=== PATIENT | male | born 1950 | race Caucasian/White ===

== ENCOUNTER → 2017-07-07 11:23 | Outpatient (CLI) | payer MEDICARE, SELFPAY ==
[2017-07-07 11:42] LABS: Add Manual Diff / Slide Review NO; Basophils Percent Auto 0.2 % (0-2); Hematocrit 35.6 % (41-53); Hemoglobin 11.8 g/dL (13.5-17.5); Lymphocytes Percent Auto 7.7 % (25-40); Mean Corpuscular Hemoglobin 31.3 PG (26-34); Mean Corpuscular Volume 94.8 fL (80-100); Monocytes Percent Auto 4.4 % (3-14); Neutrophils Absolute Auto 8400 /uL (3000-5900); Neutrophils Percent Auto 87.7 % (50-75); Platelet Count 168 X10^3/uL (150-400); Red Blood Cell Count 3.76 X10^6/uL (4.5-5.9); Red Cell Distribution Width 15.6 % (11.6-14.8); White Blood Cell Count 9.6 X10^3/uL (4.5-11.0)
[2017-07-07 12:41] VITALS: BP 138/64; PULSE 99; RESP 18; TEMP 36.7; O2SAT 96
[2017-07-07] MEDS: DARBEPOETIN 60 MCG/0.3 ML SYRINGE SUBCUT (12:43)
== END ==
PROVIDERS: Family Provider Family Medicine; PCP Family Medicine; Visit Provider Internal Medicine Hematology & Oncology
DX: N18.4 Chronic kidney disease, stage 4 (severe) (principal); D63.1 Anemia in chronic kidney disease
CPT/HCPCS: 36415; 85025; 96372; J0881

== ENCOUNTER → 2017-07-14 11:22 | Outpatient (CLI) | payer MEDICARE, SELFPAY ==
[2017-07-14 11:43] LABS: Add Manual Diff / Slide Review NO; Basophils Percent Auto 0.2 % (0-2); Hematocrit 35.8 % (41-53); Hemoglobin 11.7 g/dL (13.5-17.5); Lymphocytes Percent Auto 5.2 % (25-40); Mean Corpuscular HGB Conc 32.8 % (30-36); Mean Corpuscular Hemoglobin 31.1 PG (26-34); Mean Corpuscular Volume 94.8 fL (80-100); Monocytes Percent Auto 4.7 % (3-14); Neutrophils Absolute Auto 11000 /uL (3000-5900); Neutrophils Percent Auto 89.9 % (50-75); Platelet Count 213 X10^3/uL (150-400); Red Blood Cell Count 3.78 X10^6/uL (4.5-5.9); Red Cell Distribution Width 15.7 % (11.6-14.8); White Blood Cell Count 12.3 X10^3/uL (4.5-11.0)
[2017-07-14 12:07] VITALS: BP 148/58; PULSE 95; RESP 18; TEMP 36.7; O2SAT 97
[2017-07-14] MEDS: DARBEPOETIN 60 MCG/0.3 ML SYRINGE SUBCUT (12:09)
== END ==
PROVIDERS: Family Provider Family Medicine; PCP Family Medicine; Visit Provider Internal Medicine Hematology & Oncology
DX: N18.4 Chronic kidney disease, stage 4 (severe) (principal); D63.1 Anemia in chronic kidney disease
CPT/HCPCS: 85025; 96372; J0881

== ENCOUNTER → 2017-07-21 11:17 | Outpatient (CLI) | payer MEDICARE, MEDICAID, SELFPAY ==
[2017-07-21 11:40] LABS: Add Manual Diff / Slide Review NO; Basophils Percent Auto 0.6 % (0-2); Hematocrit 36.9 % (41-53); Hemoglobin 12.2 g/dL (13.5-17.5); Lymphocytes Percent Auto 14.1 % (25-40); Mean Corpuscular Hemoglobin 31.8 PG (26-34); Mean Corpuscular Volume 96.3 fL (80-100); Monocytes Percent Auto 10.1 % (3-14); Neutrophils Absolute Auto 5100 /uL (3000-5900); Neutrophils Percent Auto 75.2 % (50-75); Platelet Count 165 X10^3/uL (150-400); Red Blood Cell Count 3.83 X10^6/uL (4.5-5.9); White Blood Cell Count 6.8 X10^3/uL (4.5-11.0)
--- NOTE | 2017-07-21 14:51 | PC.NURSE ---
No Aranesp today, Hgb 12.2. Patient will return to clinic in one week for lab/possible Aranesp injection.
== END ==
PROVIDERS: Family Provider Family Medicine; PCP Family Medicine; Visit Provider Internal Medicine Hematology & Oncology
DX: N28.9 Disorder of kidney and ureter, unspecified (principal); D63.1 Anemia in chronic kidney disease
CPT/HCPCS: 85025

== ENCOUNTER → 2017-07-28 11:21 | Outpatient (CLI) | payer MEDICARE, MEDICAID, SELFPAY ==
[2017-07-28 11:43] LABS: Add Manual Diff / Slide Review NO; Basophils Percent Auto 0.4 % (0-2); Hematocrit 36.2 % (41-53); Lymphocytes Percent Auto 6.7 % (25-40); Mean Corpuscular HGB Conc 33.1 % (30-36); Mean Corpuscular Hemoglobin 31.5 PG (26-34); Mean Corpuscular Volume 95.2 fL (80-100); Monocytes Percent Auto 4.2 % (3-14); Neutrophils Absolute Auto 4700 /uL (3000-5900); Neutrophils Percent Auto 88.7 % (50-75); Platelet Count 181 X10^3/uL (150-400); Red Blood Cell Count 3.81 X10^6/uL (4.5-5.9); Red Cell Distribution Width 16.3 % (11.6-14.8); White Blood Cell Count 5.3 X10^3/uL (4.5-11.0)
== END ==
PROVIDERS: Family Provider Family Medicine; PCP Family Medicine; Visit Provider Internal Medicine Hematology & Oncology
DX: D63.1 Anemia in chronic kidney disease (principal); N18.4 Chronic kidney disease, stage 4 (severe)
CPT/HCPCS: 85025

== ENCOUNTER → 2017-08-04 11:22 | Outpatient (CLI) | payer MEDICARE, SELFPAY ==
[2017-08-04 11:36] LABS: Add Manual Diff / Slide Review NO; Basophils Percent Auto 0.6 % (0-2); Eosinophils Percent Auto 0.2 % (2-4); Hematocrit 35.6 % (41-53); Hemoglobin 11.9 g/dL (13.5-17.5); Lymphocytes Percent Auto 10.8 % (25-40); Mean Corpuscular HGB Conc 33.5 % (30-36); Mean Corpuscular Hemoglobin 32.1 PG (26-34); Mean Corpuscular Volume 95.8 fL (80-100); Monocytes Percent Auto 4.9 % (3-14); Neutrophils Absolute Auto 7200 /uL (3000-5900); Neutrophils Percent Auto 83.5 % (50-75); Platelet Count 237 X10^3/uL (150-400); Red Blood Cell Count 3.72 X10^6/uL (4.5-5.9); Red Cell Distribution Width 16.1 % (11.6-14.8); White Blood Cell Count 8.6 X10^3/uL (4.5-11.0)
[2017-08-04] MEDS: DARBEPOETIN 60 MCG/0.3 ML SYRINGE SUBCUT (12:02)
[2017-08-04 12:11] VITALS: BP 148/57; PULSE 101; RESP 16; TEMP 37.2; O2SAT 96
== END ==
PROVIDERS: Family Provider Family Medicine; PCP Family Medicine; Visit Provider Internal Medicine Hematology & Oncology
DX: N18.4 Chronic kidney disease, stage 4 (severe) (principal); D63.1 Anemia in chronic kidney disease
CPT/HCPCS: 36415; 85025; 96372; J0881

== ENCOUNTER → 2017-08-11 11:20 | Outpatient (CLI) | payer MEDICARE, SELFPAY ==
[2017-08-11 11:52] LABS: Add Manual Diff / Slide Review YES; Hematocrit 35.1 % (41-53); Hemoglobin 11.5 g/dL (13.5-17.5); Mean Corpuscular HGB Conc 32.9 % (30-36); Mean Corpuscular Volume 97.3 fL (80-100); Platelet Count 233 X10^3/uL (150-400); Red Blood Cell Count 3.61 X10^6/uL (4.5-5.9); Red Cell Distribution Width 16.5 % (11.6-14.8); White Blood Cell Count 9.7 X10^3/uL (4.5-11.0)
[2017-08-11 12:04] LABS: Neutrophils Absolute Manual 8439 /uL (3000-5900); RBC Morphology Normal Morphology; Total Cells Counted 100
[2017-08-11] MEDS: DARBEPOETIN 60 MCG/0.3 ML SYRINGE SUBCUT (12:32)
[2017-08-11 12:39] VITALS: BP 127/75; PULSE 90; RESP 16; TEMP 37.7; O2SAT 94
== END ==
PROVIDERS: Family Provider Family Medicine; PCP Family Medicine; Visit Provider Internal Medicine Hematology & Oncology
DX: N18.4 Chronic kidney disease, stage 4 (severe) (principal); D63.1 Anemia in chronic kidney disease; F32.9 Major depressive disorder, single episode, unspecified
CPT/HCPCS: 85025; 96372; J0881

== ENCOUNTER → 2017-08-18 11:19 | Outpatient (CLI) | payer MEDICARE, MEDICAID, SELFPAY ==
[2017-08-18 11:39] LABS: Add Manual Diff / Slide Review NO; Basophils Percent Auto 0.3 % (0-2); Eosinophils Percent Auto 0.1 % (2-4); Hematocrit 38.7 % (41-53); Hemoglobin 12.8 g/dL (13.5-17.5); Lymphocytes Percent Auto 4.9 % (25-40); Mean Corpuscular HGB Conc 33.1 % (30-36); Mean Corpuscular Hemoglobin 32.4 PG (26-34); Mean Corpuscular Volume 97.9 fL (80-100); Monocytes Percent Auto 4.2 % (3-14); Neutrophils Absolute Auto 8900 /uL (3000-5900); Neutrophils Percent Auto 90.5 % (50-75); Platelet Count 180 X10^3/uL (150-400); Red Blood Cell Count 3.95 X10^6/uL (4.5-5.9); White Blood Cell Count 9.8 X10^3/uL (4.5-11.0)
== END ==
PROVIDERS: Family Provider Family Medicine; PCP Family Medicine; Visit Provider Internal Medicine Hematology & Oncology
DX: N18.4 Chronic kidney disease, stage 4 (severe) (principal)
CPT/HCPCS: 85025

== ENCOUNTER → 2017-08-25 11:19 | Outpatient (CLI) | payer MEDICARE, MEDICAID, SELFPAY ==
[2017-08-25 11:35] LABS: Add Manual Diff / Slide Review NO; Basophils Percent Auto 0.4 % (0-2); Eosinophils Percent Auto 0.1 % (2-4); Hematocrit 38.1 % (41-53); Hemoglobin 12.4 g/dL (13.5-17.5); Lymphocytes Percent Auto 5.2 % (25-40); Mean Corpuscular HGB Conc 32.7 % (30-36); Mean Corpuscular Hemoglobin 32.6 PG (26-34); Mean Corpuscular Volume 99.8 fL (80-100); Monocytes Percent Auto 3.3 % (3-14); Neutrophils Absolute Auto 7800 /uL (3000-5900); Platelet Count 165 X10^3/uL (150-400); Red Blood Cell Count 3.82 X10^6/uL (4.5-5.9); Red Cell Distribution Width 16.3 % (11.6-14.8); White Blood Cell Count 8.6 X10^3/uL (4.5-11.0)
== END ==
PROVIDERS: Family Provider Family Medicine; PCP Family Medicine; Visit Provider Internal Medicine Hematology & Oncology
DX: N18.4 Chronic kidney disease, stage 4 (severe) (principal)
CPT/HCPCS: 85025

== ENCOUNTER → 2017-09-01 11:21 | Outpatient (CLI) | payer MEDICARE, MEDICAID, SELFPAY ==
[2017-09-01 11:33] LABS: Add Manual Diff / Slide Review NO; Basophils Percent Auto 0.6 % (0-2); Eosinophils Percent Auto 0.4 % (2-4); Hematocrit 38.4 % (41-53); Hemoglobin 12.6 g/dL (13.5-17.5); Lymphocytes Percent Auto 6.6 % (25-40); Mean Corpuscular HGB Conc 32.9 % (30-36); Mean Corpuscular Hemoglobin 32.6 PG (26-34); Monocytes Percent Auto 4.5 % (3-14); Neutrophils Absolute Auto 8800 /uL (3000-5900); Neutrophils Percent Auto 87.9 % (50-75); Platelet Count 214 X10^3/uL (150-400); Red Blood Cell Count 3.88 X10^6/uL (4.5-5.9)
== END ==
PROVIDERS: Family Provider Family Medicine; PCP Family Medicine; Visit Provider Internal Medicine Hematology & Oncology
DX: N18.4 Chronic kidney disease, stage 4 (severe) (principal)
CPT/HCPCS: 85025

== ENCOUNTER → 2017-09-08 11:23 | Outpatient (CLI) | payer MEDICARE, MEDICAID, SELFPAY ==
[2017-09-08 11:35] LABS: Add Manual Diff / Slide Review NO; Basophils Percent Auto 0.5 % (0-2); Eosinophils Percent Auto 0.2 % (2-4); Hematocrit 38.6 % (41-53); Hemoglobin 12.6 g/dL (13.5-17.5); Lymphocytes Percent Auto 6.2 % (25-40); Mean Corpuscular HGB Conc 32.7 % (30-36); Mean Corpuscular Hemoglobin 32.5 PG (26-34); Mean Corpuscular Volume 99.4 fL (80-100); Monocytes Percent Auto 3.5 % (3-14); Neutrophils Absolute Auto 10000 /uL (3000-5900); Neutrophils Percent Auto 89.6 % (50-75); Platelet Count 210 X10^3/uL (150-400); Red Blood Cell Count 3.89 X10^6/uL (4.5-5.9); Red Cell Distribution Width 16.2 % (11.6-14.8); White Blood Cell Count 11.2 X10^3/uL (4.5-11.0)
--- NOTE | 2017-09-08 11:41 | PC.NURSE ---
Noted hgb 12.6. Does not need Aranesp shot today. Parameter is to give injection if hgb > 12.
== END ==
PROVIDERS: Family Provider Family Medicine; PCP Family Medicine; Visit Provider Internal Medicine Hematology & Oncology
DX: N18.4 Chronic kidney disease, stage 4 (severe) (principal); D63.1 Anemia in chronic kidney disease
CPT/HCPCS: 36415; 85025

== ENCOUNTER → 2017-09-15 12:51 | Outpatient (CLI) | payer MEDICARE, SELFPAY ==
[2017-09-15 13:05] LABS: Add Manual Diff / Slide Review NO; Basophils Percent Auto 0.3 % (0-2); Eosinophils Percent Auto 0.6 % (2-4); Hematocrit 36.5 % (41-53); Hemoglobin 12.2 g/dL (13.5-17.5); Lymphocytes Percent Auto 8.7 % (25-40); Mean Corpuscular HGB Conc 33.5 % (30-36); Mean Corpuscular Hemoglobin 32.7 PG (26-34); Mean Corpuscular Volume 97.9 fL (80-100); Monocytes Percent Auto 8.4 % (3-14); Neutrophils Absolute Auto 7900 /uL (3000-5900); Platelet Count 187 X10^3/uL (150-400); Red Blood Cell Count 3.73 X10^6/uL (4.5-5.9); Red Cell Distribution Width 15.7 % (11.6-14.8); White Blood Cell Count 9.6 X10^3/uL (4.5-11.0)
[2017-09-15 13:23] VITALS: BP 144/81; PULSE 100; RESP 18; TEMP 36.1; O2SAT 94
--- NOTE | 2017-09-15 13:55 | ONC.APRN.PN ---
Assessment and Plan (1) Anemia associated with chronic renal failure Current visit: No Status: Acute 09/15/17 14:03 Cristóbal is a 66-year-old male who we follow in this clinic for anemia due to chronic kidney disease, stage IV. CBC today demonstrates a Hemoglobin 12.2 today, no indication for darbepoetin. Iron profile February of 2017 did not identify any iron deficiency. Advised the patient to call primary care provider Dr. Quintana to clarify prednisone order. He is reporting facial edema and new skin rash likely associated with prednisone. RTC in 3 weeks for cbc nurse visit , darbopoetin for hemoglobin less than 12.0. - Time Spent with Patient 35 mins PN -Subjective Interval history: DENTIFICATION: Mr. Tubbs is a 66-year-old gentleman with anemia secondary to chronic renal insufficiency. Currently on treatment with darbepoetin. INTERVAL HISTORY: He returns to clinic alone today. Was last seen here by Dr. Barber on 06/23/2017. He started on treatment with darbepoetin 04/20/2017 and so far has tolerated treatment well, he says. He denies any new chest pain, chest tightness, dyspnea, or headaches. He has been receiving treatment weekly and notes improvement in his overall energy and sense of well-being since starting the medication. He has some other chronic issues including DM II, neck pain, mild, secondary to an old traumatic injury; also peripheral edema and is followed closely for his other health issues by his primary physician, Dr. Quintana.Recently prescribed intermediate card tender prednisone for leg twitching Cristóbal reports some face swelling recently. Also reports increased energy level since starting prednisone. He seems to be fairly certain Dr Quintana prescribed prednisone 20mg daily for leg twitching. Cristóbal reports this has been effective for leg twitching. He also reports a new rash on his arms, not painful not itching. Closed. First noticed a week or so ago. Currently in PT for chronic pain and mobility issues. Denies chest pain, shortness of breath. No headaches. No new pain. Past Medical History The patient's past medical history is significant for: Stage IV chronic kidney disease Diabetes II using well controlled Chronic pain on narcotic dependence Hypertension Status post neck fracture with repair hardware still in place Status post perforation of bowel repaired with excision of a portion of colon Status post thoracic spine repair BPH with obstruction Obesity Results - Labs 09/15/17 13:01 Laboratory Last Values WBC 9.6 X10^3/uL (4.5-11.0) 09/15/17 13:01 RBC 3.73 X10^6/uL (4.5-5.9) L 09/15/17 13:01 Hgb 12.2 g/dL (13.5-17.5) L 09/15/17 13:01 Hct 36.5 % (41-53) L 09/15/17 13:01 MCV 97.9 fL (80-100) 09/15/17 13:01 MCH 32.7 PG (26-34) 09/15/17 13:01 MCHC 33.5 % (30-36) 09/15/17 13:01 RDW 15.7 % (11.6-14.8) H 09/15/17 13:01 Plt Count 187 X10^3/uL (150-400) 09/15/17 13:01 Neut % (Auto) 82.0 % (50-75) H 09/15/17 13:01 Lymph % (Auto) 8.7 % (25-40) L 09/15/17 13:01 [place] % (Auto) 8.4 % (3-14) 09/15/17 13:01 Eos % (Auto) 0.6 % (2-4) L 09/15/17 13:01 Baso % (Auto) 0.3 % (0-2) 09/15/17 13:01 Neut # (Auto) 7900 /uL ([id number]) H 09/15/17 13:01 - Imaging Additional studies: Procedures Closure of skin and subcutaneous tissue of other sites (08/29/13) Colonoscopy (06/05/13) Control Bleeding in Gastrointestinal Tract, Via Natural or Artificial Opening Endoscopic (08/26/16) Injection or infusion of other therapeutic or prophylactic substance (03/23/13) Other endoscopy of small intestine (06/05/13) Other nonoperative respiratory measurements (06/09/11) Total knee replacement (04/09/14) Transfusion of Nonautologous Red Blood Cells into Peripheral Vein, Percutaneous Approach (08/26/16) Transfusion of packed cells (07/09/13) Home Medications and Allergies Home Medications Medication Instructions Recorded Confirmed Type citalopram 20 mg PO QDAY #60 tab 08/31/16 Rx losartan 25 mg PO QDAY #60 08/31/16 Rx doxazosin 4 mg PO QDAY #0 01/18/17 History furosemide SEE INSTRUCTIONS #0 01/18/17 History glipizide 5 mg PO BIDAC #0 01/18/17 History hydrocodone-acetaminophen 1 - 2 tab PO PRN PRN #0 01/18/17 History prednisone 20 mg PO Q DAY #5 tab 05/01/17 Rx Allergies Allergy/AdvReac Type Severity Reaction Status Date / Time latex Allergy Mild IRRITATION Unverified 06/14/17 13:06 Sulfa (Sulfonamide AdvReac Mild N&V 1HOUR Unverified 06/14/17 13:06 Antibiotics) AFTER RX, THINKS IT IS RELATED Exam Vital signs: Last Vital Signs Temp 97 F L 09/15/17 13:23 Pulse 100 H 09/15/17 13:23 Resp 18 09/15/17 13:23 BP 144/81 H 09/15/17 13:23 Pulse Ox 94 09/15/17 13:23 Narrative: non toxic appearing, chronically ill appearing - Constitutional positive no acute distress, positive morbidly obese - Routine HEENT Exam Head: Present: cushingoid faces Eye: Present: conjunctivae pink. Absent: conjunctival icterus, scleral injection ENT: Present: mucous membranes moist, oropharynx clear - Routine Neck Exam Present: supple. Absent: lymphadenopathy - Routine Respiratory Exam Present: decreased breath sounds. Absent: rales, rhonchi, wheezes - Routine Cardiovascular Exam Present: RRR, S1, S2. Absent: tachycardia - Routine Abdominal Exam Present: soft, normoactive bowel sounds. Absent: tenderness, distended, organomegaly Comments: obese abdomen - Routine Extremities Exam Present: edema. Absent: calf tenderness Comments: symmetric bilateral lower ext edema. Per pt chronic - Routine Skin Exam Present: intact, normal turgor, rash. Absent: petechiae - Routine Neurological Exam Present: alert, oriented X3 - Routine Psychiatric Exam Present: normal affect
== END ==
PROVIDERS: Internal Medicine Hematology & Oncology; Family Provider Family Medicine; PCP Family Medicine; Visit Provider Internal Medicine Hematology & Oncology
DX: N18.4 Chronic kidney disease, stage 4 (severe) (principal); D63.1 Anemia in chronic kidney disease
CPT/HCPCS: 85025; 99214

== ENCOUNTER → 2017-10-26 14:35 | Outpatient (CLI) | payer MEDICARE, SELFPAY ==
[2017-10-26 14:58] LABS: Add Manual Diff / Slide Review NO; Basophils Percent Auto 0.4 % (0-2); Eosinophils Percent Auto 1.1 % (2-4); Hematocrit 29.5 % (41-53); Hemoglobin 10.1 g/dL (13.5-17.5); Lymphocytes Percent Auto 11.6 % (25-40); Mean Corpuscular HGB Conc 34.2 % (30-36); Mean Corpuscular Hemoglobin 34.7 PG (26-34); Mean Corpuscular Volume 101.6 fL (80-100); Monocytes Percent Auto 7.9 % (3-14); Neutrophils Absolute Auto 5600 /uL (3000-5900); Platelet Count 249 X10^3/uL (150-400); Red Cell Distribution Width 15.4 % (11.6-14.8); White Blood Cell Count 7.1 X10^3/uL (4.5-11.0)
[2017-10-26 15:11] LABS: Alanine Aminotransferase 22 IU/L (21-72); Albumin 4.1 g/dL (3.5-5.0); Albumin Globulin Ratio 1.7 (1.0-2.8); Alkaline Phosphatase 66 U/L (38-126); Aspartate Aminotransferase 44 IU/L (17-59); BUN Creatinine Ratio 20.4 (6-22); Bilirubin Total 0.7 mg/dL (0.2-1.3); Blood Urea Nitrogen 49 mg/dL (9-20); Calcium 9.1 mg/dL (8.4-10.2); Carbon Dioxide 29 mmol/L (22-32); Chloride 92 mmol/L (98-107); Estimated Glomerular Filt Rate 27.3 mL/min (>60); Globulin 2.4 g/dL (1.7-4.1); Glucose 130 mg/dL (80-110); HEMOLYSIS < 15 (0-50); Potassium 4.2 mmol/L (3.4-5.1); Sodium 134 mmol/L (137-145); Total Protein 6.5 g/dL (6.3-8.2)
--- NOTE | 2017-10-26 15:15 | P.PNONC_ITS ---
Assessment and Plan (1) Anemia associated with chronic renal failure Current visit: No Status: Acute 10/26/17 15:15 Cristóbal is a very pleasant chronically disabled 66-year-old male with progressive normochromic normocytic anemia due to chronic renal insufficiency. He has been receiving Aranesp injections in this clinic since April of 2017. Since receiving the injections the pt reports he is definitely feeling better and I have more energy. Thus far he has received 60 mg July 07, July 14, July 21, August 04, August 11, October 05, 2017. Hemoglobin was greater than 12 until visit October 05, 2017 where it dropped to 10.5. Today CBC demonstrates hemoglobin of 10.1 hematocrit of 29.5. Creatinine 2.4 which is the patient's baseline. The patient will received carboplatin 60 mg subcutaneous today. We will continue with weekly darbopoeitin injections SQ 60mg for HGB <12.0 CBC every other week per pt request. RTC in 4 weeks for provider visit cbc cmp. Patient verbalizes understanding and agrees with the above plan of care. 10/26/17 15:40 PN -Subjective Interval history: The patient is a 66 year old Male who is being seen in the clinic 10/26/2017 for evaluation of progressive normochromic normocytic anemia due to chronic renal insufficiency. He has been receiving Aranesp injections in this clinic since April of 2017. Since receiving the injections the pt reports he is definitely feeling better and I have more energy. Thus far he has received 60 mg July 07, July 14, July 21, August 04, August 11, October 05, 2017. Hemoglobin was greater than 12 until visit October 05, 2017 where it dropped to 10.5. Otherwise no complaints. No chest pain, shortness of breath. No dizziness or lightheadedness. No unexplained bleeding or bruising. No blood noted in stool , no black or tarry stools. Patient does have comorbidities including type 2 diabetes, chronic neck pain secondary to old traumatic injury, history of chronic alcohol use, hypertension , obesity, peripheral neuropathy. Dr willard is PCP. Results - Labs Laboratory Last Values WBC 7.1 X10^3/uL (4.5-11.0) 10/26/17 14:46 RBC 2.90 X10^6/uL (4.5-5.9) L 10/26/17 14:46 Hgb 10.1 g/dL (13.5-17.5) L 10/26/17 14:46 Hct 29.5 % (41-53) L 10/26/17 14:46 MCV 101.6 fL (80-100) H 10/26/17 14:46 MCH 34.7 PG (26-34) H 10/26/17 14:46 MCHC 34.2 % (30-36) 10/26/17 14:46 RDW 15.4 % (11.6-14.8) H 10/26/17 14:46 Plt Count 249 X10^3/uL (150-400) 10/26/17 14:46 Neut % (Auto) 79.0 % (50-75) H 10/26/17 14:46 Lymph % (Auto) 11.6 % (25-40) L 10/26/17 14:46 [place] % (Auto) 7.9 % (3-14) 10/26/17 14:46 Eos % (Auto) 1.1 % (2-4) L 10/26/17 14:46 Baso % (Auto) 0.4 % (0-2) 10/26/17 14:46 Neut # (Auto) 5600 /uL ([id number]) 10/26/17 14:46 - Imaging Additional studies: Procedures Closure of skin and subcutaneous tissue of other sites (08/29/13) Colonoscopy (06/05/13) Control Bleeding in Gastrointestinal Tract, Via Natural or Artificial Opening Endoscopic (08/26/16) Injection or infusion of other therapeutic or prophylactic substance (03/23/13) Other endoscopy of small intestine (06/05/13) Other nonoperative respiratory measurements (06/09/11) Total knee replacement (04/09/14) Transfusion of Nonautologous Red Blood Cells into Peripheral Vein, Percutaneous Approach (08/26/16) Transfusion of packed cells (07/09/13) Home Medications and Allergies Home Medications Medication Instructions Recorded Confirmed Type citalopram 20 mg PO QDAY #60 tab 08/31/16 Rx losartan 25 mg PO QDAY #60 08/31/16 Rx doxazosin 4 mg PO QDAY #0 01/18/17 History furosemide SEE INSTRUCTIONS #0 01/18/17 History glipizide 5 mg PO BIDAC #0 01/18/17 History hydrocodone-acetaminophen 1 - 2 tab PO PRN PRN #0 01/18/17 History Allergies Allergy/AdvReac Type Severity Reaction Status Date / Time latex Allergy Mild IRRITATION Unverified 06/14/17 13:06 Sulfa (Sulfonamide AdvReac Mild N&V 1HOUR Unverified 06/14/17 13:06 Antibiotics) AFTER RX, THINKS IT IS RELATED Exam - Constitutional positive no acute distress, positive obese, positive chronically ill appearing - Routine HEENT Exam Head: Present: normocephalic, atraumatic Eye: Present: conjunctivae pink. Absent: conjunctival icterus, scleral injection - Routine Respiratory Exam Present: Clear to auscultation bilaterally, decreased breath sounds. Absent: rales, rhonchi, wheezes - Routine Cardiovascular Exam Present: RRR, S1, S2. Absent: murmur, gallop, rubs, JVD - Routine Abdominal Exam Present: soft, normoactive bowel sounds. Absent: tenderness, distended, organomegaly - Routine Extremities Exam Present: edema. Absent: calf tenderness - Routine Neurological Exam Present: alert, oriented X3 - Routine Psychiatric Exam Present: normal affect
[2017-10-26 15:27] VITALS: BP 119/59; PULSE 88; RESP 18; TEMP 36.6; O2SAT 95
[2017-10-26] MEDS: DARBEPOETIN 60 MCG/0.3 ML SYRINGE SUBCUT (16:22)
== END ==
PROVIDERS: Family Provider Family Medicine; PCP Family Medicine; Visit Provider Nurse Practitioner Gerontology
DX: E11.22 Type 2 diabetes mellitus with diabetic chronic kidney disease (principal); N18.4 Chronic kidney disease, stage 4 (severe); D63.1 Anemia in chronic kidney disease
CPT/HCPCS: 36415; 80053; 85025; 96372; 99214; J0881

== ENCOUNTER → 2017-11-02 11:51 | Outpatient (CLI) | payer MEDICARE, SELFPAY ==
[2017-11-02 12:23] VITALS: BP 114/53; PULSE 99; RESP 18; TEMP 36.9; O2SAT 95
[2017-11-02] MEDS: DARBEPOETIN 60 MCG/0.3 ML SYRINGE SUBCUT (12:23)
== END ==
PROVIDERS: Family Provider Family Medicine; PCP Family Medicine; Visit Provider Nurse Practitioner Gerontology
DX: E11.22 Type 2 diabetes mellitus with diabetic chronic kidney disease (principal); N18.4 Chronic kidney disease, stage 4 (severe); I12.9 Hypertensive chronic kidney disease with stage 1 through stage 4 chronic kidney disease, or unspecified chronic kidney disease; D63.1 Anemia in chronic kidney disease
CPT/HCPCS: 96372; J0881

== ENCOUNTER → 2017-11-09 12:51 | Outpatient (CLI) | payer MEDICARE, SELFPAY ==
[2017-11-09 13:20] LABS: Add Manual Diff / Slide Review NO; Basophils Percent Auto 0.5 % (0-2); Eosinophils Percent Auto 0.4 % (2-4); Hemoglobin 11.3 g/dL (13.5-17.5); Lymphocytes Percent Auto 8.1 % (25-40); Mean Corpuscular HGB Conc 33.3 % (30-36); Mean Corpuscular Hemoglobin 35.1 PG (26-34); Mean Corpuscular Volume 105.5 fL (80-100); Monocytes Percent Auto 8.9 % (3-14); Neutrophils Absolute Auto 4900 /uL (3000-5900); Neutrophils Percent Auto 82.1 % (50-75); Platelet Count 207 X10^3/uL (150-400); Red Blood Cell Count 3.22 X10^6/uL (4.5-5.9)
[2017-11-09 14:00] VITALS: BP 127/68; PULSE 95; RESP 18; TEMP 36.6; O2SAT 96
[2017-11-09] MEDS: DARBEPOETIN 60 MCG/0.3 ML SYRINGE SUBCUT (14:02)
== END ==
PROVIDERS: Family Provider Family Medicine; PCP Family Medicine; Visit Provider Nurse Practitioner Gerontology
DX: E11.22 Type 2 diabetes mellitus with diabetic chronic kidney disease (principal); I12.9 Hypertensive chronic kidney disease with stage 1 through stage 4 chronic kidney disease, or unspecified chronic kidney disease; N18.4 Chronic kidney disease, stage 4 (severe); D63.1 Anemia in chronic kidney disease
CPT/HCPCS: 36415; 85025; 96372; J0881

== ENCOUNTER → 2017-11-16 12:50 | Outpatient (CLI) | payer MEDICARE, SELFPAY ==
[2017-11-16] MEDS: DARBEPOETIN 60 MCG/0.3 ML SYRINGE SUBCUT (13:12)
[2017-11-16 13:13] VITALS: BP 123/67; PULSE 78; RESP 20; TEMP 36.9; O2SAT 95
== END ==
PROVIDERS: Family Provider Family Medicine; PCP Family Medicine; Visit Provider Nurse Practitioner Gerontology
DX: E11.22 Type 2 diabetes mellitus with diabetic chronic kidney disease (principal); I12.9 Hypertensive chronic kidney disease with stage 1 through stage 4 chronic kidney disease, or unspecified chronic kidney disease; N18.4 Chronic kidney disease, stage 4 (severe); D63.1 Anemia in chronic kidney disease
CPT/HCPCS: 96372; J0881

== ENCOUNTER → 2017-11-23 12:45 | Outpatient (CLI) | payer MEDICARE, SELFPAY ==
[2017-11-23 13:14] VITALS: BP 137/71; PULSE 86; RESP 18; TEMP 36.7; O2SAT 98
[2017-11-23 13:24] LABS: Add Manual Diff / Slide Review NO; Basophils Percent Auto 0.6 % (0-2); Hematocrit 37.6 % (41-53); Hemoglobin 12.4 g/dL (13.5-17.5); Mean Corpuscular Hemoglobin 35.5 PG (26-34); Mean Corpuscular Volume 107.3 fL (80-100); Monocytes Percent Auto 9.7 % (3-14); Neutrophils Absolute Auto 3900 /uL (3000-5900); Neutrophils Percent Auto 75.7 % (50-75); Platelet Count 201 X10^3/uL (150-400); Red Cell Distribution Width 14.9 % (11.6-14.8); White Blood Cell Count 5.2 X10^3/uL (4.5-11.0)
--- NOTE | 2017-11-23 13:29 | ONC.PN ---
PN -Subjective Interval history: CHIEF COMPLAINT Anemia of chronic kidney disease on Aranesp INTERIM EVENTS Patient overall has been doing very well. Patient denies any bleeding events, and denies any new onset problem. He denies any new pain. He has been checking CBC regularly with injection of Aranesp. Patient has had a Aranesp injection about a week ago. HISTORY OF PRESENT ILLNESS Cristóbal Grover is a 67-year-old gentleman. He has extensive medical problems including chronic kidney disease, type 2 diabetes, chronic pain on narcotic dependence, hypertension, neck fracture with repair hardware, laparotomy for perforation of bowel and status post thoracic spine repair. Patient was followed at our clinic because of anemia chronic kidney disease requiring an Aranesp injection. - Patient Self-Reported Symptoms SR Constitution: Fatigue/Malaise SR Neuro issues: Difficulty balancing - Additional ROS All systems PM: reviewed and no additional remarkable complaints except as stated Home Medications and Allergies Home Medications Medication Instructions Recorded Confirmed Type citalopram 20 mg PO QDAY #60 tab 08/31/16 Rx losartan 25 mg PO QDAY #60 08/31/16 Rx doxazosin 4 mg PO QDAY #0 01/18/17 History furosemide SEE INSTRUCTIONS #0 01/18/17 History glipizide 5 mg PO BIDAC #0 01/18/17 History hydrocodone-acetaminophen 1 - 2 tab PO PRN PRN #0 01/18/17 History Allergies Allergy/AdvReac Type Severity Reaction Status Date / Time latex Allergy Mild IRRITATION Unverified 06/14/17 13:06 Sulfa (Sulfonamide AdvReac Mild N&V 1HOUR Unverified 06/14/17 13:06 Antibiotics) AFTER RX, THINKS IT IS RELATED Exam Vital signs: Last Vital Signs Temp 98.0 F 11/23/17 13:14 Pulse 86 11/23/17 13:14 Resp 18 11/23/17 13:14 BP 137/71 11/23/17 13:14 Pulse Ox 98 11/23/17 13:14 - Constitutional positive no acute distress, positive morbidly obese, positive cooperative - Routine HEENT Exam Head: Present: normocephalic, atraumatic Eye: Present: EOMI, PERRL, normal accommodation. Absent: conjunctival icterus ENT: Present: mucous membranes moist - Routine Neck Exam Present: supple. Absent: lymphadenopathy - Routine Respiratory Exam Present: Clear to auscultation bilaterally - Routine Cardiovascular Exam Present: RRR, S1, S2. Absent: murmur, gallop, rubs - Routine Abdominal Exam Present: soft, normoactive bowel sounds. Absent: tenderness, distended Palpation/Percussion: Absent: hepatomegaly, splenomegaly - Routine Extremities Exam Absent: edema - Routine Neurological Exam Present: alert, oriented X3, CN II-XII intact, normal speech. Absent: sensory deficit, motor deficit - Routine Psychiatric Exam Present: normal affect, normal thought process, cooperative, good judgment Results - Labs Laboratory Last Values WBC 5.2 X10^3/uL (4.5-11.0) 11/23/17 12:52 RBC 3.50 X10^6/uL (4.5-5.9) L 11/23/17 12:52 Hgb 12.4 g/dL (13.5-17.5) L 11/23/17 12:52 Hct 37.6 % (41-53) L 11/23/17 12:52 MCV 107.3 fL (80-100) H 11/23/17 12:52 MCH 35.5 PG (26-34) H 11/23/17 12:52 MCHC 33.0 % (30-36) 11/23/17 12:52 RDW 14.9 % (11.6-14.8) H 11/23/17 12:52 Plt Count 201 X10^3/uL (150-400) 11/23/17 12:52 Neut % (Auto) 75.7 % (50-75) H 11/23/17 12:52 Lymph % (Auto) 13.0 % (25-40) L 11/23/17 12:52 [place] % (Auto) 9.7 % (3-14) 11/23/17 12:52 Eos % (Auto) 1.0 % (2-4) L 11/23/17 12:52 Baso % (Auto) 0.6 % (0-2) 11/23/17 12:52 Neut # (Auto) 3900 /uL ([id number]) 11/23/17 12:52 - Imaging Additional studies: Procedures Closure of skin and subcutaneous tissue of other sites (08/29/13) Colonoscopy (06/05/13) Control Bleeding in Gastrointestinal Tract, Via Natural or Artificial Opening Endoscopic (08/26/16) Injection or infusion of other therapeutic or prophylactic substance (03/23/13) Other endoscopy of small intestine (06/05/13) Other nonoperative respiratory measurements (06/09/11) Total knee replacement (04/09/14) Transfusion of Nonautologous Red Blood Cells into Peripheral Vein, Percutaneous Approach (08/26/16) Transfusion of packed cells (07/09/13) Assessment and Plan (1) Anemia associated with chronic renal failure Current visit: Yes Status: Chronic I reviewed the laboratory results with the patient. Patient's hemoglobin level is more than 12 today. I do not think he is going to need any injection soon. I explained to the patient that our goal is trying to keep the hemoglobin level between 10 and 11. I usually start giving Aranesp when hemoglobin level drops below 11 and close to 10. Patient voiced understanding. And I will see the patient in about 1 month and repeat CBC.
[2017-11-23 13:35] LABS: Alanine Aminotransferase 20 IU/L (21-72); Albumin 4.1 g/dL (3.5-5.0); Albumin Globulin Ratio 1.6 (1.0-2.8); Alkaline Phosphatase 60 U/L (38-126); Aspartate Aminotransferase 25 IU/L (17-59); BUN Creatinine Ratio 21.5 (6-22); Bilirubin Total 0.9 mg/dL (0.2-1.3); Blood Urea Nitrogen 43 mg/dL (9-20); Calcium 9.2 mg/dL (8.4-10.2); Carbon Dioxide 31 mmol/L (22-32); Chloride 94 mmol/L (98-107); Estimated Glomerular Filt Rate 33.6 mL/min (>60); Globulin 2.6 g/dL (1.7-4.1); Glucose 140 mg/dL (80-110); HEMOLYSIS < 15 (0-50); Potassium 4.1 mmol/L (3.4-5.1); Sodium 139 mmol/L (137-145); Total Protein 6.7 g/dL (6.3-8.2)
== END ==
PROVIDERS: Nurse Practitioner Gerontology; Family Provider Family Medicine; PCP Family Medicine; Visit Provider Internal Medicine Hematology & Oncology
DX: D63.1 Anemia in chronic kidney disease (principal)
CPT/HCPCS: 36415; 80053; 85025; 99214

== ENCOUNTER 2017-12-25 11:17 | Emergency (ER) | payer MEDICARE, SELFPAY ==
--- NOTE | 2017-12-25 11:18 | ED.FALL ---
HPI - Fall General Stated Complaint: GLF Time Seen by Provider: 12/25/17 11:18
[2017-12-25 11:25] VITALS: BP 191/104; PULSE 111; RESP 20; TEMP 36.7; O2SAT 96; BMI 38.0
--- NOTE | 2017-12-25 11:41 | DI.CT.S_ITS ---
PROCEDURE: CT HEAD/BRAIN WO CON INDICATIONS: Fall with neck pain TECHNIQUE: Noncontrast 4.5 mm thick angled axial sections acquired from the foramen magnum to the vertex, with coronal and sagittal reformats. For radiation dose reduction, the following was used: automated exposure control, adjustment of mA and/or kV according to patient size. COMPARISON: [facility], CT, HEAD WITHOUT CONTRAST, 03/22/2013, 23:49. FINDINGS: Image quality: Mild motion. CSF spaces: Basal cisterns are patent. No extra-axial fluid collections. The ventricles demonstrate mild prominence in relation to gyral and sulcal atrophy, unchanged. As previously noted, recommend correlation to potential normal pressure hydrocephalus. Brain: No intracranial bleeds or masses. There is cerebral volume loss for age, with resultant ventricular and sulcal prominence. There are periventricular and deep white matter chronic small vessel ischemic changes. There is intracranial internal carotid artery atherosclerosis. Skull and face: Calvarium and visualized facial bones appear intact, without suspicious lesions. Sinuses: Visualized sinuses are clear. 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 IMPRESSION: 1. No acute intracranial process. 2. Mild to moderate atrophy and chronic microvascular ischemic changes. Dictated by: Ayanna Lux M.D. on 12/25/2017 at 11:48 Approved by: Ayanna Lux M.D. on 12/25/2017 at 11:52
--- NOTE | 2017-12-25 11:41 | DI.CT.S_ITS ---
PROCEDURE: CT CERVICAL SPINE WO CON INDICATIONS: Fall with neck pain TECHNIQUE: Noncontrast 3 mm thick sections acquired from the skull base to the T4 level. Sagittal and coronal reformats were then constructed. For radiation dose reduction, the following was used: automated exposure control, adjustment of mA and/or kV according to patient size. COMPARISON: [facility], CT, C-SPINE WITHOUT CONTRAST, 01/24/2017, 11:09. FINDINGS: Image quality: Multilevel susceptibility artifact is present from metallic surgical hardware, limiting areas of fine detail evaluation. Bones: No fractures or dislocations. Visualized superior ribs are intact. C2-T2 posterior fusion is present. Hardware appears intact and unchanged compared to prior exam. Multilevel degenerative changes are also present. Soft tissues: Prevertebral soft tissues are normal in thickness. No paravertebral hematomas. No apical pneumothoraces. IMPRESSION: 1. Postsurgical and degenerative changes without visualized fracture. Dictated by: Ayanna Lux M.D. on 12/25/2017 at 11:52 Approved by: Ayanna Lux M.D. on 12/25/2017 at 11:54
[2017-12-25 12:07] VITALS: BP 159/72; PULSE 99; RESP 17; O2SAT 95
--- NOTE | 2017-12-25 12:08 | ED.FALL ---
HPI - Fall <Serina Mott PA-C - Last Filed: 12/25/17 21:38> General Chief Complaint: Fall Stated Complaint: GLF Time Seen by Provider: 12/25/17 11:18 Source: patient Mode of arrival: EMS Limitations: no limitations History of Present Illness HPI Narrative: This 67-year-old gentleman was brought in by EMS after a ground level fall. He states that he was actually coming to the hospital for an appointment, was walking from his car with his walker, remembers getting his front walker wheels over the curb, and thinks his back wheels got hung up because he remembers tripping and falling backwards. He states that he does not think that he passed out. He states that he remembers somebody coming over to help him sit up. He states that he vomited once when EMS was bringing him here, none otherwise. He states that currently, he does not have any nausea. He has not had any vision change. He does not have a headache, but states that the left side of his neck and shoulder are sore. He denies any new pain,weakness or paresthesia in his extremities since he fell aside from sore L. shoulder area. He states that he is having difficulty remembering what he was coming to the hospital for this morning. Related Data Home Medications Medication Instructions Recorded Confirmed doxazosin 4 mg PO BEDTIME #0 01/18/17 12/25/17 glipizide 5 mg PO BIDAC #0 01/18/17 12/25/17 hydrocodone-acetaminophen 1 - 2 tab PO PRN PRN #0 01/18/17 12/25/17 allopurinol 100 mg PO BID 12/25/17 12/25/17 citalopram 40 mg PO QDAY 12/25/17 12/25/17 furosemide 2 tab PO BID 12/25/17 12/25/17 pantoprazole 1 tab PO DAILY 12/25/17 12/25/17 polyethylene glycol 3350 17 g PO DAILY PRN 12/25/17 12/25/17 Previous Rx's Medication Instructions Recorded losartan 25 mg PO QDAY #60 08/31/16 Allergies Allergy/AdvReac Type Severity Reaction Status Date / Time latex Allergy Mild IRRITATION Unverified 06/14/17 13:06 Sulfa (Sulfonamide AdvReac Mild N&V 1HOUR Unverified 06/14/17 13:06 Antibiotics) AFTER RX, THINKS IT IS RELATED Review of Systems <Serina Mott PA-C - Last Filed: 12/25/17 21:38> Review of Systems All systems reviewed & are unremarkable except as noted in HPI and below Exam <Serina Mott PA-C - Last Filed: 12/25/17 21:38> Narrative Exam Narrative: GENERAL APPEARANCE: Patient sitting comfortably, in no distress. HEENT: PERRL, EOMI, normal ear canals, nasal mucosa, and oropharynx NECK: Supple LUNGS: Clear to auscultation bilaterally. HEART: Rate and rhythm regular without murmur, normal S1 and S2, no S3 or S4. ABDOMEN: Soft, NT, ND, + BS x 4 quadrants NEUROLOGIC: Alert, patient able to recall fall just prior to arriving here, but initially difficulty recalling some medications and events from earlier in the day MUSCULOSKELETAL: No point tenderness over the cervical, thoracic, or lumbar spine. Mildly reduced C-spine ROM in [place]. Tender over the left mid to distal cervical musculature as well as throughout the mid to upper left trapezius musculature. Full range of motion of the left shoulder. DERMATOLOGIC: Superficial abrasions and small hematoma on the occiput, and also on the left shoulder and upper extremity with patchy ecchymoses. None actively bleeding. Initial Vital Signs Initial Vital Signs: Vital Signs Temperature 98.1 F 12/25/17 11:25 Pulse Rate 111 H 12/25/17 11:25 Respiratory Rate 20 12/25/17 11:25 Blood Pressure 191/104 H 12/25/17 11:25 Pulse Oximetry 96 12/25/17 11:25 <Jim Bal DO - Last Filed: 12/28/17 07:26> Initial Vital Signs Initial Vital Signs: Vital Signs Temperature 98.1 F 12/25/17 11:25 Pulse Rate 111 H 12/25/17 11:25 Respiratory Rate 20 12/25/17 11:25 Blood Pressure 191/104 H 12/25/17 11:25 Pulse Oximetry 96 12/25/17 11:25 Course <ANATOLY Perea Last Filed: 12/25/17 21:38> Additional Information: Patient continued to improve in terms of his memory during his stay here, and was feeling significantly improved. Advised that there are no acute findings on imaging studies. He did not feel any x-ray or imaging of his shoulder was needed. He did not have any headache, vomiting, or vision change. He felt comfortable returning home, continuing his usual medications, and agreed to return here if any acutely worsening symptoms. Otherwise he will follow up with his PCP for recheck this week. Orders Ordered: Discontinued Medications Hydrocodone Bitart/Acetaminophen ([place] 5/325) 2 tab PO NOW ONE Stop: 12/25/17 12:24 Last Admin: 12/25/17 12:38 Dose: 2 tab Sodium Chloride (Normal Saline 0.9%) 1,000 mls @ 1,000 mls/hr IV BOLUS ONE Stop: 12/25/17 13: Last Infusion: 12/25/17 15:03 Dose: 0 mls/hr Admin: 12/25/17 12:39 Dose: 1,000 mls/hr Vital Signs - 8 hr 12/25/17 11:25 12/25/17 12:07 Temperature 98.1 F Pulse Rate 111 H 99 H Respiratory Rate 20 17 Blood Pressure 191/104 H Blood Pressure [Left Arm] 159/72 H Pulse Oximetry 96 95 <Jim Bal DO - Last Filed: 12/28/17 07:26> Orders Ordered: Discontinued Medications Hydrocodone Bitart/Acetaminophen ([place] 5/325) 2 tab PO NOW ONE Stop: 12/25/17 12:24 Last Admin: 12/25/17 12:38 Dose: 2 tab Sodium Chloride (Normal Saline 0.9%) 1,000 mls @ 1,000 mls/hr IV BOLUS ONE Stop: 12/25/17 13:22 Last Infusion: 12/25/17 15:03 Dose: 0 mls/hr Admin: 12/25/17 12:39 Dose: 1,000 mls/hr Vital Signs - 8 hr 12/25/17 11:25 12/25/17 12:07 Temperature 98.1 F Pulse Rate 111 H 99 H Respiratory Rate 20 17 Blood Pressure 191/104 H Blood Pressure [Left Arm] 159/72 H Pulse Oximetry 96 95 MDM - Fall <Serina Mott PA-C - Last Filed: 12/25/17 21:38> Lab Data Attestation: I reviewed the patient's lab results. Result diagrams: 12/25/17 12:27 12/25/17 12:27 Lab Results 12/25/17 12/25/17 Range/Units 12:27 12:27 WBC 8.0 (4.5-11.0) X10^3/uL RBC 3.74 L (4.5-5.9) X10^6/uL Hgb 13.0 L (13.5-17.5) g/dL Hct 38.5 L (41-53) % MCV 102.9 H (80-100) fL MCH 34.7 H (26-34) PG MCHC 33.8 (30-36) % RDW 13.0 (11.6-14.8) % Plt Count 194 (150-400) X10^3/uL Neut % (Auto) 82.9 H (50-75) % Lymph % (Auto) 8.7 L (25-40) % [place] % (Auto) 7.2 (3-14) % Eos % (Auto) 0.6 L (2-4) % Baso % (Auto) 0.6 (0-2) % Neut # (Auto) 6600 H (4476-8754) /uL Sodium 136 L (137-145) mmol/L Potassium 4.4 (3.4-5.1) mmol/L Chloride 92 L (98-107) mmol/L Carbon Dioxide 34 H (22-32) mmol/L BUN 54 H (9-20) mg/dL Creatinine 2.20 H (0.66-1.25) mg/dL Estimated GFR 30.1 L (>60) mL/min BUN/Creatinine Ratio 24.5 H (6-22) Glucose 184 H (80-110) mg/dL Calcium 9.0 (8.4-10.2) mg/dL Imaging Data CT scan - head: Radiologist's impression: [address] [address] [address] Scan Report Signed Patient: Cristóbal Tubbs WMR#: [id number] : 2Acct:[id number] Age/Sex: 67 / MDate of Service: 12/25/17 Loc: ED Accession Number: [id number] Procedure: CT head/brain wo con Ordering Provider: Jim Bal D.O. PROCEDURE: CT HEAD/BRAIN WO CON INDICATIONS: Fall with neck pain TECHNIQUE: Noncontrast 4.5 mm thick angled axial sections acquired from the foramen magnum to the vertex, with coronal and sagittal reformats. For radiation dose reduction, the following was used: automated exposure control, adjustment of mA and/or kV according to patient size. COMPARISON: [facility], CT, HEAD WITHOUT CONTRAST, 03/22/2013, 23:49. FINDINGS: Image quality: Mild motion. CSF spaces: Basal cisterns are patent. No extra-axial fluid collections. The ventricles demonstrate mild prominence in relation to gyral and sulcal atrophy, unchanged. As previously noted, recommend correlation to potential normal pressure hydrocephalus. Brain: No intracranial bleeds or masses. There is cerebral volume loss for age, with resultant ventricular and sulcal prominence. There are periventricular and deep white matter chronic small vessel ischemic changes. There is intracranial internal carotid artery atherosclerosis. Skull and face: Calvarium and visualized facial bones appear intact, without suspicious lesions. Sinuses: Visualized sinuses are clear. 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 IMPRESSION: 1. No acute intracranial process. 2. Mild to moderate atrophy and chronic microvascular ischemic changes. Dictated by: Ayanna Lux M.D. on 12/25/2017 at 11:48 Approved by: Ayanna Lux M.D. on 12/25/2017 at 11:52 neck: Radiologist's impression: [place] [address] CT Scan Report Signed Patient: Cristóbal Tubbs WMR#: [id number] : 2Acct:[id number] Age/Sex: 67 / MDate of Service: 12/25/17 Loc: ED Accession Number: [id number] Procedure: CT cervical spine wo con Ordering Provider: Jim Bal D.O. PROCEDURE: CT CERVICAL SPINE WO CON INDICATIONS: Fall with neck pain TECHNIQUE: Noncontrast 3 mm thick sections acquired from the skull base to the T4 level. Sagittal and coronal reformats were then constructed. For radiation dose reduction, the following was used: automated exposure control, adjustment of mA and/or kV according to patient size. COMPARISON: [facility], CT, C-SPINE WITHOUT CONTRAST, 01/24/2017, 11:09. FINDINGS: Image quality: Multilevel susceptibility artifact is present from metallic surgical hardware, limiting areas of fine detail evaluation. Bones: No fractures or dislocations. Visualized superior ribs are intact. C2-T2 posterior fusion is present. Hardware appears intact and unchanged compared to prior exam. Multilevel degenerative changes are also present. Soft tissues: Prevertebral soft tissues are normal in thickness. No paravertebral hematomas. No apical pneumothoraces. IMPRESSION: 1. Postsurgical and degenerative changes without visualized fracture. Dictated by: Ayanna Lux M.D. on 12/25/2017 at 11:52 Approved by: Ayanna Lux M.D. on 12/25/2017 at 11:54 ECG Data Attestation: I personally reviewed and interpreted this ECG as follows: (sinus tach, rate 108, nl axis) <Jim Bal DO - Last Filed: 12/28/17 07:26> Lab Data Lab Results 12/25/17 12/25/17 Range/Units 12:27 12:27 WBC 8.0 (4.5-11.0) X10^3/uL RBC 3.74 L (4.5-5.9) X10^6/uL Hgb 13.0 L (13.5-17.5) g/dL Hct 38.5 L (41-53) % MCV 102.9 H (80-100) fL MCH 34.7 H (26-34) PG MCHC 33.8 (30-36) % RDW 13.0 (11.6-14.8) % Plt Count 194 (150-400) X10^3/uL Neut % (Auto) 82.9 H (50-75) % Lymph % (Auto) 8.7 L (25-40) % [place] % (Auto) 7.2 (3-14) % Eos % (Auto) 0.6 L (2-4) % Baso % (Auto) 0.6 (0-2) % Neut # (Auto) 6600 H (5441-0485) /uL Sodium 136 L (137-145) mmol/L Potassium 4.4 (3.4-5.1) mmol/L Chloride 92 L (98-107) mmol/L Carbon Dioxide 34 H (22-32) mmol/L BUN 54 H (9-20) mg/dL Creatinine 2.20 H (0.66-1.25) mg/dL Estimated GFR 30.1 L (>60) mL/min BUN/Creatinine Ratio 24.5 H (6-22) Glucose 184 H (80-110) mg/dL Calcium 9.0 (8.4-10.2) mg/dL Discharge Plan Departure Patient Disposition: Home Clinical Impression: Concussion, Strain of left shoulder Discharge Date/Time: 12/25/17 15:03 Interventions: ED Discharge Assessment Last Done: 12/25/17 15:03 Instructions: DI for Concussion, DI for Shoulder Sprain Activity Restrictions/Additional Instructions: Please return as we talked about if you have new symptoms such as severe headache, vision change, new weakness or numbness in your arms or legs or recurrent vomiting. You do have a concussion, and it is likely to take some time for you to get back to normal in terms of your concentration and being able to tolerate daily activities, so please rest and also avoid heavy ?mental? exertion such as screen time and studying. Please follow-up with your PCP for recheck in a few days. I think you hit and strained your shoulder and neck area as well. Gentle range of motion is fine for your shoulder and you can take your usual pain medicines. We did let the cancer center know that you were here today regarding or missed appointment. Your labs had actually improved today, so please call them tomorrow regarding when to reschedule. Prescriptions: No Action losartan 25 MG tablet 25 mg PO QDAY Qty: 60 RF: 0 doxazosin 4 MG tablet 4 mg PO BEDTIME Qty: 0 RF: 0 hydrocodone-acetaminophen 10 MG/325 MG tablet 1 - 2 tab PO PRN PRN (Reason: Pain (Scale Score 4-6)) Qty: 0 RF: 0 glipizide 5 MG tablet 5 mg PO BIDAC Qty: 0 RF: 0 allopurinol 100 mg tablet 100 mg PO BID RF: 0 furosemide 80 mg tablet 2 tab PO BID RF: 0 pantoprazole 40 mg tablet,delayed release (DR/EC) 1 tab PO DAILY RF: 0 polyethylene glycol 3350 17 gram/dose powder 17 g PO DAILY PRN (Reason: Constipation) RF: 0 citalopram 20 MG tablet 40 mg PO QDAY RF: 0 Referrals: Mary Kate Valera ARNP [[employer]] - Jim Quintana MD [Primary Care Provider] - <Jim Bal DO - Last Filed: 12/28/17 07:26> Cosign ED Attending Santana Attestation: I was available for consultation during this patient's emergency department encounter
--- NOTE | 2017-12-25 12:11 | ED_ITS ---
HPI - Fall <Serina Mott PA-C - Last Filed: 12/25/17 21:38> General Chief Complaint: Fall Stated Complaint: GLF Time Seen by Provider: 12/25/17 11:18 Source: patient Mode of arrival: EMS Limitations: no limitations History of Present Illness HPI Narrative: This 67-year-old gentleman was brought in by EMS after a ground level fall. He states that he was actually coming to the hospital for an appointment, was walking from his car with his walker, remembers getting his front walker wheels over the curb, and thinks his back wheels got hung up because he remembers tripping and falling backwards. He states that he does not think that he passed out. He states that he remembers somebody coming over to help him sit up. He states that he vomited once when EMS was bringing him here, none otherwise. He states that currently, he does not have any nausea. He has not had any vision change. He does not have a headache, but states that the left side of his neck and shoulder are sore. He denies any new pain, weakness or paresthesia in his extremities since he fell aside from sore L. shoulder area. He states that he is having difficulty remembering what he was coming to the hospital for this morning. Related Data Home Medications Medication Instructions Recorded Confirmed doxazosin 4 mg PO BEDTIME #0 01/18/17 12/25/17 glipizide 5 mg PO BIDAC #0 01/18/17 12/25/17 hydrocodone-acetaminophen 1 - 2 tab PO PRN PRN #0 01/18/17 12/25/17 allopurinol 100 mg PO BID 12/25/17 12/25/17 citalopram 40 mg PO QDAY 12/25/17 12/25/17 furosemide 2 tab PO BID 12/25/17 12/25/17 pantoprazole 1 tab PO DAILY 12/25/17 12/25/17 polyethylene glycol 3350 17 g PO DAILY PRN 12/25/17 12/25/17 Previous Rx's Medication Instructions Recorded losartan 25 mg PO QDAY #60 08/31/16 Allergies Allergy/AdvReac Type Severity Reaction Status Date / Time latex Allergy Mild IRRITATION Unverified 06/14/17 13:06 Sulfa (Sulfonamide AdvReac Mild N&V 1HOUR Unverified 06/14/17 13:06 Antibiotics) AFTER RX, THINKS IT IS RELATED Review of Systems <Serina Mott PA-C - Last Filed: 12/25/17 21:38> Review of Systems All systems reviewed & are unremarkable except as noted in HPI and below Exam <Serina Mott PA-C - Last Filed: 12/25/17 21:38> Narrative Exam Narrative: GENERAL APPEARANCE: Patient sitting comfortably, in no distress. HEENT: PERRL, EOMI, normal ear canals, nasal mucosa, and oropharynx NECK: Supple LUNGS: Clear to auscultation bilaterally. HEART: Rate and rhythm regular without murmur, normal S1 and S2, no S3 or S4. ABDOMEN: Soft, NT, ND, + BS x 4 quadrants NEUROLOGIC: Alert, patient able to recall fall just prior to arriving here, but initially difficulty recalling some medications and events from earlier in the day MUSCULOSKELETAL: No point tenderness over the cervical, thoracic, or lumbar spine. Mildly reduced C-spine ROM in [place]. Tender over the left mid to distal cervical musculature as well as throughout the mid to upper left trapezius musculature. Full range of motion of the left shoulder. DERMATOLOGIC: Superficial abrasions and small hematoma on the occiput, and also on the left shoulder and upper extremity with patchy ecchymoses. None actively bleeding. Initial Vital Signs Initial Vital Signs: Vital Signs Temperature 98.1 F 12/25/17 11:25 Pulse Rate 111 H 12/25/17 11:25 Respiratory Rate 20 12/25/17 11:25 Blood Pressure 191/104 H 12/25/17 11:25 Pulse Oximetry 96 12/25/17 11:25 <Jim Bal DO - Last Filed: 12/28/17 07:26> Initial Vital Signs Initial Vital Signs: Vital Signs Temperature 98.1 F 12/25/17 11:25 Pulse Rate 111 H 12/25/17 11:25 Respiratory Rate 20 12/25/17 11:25 Blood Pressure 191/104 H 12/25/17 11:25 Pulse Oximetry 96 12/25/17 11:25 Course <ANATOLY Perea Last Filed: 12/25/17 21:38> Additional Information: Patient continued to improve in terms of his memory during his stay here, and was feeling significantly improved. Advised that there are no acute findings on imaging studies. He did not feel any x-ray or imaging of his shoulder was needed. He did not have any headache, vomiting, or vision change. He felt comfortable returning home, continuing his usual medications, and agreed to return here if any acutely worsening symptoms. Otherwise he will follow up with his PCP for recheck this week. Orders Ordered: Discontinued Medications Hydrocodone Bitart/Acetaminophen (Benson 5/325) 2 tab PO NOW ONE Stop: 12/25/17 12:24 Last Admin: 12/25/17 12:38 Dose: 2 tab Sodium Chloride (Normal Saline 0.9%) 1,000 mls @ 1,000 mls/hr IV BOLUS ONE Stop: 12/25/17 13: Last Infusion: 12/25/17 15:03 Dose: 0 mls/hr Admin: 12/25/17 12:39 Dose: 1,000 mls/hr Vital Signs - 8 hr 12/25/17 11:25 12/25/17 12:07 Temperature 98.1 F Pulse Rate 111 H 99 H Respiratory Rate 20 17 Blood Pressure 191/104 H Blood Pressure [Left Arm] 159/72 H Pulse Oximetry 96 95 <Jim Bal DO - Last Filed: 12/28/17 07:26> Orders Ordered: Discontinued Medications Hydrocodone Bitart/Acetaminophen (Benson 5/325) 2 tab PO NOW ONE Stop: 12/25/17 12:24 Last Admin: 12/25/17 12:38 Dose: 2 tab Sodium Chloride (Normal Saline 0.9%) 1,000 mls @ 1,000 mls/hr IV BOLUS ONE Stop: 12/25/17 13:22 Last Infusion: 12/25/17 15:03 Dose: 0 mls/hr Admin: 12/25/17 12:39 Dose: 1,000 mls/hr Vital Signs - 8 hr 12/25/17 11:25 12/25/17 12:07 Temperature 98.1 F Pulse Rate 111 H 99 H Respiratory Rate 20 17 Blood Pressure 191/104 H Blood Pressure [Left Arm] 159/72 H Pulse Oximetry 96 95 MDM - Fall <Serina Mott PA-C - Last Filed: 12/25/17 21:38> Lab Data Attestation: I reviewed the patient's lab results. Result diagrams: 12/25/17 12:27 12/25/17 12:27 Lab Results 12/25/17 12/25/17 Range/Units 12:27 12:27 WBC 8.0 (4.5-11.0) X10^3/uL RBC 3.74 L (4.5-5.9) X10^6/uL Hgb 13.0 L (13.5-17.5) g/dL Hct 38.5 L (41-53) % MCV 102.9 H (80-100) fL MCH 34.7 H (26-34) PG MCHC 33.8 (30-36) % RDW 13.0 (11.6-14.8) % Plt Count 194 (150-400) X10^3/uL Neut % (Auto) 82.9 H (50-75) % Lymph % (Auto) 8.7 L (25-40) % Mcminn % (Auto) 7.2 (3-14) % Eos % (Auto) 0.6 L (2-4) % Baso % (Auto) 0.6 (0-2) % Neut # (Auto) 6600 H (6215-2092) /uL Sodium 136 L (137-145) mmol/L Potassium 4.4 (3.4-5.1) mmol/L Chloride 92 L (98-107) mmol/L Carbon Dioxide 34 H (22-32) mmol/L BUN 54 H (9-20) mg/dL Creatinine 2.20 H (0.66-1.25) mg/dL Estimated GFR 30.1 L (>60) mL/min BUN/Creatinine Ratio 24.5 H (6-22) Glucose 184 H (80-110) mg/dL Calcium 9.0 (8.4-10.2) mg/dL Imaging Data CT scan - head: Radiologist's impression: [address] [address] [address] Scan Report Signed Patient: Cristóbal Tubbs WMR#: [id number] : 2Acct:[id number] Age/Sex: 67 / MDate of Service: 12/25/17 Loc: ED Accession Number: [id number] Procedure: CT head/brain wo con Ordering Provider: Jim Bal D.O. PROCEDURE: CT HEAD/BRAIN WO CON INDICATIONS: Fall with neck pain TECHNIQUE: Noncontrast 4.5 mm thick angled axial sections acquired from the foramen magnum to the vertex, with coronal and sagittal reformats. For radiation dose reduction, the following was used: automated exposure control, adjustment of mA and/or kV according to patient size. COMPARISON: [facility], CT, HEAD WITHOUT CONTRAST, 03/22/2013, 23:49. FINDINGS: Image quality: Mild motion. CSF spaces: Basal cisterns are patent. No extra-axial fluid collections. The ventricles demonstrate mild prominence in relation to gyral and sulcal atrophy, unchanged. As previously noted, recommend correlation to potential normal pressure hydrocephalus. Brain: No intracranial bleeds or masses. There is cerebral volume loss for age , with resultant ventricular and sulcal prominence. There are periventricular and deep white matter chronic small vessel ischemic changes. There is intracranial internal carotid artery atherosclerosis. Skull and face: Calvarium and visualized facial bones appear intact, without suspicious lesions. Sinuses: Visualized sinuses are clear. 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 IMPRESSION: 1. No acute intracranial process. 2. Mild to moderate atrophy and chronic microvascular ischemic changes. Dictated by: Ayanna Lux M.D. on 12/25/2017 at 11:48 Approved by: Ayanna Lux M.D. on 12/25/2017 at 11:52 neck: Radiologist's impression: [place] [address] CT Scan Report Signed Patient: Cristóbal Tubbs WMR#: [id number] : 2Acct:[id number] Age/Sex: 67 / MDate of Service: 12/25/17 Loc: ED Accession Number: [id number] Procedure: CT cervical spine wo con Ordering Provider: Jim Bal D.O. PROCEDURE: CT CERVICAL SPINE WO CON INDICATIONS: Fall with neck pain TECHNIQUE: Noncontrast 3 mm thick sections acquired from the skull base to the T4 level. Sagittal and coronal reformats were then constructed. For radiation dose reduction, the following was used: automated exposure control, adjustment of mA and/or kV according to patient size. COMPARISON: [facility], CT, C-SPINE WITHOUT CONTRAST, 01/24/2017, 11:09. FINDINGS: Image quality: Multilevel susceptibility artifact is present from metallic surgical hardware, limiting areas of fine detail evaluation. Bones: No fractures or dislocations. Visualized superior ribs are intact. C2- T2 posterior fusion is present. Hardware appears intact and unchanged compared to prior exam. Multilevel degenerative changes are also present. Soft tissues: Prevertebral soft tissues are normal in thickness. No paravertebral hematomas. No apical pneumothoraces. IMPRESSION: 1. Postsurgical and degenerative changes without visualized fracture. Dictated by: Ayanna Lux M.D. on 12/25/2017 at 11:52 Approved by: Ayanna Lux M.D. on 12/25/2017 at 11:54 ECG Data Attestation: I personally reviewed and interpreted this ECG as follows: (sinus tach, rate 108, nl axis) <Jim Bal DO - Last Filed: 12/28/17 07:26> Lab Data Lab Results 12/25/17 12/25/17 Range/Units 12:27 12:27 WBC 8.0 (4.5-11.0) X10^3/uL RBC 3.74 L (4.5-5.9) X10^6/uL Hgb 13.0 L (13.5-17.5) g/dL Hct 38.5 L (41-53) % MCV 102.9 H (80-100) fL MCH 34.7 H (26-34) PG MCHC 33.8 (30-36) % RDW 13.0 (11.6-14.8) % Plt Count 194 (150-400) X10^3/uL Neut % (Auto) 82.9 H (50-75) % Lymph % (Auto) 8.7 L (25-40) % Mcminn % (Auto) 7.2 (3-14) % Eos % (Auto) 0.6 L (2-4) % Baso % (Auto) 0.6 (0-2) % Neut # (Auto) 6600 H (4199-8628) /uL Sodium 136 L (137-145) mmol/L Potassium 4.4 (3.4-5.1) mmol/L Chloride 92 L (98-107) mmol/L Carbon Dioxide 34 H (22-32) mmol/L BUN 54 H (9-20) mg/dL Creatinine 2.20 H (0.66-1.25) mg/dL Estimated GFR 30.1 L (>60) mL/min BUN/Creatinine Ratio 24.5 H (6-22) Glucose 184 H (80-110) mg/dL Calcium 9.0 (8.4-10.2) mg/dL Discharge Plan Departure Patient Disposition: Home Clinical Impression: Concussion, Strain of left shoulder Discharge Date/Time: 12/25/17 15:03 Interventions: ED Discharge Assessment Last Done: 12/25/17 15:03 Instructions: DI for Concussion, DI for Shoulder Sprain Activity Restrictions/Additional Instructions: Please return as we talked about if you have new symptoms such as severe headache, vision change, new weakness or numbness in your arms or legs or recurrent vomiting. You do have a concussion, and it is likely to take some time for you to get back to normal in terms of your concentration and being able to tolerate daily activities, so please rest and also avoid heavy ?mental? exertion such as screen time and studying. Please follow-up with your PCP for recheck in a few days. I think you hit and strained your shoulder and neck area as well. Gentle range of motion is fine for your shoulder and you can take your usual pain medicines. We did let the cancer center know that you were here today regarding or missed appointment. Your labs had actually improved today, so please call them tomorrow regarding when to reschedule. Prescriptions: No Action losartan 25 MG tablet 25 mg PO QDAY Qty: 60 RF: 0 doxazosin 4 MG tablet 4 mg PO BEDTIME Qty: 0 RF: 0 hydrocodone-acetaminophen 10 MG/325 MG tablet 1 - 2 tab PO PRN PRN (Reason: Pain (Scale Score 4-6)) Qty: 0 RF: 0 glipizide 5 MG tablet 5 mg PO BIDAC Qty: 0 RF: 0 allopurinol 100 mg tablet 100 mg PO BID RF: 0 furosemide 80 mg tablet 2 tab PO BID RF: 0 pantoprazole 40 mg tablet,delayed release (DR/EC) 1 tab PO DAILY RF: 0 polyethylene glycol 3350 17 gram/dose powder 17 g PO DAILY PRN (Reason: Constipation) RF: 0 citalopram 20 MG tablet 40 mg PO QDAY RF: 0 Referrals: Mary Kate Valera ARNP [[facility]] - Jim Quintana MD [Primary Care Provider] - <Jim Bal DO - Last Filed: 12/28/17 07:26> Cosign ED Attending Santana Attestation: I was available for consultation during this patient's emergency department encounter
[2017-12-25 12:35] LABS: Add Manual Diff / Slide Review NO; Basophils Percent Auto 0.6 % (0-2); Eosinophils Percent Auto 0.6 % (2-4); Hematocrit 38.5 % (41-53); Lymphocytes Percent Auto 8.7 % (25-40); Mean Corpuscular HGB Conc 33.8 % (30-36); Mean Corpuscular Hemoglobin 34.7 PG (26-34); Mean Corpuscular Volume 102.9 fL (80-100); Monocytes Percent Auto 7.2 % (3-14); Neutrophils Absolute Auto 6600 /uL (3000-5900); Neutrophils Percent Auto 82.9 % (50-75); Platelet Count 194 X10^3/uL (150-400); Red Blood Cell Count 3.74 X10^6/uL (4.5-5.9)
[2017-12-25] MEDS: HYDROCODONE/ACET 5/325 TABLET 2 TAB PO (12:38)
[2017-12-25] MEDS: SODIUM CHLORIDE 0.9% 1,000 ML 1000 ML IV (12:39)
[2017-12-25 12:55] LABS: BUN Creatinine Ratio 24.5 (6-22); Blood Urea Nitrogen 54 mg/dL (9-20); Carbon Dioxide 34 mmol/L (22-32); Chloride 92 mmol/L (98-107); Estimated Glomerular Filt Rate 30.1 mL/min (>60); Glucose 184 mg/dL (80-110); HEMOLYSIS 37 (0-50); Potassium 4.4 mmol/L (3.4-5.1); Sodium 136 mmol/L (137-145)
== END 2017-12-25 15:03 | disposition home or self-care (01) ==
PROVIDERS: Emergency Medicine; Emergency Provider Internal Medicine; PCP Family Medicine
DX: S06.0X9A Concussion with loss of consciousness of unspecified duration, initial encounter (principal); S46.912A Strain of unspecified muscle, fascia and tendon at shoulder and upper arm level, left arm, initial encounter; W01.0XXA Fall on same level from slipping, tripping and stumbling without subsequent striking against object, initial encounter
CPT/HCPCS: 36415; 70450; 72125; 80048; 85025; 93005; 93010; 96360; 96361; 99283; 99285

== ENCOUNTER → 2018-01-08 13:00 | Oncology outpatient (ONC) | payer MEDICARE, SELFPAY ==
[2017-10-05 13:23] LABS: Add Manual Diff / Slide Review NO; Basophils Percent Auto 0.4 % (0-2); Eosinophils Percent Auto 0.2 % (2-4); Hemoglobin 10.5 g/dL (13.5-17.5); Lymphocytes Percent Auto 4.9 % (25-40); Mean Corpuscular HGB Conc 32.7 % (30-36); Monocytes Percent Auto 4.2 % (3-14); Neutrophils Absolute Auto 11500 /uL (3000-5900); Neutrophils Percent Auto 90.3 % (50-75); Platelet Count 230 X10^3/uL (150-400); Red Blood Cell Count 3.17 X10^6/uL (4.5-5.9); Red Cell Distribution Width 15.8 % (11.6-14.8); White Blood Cell Count 12.7 X10^3/uL (4.5-11.0)
[2017-10-05 13:38] VITALS: BP 163/66; PULSE 101; RESP 20; TEMP 36.8; O2SAT 97
[2018-01-08 13:02] LABS: Add Manual Diff / Slide Review NO; Basophils Percent Auto 0.3 % (0-2); Eosinophils Percent Auto 0.4 % (2-4); Hematocrit 36.4 % (41-53); Hemoglobin 12.3 g/dL (13.5-17.5); Lymphocytes Percent Auto 8.9 % (25-40); Mean Corpuscular HGB Conc 33.8 % (30-36); Mean Corpuscular Hemoglobin 34.9 PG (26-34); Mean Corpuscular Volume 103.1 fL (80-100); Monocytes Percent Auto 7.6 % (3-14); Neutrophils Absolute Auto 5200 /uL (3000-5900); Neutrophils Percent Auto 82.8 % (50-75); Platelet Count 172 X10^3/uL (150-400); Red Blood Cell Count 3.54 X10^6/uL (4.5-5.9); Red Cell Distribution Width 13.2 % (11.6-14.8); White Blood Cell Count 6.3 X10^3/uL (4.5-11.0)
[2018-01-08 13:13] VITALS: BP 111/55; PULSE 97; RESP 18; TEMP 37.1; O2SAT 93
--- NOTE | 2018-01-08 13:29 | P.PNONC_ITS ---
PN -Subjective Interval history: Interim events Patient overall has been doing well except that he had 2 incidents of falls. The 1st incident happened on December 25 and was evaluated at the emergency room. Head CT showed no acute intracranial process. Last night patient fell again. Patient explained that it was due to the movement difficulties with his lower extremities since after the cervical fracture. No dizziness. No blackout. History of present illness 67-year-old gentleman with extensive medical problems including chronic kidney disease, type 2 diabetes, chronic pain on narcotic dependence, hypertension, neck fracture with repair hardware, laparotomy for perforation of bowel and status post thoracic spine repair. Patient has been followed at our clinic because of anemia of chronic kidney disease requiring Aranesp injection on an as -needed basis. - Patient Self-Reported Symptoms SR respiratory issues: Cough SR Gastrointestinal issues: Constipation SR Genitourinary issues: Sexual difficulties SR Musculoskeletal issues: Back or neck pain SR Neuro issues: Head injury, Difficulty balancing - Additional ROS All systems PM: reviewed and no additional remarkable complaints except as stated Home Medications and Allergies Home Medications Medication Instructions Recorded Confirmed Type losartan 25 mg PO QDAY #60 08/31/16 12/25/17 Rx doxazosin 4 mg PO BEDTIME #0 01/18/17 12/25/17 History glipizide 5 mg PO DAILY #0 01/18/17 12/25/17 History hydrocodone-acetaminophen 1 - 2 tab PO PRN PRN #0 01/18/17 12/25/17 History allopurinol 100 mg PO BID 12/25/17 12/25/17 History citalopram 40 mg PO QDAY 12/25/17 12/25/17 History furosemide 1 tab PO BID 12/25/17 12/25/17 History pantoprazole 1 tab PO DAILY 12/25/17 12/25/17 History polyethylene glycol 3350 17 g PO DAILY PRN 12/25/17 12/25/17 History Allergies Allergy/AdvReac Type Severity Reaction Status Date / Time latex Allergy Mild IRRITATION Unverified 06/14/17 13:06 Sulfa (Sulfonamide AdvReac Mild N&V 1HOUR Unverified 06/14/17 13:06 Antibiotics) AFTER RX, THINKS IT IS RELATED Exam Vital signs: 3 Temp 98.8 F 01/08/18 13:13 Pulse 97 H 01/08/18 13:13 Resp 18 01/08/18 13:13 BP 111/55 L 01/08/18 13:13 Pulse Ox 93 01/08/18 13:13 ECOG 1 Narrative: Constitutional: Well developed, obese, NAD, pleasant and cooperative. HEENT: Normocephalic atraumatic. Extraocular muscle movement intact. Pupils are round, equal and reactive to light and accommodations. Anicteric sclera. No hearing difficulty; Oral mucus membrane moist and without ulcers. Neck: Supple, symmetrical, and tracheal midline; No palpable thyromegaly and no palpable lymph nodes. Respiratory: No use of accessory muscles. coarse breath sound, no wheezes or rales or rubs. Cardiovascular: Regular rate and rhythm, S1 and S2 normal, no murmurs gallops or rubs. No JVD. No pitting edema of lower extremities. Abdomen: Soft, nontender, non-distended, bowel sounds normal, no palpable organomegaly, no hernia, no palpable masses. Lower extremities: No palpable pedal edema. Lymphatic: no palpable lymph nodes in the neck, axillae, or groins. Musculoskeletal: slow and with walker. Skin: no rashes, no ulcers, no petechiae Neurological: Awake and alert and oriented x3. CN II-XII grossly intact. No focal motor or sensory deficit. Psychiatric: Good judgment, good insight, normal affect, normal thought process , cooperative, no depression, no anxiety. The Results - Labs 3 WBC 6.3 X10^3/uL (4.5-11.0) 01/08/18 12:49 RBC 3.54 X10^6/uL (4.5-5.9) L 01/08/18 12:49 Hgb 12.3 g/dL (13.5-17.5) L 01/08/18 12:49 Hct 36.4 % (41-53) L 01/08/18 12:49 MCV 103.1 fL (80-100) H 01/08/18 12:49 MCH 34.9 PG (26-34) H 01/08/18 12:49 MCHC 33.8 % (30-36) 01/08/18 12:49 RDW 13.2 % (11.6-14.8) 01/08/18 12:49 Plt Count 172 X10^3/uL (150-400) 01/08/18 12:49 Neut % (Auto) 82.8 % (50-75) H 01/08/18 12:49 Lymph % (Auto) 8.9 % (25-40) L 01/08/18 12:49 [place] % (Auto) 7.6 % (3-14) 01/08/18 12:49 Eos % (Auto) 0.4 % (2-4) L 01/08/18 12:49 Baso % (Auto) 0.3 % (0-2) 01/08/18 12:49 Neut # (Auto) 5200 /uL (8406-5354) 01/08/18 12:49 - Imaging Additional studies: Procedures Closure of skin and subcutaneous tissue of other sites (08/29/13) Colonoscopy (06/05/13) Control Bleeding in Gastrointestinal Tract, Via Natural or Artificial Opening Endoscopic (08/26/16) Injection or infusion of other therapeutic or prophylactic substance (03/23/13) Other endoscopy of small intestine (06/05/13) Other nonoperative respiratory measurements (06/09/11) Total knee replacement (04/09/14) Transfusion of Nonautologous Red Blood Cells into Peripheral Vein, Percutaneous Approach (08/26/16) Transfusion of packed cells (07/09/13) Assessment and Plan (1) Anemia in CKD (chronic kidney disease) I explained to the patient about the laboratory tests from today. His hemoglobin level was 12.3 hematocrit 36.4. I talked with him that Aranesp injection is not indicated. Plan 1. No Aranesp today 2. RTC in one month, repeat CBC, 3. Aranesp 60 mcg subq if HGB < 10.
== END ==
PROVIDERS: Internal Medicine Hematology & Oncology; Family Provider Family Medicine; PCP Family Medicine; Visit Provider Nurse Practitioner Gerontology
DX: N18.9 Chronic kidney disease, unspecified (principal); E11.22 Type 2 diabetes mellitus with diabetic chronic kidney disease; I12.9 Hypertensive chronic kidney disease with stage 1 through stage 4 chronic kidney disease, or unspecified chronic kidney disease; D63.1 Anemia in chronic kidney disease; Z79.84 Long term (current) use of oral hypoglycemic drugs
CPT/HCPCS: 36415; 85025; 96372; 99214; J0881

== ENCOUNTER 2018-02-15 23:24 | Observation (INO) | payer MEDICARE, SELFPAY ==
--- NOTE | 2018-02-15 23:32 | ED_ITS ---
HPI - General Adult General Chief complaint: Diabetic Problem Stated complaint: Low Blood Sugar Time Seen by Provider: 02/15/18 23:31 Source: EMS Mode of arrival: EMS Limitations: altered mental status History of Present Illness HPI narrative: Patient is a 67-year-old male with a history of diabetes. He is on glipizide. He states that he take this medication in the morning. EMS report that earlier today they were called out to the patient's house because he was acting inappropriate. They were called by a neighbor of the individual. When they arrived they found the patient with a blood glucose level in the 40s. They gave him dextrose which improved his blood sugar. They also report that they bought him a pizza which it appears that he ate. They were called back out this evening for similar episode that happened this morning. They stated that there was no food in the house. They brought him into the emergency department because again his blood sugar was low. He did receive glucose prior to arrival. Patient did state that he was drinking today. He states that he did not have anything to eat or drink other than alcohol today. Patient denies any other toxic ingestions. Related Data Home Medications Medication Instructions Recorded Confirmed doxazosin 4 mg PO BEDTIME #0 01/18/17 12/25/17 glipizide 5 mg PO DAILY #0 01/18/17 12/25/17 hydrocodone-acetaminophen 1 - 2 tab PO PRN PRN #0 01/18/17 12/25/17 allopurinol 100 mg PO BID 12/25/17 12/25/17 citalopram 40 mg PO QDAY 12/25/17 12/25/17 furosemide 1 tab PO DAILY 12/25/17 12/25/17 pantoprazole 1 tab PO DAILY 12/25/17 12/25/17 lorazepam 0.5 mg PO PRN PRN 02/05/18 02/05/18 Allergies Allergy/AdvReac Type Severity Reaction Status Date / Time latex Allergy Mild IRRITATION Verified 02/15/18 23:36 Sulfa (Sulfonamide AdvReac Mild N&V 1HOUR Verified 02/15/18 23:36 Antibiotics) AFTER RX, THINKS IT IS RELATED Review of Systems Constitutional Denies fever(s) ENT Ears, Nose, Mouth, and Throat: Denies vertigo and Denies dizziness Cardiovascular Denies chest pain and Denies dyspnea Respiratory Denies dyspnea Gastrointestinal Gastrointestinal: Denies abdominal pain Genitourinary Denies dysuria Musculoskeletal Denies myalgias and Denies arthralgias Integumentary/Breasts Denies rash Neurologic Denies vertigo and Denies dizziness Psychiatric Denies irritability Hematologic/Lymphatic Comments: Not on anticoagulation Allergic/Immunologic Denies urticaria PFSH Medical History Anemia associated with chronic renal failure (Chronic) Symptomatic anemia (Chronic) GI bleed (Resolved) Diabetes type 2, controlled (Chronic) Alcoholism (Acute) Obesity (Chronic) Chronic kidney disease, stage 4 (severe) (Chronic) Depression (Chronic) Hypertension (Chronic) Hyperparathyroidism (Chronic) Chronic pain (Chronic) Duodenal ulcer (Acute) Left leg pain (Chronic) 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, arthropathy (Chronic) History of cervical fracture (Resolved) Surgical History History of colectomy (Resolved) Social History Smoking Status: Former smoker Exam Initial Vital Signs Initial Vital Signs: Vital Signs Temperature 97.2 F L 02/15/18 23:33 Pulse Rate 92 H 02/15/18 23:33 Respiratory Rate 27 H 02/15/18 23:33 Blood Pressure 140/65 02/15/18 23:33 Pulse Oximetry 92 02/15/18 23:33 Const General: cooperative, healthy appearing, comfortable, well developed, well groomed and No acute distress Orientation: alert, awake and oriented x3 HENMT Head: normal to inspection and normocephalic Resp Effort & Inspection: normal respiratory effort Cardio Rate: regular rate Rhythm: regular rhythm GI Inspection: non-distended Palpation: soft and No firm Skin Lesions: no lesions Rashes: no rashes Neuro General: alert, awake, oriented (Person and place but not situation) and moves all extremities Extrem General: normal to inspection and capillary refill normal Psych Appearance: grossly normal and well kempt Course Orders Ordered: ED Orders 02/15/18 23:39 Complete Blood Count AUTO DIFF Stat Comprehensive Metabolic Panel Stat Lipase Stat 02/15/18 23:52 EKG-12 Lead Stat 02/16/18 01:29 Urine Drug Screen, Rapid Stat 02/16/18 01:35 Consult to Physician Routine 02/16/18 01:50 Ammonia (NH3) Stat Ethanol (ETOH) Stat Dextrose/Sodium Chloride (Dextrose 5%-0.45% Ns) 1,000 mls @ 125 mls/hr IV CONT DAVID Last Admin: 02/16/18 00:38 Dose: 125 mls/hr Discontinued Medications Al Hydrox/Mg Hydrox/Simethicone 20 ml/ Lidocaine HCl 15 ml 0 ml PO NOW ONE Stop: 02/16/18 00:07 Last Admin: 02/16/18 00:14 Dose: Sodium Chloride (Normal Saline 0.9%) 1,000 mls @ 1,000 mls/hr IV BOLUS ONE Stop: 02/16/18 00:37 Last Infusion: 02/16/18 00:38 Dose: 1,000 mls/hr Admin: 02/16/18 00:13 Dose: 1,000 mls/hr Vital Signs - 8 hr 02/15/18 23:33 02/16/18 00:00 02/16/18 00:41 Temperature 97.2 F L Pulse Rate 92 H 90 84 Respiratory Rate 27 H 19 21 Blood Pressure 140/65 Blood Pressure [Left Arm] 141/64 H 137/79 Pulse Oximetry 92 92 94 02/16/18 01:30 Temperature Pulse Rate 83 Respiratory Rate 20 Blood Pressure Blood Pressure [Left Arm] 142/89 H Pulse Oximetry 93 Medical Decision Making Lab Data Lab results reviewed: Yes I reviewed the patient's lab results. Result diagrams: 02/15/18 23:39 02/15/18 23:39 Lab Results 02/15/18 02/15/18 Range/Units 23:39 23:39 WBC 6.9 (4.5-11.0) X10^3/uL RBC 3.10 L (4.5-5.9) X10^6/uL Hgb 10.7 L (13.5-17.5) g/dL Hct 31.5 L (41-53) % MCV 101.8 H (80-100) fL MCH 34.7 H (26-34) PG MCHC 34.1 (30-36) % RDW 13.7 (11.6-14.8) % Plt Count 200 (150-400) X10^3/uL Neut % (Auto) 84.5 H (50-75) % Lymph % (Auto) 7.8 L (25-40) % [place] % (Auto) 6.4 (3-14) % Eos % (Auto) 0.9 L (2-4) % Baso % (Auto) 0.4 (0-2) % Neut # (Auto) 5800 (8279-3011) /uL Sodium 138 (137-145) mmol/L Potassium 3.9 (3.4-5.1) mmol/L Chloride 97 L (98-107) mmol/L Carbon Dioxide 30 (22-32) mmol/L BUN 54 H (9-20) mg/dL Creatinine 2.00 H (0.66-1.25) mg/dL Estimated GFR 33.6 L (>60) mL/min BUN/Creatinine Ratio 27.0 H (6-22) Glucose 87 (80-110) mg/dL Calcium 9.4 (8.4-10.2) mg/dL Total Bilirubin 0.6 (0.2-1.3) mg/dL AST 26 (17-59) IU/L ALT 20 L (21-72) IU/L Alkaline Phosphatase 67 (38-126) U/L Total Protein 7.0 (6.3-8.2) g/dL Albumin 4.1 (3.5-5.0) g/dL Globulin 2.9 (1.7-4.1) g/dL Albumin/Globulin Ratio 1.4 (1.0-2.8) Lipase 116 (23-300) U/L Point of Care Testing Glucose POC 134 Point of care testing: Point of Care Testing Glucose POC 134 MDM Narrative Medical decision making narrative: We were able to feed the patient here and have him drink several boxes of juice. He was given crackers with peanut butter and also cheese. With a recheck of his blood sugar it was back down to 80. This was after his food. He was started on D5 half-normal to maintain his blood sugar level. There is no signs of trauma. Electrolytes unremarkable. Ammonia, alcohol, and UDS ordered per the request of admitting provider. I feel that given the decrease in his blood sugar even after the food here in the emergency department that he needs admission for continued IV glucose replacement. I suspect that he took his diabetes medicine this morning and then did not eat or drink anything all day except for alcohol. I discussed the case with Dr Santoyo will admit the patient. Informed patient that he be admitted to the hospital. He expressed understanding. Discharge Plan Departure Patient Disposition: Admitted As Inpatient Clinical Impression: Hypoglycemia, Anemia
[2018-02-15 23:33] VITALS: BP 140/65; PULSE 92; RESP 27; TEMP 36.2; O2SAT 92; BMI 24.4
[2018-02-15 23:53] LABS: Add Manual Diff / Slide Review NO; Basophils Percent Auto 0.4 % (0-2); Eosinophils Percent Auto 0.9 % (2-4); Hematocrit 31.5 % (41-53); Hemoglobin 10.7 g/dL (13.5-17.5); Lymphocytes Percent Auto 7.8 % (25-40); Mean Corpuscular HGB Conc 34.1 % (30-36); Mean Corpuscular Hemoglobin 34.7 PG (26-34); Mean Corpuscular Volume 101.8 fL (80-100); Monocytes Percent Auto 6.4 % (3-14); Neutrophils Absolute Auto 5800 /uL (1500-7000); Neutrophils Percent Auto 84.5 % (50-75); Platelet Count 200 X10^3/uL (150-400); Red Cell Distribution Width 13.7 % (11.6-14.8); White Blood Cell Count 6.9 X10^3/uL (4.5-11.0)
--- NOTE | 2018-02-15 23:55 | PC.NURSE ---
He drank #4 glssses of OJ,ate peanut butter and crackers and one serving of fruit cocktail.
[2018-02-15 23:57] LABS: Alanine Aminotransferase 20 IU/L (21-72); Albumin 4.1 g/dL (3.5-5.0); Albumin Globulin Ratio 1.4 (1.0-2.8); Alkaline Phosphatase 67 U/L (38-126); Aspartate Aminotransferase 26 IU/L (17-59); Bilirubin Total 0.6 mg/dL (0.2-1.3); Blood Urea Nitrogen 54 mg/dL (9-20); Calcium 9.4 mg/dL (8.4-10.2); Carbon Dioxide 30 mmol/L (22-32); Chloride 97 mmol/L (98-107); Estimated Glomerular Filt Rate 33.6 mL/min (>60); Globulin 2.9 g/dL (1.7-4.1); Glucose 87 mg/dL (80-110); HEMOLYSIS < 15 (0-50); Lipase 116 U/L (23-300); Potassium 3.9 mmol/L (3.4-5.1); Sodium 138 mmol/L (137-145)
[2018-02-16] VITALS (8 sets, daily range): BP systolic 137–166; BP diastolic 64–89; PULSE 83–90; RESP 16–22; TEMP 36.9–37.3; O2SAT 92–97; BMI 38.2
[2018-02-16] MEDS: SODIUM CHLORIDE 0.9% 1,000 ML 1000 ML IV (00:13)
[2018-02-16] MEDS: DEXTROSE 5%-0.45% NS 1,000 ML 125 ML IV (00:38)
--- NOTE | 2018-02-16 00:42 | PC.NURSE ---
His cbg was 84 and he was given snack and changed iv fluids to D5 1/2 ns at 125 ml per hr.
[2018-02-16 02:04] LABS: Ethanol (ETOH) < 10 mg/dL
--- NOTE | 2018-02-16 02:51 | PC.NURSE ---
he also has a cell phone with him.
--- NOTE | 2018-02-16 02:56 | PC.NURSE ---
when he was transferred to icu he was alert and oriented to place,person and situation.he is smuch more alert now than on arrival.
--- NOTE | 2018-02-16 03:24 | PC.NURSE ---
Tried to go over summary with alleryoni and he denies any, tried to go over meds and I can't get him to stay awake and answer.
[2018-02-16 06:27] LABS: Urine Amphetamines Negative (Negative); Urine Barbiturates Negative (Negative); Urine Benzodiazepines Negative (Negative); Urine Cocaine Negative (Negative); Urine MDMA Negative (Negative); Urine Methadone Negative (Negative); Urine Methamphetamines Negative (Negative); Urine Morphine/Opi cutoff 2000 Positive (Negative); Urine Oxycodone Negative (Negative); Urine Phencyclidine Negative (Negative); Urine Tetrahydrocannabinol Negative (Negative); Urine Tricyclic Antidepressant Negative (Negative)
[2018-02-16] MEDS: HYDROCODONE/ACET 5/325 TABLET 2 TAB PO ×2 (08:47→13:04)
[2018-02-16] MEDS: ENOXAPARIN 40 MG/0.4 ML SYRINGE SUBCUT (08:48)
[2018-02-16] MEDS: FUROSEMIDE 40 MG TABLET 80 MG PO (08:48)
--- NOTE | 2018-02-16 11:44 | PT.IIE ---
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 Pt also uses W/C at if needed. Pt reports he needs to rest for every 30 feet and he c/o he cannot walk as far as before for the past couple months. Activities of Daily Living and IADL's Pt is independent for ADLs and IADLs. He also states he does need help from his roommate to cook for him sometimes since pt reports he cannot stand for a long more than 5 minutes. Social History Household Members friend(s) caregiver Living Arrangements House Number of Floors (Floors) One Floor Number of Stairs To Enter/Railing? 1 RAMP for w/c access Home Environment Standard Height Toilet Walk in Shower Home Equipment Four Wheel Walker Straight Cane Manual Wheelchair Shower Seat with Backrest Employment Status Retired Additional Social History Comment Pt lives with his roommate who is able to assist him to make meals for him occasionally due to pt's poor activity tolerance. Pt reports he uses w/c to get into the house through the ramp. He also has a shower chair at home. M2 PT-IP Current Condition Start: 02/16/18 11:19 Freq: NEEDED Status: Active Protocol: Document 02/16/18 10:30 HH (Rec: 02/16/18 11:40 [email or web address]) Physical Therapy Current Condition Current Condition Evaluation Date 02/16/18 Treatment Diagnosis hypoglycemia, difficulty in walking, generalized muscle weakness Onset Date 02/15/18 Weight Bearing Status Weight Bearing Status Full Weight Bearing M3 PT-IP Subjective Start: 02/16/18 11:19 Freq: NEEDED Status: Active Protocol: Document 02/16/18 10:30 HH (Rec: 02/16/18 11:40 [email or web address]) Subjective Physical Therapy Visit Type Type Initial Evaluation Visit Start Time 10:30 Visit Stop Time 10:50 Total Visit Minutes 20 Notes Pt agreeable to mobilize with PT. RN reports pt will most likely be d/c to home this afternoon due to his vital signs and blood glucose reached baseline. RN also states pt did OOB activity with nursing staff SBA with FWW since yesterday. Number of GEAR CHANGER Visits 0 Physical Therapy Visit Comments Patient Comments Pt states I feel pretty good and normal today. I did get around of the room and i think i am ready to go home. Patient Goals To be able to go home Therapy Pain Assessment Pain Present Pain Present Denied Pain M4 PT-IP Mobility and Gait Start: 02/16/18 11:19 Freq: NEEDED Status: Active Protocol: Document 02/16/18 10:30 HH (Rec: 02/16/18 11:40 [email or web address]) PT-Bed Mobility Assessment Scooting Scooting to Edge of Bed Independent PT-Transfer Assessment Sit to and From Stand Sit to and from Stand Independent Standby Assistance Use of Upper Extremities Equipment Transfer Assistive Device Front Wheeled Walker Transfers Transfer Destination Chair Transfer Technique Stand Step Pivot Transfer Ability Level of Assist Independent Standby Assistance Comments Mobility Comments sitting BP 150/75 HR 102 standing BP 160/72 HR 104 post transfer and amb BP = 170 /69 HR 110 Pt was in his bedside chair this morning. Pt performs sit to stand x 3 with SBA/mod I from lowered reclining chair with FWW. Pt requires v.c. to facilitate hip hinge during STS. Pt amb 20 feet and able to use stand step pivot for turning and back to chair in a safe manner without sign of acute distress and LOB. Gait Assessment Gait Gait Assistance Required: Independent Standby Assistance Distance (Feet) 20 Assistive Devices Assistive Device Gait Belt Front Wheeled Walker Gait Deviations General Gait Pattern Within Normal Limits Factors Limiting Gait Function Factors Limiting Gait Function Decreased Activity Tolerance Comments Gait Comments Pt amb 20 feet with FWW with SBA/I. He is able to perform stand pivot for turns and approach his chair in a safe manner without signs of fatigue and LOB. Pt presents normal gait pattern and he reports I pretty much walk like the same before i got into hospital. PT-Balance Assessment Sitting Balance and Reactions Static Sitting Balance Ability Normal Dynamic Sitting Balance Ability Normal Standing Balance and Reactions Static Standing Balance Ability Normal Dynamic Standing Balance Ability Normal M5 PT-IP Objective Assessments Start: 02/16/18 11:19 Freq: NEEDED Status: Active Protocol: Document 02/16/18 10:30 HH (Rec: 02/16/18 11:40 [email or web address]) Orientation Orientation/Cognition Level of Alertness Alert Orientation Name Age Birthday Month Date Year Day of Week Place Situation Language Function Ability No Deficits Noted Safety Awareness Understands Safety Issues Memory Description No Deficits Noted Gross Range of Motion Upper Extremity ROM Assessment Within Functional Limits Lower Extremity ROM Assessment Within Functional Limits Strength Upper Extremity Strength Assessment Within Functional Limits Lower Extremity Strength Assessment Within Functional Limits Coordination Assessment Gross Coordination Gross Coordination WNL Sensation Assessment Sensation Gross Sensation WNL M6 PT-IP Treatment Start: 02/16/18 11:19 Freq: NEEDED Status: Active Protocol: Document 02/16/18 10:30 HH (Rec: 02/16/18 11:40 [email or web address]) Physical Therapy Treatment Other Treatments Other Treatment Performed sit to stand with hip hinge pattern to facilitate momentum M7 PT-IP Assessment and Plan Start: 02/16/18 11:19 Freq: NEEDED Status: Active Protocol: Document 02/16/18 10:30 HH (Rec: 02/16/18 11:40 [email or web address] [id number]) PT Summary Assessment and Plan Potential Rehabilitation Potential Excellent Status of Condition at Evaluation Stable Summary Impairments Activity Tolerance Progress Towards Goals Safe For Discharge Assessment Summary Pt demonstrates AxO x 4 this morning who also states I feel good and normal instead of confused yesterday. I've been moving around in the room with my FWW and nursing staff . Pt does not present any acute distress and LOB during transfer and amb activity with supervision/ mod I. Pt reached his PLOF and baseline vital signs. Pt is safe to be d/c today and recommend to d/c home with assistance due to his activity tolerance in standing position. Pt reports he does need help to make meals. Frequency of Treatment Frequency Of Treatment Discharge Recommendations To Nursing Amount of Assist Needed Independent Standby Assistance 1 Person Assist Discharge Recommendations PT Discharge Recommendations Home Home with Assistance
--- NOTE | 2018-02-16 11:49 | CM.DANOTE ---
Discharge Planning/Care Management DCP/ Patient is a 67-year-old male with a history of unmanaged diabetes. Patient resides with two male roommates. Patient's medical needs can be complicated due to patients alcohol intake which he reports as 2/drinks daily. Patient denied any CD resources and declined any discharge assistance at this time. Plan: Likely discharge home when stable. CM team available as needed. CM Discharge Assessment Start: 02/16/18 11:46 Freq: Status: Active Protocol: Document 02/16/18 11:47 (Rec: 02/16/18 11:49 [id number]) Discharge Planning Assessment Assigned Poly Area Supervisor NOELLE Barrientos Advance Directives? No Advance Directives on File No History Provided By Patient Medical Record Has Patient been admitted in last 30 No days? Prior Living Arrangements House Household Members friend(s) other Comment Lives with two male roommates. Type of transporation used prior to Drives own vehicle admit Independent with ADL's Yes: With cane/4WW Is patient alert and oriented? Yes Needs Assistance With Home Chores / Shopping Caregiver for Another No Community Services used prior to Social Work admission: Comment followed by oncology DME Already Rented / Owned FWW / Walker Cane Comment Home Discharge Plan Home Transportation Arrangement Friend to provide. Referrals Initiated None needed Whiteboard Updated in Patient Room with Yes name and ext. # of Poly Area Supervisor Review Status In Process Please Provide Date Initial DC 02/16/18 Assessment Was Performed Next Review Type Continued Stay Review
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
--- NOTE | 2018-02-16 13:28 | P.DS_ITS ---
History of Present Illness Chief complaint: Low Blood Sugar Narrative: The patient seen in follow-up of being admitted for low blood sugar. Patient is well-known diabetic who was been on glyburide for approximately a year. Apparently could not tolerate metformin secondary to his renal disease. Apparently has had history of previous low blood sugars but nothing quite this intense. Apparently patient was found early in the morning screaming in his backyard. At that time he had blood sugar of 30. Paramedics were called he was given a pizza which he did knee. Really only drank alcohol during the day. Did need anything. Continued to have low blood sugars was ended up being evaluated by neighbors for screaming in the yd again. Sugar was low and he was brought to the emergency room. After usual methods of trying to get his sugar up he was unable to be consistently maintained and it was unclear whether he took extra glyburide or just was not eating enough but was unable to be adequately guarantee that he would continue to keep his sugars up despite holding his medicine. Was admitted. Patient otherwise has been feeling fine. He has had no chest pain shortness of breath orthopnea or other change. No fevers or chills. No cough. No urinary symptoms. No other changes. Not had any change in his bowel movements or blood in his stool. Past Medical history is is significant for: Diabetes mellitus type 2 Hypertension Renal failure chronic Edema Anemia Gout History of duodenal ulcer with hemorrhage History of chronic pain Past surgical history C2-T2 posterior spinal fusion, C3-C7 laminectomy, posterior spinal instrumentation T10-T12 Family history father 85 and healthy. Mother of type 1 diabetes at 34 years of age. Only child. 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 Good social support. History of alcoholism. Now drinking ?a? controlled drinking. Has never been to treatment. Discharge Providers Date of admission: 02/16/18 02:06 Primary care physician: Jim Quintana MD Consults: 02/16/18 01:35 Consult to Physician Routine Comment: Consulting Provider: Shawna Santoyo Reason for consultation: admission Has provider been notified: Yes 02/16/18 02:59 Consult to Dietitian, Adult Routine Comment: Reason For Exam: New admit hypoglycemia 02/16/18 08:26 Consult to Physical Therapy Evaluate & Treat Comment: adl eval for discharge Physician Instructions: Evaluate and Treat Discharge provider: Luke Schaefer MD Discharge Date: 02/16/18 Summary Discharge Diagnosis: Hypoglycemia Anemia Type 2 diabetes Chronic renal failure Weakness generalized Alcohol abuse Chronic pain Hospital Course: Hypoglycemia. Patient was treated overnight with IV fluids in his glyburide was held. Sugars remained stable throughout the night and in the morning his IV sugar was discontinued 4 hr later he was continued to be stable. Whether this was from overdose or not he needs to come off of his glyburide. Will allow this to happen with Dr. Quintana into 4 days Anemia. Patient has a history of multiple issues iron studies were ordered not back will follow up with Dr. Quintana but has been at issue intermittently with no definitive diagnosis. Will allow primary care to follow up. Type 2 diabetes. Will need alternative therapy. Patient will check his sugars 4 times a day and follow up with Dr. Quintana on Monday for redirection. Generalized weakness. Etiology is unclear as been long-standing combination of chronic pain but appears to be back to baseline as per physical therapy. Chronic renal failure. No change. Alcohol abuse. Patient has a history of very serious alcoholism. Now drinking occasionally we discussed his best option would be not to drink at all but at this time he would like to continue to drink will follow with Dr. Quintana. Chronic pain. Continue his usual medicines. Status at Discharge Cognitive/behavioral status at discharge: Stable Functional status at discharge: uses cane/walker Overall status at discharge: patient is back to baseline Time Spent with Patient Less than 30 minutes Exam Vital Signs (past 8 hours): - 02/16/18 07:23 02/16/18 08:22 02/16/18 11:46 Temperature 98.4 F 99.1 F Pulse Rate 85 Respiratory Rate 16 Blood Pressure 166/66 H Pulse Oximetry 94 93 Oxygen Delivery Method Room Air Objective Labs Result Diagrams: 02/15/18 23:39 02/15/18 23:39 Labs: Laboratory Results - last 24 hr 02/15/18 02/15/18 02/16/18 23:39 23:39 01:50 WBC 6.9 RBC 3.10 L Hgb 10.7 L Hct 31.5 L MCV 101.8 H MCH 34.7 H MCHC 34.1 RDW 13.7 Plt Count 200 Neut % (Auto) 84.5 H Lymph % (Auto) 7.8 L [place] % (Auto) 6.4 Eos % (Auto) 0.9 L Baso % (Auto) 0.4 Neut # (Auto) 5800 Sodium 138 Potassium 3.9 Chloride 97 L Carbon Dioxide 30 BUN 54 H Creatinine 2.00 H Estimated GFR 33.6 L BUN/Creatinine Ratio 27.0 H Glucose 87 Calcium 9.4 Total Bilirubin 0.6 AST 26 ALT 20 L Alkaline Phosphatase 67 Ammonia 22.0 Total Protein 7.0 Albumin 4.1 Globulin 2.9 Albumin/Globulin Ratio 1.4 Lipase 116 Nasal Screen MRSA (PCR) Urine Opiates Screen Ur Oxycodone Screen Urine Methadone Screen Ur Barbiturates Screen U Tricyclic Antidepress Ur Phencyclidine Scrn Ur Amphetamines Screen U Methamphetamines Scrn Ur MDMA Scrn (Ecstasy) U Benzodiazepines Scrn Urine Cocaine Screen U Marijuana (THC) Screen Ethyl Alcohol 02/16/18 02/16/18 02/16/18 01:50 03:00 06:05 WBC RBC Hgb Hct MCV MCH MCHC RDW Plt Count Neut % (Auto) Lymph % (Auto) [place] % (Auto) Eos % (Auto) Baso % (Auto) Neut # (Auto) Sodium Potassium Chloride Carbon Dioxide BUN Creatinine Estimated GFR BUN/Creatinine Ratio Glucose Calcium Total Bilirubin AST ALT Alkaline Phosphatase Ammonia Total Protein Albumin Globulin Albumin/Globulin Ratio Lipase Nasal Screen MRSA (PCR) Negative for mrsa Urine Opiates Screen Positive H Ur Oxycodone Screen Negative Urine Methadone Screen Negative Ur Barbiturates Screen Negative U Tricyclic Antidepress Negative Ur Phencyclidine Scrn Negative Ur Amphetamines Screen Negative U Methamphetamines Scrn Negative Ur MDMA Scrn (Ecstasy) Negative U Benzodiazepines Scrn Negative Urine Cocaine Screen Negative U Marijuana (THC) Screen Negative Ethyl Alcohol < 10 Discharge Plan Discharge Plan Patient Disposition: Home Discharge comment: check sugars am and dinner one day and lunch and dinner the next and alternate until seen on monday Discharge Med Rec/Prescriptions Prescriptions: Continue doxazosin 4 MG tablet 4 mg PO BEDTIME Qty: 0 RF: 0 allopurinol 100 mg tablet 100 mg PO BID RF: 0 furosemide 80 mg tablet 1 tab PO DAILY RF: 0 pantoprazole 40 mg tablet,delayed release (DR/EC) 1 tab PO DAILY RF: 0 citalopram 20 MG tablet 40 mg PO QDAY RF: 0 hydrocodone-acetaminophen 10-325 mg tablet 1 - 2 tab PO Q4-6H MDD 8 PRN (Reason: neck and chronic pain) RF: 0 lorazepam 0.5 mg tablet 0.5 mg PO TID PRN (Reason: Anxiety) RF: 0 Discontinued glipizide 5 MG tablet 5 mg PO DAILY Qty: 0 RF: 0 Follow up/Referrals: Jim Quintana MD [Primary Care Provider] - 02/20/18 12:00 am (Please call for appointment) Provider Discharge Instructions Diet: Carb-consistent/Diabetic Discharge Data Primary Care Provider: Jim Quintana Attending Provider: Shawna Santoyo Admit Date/Time: 02/16/18 02:06 Quality VTE Deep Vein Thrombosis/Pulmonary Embolism Present on Admission: No
--- NOTE | 2018-02-16 13:53 | PC.NURSE ---
BLOOD SUGARS COLLECTED Q HOUR AND ALL OVER 100 PLANNING FOR DISCHARGE TO HOME SOON- REMOVAL OF IV ACCESS WELL ASSISTED GETTING DRESSED REVIEWED D/C PLAN WITH PT TO HIS SATISFACTION AND ALL QUESTIONS ANSWERED
== END 2018-02-16 15:15 | disposition home or self-care (01) ==
LOC: ED 02-16 02:04 → ICU 02-16 02:13
PROVIDERS: Admitting Provider Family Medicine; Emergency Provider Emergency Medicine; Family Provider Family Medicine; PCP Family Medicine; Visit Provider Family Medicine
DX: E11.649 Type 2 diabetes mellitus with hypoglycemia without coma (principal); I10 Essential (primary) hypertension; N18.4 Chronic kidney disease, stage 4 (severe); D63.1 Anemia in chronic kidney disease; Z87.891 Personal history of nicotine dependence; E21.3 Hyperparathyroidism, unspecified; E66.9 Obesity, unspecified; M1A.30X0 Chronic gout due to renal impairment, unspecified site, without tophus (tophi); F10.20 Alcohol dependence, uncomplicated; R53.1 Weakness; G89.29 Other chronic pain
CPT/HCPCS: 36415; 80053; 80305; 80320; 82140; 82962; 83690; 85025; 87797; 93005; 93010; 96360; 96361; 97161; 99285; G0378; J1650

== ENCOUNTER → 2018-03-08 13:04 | Outpatient (CLI) | payer MEDICARE, SELFPAY ==
[2018-02-16 02:48] VITALS: BMI 38.2
[2018-03-08 13:22] LABS: Add Manual Diff / Slide Review NO; Basophils Percent Auto 0.6 % (0-2); Eosinophils Percent Auto 1.9 % (2-4); Hemoglobin 10.5 g/dL (13.5-17.5); Lymphocytes Percent Auto 16.7 % (25-40); Mean Corpuscular HGB Conc 33.8 % (30-36); Mean Corpuscular Hemoglobin 35.4 PG (26-34); Mean Corpuscular Volume 104.7 fL (80-100); Monocytes Percent Auto 9.2 % (3-14); Neutrophils Absolute Auto 4700 /uL (1500-7000); Neutrophils Percent Auto 71.6 % (50-75); Platelet Count 203 X10^3/uL (150-400); Red Blood Cell Count 2.96 X10^6/uL (4.5-5.9); Red Cell Distribution Width 14.4 % (11.6-14.8); White Blood Cell Count 6.5 X10^3/uL (4.5-11.0)
[2018-03-08 13:49] LABS: Alanine Aminotransferase 18 IU/L (21-72); Albumin 4.2 g/dL (3.5-5.0); Albumin Globulin Ratio 1.4 (1.0-2.8); Alkaline Phosphatase 68 U/L (38-126); Aspartate Aminotransferase 26 IU/L (17-59); Bilirubin Total 0.9 mg/dL (0.2-1.3); Blood Urea Nitrogen 36 mg/dL (9-20); Carbon Dioxide 29 mmol/L (22-32); Chloride 99 mmol/L (98-107); Estimated Glomerular Filt Rate 37.9 mL/min (>60); Globulin 2.9 g/dL (1.7-4.1); Glucose 195 mg/dL (80-110); HEMOLYSIS < 15 (0-50); Potassium 4.1 mmol/L (3.4-5.1); Sodium 139 mmol/L (137-145); Total Protein 7.1 g/dL (6.3-8.2)
[2018-03-08 14:13] VITALS: BP 164/91; PULSE 103; RESP 18; TEMP 36.8; O2SAT 94
--- NOTE | 2018-03-08 14:35 | ONC.APRN.PN ---
PN -Subjective Interval history: The patient is a 67-year-old male who is being seen in the clinic March 08, 2018. He carries a diagnosis of chronic anemia due to chronic kidney disease requiring Aranesp injections on an as needed basis. Previous visit was February 05, 2018 at which time hemoglobin was 11.3 hematocrit 33.3 no Aranesp injection was indicated. He presents today for routine triage. During the interval he was admitted to [facility] with a diagnosis of hypoglycemia. Glyburide was discontinued. He has a follow up with his PCP Dr Quintana 02/06/2019 (tomorrow). States sugars have been 200-300 Patient states overall he has been feeling ?the same?. He complains of chronic fatigue. Also chronic pain. No worsening shortness of breath. No chest pain. No issues with bladder or bowel. PMH: Obesity Stage 4 kidney disease Type 2 diabetes Chronic pain with narcotic dependence Hypertension Neck fracture status post surgical repair Bowel perforation with laparotomy ETOH abuse Home Medications and Allergies Home Medications Medication Instructions Recorded Confirmed Type doxazosin 4 mg PO BEDTIME #0 01/18/17 02/16/18 History allopurinol 100 mg PO BID 12/25/17 02/16/18 History citalopram 40 mg PO QDAY 12/25/17 02/16/18 History furosemide 1 tab PO DAILY 12/25/17 02/16/18 History pantoprazole 1 tab PO DAILY 12/25/17 02/16/18 History hydrocodone-acetaminophen 1 - 2 tab PO Q4-6H PRN MDD 8 02/16/18 02/16/18 History lorazepam 0.5 mg PO TID PRN 02/16/18 02/16/18 History Allergies Allergy/AdvReac Type Severity Reaction Status Date / Time latex Allergy Mild IRRITATION Verified 02/15/18 23:36 Sulfa (Sulfonamide AdvReac Mild N&V 1HOUR Verified 02/15/18 23:36 Antibiotics) AFTER RX, THINKS IT IS RELATED Exam - Constitutional positive no acute distress, positive obese - Routine HEENT Exam ENT: Present: mucous membranes moist, oropharynx clear - Routine Neck Exam Present: supple. Absent: lymphadenopathy - Routine Respiratory Exam Present: Clear to auscultation bilaterally. Absent: rales, rhonchi, wheezes - Routine Cardiovascular Exam Present: RRR, S1, S2. Absent: murmur, gallop, rubs, JVD - Routine Abdominal Exam Present: soft, normoactive bowel sounds. Absent: tenderness, distended, organomegaly Comments: obese abd no palpable adenopathy or organomegaly. - Routine Extremities Exam Absent: edema, calf tenderness - Routine Skin Exam Present: intact, normal turgor. Absent: petechiae, rash - Routine Neurological Exam Present: alert, oriented X3 - Routine Psychiatric Exam Present: normal affect Results - Labs Laboratory Last Values WBC 6.5 X10^3/uL (4.5-11.0) 03/08/18 13:11 RBC 2.96 X10^6/uL (4.5-5.9) L 03/08/18 13:11 Hgb 10.5 g/dL (13.5-17.5) L 03/08/18 13:11 Hct 31.0 % (41-53) L 03/08/18 13:11 MCV 104.7 fL (80-100) H 03/08/18 13:11 MCH 35.4 PG (26-34) H 03/08/18 13:11 MCHC 33.8 % (30-36) 03/08/18 13:11 RDW 14.4 % (11.6-14.8) 03/08/18 13:11 Plt Count 203 X10^3/uL (150-400) 03/08/18 13:11 Neut % (Auto) 71.6 % (50-75) 03/08/18 13:11 Lymph % (Auto) 16.7 % (25-40) L 03/08/18 13:11 [place] % (Auto) 9.2 % (3-14) 03/08/18 13:11 Eos % (Auto) 1.9 % (2-4) L 03/08/18 13:11 Baso % (Auto) 0.6 % (0-2) 03/08/18 13:11 Neut # (Auto) 4700 /uL (6808-3393) 03/08/18 13:11 Sodium 139 mmol/L (137-145) 03/08/18 13:11 Potassium 4.1 mmol/L (3.4-5.1) 03/08/18 13:11 Chloride 99 mmol/L (98-107) 03/08/18 13:11 Carbon Dioxide 29 mmol/L (22-32) 03/08/18 13:11 BUN 36 mg/dL (9-20) H 03/08/18 13:11 Creatinine 1.80 mg/dL (0.66-1.25) H 03/08/18 13:11 Estimated GFR 37.9 mL/min (>60) L 03/08/18 13:11 BUN/Creatinine Ratio 20.0 (6-22) 03/08/18 13:11 Glucose 195 mg/dL (80-110) H 03/08/18 13:11 Calcium 9.0 mg/dL (8.4-10.2) 03/08/18 13:11 Total Bilirubin 0.9 mg/dL (0.2-1.3) 03/08/18 13:11 AST 26 IU/L (17-59) 03/08/18 13:11 ALT 18 IU/L (21-72) L 03/08/18 13:11 Alkaline Phosphatase 68 U/L (38-126) 03/08/18 13:11 Total Protein 7.1 g/dL (6.3-8.2) 03/08/18 13:11 Albumin 4.2 g/dL (3.5-5.0) 03/08/18 13:11 Globulin 2.9 g/dL (1.7-4.1) 03/08/18 13:11 Albumin/Globulin Ratio 1.4 (1.0-2.8) 03/08/18 13:11 - Imaging Additional studies: Procedures Closure of skin and subcutaneous tissue of other sites (08/29/13) Colonoscopy (06/05/13) Control Bleeding in Gastrointestinal Tract, Via Natural or Artificial Opening Endoscopic (08/26/16) Injection or infusion of other therapeutic or prophylactic substance (03/23/13) Other endoscopy of small intestine (06/05/13) Other nonoperative respiratory measurements (06/09/11) Total knee replacement (04/09/14) Transfusion of Nonautologous Red Blood Cells into Peripheral Vein, Percutaneous Approach (08/26/16) Transfusion of packed cells (07/09/13) Assessment and Plan (1) Anemia in CKD (chronic kidney disease) Current visit: No Status: Acute 67-year-old male who carries a diagnosis of chronic anemia due to stage 4 chronic kidney disease. We provided the patient with Aranesp injections when indicated. No indication today for Aranesp noting hemoglobin 10.5 hematocrit 31.0. Guideline remains to provide the patient with Aranesp for hemoglobin less than 10. Patient has no acute complaints on exam today. He has appointment with his primary care provider tomorrow March 09, 2018. Return to clinic in 3 weeks time for visit with Dr. Tejada cbc cmp possible aranesp if indicated. Pt verbalizes understanding. - Time Spent with Patient 20 mins
== END ==
PROVIDERS: Family Provider Family Medicine; PCP Family Medicine; Visit Provider Nurse Practitioner Gerontology
DX: E11.22 Type 2 diabetes mellitus with diabetic chronic kidney disease (principal); I12.9 Hypertensive chronic kidney disease with stage 1 through stage 4 chronic kidney disease, or unspecified chronic kidney disease; N18.4 Chronic kidney disease, stage 4 (severe); D63.1 Anemia in chronic kidney disease
CPT/HCPCS: 36415; 80053; 85025; 99214

== ENCOUNTER 2018-03-22 14:40 | Inpatient (IN) | payer MEDICARE, SELFPAY ==
[2018-02-16 02:48] VITALS: BMI 38.2
[2018-03-22 14:53] VITALS: BP 149/68; PULSE 91; RESP 14; TEMP 36.3; O2SAT 97
[2018-03-22 15:58] LABS: Add Manual Diff / Slide Review NO; Basophils Absolute Auto 0 /uL (0-100); Basophils Percent Auto 0.2 % (0-2); Eosinophils Absolute Auto 100 /uL (0-450); Eosinophils Percent Auto 0.6 % (2-4); Hematocrit 29.2 % (41-53); Hemoglobin 9.7 g/dL (13.5-17.5); Lymphocytes Absolute Auto 900 /uL (1100-4500); Lymphocytes Percent Auto 8.6 % (25-40); Mean Corpuscular HGB Conc 33.2 % (30-36); Mean Corpuscular Hemoglobin 35.3 PG (26-34); Mean Corpuscular Volume 106.2 fL (80-100); Monocytes Absolute Auto 1000 /uL (0-900); Neutrophils Absolute Auto 8200 /uL (1500-7000); Neutrophils Percent Auto 80.6 % (50-75); Platelet Count 197 X10^3/uL (150-400); Red Blood Cell Count 2.75 X10^6/uL (4.5-5.9); Red Cell Distribution Width 13.6 % (11.6-14.8); White Blood Cell Count 10.1 X10^3/uL (4.5-11.0)
[2018-03-22 16:07] LABS: INR 0.9 (0.9-1.3); Prothrombin Time 10.5 SECONDS (10.1-12.7)
[2018-03-22 16:09] LABS: PTT Partial Thromboplastin Tim 33 SECONDS (26.4-36.2)
[2018-03-22] MEDS: SODIUM CHLORIDE 0.9% 1,000 ML 150 ML IV (16:09)
[2018-03-22 16:11] LABS: Acetaminophen < 10 ug/mL (10-30); Alanine Aminotransferase 44 IU/L (21-72); Albumin 3.6 g/dL (3.5-5.0); Albumin Globulin Ratio 1.3 (1.0-2.8); Alkaline Phosphatase 59 U/L (38-126); Aspartate Aminotransferase 63 IU/L (17-59); BUN Creatinine Ratio 17.5 (6-22); Bilirubin Total 0.8 mg/dL (0.2-1.3); Blood Urea Nitrogen 28 mg/dL (9-20); Calcium 8.8 mg/dL (8.4-10.2); Carbon Dioxide 29 mmol/L (22-32); Chloride 106 mmol/L (98-107); Estimated Glomerular Filt Rate 43.5 mL/min (>60); Ethanol (ETOH) < 10 mg/dL; Globulin 2.7 g/dL (1.7-4.1); Glucose 191 mg/dL (80-110); HEMOLYSIS < 15 (0-50); Potassium 3.2 mmol/L (3.4-5.1); Sodium 142 mmol/L (137-145); Total Protein 6.3 g/dL (6.3-8.2)
[2018-03-22 16:12] LABS: Lactate (Lactic Acid) 0.8 mmol/L (0.7-2.1); Salicylate < 1.0 mg/dL (<20)
[2018-03-22 16:13] VITALS: BP 190/82; PULSE 82; RESP 19; O2SAT 98
[2018-03-22 16:28] LABS: Prolactin 12.5 ng/mL (3.7-17.9)
[2018-03-22 16:35] LABS: Troponin I 0.052 ng/mL (0.01-0.034)
[2018-03-22 16:42] LABS: Thyroid Stimulating Hormone 1.22 uIU/mL (0.47-4.68)
[2018-03-22 17:17] VITALS: BP 178/82; PULSE 99; RESP 30; O2SAT 95
[2018-03-22] MEDS: SODIUM CHLORIDE 0.9% 1,000 ML 1000 ML IV (17:37)
[2018-03-22] MEDS: POTASSIUM CHLORIDE 20 MEQ/15 ML UDC 40 MEQ PO (17:56)
[2018-03-22 18:40] VITALS: BP 158/102; PULSE 67; RESP 20; TEMP 36.8; O2SAT 98
[2018-03-22 19:00] VITALS: BMI 39.4
--- NOTE | 2018-03-22 19:19 | ED.AMS ---
HPI - Altered Mental Status General Chief Complaint: Altered Mental Status Stated Complaint: Confusion Time Seen by Provider: 03/22/18 15:00 Source: patient and family Mode of arrival: ambulatory Limitations: no limitations History of Present Illness HPI narrative: CC 7-year-old male, former smoker, daily drinker presents with multiple family members for evaluation of gradually worsening confusion and generalized weakness over the past few days. Seems to have started with multiple episodes of diarrhea about 5 days ago. He denies recent antibiotics, travel, bad food or exposure to ill persons. He may have run out of his chronic pain medications just before the diarrhea started raising the suspicion of opioid withdrawal contributing to his diarrhea. Since then he has become increasingly weak, no longer possess in the strength to get out of bed and prepare meals, drink water or even take his meds. Furthermore the patient is a daily drinker and has not had any alcohol in the past few days but denies any shaking or agitation. The patient has had a slow decline over the past few months but a rather precipitous car changer the past 5 days. He lives at home with a roommate MD complaint: altered mental status and confusion Onset (ago): minute(s) Consistency of symptoms: getting worse Context: alcohol abuse and change in medication Related Data Home Medications Medication Instructions Recorded Confirmed allopurinol 200 mg PO QAM 12/25/17 03/22/18 citalopram 40 mg PO DAILY 12/25/17 03/22/18 furosemide 160 mg PO DAILY 12/25/17 03/22/18 pantoprazole 1 tab PO DAILY 12/25/17 03/22/18 hydrocodone-acetaminophen 1 - 2 tab PO Q4-6H PRN MDD 8 02/16/18 03/22/18 glimepiride 1 mg PO DAILY 03/22/18 03/22/18 Allergies Allergy/AdvReac Type Severity Reaction Status Date / Time latex Allergy Mild IRRITATION Verified 03/22/18 14:53 Sulfa (Sulfonamide AdvReac Mild N&V 1HOUR Verified 03/22/18 14:53 Antibiotics) AFTER RX, THINKS IT IS RELATED Review of Systems Constitutional Denies chills, Denies fever(s), Denies lethargy and Denies weakness Eyes Denies change in vision, Denies eye discharge, Denies irritation and Denies loss of vision ENT Ears, Nose, Mouth, and Throat: Denies change in voice, Denies neck pain and Denies sore throat Cardiovascular Denies chest pain, Denies irregular heart rhythm, Denies lightheadedness, Denies palpitations, Denies dyspnea, Denies dyspnea on exertion and Denies orthopnea Respiratory Denies cough, Denies dyspnea, Denies dyspnea on exertion and Denies wheezing Gastrointestinal Gastrointestinal: Denies abdominal pain, Denies change in bowel habits, Denies diarrhea, Denies nausea and Denies vomiting Genitourinary Denies hematuria, Denies flank pain, Denies urinary incontinence and Denies urinary urgency Musculoskeletal Denies neck pain Integumentary/Breasts Denies pruritus, Denies erythema, Denies rash and Denies wounds Neurologic Denies confusion, Denies loss of vision and Denies weakness Psychiatric Denies anxiety, Denies confusion, Denies depression, Denies homicidal ideation and Denies suicidal ideation Endocrine Denies palpitations Hematologic/Lymphatic Denies easy bruising Allergic/Immunologic Denies wheezing Exam Narrative Exam Narrative: GENERAL: 67-year-old male, morbidly obese is a bit disheveled and unkempt. He eventually answers accurately but is a bit confused HEAD: Atraumatic. Normocephalic. No temporal or scalp tenderness. EYES: Pupils equal round and reactive. Extraocular motions intact. No scleral icterus. No injection or drainage. ENT: Nose without bleeding, purulent drainage or septal hematoma. Throat without erythema, tonsillar hypertrophy or exudate. Uvula midline. Airway patent. NECK: Trachea midline. No JVD or lymphadenopathy. Supple, nontender, no meningeal signs. CARDIOVASCULAR: Regular rate and rhythm without murmurs, gallops, or rubs. RESPIRATORY: Clear to auscultation. Breath sounds equal bilaterally. No wheezes, rales, or rhonchi. GASTROINTESTINAL: Abdomen soft, non-tender, nondistended. No hepato-splenomegaly, or palpable masses. No guarding. EXTREMITIES: No clubbing, cyanosis, or edema. No joint tenderness, effusion, or edema noted. BACK: Nontender without deformity or crepitance. No flank tenderness. NEURO: AOx3. SKIN: No rash or erythema. Initial Vital Signs Initial Vital Signs: Vital Signs Temperature 97.4 F L 03/22/18 14:53 Pulse Rate 91 H 03/22/18 14:53 Respiratory Rate 14 03/22/18 14:53 Blood Pressure 149/68 H 03/22/18 14:53 Pulse Oximetry 97 03/22/18 14:53 Course Orders Ordered: ED Orders 03/22/18 15:27 Urine Culture Stat Urine Drug Screen, Rapid Stat EKG-12 Lead Stat 03/22/18 15:45 Blood Culture Stat 03/22/18 15:47 Acetaminophen Stat Complete Blood Count AUTO DIFF Stat Comprehensive Metabolic Panel Stat Ethanol (ETOH) Stat Lactate (Lactic Acid) Stat Partial Thromboplastin Time Stat Prolactin Stat Prothrombin Time INR Stat Salicylate Stat Thyroid Stimulating Hormone Stat Troponin I Stat 03/22/18 19:01 Education, smoking cessation ONGOING 03/23/18 05:00 Complete Blood Count AUTO DIFF Routine Comprehensive Metabolic Panel Routine Hydrocodone Bitart/Acetaminophen ([place] 10/325) 1 tab PO Q4-6H PRN PRN Reason: neck and chronic pain Allopurinol (Zyloprim) 200 mg PO QAM DAVID Citalopram Hydrobromide (Celexa) 40 mg PO DAILY DAVID Enoxaparin Sodium (Lovenox) 30 mg SUBCUT DAILY [facility] Furosemide (Lasix) 160 mg PO DAILY DAVID Glimepiride (Amaryl) 1 mg PO DAILY [facility] Sodium Chloride (Normal Saline 0.9%) 1,000 mls @ 125 mls/hr IV CONT DAVID Last Admin: 03/22/18 16:09 Dose: 150 mls/hr Naloxone HCl (Narcan) 0.2 mg IV Q2MIN PRN PRN Reason: Opiate Reversal Pantoprazole Sodium (Protonix) 40 mg PO DAILY DAVID Discontinued Medications Hydrocodone Bitart/Acetaminophen ([place] 5/325) 2 tab PO Q4HR PRN PRN Reason: Pain, Severe (7-10) Sodium Chloride (Normal Saline 0.9%) 1,000 mls @ 1,000 mls/hr IV BOLUS ONE Stop: 03/22/18 18:31 Last Infusion: 03/22/18 18:25 Dose: 0 mls/hr Admin: 03/22/18 17:37 Dose: 1,000 mls/hr Pantoprazole Sodium (Protonix) 20 mg PO 0600 [facility] Potassium Chloride (Potassium Chloride) 40 meq PO NOW ONE Stop: 03/22/18 17:37 Last Admin: 03/22/18 17:56 Dose: 40 meq Vital Signs - 8 hr 03/22/18 14:53 03/22/18 16:13 03/22/18 17:17 Temperature 97.4 F L Pulse Rate 91 H 82 99 H Respiratory Rate 14 19 30 H Blood Pressure 149/68 H Blood Pressure [Left Arm] 190/82 H 178/82 H Pulse Oximetry 97 98 95 MDM - Altered Mental Status Lab Data Result diagrams: 03/22/18 15:47 03/22/18 15:47 Lab Results 03/22/18 03/22/18 03/22/18 Range/Units 15:47 15:47 15:47 WBC 10.1 (4.5-11.0) X10^3/uL RBC 2.75 L (4.5-5.9) X10^6/uL Hgb 9.7 L (13.5-17.5) g/dL Hct 29.2 L (41-53) % MCV 106.2 H (80-100) fL MCH 35.3 H (26-34) PG MCHC 33.2 (30-36) % RDW 13.6 (11.6-14.8) % Plt Count 197 (150-400) X10^3/uL Neut % (Auto) 80.6 H (50-75) % Lymph % (Auto) 8.6 L (25-40) % [place] % (Auto) 10.0 (3-14) % Eos % (Auto) 0.6 L (2-4) % Baso % (Auto) 0.2 (0-2) % Neut # (Auto) 8200 H (2205-7115) /uL Lymph # (Auto) 900 L (6277-4975) /uL [place] # (Auto) 1000 H (0-900) /uL Eos # (Auto) 100 (0-450) /uL Baso # (Auto) 0 (0-100) /uL PT 10.5 (10.1-12.7) SECONDS INR 0.9 (0.9-1.3) APTT 33 (26.4-36.2) SECONDS Sodium 142 (137-145) mmol/L Potassium 3.2 L (3.4-5.1) mmol/L Chloride 106 (98-107) mmol/L Carbon Dioxide 29 (22-32) mmol/L BUN 28 H (9-20) mg/dL Creatinine 1.60 H (0.66-1.25) mg/dL Estimated GFR 43.5 L (>60) mL/min BUN/Creatinine Ratio 17.5 (6-22) Glucose 191 H (80-110) mg/dL Lactate (0.7-2.1) mmol/L Calcium 8.8 (8.4-10.2) mg/dL Total Bilirubin 0.8 (0.2-1.3) mg/dL AST 63 H (17-59) IU/L ALT 44 (21-72) IU/L Alkaline Phosphatase 59 (38-126) U/L Troponin I 0.052 H (0.01-0.034) ng/mL Total Protein 6.3 (6.3-8.2) g/dL Albumin 3.6 (3.5-5.0) g/dL Globulin 2.7 (1.7-4.1) g/dL Albumin/Globulin Ratio 1.3 (1.0-2.8) TSH (0.47-4.68) uIU/mL Prolactin 12.5 (3.7-17.9) ng/mL Salicylates < 1.0 (<20) mg/dL Acetaminophen < 10 L (10-30) ug/mL Ethyl Alcohol < 10 mg/dL 03/22/18 03/22/18 Range/Units 15:47 15:47 WBC (4.5-11.0) X10^3/uL RBC (4.5-5.9) X10^6/uL Hgb (13.5-17.5) g/dL Hct (41-53) % MCV (80-100) fL MCH (26-34) PG MCHC (30-36) % RDW (11.6-14.8) % Plt Count (150-400) X10^3/uL Neut % (Auto) (50-75) % Lymph % (Auto) (25-40) % [place] % (Auto) (3-14) % Eos % (Auto) (2-4) % Baso % (Auto) (0-2) % Neut # (Auto) (6100-6836) /uL Lymph # (Auto) (1186-4504) /uL [place] # (Auto) (0-900) /uL Eos # (Auto) (0-450) /uL Baso # (Auto) (0-100) /uL PT (10.1-12.7) SECONDS INR (0.9-1.3) APTT (26.4-36.2) SECONDS Sodium (137-145) mmol/L Potassium (3.4-5.1) mmol/L Chloride (98-107) mmol/L Carbon Dioxide (22-32) mmol/L BUN (9-20) mg/dL Creatinine (0.66-1.25) mg/dL Estimated GFR (>60) mL/min BUN/Creatinine Ratio (6-22) Glucose (80-110) mg/dL Lactate 0.8 (0.7-2.1) mmol/L Calcium (8.4-10.2) mg/dL Total Bilirubin (0.2-1.3) mg/dL AST (17-59) IU/L ALT (21-72) IU/L Alkaline Phosphatase (38-126) U/L Troponin I (0.01-0.034) ng/mL Total Protein (6.3-8.2) g/dL Albumin (3.5-5.0) g/dL Globulin (1.7-4.1) g/dL Albumin/Globulin Ratio (1.0-2.8) TSH 1.22 (0.47-4.68) uIU/mL Prolactin (3.7-17.9) ng/mL Salicylates (<20) mg/dL Acetaminophen (10-30) ug/mL Ethyl Alcohol mg/dL Point of Care Testing Glucose POC 189 MDM Narrative Medical decision making narrative: Patient is dehydrated and weak and can no longer care for himself at home. He requires hospitalization for stabilization of his condition as well as further evaluation moving forward which may include evaluation for the possibility of early onset dementia, physical therapy evaluation for ability to safely ambulate among others Discharge Plan Departure Patient Disposition: Admitted As Inpatient Clinical Impression: Acute dehydration, Weakness Discharge Date/Time: 03/22/18 18:53 Interventions: ED Discharge Assessment Last Done: 03/22/18 18:20 Admit Date/Time: 03/22/18 17:15 Admit Provider: Tyree Mcgregor
--- NOTE | 2018-03-22 19:20 | P.HP_ITS ---
History of Present Illness Date Patient Seen: 03/22/18 Time Patient Seen: 19:18 Chief complaint: Confusion Narrative: Patient with multiple medical problems including significant impact on mobility notes onset fiber 6 days ago diarrhea. Continued seemed to make him weaker over time to the point where he was unable to really get out of bed. He stopped summer most of his medications. He had run out of his hydrocodone and something else so that had an impact on him as well as he uses those medications routinely. The diarrhea continued with him weaker over time. He notes that last night he had a hard time getting to sleep his arms were twitchy so 1st he took a dose of melatonin that did seem to really help so a few hours later took another in when he was visited by his sister the would not respond to attempts to wake him up. So medics were called. In the emergency room he was evaluated suspected to be quite volume depleted, rather sedated, and somewhat confused, but no other clear issues were identified. When I met with him later in the evening he was more awake and alert He was admitted last month for I believe hypoglycemia, has history of diabetes and says that usually pretty well controlled. Family history includes no issues relevant to this admission. 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, arthropathy (Chronic) History of cervical fracture (Resolved) Surgical History History of colectomy (Resolved) Family & Social History Social History: household members friend(s),other Safety & Behavioral: Feels Safe in Current Yes Environment Tobacco & Substance use: Smoking Status Former smoker alcohol intake frequency 3 or more drinks per day Substance Use Type does not use Meds Home Medications Medication Instructions Recorded Confirmed Type allopurinol 200 mg PO QAM 12/25/17 03/22/18 History citalopram 40 mg PO DAILY 12/25/17 03/22/18 History furosemide 160 mg PO DAILY 12/25/17 03/22/18 History pantoprazole 1 tab PO DAILY 12/25/17 03/22/18 History hydrocodone-acetaminophen 1 - 2 tab PO Q4-6H PRN MDD 8 02/16/18 03/22/18 History glimepiride 1 mg PO DAILY 03/22/18 03/22/18 History Allergies Allergy/AdvReac Type Severity Reaction Status Date / Time latex Allergy Mild IRRITATION Verified 03/22/18 14:53 Sulfa (Sulfonamide AdvReac Mild N&V 1HOUR Verified 03/22/18 14:53 Antibiotics) AFTER RX, THINKS IT IS RELATED Review of Systems Review of Systems Generalized weakness, diarrhea, chronic neck and other joint pain Exam Vital Signs (past 8 hours): - 03/22/18 14:53 03/22/18 16:13 03/22/18 17:17 Temperature 97.4 F L Pulse Rate 91 H 82 99 H Respiratory Rate 14 19 30 H Blood Pressure 149/68 H Blood Pressure [Left Arm] 190/82 H 178/82 H Pulse Oximetry 97 98 95 Oxygen Delivery Method Room Air Narrative Exam Narrative: Morbidly obese man in no apparent distress. HEENT normocephalic atraumatic pupils are equal round and reactive to light extraocular movements are intact oropharynx appears somewhat dry but otherwise unremarkable with some dentures neck benign without jugular venous distention noted bruit the chest is clear heart has a regular rate and rhythm without murmur abdomen is soft nontender nondistended normoactive bowel tones no organomegaly or mass there is a midline surgical scar well healed. Extremities without edema pulses intact neurologically nonfocal. Objective Labs Result Diagrams: 03/22/18 15:47 03/22/18 15:47 Labs: Laboratory Results - last 24 hr 03/22/18 03/22/18 03/22/18 15:47 15:47 15:47 WBC 10.1 RBC 2.75 L Hgb 9.7 L Hct 29.2 L MCV 106.2 H MCH 35.3 H MCHC 33.2 RDW 13.6 Plt Count 197 Neut % (Auto) 80.6 H Lymph % (Auto) 8.6 L [place] % (Auto) 10.0 Eos % (Auto) 0.6 L Baso % (Auto) 0.2 Neut # (Auto) 8200 H Lymph # (Auto) 900 L [place] # (Auto) 1000 H Eos # (Auto) 100 Baso # (Auto) 0 PT 10.5 INR 0.9 APTT 33 Sodium 142 Potassium 3.2 L Chloride 106 Carbon Dioxide 29 BUN 28 H Creatinine 1.60 H Estimated GFR 43.5 L BUN/Creatinine Ratio 17.5 Glucose 191 H Lactate Calcium 8.8 Total Bilirubin 0.8 AST 63 H ALT 44 Alkaline Phosphatase 59 Troponin I 0.052 H Total Protein 6.3 Albumin 3.6 Globulin 2.7 Albumin/Globulin Ratio 1.3 TSH Prolactin 12.5 Salicylates < 1.0 Acetaminophen < 10 L Ethyl Alcohol < 10 03/22/18 03/22/18 15:47 15:47 WBC RBC Hgb Hct MCV MCH MCHC RDW Plt Count Neut % (Auto) Lymph % (Auto) [place] % (Auto) Eos % (Auto) Baso % (Auto) Neut # (Auto) Lymph # (Auto) [place] # (Auto) Eos # (Auto) Baso # (Auto) PT INR APTT Sodium Potassium Chloride Carbon Dioxide BUN Creatinine Estimated GFR BUN/Creatinine Ratio Glucose Lactate 0.8 Calcium Total Bilirubin AST ALT Alkaline Phosphatase Troponin I Total Protein Albumin Globulin Albumin/Globulin Ratio TSH 1.22 Prolactin Salicylates Acetaminophen Ethyl Alcohol Assessment & Plan (1) Diarrhea: Problem details: Ongoing times several days no clear exposures identified possibly medication related. Current visit: Yes Status: Acute (2) Volume depletion, gastrointestinal loss: Problem details: The result of the above item and with the patient so disabled seems had a difficult time replenishing fluids. Current visit: Yes Status: Acute (3) Diabetes type 2, controlled: Problem details: Long history of this but recent admission for hypoglycemia, And on a fairly small dose of medications so a little uncertain as to the status. Current visit: No Status: Chronic (4) Hypertension: Current visit: No Status: Chronic (5) Chronic pain: Problem details: On chronic narcotics for Current visit: No Status: Chronic (6) Morbid obesity due to excess calories: Problem details: Impacted overall health. Current visit: Yes Status: Acute (7) Alcoholism: Problem details: By history has been now several days off, will suspect withdrawal also start CIWA. Current visit: No Status: Acute (8) Hypokalemia: Problem details: Likely due to GI loss placement has been started will follow labs. Current visit: No Status: Acute Plan: Assessment/Plan Narrative: Will continue IV hydration close monitoring following labs, CIWA protocol as above, other issues as they arise.
--- NOTE | 2018-03-22 19:24 | ED_ITS ---
HPI - Altered Mental Status General Chief Complaint: Altered Mental Status Stated Complaint: Confusion Time Seen by Provider: 03/22/18 15:00 Source: patient and family Mode of arrival: ambulatory Limitations: no limitations History of Present Illness HPI narrative: CC 7-year-old male, former smoker, daily drinker presents with multiple family members for evaluation of gradually worsening confusion and generalized weakness over the past few days. Seems to have started with multiple episodes of diarrhea about 5 days ago. He denies recent antibiotics, travel, bad food or exposure to ill persons. He may have run out of his chronic pain medications just before the diarrhea started raising the suspicion of opioid withdrawal contributing to his diarrhea. Since then he has become increasingly weak, no longer possess in the strength to get out of bed and prepare meals, drink water or even take his meds. Furthermore the patient is a daily drinker and has not had any alcohol in the past few days but denies any shaking or agitation. The patient has had a slow decline over the past few months but a rather precipitous casino change attendant the past 5 days. He lives at home with a roommate MD complaint: altered mental status and confusion Onset (ago): minute(s) Consistency of symptoms: getting worse Context: alcohol abuse and change in medication Related Data Home Medications Medication Instructions Recorded Confirmed allopurinol 200 mg PO QAM 12/25/17 03/22/18 citalopram 40 mg PO DAILY 12/25/17 03/22/18 furosemide 160 mg PO DAILY 12/25/17 03/22/18 pantoprazole 1 tab PO DAILY 12/25/17 03/22/18 hydrocodone-acetaminophen 1 - 2 tab PO Q4-6H PRN MDD 8 02/16/18 03/22/18 glimepiride 1 mg PO DAILY 03/22/18 03/22/18 Allergies Allergy/AdvReac Type Severity Reaction Status Date / Time latex Allergy Mild IRRITATION Verified 03/22/18 14:53 Sulfa (Sulfonamide AdvReac Mild N&V 1HOUR Verified 03/22/18 14:53 Antibiotics) AFTER RX, THINKS IT IS RELATED Review of Systems Constitutional Denies chills, Denies fever(s), Denies lethargy and Denies weakness Eyes Denies change in vision, Denies eye discharge, Denies irritation and Denies loss of vision ENT Ears, Nose, Mouth, and Throat: Denies change in voice, Denies neck pain and Denies sore throat Cardiovascular Denies chest pain, Denies irregular heart rhythm, Denies lightheadedness, Denies palpitations, Denies dyspnea, Denies dyspnea on exertion and Denies orthopnea Respiratory Denies cough, Denies dyspnea, Denies dyspnea on exertion and Denies wheezing Gastrointestinal Gastrointestinal: Denies abdominal pain, Denies change in bowel habits, Denies diarrhea, Denies nausea and Denies vomiting Genitourinary Denies hematuria, Denies flank pain, Denies urinary incontinence and Denies urinary urgency Musculoskeletal Denies neck pain Integumentary/Breasts Denies pruritus, Denies erythema, Denies rash and Denies wounds Neurologic Denies confusion, Denies loss of vision and Denies weakness Psychiatric Denies anxiety, Denies confusion, Denies depression, Denies homicidal ideation and Denies suicidal ideation Endocrine Denies palpitations Hematologic/Lymphatic Denies easy bruising Allergic/Immunologic Denies wheezing Exam Narrative Exam Narrative: GENERAL: 67-year-old male, morbidly obese is a bit disheveled and unkempt. He eventually answers accurately but is a bit confused HEAD: Atraumatic. Normocephalic. No temporal or scalp tenderness. EYES: Pupils equal round and reactive. Extraocular motions intact. No scleral icterus. No injection or drainage. ENT: Nose without bleeding, purulent drainage or septal hematoma. Throat without erythema, tonsillar hypertrophy or exudate. Uvula midline. Airway patent. NECK: Trachea midline. No JVD or lymphadenopathy. Supple, nontender, no meningeal signs. CARDIOVASCULAR: Regular rate and rhythm without murmurs, gallops, or rubs. RESPIRATORY: Clear to auscultation. Breath sounds equal bilaterally. No wheezes , rales, or rhonchi. GASTROINTESTINAL: Abdomen soft, non-tender, nondistended. No hepato-splenomegaly , or palpable masses. No guarding. EXTREMITIES: No clubbing, cyanosis, or edema. No joint tenderness, effusion, or edema noted. BACK: Nontender without deformity or crepitance. No flank tenderness. NEURO: AOx3. SKIN: No rash or erythema. Initial Vital Signs Initial Vital Signs: Vital Signs Temperature 97.4 F L 03/22/18 14:53 Pulse Rate 91 H 03/22/18 14:53 Respiratory Rate 14 03/22/18 14:53 Blood Pressure 149/68 H 03/22/18 14:53 Pulse Oximetry 97 03/22/18 14:53 Course Orders Ordered: ED Orders 03/22/18 15:27 Urine Culture Stat Urine Drug Screen, Rapid Stat EKG-12 Lead Stat 03/22/18 15:45 Blood Culture Stat 03/22/18 15:47 Acetaminophen Stat Complete Blood Count AUTO DIFF Stat Comprehensive Metabolic Panel Stat Ethanol (ETOH) Stat Lactate (Lactic Acid) Stat Partial Thromboplastin Time Stat Prolactin Stat Prothrombin Time INR Stat Salicylate Stat Thyroid Stimulating Hormone Stat Troponin I Stat 03/22/18 19:01 Education, smoking cessation ONGOING 03/23/18 05:00 Complete Blood Count AUTO DIFF Routine Comprehensive Metabolic Panel Routine Hydrocodone Bitart/Acetaminophen ([place] 10/325) 1 tab PO Q4-6H PRN PRN Reason: neck and chronic pain Allopurinol (Zyloprim) 200 mg PO QAM DAVID Citalopram Hydrobromide (Celexa) 40 mg PO DAILY DAVID Enoxaparin Sodium (Lovenox) 30 mg SUBCUT DAILY [facility] Furosemide (Lasix) 160 mg PO DAILY DAVID Glimepiride (Amaryl) 1 mg PO DAILY [facility] Sodium Chloride (Normal Saline 0.9%) 1,000 mls @ 125 mls/hr IV CONT DAVID Last Admin: 03/22/18 16:09 Dose: 150 mls/hr Naloxone HCl (Narcan) 0.2 mg IV Q2MIN PRN PRN Reason: Opiate Reversal Pantoprazole Sodium (Protonix) 40 mg PO DAILY DAVID Discontinued Medications Hydrocodone Bitart/Acetaminophen ([place] 5/325) 2 tab PO Q4HR PRN PRN Reason: Pain, Severe (7-10) Sodium Chloride (Normal Saline 0.9%) 1,000 mls @ 1,000 mls/hr IV BOLUS ONE Stop: 03/22/18 18:31 Last Infusion: 03/22/18 18:25 Dose: 0 mls/hr Admin: 03/22/18 17:37 Dose: 1,000 mls/hr Pantoprazole Sodium (Protonix) 20 mg PO 0600 [facility] Potassium Chloride (Potassium Chloride) 40 meq PO NOW ONE Stop: 03/22/18 17:37 Last Admin: 03/22/18 17:56 Dose: 40 meq Vital Signs - 8 hr 03/22/18 14:53 03/22/18 16:13 03/22/18 17:17 Temperature 97.4 F L Pulse Rate 91 H 82 99 H Respiratory Rate 14 19 30 H Blood Pressure 149/68 H Blood Pressure [Left Arm] 190/82 H 178/82 H Pulse Oximetry 97 98 95 MDM - Altered Mental Status Lab Data Result diagrams: 03/22/18 15:47 03/22/18 15:47 Lab Results 03/22/18 03/22/18 03/22/18 Range/Units 15:47 15:47 15:47 WBC 10.1 (4.5-11.0) X10^3/uL RBC 2.75 L (4.5-5.9) X10^6/uL Hgb 9.7 L (13.5-17.5) g/dL Hct 29.2 L (41-53) % MCV 106.2 H (80-100) fL MCH 35.3 H (26-34) PG MCHC 33.2 (30-36) % RDW 13.6 (11.6-14.8) % Plt Count 197 (150-400) X10^3/uL Neut % (Auto) 80.6 H (50-75) % Lymph % (Auto) 8.6 L (25-40) % [place] % (Auto) 10.0 (3-14) % Eos % (Auto) 0.6 L (2-4) % Baso % (Auto) 0.2 (0-2) % Neut # (Auto) 8200 H (0251-1956) /uL Lymph # (Auto) 900 L (5509-4532) /uL [place] # (Auto) 1000 H (0-900) /uL Eos # (Auto) 100 (0-450) /uL Baso # (Auto) 0 (0-100) /uL PT 10.5 (10.1-12.7) SECONDS INR 0.9 (0.9-1.3) APTT 33 (26.4-36.2) SECONDS Sodium 142 (137-145) mmol/L Potassium 3.2 L (3.4-5.1) mmol/L Chloride 106 (98-107) mmol/L Carbon Dioxide 29 (22-32) mmol/L BUN 28 H (9-20) mg/dL Creatinine 1.60 H (0.66-1.25) mg/dL Estimated GFR 43.5 L (>60) mL/min BUN/Creatinine Ratio 17.5 (6-22) Glucose 191 H (80-110) mg/dL Lactate (0.7-2.1) mmol/L Calcium 8.8 (8.4-10.2) mg/dL Total Bilirubin 0.8 (0.2-1.3) mg/dL AST 63 H (17-59) IU/L ALT 44 (21-72) IU/L Alkaline Phosphatase 59 (38-126) U/L Troponin I 0.052 H (0.01-0.034) ng/mL Total Protein 6.3 (6.3-8.2) g/dL Albumin 3.6 (3.5-5.0) g/dL Globulin 2.7 (1.7-4.1) g/dL Albumin/Globulin Ratio 1.3 (1.0-2.8) TSH (0.47-4.68) uIU/mL Prolactin 12.5 (3.7-17.9) ng/mL Salicylates < 1.0 (<20) mg/dL Acetaminophen < 10 L (10-30) ug/mL Ethyl Alcohol < 10 mg/dL 03/22/18 03/22/18 Range/Units 15:47 15:47 WBC (4.5-11.0) X10^3/uL RBC (4.5-5.9) X10^6/uL Hgb (13.5-17.5) g/dL Hct (41-53) % MCV (80-100) fL MCH (26-34) PG MCHC (30-36) % RDW (11.6-14.8) % Plt Count (150-400) X10^3/uL Neut % (Auto) (50-75) % Lymph % (Auto) (25-40) % [place] % (Auto) (3-14) % Eos % (Auto) (2-4) % Baso % (Auto) (0-2) % Neut # (Auto) (8193-7855) /uL Lymph # (Auto) (4255-1483) /uL [place] # (Auto) (0-900) /uL Eos # (Auto) (0-450) /uL Baso # (Auto) (0-100) /uL PT (10.1-12.7) SECONDS INR (0.9-1.3) APTT (26.4-36.2) SECONDS Sodium (137-145) mmol/L Potassium (3.4-5.1) mmol/L Chloride (98-107) mmol/L Carbon Dioxide (22-32) mmol/L BUN (9-20) mg/dL Creatinine (0.66-1.25) mg/dL Estimated GFR (>60) mL/min BUN/Creatinine Ratio (6-22) Glucose (80-110) mg/dL Lactate 0.8 (0.7-2.1) mmol/L Calcium (8.4-10.2) mg/dL Total Bilirubin (0.2-1.3) mg/dL AST (17-59) IU/L ALT (21-72) IU/L Alkaline Phosphatase (38-126) U/L Troponin I (0.01-0.034) ng/mL Total Protein (6.3-8.2) g/dL Albumin (3.5-5.0) g/dL Globulin (1.7-4.1) g/dL Albumin/Globulin Ratio (1.0-2.8) TSH 1.22 (0.47-4.68) uIU/mL Prolactin (3.7-17.9) ng/mL Salicylates (<20) mg/dL Acetaminophen (10-30) ug/mL Ethyl Alcohol mg/dL Point of Care Testing Glucose POC 189 MDM Narrative Medical decision making narrative: Patient is dehydrated and weak and can no longer care for himself at home. He requires hospitalization for stabilization of his condition as well as further evaluation moving forward which may include evaluation for the possibility of early onset dementia, physical therapy evaluation for ability to safely ambulate among others Discharge Plan Departure Patient Disposition: Admitted As Inpatient Clinical Impression: Acute dehydration, Weakness Discharge Date/Time: 03/22/18 18:53 Interventions: ED Discharge Assessment Last Done: 03/22/18 18:20 Admit Date/Time: 03/22/18 17:15 Admit Provider: Tyree Mcgregor
[2018-03-22] MEDS: HYDROCODONE/ACET 10/325 TABLET 1 TAB PO (19:48)
[2018-03-22 20:35] LABS: Urine Amphetamines Negative (Negative); Urine Barbiturates Negative (Negative); Urine Cocaine Negative (Negative); Urine MDMA Negative (Negative); Urine Methamphetamines Negative (Negative); Urine Morphine/Opi cutoff 2000 Positive (Negative); Urine Phencyclidine Negative (Negative); Urine Tetrahydrocannabinol Negative (Negative)
[2018-03-22 20:36] LABS: Urine Benzodiazepines Positive (Negative); Urine Methadone Negative (Negative); Urine Oxycodone Negative (Negative); Urine Tricyclic Antidepressant Negative (Negative)
[2018-03-22] MEDS: ONDANSETRON 4 MG/2 ML INJ IV (22:25)
--- NOTE | 2018-03-22 22:31 | PC.NURSE ---
admission note- Patient arrived to room via stretcher at 1820. slider board used to transfer patient to bed. patient alert and oriented and forgetfull. patient able to make needs known to staff. admission questions completed. medications reviewed. Wells cath placed as ordered. patient has allergy to lasix, silicone cath used. 16Fr silcone cath with 10cc balloon place. patient tolerated well. cloudy heidy used noted. patient oriented to bed and bed control, room, lights, phone, and call rowe/tv remote. Safety measures in place. patient high fall risk. bed alarm activated. call rowe and phone [id number] reach. will continue to monitor.
[2018-03-23] VITALS (10 sets, daily range): BP systolic 126–155; BP diastolic 72–85; PULSE 63–92; RESP 19–27; TEMP 36.4–37.5; O2SAT 92–100
[2018-03-23] MEDS: LORazepam 2 MG/ML SYRINGE IV ×4 (00:48→22:57)
[2018-03-23] MEDS: SODIUM CHLORIDE 0.9% 1,000 ML 150 ML IV (00:51)
[2018-03-23] MEDS: LORazepam 1 MG TABLET 2 MG PO (04:27)
[2018-03-23] MEDS: HYDROCODONE/ACET 10/325 TABLET 1 TAB PO ×3 (04:27→22:15)
--- NOTE | 2018-03-23 05:18 | PC.NURSE ---
Pt is A and O to self, very delusional believes he is in a bar with friends in [place]. He asked if staff would pick him up a 1/2 gallon of Vodka. He is trying to get out of bed, has pulled out his IV, is trying to pull out his Wells, has had a BM in bed, small, and after four attempts, new IV could not be started, pt tried to strike staff, too jumpy. He has taken off his gown and bedding several times. He might be a candidate for a net bed. CIWA > 20. Trying to get IM access.
[2018-03-23] MEDS: LORazepam 2 MG/ML SYRINGE 4 MG IM (05:45)
--- NOTE | 2018-03-23 05:46 | PC.NURSE ---
Pt is desatting to 77% on RA, 3L NC stay at >93%.
--- NOTE | 2018-03-23 07:00 | PC.NURSE ---
0700- Pt drowsy, having 45 seconds of apnea. Responding minimally. When he does wake up pt is all over the bed and pulling at his higgins, taking blankets off. Around 0800 pts ativan started to work and he was hard to arouse. Coloring pale and respirations shallow. Pt would not keep his 02 nc on and sats dropped down to 79% as he is a mouth breathing. Called RT and pt put on a venti mask at 13L. Called and he phoned back, pt to ICU and report given to TAMARA Gant.
[2018-03-23 07:51] LABS: Add Manual Diff / Slide Review NO; Basophils Absolute Auto 0 /uL (0-100); Basophils Percent Auto 0.1 % (0-2); Eosinophils Absolute Auto 0 /uL (0-450); Eosinophils Percent Auto 0.2 % (2-4); Hematocrit 27.2 % (41-53); Lymphocytes Absolute Auto 1000 /uL (1100-4500); Lymphocytes Percent Auto 6.8 % (25-40); Mean Corpuscular Hemoglobin 35.6 PG (26-34); Mean Corpuscular Volume 107.9 fL (80-100); Monocytes Absolute Auto 1400 /uL (0-900); Monocytes Percent Auto 9.4 % (3-14); Neutrophils Absolute Auto 12400 /uL (1500-7000); Neutrophils Percent Auto 83.5 % (50-75); Platelet Count 200 X10^3/uL (150-400); Red Blood Cell Count 2.52 X10^6/uL (4.5-5.9); Red Cell Distribution Width 13.7 % (11.6-14.8); White Blood Cell Count 14.8 X10^3/uL (4.5-11.0)
[2018-03-23 08:18] LABS: Alanine Aminotransferase 39 IU/L (21-72); Albumin 3.2 g/dL (3.5-5.0); Albumin Globulin Ratio 1.3 (1.0-2.8); Alkaline Phosphatase 51 U/L (38-126); Aspartate Aminotransferase 49 IU/L (17-59); BUN Creatinine Ratio 18.6 (6-22); Bilirubin Total 0.9 mg/dL (0.2-1.3); Blood Urea Nitrogen 26 mg/dL (9-20); Calcium 8.1 mg/dL (8.4-10.2); Carbon Dioxide 25 mmol/L (22-32); Chloride 107 mmol/L (98-107); Estimated Glomerular Filt Rate 50.7 mL/min (>60); Globulin 2.5 g/dL (1.7-4.1); Glucose 201 mg/dL (80-110); Sodium 139 mmol/L (137-145); Total Protein 5.7 g/dL (6.3-8.2)
[2018-03-23 08:26] LABS: HEMOLYSIS 51 (0-50)
--- NOTE | 2018-03-23 08:47 | PC.NURSE ---
Addendum entered by Stalin Link R.N. 03/23/18 14:54: Spoke with Dr. Quintana. Reported ABG results. Reported awaiting DI RN to initiate IV access. No new orders received. Original Note: Addendum entered by Stalin Link R.N. 03/23/18 14:28: 1345- Spoke with Dr. Quintana via telephone. Reported assessment findings, O2 needs, pt without IV access and unable to obtain IV, reported CXR results. TORB for rocephin q24h, abg, and consult DI RN for midline access. Original Note: Addendum entered by Stalin Link R.N. 03/23/18 13:06: 1230- Pt becoming moderately fidgety and pulling at tele wires and IV site. Provided reorientation and educated to purpose of monitoring. Pt reports discomfort to back. Provided repositioning. Pt unable to state date/time. States name and that he is in [place]. Speech is mumbled/slurred with occasional clarity. Assessed CIWA at 9. Pt accidentally dislodged IV and removed O2. Was able to calm with decreased stimuli and drifts back to sleep. Reapplied O2 at 3L NC by mouth d/t pt mouth breathes. Noted pt to be apneic with SPO2 68%. Increased O2 to 10L for approximately 2 minutes to bring O2 back up to 93%. Tactile stimuli applied and pt slowly responds and RR stabilizes at 19 breaths/min. ETCO2 47. Pt's sister and daughter are at the bedside right now. They report that pt has never been diagnosed with sleep apnea but they suspect he has it as they have observed loud snoring and pt gasps for breath during sleep, especially if laying on back. Maintaining HOB greater than 50 degrees. Seizure precautions. Call light in reach. Curtains opened for direct visualization. Original Note: Rec'd pt from acute care to rm 103 via bed for reports of apnea after 8 mg total dosing of ativan. Pt on 40% venti mask with SPO2 94-99% and RR of 22. Pt does not rouse to loud verbal stimuli so sternal rub performed and pt opened eyes and moaned with some inaudible speech. With assessment, turning, and tactile stimuli pt is progressively more responsive and interactive. Even follows commands to move extremities and answering a few simple questions with mumbled speech. He is restless and attempting to get OOB. Dr. Quintana in to assess pt. Reported assessment findings and acute care RN reports. Attempted reorientation with pt. Unable to assess effectiveness. Placed seizure pads. Instructed on use of call light. Educated to fall risk. Close observation and bed alarm in use.
--- NOTE | 2018-03-23 09:05 | DI.RAD.S_ITS ---
PROCEDURE: XR CHEST 1V INDICATIONS: elevated wbc, decreased LOC, apnea TECHNIQUE: One view of the chest was acquired. COMPARISON: [facility], , CHEST 1 VIEW, 08/26/2016, 16:46. FINDINGS: Surgical changes and devices: Surgical spinal fixation hardware as before. Lungs and pleura: No pleural effusions or pneumothorax. Medial right lower lobe consolidative opacity. Scattered bilateral atelectasis Mediastinum: Mediastinal contours appear normal. Heart size is normal. Bones and chest wall: No suspicious bony lesions. Overlying soft tissues appear unremarkable. IMPRESSION: Medial right lower lobe consolidation, which appears increased and worrisome for pneumonia. Recommend followup with PA and lateral chest radiographs to document resolution after treatment, and exclude abnormal soft tissue/neoplasm. Scattered bilateral atelectasis and/or scarring. Dictated by: Stalin Champion M.D. on 03/23/2018 at 11:00 Approved by: Stalin Champion M.D. on 03/23/2018 at 11:02
[2018-03-23] MEDS: PANTOPRAZOLE 40 MG VIAL IV (10:31)
[2018-03-23] MEDS: FUROSEMIDE 100 MG/10 ML VIAL 60 MG IV ×2 (10:31→21:30)
[2018-03-23] MEDS: ENOXAPARIN 30 MG/0.3 ML SYRINGE SUBCUT (10:32)
[2018-03-23] MEDS: INSULIN ASPART 100 UNIT/ML INSULN PEN SUBCUT (12:20)
--- NOTE | 2018-03-23 14:36 | CM.DPNOTE ---
Addendum entered by Heide Cadet, THEATRICAL DRESSER 03/24/18 15:09: Discussed pt w/Dr Schaefer, pt remains confused and still not able to engage in conversation today. TAMARA Wan states maybe tomorrow bedside assessment can be attempted. Original Note: Reviewed chart and discussed pt's POC w/multiple nurses today. Pt's agitation escalated last night, delusional and aggressive; he received multiple doses of ativan, CIWA > 20. Today he was sent down to ICU after several periods of apnea, pale, requiring 13L O2. Pt is not able to engage in conversation today; Dr Quintana and TAMARA Aguilar following today. Family at bedside. This THEATRICAL DRESSER waiting on bedside assessment. Following closely. JW
[2018-03-23 14:38] LABS: HCO3 ABG 27 mmol/L (22-26); PCO2 ABG 48.7 mmHg (35-45); PO2 ABG 141 mmHg (80-100); TCO2 ABG 29 mmol/L (21-31); pH ABG 7.35 (7.35-7.45)
[2018-03-23 14:39] LABS: Oxygen Saturation ABG 99 % (95-100)
[2018-03-23 14:41] LABS: Fractionated Inspired Oxygen 3
[2018-03-23] MEDS: CEFTRIAXONE 1 GM/50 ML FROZ.PIGGY IV (18:48)
[2018-03-23] MEDS: SODIUM CHLORIDE 0.9% 1,000 ML 125 ML IV (18:49)
--- NOTE | 2018-03-23 21:34 | PC.NURSE ---
Addendum entered by Corina Augustine R.N. 03/23/18 23:05: 2300 - Pt unable to tolerate side lying position. Calling out for help. I got to get up. Repositioned, sitting up, reoriented. Pull me up. Reaching hands out, but keeping eyes closed. Snack provided. Restless with increasing agitation, CIWA 12, ativan given. Original Note: Addendum entered by Corina Augustine R.N. 03/23/18 22:34: 2200 -Pt awake, asking to get out of bed. Again keeping eyes mostly closed, but state the month is March. Still thinks that he is in his own home, asking to go to the livingroom or downstairs. Pt asking for a drink. Frequent attempts at reorientation, c/o back pain 10/10. 5 mg of hydrocodone given, (ordered as 10mg) r/t LOC. Pt able to sit up and take po med in applesauce, although he did chew the pill. Able to take sips of water without difficulty. Again asking to get out of bed, redirecting. +flatus, denies need to have BM. Pt agreeable to try left side lying position. Repositioned. Bed alarm on. Original Note: 1530 - DI Nurses, Greer and Kamille attempt to place midline, pt restless and agitated, disoriented. Unable to hold still, resistive to following direction. Unable to place line. 1730 - DI RN's return to for 2nd attempt at midline. Pt agitated, restless, pulling at linen, wires and gown. 3rd staff member present to assist with calming and redirecting pt. Able to take a few ice chips. Pt making multiple attempts to get out of bed. help me stand up. Pt keeping eyes closed, will open briefly with request. Asking pt to look around room and identify location. Unable to respond to place or situation. Asked for month and pt states Monday. Pt c/o of back and neck discomfort. States that he needs to sit up. Bed adjusted to sit up pt states that he need to lay down, then swinging feet over side stating that he needs to stand up. 1830 - Pt continues to be restless. 22g IV placed in right shoulder, Ativan given. CIWA 12. 0 - Pt resting. Respirations even, 24, sats 99% on 2L, however pt does use abd muscles for breathing. HOB elevated 30 degrees. Intermittent spasmic-like motion to LE. Seizure pads in place. Bed alarm on. Monitor.
[2018-03-24] VITALS (13 sets, daily range): BP systolic 122–172; BP diastolic 58–116; PULSE 63–92; RESP 15–30; TEMP 35.6–36.9; O2SAT 96–100
[2018-03-24] MEDS: MELATONIN 3 MG TABLET 6 MG PO (00:10)
[2018-03-24] MEDS: LORazepam 2 MG/ML SYRINGE IV ×10 (00:11→23:37)
[2018-03-24] MEDS: SODIUM CHLORIDE 0.9% 1,000 ML 125 ML IV (03:31)
[2018-03-24 05:26] LABS: Add Manual Diff / Slide Review NO; Basophils Absolute Auto 0 /uL (0-100); Basophils Percent Auto 0.3 % (0-2); Eosinophils Absolute Auto 300 /uL (0-450); Eosinophils Percent Auto 3.1 % (2-4); Hematocrit 25.2 % (41-53); Hemoglobin 8.6 g/dL (13.5-17.5); Lymphocytes Absolute Auto 1000 /uL (1100-4500); Lymphocytes Percent Auto 9.5 % (25-40); Mean Corpuscular Hemoglobin 36.3 PG (26-34); Mean Corpuscular Volume 106.7 fL (80-100); Monocytes Absolute Auto 1100 /uL (0-900); Monocytes Percent Auto 10.3 % (3-14); Neutrophils Absolute Auto 8100 /uL (1500-7000); Neutrophils Percent Auto 76.8 % (50-75); Platelet Count 177 X10^3/uL (150-400); Red Blood Cell Count 2.36 X10^6/uL (4.5-5.9); Red Cell Distribution Width 13.4 % (11.6-14.8); White Blood Cell Count 10.5 X10^3/uL (4.5-11.0)
[2018-03-24 05:32] LABS: Alanine Aminotransferase 33 IU/L (21-72); Albumin 3.1 g/dL (3.5-5.0); Albumin Globulin Ratio 1.2 (1.0-2.8); Alkaline Phosphatase 49 U/L (38-126); Aspartate Aminotransferase 29 IU/L (17-59); BUN Creatinine Ratio 13.8 (6-22); Bilirubin Total 0.4 mg/dL (0.2-1.3); Blood Urea Nitrogen 22 mg/dL (9-20); Calcium 7.9 mg/dL (8.4-10.2); Carbon Dioxide 29 mmol/L (22-32); Chloride 106 mmol/L (98-107); Estimated Glomerular Filt Rate 43.5 mL/min (>60); Globulin 2.5 g/dL (1.7-4.1); Glucose 172 mg/dL (80-110); HEMOLYSIS < 15 (0-50); Potassium 3.2 mmol/L (3.4-5.1); Sodium 141 mmol/L (137-145); Total Protein 5.6 g/dL (6.3-8.2)
[2018-03-24 05:36] LABS: B Type Natriuretic Peptide < 100 (<100)
[2018-03-24] MEDS: INSULIN ASPART 100 UNIT/ML INSULN PEN SUBCUT ×2 (06:06→12:33)
--- NOTE | 2018-03-24 06:37 | PC.NURSE ---
Patient very agitated and restless at midnight with CIWA 18, rambling speech, asking to go to bed attempting to get out of bed, unable to redirect or reorient, 2mg IV Ativan given per CIWA protocol. Over next 2 hrs, CIWA is 20-24, IV Ativan given per protocol. Patient did go to sleep after receiving a total of 6mg Ativan, apnea noted, 2-3L NC placed in mouth d/t mouth breathing, RR 20s, SR 80s-90s, BP 160s/80s, afebrile. Patient woke agitated at 0500 after lab draws, another 2mg Ativan given, effective. See assessment notes.
[2018-03-24] MEDS: PANTOPRAZOLE 40 MG VIAL IV (09:01)
[2018-03-24] MEDS: FUROSEMIDE 100 MG/10 ML VIAL 60 MG IV ×2 (09:01→20:00)
[2018-03-24] MEDS: ENOXAPARIN 30 MG/0.3 ML SYRINGE SUBCUT ×2 (09:01→20:00)
[2018-03-24] MEDS: KCL 20 MEQ IN NS 1,000 ML 125 MEQ IV ×2 (10:05→17:31)
--- NOTE | 2018-03-24 13:22 | P.PN_ITS ---
Subjective Date Patient Seen: 03/24/18 Time Patient Seen: 09:19 Interval history: Patient seen in cross coverage for Dr. Quintana. Seen in follow- up of dehydration and alcohol withdrawal. Has been mostly having issues with alcohol withdrawal. Has not been awake or alert much. When he is not agitated. Last 24 hr has been difficult. No other changes. Nurses feel as if his apneas been better although with his weight sometimes when he gets his neck in a certain position it becomes difficult no other changes. Patient is not waking up and being too interactive but has not been complaining of any pain. Exam Vital Signs (past 8 hours): - 03/24/18 05:20 03/24/18 08:00 03/24/18 09:44 Temperature 97.2 F L Pulse Rate 90 79 Respiratory Rate 26 H 22 Blood Pressure 172/84 H 122/61 Pulse Oximetry 96 100 99 03/24/18 10:00 03/24/18 12:00 Temperature 98.4 F Pulse Rate 88 72 Respiratory Rate 24 25 H Blood Pressure 155/79 H 127/58 L Pulse Oximetry 99 99 Oxygen Delivery Method Nasal Cannula Oxygen Flow Rate 3 Narrative Exam Narrative: Sleeping male no acute distress seems to be resting comfortably. Pupils appear normal. Mucous membranes moist. Neck is supple without adenopathy. Lungs are clear. Heart regular rate and rhythm. Abdomen is soft obese nontender no masses extremities without cyanosis clubbing edema. Neurologic exam he is minimally arousable. Moving all extremities appropriately. Mostly withdrawal to pain. Skin shows no rash. Objective Labs Result Diagrams: 03/24/18 04:54 03/24/18 04:54 Labs: Laboratory Results - last 24 hr 03/23/18 03/24/18 03/24/18 14:20 04:54 04:54 WBC 10.5 RBC 2.36 L Hgb 8.6 L Hct 25.2 L MCV 106.7 H MCH 36.3 H MCHC 34.0 RDW 13.4 Plt Count 177 Neut % (Auto) 76.8 H Lymph % (Auto) 9.5 L [place] % (Auto) 10.3 Eos % (Auto) 3.1 Baso % (Auto) 0.3 Neut # (Auto) 8100 H Lymph # (Auto) 1000 L [place] # (Auto) 1100 H Eos # (Auto) 300 Baso # (Auto) 0 ABG pH 7.35 ABG pCO2 48.7 H ABG pO2 141 H ABG HCO3 27 H ABG Total CO2 29 ABG O2 Saturation 99 ABG Base Excess 2.0 FiO2 3 Sodium 141 Potassium 3.2 L Chloride 106 Carbon Dioxide 29 BUN 22 H Creatinine 1.60 H Estimated GFR 43.5 L BUN/Creatinine Ratio 13.8 Glucose 172 H Calcium 7.9 L Total Bilirubin 0.4 AST 29 ALT 33 Alkaline Phosphatase 49 B-Natriuretic Peptide < 100 Total Protein 5.6 L Albumin 3.1 L Globulin 2.5 Albumin/Globulin Ratio 1.2 Assessment & Plan Plan: Assessment/Plan Narrative: Alcohol withdrawal. Probable main issue at this time. Patient is pretty sedated secondary to benzodiazepines that are needed to be used. Is otherwise vital signs stable. Does not appear to be having any focal issues. Will need to support over the next 48 hr hopefully start to wake up over that time. No other changes. Apneic episodes. Probably combination of obesity and alcohol withdrawal. Seems to be stable at this time will follow. Dehydration. Overall seems to be better hydrated. Will continue his IV hydration and re-evaluate in the a.m.. Hopefully will start taking p.o. soon. Hypokalemia. Mild. Not taking p.o. will add to IV fluids recheck a.m.. Type 2 diabetes. Currently on sliding scale. Will follow. Recently admitted for hypoglycemia. Hypertension. We will assess persistently. No issue at this time. Restart medicines when awake. Diarrhea. Seems to be resolving. Wonder how much of this was related to his withdrawal syndrome but will see how things go. Maybe will not need any more narcotics when he wakes up we will see how things go. Morbid obesity. This point would be nice to be lose some weight but certainly affecting him long-term will discuss. Alcoholism. Will have to see whether he will consider treatment. Will need to wake up for that. Infectious Disease. So far seems to be stable. GI prophylaxis I do not think we need treatment at this time but will follow closely. DVT prophylaxis pharmacy recommends increasing Lovenox will do today. Disposition. Clearly will be going anywhere for any time soon. Will have to reassess I am not sure where long-term placement will need to be. Quality VTE Deep Vein Thrombosis/Pulmonary Embolism Present on Admission: No
--- NOTE | 2018-03-24 13:37 | PC.NURSE ---
Day Shift Note Patient sleeping upon AM assessment with stable VS, oxygen sats 97% on 2L NC. Pt started becoming agitated and restless at about 0830 with CIWA of 13. Unable to accurately state where he is and calling out for Rosa. Able to follow commands on occasion such as squeezing fingers and opening eyes. Speech is mumbled/slurred and difficult to understand. Moves all extremities in unsuccessful attempts to get out of bed. RR in the 20-30s with abdominal muscle use noted. Crackles to bilateral lobes heard. Medicated with 2 mg IV Ativan per CIWA protocol; improved to 7 CIWA on reassessment. Pt did have 2 periods of apnea with oxygen sats to the 60s - rapidly recovered with tactile and verbal stimuli. Has been resting and sleeping throughout afternoon, awakens briefly to tactile stimuli before going back to sleep. CIWA 7. Wells catheter in place and draining clear yellow urine. Bed alarm is on.
[2018-03-24] MEDS: HYDROCODONE/ACET 10/325 TABLET 1 TAB PO ×2 (16:45→20:20)
[2018-03-24] MEDS: CEFTRIAXONE 1 GM/50 ML FROZ.PIGGY IV (18:41)
--- NOTE | 2018-03-24 19:00 | PC.NURSE ---
Addendum entered by Corina Augustine R.N. 03/24/18 21:45: 2130 - Continues to be restless and agitated. Occasionally mildly aggressive, talking to the children. Pulling and grabbing. Ativan given. 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 Original Note: Addendum entered by Corina Augustine R.N. 03/24/18 20:38: 1950 - Pt agitated and restless. Pulling at gown, tubes and wires. Calling out. God damn it, get me out of here. I am hurting. I can't stand it. Attempt to redirect, pt holding eyes shut, help me, help me. Attempt to reposition, PO intake provided. Pt continues to increase in agitation. Ativan given. 2019 - pt continues to call out, and c/o pain, My feet hurt I need to stand up. Unable to redirect. Vicodin given crushed in applesauce. Pt sitting in high fowlers position, restless. Bed alarm on. Original Note: 1629 - Pt awake and restless. Repeatedly asking to get out of bed. Generalized weakness. Calling out and talking with eyes closed. Will open them with request. Disoriented to place and situation. Frequently reoriented, however pt immediately calls out again. C/O back pain. Its killing me. Vicodin given crushed in applesauce, pt swallows without difficulty. Able to drink water. 1714 - Pt continues to be restless and anxious, increasing to agitation. Pt father at bedside. Pt briefly opened eyes, but unable to engage in conversation. Pulling at tubes and wires, pulling off gown. CIWA 12. Ativan given. 1829 - After a brief nap pt awake. Restless, less agitated. Again pulling at tubes and wires. Repeatedly asking to get out of bed. I got to stand up. Please, help me. I am starving. Pt set up. Full assist with po intake, glucerna and apple sauce. Pt continues to be restless and c/o pain and discomfort. Mildly diaphoretic. Full bed bath given. ROM with extremities. Back rub, linen changed. Refuse side lying position. Warm blankets. Pt resting briefly. sats decrease to the 70's on RA while asleep. Attempt replace O2, Pt initially shaking head side to side, and the pulling off tubing, but eventually left in place. Bed alarm on. Seizure pads in place.
[2018-03-25] VITALS (15 sets, daily range): BP systolic 113–180; BP diastolic 46–102; PULSE 63–87; RESP 14–23; TEMP 36.3–36.8; O2SAT 93–100
[2018-03-25] MEDS: HYDROCODONE/ACET 10/325 TABLET 1 TAB PO (00:01)
[2018-03-25] MEDS: LORazepam 2 MG/ML SYRINGE IV ×10 (00:38→21:57)
[2018-03-25] MEDS: KCL 20 MEQ IN NS 1,000 ML 125 MEQ IV (03:22)
[2018-03-25] MEDS: HYDROMORPHONE 2 MG INJ 1 MG IV (04:00)
[2018-03-25 05:33] LABS: Add Manual Diff / Slide Review NO; Basophils Absolute Auto 0 /uL (0-100); Basophils Percent Auto 0.4 % (0-2); Eosinophils Absolute Auto 300 /uL (0-450); Eosinophils Percent Auto 3.5 % (2-4); Hematocrit 24.7 % (41-53); Hemoglobin 8.3 g/dL (13.5-17.5); Lymphocytes Absolute Auto 1000 /uL (1100-4500); Lymphocytes Percent Auto 11.5 % (25-40); Mean Corpuscular HGB Conc 33.5 % (30-36); Mean Corpuscular Hemoglobin 35.7 PG (26-34); Mean Corpuscular Volume 106.5 fL (80-100); Monocytes Absolute Auto 1000 /uL (0-900); Monocytes Percent Auto 11.8 % (3-14); Neutrophils Absolute Auto 6400 /uL (1500-7000); Neutrophils Percent Auto 72.8 % (50-75); Platelet Count 187 X10^3/uL (150-400); Red Blood Cell Count 2.32 X10^6/uL (4.5-5.9); Red Cell Distribution Width 13.3 % (11.6-14.8); White Blood Cell Count 8.7 X10^3/uL (4.5-11.0)
[2018-03-25 05:39] LABS: Alanine Aminotransferase 29 IU/L (21-72); Albumin Globulin Ratio 1.3 (1.0-2.8); Alkaline Phosphatase 47 U/L (38-126); Aspartate Aminotransferase 23 IU/L (17-59); BUN Creatinine Ratio 13.6 (6-22); Bilirubin Total 0.4 mg/dL (0.2-1.3); Blood Urea Nitrogen 19 mg/dL (9-20); Calcium 7.9 mg/dL (8.4-10.2); Carbon Dioxide 29 mmol/L (22-32); Chloride 107 mmol/L (98-107); Estimated Glomerular Filt Rate 50.7 mL/min (>60); Globulin 2.4 g/dL (1.7-4.1); Glucose 134 mg/dL (80-110); HEMOLYSIS < 15 (0-50); Potassium 3.2 mmol/L (3.4-5.1); Sodium 141 mmol/L (137-145); Total Protein 5.4 g/dL (6.3-8.2)
--- NOTE | 2018-03-25 06:43 | PC.NURSE ---
Patient very restless and agitated at midnight with CIWA 9 and quickly increasing to 18-20, patient occasionally able to state [place] when asked about place, said Trump when asked about current , President, but not able to answer any other questions or follow many directions, took PO Vicodin with pudding and water without difficulty. 2mg IV Ativan given per CIWA protocol, total of 14mg by 0330 with no effect, could not deescalate patient or keep him from pulling at lines and tubes, continuously attempting to get OOB, saying I gotta go get me up get them off of me I have to got to bed Patient c/o pain to back and feet, does display non-verbal pain. Soft wrist restraints placed to keep him from pulling out lines, Dr Schaefer notified of above information, order received to continue restraints and for 1mg IV Dilaudid prn. After 1mg Dilaudid given at 0340, patient relaxed and slept. 2-4L NC needed while asleep for brief apnea, resolved. See assessment notes.
[2018-03-25] MEDS: FUROSEMIDE 100 MG/10 ML VIAL 60 MG IV ×2 (08:46→20:55)
[2018-03-25] MEDS: PANTOPRAZOLE 40 MG VIAL IV (08:46)
[2018-03-25] MEDS: ENOXAPARIN 30 MG/0.3 ML SYRINGE SUBCUT ×2 (08:47→20:55)
[2018-03-25] MEDS: CITALOPRAM 20 MG TABLET 40 MG PO (08:47)
[2018-03-25] MEDS: HYDROMORPHONE 1 MG INJ IV ×5 (09:08→22:13)
[2018-03-25 10:00] LABS: Magnesium 1.2 mg/dL (1.6-2.3)
--- NOTE | 2018-03-25 10:14 | PM.PN.1 ---
Subjective Date Patient Seen: 03/25/18 Time Patient Seen: 10:15 Interval history: Patient seen in follow-up of change in mental status metabolic encephalopathy alcohol withdrawal. Patient has been increasingly agitated last night required restraints. The Ativan seems to be working. No other changes. Quiet this morning. Has been complaining of pain in his back and his left leg. No other changes. Intermittently awake did take an oral medicine this morning. Exam Vital Signs (past 8 hours): - 03/25/18 03:20 03/25/18 04:15 03/25/18 06:32 Temperature 98.0 F Pulse Rate 81 74 63 Respiratory Rate 23 18 14 Blood Pressure 180/95 H 138/77 142/59 H Pulse Oximetry 99 96 100 03/25/18 07:37 03/25/18 08:01 Temperature 98.1 F Pulse Rate 87 Respiratory Rate 18 Blood Pressure 142/59 H Pulse Oximetry 98 93 Oxygen Delivery Method Room Air Oxygen Flow Rate 0 Narrative Exam Narrative: Alert obese male lying in bed minimally responsive HEENT exam mucous membranes moist. Eyes are PERRLA. Neck supple without adenopathy JVD or bruits. Lungs are clear. Heart regular rate and rhythm. Abdomen is soft positive bowel sounds nontender. Did not roll limb. Left leg shows good pulses no capillary refill no other changes. Neurologic is withdrawing to pain Objective Labs Result Diagrams: 03/25/18 04:50 03/25/18 04:50 Labs: Laboratory Results - last 24 hr 03/25/18 03/25/18 03/25/18 04:50 04:50 04:50 WBC 8.7 RBC 2.32 L Hgb 8.3 L Hct 24.7 L MCV 106.5 H MCH 35.7 H MCHC 33.5 RDW 13.3 Plt Count 187 Neut % (Auto) 72.8 Lymph % (Auto) 11.5 L [place] % (Auto) 11.8 Eos % (Auto) 3.5 Baso % (Auto) 0.4 Neut # (Auto) 6400 Lymph # (Auto) 1000 L [place] # (Auto) 1000 H Eos # (Auto) 300 Baso # (Auto) 0 Sodium 141 Potassium 3.2 L Chloride 107 Carbon Dioxide 29 BUN 19 Creatinine 1.40 H Estimated GFR 50.7 L BUN/Creatinine Ratio 13.6 Glucose 134 H Calcium 7.9 L Magnesium 1.2 L Total Bilirubin 0.4 AST 23 ALT 29 Alkaline Phosphatase 47 Total Protein 5.4 L Albumin 3.0 L Globulin 2.4 Albumin/Globulin Ratio 1.3 Assessment & Plan Plan: Assessment/Plan Narrative: Alcohol withdrawal. Still a major issue and the primary problem that were having. Ativan has been aggressively used which is still not adequately controlling. Will try oral gabapentin 100 t.i.d. see if that helps. Hopefully will be improving over the next 24 hr. If not will have to re-evaluate his mental status certainly does not appear to be focal in any way. Apneic episodes. Probably combination of sleep apnea and medication. Certainly Dilaudid does not help this but has helped him calmed down some. Dehydration. Overall seems to be better hydrated. Will continue his IV hydration and re-evaluate in the a.m.. Hopefully will start taking in next 24 hr Hypokalemia. Still present we will increase IV medication and follow from there. Magnesium is low so will replace that should help recheck a.m. Decreased magnesium. Will replace recheck and follow. Type 2 diabetes. Currently on sliding scale. Will follow. Recently admitted for hypoglycemia. Hypertension. We will assess persistently. No issue at this time. Restart medicines when awake. Diarrhea. Seems to be resolving. Wonder how much of this was related to his withdrawal syndrome but will see how things go. Maybe will not need any more narcotics when he wakes up we will see how things go. Morbid obesity. This point would be nice to be lose some weight but certainly affecting him long-term will discuss. Alcoholism. Hope will be able to get him can considered in treatment. Will readdress once he is awake suspect that will be a few days Infectious Disease. Pneumonia on x-ray on the . Certainly no evidence of fever will check procalcitonin and see where we are at. Consider discontinuing medicines tomorrow GI prophylaxis I do not think we need treatment at this time but will follow closely. DVT prophylaxis pharmacy recommends increasing Lovenox will do today. Disposition. Clearly will be going anywhere for any time soon. Will have to reassess I am not sure where long-term placement will need to be. Time Spent With Patient Time with patient: Greater than 35 minutes Quality VTE Deep Vein Thrombosis/Pulmonary Embolism Present on Admission: No
[2018-03-25] MEDS: KCL 40 MEQ IN NS 1,000 ML 125 MEQ IV ×2 (10:21→20:26)
[2018-03-25] MEDS: MAGNESIUM SULFATE 2 GM/50 ML PIGGYBACK IV (10:21)
[2018-03-25 10:28] LABS: Procalcitonin 0.07 ng/mL (<0.5)
[2018-03-25] MEDS: INSULIN ASPART 100 UNIT/ML INSULN PEN SUBCUT (13:04)
[2018-03-25] MEDS: GABAPENTIN 100 MG CAPSULE PO (13:04)
--- NOTE | 2018-03-25 13:13 | CM.DPC ---
DCP Cont: Per MD, pt still not medically stable for d/c yet and requiring sedation due to aggitation and CIWA. Per RT, pt requiring 2L oxygen mask at this time. Per RN this morning, pt was not appropriate for bedside assessment as he was not alert and oriented and CIWA scores ranging from 9-20. SW checked in with [employer] after lunch around 1300 and pt still in soft wrist restraints and was given Ativan as he was still occasionally pulling on lines and unable to follow directives. Pt still not appropriate for bedside assessment and SW will try again later today if possible or tomorrow. Plan: SW to follow closely for bedside assessment when pt more medically appropriate and able to participate in goal directed discussion. NOELLE Vinson
--- NOTE | 2018-03-25 14:33 | PC.NURSE ---
Pt restless and agitated when awake, stating Hurry up, I need to get up or words similar. Moments of clarity when he can say he is from [place]. Reports pain in back and legs - given dilaudid 1mg x2 this shift - afterwhich pt slept comfortably. Noted periods of apnea and de-sat of O2 at this time. RT placed mask which kept O2 sats in the high 90s while sleeping. Given total of 3mg of ativan this shift. CIWA 9 and 13. Pt always cooperative and noncombative even in moments of restlessness and agitation. Skin remains intact except for abrasions of bilat LEs and forehead and bruising on right hip area. Wells remains in place, draining clear yellow urine, pt attempting to pull at it if hands are not restrained. Restraints remain in place due to pt's attempts to pull at tubing and get oob. Pt given 2QH turns and close observation maintained. Restraints released during turns and when hygiene cares given.
[2018-03-25] MEDS: CEFTRIAXONE 2 GM/50 ML FROZ.PIGGY IV (18:10)
[2018-03-26] VITALS (13 sets, daily range): BP systolic 122–184; BP diastolic 67–95; PULSE 72–110; RESP 17–28; TEMP 35.8–37.1; O2SAT 94–100
[2018-03-26] MEDS: LORazepam 2 MG/ML SYRINGE IV ×11 (00:30→21:20)
--- NOTE | 2018-03-26 00:45 | PC.NURSE ---
Completely disoriented to time, place, person, continually calling out Help me help me ect or mommie mommie, ect unable to reorient. Ativan 1mg IV given per protocol for CIWA of 10, unable to get pt to answer if having any visual or auditory hallucinations or pain, Just help me and mommie. Even after Ativan very restless and pulling at catheter and O2 off and trying to get out of bed and continually calling out.
[2018-03-26] MEDS: HYDROMORPHONE 1 MG INJ IV ×9 (01:30→22:23)
--- NOTE | 2018-03-26 04:35 | PC.NURSE ---
Unable to follow simple commands i.e. put your hand down. Then raises the other arm. CIWA and pain needs not met.
[2018-03-26] MEDS: KCL 40 MEQ IN NS 1,000 ML 125 MEQ IV ×3 (05:00→22:09)
[2018-03-26 05:30] LABS: Alanine Aminotransferase 31 IU/L (21-72); Albumin 3.5 g/dL (3.5-5.0); Albumin Globulin Ratio 1.3 (1.0-2.8); Alkaline Phosphatase 60 U/L (38-126); Aspartate Aminotransferase 30 IU/L (17-59); BUN Creatinine Ratio 13.6 (6-22); Bilirubin Total 0.6 mg/dL (0.2-1.3); Blood Urea Nitrogen 19 mg/dL (9-20); Calcium 8.8 mg/dL (8.4-10.2); Carbon Dioxide 28 mmol/L (22-32); Chloride 107 mmol/L (98-107); Estimated Glomerular Filt Rate 50.7 mL/min (>60); Globulin 2.8 g/dL (1.7-4.1); Glucose 147 mg/dL (80-110); HEMOLYSIS < 15 (0-50); Magnesium 1.4 mg/dL (1.6-2.3); Potassium 4.2 mmol/L (3.4-5.1); Sodium 143 mmol/L (137-145); Total Protein 6.3 g/dL (6.3-8.2)
[2018-03-26] MEDS: INSULIN ASPART 100 UNIT/ML INSULN PEN SUBCUT ×2 (06:09→12:16)
--- NOTE | 2018-03-26 06:39 | PC.NURSE ---
At 0600ish when trying to reposition pt explained to him what we were going to do as his feet were out of the bed and he was at least 18inches down in the bed, he said no and grabbed the side rails, when we removed his hands from the side rails again explaining we were going to move him up in bed, he derek back his fist as if to use it to hit, we moved him and then left him alone.
--- NOTE | 2018-03-26 08:10 | PM.PN.1 ---
Subjective Date Patient Seen: 03/26/18 Time Patient Seen: 08:10 Interval history: Patient seen in follow-up of alcohol withdrawal. Overall less combative. Still not quite waking up completely. No focal defect. Is talking but not making sense. No other changes. Exam Vital Signs (past 8 hours): - 03/26/18 02:00 03/26/18 04:00 03/26/18 06:00 Temperature 96.5 F L Pulse Rate 90 94 H 72 Respiratory Rate 22 26 H 24 Blood Pressure 122/80 182/70 H 171/67 H Pulse Oximetry 100 03/26/18 07:20 Temperature Pulse Rate Respiratory Rate Blood Pressure Pulse Oximetry 97 Oxygen Delivery Method Room Air Oxygen Flow Rate 0 Narrative Exam Narrative: Alert obese male in no acute distress. Lungs are clear. Heart regular rate and rhythm. Neurologic exam patient does rouse but does not talk no other significant changes. Nonfocal. Moving all extremities. Objective Labs Result Diagrams: 03/25/18 04:50 03/26/18 05:00 Labs: Laboratory Results - last 24 hr 03/25/18 03/25/18 03/26/18 04:50 04:50 05:00 Sodium Potassium Chloride Carbon Dioxide BUN Creatinine Estimated GFR BUN/Creatinine Ratio Glucose Calcium Magnesium 1.2 L 1.4 L Total Bilirubin AST ALT Alkaline Phosphatase Total Protein Albumin Globulin Albumin/Globulin Ratio Procalcitonin 0.07 03/26/18 05:00 Sodium 143 Potassium 4.2 Chloride 107 Carbon Dioxide 28 BUN 19 Creatinine 1.40 H Estimated GFR 50.7 L BUN/Creatinine Ratio 13.6 Glucose 147 H Calcium 8.8 Magnesium Total Bilirubin 0.6 AST 30 ALT 31 Alkaline Phosphatase 60 Total Protein 6.3 Albumin 3.5 Globulin 2.8 Albumin/Globulin Ratio 1.3 Procalcitonin Assessment & Plan Plan: Assessment/Plan Narrative: Alcohol withdrawal. Still primary issue. He not resolving but will see how things go. Hoping this next 24 hr he wakes up and we can begin physical therapy and looking at treatment. Apneic episodes. Improved. Will be better once we do not have to give him so much medication. Dehydration. Stable. Will continue IV hydration but is at a good place right now. Hypokalemia. Appears to be resolved. Decreased magnesium. Still needs to be replaced 2 g will be given today Type 2 diabetes. Currently on sliding scale. Will follow. Recently admitted for hypoglycemia. Hypertension. We will assess persistently. No issue at this time. Restart medicines when awake. Diarrhea. Resolved. Morbid obesity. This point would be nice to be lose some weight but certainly affecting him long-term will discuss. Alcoholism. Hope will be able to get him can considered in treatment. Will readdress once he is awake suspect that will be a few days Infectious Disease. Mild elevation of procalcitonin. Will continue antibiotics and recheck in a few days. GI prophylaxis I do not think we need treatment at this time but will follow closely. DVT prophylaxis pharmacy recommends increasing Lovenox will do today. Disposition. Continue care. Will be discharged earliest later this week Quality VTE Deep Vein Thrombosis/Pulmonary Embolism Present on Admission: No
--- NOTE | 2018-03-26 08:54 | PC.NURSE ---
Addendum entered by Stalin Link R.N. 03/26/18 14:10: 1200- Pt continuing to cry out and growing progressively more agitated. Help me! Hurry up! Hurry up! Ow! Attempted to redirect/reorient unsuccessfully. Administered IV ativan and IV dilaudid for CIWA and pain per order at 1215. Pt was able to calm and drift off to sleep post-administration but was noted to be intermittently sating 79% on RA. Applied 2L NC to mouth as pt is mouth breathing at this time and SPO2 increases to 100%. Having some mild apnea that was alleviated with positioning. RR 20-23, even/unlabored. Original Note: Addendum entered by Stalin Link R.N. 03/26/18 10:42: I need to go! Help me! Mommy! Pt is noted to be restless, picking at cords/lines/wires, moving legs OOB. Attempted redirection and reorientation without success. Pt opens eyes and tracks the ceiling and [place] and calls out for his mother. Difficult to assess BP as pt is thrashing arms around. BP noted at 182/70 and HR 110s with activity. SPO2 98% on RA. RR 28. Medicated with PRN ativan per CIWA protocol and IV dilaudid for FLACC 9/10. Attempted repositioning, but pt is restless and thrashing around bed. Provided hygiene care and oral care. Continuing seizure pads, bed alarm, direct visualization. Placed yellow socks. Original Note: Rec'd pt in bed with eyes open calling out Help me! Hurry up! I need help! Pt unable to state specific need. Answering simple questions intermittently with yes/no responses. Unable to state date/time, situation. Rambling non-sensically and appears to be tracking something on the ceiling. He does relate that he is having pain in his back but is unable to rate it on 0-10 pain scale. He is restless, attempting to sit up, drawing legs up and then attempting to get OOB. HR 110s-120s, ST. Reoriented pt to environment, situation, date/time. 3PA to reposition in bed. Attempted oral care unsuccessfully as mouth is dry, flaky. Medicated with 2mg Ativan for CIWA 15 and dilaudid for FLACC score 8/10. Pt able to rest comfortably post-administrations with even, unlabored RR 19 and HR 82 NSR. Seizure pads, bed alarm, direct visualization.
[2018-03-26] MEDS: MAGNESIUM SULFATE 2 GM/50 ML PIGGYBACK IV (09:04)
[2018-03-26] MEDS: PANTOPRAZOLE 40 MG VIAL IV (09:05)
[2018-03-26] MEDS: ENOXAPARIN 30 MG/0.3 ML SYRINGE SUBCUT ×2 (09:05→20:31)
[2018-03-26] MEDS: FUROSEMIDE 100 MG/10 ML VIAL 60 MG IV ×2 (09:05→20:31)
--- NOTE | 2018-03-26 17:45 | PC.NURSE ---
Addendum entered by Corina Augustine R.N. 03/26/18 21:21: 2125 - Pt with increasing restlessness. Pulling at tubes and wires, clothing off. help me, help me. Moaning. Ciwa 12. Ativan given. 2019 - Pt awake, repositioned, skin assessment. Set up, oral care. sips of water. Pt c/o pain, everywhere. Only able to open eyes for a brief minute. Seizure pads in place. Bed alarm on. Original Note: 1630 - Pt awake, briefly opens eyes upon request. Repeating, get me up, come on hurry up. Set up in semi-high fowlers. Face wash. [place] teeth. Able to take sips of water. Able to responded to question of name and birthday. States that the year is 1980. Restlessness and agitation began increasing. Denies pain. Pulling at clothing, tubes and wires. Unsuccessful attempts to redirect and reorient. Tucking tubes out of reach. Removing excessive linen. 1700 - CIWA 11, Ativan given. 1714 - Pt calling out. it hurts it hurts Unable to localize or quantify pain. Dilaudid given. FLACC 6.
[2018-03-26] MEDS: CEFTRIAXONE 2 GM/50 ML FROZ.PIGGY IV (19:08)
[2018-03-27] VITALS (19 sets, daily range): BP systolic 157–199; BP diastolic 75–109; PULSE 75–108; RESP 12–34; TEMP 36.6–37.8; O2SAT 96–100
[2018-03-27] MEDS: HYDROMORPHONE 1 MG INJ IV ×6 (02:52→14:49)
[2018-03-27] MEDS: LORazepam 2 MG/ML SYRINGE IV ×9 (03:04→13:42)
[2018-03-27 05:39] LABS: BUN Creatinine Ratio 13.3 (6-22); Blood Urea Nitrogen 20 mg/dL (9-20); Calcium 8.9 mg/dL (8.4-10.2); Carbon Dioxide 29 mmol/L (22-32); Chloride 106 mmol/L (98-107); Estimated Glomerular Filt Rate 46.8 mL/min (>60); Glucose 137 mg/dL (80-110); HEMOLYSIS < 15 (0-50); Magnesium 1.7 mg/dL (1.6-2.3); Potassium 4.6 mmol/L (3.4-5.1); Sodium 144 mmol/L (137-145)
[2018-03-27] MEDS: KCL 40 MEQ IN NS 1,000 ML 125 MEQ IV ×2 (05:45→17:29)
--- NOTE | 2018-03-27 06:39 | PC.NURSE ---
Patient sleeping upon beginning of admissions assistant, allowed to sleep with minimal stimulation, SR, RR 14, BP 161/81, SpO2 100% on 2L. Patient woke at 0230, disoriented, briefly opened eyes, not tracking or following directions, sucked on swab but not able to suck water through a straw. Continuously yelling out Help me, help me or Mama, mama Does say yes when asked about pain and is displaying non-verbal pain. 1mg IV Dilaudid given per prn orders. CIWA scores 11-20, see Emar and ground intelligence officer and interventions. Total 8mg IV Ativan given with minimal effect.
--- NOTE | 2018-03-27 08:25 | PM.PN.1 ---
Subjective Date Patient Seen: 03/27/18 Time Patient Seen: 08:26 Interval history: Patient still CIWA over 20 times. Has been less restless not requiring restraints. Moving all extremities. Intermittently complaining of pain. Primarily his back and his leg. Otherwise has been very somnolent. Having no more apneic episodes. Rash is developing in his groin. Apparently he is drinking half a gal every 2 days. Vodka. No other changes. Exam Vital Signs (past 8 hours): - 03/27/18 00:30 03/27/18 00:35 03/27/18 02:11 Temperature 98.6 F Pulse Rate 77 75 Respiratory Rate 12 18 Blood Pressure 161/81 H Pulse Oximetry 100 100 100 03/27/18 03:45 03/27/18 03:54 03/27/18 06:16 Temperature Pulse Rate 79 93 H Respiratory Rate 31 H 34 H Blood Pressure 165/82 H Pulse Oximetry 100 100 98 03/27/18 07:21 Temperature 97.9 F Pulse Rate 79 Respiratory Rate 20 Blood Pressure 157/75 H Pulse Oximetry 99 Oxygen Delivery Method Nasal Cannula Oxygen Flow Rate 2 Narrative Exam Narrative: Sleeping male moving all extremities to pain but otherwise a not waking. Lungs are clear. Heart regular rate and rhythm. Abdomen is obese soft positive bowel sounds nontender extremities without cyanosis clubbing edema. He has erythematous rash in groin. Objective Labs Result Diagrams: 03/25/18 04:50 03/27/18 05:01 Labs: Laboratory Results - last 24 hr 03/27/18 05:01 Sodium 144 Potassium 4.6 Chloride 106 Carbon Dioxide 29 BUN 20 Creatinine 1.50 H Estimated GFR 46.8 L BUN/Creatinine Ratio 13.3 Glucose 137 H Calcium 8.9 Magnesium 1.7 Assessment & Plan Plan: Assessment/Plan Narrative: Alcohol withdrawal. A continue to believe that this is alcohol withdrawal that were dealing with. Clearly should be waking up either today or tomorrow. When long discussion about with nurses. He seems to be nonfocal exam I do not see any other abnormality but if he does not wake up clearly by tomorrow will need CT scan possibly further workup. His other vital signs are stable and I really think this is probably the cause. Will start B12 folate and thigh min. Mild renal failure probably acute on chronic. Slightly worsened will decrease his Lasix continue fluids re-evaluate in a.m. probably pre renal Groin rash. Suspect yeast will begin nystatin Constipation. Clearly diarrhea is resolved. Glycerin suppository Apneic episodes. Improved. Will be better once we do not have to give him so much medication. Dehydration. Stable. Will continue IV hydration but is at a good place right now. Hypokalemia. Appears to be resolved. Decreased magnesium. Improved. Will recheck tomorrow hold treatment for today Type 2 diabetes. Currently on sliding scale. Will follow. Recently admitted for hypoglycemia. Hypertension. We will assess persistently. No issue at this time. Restart medicines when awake. Diarrhea. Resolved. Morbid obesity. This point would be nice to be lose some weight but certainly affecting him long-term will discuss. Alcoholism. Hope will be able to get him can considered in treatment. Will readdress once he is awake suspect that will be a few days Infectious Disease. Mild elevation of procalcitonin. Will continue antibiotics and recheck in a few days. GI prophylaxis I do not think we need treatment at this time but will follow closely. DVT prophylaxis pharmacy recommends increasing Lovenox will do today. Disposition. Slow resolution. No other change. Will consider internal medicine consult tomorrow if not waking up. Quality VTE Deep Vein Thrombosis/Pulmonary Embolism Present on Admission: No
--- NOTE | 2018-03-27 08:55 | PC.NURSE ---
Addendum entered by Stalin Link R.N. 03/27/18 15:03: 1450- Pt continues to moan and frequently move self around in bed with facial grimacing. Rating 8/10 on FLACC score. Administered PRN dilaudid. Will monitor effect. Original Note: Addendum entered by Stalin Link R.N. 03/27/18 14:01: Pt began waking up approx 0915. Mostly moaning but able to answer simple questions with yes/no responses. Tells me that he lives in [place] and identifies his father as Piotr. Family in to visit approx 1030. Pt is somewhat conversive but frequently stating Help me! and becoming progressively more agitated despite family presence, reorientation, redirection, and distraction. PRN ativan and dilaudid given for FLACC scores ranging 8-10 and CIWA scores low 20s. Despite non-pharm interventions and medication, pt continues to rate high on CIWA scale evidenced by disorientation, moaning, frequent calling out for mommy, pt stating help me, help me, thrashing in bed and picking at lines/tubes/linens/gown. Not cooperative with care and moving arm around during BP assessment. Unable to obtain manual BP d/t pt disorientation, movement, and moaning. At best, BP 199/98. Called to Dr. Schaefer and reported difficulty with BP assessment, current BP readings, total ativan and dilaudid given and pt response to medication. Orders received for PRN IV hydralazine 20 mg Q6H for SBP greater than 160 and a one time dose of zyprexa. Positioned pt bolt upright and administered zyprexa in applesauce. Pt tolerated without s/s of aspiration. Hydralazine also given at this time. Will monitor effect. Seizure pads, bed alarm, and direct visualization. Original Note: 0730- Rec'd pt in bed resting comfortably with eyes closed. Even/unlabored RR 17. O2 NC by mouth at 2L for SPO2 100%. Per report, CIWA up to 20 overnight. Allowing rest. Seizure pads, bed alarm, direct visualization.
[2018-03-27] MEDS: MULTIVITAMIN IV (09:18)
[2018-03-27] MEDS: THIAMINE IV (09:18)
[2018-03-27] MEDS: MAGNESIUM SULFATE IV (09:18)
[2018-03-27] MEDS: [UNRECOGNIZED DRUG - OTHER] IV (09:18)
[2018-03-27] MEDS: FOLIC ACID IV (09:18)
[2018-03-27] MEDS: ENOXAPARIN 30 MG/0.3 ML SYRINGE SUBCUT ×2 (09:21→20:45)
[2018-03-27] MEDS: PANTOPRAZOLE 40 MG VIAL IV (09:21)
[2018-03-27] MEDS: FUROSEMIDE 20 MG/2 ML VIAL IV ×2 (09:22→20:46)
[2018-03-27] MEDS: NYSTATIN POWDER 30 GM 1 APPLIC TOP (09:55)
[2018-03-27] MEDS: GLYCERIN SUPP ADULT 1 SUPP 1 EACH PR (09:55)
[2018-03-27] MEDS: INSULIN ASPART 100 UNIT/ML INSULN PEN SUBCUT (12:00)
[2018-03-27] MEDS: HYDRALAZINE 20 MG/ML VIAL IV ×2 (14:11→20:54)
[2018-03-27] MEDS: OLANZapine 2.5 MG TABLET 5 MG PO (14:11)
--- NOTE | 2018-03-27 14:31 | CM.DPC ---
DCP/continued: Reviewed chart. INVESTIGATOR VICE attempted to meet with patient and family today. Unfortunately, patient remains too sleepy/confused to assess. RN/Stalin reports that patient's daughter/Kamille ph# [phone] and sister/Alejandra ph# [phone] were both at [facility] today. Per RN, family reports that patient resides in [place] with friend's. Patient primarily w/c bound and drinks alcohol heavily on daily basis. RN continues to report that family indicate that daughter/Halleyee is DPOA ph# [phone]. She is supposed to be at [facility] today and bring DPOA paperwork. P: Pending. Patient continues to be unable to assess due to high CIWA scores and drowsiness. CM team to continue to follow closely. Anticipate that family will need to be included in d/c planning. DPOA has not yet been confirmed but there are several family members listed and actively visiting. NOELLE Funes Discharge Planning/Care Management Advanced directive, confirm from FAMILY Start: 03/22/18 19:21 Freq: Q24H Status: Active Protocol: Document 03/22/18 20:05 AKP (Rec: 03/22/18 20:05 AKP [id number]) Advance Directive, confirm on record Time 20:05 Person contacted sister: Rosa Copy received No Document 03/25/18 08:00 AMM (Rec: 03/25/18 08:00 AMM [id number]) Advance Directive, confirm on record Time 20:05 Person contacted sister: Rosa Copy received No Copy received No Advanced directive available on record No Document 03/27/18 03:45 SMS (Rec: 03/27/18 04:12 SMS [id number]) Advance Directive, confirm on record Time 20:05 Person contacted sister: Rosa Copy received No Copy received No Advanced directive available on record No CM Discharge Assessment Start: 03/26/18 15:51 Freq: Status: Active Protocol: Document 03/26/18 15:51 KJS (Rec: 03/26/18 16:08 KJS [id number]) Discharge Planning Assessment Assigned Assembly And Packing Supervisor NOELLE Funes Contact Information Rodney Martinezensen (Father listed) ph# [phone] Advance Directives? No Advance Directives on File No History Provided By Patient Medical Record Prior Living Arrangements Apartment/Condo Household Members family friend(s) other Independent with ADL's Not currently 03-26-18 unsure at baseline. Is patient alert and oriented? No: Not currently unsure at baseline. Caregiver for Another No Comment Unclear at thist time. Discharge Plan Home Transportation Arrangement Friend to provide. Referrals Initiated None needed Whiteboard Updated in Patient Room with Yes name and ext. # of Assembly And Packing Supervisor Comment Reviwed chart. [facility] with chief complaint of confusion. Patient arrived via paramedics. PCP listed is Dr. Quintana. Primary payor is 1) Medicare 2)Medicaid. INVESTIGATOR VICE attempted to meet with patient today. CIWA score between 18-20. Patient currently requiring ativan for withdrawals. Previously patient in soft restraints. Spoke with RN whom reports that patient has been sleeping most of the day. Patient has sister that has been by. Asked RN to call INVESTIGATOR VICE desk if sister returns and obtain phone number. At this time it is unclear to determine what patient will need at discharge. Unclear of patient's mobility at baseline. CM/INVESTIGATOR VICE to follow closley and access when patient is medically appropriate. Review Status In Process Please Provide Date Initial DC 03/26/18 Assessment Was Performed Next Review Type Continued Stay Review Document 03/27/18 14:31 KJS (Rec: 03/27/18 14:31 KJS [id number]) Discharge Planning Assessment Assigned Assembly And Packing Supervisor NOELLE Funes Contact Information Rodney Tubbs (Father listed) # [phone] Advance Directives? No Advance Directives on File No History Provided By Patient Medical Record Prior Living Arrangements Apartment/Condo Household Members family friend(s) other Independent with ADL's Not currently 03-26-18 unsure at baseline. Is patient alert and oriented? No: Not currently unsure at baseline. Caregiver for Another No Comment Unclear at thist time. Discharge Plan Home Transportation Arrangement Friend to provide. Referrals Initiated None needed Whiteboard Updated in Patient Room with Yes name and ext. # of Assembly And Packing Supervisor Comment Reviwed chart. Patient admitted [facility] with chief complaint of confusion. Patient arrived via paramedics. PCP listed is Dr. Quintana. Primary payor is 1) Medicare 2)Medicaid. INVESTIGATOR VICE attempted to meet with patient today. CIWA score between 18-20. Patient currently requiring ativan for withdrawals. Previously patient in soft restraints. Spoke with RN whom reports that patient has been sleeping most of the day. Patient has sister that has been by. Asked RN to call INVESTIGATOR VICE desk if sister returns and obtain phone number. At this time it is unclear to determine what patient will need at discharge. Unclear of patient's mobility at baseline. CM/INVESTIGATOR VICE to follow closley and access when patient is medically appropriate. Review Status In Process Please Provide Date Initial DC 03/26/18 Assessment Was Performed Next Review Type Continued Stay Review
[2018-03-27] MEDS: CEFTRIAXONE 2 GM/50 ML FROZ.PIGGY IV (17:28)
--- NOTE | 2018-03-27 19:58 | PC.NURSE ---
Addendum entered by Corina Augustine R.N. 03/27/18 22:04: 2200 - Pt intermittently restless. Continues to deny pain. Does not answer other orientation question or open eyes. 2100, hydralizine given for elevated BP, Recheck 176/78, manual cuff, however pt is resistive, Pulling and flexing against cuff. HR elevated in the low 100's, and low grade temp 99.4. Original Note: Addendum entered by Corina Augustine R.N. 03/27/18 20:58: 2100 - Pt restless and mumbling. Occasional clear speech. Asked about pain, Pt state, No, I am all right. Attempt to ask about moaning, and reorient. Pt returns to mumbling and fidgeting. BP via manual cuff 170/80 HR 99, PRN med given. Monitor. Original Note: 1929 - Pt continues to be restless in bed, mumbles and moans, but only increased agitation during care. Occasionally pulling at clothing, tubes and wires. Keeps eyes closed. Unable to answer any orientation questions today. States no to questin of pain. Request a drink of water, however unable to follow simple cues making him unsafe for po intake at this time, oral care provided. Smear of stool, brief changed. Seizure pads in place. Bed alarm on.
[2018-03-28] VITALS (13 sets, daily range): BP systolic 122–170; BP diastolic 62–87; PULSE 72–106; RESP 17–28; TEMP 36.9–38.2; O2SAT 94–99
[2018-03-28] MEDS: LORazepam 2 MG/ML SYRINGE IV (00:55)
[2018-03-28] MEDS: HYDROMORPHONE 1 MG INJ IV ×3 (00:55→19:08)
[2018-03-28] MEDS: KCL 40 MEQ IN NS 1,000 ML 125 MEQ IV ×3 (01:49→18:28)
[2018-03-28] MEDS: HYDRALAZINE 20 MG/ML VIAL IV (03:45)
[2018-03-28 05:55] LABS: BUN Creatinine Ratio 13.3 (6-22); Blood Urea Nitrogen 20 mg/dL (9-20); Calcium 9.3 mg/dL (8.4-10.2); Carbon Dioxide 27 mmol/L (22-32); Chloride 106 mmol/L (98-107); Estimated Glomerular Filt Rate 46.8 mL/min (>60); Glucose 153 mg/dL (80-110); HEMOLYSIS < 15 (0-50); Magnesium 1.7 mg/dL (1.6-2.3); Potassium 4.3 mmol/L (3.4-5.1); Sodium 146 mmol/L (137-145)
[2018-03-28] MEDS: INSULIN ASPART 100 UNIT/ML INSULN PEN SUBCUT ×2 (06:40→11:53)
--- NOTE | 2018-03-28 06:43 | PC.NURSE ---
Patient was awake, restless, and fidgeting most of the night, not attempting to get out of bed or pulling at lines and tubes as often, CIWA = 13 & 12, remains disoriented and mumbles, 2mg IV Ativan given only once. Medicated with 1mg IV Dilaudid x2 for FLACC 6-8, says his shoulder hurts SR/ST, Tmax 100.8, fan used, fever reduced to 99.4, 20mg IV Hydralazine given for HTN, see Emar, no supplemental O2 needed, SpO2 remains >94% on RA. Smear light brown stool, 1200ml UOP in [place].
[2018-03-28] MEDS: ENOXAPARIN 30 MG/0.3 ML SYRINGE SUBCUT ×2 (08:10→19:03)
[2018-03-28] MEDS: GLIMEPIRIDE 2 MG TABLET 1 MG PO (08:10)
[2018-03-28] MEDS: GABAPENTIN 100 MG CAPSULE PO ×3 (08:10→19:04)
[2018-03-28] MEDS: CITALOPRAM 20 MG TABLET 40 MG PO (08:10)
[2018-03-28] MEDS: PANTOPRAZOLE 40 MG VIAL IV (08:11)
[2018-03-28] MEDS: FUROSEMIDE 20 MG/2 ML VIAL IV (08:11)
[2018-03-28] MEDS: ALLOPURINOL 100 MG TABLET 200 MG PO (08:11)
[2018-03-28] MEDS: HYDROCODONE/ACET 10/325 TABLET 1 TAB PO (08:13)
--- NOTE | 2018-03-28 08:54 | PM.PN.1 ---
Subjective Date Patient Seen: 03/28/18 Time Patient Seen: 08:55 Interval history: Patient actually more alert today. Did not get Ativan since 2 in the morning. Still sleepy. Not oriented. Complaining of pain but not really specific and where that is. Otherwise much less active. No other changes. Took p.o.. Exam Vital Signs (past 8 hours): - 03/28/18 02:34 03/28/18 03:45 03/28/18 04:00 Temperature 99.4 F Pulse Rate 100 H 103 H 95 H Respiratory Rate 22 20 Blood Pressure 168/80 H 168/80 H Pulse Oximetry 97 97 03/28/18 06:19 03/28/18 07:00 03/28/18 07:44 Temperature 99.3 F 98.6 F Pulse Rate 93 H 91 H 106 H Respiratory Rate 23 17 23 Blood Pressure 170/72 H 170/72 H Pulse Oximetry 96 97 94 Oxygen Delivery Method Room Air Oxygen Flow Rate 0 Narrative Exam Narrative: Fatigue male able to open his eyes but not for very long responding to questions but not always appropriate. Mucous membranes moist. Neck supple without adenopathy. Lungs clear. Heart regular rate and rhythm. Abdomen is obese soft positive bowel sounds nontender ext extremities with edema and does has some tenderness on the right leg mild tenderness in the calf no swelling no erythema. Really very difficult to tell which leg was specifically painful there is no abnormality of either legs neurologic exam is nonfocal. Objective Labs Result Diagrams: 03/25/18 04:50 03/28/18 04:46 Labs: Laboratory Results - last 24 hr 03/28/18 04:46 Sodium 146 H Potassium 4.3 Chloride 106 Carbon Dioxide 27 BUN 20 Creatinine 1.50 H Estimated GFR 46.8 L BUN/Creatinine Ratio 13.3 Glucose 153 H Calcium 9.3 Magnesium 1.7 Assessment & Plan Plan: Assessment/Plan Narrative: Alcohol withdrawal. Beginning to turn the corner. Still not that I would consider alert but not requiring as much medication. At this point will continue slow evaluation and hope tomorrow we can begin discussion on treatment options and placement Fluid and electrolytes. Overall seems to be stable. Will check magnesium. Replacement started yesterday. Hypertension. Still elevated. Will discontinue hydralazine start metoprolol b.i.d. see how he does. Re-evaluate in a.m.. Pneumonia. Community-acquired possibility versus aspiration very difficult to tell but has been stable on Rocephin will discontinue treatment and re-evaluate a.m. Mild renal failure probably acute on chronic. Essentially stable. Probably near baseline but will see how things go. Recheck a.m.. Groin rash. Suspect yeast will begin nystatin Constipation. Clearly diarrhea is resolved. Glycerin suppository Apneic episodes. Improved. Will be better once we do not have to give him so much medication. Dehydration. Stable. Will continue IV hydration but is at a good place right now. Hypokalemia. Appears to be resolved. Decreased magnesium. Improved. Will recheck tomorrow hold treatment for today Type 2 diabetes. Currently on sliding scale. Will follow. Recently admitted for hypoglycemia. Diarrhea. Resolved. Morbid obesity. This point would be nice to be lose some weight but certainly affecting him long-term will discuss. Alcoholism. Was hoping today would begin discussion of options. Probably not clear enough to have those discussions will have social service contact family. GI prophylaxis I do not think we need treatment at this time but will follow closely. DVT prophylaxis pharmacy recommends increasing Lovenox will do today. Disposition. Decision on where he is going to go from here is next. Will have to see how that goes. No other changes. Do not anticipate discharge for 2 or 3 more days. Quality VTE Deep Vein Thrombosis/Pulmonary Embolism Present on Admission: No
[2018-03-28] MEDS: METOPROLOL IR 25 MG TABLET PO ×2 (09:25→19:06)
[2018-03-28] MEDS: FUROSEMIDE 40 MG TABLET PO ×2 (09:25→19:03)
[2018-03-28] MEDS: GLYCERIN SUPP ADULT 1 SUPP 1 EACH PR (10:39)
[2018-03-28] MEDS: NYSTATIN POWDER 30 GM 1 APPLIC TOP (10:41)
--- NOTE | 2018-03-28 10:54 | PC.NURSE ---
Rec'd pt in bed awake, restless, without eye opening. Answering simple questions and somewhat participative in assessment. Requesting water, food, and reporting pain. Purposeful movement of upper extremities. CIWA 5. Sat pt upright and washed face, provided oral care. Pt was able to drink some thin water by cup without s/s of aspiration. PO meds given as ordered. Pt tolerated meds whole with water and 1 cup of applesauce. Opened blinds in room to let natural daylight in and provided reorientation. Continues with HTN. Reported to MD on rounds and orders received for PO metoprolol. Prior to administration, manual cuff pressure assessed at 158/62. Provided hygiene care and linen change. Dangled pt at bedside. Required 3 person assist as he was resistive and pushing against staff stating I'm falling! I'm falling! Help me! I can't! Instructed pt to open eyes and attempting reorientation and redirection unsuccessfully. At this time, linen change is performed and pt was able to dangle for approx 15 seconds without resisting but required 2 person assist to maintain upright position. Assisted back to a comfortable position but pt is moderately fidgety and restless at this time. Attempted reorientation and redirection but pt continues to moan. Offered emotional support. Placed call light in reach, instructed on use, and increased music volume in attempt to distract. Bed alarm, seizure pads, direct visualization. Will monitor.
--- NOTE | 2018-03-28 13:44 | CM.DPC ---
DCP/continued: Reviewed chart. No family at bedside at time of CUSTOMER DATA TECHNICIAN visit today. Spoke with RN she reports family has brought in Living Will/Health Care Directive (copy scanned in EMR). Official DPOA is [place] phone# [phone]. Patient currently Full Code status. Requested RN direct MD to Health Care Directive if questions arise. Per RN, patient last given Ativan last evening. Patient remains confused and cognitively impaired. At this time unclear of prognosis both short and long-term? CM team unable to coordinate safe d/c plan until patient medically more stable. Due to coverage today this CUSTOMER DATA TECHNICIAN unable to call DPOA. Will request that CUSTOMER DATA TECHNICIAN follow up and discuss with MD and consider care conference for d/c planning and or goals of care. P: Pending. NOELLE Funes
[2018-03-28] MEDS: MELATONIN 3 MG TABLET 6 MG PO (19:06)
[2018-03-29] VITALS (9 sets, daily range): BP systolic 137–192; BP diastolic 67–98; PULSE 72–102; RESP 13–25; TEMP 36.1–37.1; O2SAT 92–100
[2018-03-29] MEDS: HYDROMORPHONE 1 MG INJ IV ×3 (00:08→04:08)
[2018-03-29] MEDS: LORazepam 2 MG/ML SYRINGE IV ×2 (01:13→01:42)
--- NOTE | 2018-03-29 01:52 | PC.NURSE ---
Addendum entered by Nereida Almanza R.N. 03/29/18 06:29: Patient continued to be restless and agitated until 0530, moaning and thrashing, IV Ativan not effective, gave IV Dilaudid for FLACC 8, patient says back when asked where his pain is. Does better with HOB elevated. Original Note: 0150-Patient has been in constant motion, throwing leg over side of bed, moaning and grunting, saying hurry, hurry, get me up Requesting a drink of water but unable to follow directions with or without straw, sucks on a swab. Briefly opens eyes and will look at staff. CIWA 13, 2mg Ativan given, then 30 min later, CIWA 17, asking to take my shoes off he feet are bare. IV fluid infusion moved to Rt shoulder site r/t patient's constant activity and unable to follow directions. IV Dilaudid also given for FLACC 7-8. Brief is dry, [place] cath patent, SR 70s-90s, BP 157/75, T 98.0, Sp02 >92% RA.
[2018-03-29] MEDS: KCL 40 MEQ IN NS 1,000 ML 125 MEQ IV (02:30)
[2018-03-29 05:18] LABS: Add Manual Diff / Slide Review NO; Basophils Absolute Auto 100 /uL (0-100); Basophils Percent Auto 0.7 % (0-2); Eosinophils Absolute Auto 300 /uL (0-450); Eosinophils Percent Auto 3.2 % (2-4); Hematocrit 29.4 % (41-53); Hemoglobin 9.9 g/dL (13.5-17.5); Lymphocytes Absolute Auto 1300 /uL (1100-4500); Lymphocytes Percent Auto 14.3 % (25-40); Mean Corpuscular HGB Conc 33.5 % (30-36); Mean Corpuscular Hemoglobin 35.5 PG (26-34); Mean Corpuscular Volume 105.9 fL (80-100); Monocytes Absolute Auto 1300 /uL (0-900); Monocytes Percent Auto 14.1 % (3-14); Neutrophils Absolute Auto 6400 /uL (1500-7000); Neutrophils Percent Auto 67.7 % (50-75); Platelet Count 316 X10^3/uL (150-400); Red Blood Cell Count 2.78 X10^6/uL (4.5-5.9); Red Cell Distribution Width 13.4 % (11.6-14.8); White Blood Cell Count 9.4 X10^3/uL (4.5-11.0)
[2018-03-29 05:23] LABS: BUN Creatinine Ratio 14.1 (6-22); Blood Urea Nitrogen 24 mg/dL (9-20); Calcium 9.3 mg/dL (8.4-10.2); Carbon Dioxide 31 mmol/L (22-32); Chloride 110 mmol/L (98-107); Estimated Glomerular Filt Rate 40.5 mL/min (>60); Glucose 135 mg/dL (80-110); HEMOLYSIS < 15 (0-50); Potassium 4.7 mmol/L (3.4-5.1); Sodium 147 mmol/L (137-145)
[2018-03-29 05:45] LABS: Magnesium 1.7 mg/dL (1.6-2.3)
[2018-03-29] MEDS: SODIUM CHLORIDE 0.45% 1,000 ML 75 ML IV ×2 (08:47→21:51)
[2018-03-29] MEDS: ENOXAPARIN 30 MG/0.3 ML SYRINGE SUBCUT ×2 (09:00→19:01)
[2018-03-29] MEDS: PANTOPRAZOLE 40 MG VIAL IV (10:00)
[2018-03-29] MEDS: CITALOPRAM 20 MG TABLET 40 MG PO (10:00)
[2018-03-29] MEDS: GLIMEPIRIDE 2 MG TABLET 1 MG PO (10:00)
[2018-03-29] MEDS: METOPROLOL IR 25 MG TABLET PO ×2 (10:00→19:01)
[2018-03-29] MEDS: ALLOPURINOL 100 MG TABLET 200 MG PO (10:00)
[2018-03-29] MEDS: GABAPENTIN 100 MG CAPSULE PO ×3 (10:00→19:00)
[2018-03-29] MEDS: FUROSEMIDE 40 MG TABLET PO ×2 (10:00→19:00)
[2018-03-29] MEDS: HYDROCODONE/ACET 10/325 TABLET 1 TAB PO ×2 (10:30→17:07)
[2018-03-29] MEDS: INSULIN ASPART 100 UNIT/ML INSULN PEN SUBCUT ×2 (13:45→17:10)
--- NOTE | 2018-03-29 14:13 | PM.PN.1 ---
Subjective Date Patient Seen: 03/29/18 Time Patient Seen: 13:13 Interval history: Met with patient and reviewed the chart. Met with his sister in law, Ayanna Tubbs as well as his sister. Sister was concerned about other potential etiologies for his decreased cognition and mental status changes. [id number] gave history that he has had 4 years of sobriety and then began drinking has very heavily for the last 2 years. His sister notes a decline in his function over the last year where he is not want to go places and over this period of time has essentially become wheelchair bound. The patient is able to open his eyes for me he asked to stand up. He does not recognize his sister for his [id number]. He becomes agitated when I attempt to examine him He has received 2 hydrocodone in the last 24 hr. He has received 3 mg of IV lorazepam in the last 24 hr. This is markedly decreased from his previous requirements. Antibiotics were stopped yesterday for presumed pneumonia with no clear worsening Twelve point review of systems is negative other than above The patient is having normal urination. Patient is having frequent normal stooling Intermittently patient complains of back pain Exam Vital Signs (past 8 hours): - 03/29/18 07:00 03/29/18 07:30 03/29/18 10:53 Temperature 97.2 F L Pulse Rate 72 102 H Respiratory Rate 21 17 Blood Pressure 148/67 H 177/84 H Pulse Oximetry 98 100 96 03/29/18 14:00 Temperature 98.6 F Pulse Rate 82 Respiratory Rate Blood Pressure Pulse Oximetry Oxygen Delivery Method Room Air Oxygen Flow Rate 0 Narrative Exam Narrative: Able to open his eyes and look at me, able to respond to commands minimally. Not alert to person place or time In no apparent distress HEENT is remarkable for Juliane on the tongue Neck: Obese without clear masses or tracheal shift Chest: Decreased breath sounds bilateral bases but no wheezes, rhonchi or crackles Cor: Regular rate and rhythm without murmur Abdomen: Positive bowel sounds, soft, nontender, nondistended, morbidly obese Extremities: No edema, pulses intact, withdrawals from touch. No evidence of erythema or pain over the gastroc Mitchell sign is negative Neurologic exam is nonfocal Objective Labs Result Diagrams: 03/29/18 05:02 03/29/18 05:02 Labs: Laboratory Results - last 24 hr 0103/29/18 03/29/18 05:02 05:02 05:02 WBC 9.4 RBC 2.78 L Hgb 9.9 L Hct 29.4 L MCV 105.9 H MCH 35.5 H MCHC 33.5 RDW 13.4 Plt Count 316 Neut % (Auto) 67.7 Lymph % (Auto) 14.3 L [place] % (Auto) 14.1 H Eos % (Auto) 3.2 Baso % (Auto) 0.7 Neut # (Auto) 6400 Lymph # (Auto) 1300 [place] # (Auto) 1300 H Eos # (Auto) 300 Baso # (Auto) 100 Sodium 147 H Potassium 4.7 Chloride 110 H Carbon Dioxide 31 BUN 24 H Creatinine 1.70 H Estimated GFR 40.5 L BUN/Creatinine Ratio 14.1 Glucose 135 H Calcium 9.3 Magnesium 1.7 Assessment & Plan Plan: Assessment/Plan Narrative: A 67-year-old male admitted for decreased mental status Assessment 1. Encephalopathy thought to be secondary to acute alcohol withdrawal and acute narcotic withdrawal requiring high doses of lorazepam to treat. Appears to be improving and is requiring last lorazepam and patient is slowly becoming more alert Plan: He will need inpatient treatment. It is unclear if he will agree to this but will at least age skilled care facility. We will have social media sr strategy manager get involved again to start working on this although I anticipate he will need several days more to a week of inpatient treatment in hospital Consult PT and OT to begin working with him. Assessment 2. Type 2 diabetes overall stable he is not eating much Plan: Continue with current sliding scale insulin and blood sugar monitoring. Assessment 3. Thrush Plan: Will start nystatin Assessment 4. Pneumonia possibly community-acquired versus aspiration pneumonia antibiotic stopped on 03/28/2018. No evidence of infection at this time. Plan: Will continue to monitor. Assessment 5. Intertrigo Plan: Continue with nystatin cream to the groin. Assessment 6. Hypertension. It is hard to tell if this is related to acute and trough. Hydralazine was discontinued 03/28/2018 and metoprolol was started. Still with elevated blood pressures during the night Plan: Continue the same metoprolol continue to monitor as still with elevated blood pressures will increase dose tomorrow Assessment 7. Hypernatremia suspect related to IV fluids. We will change from saline to half normal saline at 125 cc an hour to 75 cc an hour. We will reassess in a.m. Assessment 8. Hypokalemia Plan: Continue with potassium supplementation. He has been stable. Assessment 9. Hypomagnesemia he has been replaced. Will continue to follow periodically Assessment 10. Anemia of chronic disease secondary to chronic kidney disease overall stable. He receives Aranesp from Hematology. Last received in early March. No evidence of acute GI blood loss. Will continue to follow Assessment 11. Stage 4 kidney disease overall stable and actually improved during his hospitalization Plan: Continue to follow as we decrease his IV fluids. Assessment number 12 DVT prophylaxis Plan: Continue Lovenox Assessment 13. Morbid obesity Assessment 14. Chronic narcotic use for chronic pain Plan: Continue to wean Time Spent With Patient Time with patient: Greater than 35 minutes Quality VTE Deep Vein Thrombosis/Pulmonary Embolism Present on Admission: No
--- NOTE | 2018-03-29 14:30 | PT.IIE ---
Current Diagnoses Type 2 diabetes mellitus without complications (03/22/18) Morbid (severe) obesity due to excess calories (03/22/18) Volume depletion, unspecified (03/22/18) Hypokalemia (03/22/18) Alcohol dependence, uncomplicated (03/22/18) Other chronic pain (03/22/18) Essential (primary) hypertension (03/22/18) Diarrhea, unspecified (03/22/18) Surgical History (Last Reviewed 03/28/18 @ 10:02 by Negrita Cooper) History of colectomy (Resolved) Medical History (Last Reviewed 03/22/18 @ 19:23 by Yonny Reynoso DO) Anemia associated with chronic renal failure (Chronic) Symptomatic anemia (Chronic) GI bleed (Resolved) Diabetes type 2, controlled (Chronic) Alcoholism (Acute) Obesity (Chronic) Chronic kidney disease, stage 4 (severe) (Chronic) Depression (Chronic) Hypertension (Chronic) Hyperparathyroidism (Chronic) Chronic pain (Chronic) Duodenal ulcer (Acute) Left leg pain (Chronic) 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 from previous PT visits: pt uses a 4WW for mobility Social History Household Members other Living Arrangements Apartment/Condo Number of Floors (Floors) Two Floors Number of Stairs To Enter/Railing? info regarding home set up obtained from previous PT visits: pt lives in a 2 level house but stays mainly on 1st level. the other level is the basement where laundry area is and his roommate helps him with that. pt has a ramp to enter the house Home Equipment Four Wheel Walker Additional Social History Comment pt lives with a roommate but can only assist him with his laundry. M2 PT-IP Current Condition Start: 03/29/18 16:26 Freq: NEEDED Status: Active Protocol: Document 03/29/18 14:30 AB (Rec: 03/29/18 16:46 AB [id number]) Physical Therapy Current Condition Current Condition Evaluation Date 03/29/18 Treatment Diagnosis dehydration; alcohol withdrawal; PNA; weakness Onset Date 03/22/18 Precautions Other Precautions falls M3 PT-IP Subjective Start: 03/29/18 16:26 Freq: NEEDED Status: Active Protocol: Document 03/29/18 14:30 AB (Rec: 03/29/18 16:46 AB [id number]) Subjective Physical Therapy Visit Type Type Initial Evaluation Visit Start Time 14:30 Visit Stop Time 14:56 Total Visit Minutes 26 Number of RECORD LABEL INTERNSHIP Visits 0 M4 PT-IP Mobility and Gait Start: 03/29/18 16:26 Freq: NEEDED Status: Active Protocol: Document 03/29/18 14:30 AB (Rec: 03/29/18 16:46 AB [id number]) PT-Bed Mobility Assessment Supine to Sit Supine to Sit Total Assistance 2 Person Assistance Head of Bed Elevated Sit to Supine Sit to Supine Total Assistance 2 Person Assistance Scooting Scooting to Edge of Bed Dependent Scooting Up and Down in Bed Dependent PT-Transfer Assessment Comments Mobility Comments pt is lethargic and has difficulty opening his eye but able to respond to questions despite this although answers may not be appropriate to the questions asked. pt able to follow one step commands inconsistently. pt required total A x 2 for supine to sit with HOB elevated. pt required total A x 2 to scoot to EOB and for positioning. pt required max A x 2 to maintain sitting balance on EOB. pt tends to posterior lean and requires max cues to lean forward. needs assist to block BLE to prevent from sliding forward. Pt tolerated ~ 8 min sitting on EOB but becomes agitated towards the end requiring pt to be assisted to lie back down. pt required total Ax 3 for sit to supine and for positioning. PT-Balance Assessment Sitting Balance and Reactions Static Sitting Balance Ability Poor Dynamic Sitting Balance Ability Poor Standing Balance and Reactions Device Used unable to stand at this time M5 PT-IP Objective Assessments Start: 03/29/18 16:26 Freq: NEEDED Status: Active Protocol: Document 03/29/18 14:30 AB (Rec: 03/29/18 16:46 AB [id number]) Orientation Orientation/Cognition Level of Alertness Lethargic Orientation Name Safety Awareness Decreased Safety Awareness Memory Description Short Term Impaired Retirement Impaired Comments pt is lethargic and confuse Gross Range of Motion Lower Extremity ROM Assessment Within Functional Limits Strength Lower Extremity Strength Assessment Bilaterally Impaired Hip 3+/5 Knee 3+/5 M7 PT-IP Assessment and Plan Start: 03/29/18 16:26 Freq: NEEDED Status: Active Protocol: Document 03/29/18 14:30 AB (Rec: 03/29/18 16:46 AB [id number]) PT Summary Assessment and Plan Potential Rehabilitation Potential Fair Status of Condition at Evaluation Evolving Summary Impairments Pain Strength Balance Coordination Cognition Bed Mobility Transfers Gait Activity Tolerance Assessment Summary pt requiring total A with mobility at this time and is not consistent with following directions. pt unable to tolerate much activity today with agitation noted and unable to do further activities. Requires further assessment to determine if pt 's appropriateness for PT intervention at this time. nurse stated that pt is doing better than before behaviourally. Will see pt again for PT tomorrow to determine consistency with participation and if pt can benefit from PT intervention at this time or needs to be more medically stable and follow directions to benefit from PT. Will follow up tomorrow. Goals Bed Mobility Goal Moderate Assistance Transfer Goal Moderate Assistance Front Wheeled Walker Gait Goal Moderate Assistance Front Wheel Walker Gait Distance 50 Days to Meet Goals 10 Frequency of Treatment Frequency Of Treatment Once a Day Treatment Plan Physical Therapy Treatment Plan Bed Mobility Training Transfer Training Gait Training Therapeutic Exercise Balance Retraining Discharge Planning Hot or Cold Pack Neuromuscular Re-ed Coordination Retraining Manual Therapy Other Recommendations and Next Treatment Assess consistency with Focus participation: bed mobility, transfers if appropriate Recommendations To Nursing Amount of Assist Needed PT/OT Assist Only Discharge Recommendations PT Discharge Recommendations SNF Rehab
[2018-03-29] MEDS: NYSTATIN SUSP 500,000 UNIT/5 ML UDC 500000 UNIT PO ×3 (15:28→20:36)
--- NOTE | 2018-03-29 15:31 | OT.IP.TRT ---
Current Diagnoses Type 2 diabetes mellitus without complications (03/22/18) Morbid (severe) obesity due to excess calories (03/22/18) Volume depletion, unspecified (03/22/18) Hypokalemia (03/22/18) Alcohol dependence, uncomplicated (03/22/18) Other chronic pain (03/22/18) Essential (primary) hypertension (03/22/18) Diarrhea, unspecified (03/22/18) Occupational Therapy Treatment Note M3 OT- IP Subjective and Pain Start: 03/29/18 15:31 Freq: Status: Active Protocol: Document 03/29/18 15:31 POLLY (Rec: 03/29/18 15:31 POLLY [id number]) OT- Subjective Occupational Therapy Visit Type Type Administrative Note Visit Start Time 15:30 Notes OT referral received. Will initiate evaluation in AM.
[2018-03-29] MEDS: MELATONIN 3 MG TABLET 6 MG PO (19:00)
[2018-03-30] VITALS (14 sets, daily range): BP systolic 96–196; BP diastolic 42–107; PULSE 70–93; RESP 17–20; TEMP 36.4–37.7; O2SAT 93–98
[2018-03-30] MEDS: HYDROCODONE/ACET 10/325 TABLET 1 TAB PO (04:25)
[2018-03-30] MEDS: HYDRALAZINE 20 MG/ML VIAL IV (04:29)
[2018-03-30 05:59] LABS: Hematocrit 32.1 % (41-53); Hemoglobin 10.6 g/dL (13.5-17.5); Mean Corpuscular HGB Conc 33.1 % (30-36); Mean Corpuscular Hemoglobin 34.8 PG (26-34); Mean Corpuscular Volume 105.2 fL (80-100); Platelet Count 352 X10^3/uL (150-400); Red Blood Cell Count 3.05 X10^6/uL (4.5-5.9); Red Cell Distribution Width 13.1 % (11.6-14.8); White Blood Cell Count 11.7 X10^3/uL (4.5-11.0)
[2018-03-30 06:02] LABS: Add Manual Diff / Slide Review YES
[2018-03-30 06:05] LABS: Alanine Aminotransferase 31 IU/L (21-72); Albumin 3.7 g/dL (3.5-5.0); Albumin Globulin Ratio 1.2 (1.0-2.8); Alkaline Phosphatase 71 U/L (38-126); Aspartate Aminotransferase 40 IU/L (17-59); Bilirubin Total 0.5 mg/dL (0.2-1.3); Blood Urea Nitrogen 24 mg/dL (9-20); Calcium 9.3 mg/dL (8.4-10.2); Carbon Dioxide 28 mmol/L (22-32); Chloride 105 mmol/L (98-107); Estimated Glomerular Filt Rate 46.8 mL/min (>60); Glucose 137 mg/dL (80-110); HEMOLYSIS < 15 (0-50); Potassium 3.8 mmol/L (3.4-5.1); Sodium 143 mmol/L (137-145); Total Protein 6.7 g/dL (6.3-8.2)
[2018-03-30 06:52] LABS: Neutrophils Absolute Manual 7605 /uL (3000-5900); RBC Morphology Normal Morphology; Total Cells Counted 100
[2018-03-30] MEDS: INSULIN ASPART 100 UNIT/ML INSULN PEN SUBCUT ×3 (08:37→17:14)
[2018-03-30] MEDS: ENOXAPARIN 30 MG/0.3 ML SYRINGE SUBCUT ×2 (08:38→21:47)
[2018-03-30] MEDS: NYSTATIN SUSP 500,000 UNIT/5 ML UDC 500000 UNIT PO ×4 (08:38→21:46)
[2018-03-30] MEDS: GABAPENTIN 100 MG CAPSULE PO ×3 (08:38→21:46)
[2018-03-30] MEDS: METOPROLOL IR 25 MG TABLET PO ×2 (08:38→21:46)
[2018-03-30] MEDS: FUROSEMIDE 40 MG TABLET PO ×2 (08:39→21:46)
[2018-03-30] MEDS: ALLOPURINOL 100 MG TABLET 200 MG PO (08:39)
[2018-03-30] MEDS: GLIMEPIRIDE 2 MG TABLET 1 MG PO (08:39)
[2018-03-30] MEDS: CITALOPRAM 20 MG TABLET 40 MG PO (08:40)
[2018-03-30] MEDS: PANTOPRAZOLE 40 MG VIAL IV (08:40)
--- NOTE | 2018-03-30 11:04 | PT.IPTN ---
Current Diagnoses Type 2 diabetes mellitus without complications (03/22/18) Morbid (severe) obesity due to excess calories (03/22/18) Volume depletion, unspecified (03/22/18) Hypokalemia (03/22/18) Alcohol dependence, uncomplicated (03/22/18) Other chronic pain (03/22/18) Essential (primary) hypertension (03/22/18) Diarrhea, unspecified (03/22/18) Physical Therapy Treatment Note M2 PT-IP Current Condition Start: 03/29/18 16:26 Freq: NEEDED Status: Active Protocol: Document 03/29/18 14:30 AB (Rec: 03/29/18 16:46 AB [id number]) Physical Therapy Current Condition Current Condition Evaluation Date 03/29/18 Treatment Diagnosis dehydration; alcohol withdrawal; PNA; weakness Onset Date 03/22/18 Precautions Other Precautions falls M3 PT-IP Subjective Start: 03/29/18 16:26 Freq: NEEDED Status: Active Protocol: Document 03/30/18 11:04 AB (Rec: 03/30/18 12:24 AB [id number]) Subjective Physical Therapy Visit Type Type Treatment Note Visit Start Time 11:04 Visit Stop Time 11:31 Total Visit Minutes 27 Number of DIVER TENDER Visits 0 Physical Therapy Visit Comments Patient Comments pt agreeable to do PT M4 PT-IP Mobility and Gait Start: 03/29/18 16:26 Freq: NEEDED Status: Active Protocol: Document 03/30/18 11:04 AB (Rec: 03/30/18 12:24 AB [id number]) PT-Bed Mobility Assessment Supine to Sit Supine to Sit Maximum Assistance 2 Person Assistance Scooting Scooting to Edge of Bed Dependent PT-Transfer Assessment Sit to and From Stand Sit to and from Stand Maximum Assistance 2 Person Assistance Use of Upper Extremities Equipment Transfer Assistive Device Mechanical Lift Orthotic/Prosthetic Devices or Brace: No Transfers Transfer Destination Chair Transfer Technique Mechanical Lift Transfer Ability Level of Assist 2 Person Assistance Use of Upper Extremities Comments Mobility Comments Pt completed supine to sit max A x 2 and max cues. pt with increase posterior leaning sitting on EOB requiring max A x 1-2 for maintaining sitting balance. pt requires max cues with all tasks but has better participation and following directions compared to yesterday's. pt completed sit <>stand x 2 reps requiring max A x 2 and max cues. pt with resistance and tends to push backwards requiring max A x 2 to reposition and to maintain position. Gait Assessment Comments Gait Comments unable at this time PT-Balance Assessment Sitting Balance and Reactions Static Sitting Balance Ability Poor Dynamic Sitting Balance Ability Poor Standing Balance and Reactions Static Standing Balance Ability Poor Dynamic Standing Balance Ability Poor Device Used FWW M5 PT-IP Objective Assessments Start: 03/29/18 16:26 Freq: NEEDED Status: Active Protocol: Document 03/29/18 14:30 AB (Rec: 03/29/18 16:46 AB [id number]) Orientation Orientation/Cognition Level of Alertness Lethargic Orientation Name Safety Awareness Decreased Safety Awareness Memory Description Short Term Impaired Longterm Impaired Comments pt is lethargic and confuse Gross Range of Motion Lower Extremity ROM Assessment Within Functional Limits Strength Lower Extremity Strength Assessment Bilaterally Impaired Hip 3+/5 Knee 3+/5 M6 PT-IP Treatment Start: 03/29/18 16:26 Freq: NEEDED Status: Active Protocol: Document 03/30/18 11:04 AB (Rec: 03/30/18 12:24 AB [id number]) Physical Therapy Treatment Education Education Provided Safety M7 PT-IP Assessment and Plan Start: 03/29/18 16:26 Freq: NEEDED Status: Active Protocol: Document 03/30/18 11:04 AB (Rec: 03/30/18 12:24 AB [id number]) PT Summary Assessment and Plan Potential Rehabilitation Potential Fair Summary Impairments Pain ROM Strength Balance Coordination Sensation Tone Cognition Bed Mobility Transfers Gait Activity Tolerance Progress Towards Goals Slow Progress due to Medical Issues Slow Progress due to Activity Tolerance Assessment Summary pt requiring max A x 2 to total A x 2 for mobility and will require SNF rehab to improve strength and mobility. Pt more alert today and able to follow commands better compared to yesterday. Goals Bed Mobility Goal Moderate Assistance Transfer Goal Moderate Assistance Front Wheeled Walker Gait Goal Moderate Assistance Front Wheel Walker Gait Distance 50 Days to Meet Goals 10 Frequency of Treatment Frequency Of Treatment Once a Day Treatment Plan Physical Therapy Treatment Plan Bed Mobility Training Transfer Training Gait Training Therapeutic Exercise Balance Retraining Discharge Planning Hot or Cold Pack Neuromuscular Re-ed Coordination Retraining Manual Therapy Other Recommendations and Next Treatment Assess consistency with Focus participation: bed mobility, transfers if appropriate Recommendations To Nursing Amount of Assist Needed Mechanical Lift Discharge Recommendations PT Discharge Recommendations SNF Rehab
[2018-03-30] MEDS: SODIUM CHLORIDE 0.45% 1,000 ML 75 ML IV (11:10)
--- NOTE | 2018-03-30 12:46 | PM.PN.1 ---
Subjective Date Patient Seen: 03/30/18 Time Patient Seen: 12:46 Interval history: More awake today it seems, having seen him for several days. Reportedly been largely unconscious. Is awake now and somewhat interactive. I asked him about need for inpatient alcohol rehab, he insists that he does not need that and also that he does not plan on drinking when he gets home again. Says pain is okay some appetite eating some no other concerns today. Two daughters are present today. Exam Vital Signs (past 8 hours): - 03/30/18 04:49 03/30/18 04:57 03/30/18 07:00 Temperature Pulse Rate 88 Respiratory Rate Blood Pressure 142/74 H 142/74 H Pulse Oximetry 95 03/30/18 08:00 03/30/18 11:45 Temperature 99.8 F H 98.0 F Pulse Rate 93 H 70 Respiratory Rate 17 18 Blood Pressure 154/83 H 96/42 L Pulse Oximetry 95 96 Oxygen Delivery Method Room Air Oxygen Flow Rate 0 Narrative Exam Narrative: Sitting up in a chair no evident distress somewhat somnolent. HEENT unremarkable neck is benign chest clear heart regular without murmur abdomen soft nontender nondistended normoactive bowel tones extremities with fair edema neurologically seems nonfocal. Objective Labs Result Diagrams: 03/30/18 04:45 03/30/18 04:45 Labs: Laboratory Results - last 24 hr 03/30/18 03/30/18 04:45 04:45 WBC 11.7 H RBC 3.05 L Hgb 10.6 L Hct 32.1 L MCV 105.2 H MCH 34.8 H MCHC 33.1 RDW 13.1 Plt Count 352 Neut % (Auto) Not Reportable Lymph % (Auto) Not Reportable [place] % (Auto) Not Reportable Eos % (Auto) Not Reportable Baso % (Auto) Not Reportable Lymph # (Auto) Not Reportable [place] # (Auto) Not Reportable Baso # (Auto) Not Reportable Total Counted 100 Seg Neutrophils % 65.0 Lymphocytes % (Manual) 17.0 L Monocytes % (Manual) 14.0 H Eosinophils % (Manual) 4.0 Neutrophils # (Manual) 7605 H RBC Morphology Normal morphology Sodium 143 Potassium 3.8 Chloride 105 Carbon Dioxide 28 BUN 24 H Creatinine 1.50 H Estimated GFR 46.8 L BUN/Creatinine Ratio 16.0 Glucose 137 H Calcium 9.3 Total Bilirubin 0.5 AST 40 ALT 31 Alkaline Phosphatase 71 Total Protein 6.7 Albumin 3.7 Globulin 3.0 Albumin/Globulin Ratio 1.2 Assessment & Plan (1) Alcoholism: Problem details: A slowly resolving by CIWA protocol now off most related medications and seemingly frightening up and time. Intake was rather substantial prior to admission. Will certainly benefit from inpatient rehab but shows little desire for that at this time. Will likely need some time in SNF perhaps that will be an opportunity. Current visit: No Status: Acute (2) Chronic pain: Problem details: Off most pain meds at this time and seemingly pretty free of pain. Current visit: No Status: Chronic (3) Hypertension: Problem details: Pressures have been low recently Current visit: No Status: Chronic (4) Chronic kidney disease, stage 4 (severe): Problem details: More stage III at this time perhaps better hydrated. Current visit: No Status: Chronic (5) Anemia: Problem details: Numbers got quite low during this admission though without transfusion has come up quite a bit. Continue to monitor Qualifiers: Anemia type: unspecified type Bone marrow failure anemia type: Chronic kidney disease stage: Folate deficiency anemia type: Hemolytic anemia type: Iron deficiency anemia type: Other causes of anemia: Vitamin B12 deficiency anemia type: Qualified Code(s): D64.9 - Anemia, unspecified Current visit: No Status: Deleted (6) Acute dehydration: Current visit: Yes Status: Acute (7) Volume depletion, gastrointestinal loss: Problem details: Should be replenished at this time. Current visit: Yes Status: Acute (8) Hypokalemia: Problem details: Resolved Current visit: No Status: Acute Plan: Assessment/Plan Narrative: Continue to ease off on medications hopefully in to see him wake up more thoroughly. 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 He has been quite inactive for sometime largely wheelchair-bound not entirely clear why. Has been working some with PT here I think he would benefit from ongoing PT at SNF. Will ask care management to consider options for SNF, and continue to follow labs and treatment course. Quality VTE Deep Vein Thrombosis/Pulmonary Embolism Present on Admission: No
--- NOTE | 2018-03-30 12:51 | CM.DPC ---
Addendum entered by NOELLE Vinson 03/30/18 14:27: ADD: Per [facility], they are doubtful they can accept the pt at d/c due to being bariatric and not having the right bed for the pt. SW updated them that pt is only 100.8 kg (around 220 lbs) and they stated that if pt is not requiring a evens bed then they would be willing to keep his referral and review closer to d/c. They also had concerns that pt would turn into LTC and SW discussed that family is very involved and had possibly already been working on getting the pt [facility] and [facility] states she was appreciative of this info as they currently do not have any [facility] LTC beds incase the pt needed longer support. SW confirmed with RN that pt is NOT in a evens bed or requiring bariatric equipment. Plan: SW to follow closely for further [facility] review and [facility] review. BF Original Note: DCP SNF Planning: Per MD and RN, with reduction in pt's meds pt seems to be more alert today and somewhat oriented at times and slowly improving but likely at least a couple to a few days out from being ready for discharge and recommending SNF. Per PT/OT, pt requiring lift for transfers and quite weak and quite below baseline with still some confusion and recommending SNF. SW spoke to pt's sister Alejandra ([phone]) via phone who confirmed that the pt resides in a home where he rents a room and has at least two roommates who are in their 30s and not really available to provide assist. Pt has not been established with [facility] but sister thought that pt may have an assessment scheduled to determine if he qualifies. SW called [facility] to confirm if he has been assigned to a CM and they did not currently have him in their system. Sister Alejandra also stated that pt was sober for 4 years but then relapsed 2 years ago and has been drinking heavily since and they have noted that he has declined over the past year to where he is mostly in a w/c and tends to stay at home and not go out into the community. Pt was at SNF about 5 years ago after breaking his neck and went to [facility] before he transferred to [facility]. Sister states that family is in agreement that pt needs SNF at d/c. SW met bedside with pt's 2 Dtrs (Kamille [phone], and MANDY/ [phone]) and explained role and they confirmed that they feel SNF is needed at d/c. SW discussed MCR coverage for SNF and possible barriers to placement likely being pt's ETOH hx and family acknowledged understanding but that family involvement and pt's baseline of calm and cooperative is a benefit. SW provided the SNF Choice List to review and their preference is 1) [facility] 2) [facility] since they are both closer to [facility] and then 3)[facility]. Family would be agreeable with other [facility] SNF's if needed. SW called [facility] and [facility] admissions with new referral and requested review. [facility] faxed clinicals to both facilities. PASRR completed. Plan: SW to follow closely for [facility] and [facility] review for possible placement. If both decline then referral to be sent to [facility] and other [facility] SNF's. Pt's ETOH could be a barrier to placement. SW to keep 2 Dtrs and sister updated. NOELLE Vinson
--- NOTE | 2018-03-30 14:46 | OT.IP.EVAL ---
Current Diagnoses Anemia, unspecified (03/22/18) Type 2 diabetes mellitus without complications (03/22/18) Morbid (severe) obesity due to excess calories (03/22/18) Dehydration (03/22/18) Volume depletion, unspecified (03/22/18) Hypokalemia (03/22/18) Alcohol dependence, uncomplicated (03/22/18) Other chronic pain (03/22/18) Essential (primary) hypertension (03/22/18) Chronic kidney disease, stage 4 (severe) (03/22/18) Diarrhea, unspecified (03/22/18) Past Medical History (Last Updated 03/30/18 @ 12:53 by Tyree Mcgregor MD) Anemia associated with chronic renal failure (Chronic) Symptomatic anemia (Chronic) GI bleed (Resolved) Diabetes type 2, controlled (Chronic) Alcoholism (Acute) Chronic kidney disease, stage 4 (severe) (Chronic) Depression (Chronic) Hypertension (Chronic) Hyperparathyroidism (Chronic) Chronic pain (Chronic) Duodenal ulcer (Acute) Left leg pain (Chronic) Gout, arthropathy (Chronic) History of cervical fracture (Resolved) Surgical History (Last Reviewed 03/28/18 @ 10:02 by Negrita Cooper) History of colectomy (Resolved) Occupational Therapy Inpatient Evaluation/Re-Eval M1 PT/OT-IP Prior Functional Status Start: 03/29/18 16:26 Freq: NEEDED Status: Active Protocol: Document 03/30/18 14:30 [facility] (Rec: 03/30/18 14:46 [facility] [id number]) Medical Review Prior Functional Status Medical History Reviewed Yes Communication pt inconsistent with responding to questions; has eyes mostly closed and needs to be prompted to stay awake; pt with confusion and needs reorientation cues Mobility and Gait unable to obtain PLOF from pt. from previous PT visits: pt uses a 4WW for mobility Per case management note, pt lives in a rented room and have two roommates in their 30 's but not available to assist . Social History Household Members other Living Arrangements Apartment/Condo Number of Floors (Floors) Two Floors Number of Stairs To Enter/Railing? info regarding home set up obtained from previous PT visits: pt lives in a 2 level house but stays mainly on 1st level. the other level is the basement where laundry area is and his roommate helps him with that. pt has a ramp to enter the house Home Equipment Four Wheel Walker Additional Social History Comment pt lives with a roommate but can only assist him with his laundry. M2 OT-IP Current Condition Start: 03/29/18 15:31 Freq: Status: Active Protocol: Document 03/30/18 14:30 [facility] (Rec: 03/30/18 14:46 [facility] [id number]) Occupational Therapy Current Condition Current Condition Evaluation Date 03/30/18 Treatment Diagnosis ETOH withdrawl, PNA ,weakness M3 OT- IP Subjective and Pain Start: 03/29/18 15:31 Freq: Status: Active Protocol: Document 03/30/18 14:30 [facility] (Rec: 03/30/18 14:46 [facility] [id number]) OT- Subjective Occupational Therapy Visit Type Type Initial Evaluation Visit Start Time 11:10 Visit Stop Time 11:30 Total Visit Minutes 20 Occupational Therapy Visit Comments Patient Comments Pt seen with PT for OT eval and PT treatment. M4 OT- IP ADL's Start: 03/29/18 15:31 Freq: Status: Active Protocol: Document 03/30/18 14:30 [facility] (Rec: 03/30/18 14:46 [facility] [id number]) OT EUB-Geyj-Dhnlmab Comments OT Self-Feeding Comments Pt needing [employer] assist to help lift water bottle to his mouth to drink. Pt would benefit from 1:1 feeding at this time. OT ADL-Dressing General Eval Lower Body Dressing Ability Total Assistance Comments OT Dressing Comments Pt very sleepy and total assist for all LB dressing at this time. OT ADL-Toileting Comments OT Toileting Comments Pt has catheter in. OT ADL-Bathing Comments OT Bathing Comments Dependent at this time. M6 OT- IP Functional Cognition Start: 03/29/18 15:31 Freq: Status: Active Protocol: Document 03/30/18 14:30 [facility] (Rec: 03/30/18 14:46 [facility] [id number]) Cognitive Factors Limiting Selfcare Function Cognitive Ability Level of Alertness Drowsy Patient Orientation Name Attention Span Ability Unable to Focus Unable to Sustain Attention Ability to Follow Commands Able to Follow One Step Commands with Increased Time Able to Follow One Step Commands with Repetition Memory Description Immediate Impaired Short Term Impaired Construction Checker Impaired Working Impaired Cognitive Comments Cognitive Assessment Comments Pt just mainly responding to his name at this time. Pt having difficulty to follow commands as very groogy. OT- Vision and Hearing OT- Vision Assessment Vision Assessment Comments Unable to clearly assess due to pt's decreased ability to follow commands. M7 OT- IP Mobility and Balance Start: 03/29/18 15:31 Freq: Status: Active Protocol: Document 03/30/18 14:30 [facility] (Rec: 03/30/18 14:46 [facility] [id number]) OT- Bed Mobility Assessment Rolling Level of Assistance Maximum Assistance 2 Person Assistance Supine to Sit Supine to Sit Assist Maximum Assistance 2 Person Assistance OT-Transfer Assessment Sit to and From Stand Sit to and from Stand Maximum Assistance 2 Person Assistance Technique Transfer Technique Mechanical Lift Comments Mobility Comments Pt needing from MAX Ax 1to MAXA x 2 fro sitting balance, pt tends to lean into posterior tilt and does not realize that he is falling backwards or know how to initiate use of trunk muscles to assist for sitting balance. Sit to stand MAX AX 2 with FWW, pt unable to stand upright and poor balance. It was determined at this time due to poor safety awareness, balance, weakness, that it would be best to use mechanical lift for pt for transfers. OT- Balance Assessment Sitting Balance and Reactions Static Sitting Balance Ability Poor Dynamic Sitting Balance Ability Poor Standing Balance and Reactions Static Standing Balance Ability Poor Dynamic Standing Balance Ability Poor M8 OT- IP Objective Assessments Start: 03/29/18 15:31 Freq: Status: Active Protocol: Document 03/30/18 14:30 [facility] (Rec: 03/30/18 14:46 [facility] [id number]) OT Gross Range of Motion Upper Extremity Range of Motion Assessment Bilaterally Impaired OT Strength Upper Extremity Strength Assessment Bilaterally Impaired M9 OT- IP Assessment and Plan Start: 03/29/18 15:31 Freq: Status: Active Protocol: Document 03/30/18 14:30 [facility] (Rec: 03/30/18 14:46 [facility] [id number]) OT Summary Assessment and Plan Potential Rehabilitation Potential Fair Analytic Complexity at Evaluation Low Summary OT Impairments Strength Balance Coordination Functional Cognition Functional Mobility Self-Feeding Grooming Dressing Toileting Bathing Toilet Transfers Shower Transfers Progress Towards Goals Slow Progress due to Medical Issues Slow Progress due to Activity Tolerance Slow Progress due to Cognition Assessment Summary Pt Low complexity and main barrier is not able to follow commands due to grooginess and not fully alert, poor balance ,endurance, and needing use of mechanical lift for transfers at this time. Pt is dependent for all ADL's at this time. Pt would benefit form skilled rehab prior to going home. Goals Self-Feeding Goal Standby Assistance Grooming Goal Standby Assistance Dressing Goal Moderate Assistance Toileting Goal Moderate Assistance Bathing Goal Moderate Assistance Toilet Transfer Goal Moderate Assistance Shower Transfer Goal Moderate Assistance Days to Meet Goals 10 Frequency of Treatment Frequency Of Treatment Once a Day Treatment Plan OT Treatment Plan ADL Training Functional Cognition Training Functional Mobility Patient/Family Education Discharge Planning Other Treatment Recommendations and Next Pt to be able to self feed Treatment Focus himself for 50% of the time. Discharge Recommendations OT Discharge Recommendations SNF Rehab Home Equipment Needs Defer to SNF
--- NOTE | 2018-03-30 15:04 | PC.NURSE ---
pt more alert this date- able to talk in mostly sensical sentences-, able to sit at edge of bed with much help as strength and balance are issues- does not yet feeding self - higgins d/c'd no void as of yet - plan for dc to snf at time of discharge ( in 2-3 days) ivf continues
[2018-03-30] MEDS: MELATONIN 3 MG TABLET 6 MG PO (21:46)
--- NOTE | 2018-03-30 22:35 | PC.NURSE ---
edel note pt initially sleeping. Woke up for dinner, did well being fed. Has been incontinent of urine. Still confused, but has some coherent appropriate statements.
[2018-03-31] VITALS (7 sets, daily range): BP systolic 100–141; BP diastolic 60–88; PULSE 64–78; RESP 16–78; TEMP 36.3–37.6; O2SAT 95–99
--- NOTE | 2018-03-31 | DI.CT.S_ITS ---
PROCEDURE: CT HEAD/BRAIN WO CON INDICATIONS: ongoing mental status changes TECHNIQUE: Noncontrast 4.5 mm thick angled axial sections acquired from the foramen magnum to the vertex, with coronal and sagittal reformats. For radiation dose reduction, the following was used: automated exposure control, adjustment of mA and/or kV according to patient size. COMPARISON: None. FINDINGS: Image quality: Excellent. CSF spaces: Basal cisterns are patent. No extra-axial fluid collections. The ventricles are stable in size and configuration with mild ex vacuo dilatation secondary to diffuse cortical volume loss. Brain: No intracranial bleeds or masses. There is cerebral volume loss for age, with resultant ventricular and sulcal prominence. There are periventricular and deep white matter chronic small vessel ischemic changes. There is intracranial internal carotid artery atherosclerosis. Skull and face: Calvarium and visualized facial bones appear intact, without suspicious lesions. Sinuses: Mild bilateral maxillary sinus mucosal thickening. Stable under pneumatization of the left mastoid air cells. IMPRESSION: CT head without acute intracranial abnormalities. Stable age-related senescent changes and the sequela of chronic small vessel ischemic disease. Mild bilateral maxillary sinus disease Dictated by: Peter Ramirez M.D. on 03/31/2018 at 23:02 Approved by: Peter Ramirez M.D. on 03/31/2018 at 23:06
[2018-03-31] MEDS: HYDROCODONE/ACET 10/325 TABLET 1 TAB PO (00:24)
[2018-03-31] MEDS: SODIUM CHLORIDE 0.45% 1,000 ML 75 ML IV (00:28)
--- NOTE | 2018-03-31 00:31 | PC.NURSE ---
Pt yells out frequently. Calls out for his mom and grandma. A/O to self only. Started to yell out ouch. When asked if in pain he has difficulty comprehending questions and formulating coherent answers. Medicated per orders for chronic pain. Bed alarm verified active.
[2018-03-31 05:41] LABS: Hematocrit 28.4 % (41-53); Hemoglobin 9.7 g/dL (13.5-17.5); Mean Corpuscular HGB Conc 34.3 % (30-36); Mean Corpuscular Hemoglobin 36.1 PG (26-34); Mean Corpuscular Volume 105.3 fL (80-100); Platelet Count 294 X10^3/uL (150-400); Red Cell Distribution Width 13.1 % (11.6-14.8); White Blood Cell Count 10.5 X10^3/uL (4.5-11.0)
[2018-03-31 05:44] LABS: Add Manual Diff / Slide Review YES
[2018-03-31 05:52] LABS: BUN Creatinine Ratio 17.5 (6-22); Blood Urea Nitrogen 28 mg/dL (9-20); Calcium 8.8 mg/dL (8.4-10.2); Carbon Dioxide 27 mmol/L (22-32); Chloride 104 mmol/L (98-107); Estimated Glomerular Filt Rate 43.5 mL/min (>60); Glucose 135 mg/dL (80-110); HEMOLYSIS 31 (0-50); Sodium 138 mmol/L (137-145)
[2018-03-31 06:02] LABS: Neutrophils Absolute Manual 7665 /uL (3000-5900); Total Cells Counted 100
[2018-03-31 06:03] LABS: RBC Morphology Normal Morphology
[2018-03-31] MEDS: FUROSEMIDE 40 MG TABLET PO ×2 (08:53→19:32)
[2018-03-31] MEDS: GABAPENTIN 100 MG CAPSULE PO ×3 (08:53→19:32)
[2018-03-31] MEDS: METOPROLOL IR 25 MG TABLET PO ×2 (08:53→19:31)
[2018-03-31] MEDS: GLIMEPIRIDE 2 MG TABLET 1 MG PO (08:53)
[2018-03-31] MEDS: ENOXAPARIN 30 MG/0.3 ML SYRINGE SUBCUT ×2 (08:53→19:32)
[2018-03-31] MEDS: INSULIN ASPART 100 UNIT/ML INSULN PEN SUBCUT ×4 (08:54→20:28)
[2018-03-31] MEDS: NYSTATIN SUSP 500,000 UNIT/5 ML UDC 500000 UNIT PO ×4 (08:54→19:31)
[2018-03-31] MEDS: PANTOPRAZOLE 40 MG VIAL IV (08:54)
[2018-03-31] MEDS: CITALOPRAM 20 MG TABLET 40 MG PO (08:54)
[2018-03-31] MEDS: ALLOPURINOL 100 MG TABLET 200 MG PO (08:54)
--- NOTE | 2018-03-31 10:32 | PC.NURSE ---
Addendum entered by Stalin Link R.N. 03/31/18 14:53: Intermittently sleeping or watching TV this shift. No behaviors noted. Remains confused but pleasant and cooperative. Incontinent of urine with 1 continent episode. Pt is asking some appropriate questions regarding hospitalization and plan of care. Speech is less delayed over the course of this shift. Pt was able to sit up to the chair for about an hour and was transferred back to bed via carl before transferring to radiology for head CT. Currently sitting up in bed watching TV. Original Note: Pt is awake, alert and cooperative. Oriented to self and somewhat oriented to year (states 19) and place (states medical). He is answering simple questions with yes/no responses. Initially, speech is delayed but improves as morning has progressed. He acknowledges that he has some confusion but is not resistive or uncooperative with care. He is not calling out or demonstrating signs of agitation or anxiety. Rated CIWA 3 r/t pt does not know specific date/time. Pt is able to participate in some ADLs washing his face and assisting with placement of urinal to void. Able to hold own cup and drink water. Swallowed pills whole. Currently in bed with HOB 60 degrees and watching TV. Bed alarm in use. Oriented to use of call light and instructed on use. Educated to fall risk and measures to prevent falls. Pt will likely need reinforcement of teaching. Will monitor.
--- NOTE | 2018-03-31 11:25 | PT.IPTN ---
Current Diagnoses Anemia, unspecified (03/22/18) Type 2 diabetes mellitus without complications (03/22/18) Morbid (severe) obesity due to excess calories (03/22/18) Dehydration (03/22/18) Volume depletion, unspecified (03/22/18) Hypokalemia (03/22/18) Alcohol dependence, uncomplicated (03/22/18) Other chronic pain (03/22/18) Essential (primary) hypertension (03/22/18) Chronic kidney disease, stage 4 (severe) (03/22/18) Diarrhea, unspecified (03/22/18) Physical Therapy Treatment Note M2 PT-IP Current Condition Start: 03/29/18 16:26 Freq: NEEDED Status: Active Protocol: Document 03/29/18 14:30 [facility] (Rec: 03/29/18 16:46 [facility] [id number]) Physical Therapy Current Condition Current Condition Evaluation Date 03/29/18 Treatment Diagnosis dehydration; alcohol withdrawal; PNA; weakness Onset Date 03/22/18 Precautions Other Precautions falls M3 PT-IP Subjective Start: 03/29/18 16:26 Freq: NEEDED Status: Active Protocol: Document 03/31/18 11:25 [facility] (Rec: 03/31/18 12:23 [facility] [id number]) Subjective Physical Therapy Visit Type Type Treatment Note Visit Start Time 11:05 Visit Stop Time 11:25 Total Visit Minutes 20 Notes co-treatment with OT Number of DEGREE CLERK Visits 0 Physical Therapy Visit Comments Patient Comments Pt admits to feeling a little better today. M4 PT-IP Mobility and Gait Start: 03/29/18 16:26 Freq: NEEDED Status: Active Protocol: Document 03/31/18 11:25 [facility] (Rec: 03/31/18 12:23 [facility] [id number]) PT-Bed Mobility Assessment Rolling Level of Assist Maximal Assistance 2 Person Assistance Supine to Sit Supine to Sit Maximum Assistance 2 Person Assistance Scooting Scooting to Edge of Bed Maximum Assistance PT-Transfer Assessment Sit to and From Stand Sit to and from Stand Moderate Assistance Maximum Assistance 2 Person Assistance Use of Upper Extremities Equipment Transfer Assistive Device Gait Belt Transfers Transfer Destination Chair Transfer Technique Stand Pivot Transfer Ability Level of Assist Maximum Assistance 2 Person Assistance Comments Mobility Comments Sit to stand Mod/max A x2- posterior lean, forward flexed trunk but improved with verbal and tactile cuing. Transfer performed with PT and OT assist on either side of pt, no FWW, standing pivot transfer to the R. Gait Assessment Comments Gait Comments unable M5 PT-IP Objective Assessments Start: 03/29/18 16:26 Freq: NEEDED Status: Active Protocol: Document 03/31/18 11:25 [facility] (Rec: 03/31/18 12:23 [facility] [id number]) Orientation Orientation/Cognition Level of Alertness Confusional State M6 PT-IP Treatment Start: 03/29/18 16:26 Freq: NEEDED Status: Active Protocol: Document 03/30/18 11:04 [facility] (Rec: 03/30/18 12:24 [facility] [id number]) Physical Therapy Treatment Education Education Provided Safety M7 PT-IP Assessment and Plan Start: 03/29/18 16:26 Freq: NEEDED Status: Active Protocol: Document 03/31/18 11:25 [facility] (Rec: 03/31/18 12:23 [facility] [id number]) PT Summary Assessment and Plan Summary Progress Towards Goals Slow Progress due to Medical Issues Slow Progress due to Activity Tolerance Slow Progress - Other Assessment Summary Pt able to stand x1 manually with 2 assist, but unable to take function transfer steps. Pt was transferred to chair with 2 assist and stand-pivot transfer, but recommend carl lift chair and BSC to bed. Pt is well below his prior level of function at this time, not safe to return home. Goals Bed Mobility Goal Moderate Assistance Transfer Goal Moderate Assistance Front Wheeled Walker Gait Goal Moderate Assistance Front Wheel Walker Gait Distance 50 Days to Meet Goals 10 Frequency of Treatment Frequency Of Treatment Once a Day Treatment Plan Other Recommendations and Next Treatment cont to advance sit<->stand, Focus manual transfers Recommendations To Nursing Amount of Assist Needed Mechanical Lift Discharge Recommendations PT Discharge Recommendations SNF Rehab
--- NOTE | 2018-03-31 12:50 | P.PN_ITS ---
Subjective Date Patient Seen: 03/31/18 Time Patient Seen: 12:45 Interval history: Has been a little more alert but seems to have his days and nights confused so he was up all night and now sleeping most of today. I am able to awaken him a bit and denies any pain or other issues, apparently has been eating okay. Taking enough fluids. Has not had any lorazepam and only a small amount of hydrocodone, so seems to be clear of the alcohol withdrawal at this point. Reviewed cm note about SNF placement, suspect that will be needed on Monday. Exam Vital Signs (past 8 hours): - 03/31/18 07:52 03/31/18 08:30 03/31/18 11:40 Temperature 98.0 F 97.3 F L Pulse Rate 71 64 Respiratory Rate 16 16 Blood Pressure 141/66 H 100/65 Pulse Oximetry 99 96 96 Oxygen Delivery Method Room Air Oxygen Flow Rate 0 Narrative Exam Narrative: Healthy appearing no acute distress mostly asleep. HEENT unremarkable neck is benign chest is clear heart regular without murmur abdomen extremities seem benign. Neurologically nonfocal Objective Labs Result Diagrams: 03/31/18 05:10 03/31/18 05:10 Labs: Laboratory Results - last 24 hr 03/31/18 03/31/18 05:10 05:10 WBC 10.5 RBC 2.70 L Hgb 9.7 L Hct 28.4 L MCV 105.3 H MCH 36.1 H MCHC 34.3 RDW 13.1 Plt Count 294 Neut % (Auto) Not Reportable Lymph % (Auto) Not Reportable [place] % (Auto) Not Reportable Eos % (Auto) Not Reportable Baso % (Auto) Not Reportable Lymph # (Auto) Not Reportable [place] # (Auto) Not Reportable Baso # (Auto) Not Reportable Total Counted 100 Seg Neutrophils % 68.0 Band Neutrophils % 5.0 Lymphocytes % (Manual) 14.0 L Monocytes % (Manual) 10.0 Eosinophils % (Manual) 3.0 Neutrophils # (Manual) 7665 H RBC Morphology Normal morphology Sodium 138 Potassium 4.0 Chloride 104 Carbon Dioxide 27 BUN 28 H Creatinine 1.60 H Estimated GFR 43.5 L BUN/Creatinine Ratio 17.5 Glucose 135 H Calcium 8.8 Assessment & Plan (1) Alcoholism: Problem details: With acute and severe withdrawal symptoms now off all relevant medications and seemingly doing quite well. He still seems to be quite sedated but that seems to be more of a scheduling issue he has been on no sedatives now for a couple of days. Does indicate a preference for sobriety, has refused option of inpatient treatment. Current visit: No Status: Acute (2) Weakness: Problem details: This is a chronic long-term problem that has custom fair impact in activity and life, apparently due somewhat to pain not entirely clear. Seems largely wheelchair bound though. Not sure how much improvement there might be made Current visit: Yes Status: Acute (3) Volume depletion, gastrointestinal loss: Problem details: Largely replenished at this time will stop IV fluids rely on oral only. Current visit: Yes Status: Acute (4) Diarrhea: Problem details: Not clear largely since admission possible viral process. Current visit: Yes Status: Acute (5) Anemia in CKD (chronic kidney disease): Problem details: Remains stable. Qualifiers: Chronic kidney disease stage: Current visit: No Status: Acute (6) Chronic kidney disease, stage 4 (severe): Problem details: More stage III at this time perhaps better hydrated. Current visit: No Status: Chronic (7) Diabetes type 2, controlled: Problem details: Long history of this but recent admission for hypoglycemia, And on a fairly small dose of medications so a little uncertain as to the status. Current visit: No Status: Chronic (8) Morbid obesity due to excess calories: Problem details: Impacted overall health. Current visit: Yes Status: Acute (9) Pneumonia: Problem details: This was identified at time of admission presumed community-acquired has been treated with success. Current visit: Yes Status: Acute (10) Chronic pain: Problem details: Off most pain meds at this time and seemingly pretty free of pain. Current visit: No Status: Chronic (11) Hypertension: Problem details: Pressures have been low recently Current visit: No Status: Chronic (12) Metabolic encephalopathy: Current visit: Yes Status: Acute Plan: Assessment/Plan Narrative: Hope is mental status clears a bit more, will stop the withdrawal medications, convert the 1 IV medication to oral, stop IV fluids, encourage oral fluids. Continue to work with physical and occupational therapy. Suspect should be ready for transfer to SNF on Monday, in 2 days. Quality VTE Deep Vein Thrombosis/Pulmonary Embolism Present on Admission: No
--- NOTE | 2018-03-31 13:32 | OT.IP.TRT ---
Current Diagnoses Anemia in chronic kidney disease (03/22/18) Anemia, unspecified (03/22/18) Type 2 diabetes mellitus without complications (03/22/18) Morbid (severe) obesity due to excess calories (03/22/18) Dehydration (03/22/18) Volume depletion, unspecified (03/22/18) Hypokalemia (03/22/18) Alcohol dependence, uncomplicated (03/22/18) Other chronic pain (03/22/18) Metabolic encephalopathy (03/22/18) Essential (primary) hypertension (03/22/18) Pneumonia, unspecified organism (03/22/18) Chronic kidney disease, stage 4 (severe) (03/22/18) Chronic kidney disease, unspecified (03/22/18) Diarrhea, unspecified (03/22/18) Weakness (03/22/18) Occupational Therapy Treatment Note M2 OT-IP Current Condition Start: 03/29/18 15:31 Freq: Status: Active Protocol: Document 03/30/18 14:30 [facility] (Rec: 03/30/18 14:46 [facility] [id number]) Occupational Therapy Current Condition Current Condition Evaluation Date 03/30/18 Treatment Diagnosis ETOH withdrawl, PNA ,weakness M3 OT- IP Subjective and Pain Start: 03/29/18 15:31 Freq: Status: Active Protocol: Document 03/31/18 13:24 [facility] (Rec: 03/31/18 13:32 [facility] [id number]) OT- Subjective Occupational Therapy Visit Type Type Treatment Note Visit Start Time 11:05 Visit Stop Time 11:25 Total Visit Minutes 20 Occupational Therapy Visit Comments Patient Comments Pt willing to get up. Pt cooperative and more alert and able to engage in conversation with PT/OT OT Pain Assessment Pain When Pain Assessed At Rest Pain Present Pain Present Denied Pain M4 OT- IP ADL's Start: 03/29/18 15:31 Freq: Status: Active Protocol: Document 03/31/18 OT [id number] Comments OT Self-Feeding Comments Pt able to use right hand to cook pickled meat water bottle to bring to mouth today, not able to use left arm to assist. OT ADL-Dressing General Eval Lower Body Dressing Ability Total Assistance Comments OT Dressing Comments Pt very sleepy and total assist for all LB dressing at this time. OT ADL-Toileting Comments OT Toileting Comments Pt has catheter in. OT ADL-Bathing Comments OT Bathing Comments Dependent at this time. M6 OT- IP Functional Cognition Start: 03/29/18 15:31 Freq: Status: Active Protocol: Document 03/31/18 13:24 [facility] (Rec: 03/31/18 13:32 [facility] [id number]) Cognitive Factors Limiting Selfcare Function Cognitive Ability Level of Alertness Alert Patient Orientation Name Attention Span Ability Capable of Focused Attention Capable of Sustained Attention Ability to Follow Commands Able to Follow One Step Commands Cognitive Comments Cognitive Assessment Comments Pt more consistent to follow one step commands today. M7 OT- IP Mobility and Balance Start: 03/29/18 15:31 Freq: Status: Active Protocol: Document 03/31/18 13:24 [facility] (Rec: 03/31/18 13:32 [facility] [id number]) OT- Bed Mobility Assessment Rolling Type of Rolling Roll to Right Level of Assistance Maximum Assistance 2 Person Assistance Supine to Sit Supine to Sit Assist Maximum Assistance 2 Person Assistance OT-Transfer Assessment Sit to and From Stand Sit to and from Stand Moderate Assistance Maximum Assistance 2 Person Assistance Transfers Transfer Ability Maximum Assistance 2 Person Assistance Technique Transfer Destination Chair Transfer Technique Stand Step Pivot Devices Transfer Assistive Devices None Gait Belt Comments Mobility Comments Pt still needing extensive assist x 2o for bed mobility needs. Pt able to improve with sitting balance from yesterday and at times able to sit with DONNA, otherwise MODA x1. Pt MOD/MAX a x 2 to stand to FWW, having difficulty to straighten his ges and stay standing. Transfer to recliner with MAX A X2 stand pivot with therapist on each side. Recommend still meachinal lift for nursing staff at this time. OT- Balance Assessment Sitting Balance and Reactions Static Sitting Balance Ability Poor Dynamic Sitting Balance Ability Poor Standing Balance and Reactions Static Standing Balance Ability Poor Dynamic Standing Balance Ability Poor M8 OT- IP Objective Assessments Start: 03/29/18 15:31 Freq: Status: Active Protocol: Document 03/30/18 14:30 [facility] (Rec: 03/30/18 14:46 [facility] [id number]) OT Gross Range of Motion Upper Extremity Range of Motion Assessment Bilaterally Impaired OT Strength Upper Extremity Strength Assessment Bilaterally Impaired M9 OT- IP Assessment and Plan Start: 03/29/18 15:31 Freq: Status: Active Protocol: Document 03/31/18 13:24 [facility] (Rec: 03/31/18 13:32 [facility] [id number]) OT Summary Assessment and Plan Potential Rehabilitation Potential Good Analytic Complexity at Evaluation Low Summary OT Impairments Strength Balance Coordination Functional Cognition Functional Mobility Self-Feeding Grooming Dressing Toileting Bathing Toilet Transfers Shower Transfers Progress Towards Goals Slow Progress due to Medical Issues Slow Progress due to Activity Tolerance Slow Progress due to Cognition Assessment Summary Pt able to tolerate and assist more for bed mobility and functional mobility but still needing extensive assist x2. Pt would benefit form skilled rehab as far from baseline of BRAD with all ADl and functional mobility needs. Pt continues to need 1:1 assist for feeding and assist for all ADL's at this time. Goals Self-Feeding Goal Standby Assistance Grooming Goal Standby Assistance Dressing Goal Moderate Assistance Toileting Goal Moderate Assistance Bathing Goal Moderate Assistance Toilet Transfer Goal Moderate Assistance Shower Transfer Goal Moderate Assistance Days to Meet Goals 10 Frequency of Treatment Frequency Of Treatment Once a Day Treatment Plan OT Treatment Plan ADL Training Functional Cognition Training Functional Mobility Patient/Family Education Discharge Planning Other Treatment Recommendations and Next Pt to be able to self feed Treatment Focus himself for 50% of the time. Discharge Recommendations OT Discharge Recommendations SNF Rehab Home Equipment Needs Defer to SNF
--- NOTE | 2018-03-31 13:51 | CM.DPC ---
DCP Cont: Per RN, pt now off CIWA protocol and Ativan has been discontinued and pt on P.O. now. Pt more alert and somewhat oriented, slightly better than yesterday. Pt to have CT scan today. No family bedside yet but sister and sister inlaw to be bedside later this afternoon/evening. SW received a call from [facility] admissions requesting pt's weight and height and SW provided and they will continue to review and call back with determination if they can accept or not. Plan: SW to continue to follow for 1) [facility] 2) [facility] 3) [facility] review of pt clinicals to determine if they can accept for SNF rehab at d/c. SW to fax referral to other [facility] SNF's if these decline. NOELLE Vinson
[2018-03-31] MEDS: QUETIAPINE 25 MG TABLET PO (19:31)
[2018-03-31] MEDS: MELATONIN 3 MG TABLET 6 MG PO (20:26)
[2018-04-01] VITALS (8 sets, daily range): BP systolic 126–159; BP diastolic 64–88; PULSE 57–89; RESP 16–20; TEMP 36.6–37.2; O2SAT 95–98
--- NOTE | 2018-04-01 03:10 | PC.NURSE ---
Wide awake and has not slept, confused to place and time and situation. Convinced he went for a walk outside and that he is now in the basement and wants to go to his room. Refuses to believe where he is or what time it is.
[2018-04-01 05:07] LABS: Add Manual Diff / Slide Review NO; Basophils Absolute Auto 100 /uL (0-100); Basophils Percent Auto 0.3 % (0-2); Eosinophils Absolute Auto 300 /uL (0-450); Eosinophils Percent Auto 1.7 % (2-4); Hematocrit 28.2 % (41-53); Hemoglobin 9.6 g/dL (13.5-17.5); Lymphocytes Absolute Auto 1800 /uL (1100-4500); Lymphocytes Percent Auto 10.8 % (25-40); Mean Corpuscular Hemoglobin 35.1 PG (26-34); Mean Corpuscular Volume 103.1 fL (80-100); Monocytes Absolute Auto 1300 /uL (0-900); Monocytes Percent Auto 7.7 % (3-14); Neutrophils Absolute Auto 13100 /uL (1500-7000); Neutrophils Percent Auto 79.5 % (50-75); Platelet Count 327 X10^3/uL (150-400); Red Blood Cell Count 2.73 X10^6/uL (4.5-5.9); White Blood Cell Count 16.5 X10^3/uL (4.5-11.0)
[2018-04-01 05:14] LABS: BUN Creatinine Ratio 15.3 (6-22); Blood Urea Nitrogen 29 mg/dL (9-20); Calcium 8.5 mg/dL (8.4-10.2); Carbon Dioxide 29 mmol/L (22-32); Chloride 101 mmol/L (98-107); Estimated Glomerular Filt Rate 35.6 mL/min (>60); Glucose 127 mg/dL (80-110); HEMOLYSIS < 15 (0-50); Potassium 3.8 mmol/L (3.4-5.1); Sodium 138 mmol/L (137-145)
--- NOTE | 2018-04-01 06:59 | PC.NURSE ---
Has not slept all night.
[2018-04-01] MEDS: INSULIN ASPART 100 UNIT/ML INSULN PEN SUBCUT ×3 (08:18→17:10)
[2018-04-01] MEDS: GLIMEPIRIDE 2 MG TABLET 1 MG PO (08:19)
[2018-04-01] MEDS: ENOXAPARIN 30 MG/0.3 ML SYRINGE SUBCUT ×2 (08:19→21:10)
[2018-04-01] MEDS: GABAPENTIN 100 MG CAPSULE PO ×3 (08:19→21:10)
[2018-04-01] MEDS: ALLOPURINOL 100 MG TABLET 200 MG PO (08:19)
[2018-04-01] MEDS: FUROSEMIDE 40 MG TABLET PO ×2 (08:19→21:10)
[2018-04-01] MEDS: CITALOPRAM 20 MG TABLET 40 MG PO (08:19)
[2018-04-01] MEDS: METOPROLOL IR 25 MG TABLET PO ×2 (08:20→21:11)
[2018-04-01] MEDS: NYSTATIN SUSP 500,000 UNIT/5 ML UDC 500000 UNIT PO ×4 (08:20→21:11)
[2018-04-01] MEDS: PANTOPRAZOLE 40 MG TABLET PO (08:52)
[2018-04-01] MEDS: GLYCERIN SUPP ADULT 1 SUPP 1 EACH PR (10:06)
--- NOTE | 2018-04-01 10:30 | PC.NURSE ---
Rec'd pt in bed resting comfortably. Opens eyes to verbal stimuli and answers questions with clear speech. He is oriented to self. States he's in [place]. Unsure of year. He is calm and cooperative with care and accepts reorientation but is forgetful. Able to sit up to chair for breakfast and feed self with min assist and frequent cues. Performs own oral care with cues. States he is really tired today because he wasn't able to sleep last night. Lungs remain clear but diminished. Instructed pt on use of incentive spirometer. I know how this works. I've used it before. Was able to get to 1000 with 5 repititions. Mostly incontinent of urine but was able to use the urinal to void 100 ML of clear yellow urine. Pt requested to use the bathroom. Remigio lift used to place pt on BSC. Pt was unable to void or have BM. Supp given. Currently resting in bed with eyes closed and even/unlabored RR. Bed alarm in use, call light in reach.
--- NOTE | 2018-04-01 11:29 | CM.DPC ---
DCP/continued: Received phone call from [facility]. They report that they are unable to accept this patient when medically stable. [facility] reports that they currently cannot meet patient's needs? [employer] G[employer] TECHNICIAN will call [facility] to check on possibility and will fax to Michelle Diop for review. P: Pending. Patient requiring SNF when stable. Most likely will need long-term planning after rehab. Patient already with Medicaid. NOELLE Funes
--- NOTE | 2018-04-01 12:02 | PM.PN.1 ---
Subjective Date Patient Seen: 04/01/18 Time Patient Seen: 12:02 Interval history: Awake and alert, able to respond but tends to slur speech a bit. Denies any pain breathing is comfortable, appetite is okay. Discussed need for SNF likely transfer tomorrow, he is agreeable. Exam Vital Signs (past 8 hours): - 04/01/18 07:45 04/01/18 11:00 Temperature 97.8 F 98.2 F Pulse Rate 88 57 L Respiratory Rate 17 16 Blood Pressure 159/88 H 157/76 H Pulse Oximetry 98 95 Oxygen Delivery Method Room Air Oxygen Flow Rate 0 Narrative Exam Narrative: Eyes closed but readily open to voice HEENT unremarkable chest is clear heart regular without murmur abdomen soft nontender nondistended normoactive bowel tones extremities without edema intact pulses neurologically nonfocal. Objective Labs Result Diagrams: 04/01/18 04:43 04/01/18 04:43 Labs: Laboratory Results - last 24 hr 04/01/18 04/01/18 04:43 04:43 WBC 16.5 H D RBC 2.73 L Hgb 9.6 L Hct 28.2 L MCV 103.1 H MCH 35.1 H MCHC 34.0 RDW 13.0 Plt Count 327 Neut % (Auto) 79.5 H Lymph % (Auto) 10.8 L [place] % (Auto) 7.7 Eos % (Auto) 1.7 L Baso % (Auto) 0.3 Neut # (Auto) 26552 H Lymph # (Auto) 1800 [place] # (Auto) 1300 H Eos # (Auto) 300 Baso # (Auto) 100 Sodium 138 Potassium 3.8 Chloride 101 Carbon Dioxide 29 BUN 29 H Creatinine 1.90 H Estimated GFR 35.6 L BUN/Creatinine Ratio 15.3 Glucose 127 H Calcium 8.5 Assessment & Plan (1) Metabolic encephalopathy: Current visit: Yes Status: Acute (2) Volume depletion, gastrointestinal loss: Problem details: Largely replenished at this time will stop IV fluids rely on oral only. Current visit: Yes Status: Acute (3) Constipation: Problem details: Initially some diarrhea now more the opposite have been working on that. Current visit: No Status: Acute (4) Alcoholism: Problem details: Remains free of any withdrawal symptoms, states still committed to sobriety. Current visit: No Status: Acute (5) Diabetes type 2, controlled: Problem details: Long history of this but recent admission for hypoglycemia, And on a fairly small dose of medications so a little uncertain as to the status. Current visit: No Status: Chronic (6) Chronic kidney disease, stage 4 (severe): Problem details: More stage III at this time perhaps better hydrated. Current visit: No Status: Chronic (7) Chronic pain: Problem details: Off most pain meds at this time and seemingly pretty free of pain. Current visit: No Status: Chronic (8) Hypertension: Problem details: Beginning to climb over the last day or 2. Current visit: No Status: Chronic (9) Weakness: Problem details: Has been largely immobile for several months it seems. Does seem to be responding some to PT here though hope that ongoing therapy can help him regain some mobility. Current visit: Yes Status: Acute (10) Leukocytosis: Problem details: Up fairly strikingly today no clear cause. Will check UA. Current visit: Yes Status: Acute (11) Morbid obesity due to excess calories: Problem details: Impacted overall health. Current visit: Yes Status: Acute Plan: Assessment/Plan Narrative: Still require a SNF after discharge anticipating that could occur tomorrow. Looks as though there is some issues with placement per CM, hope that can be sorted out. Will DC his IV is were not using that access, continue to follow labs. Quality VTE Deep Vein Thrombosis/Pulmonary Embolism Present on Admission: No
--- NOTE | 2018-04-01 14:30 | PT.IPTN ---
Current Diagnoses Anemia in chronic kidney disease (03/22/18) Anemia, unspecified (03/22/18) Elevated white blood cell count, unspecified (03/22/18) Type 2 diabetes mellitus without complications (03/22/18) Morbid (severe) obesity due to excess calories (03/22/18) Dehydration (03/22/18) Volume depletion, unspecified (03/22/18) Hypokalemia (03/22/18) Alcohol dependence, uncomplicated (03/22/18) Other chronic pain (03/22/18) Metabolic encephalopathy (03/22/18) Essential (primary) hypertension (03/22/18) Pneumonia, unspecified organism (03/22/18) Constipation, unspecified (03/22/18) Chronic kidney disease, stage 4 (severe) (03/22/18) Chronic kidney disease, unspecified (03/22/18) Diarrhea, unspecified (03/22/18) Weakness (03/22/18) Physical Therapy Treatment Note M2 PT-IP Current Condition Start: 03/29/18 16:26 Freq: NEEDED Status: Active Protocol: Document 03/29/18 14:30 [facility] (Rec: 03/29/18 16:46 [facility] [id number]) Physical Therapy Current Condition Current Condition Evaluation Date 03/29/18 Treatment Diagnosis dehydration; alcohol withdrawal; PNA; weakness Onset Date 03/22/18 Precautions Other Precautions falls M3 PT-IP Subjective Start: 03/29/18 16:26 Freq: NEEDED Status: Active Protocol: Document 04/01/18 14:30 [facility] (Rec: 04/01/18 15:15 [facility] [id number]) Subjective Physical Therapy Visit Type Type Treatment Note Visit Start Time 14:30 Visit Stop Time 15:00 Total Visit Minutes 30 Number of COMPUTER DRAFTER Visits 0 Physical Therapy Visit Comments Patient Comments pt willing to participate in therapy. M4 PT-IP Mobility and Gait Start: 03/29/18 16:26 Freq: NEEDED Status: Active Protocol: Document 04/01/18 14:30 [facility] (Rec: 04/01/18 15:15 [facility] [id number]) PT-Bed Mobility Assessment Supine to Sit Supine to Sit Maximum Assistance 1 Person Assistance Scooting Scooting to Edge of Bed Maximum Assistance PT-Transfer Assessment Sit to and From Stand Sit to and from Stand Maximum Assistance 2 Person Assistance Use of Upper Extremities Equipment Transfer Assistive Device Gait Belt Front Wheeled Walker Transfers Transfer Destination Chair Bedside Commode Transfer Technique Stand Step Pivot Transfer Ability Level of Assist Maximum Assistance 2 Person Assistance Use of Upper Extremities Comments Mobility Comments manual transfer to BS with FWW and 2 assist. Power Stander utilized for sit to stand from BS after BM, AIR TOOL OPERATOR assisted with cleaning. and pt placed in chair, reclined, chair alarm on. PT-Balance Assessment Standing Balance and Reactions Static Standing Balance Ability Poor Dynamic Standing Balance Ability Poor Comments Other Balance Tests/Deviations/Treatment Min/mod A sitting on EOB, : leaning to the L M5 PT-IP Objective Assessments Start: 03/29/18 16:26 Freq: NEEDED Status: Active Protocol: Document 03/31/18 11:25 [facility] (Rec: 03/31/18 12:23 [facility] [id number]) Orientation Orientation/Cognition Level of Alertness Confusional State M6 PT-IP Treatment Start: 03/29/18 16:26 Freq: NEEDED Status: Active Protocol: Document 03/30/18 11:04 [facility] (Rec: 03/30/18 12:24 [facility] [id number]) Physical Therapy Treatment Education Education Provided Safety M7 PT-IP Assessment and Plan Start: 03/29/18 16:26 Freq: NEEDED Status: Active Protocol: Document 04/01/18 14:30 [facility] (Rec: 04/01/18 15:15 [facility] [id number]) PT Summary Assessment and Plan Summary Assessment Summary Pt able to manually transfer using FWW, stepping with very short steps to thge R, Max A x2. Pt required the use of a Power Stander to get upright from [facility]. Pt was more clear today, able to follow commands and less assistance required with sitting on EOB, although unable to sit unsupported. Goals Bed Mobility Goal Moderate Assistance Transfer Goal Moderate Assistance Front Wheeled Walker Gait Goal Moderate Assistance Front Wheel Walker Gait Distance 50 Days to Meet Goals 10 Frequency of Treatment Frequency Of Treatment Once a Day Treatment Plan Other Recommendations and Next Treatment cont to advance sit<->stand, Focus manual transfers Recommendations To Nursing Amount of Assist Needed Power Sit-Stand Discharge Recommendations PT Discharge Recommendations SNF Rehab
--- NOTE | 2018-04-01 19:31 | PC.NURSE ---
1930- Patient unable to void and has not been incontinent. Bladder scan shows 650ml in bladder. Order to straight cath prn per Dr. Mcgregor.
--- NOTE | 2018-04-01 21:00 | PC.NURSE ---
2030- Patient straight cathed with non latex catheter for 550ml. Urine sent for UA per order.
[2018-04-01] MEDS: MELATONIN 3 MG TABLET 6 MG PO (21:10)
[2018-04-01] MEDS: QUETIAPINE 25 MG TABLET PO (21:12)
[2018-04-01 21:13] LABS: Bacteria Urine None Seen; RBC Urine None Seen (0-5/HPF); WBC Urine None Seen (0-5/HPF)
[2018-04-01 21:16] LABS: Appearance Urine UA CLEAR; Bilirubin Urine UA NEGATIVE (NEGATIVE); Color Urine UA YELLOW; Glucose Urine UA NEGATIVE (Negative); Ketones Urine UA NEGATIVE (NEGATIVE); Leukocyte Esterase Urine UA NEGATIVE (NEGATIVE); Nitrite Urine UA NEGATIVE (Negative); Occult Blood Urine UA NEGATIVE (Negative); Protein Urine UA NEGATIVE (Negative); Specific Gravity Urine UA <=1.005 (1.000-1.035); Urobilinogen Urine UA 0.2 E.U./dL (0.2)
[2018-04-01 21:27] LABS: Culture Indicated Urine Cult Not Indicated; Urine Comments Microscopic Normal
[2018-04-02] VITALS (9 sets, daily range): BP systolic 118–176; BP diastolic 63–80; PULSE 63–78; RESP 16–18; TEMP 36.5–37.4; O2SAT 95–98
[2018-04-02 05:08] LABS: Add Manual Diff / Slide Review NO; Basophils Absolute Auto 100 /uL (0-100); Basophils Percent Auto 0.4 % (0-2); Eosinophils Absolute Auto 300 /uL (0-450); Eosinophils Percent Auto 2.4 % (2-4); Hematocrit 27.5 % (41-53); Hemoglobin 9.4 g/dL (13.5-17.5); Lymphocytes Absolute Auto 1900 /uL (1100-4500); Lymphocytes Percent Auto 15.1 % (25-40); Mean Corpuscular HGB Conc 34.1 % (30-36); Mean Corpuscular Hemoglobin 35.4 PG (26-34); Mean Corpuscular Volume 103.6 fL (80-100); Monocytes Absolute Auto 1100 /uL (0-900); Neutrophils Absolute Auto 9200 /uL (1500-7000); Neutrophils Percent Auto 73.1 % (50-75); Platelet Count 330 X10^3/uL (150-400); Red Blood Cell Count 2.65 X10^6/uL (4.5-5.9); Red Cell Distribution Width 13.1 % (11.6-14.8); White Blood Cell Count 12.6 X10^3/uL (4.5-11.0)
[2018-04-02 05:11] LABS: Blood Urea Nitrogen 36 mg/dL (9-20); Carbon Dioxide 28 mmol/L (22-32); Chloride 102 mmol/L (98-107); Potassium 3.8 mmol/L (3.4-5.1); Sodium 139 mmol/L (137-145)
[2018-04-02 05:12] LABS: BUN Creatinine Ratio 18.9 (6-22); Calcium 8.6 mg/dL (8.4-10.2); Estimated Glomerular Filt Rate 35.6 mL/min (>60); Glucose 147 mg/dL (80-110); HEMOLYSIS < 15 (0-50)
[2018-04-02] MEDS: HYDROCODONE/ACET 10/325 TABLET 1 TAB PO ×3 (05:29→17:22)
--- NOTE | 2018-04-02 09:01 | P.PN_ITS ---
Subjective Date Patient Seen: 04/02/18 Time Patient Seen: 08:55 Interval history: Says better. No complaints particularly, of breathing pain or other. Willing to do it over at this point. Exam Vital Signs (past 8 hours): - 04/02/18 04:08 Temperature 98.2 F Pulse Rate 78 Respiratory Rate 18 Blood Pressure 176/80 H Pulse Oximetry 96 Oxygen Delivery Method Room Air Oxygen Flow Rate 0 Narrative Exam Narrative: Lying quietly in bed, eyes closed but easily aroused minimal but appropriate responses. HEENT unremarkable neck is benign chest quite clear heart regular without murmur abdomen soft nontender nondistended normoactive bowel tones extremities benign neurologically benign Objective Labs Result Diagrams: 04/02/18 04:50 04/02/18 04:50 Labs: Laboratory Results - last 24 hr 04/01/18 04/02/18 04/02/18 21:00 04:50 04:50 WBC 12.6 H RBC 2.65 L Hgb 9.4 L Hct 27.5 L MCV 103.6 H MCH 35.4 H MCHC 34.1 RDW 13.1 Plt Count 330 Neut % (Auto) 73.1 Lymph % (Auto) 15.1 L [place] % (Auto) 9.0 Eos % (Auto) 2.4 Baso % (Auto) 0.4 Neut # (Auto) 9200 H Lymph # (Auto) 1900 [place] # (Auto) 1100 H Eos # (Auto) 300 Baso # (Auto) 100 Sodium 139 Potassium 3.8 Chloride 102 Carbon Dioxide 28 BUN 36 H Creatinine 1.90 H Estimated GFR 35.6 L BUN/Creatinine Ratio 18.9 Glucose 147 H Calcium 8.6 Urine Color Yellow Urine Appearance Clear Urine pH 6.0 Ur Specific [place] <=1.005 Urine Protein Negative Urine Glucose (UA) Negative Urine Ketones Negative Urine Occult Blood Negative Urine Nitrate Negative Urine Bilirubin Negative Urine Urobilinogen 0.2 Ur Leukocyte Esterase Negative Urine RBC None seen Urine WBC None seen Urine Bacteria None seen Ur Culture Indicated? Cult not indicated Micro UA Comment Microscopic normal Assessment & Plan (1) Metabolic encephalopathy: Problem details: Perhaps some residual residual impact of his alcohol withdrawal. Pretty clear but speech is a bit garbled, at least stable at this point. Current visit: Yes Status: Acute (2) Alcoholism: Problem details: Remains free of any withdrawal symptoms, states still committed to sobriety. Off all related medications. Current visit: No Status: Acute (3) Diabetes type 2, controlled: Problem details: Long history of this but recent admission for hypoglycemia, And on a fairly small dose of medications so a little uncertain as to the status. Current visit: No Status: Chronic (4) Chronic kidney disease, stage 4 (severe): Problem details: More stage III at this time perhaps better hydrated. Creatinine fluctuates but relatively stable. Current visit: No Status: Chronic (5) Hypertension: Problem details: Beginning to climb over the last day or 2. Current visit: No Status: Chronic (6) Chronic pain: Problem details: Off most pain meds at this time and seemingly pretty free of pain. Current visit: No Status: Chronic (7) Weakness: Problem details: Has been largely immobile for several months it seems. Does seem to be responding some to PT here though hope that ongoing therapy can help him regain some mobility. Current visit: Yes Status: Acute (8) Anemia in CKD (chronic kidney disease): Problem details: Remains stable. Qualifiers: Chronic kidney disease stage: Current visit: No Status: Acute Plan: Assessment/Plan Narrative: Besides adding blood pressure medicine will keep everything else the same. It does seem medically stable at this point and ready for transfer. Just spoke with care management to is having hard time finding placement options. So far the 2 top of the list have refused for uncertain reasons, other options are being pursued. Anticipating transfer tomorrow. Quality VTE Deep Vein Thrombosis/Pulmonary Embolism Present on Admission: No
[2018-04-02] MEDS: INSULIN ASPART 100 UNIT/ML INSULN PEN SUBCUT ×3 (09:21→16:33)
[2018-04-02] MEDS: ALLOPURINOL 100 MG TABLET 200 MG PO (09:21)
[2018-04-02] MEDS: ENOXAPARIN 30 MG/0.3 ML SYRINGE SUBCUT ×2 (09:21→20:19)
[2018-04-02] MEDS: CITALOPRAM 20 MG TABLET 40 MG PO (09:21)
[2018-04-02] MEDS: GABAPENTIN 100 MG CAPSULE PO ×3 (09:22→20:19)
[2018-04-02] MEDS: FUROSEMIDE 40 MG TABLET PO ×2 (09:22→20:19)
[2018-04-02] MEDS: METOPROLOL IR 25 MG TABLET PO ×2 (09:22→20:20)
[2018-04-02] MEDS: GLIMEPIRIDE 2 MG TABLET 1 MG PO (09:22)
[2018-04-02] MEDS: LISINOPRIL 10 MG TABLET PO (09:22)
[2018-04-02] MEDS: PANTOPRAZOLE 40 MG TABLET PO (09:23)
[2018-04-02] MEDS: NYSTATIN SUSP 500,000 UNIT/5 ML UDC 500000 UNIT PO ×4 (09:23→20:19)
--- NOTE | 2018-04-02 09:57 | PC.NURSE ---
Pt able to state name, birthday, date/time, and location this AM. He is confused regarding details of hospitalization and some events leading up to. He states he was drinking heavily prior to coming to the hospital. He states he will not resume drinking alcohol after this. His speech is clear and he is making his needs known for the most part, although still having urinary incontinence. He is not attempting to get OOB without assistance. He is able to feed himself breakfast with better dexterity and set up assistance. He also assisted with performing hygiene care. Swallows pills whole with water. Currently denies pain. Educated to risk for falls and instructed on use of call light which is in easy reach. Maintaining bed alarm r/t high fall risk and frequently rounding to assess needs.
--- NOTE | 2018-04-02 12:55 | OT.IP.TRT ---
Current Diagnoses Anemia in chronic kidney disease (03/22/18) Anemia, unspecified (03/22/18) Elevated white blood cell count, unspecified (03/22/18) Type 2 diabetes mellitus without complications (03/22/18) Morbid (severe) obesity due to excess calories (03/22/18) Dehydration (03/22/18) Volume depletion, unspecified (03/22/18) Hypokalemia (03/22/18) Alcohol dependence, uncomplicated (03/22/18) Other chronic pain (03/22/18) Metabolic encephalopathy (03/22/18) Essential (primary) hypertension (03/22/18) Pneumonia, unspecified organism (03/22/18) Constipation, unspecified (03/22/18) Chronic kidney disease, stage 4 (severe) (03/22/18) Chronic kidney disease, unspecified (03/22/18) Diarrhea, unspecified (03/22/18) Weakness (03/22/18) Occupational Therapy Treatment Note M2 OT-IP Current Condition Start: 03/29/18 15:31 Freq: Status: Active Protocol: Document 03/30/18 14:30 [facility] (Rec: 03/30/18 14:46 [facility] [id number]) Occupational Therapy Current Condition Current Condition Evaluation Date 03/30/18 Treatment Diagnosis ETOH withdrawl, PNA ,weakness M3 OT- IP Subjective and Pain Start: 03/29/18 15:31 Freq: Status: Active Protocol: Document 04/02/18 12:39 [facility] (Rec: 04/02/18 12:55 [facility] [id number]) OT- Subjective Occupational Therapy Visit Type Type Treatment Note Visit Start Time 11:35 Visit Stop Time 12:05 Total Visit Minutes 30 Occupational Therapy Visit Comments Patient Comments Pt agreeable to get up and able to joke around today during conversation. M4 OT- IP ADL's Start: 03/29/18 15:31 Freq: Status: Active Protocol: Document 04/02/18 12:39 [facility] (Rec: 04/02/18 12:55 [facility] [id number]) OT [id number] Comments OT Self-Feeding Comments Nursing states today, pt able to self feed himself after initial set-up. Pt return of AROM for BUE in all movements. OT ADL-Grooming General Evaluation Grooming Ability Standby Assistance Areas Needing Assistance Retrieving/Set-up of Grooming Items Comments OT Grooming Comments Set-up needed otherwise pt able to do all grooming needs while sitting in the recliner. OT ADL-Dressing General Eval Lower Body Dressing Ability Maximum Assistance Areas Needing Assistance Underpants/Brief Socks Comments OT Dressing Comments Pt needing 2 person assist to stand with FWW and another to help pull up brief over his hips. Dependent for socks at this time. M6 OT- IP Functional Cognition Start: 03/29/18 15:31 Freq: Status: Active Protocol: Document 04/02/18 12:39 [facility] (Rec: 04/02/18 12:55 [facility] [id number]) Cognitive Factors Limiting Selfcare Function Cognitive Ability Level of Alertness Alert Patient Orientation Name Attention Span Ability Capable of Focused Attention Capable of Sustained Attention Ability to Follow Commands Able to Follow One Step Commands with Increased Time Able to Follow One Step Commands with Repetition Memory Description Short Term Impaired Safety Awareness Underestimates Need for Assistance Cognitive Comments Cognitive Assessment Comments Pt needing increased time to follow commands, however consistent. Pt able to follow multiple commands for ADl needs. M7 OT- IP Mobility and Balance Start: 03/29/18 15:31 Freq: Status: Active Protocol: Document 04/02/18 12:39 [facility] (Rec: 04/02/18 12:55 [facility] [id number]) OT- Bed Mobility Assessment Supine to Sit Supine to Sit Assist Moderate Assistance 2 Person Assistance OT-Transfer Assessment Sit to and From Stand Sit to and from Stand Maximum Assistance 2 Person Assistance Transfers Transfer Ability Maximum Assistance 2 Person Assistance Technique Transfer Destination Chair Transfer Technique Stand Pivot Devices Transfer Assistive Devices Gait Belt Front Wheeled Walker Comments Mobility Comments Pt able needing MAX A X 2 to stand with FWW and not able to take side steps and therefore took steps forwards with MAX A x2 to assist with balance and weight shifting. nursing aid able to bring recliner in back of him to sit . Pt heavily relying on his arms on FWW however , at times would let go of FWW. Poor safety awareness, in addition decreased awareness of midline for sitting and standing. Pt feels that he in leaning to the left when he is actually leaning backwards and to the right. OT- Balance Assessment Sitting Balance and Reactions Static Sitting Balance Ability Poor Dynamic Sitting Balance Ability Poor Standing Balance and Reactions Static Standing Balance Ability Poor Dynamic Standing Balance Ability Poor Comments Other Balance Tests/Deviations/Treatment Today increased sitting : balance at time DONNA, otherwise MODA. Pt has trouble motor planning his movements and needing lots of vc and physical cues for overall safety. M8 OT- IP Objective Assessments Start: 03/29/18 15:31 Freq: Status: Active Protocol: Document 03/30/18 14:30 [facility] (Rec: 03/30/18 14:46 [facility] [id number]) OT Gross Range of Motion Upper Extremity Range of Motion Assessment Bilaterally Impaired OT Strength Upper Extremity Strength Assessment Bilaterally Impaired M9 OT- IP Assessment and Plan Start: 03/29/18 15:31 Freq: Status: Active Protocol: Document 04/02/18 12:39 [facility] (Rec: 04/02/18 12:55 [facility] [id number]) OT Summary Assessment and Plan Potential Rehabilitation Potential Fair Analytic Complexity at Evaluation Low Summary OT Impairments Strength Balance Coordination Functional Cognition Functional Mobility Self-Feeding Grooming Dressing Toileting Bathing Toilet Transfers Shower Transfers Progress Towards Goals Slow Progress due to Medical Issues Slow Progress due to Activity Tolerance Slow Progress due to Cognition Assessment Summary Pt doing better with BUE mobility and ability to assist for ADl needs, however still needing extensive assist for bed mobility and functional mobility and therefore will benefit from skilled rehab. Pt looking to go to [facility] tomorrow. Goals Self-Feeding Goal Independent Grooming Goal Independent Dressing Goal Moderate Assistance Toileting Goal Moderate Assistance Bathing Goal Moderate Assistance Toilet Transfer Goal Moderate Assistance Shower Transfer Goal Moderate Assistance Days to Meet Goals 10 Frequency of Treatment Frequency Of Treatment Once a Day Treatment Plan OT Treatment Plan ADL Training Functional Cognition Training Functional Mobility Patient/Family Education Discharge Planning Other Treatment Recommendations and Next Pt able do all self-feeding Treatment Focus and set-up 100%. Discharge Recommendations OT Discharge Recommendations SNF Rehab Home Equipment Needs Defer to SNF
--- NOTE | 2018-04-02 12:55 | PT.IPTN ---
Current Diagnoses Anemia in chronic kidney disease (03/22/18) Anemia, unspecified (03/22/18) Elevated white blood cell count, unspecified (03/22/18) Type 2 diabetes mellitus without complications (03/22/18) Morbid (severe) obesity due to excess calories (03/22/18) Dehydration (03/22/18) Volume depletion, unspecified (03/22/18) Hypokalemia (03/22/18) Alcohol dependence, uncomplicated (03/22/18) Other chronic pain (03/22/18) Metabolic encephalopathy (03/22/18) Essential (primary) hypertension (03/22/18) Pneumonia, unspecified organism (03/22/18) Constipation, unspecified (03/22/18) Chronic kidney disease, stage 4 (severe) (03/22/18) Chronic kidney disease, unspecified (03/22/18) Diarrhea, unspecified (03/22/18) Weakness (03/22/18) Physical Therapy Treatment Note M2 PT-IP Current Condition Start: 03/29/18 16:26 Freq: NEEDED Status: Active Protocol: Document 03/29/18 14:30 [facility] (Rec: 03/29/18 16:46 [facility] [id number]) Physical Therapy Current Condition Current Condition Evaluation Date 03/29/18 Treatment Diagnosis dehydration; alcohol withdrawal; PNA; weakness Onset Date 03/22/18 Precautions Other Precautions falls M3 PT-IP Subjective Start: 03/29/18 16:26 Freq: NEEDED Status: Active Protocol: Document 04/02/18 11:30 [facility] (Rec: 04/02/18 12:55 [facility] [id number]) Subjective Physical Therapy Visit Type Type Treatment Note Visit Start Time 11:30 Visit Stop Time 12:00 Total Visit Minutes 30 Notes Co-treatment with OT Number of FOREIGN COLLECTION CLERK Visits 0 Physical Therapy Visit Comments Patient Comments Pt reports he is feeling better today. M4 PT-IP Mobility and Gait Start: 03/29/18 16:26 Freq: NEEDED Status: Active Protocol: Document 04/02/18 11:30 [facility] (Rec: 04/02/18 12:55 [facility] [id number]) PT-Bed Mobility Assessment Supine to Sit Supine to Sit Moderate Assistance 2 Person Assistance Bedrails Scooting Scooting to Edge of Bed Moderate Assistance PT-Transfer Assessment Sit to and From Stand Sit to and from Stand Maximum Assistance 2 Person Assistance Use of Upper Extremities Equipment Transfer Assistive Device Gait Belt Front Wheeled Walker Transfers Transfer Destination Chair Transfer Technique Stand Step Pivot Transfer Ability Level of Assist Maximum Assistance 2 Person Assistance Use of Upper Extremities Comments Mobility Comments Pt was able to perform long sit from supine independently today. He then requires UE assistance to pull him self from longsit to EOB. Pt cont demonstrates significant retropulsion occasionally. He was somewhat impulsive as well that he tried to sit without support which creates fall risks. Pt stood up from EOB with max A x 2 with FWW. Pt requires max cues to facilitate upright position but pt states he has fear of falling and L knee weakness which causes him to lean forward. Pt was then transferred back to bedside chair with JOINER HELPER help. Gait Assessment Gait Gait Assistance Required: Maximum Assistance 2 Person Assist Distance (Feet) 3 Assistive Devices Assistive Device Gait Belt Front Wheeled Walker Gait Deviations General Gait Pattern Antalgic Decreased Stride Length Decreased Feet Clearance Flexed Trunk Step-to Gait Comments Gait Comments Pt amb from EOB towards the room door with max A x 2. Pt presents significant retropulsion with trunk forward lean and hyperextened B knees possbily due to fear of falling and B LE weakness. pt requires max cues to facilitate hip hinge. PT-Balance Assessment Sitting Balance and Reactions Static Sitting Balance Ability Poor Dynamic Sitting Balance Ability Poor Standing Balance and Reactions Static Standing Balance Ability Poor Dynamic Standing Balance Ability Poor M5 PT-IP Objective Assessments Start: 03/29/18 16:26 Freq: NEEDED Status: Active Protocol: Document 03/31/18 11:25 [facility] (Rec: 03/31/18 12:23 [facility] [id number]) Orientation Orientation/Cognition Level of Alertness Confusional State M6 PT-IP Treatment Start: 03/29/18 16:26 Freq: NEEDED Status: Active Protocol: Document 03/30/18 11:04 [facility] (Rec: 03/30/18 12:24 AB [id number]) Physical Therapy Treatment Education Education Provided Safety M7 PT-IP Assessment and Plan Start: 03/29/18 16:26 Freq: NEEDED Status: Active Protocol: Document 04/02/18 11:30 [facility] (Rec: 04/02/18 12:55 [facility] [id number]) PT Summary Assessment and Plan Summary Assessment Summary Pt presents improvements in overall mobility but cont demonstrates poor overall balance with significant retropulsion. Pt is not safe to d/c home at this point due to immobility and high fall risks. Recommend to d/c SNF for cont rehab. Goals Bed Mobility Goal Contact Guard Assistance Transfer Goal Moderate Assistance Front Wheeled Walker Gait Goal Moderate Assistance Front Wheel Walker Gait Distance 50 Days to Meet Goals 10 Frequency of Treatment Frequency Of Treatment Once a Day Treatment Plan Other Recommendations and Next Treatment cont to advance sit<->stand, Focus gait training as filemon, manual transfers Recommendations To Nursing Amount of Assist Needed 3 or More Person Assist Power Sit-Stand Discharge Recommendations PT Discharge Recommendations SNF Rehab
--- NOTE | 2018-04-02 15:52 | CM.DANOTE ---
DCP/continued: Received notification from this AM that patient will be medically stable for discharge today/tomorrow. Notified Dr. Mcgregor that [facility] and [facility] have both turned patient down. [facility] reviewing. Spoke with Chip at [facility] and he reports that they can accept tomorrow 04-03-18. Placed call to patient's DPOA with update. She is aware and agreeable. Daughter unclear or unsure where family is with [facility] process therefore, FURNACE REPAIRER put in expedited referral indicating that patient would be at [facility] after 04-03-18. Dr. Quintana rounding tomorrow. P: [facility] when medically stable. Anticipate discharge for tomorrow. NOELLE Funes
[2018-04-02] MEDS: MELATONIN 3 MG TABLET 6 MG PO (20:19)
[2018-04-02] MEDS: QUETIAPINE 25 MG TABLET PO (20:20)
[2018-04-03 04:55] LABS: Add Manual Diff / Slide Review YES; Hematocrit 25.5 % (41-53); Hemoglobin 8.3 g/dL (13.5-17.5); Mean Corpuscular HGB Conc 32.7 % (30-36); Mean Corpuscular Hemoglobin 34.6 PG (26-34); Mean Corpuscular Volume 105.8 fL (80-100); Platelet Count 312 X10^3/uL (150-400); Red Blood Cell Count 2.41 X10^6/uL (4.5-5.9); Red Cell Distribution Width 13.1 % (11.6-14.8); White Blood Cell Count 13.5 X10^3/uL (4.5-11.0)
[2018-04-03 05:05] LABS: Alanine Aminotransferase 37 IU/L (21-72); Albumin 3.1 g/dL (3.5-5.0); Albumin Globulin Ratio 1.1 (1.0-2.8); Alkaline Phosphatase 58 U/L (38-126); Aspartate Aminotransferase 24 IU/L (17-59); BUN Creatinine Ratio 18.4 (6-22); Bilirubin Total 0.3 mg/dL (0.2-1.3); Blood Urea Nitrogen 46 mg/dL (9-20); Calcium 8.1 mg/dL (8.4-10.2); Carbon Dioxide 26 mmol/L (22-32); Chloride 99 mmol/L (98-107); Globulin 2.8 g/dL (1.7-4.1); Glucose 178 mg/dL (80-110); HEMOLYSIS < 15 (0-50); Sodium 135 mmol/L (137-145); Total Protein 5.9 g/dL (6.3-8.2)
[2018-04-03 05:07] VITALS: BP 153/83; PULSE 65; RESP 16; TEMP 36.6; O2SAT 97
[2018-04-03 05:48] LABS: Neutrophils Absolute Manual 10530 /uL (3000-5900); RBC Morphology Normal Morphology; Total Cells Counted 100
--- NOTE | 2018-04-03 06:14 | PC.NURSE ---
Patient has been intermittently confused, wakes disoriented, thought he was in [place] needing to get up to got to breakfast with a friend Reorients to place. Denies pain. VSS. Incontinent x2, bladder scanned in am to monitor for retention, showed 15ml, he denies discomfort or urge to void.
[2018-04-03 08:15] VITALS: BP 166/60; PULSE 57; RESP 14; TEMP 36.7; O2SAT 98
[2018-04-03 08:25] VITALS: O2SAT 98
--- NOTE | 2018-04-03 09:18 | OT.IP.TRT ---
Current Diagnoses Anemia in chronic kidney disease (03/22/18) Anemia, unspecified (03/22/18) Elevated white blood cell count, unspecified (03/22/18) Type 2 diabetes mellitus without complications (03/22/18) Morbid (severe) obesity due to excess calories (03/22/18) Dehydration (03/22/18) Volume depletion, unspecified (03/22/18) Hypokalemia (03/22/18) Alcohol dependence, uncomplicated (03/22/18) Other chronic pain (03/22/18) Metabolic encephalopathy (03/22/18) Essential (primary) hypertension (03/22/18) Pneumonia, unspecified organism (03/22/18) Constipation, unspecified (03/22/18) Chronic kidney disease, stage 4 (severe) (03/22/18) Chronic kidney disease, unspecified (03/22/18) Diarrhea, unspecified (03/22/18) Weakness (03/22/18) Occupational Therapy Treatment Note M2 OT-IP Current Condition Start: 03/29/18 15:31 Freq: Status: Active Protocol: Document 03/30/18 14:30 [facility] (Rec: 03/30/18 14:46 [facility] [id number]) Occupational Therapy Current Condition Current Condition Evaluation Date 03/30/18 Treatment Diagnosis ETOH withdrawl, PNA ,weakness M3 OT- IP Subjective and Pain Start: 03/29/18 15:31 Freq: Status: Active Protocol: Document 04/03/18 09:09 [facility] (Rec: 04/03/18 09:18 [facility] [id number]) OT- Subjective Occupational Therapy Visit Type Type Treatment Note Visit Start Time 08:17 Visit Stop Time 08:42 Total Visit Minutes 25 Occupational Therapy Visit Comments Patient Comments Pt sitting at edge of bed with nursing staff. Pt agreeable to try to stand with OT/PT. OT Pain Assessment Pain When Pain Assessed At Rest Pain Present Pain Present Denied Pain M4 OT- IP ADL's Start: 03/29/18 15:31 Freq: Status: Active Protocol: Document 04/02/18 12:39 [facility] (Rec: 04/02/18 12:55 [facility] [id number]) OT [id number] Comments OT Self-Feeding Comments Nursing states today, pt able to self feed himself after initial set-up. Pt return of AROM for BUE in all movements. OT ADL-Grooming General Evaluation Grooming Ability Standby Assistance Areas Needing Assistance Retrieving/Set-up of Grooming Items Comments OT Grooming Comments Set-up needed otherwise pt able to do all grooming needs while sitting in the recliner. OT ADL-Dressing General Eval Lower Body Dressing Ability Maximum Assistance Areas Needing Assistance Underpants/Brief Socks Comments OT Dressing Comments Pt needing 2 person assist to stand with FWW and another to help pull up brief over his hips. Dependent for socks at this time. M6 OT- IP Functional Cognition Start: 03/29/18 15:31 Freq: Status: Active Protocol: Document 04/03/18 09:09 [facility] (Rec: 04/03/18 09:18 [facility] [id number]) Cognitive Factors Limiting Selfcare Function Cognitive Ability Level of Alertness Alert Patient Orientation Name Attention Span Ability Capable of Focused Attention Ability to Follow Commands Able to Follow One Step Commands with Increased Time Able to Follow One Step Commands with Repetition Memory Description Short Term Impaired Safety Awareness Underestimates Need for Assistance Cognitive Comments Cognitive Assessment Comments Pt needing repetitive commands . Pt also needing step by step instructions. M7 OT- IP Mobility and Balance Start: 03/29/18 15:31 Freq: Status: Active Protocol: Document 04/03/18 09:09 [facility] (Rec: 04/03/18 09:18 [facility] [id number]) OT-Transfer Assessment Sit to and From Stand Sit to and from Stand Maximum Assistance 2 Person Assistance Technique Transfer Destination Chair Transfer Technique Mechanical Lift Comments Mobility Comments Pt attempting to stand with FWW MAX A X 2 and not able to tolerate to be able to transfer at this time. Therefore mechanical lift used . OT- Balance Assessment Sitting Balance and Reactions Static Sitting Balance Ability Poor Dynamic Sitting Balance Ability Poor Standing Balance and Reactions Static Standing Balance Ability Poor Dynamic Standing Balance Ability Poor Comments Other Balance Tests/Deviations/Treatment Pt has poor sitting balance : and today tends to lean backwards and to the right. Pt at this time would not be able to tolerate to be able to sit in a wc for transport, there recommend non urgent BLS at this time due to poor sitting balance. M8 OT- IP Objective Assessments Start: 03/29/18 15:31 Freq: Status: Active Protocol: Document 03/30/18 14:30 [facility] (Rec: 03/30/18 14:46 [facility] [id number]) OT Gross Range of Motion Upper Extremity Range of Motion Assessment Bilaterally Impaired OT Strength Upper Extremity Strength Assessment Bilaterally Impaired M9 OT- IP Assessment and Plan Start: 03/29/18 15:31 Freq: Status: Active Protocol: Document 04/03/18 09:09 [facility] (Rec: 04/03/18 09:18 [facility] [id number]) OT Summary Assessment and Plan Potential Rehabilitation Potential Fair Analytic Complexity at Evaluation Low Summary OT Impairments Strength Balance Coordination Functional Cognition Functional Mobility Self-Feeding Grooming Dressing Toileting Bathing Toilet Transfers Shower Transfers Progress Towards Goals Slow Progress due to Medical Issues Slow Progress due to Activity Tolerance Slow Progress due to Cognition Assessment Summary Pt going to skilled rehab today. Discharge Recommendations OT Discharge Recommendations SNF Rehab Home Equipment Needs Defer to SNF
[2018-04-03] MEDS: PANTOPRAZOLE 40 MG TABLET PO (09:25)
[2018-04-03] MEDS: CITALOPRAM 20 MG TABLET 40 MG PO (09:25)
[2018-04-03] MEDS: GABAPENTIN 100 MG CAPSULE PO (09:25)
[2018-04-03] MEDS: ALLOPURINOL 100 MG TABLET 200 MG PO (09:26)
[2018-04-03] MEDS: ENOXAPARIN 30 MG/0.3 ML SYRINGE SUBCUT (09:26)
[2018-04-03] MEDS: LISINOPRIL 10 MG TABLET PO (09:26)
[2018-04-03] MEDS: FUROSEMIDE 40 MG TABLET PO (09:26)
[2018-04-03] MEDS: METOPROLOL IR 25 MG TABLET PO (09:27)
[2018-04-03] MEDS: NYSTATIN SUSP 500,000 UNIT/5 ML UDC 500000 UNIT PO ×2 (09:27→13:45)
[2018-04-03] MEDS: GLIMEPIRIDE 2 MG TABLET 1 MG PO (09:27)
[2018-04-03] MEDS: INSULIN ASPART 100 UNIT/ML INSULN PEN SUBCUT ×2 (09:28→11:57)
[2018-04-03] MEDS: HYDROCODONE/ACET 10/325 TABLET 1 TAB PO ×2 (09:29→13:47)
--- NOTE | 2018-04-03 11:29 | PT.IPTN ---
Current Diagnoses Anemia in chronic kidney disease (03/22/18) Anemia, unspecified (03/22/18) Elevated white blood cell count, unspecified (03/22/18) Type 2 diabetes mellitus without complications (03/22/18) Morbid (severe) obesity due to excess calories (03/22/18) Dehydration (03/22/18) Volume depletion, unspecified (03/22/18) Hypokalemia (03/22/18) Alcohol dependence, uncomplicated (03/22/18) Other chronic pain (03/22/18) Metabolic encephalopathy (03/22/18) Essential (primary) hypertension (03/22/18) Pneumonia, unspecified organism (03/22/18) Constipation, unspecified (03/22/18) Chronic kidney disease, stage 4 (severe) (03/22/18) Chronic kidney disease, unspecified (03/22/18) Diarrhea, unspecified (03/22/18) Weakness (03/22/18) Physical Therapy Treatment Note M2 PT-IP Current Condition Start: 03/29/18 16:26 Freq: NEEDED Status: Active Protocol: Document 03/29/18 14:30 [facility] (Rec: 03/29/18 16:46 AB [id number]) Physical Therapy Current Condition Current Condition Evaluation Date 03/29/18 Treatment Diagnosis dehydration; alcohol withdrawal; PNA; weakness Onset Date 03/22/18 Precautions Other Precautions falls M3 PT-IP Subjective Start: 03/29/18 16:26 Freq: NEEDED Status: Active Protocol: Document 04/03/18 08:20 [facility] (Rec: 04/03/18 11:29 [facility] [id number]) Subjective Physical Therapy Visit Type Type Treatment Note Visit Start Time 08:20 Visit Stop Time 08:45 Total Visit Minutes 25 Notes Co-treatment with OT Number of CLINICAL ACCOUNT MANAGER Visits 1 Physical Therapy Visit Comments Patient Comments Pt willing to transfer to chair. M4 PT-IP Mobility and Gait Start: 03/29/18 16:26 Freq: NEEDED Status: Active Protocol: Document 04/03/18 08:20 [facility] (Rec: 04/03/18 11:29 [facility] [id number]) PT-Bed Mobility Assessment Scooting Scooting to Edge of Bed Moderate Assistance PT-Transfer Assessment Sit to and From Stand Sit to and from Stand Maximum Assistance 2 Person Assistance Use of Upper Extremities Equipment Transfer Assistive Device Gait Belt Front Wheeled Walker Transfers Transfer Destination Chair Transfer Technique sit to stand machine Transfer Ability Level of Assist Maximum Assistance 2 Person Assistance Use of Upper Extremities Comments Mobility Comments Pt able to stand once for brief assist. Pt unable to remain standing on second attempt and power sit-stand used for transfer. Gait Assessment Comments Gait Comments unable PT-Balance Assessment Comments Other Balance Tests/Deviations/Treatment Min/mod A sitting on EOB, : leaning to the L and posteriorly. M5 PT-IP Objective Assessments Start: 03/29/18 16:26 Freq: NEEDED Status: Active Protocol: Document 03/31/18 11:25 [facility] (Rec: 03/31/18 12:23 [facility] [id number]) Orientation Orientation/Cognition Level of Alertness Confusional State M6 PT-IP Treatment Start: 03/29/18 16:26 Freq: NEEDED Status: Active Protocol: Document 03/30/18 11:04 [facility] (Rec: 03/30/18 12:24 AB [id number]) Physical Therapy Treatment Education Education Provided Safety M7 PT-IP Assessment and Plan Start: 03/29/18 16:26 Freq: NEEDED Status: Active Protocol: Document 04/03/18 08:20 [facility] (Rec: 04/03/18 11:29 [facility] [id number]) PT Summary Assessment and Plan Summary Assessment Summary Pt at EOB with nursing upon arrival. Pt unable to stand longer than 30 seconds today and unable to ambulate. Pt required Max A x2 to stand for brief assist. Pt was transferred to chair with power sit-stand. Goals Bed Mobility Goal Contact Guard Assistance Transfer Goal Moderate Assistance Front Wheeled Walker Gait Goal Moderate Assistance Front Wheel Walker Gait Distance 50 Days to Meet Goals 10 Frequency of Treatment Frequency Of Treatment Once a Day Treatment Plan Other Recommendations and Next Treatment cont to advance sit<->stand, Focus gait training as filemon, manual transfers Recommendations To Nursing Amount of Assist Needed 3 or More Person Assist Power Sit-Stand Discharge Recommendations PT Discharge Recommendations SNF Rehab
[2018-04-03 12:00] VITALS: BP 108/48; PULSE 56; RESP 16; TEMP 36.9; O2SAT 94
--- NOTE | 2018-04-03 13:21 | PM.DS.1 ---
History of Present Illness Chief complaint: Confusion Discharge Providers Date of admission: 03/22/18 17:15 Primary care physician: Jim Quintana MD Consults: 03/29/18 13:04 Consult to Occupational Therapy Evaluate & Treat Comment: Physician Instructions: Evaluate and treat Consult to Physical Therapy Evaluate & Treat Comment: Physician Instructions: Evaluate and Treat 03/30/18 12:41 Consult to Program Writer Routine Comment: Likely SNF Discharge provider: Jim Quintana MD Discharge Date: 04/03/18 Summary Discharge Diagnosis: Resolved confusion secondary to alcohol and pain medication use and subsequent withdrawal Hospital Course: Patient presented with confusion and disorientation agitation B evaluation over the 1st day or 2 but did not look like primary neurologic event or cardiac event seems most consistent with alcohol overuse and opiate overuse with subsequent withdrawal from both. Was treated with a very high dose withdrawal protocol and gradually over the last few days has become less and less confused is back to his normal baseline is well aware of the process is going on and is set up to go to nursing rehabilitation try to get strength back. Will have subsequent alcohol treatment program. Cognitive function at Status at Discharge Cognitive/behavioral status at discharge: Cognitive function at baseline Functional status at discharge: uses cane/walker Time Spent with Patient Greater than 30 minutes Exam Vital Signs (past 8 hours): - 04/03/18 08:15 04/03/18 08:25 04/03/18 12:00 Temperature 98.0 F 98.4 F Pulse Rate 57 L 56 L Respiratory Rate 14 16 Blood Pressure 166/60 H 108/48 L Pulse Oximetry 98 98 94 Oxygen Delivery Method Room Air Oxygen Flow Rate 0 Narrative Exam Narrative: Patient is alert oriented speaking clearly having a normal conversation with other providers. PERRLA EOMs intact speech clear Lungs clear to auscultation and percussion. CV is shows regular rate and rhythm without murmur S3 does have will be 1 to 2+ edema. Abdomen obese nontender no hepatosplenomegaly. Neuro shows deficit in lower extremities in terms of sensation and strength and motor control secondary to neck fracture in past. That combined with his recent hospitalization leads him to need probably at least several weeks of longterm care with the rehabilitation. Psych patient admits to some depression issues will continue with his antidepressant he will and has been okayed to get a psych consult while at longterm and will have that as a follow-up after he leaves longterm care and also have a drug and alcohol treatment after he leaves longterm care Objective Labs Result Diagrams: 04/03/18 04:39 04/03/18 04:39 Labs: Laboratory Results - last 24 hr 04/03/18 04/03/18 04:39 04:39 WBC 13.5 H RBC 2.41 L Hgb 8.3 L Hct 25.5 L MCV 105.8 H MCH 34.6 H MCHC 32.7 RDW 13.1 Plt Count 312 Neut % (Auto) Not Reportable Lymph % (Auto) Not Reportable [place] % (Auto) Not Reportable Eos % (Auto) Not Reportable Baso % (Auto) Not Reportable Lymph # (Auto) Not Reportable [place] # (Auto) Not Reportable Baso # (Auto) Not Reportable Total Counted 100 Seg Neutrophils % 74.0 H Band Neutrophils % 4.0 Lymphocytes % (Manual) 11.0 L Monocytes % (Manual) 7.0 Eosinophils % (Manual) 4.0 Neutrophils # (Manual) 52947 H RBC Morphology Normal morphology Sodium 135 L Potassium 4.0 Chloride 99 Carbon Dioxide 26 BUN 46 H Creatinine 2.50 H Estimated GFR 26.0 L BUN/Creatinine Ratio 18.4 Glucose 178 H Calcium 8.1 L Total Bilirubin 0.3 AST 24 ALT 37 Alkaline Phosphatase 58 Total Protein 5.9 L Albumin 3.1 L Globulin 2.8 Albumin/Globulin Ratio 1.1 Discharge Plan Discharge Plan Patient Disposition: SNF Transfer to: [facility] Transportation: Ambulance Labs: CMP in 1 week and with a CBC and repeat both 1 week following that Consult as needed: Mental health and Podiatry I certify the postop hospital longterm care is medically necessary on a continuing basis for any conditions for which he/ she received care during this hospitalization.: Yes The receiving facility has agreed to accept transfer and provide medical treatment.: Yes Discharge Med Rec/Prescriptions Prescriptions: Continue allopurinol 100 mg tablet 200 mg PO QAM RF: 0 furosemide 80 mg tablet 160 mg PO DAILY RF: 0 pantoprazole 40 mg tablet,delayed release (DR/EC) 1 tab PO DAILY RF: 0 citalopram 20 MG tablet 40 mg PO DAILY RF: 0 glimepiride 1 mg tablet 1 mg PO DAILY RF: 0 Discontinued hydrocodone-acetaminophen 10-325 mg tablet 1 - 2 tab PO Q4-6H MDD 8 PRN (Reason: neck and chronic pain) RF: 0 Follow up/Referrals: Jim Quintana MD [Primary Care Provider] - Discharge Health Status Brief summary of current health status: Patient weak and persistent 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 Also significant alcohol and pain med abuse with dependency issues and withdrawal triggering a metabolic encephalopathy. Multidrug resistant organism: No MDRO MDRO Verified by culture: Yes Provider Discharge Instructions Diet: Diet as Tolerated Liquid consistency: Normal/Thin Food texture: Regular Discharge Data Primary Care Provider: Jim Quintana Attending Provider: Tyree Mcgregor Admit Date/Time: 03/22/18 17:15 Quality VTE Deep Vein Thrombosis/Pulmonary Embolism Present on Admission: No
--- NOTE | 2018-04-03 13:27 | P.DS_ITS ---
History of Present Illness Chief complaint: Confusion Discharge Providers Date of admission: 03/22/18 17:15 Primary care physician: Jim Quintana MD Consults: 03/29/18 13:04 Consult to Occupational Therapy Evaluate & Treat Comment: Physician Instructions: Evaluate and treat Consult to Physical Therapy Evaluate & Treat Comment: Physician Instructions: Evaluate and Treat 03/30/18 12:41 Consult to Night Shift Supervisor Routine Comment: Likely SNF Discharge provider: Jim Quintana MD Discharge Date: 04/03/18 Summary Discharge Diagnosis: Resolved confusion secondary to alcohol and pain medication use and subsequent withdrawal Hospital Course: Patient presented with confusion and disorientation agitation B evaluation over the 1st day or 2 but did not look like primary neurologic event or cardiac event seems most consistent with alcohol overuse and opiate overuse with subsequent withdrawal from both. Was treated with a very high dose withdrawal protocol and gradually over the last few days has become less and less confused is back to his normal baseline is well aware of the process is going on and is set up to go to nursing rehabilitation try to get strength back. Will have subsequent alcohol treatment program. Cognitive function at Status at Discharge Cognitive/behavioral status at discharge: Cognitive function at baseline Functional status at discharge: uses cane/walker Time Spent with Patient Greater than 30 minutes Exam Vital Signs (past 8 hours): - 04/03/18 08:15 04/03/18 08:25 04/03/18 12:00 Temperature 98.0 F 98.4 F Pulse Rate 57 L 56 L Respiratory Rate 14 16 Blood Pressure 166/60 H 108/48 L Pulse Oximetry 98 98 94 Oxygen Delivery Method Room Air Oxygen Flow Rate 0 Narrative Exam Narrative: Patient is alert oriented speaking clearly having a normal conversation with other providers. PERRLA EOMs intact speech clear Lungs clear to auscultation and percussion. CV is shows regular rate and rhythm without murmur S3 does have will be 1 to 2+ edema. Abdomen obese nontender no hepatosplenomegaly. Neuro shows deficit in lower extremities in terms of sensation and strength and motor control secondary to neck fracture in past. That combined with his recent hospitalization leads him to need probably at least several weeks of residential care with the rehabilitation. Psych patient admits to some depression issues will continue with his antidepressant he will and has been okayed to get a psych consult while at residential and will have that as a follow-up after he leaves residential care and also have a drug and alcohol treatment after he leaves residential care Objective Labs Result Diagrams: 04/03/18 04:39 04/03/18 04:39 Labs: Laboratory Results - last 24 hr 04/03/18 04/03/18 04:39 04:39 WBC 13.5 H RBC 2.41 L Hgb 8.3 L Hct 25.5 L MCV 105.8 H MCH 34.6 H MCHC 32.7 RDW 13.1 Plt Count 312 Neut % (Auto) Not Reportable Lymph % (Auto) Not Reportable [place] % (Auto) Not Reportable Eos % (Auto) Not Reportable Baso % (Auto) Not Reportable Lymph # (Auto) Not Reportable [place] # (Auto) Not Reportable Baso # (Auto) Not Reportable Total Counted 100 Seg Neutrophils % 74.0 H Band Neutrophils % 4.0 Lymphocytes % (Manual) 11.0 L Monocytes % (Manual) 7.0 Eosinophils % (Manual) 4.0 Neutrophils # (Manual) 25776 H RBC Morphology Normal morphology Sodium 135 L Potassium 4.0 Chloride 99 Carbon Dioxide 26 BUN 46 H Creatinine 2.50 H Estimated GFR 26.0 L BUN/Creatinine Ratio 18.4 Glucose 178 H Calcium 8.1 L Total Bilirubin 0.3 AST 24 ALT 37 Alkaline Phosphatase 58 Total Protein 5.9 L Albumin 3.1 L Globulin 2.8 Albumin/Globulin Ratio 1.1 Discharge Plan Discharge Plan Patient Disposition: SNF [facility] Transportation: Ambulance Labs: CMP in 1 week and with a CBC and repeat both 1 week following that Consult as needed: Mental health and Podiatry I certify the postop hospital residential care is medically necessary on a continuing basis for any conditions for which he/ she received care during this hospitalization.: Yes The receiving facility has agreed to accept transfer and provide medical treatment.: Yes Discharge Med Rec/Prescriptions Prescriptions: Continue allopurinol 100 mg tablet 200 mg PO QAM RF: 0 furosemide 80 mg tablet 160 mg PO DAILY RF: 0 pantoprazole 40 mg tablet,delayed release (DR/EC) 1 tab PO DAILY RF: 0 citalopram 20 MG tablet 40 mg PO DAILY RF: 0 glimepiride 1 mg tablet 1 mg PO DAILY RF: 0 Discontinued hydrocodone-acetaminophen 10-325 mg tablet 1 - 2 tab PO Q4-6H MDD 8 PRN (Reason: neck and chronic pain) RF: 0 Follow up/Referrals: Jim Quintana MD [Primary Care Provider] - Discharge Health Status Brief summary of current health status: Patient weak and persistent 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 Also significant alcohol and pain med abuse with dependency issues and withdrawal triggering a metabolic encephalopathy. Multidrug resistant organism: No MDRO MDRO Verified by culture: Yes Provider Discharge Instructions Diet: Diet as Tolerated Liquid consistency: Normal/Thin Food texture: Regular Discharge Data Primary Care Provider: Jim Quintana Attending Provider: Tyree Mcgregor Admit Date/Time: 03/22/18 17:15 Quality VTE Deep Vein Thrombosis/Pulmonary Embolism Present on Admission: No
--- NOTE | 2018-04-03 14:25 | PC.NURSE ---
Discharge Note Discharged to [facility] via ambulance at 1400. Information packet with patient. All belongings with patient including upper and lower partials, cell phone, facility supervisor, necklace, and clothing. Report given to Chip MCDONALD and all questions answered.
--- NOTE | 2018-04-03 15:22 | CM.DPC ---
DCP/continued: Reviewed chart. Orders obtained for patient to discharge to SNF today. Spoke with Chip at [facility] and they have accepted. Spoke with therapy and non-urgent BLS recommended. Asked ALIVIA/Brittny to finalize discharge and set up transport via BLS to [facility] at 2:00pm today. Placed call to patient's daughter/ and she is aware and agreeable to plan. RN updated with above plan. P: [facility] today. NOELLE Funes
== END 2018-04-03 14:00 | DRG 896 ==
LOC: ED 17:15 → AC 17:16 → ICU 03-23 11:15
PROVIDERS: Family Medicine; Admitting Provider Family Medicine; Emergency Provider Emergency Medicine; Family Provider Family Medicine; PCP Family Medicine; Visit Provider Family Medicine
DX: F10.231 Alcohol dependence with withdrawal delirium (principal); J15.9 Unspecified bacterial pneumonia; G92 Toxic encephalopathy; E87.0 Hyperosmolality and hypernatremia; Y90.0 Blood alcohol level of less than 20 mg/100 ml; R19.7 Diarrhea, unspecified; E86.9 Volume depletion, unspecified; E66.01 Morbid (severe) obesity due to excess calories; Z68.37 Body mass index [BMI] 37.0-37.9, adult; E87.6 Hypokalemia; R06.81 Apnea, not elsewhere classified; E83.42 Hypomagnesemia; B37.9 Candidiasis, unspecified; D63.1 Anemia in chronic kidney disease; I12.9 Hypertensive chronic kidney disease with stage 1 through stage 4 chronic kidney disease, or unspecified chronic kidney disease; N18.3 Chronic kidney disease, stage 3 (moderate); T40.605A Adverse effect of unspecified narcotics, initial encounter; E11.9 Type 2 diabetes mellitus without complications; G89.29 Other chronic pain; F11.23 Opioid dependence with withdrawal
CPT/HCPCS: 36415; 36600; 70450; 71045; 80048; 80053; 80305; 80320; 80329; 81001; 82805; 82962; 83605; 83735; 83880; 84145; 84146; 84443; 84484; 85025; 85610; 85730; 87040; 87086; 87797; 93005; 93010; 94762; 96360; 96361; 97163; 97165; 97530; 97535; 99283; 99284; C9113; G0480; J0360; J0696; J1170; J1650; J1940; J2060; J2405; J3475; J3480; J7050

== ENCOUNTER → 2018-05-16 13:20 | Outpatient (CLI) | payer MEDICARE, SELFPAY | PROVIDERS: Family Provider Family Medicine; PCP Family Medicine; Visit Provider Family Medicine | DX: E11.621 Type 2 diabetes mellitus with foot ulcer (principal); L97.511 Non-pressure chronic ulcer of other part of right foot limited to breakdown of skin; I87.313 Chronic venous hypertension (idiopathic) with ulcer of bilateral lower extremity; L97.812 Non-pressure chronic ulcer of other part of right lower leg with fat layer exposed; L97.822 Non-pressure chronic ulcer of other part of left lower leg with fat layer exposed; I73.9 Peripheral vascular disease, unspecified; F10.10 Alcohol abuse, uncomplicated; G90.09 Other idiopathic peripheral autonomic neuropathy | CPT/HCPCS: 11042; 11045; 87070; 87077; 87147; 87186; 87205; 99214 ==

== ENCOUNTER 2018-05-19 20:20 | Emergency (ER) | payer MEDICARE, SELFPAY ==
[2018-05-19 20:25] VITALS: BP 132/62; PULSE 87; RESP 18; TEMP 36.9; O2SAT 96; BMI 38.0
--- NOTE | 2018-05-19 20:33 | ED.FALL ---
HPI - Fall General Chief Complaint: Extremity Problem,Nontraumatic Stated Complaint: glf, ETOH Time Seen by Provider: 05/19/18 20:21 Source: patient, EMS, RN notes reviewed and old records reviewed Mode of arrival: EMS Limitations: no limitations History of Present Illness HPI Narrative: Patient is a 67-year-old male who presents with 2 falls today. As he does walk but primarily gets around by wheelchair. He says he slipped out of his wheelchair today. He feels like it may be his new cushion causing him to fall. He has no pain. EMS is an out to his house twice today. He admits to drinking a quarter of a gal of alcohol today. He has chronic ongoing wounds in his lower legs. He is followed by wound care. He says that there have been weeping more over the last week and or erythematous. He denies any fever or chills. Related Data Home Medications Medication Instructions Recorded Confirmed allopurinol 200 mg PO QAM 12/25/17 03/22/18 citalopram 40 mg PO DAILY 12/25/17 03/22/18 furosemide 160 mg PO DAILY 12/25/17 03/22/18 pantoprazole 1 tab PO DAILY 12/25/17 03/22/18 glimepiride 1 mg PO DAILY 03/22/18 03/22/18 Previous Rx's Medication Instructions Recorded doxycycline hyclate 100 mg PO BID #20 cap 05/19/18 Allergies Allergy/AdvReac Type Severity Reaction Status Date / Time latex Allergy Mild IRRITATION Verified 03/22/18 14:53 Sulfa (Sulfonamide AdvReac Mild N&V 1HOUR Verified 03/22/18 14:53 Antibiotics) AFTER RX, THINKS IT IS RELATED Review of Systems Review of Systems ROS Unobtainable: All systems reviewed & are unremarkable except as noted in HPI and below Constitutional Denies chills, Denies fever(s), Reports frequent falls (x2 today out of wheelchair), Denies lethargy and Denies weakness Eyes Denies change in vision, Denies eye discharge, Denies irritation and Denies loss of vision Cardiovascular Denies chest pain, Denies irregular heart rhythm, Denies lightheadedness, Denies palpitations, Denies dyspnea, Denies dyspnea on exertion and Denies orthopnea Respiratory Denies cough, Denies dyspnea, Denies dyspnea on exertion and Denies wheezing Gastrointestinal Gastrointestinal: Denies abdominal pain, Denies change in bowel habits, Denies diarrhea, Denies nausea and Denies vomiting Musculoskeletal Denies back pain, Denies muscle weakness, Denies numbness and Denies tingling Integumentary/Breasts Reports as per HPI Comments: Chronic lower extremity wounds Neurologic Reports frequent falls (x2 today out of wheelchair), Denies loss of vision, Denies numbness, Denies tingling and Denies weakness Endocrine Denies palpitations Allergic/Immunologic Denies wheezing Exam Initial Vital Signs Initial Vital Signs: Vital Signs Temperature 98.4 F 05/19/18 20:25 Pulse Rate 87 05/19/18 20:25 Respiratory Rate 18 05/19/18 20:25 Blood Pressure 132/62 05/19/18 20:25 Pulse Oximetry 96 05/19/18 20:25 GENERAL: Overweight well-appearing male no acute distress HEENT: Head atraumatic,EOMI, pupils reactive CARDIOVASCULAR: Regular rate and rhythm without murmurs, rubs or gallops. RESPIRATORY: Breath sounds equal bilaterally, no wheezes rales or rhonchi. ABDOMEN: Soft, nontender. Normoactive bowel sounds all 4 quadrants. No guarding or rebound. EXTREMITIES: Normal range of motion, no clubbing or edema. Neurovascularly intact NEUROLOGICAL: Alert and oriented x4.Normal gait and speech. Cranial nerves II through XII grossly intact. SKIN: Lower extremities are erythematous scabbed over lesions warm to touch no gross drainage [facility] Medical History Anemia associated with chronic renal failure (Chronic) Symptomatic anemia (Chronic) GI bleed (Resolved) Diabetes type 2, controlled (Chronic) Alcoholism (Acute) Chronic kidney disease, stage 4 (severe) (Chronic) Depression (Chronic) Hypertension (Chronic) Hyperparathyroidism (Chronic) Chronic pain (Chronic) Duodenal ulcer (Acute) Left leg pain (Chronic) Gout, arthropathy (Chronic) History of cervical fracture (Resolved) Surgical History History of colectomy (Resolved) Social History household members: family, friend(s) and other Smoking Status: Former smoker Social History household members: family, friend(s) and other Smoking Status: Former smoker Course Orders Ordered: ED Orders 05/19/18 21:05 Blood Culture Stat Complete Blood Count AUTO DIFF Stat Comprehensive Metabolic Panel Stat Ethanol (ETOH) Stat Lactate (Lactic Acid) Stat Procalcitonin Stat 05/20/18 01:25 Lactate 4HR (Lactic Acid Rflx) Stat Sodium Chloride (Normal Saline 0.9%) 1,000 mls @ 200 mls/hr IV CONT DAVID Last Infusion: 05/20/18 01:30 Dose: 0 mls/hr Admin: 05/19/18 21:10 Dose: 200 mls/hr Discontinued Medications Doxycycline Hyclate (Vibramycin) 100 mg PO NOW ONE Stop: 05/19/18 23:32 Last Admin: 05/20/18 00:13 Dose: 100 mg Vital Signs - 8 hr 05/19/18 21:32 05/19/18 22:32 05/19/18 23:36 Pulse Rate 90 88 95 H Respiratory Rate 18 23 23 Blood Pressure [Right Arm] 138/64 155/119 H 164/83 H Pulse Oximetry 96 100 97 MDM - Fall Medical Records Attestation: I reviewed the patient's medical records. Lab Data Attestation: I reviewed the patient's lab results. Result diagrams: 05/19/18 21:05 05/19/18 21:05 Lab Results 05/19/18 05/19/18 05/19/18 Range/Units 21:05 21:05 21:05 WBC 10.6 (4.5-11.0) X10^3/uL RBC 3.47 L (4.5-5.9) X10^6/uL Hgb 11.7 L (13.5-17.5) g/dL Hct 35.6 L (41-53) % MCV 102.8 H (80-100) fL MCH 33.7 (26-34) PG MCHC 32.8 (30-36) % RDW 14.7 (11.6-14.8) % Plt Count 360 (150-400) X10^3/uL Neut % (Auto) 75.5 H (50-75) % Lymph % (Auto) 13.5 L (25-40) % [place] % (Auto) 8.3 (3-14) % Eos % (Auto) 1.6 L (2-4) % Baso % (Auto) 1.1 (0-2) % Neut # (Auto) 8000 H (3867-4382) /uL Lymph # (Auto) 1400 (8352-6755) /uL [place] # (Auto) 900 (0-900) /uL Eos # (Auto) 200 (0-450) /uL Baso # (Auto) 100 (0-100) /uL Sodium (137-145) mmol/L Potassium (3.4-5.1) mmol/L Chloride (98-107) mmol/L Carbon Dioxide (22-32) mmol/L BUN (9-20) mg/dL Creatinine (0.66-1.25) mg/dL Estimated GFR (>60) mL/min BUN/Creatinine Ratio (6-22) Glucose (80-110) mg/dL Lactate (0.7-2.1) mmol/L Calcium (8.4-10.2) mg/dL Total Bilirubin (0.2-1.3) mg/dL AST (17-59) IU/L ALT (21-72) IU/L Alkaline Phosphatase (38-126) U/L Total Protein (6.3-8.2) g/dL Albumin (3.5-5.0) g/dL Globulin (1.7-4.1) g/dL Albumin/Globulin Ratio (1.0-2.8) Procalcitonin 0.15 (<0.5) ng/mL Ethyl Alcohol 157 mg/dL 05/19/18 05/19/18 05/20/18 Range/Units 21:05 21:05 01:25 WBC (4.5-11.0) X10^3/uL RBC (4.5-5.9) X10^6/uL Hgb (13.5-17.5) g/dL Hct (41-53) % MCV (80-100) fL MCH (26-34) PG MCHC (30-36) % RDW (11.6-14.8) % Plt Count (150-400) X10^3/uL Neut % (Auto) (50-75) % Lymph % (Auto) (25-40) % [place] % (Auto) (3-14) % Eos % (Auto) (2-4) % Baso % (Auto) (0-2) % Neut # (Auto) (7760-8367) /uL Lymph # (Auto) (1819-7952) /uL [place] # (Auto) (0-900) /uL Eos # (Auto) (0-450) /uL Baso # (Auto) (0-100) /uL Sodium 139 (137-145) mmol/L Potassium 4.0 (3.4-5.1) mmol/L Chloride 98 (98-107) mmol/L Carbon Dioxide 28 (22-32) mmol/L BUN 31 H (9-20) mg/dL Creatinine 1.80 H (0.66-1.25) mg/dL Estimated GFR 37.9 L (>60) mL/min BUN/Creatinine Ratio 17.2 (6-22) Glucose 177 H (80-110) mg/dL Lactate 2.4 H 2.0 (0.7-2.1) mmol/L Calcium 8.4 (8.4-10.2) mg/dL Total Bilirubin 0.5 (0.2-1.3) mg/dL AST 17 (17-59) IU/L ALT 17 L (21-72) IU/L Alkaline Phosphatase 155 H (38-126) U/L Total Protein 7.2 (6.3-8.2) g/dL Albumin 3.9 (3.5-5.0) g/dL Globulin 3.3 (1.7-4.1) g/dL Albumin/Globulin Ratio 1.2 (1.0-2.8) Procalcitonin (<0.5) ng/mL Ethyl Alcohol mg/dL [facility] Narrative Medical decision making narrative: The patient has mildly elevated procalcitonin. I do feel like his legs are chronic he says they have been weeping over last 1 week. I do not appreciate significant weeping he does have some mild drainage. Area of the left leg has a pen chalino erythema does not extend beyond that it really does appear chronic. He does not appear septic repeat lactic acid has decreased. Will discharge patient home on oral antibiotics. Difficulty finding patient ride. Discharge Plan Departure Patient Disposition: Home Clinical Impression: Cellulitis Qualifiers: Site of cellulitis: extremity Site of cellulitis of extremity: lower extremity Laterality: unspecified laterality Qualified Code(s): L03.119 - Cellulitis of unspecified part of limb Instructions: DI for Cellulitis -- Adult Activity Restrictions/Additional Instructions: *You have been diagnosed with cellulitis bilateral lower extremities *What to do: Follow-up with wound care, think about changing the question of year wheelchair so you do not fall out. Decrease your alcohol intake *Continue to take medications as directed Doxycycline 100 mg twice a day for 10 days -> SENT TO [facility] IN [place] *Follow up with your primary care provider in 2-3 days *Return to ER if you should have increasing falls weakness increasing drainage or redness fever body or any new, worsening or concerning symptoms Prescriptions: New doxycycline hyclate 100 mg capsule 100 mg PO BID Qty: 20 RF: 0 No Action allopurinol 100 mg tablet 200 mg PO QAM RF: 0 furosemide 80 mg tablet 160 mg PO DAILY RF: 0 pantoprazole 40 mg tablet,delayed release (DR/EC) 1 tab PO DAILY RF: 0 citalopram 20 MG tablet 40 mg PO DAILY RF: 0 glimepiride 1 mg tablet 1 mg PO DAILY RF: 0 Referrals: Jim Quintana MD [Primary Care Provider] -
--- NOTE | 2018-05-19 20:36 | ED_ITS ---
HPI - Fall General Chief Complaint: Extremity Problem,Nontraumatic Stated Complaint: glf, ETOH Time Seen by Provider: 05/19/18 20:21 Source: patient, EMS, RN notes reviewed and old records reviewed Mode of arrival: EMS Limitations: no limitations History of Present Illness HPI Narrative: Patient is a 67-year-old male who presents with 2 falls today. As he does walk but primarily gets around by wheelchair. He says he slipped out of his wheelchair today. He feels like it may be his new cushion causing him to fall. He has no pain. EMS is an out to his house twice today. He admits to drinking a quarter of a gal of alcohol today. He has chronic ongoing wounds in his lower legs. He is followed by wound care. He says that there have been weeping more over the last week and or erythematous. He denies any fever or chills. Related Data Home Medications Medication Instructions Recorded Confirmed allopurinol 200 mg PO QAM 12/25/17 03/22/18 citalopram 40 mg PO DAILY 12/25/17 03/22/18 furosemide 160 mg PO DAILY 12/25/17 03/22/18 pantoprazole 1 tab PO DAILY 12/25/17 03/22/18 glimepiride 1 mg PO DAILY 03/22/18 03/22/18 Previous Rx's Medication Instructions Recorded doxycycline hyclate 100 mg PO BID #20 cap 05/19/18 Allergies Allergy/AdvReac Type Severity Reaction Status Date / Time latex Allergy Mild IRRITATION Verified 03/22/18 14:53 Sulfa (Sulfonamide AdvReac Mild N&V 1HOUR Verified 03/22/18 14:53 Antibiotics) AFTER RX, THINKS IT IS RELATED Review of Systems Review of Systems ROS Unobtainable: All systems reviewed & are unremarkable except as noted in HPI and below Constitutional Denies chills, Denies fever(s), Reports frequent falls (x2 today out of wheelchair), Denies lethargy and Denies weakness Eyes Denies change in vision, Denies eye discharge, Denies irritation and Denies loss of vision Cardiovascular Denies chest pain, Denies irregular heart rhythm, Denies lightheadedness, Denies palpitations, Denies dyspnea, Denies dyspnea on exertion and Denies orthopnea Respiratory Denies cough, Denies dyspnea, Denies dyspnea on exertion and Denies wheezing Gastrointestinal Gastrointestinal: Denies abdominal pain, Denies change in bowel habits, Denies diarrhea, Denies nausea and Denies vomiting Musculoskeletal Denies back pain, Denies muscle weakness, Denies numbness and Denies tingling Integumentary/Breasts Reports as per HPI Comments: Chronic lower extremity wounds Neurologic Reports frequent falls (x2 today out of wheelchair), Denies loss of vision, Denies numbness, Denies tingling and Denies weakness Endocrine Denies palpitations Allergic/Immunologic Denies wheezing Exam Initial Vital Signs Initial Vital Signs: Vital Signs Temperature 98.4 F 05/19/18 20:25 Pulse Rate 87 05/19/18 20:25 Respiratory Rate 18 05/19/18 20:25 Blood Pressure 132/62 05/19/18 20:25 Pulse Oximetry 96 05/19/18 20:25 GENERAL: Overweight well-appearing male no acute distress HEENT: Head atraumatic,EOMI, pupils reactive CARDIOVASCULAR: Regular rate and rhythm without murmurs, rubs or gallops. RESPIRATORY: Breath sounds equal bilaterally, no wheezes rales or rhonchi. ABDOMEN: Soft, nontender. Normoactive bowel sounds all 4 quadrants. No guarding or rebound. EXTREMITIES: Normal range of motion, no clubbing or edema. Neurovascularly intact NEUROLOGICAL: Alert and oriented x4.Normal gait and speech. Cranial nerves II through XII grossly intact. SKIN: Lower extremities are erythematous scabbed over lesions warm to touch no gross drainage [facility] Medical History Anemia associated with chronic renal failure (Chronic) Symptomatic anemia (Chronic) GI bleed (Resolved) Diabetes type 2, controlled (Chronic) Alcoholism (Acute) Chronic kidney disease, stage 4 (severe) (Chronic) Depression (Chronic) Hypertension (Chronic) Hyperparathyroidism (Chronic) Chronic pain (Chronic) Duodenal ulcer (Acute) Left leg pain (Chronic) Gout, arthropathy (Chronic) History of cervical fracture (Resolved) Surgical History History of colectomy (Resolved) Social History household members: family, friend(s) and other Smoking Status: Former smoker Social History household members: family, friend(s) and other Smoking Status: Former smoker Course Orders Ordered: ED Orders 05/19/18 21:05 Blood Culture Stat Complete Blood Count AUTO DIFF Stat Comprehensive Metabolic Panel Stat Ethanol (ETOH) Stat Lactate (Lactic Acid) Stat Procalcitonin Stat 05/20/18 01:25 Lactate 4HR (Lactic Acid Rflx) Stat Sodium Chloride (Normal Saline 0.9%) 1,000 mls @ 200 mls/hr IV CONT DAVID Last Infusion: 05/20/18 01:30 Dose: 0 mls/hr Admin: 05/19/18 21:10 Dose: 200 mls/hr Discontinued Medications Doxycycline Hyclate (Vibramycin) 100 mg PO NOW ONE Stop: 05/19/18 23:32 Last Admin: 05/20/18 00:13 Dose: 100 mg Vital Signs - 8 hr 05/19/18 21:32 05/19/18 22:32 05/19/18 23:36 Pulse Rate 90 88 95 H Respiratory Rate 18 23 23 Blood Pressure [Right Arm] 138/64 155/119 H 164/83 H Pulse Oximetry 96 100 97 MDM - Fall Medical Records Attestation: I reviewed the patient's medical records. Lab Data Attestation: I reviewed the patient's lab results. Result diagrams: 05/19/18 21:05 05/19/18 21:05 Lab Results 05/19/18 05/19/18 05/19/18 Range/Units 21:05 21:05 21:05 WBC 10.6 (4.5-11.0) X10^3/uL RBC 3.47 L (4.5-5.9) X10^6/uL Hgb 11.7 L (13.5-17.5) g/dL Hct 35.6 L (41-53) % MCV 102.8 H (80-100) fL MCH 33.7 (26-34) PG MCHC 32.8 (30-36) % RDW 14.7 (11.6-14.8) % Plt Count 360 (150-400) X10^3/uL Neut % (Auto) 75.5 H (50-75) % Lymph % (Auto) 13.5 L (25-40) % Shelby % (Auto) 8.3 (3-14) % Eos % (Auto) 1.6 L (2-4) % Baso % (Auto) 1.1 (0-2) % Neut # (Auto) 8000 H (5188-0275) /uL Lymph # (Auto) 1400 (7784-2854) /uL Shelby # (Auto) 900 (0-900) /uL Eos # (Auto) 200 (0-450) /uL Baso # (Auto) 100 (0-100) /uL Sodium (137-145) mmol/L Potassium (3.4-5.1) mmol/L Chloride (98-107) mmol/L Carbon Dioxide (22-32) mmol/L BUN (9-20) mg/dL Creatinine (0.66-1.25) mg/dL Estimated GFR (>60) mL/min BUN/Creatinine Ratio (6-22) Glucose (80-110) mg/dL Lactate (0.7-2.1) mmol/L Calcium (8.4-10.2) mg/dL Total Bilirubin (0.2-1.3) mg/dL AST (17-59) IU/L ALT (21-72) IU/L Alkaline Phosphatase (38-126) U/L Total Protein (6.3-8.2) g/dL Albumin (3.5-5.0) g/dL Globulin (1.7-4.1) g/dL Albumin/Globulin Ratio (1.0-2.8) Procalcitonin 0.15 (<0.5) ng/mL Ethyl Alcohol 157 mg/dL 05/19/18 05/19/18 05/20/18 Range/Units 21:05 21:05 01:25 WBC (4.5-11.0) X10^3/uL RBC (4.5-5.9) X10^6/uL Hgb (13.5-17.5) g/dL Hct (41-53) % MCV (80-100) fL MCH (26-34) PG MCHC (30-36) % RDW (11.6-14.8) % Plt Count (150-400) X10^3/uL Neut % (Auto) (50-75) % Lymph % (Auto) (25-40) % Shelby % (Auto) (3-14) % Eos % (Auto) (2-4) % Baso % (Auto) (0-2) % Neut # (Auto) (8293-6132) /uL Lymph # (Auto) (0986-7615) /uL Shelby # (Auto) (0-900) /uL Eos # (Auto) (0-450) /uL Baso # (Auto) (0-100) /uL Sodium 139 (137-145) mmol/L Potassium 4.0 (3.4-5.1) mmol/L Chloride 98 (98-107) mmol/L Carbon Dioxide 28 (22-32) mmol/L BUN 31 H (9-20) mg/dL Creatinine 1.80 H (0.66-1.25) mg/dL Estimated GFR 37.9 L (>60) mL/min BUN/Creatinine Ratio 17.2 (6-22) Glucose 177 H (80-110) mg/dL Lactate 2.4 H 2.0 (0.7-2.1) mmol/L Calcium 8.4 (8.4-10.2) mg/dL Total Bilirubin 0.5 (0.2-1.3) mg/dL AST 17 (17-59) IU/L ALT 17 L (21-72) IU/L Alkaline Phosphatase 155 H (38-126) U/L Total Protein 7.2 (6.3-8.2) g/dL Albumin 3.9 (3.5-5.0) g/dL Globulin 3.3 (1.7-4.1) g/dL Albumin/Globulin Ratio 1.2 (1.0-2.8) Procalcitonin (<0.5) ng/mL Ethyl Alcohol mg/dL [facility] Narrative Medical decision making narrative: The patient has mildly elevated procalcitonin. I do feel like his legs are chronic he says they have been weeping over last 1 week. I do not appreciate significant weeping he does have some mild drainage. Area of the left leg has a pen chalino erythema does not extend beyond that it really does appear chronic. He does not appear septic repeat lactic acid has decreased. Will discharge patient home on oral antibiotics. Difficulty finding patient ride. Discharge Plan Departure Patient Disposition: Home Clinical Impression: Cellulitis Qualifiers: Site of cellulitis: extremity Site of cellulitis of extremity: lower extremity Laterality: unspecified laterality Qualified Code(s): L03.119 - Cellulitis of unspecified part of limb Instructions: DI for Cellulitis -- Adult Activity Restrictions/Additional Instructions: *You have been diagnosed with cellulitis bilateral lower extremities *What to do: Follow-up with wound care, think about changing the question of year wheelchair so you do not fall out. Decrease your alcohol intake *Continue to take medications as directed Doxycycline 100 mg twice a day for 10 days -> SENT TO [facility] IN [place] *Follow up with your primary care provider in 2-3 days *Return to ER if you should have increasing falls weakness increasing drainage or redness fever body or any new, worsening or concerning symptoms Prescriptions: New doxycycline hyclate 100 mg capsule 100 mg PO BID Qty: 20 RF: 0 No Action allopurinol 100 mg tablet 200 mg PO QAM RF: 0 furosemide 80 mg tablet 160 mg PO DAILY RF: 0 pantoprazole 40 mg tablet,delayed release (DR/EC) 1 tab PO DAILY RF: 0 citalopram 20 MG tablet 40 mg PO DAILY RF: 0 glimepiride 1 mg tablet 1 mg PO DAILY RF: 0 Referrals: Jim Quintana MD [Primary Care Provider] -
[2018-05-19] MEDS: SODIUM CHLORIDE 0.9% 1,000 ML 200 ML IV (21:10)
[2018-05-19 21:18] LABS: Add Manual Diff / Slide Review NO; Basophils Absolute Auto 100 /uL (0-100); Basophils Percent Auto 1.1 % (0-2); Eosinophils Absolute Auto 200 /uL (0-450); Eosinophils Percent Auto 1.6 % (2-4); Hematocrit 35.6 % (41-53); Hemoglobin 11.7 g/dL (13.5-17.5); Lymphocytes Absolute Auto 1400 /uL (1100-4500); Lymphocytes Percent Auto 13.5 % (25-40); Mean Corpuscular HGB Conc 32.8 % (30-36); Mean Corpuscular Hemoglobin 33.7 PG (26-34); Mean Corpuscular Volume 102.8 fL (80-100); Monocytes Absolute Auto 900 /uL (0-900); Monocytes Percent Auto 8.3 % (3-14); Neutrophils Absolute Auto 8000 /uL (1500-7000); Neutrophils Percent Auto 75.5 % (50-75); Platelet Count 360 X10^3/uL (150-400); Red Blood Cell Count 3.47 X10^6/uL (4.5-5.9); Red Cell Distribution Width 14.7 % (11.6-14.8); White Blood Cell Count 10.6 X10^3/uL (4.5-11.0)
[2018-05-19 21:25] LABS: Lactate (Lactic Acid) 2.4 mmol/L (0.7-2.1)
[2018-05-19 21:29] LABS: Alanine Aminotransferase 17 IU/L (21-72); Albumin 3.9 g/dL (3.5-5.0); Albumin Globulin Ratio 1.2 (1.0-2.8); Alkaline Phosphatase 155 U/L (38-126); Aspartate Aminotransferase 17 IU/L (17-59); BUN Creatinine Ratio 17.2 (6-22); Bilirubin Total 0.5 mg/dL (0.2-1.3); Blood Urea Nitrogen 31 mg/dL (9-20); Calcium 8.4 mg/dL (8.4-10.2); Carbon Dioxide 28 mmol/L (22-32); Chloride 98 mmol/L (98-107); Estimated Glomerular Filt Rate 37.9 mL/min (>60); Globulin 3.3 g/dL (1.7-4.1); Glucose 177 mg/dL (80-110); HEMOLYSIS < 15 (0-50); Sodium 139 mmol/L (137-145); Total Protein 7.2 g/dL (6.3-8.2)
[2018-05-19 21:32] VITALS: BP 138/64; PULSE 90; RESP 18; O2SAT 96
[2018-05-19 21:36] LABS: Ethanol (ETOH) 157 mg/dL
[2018-05-19 21:44] LABS: Procalcitonin 0.15 ng/mL (<0.5)
[2018-05-19 22:32] VITALS: BP 155/119; PULSE 88; RESP 23; O2SAT 100
--- NOTE | 2018-05-19 23:24 | PC.NURSE ---
patients daughter called and given update per patient. patients daughter to call back to let us know if she can come get patient.
[2018-05-19 23:36] VITALS: BP 164/83; PULSE 95; RESP 23; O2SAT 97
[2018-05-20] VITALS: BP 168/63; PULSE 95; RESP 21; O2SAT 98
[2018-05-20] MEDS: DOXYCYCLINE HYCLATE 100 MG TABLET PO (00:13)
--- NOTE | 2018-05-20 00:30 | PC.NURSE ---
patient could no ambulate. provider aware and no new orders at this time.
--- NOTE | 2018-05-20 01:11 | PC.NURSE ---
patients daughter has been called and she does no feel like she is able to help patient inside house. patient states that he uses a walker and can get from the car to the house if he has his walker. patient attempted to call roommate but no answer. patient states that he cannot walk without his walker. provider aware and no new orders at this time.
[2018-05-20 01:12] LABS: Reflexed Lactate in 2 Hours Y
[2018-05-20 05:06] VITALS: BP 175/78; PULSE 108; RESP 20; TEMP 36.8; O2SAT 98
== END 2018-05-20 05:08 | disposition home or self-care (01) ==
PROVIDERS: Emergency Provider Emergency Medicine; Family Provider Family Medicine; PCP Family Medicine
DX: L03.119 Cellulitis of unspecified part of limb (principal); W05.0XXA Fall from non-moving wheelchair, initial encounter
CPT/HCPCS: 36415; 36591; 80053; 80320; 83605; 84145; 85025; 87040; 96360; 96361; 99283; 99284

== ENCOUNTER → 2018-05-22 12:03 | Outpatient (CLI) | payer MEDICARE, SELFPAY | PROVIDERS: Family Provider Family Medicine; PCP Family Medicine; Visit Provider Family Medicine | DX: E11.621 Type 2 diabetes mellitus with foot ulcer (principal); L97.512 Non-pressure chronic ulcer of other part of right foot with fat layer exposed; I87.313 Chronic venous hypertension (idiopathic) with ulcer of bilateral lower extremity; L97.812 Non-pressure chronic ulcer of other part of right lower leg with fat layer exposed; L97.822 Non-pressure chronic ulcer of other part of left lower leg with fat layer exposed; I73.9 Peripheral vascular disease, unspecified; G90.09 Other idiopathic peripheral autonomic neuropathy; B95.7 Other staphylococcus as the cause of diseases classified elsewhere; Z91.19 Patient's noncompliance with other medical treatment and regimen | CPT/HCPCS: 87070; 87075; 87205; 97597; 99214 ==

== ENCOUNTER → 2018-05-30 11:10 | Outpatient (CLI) | payer MEDICARE, MEDICAID, SELFPAY | PROVIDERS: Family Provider Family Medicine; PCP Family Medicine; Visit Provider Family Medicine | DX: E11.621 Type 2 diabetes mellitus with foot ulcer (principal); L97.512 Non-pressure chronic ulcer of other part of right foot with fat layer exposed; I87.313 Chronic venous hypertension (idiopathic) with ulcer of bilateral lower extremity; L97.812 Non-pressure chronic ulcer of other part of right lower leg with fat layer exposed; L97.822 Non-pressure chronic ulcer of other part of left lower leg with fat layer exposed; I73.9 Peripheral vascular disease, unspecified; F10.10 Alcohol abuse, uncomplicated; G90.09 Other idiopathic peripheral autonomic neuropathy; B95.7 Other staphylococcus as the cause of diseases classified elsewhere; L08.9 Local infection of the skin and subcutaneous tissue, unspecified; Z91.19 Patient's noncompliance with other medical treatment and regimen | CPT/HCPCS: 11042; 11045; 73620; 87070; 87075; 87077; 87186; 87205; 99214 ==

== ENCOUNTER → 2018-05-30 12:22 | Outpatient (CLI) | payer MEDICARE, MEDICAID, SELFPAY ==
--- NOTE | 2018-05-30 | DI.RAD.S_ITS ---
PROCEDURE: XR FOOT RT 2V INDICATIONS: ROGHT FOOT ULCER TECHNIQUE: 3 views of the foot were acquired. COMPARISON: None. FINDINGS: There is a moderately severe degree of metatarsus primus varus and hallux valgus morphology of the first ray, with medial bunion formation at the medial first metatarsal head. Bones: No fractures or dislocations. No suspicious bony lesions. Soft tissues: No tibiotalar joint effusion. Achilles tendon appears normal. IMPRESSION: Podiatry related findings, a definite area of trauma or osteomyelitis is not seen. Small vessel calcifications indicate likely a long-standing diabetes. Dictated by: Tony Carrillo M.D. on 05/30/2018 at 13:52 Approved by: Tony Carrillo M.D. on 05/30/2018 at 13:53
== END ==
PROVIDERS: Family Provider Family Medicine; PCP Family Medicine; Visit Provider Family Medicine
DX: E11.621 Type 2 diabetes mellitus with foot ulcer (principal); L97.512 Non-pressure chronic ulcer of other part of right foot with fat layer exposed
CPT/HCPCS: 73620

== ENCOUNTER → 2018-06-01 13:22 | Outpatient (CLI) | payer MEDICARE, SELFPAY ==
--- NOTE | 2018-06-01 | DI.US.S_ITS ---
PROCEDURE: US ARTERIAL DUPLEX LE INDICATIONS: PERIPHERAL VASCULAR DISEASE TECHNIQUE: Color and pulse Doppler interrogation was performed of both lower extremity arterial systems, with image documentation. COMPARISON: [facility], , ARTERIAL LOW.EXTREM.BILATERAL, 09/19/2014, 10:58. FINDINGS: Right lower extremity: Common femoral artery: 143 cm/sec, with biphasic flow. Deep femoral artery: 126 cm/sec, with monophasic flow. Proximal superficial femoral artery: 137 cm/sec, with biphasic flow. Mid superficial femoral artery: 100 cm/sec, with biphasic flow. Distal superficial femoral artery: 114 cm/sec, with biphasic flow. Popliteal artery: 115 cm/sec, with biphasic flow. Posterior tibial artery: 105 cm/sec, with monophasic flow. Anterior tibial artery/dorsalis pedis: 22 cm/sec, with monophasic flow, with a significantly dampened waveform. Carbajal-scale imaging description: Atherosclerotic changes are seen. Left lower extremity: Common femoral artery: 139 cm/sec, with biphasic flow. Deep femoral artery: 174 cm/sec, with biphasic flow. Proximal superficial femoral artery: 116 cm/sec, with biphasic flow. Mid superficial femoral artery: 112 cm/sec, with monophasic flow. Distal superficial femoral artery: 102 cm/sec, with monophasic flow. Popliteal artery: 95 cm/sec, with monophasic flow. Posterior tibial artery: 65 cm/sec, with monophasic flow. Anterior tibial artery/dorsalis pedis: 46 cm/sec, with monophasic flow. Carbajal-scale imaging description: Atherosclerotic changes are seen. IMPRESSION: No hemodynamically significant stenosis is detected. Dictated by: Matthew Ware M.D. on 06/01/2018 at 15:35 Approved by: Matthew Ware M.D. on 06/01/2018 at 15:37
== END ==
PROVIDERS: Family Provider Family Medicine; PCP Family Medicine; Visit Provider Family Medicine
DX: I73.9 Peripheral vascular disease, unspecified (principal)
CPT/HCPCS: 93925

== ENCOUNTER → 2018-06-06 13:06 | Outpatient (CLI) | payer MEDICARE, SELFPAY | PROVIDERS: Family Provider Family Medicine; PCP Family Medicine; Visit Provider Family Medicine | DX: E11.621 Type 2 diabetes mellitus with foot ulcer (principal); L97.512 Non-pressure chronic ulcer of other part of right foot with fat layer exposed; I87.313 Chronic venous hypertension (idiopathic) with ulcer of bilateral lower extremity; L97.812 Non-pressure chronic ulcer of other part of right lower leg with fat layer exposed; L97.822 Non-pressure chronic ulcer of other part of left lower leg with fat layer exposed; B95.7 Other staphylococcus as the cause of diseases classified elsewhere | CPT/HCPCS: 99213; 99214 ==

== ENCOUNTER 2018-06-07 18:47 | Inpatient (IN) | payer MEDICARE, SELFPAY ==
[2018-06-07] VITALS (8 sets, daily range): BP systolic 116–157; BP diastolic 56–72; PULSE 86–96; RESP 18–35; TEMP 37.3–38.4; O2SAT 94–99; BMI 38.2
--- NOTE | 2018-06-07 18:54 | ED.FALL ---
HPI - Fall <Serina Mott PA-C - Last Filed: 06/07/18 22:29> General Chief Complaint: Weakness Stated Complaint: GLF Time Seen by Provider: 06/07/18 18:53 Source: patient Mode of arrival: EMS Limitations: physical limitation History of Present Illness HPI Narrative: This 67-year-old male is brought to ED due to increased weakness and fever (100.5 per EMS). He states that he was trying to get up when he slid out of his overstuffed chair today, which is not infrequent for him. Paramedics were called to help him up and they noted that he had fever at home and was complaining of increased weakness. He states that he has felt gradually more weak over the last several days in general, no focal weakness. He states he has also felt somewhat warm and has had cold symptoms for the last few days with some cough and congestion. He states his breathing really is not different than normal but maybe a little bit of wheeze. He does not have headache, sore throat or earache. He denies any new urinary symptoms and in fact states he has been urinating less as his new medicine has been helping. He has not had diarrhea or abdominal pain. He care for his legs and states that was just seen yesterday and these are doing better. He has not had increased pain or swelling. he is supposed to be on antibiotics for them and states he is waiting for this to come in at the pharmacy (he states he had been on antibiotics recently and wound care changed it yesterday). Wound nurse did come today and Re wrap his legs. He denies any other new symptoms or complaints on systems review. He states that he has not been drinking today and typically has been having not more than 2 drinks per day Related Data Home Medications Medication Instructions Recorded Confirmed citalopram 40 mg PO DAILY 12/25/17 06/07/18 furosemide 160 mg PO DAILY 12/25/17 06/07/18 glimepiride 1 mg PO DAILY 03/22/18 06/07/18 doxazosin 4 mg PO BEDTIME 06/07/18 06/07/18 doxycycline monohydrate 100 mg PO BID 06/07/18 06/07/18 duloxetine 30 mg PO DAILY 06/07/18 06/07/18 etodolac 400 mg PO BID 06/07/18 06/07/18 glipizide 5 mg PO DAILY 06/07/18 06/07/18 lorazepam 0.5 mg PO BID-TID PRN 06/07/18 06/07/18 Previous Rx's Medication Instructions Recorded doxycycline hyclate 100 mg PO BID #20 cap 05/19/18 Allergies Allergy/AdvReac Type Severity Reaction Status Date / Time latex Allergy Mild IRRITATION Verified 03/22/18 14:53 Sulfa (Sulfonamide AdvReac Mild N&V 1HOUR Verified 03/22/18 14:53 Antibiotics) AFTER RX, THINKS IT IS RELATED Review of Systems <Serina Mott PA-C - Last Filed: 06/07/18 22:29> Review of Systems ROS Unobtainable: All systems reviewed & are unremarkable except as noted in HPI and below Exam <Serina Mott PA-C - Last Filed: 06/07/18 22:29> Narrative Exam Narrative: GENERAL APPEARANCE: Patient sitting comfortably, in no distress. HEAD: No sinus TTP. EYES: PERRL, EOMI. ORAL CAVITY: Normal oropharynx. THROAT: Clear. PND noted NECK/THYROID: Neck supple, full range of motion, no cervical lymphadenopathy. LUNGS: Breath sounds are slightly coarse faint left-sided expiratory wheeze, no crackles, rare cough on exam. HEART: RRR with II/ systolic ejection murmur, nl S1, S2, no S3 or S4. ABDOMEN: Soft, nontender, nondistended EXTREMITIES: Moderate symmetric pitting edema, no cyanosis, no calf tenderness DERMATOLOGIC: Moderate warm erythema bilateral ankles to shins. There is an irregular open wound on the right ken with some pink granulation tissue present, skin is cracked Initial Vital Signs Initial Vital Signs: Vital Signs Temperature 99.1 F 06/07/18 18:55 Pulse Rate 96 H 06/07/18 18:55 Respiratory Rate 35 H 06/07/18 18:55 Blood Pressure 134/56 L 06/07/18 18:55 Pulse Oximetry 97 06/07/18 18:55 <Miroslava Rodriguez DO - Last Filed: 06/08/18 02:27> Initial Vital Signs Initial Vital Signs: Vital Signs Temperature 99.1 F 06/07/18 18:55 Pulse Rate 96 H 06/07/18 18:55 Respiratory Rate 35 H 06/07/18 18:55 Blood Pressure 134/56 L 06/07/18 18:55 Pulse Oximetry 97 06/07/18 18:55 PFSH <Serina Mott PA-C - Last Filed: 06/07/18 22:29> Medical History Anemia associated with chronic renal failure (Chronic) Symptomatic anemia (Chronic) GI bleed (Resolved) Diabetes type 2, controlled (Chronic) Alcoholism (Acute) Chronic kidney disease, stage 4 (severe) (Chronic) Depression (Chronic) Hypertension (Chronic) Hyperparathyroidism (Chronic) Chronic pain (Chronic) Duodenal ulcer (Acute) Left leg pain (Chronic) Gout, arthropathy (Chronic) History of cervical fracture (Resolved) Social History household members: family, friend(s) and other Smoking Status: Former smoker alcohol intake: current Course <Serina Mott PA-C - Last Filed: 06/07/18 22:29> Additional Information: On review it does appear that patient got doxycycline last month, prescribed for a week as well as cephalexin close to the same time. There was no new prescription noted yesterday on his pharmacy records, not clear whether those prescriptions were extended or whether he has failed outpatient antibiotic. Attending physician Dr. Rodriguez knows patient well and is concerned about noncompliance as well as his newly elevated white count since last visit, agrees admission is warranted. I spoke with Dr. Mcgregor manager transmission for Dr. Quintana who agrees to admit for obs, IV antibiotics. Patient is incontinent so in in out catheterization was done and urine will be sent for culture. Initial dose of Rocephin given. He is eating and drinking normally so IV fluids were not started at this time. Also reviewed anemia worse since last visit here with Dr. Mcgregor though it appears that these numbers are not unusual for patient with anemia related to CKD. Orders Ordered: ED Orders 06/07/18 19:05 Complete Blood Count AUTO DIFF Stat Comprehensive Metabolic Panel Stat Ethanol (ETOH) Stat Influenza A and B by PCR Rapid Stat Lactate (Lactic Acid) Stat Partial Thromboplastin Time Stat Procalcitonin Stat Prothrombin Time INR Stat 06/07/18 19:11 XR chest 1V Stat 06/07/18 19:31 Blood Culture Stat 06/07/18 21:05 Urinalysis and Microscopic Stat Urine Culture Stat Acetaminophen (Tylenol) 650 mg PO Q4HR PRN PRN Reason: As Needed for Fever/Mild Pain Last Admin: 06/08/18 01:21 Dose: 650 mg Sodium Chloride (Normal Saline 0.9%) 1,000 mls @ 100 mls/hr IV CONT DAVID Last Admin: 06/08/18 01:14 Dose: 100 mls/hr Lorazepam (Ativan) 0 mg IV CIWAPRN PRN; Protocol PRN Reason: Alcohol Withdrawal Last Admin: 06/08/18 01:22 Dose: 1 mg Lorazepam (Ativan) 0 mg PO CIWAPRN PRN; Protocol PRN Reason: Alcohol Withdrawal Sodium Chloride (Normal Saline 0.9% Flush) 10 ml IV PRN PRN PRN Reason: Flush Last Admin: 06/08/18 01:14 Dose: 10 ml Discontinued Medications Ceftriaxone Sodium 1,000 mg/ (Dextrose) 50 mls @ 100 mls/hr IV NOW ONE Stop: 06/07/18 21:05 Last Admin: 06/07/18 21:16 Dose: 100 mls/hr Vital Signs - 8 hr 06/07/18 18:55 06/07/18 19:00 06/07/18 20:00 Temperature 99.1 F Pulse Rate 96 H 93 H 93 H Respiratory Rate 35 H 31 H 21 Blood Pressure 134/56 L Blood Pressure [Right Arm] 128/56 L 124/63 Pulse Oximetry 97 06/07/18 20:51 06/07/18 21:00 06/07/18 21:36 Temperature Pulse Rate 86 94 H 96 H Respiratory Rate 30 H 22 26 H Blood Pressure 128/59 L Blood Pressure [Right Arm] 124/60 116/56 L Pulse Oximetry 99 97 94 06/07/18 21:50 06/07/18 23:20 06/08/18 01:21 Temperature 99.8 F H 101.1 F H 101.1 F H Pulse Rate 95 H 94 H Respiratory Rate 20 18 Blood Pressure 141/72 H 157/72 H Blood Pressure [Right Arm] Pulse Oximetry 96 95 06/08/18 01:58 06/08/18 01:59 Temperature 98.4 F 98.4 F Pulse Rate Respiratory Rate Blood Pressure Blood Pressure [Right Arm] Pulse Oximetry <Miroslava Rodriguez DO - Last Filed: 06/08/18 02:27> Orders Ordered: ED Orders 06/07/18 19:05 Complete Blood Count AUTO DIFF Stat Comprehensive Metabolic Panel Stat Ethanol (ETOH) Stat Influenza A and B by PCR Rapid Stat Lactate (Lactic Acid) Stat Partial Thromboplastin Time Stat Procalcitonin Stat Prothrombin Time INR Stat 06/07/18 19:11 XR chest 1V Stat 06/07/18 19:31 Blood Culture Stat 06/07/18 21:05 Urinalysis and Microscopic Stat Urine Culture Stat Acetaminophen (Tylenol) 650 mg PO Q4HR PRN PRN Reason: As Needed for Fever/Mild Pain Last Admin: 06/08/18 01:21 Dose: 650 mg Sodium Chloride (Normal Saline 0.9%) 1,000 mls @ 100 mls/hr IV CONT DAVID Last Admin: 06/08/18 01:14 Dose: 100 mls/hr Lorazepam (Ativan) 0 mg IV CIWAPRN PRN; Protocol PRN Reason: Alcohol Withdrawal Last Admin: 06/08/18 01:22 Dose: 1 mg Lorazepam (Ativan) 0 mg PO CIWAPRN PRN; Protocol PRN Reason: Alcohol Withdrawal Sodium Chloride (Normal Saline 0.9% Flush) 10 ml IV PRN PRN PRN Reason: Flush Last Admin: 06/08/18 01:14 Dose: 10 ml Discontinued Medications Ceftriaxone Sodium 1,000 mg/ (Dextrose) 50 mls @ 100 mls/hr IV NOW ONE Stop: 06/07/18 21:05 Last Admin: 06/07/18 21:16 Dose: 100 mls/hr Vital Signs - 8 hr 06/07/18 18:55 06/07/18 19:00 06/07/18 20:00 Temperature 99.1 F Pulse Rate 96 H 93 H 93 H Respiratory Rate 35 H 31 H 21 Blood Pressure 134/56 L Blood Pressure [Right Arm] 128/56 L 124/63 Pulse Oximetry 97 06/07/18 20:51 06/07/18 21:00 06/07/18 21:36 Temperature Pulse Rate 86 94 H 96 H Respiratory Rate 30 H 22 26 H Blood Pressure 128/59 L Blood Pressure [Right Arm] 124/60 116/56 L Pulse Oximetry 99 97 94 06/07/18 21:50 06/07/18 23:20 06/08/18 01:21 Temperature 99.8 F H 101.1 F H 101.1 F H Pulse Rate 95 H 94 H Respiratory Rate 20 18 Blood Pressure 141/72 H 157/72 H Blood Pressure [Right Arm] Pulse Oximetry 96 95 06/08/18 01:58 06/08/18 01:59 Temperature 98.4 F 98.4 F Pulse Rate Respiratory Rate Blood Pressure Blood Pressure [Right Arm] Pulse Oximetry MDM - Fall <Serina Mott PA-C - Last Filed: 06/07/18 22:29> Lab Data Attestation: I reviewed the patient's lab results. Result diagrams: 06/07/18 19:05 06/07/18 19:05 Lab Results 06/07/18 06/07/18 06/07/18 Range/Units 19:05 19:05 19:05 WBC 17.4 H (4.5-11.0) X10^3/uL RBC 2.36 L (4.5-5.9) X10^6/uL Hgb 7.6 L (13.5-17.5) g/dL Hct 23.9 L (41-53) % MCV 101.0 H (80-100) fL MCH 32.3 (26-34) PG MCHC 32.0 (30-36) % RDW 14.3 (11.6-14.8) % Plt Count 292 (150-400) X10^3/uL Neut % (Auto) 87.3 H (50-75) % Lymph % (Auto) 4.0 L (25-40) % [place] % (Auto) 7.7 (3-14) % Eos % (Auto) 0.6 L (2-4) % Baso % (Auto) 0.4 (0-2) % Neut # (Auto) 74764 H (4380-5110) /uL Lymph # (Auto) 700 L (3364-6755) /uL [place] # (Auto) 1300 H (0-900) /uL Eos # (Auto) 100 (0-450) /uL Baso # (Auto) 100 (0-100) /uL PT 12.2 (10.1-12.7) SECONDS INR 1.1 (0.9-1.3) APTT 32 (26.4-36.2) SECONDS Sodium (137-145) mmol/L Potassium (3.4-5.1) mmol/L Chloride (98-107) mmol/L Carbon Dioxide (22-32) mmol/L BUN (9-20) mg/dL Creatinine (0.66-1.25) mg/dL Estimated GFR (>60) mL/min BUN/Creatinine Ratio (6-22) Glucose (80-110) mg/dL Lactate (0.7-2.1) mmol/L Calcium (8.4-10.2) mg/dL Total Bilirubin (0.2-1.3) mg/dL AST (17-59) IU/L ALT (21-72) IU/L Alkaline Phosphatase (38-126) U/L Total Protein (6.3-8.2) g/dL Albumin (3.5-5.0) g/dL Globulin (1.7-4.1) g/dL Albumin/Globulin Ratio (1.0-2.8) Procalcitonin 0.10 (<0.5) ng/mL Urine Color Urine Appearance Urine pH (4.5-8.0) Ur Specific [place] (1.000-1.035) Urine Protein (Negative) Urine Glucose (UA) (Negative) g/dL Urine Ketones (NEGATIVE) Urine Occult Blood (Negative) Urine Nitrate (Negative) Urine Bilirubin (NEGATIVE) Urine Urobilinogen (0.2) E.U./dL Ur Leukocyte Esterase (NEGATIVE) Urine RBC (0-5/HPF) Urine WBC (0-5/HPF) Urine Bacteria (None) Ur Culture Indicated? Ethyl Alcohol mg/dL Influenza A & B (PCR) (Negative) 06/07/18 06/07/18 06/07/18 Range/Units 19:05 19:05 19:05 WBC (4.5-11.0) X10^3/uL RBC (4.5-5.9) X10^6/uL Hgb (13.5-17.5) g/dL Hct (41-53) % MCV (80-100) fL MCH (26-34) PG MCHC (30-36) % RDW (11.6-14.8) % Plt Count (150-400) X10^3/uL Neut % (Auto) (50-75) % Lymph % (Auto) (25-40) % [place] % (Auto) (3-14) % Eos % (Auto) (2-4) % Baso % (Auto) (0-2) % Neut # (Auto) (8837-5987) /uL Lymph # (Auto) (3048-4426) /uL [place] # (Auto) (0-900) /uL Eos # (Auto) (0-450) /uL Baso # (Auto) (0-100) /uL PT (10.1-12.7) SECONDS INR (0.9-1.3) APTT (26.4-36.2) SECONDS Sodium 134 L (137-145) mmol/L Potassium 4.3 (3.4-5.1) mmol/L Chloride 99 (98-107) mmol/L Carbon Dioxide 25 (22-32) mmol/L BUN 30 H (9-20) mg/dL Creatinine 1.60 H (0.66-1.25) mg/dL Estimated GFR 43.5 L (>60) mL/min BUN/Creatinine Ratio 18.8 (6-22) Glucose 174 H (80-110) mg/dL Lactate 2.0 (0.7-2.1) mmol/L Calcium 7.9 L (8.4-10.2) mg/dL Total Bilirubin 0.4 (0.2-1.3) mg/dL AST 13 L (17-59) IU/L ALT 22 (21-72) IU/L Alkaline Phosphatase 85 (38-126) U/L Total Protein 6.0 L (6.3-8.2) g/dL Albumin 3.3 L (3.5-5.0) g/dL Globulin 2.7 (1.7-4.1) g/dL Albumin/Globulin Ratio 1.2 (1.0-2.8) Procalcitonin (<0.5) ng/mL Urine Color Urine Appearance Urine pH (4.5-8.0) Ur Specific [place] (1.000-1.035) Urine Protein (Negative) Urine Glucose (UA) (Negative) g/dL Urine Ketones (NEGATIVE) Urine Occult Blood (Negative) Urine Nitrate (Negative) Urine Bilirubin (NEGATIVE) Urine Urobilinogen (0.2) E.U./dL Ur Leukocyte Esterase (NEGATIVE) Urine RBC (0-5/HPF) Urine WBC (0-5/HPF) Urine Bacteria (None) Ur Culture Indicated? Ethyl Alcohol < 10 mg/dL Influenza A & B (PCR) Negative (Negative) 06/07/18 Range/Units 21:05 WBC (4.5-11.0) X10^3/uL RBC (4.5-5.9) X10^6/uL Hgb (13.5-17.5) g/dL Hct (41-53) % MCV (80-100) fL MCH (26-34) PG MCHC (30-36) % RDW (11.6-14.8) % Plt Count (150-400) X10^3/uL Neut % (Auto) (50-75) % Lymph % (Auto) (25-40) % [place] % (Auto) (3-14) % Eos % (Auto) (2-4) % Baso % (Auto) (0-2) % Neut # (Auto) (5012-6498) /uL Lymph # (Auto) (3869-5055) /uL [place] # (Auto) (0-900) /uL Eos # (Auto) (0-450) /uL Baso # (Auto) (0-100) /uL PT (10.1-12.7) SECONDS INR (0.9-1.3) APTT (26.4-36.2) SECONDS Sodium (137-145) mmol/L Potassium (3.4-5.1) mmol/L Chloride (98-107) mmol/L Carbon Dioxide (22-32) mmol/L BUN (9-20) mg/dL Creatinine (0.66-1.25) mg/dL Estimated GFR (>60) mL/min BUN/Creatinine Ratio (6-22) Glucose (80-110) mg/dL Lactate (0.7-2.1) mmol/L Calcium (8.4-10.2) mg/dL Total Bilirubin (0.2-1.3) mg/dL AST (17-59) IU/L ALT (21-72) IU/L Alkaline Phosphatase (38-126) U/L Total Protein (6.3-8.2) g/dL Albumin (3.5-5.0) g/dL Globulin (1.7-4.1) g/dL Albumin/Globulin Ratio (1.0-2.8) Procalcitonin (<0.5) ng/mL Urine Color Yellow Urine Appearance Clear Urine pH 5.0 (4.5-8.0) Ur Specific [place] 1.015 (1.000-1.035) Urine Protein 1+ H (Negative) Urine Glucose (UA) Negative (Negative) g/dL Urine Ketones Negative (NEGATIVE) Urine Occult Blood Negative (Negative) Urine Nitrate Negative (Negative) Urine Bilirubin Negative (NEGATIVE) Urine Urobilinogen 0.2 (0.2) E.U./dL Ur Leukocyte Esterase 2+ H (NEGATIVE) Urine RBC None seen (0-5/HPF) Urine WBC 30-100/hpf H (0-5/HPF) Urine Bacteria Few (2-10) H (None) Ur Culture Indicated? Specimen cultured Ethyl Alcohol mg/dL Influenza A & B (PCR) (Negative) Imaging Data Chest x-ray: Radiologist's impression: [address] [address] XRay Report Signed Patient: Cristóbal Tubbs WMR#: [id number] : 2Acct:[id number] Age/Sex: 67 / MDate of Service: 06/07/18 Loc: ED Accession Number: [id number] Procedure: XR chest 1V Ordering Provider: Serina Mott P.A-C PROCEDURE: XR CHEST 1V INDICATIONS: cough, fever, weakness TECHNIQUE: One view of the chest was acquired. COMPARISON: [facility], , XR CHEST 1V, 03/23/2018, 9:18. FINDINGS: Surgical changes and devices: Post-fusion changes in cervical spine and visualized lower thoracic/upper lumbar spine are seen with surgical hardware in place. Suggestion of a broken right lower cervical spine fixation screws are seen, unchanged from previous study. Lungs and pleura: Lungs are clear. No pleural effusions or pneumothorax. Mediastinum: Mediastinal contours appear normal. Heart size is enlarged. Bones and chest wall: No suspicious bony lesions. Overlying soft tissues appear unremarkable. IMPRESSION: No acute pulmonary pathology. Cardiomegaly. 2 fractured fixation screws in right lower cervical spine, unchanged from prior study. Dictated by: Ervin Love M.D. on 06/07/2018 at 19:53 Approved by: Ervin Love M.D. on 06/07/2018 at 19:55 <Miroslava Rodriguez DO - Last Filed: 06/08/18 02:27> Lab Data Lab Results 06/07/18 06/07/18 06/07/18 Range/Units 19:05 19:05 19:05 WBC 17.4 H (4.5-11.0) X10^3/uL RBC 2.36 L (4.5-5.9) X10^6/uL Hgb 7.6 L (13.5-17.5) g/dL Hct 23.9 L (41-53) % MCV 101.0 H (80-100) fL MCH 32.3 (26-34) PG MCHC 32.0 (30-36) % RDW 14.3 (11.6-14.8) % Plt Count 292 (150-400) X10^3/uL Neut % (Auto) 87.3 H (50-75) % Lymph % (Auto) 4.0 L (25-40) % [place] % (Auto) 7.7 (3-14) % Eos % (Auto) 0.6 L (2-4) % Baso % (Auto) 0.4 (0-2) % Neut # (Auto) 43117 H (7522-7155) /uL Lymph # (Auto) 700 L (3781-3268) /uL [place] # (Auto) 1300 H (0-900) /uL Eos # (Auto) 100 (0-450) /uL Baso # (Auto) 100 (0-100) /uL PT 12.2 (10.1-12.7) SECONDS INR 1.1 (0.9-1.3) APTT 32 (26.4-36.2) SECONDS Sodium (137-145) mmol/L Potassium (3.4-5.1) mmol/L Chloride (98-107) mmol/L Carbon Dioxide (22-32) mmol/L BUN (9-20) mg/dL Creatinine (0.66-1.25) mg/dL Estimated GFR (>60) mL/min BUN/Creatinine Ratio (6-22) Glucose (80-110) mg/dL Lactate (0.7-2.1) mmol/L Calcium (8.4-10.2) mg/dL Total Bilirubin (0.2-1.3) mg/dL AST (17-59) IU/L ALT (21-72) IU/L Alkaline Phosphatase (38-126) U/L Total Protein (6.3-8.2) g/dL Albumin (3.5-5.0) g/dL Globulin (1.7-4.1) g/dL Albumin/Globulin Ratio (1.0-2.8) Procalcitonin 0.10 (<0.5) ng/mL Urine Color Urine Appearance Urine pH (4.5-8.0) Ur Specific [place] (1.000-1.035) Urine Protein (Negative) Urine Glucose (UA) (Negative) g/dL Urine Ketones (NEGATIVE) Urine Occult Blood (Negative) Urine Nitrate (Negative) Urine Bilirubin (NEGATIVE) Urine Urobilinogen (0.2) E.U./dL Ur Leukocyte Esterase (NEGATIVE) Urine RBC (0-5/HPF) Urine WBC (0-5/HPF) Urine Bacteria (None) Ur Culture Indicated? Ethyl Alcohol mg/dL Influenza A & B (PCR) (Negative) 06/07/18 06/07/18 06/07/18 Range/Units 19:05 19:05 19:05 WBC (4.5-11.0) X10^3/uL RBC (4.5-5.9) X10^6/uL Hgb (13.5-17.5) g/dL Hct (41-53) % MCV (80-100) fL MCH (26-34) PG MCHC (30-36) % RDW (11.6-14.8) % Plt Count (150-400) X10^3/uL Neut % (Auto) (50-75) % Lymph % (Auto) (25-40) % [place] % (Auto) (3-14) % Eos % (Auto) (2-4) % Baso % (Auto) (0-2) % Neut # (Auto) (7477-8006) /uL Lymph # (Auto) (2096-3555) /uL [place] # (Auto) (0-900) /uL Eos # (Auto) (0-450) /uL Baso # (Auto) (0-100) /uL PT (10.1-12.7) SECONDS INR (0.9-1.3) APTT (26.4-36.2) SECONDS Sodium 134 L (137-145) mmol/L Potassium 4.3 (3.4-5.1) mmol/L Chloride 99 (98-107) mmol/L Carbon Dioxide 25 (22-32) mmol/L BUN 30 H (9-20) mg/dL Creatinine 1.60 H (0.66-1.25) mg/dL Estimated GFR 43.5 L (>60) mL/min BUN/Creatinine Ratio 18.8 (6-22) Glucose 174 H (80-110) mg/dL Lactate 2.0 (0.7-2.1) mmol/L Calcium 7.9 L (8.4-10.2) mg/dL Total Bilirubin 0.4 (0.2-1.3) mg/dL AST 13 L (17-59) IU/L ALT 22 (21-72) IU/L Alkaline Phosphatase 85 (38-126) U/L Total Protein 6.0 L (6.3-8.2) g/dL Albumin 3.3 L (3.5-5.0) g/dL Globulin 2.7 (1.7-4.1) g/dL Albumin/Globulin Ratio 1.2 (1.0-2.8) Procalcitonin (<0.5) ng/mL Urine Color Urine Appearance Urine pH (4.5-8.0) Ur Specific [place] (1.000-1.035) Urine Protein (Negative) Urine Glucose (UA) (Negative) g/dL Urine Ketones (NEGATIVE) Urine Occult Blood (Negative) Urine Nitrate (Negative) Urine Bilirubin (NEGATIVE) Urine Urobilinogen (0.2) E.U./dL Ur Leukocyte Esterase (NEGATIVE) Urine RBC (0-5/HPF) Urine WBC (0-5/HPF) Urine Bacteria (None) Ur Culture Indicated? Ethyl Alcohol < 10 mg/dL Influenza A & B (PCR) Negative (Negative) 06/07/18 Range/Units 21:05 WBC (4.5-11.0) X10^3/uL RBC (4.5-5.9) X10^6/uL Hgb (13.5-17.5) g/dL Hct (41-53) % MCV (80-100) fL MCH (26-34) PG MCHC (30-36) % RDW (11.6-14.8) % Plt Count (150-400) X10^3/uL Neut % (Auto) (50-75) % Lymph % (Auto) (25-40) % [place] % (Auto) (3-14) % Eos % (Auto) (2-4) % Baso % (Auto) (0-2) % Neut # (Auto) (3665-3674) /uL Lymph # (Auto) (1664-7579) /uL [place] # (Auto) (0-900) /uL Eos # (Auto) (0-450) /uL Baso # (Auto) (0-100) /uL PT (10.1-12.7) SECONDS INR (0.9-1.3) APTT (26.4-36.2) SECONDS Sodium (137-145) mmol/L Potassium (3.4-5.1) mmol/L Chloride (98-107) mmol/L Carbon Dioxide (22-32) mmol/L BUN (9-20) mg/dL Creatinine (0.66-1.25) mg/dL Estimated GFR (>60) mL/min BUN/Creatinine Ratio (6-22) Glucose (80-110) mg/dL Lactate (0.7-2.1) mmol/L Calcium (8.4-10.2) mg/dL Total Bilirubin (0.2-1.3) mg/dL AST (17-59) IU/L ALT (21-72) IU/L Alkaline Phosphatase (38-126) U/L Total Protein (6.3-8.2) g/dL Albumin (3.5-5.0) g/dL Globulin (1.7-4.1) g/dL Albumin/Globulin Ratio (1.0-2.8) Procalcitonin (<0.5) ng/mL Urine Color Yellow Urine Appearance Clear Urine pH 5.0 (4.5-8.0) Ur Specific [place] 1.015 (1.000-1.035) Urine Protein 1+ H (Negative) Urine Glucose (UA) Negative (Negative) g/dL Urine Ketones Negative (NEGATIVE) Urine Occult Blood Negative (Negative) Urine Nitrate Negative (Negative) Urine Bilirubin Negative (NEGATIVE) Urine Urobilinogen 0.2 (0.2) E.U./dL Ur Leukocyte Esterase 2+ H (NEGATIVE) Urine RBC None seen (0-5/HPF) Urine WBC 30-100/hpf H (0-5/HPF) Urine Bacteria Few (2-10) H (None) Ur Culture Indicated? Specimen cultured Ethyl Alcohol mg/dL Influenza A & B (PCR) (Negative) Discharge Plan Departure Patient Disposition: Admitted as Observation Clinical Impression: Cellulitis of lower leg, Weakness Anemia Qualifiers: Anemia type: due to chronic kidney disease Chronic kidney disease stage: stage 4 (severe) Qualified Code(s): N18.4 - Chronic kidney disease, stage 4 (severe) Discharge Date/Time: 06/07/18 21:37 Interventions: ED Discharge Assessment Last Done: 06/07/18 21:36 Admit Date/Time: 06/07/18 21:10 Admit Provider: Tyree Mcgregor <Miroslava Rodriguez DO - Last Filed: 06/08/18 02:27> Cosign ED Attending Cosfadyature Attestation: I was immediately available in the department for consultation. Documentation has been reviewed. I agree with assessment and plan. The patient has failed outpatient treatment. He has had multiple falls low-grade fever with increasing leukocytosis. He is diabetic possibly noncompliant as well. This time recommend inpatient stay.
--- NOTE | 2018-06-07 19:11 | DI.RAD.S_ITS ---
PROCEDURE: XR CHEST 1V INDICATIONS: cough, fever, weakness TECHNIQUE: One view of the chest was acquired. COMPARISON: [facility], CR, XR CHEST 1V, 03/23/2018, 9:18. FINDINGS: Surgical changes and devices: Post-fusion changes in cervical spine and visualized lower thoracic/upper lumbar spine are seen with surgical hardware in place. Suggestion of a broken right lower cervical spine fixation screws are seen, unchanged from previous study. Lungs and pleura: Lungs are clear. No pleural effusions or pneumothorax. Mediastinum: Mediastinal contours appear normal. Heart size is enlarged. Bones and chest wall: No suspicious bony lesions. Overlying soft tissues appear unremarkable. IMPRESSION: No acute pulmonary pathology. Cardiomegaly. 2 fractured fixation screws in right lower cervical spine, unchanged from prior study. Dictated by: Ervin Love M.D. on 06/07/2018 at 19:53 Approved by: Ervin Love M.D. on 06/07/2018 at 19:55
--- NOTE | 2018-06-07 19:20 | ED_ITS ---
HPI - Fall <Serina Mott PA-C - Last Filed: 06/07/18 22:29> General Chief Complaint: Weakness Stated Complaint: GLF Time Seen by Provider: 06/07/18 18:53 Source: patient Mode of arrival: EMS Limitations: physical limitation History of Present Illness HPI Narrative: This 67-year-old male is brought to ED due to increased weakness and fever (100.5 per EMS). He states that he was trying to get up when he slid out of his overstuffed chair today, which is not infrequent for him. Paramedics were called to help him up and they noted that he had fever at home and was complaining of increased weakness. He states that he has felt gradually more weak over the last several days in general, no focal weakness. He states he has also felt somewhat warm and has had cold symptoms for the last few days with some cough and congestion. He states his breathing really is not different than normal but maybe a little bit of wheeze. He does not have headache, sore throat or earache. He denies any new urinary symptoms and in fact states he has been urinating less as his new medicine has been helping. He has not had diarrhea or abdominal pain. He care for his legs and states that was just seen yesterday and these are doing better. He has not had increased pain or swelling. he is supposed to be on antibiotics for them and states he is waiting for this to come in at the pharmacy (he states he had been on antibiotics recently and wound care changed it yesterday). Wound nurse did come today and Re wrap his legs. He denies any other new symptoms or complaints on systems review. He states that he has not been drinking today and typically has been having not more than 2 drinks per day Related Data Home Medications Medication Instructions Recorded Confirmed citalopram 40 mg PO DAILY 12/25/17 06/07/18 furosemide 160 mg PO DAILY 12/25/17 06/07/18 glimepiride 1 mg PO DAILY 03/22/18 06/07/18 doxazosin 4 mg PO BEDTIME 06/07/18 06/07/18 doxycycline monohydrate 100 mg PO BID 06/07/18 06/07/18 duloxetine 30 mg PO DAILY 06/07/18 06/07/18 etodolac 400 mg PO BID 06/07/18 06/07/18 glipizide 5 mg PO DAILY 06/07/18 06/07/18 lorazepam 0.5 mg PO BID-TID PRN 06/07/18 06/07/18 Previous Rx's Medication Instructions Recorded doxycycline hyclate 100 mg PO BID #20 cap 05/19/18 Allergies Allergy/AdvReac Type Severity Reaction Status Date / Time latex Allergy Mild IRRITATION Verified 03/22/18 14:53 Sulfa (Sulfonamide AdvReac Mild N&V 1HOUR Verified 03/22/18 14:53 Antibiotics) AFTER RX, THINKS IT IS RELATED Review of Systems <Serina Mott PA-C - Last Filed: 06/07/18 22:29> Review of Systems ROS Unobtainable: All systems reviewed & are unremarkable except as noted in HPI and below Exam <Serina Mott PA-C - Last Filed: 06/07/18 22:29> Narrative Exam Narrative: GENERAL APPEARANCE: Patient sitting comfortably, in no distress. HEAD: No sinus TTP. EYES: PERRL, EOMI. ORAL CAVITY: Normal oropharynx. THROAT: Clear. PND noted NECK/THYROID: Neck supple, full range of motion, no cervical lymphadenopathy. LUNGS: Breath sounds are slightly coarse faint left-sided expiratory wheeze, no crackles, rare cough on exam. HEART: RRR with II/ systolic ejection murmur, nl S1, S2, no S3 or S4. ABDOMEN: Soft, nontender, nondistended EXTREMITIES: Moderate symmetric pitting edema, no cyanosis, no calf tenderness DERMATOLOGIC: Moderate warm erythema bilateral ankles to shins. There is an irregular open wound on the right ken with some pink granulation tissue present, skin is cracked Initial Vital Signs Initial Vital Signs: Vital Signs Temperature 99.1 F 06/07/18 18:55 Pulse Rate 96 H 06/07/18 18:55 Respiratory Rate 35 H 06/07/18 18:55 Blood Pressure 134/56 L 06/07/18 18:55 Pulse Oximetry 97 06/07/18 18:55 <Miroslava Rodriguez DO - Last Filed: 06/08/18 02:27> Initial Vital Signs Initial Vital Signs: Vital Signs Temperature 99.1 F 06/07/18 18:55 Pulse Rate 96 H 06/07/18 18:55 Respiratory Rate 35 H 06/07/18 18:55 Blood Pressure 134/56 L 06/07/18 18:55 Pulse Oximetry 97 06/07/18 18:55 PFSH <Serina Mott PA-C - Last Filed: 06/07/18 22:29> Medical History Anemia associated with chronic renal failure (Chronic) Symptomatic anemia (Chronic) GI bleed (Resolved) Diabetes type 2, controlled (Chronic) Alcoholism (Acute) Chronic kidney disease, stage 4 (severe) (Chronic) Depression (Chronic) Hypertension (Chronic) Hyperparathyroidism (Chronic) Chronic pain (Chronic) Duodenal ulcer (Acute) Left leg pain (Chronic) Gout, arthropathy (Chronic) History of cervical fracture (Resolved) Social History household members: family, friend(s) and other Smoking Status: Former smoker alcohol intake: current Course <Serina Mott PA-C - Last Filed: 06/07/18 22:29> Additional Information: On review it does appear that patient got doxycycline last month, prescribed for a week as well as cephalexin close to the same time. There was no new prescription noted yesterday on his pharmacy records, not clear whether those prescriptions were extended or whether he has failed outpatient antibiotic. Attending physician Dr. Rodriguez knows patient well and is concerned about noncompliance as well as his newly elevated white count since last visit, agrees admission is warranted. I spoke with Dr. Mcgregor bench precision assembler for Dr. Quintana who agrees to admit for obs, IV antibiotics. Patient is incontinent so in in out catheterization was done and urine will be sent for culture. Initial dose of Rocephin given. He is eating and drinking normally so IV fluids were not started at this time. Also reviewed anemia worse since last visit here with Dr. Mcgregor though it appears that these numbers are not unusual for patient with anemia related to CKD. Orders Ordered: ED Orders 06/07/18 19:05 Complete Blood Count AUTO DIFF Stat Comprehensive Metabolic Panel Stat Ethanol (ETOH) Stat Influenza A and B by PCR Rapid Stat Lactate (Lactic Acid) Stat Partial Thromboplastin Time Stat Procalcitonin Stat Prothrombin Time INR Stat 06/07/18 19:11 XR chest 1V Stat 06/07/18 19:31 Blood Culture Stat 06/07/18 21:05 Urinalysis and Microscopic Stat Urine Culture Stat Acetaminophen (Tylenol) 650 mg PO Q4HR PRN PRN Reason: As Needed for Fever/Mild Pain Last Admin: 06/08/18 01:21 Dose: 650 mg Sodium Chloride (Normal Saline 0.9%) 1,000 mls @ 100 mls/hr IV CONT DAVID Last Admin: 06/08/18 01:14 Dose: 100 mls/hr Lorazepam (Ativan) 0 mg IV CIWAPRN PRN; Protocol PRN Reason: Alcohol Withdrawal Last Admin: 06/08/18 01:22 Dose: 1 mg Lorazepam (Ativan) 0 mg PO CIWAPRN PRN; Protocol PRN Reason: Alcohol Withdrawal Sodium Chloride (Normal Saline 0.9% Flush) 10 ml IV PRN PRN PRN Reason: Flush Last Admin: 06/08/18 01:14 Dose: 10 ml Discontinued Medications Ceftriaxone Sodium 1,000 mg/ (Dextrose) 50 mls @ 100 mls/hr IV NOW ONE Stop: 06/07/18 21:05 Last Admin: 06/07/18 21:16 Dose: 100 mls/hr Vital Signs - 8 hr 06/07/18 18:55 06/07/18 19:00 06/07/18 20:00 Temperature 99.1 F Pulse Rate 96 H 93 H 93 H Respiratory Rate 35 H 31 H 21 Blood Pressure 134/56 L Blood Pressure [Right Arm] 128/56 L 124/63 Pulse Oximetry 97 06/07/18 20:51 06/07/18 21:00 06/07/18 21:36 Temperature Pulse Rate 86 94 H 96 H Respiratory Rate 30 H 22 26 H Blood Pressure 128/59 L Blood Pressure [Right Arm] 124/60 116/56 L Pulse Oximetry 99 97 94 06/07/18 21:50 06/07/18 23:20 06/08/18 01:21 Temperature 99.8 F H 101.1 F H 101.1 F H Pulse Rate 95 H 94 H Respiratory Rate 20 18 Blood Pressure 141/72 H 157/72 H Blood Pressure [Right Arm] Pulse Oximetry 96 95 06/08/18 01:58 06/08/18 01:59 Temperature 98.4 F 98.4 F Pulse Rate Respiratory Rate Blood Pressure Blood Pressure [Right Arm] Pulse Oximetry <Miroslava Rodriguez DO - Last Filed: 06/08/18 02:27> Orders Ordered: ED Orders 06/07/18 19:05 Complete Blood Count AUTO DIFF Stat Comprehensive Metabolic Panel Stat Ethanol (ETOH) Stat Influenza A and B by PCR Rapid Stat Lactate (Lactic Acid) Stat Partial Thromboplastin Time Stat Procalcitonin Stat Prothrombin Time INR Stat 06/07/18 19:11 XR chest 1V Stat 06/07/18 19:31 Blood Culture Stat 06/07/18 21:05 Urinalysis and Microscopic Stat Urine Culture Stat Acetaminophen (Tylenol) 650 mg PO Q4HR PRN PRN Reason: As Needed for Fever/Mild Pain Last Admin: 06/08/18 01:21 Dose: 650 mg Sodium Chloride (Normal Saline 0.9%) 1,000 mls @ 100 mls/hr IV CONT DAVID Last Admin: 06/08/18 01:14 Dose: 100 mls/hr Lorazepam (Ativan) 0 mg IV CIWAPRN PRN; Protocol PRN Reason: Alcohol Withdrawal Last Admin: 06/08/18 01:22 Dose: 1 mg Lorazepam (Ativan) 0 mg PO CIWAPRN PRN; Protocol PRN Reason: Alcohol Withdrawal Sodium Chloride (Normal Saline 0.9% Flush) 10 ml IV PRN PRN PRN Reason: Flush Last Admin: 06/08/18 01:14 Dose: 10 ml Discontinued Medications Ceftriaxone Sodium 1,000 mg/ (Dextrose) 50 mls @ 100 mls/hr IV NOW ONE Stop: 06/07/18 21:05 Last Admin: 06/07/18 21:16 Dose: 100 mls/hr Vital Signs - 8 hr 06/07/18 18:55 06/07/18 19:00 06/07/18 20:00 Temperature 99.1 F Pulse Rate 96 H 93 H 93 H Respiratory Rate 35 H 31 H 21 Blood Pressure 134/56 L Blood Pressure [Right Arm] 128/56 L 124/63 Pulse Oximetry 97 06/07/18 20:51 06/07/18 21:00 06/07/18 21:36 Temperature Pulse Rate 86 94 H 96 H Respiratory Rate 30 H 22 26 H Blood Pressure 128/59 L Blood Pressure [Right Arm] 124/60 116/56 L Pulse Oximetry 99 97 94 06/07/18 21:50 06/07/18 23:20 06/08/18 01:21 Temperature 99.8 F H 101.1 F H 101.1 F H Pulse Rate 95 H 94 H Respiratory Rate 20 18 Blood Pressure 141/72 H 157/72 H Blood Pressure [Right Arm] Pulse Oximetry 96 95 06/08/18 01:58 06/08/18 01:59 Temperature 98.4 F 98.4 F Pulse Rate Respiratory Rate Blood Pressure Blood Pressure [Right Arm] Pulse Oximetry MDM - Fall <Serina Mott PA-C - Last Filed: 06/07/18 22:29> Lab Data Attestation: I reviewed the patient's lab results. Result diagrams: 06/07/18 19:05 06/07/18 19:05 Lab Results 06/07/18 06/07/18 06/07/18 Range/Units 19:05 19:05 19:05 WBC 17.4 H (4.5-11.0) X10^3/uL RBC 2.36 L (4.5-5.9) X10^6/uL Hgb 7.6 L (13.5-17.5) g/dL Hct 23.9 L (41-53) % MCV 101.0 H (80-100) fL MCH 32.3 (26-34) PG MCHC 32.0 (30-36) % RDW 14.3 (11.6-14.8) % Plt Count 292 (150-400) X10^3/uL Neut % (Auto) 87.3 H (50-75) % Lymph % (Auto) 4.0 L (25-40) % Rains % (Auto) 7.7 (3-14) % Eos % (Auto) 0.6 L (2-4) % Baso % (Auto) 0.4 (0-2) % Neut # (Auto) 72468 H (5650-5130) /uL Lymph # (Auto) 700 L (4659-3565) /uL Rains # (Auto) 1300 H (0-900) /uL Eos # (Auto) 100 (0-450) /uL Baso # (Auto) 100 (0-100) /uL PT 12.2 (10.1-12.7) SECONDS INR 1.1 (0.9-1.3) APTT 32 (26.4-36.2) SECONDS Sodium (137-145) mmol/L Potassium (3.4-5.1) mmol/L Chloride (98-107) mmol/L Carbon Dioxide (22-32) mmol/L BUN (9-20) mg/dL Creatinine (0.66-1.25) mg/dL Estimated GFR (>60) mL/min BUN/Creatinine Ratio (6-22) Glucose (80-110) mg/dL Lactate (0.7-2.1) mmol/L Calcium (8.4-10.2) mg/dL Total Bilirubin (0.2-1.3) mg/dL AST (17-59) IU/L ALT (21-72) IU/L Alkaline Phosphatase (38-126) U/L Total Protein (6.3-8.2) g/dL Albumin (3.5-5.0) g/dL Globulin (1.7-4.1) g/dL Albumin/Globulin Ratio (1.0-2.8) Procalcitonin 0.10 (<0.5) ng/mL Urine Color Urine Appearance Urine pH (4.5-8.0) Ur Specific [place] (1.000-1.035) Urine Protein (Negative) Urine Glucose (UA) (Negative) g/dL Urine Ketones (NEGATIVE) Urine Occult Blood (Negative) Urine Nitrate (Negative) Urine Bilirubin (NEGATIVE) Urine Urobilinogen (0.2) E.U./dL Ur Leukocyte Esterase (NEGATIVE) Urine RBC (0-5/HPF) Urine WBC (0-5/HPF) Urine Bacteria (None) Ur Culture Indicated? Ethyl Alcohol mg/dL Influenza A & B (PCR) (Negative) 06/07/18 06/07/18 06/07/18 Range/Units 19:05 19:05 19:05 WBC (4.5-11.0) X10^3/uL RBC (4.5-5.9) X10^6/uL Hgb (13.5-17.5) g/dL Hct (41-53) % MCV (80-100) fL MCH (26-34) PG MCHC (30-36) % RDW (11.6-14.8) % Plt Count (150-400) X10^3/uL Neut % (Auto) (50-75) % Lymph % (Auto) (25-40) % Rains % (Auto) (3-14) % Eos % (Auto) (2-4) % Baso % (Auto) (0-2) % Neut # (Auto) (3115-9685) /uL Lymph # (Auto) (2139-9791) /uL Rains # (Auto) (0-900) /uL Eos # (Auto) (0-450) /uL Baso # (Auto) (0-100) /uL PT (10.1-12.7) SECONDS INR (0.9-1.3) APTT (26.4-36.2) SECONDS Sodium 134 L (137-145) mmol/L Potassium 4.3 (3.4-5.1) mmol/L Chloride 99 (98-107) mmol/L Carbon Dioxide 25 (22-32) mmol/L BUN 30 H (9-20) mg/dL Creatinine 1.60 H (0.66-1.25) mg/dL Estimated GFR 43.5 L (>60) mL/min BUN/Creatinine Ratio 18.8 (6-22) Glucose 174 H (80-110) mg/dL Lactate 2.0 (0.7-2.1) mmol/L Calcium 7.9 L (8.4-10.2) mg/dL Total Bilirubin 0.4 (0.2-1.3) mg/dL AST 13 L (17-59) IU/L ALT 22 (21-72) IU/L Alkaline Phosphatase 85 (38-126) U/L Total Protein 6.0 L (6.3-8.2) g/dL Albumin 3.3 L (3.5-5.0) g/dL Globulin 2.7 (1.7-4.1) g/dL Albumin/Globulin Ratio 1.2 (1.0-2.8) Procalcitonin (<0.5) ng/mL Urine Color Urine Appearance Urine pH (4.5-8.0) Ur Specific [place] (1.000-1.035) Urine Protein (Negative) Urine Glucose (UA) (Negative) g/dL Urine Ketones (NEGATIVE) Urine Occult Blood (Negative) Urine Nitrate (Negative) Urine Bilirubin (NEGATIVE) Urine Urobilinogen (0.2) E.U./dL Ur Leukocyte Esterase (NEGATIVE) Urine RBC (0-5/HPF) Urine WBC (0-5/HPF) Urine Bacteria (None) Ur Culture Indicated? Ethyl Alcohol < 10 mg/dL Influenza A & B (PCR) Negative (Negative) 06/07/18 Range/Units 21:05 WBC (4.5-11.0) X10^3/uL RBC (4.5-5.9) X10^6/uL Hgb (13.5-17.5) g/dL Hct (41-53) % MCV (80-100) fL MCH (26-34) PG MCHC (30-36) % RDW (11.6-14.8) % Plt Count (150-400) X10^3/uL Neut % (Auto) (50-75) % Lymph % (Auto) (25-40) % Rains % (Auto) (3-14) % Eos % (Auto) (2-4) % Baso % (Auto) (0-2) % Neut # (Auto) (0088-9365) /uL Lymph # (Auto) (2441-3720) /uL Rains # (Auto) (0-900) /uL Eos # (Auto) (0-450) /uL Baso # (Auto) (0-100) /uL PT (10.1-12.7) SECONDS INR (0.9-1.3) APTT (26.4-36.2) SECONDS Sodium (137-145) mmol/L Potassium (3.4-5.1) mmol/L Chloride (98-107) mmol/L Carbon Dioxide (22-32) mmol/L BUN (9-20) mg/dL Creatinine (0.66-1.25) mg/dL Estimated GFR (>60) mL/min BUN/Creatinine Ratio (6-22) Glucose (80-110) mg/dL Lactate (0.7-2.1) mmol/L Calcium (8.4-10.2) mg/dL Total Bilirubin (0.2-1.3) mg/dL AST (17-59) IU/L ALT (21-72) IU/L Alkaline Phosphatase (38-126) U/L Total Protein (6.3-8.2) g/dL Albumin (3.5-5.0) g/dL Globulin (1.7-4.1) g/dL Albumin/Globulin Ratio (1.0-2.8) Procalcitonin (<0.5) ng/mL Urine Color Yellow Urine Appearance Clear Urine pH 5.0 (4.5-8.0) Ur Specific [place] 1.015 (1.000-1.035) Urine Protein 1+ H (Negative) Urine Glucose (UA) Negative (Negative) g/dL Urine Ketones Negative (NEGATIVE) Urine Occult Blood Negative (Negative) Urine Nitrate Negative (Negative) Urine Bilirubin Negative (NEGATIVE) Urine Urobilinogen 0.2 (0.2) E.U./dL Ur Leukocyte Esterase 2+ H (NEGATIVE) Urine RBC None seen (0-5/HPF) Urine WBC 30-100/hpf H (0-5/HPF) Urine Bacteria Few (2-10) H (None) Ur Culture Indicated? Specimen cultured Ethyl Alcohol mg/dL Influenza A & B (PCR) (Negative) Imaging Data Chest x-ray: Radiologist's impression: [address] [address] XRay Report Signed Patient: Cristóbal Tubbs WMR#: [id number] : 2Acct:[id number] Age/Sex: 67 / MDate of Service: 06/07/18 Loc: ED Accession Number: [id number] Procedure: XR chest 1V Ordering Provider: Serina Mott P.A-C PROCEDURE: XR CHEST 1V INDICATIONS: cough, fever, weakness TECHNIQUE: One view of the chest was acquired. COMPARISON: [facility], , XR CHEST 1V, 03/23/2018, 9:18. FINDINGS: Surgical changes and devices: Post-fusion changes in cervical spine and visualized lower thoracic/upper lumbar spine are seen with surgical hardware in place. Suggestion of a broken right lower cervical spine fixation screws are seen, unchanged from previous study. Lungs and pleura: Lungs are clear. No pleural effusions or pneumothorax. Mediastinum: Mediastinal contours appear normal. Heart size is enlarged. Bones and chest wall: No suspicious bony lesions. Overlying soft tissues appear unremarkable. IMPRESSION: No acute pulmonary pathology. Cardiomegaly. 2 fractured fixation screws in right lower cervical spine, unchanged from prior study. Dictated by: Ervin Love M.D. on 06/07/2018 at 19:53 Approved by: Ervin Love M.D. on 06/07/2018 at 19:55 <Miroslava Rodriguez DO - Last Filed: 06/08/18 02:27> Lab Data Lab Results 06/07/18 06/07/18 06/07/18 Range/Units 19:05 19:05 19:05 WBC 17.4 H (4.5-11.0) X10^3/uL RBC 2.36 L (4.5-5.9) X10^6/uL Hgb 7.6 L (13.5-17.5) g/dL Hct 23.9 L (41-53) % MCV 101.0 H (80-100) fL MCH 32.3 (26-34) PG MCHC 32.0 (30-36) % RDW 14.3 (11.6-14.8) % Plt Count 292 (150-400) X10^3/uL Neut % (Auto) 87.3 H (50-75) % Lymph % (Auto) 4.0 L (25-40) % Rains % (Auto) 7.7 (3-14) % Eos % (Auto) 0.6 L (2-4) % Baso % (Auto) 0.4 (0-2) % Neut # (Auto) 04567 H (6287-6306) /uL Lymph # (Auto) 700 L (5949-2146) /uL Rains # (Auto) 1300 H (0-900) /uL Eos # (Auto) 100 (0-450) /uL Baso # (Auto) 100 (0-100) /uL PT 12.2 (10.1-12.7) SECONDS INR 1.1 (0.9-1.3) APTT 32 (26.4-36.2) SECONDS Sodium (137-145) mmol/L Potassium (3.4-5.1) mmol/L Chloride (98-107) mmol/L Carbon Dioxide (22-32) mmol/L BUN (9-20) mg/dL Creatinine (0.66-1.25) mg/dL Estimated GFR (>60) mL/min BUN/Creatinine Ratio (6-22) Glucose (80-110) mg/dL Lactate (0.7-2.1) mmol/L Calcium (8.4-10.2) mg/dL Total Bilirubin (0.2-1.3) mg/dL AST (17-59) IU/L ALT (21-72) IU/L Alkaline Phosphatase (38-126) U/L Total Protein (6.3-8.2) g/dL Albumin (3.5-5.0) g/dL Globulin (1.7-4.1) g/dL Albumin/Globulin Ratio (1.0-2.8) Procalcitonin 0.10 (<0.5) ng/mL Urine Color Urine Appearance Urine pH (4.5-8.0) Ur Specific [place] (1.000-1.035) Urine Protein (Negative) Urine Glucose (UA) (Negative) g/dL Urine Ketones (NEGATIVE) Urine Occult Blood (Negative) Urine Nitrate (Negative) Urine Bilirubin (NEGATIVE) Urine Urobilinogen (0.2) E.U./dL Ur Leukocyte Esterase (NEGATIVE) Urine RBC (0-5/HPF) Urine WBC (0-5/HPF) Urine Bacteria (None) Ur Culture Indicated? Ethyl Alcohol mg/dL Influenza A & B (PCR) (Negative) 06/07/18 06/07/18 06/07/18 Range/Units 19:05 19:05 19:05 WBC (4.5-11.0) X10^3/uL RBC (4.5-5.9) X10^6/uL Hgb (13.5-17.5) g/dL Hct (41-53) % MCV (80-100) fL MCH (26-34) PG MCHC (30-36) % RDW (11.6-14.8) % Plt Count (150-400) X10^3/uL Neut % (Auto) (50-75) % Lymph % (Auto) (25-40) % Rains % (Auto) (3-14) % Eos % (Auto) (2-4) % Baso % (Auto) (0-2) % Neut # (Auto) (1704-5506) /uL Lymph # (Auto) (1282-6503) /uL Rains # (Auto) (0-900) /uL Eos # (Auto) (0-450) /uL Baso # (Auto) (0-100) /uL PT (10.1-12.7) SECONDS INR (0.9-1.3) APTT (26.4-36.2) SECONDS Sodium 134 L (137-145) mmol/L Potassium 4.3 (3.4-5.1) mmol/L Chloride 99 (98-107) mmol/L Carbon Dioxide 25 (22-32) mmol/L BUN 30 H (9-20) mg/dL Creatinine 1.60 H (0.66-1.25) mg/dL Estimated GFR 43.5 L (>60) mL/min BUN/Creatinine Ratio 18.8 (6-22) Glucose 174 H (80-110) mg/dL Lactate 2.0 (0.7-2.1) mmol/L Calcium 7.9 L (8.4-10.2) mg/dL Total Bilirubin 0.4 (0.2-1.3) mg/dL AST 13 L (17-59) IU/L ALT 22 (21-72) IU/L Alkaline Phosphatase 85 (38-126) U/L Total Protein 6.0 L (6.3-8.2) g/dL Albumin 3.3 L (3.5-5.0) g/dL Globulin 2.7 (1.7-4.1) g/dL Albumin/Globulin Ratio 1.2 (1.0-2.8) Procalcitonin (<0.5) ng/mL Urine Color Urine Appearance Urine pH (4.5-8.0) Ur Specific [place] (1.000-1.035) Urine Protein (Negative) Urine Glucose (UA) (Negative) g/dL Urine Ketones (NEGATIVE) Urine Occult Blood (Negative) Urine Nitrate (Negative) Urine Bilirubin (NEGATIVE) Urine Urobilinogen (0.2) E.U./dL Ur Leukocyte Esterase (NEGATIVE) Urine RBC (0-5/HPF) Urine WBC (0-5/HPF) Urine Bacteria (None) Ur Culture Indicated? Ethyl Alcohol < 10 mg/dL Influenza A & B (PCR) Negative (Negative) 06/07/18 Range/Units 21:05 WBC (4.5-11.0) X10^3/uL RBC (4.5-5.9) X10^6/uL Hgb (13.5-17.5) g/dL Hct (41-53) % MCV (80-100) fL MCH (26-34) PG MCHC (30-36) % RDW (11.6-14.8) % Plt Count (150-400) X10^3/uL Neut % (Auto) (50-75) % Lymph % (Auto) (25-40) % Rains % (Auto) (3-14) % Eos % (Auto) (2-4) % Baso % (Auto) (0-2) % Neut # (Auto) (1047-6558) /uL Lymph # (Auto) (1167-6412) /uL Rains # (Auto) (0-900) /uL Eos # (Auto) (0-450) /uL Baso # (Auto) (0-100) /uL PT (10.1-12.7) SECONDS INR (0.9-1.3) APTT (26.4-36.2) SECONDS Sodium (137-145) mmol/L Potassium (3.4-5.1) mmol/L Chloride (98-107) mmol/L Carbon Dioxide (22-32) mmol/L BUN (9-20) mg/dL Creatinine (0.66-1.25) mg/dL Estimated GFR (>60) mL/min BUN/Creatinine Ratio (6-22) Glucose (80-110) mg/dL Lactate (0.7-2.1) mmol/L Calcium (8.4-10.2) mg/dL Total Bilirubin (0.2-1.3) mg/dL AST (17-59) IU/L ALT (21-72) IU/L Alkaline Phosphatase (38-126) U/L Total Protein (6.3-8.2) g/dL Albumin (3.5-5.0) g/dL Globulin (1.7-4.1) g/dL Albumin/Globulin Ratio (1.0-2.8) Procalcitonin (<0.5) ng/mL Urine Color Yellow Urine Appearance Clear Urine pH 5.0 (4.5-8.0) Ur Specific [place] 1.015 (1.000-1.035) Urine Protein 1+ H (Negative) Urine Glucose (UA) Negative (Negative) g/dL Urine Ketones Negative (NEGATIVE) Urine Occult Blood Negative (Negative) Urine Nitrate Negative (Negative) Urine Bilirubin Negative (NEGATIVE) Urine Urobilinogen 0.2 (0.2) E.U./dL Ur Leukocyte Esterase 2+ H (NEGATIVE) Urine RBC None seen (0-5/HPF) Urine WBC 30-100/hpf H (0-5/HPF) Urine Bacteria Few (2-10) H (None) Ur Culture Indicated? Specimen cultured Ethyl Alcohol mg/dL Influenza A & B (PCR) (Negative) Discharge Plan Departure Patient Disposition: Admitted as Observation Clinical Impression: Cellulitis of lower leg, Weakness Anemia Qualifiers: Anemia type: due to chronic kidney disease Chronic kidney disease stage: stage 4 (severe) Qualified Code(s): N18.4 - Chronic kidney disease, stage 4 (severe) Discharge Date/Time: 06/07/18 21:37 Interventions: ED Discharge Assessment Last Done: 06/07/18 21:36 Admit Date/Time: 06/07/18 21:10 Admit Provider: Tyree Mcgregor <Miroslava Rodriguez DO - Last Filed: 06/08/18 02:27> Cosign ED Attending Cosfadyature Attestation: I was immediately available in the department for consultation. Documentation has been reviewed. I agree with assessment and plan. The patient has failed outpatient treatment. He has had multiple falls low- grade fever with increasing leukocytosis. He is diabetic possibly noncompliant as well. This time recommend inpatient stay.
[2018-06-07 19:28] LABS: Add Manual Diff / Slide Review NO; Basophils Absolute Auto 100 /uL (0-100); Basophils Percent Auto 0.4 % (0-2); Eosinophils Absolute Auto 100 /uL (0-450); Eosinophils Percent Auto 0.6 % (2-4); Hematocrit 23.9 % (41-53); Hemoglobin 7.6 g/dL (13.5-17.5); Lymphocytes Absolute Auto 700 /uL (1100-4500); Mean Corpuscular Hemoglobin 32.3 PG (26-34); Monocytes Absolute Auto 1300 /uL (0-900); Monocytes Percent Auto 7.7 % (3-14); Neutrophils Absolute Auto 15200 /uL (1500-7000); Neutrophils Percent Auto 87.3 % (50-75); Platelet Count 292 X10^3/uL (150-400); Red Blood Cell Count 2.36 X10^6/uL (4.5-5.9); Red Cell Distribution Width 14.3 % (11.6-14.8); White Blood Cell Count 17.4 X10^3/uL (4.5-11.0)
[2018-06-07 19:31] LABS: INR 1.1 (0.9-1.3); Prothrombin Time 12.2 SECONDS (10.1-12.7)
[2018-06-07 19:34] LABS: PTT Partial Thromboplastin Tim 32 SECONDS (26.4-36.2)
[2018-06-07 19:36] LABS: Alanine Aminotransferase 22 IU/L (21-72); Albumin 3.3 g/dL (3.5-5.0); Albumin Globulin Ratio 1.2 (1.0-2.8); Alkaline Phosphatase 85 U/L (38-126); Aspartate Aminotransferase 13 IU/L (17-59); BUN Creatinine Ratio 18.8 (6-22); Bilirubin Total 0.4 mg/dL (0.2-1.3); Blood Urea Nitrogen 30 mg/dL (9-20); Calcium 7.9 mg/dL (8.4-10.2); Carbon Dioxide 25 mmol/L (22-32); Chloride 99 mmol/L (98-107); Estimated Glomerular Filt Rate 43.5 mL/min (>60); Ethanol (ETOH) < 10 mg/dL; Globulin 2.7 g/dL (1.7-4.1); Glucose 174 mg/dL (80-110); HEMOLYSIS < 15 (0-50); Potassium 4.3 mmol/L (3.4-5.1); Sodium 134 mmol/L (137-145)
[2018-06-07 19:48] LABS: Influenza A and B by PCR Rapid Negative (Negative)
[2018-06-07 21:14] LABS: RBC Urine None Seen (0-5/HPF)
[2018-06-07] MEDS: cefTRIAXone 1,000 MG in DEXTROSE 5 % IN WATER 50 ML 100 ML IV (21:16)
[2018-06-07 21:22] LABS: Appearance Urine UA CLEAR; Bilirubin Urine UA NEGATIVE (NEGATIVE); Color Urine UA YELLOW; Glucose Urine UA NEGATIVE (Negative); Ketones Urine UA NEGATIVE (NEGATIVE); Leukocyte Esterase Urine UA 2+ (NEGATIVE); Nitrite Urine UA NEGATIVE (Negative); Occult Blood Urine UA NEGATIVE (Negative); Protein Urine UA 1+ (Negative); Specific Gravity Urine UA 1.015 (1.000-1.035); Urobilinogen Urine UA 0.2 E.U./dL (0.2)
[2018-06-07 21:30] LABS: Bacteria Urine Few (2-10); Culture Indicated Urine Specimen Cultured; WBC Urine 30-100/HPF (0-5/HPF)
[2018-06-08] VITALS (10 sets, daily range): BP systolic 133–152; BP diastolic 62–74; PULSE 70–85; RESP 18–22; TEMP 36.4–38.4; O2SAT 93–96
--- NOTE | 2018-06-08 00:58 | PC.NURSE ---
Spoke with Dr. Mcgregor and informed him that pt came to floor and had no orders placed, pt had a fever of 101.1 F, and pt is on CIWA protocol and has no orders for Ativan. Dr Mcgregor ordered this nurse to place order for NS at 100/hr, Tylenol, and Ativan per protocol.
[2018-06-08] MEDS: SODIUM CHLORIDE 0.9% FLUSH 10 ML IV (01:14)
[2018-06-08] MEDS: SODIUM CHLORIDE 0.9% 1,000 ML 100 ML IV ×3 (01:14→20:35)
[2018-06-08] MEDS: ACETAMINOPHEN 325 MG TABLET 650 MG PO (01:21)
[2018-06-08] MEDS: LORazepam 2 MG/ML SYRINGE IV (01:22)
--- NOTE | 2018-06-08 01:59 | PC.NURSE ---
EXERCISE PHYSIOLOGIST note: patient was calling out. Wanted to put his legs on the floor, reminded him he was in the hospital, and in a hospital bed. I am? How did I get here? When did I get here? I'm bored. He said this while his eyes were closed. He continues to call out for staff, reminded him to use the call light that is in his hand.
--- NOTE | 2018-06-08 08:53 | PM.HP.1 ---
History of Present Illness Date Patient Seen: 06/08/18 Time Patient Seen: 08:07 Chief complaint: GLF Narrative: Patient 67-year-old male with long complicated medical history who had a fall with after several days of increasing weakness at home. No injury just kind of slid out of his chair but was unable to get up her medics came found him to be weak slightly confused and off febrile with. Patient has been battling cellulitis of his lower extremities as well as chronic spinal cord injury and diabetes renal failure anemia. Patient brought to the emergency room and found to have a hematocrit of 23 for renal function did possible urinary tract infection and overall severely weak. This morning he is still quite groggy and weak. Patient has long history of alcoholism as well the Lane denies drinking he is definitely somewhat sedated this morning. Alcohol level was less than 10 last night. Patient has a very poor so show economic situation where he lives alone in a trailer and has definite troubles with alcohol very little opportunity because of his many medical problems for him to engage in much by way of activity. Nonhealing leg ulcers under the care of hospice on hospital wound care showing some improvement will have them consult while the patient is here patient denies chest pain or significant shortness of breath abdominal pain headache acute increase in neurologic change. Patient also has chronic urinary retention and UA seems consistent with an UTI at this point which could because of his fever. His chest x-ray in ER showed no acute pulmonary disease Patient History Medical History Anemia associated with chronic renal failure (Chronic) Symptomatic anemia (Chronic) GI bleed (Resolved) Diabetes type 2, controlled (Chronic) Alcoholism (Acute) Chronic kidney disease, stage 4 (severe) (Chronic) Depression (Chronic) Hypertension (Chronic) Hyperparathyroidism (Chronic) Chronic pain (Chronic) Duodenal ulcer (Acute) Left leg pain (Chronic) Gout, arthropathy (Chronic) History of cervical fracture (Resolved) Family & Social History Social History: household members family,friend(s),other Prior Living Arrangements House Safety & Behavioral: Feels Safe in Current Yes Environment Been Physically Hurt or No Threatened By a Person Suicidal Ideation Description None Suicide Plan Description No Plan Tobacco & Substance use: Smoking Status Former smoker alcohol intake current alcohol intake frequency 3 or more drinks per day Substance Use Type does not use Meds Home Medications Medication Instructions Recorded Confirmed Type citalopram 40 mg PO DAILY 12/25/17 06/07/18 History furosemide 160 mg PO DAILY 12/25/17 06/07/18 History glimepiride 1 mg PO DAILY 03/22/18 06/07/18 History doxycycline hyclate 100 mg PO BID #20 cap 05/19/18 06/07/18 Rx doxazosin 4 mg PO BEDTIME 06/07/18 06/07/18 History doxycycline monohydrate 100 mg PO BID 06/07/18 06/07/18 History duloxetine 30 mg PO DAILY 06/07/18 06/07/18 History etodolac 400 mg PO BID 06/07/18 06/07/18 History glipizide 5 mg PO DAILY 06/07/18 06/07/18 History lorazepam 0.5 mg PO BID-TID PRN 06/07/18 06/07/18 History Allergies Allergy/AdvReac Type Severity Reaction Status Date / Time latex Allergy Mild IRRITATION Verified 03/22/18 14:53 Sulfa (Sulfonamide AdvReac Mild N&V 1HOUR Verified 03/22/18 14:53 Antibiotics) AFTER RX, THINKS IT IS RELATED Review of Systems Review of Systems Patient groggy confused and weak. Able to spontaneously move extremities with instruction. Lying in bed sleeping is no tremor is. Denies headache denies nausea does complain of diffuse weakness No sinus pain or sore throat Denies chest pain or heart rate increase significant shortness of breath Denies cough or wheezing or shortness of breath Denies abdominal pain nausea or vomiting or CVA area pain Diffuse musculoskeletal weakness secondary to his spinal injury distant Psychiatric is status consists of depression alcohol abuse and chronic pain Exam Vital Signs (past 8 hours): - 06/08/18 01:21 06/08/18 01:58 06/08/18 01:59 Temperature 101.1 F H 98.4 F 98.4 F Pulse Rate Respiratory Rate 06/08/18 06:00 Temperature Pulse Rate 85 Respiratory Rate 18 Oxygen Delivery Method Room Air Oxygen Flow Rate 0 Narrative Exam Narrative: Groggy and sleepy this morning but arousable with the appropriate and clear answers PERRLA EOMs intact Neck without mass Lungs with some slight mucousy some sounds but overall clear mode yeah A cardiac shows right exam shows regular rate and rhythm 1+ dependent edema Abdomen nontender no hepatosplenomegaly or mass abdomen is obese Back shows no CVA area pain he has decreased range of motion and back in the neck and back pain in the neck area and low back area with palpation evidence of old surgeries Decreased sensation and motor strength in lower extremities to greater than upper extremities Flat affect Objective Labs Result Diagrams: 06/07/18 19:05 06/07/18 19:05 Labs: Laboratory Results - last 24 hr 06/07/18 06/07/18 06/07/18 19:05 19:05 19:05 WBC 17.4 H RBC 2.36 L Hgb 7.6 L Hct 23.9 L MCV 101.0 H MCH 32.3 MCHC 32.0 RDW 14.3 Plt Count 292 Neut % (Auto) 87.3 H Lymph % (Auto) 4.0 L [place] % (Auto) 7.7 Eos % (Auto) 0.6 L Baso % (Auto) 0.4 Neut # (Auto) 14517 H Lymph # (Auto) 700 L [place] # (Auto) 1300 H Eos # (Auto) 100 Baso # (Auto) 100 PT 12.2 INR 1.1 APTT 32 Sodium Potassium Chloride Carbon Dioxide BUN Creatinine Estimated GFR BUN/Creatinine Ratio Glucose Lactate Calcium Total Bilirubin AST ALT Alkaline Phosphatase Total Protein Albumin Globulin Albumin/Globulin Ratio Procalcitonin 0.10 Urine Color Urine Appearance Urine pH Ur Specific [place] Urine Protein Urine Glucose (UA) Urine Ketones Urine Occult Blood Urine Nitrate Urine Bilirubin Urine Urobilinogen Ur Leukocyte Esterase Urine RBC Urine WBC Urine Bacteria Ur Culture Indicated? Ethyl Alcohol Influenza A & B (PCR) 06/07/18 06/07/18 06/07/18 19:05 19:05 19:05 WBC RBC Hgb Hct MCV MCH MCHC RDW Plt Count Neut % (Auto) Lymph % (Auto) [place] % (Auto) Eos % (Auto) Baso % (Auto) Neut # (Auto) Lymph # (Auto) [place] # (Auto) Eos # (Auto) Baso # (Auto) PT INR APTT Sodium 134 L Potassium 4.3 Chloride 99 Carbon Dioxide 25 BUN 30 H Creatinine 1.60 H Estimated GFR 43.5 L BUN/Creatinine Ratio 18.8 Glucose 174 H Lactate 2.0 Calcium 7.9 L Total Bilirubin 0.4 AST 13 L ALT 22 Alkaline Phosphatase 85 Total Protein 6.0 L Albumin 3.3 L Globulin 2.7 Albumin/Globulin Ratio 1.2 Procalcitonin Urine Color Urine Appearance Urine pH Ur Specific [place] Urine Protein Urine Glucose (UA) Urine Ketones Urine Occult Blood Urine Nitrate Urine Bilirubin Urine Urobilinogen Ur Leukocyte Esterase Urine RBC Urine WBC Urine Bacteria Ur Culture Indicated? Ethyl Alcohol < 10 Influenza A & B (PCR) Negative 06/07/18 21:05 WBC RBC Hgb Hct MCV MCH MCHC RDW Plt Count Neut % (Auto) Lymph % (Auto) [place] % (Auto) Eos % (Auto) Baso % (Auto) Neut # (Auto) Lymph # (Auto) [place] # (Auto) Eos # (Auto) Baso # (Auto) PT INR APTT Sodium Potassium Chloride Carbon Dioxide BUN Creatinine Estimated GFR BUN/Creatinine Ratio Glucose Lactate Calcium Total Bilirubin AST ALT Alkaline Phosphatase Total Protein Albumin Globulin Albumin/Globulin Ratio Procalcitonin Urine Color Yellow Urine Appearance Clear Urine pH 5.0 Ur Specific [place] 1.015 Urine Protein 1+ H Urine Glucose (UA) Negative Urine Ketones Negative Urine Occult Blood Negative Urine Nitrate Negative Urine Bilirubin Negative Urine Urobilinogen 0.2 Ur Leukocyte Esterase 2+ H Urine RBC None seen Urine WBC 30-100/hpf H Urine Bacteria Few (2-10) H Ur Culture Indicated? Specimen cultured Ethyl Alcohol Influenza A & B (PCR) Assessment & Plan Assessment & Plan narrative: Assessment 1. A ground level fall with weakness and is fever suggestive of infection possible sepsis. Will admit patient to get further cultures and initiate broad-spectrum antibiotic coverage urine was suggestive of UTI Assessment 2. Chronic renal failure as Santana stable at this point will continue with appropriate hydration and monitoring Assessment 3. Anemia patient's hematocrit down to 23 with hemoglobin of 7.4. Does not appear to be bleeding will monitor serial counts and will have close eye on his renal function since I think that is the primary cause of his anemia Assessment 4. Neurologic compromise from spinal C-spine spinal cord injury in a fall while intoxicated this many years ago. I do not think that I see evolution of that neurologic deficit at this point will continue to monitor and scans if we have more focal findings as he awakens Assessment 5. Depression patient is chronically depressed on 2 medications for this at this point. Has very limited outpatient resources to try to get ongoing care with Psychiatry. Will continue with antidepressants at this point Assessment 6 hypertension blood pressure stable at this point will continue to watch with his current medications on board Assessment 7 chronic leg ulcers the patient has been seeing outpatient wound care will have them follow up with him while he is here. Assessment 8 patient has chronic pain and will try to get physical therapy occupational therapy use nonsteroidal anti-inflammatories and duloxetine for his pain management patient is not a candidate and for opiates could due to dependency issues Assessment 9. Alcohol dependency. Patient has had trouble with alcohol for a long time switch swears that he is only drinking 2 drinks a day and his alcohol level was not elevated significantly when he presented to the emergency room. Will watch this closely and initiate withdrawal protocol if he begins to look agitated or tremulous. Quality VTE Deep Vein Thrombosis/Pulmonary Embolism Present on Admission: No
[2018-06-08 09:14] LABS: Add Manual Diff / Slide Review NO; Basophils Absolute Auto 0 /uL (0-100); Basophils Percent Auto 0.2 % (0-2); Eosinophils Absolute Auto 100 /uL (0-450); Eosinophils Percent Auto 0.5 % (2-4); Hematocrit 23.1 % (41-53); Hemoglobin 7.5 g/dL (13.5-17.5); Lymphocytes Absolute Auto 900 /uL (1100-4500); Lymphocytes Percent Auto 4.3 % (25-40); Mean Corpuscular HGB Conc 32.4 % (30-36); Mean Corpuscular Volume 101.7 fL (80-100); Monocytes Absolute Auto 2000 /uL (0-900); Monocytes Percent Auto 9.8 % (3-14); Neutrophils Absolute Auto 17400 /uL (1500-7000); Neutrophils Percent Auto 85.2 % (50-75); Platelet Count 257 X10^3/uL (150-400); Red Blood Cell Count 2.27 X10^6/uL (4.5-5.9); Red Cell Distribution Width 14.1 % (11.6-14.8); White Blood Cell Count 20.4 X10^3/uL (4.5-11.0)
[2018-06-08] MEDS: CITALOPRAM 20 MG TABLET 40 MG PO (09:48)
[2018-06-08] MEDS: DULOXETINE 30 MG CAPSULE PO (09:48)
[2018-06-08] MEDS: ENOXAPARIN 30 MG/0.3 ML SYRINGE SUBCUT (09:49)
[2018-06-08] MEDS: FUROSEMIDE 40 MG TABLET 160 MG PO (09:50)
[2018-06-08] MEDS: NAPROXEN 250 MG TABLET 500 MG PO ×2 (09:50→20:32)
[2018-06-08] MEDS: glipiZIDE 5 MG TABLET PO (09:50)
--- NOTE | 2018-06-08 11:45 | PC.NURSE ---
Addendum entered by Mariluz Gurrola R.N. 06/08/18 14:42: MS - pt req back bed, slowly stood w/fww, pt has difficulty is lifting his r foot from floor, general weakness, x2 person tsf back to bed w/alarm set. Original Note: Addendum entered by Mariluz Gurrola R.N. 06/08/18 13:35: PSYCH/SS - pt sister in and met with Melba SANCHES, pt states he was beginning to feel anxious, does continue to doze at times, states I need some of that ativan, given snack and 0.5mg po ativan. Original Note: AM NOTE - pt lightly snoring, awakens easily, incont urine and had removed his tele, oriented to self, June, knew his age and birthdate but could not remember where he was or what happened, reoriented to hospital, yudy care performed, repositioned, did not eat breakfast but later am sat up and filemon po juice, dsg r foot 2nd toe cdi, allevyn dsg applied yesterday by wound clinic cdi.
--- NOTE | 2018-06-08 12:50 | PT.IIE ---
Surgical History (Last Reviewed 05/19/18 @ 20:45 by Miroslava Rodriguez DO) History of colectomy (Resolved) Medical History (Last Reviewed 06/07/18 @ 19:17 by Serina Mott PA-C) Anemia associated with chronic renal failure (Chronic) Symptomatic anemia (Chronic) GI bleed (Resolved) Diabetes type 2, controlled (Chronic) Alcoholism (Acute) Chronic kidney disease, stage 4 (severe) (Chronic) Depression (Chronic) Hypertension (Chronic) Hyperparathyroidism (Chronic) Chronic pain (Chronic) Duodenal ulcer (Acute) Left leg pain (Chronic) Gout, arthropathy (Chronic) History of cervical fracture (Resolved) Physical Therapy Inpatient Evaluation/Re-Eval M1 PT/OT-IP Prior Functional Status Start: 06/08/18 12:29 Freq: NEEDED Status: Active Protocol: Document 06/08/18 12:00 (Rec: 06/08/18 12:49 [email or web address]) Medical Review Prior Functional Status Medical History Reviewed Yes Diet/Fluid Consistency Regular Communication no deficits noted. Able to make needs known Mobility and Gait Pt inconsistent with responding to questions: eyes mostly closed while answering questions. Pt used a 4WW for mobility at all times and basically home bound. Activities of Daily Living and IADL's Pt has difficulty doing ADLs. He stated I've been voiding in bed and have not had a shower for days. His roommates had to help him as needed. Social History Household Members family friend(s) other Living Arrangements House Number of Floors (Floors) Two Floors Number of Stairs To Enter/Railing? RAMP Home Environment Ramp Home Equipment Four Wheel Walker Additional Social History Comment Per previous admisstion note, Pt lives in a 2 level house but primarily stay on main floor. The other level is the basement for laundry. His roommate is only able to assist him for laundry. Pt has been going to outpatient wound care clinic at with his sister from [place] to help. Pt reports he has not been recovering well since d/c from and getting weaker. Pt fell onto the floor twice and stted I dont know why i fell. M2 PT-IP Current Condition Start: 06/08/18 12:29 Freq: NEEDED Status: Active Protocol: Document 06/08/18 12:00 HH (Rec: 06/08/18 12:49 [email or web address]) Physical Therapy Current Condition Current Condition Evaluation Date 06/08/18 Treatment Diagnosis GLF, increased weakness, fever , impaired gait and activity tolerance. Onset Date 06/07/18 Weight Bearing Status Weight Bearing Status Weight Bear as Tolerated M3 PT-IP Subjective Start: 06/08/18 12:29 Freq: NEEDED Status: Active Protocol: Document 06/08/18 12:00 (Rec: 06/08/18 12:49 [email or web address]) Subjective Physical Therapy Visit Type Type Initial Evaluation Visit Start Time 12:00 Visit Stop Time 12:30 Total Visit Minutes 30 Notes Per nursing staff, pt has been very drowsy and has not been getting OOB since admission. Number of WOOL AND PELT GRADER Visits 0 Physical Therapy Visit Comments Patient Comments I still feel weak but im willing to sit on chair. Patient Goals To return home To be able to amb long distance again. Therapy Pain Assessment Pain Present Pain Present Denied Pain M4 PT-IP Mobility and Gait Start: 06/08/18 12:29 Freq: NEEDED Status: Active Protocol: Document 06/08/18 12:00 (Rec: 06/08/18 12:49 [email or web address]) PT-Bed Mobility Assessment Rolling Type of Rolling Roll to Left Level of Assist Moderate Assistance 1 Person Assistance Supine to Sit Supine to Sit Moderate Assistance 2 Person Assistance Head of Bed Elevated Bedrails Sit to Supine Sit to Supine Moderate Assistance 2 Person Assistance Head of Bed Elevated Bedrails Scooting Scooting to Edge of Bed Moderate Assistance PT-Transfer Assessment Sit to and From Stand Sit to and from Stand Minimal Assistance 1 Person Assistance Equipment Transfer Assistive Device Gait Belt Front Wheeled Walker Orthotic/Prosthetic Devices or Brace: No Transfers Transfer Destination Bed Chair Transfer Technique Stand Pivot Transfer Ability Level of Assist Minimal Assistance Comments Mobility Comments Pt's BP in supine 144/71 HR 99 Pt's BP post transfer to chair 127/66 HR 85 Pt was in bed upon assessment, very drowsy and answered questions with eyes half way closed. But he agreeable to mobilize with PT. Pt sat at EOB on L side from elevated HOB 40 degrees and required mod A for supine to sit and scooting forward. Pt tends to hold his breath during exertion. He then stood up and stand pivot transfer to bedside chair on his left side . He showed poor eccentric control and he stated my balance is going off and i couldnt feel my feet too much with the ground. Pt appeared fatigue afterwards. Gait Assessment Comments Gait Comments did not attempt due to fatigue Stair Climbing Assessment Comments Stair Climbing Comments did not attempt due to fatigue PT-Balance Assessment Sitting Balance and Reactions Static Sitting Balance Ability Normal Dynamic Sitting Balance Ability Normal Standing Balance and Reactions Static Standing Balance Ability Good Dynamic Standing Balance Ability Fair Device Used FWW M5 PT-IP Objective Assessments Start: 06/08/18 12:29 Freq: NEEDED Status: Active Protocol: Document 06/08/18 12:00 (Rec: 06/08/18 12:49 [email or web address]) Orientation Orientation/Cognition Level of Alertness Alert Orientation Name Age Birthday Month Date Year Day of Week Place Situation Language Function Ability No Deficits Noted Safety Awareness Decreased Safety Awareness Memory Description No Deficits Noted Gross Range of Motion Upper Extremity ROM Assessment Within Functional Limits Lower Extremity ROM Assessment Within Functional Limits Strength Upper Extremity Strength Assessment Within Functional Limits Lower Extremity Strength Assessment Bilaterally Impaired Comments Strength Comments 3+/5 bilaterally LEs strength grossly Coordination Assessment Gross Coordination Gross Coordination WNL Sensation Assessment Sensation Gross Sensation Right LE Impaired Left LE Impaired Light Touch Impaired Proprioception (Position) Impaired Muscle Tone Muscle Tone WNL Yes M6 PT-IP Treatment Start: 06/08/18 12:29 Freq: NEEDED Status: Active Protocol: Document 06/08/18 12:00 (Rec: 06/08/18 12:49 [email or web address]) Physical Therapy Treatment Education Education Provided Safety M7 PT-IP Assessment and Plan Start: 06/08/18 12:29 Freq: NEEDED Status: Active Protocol: Document 06/08/18 12:00 (Rec: 06/08/18 12:49 [email or web address]) PT Summary Assessment and Plan Potential Rehabilitation Potential Good Status of Condition at Evaluation Evolving Summary Impairments ROM Strength Balance Sensation Tone Cognition Bed Mobility Transfers Gait Activity Tolerance Assessment Summary Pt is a 67yo male admitted to s/p GLF x 2 yesterday with increased weakness noted. Upon assessment, pt was very drowsy to questions but he was more alert and awake once he started doing functional activties. Pt required mod A for bed mob and min A for trasnfers. There's noticeable BP drop between supine and post chair transfer. Pt also c /o fatigue after who cannot filemon BID at this point. Pt is far from baseline at this point and not safe to d/c home . Pt will benefit from d/c to SNF to improve his overall mobility to address his current medical needs and assistance needed for basic self care. Goals Bed Mobility Goal Standby Assistance Transfer Goal Standby Assistance Front Wheeled Walker Gait Goal Standby Assistance Front Wheel Walker Gait Distance 100 Days to Meet Goals 10 Frequency of Treatment Frequency Of Treatment Once a Day Treatment Plan Physical Therapy Treatment Plan Bed Mobility Training Transfer Training Gait Training Therapeutic Exercise Balance Retraining Discharge Planning Other Recommendations and Next Treatment check VSS for OHTN Focus bed mob, transfer and gait as filemon Recommendations To Nursing Amount of Assist Needed 1 Person Assist Discharge Recommendations PT Discharge Recommendations SNF Rehab Other Discharge Recommendations Pt will benefit from d/c to SNF to improve his overall mobility to address his current medical needs and assistance needed for basic self care.
[2018-06-08] MEDS: LORazepam 0.5 MG TABLET PO (13:32)
--- NOTE | 2018-06-08 15:55 | OT.IP.TRT ---
Occupational Therapy Treatment Note M3 OT- IP Subjective and Pain Start: 06/08/18 15:54 Freq: Status: Active Protocol: Document 06/08/18 15:54 [facility] (Rec: 06/08/18 15:55 [facility] [id number]) OT- Subjective Occupational Therapy Visit Type Type Patient Unavailable Notes Pt asleep and to check on pt tomorrow for OT eval . In addition to double check blood level hct and hgb as running low prior to doing OT eval.
--- NOTE | 2018-06-08 16:22 | CM.IDA ---
Initial DCP Assessment Note: Pt is a 67 yo resident of [place], admitted now after a GLF, found to have UTI, anemia, w/ chronic leg ulcers, chronic pain, chronic renal failure and h/o ETOH dependance. Pt w/multiple visits to the ER in the last 6 mo for falls. Payer: Medicare/Medicaid. Reviewed chart. Met w/pt briefly this morning, explained role. Pt pleasant, a little sleepy. Pt on CIWA protocal. Pt explains he lives in a duplex and has two roommates that pay rent. Pt says I've cut way back (in drinking) and drinks approx 3 drinks daily of vodka (one shot per drink). Reviewed SNF as a DCP option and pt agreeable. Then discussed DCP w/ pt's sister Roro Carlos# [phone], w/pt's permission. Roro lives in [facility] she and dtr are trying to determine the safest terminal press operator care plan for pt. Roro has coordinated w/ [facility] and pt qualifies for either the TSOA program, w/ no out of pocket expense (20 hrs monthly caregiving), or the SONIA program w/$300 monthly participation fee; It's likely pt could qualify for up to 100+, hours, per [facility]. TSOA cgs were scheduled to start x2 weekly next week . This TODDLER NANNY strongly encouraged Roro to consider SONIA program on pt's behalf. Roro has been managing pt's bills more often and she might be able to discuss this cost/benefit w/pt soon. Explained that SONIA can be transitioned into funding for terminal press operator care. Reviewed DCP options w/ Roro, PT recommending SNF (see initial PT assess note, very thorough) pt is far from functional baseline. Reviewed SNF choice list. Roro requests [facility] and encourages this TODDLER NANNY to review options w/dtr , the DPOA at this time. Placed call to dtr , she appreciated this TODDLER NANNY's connection w/her Aunt Roro and explained they are working together on all coordination on pt's behalf. ruddy would like referral to [facility], b/u choice unknown at this time. Dtr remains primary contact in coordinating DCP. Discussed referral w/ Tammi Reese at [facility]. She was unable to do bedside assessment w/pt today, she will be following over the next 24-48hrs and will track notes. F/u needed between Tammi and NOELLE team this w/e. Tammi cell P#[phone]. PASRR completed to include home meds: Celexa and Cymbalta. NOELLE Stone Discharge Planning/Care Management Advanced directive, confirm from FAMILY Start: 06/07/18 22:41 Freq: Q24H Status: Active Protocol: Document 06/08/18 09:00 NEE (Rec: 06/08/18 12:00 NEE [id number]) Advance Directive, confirm on record Time 11:30 Person contacted wild Copy received No CM Discharge Assessment Start: 06/08/18 16:20 Freq: Status: Active Protocol: Document 06/08/18 16:20 CARMITA (Rec: 06/08/18 16:22 JW [id number]) Discharge Planning Assessment Assigned Implementation Engineer NOELLE Caro DPOA/Assigned Designee Name Adrien Wood dtr Contact Information [phone] Advance Directives? Yes: Health care directive/ DPOA for health care Advance Directives on File No History Provided By Patient Family Member Medical Record Prior Living Arrangements House Household Members friend(s) other Type of transporation used prior to Relies on Others admit Independent with ADL's Yes Is patient alert and oriented? Yes Discharge Plan Long Term Facility Referrals Initiated Long Term Additional Comment Referral to [facility] made today. PASRR completed. Medicare Choice List Provided Yes Whiteboard Updated in Patient Room with Yes name and ext. # of Implementation Engineer Review Status In Process
[2018-06-08] MEDS: DOXAZOSIN 4 MG TABLET PO (20:33)
[2018-06-08] MEDS: CEFTRIAXONE 1 GM/50 ML FROZ.PIGGY IV (20:35)
--- NOTE | 2018-06-08 20:51 | PC.NURSE ---
edel shift- assumed care of pt from outgoing shift. Pt asleep at this time arouses to voice. pt ate dinner. cooperative with nursing assessments and staff. PT oriented. Pt denied pain. Pt able to feed self. Pt bed alarm on. incontinent and changed. pt states he knows when he needs to pee but doesn't call for assistance. encouraged to call. seizure pads on side rails. suction at bedside. bed alarm on. will continue to monitor.
[2018-06-09] VITALS (13 sets, daily range): BP systolic 119–136; BP diastolic 55–69; PULSE 77–84; RESP 16–22; TEMP 36.3–37.2; O2SAT 91–98
[2018-06-09] MEDS: SODIUM CHLORIDE 0.9% 1,000 ML 100 ML IV ×2 (07:04→17:32)
[2018-06-09] MEDS: CITALOPRAM 20 MG TABLET 40 MG PO (09:45)
[2018-06-09] MEDS: DULOXETINE 30 MG CAPSULE PO (09:45)
[2018-06-09] MEDS: glipiZIDE 5 MG TABLET PO (09:45)
[2018-06-09] MEDS: ENOXAPARIN 30 MG/0.3 ML SYRINGE SUBCUT (09:45)
[2018-06-09] MEDS: NAPROXEN 250 MG TABLET 500 MG PO ×2 (09:46→21:36)
[2018-06-09] MEDS: FUROSEMIDE 40 MG TABLET 160 MG PO (09:54)
--- NOTE | 2018-06-09 10:58 | CM.DPC ---
Addendum entered by NOELLE Vinson 06/09/18 11:14: ADD: Clarification by UR RN stating that pt has been Inpt Status since time of admit on 06/07/18 and would therefore have his Medicare 3 night qualifying stay after tonight. BF Original Note: DCP Cont: Per animal hospital clerk, pt still anemic and white count has increased and likely not medically stable for d/c today. Referral had been made to [facility] and they are reviewing to confirm if they can accept pt at d/c. SW called Tammi, [facility] admissions, and confirmed that she attempted bedside assessment with pt yesterday (Mon) but pt was too drowsy and so she will continue to follow and will attempt another bedside assessment. Pt recently was at [facility] for rehab and she anticipates they can likely accept but she will need to confirm this. Pt was changed from OBS Status to Inpt Status on 06/08/18 and therefore the earliest he would qualify for Medicare SNF coverage would be Monday06/11/18. Pt's current CIWA scores have been mild between 3-6 range. Pt has been pleasant and cooperative with care. Pt was also discharged to [facility] in Mar 2018 after a stay in ICU here at [facility]. Plan: SW to follow closely for further [facility] review to determine if they can accept pt at d/c prior to likely return home to his duplex with roommates and family helping to coordinate new [facility] which pt has been assessed and qualifies for and likely need of LTC in the near future. NOELLE Vinson
--- NOTE | 2018-06-09 12:18 | PC.NURSE ---
Addendum entered by Radha Baca R.N. 06/09/18 15:34: Labs drawn, and orders for follow up labs 06/10. Pt CIWA 2, 3. Polite and cooperative with care. NS infusing to PIV, UOP borderline low, Dr Quintana aware and IVF continued. CKD3. Original Note: AM shift Pt has been anemic, without labs this AM, call into Dr Quintana for update and to see if new orders. Await call back.
[2018-06-09 13:21] LABS: Add Manual Diff / Slide Review NO; Basophils Absolute Auto 0 /uL (0-100); Basophils Percent Auto 0.3 % (0-2); Eosinophils Absolute Auto 200 /uL (0-450); Eosinophils Percent Auto 1.7 % (2-4); Hematocrit 23.2 % (41-53); Hemoglobin 7.4 g/dL (13.5-17.5); Lymphocytes Absolute Auto 600 /uL (1100-4500); Mean Corpuscular HGB Conc 31.6 % (30-36); Mean Corpuscular Hemoglobin 32.4 PG (26-34); Mean Corpuscular Volume 102.2 fL (80-100); Monocytes Absolute Auto 800 /uL (0-900); Monocytes Percent Auto 5.7 % (3-14); Neutrophils Absolute Auto 12100 /uL (1500-7000); Neutrophils Percent Auto 88.3 % (50-75); Platelet Count 256 X10^3/uL (150-400); Red Blood Cell Count 2.27 X10^6/uL (4.5-5.9); Red Cell Distribution Width 14.3 % (11.6-14.8); White Blood Cell Count 13.8 X10^3/uL (4.5-11.0)
[2018-06-09 13:29] LABS: Alanine Aminotransferase 17 IU/L (21-72); Albumin Globulin Ratio 1.1 (1.0-2.8); Alkaline Phosphatase 83 U/L (38-126); Aspartate Aminotransferase 13 IU/L (17-59); Bilirubin Total 0.3 mg/dL (0.2-1.3); Blood Urea Nitrogen 36 mg/dL (9-20); Calcium 7.7 mg/dL (8.4-10.2); Carbon Dioxide 25 mmol/L (22-32); Chloride 103 mmol/L (98-107); Estimated Glomerular Filt Rate 37.9 mL/min (>60); Globulin 2.7 g/dL (1.7-4.1); Glucose 138 mg/dL (80-110); HEMOLYSIS < 15 (0-50); Potassium 4.2 mmol/L (3.4-5.1); Sodium 136 mmol/L (137-145); Total Protein 5.7 g/dL (6.3-8.2)
--- NOTE | 2018-06-09 14:10 | PM.PN.1 ---
Subjective Date Patient Seen: 06/09/18 Time Patient Seen: 13:28 Interval history: Patient seems less weak and more alert this morning. Had a CIWA score of 9 yesterday and received benzodiazepine pains I think at least a couple of times through the day much less so today no tremor. Alcohol level was less than 10 when he came in. Still getting IV antibiotics that we do not have final culture results [place] on his urine. White count is still at 13,000 hematocrit still at 23 no evidence of bleeding that we can see abdomen nontender heart rate is normal sinus rhythm Social and family history patient's family history is positive for substance abuse. Also positive for coronary artery disease. Social history patient lives in a trailer have by himself with significant limitations in terms of his mobility from prior injuries and has had roommates who have not been good support systems or helpful for [place]. Exam Vital Signs (past 8 hours): - 06/09/18 07:30 06/09/18 07:59 06/09/18 09:50 Temperature 97.4 F L Pulse Rate 82 80 Respiratory Rate 18 Blood Pressure 119/61 122/55 L Pulse Oximetry 91 98 06/09/18 11:50 Temperature 97.4 F L Pulse Rate 84 Respiratory Rate 18 Blood Pressure 121/62 Pulse Oximetry 97 Oxygen Delivery Method Room Air Oxygen Flow Rate 0 Narrative Exam Narrative: Patient more alert today speaking clearly spontaneous movement seems symmetrical abdomen nontender PE are RLA EOMs intact Neck without mass Lungs clear to auscultation Cardiac exam shows regular rate rhythm without murmur S3 there is dependent edema Abdomen obese soft no hepatosplenomegaly or mass noted Back no overt skin breakdowns neuro patient has decreased strength and decreased sensation lower extremities and upper extremities to a lesser extent following 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 Psych patient is stable affect but also continues to go on up to drinking on a daily basis Objective Labs Result Diagrams: 06/09/18 13:09 06/09/18 13:09 Labs: Laboratory Results - last 24 hr 06/09/18 06/09/18 13:09 13:09 WBC 13.8 H RBC 2.27 L Hgb 7.4 L Hct 23.2 L MCV 102.2 H MCH 32.4 MCHC 31.6 RDW 14.3 Plt Count 256 Neut % (Auto) 88.3 H Lymph % (Auto) 4.0 L [place] % (Auto) 5.7 Eos % (Auto) 1.7 L Baso % (Auto) 0.3 Neut # (Auto) 49114 H Lymph # (Auto) 600 L [place] # (Auto) 800 Eos # (Auto) 200 Baso # (Auto) 0 Sodium 136 L Potassium 4.2 Chloride 103 Carbon Dioxide 25 BUN 36 H Creatinine 1.80 H Estimated GFR 37.9 L BUN/Creatinine Ratio 20.0 Glucose 138 H Calcium 7.7 L Total Bilirubin 0.3 AST 13 L ALT 17 L Alkaline Phosphatase 83 Total Protein 5.7 L Albumin 3.0 L Globulin 2.7 Albumin/Globulin Ratio 1.1 Assessment & Plan Assessment & Plan narrative: Assessment 1. Weakness and fever with a low impact fall to the floor in his apartment the day prior to admission. [place] might have a urinary tract infection negative workup for acute coronary event or arrhythmia will continue with IV antibiotics given his high white count and do not have it this sensitivities back yet on his urine culture. Blood culture still being processed Assessment to chronic renal failure. BUN had been down to 1.6 but 1.8 today will continue IV fluids currently Assessment 3. Anemia patient's crit is stable at 23 no evidence of bleeding has been found but certainly the underlying assumption has been that his anemia was probably secondary to his chronic renal failure and low in throat erythropoietin with function. Assessment 4. Neurologic compromise no evolution of that her increased to suggest central brain damage of any sort with fall or from his diseases. I think this is mostly from his C-spine injury with spinal cord component of that with the limits of his ability to use arms and too much greater extent legs. Assessment 5 alcohol use patient has no required less lorazepam today and has CIWA scores only been 2-3 as opposed to over 9 yesterday 5th. Will continue watch and evaluate that. Assessment 6. Hypertension patient's blood pressure is good today will continue with current meds as they are Assessment 7. Patient has chronic leg ulcers and has been seen by wound care and will continue with their wound dressing. Quality VTE Deep Vein Thrombosis/Pulmonary Embolism Present on Admission: No
--- NOTE | 2018-06-09 14:31 | PT.IPTN ---
Physical Therapy Treatment Note M2 PT-IP Current Condition Start: 06/08/18 12:29 Freq: NEEDED Status: Active Protocol: Document 06/08/18 12:00 HH (Rec: 06/08/18 12:49 HH [email or web address]) Physical Therapy Current Condition Current Condition Evaluation Date 06/08/18 Treatment Diagnosis GLF, increased weakness, fever , impaired gait and activity tolerance. Onset Date 06/07/18 Weight Bearing Status Weight Bearing Status Weight Bear as Tolerated M3 PT-IP Subjective Start: 06/08/18 12:29 Freq: NEEDED Status: Active Protocol: Document 06/09/18 14:28 RCC (Rec: 06/09/18 14:31 RCC [id number]) Subjective Physical Therapy Visit Type Type Patient Refusal Notes Pt did not feel comfortable attempting mobility OOB this date. His Hgb is 7.4 and Hct 23.2 on this date, although MD report believes likely chronic renal failure vs active bleed. Pt did not want to mobilize today, stating that he was too weak to do much the day before. Will attempt PT tomorrow to mobilize pt if stable. Discharge Recommendations PT Discharge Recommendations SNF Rehab Other Discharge Recommendations Pt will benefit from d/c to SNF to improve his overall mobility to address his current medical needs and assistance needed for basic self care.
--- NOTE | 2018-06-09 14:53 | OT.IP.TRT ---
Occupational Therapy Treatment Note M3 OT- IP Subjective and Pain Start: 06/08/18 15:54 Freq: Status: Active Protocol: Document 06/09/18 14:52 CGR (Rec: 06/09/18 14:53 CGR [id number]) OT- Subjective Occupational Therapy Visit Type Type Administrative Note Notes Chart reviewed, pt with H&H of 7.5 & 23.5. Will defer on this date.
[2018-06-09] MEDS: PIPERACILLIN-TAZO 3.375 GM/50 ML FROZ.PIGGY IV ×2 (17:28→23:27)
--- NOTE | 2018-06-09 17:54 | PC.NURSE ---
Addendum entered by Violeta Wong R.N. 06/09/18 22:01: Pt resting at interval throughout evening. Denies discomfort. IVF continue as per orders. Condition remains essentially unchanged. Call light w/in reach/ bed alarm on for pt safety. Continue w/plan of care. Original Note: Pt watching TV. Denies discomfort, Lungs clear/diminished at bases SpO2 95% RA IV NS @ 100cc/hr via pump infusing into left hand w/o incidence. Denies any requests Call light w/in reach.
[2018-06-09] MEDS: DOXAZOSIN 4 MG TABLET PO (20:41)
[2018-06-09] MEDS: LORazepam 0.5 MG TABLET PO (20:47)
[2018-06-09] MEDS: ACETAMINOPHEN 325 MG TABLET 650 MG PO (23:27)
--- NOTE | 2018-06-09 23:43 | PC.NURSE ---
Addendum entered by Sommer Lundberg R.N. 06/10/18 06:04: Does complain of right shoulder, neck and leg pain; medicated with Tylenol. Original Note: Addendum entered by Sommer Lundberg R.N. 06/10/18 06:00: Patient slept most of shift. CIWA score remains 0. Used urinal during the night. Original Note: Patient is alert and oriented. Breath sounds with expiratory wheezing throughout. Has non productive, dry, intermittent cough. RA sat is 95%. HRR; on telemetry. Denies nausea. BT present and passing flatus but has not had BM since 06/06 and does not have any bowel meds ordered at this time. Has chronic urinary urgency and does use urinal but incontinent at times. Able to assist with moving in bed but states he has not been up due to overall weakness. Complains of neck, right shoulder and bilateral leg pain; medicated with Tylenol. Has chronic neuropathy from knee down. Has Allevyn dressings to bilateral LE which are intact with small amount luna drainage on each. Skin is pink/brown and flaky with several scabbed abrasions note on right LE. 2-3+ bilateral LE edema. CIWA is 0. Seizure pads on bed. Fall risk score is high and bed alarm is activated.
[2018-06-10] VITALS (14 sets, daily range): BP systolic 112–158; BP diastolic 52–82; PULSE 20–76; RESP 16–22; TEMP 36.3–36.9; O2SAT 96–100
[2018-06-10] MEDS: SODIUM CHLORIDE 0.9% 1,000 ML 100 ML IV (04:20)
[2018-06-10] MEDS: ACETAMINOPHEN 325 MG TABLET 650 MG PO ×2 (06:02→13:06)
[2018-06-10 06:26] LABS: Alanine Aminotransferase 16 IU/L (21-72); Albumin 2.8 g/dL (3.5-5.0); Alkaline Phosphatase 76 U/L (38-126); Aspartate Aminotransferase 16 IU/L (17-59); Bilirubin Total 0.4 mg/dL (0.2-1.3); Blood Urea Nitrogen 36 mg/dL (9-20); Calcium 7.6 mg/dL (8.4-10.2); Carbon Dioxide 23 mmol/L (22-32); Chloride 104 mmol/L (98-107); Estimated Glomerular Filt Rate 37.9 mL/min (>60); Globulin 2.8 g/dL (1.7-4.1); Glucose 90 mg/dL (80-110); HEMOLYSIS < 15 (0-50); Sodium 135 mmol/L (137-145); Total Protein 5.6 g/dL (6.3-8.2)
[2018-06-10 06:34] LABS: B Type Natriuretic Peptide < 100 (<100)
[2018-06-10 06:36] LABS: Add Manual Diff / Slide Review NO; Basophils Absolute Auto 0 /uL (0-100); Basophils Percent Auto 0.3 % (0-2); Eosinophils Absolute Auto 200 /uL (0-450); Eosinophils Percent Auto 2.7 % (2-4); Lymphocytes Absolute Auto 600 /uL (1100-4500); Lymphocytes Percent Auto 6.6 % (25-40); Mean Corpuscular HGB Conc 32.5 % (30-36); Mean Corpuscular Hemoglobin 32.7 PG (26-34); Mean Corpuscular Volume 100.9 fL (80-100); Monocytes Absolute Auto 800 /uL (0-900); Monocytes Percent Auto 9.3 % (3-14); Neutrophils Absolute Auto 6900 /uL (1500-7000); Neutrophils Percent Auto 81.1 % (50-75); Platelet Count 263 X10^3/uL (150-400); Red Blood Cell Count 2.15 X10^6/uL (4.5-5.9); Red Cell Distribution Width 14.3 % (11.6-14.8); White Blood Cell Count 8.5 X10^3/uL (4.5-11.0)
[2018-06-10 06:47] LABS: Hematocrit 21.7 % (41-53)
[2018-06-10] MEDS: glipiZIDE 5 MG TABLET PO (08:19)
[2018-06-10] MEDS: ENOXAPARIN 30 MG/0.3 ML SYRINGE SUBCUT (08:19)
[2018-06-10] MEDS: PIPERACILLIN-TAZO 3.375 GM/50 ML FROZ.PIGGY IV ×3 (08:19→23:40)
[2018-06-10] MEDS: NAPROXEN 250 MG TABLET 500 MG PO ×2 (08:19→22:14)
[2018-06-10] MEDS: FUROSEMIDE 40 MG TABLET 160 MG PO (08:20)
[2018-06-10] MEDS: CITALOPRAM 20 MG TABLET 40 MG PO (08:20)
[2018-06-10] MEDS: DULOXETINE 30 MG CAPSULE PO (08:20)
--- NOTE | 2018-06-10 10:12 | PM.PN.1 ---
Subjective Date Patient Seen: 06/10/18 Time Patient Seen: 09:41 Interval history: Patient feeling a little bit better this morning still weak and has his fixed neurologic lower extremity weakness secondary to spinal cord injury. Was found have a urinary tract infection that was Serratia species and resistant to most antibiotics. Switched to Zosyn which she is supposedly sensitive to and I think he looks a little bit better today white count is down from 13 down to 8. However he also had a drop in his hematocrit is with crit now down to 20. Not think he is acutely bleeding I think this has to do with his chronic renal failure no sign of bleeding bruising Lalita place no abdominal pain abdomen is nontender. because of that drop in hemoglobin and hematocrit to such low levels will transfuse 2 units think that may help patient get better quicker. As outpatient he is going to need Nephrology and evaluation as well as Hematology in all probability. We have recommended this before patient has not been compliant. Patient also having some issues with constipation and is taking oral fluids well at this point Patient family history with diabetes. Patient lives alone in a trailer some family and daughters who look in on him but is alone most of the time and has significant problem with alcohol is how he fell and damage to his C-spine with the spinal cord damage that that point leading to his extra extremity weakness and numbness. Exam Vital Signs (past 8 hours): - 06/10/18 06:00 06/10/18 08:09 06/10/18 08:15 Temperature 98.1 F 97.3 F L Pulse Rate 75 75 Respiratory Rate 22 20 Blood Pressure 121/52 L 112/62 Pulse Oximetry 96 96 96 Oxygen Delivery Method Room Air Oxygen Flow Rate 0 Narrative Exam Narrative: Sitting in bed speaking more clearly this morning less sedated PERRLA EOMs intact speech clear Neck without mass Lungs were clear with better inspiratory effort CV is shows regular rate and rhythm good pulses no murmur Abdomen obese but not nontender no rebound guarding bowel sounds are present there is no hepatosplenomegaly or masses Skin shows no breakdowns Extremities showed 1 to 2+ edema symmetrically with chronic skin breakdown which wound care is following Neuro shows decreased sensation strength in lower extremities worse so than upper extremities. Speech is clear Objective Labs Result Diagrams: 06/10/18 05:52 06/10/18 05:52 Labs: Laboratory Results - last 24 hr 06/09/18 06/09/1806/10/19 13:09 13:09 05:52 WBC 13.8 H 8.5 RBC 2.27 L 2.15 L Hgb 7.4 L 7.0 L Hct 23.2 L 21.7 L MCV 102.2 H 100.9 H MCH 32.4 32.7 MCHC 31.6 32.5 RDW 14.3 14.3 Plt Count 256 263 Neut % (Auto) 88.3 H 81.1 H Lymph % (Auto) 4.0 L 6.6 L [place] % (Auto) 5.7 9.3 Eos % (Auto) 1.7 L 2.7 Baso % (Auto) 0.3 0.3 Neut # (Auto) 50168 H 6900 Lymph # (Auto) 600 L 600 L [place] # (Auto) 800 800 Eos # (Auto) 200 200 Baso # (Auto) 0 0 Sodium 136 L Potassium 4.2 Chloride 103 Carbon Dioxide 25 BUN 36 H Creatinine 1.80 H Estimated GFR 37.9 L BUN/Creatinine Ratio 20.0 Glucose 138 H Calcium 7.7 L Total Bilirubin 0.3 AST 13 L ALT 17 L Alkaline Phosphatase 83 B-Natriuretic Peptide < 100 Total Protein 5.7 L Albumin 3.0 L Globulin 2.7 Albumin/Globulin Ratio 1.1 06/10/18 05:52 WBC RBC Hgb Hct MCV MCH MCHC RDW Plt Count Neut % (Auto) Lymph % (Auto) [place] % (Auto) Eos % (Auto) Baso % (Auto) Neut # (Auto) Lymph # (Auto) [place] # (Auto) Eos # (Auto) Baso # (Auto) Sodium 135 L Potassium 4.0 Chloride 104 Carbon Dioxide 23 BUN 36 H Creatinine 1.80 H Estimated GFR 37.9 L BUN/Creatinine Ratio 20.0 Glucose 90 Calcium 7.6 L Total Bilirubin 0.4 AST 16 L ALT 16 L Alkaline Phosphatase 76 B-Natriuretic Peptide Total Protein 5.6 L Albumin 2.8 L Globulin 2.8 Albumin/Globulin Ratio 1.0 Assessment & Plan Assessment & Plan narrative: Assessment 1. Weakness fever and fall leading to admission seems most consistent with urinary tract infection alcohol as a component of that as well urine cultures showing Serratia will adjust treatment Assessment 2. Chronic renal failure decreased creatinine clearance and creatinine at 1.8 Assessment 3. Anemia patient's hematocrit has dropped down close to 20 and hemoglobin is 7. Will transfuse 2 units packed red blood cells now and recheck labs in morning. I do not think patient is bleeding I think this is a consequence of poor renal function and be probably a component of poor nutrition think it be okay for outpatient evaluation of this to look at it again we have looked at it in the past. Assessment 4. Urinary tract infection with resistant Serratia species. Was not sensitive to the initial broad-spectrum antibiotic he was on and so we switched to Zosyn which it should be sensitive to by culture. Monitor appropriate dose for that in the setting of his renal function Assessment 5. Alcohol dependency hope to get patient to alcohol treatment following this admission. Has not had to use CIWA related sedation in the last day Assessment 6. Hypertension blood pressure today all the way down at 1:10 a.m.. I think that probably component of his low blood count. Will transfuse as noted Assessment 7. Constipation will use oral and rectal modalities to try to improve that. Assessment 8. Chronic leg ulcers and cellulitis. Anticipate dose will help with that will getting back into wound care post discharge which I do think could be with in a couple of days. Quality VTE Deep Vein Thrombosis/Pulmonary Embolism Present on Admission: No
[2018-06-10] MEDS: DOCUSATE 100 MG CAPSULE PO (11:39)
[2018-06-10] MEDS: BISACODYL 10 MG SUPP PR (11:39)
[2018-06-10] MEDS: MAGNESIUM HYDROXIDE 30 ML UDC PO (11:39)
--- NOTE | 2018-06-10 12:20 | PT.IPTN ---
Current Diagnoses Urinary tract infection, site not specified (06/07/18) Physical Therapy Treatment Note M2 PT-IP Current Condition Start: 06/08/18 12:29 Freq: NEEDED Status: Active Protocol: Document 06/08/18 12:00 HH (Rec: 06/08/18 12:49 [id number]) Physical Therapy Current Condition Current Condition Evaluation Date 06/08/18 Treatment Diagnosis GLF, increased weakness, fever , impaired gait and activity tolerance. Onset Date 06/07/18 Weight Bearing Status Weight Bearing Status Weight Bear as Tolerated M3 PT-IP Subjective Start: 06/08/18 12:29 Freq: NEEDED Status: Active Protocol: Document 06/10/18 12:20 RCC (Rec: 06/10/18 13:28 RCC [id number]) Subjective Physical Therapy Visit Type Type Treatment Note Visit Start Time 12:20 Visit Stop Time 12:45 Total Visit Minutes 25 Notes pt given suppository, Hgb 7.0, Hct 21.7 but cleared to participate in therapy. 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 M4 PT-IP Mobility and Gait Start: 06/08/18 12:29 Freq: NEEDED Status: Active Protocol: Document 06/10/18 12:20 RCC (Rec: 06/10/18 13:28 RCC [id number]) PT-Bed Mobility Assessment Supine to Sit Supine to Sit Moderate Assistance 1 Person Assistance Head of Bed Elevated Bedrails Scooting Scooting to Edge of Bed Moderate Assistance PT-Transfer Assessment Sit to and From Stand Sit to and from Stand Moderate Assistance 2 Person Assistance Use of Upper Extremities Equipment Transfer Assistive Device Gait Belt Front Wheeled Walker Transfers Transfer Destination Chair Bedside Commode Transfer Technique Stand Step Pivot Transfer Ability Level of Assist Moderate Assistance 2 Person Assistance Use of Upper Extremities Gait Assessment Comments Gait Comments unable M5 PT-IP Objective Assessments Start: 06/08/18 12:29 Freq: NEEDED Status: Active Protocol: Document 06/08/18 12:00 (Rec: 06/08/18 12:49 [email or web address]) Orientation Orientation/Cognition Level of Alertness Alert Orientation Name Age Birthday Month Date Year Day of Week Place Situation Language Function Ability No Deficits Noted Safety Awareness Decreased Safety Awareness Memory Description No Deficits Noted Gross Range of Motion Upper Extremity ROM Assessment Within Functional Limits Lower Extremity ROM Assessment Within Functional Limits Strength Upper Extremity Strength Assessment Within Functional Limits Lower Extremity Strength Assessment Bilaterally Impaired Comments Strength Comments 3+/5 bilaterally LEs strength grossly Coordination Assessment Gross Coordination Gross Coordination WNL Sensation Assessment Sensation Gross Sensation Right LE Impaired Left LE Impaired Light Touch Impaired Proprioception (Position) Impaired Muscle Tone Muscle Tone WNL Yes M6 PT-IP Treatment Start: 06/08/18 12:29 Freq: NEEDED Status: Active Protocol: Document 06/08/18 12:00 HH (Rec: 06/08/18 12:49 HH [email or web address]) Physical Therapy Treatment Education Education Provided Safety M7 PT-IP Assessment and Plan Start: 06/08/18 12:29 Freq: NEEDED Status: Active Protocol: Document 06/10/18 12:20 RCC (Rec: 06/10/18 13:28 RCC [id number]) PT Summary Assessment and Plan Summary Assessment Summary Pt able to manually transfer with 2 assist and a FWW. He was fatigued at the end of his transfer and did require physically moving the chair as the pt was unable to take further functional transfer steps beyond 3 steps with each LE. Pt is well below his functional baseline and is not safe to return to prior home environment. Goals Bed Mobility Goal Standby Assistance Transfer Goal Standby Assistance Front Wheeled Walker Gait Goal Standby Assistance Front Wheel Walker Gait Distance 100 Days to Meet Goals 10 Frequency of Treatment Frequency Of Treatment Once a Day Treatment Plan Other Recommendations and Next Treatment cont. to advance transfers- Focus check H&H and discuss with MD and RN Recommendations To Nursing Amount of Assist Needed 2 Person Assist Mechanical Lift Discharge Recommendations PT Discharge Recommendations SNF Rehab
--- NOTE | 2018-06-10 15:41 | CM.DPC ---
Tammi Lam coming to assess the patient tomorrow 06/11 mid morning
[2018-06-10] MEDS: DOXAZOSIN 4 MG TABLET PO (22:13)
[2018-06-10] MEDS: SODIUM CHLORIDE 0.9% FLUSH 10 ML IV (23:40)
[2018-06-11] VITALS (11 sets, daily range): BP systolic 143–189; BP diastolic 64–91; PULSE 67–77; RESP 16–24; TEMP 36.4–36.6; O2SAT 94–97
[2018-06-11 05:50] LABS: Add Manual Diff / Slide Review NO; Basophils Absolute Auto 0 /uL (0-100); Basophils Percent Auto 0.6 % (0-2); Eosinophils Absolute Auto 300 /uL (0-450); Eosinophils Percent Auto 4.6 % (2-4); Hematocrit 26.5 % (41-53); Hemoglobin 8.6 g/dL (13.5-17.5); Lymphocytes Absolute Auto 600 /uL (1100-4500); Lymphocytes Percent Auto 9.1 % (25-40); Mean Corpuscular HGB Conc 32.6 % (30-36); Mean Corpuscular Hemoglobin 31.7 PG (26-34); Mean Corpuscular Volume 97.1 fL (80-100); Monocytes Absolute Auto 800 /uL (0-900); Neutrophils Absolute Auto 4500 /uL (1500-7000); Neutrophils Percent Auto 72.7 % (50-75); Platelet Count 275 X10^3/uL (150-400); Red Blood Cell Count 2.72 X10^6/uL (4.5-5.9); Red Cell Distribution Width 17.4 % (11.6-14.8); White Blood Cell Count 6.2 X10^3/uL (4.5-11.0)
[2018-06-11 05:55] LABS: Alanine Aminotransferase 21 IU/L (21-72); Albumin Globulin Ratio 1.1 (1.0-2.8); Alkaline Phosphatase 75 U/L (38-126); Aspartate Aminotransferase 19 IU/L (17-59); BUN Creatinine Ratio 21.1 (6-22); Bilirubin Total 0.5 mg/dL (0.2-1.3); Blood Urea Nitrogen 40 mg/dL (9-20); Carbon Dioxide 24 mmol/L (22-32); Chloride 103 mmol/L (98-107); Estimated Glomerular Filt Rate 35.6 mL/min (>60); Globulin 2.7 g/dL (1.7-4.1); Glucose 104 mg/dL (80-110); HEMOLYSIS < 15 (0-50); Potassium 4.3 mmol/L (3.4-5.1); Sodium 136 mmol/L (137-145); Total Protein 5.7 g/dL (6.3-8.2)
[2018-06-11 06:32] LABS: B Type Natriuretic Peptide < 100 (<100)
--- NOTE | 2018-06-11 08:47 | P.PN_ITS ---
Subjective Date Patient Seen: 06/11/18 Time Patient Seen: 08:11 Interval history: Patient admitted to hospital for weakness falls fever was a suggestion of continued urinary tract infection. Did indeed grow positive E urine culture with Serratia species. Very resistant and initially broad- spectrum antibiotics had not covered that for the 1st day or 2. Currently on Zosyn which he is definitely improving. Patient also has chronic renal failure chronic spinal cord injury secondary to fall. Physical therapy is working with him and he feels a little stronger today. Patient also has with his chronic renal failure chronic anemia hematocrit and gotten down to 20. No sign of bleeding transfuse 2 units packed red blood cells yesterday and hematocrit is up to 26 patient feels better with better strength. Will continue because of the resistance pattern of his UTI IV antibiotics do not have a good very good oral alternative today. Will also try to get physical therapy to be more active get patient up and try to get improved stability now that we have got is UTI and weakness and hematocrit under better control. Exam Vital Signs (past 8 hours): - 06/11/18 04:00 06/11/18 07:45 Temperature 97.6 F 97.6 F Pulse Rate 77 67 Respiratory Rate 24 20 Blood Pressure 162/76 H 143/64 H Pulse Oximetry 94 96 Oxygen Delivery Method Room Air Oxygen Flow Rate 0 Narrative Exam Narrative: Patient with better color sitting comfortably in bed talking more clearly. Initially on admission had been groggy and slurry I think that is of probably a factor of infection and chronic alcohol use PERRLA EOMs intact Neck without mass Lungs clear to auscultation and percussion Cardiovascular exam shows regular rate and rhythm without murmur does have dependent edema Abdomen is obese but bowel sounds are present no palpable mass. No discernible hepatosplenomegaly. No CVA area discomfort Skin without overt rashes or breakdowns. Neuro shows patient to be alert and oriented speech clear has sensory and milder motor deficits and in legs greater than arms following his C-spine injury secondary to fall. No real change in that neurologic presentation at this point Objective Labs Result Diagrams: 06/11/18 05:25 06/11/18 05:25 Labs: Laboratory Results - last 24 hr 06/10/18 06/11/18 06/11/18 10:50 05:25 05:25 WBC 6.2 RBC 2.72 L Hgb 8.6 L Hct 26.5 L MCV 97.1 D MCH 31.7 MCHC 32.6 RDW 17.4 H Plt Count 275 Neut % (Auto) 72.7 Lymph % (Auto) 9.1 L [place] % (Auto) 13.0 Eos % (Auto) 4.6 H Baso % (Auto) 0.6 Neut # (Auto) 4500 Lymph # (Auto) 600 L [place] # (Auto) 800 Eos # (Auto) 300 Baso # (Auto) 0 Sodium 136 L Potassium 4.3 Chloride 103 Carbon Dioxide 24 BUN 40 H Creatinine 1.90 H Estimated GFR 35.6 L BUN/Creatinine Ratio 21.1 Glucose 104 Calcium 8.0 L Total Bilirubin 0.5 AST 19 ALT 21 Alkaline Phosphatase 75 B-Natriuretic Peptide < 100 Total Protein 5.7 L Albumin 3.0 L Globulin 2.7 Albumin/Globulin Ratio 1.1 Blood Type O Positive Antibody Screen Negative Crossmatch See Detail Assessment & Plan Assessment & Plan narrative: Assessment 1. Urinary infection with weakening and fever consistent with a SIRS like presentation with a very resistant bacteria and Serratia species. Will continue IV antibiotics for today just because of his resistance Assessment 2. Chronic anemia primarily I think secondary to his chronic renal fa ilure no overt bleeding is noted 2 units packed red cells yesterday improved hematocrit from 20-26 Assessment 3. Chronic renal failure and creatinine 1.8 stage III or 4 chronic kidney disease Assessment 4. Spinal cord injury with chronic weakness and poor coordination and sensory deficit. This seems stable at this point but I think that is a contributing factor to his repeated falls. Stable and will watch at this point. I have tried to get physical therapy occupational therapy and mental health social worker involved to try to improve his home situation decrease likelihood of tripping Assessment 5 chronic alcohol abuse. Patient continues to drink at least 2 a day by his acknowledgement could be more and well he is probably not drinking to intoxication with his deficits as they are he probably drinking enough to increase his risk for falling. I talked with him again this admission about the possibility of alcohol treatment. Quality VTE Deep Vein Thrombosis/Pulmonary Embolism Present on Admission: No
[2018-06-11] MEDS: glipiZIDE 5 MG TABLET PO (09:15)
[2018-06-11] MEDS: ENOXAPARIN 30 MG/0.3 ML SYRINGE SUBCUT (09:15)
[2018-06-11] MEDS: CITALOPRAM 20 MG TABLET 40 MG PO (09:15)
[2018-06-11] MEDS: NAPROXEN 250 MG TABLET 500 MG PO ×2 (09:15→22:01)
[2018-06-11] MEDS: PIPERACILLIN-TAZO 3.375 GM/50 ML FROZ.PIGGY IV ×3 (09:15→23:35)
[2018-06-11] MEDS: SODIUM CHLORIDE 0.9% FLUSH 10 ML IV ×3 (09:15→23:35)
[2018-06-11] MEDS: DULOXETINE 30 MG CAPSULE PO (09:15)
[2018-06-11] MEDS: FUROSEMIDE 40 MG TABLET 160 MG PO (09:15)
--- NOTE | 2018-06-11 10:23 | OT.IP.EVAL ---
Current Diagnoses Urinary tract infection, site not specified (06/07/18) Past Medical History (Last Reviewed 06/07/18 @ 19:17 by Serina Mott PA-C) Anemia associated with chronic renal failure (Chronic) Symptomatic anemia (Chronic) GI bleed (Resolved) Diabetes type 2, controlled (Chronic) Alcoholism (Acute) Chronic kidney disease, stage 4 (severe) (Chronic) Depression (Chronic) Hypertension (Chronic) Hyperparathyroidism (Chronic) Chronic pain (Chronic) Duodenal ulcer (Acute) Left leg pain (Chronic) Gout, arthropathy (Chronic) History of cervical fracture (Resolved) Surgical History (Last Reviewed 05/19/18 @ 20:45 by Miroslava Rodriguez DO) History of colectomy (Resolved) Occupational Therapy Inpatient Evaluation/Re-Eval M1 PT/OT-IP Prior Functional Status Start: 06/08/18 15:54 Freq: NEEDED Status: Active Protocol: Document 06/11/18 09:57 [facility] (Rec: 06/11/18 10:22 [facility] [id number]) Medical Review Prior Functional Status Medical History Reviewed Yes Diet/Fluid Consistency Regular Communication no deficits noted. Able to make needs known Mobility and Gait Pt inconsistent with responding to questions: eyes mostly closed while answering questions. Pt used a 4WW for mobility at all times and basically home bound. Activities of Daily Living and IADL's Pt has difficulty doing ADLs. He stated I've been voiding in bed and have not had a shower for days. His roommates had to help him as needed. Prior Functional Level (Other details) Pt states mainly has been able to dress and toilet himself while roommates assist to cook , help with laundry, and has a display artist that comes 2x/ week. Pt states still drives. Social History Household Members friend(s) other Living Arrangements House Number of Floors (Floors) Two Floors Number of Stairs To Enter/Railing? RAMP Home Environment Ramp Home Equipment Four Wheel Walker Additional Social History Comment Per previous admisstion note, Pt lives in a 2 level house but primarily stay on main floor. The other level is the basement for laundry. His roommate is only able to assist him for laundry. Pt has been going to outpatient wound care clinic at with his sister from [place] to help. Pt reports he has not been recovering well since d/c from [facility] and getting weaker. Pt fell onto the floor twice and stted I dont know why i fell. M2 OT-IP Current Condition Start: 06/08/18 15:54 Freq: Status: Active Protocol: Document 06/11/18 09:57 [facility] (Rec: 06/11/18 10:22 [facility] [id number]) Occupational Therapy Current Condition Current Condition Evaluation Date 06/11/18 Treatment Diagnosis Weakness, UTI Diagnosis Onset Date 06/07/18 M3 OT- IP Subjective and Pain Start: 06/08/18 15:54 Freq: Status: Active Protocol: Document 06/11/18 09:57 [facility] (Rec: 06/11/18 10:22 [facility] [id number]) OT- Subjective Occupational Therapy Visit Type Type Initial Evaluation Visit Start Time 08:40 Visit Stop Time 09:25 Total Visit Minutes 45 Occupational Therapy Visit Comments Patient Comments Pt agreeable to get up. THERAPY AIDE also present durigh Ot eval session. OT Pain Assessment Pain When Pain Assessed At Rest Pain Present Pain Present Pain Reported Location Neck and legs Intensity 6 M4 OT- IP ADL's Start: 06/08/18 15:54 Freq: Status: Active Protocol: Document 06/11/18 09:57 [facility] (Rec: 06/11/18 10:22 [facility] [id number]) OT ADL-Grooming General Evaluation Grooming Ability Moderate Assistance Comments OT Grooming Comments Pt able to wash his face and hand however wanting assist to brush his hair due to decreased AROM and pain when raising arms up. OT ADL-Dressing General Eval Lower Body Dressing Ability Maximum Assistance Areas Needing Assistance Socks Comments OT Dressing Comments Pt states usually wears shoes at home. OT ADL-Toileting Comments OT Toileting Comments Pt not needing to go. OT ADL-Bathing Comments OT Bathing Comments Pt states has shower chair with back for tub shower. M5 OT- IP IADL's Start: 06/08/18 15:54 Freq: Status: Active Protocol: Document 06/11/18 09:57 [facility] (Rec: 06/11/18 10:22 [facility] [id number]) OT-Instrumental Activities of Daily Living Home Safety Awareness Awareness of Need for Assistance at Home Good Awareness Ability to Problem Solve Emergency Able to Problem Solve Situations Medication Management Medication Management Caregiver Administers Medication Management Comments Pt's sister assists with medications. Money Management Money Management Caregiver Provides Assistance Money Management Comments Pt's sister assists. Meal Preparation Meal Preparation Caregiver Provides Assist Meal Preparation Comments Roommates assist with meals. Eyeglass Lens Cutter Eyeglass Lens Cutter Caregiver Provides Assist Eyeglass Lens Cutter Comments [facility]. Driving Driving Comments Pt states still drives. M6 OT- IP Functional Cognition Start: 06/08/18 15:54 Freq: Status: Active Protocol: Document 06/11/18 09:57 [facility] (Rec: 06/11/18 10:22 [facility] [id number]) Cognitive Factors Limiting Selfcare Function Cognitive Ability Level of Alertness Alert Patient Orientation Name Age Birthday Month Date Year Day of Week Place Situation Attention Span Ability Capable of Focused Attention Capable of Sustained Attention Ability to Follow Commands Able to Follow One Step Commands Memory Description Short Term Impaired Safety Awareness Underestimates Need for Assistance Problem Solving Ability Needs Assist to Identify Solutions Cognitive Tests SLUMS Pt scored 19/30 hormal is 25/ 30 for pt's education level.pt having difficulty with math calculations,how to draw clock hands, and mainly with short term memory items. Cognitive Comments Cognitive Assessment Comments Pt at times perseverates on telling story of how he fall 5 years ago on the curb outside or ER and hurt his shoulders and neck. Pt intact for all home safety situations. OT- Vision and Hearing OT- Hearing Assessment OT- Hearing Assessment WFL OT- Vision Assessment Visual Acuity WFL Glasses For Reading M7 OT- IP Mobility and Balance Start: 06/08/18 15:54 Freq: Status: Active Protocol: Document 06/11/18 09:57 [facility] (Rec: 06/11/18 10:22 [facility] [id number]) OT- Bed Mobility Assessment Rolling Type of Rolling Roll to Left Level of Assistance Standby Assistance Supine to Sit Supine to Sit Assist Standby Assistance Head of Bed Elevated Bedrails Sit to Supine Sit to Supine Assist Standby Assistance Scooting Scooting to Edge of Bed Standby Assistance OT-Transfer Assessment Sit to and From Stand Sit to and from Stand Minimal Assistance 1 Person Assistance Transfers Transfer Ability Moderate Assistance 1 Person Assistance Technique Transfer Destination Bed Chair Transfer Technique Stand Step Pivot Devices Transfer Assistive Devices Gait Belt Front Wheeled Walker Comments Mobility Comments Pt has adjustable bed at home but only head element works. Pt DONNA to stand from bed , MODA from lower surfaces and tends to lean backwards on his heels. When up assist for steadying and balance. OT- Gait Assessment Gait Gait Assistance Required: Moderate Assistance 1 Person Assist Distance (Feet) 10 Assistive Devices Assistive Device Gait Belt Front Wheeled Walker Comments Gait Ability Comments Pt tends to hyperextend right knee when walking and has heavy use of BUE for FWW handles. OT- Balance Assessment Sitting Balance and Reactions Static Sitting Balance Ability Normal Standing Balance and Reactions Static Standing Balance Ability Fair Dynamic Standing Balance Ability Poor M8 OT- IP Objective Assessments Start: 06/08/18 15:54 Freq: Status: Active Protocol: Document 06/11/18 09:57 [facility] (Rec: 06/11/18 10:22 [facility] [id number]) OT Gross Range of Motion Upper Extremity Range of Motion Assessment Bilaterally Impaired ROM Impairments RUE 0-90, LUE 0-70 shoulder flexion. OT Strength Hand Nozzle Tender Strength Hand Dominance Left Comments Strength Comments RUE 4/5, LUE 4+/5 elbow to distal. M9 OT- IP Assessment and Plan Start: 06/08/18 15:54 Freq: Status: Active Protocol: Document 06/11/18 09:57 [facility] (Rec: 06/11/18 10:22 [facility] [id number]) OT Summary Assessment and Plan Potential Rehabilitation Potential Good Analytic Complexity at Evaluation Low Summary OT Impairments Pain Range of Motion Strength Balance Functional Cognition Functional Mobility Grooming Dressing Toileting Bathing Toilet Transfers Shower Transfers Progress Towards Goals Progressing Toward Goals Slow Progress due to Pain Slow Progress due to Activity Tolerance Assessment Summary Pt low complexity and main barriers are decreased activity tolerance, strength, and endurance. Pt now needing one person assist for Adl and functional mobility needs and far from baseline of BRAD with all needs. Pt will benefit from skilled rehab prior to going home. Goals Grooming Goal Standby Assistance Dressing Goal Standby Assistance Toileting Goal Standby Assistance Bathing Goal Minimal Assistance Toilet Transfer Goal Standby Assistance Shower Transfer Goal Standby Assistance Days to Meet Goals 5 Frequency of Treatment Frequency Of Treatment Once a Day Treatment Plan OT Treatment Plan ADL Training Functional Cognition Training Functional Mobility Patient/Family Education Discharge Planning Other Treatment Recommendations and Next Stand at sink for grooming Treatment Focus needs, LB dressing. Discharge Recommendations OT Discharge Recommendations SNF Rehab
--- NOTE | 2018-06-11 10:38 | PT.IPTN ---
Current Diagnoses Urinary tract infection, site not specified (06/07/18) Physical Therapy Treatment Note M2 PT-IP Current Condition Start: 06/08/18 12:29 Freq: NEEDED Status: Active Protocol: Document 06/08/18 12:00 HH (Rec: 06/08/18 12:49 HH [id number]) Physical Therapy Current Condition Current Condition Evaluation Date 06/08/18 Treatment Diagnosis GLF, increased weakness, fever , impaired gait and activity tolerance. Onset Date 06/07/18 Weight Bearing Status Weight Bearing Status Weight Bear as Tolerated M3 PT-IP Subjective Start: 06/08/18 12:29 Freq: NEEDED Status: Active Protocol: Document 06/11/18 08:38 [facility] (Rec: 06/11/18 10:37 [facility] [id number]) Subjective Physical Therapy Visit Type Type Treatment Note Visit Start Time 08:38 Visit Stop Time 09:05 Total Visit Minutes 27 Notes Co-treated with OT Shira. Number of RESERVATION SALES AGENT Visits 1 Physical Therapy Visit Comments Patient Comments Pt willing to get up to ambulate and sit in chair. Therapy Pain Assessment Pain When Pain Assessed At Rest Pain Present Pain Present Pain Reported Location Neck and legs Intensity 6 Scale Used Numeric (1 - 10) Pain Behaviors Guarding M4 PT-IP Mobility and Gait Start: 06/08/18 12:29 Freq: NEEDED Status: Active Protocol: Document 06/11/18 08:38 [facility] (Rec: 06/11/18 10:37 [facility] [id number]) PT-Bed Mobility Assessment Supine to Sit Supine to Sit Contact Guard Assistance Head of Bed Elevated Bedrails Scooting Scooting to Edge of Bed Standby Assistance PT-Transfer Assessment Sit to and From Stand Sit to and from Stand Minimal Assistance 1 Person Assistance Use of Upper Extremities Equipment Transfer Assistive Device Gait Belt Front Wheeled Walker Transfers Transfer Destination Bed Chair Transfer Technique Stand Step Pivot Transfer Ability Level of Assist Moderate Assistance 1 Person Assistance Use of Upper Extremities Comments Mobility Comments Pt improved bed mobility. Gait Assessment Gait Gait Assistance Required: Moderate Assistance 1 Person Assist Distance (Feet) 10 Able to Maintain Weight Bearing Status Yes During Gait Assistive Devices Assistive Device Gait Belt Front Wheeled Walker Gait Deviations General Gait Pattern Antalgic Decreased Stride Length Decreased Feet Clearance Flexed Trunk Factors Limiting Gait Function Factors Limiting Gait Function Decreased Activity Tolerance Decreased Strength Poor Balance Comments Gait Comments Pt able to ambulate ~10ft Mod A with FWW. Pt with decreased foot clearance and stride length. Stair Climbing Assessment Comments Stair Climbing Comments Unable at this time. M5 PT-IP Objective Assessments Start: 06/08/18 12:29 Freq: NEEDED Status: Active Protocol: Document 06/08/18 12:00 HH (Rec: 06/08/18 12:49 HH [id number]) Orientation Orientation/Cognition Level of Alertness Alert Orientation Name Age Birthday Month Date Year Day of Week Place Situation Language Function Ability No Deficits Noted Safety Awareness Decreased Safety Awareness Memory Description No Deficits Noted Gross Range of Motion Upper Extremity ROM Assessment Within Functional Limits Lower Extremity ROM Assessment Within Functional Limits Strength Upper Extremity Strength Assessment Within Functional Limits Lower Extremity Strength Assessment Bilaterally Impaired Comments Strength Comments 3+/5 bilaterally LEs strength grossly Coordination Assessment Gross Coordination Gross Coordination WNL Sensation Assessment Sensation Gross Sensation Right LE Impaired Left LE Impaired Light Touch Impaired Proprioception (Position) Impaired Muscle Tone Muscle Tone WNL Yes M6 PT-IP Treatment Start: 06/08/18 12:29 Freq: NEEDED Status: Active Protocol: Document 06/11/18 08:38 [facility] (Rec: 06/11/18 10:37 [facility] [id number]) Physical Therapy Treatment Exercises Exercises Ankle Pumps Gluteal Sets Quad Sets M7 PT-IP Assessment and Plan Start: 06/08/18 12:29 Freq: NEEDED Status: Active Protocol: Document 06/11/18 08:38 [facility] (Rec: 06/11/18 10:37 [facility] [id number]) PT Summary Assessment and Plan Summary Impairments ROM Strength Balance Sensation Tone Cognition Bed Mobility Transfers Gait Activity Tolerance Assessment Summary Pt improved bed mobility requiring CGA. Pt required CGA sit-stand from bed but Min A from chair. Pt ambulated ~10ft w/FWW/SB/Mod A x1 with chair follow. Pt c/o neck and shoulder pain during tx. Pt required assist with brushing hair as pt cannot reach due to shoulder pain. Goals Bed Mobility Goal Standby Assistance Transfer Goal Standby Assistance Front Wheeled Walker Gait Goal Standby Assistance Front Wheel Walker Gait Distance 100 Days to Meet Goals 10 Frequency of Treatment Frequency Of Treatment Once a Day Treatment Plan Physical Therapy Treatment Plan Bed Mobility Training Transfer Training Gait Training Therapeutic Exercise Balance Retraining Discharge Planning Other Recommendations and Next Treatment bed mobs, transfers and gait Focus as able. Recommendations To Nursing Amount of Assist Needed 1 Person Assist Discharge Recommendations PT Discharge Recommendations SNF Rehab
[2018-06-11] MEDS: ACETAMINOPHEN 325 MG TABLET 650 MG PO ×2 (14:22→22:03)
--- NOTE | 2018-06-11 14:44 | CM.DPC ---
DCP Cont: Per MD, pt still not medically stable for d/c yet today as pt's UTI resistant and pt needing at least one more day of Zosyn and pt's CIWA scores have been 0. Per RN, pt very pleasant and cooperative with care and doing better with therapy team. LARS updated Tammi with [facility] who met bedside with pt and his Dtr Kamille and also spoke to pt's DPOA/Dtr via phone and Tammi confirms that they can accept the pt at d/c. PASRR complete. Plan: LARS to follow for possible pt d/c to [facility] tomorrow 06/12/18 if medically stable. NOELLE Vinson
[2018-06-11] MEDS: DOXAZOSIN 4 MG TABLET PO (22:01)
[2018-06-12] VITALS: O2SAT 98
[2018-06-12 04:08] VITALS: BP 145/72; PULSE 69; RESP 18; TEMP 36.3; O2SAT 97
[2018-06-12 05:33] LABS: Alanine Aminotransferase 16 IU/L (21-72); Albumin 3.2 g/dL (3.5-5.0); Albumin Globulin Ratio 1.1 (1.0-2.8); Alkaline Phosphatase 78 U/L (38-126); Aspartate Aminotransferase 21 IU/L (17-59); Bilirubin Total 0.5 mg/dL (0.2-1.3); Blood Urea Nitrogen 42 mg/dL (9-20); Calcium 8.5 mg/dL (8.4-10.2); Carbon Dioxide 26 mmol/L (22-32); Chloride 102 mmol/L (98-107); Estimated Glomerular Filt Rate 33.6 mL/min (>60); Glucose 116 mg/dL (80-110); HEMOLYSIS < 15 (0-50); Potassium 4.2 mmol/L (3.4-5.1); Sodium 138 mmol/L (137-145); Total Protein 6.2 g/dL (6.3-8.2)
[2018-06-12 05:36] LABS: Add Manual Diff / Slide Review NO; Basophils Absolute Auto 0 /uL (0-100); Basophils Percent Auto 0.5 % (0-2); Eosinophils Absolute Auto 300 /uL (0-450); Eosinophils Percent Auto 5.1 % (2-4); Hematocrit 26.5 % (41-53); Hemoglobin 9.1 g/dL (13.5-17.5); Lymphocytes Absolute Auto 900 /uL (1100-4500); Lymphocytes Percent Auto 13.7 % (25-40); Mean Corpuscular HGB Conc 34.3 % (30-36); Mean Corpuscular Hemoglobin 32.9 PG (26-34); Mean Corpuscular Volume 95.8 fL (80-100); Monocytes Absolute Auto 1000 /uL (0-900); Monocytes Percent Auto 15.5 % (3-14); Neutrophils Absolute Auto 4400 /uL (1500-7000); Neutrophils Percent Auto 65.2 % (50-75); Platelet Count 286 X10^3/uL (150-400); Red Blood Cell Count 2.76 X10^6/uL (4.5-5.9); Red Cell Distribution Width 16.6 % (11.6-14.8); White Blood Cell Count 6.7 X10^3/uL (4.5-11.0)
[2018-06-12 07:25] VITALS: BP 160/77; PULSE 67; RESP 24; TEMP 36.4; O2SAT 95
[2018-06-12 08:15] VITALS: O2SAT 95
--- NOTE | 2018-06-12 08:27 | PM.DS.1 ---
History of Present Illness Date Patient Seen: 06/12/18 Time Patient Seen: 08:27 Chief complaint: GLF Narrative: See history and physical Discharge Providers Date of admission: 06/07/18 21:10 Discharge Date: 06/12/18 Primary care physician: Jim Quintana MD Consults: 06/08/18 08:49 Consult to Occupational Therapy Evaluate & Treat Comment: Physician Instructions: Evaluate and treat Consult to Physical Therapy Evaluate & Treat Comment: Physician Instructions: Evaluate and Treat Consult to Tongue Stitcher Routine Comment: Discharge provider: Luke Schaefer MD Summary Discharge Diagnosis: Urinary infection SIRS presentation Chronic anemia Chronic renal failure Chronic alcohol abuse Type 2 diabetes Hospital Course: Problem 1. Patient was admitted and felt to have urinary tract infection and early sepsis procalcitonin was mildly elevated which peaked on day 2 at 20. Slow improvement since that time. Patient grew Serratia which was not responsive to very much and was switched to Zosyn. Basically from that day on slowly started to improve. Yesterday was almost back to normal and was not requiring as much help. Had been set up to go to the nursing gary. Will be discharged to senior living for 5 days more of IV antibiotics and recheck in 1 week. Patient feels great looks good will follow. Problem 2. Weakness. Patient was basically a 2 person assist when he came in. [place] to be secondary to the combination of his infection and weakness. Probably secondary to his generalized weakness secondary to spinal cord injury. Physical therapy was began he was more than a 2 person assist when he had was admitted and now is a one-person standby. Will be discharged to senior living for continued rehab and strengthening. Goal will be to get him home. Problem 3. Sugars were pretty easily controlled with usual management will go home on usual treatment Problem 4. Chronic renal failure. Still significantly abnormal but close to baseline. Patient feels well and will be followed with labs in 1 week period to make sure stable. No other changes. Problem 5. Chronic alcohol abuse. Patient was not drinking 2 weeks prior to coming in. A discussion about issues around this and ways to treat. Patient is going to think about it. Will follow as outpatient. Problem 6. Spinal cord injury. Overall weakness has been worsening but felt to be secondary to his chronic not doing anything and infection. Will hope physical therapy at rehab will get him back to his baseline syncope more functional. Will follow up with Dr. Quintana in 2 weeks Status at Discharge Cognitive/behavioral status at discharge: oriented Functional status at discharge: uses cane/walker Overall status at discharge: patient is progressing back to baseline Time Spent with Patient Greater than 30 minutes Exam Vital Signs (past 8 hours): - 06/12/18 04:08 06/12/18 07:25 Temperature 97.3 F L 97.6 F Pulse Rate 69 67 Respiratory Rate 18 24 Blood Pressure 145/72 H 160/77 H Pulse Oximetry 97 95 Oxygen Delivery Method Room Air Oxygen Flow Rate 0 Narrative Exam Narrative: Alert bright elderly male in no acute distress Mucous membranes moist neck is supple without adenopathy JVD or bruits. Lungs are clear. Heart regular rate and rhythm. Abdomen is obese soft positive bowel sounds completely nontender. Extremities without cyanosis clubbing edema. neurologic exam is nonfocal moving all extremities did not ambulate. Psychologically actually best I have ever seen him is interactive appropriate smiling. Objective Labs Result Diagrams: 06/12/18 05:04 06/12/18 05:04 Labs: Laboratory Results - last 24 hr 06/12/18 06/12/18 05:04 05:04 WBC 6.7 RBC 2.76 L Hgb 9.1 L Hct 26.5 L MCV 95.8 MCH 32.9 MCHC 34.3 RDW 16.6 H Plt Count 286 Neut % (Auto) 65.2 Lymph % (Auto) 13.7 L Glenn % (Auto) 15.5 H Eos % (Auto) 5.1 H Baso % (Auto) 0.5 Neut # (Auto) 4400 Lymph # (Auto) 900 L Glenn # (Auto) 1000 H Eos # (Auto) 300 Baso # (Auto) 0 Sodium 138 Potassium 4.2 Chloride 102 Carbon Dioxide 26 BUN 42 H Creatinine 2.00 H Estimated GFR 33.6 L BUN/Creatinine Ratio 21.0 Glucose 116 H Calcium 8.5 Total Bilirubin 0.5 AST 21 ALT 16 L Alkaline Phosphatase 78 Total Protein 6.2 L Albumin 3.2 L Globulin 3.0 Albumin/Globulin Ratio 1.1 Discharge Plan Discharge Plan Patient Disposition: SNF Transfer to: [facility] Under care of provider: Mariano Transportation: Wheelchair Labs: urine culture if indicated one week. cbc bmp one week I certify the postop hospital group home care is medically necessary on a continuing basis for any conditions for which he/ she received care during this hospitalization.: Yes The receiving facility has agreed to accept transfer and provide medical treatment.: Yes Discharge Med Rec/Prescriptions Prescriptions: New acetaminophen 325 mg Tablet 650 mg PO Q4HR PRN (Reason: As Needed For Fever/Mild Pain) Qty: 100 RF: 0 docusate sodium 100 mg Capsule 100 mg PO BID PRN (Reason: Constipation) Qty: 60 RF: 0 piperacillin-tazobactam [Zosyn] 3.375 gram recon soln 3.375 gram IV Q8H Qty: 15 RF: 0 Continued doxazosin 4 mg Tablet 4 mg PO BEDTIME RF: 0 etodolac 400 mg Tablet 400 mg PO BID RF: 0 glipizide 5 mg Tablet 5 mg PO DAILY RF: 0 duloxetine 30 mg Capsule,Delayed Release(Dr/Ec) 30 mg PO DAILY RF: 0 lorazepam 0.5 mg Tablet 0.5 mg PO BID-TID PRN (Reason: Anxiety) Qty: 30 RF: 1 furosemide 80 mg tablet 160 mg PO DAILY RF: 0 citalopram 20 MG tablet 40 mg PO DAILY RF: 0 glimepiride 1 mg tablet 1 mg PO DAILY RF: 0 Discontinued doxycycline monohydrate 100 mg Capsule 100 mg PO BID RF: 0 doxycycline hyclate 100 mg capsule 100 mg PO BID Qty: 20 RF: 0 Follow up/Referrals: Jim Quintana MD [Primary Care Provider] - 2 Weeks Discharge Health Status Brief summary of current health status: see discharge summary Multidrug resistant organism: No MDRO MDRO Verified by culture: Yes Precautions: [place] Provider Discharge Instructions Diet: Diet as Tolerated Liquid consistency: Normal/Thin Food texture: Regular Activity: as tolerated Skin/Wound/Dressing Care Report to your healthcare provider any signs of infection, such as:: chills, fever, night sweats, increased pain, unusual drainage and unusual redness Special Rehabilitation Services Rehab type: Physical therapy and Occupational therapy Restrictions to mobility: as per PT Discharge Data Primary Care Provider: Jim Quintana Attending Provider: Tyree Mcgregor Admit Date/Time: 06/07/18 21:10 Quality VTE Deep Vein Thrombosis/Pulmonary Embolism Present on Admission: No
[2018-06-12] MEDS: FUROSEMIDE 40 MG TABLET 160 MG PO (08:48)
[2018-06-12] MEDS: DULOXETINE 30 MG CAPSULE PO (08:48)
[2018-06-12] MEDS: NAPROXEN 250 MG TABLET 500 MG PO (08:48)
[2018-06-12] MEDS: PIPERACILLIN-TAZO 3.375 GM/50 ML FROZ.PIGGY IV (08:48)
[2018-06-12] MEDS: ENOXAPARIN 30 MG/0.3 ML SYRINGE SUBCUT (08:49)
[2018-06-12] MEDS: SODIUM CHLORIDE 0.9% FLUSH 10 ML IV (08:49)
[2018-06-12] MEDS: glipiZIDE 5 MG TABLET PO (08:49)
[2018-06-12] MEDS: CITALOPRAM 20 MG TABLET 40 MG PO (08:49)
--- NOTE | 2018-06-12 09:17 | CM.DPC ---
DCP/continued: Reviewed chart. Spoke with Dr. Schaefer this AM. He reports that patient is medically stable to d/c to SNF. Reviewed previous CM team notes. Patient has been accepted at [facility]. Met with patient to confirm plan. Patient aware and agreeable to d/c to [facility] today. Asked NETWORK SYSTEMS INTEGRATOR/Rebeca to coordinate arrangements. She is agreeable. P: FCC today. supervisor coating scheduled for 11:00am. NOELLE Funes
--- NOTE | 2018-06-12 10:33 | OT.IP.TRT ---
Current Diagnoses Urinary tract infection, site not specified (06/07/18) Occupational Therapy Treatment Note M2 OT-IP Current Condition Start: 06/08/18 15:54 Freq: Status: Active Protocol: Document 06/11/18 09:57 [facility] (Rec: 06/11/18 10:22 [facility] [id number]) Occupational Therapy Current Condition Current Condition Evaluation Date 06/11/18 Treatment Diagnosis Weakness, UTI Diagnosis Onset Date 06/07/18 M3 OT- IP Subjective and Pain Start: 06/08/18 15:54 Freq: Status: Active Protocol: Document 06/12/18 10:33 [facility] (Rec: 06/12/18 12:54 [facility] [id number]) OT- Subjective Occupational Therapy Visit Type Type Treatment Note Visit Start Time 10:02 Visit Stop Time 10:33 Total Visit Minutes 31 Notes Partial co tx with P.T. for ambulation to sink. 2 person assist for safety due to pt's hx of legs buckling unexpectedly. Occupational Therapy Visit Comments Patient Comments I feel a little stronger today. Patient/Caregiver Goals to get strong enough to function independently at home , decrease falls OT Pain Assessment Pain When Pain Assessed After Treatment Pain Present Pain Present Denied Pain M4 OT- IP ADL's Start: 06/08/18 15:54 Freq: Status: Active Protocol: Document 06/12/18 10:33 [facility] (Rec: 06/12/18 12:54 PJM [id number]) OT ADL-Grooming General Evaluation Grooming Ability Moderate Assistance Areas Needing Assistance Retrieving/Set-up of Grooming Items Combing/Brushing Hair Comments OT Grooming Comments Pt reports B shoulder pain since fall about a month ago and unable to reach head with brush. provided education re: long handle brush option. OT ADL-Oral Care General Eval Oral Care Ability Minimal Assistance Areas of Assistance Brushing Teeth Retrieving/Set-Up of Items Devices Oral Care Devices Toothbrush Comments Oral Care Comments Pt sat to brush teeth at sink due to decreased standing tolerance and needed SBA to min assist with oral care due to inability to reach sink easily. OT ADL-Dressing General Eval Upper Body Dressing Ability Standby Assistance Lower Body Dressing Ability Maximum Assistance Total Assistance Comments OT Dressing Comments Pt needed max assist to get brief over feet and pull up over hips today. Pt needs both hands for balance on FWW and unable to manage clothing up or down over hips. Total assist for socks due to high bed. Pt usually dons socks in lower chair. Began education re: lower body dressing equipment with senior logistics manager and sock aid. Pt states he has both of these, but has not been using them at home. OT ADL-Bathing Bathing Type Bathing Type Sponge Bath General Evaluation Bathing Ability Minimal Assistance Areas Needing Assistance Retrieving/Setting Up Items Wash/Dry Back Comments OT Bathing Comments Pt completed upper body and groin sponge bath seated EOB after set up. M7 OT- IP Mobility and Balance Start: 06/08/18 15:54 Freq: Status: Active Protocol: Document 06/12/18 10:33 [facility] (Rec: 06/12/18 12:54 PJ [id number]) OT- Bed Mobility Assessment Supine to Sit Supine to Sit Assist Standby Assistance 1 Person Assistance Head of Bed Elevated Bedrails Sit to Supine Sit to Supine Assist Standby Assistance 1 Person Assistance Head of Bed Elevated Bedrails Scooting Scooting to Edge of Bed Standby Assistance OT-Transfer Assessment Sit to and From Stand Sit to and from Stand Minimal Assistance Transfers Transfer Ability Moderate Assistance 1 Person Assistance Technique Transfer Destination Bed Chair Transfer Technique Stand Step Pivot Devices Transfer Assistive Devices Gait Belt Front Wheeled Walker Comments Mobility Comments 2 person assist for safety but no buckling of LE's this session. OT- Gait Assessment Gait Gait Assistance Required: Moderate Assistance 1 Person Assist Distance (Feet) 10 Comments Gait Ability Comments 5+5 feet to sink and back, pt unable to stand at sink for grooming due to decreased endurance and BLE weakness OT- Balance Assessment Sitting Balance and Reactions Static Sitting Balance Ability Good Dynamic Sitting Balance Ability Fair Standing Balance and Reactions Static Standing Balance Ability Fair Dynamic Standing Balance Ability Poor M9 OT- IP Assessment and Plan Start: 06/08/18 15:54 Freq: Status: Active Protocol: Document 06/12/18 10:33 [facility] (Rec: 06/12/18 12:54 PJ [id number]) OT Summary Assessment and Plan Potential Rehabilitation Potential Good Summary OT Impairments Strength Balance Functional Mobility Grooming Dressing Toileting Bathing Toilet Transfers Shower Transfers Progress Towards Goals Slow Progress due to Activity Tolerance Assessment Summary Pt participating in self care tasks with good effort, but has significantly decreased activity tolerance especially for prolonged standing. He is anxious about legs buckling and tends to self limit standing for this reason. Pt would benefit from use of lower body dressing equipment to decrease energy expenditure and increase independence. B shoulder pain from recent fall limits ability to complete hair care tasks. Pt not safe to return home with roommates who work during day, so pt is home alone. Roommates do not provide personal care assist to pt. Recommend SNF at d/c for further rehab services. Goals Grooming Goal Standby Assistance Dressing Goal Standby Assistance Toileting Goal Standby Assistance Bathing Goal Minimal Assistance Toilet Transfer Goal Standby Assistance Shower Transfer Goal Standby Assistance Days to Meet Goals 5 Frequency of Treatment Frequency Of Treatment Once a Day Treatment Plan OT Treatment Plan ADL Training Functional Cognition Training Functional Mobility Patient/Family Education Discharge Planning Discharge Recommendations OT Discharge Recommendations SNF Rehab
--- NOTE | 2018-06-12 11:03 | PT.IPTN ---
Current Diagnoses Urinary tract infection, site not specified (06/07/18) Physical Therapy Treatment Note M2 PT-IP Current Condition Start: 06/08/18 12:29 Freq: NEEDED Status: Active Protocol: Document 06/08/18 12:00 [facility] (Rec: 06/08/18 12:49 [facility] [id number]) Physical Therapy Current Condition Current Condition Evaluation Date 06/08/18 Treatment Diagnosis GLF, increased weakness, fever , impaired gait and activity tolerance. Onset Date 06/07/18 Weight Bearing Status Weight Bearing Status Weight Bear as Tolerated M3 PT-IP Subjective Start: 06/08/18 12:29 Freq: NEEDED Status: Active Protocol: Document 06/12/18 10:20 [facility] (Rec: 06/12/18 11:02 [facility] [id number]) Subjective Physical Therapy Visit Type Type Treatment Note Visit Start Time 10:20 Visit Stop Time 10:38 Total Visit Minutes 18 Notes Co-treated with OT Lisette. Number of TRUCKING CONTRACTOR Visits 2 Physical Therapy Visit Comments Patient Comments Pt up with OT at EOB upon arrival.Pt willing to ambulate . M4 PT-IP Mobility and Gait Start: 06/08/18 12:29 Freq: NEEDED Status: Active Protocol: Document 06/12/18 10:20 [facility] (Rec: 06/12/18 11:02 [facility] [id number]) PT-Bed Mobility Assessment Supine to Sit Supine to Sit Contact Guard Assistance Head of Bed Elevated Bedrails Sit to Supine Sit to Supine Contact Guard Assistance Head of Bed Elevated Bedrails Scooting Scooting to Edge of Bed Standby Assistance Scooting Up and Down in Bed Standby Assistance PT-Transfer Assessment Sit to and From Stand Sit to and from Stand Minimal Assistance 1 Person Assistance Use of Upper Extremities Equipment Transfer Assistive Device Gait Belt Front Wheeled Walker Transfers Transfer Destination Bed Bedside Commode Transfer Technique Stand Step Pivot Transfer Ability Level of Assist Moderate Assistance 1 Person Assistance Use of Upper Extremities Gait Assessment Gait Gait Assistance Required: Moderate Assistance 1 Person Assist Distance (Feet) 10 Able to Maintain Weight Bearing Status Yes During Gait Assistive Devices Assistive Device Gait Belt Front Wheeled Walker Gait Deviations General Gait Pattern Antalgic Decreased Stride Length Decreased Feet Clearance Flexed Trunk Factors Limiting Gait Function Factors Limiting Gait Function Decreased Activity Tolerance Decreased Strength Poor Balance Comments Gait Comments Pt required Mod A x1 and cues for mm activation. Stair Climbing Assessment Comments Stair Climbing Comments Unable at this time. M5 PT-IP Objective Assessments Start: 06/08/18 12:29 Freq: NEEDED Status: Active Protocol: Document 06/08/18 12:00 [facility] (Rec: 06/08/18 12:49 [id number]) Orientation Orientation/Cognition Level of Alertness Alert Orientation Name Age Birthday Month Date Year Day of Week Place Situation Language Function Ability No Deficits Noted Safety Awareness Decreased Safety Awareness Memory Description No Deficits Noted Gross Range of Motion Upper Extremity ROM Assessment Within Functional Limits Lower Extremity ROM Assessment Within Functional Limits Strength Upper Extremity Strength Assessment Within Functional Limits Lower Extremity Strength Assessment Bilaterally Impaired Comments Strength Comments 3+/5 bilaterally LEs strength grossly Coordination Assessment Gross Coordination Gross Coordination WNL Sensation Assessment Sensation Gross Sensation Right LE Impaired Left LE Impaired Light Touch Impaired Proprioception (Position) Impaired Muscle Tone Muscle Tone WNL Yes M6 PT-IP Treatment Start: 06/08/18 12:29 Freq: NEEDED Status: Active Protocol: Document 06/12/18 10:20 [facility] (Rec: 06/12/18 11:02 CLB [id number]) Physical Therapy Treatment Exercises Exercises Ankle Pumps Gluteal Sets Quad Sets M7 PT-IP Assessment and Plan Start: 06/08/18 12:29 Freq: NEEDED Status: Active Protocol: Document 06/12/18 10:20 [facility] (Rec: 06/12/18 11:02 [facility] [id number]) PT Summary Assessment and Plan Summary Assessment Summary Pt is SBA/CGA for bed mobility and Mod A during gait. Pt requires Min A for sit-stand with cues for hand placement for safety. Pt ambulated ~5ft then sat on BSC to wash up then ambulated back to bed ~ 5ft. Pt able to sit on BSC at sink to clean up, pt required assist with brushing hair due to limited ROM of bilateral shoulders but was able to brush his teeth. Goals Bed Mobility Goal Standby Assistance Transfer Goal Standby Assistance Front Wheeled Walker Gait Goal Standby Assistance Front Wheel Walker Gait Distance 100 Days to Meet Goals 10 Frequency of Treatment Frequency Of Treatment Once a Day Treatment Plan Physical Therapy Treatment Plan Bed Mobility Training Transfer Training Gait Training Therapeutic Exercise Balance Retraining Discharge Planning Other Recommendations and Next Treatment bed mobs, transfers and gait Focus as able. Recommendations To Nursing Amount of Assist Needed 1 Person Assist Discharge Recommendations PT Discharge Recommendations SNF Rehab
--- NOTE | 2018-06-12 13:08 | PC.NURSE ---
Discharge PIV was removed however midline was placed for IV zosyn at [facility] for 5 additional days. report called to Arcelia at [facility]. Pt took all belongings with him. left around 1300.
--- NOTE | 2018-06-12 17:40 | PC.NURSE ---
pre discharge, pt had a midline iv placed 8cm upper rt arm for group home abx.
== END 2018-06-12 13:00 | DRG 690 ==
LOC: ED 21:08 → AC 21:12
PROVIDERS: Emergency Medicine; Admitting Provider Family Medicine; Emergency Provider Internal Medicine; Family Provider Family Medicine; PCP Family Medicine; Visit Provider Family Medicine
DX: N39.0 Urinary tract infection, site not specified (principal); L97.929 Non-pressure chronic ulcer of unspecified part of left lower leg with unspecified severity; L97.919 Non-pressure chronic ulcer of unspecified part of right lower leg with unspecified severity; E11.22 Type 2 diabetes mellitus with diabetic chronic kidney disease; D63.1 Anemia in chronic kidney disease; Y90.0 Blood alcohol level of less than 20 mg/100 ml; S14.109S Unspecified injury at unspecified level of cervical spinal cord, sequela; B96.89 Other specified bacterial agents as the cause of diseases classified elsewhere; N18.3 Chronic kidney disease, stage 3 (moderate); I12.9 Hypertensive chronic kidney disease with stage 1 through stage 4 chronic kidney disease, or unspecified chronic kidney disease; R53.1 Weakness; F10.10 Alcohol abuse, uncomplicated; W19.XXXA Unspecified fall, initial encounter; Z87.891 Personal history of nicotine dependence; Z79.84 Long term (current) use of oral hypoglycemic drugs; F32.9 Major depressive disorder, single episode, unspecified; G89.29 Other chronic pain
CPT/HCPCS: 36415; 36430; 36591; 71045; 80053; 80320; 81001; 82962; 83605; 83880; 84145; 85025; 85610; 85730; 86850; 86900; 86901; 87040; 87077; 87086; 87186; 87400; 94762; 96374; 97116; 97162; 97165; 97530; 97535; 99214; 99284; 99285; P9016; J0696; J1650; J2060; J2543

== ENCOUNTER → 2018-06-13 06:45 | Outpatient (CLI) | payer MEDICARE, SELFPAY ==
[2018-06-07 21:43] VITALS: BMI 38.2
--- NOTE | 2018-06-13 | DI.CT.S_ITS ---
PROCEDURE: CT ANGIO ABD AORTA RUNOFF INDICATIONS: Type 2 diabetes mellitus with foot ulcer TECHNIQUE: After the administration of intravenous contrast, 2.5 mm sections acquired from T12 to the feet, with optional delayed image acquisition from the knees to the feet. 3-dimensional maximum intensity projection (MIP) coronal and sagittal reformats, and/or 3-dimensional volume rendering reformatting was then performed. For radiation dose reduction, the following was used: automated exposure control. COMPARISON: [facility], CR, XR FOOT RT 2V, 05/30/2018, 12:51. FINDINGS: Image quality: Excellent. Extravascular tissues: Lung bases are clear. Heart size is normal. Liver is normal in size and enhancement. Gallbladder appears normal. Biliary system is non dilated. Pancreas enhances normally. Spleen is normal in size and enhancement. No adrenal nodules. Kidneys are normal in size and enhancement, without hydronephrosis. Non opacified bowel loops demonstrate normal wall thickness and enhancement. No free fluid or air. No retroperitoneal or mesenteric adenopathy. No ventral hernias. Bladder wall thickness is normal. No inguinal hernias or adenopathy. No suspicious bony lesions. No vertebral body compression fractures. Abdominal aorta: There is mild calcific and soft plaque involving the aorta and its main tributaries. No significant stenosis, or aneurysm is found Right lower extremity: Mild atherosclerotic ossific and soft plaque through the lower extremity arterial vasculature with 3 vessel runoff crossing into the calf and two-vessel runoff crossing into the right foot. Metal artifact from right total knee arthroplasty obscures visualization for short segment of the popliteal artery. Left lower extremity: As was seen on the right the lower extremity arterial vasculature shows no significant stenosis with 3 vessel runoff into the left calf and two-vessel runoff crossing into the left foot. IMPRESSION: No aneurysm or high-grade stenosis identified. Small vessel atherosclerotic change below the threshold of detection by CT scanning is the presumed cause for right lower extremity arterial insufficiency. Reportedly there is a right foot nonhealing ulcer. Popliteal artery region metal artifact on the right from right total knee arthroplasty obscured visualization across a short segment of this vessel. Dictated by: Tony Carrillo M.D. on 06/13/2018 at 13:47 Approved by: Tony Carrillo M.D. on 06/13/2018 at 13:52
[2018-06-13 10:33] LABS: Add Manual Diff / Slide Review NO; Basophils Absolute Auto 0 /uL (0-100); Basophils Percent Auto 0.5 % (0-2); Eosinophils Absolute Auto 300 /uL (0-450); Eosinophils Percent Auto 3.9 % (2-4); Hematocrit 27.9 % (41-53); Hemoglobin 9.5 g/dL (13.5-17.5); Lymphocytes Absolute Auto 1100 /uL (1100-4500); Lymphocytes Percent Auto 14.7 % (25-40); Mean Corpuscular HGB Conc 34.1 % (30-36); Mean Corpuscular Hemoglobin 32.6 PG (26-34); Mean Corpuscular Volume 95.7 fL (80-100); Monocytes Absolute Auto 900 /uL (0-900); Monocytes Percent Auto 11.3 % (3-14); Neutrophils Absolute Auto 5400 /uL (1500-7000); Neutrophils Percent Auto 69.6 % (50-75); Platelet Count 339 X10^3/uL (150-400); Red Blood Cell Count 2.92 X10^6/uL (4.5-5.9); Red Cell Distribution Width 16.7 % (11.6-14.8); White Blood Cell Count 7.7 X10^3/uL (4.5-11.0)
[2018-06-13 10:41] LABS: BUN Creatinine Ratio 22.1 (6-22); Blood Urea Nitrogen 42 mg/dL (9-20); Calcium 8.9 mg/dL (8.4-10.2); Carbon Dioxide 31 mmol/L (22-32); Chloride 98 mmol/L (98-107); Estimated Glomerular Filt Rate 35.6 mL/min (>60); Glucose 115 mg/dL (80-110); HEMOLYSIS < 15 (0-50); Sodium 139 mmol/L (137-145)
== END ==
PROVIDERS: Nurse Practitioner Family; Family Provider Family Medicine; PCP Family Medicine; Visit Provider Family Medicine
DX: E11.621 Type 2 diabetes mellitus with foot ulcer (principal); I73.9 Peripheral vascular disease, unspecified; D64.9 Anemia, unspecified; N39.0 Urinary tract infection, site not specified; L97.512 Non-pressure chronic ulcer of other part of right foot with fat layer exposed; I87.313 Chronic venous hypertension (idiopathic) with ulcer of bilateral lower extremity; L97.812 Non-pressure chronic ulcer of other part of right lower leg with fat layer exposed; L97.822 Non-pressure chronic ulcer of other part of left lower leg with fat layer exposed; F10.10 Alcohol abuse, uncomplicated; G90.09 Other idiopathic peripheral autonomic neuropathy; B95.7 Other staphylococcus as the cause of diseases classified elsewhere; Z91.19 Patient's noncompliance with other medical treatment and regimen; L08.9 Local infection of the skin and subcutaneous tissue, unspecified
CPT/HCPCS: 36415; 75635; 80048; 85025; 97597; 99213; Q9967

== ENCOUNTER → 2018-06-13 13:47 | Outpatient (CLI) | payer MEDICARE, SELFPAY ==
[2018-06-07 21:43] VITALS: BMI 38.2
== END ==
PROVIDERS: Family Provider Family Medicine; PCP Family Medicine; Visit Provider Family Medicine
DX: E11.621 Type 2 diabetes mellitus with foot ulcer (principal); L97.512 Non-pressure chronic ulcer of other part of right foot with fat layer exposed; I87.313 Chronic venous hypertension (idiopathic) with ulcer of bilateral lower extremity; L97.812 Non-pressure chronic ulcer of other part of right lower leg with fat layer exposed; L97.822 Non-pressure chronic ulcer of other part of left lower leg with fat layer exposed; I73.9 Peripheral vascular disease, unspecified; F10.10 Alcohol abuse, uncomplicated; G90.09 Other idiopathic peripheral autonomic neuropathy; B95.7 Other staphylococcus as the cause of diseases classified elsewhere; Z91.19 Patient's noncompliance with other medical treatment and regimen; L08.9 Local infection of the skin and subcutaneous tissue, unspecified
CPT/HCPCS: 97597; 99213

== ENCOUNTER → 2018-06-20 09:17 | Outpatient (CLI) | payer MEDICARE, SELFPAY ==
[2018-06-07 21:43] VITALS: BMI 38.2
== END ==
PROVIDERS: Family Provider Family Medicine; PCP Family Medicine; Visit Provider Family Medicine
DX: E11.621 Type 2 diabetes mellitus with foot ulcer (principal); L97.512 Non-pressure chronic ulcer of other part of right foot with fat layer exposed; I87.313 Chronic venous hypertension (idiopathic) with ulcer of bilateral lower extremity; L97.812 Non-pressure chronic ulcer of other part of right lower leg with fat layer exposed; L97.822 Non-pressure chronic ulcer of other part of left lower leg with fat layer exposed; L08.9 Local infection of the skin and subcutaneous tissue, unspecified; F10.10 Alcohol abuse, uncomplicated
CPT/HCPCS: 99213; 99214

== ENCOUNTER → 2018-06-27 09:12 | Outpatient (CLI) | payer SELFPAY ==
[2018-06-07 21:43] VITALS: BMI 38.2
== END ==
PROVIDERS: Family Provider Family Medicine; PCP Family Medicine; Visit Provider Family Medicine
DX: I87.313 Chronic venous hypertension (idiopathic) with ulcer of bilateral lower extremity (principal); L97.812 Non-pressure chronic ulcer of other part of right lower leg with fat layer exposed; L97.822 Non-pressure chronic ulcer of other part of left lower leg with fat layer exposed; F10.10 Alcohol abuse, uncomplicated; G90.09 Other idiopathic peripheral autonomic neuropathy
CPT/HCPCS: 17250; 93922

== ENCOUNTER → 2018-07-04 08:43 | Outpatient (CLI) | payer MEDICARE, SELFPAY ==
[2018-06-07 21:43] VITALS: BMI 38.2
== END ==
PROVIDERS: Family Provider Family Medicine; PCP Family Medicine; Visit Provider Family Medicine
DX: I87.313 Chronic venous hypertension (idiopathic) with ulcer of bilateral lower extremity (principal); L97.812 Non-pressure chronic ulcer of other part of right lower leg with fat layer exposed; L97.822 Non-pressure chronic ulcer of other part of left lower leg with fat layer exposed
CPT/HCPCS: 99213; 99215

== ENCOUNTER → 2018-07-11 09:48 | Outpatient (CLI) | payer MEDICARE, SELFPAY ==
[2018-06-07 21:43] VITALS: BMI 38.2
== END ==
PROVIDERS: Family Provider Family Medicine; PCP Family Medicine; Visit Provider Family Medicine
DX: I87.312 Chronic venous hypertension (idiopathic) with ulcer of left lower extremity (principal); L97.821 Non-pressure chronic ulcer of other part of left lower leg limited to breakdown of skin; I73.9 Peripheral vascular disease, unspecified
CPT/HCPCS: 99213

== ENCOUNTER → 2018-07-27 09:02 | Outpatient (CLI) | payer MEDICARE, SELFPAY ==
[2018-06-07 21:43] VITALS: BMI 38.2
== END ==
PROVIDERS: Family Provider Family Medicine; PCP Family Medicine; Visit Provider Family Medicine
DX: I87.2 Venous insufficiency (chronic) (peripheral) (principal); L97.822 Non-pressure chronic ulcer of other part of left lower leg with fat layer exposed; E11.622 Type 2 diabetes mellitus with other skin ulcer
CPT/HCPCS: 11042

== ENCOUNTER → 2018-08-02 15:06 | Outpatient (CLI) | payer MEDICARE, SELFPAY ==
[2018-06-07 21:43] VITALS: BMI 38.2
== END ==
PROVIDERS: Family Provider Family Medicine; PCP Family Medicine; Visit Provider Family Medicine
DX: I87.312 Chronic venous hypertension (idiopathic) with ulcer of left lower extremity (principal); L97.822 Non-pressure chronic ulcer of other part of left lower leg with fat layer exposed; S80.811A Abrasion, right lower leg, initial encounter
CPT/HCPCS: 97597; 99213

== ENCOUNTER → 2018-08-07 14:49 | Outpatient (CLI) | payer MEDICARE, SELFPAY ==
[2018-06-07 21:43] VITALS: BMI 38.2
== END ==
PROVIDERS: Family Provider Family Medicine; PCP Family Medicine; Visit Provider Family Medicine
DX: I87.313 Chronic venous hypertension (idiopathic) with ulcer of bilateral lower extremity (principal); L97.822 Non-pressure chronic ulcer of other part of left lower leg with fat layer exposed; S80.811A Abrasion, right lower leg, initial encounter; R60.0 Localized edema
CPT/HCPCS: 11042; 87070; 87075; 87077; 87147; 87186; 87205; 99213

== ENCOUNTER → 2018-08-09 12:59 | Outpatient (CLI) | payer MEDICARE, SELFPAY ==
[2018-06-07 21:43] VITALS: BMI 38.2
== END ==
PROVIDERS: Family Provider Family Medicine; PCP Family Medicine; Visit Provider Family Medicine
DX: I87.2 Venous insufficiency (chronic) (peripheral) (principal); L97.822 Non-pressure chronic ulcer of other part of left lower leg with fat layer exposed; S80.811A Abrasion, right lower leg, initial encounter
CPT/HCPCS: 29581

== ENCOUNTER → 2018-08-16 13:02 | Outpatient (CLI) | payer MEDICARE, SELFPAY ==
[2018-06-07 21:43] VITALS: BMI 38.2
== END ==
PROVIDERS: Family Provider Family Medicine; PCP Family Medicine; Visit Provider Family Medicine
DX: I87.313 Chronic venous hypertension (idiopathic) with ulcer of bilateral lower extremity (principal); L97.822 Non-pressure chronic ulcer of other part of left lower leg with fat layer exposed; L97.811 Non-pressure chronic ulcer of other part of right lower leg limited to breakdown of skin; I73.9 Peripheral vascular disease, unspecified; L08.9 Local infection of the skin and subcutaneous tissue, unspecified; B95.61 Methicillin susceptible Staphylococcus aureus infection as the cause of diseases classified elsewhere
CPT/HCPCS: 87070; 87075; 87077; 87186; 87205; 97597; 99214

== ENCOUNTER → 2018-08-24 14:35 | Outpatient (CLI) | payer MEDICARE, SELFPAY ==
[2018-06-07 21:43] VITALS: BMI 38.2
== END ==
PROVIDERS: Family Provider Family Medicine; PCP Family Medicine; Visit Provider Family Medicine
DX: I87.313 Chronic venous hypertension (idiopathic) with ulcer of bilateral lower extremity (principal); L97.822 Non-pressure chronic ulcer of other part of left lower leg with fat layer exposed; L97.812 Non-pressure chronic ulcer of other part of right lower leg with fat layer exposed; I73.9 Peripheral vascular disease, unspecified; L08.9 Local infection of the skin and subcutaneous tissue, unspecified; B95.61 Methicillin susceptible Staphylococcus aureus infection as the cause of diseases classified elsewhere; B96.4 Proteus (mirabilis) (morganii) as the cause of diseases classified elsewhere
CPT/HCPCS: 11042; 11045; 97597; 99214

== ENCOUNTER → 2018-08-31 12:23 | Outpatient (CLI) | payer MEDICARE, SELFPAY ==
[2018-06-07 21:43] VITALS: BMI 38.2
== END ==
PROVIDERS: Family Provider Family Medicine; PCP Family Medicine; Visit Provider Family Medicine
DX: I87.2 Venous insufficiency (chronic) (peripheral) (principal); L97.821 Non-pressure chronic ulcer of other part of left lower leg limited to breakdown of skin; S80.811A Abrasion, right lower leg, initial encounter
CPT/HCPCS: 29581

== ENCOUNTER → 2018-09-14 11:10 | Outpatient (CLI) | payer MEDICARE, SELFPAY ==
[2018-06-07 21:43] VITALS: BMI 38.2
== END ==
PROVIDERS: Family Provider Family Medicine; PCP Family Medicine; Visit Provider Family Medicine
DX: I87.2 Venous insufficiency (chronic) (peripheral) (principal); L97.821 Non-pressure chronic ulcer of other part of left lower leg limited to breakdown of skin; S80.811A Abrasion, right lower leg, initial encounter; R60.0 Localized edema
CPT/HCPCS: 87070; 87075; 87077; 87147; 87205

== ENCOUNTER → 2018-09-19 17:16 | Outpatient (CLI) | payer MEDICARE, MEDICAID, SELFPAY ==
[2018-06-07 21:43] VITALS: BMI 38.2
[2018-09-19 17:50] LABS: Add Manual Diff / Slide Review NO; Basophils Absolute Auto 0 /uL (0-100); Basophils Percent Auto 0.4 % (0-2); Eosinophils Absolute Auto 300 /uL (0-450); Eosinophils Percent Auto 3.6 % (2-4); Hematocrit 31.3 % (41-53); Hemoglobin 10.1 g/dL (13.5-17.5); Lymphocytes Absolute Auto 1000 /uL (1100-4500); Mean Corpuscular HGB Conc 32.4 % (30-36); Mean Corpuscular Hemoglobin 32.4 PG (26-34); Mean Corpuscular Volume 99.9 fL (80-100); Monocytes Absolute Auto 700 /uL (0-900); Monocytes Percent Auto 8.4 % (3-14); Neutrophils Absolute Auto 6800 /uL (1500-7000); Neutrophils Percent Auto 76.6 % (50-75); Platelet Count 306 X10^3/uL (150-400); Red Blood Cell Count 3.13 X10^6/uL (4.5-5.9); Red Cell Distribution Width 15.3 % (11.6-14.8); White Blood Cell Count 8.9 X10^3/uL (4.5-11.0)
[2018-09-19 18:18] LABS: Alanine Aminotransferase 9 IU/L (21-72); Albumin 3.6 g/dL (3.5-5.0); Albumin Globulin Ratio 1.2 (1.0-2.8); Alkaline Phosphatase 108 U/L (38-126); Aspartate Aminotransferase 15 IU/L (17-59); BUN Creatinine Ratio 19.4 (6-22); Bilirubin Total 0.5 mg/dL (0.2-1.3); Blood Urea Nitrogen 35 mg/dL (9-20); Calcium 8.7 mg/dL (8.4-10.2); Carbon Dioxide 26 mmol/L (22-32); Chloride 105 mmol/L (98-107); Estimated Glomerular Filt Rate 37.9 mL/min (>60); Glucose 126 mg/dL (80-110); HEMOLYSIS < 15 (0-50); Potassium 4.4 mmol/L (3.4-5.1); Sodium 141 mmol/L (137-145); Total Protein 6.6 g/dL (6.3-8.2)
== END ==
PROVIDERS: Family Provider Family Medicine; PCP Family Medicine; Visit Provider Family Medicine
DX: R60.0 Localized edema (principal); D64.9 Anemia, unspecified; N19 Unspecified kidney failure
CPT/HCPCS: 36415; 80053; 85025

== ENCOUNTER → 2018-09-24 14:19 | Outpatient (CLI) | payer MEDICARE, SELFPAY ==
[2018-06-07 21:43] VITALS: BMI 38.2
--- NOTE | 2018-09-24 14:26 | DI.RAD.S_ITS ---
PROCEDURE: XR SHOULDER RT MIN 2V INDICATIONS: axial neck pain TECHNIQUE: 3 views of the shoulder were acquired. COMPARISON: [facility], CR, XR CERVICAL SPINE 2V OR 3V, 09/24/2018, 14:45. [facility], CR, XR SHOULDER LT MIN 2V, 09/24/2018, 14:45. [facility], CT, CT CERVICAL SPINE WO CON, 12/25/2017, 11:26. [facility], CT, C-SPINE WITHOUT CONTRAST, 01/24/2017, 11:09. FINDINGS: Bones: No fractures or dislocations there is distortion of the acromioclavicular joint that appears likely degenerative in origin. Glenohumeral joint osteoarthritis is moderate in severity versus severe at 3, are seen overlying the area beneath the coracoid process and also near the glenohumeral articulation. No suspicious bony lesions. Visualized ribs appear intact. Soft tissues: No suspicious soft tissue calcifications. Note is made of prior extensive cervical fusion procedure posteriorly, discussed durin cervical spine plain film imaging from today. Fixation screws involving this fusion are fractured at the T1 and T2 levels, unilaterally on the right at T2 and bilaterally at T1. IMPRESSION: Moderately severe to severe right shoulder osteoarthritis, most pronounced at the acromioclavicular joint, with at least 3 small presumed intra-articular loose bodies. As discussed above entering report from cervical spine plain film imaging today and extensive posterior fusion procedure has been performed predominantly involving the cervical spine but extending into the upper thoracic spine, where T1 and T2 fixation screw fractures are present. Dictated by: Tony Carrillo M.D. on 09/24/2018 at 16:15 Approved by: Tony Carrillo M.D. on 09/24/2018 at 16:18
--- NOTE | 2018-09-24 14:26 | DI.RAD.S_ITS ---
PROCEDURE: XR CERVICAL SPINE 2V OR 3V INDICATIONS: axial neck pain TECHNIQUE: 3 view(s) of the cervical spine were acquired. COMPARISON: [facility], CR, XR CHEST 1V, 06/07/2018, 19:45. [facility], CT, CT CERVICAL SPINE WO CON, 12/25/2017, 11:26. [facility], CT, C-SPINE WITHOUT CONTRAST, 01/24/2017, 11:09. [facility], CT, C-SPINE WITHOUT CONTRAST, 04/09/2015, 17:06. FINDINGS: Bones: No fractures or dislocations to the T1 level. The lateral masses of C1 appear intact on the odontoid view. No suspicious bony lesions. Prior extensive spine fusion surgery posteriorly. Fractures of the lower to long transverse screws involving the upper thoracic spine are noted, unilateral at the lowest screw, bilateral at the next more superior segmental screw. These appear to represent screws involving the posterior elements and extending into the vertebral bodies of T1 and T2. The C7 vertebral segment does not appear to have fixation transversely. C2-C6 fixation screws appear intact. Soft tissues: No prevertebral soft tissue swelling. IMPRESSION: Extensive posterior spine fusion as discussed with the 2 lowest sets of bilateral screws involving T1 and T2, chronic in appearance. At T2, only one of the 2 screws appears fractured. Dictated by: Tony Carrillo M.D. on 09/24/2018 at 16:10 Approved by: Tony Carrillo M.D. on 09/24/2018 at 16:15
--- NOTE | 2018-09-24 14:26 | DI.RAD.S_ITS ---
PROCEDURE: XR SHOULDER LT MIN 2V INDICATIONS: axial neck pain TECHNIQUE: 3 views of the shoulder were acquired. COMPARISON: None. FINDINGS: Bones: No fractures or dislocations, but there is superior subluxation of the humeral head against the undersurface of the acromium indicating full-thickness supraspinatus rotator cuff tear with retraction. There also is moderately severe to severe degenerative osteoarthritic change at the acromioclavicular joint and to a lesser degree the glenohumeral articulation. Extensive cervical spine fusion procedure extends into the upper thoracic spine involving T1 and T2. This has been discussed in detail including fractures of several of the before total fixation screws involving T1 and T2, unilateral on the right at T2 and bilateral at T1. No suspicious bony lesions. Visualized ribs appear intact. Soft tissues: No suspicious soft tissue calcifications. IMPRESSION: Full thickness supraspinatus rotator cuff tear on the left, moderately severe to severe left shoulder osteoarthritis. Extensive prior spine fusion procedure with fractured screws as noted. Please also refer to the cervical spine plain film imaging report from today. Dictated by: Tony Carrillo M.D. on 09/24/2018 at 16:18 Approved by: Tony Carrillo M.D. on 09/24/2018 at 16:20
--- NOTE | 2018-10-01 17:16 | PC.NURSE ---
Wound Nurse Consult Note Cristóbal is not new to me as he is a current wound care patient, although he has missed his appointments the last two weeks. He was also being followed by [facility]. I spoke with his nurse this morning as she called wanting to know when I was coming up for the consult. I asked if patient still had his wraps on and he did, I asked her to cut them off. When I arrived Mr. Tubbs was in bed. He has four wounds on his left leg. I measured the biggest wound which measured 3.3x3.2x .3cm. All the wounds had 100% slough and are draining clear serous fluid. I cleaned his leg and wounds and applied alginate, foam, roll gauze and secured with tape. We will follow up with Mr. Tubbs in the wound care center if not this week than next week.
== END ==
PROVIDERS: Family Provider Family Medicine; PCP Family Medicine; Visit Provider Registered Nurse
DX: M54.2 Cervicalgia (principal); M25.511 Pain in right shoulder; M25.519 Pain in unspecified shoulder; M25.512 Pain in left shoulder; M19.011 Primary osteoarthritis, right shoulder; M19.012 Primary osteoarthritis, left shoulder; L03.119 Cellulitis of unspecified part of limb; R53.1 Weakness; N18.4 Chronic kidney disease, stage 4 (severe); E11.22 Type 2 diabetes mellitus with diabetic chronic kidney disease; I12.9 Hypertensive chronic kidney disease with stage 1 through stage 4 chronic kidney disease, or unspecified chronic kidney disease; D63.1 Anemia in chronic kidney disease; D72.829 Elevated white blood cell count, unspecified; E66.01 Morbid (severe) obesity due to excess calories; K59.00 Constipation, unspecified; R35.0 Frequency of micturition; F10.20 Alcohol dependence, uncomplicated; Z90.49 Acquired absence of other specified parts of digestive tract; F32.9 Major depressive disorder, single episode, unspecified; G89.29 Other chronic pain; M10.9 Gout, unspecified; M19.112 Post-traumatic osteoarthritis, left shoulder; K26.9 Duodenal ulcer, unspecified as acute or chronic, without hemorrhage or perforation; S46.002S Unspecified injury of muscle(s) and tendon(s) of the rotator cuff of left shoulder, sequela; Z98.1 Arthrodesis status
CPT/HCPCS: 72040; 73030; 99215

== ENCOUNTER 2018-09-27 21:57 | Inpatient (IN) | payer MEDICARE, MEDICAID, SELFPAY ==
[2018-06-07 21:43] VITALS: BMI 38.2
[2018-09-27 22:00] VITALS: BP 177/71; PULSE 88; RESP 20; TEMP 36.9; O2SAT 97; BMI 37.3
--- NOTE | 2018-09-27 22:08 | DI.RAD.S_ITS ---
PROCEDURE: XR CHEST 1V INDICATIONS: fall, weakness TECHNIQUE: One view of the chest was acquired. COMPARISON: [facility], CR, XR CHEST 1V, 03/23/2018, 9:18. [facility], CR, XR CERVICAL SPINE 2V OR 3V, 09/24/2018, 14:45. [facility], CR, XR CHEST 1V, 06/07/2018, 19:45. FINDINGS: Surgical changes and devices: Postsurgical changes in the cervical spine and thoracolumbar spine. Lungs and pleura: Lungs are clear. No pleural effusions or pneumothorax. Mediastinum: Mediastinal contours appear normal. Heart size is normal. Bones and chest wall: No suspicious bony lesions. Overlying soft tissues appear unremarkable. IMPRESSION: No acute cardiopulmonary disease. No significant discrepancy with the ER preliminary interpretation. Dictated by: Carol Chun M.D. on 09/28/2018 at 8:05 Approved by: Carol Chun M.D. on 09/28/2018 at 8:06
--- NOTE | 2018-09-27 22:08 | DI.CT.S_ITS ---
PROCEDURE: CT HEAD/BRAIN WO CON INDICATIONS: weakness, falls, head injury TECHNIQUE: Noncontrast 4.5 mm thick angled axial sections acquired from the foramen magnum to the vertex, with coronal and sagittal reformats. For radiation dose reduction, the following was used: automated exposure control, adjustment of mA and/or kV according to patient size. COMPARISON: [facility], CT, CT HEAD/BRAIN WO CON, 12/25/2017, 11:26. [facility], CT, CT HEAD/BRAIN WO CON, 03/31/2018, 13:29. FINDINGS: Image quality: Excellent. CSF spaces: Basal cisterns are patent. No extra-axial fluid collections. The ventricles are dilated but symmetric in size and shape. Brain: No intracranial bleeds or masses. There is cerebral volume loss for age, with resultant ventricular and sulcal prominence. There are periventricular and deep white matter chronic small vessel ischemic changes. There is intracranial internal carotid artery atherosclerosis. Skull and face: Calvarium and visualized facial bones appear intact, without suspicious lesions. Sinuses: Visualized sinuses and mastoids are clear. IMPRESSION: 1. No acute intracranial abnormalities. 2. Cerebral volume loss and chronic microvascular ischemic changes. 3. Ventricular dilation may be secondary to central atrophy or normal hydrocephalus. No significant discrepancy with the warehouse worker 2nd shift radiology preliminary report. Dictated by: Carol Chun M.D. on 09/28/2018 at 7:12 Transcribed by: DWAYNE on 09/28/2018 at 7:13 Approved by: Carol Chun M.D. on 09/28/2018 at 7:24
[2018-09-27 22:25] LABS: Add Manual Diff / Slide Review NO; Basophils Absolute Auto 100 /uL (0-100); Basophils Percent Auto 0.6 % (0-2); Eosinophils Absolute Auto 500 /uL (0-450); Eosinophils Percent Auto 5.1 % (2-4); Hematocrit 29.4 % (41-53); Hemoglobin 9.8 g/dL (13.5-17.5); Lymphocytes Absolute Auto 2000 /uL (1100-4500); Lymphocytes Percent Auto 18.8 % (25-40); Mean Corpuscular HGB Conc 33.2 % (30-36); Mean Corpuscular Volume 99.3 fL (80-100); Monocytes Absolute Auto 900 /uL (0-900); Monocytes Percent Auto 8.5 % (3-14); Neutrophils Absolute Auto 7000 /uL (1500-7000); Platelet Count 277 X10^3/uL (150-400); Red Blood Cell Count 2.96 X10^6/uL (4.5-5.9); White Blood Cell Count 10.5 X10^3/uL (4.5-11.0)
--- NOTE | 2018-09-27 22:27 | ED_ITS ---
HPI - Fall General Chief Complaint: Fall Stated Complaint: Multiple GLF today Time Seen by Provider: 09/27/18 22:00 Source: patient and EMS Mode of arrival: EMS Limitations: no limitations History of Present Illness HPI Narrative: 67-year-old male smoker and heavy drinker presents by EMS for evaluation of 2 falls today. The patient states that he is always a bit unsteady and has balance trouble and has for quite some time. He denies any head neck or back pain as a consequence and states he did not get up because he was weak, not due to an injury. He drinks a pt of vodka daily and this is not abnormal for him. He denies any recent illness. He has had no nausea, vomiting or diarrhea. He denies chest pain or shortness of breath. He denies any fever or chills. He has had the occasion of loss of bladder control over some time and has been mentioned that it is likely his prostate. Related Data Home Medications Medication Instructions Recorded Confirmed citalopram 40 mg PO DAILY 12/25/17 06/07/18 glimepiride 1 mg PO DAILY 03/22/18 09/27/18 doxazosin 4 mg PO BEDTIME 06/07/18 09/27/18 duloxetine 60 mg PO DAILY 06/07/18 09/27/18 etodolac 400 mg PO BID 06/07/18 06/07/18 glipizide 5 mg PO DAILY 06/07/18 06/07/18 furosemide 40 mg PO DAILY 09/27/18 09/27/18 Previous Rx's Medication Instructions Recorded acetaminophen 650 mg PO Q4HR PRN #100 tab 06/12/18 docusate sodium 100 mg PO BID PRN #60 cap 06/12/18 lorazepam 0.5 mg PO BID-TID PRN #30 tab 06/12/18 Allergies Allergy/AdvReac Type Severity Reaction Status Date / Time latex Allergy Mild IRRITATION Verified 09/27/18 22:11 Sulfa (Sulfonamide AdvReac Mild N&V 1HOUR Verified 09/27/18 22:11 Antibiotics) AFTER RX, THINKS IT IS RELATED Review of Systems Constitutional Denies chills, Denies fever(s), Reports frequent falls, Denies lethargy and Reports weakness Eyes Denies change in vision, Denies eye discharge, Denies irritation and Denies loss of vision ENT Ears, Nose, Mouth, and Throat: Denies change in voice, Denies neck pain and Denies sore throat Cardiovascular Denies chest pain, Denies irregular heart rhythm, Denies lightheadedness, Denies palpitations, Denies dyspnea, Denies dyspnea on exertion and Denies orthopnea Respiratory Denies cough, Denies dyspnea, Denies dyspnea on exertion and Denies wheezing Gastrointestinal Gastrointestinal: Denies abdominal pain, Denies change in bowel habits, Denies diarrhea, Denies nausea and Denies vomiting Genitourinary Denies hematuria, Denies flank pain, Denies urinary incontinence and Denies urin hansa urgency Musculoskeletal Denies neck pain Integumentary/Breasts Denies pruritus, Denies erythema, Denies rash and Denies wounds Neurologic Denies confusion, Reports frequent falls, Denies loss of vision and Reports weakness Psychiatric Denies anxiety, Denies confusion, Denies depression, Denies homicidal ideation and Denies suicidal ideation Endocrine Denies palpitations Hematologic/Lymphatic Denies easy bruising Allergic/Immunologic Denies wheezing Exam Narrative Exam Narrative: GENERAL: 67-year-old male appears older than stated age, slightly disheveled, alert and oriented x3 with GCS of 15. No slurring of words HEAD: Atraumatic. Normocephalic. No temporal or scalp tenderness. EYES: Pupils equal round and reactive. Extraocular motions intact. No scleral icterus. No injection or drainage. ENT: Nose without bleeding, purulent drainage or septal hematoma. Throat without erythema, tonsillar hypertrophy or exudate. Uvula midline. Airway patent. NECK: Trachea midline. No JVD or lymphadenopathy. Supple, nontender, no meningeal signs. CARDIOVASCULAR: Regular rate and rhythm without murmurs, gallops, or rubs. RESPIRATORY: Clear to auscultation. Breath sounds equal bilaterally. No wheezes, rales, or rhonchi. GASTROINTESTINAL: Abdomen soft, non-tender, nondistended. No hepato- splenomegaly, or palpable masses. No guarding. EXTREMITIES: No clubbing, cyanosis, or edema. No joint tenderness, effusion, or edema noted. BACK: Nontender without deformity or crepitance. No flank tenderness. NEURO: AOx3. SKIN: No rash or erythema. Initial Vital Signs Initial Vital Signs: Vital Signs Temperature 98.4 F 09/27/18 22:00 Pulse Rate 88 09/27/18 22:00 Respiratory Rate 20 09/27/18 22:00 Blood Pressure 177/71 H 09/27/18 22:00 Pulse Oximetry 97 09/27/18 22:00 [facility] Medical History Anemia associated with chronic renal failure (Chronic) Symptomatic anemia (Chronic) GI bleed (Resolved) Diabetes type 2, controlled (Chronic) Alcoholism (Chronic) Chronic kidney disease, stage 4 (severe) (Chronic) Depression (Chronic) Hypertension (Chronic) Hyperparathyroidism (Chronic) Chronic pain (Chronic) Duodenal ulcer (Acute) Left leg pain (Chronic) Gout, arthropathy (Chronic) History of cervical fracture (Resolved) Surgical History History of colectomy (Resolved) Social History household members: friend(s) and other Smoking Status: Former smoker alcohol intake: current Social History household members: friend(s) and other Smoking Status: Former smoker alcohol intake: current Procedures Laceration Repair Laceration 1: Site: scalp Size (cm): 3 Description: linear Depth: simple, single layer Local Anesthetic: lidocaine 1% and with epi Amount of anesthesia used (mL): 3 Pre-repair: wound explored and irrigated extensively Skin layer closed with: keven Course Course Narrative: 67-year-old male chronically ill patient is much more weak than normal. He typically gets around with the use of a walker and can get himself to the bathroom and perform his ADLs. Today EMS was dispatched twice to pick him up and on the 2nd occurrence he was brought to . He had some expiratory wheeze and hypoxia which was improved with bronchodilators and oxygen by nasal cannula. Attempts were made to road test and he requires significant assistance even standing at the side of the bed. He has no focal neurologic findings. Head CT shows dilated ventricles demonstrating chronic change versus normal pressure hydrocephalus. Lab work is essentially at his baseline. Chest x-ray shows no suggestion acute process. Patient is clearly not fit to go home and poses significant risk if his discharge. He will require hospitalization for oxygen, desaturations and further evaluation of his ability to take care of himself at home, likely including a PT evaluation Orders Ordered: ED Orders 09/27/18 22:08 CT head/brain wo con Stat XR chest 1V Stat EKG-12 Lead Stat 09/27/18 22:10 Basic Metabolic Panel Stat Complete Blood Count AUTO DIFF Stat Troponin I Stat 09/28/18 01:45 Urinalysis and Microscopic Stat Urine Culture Stat 09/28/18 02:42 Consult to Discharge Planning Routine Consult to Physical Therapy Evaluate & Treat 09/28/18 03:52 Consult to Dietitian, Adult Routine 09/28/18 05:00 Basic Metabolic Panel Stat Complete Blood Count AUTO DIFF Stat Dextrose (D50w) 25 gm IV PRN PRN PRN Reason: Hypoglycemia Sodium Chloride (Normal Saline 0.9%) 1,000 mls @ 80 mls/hr IV CONT DAVID Last Admin: 09/28/18 03:15 Dose: 80 mls/hr Insulin Aspart (Novolog Flexpen) 0 unit SUBCUT ACHS DAVID; Protocol Discontinued Medications Albuterol/Ipratropium (Duoneb) 3 ml INH NOW ONE Stop: 09/27/18 22:21 Last Admin: 09/27/18 22:31 Dose: 3 ml Sodium Chloride (Normal Saline 0.9%) 1,000 mls @ 1,000 mls/hr IV BOLUS ONE Stop: 09/27/18 23:05 Last Infusion: 09/28/18 02:08 Dose: 0 mls/hr Infusion: 09/27/18 23:27 Dose: 800 mls/hr Admin: 09/27/18 22:57 Dose: 200 mls/hr Thiamine HCl 100 mg/ Dextrose 51 mls @ 204 mls/hr IV NOW ONE Stop: 09/27/18 22:27 Last Infusion: 09/27/18 23:12 Dose: 0 mls/hr Admin: 09/27/18 22:57 Dose: 204 mls/hr Ceftriaxone Sodium/Dextrose (Rocephin) 1 gm in 50 mls @ 100 mls/hr IV NOW ONE Stop: 09/28/18 02:19 Last Infusion: 09/28/18 02:17 Dose: 0 mls/hr Admin: 09/28/18 02:03 Dose: 100 mls/hr Vital Signs - 8 hr 09/27/18 22:00 09/27/18 22:30 09/27/18 22:31 Temperature 98.4 F Pulse Rate 88 71 Respiratory Rate 20 25 H Blood Pressure 177/71 H Blood Pressure [Right Arm] 138/58 L Pulse Oximetry 97 94 09/27/18 23:00 09/28/18 00:06 09/28/18 01:33 Temperature Pulse Rate 98 H 109 H 104 H Respiratory Rate 22 24 26 H Blood Pressure Blood Pressure [Right Arm] 155/65 H 174/74 H 139/73 Pulse Oximetry 97 95 98 09/28/18 02:17 09/28/18 02:44 Temperature 98.2 F Pulse Rate 105 H 101 H Respiratory Rate 26 H 18 Blood Pressure 176/90 H 148/79 H Blood Pressure [Right Arm] Pulse Oximetry 94 99 - Fall Lab Data Result diagrams: 09/27/18 22:10 09/27/18 22:10 Lab Results 09/27/18 09/27/18 09/27/18 Range/Units 22:10 22:10 22:10 WBC 10.5 (4.5-11.0) X10^3/uL RBC 2.96 L (4.5-5.9) X10^6/uL Hgb 9.8 L (13.5-17.5) g/dL Hct 29.4 L (41-53) % MCV 99.3 (80-100) fL MCH 33.0 (26-34) PG MCHC 33.2 (30-36) % RDW 15.0 H (11.6-14.8) % Plt Count 277 (150-400) X10^3/uL Neut % (Auto) 67.0 (50-75) % Lymph % (Auto) 18.8 L (25-40) % Wilkes % (Auto) 8.5 (3-14) % Eos % (Auto) 5.1 H (2-4) % Baso % (Auto) 0.6 (0-2) % Neut # (Auto) 7000 (1795-2726) /uL Lymph # (Auto) 2000 (1826-2724) /uL Wilkes # (Auto) 900 (0-900) /uL Eos # (Auto) 500 H (0-450) /uL Baso # (Auto) 100 (0-100) /uL Sodium 138 (137-145) mmol/L Potassium 4.1 (3.4-5.1) mmol/L Chloride 104 (98-107) mmol/L Carbon Dioxide 26 (22-32) mmol/L BUN 29 H (9-20) mg/dL Creatinine 1.90 H (0.66-1.25) mg/dL Estimated GFR 35.6 L (>60) mL/min BUN/Creatinine Ratio 15.3 (6-22) Glucose 135 H (80-110) mg/dL Calcium 8.1 L (8.4-10.2) mg/dL Troponin I < 0.012 (0.01-0.034) ng/mL Urine Color Urine Appearance Urine pH (4.5-8.0) Ur Specific [place] (1.000-1.035) Urine Protein (Negative) Urine Glucose (UA) (Negative) g/dL Urine Ketones (NEGATIVE) Urine Occult Blood (Negative) Urine Nitrate (Negative) Urine Bilirubin (NEGATIVE) Urine Urobilinogen (0.2) E.U./dL Ur Leukocyte Esterase (NEGATIVE) Urine RBC (0-5/HPF) Urine WBC (0-5/HPF) Ur Squamous Epith Cells (0-5/HPF) Urine Bacteria (None) Ur Culture Indicated? 09/28/18 Range/Units 01:45 WBC (4.5-11.0) X10^3/uL RBC (4.5-5.9) X10^6/uL Hgb (13.5-17.5) g/dL Hct (41-53) % MCV (80-100) fL MCH (26-34) PG MCHC (30-36) % RDW (11.6-14.8) % Plt Count (150-400) X10^3/uL Neut % (Auto) (50-75) % Lymph % (Auto) (25-40) % Wilkes % (Auto) (3-14) % Eos % (Auto) (2-4) % Baso % (Auto) (0-2) % Neut # (Auto) (5734-4443) /uL Lymph # (Auto) (2869-3514) /uL Wilkes # (Auto) (0-900) /uL Eos # (Auto) (0-450) /uL Baso # (Auto) (0-100) /uL Sodium (137-145) mmol/L Potassium (3.4-5.1) mmol/L Chloride (98-107) mmol/L Carbon Dioxide (22-32) mmol/L BUN (9-20) mg/dL Creatinine (0.66-1.25) mg/dL Estimated GFR (>60) mL/min BUN/Creatinine Ratio (6-22) Glucose (80-110) mg/dL Calcium (8.4-10.2) mg/dL Troponin I (0.01-0.034) ng/mL Urine Color Yellow Urine Appearance Slightly cloudy Urine pH 7.0 (4.5-8.0) Ur Specific [place] 1.010 (1.000-1.035) Urine Protein 1+ H (Negative) Urine Glucose (UA) Negative (Negative) g/dL Urine Ketones Negative (NEGATIVE) Urine Occult Blood 3+ H (Negative) Urine Nitrate Negative (Negative) Urine Bilirubin Negative (NEGATIVE) Urine Urobilinogen 0.2 (0.2) E.U./dL Ur Leukocyte Esterase 3+ H (NEGATIVE) Urine RBC 1-5/hpf D (0-5/HPF) Urine WBC 30-100/hpf H (0-5/HPF) Ur Squamous Epith Cells 0-1 /hpf (0-5/HPF) Urine Bacteria Moderate (10-30) H (None) Ur Culture Indicated? Specimen cultured Point of Care Testing Glucose POC 145 Discharge Plan Departure Patient Disposition: Admitted As Inpatient Clinical Impression: Acute UTI, Chronic kidney disease, stage 4 (severe), Generalized weakness, Hypoxia Discharge Date/Time: 09/28/18 02:21 Interventions: ED Discharge Assessment Last Done: 09/28/18 02:17 Referrals: Jim Quintana MD [Primary Care Provider] - Admit Date/Time: 09/28/18 01:41 Admit Provider: Jim Quintana
[2018-09-27 22:30] VITALS: BP 138/58
[2018-09-27 22:31] VITALS: PULSE 71; RESP 25; O2SAT 94
[2018-09-27] MEDS: ALBUTEROL/IPRATROPIUM 3 ML AMPUL INH (22:31)
[2018-09-27 22:32] LABS: BUN Creatinine Ratio 15.3 (6-22); Blood Urea Nitrogen 29 mg/dL (9-20); Calcium 8.1 mg/dL (8.4-10.2); Carbon Dioxide 26 mmol/L (22-32); Chloride 104 mmol/L (98-107); Estimated Glomerular Filt Rate 35.6 mL/min (>60); Glucose 135 mg/dL (80-110); HEMOLYSIS < 15 (0-50); Potassium 4.1 mmol/L (3.4-5.1); Sodium 138 mmol/L (137-145)
[2018-09-27 22:44] LABS: Troponin I < 0.012 ng/mL (0.01-0.034)
[2018-09-27] MEDS: SODIUM CHLORIDE 0.9% 1,000 ML 200 ML IV (22:57)
[2018-09-27] MEDS: THIAMINE 100 MG in DEXTROSE 5 % IN WATER 50 ML 204 ML IV (22:57)
[2018-09-27 23:00] VITALS: BP 155/65; PULSE 98; RESP 22; O2SAT 97
--- NOTE | 2018-09-27 23:01 | PC.NURSE ---
Completed med rec to best ability with medications EMS brought with pt. Pt unable to recall rest of home meds. Med rec incomplete at this time.
[2018-09-28] VITALS (16 sets, daily range): BP systolic 139–176; BP diastolic 63–90; PULSE 72–109; RESP 16–26; TEMP 36.3–36.9; O2SAT 93–100; BMI 37.3
--- NOTE | 2018-09-28 01:30 | PC.NURSE ---
Called and updated daughter at 0130
--- NOTE | 2018-09-28 01:39 | PC.NURSE ---
I inserted a latex free 16 gauge higgins catheter with sterile technique.it drained approx 800 ml urine.He was unable to urinate before,I tried standing him to urinate but he was too unsteady to.He was also unable to urinate lying on his side in [facility].
[2018-09-28 01:54] LABS: Bilirubin Urine UA NEGATIVE (NEGATIVE); Color Urine UA YELLOW; Glucose Urine UA NEGATIVE (Negative); Ketones Urine UA NEGATIVE (NEGATIVE); Leukocyte Esterase Urine UA 3+ (NEGATIVE); Nitrite Urine UA NEGATIVE (Negative); Occult Blood Urine UA 3+ (Negative); Protein Urine UA 1+ (Negative); Urobilinogen Urine UA 0.2 E.U./dL (0.2)
[2018-09-28 01:58] LABS: Appearance Urine UA Slightly Cloudy
[2018-09-28 01:59] LABS: RBC Urine 1-5/HPF (0-5/HPF); Squamous Epithelial Cell Urine 0-1 /HPF (0-5/HPF)
[2018-09-28 02:00] LABS: Bacteria Urine Moderate (10-30); Culture Indicated Urine Specimen Cultured
[2018-09-28 02:01] LABS: WBC Urine 30-100/HPF (0-5/HPF)
[2018-09-28] MEDS: CEFTRIAXONE 1 GM/50 ML FROZ.PIGGY IV ×2 (02:03→21:13)
[2018-09-28] MEDS: SODIUM CHLORIDE 0.9% 1,000 ML 80 ML IV ×2 (03:15→16:12)
--- NOTE | 2018-09-28 03:58 | PC.NURSE ---
Pt admitted from ED with SOB. Pt fell at home twice yesterday. Hx metabolic encephalopathy, sleep apnea, obesity, IDDM, and stage 4 chronic kidney disease per ED report. Pt on glipizide at home. Pt reports he drinks 1 pint of vodka at home everyday. CIWA protocol initiated, no current orders to treat withdrawal. LP attempted in ED, unsuccessful. CT and CXR done. Pt with significant sleep apnea. RT at bedside, pt on Venti mask, now at 50%. Pt needs reminders to breath deeply on Venti mask to maintain sats >90%. On NC pt desats to 75% and lips turn dusky. Pt states he knows he has sleep apnea and doesn't want CPAP. On con't o2 sat monitor. Pt unable to stand to void or manipulate urinal, folely patent. UOP is dark and cloudy, urine culture pending results. Received one dose Rocephin in ED. Wells is latex free. Bilat lower extremity wounds with cellulitis and ulcers, now wrapped in debbie bandages with telfa pads. Plan for PT, monitor CIWA scores, confer with provider regarding CPAP/effective o2 support. Consult with wound care for bilat lower extremity wounds. Pt needs code status order, pt has living will in red chart. Complete med recon.
[2018-09-28 05:53] LABS: BUN Creatinine Ratio 15.3 (6-22); Blood Urea Nitrogen 26 mg/dL (9-20); Calcium 7.9 mg/dL (8.4-10.2); Carbon Dioxide 27 mmol/L (22-32); Chloride 104 mmol/L (98-107); Estimated Glomerular Filt Rate 40.5 mL/min (>60); Glucose 151 mg/dL (80-110); HEMOLYSIS < 15 (0-50); Potassium 4.2 mmol/L (3.4-5.1); Sodium 140 mmol/L (137-145)
[2018-09-28 05:55] LABS: Hematocrit 29.2 % (41-53); Hemoglobin 9.8 g/dL (13.5-17.5); Mean Corpuscular HGB Conc 33.4 % (30-36); Mean Corpuscular Hemoglobin 33.2 PG (26-34); Mean Corpuscular Volume 99.2 fL (80-100); Platelet Count 256 X10^3/uL (150-400); Red Blood Cell Count 2.94 X10^6/uL (4.5-5.9); Red Cell Distribution Width 15.1 % (11.6-14.8); White Blood Cell Count 9.6 X10^3/uL (4.5-11.0)
[2018-09-28 05:57] LABS: Add Manual Diff / Slide Review YES
[2018-09-28 06:17] LABS: Neutrophils Absolute Manual 6432 /uL (3000-5900); Total Cells Counted 100
[2018-09-28 06:18] LABS: RBC Morphology Normal Morphology
[2018-09-28] MEDS: INSULIN ASPART 100 UNIT/ML INSULN PEN SUBCUT ×3 (07:59→16:54)
--- NOTE | 2018-09-28 09:29 | PT.IIE ---
Surgical History (Last Reviewed 09/27/18 @ 23:58 by Yonny Reynoso DO) History of colectomy (Resolved) Medical History (Last Reviewed 09/27/18 @ 23:58 by Yonny Reynoso DO) Anemia associated with chronic renal failure (Chronic) Symptomatic anemia (Chronic) GI bleed (Resolved) Diabetes type 2, controlled (Chronic) Alcoholism (Chronic) Chronic kidney disease, stage 4 (severe) (Chronic) Depression (Chronic) Hypertension (Chronic) Hyperparathyroidism (Chronic) Chronic pain (Chronic) Duodenal ulcer (Acute) Left leg pain (Chronic) Gout, arthropathy (Chronic) History of cervical fracture (Resolved) Physical Therapy Inpatient Evaluation/Re-Eval M1 PT/OT-IP Prior Functional Status Start: 09/28/18 10:33 Freq: NEEDED Status: Active Protocol: Document 09/28/18 09:29 AB (Rec: 09/28/18 10:48 AB [id number]) Medical Review Prior Functional Status Medical History Reviewed Yes Communication able to make needs known Mobility and Gait pt stated that he is modified independent with mobilities but has h/o falls; uses a manual w/c indoors but uses a 4WW for outdoor mobility Activities of Daily Living and IADL's has a bath aide that comes in to assist him with showers once per week has caregivers that comes in 2x/week for ~ 2hours also has homehealth PT and OT Social History Household Members other Living Arrangements House Number of Floors (Floors) One Floor Number of Stairs To Enter/Railing? ramp to enter Home Environment Standard Height Toilet Tub/Shower Home Equipment Tub Transfer Ladle Operator Held Shower Grab Bars Near Toilet Grab Bars In Shower Additional Social History Comment stated that his sister drives him to his medical appointment M2 PT-IP Current Condition Start: 09/28/18 10:33 Freq: NEEDED Status: Active Protocol: Document 09/28/18 09:29 AB (Rec: 09/28/18 10:48 AB [id number]) Physical Therapy Current Condition Current Condition Evaluation Date 09/28/18 Treatment Diagnosis UTI; chronic kidney dse; generalized weakness Onset Date 09/28/18 Precautions Other Precautions falls M3 PT-IP Subjective Start: 09/28/18 10:33 Freq: NEEDED Status: Active Protocol: Document 09/28/18 09:29 AB (Rec: 09/28/18 10:48 AB [id number]) Subjective Physical Therapy Visit Type Type Initial Evaluation Visit Start Time 09:29 Visit Stop Time 10:11 Total Visit Minutes 42 Number of BIOLOGY FACULTY MEMBER Visits 0 Physical Therapy Visit Comments Patient Comments pt agreeable to do PT Therapy Pain Assessment Pain Present Pain Present Pain Reported Location Neck Intensity 6 Scale Used Numeric (1 - 10) M4 PT-IP Mobility and Gait Start: 09/28/18 10:33 Freq: NEEDED Status: Active Protocol: Document 09/28/18 09:29 AB (Rec: 09/28/18 10:48 AB [id number]) PT-Bed Mobility Assessment Supine to Sit Supine to Sit Maximum Assistance Bedrails PT-Transfer Assessment Sit to and From Stand Sit to and from Stand Minimal Assistance 1 Person Assistance Equipment Transfer Assistive Device Gait Belt Front Wheeled Walker Orthotic/Prosthetic Devices or Brace: No Transfers Transfer Destination Toilet Transfer Technique Stand Step Pivot Transfer Ability Level of Assist Minimal Assistance 1 Person Assistance Use of Upper Extremities Comments Mobility Comments pt completed sit to stand min A. assisted to the bedside commode min A and cues. pt with unsteady standing balance . pt requires cues for safety . pt completed sit to stand from the bedside commode min A and cues. NAC assist pt with hygiene care and brief management. Gait Assessment Gait Gait Assistance Required: Minimum Assistance Distance (Feet) 20 Able to Maintain Weight Bearing Status Yes During Gait Assistive Devices Assistive Device Gait Belt Front Wheeled Walker Orthotic/Prosthetic Devices or Brace: No Gait Deviations General Gait Pattern Ataxic Decreased Stride Length Decreased Feet Clearance Wide Based Gait Factors Limiting Gait Function Factors Limiting Gait Function Decreased Activity Tolerance Decreased Sensation Decreased Strength Limited Range of Motion Pain Poor Balance Poor Safety Awareness PT-Balance Assessment Sitting Balance and Reactions Static Sitting Balance Ability Good Dynamic Sitting Balance Ability Good Standing Balance and Reactions Static Standing Balance Ability Fair Dynamic Standing Balance Ability Poor Device Used FWW M5 PT-IP Objective Assessments Start: 09/28/18 10:33 Freq: NEEDED Status: Active Protocol: Document 09/28/18 09:29 AB (Rec: 09/28/18 10:48 AB [id number]) Orientation Orientation/Cognition Level of Alertness Alert Orientation Name Place Situation Language Function Ability No Deficits Noted Safety Awareness Decreased Safety Awareness Memory Description Short Term Impaired Gross Range of Motion Lower Extremity ROM Assessment Within Functional Limits Strength Lower Extremity Strength Assessment Bilaterally Impaired Comments Strength Comments RLE 4-/5 LLE 3+/5 Sensation Assessment Sensation Gross Sensation Right LE Impaired Left LE Impaired Light Touch Impaired Proprioception (Position) Impaired Sensation Description Numbness Comments Sensation Comments per pt: LLE below knee 50% sensation L foot: 10% R foot: 20% RLE 40% Fingers 100% Muscle Tone Muscle Tone WNL Yes M6 PT-IP Treatment Start: 09/28/18 10:33 Freq: NEEDED Status: Active Protocol: Document 09/28/18 09:29 AB (Rec: 09/28/18 10:48 AB [id number]) Physical Therapy Treatment Education Education Provided Safety M7 PT-IP Assessment and Plan Start: 09/28/18 10:33 Freq: NEEDED Status: Active Protocol: Document 09/28/18 09:29 AB (Rec: 09/28/18 10:48 AB [id number]) PT Summary Assessment and Plan Potential Rehabilitation Potential Fair Status of Condition at Evaluation Stable Summary Impairments Pain ROM Strength Balance Coordination Sensation Tone Cognition Bed Mobility Transfers Gait Activity Tolerance Assessment Summary pt requiring min A with mobility and has decrease safety awareness affecting function. d/c plan depending on progress. will have to assess further. pt stated that last 2 falls he had was when he was getting up from his recliner and slipped down. PT to do transfer training with pt, balance and ambulation training. Goals Bed Mobility Goal Independent Transfer Goal Independent Gait Goal Standby Assistance Front Wheel Walker Four Wheel Walker Gait Distance 200 Days to Meet Goals 5 Frequency of Treatment Frequency Of Treatment Once a Day Treatment Plan Physical Therapy Treatment Plan Bed Mobility Training Transfer Training Gait Training Therapeutic Exercise Balance Retraining Discharge Planning Neuromuscular Re-ed Coordination Retraining Manual Therapy Other Recommendations and Next Treatment ambulation using 4WW if Focus appropriate; Transfer training on different surfaces without AD Recommendations To Nursing Amount of Assist Needed 1 Person Assist Discharge Recommendations PT Discharge Recommendations Home with Assistance Home Health SNF Rehab Other Discharge Recommendations pt may need more caregiver hours to assist him at home for safety
--- NOTE | 2018-09-28 11:03 | DIET.PN ---
Dietary Progress Note Assessment: Dietary consult request for 67 yom related to low yahir score. Pt admitted for multiple GLF. PMHX includes metabolic encephalopathy, IDDM, stage 4 CKD. He is a smoker and heavy drinker (1 pint vodka/day). He has bilateral lower wounds w/ cellulitis and ulcers. HT: 177.8cm WT: 117.9kg BMI: 37.3 (obese) Labs: Gluc POC: 199, 135, 151 BUN: 26 Cr: 1.7 eGFR: 40.5 MNA: 13 Yahir: 16 (CR reports <15) Current Diet: Carb Consistent Nutrition Diagnosis: Altered nutrition related laboratory values r/t impared glucose metabolism aeb pt report, DX diabetes, previous diet high in refined carbohydrate. Interventions: 1. Discuss pathophysiology of diabetes. 2. Discuss importance of consistent carb intake and amounts needed per meal. Provide handouts. 3. Provide ONS Luis Enrique morning/evening to support wound healing. Monitoring/Evaluations: PO intake, BG, ONS acceptance, need for additional education.
[2018-09-28] MEDS: DULOXETINE 30 MG CAPSULE 60 MG PO (12:21)
[2018-09-28] MEDS: GLIMEPIRIDE 2 MG TABLET 1 MG PO (12:21)
[2018-09-28] MEDS: ACETAMINOPHEN 325 MG TABLET 650 MG PO ×2 (12:27→17:57)
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
--- NOTE | 2018-09-28 15:05 | CM.IDA ---
Addendum entered by NOELLE Stone 09/28/18 15:28: In addition: Pt follows up regularly at the wound care clinic for LE wounds. Original Note: Initial DCP Assessment Note: Pt is a 67 yo male, resident of [place]. Pt now inpt. as of admission for multiple falls before presentation to the ED. PCP: Dr Quintana Payer: Medicare/Medicaid Reviewed chart to include prior SW notes from pt's admission in June 2018. At that time, pt had DC to [facility]. Met w/pt this morning, explained SW role. Pt explains he lives in a Condo w/roommates. Pt admits to drinking approx. 3-4 vodka drinks, one shot each, daily. He drinks approx. a fifth of vodka once weekly which makes him drunk. Pt was sober for 5 years, that was 5 years ago, he explains I can stop drinking whenever I want to and I didn't feel much better sober than I do now. Pt denies going through w/d. Pt further explains to this SENIOR ASIC ENGINEER he often drinks when lonely and bored. He doesn't find enjoyment in anything in life at this time; pt denies suicidal ideation. Pt is not interested in treatment or addiction counseling resources at this time. Pt says he has [facility] for PT and cgs through [facility], pt says Astrid at [facility] set up his cgs (?) and they stop by to clean and do chores. Pt agreeable to this SENIOR ASIC ENGINEER or other team members calling his sister Rosa for more information as needed. Pt states his DPOA is his sister, not his dtr (?) Discussed Dr Quintana's recommendation for SNF, pt agreeable and knows that he would do well w/additional structure, nursing care and physical therapy. Pt requests [facility], reviewed Medicare Choice List for b/u choices and pt refused stating he would go home upon DC if [facility] unable to accommodate. Later received msg from Stalin at [facility] P# [phone] requesting DC date so that cgs could be schedule for pt. Placed call to August at [facility], gave referral. Dr Quintana said pt would remain here over the weekend. pt will be able to use his Medicare SNF benefit 7.29.19 Following closely for coordination of the safest DCP available to pt. PASRR still needs to be completed. NOELLE Stone Discharge Planning/Care Management CM Discharge Assessment Start: 09/28/18 14:35 Freq: Status: Active Protocol: Document 09/28/18 14:50 JW (Rec: 09/28/18 15:05 CARMITA [id number]) Discharge Planning Assessment Assigned Comparison Shopper NOELLE Caro DPOA/Assigned Designee Name Rosa Tubbs, pt states sister is his DPOA Contact Information [phone] Advance Directives? Yes: Health care directive/ DPOA for health care Advance Directives on File No History Provided By Patient Medical Record Prior Living Arrangements Apartment/Condo Household Members friend(s) other Independent with ADL's No Is patient alert and oriented? Yes: With some cognitive changes sec to h/o UTI and ETOH Discharge Plan Fdc Facility Referrals Initiated Fdc Referral to [facility] made today. Awaiting CB Medicare Choice List Provided Yes SNF/HH Preference [facility], pt says he will go home if [facility] is not an option Whiteboard Updated in Patient Room with Yes name and ext. # of Comparison Shopper Review Status In Process
[2018-09-28] MEDS: LIDOCAINE PATCH 1 EACH ADH..PATCH TOP (17:58)
[2018-09-28] MEDS: DOXAZOSIN 4 MG TABLET PO (20:04)
[2018-09-28] MEDS: MELATONIN 3 MG TABLET 6 MG PO (20:46)
[2018-09-29] VITALS (15 sets, daily range): BP systolic 124–158; BP diastolic 64–78; PULSE 61–77; RESP 11–20; TEMP 36.4–36.8; O2SAT 81–100
[2018-09-29] MEDS: ACETAMINOPHEN 325 MG TABLET 650 MG PO ×4 (00:10→17:54)
--- NOTE | 2018-09-29 00:36 | PC.NURSE ---
Addendum entered by Sommer Ludnberg R.N. 09/29/18 00:42: Fall risk score is high and bed alarm is activated. Original Note: Patient is oriented except to day of month. Breath sounds CTA but refusing to leave CPAP on as feels he is suffocating and sat dropped down to 81% when asleep so placed on oxygen at 1L/min per HFNC with sat now at 97%. HRR. BP trends higher at 148/80. Denies nausea. BT present. Denies dysuria, frequency, urgency or incontinence; reportedly uses urinal. Is able to turn self in bed but prefers to lie on back. Has chronic neck/shoulder pain from previous fall and states he is able to tolerate 6/10; pain currently 6/10 and medicated with scheduled Tylenol and has Lidocaine patch on. Bilateral LE dressings placed 2d ago by wound care are CDI. Has 1+ bilateral LE edema. Has chronic neuropathy in bilateral LE toes to below knee; unchanged. CIWA score is 1 for being incorrect on date and numbness from neuropathy.
--- NOTE | 2018-09-29 02:32 | PC.ADMIT ---
[email or web address] Admission Note: The patient,Cristóbal Tubbs,67 y/o, was given written information regarding hospital policies, unit procedures and contact persons. Patient's smoking status: Former smoker. Vital Signs - 8 hr 09/28/18 20:00 09/28/18 20:04 09/28/18 21:48 Temperature 97.6 F Pulse Rate 76 72 73 Respiratory Rate 18 16 Blood Pressure 156/63 H 151/80 H Pulse Oximetry 98 96 09/28/18 23:05 09/28/18 23:52 09/29/18 00:00 Temperature 97.6 F Pulse Rate 78 Respiratory Rate 18 Blood Pressure 148/80 H Pulse Oximetry 95 96 81 L 09/29/18 00:26 Temperature Pulse Rate Respiratory Rate Blood Pressure Pulse Oximetry 97
[2018-09-29] MEDS: SODIUM CHLORIDE 0.9% 1,000 ML 80 ML IV (04:32)
[2018-09-29] MEDS: PANTOPRAZOLE 20 MG TABLET PO (06:10)
[2018-09-29 06:24] LABS: Add Manual Diff / Slide Review NO; Basophils Absolute Auto 0 /uL (0-100); Basophils Percent Auto 0.3 % (0-2); Eosinophils Absolute Auto 400 /uL (0-450); Eosinophils Percent Auto 3.9 % (2-4); Hematocrit 26.6 % (41-53); Lymphocytes Absolute Auto 1200 /uL (1100-4500); Lymphocytes Percent Auto 12.7 % (25-40); Mean Corpuscular HGB Conc 33.6 % (30-36); Mean Corpuscular Hemoglobin 33.5 PG (26-34); Mean Corpuscular Volume 99.6 fL (80-100); Monocytes Absolute Auto 800 /uL (0-900); Monocytes Percent Auto 8.9 % (3-14); Neutrophils Absolute Auto 6800 /uL (1500-7000); Neutrophils Percent Auto 74.2 % (50-75); Platelet Count 208 X10^3/uL (150-400); Red Blood Cell Count 2.67 X10^6/uL (4.5-5.9); Red Cell Distribution Width 14.8 % (11.6-14.8); White Blood Cell Count 9.1 X10^3/uL (4.5-11.0)
[2018-09-29 06:42] LABS: Alanine Aminotransferase 12 IU/L (21-72); Albumin 3.2 g/dL (3.5-5.0); Albumin Globulin Ratio 1.1 (1.0-2.8); Alkaline Phosphatase 89 U/L (38-126); Aspartate Aminotransferase 14 IU/L (17-59); BUN Creatinine Ratio 17.3 (6-22); Bilirubin Total 0.3 mg/dL (0.2-1.3); Blood Urea Nitrogen 26 mg/dL (9-20); Calcium 7.8 mg/dL (8.4-10.2); Carbon Dioxide 26 mmol/L (22-32); Chloride 105 mmol/L (98-107); Estimated Glomerular Filt Rate 46.8 mL/min (>60); Globulin 2.9 g/dL (1.7-4.1); Glucose 157 mg/dL (80-110); HEMOLYSIS < 15 (0-50); Potassium 3.9 mmol/L (3.4-5.1); Sodium 140 mmol/L (137-145); Total Protein 6.1 g/dL (6.3-8.2)
[2018-09-29 06:44] LABS: B Type Natriuretic Peptide < 100 (<100)
--- NOTE | 2018-09-29 08:52 | PM.PN.1 ---
Subjective Date Patient Seen: 09/29/18 Time Patient Seen: 08:52 Interval history: Patient lying in hospital bed in no apparent distress. Feeling better than on admit. States in general he has been feeling more run down. He has previously had anemia requiring transfusions and feels similar to this feels just run down. He denies any headache. He denies any chest pain or shortness of breath. He has had some intermittent constipation and blood associated with straining but no black tarry blood or hematemesis. Will order melanotic stools. He has had no abdominal pain. He has had no fevers chills or rashes. Reviewed chart met with patient Reviewed past medical history Twelve point review of systems is negative other than above Exam Vital Signs (past 8 hours): - 09/29/18 03:17 09/29/18 05:24 09/29/18 07:40 Temperature 97.5 F L Pulse Rate 77 Respiratory Rate 11 L Blood Pressure 149/74 H Pulse Oximetry 97 95 97 Oxygen Delivery Method High Flow Nasal Cannula Oxygen Flow Rate 1 Narrative Exam Narrative: Alert and oriented x3 in no apparent distress HEENT: Unremarkable Neck: Supple without adenopathy thyromegaly or jugular venous distention Chest: Clear to auscultation without wheezes rhonchi or crackles Cor: Regular rate and rhythm without murmur, distant S1 and S2 Abdomen: Positive bowel sounds, soft, nontender, nondistended, obese Extremities: Trace edema with wrap in place due to chronic venous stasis ulcers Neurologic exam nonfocal decreased sensation in the feet and digits. Objective Labs Result Diagrams: 09/29/18 05:59 09/29/18 05:59 Labs: Laboratory Results - last 24 hr 09/29/18 09/29/18 05:59 05:59 WBC 9.1 RBC 2.67 L Hgb 9.0 L Hct 26.6 L MCV 99.6 MCH 33.5 MCHC 33.6 RDW 14.8 Plt Count 208 Neut % (Auto) 74.2 Lymph % (Auto) 12.7 L [place] % (Auto) 8.9 Eos % (Auto) 3.9 Baso % (Auto) 0.3 Neut # (Auto) 6800 Lymph # (Auto) 1200 [place] # (Auto) 800 Eos # (Auto) 400 Baso # (Auto) 0 Sodium 140 Potassium 3.9 Chloride 105 Carbon Dioxide 26 BUN 26 H Creatinine 1.50 H Estimated GFR 46.8 L BUN/Creatinine Ratio 17.3 Glucose 157 H Calcium 7.8 L Total Bilirubin 0.3 AST 14 L ALT 12 L Alkaline Phosphatase 89 B-Natriuretic Peptide < 100 Total Protein 6.1 L Albumin 3.2 L Globulin 2.9 Albumin/Globulin Ratio 1.1 Assessment & Plan Assessment & Plan narrative: 67-year-old male admitted for fall, UTI and overall dehydration and deconditioning Assessment 1. UTI, afebrile and normal white blood cell count with urine culture pending Plan: Continue on same ceftriaxone Assessment 2. Alcohol abuse currently not interested in treatment and on CIWA protocol without problems Plan: Continue the same Assessment 3. Normocytic anemia suspect multifactorial. Plan: Continue to monitor. Continue PPI. Guaiac stools. Assessment 4. Type 2 diabetes well controlled on low-dose glimepiride Plan: Continue the same. Continue to monitor blood sugars. Assessment 5. Chronic venous stasis ulcers with chronic wounds followed by wound care Plan: Wound care consult has been made. He is due to have the bandages changed tomorrow and anticipate this will be done on Monday by wound care here in the hospital. Assessment 6. GI prophylaxis Plan: Continue on proton pump inhibitor orally Assessment 7. Previous history of GI bleed with anemia but no evidence of acute GI bleed Plan: Continue on proton pump inhibitor. Guaiac stools. Continue to monitor. Assessment 8. peripheral neuropathy with frequent falls and overall deconditioning Plan: PT eval and treat. Will need skilled care facility to for rehab. Will continue duloxetine Assessment 9. Depression no acute issues Plan: Continue on duloxetine and citalopram Assessment 10. Status post fall with head laceration stable Plan: Continue to monitor. No evidence of concussion. PT Quality VTE Deep Vein Thrombosis/Pulmonary Embolism Present on Admission: No
[2018-09-29] MEDS: ENOXAPARIN 40 MG/0.4 ML SYRINGE SUBCUT (09:27)
[2018-09-29] MEDS: FUROSEMIDE 40 MG TABLET PO (09:27)
[2018-09-29] MEDS: DULOXETINE 30 MG CAPSULE 60 MG PO (09:28)
[2018-09-29] MEDS: GLIMEPIRIDE 2 MG TABLET 1 MG PO (09:28)
[2018-09-29] MEDS: INSULIN ASPART 100 UNIT/ML INSULN PEN SUBCUT ×2 (09:29→12:17)
[2018-09-29] MEDS: SODIUM CHLORIDE 0.9% FLUSH 10 ML IV ×2 (10:27→20:31)
--- NOTE | 2018-09-29 11:00 | PT.IPTN ---
Current Diagnoses Urinary tract infection, site not specified (09/28/18) Physical Therapy Treatment Note M2 PT-IP Current Condition Start: 09/28/18 10:33 Freq: NEEDED Status: Active Protocol: Document 09/28/18 09:29 AB (Rec: 09/28/18 10:48 AB [id number]) Physical Therapy Current Condition Current Condition Evaluation Date 09/28/18 Treatment Diagnosis UTI; chronic kidney dse; generalized weakness Onset Date 09/28/18 Precautions Other Precautions falls M3 PT-IP Subjective Start: 09/28/18 10:33 Freq: NEEDED Status: Active Protocol: Document 09/29/18 11:00 GGD (Rec: 09/29/18 12:32 GGD [id number]) Subjective Physical Therapy Visit Type Type Treatment Note Visit Start Time 10:30 Visit Stop Time 11:00 Total Visit Minutes 30 Number of ESTATE PLANNING PARALEGAL Visits 1 Physical Therapy Visit Comments Patient Comments Pt willing to work with therapy. M4 PT-IP Mobility and Gait Start: 09/28/18 10:33 Freq: NEEDED Status: Active Protocol: Document 09/29/18 11:00 GGD (Rec: 09/29/18 12:32 GGD [id number]) PT-Bed Mobility Assessment Supine to Sit Supine to Sit Standby Assistance Head of Bed Elevated Bedrails PT-Transfer Assessment Sit to and From Stand Sit to and from Stand Contact Guard Assistance Use of Upper Extremities Equipment Transfer Assistive Device Gait Belt Front Wheeled Walker Orthotic/Prosthetic Devices or Brace: No Transfers Transfer Destination Bed Chair Transfer Ability Level of Assist Contact Guard Assistance Use of Upper Extremities Gait Assessment Gait Gait Assistance Required: Contact Guard Assist Distance (Feet) 60 Able to Maintain Weight Bearing Status Yes During Gait Assistive Devices Assistive Device Gait Belt Front Wheeled Walker Orthotic/Prosthetic Devices or Brace: No Gait Deviations General Gait Pattern Ataxic Decreased Stride Length Decreased Feet Clearance Wide Based Gait Factors Limiting Gait Function Factors Limiting Gait Function Decreased Activity Tolerance Decreased Sensation Decreased Strength Limited Range of Motion Pain Poor Balance Poor Safety Awareness Comments Gait Comments ambulated 15 feet x 4 with seat rest breaks. M5 PT-IP Objective Assessments Start: 09/28/18 10:33 Freq: NEEDED Status: Active Protocol: Document 09/28/18 09:29 AB (Rec: 09/28/18 10:48 AB [id number]) Orientation Orientation/Cognition Level of Alertness Alert Orientation Name Place Situation Language Function Ability No Deficits Noted Safety Awareness Decreased Safety Awareness Memory Description Short Term Impaired Gross Range of Motion Lower Extremity ROM Assessment Within Functional Limits Strength Lower Extremity Strength Assessment Bilaterally Impaired Comments Strength Comments RLE 4-/5 LLE 3+/5 Sensation Assessment Sensation Gross Sensation Right LE Impaired Left LE Impaired Light Touch Impaired Proprioception (Position) Impaired Sensation Description Numbness Comments Sensation Comments per pt: LLE below knee 50% sensation L foot: 10% R foot: 20% RLE 40% Fingers 100% Muscle Tone Muscle Tone WNL Yes M6 PT-IP Treatment Start: 09/28/18 10:33 Freq: NEEDED Status: Active Protocol: Document 09/28/18 09:29 AB (Rec: 09/28/18 10:48 AB [id number]) Physical Therapy Treatment Education Education Provided Safety M7 PT-IP Assessment and Plan Start: 09/28/18 10:33 Freq: NEEDED Status: Active Protocol: Document 09/29/18 11:00 GGD (Rec: 09/29/18 12:32 GGD [id number]) PT Summary Assessment and Plan Summary Assessment Summary Pt improving with bed mobility . He unsteady with standing balance and gait. He has decrease activity tolerance. He would benefit from SNF to improve functional mobility. Frequency of Treatment Frequency Of Treatment Once a Day Treatment Plan Physical Therapy Treatment Plan Bed Mobility Training Transfer Training Gait Training Therapeutic Exercise Balance Retraining Discharge Planning Neuromuscular Re-ed Coordination Retraining Manual Therapy Recommendations To Nursing Amount of Assist Needed 1 Person Assist Discharge Recommendations PT Discharge Recommendations SNF Rehab
--- NOTE | 2018-09-29 13:52 | PC.NURSE ---
Shift summary: Awake and alert, oriented X3. CIWA score 1. No active s/sx alcohol withdrawal. Lungs CTA. HRR. Dressings to BLE's C/D/I. Circulation to BLE's WNL, reports chronic neuropathy. Reports chronic 6/10 pain in his neck and shoulders and is on scheduled Tylenol & Lidocaine patch for the same. SpO2 on room air awake mid-upper 90's. Does de-sat when asleep, so continue to monitor. Uses urinal independently. 1-person assist with transfers. Able to make needs known and calls appropriately. Up in chair at this time. Light in reach, chair alarm on.
--- NOTE | 2018-09-29 16:35 | PC.NURSE ---
Addendum entered by John Weiss R.N. 09/29/18 19:01: Patient has dressings to bilat. SEVILLA. Patient is being seen as a out-pt at the wound care center in [facility]. Patient reports he gets his dressings changed every 4 days and last change was on Monday the 26 of September. A consult is ordered for would care to come see and assess dressings. Patient is aware of this consult and states he may or may not want dressings changed on Monday (when they are due), that he may just wait until Monday when wound care possibly may come to consult. Drg. are CDI. Original Note: Patient reports pain 08/13 to nurse. States this is chronic pain and that he lives at this pain level daily. Discussed pain med options and other therapeutic treatments we can implement for comfort. Patient per orders is suppose to have Lidocaine patch on, however per documentation in [place], the Lidocaine patch was placed on earlier then sched. time and removed 3 minutes after placement. Patient and this nursed discussed that per his orders he is suppose to have a Lidocaine patch on now and removed at 2100 this evening. However, given that it is unclear when patch was removed (patient states it was sometime this morning) that we must wait until 0900 on 09/30 to administer another patch. Patient is agreeable to plan and states understanding. Discussed when next dose of Tylenol is due. Patient agreeable to try warm blanket for shoulder discomfort.
[2018-09-29] MEDS: DOXAZOSIN 4 MG TABLET PO (20:31)
[2018-09-29] MEDS: CEFTRIAXONE 1 GM/50 ML FROZ.PIGGY IV (21:28)
[2018-09-29] MEDS: HYDROCODONE/ACET 5/325 TABLET 2 TAB PO (21:42)
[2018-09-30] VITALS (12 sets, daily range): BP systolic 115–166; BP diastolic 77–98; PULSE 65–72; RESP 16–20; TEMP 36.4–36.8; O2SAT 96–100
[2018-09-30] MEDS: ACETAMINOPHEN 325 MG TABLET 650 MG PO ×3 (00:08→17:31)
--- NOTE | 2018-09-30 04:01 | PC.NURSE ---
Pt is on 1 liter humidified air NC tonight. Pt has bilateral leg ulcers with covering and goes to wound clinic for dressing changes. Dressings are clean/dry/intact and Pt's CMS is intact distally. Pt's stated chronic pain is 6/10. Pt has CIWA score of 0 on this shift.
[2018-09-30 05:43] LABS: Add Manual Diff / Slide Review NO; Basophils Absolute Auto 0 /uL (0-100); Basophils Percent Auto 0.3 % (0-2); Eosinophils Absolute Auto 500 /uL (0-450); Eosinophils Percent Auto 5.6 % (2-4); Hematocrit 26.7 % (41-53); Hemoglobin 8.8 g/dL (13.5-17.5); Lymphocytes Absolute Auto 1100 /uL (1100-4500); Mean Corpuscular HGB Conc 33.1 % (30-36); Mean Corpuscular Volume 99.8 fL (80-100); Monocytes Absolute Auto 600 /uL (0-900); Monocytes Percent Auto 7.3 % (3-14); Neutrophils Absolute Auto 6000 /uL (1500-7000); Neutrophils Percent Auto 73.8 % (50-75); Platelet Count 208 X10^3/uL (150-400); Red Blood Cell Count 2.68 X10^6/uL (4.5-5.9); Red Cell Distribution Width 14.9 % (11.6-14.8); White Blood Cell Count 8.1 X10^3/uL (4.5-11.0)
[2018-09-30 05:50] LABS: Alanine Aminotransferase 13 IU/L (21-72); Albumin 3.3 g/dL (3.5-5.0); Albumin Globulin Ratio 1.2 (1.0-2.8); Alkaline Phosphatase 77 U/L (38-126); Aspartate Aminotransferase 12 IU/L (17-59); BUN Creatinine Ratio 16.9 (6-22); Bilirubin Total 0.3 mg/dL (0.2-1.3); Blood Urea Nitrogen 27 mg/dL (9-20); Calcium 8.2 mg/dL (8.4-10.2); Carbon Dioxide 27 mmol/L (22-32); Chloride 103 mmol/L (98-107); Estimated Glomerular Filt Rate 43.5 mL/min (>60); Globulin 2.8 g/dL (1.7-4.1); Glucose 163 mg/dL (80-110); HEMOLYSIS < 15 (0-50); Potassium 4.1 mmol/L (3.4-5.1); Sodium 137 mmol/L (137-145); Total Protein 6.1 g/dL (6.3-8.2)
[2018-09-30] MEDS: LIDOCAINE PATCH 1 EACH ADH..PATCH TOP (08:32)
[2018-09-30] MEDS: ENOXAPARIN 40 MG/0.4 ML SYRINGE SUBCUT (08:32)
[2018-09-30] MEDS: SODIUM CHLORIDE 0.9% FLUSH 10 ML IV ×3 (08:33→21:57)
[2018-09-30] MEDS: DULOXETINE 30 MG CAPSULE 60 MG PO (08:33)
[2018-09-30] MEDS: PANTOPRAZOLE 20 MG TABLET PO (08:33)
[2018-09-30] MEDS: FUROSEMIDE 40 MG TABLET PO (08:33)
[2018-09-30] MEDS: GLIMEPIRIDE 2 MG TABLET 1 MG PO (08:33)
[2018-09-30] MEDS: INSULIN ASPART 100 UNIT/ML INSULN PEN SUBCUT ×2 (08:34→17:32)
[2018-09-30] MEDS: HYDROCODONE/ACET 5/325 TABLET 1 TAB PO ×2 (08:42→14:56)
--- NOTE | 2018-09-30 10:32 | PC.NURSE ---
Pt states he is feeling well today. Has chronic neck and shoulder pain and was given 1 Vicodin and lido patches were placed. Pt stated that helped his pain. Spoke with Pt about CPAP use at night and he stated he will not use a CPAP . Pt wore O2 overnight and O2 was removed and Pt remains at 98-100% O2 sat on RA.
--- NOTE | 2018-09-30 12:58 | PT.IPTN ---
Current Diagnoses Urinary tract infection, site not specified (09/28/18) Physical Therapy Treatment Note M2 PT-IP Current Condition Start: 09/28/18 10:33 Freq: NEEDED Status: Active Protocol: Document 09/28/18 09:29 AB (Rec: 09/28/18 10:48 AB [id number]) Physical Therapy Current Condition Current Condition Evaluation Date 09/28/18 Treatment Diagnosis UTI; chronic kidney dse; generalized weakness Onset Date 09/28/18 Precautions Other Precautions falls M3 PT-IP Subjective Start: 09/28/18 10:33 Freq: NEEDED Status: Active Protocol: Document 09/30/18 11:05 AR (Rec: 09/30/18 11:37 AR [email or web address]) Subjective Physical Therapy Visit Type Type Treatment Note Visit Start Time 10:20 Visit Stop Time 11:00 Total Visit Minutes 40 Number of TOWN CLERK Visits 0 Physical Therapy Visit Comments Patient Comments Pt willing to work with PT and willing to amb. Pt reported feeling fatigued after short amb and some pain in shoulders when performing sit<>stand. M4 PT-IP Mobility and Gait Start: 09/28/18 10:33 Freq: NEEDED Status: Active Protocol: Document 09/30/18 11:05 AR (Rec: 09/30/18 11:37 AR [email or web address]) PT-Bed Mobility Assessment Supine to Sit Supine to Sit Standby Assistance PT-Transfer Assessment Sit to and From Stand Sit to and from Stand Contact Guard Assistance Use of Upper Extremities Equipment Transfer Assistive Device Gait Belt Front Wheeled Walker Orthotic/Prosthetic Devices or Brace: No Transfers Transfer Destination Bed Chair Wheelchair Transfer Technique Independent, uncontrolled decent to sitting Transfer Ability Level of Assist Contact Guard Assistance Use of Upper Extremities Comments Mobility Comments Pt able to stand from bed x2 and WC with CGA although he reported difficulty when standing from WC because it was lower than he was used to. Pt able to stand unassisted and pull of briefs. Uncontrolled decent to sitting , even with cueing. Gait Assessment Gait Gait Assistance Required: Contact Guard Assist Distance (Feet) 20 Able to Maintain Weight Bearing Status Yes During Gait Assistive Devices Assistive Device Gait Belt Front Wheeled Walker Orthotic/Prosthetic Devices or Brace: No Gait Deviations General Gait Pattern Decreased Stride Length Decreased Feet Clearance Flexed Trunk Wide Based Gait Factors Limiting Gait Function Factors Limiting Gait Function Decreased Activity Tolerance Decreased Sensation Decreased Strength Limited Range of Motion Pain Poor Balance Poor Safety Awareness Comments Gait Comments amb 10 feet x2 with seated rest breaks. pt reported feeling fatigued PT-Balance Assessment Sitting Balance and Reactions Static Sitting Balance Ability Good Dynamic Sitting Balance Ability Good Standing Balance and Reactions Static Standing Balance Ability Fair Dynamic Standing Balance Ability Poor Device Used FWW M5 PT-IP Objective Assessments Start: 09/28/18 10:33 Freq: NEEDED Status: Active Protocol: Document 09/28/18 09:29 AB (Rec: 09/28/18 10:48 AB [id number]) Orientation Orientation/Cognition Level of Alertness Alert Orientation Name Place Situation Language Function Ability No Deficits Noted Safety Awareness Decreased Safety Awareness Memory Description Short Term Impaired Gross Range of Motion Lower Extremity ROM Assessment Within Functional Limits Strength Lower Extremity Strength Assessment Bilaterally Impaired Comments Strength Comments RLE 4-/5 LLE 3+/5 Sensation Assessment Sensation Gross Sensation Right LE Impaired Left LE Impaired Light Touch Impaired Proprioception (Position) Impaired Sensation Description Numbness Comments Sensation Comments per pt: LLE below knee 50% sensation L foot: 10% R foot: 20% RLE 40% Fingers 100% Muscle Tone Muscle Tone WNL Yes M6 PT-IP Treatment Start: 09/28/18 10:33 Freq: NEEDED Status: Active Protocol: Document 09/30/18 11:05 AR (Rec: 09/30/18 11:37 AR [email or web address]) Physical Therapy Treatment Exercises Exercises Ankle Pumps Seated Knee Flexion/Extension Education Education Provided Safety Other Treatments Other Treatment Performed seated hip abd&add (w manual resistance), seated marches ( hip flex). 10 reps each exercise. Pt reported pain in R knee and L ankle during exercise. M7 PT-IP Assessment and Plan Start: 09/28/18 10:33 Freq: NEEDED Status: Active Protocol: Document 09/30/18 11:05 AR (Rec: 09/30/18 11:37 AR [email or web address]) PT Summary Assessment and Plan Potential Rehabilitation Potential Fair Status of Condition at Evaluation Stable Summary Impairments Pain ROM Strength Balance Coordination Sensation Tone Cognition Bed Mobility Transfers Gait Activity Tolerance Assessment Summary Pt was able to perform supine< >sit w/o head of bed elevated. Pt is CGA for gait and standing d/t poor safety awareness, weakness and loss of sensation in LE. Pt has dec activity tolerance with amb, but was able to perfrom seated exercises w minimal inc in fatigue. Pt O2 sat remained above 94% for entire session and only quickly dropped after supine<>sit. O2 sat returned to 98% after short period of sitting. Pt would benefit from SNF to inc activity tolerance and improve functional mobility. Goals Bed Mobility Goal Independent Transfer Goal Independent Gait Goal Standby Assistance Front Wheel Walker Four Wheel Walker Gait Distance 200 Days to Meet Goals 5 Frequency of Treatment Frequency Of Treatment Once a Day Treatment Plan Physical Therapy Treatment Plan Bed Mobility Training Transfer Training Gait Training Therapeutic Exercise Balance Retraining Discharge Planning Neuromuscular Re-ed Coordination Retraining Manual Therapy Other Recommendations and Next Treatment amb w 4WW. Educate on safety Focus during transfers. Transfer training without AD Recommendations To Nursing Amount of Assist Needed 1 Person Assist Discharge Recommendations PT Discharge Recommendations SNF Rehab
--- NOTE | 2018-09-30 14:07 | CM.DPC ---
DCP Cont: Per MD, pt likely medically stable for d/c to SNF tomorrow and SW updated her that [facility] can accept and need for hard script copies for class 3 and signed med rec for SNF. SW met bedside with pt and explained role and updated white board and confirmed with pt that he is still agreeable with SNF at d/c. SW updated him that [facility] can accept under just his MCR benefits for max of 20 days if needed and pt agreeable. SW confirmed that pt thinks both his Dtr and his sister Rosa are his DPOAs but his sister has more availability than his Dtr. SW completed PASRR for SNF. Plan: SW to follow for likely pt d/c to [facility] tomorrow if remains medically stable. Gemma Choi MSW
--- NOTE | 2018-09-30 14:32 | P.PN_ITS ---
Subjective Date Patient Seen: 09/30/18 Time Patient Seen: 14:24 Interval history: Patient doing well other than having neck and shoulder pain. He requested hydrocodone to treat this. His previously has been on high-dose narcotics. He has not been on these recently. He states he has cut down on alcohol and is not drinking regularly and has not had any alcohol for over week. His CIWA protocol continues to be low scores. He denies any other complaints. Melatonin was not effective for sleep. He has not had a bowel movement today but he says this is normal for him. He feels that he is getting stronger with physical therapy. The plan is for him to go to skilled care facility tomorrow. He denies any headaches or chest pain or shortness of breath or confusion. Twelve point review of systems is negative for any black tarry stools, hematochezia, abdominal pain, reflux, hematemesis, urine symptoms, abdominal pain His appetite has been normal. Exam Vital Signs (past 8 hours): - 09/30/18 08:00 09/30/18 08:30 09/30/18 08:45 Temperature 97.7 F Pulse Rate 68 Respiratory Rate 18 Blood Pressure 142/80 H Pulse Oximetry 98 98 98 09/30/18 12:00 Temperature 97.8 F Pulse Rate 65 Respiratory Rate 18 Blood Pressure 147/82 H Pulse Oximetry 100 Fraction of Inspired Oxygen 21 Oxygen Delivery Method Room Air Oxygen Flow Rate 0 Narrative Exam Narrative: Alert and oriented x3. Sitting upright in a chair in no apparent distress. He does not have his legs elevated. HEENT unremarkable Neck: Supple without adenopathy or thyromegaly or jugular venous distention or carotid bruit Chest: Clear to auscultation without wheezes rhonchi or crackles Cor: Regular rate and rhythm with distant S1 and S2, obese Extremities: bandages some bilateral lower extremities with slight swelling Skin: No rash Objective Labs Result Diagrams: 09/30/18 05:24 09/30/18 05:24 Labs: Laboratory Results - last 24 hr 09/30/18 09/30/18 05:24 05:24 WBC 8.1 RBC 2.68 L Hgb 8.8 L Hct 26.7 L MCV 99.8 MCH 33.0 MCHC 33.1 RDW 14.9 H Plt Count 208 Neut % (Auto) 73.8 Lymph % (Auto) 13.0 L [place] % (Auto) 7.3 Eos % (Auto) 5.6 H Baso % (Auto) 0.3 Neut # (Auto) 6000 Lymph # (Auto) 1100 [place] # (Auto) 600 Eos # (Auto) 500 H Baso # (Auto) 0 Sodium 137 Potassium 4.1 Chloride 103 Carbon Dioxide 27 BUN 27 H Creatinine 1.60 H Estimated GFR 43.5 L BUN/Creatinine Ratio 16.9 Glucose 163 H Calcium 8.2 L Total Bilirubin 0.3 AST 12 L ALT 13 L Alkaline Phosphatase 77 Total Protein 6.1 L Albumin 3.3 L Globulin 2.8 Albumin/Globulin Ratio 1.2 Assessment & Plan Assessment & Plan narrative: 67-year-old male admitted for UTI by and decreased conditioning Assessment 1. UTI. Urine culture grew out Proteus mirabilis sensitive to cephalosporins. Plan: Continue on ceftriaxone. Plan is for transfer to skilled care facility tomorrow and will transfer out on cephalexin for 6 more days. Assessment 2. Normocytic anemia slightly worsen. No evidence of acute blood loss but history of GI bleed Plan: Continue with guaiac stools. Recheck CBC tomorrow. Continue to monitor. Hold NSAIDs. Assessment 3. Stage 3 chronic kidney disease with acute injury improving Plan: Continue to monitor. Treat UTI. Recheck in a.m.. Avoid NSAIDs. Assessment 4. History of alcohol abuse states he has cut down on alcohol. Is on CIWA protocol and doing well. Plan: Continue the same Assessment 5. Degenerative joint disease with chronic pain. Plan will provide oxycodone without Tylenol. Will stop the hydrocodone. He wi ll use it sparingly. We discussed the addictive properties and that this is not a long-term prescription. He voices understanding. Assessment 6. GI prophylaxis Plan: Continue on proton pump inhibitor Assessment 7. Type 2 diabetes on glimepiride stable Plan continue same monitoring in same medications and same diabetic diet Assessment 8. Venous stasis changes with lower extremity edema and chronic ulcers under wound care Plan: Wound care eval tomorrow Assessment 9. Depression appears stable Plan: Continue outpatient treatment. Assessment 10. DVT prophylaxis Plan: Continue Lovenox Quality VTE Deep Vein Thrombosis/Pulmonary Embolism Present on Admission: No
--- NOTE | 2018-09-30 20:13 | PC.NURSE ---
Responded to pt chair alarm. pt was up on BSC and stated that he needed to go, but it was just gas. Re-enforced pt using call light, he agreed and asked for mick oleksandr. I replied with no because the doctor ordered ADA diet, he stated that they were sugar free to which I asked him to read the nutrition facts, but he was unable to read the can's label (there are 17g of sugar). I asked if he wanted water, but the pt refused. I gave him the call light and a warm blanket. pt them asked if he could me. I declined the offer.
[2018-09-30] MEDS: DOXAZOSIN 4 MG TABLET PO (20:50)
[2018-09-30] MEDS: CEFTRIAXONE 1 GM/50 ML FROZ.PIGGY IV (21:58)
[2018-09-30] MEDS: SODIUM CHLORIDE 0.9% 250 ML 21 ML IV (21:58)
[2018-10-01] MEDS: ACETAMINOPHEN 325 MG TABLET 650 MG PO ×3 (00:04→12:19)
[2018-10-01 00:21] VITALS: O2SAT 98
[2018-10-01] MEDS: OXYCODONE IR 5 MG TABLET PO ×3 (01:28→12:22)
[2018-10-01] MEDS: PANTOPRAZOLE 20 MG TABLET PO (05:50)
[2018-10-01 06:00] VITALS: BP 151/72; PULSE 73; RESP 18; TEMP 36.4; O2SAT 96
[2018-10-01 08:00] VITALS: BP 148/76; PULSE 66; RESP 19; TEMP 36.5; O2SAT 96
--- NOTE | 2018-10-01 08:58 | PM.DS.1 ---
History of Present Illness Chief complaint: Multiple GLF today Discharge Providers Date of admission: 09/28/18 01:41 Discharge Date: 10/01/18 Primary care physician: Jim Quintana MD Consults: 09/28/18 02:42 Consult to Discharge Planning Routine Comment: Consult to Physical Therapy Evaluate & Treat Comment: Physician Instructions: Evaluate and Treat 09/28/18 03:52 Consult to Dietitian, Adult Routine Comment: Reason For Exam: love scale <15 09/28/18 21:16 Consult to Wound Care Routine Comment: Consulting Provider: [facility] 09/29/18 08:50 Consult to Inspection Clerk Routine Comment: 09/29/18 10:05 Consult to Occupational Therapy Evaluate & Treat Comment: Physician Instructions: Evaluate and treat Discharge provider: Shawna Santoyo MD Summary Discharge Diagnosis: UTI improved on ceftriaxone Deconditioning Acute on chronic kidney failure, improved Peripheral neuropathy unchanged Depression stable Diabetes stable Chronic venous stasis changes with nonhealing wounds stable Hospital Course: Patient was hospitalized for UTI, dehydration and deconditioning with multiple chronic underlying medical problems. He was treated with IV ceftriaxone, physical therapy and was placed on his outpatient medications. His blood sugars remained stable. He continue on same diuretic and was in improved condition but in need of continued physical therapy and [facility] He will need wound care to follow and will need changing his dressing today which will be arranged as an outpatient. He will follow up with his primary care provider Dr. Quintana next week. He will continue his outpatient medications. He is given a short prescription for oxycodone for his neck and back pain. he is given Keflex 500 mg p.o. t.i.d. for 5 days to treat the remainder of his urinary tract infection. He received 3 days of IV ceftriaxone. Status at Discharge Functional status at discharge: uses cane/walker Overall status at discharge: patient is progressing back to baseline Time Spent with Patient Greater than 30 minutes Exam Vital Signs (past 8 hours): - 10/01/18 06:00 Temperature 97.5 F L Pulse Rate 73 Respiratory Rate 18 Blood Pressure 151/72 H Pulse Oximetry 96 Fraction of Inspired Oxygen 21 Oxygen Delivery Method Room Air Oxygen Flow Rate 0 Narrative Exam Narrative: Patient alert and oriented in no apparent distress Neck is supple without adenopathy tenderness paravertebral muscles Chest: Clear to auscultation without wheezes rhonchi or crackles Cor: Regular rate and rhythm without murmur Abdomen: Positive bowel sounds, soft, nontender, nondistended, obese Extremities: Bandages bilateral lower extremities. Moves all extremities well. No significant swelling. Good capillary refill time. Objective Labs Result Diagrams: 09/30/18 05:24 09/30/18 05:24 Discharge Plan Discharge Plan Patient Disposition: SNF Transfer to: [facility] certify the [facility] care is medically necessary on a continuing basis for any conditions for which he/ she received care during this hospitalization.: Yes The receiving facility has agreed to accept transfer and provide medical treatment.: Yes Discharge Med Rec/Prescriptions Prescriptions: New oxycodone 5 mg Tablet 5 mg PO Q4HR PRN (Reason: Pain, Moderate (4-6)) Qty: 20 RF: 0 Continued doxazosin 4 mg Tablet 4 mg PO BEDTIME RF: 0 acetaminophen 325 mg Tablet 650 mg PO Q4HR PRN (Reason: As Needed For Fever/Mild Pain) Qty: 100 RF: 0 lorazepam 0.5 mg Tablet 0.5 mg PO BID-TID PRN (Reason: Anxiety) Qty: 30 RF: 1 furosemide 40 mg Tablet 40 mg PO DAILY RF: 0 duloxetine 60 mg capsule,delayed release(DR/EC) 60 mg PO DAILY RF: 0 lidocaine [Lidoderm] 5 % Adhesive Patch,Medicated 1 patch TOPICAL DAILY RF: 0 polyethylene glycol 3350 17 gram/dose Powder 17 g PO DAILY PRN (Reason: Constipation) RF: 0 citalopram 20 MG tablet 20 mg PO DAILY RF: 0 glimepiride 1 mg tablet 1 mg PO DAILY RF: 0 Follow up/Referrals: Jim Quintana MD [Primary Care Provider] - Discharge Health Status Brief summary of current health status: admitted for weakness and uti, improved Discharge Data Primary Care Provider: Jim Quintana Attending Provider: Jim Quintana Admit Date/Time: 09/28/18 01:41 Quality VTE Deep Vein Thrombosis/Pulmonary Embolism Present on Admission: No
--- NOTE | 2018-10-01 09:00 | PT.IPTN ---
Current Diagnoses Urinary tract infection, site not specified (09/28/18) Physical Therapy Treatment Note M2 PT-IP Current Condition Start: 09/28/18 10:33 Freq: NEEDED Status: Discharge Protocol: Document 09/28/18 09:29 AB (Rec: 09/28/18 10:48 AB [id number]) Physical Therapy Current Condition Current Condition Evaluation Date 09/28/18 Treatment Diagnosis UTI; chronic kidney dse; generalized weakness Onset Date 09/28/18 Precautions Other Precautions falls M3 PT-IP Subjective Start: 09/28/18 10:33 Freq: NEEDED Status: Discharge Protocol: Document 10/01/18 09:00 RS (Rec: 10/01/18 15:06 RS [id number]) Subjective Physical Therapy Visit Type Type Treatment Note Physical Therapy Visit Comments Patient Comments Pt willing to work with PT. M4 PT-IP Mobility and Gait Start: 09/28/18 10:33 Freq: NEEDED Status: Discharge Protocol: Document 10/01/18 09:00 RS (Rec: 10/01/18 15:06 RS [id number]) PT-Bed Mobility Assessment Supine to Sit Supine to Sit Standby Assistance PT-Transfer Assessment Sit to and From Stand Sit to and from Stand Contact Guard Assistance Use of Upper Extremities Equipment Transfer Assistive Device Gait Belt Front Wheeled Walker Transfers Transfer Destination Bed Chair Wheelchair Transfer Ability Level of Assist Contact Guard Assistance Use of Upper Extremities Comments Mobility Comments Pt still requiring CGA, quite tired after moving around the room. Gait Assessment Gait Gait Assistance Required: Contact Guard Assist Distance (Feet) 38 Able to Maintain Weight Bearing Status Yes During Gait Assistive Devices Assistive Device Gait Belt Front Wheeled Walker Comments Gait Comments 15+15+8ft M5 PT-IP Objective Assessments Start: 09/28/18 10:33 Freq: NEEDED Status: Discharge Protocol: Document 09/28/18 09:29 AB (Rec: 09/28/18 10:48 AB [id number]) Orientation Orientation/Cognition Level of Alertness Alert Orientation Name Place Situation Language Function Ability No Deficits Noted Safety Awareness Decreased Safety Awareness Memory Description Short Term Impaired Gross Range of Motion Lower Extremity ROM Assessment Within Functional Limits Strength Lower Extremity Strength Assessment Bilaterally Impaired Comments Strength Comments RLE 4-/5 LLE 3+/5 Sensation Assessment Sensation Gross Sensation Right LE Impaired Left LE Impaired Light Touch Impaired Proprioception (Position) Impaired Sensation Description Numbness Comments Sensation Comments per pt: LLE below knee 50% sensation L foot: 10% R foot: 20% RLE 40% Fingers 100% Muscle Tone Muscle Tone WNL Yes M6 PT-IP Treatment Start: 09/28/18 10:33 Freq: NEEDED Status: Discharge Protocol: Document 09/30/18 11:05 AR (Rec: 09/30/18 11:37 AR [email or web address]) Physical Therapy Treatment Exercises Exercises Ankle Pumps Seated Knee Flexion/Extension Education Education Provided Safety Other Treatments Other Treatment Performed seated hip abd&add (w manual resistance), seated marches ( hip flex). 10 reps each exercise. Pt reported pain in R knee and L ankle during exercise. M7 PT-IP Assessment and Plan Start: 09/28/18 10:33 Freq: NEEDED Status: Discharge Protocol: Document 10/01/18 09:00 RS (Rec: 10/01/18 15:06 RS [id number]) PT Summary Assessment and Plan Summary Assessment Summary Pt still quite fatigued after only short distances, not yet able to walk household distances. Pt still far below reported functional baseline and does still have potential for further functional improvement. Continue to recommend pt transition to SNF rehab once medically ready. Frequency of Treatment Frequency Of Treatment Discharge Recommendations To Nursing Amount of Assist Needed 1 Person Assist Discharge Recommendations PT Discharge Recommendations SNF Rehab
--- NOTE | 2018-10-01 09:01 | P.DS_ITS ---
History of Present Illness Chief complaint: Multiple GLF today Discharge Providers Date of admission: 09/28/18 01:41 Discharge Date: 10/01/18 Primary care physician: Jim Quintana MD Consults: 09/28/18 02:42 Consult to Discharge Planning Routine Comment: Consult to Physical Therapy Evaluate & Treat Comment: Physician Instructions: Evaluate and Treat 09/28/18 03:52 Consult to Dietitian, Adult Routine Comment: Reason For Exam: love scale <15 09/28/18 21:16 Consult to Wound Care Routine Comment: Consulting Provider: [facility] 09/29/18 08:50 Consult to Sales Representative [employer] Routine Comment: 09/29/18 10:05 Consult to Occupational Therapy Evaluate & Treat Comment: Physician Instructions: Evaluate and treat Discharge provider: Shawna Santoyo MD Summary Discharge Diagnosis: UTI improved on ceftriaxone Deconditioning Acute on chronic kidney failure, improved Peripheral neuropathy unchanged Depression stable Diabetes stable Chronic venous stasis changes with nonhealing wounds stable Hospital Course: Patient was hospitalized for UTI, dehydration and decondi tioning with multiple chronic underlying medical problems. He was treated with IV ceftriaxone, physical therapy and was placed on his outpatient medications. His blood sugars remained stable. He continue on same diuretic and was in improved condition but in need of continued physical therapy and was discharged to a jail facility. He will need wound care to follow and will need changing his dressing today which will be arranged as an outpatient. He will follow up with his primary care provider Dr. Quintana next week. He will continue his outpatient medications. He is given a short prescription for oxycodone for his neck and back pain. he is given Keflex 500 mg p.o. t.i.d. for 5 days to treat the remainder of his urinary tract infection. He received 3 days of IV ceftriaxone. Status at Discharge Functional status at discharge: uses cane/walker Overall status at discharge: patient is progressing back to baseline Time Spent with Patient Greater than 30 minutes Exam Vital Signs (past 8 hours): - 10/01/18 06:00 Temperature 97.5 F L Pulse Rate 73 Respiratory Rate 18 Blood Pressure 151/72 H Pulse Oximetry 96 Fraction of Inspired Oxygen 21 Oxygen Delivery Method Room Air Oxygen Flow Rate 0 Narrative Exam Narrative: Patient alert and oriented in no apparent distress Neck is supple without adenopathy tenderness paravertebral muscles Chest: Clear to auscultation without wheezes rhonchi or crackles Cor: Regular rate and rhythm without murmur Abdomen: Positive bowel sounds, soft, nontender, nondistended, obese Extremities: Bandages bilateral lower extremities. Moves all extremities well. No significant swelling. Good capillary refill time. Objective Labs Result Diagrams: 09/30/18 05:24 09/30/18 05:24 Discharge Plan Discharge Plan Patient Disposition: SNF Transfer to: [facility] I certify the postop hospital jail care is medically necessary on a continuing basis for any conditions for which he/ she received care during this hospitalization.: Yes The receiving facility has agreed to accept transfer and provide medical treatment.: Yes Discharge Med Rec/Prescriptions Prescriptions: New oxycodone 5 mg Tablet 5 mg PO Q4HR PRN (Reason: Pain, Moderate (4-6)) Qty: 20 RF: 0 Continued doxazosin 4 mg Tablet 4 mg PO BEDTIME RF: 0 acetaminophen 325 mg Tablet 650 mg PO Q4HR PRN (Reason: As Needed For Fever/Mild Pain) Qty: 100 RF: 0 lorazepam 0.5 mg Tablet 0.5 mg PO BID-TID PRN (Reason: Anxiety) Qty: 30 RF: 1 furosemide 40 mg Tablet 40 mg PO DAILY RF: 0 duloxetine 60 mg capsule,delayed release(DR/EC) 60 mg PO DAILY RF: 0 lidocaine [Lidoderm] 5 % Adhesive Patch,Medicated 1 patch TOPICAL DAILY RF: 0 polyethylene glycol 3350 17 gram/dose Powder 17 g PO DAILY PRN (Reason: Constipation) RF: 0 citalopram 20 MG tablet 20 mg PO DAILY RF: 0 glimepiride 1 mg tablet 1 mg PO DAILY RF: 0 Follow up/Referrals: Jim Quintana MD [Primary Care Provider] - Discharge Health Status Brief summary of current health status: admitted for weakness and uti, improved Discharge Data Primary Care Provider: Jim Quintana Attending Provider: Jim Quintana Admit Date/Time: 09/28/18 01:41 Quality VTE Deep Vein Thrombosis/Pulmonary Embolism Present on Admission: No
[2018-10-01] MEDS: LIDOCAINE PATCH 1 EACH ADH..PATCH TOP (09:34)
[2018-10-01] MEDS: DULOXETINE 30 MG CAPSULE 60 MG PO (09:34)
[2018-10-01] MEDS: ENOXAPARIN 40 MG/0.4 ML SYRINGE SUBCUT (09:34)
[2018-10-01] MEDS: GLIMEPIRIDE 2 MG TABLET 1 MG PO (09:34)
[2018-10-01] MEDS: FUROSEMIDE 40 MG TABLET PO (09:34)
[2018-10-01] MEDS: INSULIN ASPART 100 UNIT/ML INSULN PEN SUBCUT ×2 (09:35→12:20)
[2018-10-01 09:45] VITALS: O2SAT 95
--- NOTE | 2018-10-01 10:45 | CM.DPC ---
DCP/continued: Reviewed chart. Received notification that patient okay to discharge to SNF today. Current d/c plan is for patient to go to [facility]. Placed call to [facility], spoke with Alda. She confirms admit to [facility] today. Orders, and [facility] faxed. August reports that patient scheduled to be picked up at approximately 1:15pm today. RN updated. Met with patient to confirm plan and he is aware and agreeable. No additional needs identified. P: FCC today. NOELLE Funes
--- NOTE | 2018-10-01 13:32 | PC.NURSE ---
Transfer: IV dc'd intact. All personal belongings sent at discharge including cellphone, chargers, tablet, clothing, etc. Taken out via wheelchair by transport staff. Transfer packet, including script for Oxycodone, sent at discharge. Report called to Arcelia at [facility].
== END 2018-10-01 13:35 | DRG 690 ==
LOC: ED 09-28 01:14 → AC 09-28 06:41
PROVIDERS: Family Medicine; Admitting Provider Family Medicine; Emergency Provider Emergency Medicine; Family Provider Family Medicine; PCP Family Medicine; Visit Provider Family Medicine
DX: N39.0 Urinary tract infection, site not specified (principal); L97.921 Non-pressure chronic ulcer of unspecified part of left lower leg limited to breakdown of skin; L97.911 Non-pressure chronic ulcer of unspecified part of right lower leg limited to breakdown of skin; N17.9 Acute kidney failure, unspecified; B96.4 Proteus (mirabilis) (morganii) as the cause of diseases classified elsewhere; E11.22 Type 2 diabetes mellitus with diabetic chronic kidney disease; E11.622 Type 2 diabetes mellitus with other skin ulcer; E11.42 Type 2 diabetes mellitus with diabetic polyneuropathy; E86.0 Dehydration; G62.89 Other specified polyneuropathies; R09.02 Hypoxemia; N18.3 Chronic kidney disease, stage 3 (moderate); I12.9 Hypertensive chronic kidney disease with stage 1 through stage 4 chronic kidney disease, or unspecified chronic kidney disease; F32.9 Major depressive disorder, single episode, unspecified; G89.29 Other chronic pain; D63.1 Anemia in chronic kidney disease; W18.30XA Fall on same level, unspecified, initial encounter; G47.30 Sleep apnea, unspecified; Z98.1 Arthrodesis status; M19.012 Primary osteoarthritis, left shoulder; M19.011 Primary osteoarthritis, right shoulder; M19.019 Primary osteoarthritis, unspecified shoulder; M19.112 Post-traumatic osteoarthritis, left shoulder; S46.002S Unspecified injury of muscle(s) and tendon(s) of the rotator cuff of left shoulder, sequela; E66.01 Morbid (severe) obesity due to excess calories; S13.9XXA Sprain of joints and ligaments of unspecified parts of neck, initial encounter; R35.0 Frequency of micturition; F10.20 Alcohol dependence, uncomplicated; Z90.49 Acquired absence of other specified parts of digestive tract; E21.3 Hyperparathyroidism, unspecified; M79.605 Pain in left leg; M71.20 Synovial cyst of popliteal space [Baker], unspecified knee; M10.9 Gout, unspecified; Z68.39 Body mass index [BMI] 39.0-39.9, adult
CPT/HCPCS: 12002; 36415; 36591; 51701; 70450; 71045; 80048; 80053; 81001; 82962; 83880; 84484; 85025; 87086; 87186; 93005; 94640; 94660; 94760; 94762; 96361; 96374; 96375; 97110; 97116; 97161; 97530; 99214; 99284; 99285; J1650

== ENCOUNTER → 2018-10-12 08:42 | Outpatient (CLI) | payer MEDICARE, SELFPAY ==
[2018-09-28 01:44] VITALS: BMI 37.3
== END ==
PROVIDERS: Family Provider Family Medicine; PCP Family Medicine; Visit Provider Family Medicine
DX: I87.2 Venous insufficiency (chronic) (peripheral) (principal); L97.821 Non-pressure chronic ulcer of other part of left lower leg limited to breakdown of skin; R60.0 Localized edema
CPT/HCPCS: 11042; 11045; 29581

== ENCOUNTER → 2018-10-18 15:21 | Outpatient (CLI) | payer MEDICARE, SELFPAY ==
[2018-09-28 01:44] VITALS: BMI 37.3
== END ==
PROVIDERS: Family Provider Family Medicine; PCP Family Medicine; Visit Provider Family Medicine
DX: I87.2 Venous insufficiency (chronic) (peripheral) (principal); L97.821 Non-pressure chronic ulcer of other part of left lower leg limited to breakdown of skin; L08.9 Local infection of the skin and subcutaneous tissue, unspecified; M79.662 Pain in left lower leg; R60.0 Localized edema; E11.9 Type 2 diabetes mellitus without complications
CPT/HCPCS: 11042; 11045; 99214

== ENCOUNTER → 2018-10-30 15:08 | Outpatient (CLI) | payer MEDICARE, SELFPAY ==
[2018-09-28 01:44] VITALS: BMI 37.3
== END ==
PROVIDERS: Family Provider Family Medicine; PCP Family Medicine; Visit Provider Family Medicine
DX: I87.313 Chronic venous hypertension (idiopathic) with ulcer of bilateral lower extremity (principal); L97.822 Non-pressure chronic ulcer of other part of left lower leg with fat layer exposed; L97.812 Non-pressure chronic ulcer of other part of right lower leg with fat layer exposed; I73.9 Peripheral vascular disease, unspecified; L08.9 Local infection of the skin and subcutaneous tissue, unspecified
CPT/HCPCS: 11042; 11045; 99214

== ENCOUNTER → 2018-11-06 09:41 | Outpatient (CLI) | payer MEDICARE, SELFPAY ==
[2018-09-28 01:44] VITALS: BMI 37.3
--- NOTE | 2018-11-13 14:27 | PC.NURSE ---
Wound Consult Note Cristóbal is not new to me, as I see him at the wound care center. He is sitting up in bed eating. His nurse, Mariluz cut off his wraps before my arrival. I removed the alginate from his three wounds on his left leg and cleaned them with Normal Saline. The wounds measure: Proximal 3.0x2.5x 0.3 Medial 2.0x 1.8x 0.3 and distal 1.5x1.2x0.3. The wound all have slough and some red granulation tissue. I placed alginate into the wound beds and then a border foam. I placed lotion on both legs and I did not apply any compression. Edema Measurements: Left foot=27 Left ankle=27.5 Left calf=37.5 Right foot=26.5 Right ankle= 24.4 Right calf=35 Mr. Tubbs will be discharged to Rehab and will return to the [facility] for wound care.
== END ==
PROVIDERS: Family Provider Family Medicine; PCP Family Medicine; Visit Provider Family Medicine
DX: I87.2 Venous insufficiency (chronic) (peripheral) (principal); L97.822 Non-pressure chronic ulcer of other part of left lower leg with fat layer exposed; L97.812 Non-pressure chronic ulcer of other part of right lower leg with fat layer exposed; I73.9 Peripheral vascular disease, unspecified; L08.9 Local infection of the skin and subcutaneous tissue, unspecified; E11.622 Type 2 diabetes mellitus with other skin ulcer; E11.40 Type 2 diabetes mellitus with diabetic neuropathy, unspecified; R60.0 Localized edema
CPT/HCPCS: 11042; 11045; 29581; 87070; 87075; 87077; 87186; 87205

== ENCOUNTER 2018-11-10 15:56 | Inpatient (IN) | payer MEDICARE, SELFPAY ==
[2018-09-28 01:44] VITALS: BMI 37.3
[2018-11-10 15:59] VITALS: BP 154/75; PULSE 88; RESP 19; TEMP 36.8; O2SAT 98
--- NOTE | 2018-11-10 15:59 | ED_ITS ---
HPI - Extremity Problem <Miroslava Rodriguez DO - Last Filed: 11/11/18 07:06> General Chief complaint: Extremity Problem,Nontraumatic Stated complaint: Left leg pain, knee to foot Time Seen by Provider: 11/10/18 15:58 Source: patient and EMS Mode of arrival: EMS Limitations: no limitations History of Present Illness HPI Narrative: * Patient is a 68-year-old male with history of diabetes and chr onic left leg pain presenting with left leg spasms. Says it started around midnight last night. It has not stopped. The pain is getting quite severe. He denies any falls. No numbness or tingling. He has a history of cellulitis of his legs. Both legs are wrapped. He is afebrile. You can obviously see left leg spasm. He did take a shot of vodka for his pain MD Complaint: extremity pain Related Data Home Medications Medication Instructions Recorded Confirmed citalopram 20 mg PO DAILY 12/25/17 09/28/18 glimepiride 1 mg PO DAILY 03/22/18 09/27/18 doxazosin 4 mg PO BEDTIME 06/07/18 09/27/18 furosemide 40 mg PO DAILY 09/27/18 09/27/18 duloxetine 60 mg PO DAILY 09/28/18 09/28/18 lidocaine [Lidoderm] 1 patch TOPICAL DAILY 09/28/18 09/28/18 polyethylene glycol 3350 17 g PO DAILY PRN 09/28/18 09/28/18 Previous Rx's Medication Instructions Recorded acetaminophen 650 mg PO Q4HR PRN #100 tab 06/12/18 lorazepam 0.5 mg PO BID-TID PRN #30 tab 06/12/18 oxycodone 5 mg PO Q4HR PRN #20 tab 10/01/18 cyclobenzaprine 5 mg PO TID PRN #10 tab 11/10/18 Allergies Allergy/AdvReac Type Severity Reaction Status Date / Time latex Allergy Mild IRRITATION Verified 11/10/18 15:59 Sulfa (Sulfonamide AdvReac Mild N&V 1HOUR Verified 11/10/18 15:59 Antibiotics) AFTER RX, THINKS IT IS RELATED Review of Systems <DO Cira Harris Last Filed: 11/11/18 07:06> Review of Systems Narrative: GENERAL: Denies chills,fever HEENT: Denies throat pain RESPIRATORY: Denies dyspnea, cough, wheezing CARDIOVASCULAR: Denies chest pain, palpitations GASTROINTESTINAL: Denies nausea, vomiting MUSCULOSKELETAL: See HPI SKIN: No rash, no laceration, no pruritus NEUROLOGIC: Denies weakness, dizziness, headache, numbness 8 point review of systems is negative except for those stated above and HPI PFSH <Miroslava Rodriguez DO - Last Filed: 11/11/18 07:06> Medical History (Updated 11/11/18 @ 06:38 by Yonny Reynoso DO) Alcoholism (Chronic) Anemia associated with chronic renal failure (Chronic) Chronic kidney disease, stage 4 (severe) (Chronic) Chronic pain (Chronic) Depression (Chronic) Diabetes type 2, controlled (Chronic) Duodenal ulcer (Acute) GI bleed (Resolved) Gout, arthropathy (Chronic) History of cervical fracture (Resolved) Hyperparathyroidism (Chronic) Hypertension (Chronic) Left leg pain (Chronic) Symptomatic anemia (Chronic) Surgical History (Updated 11/11/18 @ 01:09 by LUZ Alba) H/O cervical spine surgery (Acute) History of colectomy (Resolved) Social History household members: friend(s) and other Smoking Status: Former smoker alcohol intake: current Social History household members: friend(s) and other Smoking Status: Former smoker alcohol intake: current Exam <Miroslava Rodriguez DO - Last Filed: 11/11/18 07:06> Initial Vital Signs Initial Vital Signs: Vital Signs Temperature 98.3 F 11/10/18 15:59 Pulse Rate 88 11/10/18 15:59 Respiratory Rate 19 11/10/18 15:59 Blood Pressure 154/75 H 11/10/18 15:59 Pulse Oximetry 98 11/10/18 15:59 GENERAL: Alert chronically ill obese male in no acute distress no slurring of speech HEENT: Head atraumatic,EOMI, pupils reactive, face symmetric, moist mucous membranes CARDIOVASCULAR: Regular rate and rhythm without murmurs, rubs or gallops. RESPIRATORY: Breath sounds equal bilaterally, no wheezes rales or rhonchi. ABDOMEN: Soft, nontender. Normoactive bowel sounds all 4 quadrants. No guarding or rebound. EXTREMITIES: Normal range of motion, no clubbing or edema. Neurovascularly intact NEUROLOGICAL: Alert and oriented x4.Normal gait and speech. Cranial nerves II through XII grossly intact. SKIN: Significant erythema drainage some of it looks chronic that there is a significant amount of drainage <Yonny Reynoso DO - Last Filed: 11/11/18 06:39> Initial Vital Signs Initial Vital Signs: Vital Signs Temperature 98.3 F 11/10/18 15:59 Pulse Rate 88 11/10/18 15:59 Respiratory Rate 19 11/10/18 15:59 Blood Pressure 154/75 H 11/10/18 15:59 Pulse Oximetry 98 11/10/18 15:59 Course <Miroslava Rodriguez, DO - Last Filed: 11/11/18 07:06> Orders Ordered: Al Hydrox/Mg Hydrox/Simethicone (Maalox Plus) 30 ml PO Q6HR PRN PRN Reason: Dyspepsia Bisacodyl (Dulcolax) 10 mg [place] DAILY PRN PRN Reason: Constipation Calcium Carbonate (Tums) 1,000 mg PO Q4HR PRN PRN Reason: Dyspepsia Cyclobenzaprine HCl (Flexeril) 10 mg PO TID PRN PRN Reason: Spasms Last Admin: 11/11/18 04:43 Dose: 10 mg Documented by: GEORGETTE Docusate Sodium (Colace) 100 mg PO BID DAVID Duloxetine HCl (Cymbalta) 60 mg PO DAILY DAVID Furosemide (Lasix) 40 mg PO DAILY DAVID Heparin Sodium (Porcine) (Heparin) 5,000 unit SUBCUT BID DAVID Vancomycin HCl (Vancomycin) 2,000 mg in 400 mls @ 200 mls/hr IV BEDTIME DAVID Oxycodone/Acetaminophen (Percocet 5/325) 1 tab PO Q4HR DAVID Last Admin: 11/11/18 04:42 Dose: 1 tab Documented by: Admin: 11/11/18 01:03 Dose: 1 tab Documented by: PAUL Polyethylene Glycol (Miralax) 17 gm PO DAILY PRN PRN Reason: Constipation Sennosides (Senna) 17.2 mg PO BEDTIME PRN PRN Reason: Constipation Vancomycin HCl (Vancomycin Per Pharmacy) 1 request MISC NOW ONE Stop: 11/10/18 22:12 Discontinued Medications Diazepam (Valium) 5 mg PO NOW ONE Stop: 11/10/18 16:18 Last Admin: 11/10/18 16:27 Dose: 5 mg Documented by: HENRIQUE Vancomycin HCl/Dextrose (Vancomycin) 1,500 mg in 300 mls @ 200 mls/hr IV NOW ONE Stop: 11/10/18 21:57 Last Infusion: 11/10/18 22:30 Dose: 0 mls/hr Documented by: Infusion: 11/10/18 21:34 Dose: 200 mls/hr Documented by: Admin: 11/10/18 20:50 Dose: 200 mls/hr Documented by: BUSTER Vancomycin HCl 500 mg/ Sodium (Chloride) 250 mls @ 250 mls/hr IV NOW ONE Stop: 11/10/18 23:29 Last Infusion: 11/11/18 06:14 Dose: 0 mls/hr Documented by: Admin: 11/11/18 04:41 Dose: 250 mls/hr Documented by: GEORGETTE Magnesium Sulfate (Magnesium Sulfate) 2 gm in 50 mls @ 25 mls/hr IV NOW ONE Stop: 11/11/18 02:42 Last Admin: 11/11/18 02:32 Dose: 25 mls/hr Documented by: GEORGETTE Cosigned by: PAUL Vital Signs Vital signs: Vital Signs - 8 hr 11/10/18 15:59 11/10/18 17:00 Temperature 98.3 F Pulse Rate 88 91 H Respiratory Rate 19 13 Blood Pressure 154/75 H Blood Pressure [Left Arm] 151/80 H Pulse Oximetry 98 98 <Yonny Reynoso DO - Last Filed: 11/11/18 06:39> Course Course Narrative: Patient received in sign-out from Dr. Rodriguez. Patient with pain, redness and drainage from his leg has a small elevation in his white blood cells. He is unable to ambulate and will require hospitalization for antibiotics, PT evaluation and possible social work Orders Ordered: Al Hydrox/Mg Hydrox/Simethicone (Maalox Plus) 30 ml PO Q6HR PRN PRN Reason: Dyspepsia Bisacodyl (Dulcolax) 10 mg [place] DAILY PRN PRN Reason: Constipation Calcium Carbonate (Tums) 1,000 mg PO Q4HR PRN PRN Reason: Dyspepsia Cyclobenzaprine HCl (Flexeril) 10 mg PO TID PRN PRN Reason: Spasms Last Admin: 11/11/18 04:43 Dose: 10 mg Documented by: GEORGETTE Docusate Sodium (Colace) 100 mg PO BID DAVID Duloxetine HCl (Cymbalta) 60 mg PO DAILY DAVID Furosemide (Lasix) 40 mg PO DAILY [facility] Heparin Sodium (Porcine) (Heparin) 5,000 unit SUBCUT BID DAVID Vancomycin HCl (Vancomycin) 2,000 mg in 400 mls @ 200 mls/hr IV BEDTIME DAVID Oxycodone/Acetaminophen (Percocet 5/325) 1 tab PO Q4HR DAVID Last Admin: 11/11/18 04:42 Dose: 1 tab Documented by: Admin: 11/11/18 01:03 Dose: 1 tab Documented by: PAUL Polyethylene Glycol (Miralax) 17 gm PO DAILY PRN PRN Reason: Constipation Sennosides (Senna) 17.2 mg PO BEDTIME PRN PRN Reason: Constipation Vancomycin HCl (Vancomycin Per Pharmacy) 1 request MISC NOW ONE Stop: 11/10/18 22:12 Discontinued Medications Diazepam (Valium) 5 mg PO NOW ONE Stop: 11/10/18 16:18 Last Admin: 11/10/18 16:27 Dose: 5 mg Documented by: HENRIQUE Vancomycin HCl/Dextrose (Vancomycin) 1,500 mg in 300 mls @ 200 mls/hr IV NOW ONE Stop: 11/10/18 21:57 Last Infusion: 11/10/18 22:30 Dose: 0 mls/hr Documented by: Infusion: 11/10/18 21:34 Dose: 200 mls/hr Documented by: Admin: 11/10/18 20:50 Dose: 200 mls/hr Documented by: BUSTER Vancomycin HCl 500 mg/ Sodium (Chloride) 250 mls @ 250 mls/hr IV NOW ONE Stop: 11/10/18 23:29 Last Infusion: 11/11/18 06:14 Dose: 0 mls/hr Documented by: Admin: 11/11/18 04:41 Dose: 250 mls/hr Documented by: GEORGETTE Magnesium Sulfate (Magnesium Sulfate) 2 gm in 50 mls @ 25 mls/hr IV NOW ONE Stop: 09/08/19 02:42 Last Admin: 11/11/18 02:32 Dose: 25 mls/hr Documented by: GEORGETTE Cosigned by: PAUL Vital Signs Vital signs: Vital Signs - 8 hr 11/10/18 15:59 11/10/18 17:00 Temperature 98.3 F Pulse Rate 88 91 H Respiratory Rate 19 13 Blood Pressure 154/75 H Blood Pressure [Left Arm] 151/80 H Pulse Oximetry 98 98 MDM - Extremity (Nontraumatic) <Miroslava Rodriguez DO - Last Filed: 11/11/18 07:06> Lab Data Result diagrams: 11/11/18 05:53 11/11/18 05:53 Labs: Lab Results 11/10/18 11/10/18 11/10/18 Range/Units 19:00 19:00 19:00 WBC 15.3 H (4.5-11.0) X10^3/uL RBC 3.24 L (4.5-5.9) X10^6/uL Hgb 10.1 L (13.5-17.5) g/dL Hct 30.6 L (41-53) % MCV 94.7 (80-100) fL MCH 31.4 (26-34) PG MCHC 33.1 (30-36) % RDW 15.0 H (11.6-14.8) % Plt Count 287 (150-400) X10^3/uL Neut % (Auto) 81.4 H (50-75) % Lymph % (Auto) 8.6 L (25-40) % Rusk % (Auto) 6.7 (3-14) % Eos % (Auto) 3.0 (2-4) % Baso % (Auto) 0.3 (0-2) % Neut # (Auto) 84883 H (7134-5776) /uL Lymph # (Auto) 1300 (9966-6241) /uL Rusk # (Auto) 1000 H (0-900) /uL Eos # (Auto) 500 H (0-450) /uL Baso # (Auto) 0 (0-100) /uL Sodium 138 (137-145) mmol/L Potassium 4.3 (3.4-5.1) mmol/L Chloride 100 (98-107) mmol/L Carbon Dioxide 28 (22-32) mmol/L BUN 45 H (9-20) mg/dL Creatinine 2.00 H (0.66-1.25) mg/dL Estimated GFR 33.5 L (>60) mL/min BUN/Creatinine Ratio 22.5 H (6-22) Glucose 122 H (80-110) mg/dL Lactate (0.7-2.1) mmol/L Calcium 8.9 (8.4-10.2) mg/dL Magnesium (1.6-2.3) mg/dL Procalcitonin 0.12 (<0.5) ng/mL 11/10/18 11/10/18 Range/Units 19:00 19:00 WBC (4.5-11.0) X10^3/uL RBC (4.5-5.9) X10^6/uL Hgb (13.5-17.5) g/dL Hct (41-53) % MCV (80-100) fL MCH (26-34) PG MCHC (30-36) % RDW (11.6-14.8) % Plt Count (150-400) X10^3/uL Neut % (Auto) (50-75) % Lymph % (Auto) (25-40) % Rusk % (Auto) (3-14) % Eos % (Auto) (2-4) % Baso % (Auto) (0-2) % Neut # (Auto) (4694-1547) /uL Lymph # (Auto) (3331-4227) /uL Rusk # (Auto) (0-900) /uL Eos # (Auto) (0-450) /uL Baso # (Auto) (0-100) /uL Sodium (137-145) mmol/L Potassium (3.4-5.1) mmol/L Chloride (98-107) mmol/L Carbon Dioxide (22-32) mmol/L BUN (9-20) mg/dL Creatinine (0.66-1.25) mg/dL Estimated GFR (>60) mL/min BUN/Creatinine Ratio (6-22) Glucose (80-110) mg/dL Lactate 0.9 (0.7-2.1) mmol/L Calcium (8.4-10.2) mg/dL Magnesium 1.7 (1.6-2.3) mg/dL Procalcitonin (<0.5) ng/mL [facility] Narrative Medical decision making narrative: Patient given Valium sleeping easily arousable states twitching has improved. Attempted to discharge patient. He is unable to bear weight on that left leg. He typically gets around by wheelchair and walker at home. However he cannot stand up with a walker in the emergency department. He has no one to take him home he cannot get into a cab. He feels like his legs just crumbled every time he tries to put weight on it. Denies any fall. Possible increased weakness 210 infection. He has home health and he does have wound care. At this time will check CBC lactate blood cultures and other tests. I spoken to the hospitalist Salazar ESCOBAR, recommends waiting for labs and he will assess the patient. Patient signed out to Dr. Reynoso <Yonny Reynoso, - Last Filed: 11/11/18 06:39> Lab Data Labs: Lab Results 11/10/18 11/10/18 11/10/18 Range/Units 19:00 19:00 19:00 WBC 15.3 H (4.5-11.0) X10^3/uL RBC 3.24 L (4.5-5.9) X10^6/uL Hgb 10.1 L (13.5-17.5) g/dL Hct 30.6 L (41-53) % MCV 94.7 (80-100) fL MCH 31.4 (26-34) PG MCHC 33.1 (30-36) % RDW 15.0 H (11.6-14.8) % Plt Count 287 (150-400) X10^3/uL Neut % (Auto) 81.4 H (50-75) % Lymph % (Auto) 8.6 L (25-40) % Rusk % (Auto) 6.7 (3-14) % Eos % (Auto) 3.0 (2-4) % Baso % (Auto) 0.3 (0-2) % Neut # (Auto) 11053 H (5573-8844) /uL Lymph # (Auto) 1300 (6048-2674) /uL Rusk # (Auto) 1000 H (0-900) /uL Eos # (Auto) 500 H (0-450) /uL Baso # (Auto) 0 (0-100) /uL Sodium 138 (137-145) mmol/L Potassium 4.3 (3.4-5.1) mmol/L Chloride 100 (98-107) mmol/L Carbon Dioxide 28 (22-32) mmol/L BUN 45 H (9-20) mg/dL Creatinine 2.00 H (0.66-1.25) mg/dL Estimated GFR 33.5 L (>60) mL/min BUN/Creatinine Ratio 22.5 H (6-22) Glucose 122 H (80-110) mg/dL Lactate (0.7-2.1) mmol/L Calcium 8.9 (8.4-10.2) mg/dL Magnesium (1.6-2.3) mg/dL Procalcitonin 0.12 (<0.5) ng/mL 11/10/18 11/10/18 Range/Units 19:00 19:00 WBC (4.5-11.0) X10^3/uL RBC (4.5-5.9) X10^6/uL Hgb (13.5-17.5) g/dL Hct (41-53) % MCV (80-100) fL MCH (26-34) PG MCHC (30-36) % RDW (11.6-14.8) % Plt Count (150-400) X10^3/uL Neut % (Auto) (50-75) % Lymph % (Auto) (25-40) % Rusk % (Auto) (3-14) % Eos % (Auto) (2-4) % Baso % (Auto) (0-2) % Neut # (Auto) (7581-1069) /uL Lymph # (Auto) (0947-1126) /uL Rusk # (Auto) (0-900) /uL Eos # (Auto) (0-450) /uL Baso # (Auto) (0-100) /uL Sodium (137-145) mmol/L Potassium (3.4-5.1) mmol/L Chloride (98-107) mmol/L Carbon Dioxide (22-32) mmol/L BUN (9-20) mg/dL Creatinine (0.66-1.25) mg/dL Estimated GFR (>60) mL/min BUN/Creatinine Ratio (6-22) Glucose (80-110) mg/dL Lactate 0.9 (0.7-2.1) mmol/L Calcium (8.4-10.2) mg/dL Magnesium 1.7 (1.6-2.3) mg/dL Procalcitonin (<0.5) ng/mL Discharge Plan Departure Patient Disposition: Admitted As Inpatient Clinical Impression: Cellulitis Leg muscle spasm Qualifiers: Laterality: left Qualified Code(s): M62.838 - Other muscle spasm Discharge Date/Time: 11/10/18 21:37 Admit Date/Time: 11/10/18 21:01 Admit Provider: Enrrique Jimenez
[2018-11-10] MEDS: diazePAM 5 MG TABLET PO (16:27)
[2018-11-10 17:00] VITALS: BP 151/80; PULSE 91; RESP 13; O2SAT 98
--- NOTE | 2018-11-10 18:02 | PC.NURSE ---
removed dressing from left lower extremity. Provider into see leg and wounds. Is being followed by wound care. Wounds are draining serous fluid. Replaced dressing with abd pad, wrapped with kerlix and coban.
[2018-11-10 19:13] LABS: Add Manual Diff / Slide Review NO; Basophils Absolute Auto 0 /uL (0-100); Basophils Percent Auto 0.3 % (0-2); Eosinophils Absolute Auto 500 /uL (0-450); Hematocrit 30.6 % (41-53); Hemoglobin 10.1 g/dL (13.5-17.5); Lymphocytes Absolute Auto 1300 /uL (1100-4500); Lymphocytes Percent Auto 8.6 % (25-40); Mean Corpuscular HGB Conc 33.1 % (30-36); Mean Corpuscular Hemoglobin 31.4 PG (26-34); Mean Corpuscular Volume 94.7 fL (80-100); Monocytes Absolute Auto 1000 /uL (0-900); Monocytes Percent Auto 6.7 % (3-14); Neutrophils Absolute Auto 12500 /uL (1500-7000); Neutrophils Percent Auto 81.4 % (50-75); Platelet Count 287 X10^3/uL (150-400); Red Blood Cell Count 3.24 X10^6/uL (4.5-5.9); White Blood Cell Count 15.3 X10^3/uL (4.5-11.0)
[2018-11-10 19:26] LABS: Lactate (Lactic Acid) 0.9 mmol/L (0.7-2.1)
[2018-11-10 19:28] LABS: BUN Creatinine Ratio 22.5 (6-22); Blood Urea Nitrogen 45 mg/dL (9-20); Calcium 8.9 mg/dL (8.4-10.2); Carbon Dioxide 28 mmol/L (22-32); Chloride 100 mmol/L (98-107); Estimated Glomerular Filt Rate 33.5 mL/min (>60); Glucose 122 mg/dL (80-110); HEMOLYSIS < 15 (0-50); Potassium 4.3 mmol/L (3.4-5.1); Sodium 138 mmol/L (137-145)
[2018-11-10 19:38] LABS: Magnesium 1.7 mg/dL (1.6-2.3)
[2018-11-10 19:45] LABS: Procalcitonin 0.12 ng/mL (<0.5)
[2018-11-10] MEDS: VANCOMYCIN 1,500 MG/300 ML FROZ.PIGGY 200 MG IV (20:50)
[2018-11-10 21:43] VITALS: BMI 40.1
[2018-11-10 22:30] VITALS: BP 158/85; PULSE 88; RESP 16; TEMP 37.3; O2SAT 96; O2SAT 98
[2018-11-10 23:05] LABS: Appearance Urine UA CLEAR; Bilirubin Urine UA NEGATIVE (NEGATIVE); Color Urine UA YELLOW; Glucose Urine UA NEGATIVE (Negative); Ketones Urine UA NEGATIVE (NEGATIVE); Leukocyte Esterase Urine UA 2+ (NEGATIVE); Nitrite Urine UA NEGATIVE (Negative); Occult Blood Urine UA TRACE-LYSED (Negative); Protein Urine UA 1+ (Negative); Urobilinogen Urine UA 0.2 E.U./dL (0.2)
[2018-11-10 23:16] LABS: RBC Urine 0-1/HPF (0-5/HPF); Squamous Epithelial Cell Urine 0-1 /HPF (0-5/HPF); WBC Urine 5-10/HPF (0-5/HPF)
[2018-11-10 23:17] LABS: Bacteria Urine Few (2-10); Culture Indicated Urine Specimen Cultured
[2018-11-10 23:40] VITALS: BP 105/45; PULSE 91; RESP 20; TEMP 37.6; O2SAT 93
[2018-11-11] VITALS (13 sets, daily range): BP systolic 109–150; BP diastolic 64–94; PULSE 77–82; RESP 16–20; TEMP 36.4–37.1; O2SAT 94–98
--- NOTE | 2018-11-11 00:47 | P.HP_ITS ---
History of Present Illness History of Present Illness Date Patient Seen: 11/10/18 Time Patient Seen: 21:00 Chief complaint: Left leg pain, knee to foot Narrative: Mr. Cristóbal Tubbs is a 68-year-old male patient with a history significant for hypertension, diabetes type 2 non-insulin dependent, chronic kidney disease stage 4, anemia of chronic disease and neuropathy who presents to the ER for complaints of left leg pain. Left leg pain has been chronic with h istory of cellulitis both legs. The patient is followed at the [facility]. He states about midnight last night he began having more pain with strong muscle spasms and states he is unable to bear weight on that leg due to the pain and spasms. At baseline he uses a walker or wheelchair. He states he has had no recent trauma and denies complaints of fevers or chills. Does report occasional headache but has no nasal congestion or sore throat. He denies shortness of breath cough or wheezing and has no chest pain or palpitations. Denies abdominal pain nausea vomiting though does report chronic constipation. The patient reports that he had previously been taking cyclobenzaprine but is out. Upon arrival in the ER the patient is afebrile with temperature of 98.3? with heart rate of 73, blood pressure 151/72, respirations 18 saturating 96% on room air. On laboratory analysis the patient is found have an elevated white count at 15.3 with hemoglobin of 10.1 and hematocrit 30.6 and platelets of 287. His echo electrolytes are within normal range however he does have an elevated BUN at 45 and creatinine of 2.0 with a baseline approximately 1.8-2.0 but recently down as low as 1.6. His EGFR is 33.5 and a creatinine clearance related at 64.38. He does have positive urinalysis with 2+ leukocyte esterase, WBCs and bacteria with reflex to culture. His lactic acid is 0.9 and is procalcitonin 0.12. He has a magnesium of 1.7. The patient is admitted to the hospital for cellulitis failing outpatient treatment. Patient History Medical History Alcoholism (Chronic) Anemia associated with chronic renal failure (Chronic) Chronic kidney disease, stage 4 (severe) (Chronic) Chronic pain (Chronic) Depression (Chronic) Diabetes type 2, controlled (Chronic) Duodenal ulcer (Acute) GI bleed (Resolved) Gout, arthropathy (Chronic) History of cervical fracture (Resolved) Hyperparathyroidism (Chronic) Hypertension (Chronic) Left leg pain (Chronic) Symptomatic anemia (Chronic) Surgical History (Updated 11/11/18 @ 01:09 by LUZ Alba) H/O cervical spine surgery (Acute) History of colectomy (Resolved) Social History household members: friend(s) and other Smoking Status: Former smoker alcohol intake: current Family & Social History Social History: household members friend(s),other Prior Living Arrangements House Safety & Behavioral: Feels Safe in Current Yes Environment Been Physically Hurt or No Threatened By a Person Suicidal Ideation Description None Suicide Plan Description No Plan Tobacco & Substance use: Smoking Status Former smoker alcohol intake current alcohol intake frequency 3 or more drinks per day Substance Use Type does not use Comment: Patient is single and lives alone in a ground level apartment. He states his father is alive and recovering from a brain tumor and his mother from complications of diabetes. He has 1 brother 1 sister who are both adopted. Smoking: The patient states he quit smoking 30 years ago before which she would smoke 1 pack per day Alcohol: Previously heavy drinker for 40 years now consumes 2 drinks per day. Substance use: Patient has tried CBD Advanced directives: In direct discussion with the patient he states his wish to be FULL CODE. He designates his sister Rosa Tubbs to be his surrogate decision maker. Meds Home Medications and Allergies Home Medications Medication Instructions Recorded Confirmed Type citalopram 20 mg PO DAILY 12/25/17 09/28/18 History glimepiride 1 mg PO DAILY 03/22/18 09/27/18 History doxazosin 4 mg PO BEDTIME 06/07/18 09/27/18 History acetaminophen 650 mg PO Q4HR PRN #100 tab 06/12/18 09/28/18 Rx lorazepam 0.5 mg PO BID-TID PRN #30 tab 06/12/18 09/28/18 Rx furosemide 40 mg PO DAILY 09/27/18 09/27/18 History duloxetine 60 mg PO DAILY 09/28/18 09/28/18 History lidocaine [Lidoderm] 1 patch TOPICAL DAILY 09/28/18 09/28/18 History polyethylene glycol 3350 17 g PO DAILY PRN 09/28/18 09/28/18 History oxycodone 5 mg PO Q4HR PRN #20 tab 10/01/18 Rx cyclobenzaprine 5 mg PO TID PRN #10 tab 11/10/18 Rx Allergies Allergy/AdvReac Type Severity Reaction Status Date / Time latex Allergy Mild IRRITATION Verified 11/10/18 15:59 Sulfa (Sulfonamide AdvReac Mild N&V 1HOUR Verified 11/10/18 15:59 Antibiotics) AFTER RX, THINKS IT IS RELATED Review of Systems Review of Systems ROS Unobtainable: All systems reviewed & are unremarkable except as noted in HPI and below Exam Vital Signs (past 8 hours): - 11/10/18 17:00 11/10/18 22:30 11/10/18 23:40 Temperature 99.1 F 99.7 F H Pulse Rate 91 H 88 91 H Respiratory Rate 13 16 20 Blood Pressure 158/85 H 105/45 L Blood Pressure [Left Arm] 151/80 H Pulse Oximetry 98 96 93 Oxygen Delivery Method Room Air Oxygen Flow Rate 0 Narrative Exam Narrative: GENERAL APPEARANCE: well developed, obese male with a BMI of 40.2 who is uncomfortable appearing HEENT: Normocephalic, PERRLA, conjunctiva clear, EOMs intact without nystagmus, no sinus tenderness to percussion, no rhinorrhea, mucous membranes are moist and pink without lesions or exudate. NECK/THYROID: Neck tender to palpation midline with accentuated cervical lordosis, no JVD, no carotid bruit, no thyromegaly, trachea midline. LYMPH NODES: no cervical or supraclavicular lymphadenopathy. SKIN: warm and dry, no suspicious lesions, no rashes, good turgor. HEART: regular rate and rhythm, S1-S2 without murmur, no rubs or gallops, brisk capillary refill, no edema LUNGS: clear to auscultation bilaterally, no coarseness crackles or wheezing, no cough present CHEST: Symmetrical movement, no accessory muscle use, no pain to AP and lateral compression. ABDOMEN: Abdomen is round, dull to percussion, well-healed midline abdominal scar,, no guarding or peritoneal signs, no organomegaly, no flank or suprapubic tenderness, active bowel tones. BACK: Nontender to palpation, no back pain with straight leg raise EXTREMITIES: moves all extremities, BUE strength is 5/5 and BLE strength is 4/5 with palpable muscle spasms the left calf, worsened with dorsiflexion of the foot, negative Hohmann sign NEUROLOGIC: AAO x4, cranial nerves II-XII grossly intact, neuropathy bilateral lower extremities. PSYCH: alert, cognitive function intact, good eye contact, appropriate with stable behavior Objective Labs Result Diagrams: 11/10/18 19:00 11/10/18 19:00 Labs: Laboratory Results - last 24 hr 11/10/18 11/10/18 11/10/18 19: 19:00 19:00 WBC 15.3 H RBC 3.24 L Hgb 10.1 L Hct 30.6 L MCV 94.7 MCH 31.4 MCHC 33.1 RDW 15.0 H Plt Count 287 Neut % (Auto) 81.4 H Lymph % (Auto) 8.6 L [place] % (Auto) 6.7 Eos % (Auto) 3.0 Baso % (Auto) 0.3 Neut # (Auto) 78395 H Lymph # (Auto) 1300 [place] # (Auto) 1000 H Eos # (Auto) 500 H Baso # (Auto) 0 Sodium 138 Potassium 4.3 Chloride 100 Carbon Dioxide 28 BUN 45 H Creatinine 2.00 H Estimated GFR 33.5 L BUN/Creatinine Ratio 22.5 H Glucose 122 H Lactate Calcium 8.9 Magnesium Procalcitonin 0.12 Urine Color Urine Appearance Urine pH Ur Specific [place] Urine Protein Urine Glucose (UA) Urine Ketones Urine Occult Blood Urine Nitrate Urine Bilirubin Urine Urobilinogen Ur Leukocyte Esterase Urine RBC Urine WBC Ur Squamous Epith Cells Urine Bacteria Ur Culture Indicated? 11/10/18 11/10/18 11/10/18 19:00 19:00 22:20 WBC RBC Hgb Hct MCV MCH MCHC RDW Plt Count Neut % (Auto) Lymph % (Auto) [place] % (Auto) Eos % (Auto) Baso % (Auto) Neut # (Auto) Lymph # (Auto) [place] # (Auto) Eos # (Auto) Baso # (Auto) Sodium Potassium Chloride Carbon Dioxide BUN Creatinine Estimated GFR BUN/Creatinine Ratio Glucose Lactate 0.9 Calcium Magnesium 1.7 Procalcitonin Urine Color Yellow Urine Appearance Clear Urine pH 7.0 Ur Specific [place] 1.010 Urine Protein 1+ H Urine Glucose (UA) Negative Urine Ketones Negative Urine Occult Blood Trace-lysed Urine Nitrate Negative Urine Bilirubin Negative Urine Urobilinogen 0.2 Ur Leukocyte Esterase 2+ H Urine RBC 0-1/hpf Urine WBC 5-10/hpf H Ur Squamous Epith Cells 0-1 /hpf Urine Bacteria Few (2-10) H Ur Culture Indicated? Specimen cultured Assessment & Plan Assessment & Plan narrative: The patient is a 68-year-old male with a history of chronic leg pain and cellulitis being treated in the outpatient setting. The patient presents for increasing pain and now has leukocytosis as well as muscle spasms. Patient is admitted for cellulitis failing outpatient treatment with long-term antibiotics. 1. Cellulitis bilateral lower extremities, chronic, present on admission, acute -patient with leukocytosis of 15.3 and procalcitonin of 0.12 and negative lactate of 0.9. -the patient is started on vancomycin 1.5 g IV in the ER, will initially continue 1.5 g IV daily based on renal function, pharmacy to dose. -patient bilateral lower extremity edema, for now will continue home regimen of Lasix 40 mg daily, elevate legs and apply compression hose. -patient also with chronic wounds being followed by wound clinic requesting wound consult. -will attempt to obtain wound culture. 2. Urinary tract infection, acute, present on admission, active -urinalysis: positive leukocyte esterase, WBCs and bacteria but denies urinary symptoms of burning urgency or frequency. -urine has been reflex to culture, patient is already on vancomycin will await sensitivities. 3. Acute kidney injury on on Chronic kidney disease, stage 4, present on admission, active -BUN is 45 with a creatinine of 2.0. Most recent creatinine was 1.6. -Patient has been on 40 mg of Lasix daily. -patient is on vancomycin which is renally dosed with the assistance of pharmacy. -will monitor renal function and may considered changed to daptomycin if renal toxicity of vancomycin is an issue. 4. Chronic anemia, present on admission, stable -patient with anemia related to chronic renal disease. -H&H is 10.1 in 36.6 which is approximate upper baseline. -monitor CBC. 5. Essential Hypertension, chronic, present on admission, active -Blood pressure on admission is 151/72 that is improved to 105/45. -continue doxazosin 4 mg daily at bedtime. 6. Diabetes type 2, [id number], stable -patient's hyperglycemia is managed with glipizide 1 mg daily. -blood sugars AC and HS -low range correctional insulin. The patient is admitted to the hospital related to the risk of adverse events and potential complications following failure of outpatient therapy of cellulitis. Patient will be admitted as an inpatient with expected length of stay to be greater than 2 midnights.
[2018-11-11] MEDS: OXYCODONE/ACETAMINOPHEN 5/325 TABLET 1 TAB PO ×3 (01:03→16:14)
[2018-11-11] MEDS: MAGNESIUM SULFATE 2 GM/50 ML PIGGYBACK IV (02:32)
--- NOTE | 2018-11-11 03:21 | PC.NURSE ---
Provider requested RN call [facility] to clarify Vanco dosing.
[2018-11-11] MEDS: VANCOMYCIN 500 MG in SODIUM CHLORIDE 0.9% 250 ML IV (04:41)
[2018-11-11] MEDS: CYCLOBENZAPRINE 10 MG TABLET PO (04:43)
[2018-11-11 06:20] LABS: Add Manual Diff / Slide Review NO; Basophils Absolute Auto 0 /uL (0-100); Basophils Percent Auto 0.3 % (0-2); Eosinophils Absolute Auto 400 /uL (0-450); Eosinophils Percent Auto 3.1 % (2-4); Hematocrit 25.5 % (41-53); Hemoglobin 8.7 g/dL (13.5-17.5); Lymphocytes Absolute Auto 1300 /uL (1100-4500); Lymphocytes Percent Auto 10.6 % (25-40); Mean Corpuscular HGB Conc 34.1 % (30-36); Mean Corpuscular Volume 93.7 fL (80-100); Monocytes Absolute Auto 1100 /uL (0-900); Neutrophils Absolute Auto 9100 /uL (1500-7000); Platelet Count 236 X10^3/uL (150-400); Red Blood Cell Count 2.72 X10^6/uL (4.5-5.9); White Blood Cell Count 11.9 X10^3/uL (4.5-11.0)
[2018-11-11 06:32] LABS: BUN Creatinine Ratio 22.8 (6-22); Blood Urea Nitrogen 41 mg/dL (9-20); Calcium 8.1 mg/dL (8.4-10.2); Carbon Dioxide 26 mmol/L (22-32); Chloride 101 mmol/L (98-107); Estimated Glomerular Filt Rate 37.8 mL/min (>60); Glucose 154 mg/dL (80-110); HEMOLYSIS < 15 (0-50); Sodium 137 mmol/L (137-145)
[2018-11-11 06:35] LABS: Hemoglobin A1C% w Est Avg Glu 6.4 % (4.0-6.0)
[2018-11-11 06:53] LABS: Procalcitonin 0.18 ng/mL (<0.5)
--- NOTE | 2018-11-11 08:06 | PM.PN.1 ---
Subjective Subjective Date Patient Seen: 11/11/18 Interval history: He is seen today to follow up the bilateral lower extremity cellulitis left more than right, diabetes type 2, anemia, chronic kidney disease type 3, possible urinary tract infection. His hemoglobin is 8.7 with a creatinine of 1.8 and a GFR 37.8. Exam Vital Signs (past 8 hours): - 11/11/18 01:08 11/11/18 02:00 11/11/18 05:00 Temperature 98.4 F 98.5 F Pulse Rate 80 Respiratory Rate 18 Blood Pressure 109/64 Pulse Oximetry 94 96 11/11/18 06:00 Temperature Pulse Rate Respiratory Rate Blood Pressure Pulse Oximetry 94 Oxygen Delivery Method Room Air Oxygen Flow Rate 0 Narrative Exam Narrative: He is alert and oriented x3, in no apparent distress. Heart is regular rate and rhythm without murmur. Lungs are clear to auscultation bilaterally. Extremities have bilateral pedal edema but no ankle edema. There are compression dressing wraps of 3 layers on both legs. The 1 on the left where the cellulitis is most prominent is removed and appears to confirm that there is posterior ankle redness/infection with lateral calf punctate ulcers that look like they have recently been debrided at the wound Care Center. These areas do not look infected. Objective Labs Result Diagrams: 11/11/18 05:53 11/11/18 05:53 Labs: Laboratory Results - last 24 hr 11/10/18 11/10/18 11/10/18 19:00 19:00 19:00 WBC 15.3 H RBC 3.24 L Hgb 10.1 L Hct 30.6 L MCV 94.7 MCH 31.4 MCHC 33.1 RDW 15.0 H Plt Count 287 Neut % (Auto) 81.4 H Lymph % (Auto) 8.6 L [place] % (Auto) 6.7 Eos % (Auto) 3.0 Baso % (Auto) 0.3 Neut # (Auto) 30643 H Lymph # (Auto) 1300 [place] # (Auto) 1000 H Eos # (Auto) 500 H Baso # (Auto) 0 Sodium 138 Potassium 4.3 Chloride 100 Carbon Dioxide 28 BUN 45 H Creatinine 2.00 H Estimated GFR 33.5 L BUN/Creatinine Ratio 22.5 H Glucose 122 H Hemoglobin A1c Lactate Calcium 8.9 Magnesium Procalcitonin 0.12 Urine Color Urine Appearance Urine pH Ur Specific [place] Urine Protein Urine Glucose (UA) Urine Ketones Urine Occult Blood Urine Nitrate Urine Bilirubin Urine Urobilinogen Ur Leukocyte Esterase Urine RBC Urine WBC Ur Squamous Epith Cells Urine Bacteria Ur Culture Indicated? 11/10/18 11/10/18 11/10/18 19:00 19:00 22:20 WBC RBC Hgb Hct MCV MCH MCHC RDW Plt Count Neut % (Auto) Lymph % (Auto) [place] % (Auto) Eos % (Auto) Baso % (Auto) Neut # (Auto) Lymph # (Auto) [place] # (Auto) Eos # (Auto) Baso # (Auto) Sodium Potassium Chloride Carbon Dioxide BUN Creatinine Estimated GFR BUN/Creatinine Ratio Glucose Hemoglobin A1c Lactate 0.9 Calcium Magnesium 1.7 Procalcitonin Urine Color Yellow Urine Appearance Clear Urine pH 7.0 Ur Specific [place] 1.010 Urine Protein 1+ H Urine Glucose (UA) Negative Urine Ketones Negative Urine Occult Blood Trace-lysed Urine Nitrate Negative Urine Bilirubin Negative Urine Urobilinogen 0.2 Ur Leukocyte Esterase 2+ H Urine RBC 0-1/hpf Urine WBC 5-10/hpf H Ur Squamous Epith Cells 0-1 /hpf Urine Bacteria Few (2-10) H Ur Culture Indicated? Specimen cultured 11/11/18 11/11/18 11/11/18 05:53 05:53 05:53 WBC 11.9 H RBC 2.72 L Hgb 8.7 L Hct 25.5 L MCV 93.7 MCH 32.0 MCHC 34.1 RDW 15.0 H Plt Count 236 Neut % (Auto) 77.0 H Lymph % (Auto) 10.6 L [place] % (Auto) 9.0 Eos % (Auto) 3.1 Baso % (Auto) 0.3 Neut # (Auto) 9100 H Lymph # (Auto) 1300 [place] # (Auto) 1100 H Eos # (Auto) 400 Baso # (Auto) 0 Sodium 137 Potassium 4.0 Chloride 101 Carbon Dioxide 26 BUN 41 H Creatinine 1.80 H Estimated GFR 37.8 L BUN/Creatinine Ratio 22.8 H Glucose 154 H Hemoglobin A1c Lactate Calcium 8.1 L Magnesium Procalcitonin 0.18 Urine Color Urine Appearance Urine pH Ur Specific [place] Urine Protein Urine Glucose (UA) Urine Ketones Urine Occult Blood Urine Nitrate Urine Bilirubin Urine Urobilinogen Ur Leukocyte Esterase Urine RBC Urine WBC Ur Squamous Epith Cells Urine Bacteria Ur Culture Indicated? 11/11/18 05:53 WBC RBC Hgb Hct MCV MCH MCHC RDW Plt Count Neut % (Auto) Lymph % (Auto) [place] % (Auto) Eos % (Auto) Baso % (Auto) Neut # (Auto) Lymph # (Auto) [place] # (Auto) Eos # (Auto) Baso # (Auto) Sodium Potassium Chloride Carbon Dioxide BUN Creatinine Estimated GFR BUN/Creatinine Ratio Glucose Hemoglobin A1c 6.4 H Lactate Calcium Magnesium Procalcitonin Urine Color Urine Appearance Urine pH Ur Specific [place] Urine Protein Urine Glucose (UA) Urine Ketones Urine Occult Blood Urine Nitrate Urine Bilirubin Urine Urobilinogen Ur Leukocyte Esterase Urine RBC Urine WBC Ur Squamous Epith Cells Urine Bacteria Ur Culture Indicated? Assessment & Plan Assessment & Plan narrative: The patient is a 68-year-old male with a history of chronic leg pain and cellulitis being treated in the outpatient setting. The patient presents for increasing pain and now has leukocytosis as well as muscle spasms. Patient was admitted for cellulitis failing outpatient treatment with long-term antibiotics. 1. Cellulitis bilateral lower extremities, chronic, present on admission, acute -patient with leukocytosis of 15.3 and procalcitonin of 0.12 and negative lactate of 0.9. -continue vancomycin, pharmacy to dose. -patient bilateral lower extremity edema, for now will continue home regimen of Lasix 40 mg daily, elevate legs and apply compression hose. -patient also with chronic wounds being followed by wound clinic requesting wound consult. -obtain wound culture. 2. Urinary tract infection, acute, present on admission, active -urinalysis: positive leukocyte esterase, WBCs and bacteria but denies urinary symptoms of burning urgency or frequency. -urine has been reflex to culture, patient is already on vancomycin will await sensitivities. 3. Acute kidney injury on on Chronic kidney disease, stage 3, present on admission, active -BUN is 45 with a creatinine of 2.0, now down to 1.8. Most recent creatinine was 1.6. With a current GFR of 37.8 -Patient has been on 40 mg of Lasix daily. -patient is on vancomycin which will be renally dosed with the assistance of pharmacy. -will monitor renal function and may consider changed to daptomycin if renal toxicity of vancomycin is an issue. 4. Chronic anemia, present on admission, stable -patient with anemia related to chronic renal disease. -H&H is 10.1 in 36.6 which is approximate upper baseline. -monitor CBC. 5. Essential Hypertension, chronic, present on admission, active -Blood pressure on admission is 151/72 that is improved to 105/45. -continue doxazosin 4 mg daily at bedtime. 6. Diabetes type 2, [id number], stable -patient's hyperglycemia is managed with glipizide 1 mg daily. -blood sugars AC and HS -low range correctional insulin.
[2018-11-11] MEDS: DULOXETINE 30 MG CAPSULE 60 MG PO (08:52)
[2018-11-11] MEDS: HEPARIN 5,000 UNIT/ML VIAL 5000 UNIT SUBCUT ×2 (08:52→22:04)
[2018-11-11] MEDS: FUROSEMIDE 40 MG TABLET PO (08:52)
[2018-11-11] MEDS: DOCUSATE 100 MG CAPSULE PO ×2 (08:53→22:04)
--- NOTE | 2018-11-11 12:24 | CM.DANOTE ---
Discharge Planning/Care Management DCP: assessment: Case received, EMR reviewed and met with pt. Introduced self and role. Pt was able to converse for a short time and then began to nod off between sentences. Pt is a 68 year male who admitted to care of hospitalist team. PCP: Dr. Quintana: is unclear why that clinic is not following...RN Coordinator Trixie is updated and will follow up on this. Payer: Medicare and Medicaid Pt is followed at the [facility]: a wound care consult is planned. Pt confirms that he lives in an apt on [address]. He has 2 roommates and describes them as a young couple, Darion and Kimber. Pt identifies his primary advocate as his sister Rosa Tubbs: [phone]. He says she is the one who usually drives him to his appointments. Asked about [facility] program as pt mentions that [facility] and [facility] come in to help him. He is unclear re who does what but says that a nurse and a therapist see him and he thinks [facility] does cleaning...he then nods off.. Pt was last here 09/28-10/01 2018 and did d/c to [facility]. He was also there in June of this year. Have a call into [facility] admissions to see if he has Medicare snf days left. Review of the CM/DCP notes of that stay indicate that pt is under the [facility] for the [facility] program and that Stalin is the pillowcase maker: [phone]. This office is closed today/Monday. It would seem probable that pt will again need a snf stay before he returns home. [facility] has called back. Reports that pt d/c'd from [facility] on 10/23 and that his 100 day SNF/Medicare benefit did reset with the September admission. She says he is appropriate for them to accept clinically. She will have to confer with the [facility] administrative team on Monday to get ok financially. She says he does have old history of owning the facility money when he was not yet on Medicaid and that she had to get approval during the September admission. She does not anticipate this will be a problem but must check. Meanwhile, full dx and tx plan is in process. CM DCP team will be following. CM Discharge Assessment Start: 09/08/19 12:10 Freq: Status: Active Protocol: Document 11/11/18 12:10 ITV (Rec: 11/11/18 12:15 ITV [id number]) Discharge Planning Assessment History Provided By Patient,Medical Record Prior Living Arrangements Apartment/Condo Independent with ADL's No Is patient alert and oriented? No: keeps nodding off during conversation Comment home health services: pt states [facility] fired me. Now [facility] comes in Whiteboard Updated in Patient Room with Yes name and ext. # of Skip Load Driver Review Status In Process
[2018-11-11] MEDS: INSULIN ASPART 100 UNIT/ML INSULN PEN SUBCUT (16:43)
[2018-11-11] MEDS: VANCOMYCIN 2,000 MG/400 ML PIGGYBACK 200 MG IV (21:59)
[2018-11-11] MEDS: SODIUM CHLORIDE 0.9% FLUSH 10 ML IV (22:00)
[2018-11-12] VITALS (11 sets, daily range): BP systolic 120–145; BP diastolic 53–73; PULSE 72–80; RESP 16–19; TEMP 36.4–37.2; O2SAT 95–98
[2018-11-12] MEDS: OXYCODONE/ACETAMINOPHEN 5/325 TABLET 1 TAB PO ×4 (00:03→18:23)
[2018-11-12] MEDS: SODIUM CHLORIDE 0.9% FLUSH 10 ML IV ×3 (01:35→21:45)
[2018-11-12] MEDS: CYCLOBENZAPRINE 10 MG TABLET PO (02:54)
[2018-11-12] MEDS: DULOXETINE 30 MG CAPSULE 60 MG PO (08:15)
[2018-11-12] MEDS: HEPARIN 5,000 UNIT/ML VIAL 5000 UNIT SUBCUT ×2 (08:15→21:46)
[2018-11-12] MEDS: FUROSEMIDE 40 MG TABLET PO (08:16)
[2018-11-12] MEDS: DOCUSATE 100 MG CAPSULE PO ×2 (08:16→21:45)
[2018-11-12] MEDS: INSULIN ASPART 100 UNIT/ML INSULN PEN SUBCUT ×3 (08:17→17:13)
[2018-11-12 08:30] LABS: Add Manual Diff / Slide Review NO; Basophils Absolute Auto 0 /uL (0-100); Basophils Percent Auto 0.4 % (0-2); Eosinophils Absolute Auto 500 /uL (0-450); Eosinophils Percent Auto 4.5 % (2-4); Hematocrit 27.7 % (41-53); Hemoglobin 9.2 g/dL (13.5-17.5); Lymphocytes Absolute Auto 900 /uL (1100-4500); Lymphocytes Percent Auto 8.5 % (25-40); Mean Corpuscular HGB Conc 33.1 % (30-36); Mean Corpuscular Hemoglobin 31.8 PG (26-34); Mean Corpuscular Volume 96.1 fL (80-100); Monocytes Absolute Auto 1000 /uL (0-900); Monocytes Percent Auto 8.8 % (3-14); Neutrophils Absolute Auto 8500 /uL (1500-7000); Neutrophils Percent Auto 77.8 % (50-75); Platelet Count 216 X10^3/uL (150-400); Red Blood Cell Count 2.89 X10^6/uL (4.5-5.9); Red Cell Distribution Width 15.2 % (11.6-14.8); White Blood Cell Count 10.9 X10^3/uL (4.5-11.0)
[2018-11-12 08:41] LABS: BUN Creatinine Ratio 20.5 (6-22); Blood Urea Nitrogen 39 mg/dL (9-20); Calcium 8.6 mg/dL (8.4-10.2); Carbon Dioxide 27 mmol/L (22-32); Chloride 101 mmol/L (98-107); Estimated Glomerular Filt Rate 35.5 mL/min (>60); Glucose 146 mg/dL (80-110); HEMOLYSIS < 15 (0-50); Potassium 4.6 mmol/L (3.4-5.1); Sodium 137 mmol/L (137-145)
--- NOTE | 2018-11-12 10:31 | PC.NURSE ---
Addendum entered by Mariluz Gurrola R.N. 11/12/18 14:25: MS - per Sarah in PT, pt was unable to stand and his lle was buckling, unsafe to tsf and requires carl lift. Addendum entered by Mariluz Gurrola R.N. 11/12/18 13:58: PAIN/MS - after lunch given perocet tab x1 for lle pain 6 on scale 0/10, phys therapy in for eval. Original Note: AM NOTE - pt is alert, states feels not bad after earlier muscle relaxant, discussed pain lle 6 on scale 0/10 and given 1 percocet tab this am with breakfast, sivakumar le w/kerlex wrap w/coban over, cdi, + pp, 2+ pedal edema, greater on l than r foot, discussed constipation and narcotics, states can't filemon miralax or mom, given stool softener.
--- NOTE | 2018-11-12 19:21 | P.PN_ITS ---
Subjective Subjective Date Patient Seen: 11/12/18 Time Patient Seen: 11:30 Interval history: Patient is seen for follow up of LLE cellulitis. He reports significant pain. Pending PT evaluation. Exam Vital Signs (past 8 hours): - 11/12/18 12:00 11/12/18 14:24 11/12/18 15:15 Temperature 98.3 F 98.6 F Pulse Rate 75 80 Respiratory Rate 17 18 Blood Pressure 140/71 136/73 Pulse Oximetry 96 95 98 Oxygen Delivery Method Room Air Oxygen Flow Rate 0 Narrative Exam Narrative: Exam Narrative: He is alert and oriented x3, in no apparent distress. Heart is regular rate and rhythm without murmur. Lungs are clear to auscultation bilaterally. Extremities have bilateral pedal edema but no ankle edema. There are compression dressing wraps of 3 layers on both legs. The 1 on the left where the cellulitis is most prominent is removed and appears to confirm that there is posterior ankle redness/infection with lateral calf punctate ulcers that look like they have recently been debrided at the wound Care Center. These areas do not look infected. Objective Labs Result Diagrams: 11/12/18 08:18 11/12/18 08:18 Labs: Laboratory Results - last 24 hr 11/12/18 11/12/18 08:18 08:18 WBC 10.9 RBC 2.89 L Hgb 9.2 L Hct 27.7 L MCV 96.1 MCH 31.8 MCHC 33.1 RDW 15.2 H Plt Count 216 Neut % (Auto) 77.8 H Lymph % (Auto) 8.5 L [place] % (Auto) 8.8 Eos % (Auto) 4.5 H Baso % (Auto) 0.4 Neut # (Auto) 8500 H Lymph # (Auto) 900 L [place] # (Auto) 1000 H Eos # (Auto) 500 H Baso # (Auto) 0 Sodium 137 Potassium 4.6 Chloride 101 Carbon Dioxide 27 BUN 39 H Creatinine 1.90 H Estimated GFR 35.5 L BUN/Creatinine Ratio 20.5 Glucose 146 H Calcium 8.6 Assessment & Plan Assessment & Plan narrative: The patient is a 68-year-old male with a history of chronic leg pain and cellulitis being treated in the outpatient setting. The patient presents for increasing pain and now has leukocytosis as well as muscle spasms. Patient was admitted for cellulitis failing outpatient treatment with long-term antibiotics. 1. Cellulitis bilateral lower extremities, chronic, present on admission, acute -patient with leukocytosis of 15.3 and procalcitonin of 0.12 and negative lactate of 0.9. -continue vancomycin, pharmacy to dose. -patient bilateral lower extremity edema, for now will continue home regimen of Lasix 40 mg daily, elevate legs and apply compression hose. -patient also with chronic wounds being followed by wound clinic. No need for inpatient evaluation given exam. 2. Urinary tract infection, acute, present on admission, active -urinalysis: positive leukocyte esterase, WBCs and bacteria but denies urinary symptoms of burning urgency or frequency. -urine has been reflex to culture, patient is already on vancomycin will await sensitivities. 3. Acute kidney injury on on Chronic kidney disease, stage 3, present on admission, active -BUN is 45 with a creatinine of 2.0, now down to 1.8. Most recent creatinine was 1.6. With a current GFR of 37.8 -Patient has been on 40 mg of Lasix daily. -patient is on vancomycin which will be renally dosed with the assistance of pharmacy. -will monitor renal function and may consider changed to daptomycin if renal toxicity of vancomycin is an issue. 4. Chronic anemia, present on admission, stable -patient with anemia related to chronic renal disease. -H&H is 10.1 in 36.6 which is approximate upper baseline. -monitor CBC. 5. Essential Hypertension, chronic, present on admission, active -Blood pressure on admission is 151/72 that is improved to 105/45. -continue doxazosin 4 mg daily at bedtime. 6. Diabetes type 2, [id number], stable -patient's hyperglycemia is managed with glipizide 1 mg daily. -blood sugars AC and HS -low range correctional insulin.
[2018-11-12] MEDS: SENNOSIDES 8.6 MG TABLET 17.2 MG PO (21:45)
[2018-11-12] MEDS: SODIUM CHLORIDE 0.9% 250 ML 21 ML IV (21:45)
[2018-11-12] MEDS: VANCOMYCIN 2,000 MG in SODIUM CHLORIDE 0.9% 500 ML 250 ML IV (21:45)
[2018-11-13] MEDS: OXYCODONE/ACETAMINOPHEN 5/325 TABLET 1 TAB PO ×4 (00:08→12:10)
[2018-11-13 03:00] VITALS: BP 117/87; PULSE 72; RESP 16; TEMP 36.4; O2SAT 92
[2018-11-13 04:17] VITALS: O2SAT 92
[2018-11-13 07:30] VITALS: BP 131/77; PULSE 75; RESP 18; TEMP 36.6; O2SAT 97
[2018-11-13 08:00] VITALS: O2SAT 95
[2018-11-13] MEDS: INSULIN ASPART 100 UNIT/ML INSULN PEN SUBCUT ×2 (08:30→12:07)
[2018-11-13] MEDS: DOCUSATE 100 MG CAPSULE PO (08:36)
[2018-11-13] MEDS: SODIUM CHLORIDE 0.9% FLUSH 10 ML IV (08:37)
[2018-11-13] MEDS: FUROSEMIDE 40 MG TABLET PO (08:37)
[2018-11-13] MEDS: HEPARIN 5,000 UNIT/ML VIAL 5000 UNIT SUBCUT (08:37)
[2018-11-13] MEDS: DULOXETINE 30 MG CAPSULE 60 MG PO (08:37)
[2018-11-13] MEDS: NYSTATIN POWDER 15GM 1 APPLIC TOP (09:47)
[2018-11-13] MEDS: BISACODYL 10 MG SUPP PR (09:47)
--- NOTE | 2018-11-13 10:13 | PC.NURSE ---
Addendum entered by Mariluz Gurrola R.N. 11/13/18 13:22: DC/TSF/ZECHARIAH Denis Marie [facility], sivakumar le were unrapped, venous ulcers w/slight serous drainage lat l calf area, redressed with Allevyn over Alginate, per Marie does not want wrapped at this time, prior to dc given percocet x 1 tab for pain, reviewed med list with and he stated tylenol and muscle relaxant should be sufficent for pain control at [facility], iv dc'd, report called to Osbaldo at [facility] [phone], belongings gathered, including cell phone, wallet, glasses, dentures, bag dirty clothes, shoes, carl lift to and packet info provided to [facility] staff. Original Note: AM NOTE - pt is alert, sivakumar leg wraps, 3+ pedal edema, states pain 6 on scale 0/10, given percocet po x 1 tab with breakfast, discussed constipation and narcotics, does feel like he needs bm, carl lift to [facility] w/o results, then ret bed and dulcolax suppos admin, wound clinic contacted re consult previously ordered, Kiara giving info to Dr. Flores.
--- NOTE | 2018-11-13 10:46 | P.DS_ITS ---
History of Present Illness History of Present Illness Date Patient Seen: 11/13/18 Time Patient Seen: 10:47 Chief complaint: Left leg pain, knee to foot Narrative: As per LUZ Alba Mr. Cristóbal Tubbs is a 68-year-old male patient with a history significant for hypertension, diabetes type 2 non-insulin dependent, chronic kidney disease stage 4, anemia of chronic disease and neuropathy who presents to the ER for complaints of left leg pain. Left leg pain has been chronic with history of cellulitis both legs. The patient is followed at the wound Care Clinic. He states about midnight last night he began having more pain with strong muscle spasms and states he is unable to bear weight on that leg due to the pain and spasms. At baseline he uses a walker or wheelchair. He states he has had no recent trauma and denies complaints of fevers or chills. Does report occasional headache but has no nasal congestion or sore throat. He denies shortness of breath cough or wheezing and has no chest pain or palpitations. Denies abdominal pain nausea vomiting though does report chronic constipation. The patient reports that he had previously been taking cyclobenzaprine but is out. Upon arrival in the ER the patient is afebrile with temperature of 98.3? with heart rate of 73, blood pressure 151/72, respirations 18 saturating 96% on room air. On laboratory analysis the patient is found have an elevated white count a t 15.3 with hemoglobin of 10.1 and hematocrit 30.6 and platelets of 287. His echo electrolytes are within normal range however he does have an elevated BUN at 45 and creatinine of 2.0 with a baseline approximately 1.8-2.0 but recently down as low as 1.6. His EGFR is 33.5 and a creatinine clearance related at 64.38. He does have positive urinalysis with 2+ leukocyte esterase, WBCs and bacteria with reflex to culture. His lactic acid is 0.9 and is procalcitonin 0.12. He has a magnesium of 1.7. The patient is admitted to the hospital for cellulitis failing outpatient treatment. Discharge Providers Provider Date of admission: 11/10/18 21:01 Discharge Date: 11/13/18 Primary care physician: Jim Quintana MD Consults: 11/10/18 22:13 Consult to Wound Care Routine Comment: Consulting Provider: [facility] 11/11/18 12:57 Consult to Wound Care Routine Comment: Consulting Provider: Kourtney [facility] 11/12/18 11:22 Consult to Physical Therapy Evaluate & Treat Comment: Physician Instructions: Evaluate and Treat Discharge provider: Enrrique Montoya DO Summary Hospital Course Discharge Diagnosis: 1. Cellulitis bilateral lower extremities, chronic, present on admission, acute 2. Asymyptomatic bacturia, present on admission. 3. Acute kidney injury on on Chronic kidney disease, stage 3, present on admission, active 4. Chronic anemia, present on admission, stable 5. Essential Hypertension, chronic, present on admission, active 6. Diabetes type 2, ugh-viwywfg-nnenorzig, stable Hospital Course: The patient is a 68-year-old male with a history of chronic leg pain and cellulitis being treated in the outpatient setting. The patient presents for increasing pain and now has leukocytosis as well as muscle spasms. Patient was admitted for cellulitis failing outpatient treatment with long-term antibiotics. 1. Cellulitis bilateral lower extremities, chronic, present on admission, acute- patient was treated with IV vanco as an inpatient. He had worsening pain due to cellulitis, he was seen by PT who recommended SNF rehab. -patient with leukocytosis of 15.3 and procalcitonin of 0.12 and negative lactate of 0.9. Leukocytosis improved during hospital stay. -patient bilateral lower extremity edema, for now will continue home regimen of Lasix 40 mg daily, elevate legs and apply compression hose. -patient also with chronic wounds being followed by wound clinic. No need for inpatient evaluation given exam. - continue outpatient treatment with doxycycline as noted below. 2. Asymptomatic bacturia, present on admission, active -urinalysis: positive leukocyte esterase, WBCs and bacteria but denies urinary symptoms of burning urgency or frequency. -urine has been reflex to culture, growing proteus mirablis but without symptoms no need for treatment. 3. Acute kidney injury on on Chronic kidney disease, stage 3, present on admission, resolved. 4. Chronic anemia, present on admission, stable -patient with anemia related to chronic renal disease. -H&H is 10.1 in 36.6 which is approximate upper baseline. 5. Essential Hypertension, chronic, present on admission, active -continue doxazosin 4 mg daily at bedtime. 6. Diabetes type 2, [id number]-senrvfpmp, stable -patient's hyperglycemia is managed with glipizide 1 mg daily. Dispo: To [facility] ([place]). Exam Vital Signs (past 8 hours): - 11/13/18 03:00 11/13/18 04:17 11/13/18 07:30 Temperature 97.6 F 97.8 F Pulse Rate 72 75 Respiratory Rate 16 18 Blood Pressure 117/87 131/77 Pulse Oximetry 92 92 97 11/13/18 08:00 Temperature Pulse Rate Respiratory Rate Blood Pressure Pulse Oximetry 95 Oxygen Delivery Method Room Air Oxygen Flow Rate 0 Narrative Exam Narrative: GENERAL APPEARANCE: Well developed, well nourished, in no acute distress. SKIN: Inspection of the skin mild erythema underlying bandages, improved from pr ior examinations. HEENT: The sclerae were anicteric and conjunctivae were pink and moist. Extraocular movements were intact and pupils were equal, round with normal accommodation. External inspection of the ears and nose showed no scars, lesions, or masses. Lips, teeth, and gums showed normal mucosa. The oral mucosa, hard and soft palate, tongue and posterior pharynx were unremarkable. NECK: Supple and symmetric. There was no thyroid enlargement, and no tenderness, or masses were felt. CHEST: Normal AP diameter and normal contour without any kyphoscoliosis. LUNGS: Auscultation of the lungs revealed no wheezes, rhonchi, or rales. CARDIOVASCULAR: There was a regular rate and rhythm without any murmurs, gallops, rubs. Peripheral pulses were 2+ and symmetric. ABDOMEN: Soft and nontender with normal bowel sounds. No ascites was noted. MUSCULOSKELETAL: There was no tenderness or effusions noted. Muscle strength and tone were normal. EXTREMITIES: No cyanosis, clubbing. Bilateral chronic LE edema, minimal NEUROLOGIC: Alert and oriented x 3. Normal affect. Strength is +5/5 in the Upper Extremities and Lower Extremities Bilaterally. Sensation to touch was normal. Objective Labs Result Diagrams: 11/12/18 08:18 11/12/18 08:18 Discharge Plan Discharge Plan Patient Disposition: SNF Transfer to: [facility] ([place]) Discharge Med Rec/Prescriptions Prescriptions: New cyclobenzaprine 5 mg tablet 5 mg PO TID PRN (Reason: muscle spasm) Qty: 10 RF: 0 doxycycline hyclate 100 mg tablet 100 mg PO BID 10 Days Qty: 20 RF: 0 Continued doxazosin 4 mg Tablet 4 mg PO BEDTIME RF: 0 acetaminophen 325 mg Tablet 650 mg PO Q4HR PRN (Reason: As Needed For Fever/Mild Pain) Qty: 100 RF: 0 furosemide 40 mg Tablet 60 mg PO DAILY RF: 0 duloxetine 60 mg capsule,delayed release(DR/EC) 60 mg PO BID RF: 0 lidocaine [Lidoderm] 5 % Adhesive Patch,Medicated 1 patch TOPICAL DAILY RF: 0 polyethylene glycol 3350 17 gram/dose Powder 17 g PO DAILY PRN (Reason: Constipation) RF: 0 silver sulfadiazine [SSD] 1 % cream 1 applic TOPICAL TID RF: 0 lorazepam 0.5 mg tablet 0.5 mg PO TID PRN (Reason: Anxiety) RF: 0 citalopram 20 MG tablet 20 mg PO DAILY RF: 0 glimepiride 1 mg tablet 1 mg PO DAILY RF: 0 Discontinued dicloxacillin 250 mg capsule 250 mg PO [id number] RF: 0 Follow up/Referrals: Jim Quintana MD [Primary Care Provider] - Osbaldo Flores MD [Physician] - Discharge Health Status Brief summary of current health status: 1. Cellulitis bilateral lower extremities, chronic, present on admission, acute- patient was treated with IV vanco as an inpatient. He had worsening pain due to cellulitis, he was seen by PT who recommended SNF rehab. -patient with leukocytosis of 15.3 and procalcitonin of 0.12 and negative lactate of 0.9. Leukocytosis improved during hospital stay. -patient bilateral lower extremity edema, for now will continue home regimen of Lasix 40 mg daily, elevate legs and apply compression hose. -patient also with chronic wounds being followed by wound clinic. No need for inpatient evaluation given exam. - continue outpatient treatment with doxycycline as noted below. 2. Asymptomatic bacturia, present on admission, active -urinalysis: positive leukocyte esterase, WBCs and bacteria but denies urinary symptoms of burning urgency or frequency. -urine has been reflex to culture, growing proteus mirablis but without symptoms no need for treatment. 3. Acute kidney injury on on Chronic kidney disease, stage 3, present on admission, resolved. 4. Chronic anemia, present on admission, stable -patient with anemia related to chronic renal disease. -H&H is 10.1 in 36.6 which is approximate upper baseline. 5. Essential Hypertension, chronic, present on admission, active -continue doxazosin 4 mg daily at bedtime. 6. Diabetes type 2, osr-yfccetn-nixpaoyzn, stable -patient's hyperglycemia is managed with glipizide 1 mg daily. Precautions: [place] Provider Discharge Instructions Diet: Diet as Tolerated Visit Report/Discharge Packet Instructions: DI for Muscle Spasm Discharge Data Primary Care Provider: Jim Quintana Discharges patient from system. Discharge Date/Time: 11/13/18 13:15
[2018-11-13 11:00] VITALS: BP 134/71; PULSE 68; RESP 18; TEMP 36.4; O2SAT 95
--- NOTE | 2018-11-13 11:56 | PT.IPTN ---
Current Diagnoses Cellulitis of left lower limb (11/10/18) Physical Therapy Treatment Note M2 PT-IP Current Condition Start: 11/12/18 11:40 Freq: NEEDED Status: Active Protocol: Document 11/12/18 14:23 RS (Rec: 11/12/18 14:38 RS [id number]) Physical Therapy Current Condition Current Condition Evaluation Date 11/12/18 Treatment Diagnosis debility, leg weakness, high fall risk Onset Date several days ago M3 PT-IP Subjective Start: 11/12/18 11:40 Freq: NEEDED Status: Active Protocol: Document 11/13/18 11:56 CLB (Rec: 11/13/18 12:16 CLB [id number]) Subjective Physical Therapy Visit Type Type Patient Unavailable Notes RN unwrapping pt bandages and pt is waiting for wound care. M4 PT-IP Mobility and Gait Start: 11/12/18 11:40 Freq: NEEDED Status: Active Protocol: Document 11/12/18 14:23 RS (Rec: 11/12/18 14:38 RS [id number]) PT-Bed Mobility Assessment Supine to Sit Supine to Sit Standby Assistance,Head of Bed Elevated,Bedrails Sit to Supine Sit to Supine Standby Assistance,Head of Bed Elevated,Bedrails Scooting Scooting to Edge of Bed Contact Guard Assistance PT-Transfer Assessment Sit to and From Stand Sit to and from Stand Moderate Assistance Equipment Transfer Assistive Device Gait Belt,Front Wheeled Walker Comments Mobility Comments Pt able to get up to EOB fairly easily when using bed features. However, pt needed up to mod A to stand up and then to maintain standing. Significant bilat knee instability observed. Pt had to rely on full/locked knee extension to feel steady but could never get the LLE to lock. When attempting to weight shift to the left the L knee gave out and pt needed max A to prevent fall. Attempted again with same result. Pt not currently safe to transfer standing, recommend staff use mechanical lift. Gait Assessment Comments Gait Comments not appropriate to assess PT-Balance Assessment Sitting Balance and Reactions Static Sitting Balance Ability Normal Dynamic Sitting Balance Ability Good Standing Balance and Reactions Static Standing Balance Ability Poor Dynamic Standing Balance Ability Poor Device Used FWW evens M5 PT-IP Objective Assessments Start: 11/12/18 11:40 Freq: NEEDED Status: Active Protocol: Document 11/12/18 14:23 RS (Rec: 11/12/18 14:38 [id number]) Orientation Orientation/Cognition Level of Alertness Alert Orientation Name,Age,Birthday,Month,Date, Year,Day of Week,Place, Situation Language Function Ability No Deficits Noted Safety Awareness Understands Safety Issues Memory Description No Deficits Noted Gross Range of Motion Lower Extremity ROM Impairments BLE grossly intact compared to baseline, bilat ankles are slightly limited into DF Strength Lower Extremity Strength Assessment Bilaterally Impaired Hip R 4-/5, L 3+/5 Knee R 3/5, 3-/5 Ankle not tested due to bandaging/ weeping Sensation Assessment Comments Sensation Comments Pt reports BLE neuropathy but sensation not formally tested M6 PT-IP Treatment Start: 11/12/18 11:40 Freq: NEEDED Status: Active Protocol: Document 11/12/18 14:23 RS (Rec: 11/12/18 14:38 [id number]) Physical Therapy Treatment Education Education Provided Safety M7 PT-IP Assessment and Plan Start: 11/12/18 11:40 Freq: NEEDED Status: Active Protocol: Document 11/12/18 14:23 RS (Rec: 11/12/18 14:38 [id number]) PT Summary Assessment and Plan Potential Rehabilitation Potential Fair Status of Condition at Evaluation Evolving Summary Impairments Pain,Strength,Balance, Transfers,Gait,Activity Tolerance Assessment Summary Pt presents with gross weakness on top of more localized weakness in BLE (L more weak than the R). Pt unable to support his body weight in standing for more than a few seconds even with assist. Pt's L knee completely gave out twice during mobility assessment such that it was deemed unsafe to attempt a standing transfer to the chair. Pt is not safe to discharge home as he is significantly below his reported functional baseline and is at a high fall risk. Pt does have potential for functional improvement and will benefit from ongoing acute PT with transition to subacute PT at SNF once medically ready. Goals Bed Mobility Goal Independent Transfer Goal Minimal Assistance,Front Wheeled Walker Gait Goal Minimal Assistance,Front Wheel Walker Gait Distance 10 Days to Meet Goals 5 Frequency of Treatment Frequency Of Treatment Twice a Day Treatment Plan Physical Therapy Treatment Plan Bed Mobility Training,Transfer Training,Gait Training, Therapeutic Exercise,Balance Retraining,Post Op Education, Discharge Planning,Hot or Cold Pack,Neuromuscular Re-ed, Coordination Retraining,Manual Therapy Other Recommendations and Next Treatment establish HEP for outside Focus therapy sessions, trial standing/transfers as able, consider a board transfer if no improvement in strength/ upright control Recommendations To Nursing Amount of Assist Needed Mechanical Lift Discharge Recommendations PT Discharge Recommendations SNF Rehab
--- NOTE | 2018-11-13 12:05 | CM.DPC ---
DCP Discharge SNF Per MD, pt is medically stable to d/c to SNF today. Per RN, pt still to be seen by composite laminator Maire for final recommendations on wound care. LRAS called [facility] and updated on pt d/c today around 1300 and confirmed that Marie graciously will come to meet bedside with pt before 1200 to complete his wound care recommendations prior to d/c to [facility]. LARS updated [facility] August on pt d/c and she confirms they can accept pt today and agreeable with printing off wound care note and instructions after d/c if not available before as they are really wanting to transport pt around 1300 today. DEMETRA Jose kindly faxing d/c packet to [facility] to review. LARS met bedside with pt and explained role again and pt still agreeable with d/c plan to [facility] today until he is safe for d/c back home with roommates. LARS updated FURNACE RELINER, N[place], RN regarding d/c plan and time. Plan: Patient to d/c to [facility] at 1300 for ongoing wound care and rehab prior to safe return home. Gemma Choi, NOELLE
== END 2018-11-13 13:15 | DRG 603 ==
LOC: ED 21:00 → AC 21:01
PROVIDERS: Emergency Medicine; Internal Medicine; Admitting Provider Nurse Practitioner Adult Health; Emergency Provider Emergency Medicine; Family Provider Family Medicine; PCP Family Medicine; Visit Provider Nurse Practitioner Adult Health
DX: L03.116 Cellulitis of left lower limb (principal); N17.9 Acute kidney failure, unspecified; Z68.41 Body mass index [BMI] 40.0-44.9, adult; L03.115 Cellulitis of right lower limb; N18.9 Chronic kidney disease, unspecified; D63.1 Anemia in chronic kidney disease; N18.3 Chronic kidney disease, stage 3 (moderate); E66.9 Obesity, unspecified; E11.9 Type 2 diabetes mellitus without complications; Z87.891 Personal history of nicotine dependence
CPT/HCPCS: 36415; 36591; 80048; 81001; 82962; 83036; 83605; 83735; 84145; 85025; 87040; 87077; 87086; 87186; 97162; 97530; 99283; J1644; J3370

== ENCOUNTER → 2018-11-16 11:12 | Outpatient (CLI) | payer MEDICARE, SELFPAY ==
[2018-11-10 21:43] VITALS: BMI 40.1
== END ==
PROVIDERS: Family Provider Family Medicine; PCP Family Medicine; Visit Provider Family Medicine
DX: I87.313 Chronic venous hypertension (idiopathic) with ulcer of bilateral lower extremity (principal); L97.822 Non-pressure chronic ulcer of other part of left lower leg with fat layer exposed; L97.812 Non-pressure chronic ulcer of other part of right lower leg with fat layer exposed; I73.9 Peripheral vascular disease, unspecified; L03.116 Cellulitis of left lower limb; L03.115 Cellulitis of right lower limb; B95.61 Methicillin susceptible Staphylococcus aureus infection as the cause of diseases classified elsewhere; B96.5 Pseudomonas (aeruginosa) (mallei) (pseudomallei) as the cause of diseases classified elsewhere
CPT/HCPCS: 11042; 11045; 99213; 99214

== ENCOUNTER → 2018-11-23 10:06 | Outpatient (CLI) | payer MEDICARE, SELFPAY ==
[2018-11-10 21:43] VITALS: BMI 40.1
== END ==
PROVIDERS: Family Provider Family Medicine; PCP Family Medicine; Visit Provider Family Medicine
DX: I87.313 Chronic venous hypertension (idiopathic) with ulcer of bilateral lower extremity (principal); L97.822 Non-pressure chronic ulcer of other part of left lower leg with fat layer exposed; I73.9 Peripheral vascular disease, unspecified; L03.116 Cellulitis of left lower limb; L03.115 Cellulitis of right lower limb; B95.61 Methicillin susceptible Staphylococcus aureus infection as the cause of diseases classified elsewhere; B96.5 Pseudomonas (aeruginosa) (mallei) (pseudomallei) as the cause of diseases classified elsewhere
CPT/HCPCS: 11042; 11045; 87070; 87075; 87205

== ENCOUNTER → 2018-11-30 10:44 | Outpatient (CLI) | payer SELFPAY ==
[2018-11-10 21:43] VITALS: BMI 40.1
== END ==
PROVIDERS: Family Provider Family Medicine; PCP Family Medicine; Visit Provider Family Medicine
DX: I87.2 Venous insufficiency (chronic) (peripheral) (principal); E11.622 Type 2 diabetes mellitus with other skin ulcer; L97.829 Non-pressure chronic ulcer of other part of left lower leg with unspecified severity; I73.9 Peripheral vascular disease, unspecified
CPT/HCPCS: 97597; 97598

== ENCOUNTER → 2018-12-07 10:18 | Outpatient (CLI) | payer MEDICARE, SELFPAY ==
[2018-11-10 21:43] VITALS: BMI 40.1
== END ==
PROVIDERS: Family Provider Family Medicine; PCP Family Medicine; Visit Provider Family Medicine
DX: I87.2 Venous insufficiency (chronic) (peripheral) (principal); E11.622 Type 2 diabetes mellitus with other skin ulcer; L97.829 Non-pressure chronic ulcer of other part of left lower leg with unspecified severity; I73.9 Peripheral vascular disease, unspecified; R60.0 Localized edema
CPT/HCPCS: 11042; 11045; 99214

== ENCOUNTER → 2018-12-14 10:09 | Outpatient (CLI) | payer MEDICARE, SELFPAY | PROVIDERS: Family Provider Family Medicine; PCP Family Medicine; Visit Provider Family Medicine | DX: I87.2 Venous insufficiency (chronic) (peripheral) (principal); L97.828 Non-pressure chronic ulcer of other part of left lower leg with other specified severity | CPT/HCPCS: 29581; 99214 ==

== ENCOUNTER 2018-12-19 15:15 | Emergency (ER) | payer MEDICARE, SELFPAY ==
[2018-12-19 15:22] VITALS: BP 148/71; PULSE 81; RESP 18
--- NOTE | 2018-12-19 15:35 | DI.RAD.S_ITS ---
PROCEDURE: XR CERVICAL SPINE 2V OR 3V INDICATIONS: frequent falls, neck/shoulder pain TECHNIQUE: 2 view(s) of the cervical spine were acquired. COMPARISON: [facility], , XR CERVICAL SPINE 2V OR 3V, 09/24/2018, 14:45. FINDINGS: Bones: Fixation hardware spanning C2-T2. The inferior aspect of the fixation hardware including pedicle screws is not well-seen due to overlying soft tissues. Fracture pedicle screws at right T1-T2 and left T1 are again seen. No new pedicle screw fractures identified. Osteopenia. No acute fractures identified. No dislocation. Extensive degenerative change in the cervical spine. No suspicious bony lesions. Soft tissues: No prevertebral soft tissue swelling. Prevertebral calcification is unchanged. Lung apices appear clear. IMPRESSION: No acute fracture or pedicle screw fractures identified. Recommend CT cervical spine if concern for occult fracture. Dictated by: Emmanuel Echavarria M.D. on 12/19/2018 at 16:46 Approved by: Emmanuel Echavarria M.D. on 12/19/2018 at 16:51
--- NOTE | 2018-12-19 15:35 | DI.RAD.S_ITS ---
PROCEDURE: XR SHOULDER LT MIN 2V INDICATIONS: frequent falls, neck/shoulder pain TECHNIQUE: 3 views of the shoulder were acquired. COMPARISON: [facility], CR, XR SHOULDER LT MIN 2V, 09/24/2018, 14:45. FINDINGS: Bones: No fractures or dislocations. Superior subluxation of the humerus in relation to the glenoid is suggestive of chronic rotator cuff tear and appears similar to radiograph 09/24/2018. No suspicious bony lesions. Visualized ribs appear intact. Cervical spine and lower thoracic spine fixation hardware partially visualized. Soft tissues: No suspicious soft tissue calcifications. IMPRESSION: 1. No fracture or dislocation. 2. Similar superior subluxation of the humeral head suggesting chronic left rotator cuff tear. Dictated by: Emmanuel Echavarria M.D. on 12/19/2018 at 16:51 Approved by: Emmanuel Echavarria M.D. on 12/19/2018 at 16:53
--- NOTE | 2018-12-19 15:35 | DI.RAD.S_ITS ---
PROCEDURE: XR SHOULDER RT MIN 2V INDICATIONS: frequent falls, neck/shoulder pain TECHNIQUE: 3 views of the shoulder were acquired. COMPARISON: CXR 09/27/2018. [facility], CR, XR SHOULDER LT MIN 2V, 09/24/2018, 14:45. FINDINGS: Bones: No acute fracture identified. No dislocation. Widening of the acromioclavicular joint with prominent osteophyte. Multiple loose bodies adjacent to the glenoid. Humeral head enthesophyte. Superior subluxation of the humeral head relation to the glenoid suggesting chronic rotator cuff tear. No suspicious bony lesions. Visualized ribs appear intact. Soft tissues: No suspicious soft tissue calcifications. IMPRESSION: No acute fracture or dislocation seen. Extensive degenerative change. Dictated by: Emmanuel Echavarria M.D. on 12/19/2018 at 16:53 Approved by: Emmanuel Echavarria M.D. on 12/19/2018 at 16:55
--- NOTE | 2018-12-19 17:31 | PC.NURSE ---
Patient has chronic neck and back pain secondary to neck surgery. patient fell approx one year ago got a concussion with bilateral shoulder pain. Has a known rotator cuff tear and possible humeral dislocation. patient expresses frustration with Dr Quintana as he is no longer addressing his pain. Patient requesting help with pain and help getting in with [facility] for [place].
[2018-12-19] MEDS: ACETAMINOPHEN 325 MG TABLET 975 MG PO (17:39)
[2018-12-19] MEDS: LIDOCAINE PATCH 1 EACH ADH..PATCH TOP ×2 (17:39→17:47)
[2018-12-19] MEDS: KETOROLAC 60 MG/2 ML VIAL 30 MG IM (17:39)
--- NOTE | 2018-12-19 17:41 | ED_ITS ---
HPI - Back Pain/Injury <LUZ Steward - Last Filed: 12/19/18 23:41> General Chief Complaint: Back Pain/Injury Stated Complaint: NECK AND SHOULDER PAIN Time Seen by Provider: 12/19/18 16:50 Source: patient and family Mode of arrival: Ambulatory Limitations: no limitations History of Present Illness HPI Narrative: This is a 68-year-old gentleman, former smoker, who presents to ED with daughter with chief complain of increasing chronic shoulder pain and neck pain. Patient had injured his neck 5 years ago and was transferred to [facility] and had surgical intervention done. He usually uses a walker for ambulation. Patient and daughter reports that his PCP, Dr. Quintana decided to stop prescribing narcotic medication which he used to receive 240 tabs/month for last 2 years. Patient is known history of alcoholism and reports that patient was unconscious for 9 days and was accused for opioid overdose at that time. However, patient states he has been abstinence from drinking alcohol recently. Dr. Quintana had tried nonnarcotic medications such as gabapentin, Tylenol, ibuprofen which have not been effective for pain management. According to daughter, patient had a recent fall and he has increasing pain in neck and shoulder. Patient is hoping to get surgical intervention for his shoulder pain due to rotator cuff injury and possible another surgical intervention for [place] at [place]. Today, patient was referred to ED by home healthcare nurse for pain management and evaluation. Related Data Home Medications Medication Instructions Recorded Confirmed citalopram 20 mg PO DAILY 12/25/17 11/12/18 glimepiride 1 mg PO DAILY 03/22/18 11/12/18 doxazosin 4 mg PO BEDTIME 06/07/18 11/12/18 furosemide 60 mg PO DAILY 09/27/18 11/12/18 duloxetine 60 mg PO BID 09/28/18 11/12/18 lidocaine [Lidoderm] 1 patch TOPICAL DAILY 09/28/18 11/12/18 polyethylene glycol 3350 17 g PO DAILY PRN 09/28/18 11/12/18 lorazepam 0.5 mg PO TID PRN 11/12/18 11/12/18 silver sulfadiazine [SSD] 1 applic TOPICAL TID 11/12/18 11/12/18 Previous Rx's Medication Instructions Recorded acetaminophen 650 mg PO Q4HR PRN #100 tab 06/12/18 cyclobenzaprine 5 mg PO TID PRN #10 tab 11/10/18 doxycycline hyclate 100 mg PO BID 10 Days #20 tab 11/13/18 lidocaine 1 patch TOP DAILY #30 each 12/19/18 Allergies Allergy/AdvReac Type Severity Reaction Status Date / Time latex Allergy Mild IRRITATION Verified 11/10/18 15:59 Sulfa (Sulfonamide AdvReac Mild N&V 1HOUR Verified 11/10/18 15:59 Antibiotics) AFTER RX, THINKS IT IS RELATED Review of Systems <LUZ Steward - Last Filed: 12/19/18 23:41> Review of Systems Narrative: General: Denies fever, chills, fatigue, malaise, sweats. HEENT: Denies sinus pain, ear pain, sore throat, difficulty swallowing, dizziness. Respiratory: Denies dyspnea, cough, wheezing, hemoptysis, sputum. Cardiovascular: Denies chest pain, palpitations, orthopnea, edema. Gastrointestinal: Denies nausea, vomiting, abdominal pain, diarrhea, constipation, melena. : Denies dysuria, frequency, incontinence, hematuria, urinary retention. Musculoskeletal: Reports increasing neck pain and bilateral shoulder pain without weakness. Skin: Denies rash, skin lesions, or other. Neurologic: Denies weakness, headache, numbness, change in speech, confusion, seizures, incoordination. Psychiatric: No concerning psychosocial issues. 12-point review of systems is negative except for those stated above. Patient History <ULZ Steward - Last Filed: 12/19/18 23:41> Medical History Alcoholism (Chronic) Anemia associated with chronic renal failure (Chronic) Chronic kidney disease, stage 4 (severe) (Chronic) Chronic pain (Chronic) Depression (Chronic) Diabetes type 2, controlled (Chronic) Duodenal ulcer (Acute) GI bleed (Resolved) Gout, arthropathy (Chronic) History of cervical fracture (Resolved) Hyperparathyroidism (Chronic) Hypertension (Chronic) Left leg pain (Chronic) Symptomatic anemia (Chronic) Surgical History H/O cervical spine surgery (Acute) History of colectomy (Resolved) Social History household members: friend(s) and other Smoking Status: Former smoker alcohol intake: current Social History household members: friend(s) and other Smoking Status: Former smoker alcohol intake: current alcohol intake frequency: 3 or more drinks per day Substance Use Type: does not use Exam <LUZ Steward - Last Filed: 12/19/18 23:41> Narrative Exam Narrative: General appearance: well developed, well nourished, in no acute distress. Head: normocephalic, atraumatic, no scalp lesions, non-tender. Eye: pupil equal, round. EOMI. Nose: nares patent. Oral: mucosa moist. Neck/Thyroid: neck supple, no visible masses. Skin: no suspicious rashes, lesions over visible areas. Warm and dry. Heart: no clubbing, no cyanosis, no edema. Lungs: Breathing even and unlabored. No stridor. No accessory muscles used. Chest: normal shape and expansion. Abdomen: non-obese, non-distended. Neurologic: alert and oriented. Cognitive exam, DECKHAND and PNS grossly intact on informal exam. Psych: good eye contact, normal affect. Initial Vital Signs Initial Vital Signs: Vital Signs Pulse Rate 81 12/19/18 15:22 Respiratory Rate 18 12/19/18 15:22 Blood Pressure 148/71 H 12/19/18 15:22 Extrem Right upper extremity: normal to inspection, shoulder/upper arm Details: normal to inspection and abnormal ROM Details: pain with active ROM and hand Details: normal to inspection, normal capillary refill and neurosensory exam normal Left upper extremity: normal to inspection, shoulder/upper arm Details: inspection abnormal and abnormal ROM Details: pain with active ROM and hand Details: normal to inspection, normal capillary refill and neurosensory exam normal <Belle Martinez MD - Last Filed: 12/20/18 07:52> Initial Vital Signs Initial Vital Signs: Vital Signs Pulse Rate 81 12/19/18 15:22 Respiratory Rate 18 12/19/18 15:22 Blood Pressure 148/71 H 12/19/18 15:22 Scores <LUZ Steward - Last Filed: 12/19/18 23:41> GCS [place] coma scale eye opening: Spontaneous Emi coma scale verbal response: Orientated [place] coma scale motor response: Obey commands Emi coma scale total score: 15 Course <LUZ Steward - Last Filed: 12/19/18 23:41> Orders Ordered: Discontinued Medications Acetaminophen (Tylenol) 975 mg PO NOW ONE Stop: 12/19/18 17:30 Last Admin: 12/19/18 17:39 Dose: 975 mg Documented by: ADDY Ketorolac Tromethamine (Toradol) 30 mg IM NOW ONE Stop: 12/19/18 17:30 Last Admin: 12/19/18 17:39 Dose: 30 mg Documented by: ADDY Lidocaine (Lidoderm) 1 each TOP NOW ONE Stop: 12/19/18 17:30 Last Admin: 12/19/18 17:39 Dose: 1 each Documented by: ADDY Lidocaine (Lidoderm) 1 each TOP NOW ONE Stop: 12/19/18 17:42 Last Admin: 12/19/18 17:47 Dose: 1 each Documented by: ADDY Vital Signs Vital signs: Vital Signs - 8 hr 12/19/18 15:22 Pulse Rate 81 Respiratory Rate 18 Blood Pressure 148/71 H <Belle Martinez MD - Last Filed: 12/20/18 07:52> Orders Ordered: Discontinued Medications Acetaminophen (Tylenol) 975 mg PO NOW ONE Stop: 12/19/18 17:30 Last Admin: 12/19/18 17:39 Dose: 975 mg Documented by: ADDY Ketorolac Tromethamine (Toradol) 30 mg IM NOW ONE Stop: 12/19/18 17:30 Last Admin: 12/19/18 17:39 Dose: 30 mg Documented by: ADDY Lidocaine (Lidoderm) 1 each TOP NOW ONE Stop: 12/19/18 17:30 Last Admin: 12/19/18 17:39 Dose: 1 each Documented by: ADDY Lidocaine (Lidoderm) 1 each TOP NOW ONE Stop: 12/19/18 17:42 Last Admin: 12/19/18 17:47 Dose: 1 each Documented by: ADDY Vital Signs Vital signs: Vital Signs - 8 hr 12/19/18 15:22 Pulse Rate 81 Respiratory Rate 18 Blood Pressure 148/71 H MDM - Back Pain/Injury <LUZ Steward - Last Filed: 12/19/18 23:41> Differential Diagnosis Differential diagnosis: Likely other (Chronic shoulder pain, rotator cuff injury, cervical strain) Medical Records Attestation: I reviewed the patient's medical records. Imaging Data XR-shoulder RT: Radiologist's impression: [address] [address] XRay Report Signed Patient: Cristóbal Tubbs WMR#: [id number] : [id number]:[id number] Age/Sex: 68 / MDate of Service: 12/19/18 Loc: ED Accession Number: [id number] Procedure: XR shoulder RT min 2V Ordering Provider: Belle Martinez MD PROCEDURE: XR SHOULDER RT MIN 2V INDICATIONS: frequent falls, neck/shoulder pain TECHNIQUE: 3 views of the shoulder were acquired. COMPARISON: CXR 09/27/2018. [facility], CR, XR SHOULDER LT MIN 2V, 09/24/2018, 14:45. FINDINGS: Bones: No acute fracture identified. No dislocation. Widening of the acromioclavicular joint with prominent osteophyte. Multiple loose bodies adjacent to the glenoid. Humeral head enthesophyte. Superior subluxation of the humeral head relation to the glenoid suggesting chronic rotator cuff tear. No suspicious bony lesions. Visualized ribs appear intact. Soft tissues: No suspicious soft tissue calcifications. IMPRESSION: No acute fracture or dislocation seen. Extensive degenerative change. Dictated by: Emmanuel Echavarria M.D. on 12/19/2018 at 16:53 Approved by: Emmanuel Echavarria M.D. on 12/19/2018 at 16:55 XR-Shoulder LT: Radiologist's impression: [address] [address] XRay Report Signed Patient: Cristóbal Tubbs WMR#: [id number] : [id number]:[id number] Age/Sex: 68 / MDate of Service: 12/19/18 Loc: ED Accession Number: [id number] Procedure: XR shoulder LT min 2V Ordering Provider: Belle Martinez MD PROCEDURE: XR SHOULDER LT MIN 2V INDICATIONS: frequent falls, neck/shoulder pain TECHNIQUE: 3 views of the shoulder were acquired. COMPARISON: [facility], CR, XR SHOULDER LT MIN 2V, 09/24/2018, 14:45. FINDINGS: Bones: No fractures or dislocations. Superior subluxation of the humerus in relation to the glenoid is suggestive of chronic rotator cuff tear and appears similar to radiograph 09/24/2018. No suspicious bony lesions. Visualized ribs appear intact. Cervical spine and lower thoracic spine fixation hardware partially visualized. Soft tissues: No suspicious soft tissue calcifications. IMPRESSION: 1. No fracture or dislocation. 2. Similar superior subluxation of the humeral head suggesting chronic left rotator cuff tear. Dictated by: Emmanuel Echavarria M.D. on 12/19/2018 at 16:51 Approved by: Emmanuel Echavarria M.D. on 12/19/2018 at 16:53 XR Cervical spine: Radiologist's impression: [address] [address] XRay Report Signed Patient: Cristóbal Tubbs WMR#: [id number] : 2Acct:[id number] Age/Sex: 68 / MDate of Service: 12/19/18 Loc: ED Accession Number: [id number] Procedure: XR cervical spine 2V or 3V Ordering Provider: Belle Martinez MD PROCEDURE: XR CERVICAL SPINE 2V OR 3V INDICATIONS: frequent falls, neck/shoulder pain TECHNIQUE: 2 view(s) of the cervical spine were acquired. COMPARISON: [facility], , XR CERVICAL SPINE 2V OR 3V, 09/24/2018, 14:45. FINDINGS: Bones: Fixation hardware spanning C2-T2. The inferior aspect of the fixation hardware including pedicle screws is not well-seen due to overlying soft tissues. Fracture pedicle screws at right T1-T2 and left T1 are again seen. No new pedicle screw fractures identified. Osteopenia. No acute fractures identified. No dislocation. Extensive degenerative change in the cervical spine. No suspicious bony lesions. Soft tissues: No prevertebral soft tissue swelling. Prevertebral calcification is unchanged. Lung apices appear clear. IMPRESSION: No acute fracture or pedicle screw fractures identified. Recommend CT cervical spine if concern for occult fracture. Dictated by: Emmanuel Echavarria M.D. on 12/19/2018 at 16:46 Approved by: Emmanuel Echavarria M.D. on 12/19/2018 at 16:51 MDM Narrative Medical decision making narrative: This is a 68-year-old gentleman who presents to ED with worsening chronic pain in his cervical spine and bilateral shoulders. According to patient and daughter patient's pain has not been well managed without narcotic pain medication which recently had stopped prescribed by his primary care physician. Patient reports tried other nonnarcotic medication regimen but this has not been effective. X-ray test was obtained on C-spine, bilateral shoulder. There was no acute findings such as new fractures, increasing dislocation, or new changes per today's x-ray tests. I discussed with patient and daughter in length about pain management without narcotic pain medications as Dr. Quintana' intent. Patient agrees with taking [id number] Tylenol and or Motrin along lidocaine patch. A copy of imaging tests were put into CD for patient to follow up with [facility]. Patient also has provided with [facility] for his chronic shoulder pain, chronic rotator cough and subluxation of the humeral head which patient is open to get surgical intervention. Patient was treated with lidocaine patch, Tylenol and Toradol injection in ED before discharged to home. Patient and daughter agrees with the treatment plan and verbalized understanding. Advised to follow up with Dr. Quintana for possible referrals as well. Discharge Plan Departure Patient Disposition: Home Clinical Impression: Neck pain Chronic shoulder pain Qualifiers: Laterality: bilateral Qualified Code(s): M25.511 - Pain in right shoulder Discharge Date/Time: 12/19/18 18:26 Instructions: DI for Shoulder Pain, DI for Chronic Neck Pain Activity Restrictions/Additional Instructions: You have been diagnosed with [chronic neck and shoulder pain]. What to do: *Take your medications as directed. I have transmitted lidocaine patches to [facility] in [place]. Please take [id number] Tylenol up to 4000 mg in 24. You can add ibuprofen 400-800 mg 3 to 4 times a day with meals as needed for pain. We have made x-ray images into a disc for you to follow up. *Follow up with your primary care provider in 2-3 days, call for an appointment. Let them know you were seen in the ED and that we asked you to be seen in follow up. I also added [facility] orthopedist information with this discharge instruction for you're shoulder pain follow-up. *Return to ED if you have any new, worsening, or concerning symptoms, such as [worsening pain, worsening weakness/tingling/numbness, chest pain, breathing difficulty, vision change, or any acute concerns]. Prescriptions: New lidocaine 5 % adhesive patch,medicated 1 patch TOP DAILY Qty: 30 RF: 0 No Action doxazosin 4 mg Tablet 4 mg PO BEDTIME RF: 0 acetaminophen 325 mg Tablet 650 mg PO Q4HR PRN (Reason: As Needed For Fever/Mild Pain) Qty: 100 RF: 0 furosemide 40 mg Tablet 60 mg PO DAILY RF: 0 duloxetine 60 mg capsule,delayed release(DR/EC) 60 mg PO BID RF: 0 lidocaine [Lidoderm] 5 % Adhesive Patch,Medicated 1 patch TOPICAL DAILY RF: 0 polyethylene glycol 3350 17 gram/dose Powder 17 g PO DAILY PRN (Reason: Constipation) RF: 0 cyclobenzaprine 5 mg tablet 5 mg PO TID PRN (Reason: muscle spasm) Qty: 10 RF: 0 silver sulfadiazine [SSD] 1 % cream 1 applic TOPICAL TID RF: 0 lorazepam 0.5 mg tablet 0.5 mg PO TID PRN (Reason: Anxiety) RF: 0 doxycycline hyclate 100 mg tablet 100 mg PO BID 10 Days Qty: 20 RF: 0 citalopram 20 MG tablet 20 mg PO DAILY RF: 0 glimepiride 1 mg tablet 1 mg PO DAILY RF: 0 Referrals: [facility] [Provider Group] Jim Quintana MD [Primary Care Provider] -
== END 2018-12-19 18:26 | disposition home or self-care (01) ==
PROVIDERS: Emergency Provider Nurse Practitioner Family; Family Provider Family Medicine; PCP Family Medicine
DX: M54.2 Cervicalgia (principal); M25.511 Pain in right shoulder; Z91.81 History of falling
CPT/HCPCS: 72040; 73030; 96372; 99282; 99283; J1885

== ENCOUNTER 2018-12-24 23:20 | Emergency (ER) | payer MEDICARE, SELFPAY ==
[2018-12-24 23:21] VITALS: BP 158/67; PULSE 86; RESP 16; TEMP 36.4; O2SAT 100; BMI 37.8
--- NOTE | 2018-12-24 23:34 | ED_ITS ---
HPI - Extremity Injury (Lower) General Chief Complaint: Extremity Injury, Lower Stated Complaint: Leg Pain Time Seen by Provider: 12/24/18 23:31 Source: patient Mode of arrival: EMS Limitations: no limitations History of Present Illness HPI Narrative: This is a 68-year-old male who comes to the emergency department with complaint of left lower extremity pain and swelling. Patient states that he has been wearing a Unna boot or antibiotic dressing that he had changed twice by home health in the last 24 hours because it felt increasingly tight. He states that continue to feel this way so he came in. He has noticed increased leakage from the lower extremity, he states clear. He has pain intermittently although he states this is chronic and he has not appreciated a rapid increase. He does not feel like the leg is decreasing we red or warm. He has these dressings on for several months intermittently both legs but currently the left is the 1 giving the most trouble. He states he is currently on oral antibiotic but does not know the name. He denies any fevers or chills, no chest pain or shortness of breath, no nausea, no vomiting no other new GI or urinary symptoms. He states he has had ultrasounds to evaluate for DVT in the last couple weeks. He states they are always negative. he is able to ambulate but he states usually for short distances and he spends majority of his type in a wheelchair but has a walker at home to get about occasionally. Has been on Lasix before but not regularly. He states he used to take narcotic pain medication but it was stopped about 3 months ago by his primary care because he hit his head and had been acting right since then. He states he had an MRI of his brain and was told that it was fine. Related Data Home Medications Medication Instructions Recorded Confirmed citalopram 20 mg PO DAILY 12/25/17 11/12/18 glimepiride 1 mg PO DAILY 03/22/18 11/12/18 doxazosin 4 mg PO BEDTIME 06/07/18 11/12/18 furosemide 60 mg PO DAILY 09/27/18 11/12/18 duloxetine 60 mg PO BID 09/28/18 11/12/18 lidocaine [Lidoderm] 1 patch TOPICAL DAILY 09/28/18 11/12/18 polyethylene glycol 3350 17 g PO DAILY PRN 09/28/18 11/12/18 lorazepam 0.5 mg PO TID PRN 11/12/18 11/12/18 silver sulfadiazine [SSD] 1 applic TOPICAL TID 11/12/18 11/12/18 Previous Rx's Medication Instructions Recorded acetaminophen 650 mg PO Q4HR PRN #100 tab 06/12/18 cyclobenzaprine 5 mg PO TID PRN #10 tab 11/10/18 lidocaine 1 patch TOP DAILY #30 each 12/19/18 Allergies Allergy/AdvReac Type Severity Reaction Status Date / Time latex Allergy Mild IRRITATION Verified 11/10/18 15:59 Sulfa (Sulfonamide AdvReac Mild N&V 1HOUR Verified 11/10/18 15:59 Antibiotics) AFTER RX, THINKS IT IS RELATED Review of Systems Review of Systems ROS Unobtainable: All systems reviewed & are unremarkable except as noted in HPI and below Patient History Medical History Alcoholism (Chronic) Anemia associated with chronic renal failure (Chronic) Chronic kidney disease, stage 4 (severe) (Chronic) Chronic pain (Chronic) Depression (Chronic) Diabetes type 2, controlled (Chronic) Duodenal ulcer (Acute) GI bleed (Resolved) Gout, arthropathy (Chronic) History of cervical fracture (Resolved) Hyperparathyroidism (Chronic) Hypertension (Chronic) Left leg pain (Chronic) Symptomatic anemia (Chronic) Surgical History H/O cervical spine surgery (Acute) History of colectomy (Resolved) Social History household members: friend(s) and other Smoking Status: Former smoker alcohol intake: current alcohol intake frequency: 3 or more drinks per day Alcohol type: beer Substance Use Type: does not use Exam Narrative Exam Narrative: GENERAL: Alert and oriented x three, obese male in mild distress. HEENT: Head normocephalic, atraumatic, EOMI, pupils reactive, face symmetric, moist mucous membranes NECK: Supple, full range of motion CARDIOVASCULAR: Regular rate and rhythm without murmurs, rubs or gallops. RESPIRATORY: Breath sounds equal bilaterally, no wheezes rales or rhonchi. ABDOMEN: Soft, nontender. Normoactive bowel sounds all 4 quadrants. No guarding or rebound, rigidity, no mass : No CVA tenderness EXTREMITIES: Normal range of motion, no clubbing. Patient has bilateral lower extremity edema. patient has some erythema with slight weepage. Neurovascularly intact. Cap refill less than 2 seconds all five toes, 2+ pulse. Normal sensation in foot. NEUROLOGICAL: Cranial nerves II through XII grossly intact. Moving all extremities SKIN: Warm, dry, no petechiae, left leg is mildly erythematous extending from ankle to knee. Skin is slightly weeping. Patient has several open wounds the largest of which is 2x3cm and approx 1/2 cm in depth, patient was two small wounds that are about 1.5cm in size. No purulent drainage, no increase in erythema in surrounding sites at the wounds. Patient states this is the typical state of his leg. Initial Vital Signs Initial Vital Signs: Vital Signs Temperature 97.6 F 12/24/18 23:21 Pulse Rate 86 12/24/18 23:21 Respiratory Rate 16 12/24/18 23:21 Blood Pressure 158/67 H 12/24/18 23:21 Pulse Oximetry 100 12/24/18 23:21 Course Orders Ordered: ED Orders 12/24/18 23:50 B Type Natriuretic Peptide Stat Basic Metabolic Panel Stat Complete Blood Count AUTO DIFF Stat Procalcitonin Stat 12/25/18 23:31 US periph venous low extrem lt Stat Discontinued Medications Morphine Sulfate (Morphine) 4 mg IV NOW ONE Stop: 12/24/18 23:34 Last Admin: 12/24/18 23:54 Dose: 4 mg Documented by: DARCIE Vital Signs Vital signs: Vital Signs - 8 hr 12/24/18 23:21 12/25/18 00:53 Temperature 97.6 F Pulse Rate 86 84 Respiratory Rate 16 22 Blood Pressure 158/67 H 158/96 H Pulse Oximetry 100 96 MDM - Extremity Injury (Lower) Lab Data Attestation: I reviewed the patient's lab results. Result diagrams: 12/24/18 23:50 12/24/18 23:50 Labs: Lab Results 12/24/18 12/24/18 12/24/18 Range/Units 23:50 23:50 23:50 WBC 12.2 H (4.5-11.0) X10^3/uL RBC 2.85 L (4.5-5.9) X10^6/uL Hgb 8.5 L (13.5-17.5) g/dL Hct 26.3 L (41-53) % MCV 92.2 (80-100) fL MCH 29.9 (26-34) PG MCHC 32.4 (30-36) % RDW 15.4 H (11.6-14.8) % Plt Count 287 (150-400) X10^3/uL Neut % (Auto) 75.9 H (50-75) % Lymph % (Auto) 12.1 L (25-40) % [place] % (Auto) 8.4 (3-14) % Eos % (Auto) 3.2 (2-4) % Baso % (Auto) 0.4 (0-2) % Neut # (Auto) 9300 H (8430-4950) /uL Lymph # (Auto) 1500 (2675-8355) /uL [place] # (Auto) 1000 H (0-900) /uL Eos # (Auto) 400 (0-450) /uL Baso # (Auto) 100 (0-100) /uL Sodium 138 (137-145) mmol/L Potassium 4.5 (3.4-5.1) mmol/L Chloride 107 (98-107) mmol/L Carbon Dioxide 25 (22-32) mmol/L BUN 44 H (9-20) mg/dL Creatinine 2.20 H (0.66-1.25) mg/dL Estimated GFR 30.0 L (>60) mL/min BUN/Creatinine Ratio 20.0 (6-22) Glucose 180 H (80-110) mg/dL Calcium 8.9 (8.4-10.2) mg/dL B-Natriuretic Peptide (<100) Procalcitonin 0.16 (<0.5) ng/mL 12/24/18 Range/Units 23:50 WBC (4.5-11.0) X10^3/uL RBC (4.5-5.9) X10^6/uL Hgb (13.5-17.5) g/dL Hct (41-53) % MCV (80-100) fL MCH (26-34) PG MCHC (30-36) % RDW (11.6-14.8) % Plt Count (150-400) X10^3/uL Neut % (Auto) (50-75) % Lymph % (Auto) (25-40) % [place] % (Auto) (3-14) % Eos % (Auto) (2-4) % Baso % (Auto) (0-2) % Neut # (Auto) (0734-4553) /uL Lymph # (Auto) (9013-2690) /uL [place] # (Auto) (0-900) /uL Eos # (Auto) (0-450) /uL Baso # (Auto) (0-100) /uL Sodium (137-145) mmol/L Potassium (3.4-5.1) mmol/L Chloride (98-107) mmol/L Carbon Dioxide (22-32) mmol/L BUN (9-20) mg/dL Creatinine (0.66-1.25) mg/dL Estimated GFR (>60) mL/min BUN/Creatinine Ratio (6-22) Glucose (80-110) mg/dL Calcium (8.4-10.2) mg/dL B-Natriuretic Peptide < 100 (<100) Procalcitonin (<0.5) ng/mL Imaging Data Venous US: Radiologist's impression: prelim is negative for dvt. Patient has an enlarged lymph node that is 5.2cm x 2.9cm left inguinal lymph node. [facility] Narrative Medical decision making narrative: Patient has some redness some sores on his lower extremity but he states this is not increased from his norm. There is serosanguineous drainage but does not appear to be purulent. Patient would like to return home at this time we discussed that his renal function is slightly elevated from his baseline and does need follow-up. Rest of his lab work does not show major abnormalities from a normal baseline. Patient's white count is 12.2. Procalcitonin is negative. Patient is feeling better. Patient lower extremity was rebandaged and he was asked to contact his home health care to have his leg rebandaged with unaboot. Patient states he is on antibiotics currently and will continue, also expressed understanding that he needs follow up for todays findings. Discharge Plan Departure Patient Disposition: Home Clinical Impression: Left leg pain, Enlarged lymph node, Chronic wound of extremity Discharge Date/Time: 12/25/18 00:52 Instructions: DI for Leg Pain Activity Restrictions/Additional Instructions: Follow up with your physician in the next 2-3 days. You have your renal func tion rechecked is slightly elevated today although close to your baseline. Continue home medications as prescribed. Return to the ER for fevers good 100.4 F, rapidly worsening swelling, rapidly changing pain, blue or pale leg, passing out, persistent vomiting, new chest pain or shortness of breath or other new or concerning symptoms. Prescriptions: No Action doxazosin 4 mg Tablet 4 mg PO BEDTIME RF: 0 acetaminophen 325 mg Tablet 650 mg PO Q4HR PRN (Reason: As Needed For Fever/Mild Pain) Qty: 100 RF: 0 furosemide 40 mg Tablet 60 mg PO DAILY RF: 0 duloxetine 60 mg capsule,delayed release(DR/EC) 60 mg PO BID RF: 0 lidocaine [Lidoderm] 5 % Adhesive Patch,Medicated 1 patch TOPICAL DAILY RF: 0 polyethylene glycol 3350 17 gram/dose Powder 17 g PO DAILY PRN (Reason: Constipation) RF: 0 cyclobenzaprine 5 mg tablet 5 mg PO TID PRN (Reason: muscle spasm) Qty: 10 RF: 0 silver sulfadiazine [SSD] 1 % cream 1 applic TOPICAL TID RF: 0 lorazepam 0.5 mg tablet 0.5 mg PO TID PRN (Reason: Anxiety) RF: 0 citalopram 20 MG tablet 20 mg PO DAILY RF: 0 glimepiride 1 mg tablet 1 mg PO DAILY RF: 0 lidocaine 5 % adhesive patch,medicated 1 patch TOP DAILY Qty: 30 RF: 0 Referrals: Jim Quintana MD [Primary Care Provider] -
[2018-12-24 23:54] LABS: Add Manual Diff / Slide Review NO; Basophils Absolute Auto 100 /uL (0-100); Basophils Percent Auto 0.4 % (0-2); Eosinophils Absolute Auto 400 /uL (0-450); Eosinophils Percent Auto 3.2 % (2-4); Hematocrit 26.3 % (41-53); Hemoglobin 8.5 g/dL (13.5-17.5); Lymphocytes Absolute Auto 1500 /uL (1100-4500); Lymphocytes Percent Auto 12.1 % (25-40); Mean Corpuscular HGB Conc 32.4 % (30-36); Mean Corpuscular Hemoglobin 29.9 PG (26-34); Mean Corpuscular Volume 92.2 fL (80-100); Monocytes Absolute Auto 1000 /uL (0-900); Monocytes Percent Auto 8.4 % (3-14); Neutrophils Absolute Auto 9300 /uL (1500-7000); Neutrophils Percent Auto 75.9 % (50-75); Platelet Count 287 X10^3/uL (150-400); Red Blood Cell Count 2.85 X10^6/uL (4.5-5.9); Red Cell Distribution Width 15.4 % (11.6-14.8); White Blood Cell Count 12.2 X10^3/uL (4.5-11.0)
[2018-12-24] MEDS: MORPHINE 4 MG/ML INJ IV (23:54)
[2018-12-25 00:04] LABS: Blood Urea Nitrogen 44 mg/dL (9-20); Calcium 8.9 mg/dL (8.4-10.2); Carbon Dioxide 25 mmol/L (22-32); Chloride 107 mmol/L (98-107); Glucose 180 mg/dL (80-110); HEMOLYSIS < 15 (0-50); Potassium 4.5 mmol/L (3.4-5.1); Sodium 138 mmol/L (137-145)
[2018-12-25 00:14] LABS: B Type Natriuretic Peptide < 100 (<100)
[2018-12-25 00:18] LABS: Procalcitonin 0.16 ng/mL (<0.5)
[2018-12-25 00:53] VITALS: BP 158/96; PULSE 84; RESP 22; O2SAT 96
--- NOTE | 2018-12-25 23:31 | DI.US.S_ITS ---
PROCEDURE: US PERIPH VENOUS LOW EXTREM LT INDICATIONS: LEFT LEG SWELLING, PAIN, HISTORY INFECTION, RULE OUT DVT TECHNIQUE: Real-time imaging, as well as color and pulse Doppler interrogation, were performed of the lower extremity deep veins from the inguinal ligament to the popliteal fossa. COMPARISON: None. FINDINGS: The common femoral, femoral and popliteal veins are normally compressible, and free of intraluminal thrombus. Color and pulse Doppler demonstrate normal phasic intraluminal flow. There is normal augmentation response to distal compression maneuver. Prominent lymph node is seen in left groin measures 5.2 x 1.3 x 2.9 cm in size. IMPRESSION: 1. No evidence of DVT in visualized left lower extremity veins. 2. Prominent 5.2 x 2.9 cm lymph node in left inguinal region. Dictated by: Ervin Love M.D. on 12/25/2018 at 8:13 Approved by: Ervin Love M.D. on 12/25/2018 at 8:14
== END 2018-12-25 00:52 | disposition home or self-care (01) ==
LOC: ED 12-25 00:47
PROVIDERS: Emergency Provider Emergency Medicine; Family Provider Family Medicine; PCP Family Medicine
DX: M79.605 Pain in left leg (principal); R59.9 Enlarged lymph nodes, unspecified
CPT/HCPCS: 36415; 80048; 83880; 84145; 85025; 93971; 96374; 99283; 99284; J2270

== ENCOUNTER → 2018-12-28 13:52 | Outpatient (CLI) | payer MEDICARE, MEDICAID, SELFPAY | PROVIDERS: Family Provider Family Medicine; PCP Family Medicine; Visit Provider Family Medicine | DX: I87.2 Venous insufficiency (chronic) (peripheral) (principal); E11.622 Type 2 diabetes mellitus with other skin ulcer; R60.0 Localized edema; I73.9 Peripheral vascular disease, unspecified; L97.821 Non-pressure chronic ulcer of other part of left lower leg limited to breakdown of skin | CPT/HCPCS: 11042; 29581; 87070; 87075; 87077; 87147; 87185; 87186; 87205 ==

== ENCOUNTER → 2019-01-04 13:28 | Outpatient (CLI) | payer MEDICARE, SELFPAY | PROVIDERS: Family Provider Family Medicine; PCP Family Medicine; Visit Provider Family Medicine | DX: I87.2 Venous insufficiency (chronic) (peripheral) (principal); E11.622 Type 2 diabetes mellitus with other skin ulcer; L97.828 Non-pressure chronic ulcer of other part of left lower leg with other specified severity; R60.0 Localized edema; I73.9 Peripheral vascular disease, unspecified; N18.3 Chronic kidney disease, stage 3 (moderate) | CPT/HCPCS: 11042 ==

== ENCOUNTER → 2019-01-11 09:01 | Outpatient (CLI) | payer MEDICARE, MEDICAID, SELFPAY | PROVIDERS: Family Provider Family Medicine; PCP Family Medicine; Visit Provider Family Medicine | DX: I87.2 Venous insufficiency (chronic) (peripheral) (principal); L97.821 Non-pressure chronic ulcer of other part of left lower leg limited to breakdown of skin; L97.811 Non-pressure chronic ulcer of other part of right lower leg limited to breakdown of skin; I73.9 Peripheral vascular disease, unspecified; N18.3 Chronic kidney disease, stage 3 (moderate); R60.0 Localized edema | CPT/HCPCS: 29581; 99214 ==

== ENCOUNTER → 2019-01-18 13:02 | Outpatient (CLI) | payer MEDICARE, MEDICAID, SELFPAY | PROVIDERS: Family Provider Family Medicine; PCP Family Medicine; Visit Provider Family Medicine | DX: I87.2 Venous insufficiency (chronic) (peripheral) (principal); I73.9 Peripheral vascular disease, unspecified; N18.3 Chronic kidney disease, stage 3 (moderate); L97.822 Non-pressure chronic ulcer of other part of left lower leg with fat layer exposed; L97.812 Non-pressure chronic ulcer of other part of right lower leg with fat layer exposed | CPT/HCPCS: 11042; 11045; 29581 ==

== ENCOUNTER → 2019-01-18 14:16 | Outpatient (CLI) | payer MEDICARE, SELFPAY ==
[2019-01-18 15:36] LABS: Blood Urea Nitrogen 38 mg/dL (9-20); Calcium 8.7 mg/dL (8.4-10.2); Carbon Dioxide 25 mmol/L (22-32); Chloride 106 mmol/L (98-107); Estimated Glomerular Filt Rate 33.5 mL/min (>60); Glucose 164 mg/dL (80-110); HEMOLYSIS < 15 (0-50); Potassium 4.7 mmol/L (3.4-5.1); Sodium 140 mmol/L (137-145)
== END ==
PROVIDERS: Family Provider Family Medicine; PCP Family Medicine; Visit Provider Family Medicine
DX: N18.3 Chronic kidney disease, stage 3 (moderate) (principal); Z79.899 Other long term (current) drug therapy
CPT/HCPCS: 36415; 80048

== ENCOUNTER 2019-01-22 21:03 | Inpatient (IN) | payer MEDICARE, MEDICAID, SELFPAY ==
[2019-01-22 21:19] VITALS: BP 159/52; PULSE 99; RESP 15; TEMP 37; O2SAT 98; BMI 38.4
--- NOTE | 2019-01-22 21:21 | ED_ITS ---
HPI - Male Genitourinary General Chief complaint: Urogenital-Male Stated complaint: SOB Time Seen by Provider: 01/22/19 21:04 Source: patient and EMS Mode of arrival: EMS Limitations: no limitations History of Present Illness HPI Narrative: 68-year-old male former smoker with extensive medical history including chronic kidney disease and significant alcohol history presents with a chief complaint of a sudden onset shortness of breath, fatigue and diaphoresis which seemed to be worse upon sitting up. He denies any pain or vomiting. He continues to be a bit dizzy and feeling unwell. He has had no fever or shaking chills. He does admit to some black stools over the past few days. He takes no anticoagulation. Though he has an extensive alcohol history he denies any diagnosis of cirrhosis, history of bright red blood per vomit, diagnosis of esophageal varices. Onset (ago): hour(s) Duration: constant Severity: moderate Associated symptoms: Reports nausea/vomiting Related Data Home Medications Medication Instructions Recorded Confirmed citalopram 20 mg PO DAILY 12/25/17 11/12/18 glimepiride 1 mg PO DAILY 03/22/18 11/12/18 doxazosin 4 mg PO BEDTIME 06/07/18 11/12/18 furosemide 60 mg PO DAILY 09/27/18 11/12/18 duloxetine 60 mg PO BID 09/28/18 11/12/18 lidocaine [Lidoderm] 1 patch TOPICAL DAILY 09/28/18 11/12/18 polyethylene glycol 3350 17 g PO DAILY PRN 09/28/18 11/12/18 lorazepam 0.5 mg PO TID PRN 11/12/18 11/12/18 silver sulfadiazine [SSD] 1 applic TOPICAL TID 11/12/18 11/12/18 Previous Rx's Medication Instructions Recorded acetaminophen 650 mg PO Q4HR PRN #100 tab 06/12/18 cyclobenzaprine 5 mg PO TID PRN #10 tab 11/10/18 lidocaine 1 patch TOP DAILY #30 each 12/19/18 Allergies Allergy/AdvReac Type Severity Reaction Status Date / Time latex Allergy Mild IRRITATION Verified 01/22/19 21:19 Sulfa (Sulfonamide AdvReac Mild N&V 1HOUR Verified 01/22/19 21:19 Antibiotics) AFTER RX, THINKS IT IS RELATED Review of Systems Constitutional Constitutional: Denies chills, Reports fatigue, Denies fever(s), Denies frequent falls, Denies lethargy and Reports weakness Eyes Eyes: Denies change in vision, Denies eye discharge, Denies irritation and Denies loss of vision ENT Ears, Nose, Mouth, and Throat: Denies change in voice, Denies dizziness, Denies neck pain, Denies sore throat and Denies throat swelling Cardiovascular Cardiovascular: Denies chest pain, Denies irregular heart rhythm, Denies lightheadedness, Denies palpitations, Reports dyspnea, Reports dyspnea on exertion and Denies orthopnea Respiratory Respiratory: Denies cough, Reports dyspnea, Reports dyspnea on exertion and Denies wheezing Gastrointestinal Gastrointestinal: Denies abdominal pain, Reports melena, Denies change in bowel habits, Denies diarrhea, Denies nausea and Denies vomiting Genitourinary Genitourinary: Denies hematuria, Denies flank pain, Denies urinary incontinence and Denies urinary urgency Musculoskeletal Musculoskeletal: Denies back pain, Denies muscle weakness, Denies neck pain, Denies numbness and Denies tingling Integumentary/Breasts Skin/Breast: Denies pruritus, Denies erythema, Denies rash and Denies wounds Comments: Pale and sweaty Neurologic Neurologic: Denies behavioral changes, Denies confusion, Denies dizziness, Denies frequent falls, Denies loss of vision, Denies numbness, Denies tingling and Reports weakness Psychiatric Psychiatric: Denies anxiety, Denies behavioral changes, Denies confusion, Denies depression, Denies homicidal ideation and Denies suicidal ideation Endocrine Endocrine: Reports fatigue, Denies flushing and Denies palpitations Hematologic/Lymphatic Hematologic/Lymphatic: Denies easy bruising Allergic/Immunologic Allergic/Immunologic: Denies urticaria, Denies throat swelling and Denies wheezing Patient History Medical History Alcoholism (Chronic) Anemia associated with chronic renal failure (Chronic) Chronic kidney disease, stage 4 (severe) (Chronic) Chronic pain (Chronic) Depression (Chronic) Diabetes type 2, controlled (Chronic) Duodenal ulcer (Acute) GI bleed (Resolved) Gout, arthropathy (Chronic) History of cervical fracture (Resolved) Hyperparathyroidism (Chronic) Hypertension (Chronic) Left leg pain (Chronic) Symptomatic anemia (Chronic) Surgical History H/O cervical spine surgery (Acute) History of colectomy (Resolved) Social History household members: friend(s) and other Smoking Status: Former smoker alcohol intake: current alcohol intake frequency: 3 or more drinks per day Alcohol type: beer Substance Use Type: does not use Exam Narrative Exam Narrative: GENERAL: [68] year old patient appears stated age. Obviously, chronically ill and quite pale, feeling unwell. HEAD: Atraumatic. Normocephalic. EYES: Pupils equal round and reactive. Extraocular motions intact. No scleral icterus. No injection or drainage. Pale conjunctiva ENT: Nose without bleeding, purulent drainage. Throat without erythema, tonsillar hypertrophy or exudate. Airway patent. NECK: Trachea midline. Non tender CARDIOVASCULAR: Regular rate and rhythm without murmurs, gallops, or rubs. RESPIRATORY: Clear to auscultation. Breath sounds equal bilaterally. No wheezes, rales, or rhonchi. GASTROINTESTINAL: Abdomen soft, non-tender, nondistended. Rectal exam shows heme-positive EXTREMITIES: No edema or joint tenderness. BACK: Nontender without deformity or crepitance. No flank tenderness. NEURO: AOx3. SKIN: No rash or erythema of visible areas Initial Vital Signs Initial Vital Signs: Vital Signs Temperature 98.6 F 01/22/19 21:19 Pulse Rate 99 H 01/22/19 21:19 Respiratory Rate 15 01/22/19 21:19 Blood Pressure 159/52 H 01/22/19 21:19 Pulse Oximetry 98 01/22/19 21:19 Course Orders Ordered: ED Orders 01/22/19 21:12 Complete Blood Count AUTO DIFF Stat Comprehensive Metabolic Panel Stat Lipase Stat Packed Cells Stat Prothrombin Time INR Stat Troponin & CK Cardiac Panel Stat Type and Screen Stat 01/22/19 21:47 XR acute abdomen series Stat 01/22/19 22:37 US abdomen limited Stat Sodium Chloride (Normal Saline 0.9%) 1,000 mls @ 150 mls/hr IV CONT DAVID Last Infusion: 01/23/19 00:30 Dose: 0 mls/hr Documented by: Admin: 01/22/19 22:47 Dose: 150 mls/hr Documented by: YELITZA Octreotide Acetate 500 mcg/ (Sodium Chloride) 101 mls @ 5.05 mls/hr IV CONT DAVID; Protocol Last Admin: 01/22/19 23:22 Dose: Not Given Documented by: YELITZA Pantoprazole Sodium 80 mg/ (Sodium Chloride) 100 mls @ 10 mls/hr IV CONT DAVID Last Admin: 01/22/19 23:22 Dose: 8 mg/hr, 10 mls/hr Documented by: YELITZA Discontinued Medications Hydromorphone HCl (Dilaudid) 0.5 mg IV NOW ONE Stop: 01/22/19 22:03 Last Admin: 01/22/19 22:47 Dose: 0.5 mg Documented by: YELITZA Octreotide Acetate (Sandostatin) 50 mcg IV NOW ONE Stop: 01/22/19 22:32 Last Admin: 01/22/19 23:33 Dose: 50 mcg Documented by: YELITZA Consultations Consultation #1: General surgery consulted and given lack of varices, cirrhosis this would seem to be a routine upper GI bleed and patient is appropriate for admission here, he is happy to be involved in consult will scope the patient but asks patient be admitted to medical team Consultation #2: Dr. Schaefer happy to accept this patient on his service. Vital Signs Vital signs: Vital Signs - 8 hr 01/22/19 21:19 01/22/19 22:52 01/22/19 23:09 Temperature 98.6 F 97.6 F 98.1 F Pulse Rate 99 H 94 H 89 Respiratory Rate 15 17 16 Blood Pressure 159/52 H 134/74 149/61 H Pulse Oximetry 98 MDM - Male Genitourinary Lab Data Result diagrams: 01/22/19 21:12 01/22/19 21:12 Labs: Lab Results 01/22/19 01/22/19 01/22/19 Range/Units 21:12 21:12 21:12 WBC 12.7 H (4.5-11.0) X10^3/uL RBC 1.59 L (4.5-5.9) X10^6/uL Hgb 4.8 L* (13.5-17.5) g/dL Hct 14.7 L* (41-53) % MCV 92.7 (80-100) fL MCH 30.2 (26-34) PG MCHC 32.5 (30-36) % RDW 16.2 H (11.6-14.8) % Plt Count 280 (150-400) X10^3/uL Neut % (Auto) 83.4 H (50-75) % Lymph % (Auto) 9.2 L (25-40) % [place] % (Auto) 5.7 (3-14) % Eos % (Auto) 1.3 L (2-4) % Baso % (Auto) 0.4 (0-2) % Neut # (Auto) 78736 H (7650-5040) /uL Lymph # (Auto) 1200 (3738-5370) /uL [place] # (Auto) 700 (0-900) /uL Eos # (Auto) 200 (0-450) /uL Baso # (Auto) 0 (0-100) /uL PT 11.7 (10.1-12.7) SECONDS INR 1.0 (0.9-1.3) Sodium 137 (137-145) mmol/L Potassium 4.7 (3.4-5.1) mmol/L Chloride 106 (98-107) mmol/L Carbon Dioxide 20 L (22-32) mmol/L BUN 82 H (9-20) mg/dL Creatinine 2.50 H (0.66-1.25) mg/dL Estimated GFR 25.9 L (>60) mL/min BUN/Creatinine Ratio 32.8 H (6-22) Glucose 270 H D (80-110) mg/dL Calcium 8.4 (8.4-10.2) mg/dL Total Bilirubin 0.1 L (0.2-1.3) mg/dL AST 13 L (17-59) IU/L ALT 8 (<50) IU/L Alkaline Phosphatase 69 (38-126) U/L Total Creatine Kinase 42 L (55-170) U/L CK-MB (CK-2) TNP CK-MB (CK-2) Rel Index TNP Troponin I < 0.012 (0.01-0.034) ng/mL Total Protein 6.0 L (6.3-8.2) g/dL Albumin 3.3 L (3.5-5.0) g/dL Globulin 2.7 (1.7-4.1) g/dL Albumin/Globulin Ratio 1.2 (1.0-2.8) Lipase 56 (23-300) U/L Blood Type Antibody Screen Crossmatch 01/22/19 Range/Units 21:12 WBC (4.5-11.0) X10^3/uL RBC (4.5-5.9) X10^6/uL Hgb (13.5-17.5) g/dL Hct (41-53) % MCV (80-100) fL MCH (26-34) PG MCHC (30-36) % RDW (11.6-14.8) % Plt Count (150-400) X10^3/uL Neut % (Auto) (50-75) % Lymph % (Auto) (25-40) % [place] % (Auto) (3-14) % Eos % (Auto) (2-4) % Baso % (Auto) (0-2) % Neut # (Auto) (9531-6344) /uL Lymph # (Auto) (9072-4653) /uL [place] # (Auto) (0-900) /uL Eos # (Auto) (0-450) /uL Baso # (Auto) (0-100) /uL PT (10.1-12.7) SECONDS INR (0.9-1.3) Sodium (137-145) mmol/L Potassium (3.4-5.1) mmol/L Chloride (98-107) mmol/L Carbon Dioxide (22-32) mmol/L BUN (9-20) mg/dL Creatinine (0.66-1.25) mg/dL Estimated GFR (>60) mL/min BUN/Creatinine Ratio (6-22) Glucose (80-110) mg/dL Calcium (8.4-10.2) mg/dL Total Bilirubin (0.2-1.3) mg/dL AST (17-59) IU/L ALT (<50) IU/L Alkaline Phosphatase (38-126) U/L Total Creatine Kinase (55-170) U/L CK-MB (CK-2) CK-MB (CK-2) Rel Index Troponin I (0.01-0.034) ng/mL Total Protein (6.3-8.2) g/dL Albumin (3.5-5.0) g/dL Globulin (1.7-4.1) g/dL Albumin/Globulin Ratio (1.0-2.8) Lipase (23-300) U/L Blood Type O Positive Antibody Screen Negative Crossmatch See Detail MDM Narrative Medical decision making narrative: Patient with extensive medical history presents with signs of anemia, confirmed on blood draw. Melena an elevated BUN would suggest an upper source. Ultrasound shows a non cirrhotic liver, INR and platelets are within normal level which was suggest varices are unlikely. Patient will be admitted for stabilization of his condition and further evalua tion. Patient understands the plan and is in full agreement. Critical Care Time Critical Care Time Critical Care Time: Yes Total Critical Care Time: 30 Attestation: The high probability of a clinically significant, sudden or life threatening deterioration of the [CV] system(s) required my full and direct attention, intervention and personal management. The aggregate critical care time was [30] minutes. This time is in addition to time spent performing reported procedures but includes the following: [x] Data Review and interpretation [x] Patient assessment and monitoring of vital signs [x] Documentation [x] Medication orders and management Discharge Plan Departure Patient Disposition: Admitted As Inpatient Clinical Impression: Acute upper gastrointestinal bleeding Discharge Date/Time: 01/23/19 00:56 Admit Date/Time: 01/22/19 23:29 Admit Provider: Luke Schaefer
--- NOTE | 2019-01-22 21:21 | PC.NURSE ---
Pt arrived via EMS c/o UTI sx. Denies urinary burning or frequency. Myra had one in the past and i feel the same. appears pale. denies nausea. vomited with EMS although states he ate coleslaw today with meals on wheels and he was not wearing his teeth and did not chew food appropriately and that is why he vomited. Legs appears swollen--reports baseline. Lungs clear, Abd SNT. incontinent of urine. reports unable to give RN sample of urine at this time. Denies CP/SOB. denies dizziness. labs drawn via IV placed by EMS. blood culture x 1 and lactate drawn. MD in to see and awaiting further orders.
--- NOTE | 2019-01-22 21:47 | DI.RAD.S_ITS ---
PROCEDURE: XR ACUTE ABDOMEN SERIES INDICATIONS: Abdominal pain, SOB TECHNIQUE: One view chest and two views of the abdomen were acquired. COMPARISON: None. FINDINGS: Surgical changes and devices: Cervicothoracic and thoracolumbar spine fixation hardware. Chest: Lungs are clear. Heart size is normal. No pleural effusions. No pneumoperitoneum. Abdomen: Bowel gas pattern is normal. No suspicious calcifications. Visualized solid organ contours appear normal. Bones: No suspicious bony lesions. IMPRESSION: No radiographic evidence of obstruction. If there is continued clinical concern for bowel obstruction, then CT scan of the abdomen/pelvis should be considered for further evaluation. Dictated by: Bibiana Jones MD, PhD on 01/23/2019 at 8:24 Approved by: Bibiana Jones MD, PhD on 01/23/2019 at 8:25
[2019-01-22 21:56] LABS: Prothrombin Time 11.7 SECONDS (10.1-12.7)
[2019-01-22 21:58] LABS: Mean Corpuscular HGB Conc 32.5 % (30-36); White Blood Cell Count 12.7 X10^3/uL (4.5-11.0)
[2019-01-22 22:01] LABS: Alanine Aminotransferase 8 IU/L (<50); Albumin 3.3 g/dL (3.5-5.0); Albumin Globulin Ratio 1.2 (1.0-2.8); Alkaline Phosphatase 69 U/L (38-126); Aspartate Aminotransferase 13 IU/L (17-59); BUN Creatinine Ratio 32.8 (6-22); Bilirubin Total 0.1 mg/dL (0.2-1.3); Blood Urea Nitrogen 82 mg/dL (9-20); Calcium 8.4 mg/dL (8.4-10.2); Carbon Dioxide 20 mmol/L (22-32); Chloride 106 mmol/L (98-107); Creatine Kinase 42 U/L (55-170); Estimated Glomerular Filt Rate 25.9 mL/min (>60); Globulin 2.7 g/dL (1.7-4.1); Glucose 270 mg/dL (80-110); HEMOLYSIS < 15 (0-50); Lipase 56 U/L (23-300); Mean Corpuscular Hemoglobin 30.2 PG (26-34); Mean Corpuscular Volume 92.7 fL (80-100); Platelet Count 280 X10^3/uL (150-400); Potassium 4.7 mmol/L (3.4-5.1); Red Blood Cell Count 1.59 X10^6/uL (4.5-5.9); Red Cell Distribution Width 16.2 % (11.6-14.8); Sodium 137 mmol/L (137-145)
[2019-01-22 22:02] LABS: Add Manual Diff / Slide Review NO; Basophils Absolute Auto 0 /uL (0-100); Basophils Percent Auto 0.4 % (0-2); Eosinophils Absolute Auto 200 /uL (0-450); Eosinophils Percent Auto 1.3 % (2-4); Lymphocytes Absolute Auto 1200 /uL (1100-4500); Lymphocytes Percent Auto 9.2 % (25-40); Monocytes Absolute Auto 700 /uL (0-900); Monocytes Percent Auto 5.7 % (3-14); Neutrophils Absolute Auto 10600 /uL (1500-7000); Neutrophils Percent Auto 83.4 % (50-75)
[2019-01-22 22:04] LABS: Hematocrit 14.7 % (41-53); Hemoglobin 4.8 g/dL (13.5-17.5)
[2019-01-22 22:12] LABS: Troponin I < 0.012 ng/mL (0.01-0.034)
--- NOTE | 2019-01-22 22:14 | PC.NURSE ---
Addendum entered by Shruti Shirley R.N. 01/22/19 22:19: Ammended for hemoglobin 4.8 Original Note: Dr Reynoso took call from lab for critical lab value of Hemoglobin of 4. Order placed for transfusion. awaiting blood from blood bank
--- NOTE | 2019-01-22 22:37 | DI.US.S_ITS ---
PROCEDURE: US ABDOMEN LIMITED INDICATIONS: ETOH ABUSE; POSSIBLE CIRRHOSIS TECHNIQUE: Real-time focused scanning was performed of the abdomen, with image documentation. COMPARISON: None. FINDINGS: Liver is normal in size measuring 18.7 cm in long axis. Liver is diffusely echogenic which is typically related to diffuse fatty infiltration, however finding is nonspecific and other etiologies including hepatic cirrhosis can produce a similar appearance. No hepatic margin nodularity. Main portal vein is patent with hepatopedal flow. IMPRESSION: Echogenic liver. Finding typically represents fatty infiltration; however, finding is nonspecific and correlation with clinical and laboratory findings is recommended to exclude other etiologies including hepatic cirrhosis. Dictated by: Bibiana Jones MD, PhD on 01/23/2019 at 7:52 Approved by: Bibiana Jones MD, PhD on 01/23/2019 at 7:54
[2019-01-22] MEDS: SODIUM CHLORIDE 0.9% 1,000 ML 150 ML IV (22:47)
[2019-01-22] MEDS: HYDROMORPHONE 0.5 MG INJ IV (22:47)
[2019-01-22 22:52] VITALS: BP 134/74; PULSE 94; RESP 17; TEMP 36.4
--- NOTE | 2019-01-22 23:00 | PC.NURSE ---
2255: vitals obtained, blood consent signed and placed in chart. Blood transfusing per order with double RN check.
[2019-01-22 23:09] VITALS: BP 149/61; PULSE 89; RESP 16; TEMP 36.7
[2019-01-22] MEDS: PANTOPRAZOLE 80 MG in SODIUM CHLORIDE 0.9% 100 ML 10 ML IV (23:22)
[2019-01-22] MEDS: OCTREOTIDE 100 MCG/ML VIAL 50 MCG IV (23:33)
--- NOTE | 2019-01-22 23:48 | PC.NURSE ---
Ocreotide gtt DC'd by Dr Reynoso. Protonix gtt infusing. Urine obtained and sent to lab. Blood continues to infuse. NAD. Will monitor.
[2019-01-23] VITALS (33 sets, daily range): BP systolic 120–180; BP diastolic 53–84; PULSE 80–108; RESP 13–25; TEMP 36.5–37.6; O2SAT 93–100; BMI 38.7
[2019-01-23] MEDS: PANTOPRAZOLE 80 MG in SODIUM CHLORIDE 0.9% 100 ML 10 ML IV (02:14)
[2019-01-23] MEDS: LORazepam 2 MG/ML INJ 0.5 MG IV (03:16)
[2019-01-23 03:29] LABS: Hematocrit 16.8 % (41-53); Hemoglobin 5.6 g/dL (13.5-17.5)
[2019-01-23] MEDS: ZOLPIDEM 5 MG TABLET PO (04:36)
[2019-01-23] MEDS: HYDROMORPHONE 2 MG INJ 1 MG IV (04:36)
--- NOTE | 2019-01-23 06:38 | PC.NURSE ---
Addendum entered by Soniya Carroll R.N. 01/23/19 06:49: 0530 Patient continues to be confused, agitated pulled out second PIV. Not able to restart at this time. Security called for safety pt. continues to pull off lines, clothing etc. Demands water. Dr. Reynoso came over to speak to patient in attempts to calm pt. with no affect. Pt intermittently falls asleep for 5 to 10 minute periods. Currently 1:1 sitter for safety. Will attempt to restart PIV when able. Addendum entered by Soniya Carroll R.N. 01/23/19 06:42: 0300 Pt beligerent, confused throwing items in room at staff. Complaining of not being able to have water. Dr. Schaefer notified of patient non compliance and behavior MD aware. Orders received. Pain meds given, ambien given per pt request for sleep. Pt given Ativan also for anxiety. Also discussed current H&H 07/19 post 2 units PRBC's now giving 2 more units. No active bleeding noted since admit. Surgical consult in AM. Original Note: NOC Shift: Pt admitted for acute GIB H&H 06/17 infusing PRBC's. VSS, SR on tele. Protonix gtt. NPO. Surgery consult in AM. Pt complaining of generalized pain, anxiety. Dr. Reynoso notified for admit orders. Orders given. ICU care.
--- NOTE | 2019-01-23 08:12 | P.CONS_ITS ---
History of Present Illness Consult details Date Patient Seen: 01/23/19 Time Patient Seen: 08:17 Chief complaint: SOB Narrative: This is a 68-year-old male with acute on chronic anemia admitted to the hospital with a GI bleed. He had significant shortness of breath and lightheadedness which is why he presented to the emergency department. He was found to have melanotic stool. No hemoptysis emesis bright red blood per rectum. Last colonoscopy 10 years ago and normal. Chronic anemia secondary to CKD 4, baseline hematocrit 30s was 17 on admission, no tachycardia or hypotension. He has a history of peptic ulcer disease although unable to provide much history, alcoholism, and recent heavy aspirin use since his narcotics have been significantly reduced. No history of variceal disease cirrhosis ascites, not on anticoagulants. FORMERLY [facility] Medical History Alcoholism (Chronic) Anemia associated with chronic renal failure (Chronic) Chronic kidney disease, stage 4 (severe) (Chronic) Chronic pain (Chronic) Depression (Chronic) Diabetes type 2, controlled (Chronic) Duodenal ulcer (Acute) GI bleed (Resolved) Gout, arthropathy (Chronic) History of cervical fracture (Resolved) Hyperparathyroidism (Chronic) Hypertension (Chronic) Left leg pain (Chronic) Symptomatic anemia (Chronic) Surgical History H/O cervical spine surgery (Acute) History of colectomy (Resolved) Social History household members: friend(s), caregiver and other Smoking Status: Former smoker alcohol intake: current Meds Home Medications and Allergies Home Medications Medication Instructions Recorded Confirmed Type citalopram 20 mg PO DAILY 12/25/17 11/12/18 History glimepiride 1 mg PO DAILY 03/22/18 11/12/18 History doxazosin 4 mg PO BEDTIME 06/07/18 11/12/18 History acetaminophen 650 mg PO Q4HR PRN #100 tab 06/12/18 11/12/18 Rx furosemide 60 mg PO DAILY 09/27/18 11/12/18 History duloxetine 60 mg PO BID 09/28/18 11/12/18 History lidocaine [Lidoderm] 1 patch TOPICAL DAILY 09/28/18 11/12/18 History polyethylene glycol 3350 17 g PO DAILY PRN 09/28/18 11/12/18 History cyclobenzaprine 5 mg PO TID PRN #10 tab 11/10/18 Rx lorazepam 0.5 mg PO TID PRN 11/12/18 11/12/18 History silver sulfadiazine [SSD] 1 applic TOPICAL TID 11/12/18 11/12/18 History lidocaine 1 patch TOP DAILY #30 each 12/19/18 Rx Allergies Allergy/AdvReac Type Severity Reaction Status Date / Time latex Allergy Mild IRRITATION Verified 01/22/19 21:19 Sulfa (Sulfonamide AdvReac Mild N&V 1HOUR Verified 01/22/19 21:19 Antibiotics) AFTER RX, THINKS IT IS RELATED Review of Systems Review of Systems ROS Unobtainable: unobtainable due to mental condition Exam Vital Signs (past 8 hours): - 01/23/19 00:18 01/23/19 00:28 01/23/19 00:43 Temperature 98.7 F 98.7 F 98.7 F Pulse Rate 86 84 88 Respiratory Rate 16 17 16 Blood Pressure 136/73 136/73 152/56 H Pulse Oximetry 01/23/19 00:49 01/23/19 01:00 01/23/19 03:04 Temperature 98.7 F 99.6 F 99.0 F Pulse Rate 80 84 90 Respiratory Rate 16 20 18 Blood Pressure 152/56 H 146/75 H 128/78 Pulse Oximetry 97 100 01/23/19 03:44 01/23/19 03:48 01/23/19 03:50 Temperature 98.8 F 98.8 F 98.4 F Pulse Rate 90 90 99 H Respiratory Rate 13 13 17 Blood Pressure 140/64 140/64 133/62 Pulse Oximetry 99 01/23/19 05:56 Temperature 98.5 F Pulse Rate 96 H Respiratory Rate 16 Blood Pressure 121/53 L Pulse Oximetry Oxygen Delivery Method Room Air Oxygen Flow Rate 0 Narrative Exam Narrative: General-no acute distress, obese male HEENT-moist mucous membranes, no scleral icterus Neck-supple, no lymphadenopathy Chest- non labored respirations, clear to auscultation bilaterally Cardiac-regular rate no peripheral edema Abdomen-soft, nontender, non distended Extremities-warm, well perfused Neurological-alert but confused, no focal deficits Objective Labs Result Diagrams: 01/23/19 03:05 01/22/19 21:12 Labs: Laboratory Results - last 24 hr 01/22/19 01/22/19 01/22/19 21:12 21:12 21:12 WBC 12.7 H RBC 1.59 L Hgb 4.8 L* Hct 14.7 L* MCV 92.7 MCH 30.2 MCHC 32.5 RDW 16.2 H Plt Count 280 Neut % (Auto) 83.4 H Lymph % (Auto) 9.2 L Williams % (Auto) 5.7 Eos % (Auto) 1.3 L Baso % (Auto) 0.4 Neut # (Auto) 00560 H Lymph # (Auto) 1200 Williams # (Auto) 700 Eos # (Auto) 200 Baso # (Auto) 0 PT 11.7 INR 1.0 Sodium 137 Potassium 4.7 Chloride 106 Carbon Dioxide 20 L BUN 82 H Creatinine 2.50 H Estimated GFR 25.9 L BUN/Creatinine Ratio 32.8 H Glucose 270 H D Calcium 8.4 Total Bilirubin 0.1 L AST 13 L ALT 8 Alkaline Phosphatase 69 Total Creatine Kinase 42 L CK-MB (CK-2) TNP CK-MB (CK-2) Rel Index TNP Troponin I < 0.012 Total Protein 6.0 L Albumin 3.3 L Globulin 2.7 Albumin/Globulin Ratio 1.2 Lipase 56 Nasal Screen MRSA (PCR) Blood Type Antibody Screen Crossmatch 01/22/19 01/23/19 01/23/19 21:12 01:30 03:05 WBC RBC Hgb 5.6 L* Hct 16.8 L* MCV MCH MCHC RDW Plt Count Neut % (Auto) Lymph % (Auto) Williams % (Auto) Eos % (Auto) Baso % (Auto) Neut # (Auto) Lymph # (Auto) Williams # (Auto) Eos # (Auto) Baso # (Auto) PT INR Sodium Potassium Chloride Carbon Dioxide BUN Creatinine Estimated GFR BUN/Creatinine Ratio Glucose Calcium Total Bilirubin AST ALT Alkaline Phosphatase Total Creatine Kinase CK-MB (CK-2) CK-MB (CK-2) Rel Index Troponin I Total Protein Albumin Globulin Albumin/Globulin Ratio Lipase Nasal Screen MRSA (PCR) Positive for mrsa H Blood Type O Positive Antibody Screen Negative Crossmatch See Detail Assessment & Plan Assessment and plan (1) Acute upper gastrointestinal bleeding: Current visit: Yes Status: Acute Assessment & Plan narrative: This is a 68-year-old male with acute on chronic anemia. He is admitted to the hospital for a gastrointestinal bleed presented with melena and symptomatic anemia. He is hemodynamically stable, initial hematocrit 17 currently receiving transfusion of 2 unit PRBC. Platelet and coag studies within normal limits however suspect dysfunctional platelets secondary to CKD. Liver ultrasound reviewed no evidence of cirrhosis doubt variceal source most likely peptic ulcer disease secondary to NSAIDs and alcohol. -NPO IV fluid -esophagoduodenoscopy today -continue Protonix
--- NOTE | 2019-01-23 08:29 | PM.HP.1 ---
History of Present Illness History of Present Illness Date Patient Seen: 01/23/19 Time Patient Seen: 08:00 Chief complaint: SOB Narrative: 68-year-old patient with long history of severe alcoholism diabetes a kidney failure liver failure nonhealing wounds has refused alcohol treatment and has been manageable with opiates for his chronic pain syndrome. Patient also has depression patient has refused alcohol treatment and was mixing his scheduled opiates with alcohol fat passing out falling in injured and so he is we have eliminated opiates and so patient has been taking aspirin and ibuprofen spite of our cautions about their GI toxicity and drinking and down without call. I do dark stool 1st several days although he is a very unreliable historian feeling worse weak and lightheaded which is a similar presentation to his previous intoxications generally leading to falls injuries and hospitalizations with follow-up penitentiary care. Patient History Medical History Alcoholism (Chronic) Anemia associated with chronic renal failure (Chronic) Chronic kidney disease, stage 4 (severe) (Chronic) Chronic pain (Chronic) Depression (Chronic) Diabetes type 2, controlled (Chronic) Duodenal ulcer (Acute) GI bleed (Resolved) Gout, arthropathy (Chronic) History of cervical fracture (Resolved) Hyperparathyroidism (Chronic) Hypertension (Chronic) Left leg pain (Chronic) Symptomatic anemia (Chronic) Surgical History H/O cervical spine surgery (Acute) History of colectomy (Resolved) Family & Social History Social History: household members friend(s),caregiver,other Prior Living Arrangements Apartment/Condo Safety & Behavioral: Feels Safe in Current Yes Environment Been Physically Hurt or No Threatened By a Person Suicidal Ideation Description None Tobacco & Substance use: Smoking Status Former smoker alcohol intake current alcohol intake frequency 0-2 drinks per day Substance Use Type does not use Meds Home Medications and Allergies Home Medications Medication Instructions Recorded Confirmed Type citalopram 20 mg PO DAILY 12/25/17 11/12/18 History glimepiride 1 mg PO DAILY 03/22/18 11/12/18 History doxazosin 4 mg PO BEDTIME 06/07/18 11/12/18 History acetaminophen 650 mg PO Q4HR PRN #100 tab 06/12/18 11/12/18 Rx furosemide 60 mg PO DAILY 09/27/18 11/12/18 History duloxetine 60 mg PO BID 09/28/18 11/12/18 History lidocaine [Lidoderm] 1 patch TOPICAL DAILY 09/28/18 11/12/18 History polyethylene glycol 3350 17 g PO DAILY PRN 09/28/18 11/12/18 History cyclobenzaprine 5 mg PO TID PRN #10 tab 11/10/18 Rx lorazepam 0.5 mg PO TID PRN 11/12/18 11/12/18 History silver sulfadiazine [SSD] 1 applic TOPICAL TID 11/12/18 11/12/18 History lidocaine 1 patch TOP DAILY #30 each 12/19/18 Rx Allergies Allergy/AdvReac Type Severity Reaction Status Date / Time latex Allergy Mild IRRITATION Verified 01/22/19 21:19 Sulfa (Sulfonamide AdvReac Mild N&V 1HOUR Verified 01/22/19 21:19 Antibiotics) AFTER RX, THINKS IT IS RELATED Review of Systems Review of Systems Narrative: Patient is disoriented and clear of thought not tracking well and unable to remember from minute to minute that he is NPO for surgical procedure this morning PERRLA (Ken is clear but content is disoriented Denies shortness of breath although complains of weakness Denies chest pain although he has poor peripheral vascular nonhealing leg wounds which combination of vascular disease and neurologic disease from his diabetes and his C-spine injuries I think some dementia secondary to all of the above Neuro with decreased sensation but pain and lower extremities Exam Vital Signs (past 8 hours): - 01/23/19 00:43 01/23/19 00:49 01/23/19 01:00 Temperature 98.7 F 98.7 F 99.6 F Pulse Rate 88 80 84 Respiratory Rate 16 16 20 Blood Pressure 152/56 H 152/56 H 146/75 H Pulse Oximetry 97 100 01/23/19 03:04 01/23/19 03:44 01/23/19 03:48 Temperature 99.0 F 98.8 F 98.8 F Pulse Rate 90 90 90 Respiratory Rate 18 13 13 Blood Pressure 128/78 140/64 140/64 Pulse Oximetry 99 01/23/19 03:50 01/23/19 05:56 Temperature 98.4 F 98.5 F Pulse Rate 99 H 96 H Respiratory Rate 17 16 Blood Pressure 133/62 121/53 L Pulse Oximetry Oxygen Delivery Method Room Air Oxygen Flow Rate 0 Narrative Exam Narrative: PE are are RLA EOMs intact patient Patient disoriented not thinking clearly not tracking well Neck without mass Lungs clear to auscultation and percussion Heart shows regular rate and rhythm without murmur Abdomen is tender mid epigastric soft Quite positive stools Neuro shows deficit sensation in lower extremities and Back Skin shows nonhealing lesions and left lower extremity in particular poor skin circulation Objective Labs Result Diagrams: 01/23/19 03:05 01/22/19 21:12 Labs: Laboratory Results - last 24 hr 01/22/19 01/22/19 01/22/19 21:12 21:12 21:12 WBC 12.7 H RBC 1.59 L Hgb 4.8 L* Hct 14.7 L* MCV 92.7 MCH 30.2 MCHC 32.5 RDW 16.2 H Plt Count 280 Neut % (Auto) 83.4 H Lymph % (Auto) 9.2 L Osborne % (Auto) 5.7 Eos % (Auto) 1.3 L Baso % (Auto) 0.4 Neut # (Auto) 86552 H Lymph # (Auto) 1200 Osborne # (Auto) 700 Eos # (Auto) 200 Baso # (Auto) 0 PT 11.7 INR 1.0 Sodium 137 Potassium 4.7 Chloride 106 Carbon Dioxide 20 L BUN 82 H Creatinine 2.50 H Estimated GFR 25.9 L BUN/Creatinine Ratio 32.8 H Glucose 270 H D Calcium 8.4 Total Bilirubin 0.1 L AST 13 L ALT 8 Alkaline Phosphatase 69 Total Creatine Kinase 42 L CK-MB (CK-2) TNP CK-MB (CK-2) Rel Index TNP Troponin I < 0.012 Total Protein 6.0 L Albumin 3.3 L Globulin 2.7 Albumin/Globulin Ratio 1.2 Lipase 56 Nasal Screen MRSA (PCR) Blood Type Antibody Screen Crossmatch 01/22/19 01/23/19 01/23/19 21:12 01:30 03:05 WBC RBC Hgb 5.6 L* Hct 16.8 L* MCV MCH MCHC RDW Plt Count Neut % (Auto) Lymph % (Auto) Osborne % (Auto) Eos % (Auto) Baso % (Auto) Neut # (Auto) Lymph # (Auto) Osborne # (Auto) Eos # (Auto) Baso # (Auto) PT INR Sodium Potassium Chloride Carbon Dioxide BUN Creatinine Estimated GFR BUN/Creatinine Ratio Glucose Calcium Total Bilirubin AST ALT Alkaline Phosphatase Total Creatine Kinase CK-MB (CK-2) CK-MB (CK-2) Rel Index Troponin I Total Protein Albumin Globulin Albumin/Globulin Ratio Lipase Nasal Screen MRSA (PCR) Positive for mrsa H Blood Type O Positive Antibody Screen Negative Crossmatch See Detail Assessment & Plan Assessment & Plan narrative: Assessment 1. GI bleed number bleed that this is secondary to aspirin and ibuprofen use mixed with alcohol use. Will check coags as well. Hematocrit dropped down to 14 has gotten 2 units 2 more units are pending will see how his count looks after that. Will check coagulation tests as well. Put him on pantoprazole and IV fluids. Assessment 2. Alcoholism think patient has got poor cognitive function based on that and secondary to chronic medical conditions. Will watch for withdrawal symptoms Assessment 3. Diabetes patient does not take good care dietary early or with exercise of his diabetes is on oral medication has had some lows as well as poor trouble improving because of compliance and care will when he is not NPO for his procedure restart his oral anti diabetic medication. Assessment 4. Depression patient is depressed setting does not really care be diet is not interested in alcohol rehabilitation but very focused on his pain and would like to switch doctors because I have been resistant to giving him been the pain medications with his abuse issues will restart his antidepressants as soon as he is not NPO for his procedure this morning Assessment 5. Chronic renal failure creatinine up to 2.5. This progresses because of his multiple conditions meds that he uses poor care of his diabetes diane I fritz ken. Assessment 6. Chronic pain patient has chronic pain in large part because of his previous falls from alcohol-related issues. He fell out of his trailer broke his neck has neurologic sequelae and to lower extremities upper extremities terms strength sensation. Will try to use lidocaine and not Tylenol issues and non opiate pain meds at up to this point. Assessment 7. Peripheral vascular disease and poor wound healing. Patient is on in regular wound care appointments for nonhealing leg wounds. Will try to get their input and treat consistent with out while he is inpatient here. Quality VTE Deep Vein Thrombosis/Pulmonary Embolism Present on Admission: No
[2019-01-23] MEDS: HYDROMORPHONE 1 MG INJ IV ×5 (09:49→21:50)
[2019-01-23] MEDS: SODIUM CHLORIDE 0.45% 1,000 ML 100 ML IV (09:50)
--- NOTE | 2019-01-23 10:14 | PC.NURSE ---
Addendum entered by Anabel Levy R.N. 01/23/19 15:35: received pt back from pacu at 1500- received bedside report and told few biopsies taken and duodenal ulcer found - very large burgundy stool incont in bed upon arrival with another large during cleaning pt- he is calling out demanding h20- not listening to staff- report given to oncoming rn SOPHIA - has total of 5u prbc transfused since admit Addendum entered by Anabel Levy R.N. 01/23/19 13:13: 1300- left to surgery suite for scheduled UGI Original Note: PT REQUESTING FREQ SIPS/DRINKS GIVE ME SOMETHING TO DRINK REPEATED X SEVERAL TIMES BY THIS RN, OTHER STAFF, AND MD X2 FOR THE NEED TO REMAIN NPO FOR POTENTIAL UGI LATER THIS DATE- UNSURE, RBC TRANSFUSED X 4 UNITS AND NOW NS @ 100C/H THRU PERIPHERAL LINE, DRESSING TO LEFT LOWER LEG CHANGED - WILL CALL WOUND CARE CLINIC TO DETERMINE THEIR PREFERENCE
[2019-01-23 10:20] LABS: Hematocrit 19.8 % (41-53); Hemoglobin 6.6 g/dL (13.5-17.5)
[2019-01-23 10:28] LABS: PTT Partial Thromboplastin Tim 32 SECONDS (26.4-36.2)
[2019-01-23 10:32] LABS: B Type Natriuretic Peptide < 100 (<100)
[2019-01-23] MEDS: FAMOTIDINE 20 MG/50 ML PIGGYBACK 200 MG IV (13:40)
[2019-01-23] MEDS: METOCLOPRAMIDE 10 MG/2 ML INJ IV (13:40)
[2019-01-23] MEDS: LACTATED RINGERS 1,000 ML 42 ML IV (13:41)
--- NOTE | 2019-01-23 14:25 | SUR.OPER ---
ATTEMPT TO CLIP OLD BLEEDING SITEDUODENUM
--- NOTE | 2019-01-23 14:34 | PM.OP.ENDO ---
Operative Date/Time/Diagnoses Date of procedure: 01/23/19 Time of procedure: 14:35 Pre-op diagnosis: Gastrointestinal bleed Post-op diagnosis: other (Duodenal ulcer) Procedure & Clinicians Study performed: Esophagoduodenoscopy Same procedure as scheduled: Yes Indications: 68-year-old male who presented to the hospital with melanotic stool hemodynamically stable and hematocrit of 19. History of recent NSAIDs alcohol abuse and improve prior peptic ulcer disease. Surgeon: Rosendo Curran Procedure Notes Procedure in detail: General anesthesia was induced and they were intubated with an endotracheal tube. A bite block was placed. the scope was inserted into the mouth and advanced through the esophagus and into the stomach. The pylorus was intubated. There was a small shallow ulcer in the second portion of the duodenum. I irrigated it coiously and there was no adherent clot, no vissible vessel no active bleeding. There were scatter clots within the stomach and duodenum. The scope was retroflexed within the stomach and there was a hiatal hernia. The scope was withdrawn into the esophagus the Z line was seen at 35 cm from the incisions. There was no bazzi's esophagitis or masses or strictures. Stomach was desufflated and scope removed. Patient tolerated procedure well. Findings: other findings (duodenal ulcer) Complications: none Impression: Duodenal ulcer Post-procedure Plan for aftercare: Empiric treatment for H pylori. Continue of PPI. Clears Repeat EGD in 6 weeks H pylori test ordered
--- NOTE | 2019-01-23 15:15 | CM.DANOTE ---
Patient is a 68 year old male who was admitted on 01/22/19 for SOB and possible G.I. Bleed. Pt has [facility] for insurance and his PCP is Dr. Quintana. EMR was reviewed. Per MD, pt to have Surg Consult due to bleeding and will have Endoscopy today. [facility]. Per RN, pt has been fairly confused and agitated today and possible need for CIWA protocol due to his hx of ETOH and has required 4 units of blood already without much stabilization to his H&H. Pt not currently on CIWA protocol but likely will receive orders to keep an eye on his CIWA scores. SW attempted to meet with pt but he was off the floor to have a scope. LARS called pt's sister Rosa who has been quite involved with his medical care and she confirms that she was aware that pt was admitted and plans to be bedside this evening and tomorrow. Rosa confirms that pt's Dtr has been DPOA for the pt but has realized that DPOA is too much responsibility at this time. Pt has previously discussed changing DPOA to his sister but has not formally completed pwk. LARS discussed that when pt is alert and oriented it can easily be done bedside with DPOA pwk and sister Rosa plans to discuss this with pt bedside when he is more alert and oriented. Rosa confirms that he lives in an apt on [address]. He has 2 roommates and describes them as a young couple, Darion and Kimber. Rosa is the one who usually drives pt to his appointments and states that she believes pt is currently open with a HH agency but does not believe that he still has Caregiver through [facility] but is unsure why caregiving has stopped. Pt continues to drink but Rosa thinks its only a couple beers a day. LARS called [facility] and confirmed that pt is open to service with them and if he is safe for return to home he will need Resume Orders. No clinicals faxed to [facility] yet today. LARS attempted to call Maribell and his previous assigned telehealth case manager Jeff at [phone] but was referred to the [place] office that covers [place] [phone] and left a msg to determine if pt is still receiving caregiving hours or not. Pt has a hx of SNF at d/c to [facility] and was last discharged from [facility] in Nov 2018 to [facility]. SW called [facility] admissions with new referral and discussed that unknown if pt will require SNF at d/c but they will review and follow in case SNF needed as pt's preference has historically been [facility]. Plan: SW to follow after scope and pt stabilizes for PT/OT eval and recommendations to determine if pt can safely return home with [facility] or if SNF needed. Sister Rosa plans to be bedside tomorrow and interested in DPOA brochure and pwk. SW to follow for return call from [facility] to determine if pt still on caregiving services. [facility] reviewing in case SNF needed. NOELLE Vinson Discharge Planning/Care Management CM Discharge Assessment Start: 01/23/19 15:10 Freq: Status: Active Protocol: Document 01/23/19 15:11 BF (Rec: 01/23/19 15:15 BF [id number]) Discharge Planning Assessment Assigned Cell Tuber Machine RADHA Menendez DPTIFFANY/Assigned Designee Name Sister Rosa working on pwk Advance Directives? No Advance Directives on File No History Provided By Patient,Family Member,Medical Record Has Patient been admitted in last 30 No days? Comment Last discharged 11/10/18 to [facility] from [facility] Prior Living Arrangements Apartment/Condo Household Members friend(s),other Comment lives with 2 younger roommates Type of transporation used prior to Relies on Others admit Comment Sister Rosa ususally transports to appointments Independent with ADL's Yes Is patient alert and oriented? Yes: currently confused Needs Assistance With Managing Medications,Home Chores / Shopping Caregiver for Another No Community Services used prior to Physical Therapy,Home Health admission: Nurse Comment Open with [facility] Name of Agency [facility] Comment Waiting for scope and PT/OT eval and recommendations Barriers to Discharge Yes Comment Unclear at this time pending progress and PT/OT Discharge Plan Home with Home Health Transportation Arrangement Family likely can provide transport if safe for home Additional Comment Waiting for pt to stabilize and then work with PT/OT Review Status In Process Please Provide Date Initial DC 01/23/19 Assessment Was Performed Next Review Type Continued Stay Review
--- NOTE | 2019-01-23 15:29 | SUR.PHASEI ---
Pt arrived, very fidgety not complying with care.Stable PACU stay tolerated ice chips.
[2019-01-23] MEDS: metroNIDAZOLE 500 MG TABLET PO (16:14)
[2019-01-23 16:17] LABS: Hematocrit 22.6 % (41-53)
[2019-01-23 16:20] LABS: Hemoglobin 7.6 g/dL (13.5-17.5)
--- NOTE | 2019-01-23 16:42 | PC.NURSE ---
Addendum entered by Nelly Palmer R.N. 01/23/19 22:07: 2200- Patient has required 10mg IV ativan, Haldol 2mg IV, Dilaudid 3mg IV this shift. Patient when awake is not directable and is combative. H/H was 6.9 and 19.8 at 2000 draw. Order to transfuse two units was obtained. First unit is infusing. Next H/H with am labs. O2 on at 2l cannula to keep saturations 92%. Family is aware of patient condition via phone update. Will monitor. Addendum entered by Nelly Palmer R.N. 01/23/19 22:03: 1830- Soft wrist restraints had to be placed to keep patient from pulling out higgins catheter and IV's. Patient is hitting and kicking at staff. Unable to redirect or console. Ciwaa at [address] Quintana called to update on condition and obtain restraint order. Addendum entered by Nelly Palmer R.N. 01/23/19 17:40: 1700- Orders recieved from Dr. Quintana. Patient placed on Ciwaa protocol. Ciwaa is 11. IV ativan given per protocol. Order recieved for higgins catheter placement due to increased agitation and inability to mobilize safely. Repeat labs ordered. Will monitor. Original Note: 1615- Patient is very restless, agitated and calling out. Patient states he is in pain. Patient attempting multiple times to get oob. Patient has pulled his left antecubital heplock. Patient has multiple new open skin tears to both shins due to agitation and attempting to get oob. Patient has been medicated for pain but remains agitated. Call out to MD for Ciwaa protocol and diet status. Patient is getting ice chips but currently is listed as NPO. Patient is incontinent of stool and urine. Lungs are clear to auscultation posteriorly. Abdomen is distended and there are hyperactive bowel tones. At 1500hr day nurse reported upon arrival from procedure patient had a very large melana stool, no further stools noted. Will monitor closely.
[2019-01-23] MEDS: LORazepam 2 MG/ML INJ IV ×5 (17:31→21:42)
[2019-01-23 17:34] LABS: BUN Creatinine Ratio 42.1 (6-22); Blood Urea Nitrogen 101 mg/dL (9-20); Calcium 7.9 mg/dL (8.4-10.2); Carbon Dioxide 21 mmol/L (22-32); Chloride 109 mmol/L (98-107); Estimated Glomerular Filt Rate 27.1 mL/min (>60); Glucose 274 mg/dL (80-110); HEMOLYSIS < 15 (0-50); Potassium 4.9 mmol/L (3.4-5.1); Sodium 140 mmol/L (137-145)
--- NOTE | 2019-01-23 19:00 | PC.NURSE ---
Addendum entered by Beba Harvey 01/23/19 22:09: 2.5mL removed from higgins bulb at 1815, afterwards patient seemed to be in less distress. Original Note: Patient was agitated and complaining of pain after higgins insertion. 2.5mL removed from higgins bulb .
--- NOTE | 2019-01-23 19:26 | PC.NURSE ---
Unable to obtain blood glucose at 1800 due to combative behavior
[2019-01-23] MEDS: HALOPERIDOL 5 MG/ML VIAL 2 MG IV (19:47)
[2019-01-23 20:16] LABS: Hematocrit 19.8 % (41-53); Hemoglobin 6.9 g/dL (13.5-17.5)
[2019-01-24] VITALS (34 sets, daily range): BP systolic 118–186; BP diastolic 49–94; PULSE 57–117; RESP 14–32; TEMP 36.9–38.8; O2SAT 90–100; BMI 38.7
[2019-01-24] MEDS: LORazepam 2 MG/ML INJ IV ×14 (00:30→09:20)
--- NOTE | 2019-01-24 00:49 | PC.NURSE ---
Addendum entered by Sánchez Renee R.N. 01/24/19 07:02: 0400: Pt continues to receive Ativan 2mg IV frequently due to CIWA score. Agtitated constantly and becomes more agitated with any cares. Pt in 4 point soft restraints due to kicking staff and attempting to throw legs over bedrail to exit bed. 0630: Linen changed, sponge bath given, dressings to lt leg replaced. Pt continues to have a CIWA score of 11-16. Addendum entered by Sánchez Renee R.N. 01/24/19 02:28: 0228: Pt continues to be extremely agitated, yelling, having auditory halucinations, and kicking at staff. Ativan 2mg given IV per protocol. Addendum entered by Sánchez Renee R.N. 01/24/19 01:50: 0030: CIWA score is >15. Ativan 2mg given IV per CIWA protocol.. Pt actively attempting to kick at staff. 0100: Pt reached higgins catheter and pulled it out. Higgins catheter replaced with silicone higgins 18fr. 0130: Pt continues to be agitated, yelling and kicking. Ativan 2mg given IV per CIWA protocol. Original Note: Custom Frame Assembler Note: 0000: Pt waking up, agitated and combative. Vital signs stable. IVs in rt hand and lt hand are in place and patent. NS infusing in lt hand due to transfusion of PRGBCs finished. Higgins catheter patent, urine is clear heidy. Seizure pads in place on bed rails. Pt attempting to kick staff, swings legs in the air and attempting to climb over the bed rail.
[2019-01-24 05:29] LABS: PTT Partial Thromboplastin Tim 32 SECONDS (26.4-36.2)
[2019-01-24 05:32] LABS: Hemoglobin 7.9 g/dL (13.5-17.5); Mean Corpuscular HGB Conc 34.6 % (30-36); Mean Corpuscular Hemoglobin 30.2 PG (26-34); Mean Corpuscular Volume 87.5 fL (80-100); Platelet Count 212 X10^3/uL (150-400); Red Cell Distribution Width 15.7 % (11.6-14.8); White Blood Cell Count 21.3 X10^3/uL (4.5-11.0)
[2019-01-24 05:34] LABS: BUN Creatinine Ratio 39.2 (6-22); Blood Urea Nitrogen 102 mg/dL (9-20); Calcium 7.6 mg/dL (8.4-10.2); Carbon Dioxide 21 mmol/L (22-32); Chloride 114 mmol/L (98-107); Estimated Glomerular Filt Rate 24.7 mL/min (>60); Glucose 252 mg/dL (80-110); HEMOLYSIS < 15 (0-50); Potassium 4.3 mmol/L (3.4-5.1); Sodium 144 mmol/L (137-145)
[2019-01-24 05:37] LABS: Add Manual Diff / Slide Review YES; Hematocrit 22.8 % (41-53)
[2019-01-24 05:43] LABS: Troponin I 0.038 ng/mL (0.01-0.034)
[2019-01-24 05:54] LABS: Neutrophils Absolute Manual 17892 /uL (3000-5900); Total Cells Counted 100
[2019-01-24 05:55] LABS: Anisocytosis 1+; Polychromasia 1+
[2019-01-24 05:56] LABS: Basophilic Stippling 1+
[2019-01-24] MEDS: HALOPERIDOL 5 MG/ML VIAL 2 MG IV (07:45)
--- NOTE | 2019-01-24 09:00 | PC.NURSE ---
Addendum entered by Radha Baca R.N. 01/24/19 15:22: Spo2 90-98 on 2L. Lungs have been a bit coarse this afternoon with weak, cough effort. 2L NC in place. NPO this shift, and oral care done. Update to sisterSUE paperwork addressed with Alina from D/c planning. 2nd unit of PRBC infusing. PIV x2. No stool this shift. Remains confused and deliium. Pt will respond to his name at times. troponin elevated, one further draw this evening. Addendum entered by Radha Baca R.N. 01/24/19 14:35: Addendum entered by Radha Baca R.N. 01/24/19 14:01: 1400 Pt has done substantially better since adding IV dilaudid. Will answer to his name now. But continues with confusion. Original Note: Am Shift Assumed care of Pt, thrashing and delerium noted, calling out. CIWA score of 16. Ativan given, Pt is in 4 pt restraints, and unable to have PO meds, restarting IV meds as ordered, Dr Curran into see Pt, will follow as needed. Dr Quintana into address elevated CIWA and continued need for ativan/haldol. IV Protonix restarted for GI bleed. Repositioning and personal care done. Pt continues to need restraint for safety. Oral care provided. IV 1/2 NS running. PIV x2. 2 units ordered for persistant low H/H. Recheck troponin, this afternoon. Pt continues to call out/delerious/hallucinations active.
[2019-01-24 11:00] LABS: Troponin I 0.085 ng/mL (0.01-0.034)
[2019-01-24] MEDS: HYDROMORPHONE 1 MG INJ IV ×2 (12:15→15:04)
--- NOTE | 2019-01-24 13:06 | CM.DPC ---
DCP: continued: case received, EMR reviewed and met with pt's sister Rosa Tubbs: [phone] outside of pt's ICU room. Pt was lying quietly in bed, [address] CIWA today at 16. Discussed POA process in followup to Rosa's discussion with Jaun Manuel Menendez yesterday. Gave copy of the [facility] brochure with documents and added the notary page as per the new regulations. Rosa agrees that her bother is not yet clear enough to give her the POA, transferring it from his [facility] but expects to be able to complete this once is is medically clearer. She is aware that this can also notarized at the snf level. Rosa does agree that pt will likely need [facility] again. He has been there a few times. Tammi was here to check in on pt said that if need arises they will accept him again (providing he is medically stable for same. Currently is on CIWA and was in 4 pt restraints). Pt does now have dx of upper GI bleed and per RN coordinator Trixie in Rounds: pt has had total of 7 PRBC. P: at this time looks like [facility] when stable for same....DCP team will follow closely. IF snf: will need [facility]. IF snf, will need to update [facility].
[2019-01-24] MEDS: PANTOPRAZOLE 80 MG in SODIUM CHLORIDE 0.9% 100 ML 10 ML IV ×2 (13:15→19:13)
--- NOTE | 2019-01-24 14:18 | PM.PN.1 ---
Subjective Subjective Date Patient Seen: 01/24/19 Time Patient Seen: 14:18 Interval history: EGD performed yesterday demonstrated and a ulcer non bleeding in 2nd portion of the duodenum. Overnight and he appears to have had some demand ischemia as well as actively withdrawing from alcohol. Exam Vital Signs (past 8 hours): - 01/24/19 07:00 01/24/19 10:11 01/24/19 11:48 Temperature 100.2 F H 100.7 F H 100.3 F H Pulse Rate 117 H 111 H 101 H Respiratory Rate 14 32 H 30 H Blood Pressure 140/74 118/49 L Pulse Oximetry 94 95 01/24/19 13:54 Temperature 99.6 F Pulse Rate 100 H Respiratory Rate 26 H Blood Pressure 119/49 L Pulse Oximetry Oxygen Delivery Method Nasal Cannula Oxygen Flow Rate 2 Narrative Exam Narrative: General adult male not alert responsive to pain Chest tachypnea and sinus tachycardia Abdomen soft nontender nondistended Objective Labs Result Diagrams: 01/24/19 04:50 01/24/19 04:50 Labs: Laboratory Results - last 24 hr 01/22/19 01/23/19 01/23/19 21:12 16:03 16:03 WBC RBC Hgb 7.6 L Hct 22.6 L MCV MCH MCHC RDW Plt Count Neut % (Auto) Lymph % (Auto) Sharkey % (Auto) Eos % (Auto) Baso % (Auto) Lymph # (Auto) Sharkey # (Auto) Baso # (Auto) Total Counted Seg Neutrophils % Band Neutrophils % Lymphocytes % (Manual) Monocytes % (Manual) Metamyelocytes % Neutrophils # (Manual) RBC Morphology Polychromasia Basophilic Stippling Anisocytosis PT INR APTT Sodium Potassium Chloride Carbon Dioxide BUN Creatinine Estimated GFR BUN/Creatinine Ratio Glucose Lactate Calcium Troponin I Blood Type O Positive Antibody Screen Negative Crossmatch See Detail 01/23/19 01/23/19 01/24/19 16:03 20:00 04:50 WBC 21.3 H D RBC 2.60 L Hgb 6.9 L* 7.9 L Hct 19.8 L* 22.8 L MCV 87.5 D MCH 30.2 MCHC 34.6 RDW 15.7 H Plt Count 212 Neut % (Auto) Not Reportable Lymph % (Auto) Not Reportable Sharkey % (Auto) Not Reportable Eos % (Auto) Not Reportable Baso % (Auto) Not Reportable Lymph # (Auto) Not Reportable Sharkey # (Auto) Not Reportable Baso # (Auto) Not Reportable Total Counted 100 Seg Neutrophils % 79.0 H Band Neutrophils % 5.0 Lymphocytes % (Manual) 7.0 L Monocytes % (Manual) 8.0 Metamyelocytes % 1.0 H Neutrophils # (Manual) 33865 H RBC Morphology See below Polychromasia 1+ H Basophilic Stippling 1+ H Anisocytosis 1+ H PT INR APTT Sodium 140 Potassium 4.9 Chloride 109 H Carbon Dioxide 21 L BUN 101 H Creatinine 2.40 H Estimated GFR 27.1 L BUN/Creatinine Ratio 42.1 H Glucose 274 H Lactate Calcium 7.9 L Troponin I Blood Type Antibody Screen Crossmatch 01/24/19 01/24/19 01/24/19 04:50 04:50 10:25 WBC RBC Hgb Hct MCV MCH MCHC RDW Plt Count Neut % (Auto) Lymph % (Auto) Sharkey % (Auto) Eos % (Auto) Baso % (Auto) Lymph # (Auto) Sharkey # (Auto) Baso # (Auto) Total Counted Seg Neutrophils % Band Neutrophils % Lymphocytes % (Manual) Monocytes % (Manual) Metamyelocytes % Neutrophils # (Manual) RBC Morphology Polychromasia Basophilic Stippling Anisocytosis PT 12.0 INR 1.0 APTT 32 Sodium 144 Potassium 4.3 Chloride 114 H Carbon Dioxide 21 L BUN 102 H Creatinine 2.60 H Estimated GFR 24.7 L BUN/Creatinine Ratio 39.2 H Glucose 252 H Lactate 1.0 Calcium 7.6 L Troponin I 0.038 H Blood Type Antibody Screen Crossmatch 01/24/19 10:25 WBC RBC Hgb Hct MCV MCH MCHC RDW Plt Count Neut % (Auto) Lymph % (Auto) Sharkey % (Auto) Eos % (Auto) Baso % (Auto) Lymph # (Auto) Sharkey # (Auto) Baso # (Auto) Total Counted Seg Neutrophils % Band Neutrophils % Lymphocytes % (Manual) Monocytes % (Manual) Metamyelocytes % Neutrophils # (Manual) RBC Morphology Polychromasia Basophilic Stippling Anisocytosis PT INR APTT Sodium Potassium Chloride Carbon Dioxide BUN Creatinine Estimated GFR BUN/Creatinine Ratio Glucose Lactate Calcium Troponin I 0.085 H Blood Type Antibody Screen Crossmatch Assessment & Plan Assessment & Plan narrative: 68-year-old male with a upper GI bleed, hemodynamically stable. EGD mm demonstrated nonbleeding ulcer in his proximal duodenum yesterday. Hematocrit 23 this a.m. responded appropriately to transfusion of 2 units yesterday. -continue empiric H pylori treatment as written -will need repeat EGD in 3 months as outpatient -follow-up H pylori test -please call with questions Quality VTE Deep Vein Thrombosis/Pulmonary Embolism Present on Admission: No
--- NOTE | 2019-01-24 15:37 | DI.RAD.S_ITS ---
PROCEDURE: XR CHEST 1V INDICATIONS: Respiratory failure TECHNIQUE: One view of the chest was acquired. COMPARISON: [facility], CR, XR CHEST 1V, 09/27/2018, 22:07. [facility], CR, XR CHEST 1V, 06/07/2018, 19:45. FINDINGS: Surgical changes and devices: Prior cervical thoracic junction and lumbosacral spine fusion procedures. Lungs and pleura: Lungs are edematous. No pleural effusions or pneumothorax. Mediastinum: Mediastinal contours appear normal. Heart size is globally enlarged. Bones and chest wall: No suspicious bony lesions. Overlying soft tissues appear unremarkable. IMPRESSION: Acute CHF pattern with cardiomegaly and moderate generalized pulmonary edema. Stable postsurgical changes involving the cervical and lumbosacral spine. Dictated by: Tony Carrillo M.D. on 01/24/2019 at 15:59 Approved by: Tony Carrillo M.D. on 01/24/2019 at 16:07
[2019-01-24] MEDS: ACETAMINOPHEN 650 MG SUPP PR (16:01)
--- NOTE | 2019-01-24 16:14 | PC.NURSE ---
Addendum entered by Nelly Palmer R.N. 01/24/19 22:56: 1730- Patient had a double lumen Picc placed by DI nurse. Patient blood gas poor, CXR is showing pulmonary edema, 40mg Lasix given. Dr. Quintana notified and call placed to ER to have them intubate. Patient now vented 7.5 ETT 23 at the lip. Patient started on Propofol for sedation, Fentanyl for pain. Antibiotics started per order. Temperature treated with rectal tylenol. Original Note: 1530- Patient found to be in respiratory distress. O2 on at 2L cannula saturation 89-90%. Patient is using accessory muscles to breath which is a change from yesterday. WBC is up to 21.3. Temperature is 101.8. Last unit of blood is infusing. Lungs have scattered Rhonchi extremely dim bilaterally. Bowel tones are hypoactive. Wells is draining clear yellow urine. Dr. Quintana called and orders obtained. Will monitor.
--- NOTE | 2019-01-24 16:39 | DI.RAD.S_ITS ---
PROCEDURE: XR CHEST FOR PICC 1V INDICATIONS: S/P Picc line placement TECHNIQUE: One view of the chest was acquired. COMPARISON: [facility], CR, XR CHEST 1V, 01/24/2019, 15:41. [facility], CR, XR CHEST 1V, 09/27/2018, 22:07. FINDINGS: Surgical changes and devices: Right-sided PICC with the tip at the lower third of the SVC, new. Cervical spine ACDF with fractured right pedicle screws is unchanged. Thoracolumbar spine fixation hardware appears stable. Lungs and pleura: Patchy airspace opacities bilaterally are not significant change. No pleural effusions or pneumothorax. Mediastinum: Mediastinal contours appear normal. Heart size is prominent. Bones and chest wall: No suspicious bony lesions. Overlying soft tissues appear unremarkable. IMPRESSION: 1. Right-sided PICC with the tip at the lower third of the SVC, new. 2. Similar bilateral patchy airspace opacities. Dictated by: Emmanuel Echavarria M.D. on 01/24/2019 at 17:10 Approved by: Emmanuel Echavarria M.D. on 01/24/2019 at 17:12
[2019-01-24] MEDS: FUROSEMIDE 40 MG/4 ML VIAL IV (16:49)
[2019-01-24 17:10] LABS: HCO3 ABG 21 mmol/L (22-26); PCO2 ABG 53.2 mmHg (35-45); PO2 ABG 96 mmHg (80-100); TCO2 ABG 22 mmol/L (21-31)
[2019-01-24 17:11] LABS: Fractionated Inspired Oxygen 0.21; Oxygen Saturation ABG 95 % (95-100)
--- NOTE | 2019-01-24 17:43 | DI.RAD.S_ITS ---
PROCEDURE: XR CHEST 1V INDICATIONS: intubation TECHNIQUE: One view of the chest was acquired. COMPARISON: [facility], CR, XR CHEST FOR PICC 1V, 01/24/2019, 16:44. [facility], CR, XR CHEST 1V, 01/24/2019, 15:41. FINDINGS: Surgical changes and devices: Endotracheal tube tip terminates in the lower trachea. Right PICC line terminates at the cavoatrial junction. Cervical spine ACDF and thoracolumbar spine fixation hardware. Lungs and pleura: Mild patchy or space opacities bilaterally. No pleural effusions or pneumothorax. Mediastinum: Mediastinal contours appear normal. Heart size is prominent. Bones and chest wall: No suspicious bony lesions. Overlying soft tissues appear unremarkable. IMPRESSION: Endotracheal tube tip terminates in the lower trachea. Dictated by: Emmanuel Echavarria M.D. on 01/24/2019 at 19:11 Approved by: Emmanuel Echavarria M.D. on 01/24/2019 at 19:13
[2019-01-24] MEDS: SODIUM CHLORIDE 0.45% 1,000 ML 50 ML IV (17:57)
[2019-01-24] MEDS: CEFTRIAXONE 2 GM/50 ML FROZ.PIGGY IV (18:04)
[2019-01-24 18:18] LABS: Troponin I 0.162 ng/mL (0.01-0.034)
--- NOTE | 2019-01-24 18:18 | PM.PN.1 ---
Subjective Subjective Date Patient Seen: 01/24/19 Time Patient Seen: 08:00 Interval history: Patient severely ill 68-year-old gentleman who presented with GI bleed with weakness and fatigue fatigue vomiting and some dark rectal bleeding. Over the course of the next hours through the night began to develop abuse alcohol withdrawal symptoms. Very agitated got 42 mg of Ativan through the night along with Haldol and Dilaudid. Begin progressively more short of breath and through the course of the day and get a blood gas which showed he is becoming acidotic and retain CO2. Patient had been scoped showing an ulcer on arrival with no varices seemed most likely source of bleeding at that point. We could watch him here. Became less responsive through the day gas showed again acidosis patient continued to have a hematocrit that was staying in the 22 range in so got several more units of blood. Eventually got so labored in breathing and unresponsive that after determination was made that he needed intubation and intubation was an active by a ER physician. And for consult with hospitalist and surgery. Their feeling is that patient should be transferred tonight Family is here and concur with patient's wishes to pursue resuscitation do things necessary for survival. Patient's social history is will that he lives in a small trailer I believe with roommates. Has long history of alcohol and substance issues but reported by the family he is only drinking couple of beers a night lately. Has significant history of chronic pain and multiple falls and with multiple injuries to neck and lower extremities Nonhealing leg wound on left side secondary to I think neuropathy from his 1 of his previous falls where he got a C-spine fracture. Exam Vital Signs (past 8 hours): - 01/24/19 11:48 01/24/19 13:00 01/24/19 13:54 Temperature 100.3 F H 99.7 F H 99.6 F Pulse Rate 101 H 114 H 100 H Respiratory Rate 30 H 28 H 26 H Blood Pressure 118/49 L 119/49 L 119/49 L Pulse Oximetry 95 01/24/19 15:21 01/24/19 16:01 Temperature 99.4 F 101.8 F H Pulse Rate 108 H Respiratory Rate 26 H Blood Pressure 141/61 H Pulse Oximetry Oxygen Delivery Method Nasal Cannula Oxygen Flow Rate 2 Narrative Exam Narrative: Patient this time is on ventilator and sedated. Early this morning was having a groggy thrash he all morning he can struggle more through the course of the day with increasing shortness of breath and eventually ended up getting intubated. Currently on ventilator maintaining good blood pressure and good oxygen saturation Abdomen is soft but quiet decreased bowel sounds Neuro showed patient to be disoriented seem to be in alcohol withdrawal or substance withdrawal of some sort agitated thrashing moving all extremities very actively in with a great deal of strength. Nonresponsive now with sedation with propafenone. Objective Labs Result Diagrams: 01/24/19 04:50 01/24/19 04:50 Labs: Laboratory Results - last 24 hr 01/22/19 01/23/19 01/24/19 21:12 20:00 04:50 WBC 21.3 H D RBC 2.60 L Hgb 6.9 L* 7.9 L Hct 19.8 L* 22.8 L MCV 87.5 D MCH 30.2 MCHC 34.6 RDW 15.7 H Plt Count 212 Neut % (Auto) Not Reportable Lymph % (Auto) Not Reportable Hodgeman % (Auto) Not Reportable Eos % (Auto) Not Reportable Baso % (Auto) Not Reportable Lymph # (Auto) Not Reportable Hodgeman # (Auto) Not Reportable Baso # (Auto) Not Reportable Total Counted 100 Seg Neutrophils % 79.0 H Band Neutrophils % 5.0 Lymphocytes % (Manual) 7.0 L Monocytes % (Manual) 8.0 Metamyelocytes % 1.0 H Neutrophils # (Manual) 92173 H RBC Morphology See below Polychromasia 1+ H Basophilic Stippling 1+ H Anisocytosis 1+ H PT INR APTT ABG pH ABG pCO2 ABG pO2 ABG HCO3 ABG Total CO2 ABG O2 Saturation ABG Base Excess FiO2 Sodium Potassium Chloride Carbon Dioxide BUN Creatinine Estimated GFR BUN/Creatinine Ratio Glucose Lactate Calcium Troponin I Blood Type O Positive Antibody Screen Negative Crossmatch See Detail 01/24/19 01/24/19 01/24/19 04:50 04:50 10:25 WBC RBC Hgb Hct MCV MCH MCHC RDW Plt Count Neut % (Auto) Lymph % (Auto) Hodgeman % (Auto) Eos % (Auto) Baso % (Auto) Lymph # (Auto) Hodgeman # (Auto) Baso # (Auto) Total Counted Seg Neutrophils % Band Neutrophils % Lymphocytes % (Manual) Monocytes % (Manual) Metamyelocytes % Neutrophils # (Manual) RBC Morphology Polychromasia Basophilic Stippling Anisocytosis PT 12.0 INR 1.0 APTT 32 ABG pH ABG pCO2 ABG pO2 ABG HCO3 ABG Total CO2 ABG O2 Saturation ABG Base Excess FiO2 Sodium 144 Potassium 4.3 Chloride 114 H Carbon Dioxide 21 L BUN 102 H Creatinine 2.60 H Estimated GFR 24.7 L BUN/Creatinine Ratio 39.2 H Glucose 252 H Lactate 1.0 Calcium 7.6 L Troponin I 0.038 H Blood Type Antibody Screen Crossmatch 01/24/19 01/24/19 01/24/19 10:25 15:52 16:00 WBC RBC Hgb Hct MCV MCH MCHC RDW Plt Count Neut % (Auto) Lymph % (Auto) Hodgeman % (Auto) Eos % (Auto) Baso % (Auto) Lymph # (Auto) Hodgeman # (Auto) Baso # (Auto) Total Counted Seg Neutrophils % Band Neutrophils % Lymphocytes % (Manual) Monocytes % (Manual) Metamyelocytes % Neutrophils # (Manual) RBC Morphology Polychromasia Basophilic Stippling Anisocytosis PT INR APTT ABG pH 7.20 L* ABG pCO2 53.2 H ABG pO2 96 ABG HCO3 21 L ABG Total CO2 22 ABG O2 Saturation 95 ABG Base Excess -7.0 L FiO2 0.21 Sodium Potassium Chloride Carbon Dioxide BUN Creatinine Estimated GFR BUN/Creatinine Ratio Glucose Lactate Calcium Troponin I 0.085 H 0.162 H* Blood Type Antibody Screen Crossmatch Assessment & Plan Assessment & Plan narrative: Assessment 1. GI bleed patient was go admit altered and not copious amount of blood seen patient has had a large melanotic stool subsequent to that and has had fairly significant amount blood administered through the course of the day his hemoglobin was down to 4 and he got 7 her units through the course of the next 24 hours secondary to crit hovering at about 22 6 was 7 on his a globin in fear that he might be continuing to bleed. Has not had more blood out no blood on Carol. Concerned that there might be no other bleed that has a sequestered somewhere else hospitalist and surgeon both agree that patient needs to scan with contrast which patient has very fragile kidneys if there and do that will need to be in a place where they have dialysis capability. Assessment 2. Respiratory failure patient became progressively more short of breath and laboring to breathe blood gas showed pH is 7.2 elevated CO2 and was felt that he was beginning to retain and nearing respiratory failure. Patient was intubated and ventilators settings instituted patient now oxygenating maintaining good blood pressure and heart rate but will need respiratory management. Assessment 3. Non ST T wave infarction patient had elevation of troponin not CPKs during the night with any extreme agitation and thrashing behavior. This seemed like alcohol withdrawal or substance withdrawal in is thrashing and agitation felt he might have had a demand or type 2 myocardial infarction. Wherever he is transferred will need cardiology consult as well. Assessment 4. Patient has chronic renal failure secondary to diabetes and in the greatest degree. Creatinine is at 2.6-0.7. Think secondary to that he has got chronic anemia as well. He is going to need Nephrology in all probability if they do scanning to person where the above-mentioned volume of blood might have gone. Assessment 5. Diabetes patient's fairly poor control though his A1c currently is 6.3 does have a component of neuropathy secondary to that. Will monitor and keep patient on a moderate algorithm for insulin administration and titrate that up as needed with things worsen with increasing stresses. Assessment 6. 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 Assessment 7. MRSA colonization. Current antibiotics activated with that in mind. Assessment number 8 recent urinary tract infection although urine looks clear here in did not suggest infection or complications earlier possibility that this could be uroseptic issue there is no obvious blood in his urine. Quality VTE Deep Vein Thrombosis/Pulmonary Embolism Present on Admission: No
[2019-01-24 18:23] LABS: Hemoglobin 9.1 g/dL (13.5-17.5); Mean Corpuscular HGB Conc 33.7 % (30-36); Mean Corpuscular Hemoglobin 30.4 PG (26-34); Mean Corpuscular Volume 90.3 fL (80-100); Platelet Count 207 X10^3/uL (150-400); Red Blood Cell Count 2.99 X10^6/uL (4.5-5.9); Red Cell Distribution Width 15.5 % (11.6-14.8); White Blood Cell Count 18.8 X10^3/uL (4.5-11.0)
[2019-01-24 18:41] LABS: Hematocrit 25.2 % (41-53); Hemoglobin 8.5 g/dL (13.5-17.5); Mean Corpuscular HGB Conc 33.8 % (30-36); Mean Corpuscular Hemoglobin 30.3 PG (26-34); Mean Corpuscular Volume 89.6 fL (80-100); Platelet Count 191 X10^3/uL (150-400); Red Blood Cell Count 2.81 X10^6/uL (4.5-5.9); Red Cell Distribution Width 15.2 % (11.6-14.8); White Blood Cell Count 14.7 X10^3/uL (4.5-11.0)
[2019-01-24 18:45] LABS: Add Manual Diff / Slide Review YES
[2019-01-24 18:49] LABS: Lactate (Lactic Acid) 0.8 mmol/L (0.7-2.1)
[2019-01-24 18:49] LABS: Bacteria Urine None Seen
[2019-01-24 18:50] LABS: Alanine Aminotransferase 9 IU/L (<50); Albumin 2.9 g/dL (3.5-5.0); Albumin Globulin Ratio 1.2 (1.0-2.8); Alkaline Phosphatase 62 U/L (38-126); Aspartate Aminotransferase 25 IU/L (17-59); BUN Creatinine Ratio 33.8 (6-22); Bilirubin Total 0.5 mg/dL (0.2-1.3); Blood Urea Nitrogen 88 mg/dL (9-20); Carbon Dioxide 20 mmol/L (22-32); Chloride 113 mmol/L (98-107); Creatine Kinase 556 U/L (55-170); Estimated Glomerular Filt Rate 24.7 mL/min (>60); Globulin 2.5 g/dL (1.7-4.1); Glucose 299 mg/dL (80-110); HEMOLYSIS < 15 (0-50); Magnesium 1.9 mg/dL (1.6-2.3); Potassium 4.4 mmol/L (3.4-5.1); Sodium 143 mmol/L (137-145); Total Protein 5.4 g/dL (6.3-8.2)
[2019-01-24 18:51] LABS: Appearance Urine UA CLEAR; Bilirubin Urine UA NEGATIVE (NEGATIVE); Color Urine UA YELLOW; Glucose Urine UA NEGATIVE (Negative); Ketones Urine UA NEGATIVE (NEGATIVE); Leukocyte Esterase Urine UA NEGATIVE (NEGATIVE); Nitrite Urine UA NEGATIVE (Negative); Occult Blood Urine UA 3+ (Negative); Protein Urine UA NEGATIVE (Negative); Specific Gravity Urine UA <=1.005 (1.000-1.035); Urobilinogen Urine UA 0.2 E.U./dL (0.2)
[2019-01-24 18:53] LABS: Calcium 7.1 mg/dL (8.4-10.2)
--- NOTE | 2019-01-24 18:57 | ED.CONSULT ---
ED Provider Consult/Code Note General Date Patient Seen: 01/24/19 Time Patient Seen: 17:15 Reason for Admission: SOB Events leading to Consult/Code: I was called to evaluate patient for decreasing mental status and inability to protect airway. Patient being seen for possible alcohol withdrawal and potential GI bleed with possible varices. He is not actively bleeding. But is unresponsive. ABG does show mild respiratory acidosis. He is unresponsive to pain. According to nursing he is full code. Family has been contacted and called. PCP called and notified waiting to hear response. Cardiac Rhythm: Sinus rhythm Respiratory Auscultation: clear to auscultation bilaterally ET Tube Size: 7.5 Tube Secured Depth (cm): 23 Tube Secured Location: lips Tube Placement Confirmation: Visualized tube passing through cords and Equal breath sounds bilaterally Care Provided Description of care provided: Intubation: Decision to intubate this patient was made secondary to respiratory compromise. Appropriate staffing including multiple nurses and respiratory therapy were at the bedside. Patient was preoxygenated and put on monitors. Rapid sequence intubation was performed using the following drugs: Etomidate 15 mg succinylcholine 180 mg. Intubation was successful based on visualization through the cords, condensation tube, confirmation with end tidal CO2 monitoring, equal breath sounds bilaterally, as well as radiographic confirmation of endotracheal tube just above the suzi. Ongoing sedation with propofol. Patient did have some mouth trauma during intubation no active is upper GI bleeding noted. Outcome Outcome: Chest x-ray confirmed by myself of the ET tube in place. Called and spoke with Dr. Schaefer and updated him on symptoms test results Personally.
[2019-01-24 18:58] LABS: Amorphous Sediment Urine 1+; Culture Indicated Urine Cult Not Indicated; RBC Urine 1-5/HPF (0-5/HPF); Squamous Epithelial Cell Urine 0-1 /HPF (0-5/HPF); WBC Urine 0-1/HPF (0-5/HPF)
[2019-01-24 19:01] LABS: Neutrophils Absolute Manual 13230 /uL (3000-5900); Total Cells Counted 100
[2019-01-24 19:03] LABS: Polychromasia 1+
[2019-01-24 19:06] LABS: CKMB % Relative Index 0.8 % (1.5-5.0); Creatine Kinase MB 4.27 ng/mL (<2.37)
[2019-01-24 19:16] LABS: Troponin I 0.158 ng/mL (0.01-0.034)
--- NOTE | 2019-01-24 19:24 | PM.EVENT ---
Event Note Date Patient Seen: 01/24/19 Event Note: I was called to bedside of Cristóbal Tubbs who is a 68-year-old male who presented for melena and was admitted for upper GI bleed secondary to duodenal ulcer thought to be NSAID and alcohol induced and overt alcohol withdrawal with DTs. The patient was obtunded and would not arouse to noxious stimuli. He was tachypneic in the 40s to 50s with an ABG that demonstrated respiratory acidosis without compensation. Call placed to ED physician, Dr. Rodriguez, who I requested that she evaluate patient for intubation. The patient was subsequently intubated and placed on propofol gtt for sedation. The patient has received over 9 units of PRBCs without significant melena, hematochezia, or hematemesis and without appropriate compensation of his hemoglobin and hematocrit. His initial hemoglobin was 4.8 and his highest hemoglobin has been 9.1. He had and endoscopy performed by Dr. Curran which demonstrated shallow duodenal ulcer without stigmata of bleeding. Discussed case with General surgery and overall we are not convinced that the GI tract is his clear source of his current blood loss. Concerned that patient may be having internal hemorrhage as he has not had significant melena, hematochezia, hematemesis. The patient has chronic kidney disease and his creatinine is elevated at 2.6. His baseline creatinine appears to be 1.6-2.2. Recommend CTA to assure that the patient does not have intra-abdominal bleed for which would undoubtedly propagate renal failure and possibility of temporary or permanent dialysis. Due to patient's longstanding alcohol dependence high probability of cirrhosis and risk of spontaneous bleed highly recommend higher level of care for multiple subspecialties including: Medical Technologist Microbiology/cardiothoracic icu rn, Gastroenterology, Nephrology, and General Medicine.
[2019-01-24] MEDS: INSULIN ASPART 100 UNIT/ML INSULN PEN SUBCUT (19:31)
[2019-01-24 19:34] LABS: HCO3 ABG 18 mmol/L (22-26); PCO2 ABG 27.5 mmHg (35-45); PO2 ABG 126 mmHg (80-100); TCO2 ABG 19 mmol/L (21-31); pH ABG 7.42 (7.35-7.45)
[2019-01-24 19:35] LABS: Fractionated Inspired Oxygen 0.35; Oxygen Saturation ABG 99 % (95-100)
[2019-01-24 19:39] LABS: Hematocrit 25.5 % (41-53)
[2019-01-24 19:41] LABS: Hemoglobin 8.6 g/dL (13.5-17.5)
[2019-01-24] MEDS: PIPERACILLIN-TAZO 2.25 GM/50 ML FROZ.PIGGY IV (19:58)
[2019-01-24] MEDS: fentaNYL 100 MCG/2 ML INJ 50 MCG IV ×2 (20:30→23:45)
[2019-01-24] MEDS: CALCIUM GLUCONATE 4.65 MEQ in SODIUM CHLORIDE 0.9% 50 ML 120 ML IV (20:32)
--- NOTE | 2019-01-24 21:14 | DI.CT.S_ITS ---
PROCEDURE: CT HEAD/BRAIN WO CON INDICATIONS: AMS, rule out ICH TECHNIQUE: Noncontrast 4.5 mm thick angled axial sections acquired from the foramen magnum to the vertex, with coronal and sagittal reformats. For radiation dose reduction, the following was used: automated exposure control, adjustment of mA and/or kV according to patient size. COMPARISON: [facility], CT, CT HEAD/BRAIN WO CON, 09/27/2018, 22:11. FINDINGS: Image quality: Excellent. CSF spaces: Basal cisterns are patent. No extra-axial fluid collections. The ventricles are enlarged, stable. Brain: No intracranial bleeds or masses. There is cerebral volume loss for age, with resultant ventricular and sulcal prominence. There are periventricular and deep white matter chronic small vessel ischemic changes. There is intracranial internal carotid artery atherosclerosis. Skull and face: Calvarium and visualized facial bones appear intact, without suspicious lesions. Status post left mastoidectomy. Opacification of the left middle ear. There is mild right maxillary sinus disease IMPRESSION: No acute intracranial process. Presumed ex vacuo dilatation of ventricles. Stable appearance since 09/27/18. Status post left mastoidectomy, with left middle ear opacification. Findings concordant with the preliminary study interpretation provided at the time of the exam. Dictated by: Stalin Champion M.D. on 01/25/2019 at 8:05 Approved by: Stalin Champion M.D. on 01/25/2019 at 8:21
--- NOTE | 2019-01-24 21:36 | DI.CT.S_ITS ---
PROCEDURE: CT ABDOMEN PELVIS WO CON INDICATIONS: GIB, Ileus, history diverticulosis, s/p colon resection TECHNIQUE: Noncontrast 5 mm thick sections acquired from the diaphragms to the symphysis. 5 mm coronal and sagittal reformats were then performed. For radiation dose reduction, the following was used: automated exposure control, adjustment of mA and/or kV according to patient size. COMPARISON: [facility], CT, CT ANGIO ABD AORTA RUNOFF, 06/13/2018, 12:59. FINDINGS: Image quality: There is metallic streak artifact from patient's surgical hardware in the lower thoracic spine. ABDOMEN: Lung bases: There is bibasilar atelectasis as well as peribronchial consolidation in the lower lobes. A small amount of dependent filling defect in the left mainstem bronchus likely represents mucous. The findings are suggestive of aspiration. Heart size is enlarged. Solid organs: Noncontrast evaluation of the liver demonstrates no focal hepatic lesions the gallbladder appears within normal limits without calcified gallstones. Pancreas is normal in contours. Spleen is normal in size. No adrenal nodules. The kidneys demonstrate no hydronephrosis. There is nonspecific perinephric stranding demonstrated bilaterally. There are 2 small foci of vascular calcifications in the right renal hilum. No definite renal stones. There is renal cortical thinning bilaterally. Peritoneum and bowel: There is an enteric tube extending into the region of the gastric antrum. Small and large bowel loops demonstrate normal wall thickness and caliber. As noted above, there is a mild caliber change associated with a herniated segment of small bowel in the left midabdomen. No definite abnormal bowel dilatation. No free fluid or air. Nodes and vessels: No retroperitoneal or mesenteric adenopathy by size criteria. Aorta and inferior vena cava are normal in caliber. Miscellaneous: There is a small left paracentral ventral abdominal hernia containing a short segment of small bowel. There is an associated mild caliber change with some distention of the small bowel distally. PELVIS: Genitourinary: There is a Wells catheter within a partially distended urinary bladder. There is gas in the bladder lumen likely from catheter placement. Concentric bladder wall thickening is demonstrated compatible with a nonspecific cystitis. Miscellaneous: No inguinal hernias or adenopathy. Bones: No suspicious bony lesions. There are postsurgical changes status post posterior fixation at T10-T12 with bilateral pedicle screws. No vertebral body compression fractures. IMPRESSION: 1. Small left paracentral ventral abdominal hernia containing a short segment of small bowel with mild associated caliber change. Although there is no abnormal distention of the small bowel proximal to the hernia, the findings are suggestive of a partial obstruction. 2. Concentric bladder wall thickening compatible with a nonspecific cystitis. Recommend correlation with urinalysis. Intraluminal gas in the bladder is likely related to Wells catheter placement. 3. Bibasilar peribronchial consolidation in the lower lobes with a small amount of dependent mucus in the left mainstem bronchus. The findings are suggestive of aspiration. Dictated by: Edgard Keller M.D. on 01/25/2019 at 9:40 Approved by: Edgard Keller M.D. on 01/25/2019 at 9:49
[2019-01-24] MEDS: INSULIN GLARGINE 100 UNIT/ML 3ML PEN 10 UNIT SUBCUT (22:23)
[2019-01-24] MEDS: PROPOFOL 1,000 MG/100 ML VIAL 3.57 MG IV (22:28)
[2019-01-24] MEDS: LINEZOLID 600 MG/300 ML IV.SOLN IV (22:29)
[2019-01-24 22:44] LABS: Hematocrit 24.8 % (41-53); Hemoglobin 8.5 g/dL (13.5-17.5); Mean Corpuscular HGB Conc 34.3 % (30-36); Mean Corpuscular Hemoglobin 30.4 PG (26-34); Mean Corpuscular Volume 88.7 fL (80-100); Platelet Count 192 X10^3/uL (150-400); Red Blood Cell Count 2.79 X10^6/uL (4.5-5.9); Red Cell Distribution Width 15.2 % (11.6-14.8); White Blood Cell Count 14.4 X10^3/uL (4.5-11.0)
[2019-01-24 23:07] LABS: Troponin I 0.195 ng/mL (0.01-0.034)
[2019-01-24 23:32] LABS: HCO3 ABG 18 mmol/L (22-26); Oxygen Saturation ABG 99 % (95-100); PCO2 ABG 26.6 mmHg (35-45); PO2 ABG 110 mmHg (80-100); TCO2 ABG 19 mmol/L (21-31); pH ABG 7.44 (7.35-7.45)
[2019-01-24 23:33] LABS: Fractionated Inspired Oxygen 30
--- NOTE | 2019-01-24 23:40 | PM.CN ---
History of Present Illness Consult details Date Patient Seen: 01/24/19 Time Patient Seen: 19:45 Chief complaint: SOB Reason for consult: Acute respiratory failure, status post intubation and ventilator management Requesting provider: Jim Quintana Narrative: Mr. Cristóbal Tubbs is a 68-year-old male who was admitted to the hospital on 01/22/2019 following presentation to the ER for sudden onset of shortness of breath, fatigue, diaphoresis and dizziness that is worse upon standing. The patient was reportedly a poor historian but did endorse worsening symptoms upon sitting and history of black stools. The patient was found to be guaiac positive. Patient has history of chronic pain and had been prescribed opiates which were abused in the setting of acute alcoholism. Patient was transition to aspirin and ibuprofen for chronic pain treatment. Per the medical record the patient has previously refused treatment for his alcohol dependence. The patient is found to be severely anemic with a hemoglobin of 4.8 and hematocrit of 14.7. The patient is admitted to Dr. Schaefer with an acute GI bleed believed to be related to peptic ulcer disease secondary to NSAID and aspirin use. Patient was admitted to the ICU and has had persistently low H&H and has been transfused a total of 9 units of packed RBCs. Chest x-rays taken for acute respiratory failure tachypnea in the 50s and hypoxemia revealing pulmonary edema. An ABG finds pH to be 7.20, pCO2 53, PO2 of 96, bicarb 21 on FiO2 0.21. The patient was given Lasix 40 mg IV x1. The hospitalist service was contacted for assistance that time and the patient was emergently intubated by Dr. Rodriguez emergency Department physician with a 7.5 ETT. A postprocedure chest x-ray was taken demonstrating the tip of the ET tube in the lower trachea at 23 cm at the lip. An ABG was drawn following intubation with ventilatory rate of 24 tidal volume 500, peep of 8 and FiO2 of 40%. At the settings he has a peak pressure of 25 with a mean airway pressure of 13. Patient is presently sedated and calm sedated on propofol.. Post intubation ABG reveals pH of 7.418, pCO2 27.5, PO2 of 126, bicarb of 17.8 and base excess of -7. Ventilator changes include decrease in the backup rate down to 22 and decrease in FiO2. We will continue to follow ABG and adjust ventilator parameters as needed. [facility] Medical History Alcoholism (Chronic) Anemia associated with chronic renal failure (Chronic) Chronic kidney disease, stage 4 (severe) (Chronic) Chronic pain (Chronic) Depression (Chronic) Diabetes type 2, controlled (Chronic) Duodenal ulcer (Acute) GI bleed (Resolved) Gout, arthropathy (Chronic) History of cervical fracture (Resolved) Hyperparathyroidism (Chronic) Hypertension (Chronic) Left leg pain (Chronic) Symptomatic anemia (Chronic) Surgical History H/O cervical spine surgery (Acute) History of colectomy (Resolved) Social History household members: friend(s) and other Smoking Status: Former smoker alcohol intake: current Comment: Advanced directive: The patient has an advanced directive on file dated 03/28/2018 which designates Adrien Wood to be the patient's surrogate decision maker. Meds Home Medications and Allergies Home Medications Medication Instructions Recorded Confirmed Type citalopram 20 mg PO DAILY 12/25/17 01/23/19 History glimepiride 1 mg PO DAILY 03/22/18 01/23/19 History doxazosin 4 mg PO BEDTIME 06/07/18 01/23/19 History acetaminophen 650 mg PO Q4HR PRN #100 tab 06/12/18 01/23/19 Rx furosemide 60 mg PO DAILY 09/27/18 01/23/19 History duloxetine 60 mg PO BID 09/28/18 01/23/19 History polyethylene glycol 3350 17 g PO DAILY PRN 09/28/18 01/23/19 History cyclobenzaprine 5 mg PO TID PRN #10 tab 11/10/18 01/23/19 Rx lorazepam 0.5 mg PO TID PRN 11/12/18 01/23/19 History silver sulfadiazine [SSD] 1 applic TOPICAL TID 11/12/18 01/23/19 History lidocaine 1 patch TOP DAILY #30 each 12/19/18 01/23/19 Rx Allergies Allergy/AdvReac Type Severity Reaction Status Date / Time latex Allergy Mild IRRITATION Verified 01/22/19 21:19 Sulfa (Sulfonamide AdvReac Mild N&V 1HOUR Verified 01/22/19 21:19 Antibiotics) AFTER RX, THINKS IT IS RELATED Review of Systems Review of Systems ROS Unobtainable: unobtainable due to mental condition (Discussed patient with Dr. Quintana, review medical record.) Exam Vital Signs (past 8 hours): - 01/24/19 17:15 01/24/19 17:26 01/24/19 17:30 Temperature 98.9 F Pulse Rate 96 H 96 H 95 H Respiratory Rate 24 Blood Pressure 160/73 H 157/71 H Pulse Oximetry 99 01/24/19 17:45 01/24/19 18:00 01/24/19 18:15 Temperature Pulse Rate 95 H 81 74 Respiratory Rate Blood Pressure Pulse Oximetry 100 100 99 01/24/19 18:21 01/24/19 18:30 01/24/19 18:45 Temperature Pulse Rate 70 70 67 Respiratory Rate Blood Pressure 133/67 136/59 L Pulse Oximetry 99 99 99 01/24/19 19:00 01/24/19 19:15 01/24/19 19:19 Temperature 98.8 F Pulse Rate 65 66 Respiratory Rate Blood Pressure 126/65 Pulse Oximetry 99 99 01/24/19 19:30 01/25/19 00:26 Temperature 98.2 F Pulse Rate 68 59 L Respiratory Rate 24 Blood Pressure 140/79 150/70 H Pulse Oximetry 99 99 Oxygen Delivery Method Mechanical Ventilation Oxygen Flow Rate 2 Narrative Exam Narrative: GENERAL APPEARANCE: well developed, obese male, sedated and mechanically ventilated. HEENT: Normocephalic, pupils 2.5 mm B/L and midline, conjunctiva clear, 7.5 oral ET tube, 23 cm at the lip, mucous membranes are moist and pink without lesions or exudate. NECK/THYROID: no visible JVD, no carotid bruit, no thyromegaly, trachea midline. SKIN: [place], warm and dry, open wounds left leg, 2x3cm, 2 smaller wounds 1.5 cm without drainage, swelling or redness. HEART: regular rate and rhythm, S1-S2, 1/6 systolic murmur, no rubs or gallops, brisk capillary refill, no edema LUNGS: BS clear but diminished bilaterally, no coarseness crackles or wheezing, no cough present. CHEST: Patient mechanically ventilated with symmetrical movement, breath sounds bilaterally chest x-ray with ET tube in lower trachea, patient not over breathing backup rate of ventilator. ABDOMEN: Soft, dull to percussion, ?fluid wave, no rigidity or guarding, no bowel tones present. EXTREMITIES: occasional spontaeous movements, no deformites, bilateral wrist restraints for safety NEUROLOGIC: Intubated and sedated. PSYCH: Patient sedated, calm. Objective Labs Result Diagrams: 01/24/19 22:13 01/24/19 18:30 Labs: Laboratory Results - last 24 hr 01/22/19 01/24/19 01/24/19 21:12 04:50 04:50 WBC 21.3 H D RBC 2.60 L Hgb 7.9 L Hct 22.8 L MCV 87.5 D MCH 30.2 MCHC 34.6 RDW 15.7 H Plt Count 212 Neut % (Auto) Not Reportable Lymph % (Auto) Not Reportable [place] % (Auto) Not Reportable Eos % (Auto) Not Reportable Baso % (Auto) Not Reportable Lymph # (Auto) Not Reportable [place] # (Auto) Not Reportable Baso # (Auto) Not Reportable Total Counted 100 Seg Neutrophils % 79.0 H Band Neutrophils % 5.0 Lymphocytes % (Manual) 7.0 L Monocytes % (Manual) 8.0 Metamyelocytes % 1.0 H Myelocytes % Neutrophils # (Manual) 37917 H RBC Morphology See below Polychromasia 1+ H Basophilic Stippling 1+ H Anisocytosis 1+ H PT 12.0 INR 1.0 APTT 32 ABG pH ABG pCO2 ABG pO2 ABG HCO3 ABG Total CO2 ABG O2 Saturation ABG Base Excess FiO2 Sodium Potassium Chloride Carbon Dioxide BUN Creatinine Estimated GFR BUN/Creatinine Ratio Glucose Lactate Calcium Magnesium Total Bilirubin AST ALT Alkaline Phosphatase Total Creatine Kinase CK-MB (CK-2) CK-MB (CK-2) Rel Index Troponin I Total Protein Albumin Globulin Albumin/Globulin Ratio Urine Color Urine Appearance Urine pH Ur Specific [place] Urine Protein Urine Glucose (UA) Urine Ketones Urine Occult Blood Urine Nitrate Urine Bilirubin Urine Urobilinogen Ur Leukocyte Esterase Urine RBC Urine WBC Ur Squamous Epith Cells Amorphous Sediment Urine Bacteria Ur Culture Indicated? Blood Type O Positive Antibody Screen Negative Crossmatch See Detail 01/24/19 01/24/19 01/24/19 04:50 10:25 10:25 WBC RBC Hgb Hct MCV MCH MCHC RDW Plt Count Neut % (Auto) Lymph % (Auto) [place] % (Auto) Eos % (Auto) Baso % (Auto) Lymph # (Auto) [place] # (Auto) Baso # (Auto) Total Counted Seg Neutrophils % Band Neutrophils % Lymphocytes % (Manual) Monocytes % (Manual) Metamyelocytes % Myelocytes % Neutrophils # (Manual) RBC Morphology Polychromasia Basophilic Stippling Anisocytosis PT INR APTT ABG pH ABG pCO2 ABG pO2 ABG HCO3 ABG Total CO2 ABG O2 Saturation ABG Base Excess FiO2 Sodium 144 Potassium 4.3 Chloride 114 H Carbon Dioxide 21 L BUN 102 H Creatinine 2.60 H Estimated GFR 24.7 L BUN/Creatinine Ratio 39.2 H Glucose 252 H Lactate 1.0 Calcium 7.6 L Magnesium Total Bilirubin AST ALT Alkaline Phosphatase Total Creatine Kinase CK-MB (CK-2) CK-MB (CK-2) Rel Index Troponin I 0.038 H 0.085 H Total Protein Albumin Globulin Albumin/Globulin Ratio Urine Color Urine Appearance Urine pH Ur Specific [place] Urine Protein Urine Glucose (UA) Urine Ketones Urine Occult Blood Urine Nitrate Urine Bilirubin Urine Urobilinogen Ur Leukocyte Esterase Urine RBC Urine WBC Ur Squamous Epith Cells Amorphous Sediment Urine Bacteria Ur Culture Indicated? Blood Type Antibody Screen Crossmatch 01/24/19 01/24/19 01/24/19 15:52 16:00 18:18 WBC 18.8 H RBC 2.99 L Hgb 9.1 L Hct 27.0 L MCV 90.3 MCH 30.4 MCHC 33.7 RDW 15.5 H Plt Count 207 Neut % (Auto) Lymph % (Auto) [place] % (Auto) Eos % (Auto) Baso % (Auto) Lymph # (Auto) [place] # (Auto) Baso # (Auto) Total Counted Seg Neutrophils % Band Neutrophils % Lymphocytes % (Manual) Monocytes % (Manual) Metamyelocytes % Myelocytes % Neutrophils # (Manual) RBC Morphology Polychromasia Basophilic Stippling Anisocytosis PT INR APTT ABG pH 7.20 L* ABG pCO2 53.2 H ABG pO2 96 ABG HCO3 21 L ABG Total CO2 22 ABG O2 Saturation 95 ABG Base Excess -7.0 L FiO2 0.21 Sodium Potassium Chloride Carbon Dioxide BUN Creatinine Estimated GFR BUN/Creatinine Ratio Glucose Lactate Calcium Magnesium Total Bilirubin AST ALT Alkaline Phosphatase Total Creatine Kinase CK-MB (CK-2) CK-MB (CK-2) Rel Index Troponin I 0.162 H* Total Protein Albumin Globulin Albumin/Globulin Ratio Urine Color Urine Appearance Urine pH Ur Specific [place] Urine Protein Urine Glucose (UA) Urine Ketones Urine Occult Blood Urine Nitrate Urine Bilirubin Urine Urobilinogen Ur Leukocyte Esterase Urine RBC Urine WBC Ur Squamous Epith Cells Amorphous Sediment Urine Bacteria Ur Culture Indicated? Blood Type Antibody Screen Crossmatch 01/24/19 01/24/19 01/24/19 18:30 18:30 18:30 WBC 14.7 H RBC 2.81 L Hgb 8.5 L Hct 25.2 L MCV 89.6 MCH 30.3 MCHC 33.8 RDW 15.2 H Plt Count 191 Neut % (Auto) Not Reportable Lymph % (Auto) Not Reportable [place] % (Auto) Not Reportable Eos % (Auto) Not Reportable Baso % (Auto) Not Reportable Lymph # (Auto) Not Reportable [place] # (Auto) Not Reportable Baso # (Auto) Not Reportable Total Counted 100 Seg Neutrophils % 85.0 H Band Neutrophils % 5.0 Lymphocytes % (Manual) 5.0 L Monocytes % (Manual) 3.0 Metamyelocytes % Myelocytes % 2.0 H Neutrophils # (Manual) 78775 H RBC Morphology See below Polychromasia 1+ H Basophilic Stippling Anisocytosis PT INR APTT ABG pH ABG pCO2 ABG pO2 ABG HCO3 ABG Total CO2 ABG O2 Saturation ABG Base Excess FiO2 Sodium 143 Potassium 4.4 Chloride 113 H Carbon Dioxide 20 L BUN 88 H Creatinine 2.60 H Estimated GFR 24.7 L BUN/Creatinine Ratio 33.8 H Glucose 299 H Lactate 0.8 Calcium 7.1 L Magnesium 1.9 Total Bilirubin 0.5 AST 25 ALT 9 Alkaline Phosphatase 62 Total Creatine Kinase 556 H D CK-MB (CK-2) 4.27 H CK-MB (CK-2) Rel Index 0.8 L Troponin I 0.158 H* Total Protein 5.4 L Albumin 2.9 L Globulin 2.5 Albumin/Globulin Ratio 1.2 Urine Color Urine Appearance Urine pH Ur Specific [place] Urine Protein Urine Glucose (UA) Urine Ketones Urine Occult Blood Urine Nitrate Urine Bilirubin Urine Urobilinogen Ur Leukocyte Esterase Urine RBC Urine WBC Ur Squamous Epith Cells Amorphous Sediment Urine Bacteria Ur Culture Indicated? Blood Type Antibody Screen Crossmatch 01/24/19 01/24/19 01/24/19 18:45 19:08 19:35 WBC RBC Hgb 8.6 L Hct 25.5 L MCV MCH MCHC RDW Plt Count Neut % (Auto) Lymph % (Auto) [place] % (Auto) Eos % (Auto) Baso % (Auto) Lymph # (Auto) [place] # (Auto) Baso # (Auto) Total Counted Seg Neutrophils % Band Neutrophils % Lymphocytes % (Manual) Monocytes % (Manual) Metamyelocytes % Myelocytes % Neutrophils # (Manual) RBC Morphology Polychromasia Basophilic Stippling Anisocytosis PT INR APTT ABG pH 7.42 ABG pCO2 27.5 L ABG pO2 126 H ABG HCO3 18 L ABG Total CO2 19 L ABG O2 Saturation 99 ABG Base Excess -7.0 L FiO2 0.35 Sodium Potassium Chloride Carbon Dioxide BUN Creatinine Estimated GFR BUN/Creatinine Ratio Glucose Lactate Calcium Magnesium Total Bilirubin AST ALT Alkaline Phosphatase Total Creatine Kinase CK-MB (CK-2) CK-MB (CK-2) Rel Index Troponin I Total Protein Albumin Globulin Albumin/Globulin Ratio Urine Color Yellow Urine Appearance Clear Urine pH 5.0 Ur Specific [place] <=1.005 Urine Protein Negative Urine Glucose (UA) Negative Urine Ketones Negative Urine Occult Blood 3+ H Urine Nitrate Negative Urine Bilirubin Negative Urine Urobilinogen 0.2 Ur Leukocyte Esterase Negative Urine RBC 1-5/hpf Urine WBC 0-1/hpf Ur Squamous Epith Cells 0-1 /hpf Amorphous Sediment 1+ Urine Bacteria None seen Ur Culture Indicated? Cult not indicated Blood Type Antibody Screen Crossmatch 01/24/19 01/24/19 01/24/19 22:13 22:13 22:45 WBC 14.4 H RBC 2.79 L Hgb 8.5 L Hct 24.8 L MCV 88.7 MCH 30.4 MCHC 34.3 RDW 15.2 H Plt Count 192 Neut % (Auto) Lymph % (Auto) [place] % (Auto) Eos % (Auto) Baso % (Auto) Lymph # (Auto) [place] # (Auto) Baso # (Auto) Total Counted Seg Neutrophils % Band Neutrophils % Lymphocytes % (Manual) Monocytes % (Manual) Metamyelocytes % Myelocytes % Neutrophils # (Manual) RBC Morphology Polychromasia Basophilic Stippling Anisocytosis PT INR APTT ABG pH 7.44 ABG pCO2 26.6 L ABG pO2 110 H ABG HCO3 18 L ABG Total CO2 19 L ABG O2 Saturation 99 ABG Base Excess -6.0 L FiO2 30 Sodium Potassium Chloride Carbon Dioxide BUN Creatinine Estimated GFR BUN/Creatinine Ratio Glucose Lactate Calcium Magnesium Total Bilirubin AST ALT Alkaline Phosphatase Total Creatine Kinase CK-MB (CK-2) CK-MB (CK-2) Rel Index Troponin I 0.195 H* Total Protein Albumin Globulin Albumin/Globulin Ratio Urine Color Urine Appearance Urine pH Ur Specific [place] Urine Protein Urine Glucose (UA) Urine Ketones Urine Occult Blood Urine Nitrate Urine Bilirubin Urine Urobilinogen Ur Leukocyte Esterase Urine RBC Urine WBC Ur Squamous Epith Cells Amorphous Sediment Urine Bacteria Ur Culture Indicated? Blood Type Antibody Screen Crossmatch Assessment & Plan Assessment & Plan narrative: 1. Acute hypercarbic respiratory failure, active -patient is status post transfusion 9 units PRBCs. Progressive respiratory difficulty becoming tachypneic hypoxemic. -chest x-ray finds pulmonary edema, ABG obtained finding pH 7.20, pCO2 53, PO2 96, bicarbonate 21 on room air, patient received Lasix 40 mg IV x1 -intubated with a 7.5 ET tube but 23 cm at the lip, breath sounds are equal bilateral on auscultation, chest x-ray finds tip of ET tube in the lower trachea. Follow-up ABG with pH 7.42, pCO2 27.5, PO2 126, bicarb of 18, base excess of -7, FiO2 0.35. -ventilator management: Will decrease ventilator rate and minute volume to maintain pCO2 30-35 to compensate for metabolic acidosis. Oxygen is titrated to 30% with SpO2 98-99%. Will obtain repeat ABG in the morning. -maintain sedation with propofol and titrate to a RASS score of 2, analgesia with fentanyl 50 mcg every hour as needed. -will limit total IV fluids to 100 cc/hour due to renal failure and prior pulmonary edema. 2. Acute blood loss anemia, currently bleeding of unknown source, active -believed to be related to peptic ulcer disease secondary to NSAID and ASA use. -patient has received 9 units total packed cells, most recent hemoglobin is 8.6. -EGD was performed by Dr. Curran with identification of superficial duodenal ulcer, patient is on pantoprazole infusion. -no rectal bleeding, now with ileus, most likely sequestered blood loss within the intestine. -unable to perform CT scan with contrast due to stage IV renal failure. -concern remains for intra-abdominal bleed, patient is febrile with elevated white count, antibiotic therapy with cefepime, linezolid and metronidazole. -the patient is currently being considered a candidate for transfer to [facility] to obtain the study with dialysis available. Currently pending call back. 3. Alcohol dependence, in acute withdrawal, active. -patient has been treated with lorazepam by [facility] protocol. -the patient has received high doses of lorazepam likely precipitating problem 1 with presentation with hypercarbia likely secondary to respiratory depression. -patient previously very agitated with altered mental status, will obtain a noncontrast head CT to rule out intracranial hemorrhage. -patient is presently intubated on propofol infusion, resting quietly. -re-evaluate care plan pending resolution of GI bleeding. 4. Acute on Chronic kidney disease stage IV, active. -patient with prior impaired renal function with creatinine levels ranging from 1.5 to 2.2. Creatinine on admission is 2.4 increased to 2.6. -chronic disease likely secondary to diabetes with acute renal injury related to acute anemia. -will minimize renal toxic agents and renally dose medications as needed. 5. Diabetes type 2, insulin dependent, controlled, active. -last hemoglobin A1c was 6.4 on 11/11/2018 -blood sugars are elevated last blood sugar today was 299 and patient is currently treated with correctional insulin medium scale. -order glargine 10 units at bedtime. -continue Accu-Cheks every 6 hours and treat with medium correctional scale. 6. Elevated troponin, type 2 SC, active -patient with demand ischemia secondary to anemia. -troponin at 10:25 a.m-0.085, 4:00 p.m.-0.162, 6:30 p.m.-0.158 and at 10:00 p.m. 0.195. -at this time hemoglobin appears stable will continue to monitor H&H to maximize cardiac perfusion. Sedation will reduce cardiac demand. -will continue to trend troponins. Thank you for allowing us to participate in the care of this gentleman. We will continue to follow and assist with care and ventilation management. Critical care time: 1 hours spent in direct evaluation of patient speaking with providers reviewing data and speaking with family and patient reassessment. Time Spent With Patient Time with patient: Greater than 35 minutes
[2019-01-25] VITALS (23 sets, daily range): BP systolic 127–167; BP diastolic 58–77; PULSE 50–61; RESP 15–20; TEMP 36.3–36.9; O2SAT 96–100
[2019-01-25] MEDS: INSULIN ASPART 100 UNIT/ML INSULN PEN SUBCUT ×3 (00:15→12:05)
[2019-01-25] MEDS: SODIUM CHLORIDE 0.45% 1,000 ML 44 ML IV ×2 (00:34→14:23)
[2019-01-25] MEDS: HYDROMORPHONE 2 MG INJ 1 MG IV ×3 (00:59→09:31)
--- NOTE | 2019-01-25 02:03 | PC.NURSE ---
Pt. was repositioned around 0100 am with max assist, abdominal girth measured with a result of 50 1/2 inches. Abdomen is large, distended but soft and no bowel tones heard. NGT to LIS with very mininal greenish liquid output. Pt. remains on vent support, will continue to monitor.
--- NOTE | 2019-01-25 03:43 | PC.NURSE ---
Profopol gtt has been at 20mcg/kg/min since assuming pt's. care.
[2019-01-25 04:25] LABS: Add Manual Diff / Slide Review NO; Basophils Absolute Auto 0 /uL (0-100); Basophils Percent Auto 0.2 % (0-2); Eosinophils Absolute Auto 0 /uL (0-450); Eosinophils Percent Auto 0.2 % (2-4); Hematocrit 23.7 % (41-53); Hemoglobin 8.1 g/dL (13.5-17.5); Lymphocytes Absolute Auto 800 /uL (1100-4500); Lymphocytes Percent Auto 5.9 % (25-40); Mean Corpuscular HGB Conc 34.1 % (30-36); Mean Corpuscular Volume 87.9 fL (80-100); Monocytes Absolute Auto 1000 /uL (0-900); Monocytes Percent Auto 7.8 % (3-14); Neutrophils Absolute Auto 11000 /uL (1500-7000); Neutrophils Percent Auto 85.9 % (50-75); Platelet Count 181 X10^3/uL (150-400); Red Blood Cell Count 2.69 X10^6/uL (4.5-5.9); Red Cell Distribution Width 15.6 % (11.6-14.8); White Blood Cell Count 12.8 X10^3/uL (4.5-11.0)
[2019-01-25 04:31] LABS: Alanine Aminotransferase 9 IU/L (<50); Albumin 2.8 g/dL (3.5-5.0); Albumin Globulin Ratio 1.2 (1.0-2.8); Alkaline Phosphatase 61 U/L (38-126); Aspartate Aminotransferase 21 IU/L (17-59); BUN Creatinine Ratio 31.9 (6-22); Bilirubin Total 0.4 mg/dL (0.2-1.3); Blood Urea Nitrogen 83 mg/dL (9-20); Calcium 7.6 mg/dL (8.4-10.2); Carbon Dioxide 21 mmol/L (22-32); Chloride 115 mmol/L (98-107); Estimated Glomerular Filt Rate 24.7 mL/min (>60); Globulin 2.4 g/dL (1.7-4.1); Glucose 267 mg/dL (80-110); HEMOLYSIS < 15 (0-50); Potassium 3.4 mmol/L (3.4-5.1); Sodium 143 mmol/L (137-145); Total Protein 5.2 g/dL (6.3-8.2)
[2019-01-25 04:45] LABS: Troponin I 0.184 ng/mL (0.01-0.034)
[2019-01-25 05:21] LABS: Fractionated Inspired Oxygen 25; Oxygen Saturation ABG 98 % (95-100); PO2 ABG 97 mmHg (80-100); TCO2 ABG 19 mmol/L (21-31); pH ABG 7.45 (7.35-7.45)
[2019-01-25] MEDS: PROPOFOL 1,000 MG/100 ML VIAL 14.28 MG IV ×2 (05:23→05:47)
[2019-01-25] MEDS: metroNIDAZOLE 500 MG/100 ML PIGGYBACK 100 MG IV ×2 (05:23→12:38)
[2019-01-25] MEDS: PANTOPRAZOLE 80 MG in SODIUM CHLORIDE 0.9% 100 ML 10 ML IV ×2 (05:25→14:22)
--- NOTE | 2019-01-25 05:55 | PC.NURSE ---
Weight this am includes 6 extra pillows.
[2019-01-25 07:10] LABS: Add Manual Diff / Slide Review NO; Basophils Absolute Auto 0 /uL (0-100); Basophils Percent Auto 0.2 % (0-2); Eosinophils Absolute Auto 100 /uL (0-450); Eosinophils Percent Auto 0.5 % (2-4); Hematocrit 23.9 % (41-53); Lymphocytes Absolute Auto 900 /uL (1100-4500); Lymphocytes Percent Auto 7.3 % (25-40); Mean Corpuscular HGB Conc 33.7 % (30-36); Mean Corpuscular Hemoglobin 29.9 PG (26-34); Mean Corpuscular Volume 88.8 fL (80-100); Monocytes Absolute Auto 1000 /uL (0-900); Monocytes Percent Auto 8.2 % (3-14); Neutrophils Absolute Auto 10000 /uL (1500-7000); Neutrophils Percent Auto 83.8 % (50-75); Platelet Count 174 X10^3/uL (150-400); Red Blood Cell Count 2.69 X10^6/uL (4.5-5.9); Red Cell Distribution Width 15.6 % (11.6-14.8); White Blood Cell Count 11.9 X10^3/uL (4.5-11.0)
[2019-01-25 07:20] LABS: Alanine Aminotransferase 9 IU/L (<50); Albumin 2.7 g/dL (3.5-5.0); Albumin Globulin Ratio 1.1 (1.0-2.8); Alkaline Phosphatase 61 U/L (38-126); Aspartate Aminotransferase 21 IU/L (17-59); BUN Creatinine Ratio 31.9 (6-22); Bilirubin Total 0.4 mg/dL (0.2-1.3); Blood Urea Nitrogen 83 mg/dL (9-20); Calcium 7.5 mg/dL (8.4-10.2); Carbon Dioxide 21 mmol/L (22-32); Chloride 117 mmol/L (98-107); Estimated Glomerular Filt Rate 24.7 mL/min (>60); Globulin 2.5 g/dL (1.7-4.1); Glucose 245 mg/dL (80-110); HEMOLYSIS < 15 (0-50); Potassium 3.4 mmol/L (3.4-5.1); Sodium 146 mmol/L (137-145); Total Protein 5.2 g/dL (6.3-8.2)
--- NOTE | 2019-01-25 08:33 | PM.PN.1 ---
Subjective Subjective Date Patient Seen: 01/25/19 Time Patient Seen: 08:02 Interval history: Patient with dear and many problems still here this morning because unable to find transfer location for advanced level of care. None of the local hospitals [facility] have a bed available and Sarah raymond felt that they did not have anything to offer above what we were doing here given his lab evolution through the night continues on ventilator with normal pH and slightly improved oxygenation but still has the underlying problems probable fluid overload possible infection cardiac injury probably demand with poor renal function chronically and significant anemia worsened by GI bleed. Crit has dropped this morning down to 23. [facility] research food technologist recommended keeping the crit at 26. Patient has not had any significant visible bloody out through NG tube or past below through:. As noncontrast CT scan to avoid insulting kidney function did not show clear mass or structural abnormality This morning hematocrit is a little bit lower glucose is high will increase his alk rhythm for his glucose management. Renal function has stayed stable potassium is borderline will watch that closely. IA a to my getting him him a little more Lasix given how his x-ray looked yesterday and I think improving his hematocrit a little bit would provide better oxygen delivery to kidney, cardiac perfusion Very much appreciate assistance managing this patient hospitalist and surgical evaluations through the evening and night last night Wonder about echocardiogram today will review with the hospitalist Exam Vital Signs (past 8 hours): - 01/25/19 01:10 01/25/19 02:00 01/25/19 03:00 Temperature Pulse Rate 61 57 L 54 L Respiratory Rate 20 20 20 Blood Pressure 152/66 H 144/65 H 148/63 H Pulse Oximetry 98 98 98 01/25/19 04:00 01/25/19 05:00 01/25/19 06:00 Temperature 98.5 F Pulse Rate 57 L 57 L 56 L Respiratory Rate 20 15 15 Blood Pressure 148/62 H 140/63 138/61 Pulse Oximetry 99 96 96 01/25/19 07:00 01/25/19 08:00 Temperature 97.8 F Pulse Rate 56 L 56 L Respiratory Rate 16 16 Blood Pressure 134/65 137/66 Pulse Oximetry 97 98 Oxygen Delivery Method Mechanical Ventilation Oxygen Flow Rate 0 Narrative Exam Narrative: Patient resting comfortably sedated vital signs seem to be stable with good oxygenation his blood gas. No appearance of blood Sedated and unresponsive per vent protocol Lungs with good air movement and patient with good oxygenation Heart rate in good control slight murmur heard patient is a long history of dependent edema which is present Abdomen is significantly obese but soft no focal rigidity noted or palpable mass Neuro patient unresponsive with sedation Left lower extremity with nonhealing wound no increase swelling there are significant changes from his chronic state for wound healing Objective Labs Result Diagrams: 01/25/19 06:58 01/25/19 06:58 Labs: Laboratory Results - last 24 hr 01/22/19 01/24/19 01/24/19 21:12 10:25 10:25 WBC RBC Hgb Hct MCV MCH MCHC RDW Plt Count Neut % (Auto) Lymph % (Auto) [place] % (Auto) Eos % (Auto) Baso % (Auto) Neut # (Auto) Lymph # (Auto) [place] # (Auto) Eos # (Auto) Baso # (Auto) Total Counted Seg Neutrophils % Band Neutrophils % Lymphocytes % (Manual) Monocytes % (Manual) Myelocytes % Neutrophils # (Manual) RBC Morphology Polychromasia ABG pH ABG pCO2 ABG pO2 ABG HCO3 ABG Total CO2 ABG O2 Saturation ABG Base Excess FiO2 Sodium Potassium Chloride Carbon Dioxide BUN Creatinine Estimated GFR BUN/Creatinine Ratio Glucose Lactate 1.0 Calcium Magnesium Total Bilirubin AST ALT Alkaline Phosphatase Total Creatine Kinase CK-MB (CK-2) CK-MB (CK-2) Rel Index Troponin I 0.085 H Total Protein Albumin Globulin Albumin/Globulin Ratio Urine Color Urine Appearance Urine pH Ur Specific [place] Urine Protein Urine Glucose (UA) Urine Ketones Urine Occult Blood Urine Nitrate Urine Bilirubin Urine Urobilinogen Ur Leukocyte Esterase Urine RBC Urine WBC Ur Squamous Epith Cells Amorphous Sediment Urine Bacteria Ur Culture Indicated? Blood Type O Positive Antibody Screen Negative Crossmatch See Detail 01/24/19 01/24/19 01/24/19 15:52 16:00 18:18 WBC 18.8 H RBC 2.99 L Hgb 9.1 L Hct 27.0 L MCV 90.3 MCH 30.4 MCHC 33.7 RDW 15.5 H Plt Count 207 Neut % (Auto) Lymph % (Auto) [place] % (Auto) Eos % (Auto) Baso % (Auto) Neut # (Auto) Lymph # (Auto) [place] # (Auto) Eos # (Auto) Baso # (Auto) Total Counted Seg Neutrophils % Band Neutrophils % Lymphocytes % (Manual) Monocytes % (Manual) Myelocytes % Neutrophils # (Manual) RBC Morphology Polychromasia ABG pH 7.20 L* ABG pCO2 53.2 H ABG pO2 96 ABG HCO3 21 L ABG Total CO2 22 ABG O2 Saturation 95 ABG Base Excess -7.0 L FiO2 0.21 Sodium Potassium Chloride Carbon Dioxide BUN Creatinine Estimated GFR BUN/Creatinine Ratio Glucose Lactate Calcium Magnesium Total Bilirubin AST ALT Alkaline Phosphatase Total Creatine Kinase CK-MB (CK-2) CK-MB (CK-2) Rel Index Troponin I 0.162 H* Total Protein Albumin Globulin Albumin/Globulin Ratio Urine Color Urine Appearance Urine pH Ur Specific [place] Urine Protein Urine Glucose (UA) Urine Ketones Urine Occult Blood Urine Nitrate Urine Bilirubin Urine Urobilinogen Ur Leukocyte Esterase Urine RBC Urine WBC Ur Squamous Epith Cells Amorphous Sediment Urine Bacteria Ur Culture Indicated? Blood Type Antibody Screen Crossmatch 01/24/19 01/24/19 01/24/19 18:30 18:30 18:30 WBC 14.7 H RBC 2.81 L Hgb 8.5 L Hct 25.2 L MCV 89.6 MCH 30.3 MCHC 33.8 RDW 15.2 H Plt Count 191 Neut % (Auto) Not Reportable Lymph % (Auto) Not Reportable [place] % (Auto) Not Reportable Eos % (Auto) Not Reportable Baso % (Auto) Not Reportable Neut # (Auto) Lymph # (Auto) Not Reportable [place] # (Auto) Not Reportable Eos # (Auto) Baso # (Auto) Not Reportable Total Counted 100 Seg Neutrophils % 85.0 H Band Neutrophils % 5.0 Lymphocytes % (Manual) 5.0 L Monocytes % (Manual) 3.0 Myelocytes % 2.0 H Neutrophils # (Manual) 66766 H RBC Morphology See below Polychromasia 1+ H ABG pH ABG pCO2 ABG pO2 ABG HCO3 ABG Total CO2 ABG O2 Saturation ABG Base Excess FiO2 Sodium 143 Potassium 4.4 Chloride 113 H Carbon Dioxide 20 L BUN 88 H Creatinine 2.60 H Estimated GFR 24.7 L BUN/Creatinine Ratio 33.8 H Glucose 299 H Lactate 0.8 Calcium 7.1 L Magnesium 1.9 Total Bilirubin 0.5 AST 25 ALT 9 Alkaline Phosphatase 62 Total Creatine Kinase 556 H D CK-MB (CK-2) 4.27 H CK-MB (CK-2) Rel Index 0.8 L Troponin I 0.158 H* Total Protein 5.4 L Albumin 2.9 L Globulin 2.5 Albumin/Globulin Ratio 1.2 Urine Color Urine Appearance Urine pH Ur Specific [place] Urine Protein Urine Glucose (UA) Urine Ketones Urine Occult Blood Urine Nitrate Urine Bilirubin Urine Urobilinogen Ur Leukocyte Esterase Urine RBC Urine WBC Ur Squamous Epith Cells Amorphous Sediment Urine Bacteria Ur Culture Indicated? Blood Type Antibody Screen Crossmatch 01/24/19 01/24/19 01/24/19 18:45 19:08 19:35 WBC RBC Hgb 8.6 L Hct 25.5 L MCV MCH MCHC RDW Plt Count Neut % (Auto) Lymph % (Auto) [place] % (Auto) Eos % (Auto) Baso % (Auto) Neut # (Auto) Lymph # (Auto) [place] # (Auto) Eos # (Auto) Baso # (Auto) Total Counted Seg Neutrophils % Band Neutrophils % Lymphocytes % (Manual) Monocytes % (Manual) Myelocytes % Neutrophils # (Manual) RBC Morphology Polychromasia ABG pH 7.42 ABG pCO2 27.5 L ABG pO2 126 H ABG HCO3 18 L ABG Total CO2 19 L ABG O2 Saturation 99 ABG Base Excess -7.0 L FiO2 0.35 Sodium Potassium Chloride Carbon Dioxide BUN Creatinine Estimated GFR BUN/Creatinine Ratio Glucose Lactate Calcium Magnesium Total Bilirubin AST ALT Alkaline Phosphatase Total Creatine Kinase CK-MB (CK-2) CK-MB (CK-2) Rel Index Troponin I Total Protein Albumin Globulin Albumin/Globulin Ratio Urine Color Yellow Urine Appearance Clear Urine pH 5.0 Ur Specific [place] <=1.005 Urine Protein Negative Urine Glucose (UA) Negative Urine Ketones Negative Urine Occult Blood 3+ H Urine Nitrate Negative Urine Bilirubin Negative Urine Urobilinogen 0.2 Ur Leukocyte Esterase Negative Urine RBC 1-5/hpf Urine WBC 0-1/hpf Ur Squamous Epith Cells 0-1 /hpf Amorphous Sediment 1+ Urine Bacteria None seen Ur Culture Indicated? Cult not indicated Blood Type Antibody Screen Crossmatch 01/24/19 01/24/19 01/24/19 22:13 22:13 22:45 WBC 14.4 H RBC 2.79 L Hgb 8.5 L Hct 24.8 L MCV 88.7 MCH 30.4 MCHC 34.3 RDW 15.2 H Plt Count 192 Neut % (Auto) Lymph % (Auto) [place] % (Auto) Eos % (Auto) Baso % (Auto) Neut # (Auto) Lymph # (Auto) [place] # (Auto) Eos # (Auto) Baso # (Auto) Total Counted Seg Neutrophils % Band Neutrophils % Lymphocytes % (Manual) Monocytes % (Manual) Myelocytes % Neutrophils # (Manual) RBC Morphology Polychromasia ABG pH 7.44 ABG pCO2 26.6 L ABG pO2 110 H ABG HCO3 18 L ABG Total CO2 19 L ABG O2 Saturation 99 ABG Base Excess -6.0 L FiO2 30 Sodium Potassium Chloride Carbon Dioxide BUN Creatinine Estimated GFR BUN/Creatinine Ratio Glucose Lactate Calcium Magnesium Total Bilirubin AST ALT Alkaline Phosphatase Total Creatine Kinase CK-MB (CK-2) CK-MB (CK-2) Rel Index Troponin I 0.195 H* Total Protein Albumin Globulin Albumin/Globulin Ratio Urine Color Urine Appearance Urine pH Ur Specific [place] Urine Protein Urine Glucose (UA) Urine Ketones Urine Occult Blood Urine Nitrate Urine Bilirubin Urine Urobilinogen Ur Leukocyte Esterase Urine RBC Urine WBC Ur Squamous Epith Cells Amorphous Sediment Urine Bacteria Ur Culture Indicated? Blood Type Antibody Screen Crossmatch 01/25/19 01/25/19 01/25/19 03:58 03:58 04:30 WBC 12.8 H RBC 2.69 L Hgb 8.1 L Hct 23.7 L MCV 87.9 MCH 30.0 MCHC 34.1 RDW 15.6 H Plt Count 181 Neut % (Auto) 85.9 H Lymph % (Auto) 5.9 L [place] % (Auto) 7.8 Eos % (Auto) 0.2 L Baso % (Auto) 0.2 Neut # (Auto) 14285 H Lymph # (Auto) 800 L [place] # (Auto) 1000 H Eos # (Auto) 0 Baso # (Auto) 0 Total Counted Seg Neutrophils % Band Neutrophils % Lymphocytes % (Manual) Monocytes % (Manual) Myelocytes % Neutrophils # (Manual) RBC Morphology Polychromasia ABG pH 7.45 ABG pCO2 26.0 L ABG pO2 97 ABG HCO3 20 L ABG Total CO2 19 L ABG O2 Saturation 98 ABG Base Excess -6.0 L FiO2 25 Sodium 143 Potassium 3.4 Chloride 115 H Carbon Dioxide 21 L BUN 83 H Creatinine 2.60 H Estimated GFR 24.7 L BUN/Creatinine Ratio 31.9 H Glucose 267 H Lactate Calcium 7.6 L Magnesium Total Bilirubin 0.4 AST 21 ALT 9 Alkaline Phosphatase 61 Total Creatine Kinase CK-MB (CK-2) CK-MB (CK-2) Rel Index Troponin I 0.184 H* Total Protein 5.2 L Albumin 2.8 L Globulin 2.4 Albumin/Globulin Ratio 1.2 Urine Color Urine Appearance Urine pH Ur Specific [place] Urine Protein Urine Glucose (UA) Urine Ketones Urine Occult Blood Urine Nitrate Urine Bilirubin Urine Urobilinogen Ur Leukocyte Esterase Urine RBC Urine WBC Ur Squamous Epith Cells Amorphous Sediment Urine Bacteria Ur Culture Indicated? Blood Type Antibody Screen Crossmatch 01/25/19 01/25/19 06:58 06:58 WBC 11.9 H RBC 2.69 L Hgb 8.0 L Hct 23.9 L MCV 88.8 MCH 29.9 MCHC 33.7 RDW 15.6 H Plt Count 174 Neut % (Auto) 83.8 H Lymph % (Auto) 7.3 L [place] % (Auto) 8.2 Eos % (Auto) 0.5 L Baso % (Auto) 0.2 Neut # (Auto) 31937 H Lymph # (Auto) 900 L [place] # (Auto) 1000 H Eos # (Auto) 100 Baso # (Auto) 0 Total Counted Seg Neutrophils % Band Neutrophils % Lymphocytes % (Manual) Monocytes % (Manual) Myelocytes % Neutrophils # (Manual) RBC Morphology Polychromasia ABG pH ABG pCO2 ABG pO2 ABG HCO3 ABG Total CO2 ABG O2 Saturation ABG Base Excess FiO2 Sodium 146 H Potassium 3.4 Chloride 117 H Carbon Dioxide 21 L BUN 83 H Creatinine 2.60 H Estimated GFR 24.7 L BUN/Creatinine Ratio 31.9 H Glucose 245 H Lactate Calcium 7.5 L Magnesium Total Bilirubin 0.4 AST 21 ALT 9 Alkaline Phosphatase 61 Total Creatine Kinase CK-MB (CK-2) CK-MB (CK-2) Rel Index Troponin I Total Protein 5.2 L Albumin 2.7 L Globulin 2.5 Albumin/Globulin Ratio 1.1 Urine Color Urine Appearance Urine pH Ur Specific [place] Urine Protein Urine Glucose (UA) Urine Ketones Urine Occult Blood Urine Nitrate Urine Bilirubin Urine Urobilinogen Ur Leukocyte Esterase Urine RBC Urine WBC Ur Squamous Epith Cells Amorphous Sediment Urine Bacteria Ur Culture Indicated? Blood Type Antibody Screen Crossmatch Assessment & Plan Assessment & Plan narrative: Assessment 1. Respiratory failure responded well to intubation and ablation pH normalizing and improving oxygenation and anticipate that he will continue with this through the day today. Factors acute affect his sees this seemed to have congestive heart failure with pulmonary edema on chest x-ray and seems to have had a non ST a 2 with elevation RI with a slight decrease in his troponin this morning. Poor renal function could also be a factor in improving his fluid and respiratory status Assessment 2. Non ST T wave RI with elevated troponin and CK. This did not show overtly on EKG last night and numbers seem to have peaked in dropped a little bit in terms his troponin this morning though stool positive. Will continue to monitor closely. Assessment 3. GI bleed. Concern about the amount of blood that he was requiring versus will we were finding either upper or lower GI tract raises the question about if he were bleeding retroperitoneally or elsewhere. No significant evidence of that found on noncontrast abdominal CT scan or head CT scan. Hematocrit this morning 23. recommended keeping that at 26. Patient is on IV Protonix. Assessment 4. Chronic renal insufficiency chronically runs with a creatinine of 2.6 with significantly lowered GFR. This been stable throughout this process so far at that value. Will continue to monitor electrolytes along with that and. That has affected her ability to do any imaging with contrast and was a significant part in are wanting to transfer him so that those tests could be done to define things in a setting where he would have good renal support. Unable to establish that referral at this point Assessment 5. Diabetes content continues to have some significant glucose elevations in the 250 range with may titrate his insulin up to next rhythm level. Assessment 6. Infectious concern with the elevated white count unclear focus and urine looks to not be involved. There is perinephric stranding around the kidneys raises possibility of of not being involved in some way certainly could have something going on in his lungs as well. Will continue with his antibiotic coverage with Zosyn. Assessment 7 chronic neurologic abnormality secondary to falls with C-spine fracture and superimposed diabetic neuropathy lower extremities. These are long-term chronic problems Assessment 8. 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 Under appropriate infectious precautions. Time Spent With Patient Time with patient: Greater than 35 minutes Quality VTE Deep Vein Thrombosis/Pulmonary Embolism Present on Admission: No
[2019-01-25] MEDS: CEFEPIME 2 GM in SODIUM CHLORIDE 0.9% 100 ML 200 ML IV (08:45)
--- NOTE | 2019-01-25 10:12 | DIET.PN ---
Dietary Progress Note Assessment: HT: WT: UBW: BMI: POs: BMs: Labs: MNA: Yahir: Nutrition Diagnosis: Interventions: Diet Order: EER: Monitoring/Evaluations:
[2019-01-25] MEDS: LINEZOLID 600 MG/300 ML IV.SOLN 300 MG IV (10:51)
[2019-01-25] MEDS: PROPOFOL 1,000 MG/100 ML VIAL 21.42 MG IV (10:56)
[2019-01-25 11:26] LABS: Fractionated Inspired Oxygen 21; HCO3 ABG 19 mmol/L (22-26); Oxygen Saturation ABG 93 % (95-100); PCO2 ABG 33.5 mmHg (35-45); PO2 ABG 67 mmHg (80-100); TCO2 ABG 20 mmol/L (21-31); pH ABG 7.37 (7.35-7.45)
[2019-01-25 12:34] LABS: Add Manual Diff / Slide Review NO; Basophils Absolute Auto 0 /uL (0-100); Basophils Percent Auto 0.3 % (0-2); Eosinophils Absolute Auto 100 /uL (0-450); Eosinophils Percent Auto 1.1 % (2-4); Hematocrit 24.2 % (41-53); Hemoglobin 8.1 g/dL (13.5-17.5); Lymphocytes Absolute Auto 900 /uL (1100-4500); Lymphocytes Percent Auto 7.6 % (25-40); Mean Corpuscular HGB Conc 33.4 % (30-36); Mean Corpuscular Hemoglobin 29.7 PG (26-34); Mean Corpuscular Volume 88.9 fL (80-100); Monocytes Absolute Auto 1000 /uL (0-900); Monocytes Percent Auto 8.4 % (3-14); Neutrophils Absolute Auto 10000 /uL (1500-7000); Neutrophils Percent Auto 82.6 % (50-75); Platelet Count 182 X10^3/uL (150-400); Red Blood Cell Count 2.73 X10^6/uL (4.5-5.9); Red Cell Distribution Width 15.8 % (11.6-14.8)
[2019-01-25 12:46] LABS: Blood Urea Nitrogen 80 mg/dL (9-20); Calcium 7.3 mg/dL (8.4-10.2); Carbon Dioxide 22 mmol/L (22-32); Chloride 117 mmol/L (98-107); Estimated Glomerular Filt Rate 25.9 mL/min (>60); Glucose 222 mg/dL (80-110); HEMOLYSIS < 15 (0-50); Potassium 3.4 mmol/L (3.4-5.1); Sodium 146 mmol/L (137-145)
[2019-01-25 12:58] LABS: Troponin I 0.119 ng/mL (0.01-0.034)
--- NOTE | 2019-01-25 13:39 | CM.DPC ---
Addendum entered by Alina Garcia LPN 01/25/19 14:49: Dr. Chapman has now facilitated a d/c to [facility] in [place]. He is leaving shortly. Family have been updated. Original Note: DCP: continued: case discussed in Team Rounds with Dr. Chapman/hospitalist noting that pt was now on ventilator support and her recommendation was a transfer to a higher level of specialty care. She stated this would be done by Dr. Quintana and rounding partner in collaboration with RN coordinator team. DCP team will continue to follow closely. If pt stays at for care and is able to transition to snf level care the plan thus far is for [facility] (prior dc planning notes for this stay).
[2019-01-25] MEDS: HYDROMORPHONE 1 MG INJ IV (13:41)
--- NOTE | 2019-01-25 13:46 | PM.DS.1 ---
History of Present Illness History of Present Illness Chief complaint: SOB Narrative: 68-year-old patient with long history of severe alcoholism diabetes a kidney failure liver failure nonhealing wounds has refused alcohol treatment and has been manageable with opiates for his chronic pain syndrome. Patient also has depression patient has refused alcohol treatment and was mixing his scheduled opiates with alcohol and passing out falling in injured and so he is we have eliminated opiates and so patient has been taking aspirin and ibuprofen spite of our cautions about their GI toxicity and drinking ETOH with. he had dark stool 1st several days although he is a very unreliable historian. feeling worse weak and lightheaded which is a similar presentation to his previous intoxications generally leading to falls injuries and hospitalizations with follow-up detention care. Is admission for his GI bleed and initiation of transfusions patient appeared to go into classic alcohol withdrawal. Required high amounts of Ativan and Haldol for releases relief of agitation and severe thrashing in bed. Finally calmed down and was felt to be having increasing difficulty with breathing may have had an aspiration event during the that transitional for stay. Was thrashing so hard and so agitated that they ended up requiring restraints and during that time frame he had initiation of elevating troponins. Over the next 24-36 hours troponin climb 2 I 0.18. CPK and cardiac CPK elevated as well. Apparently in non ST T wave MS with no acute ischemic EKG changes. Progressively short of breath chest x-ray showing what the pulmonary edema. Diurese and then progressed to intubation because of progressing respiratory failure. Initial pH was 7.2 this resolved quickly with establishment of relaxation and mechanical ventilation. Over the ensuing 24 hour. Continue to have a very low hematocrit and spite of having approximately 9 units of packed red blood cells transfused on very slow degrees to have wishes hematocrit. Initially was at 14 and May was 6 units before we got consistently over 20. Seems to be still be dropping his hemoglobin and hematocrit and more transfused red blood cells and then we are finding evidence of acute current bleeding. May need further imaging. This in the opinion of the our hospitalist and surgeon would require contrast to be most helpful. Concern here is that he has got very significant renal disease the very low GFR and would be at risk for very rapid renal failure if that were to be exposed to contrast media. If he is going to have to have that imaging felt he needed to be in a place where there was the availability of nephrology and dialysis support. Patient also well negative for markers for sepsis had progressive white count into the mid 20s. Initiation of broad-spectrum antibiotics including Zosyn and initiated and significant improvement with respect to that. White count down in the low teens now. Patient's diabetes has been a chronic issue a fairly will manage with A1c in the 6.3 range but with all the stress and acute issues going on his glucose has been in the mid 200s. Has Lantus and a medium algorithm sliding scale processed for management of that at this point. Discharge Providers Provider Date of admission: 01/22/19 23:29 Discharge Date: 01/25/19 Primary care physician: Jim Quintana MD Consults: 01/23/19 00:56 Consult to General Surgery Routine Comment: Consulting Provider: Rosendo Curran Reason for consultation: Upper GI Bleed Has provider been notified: Yes 01/25/19 01:55 Consult to Hospitalist Service Routine Comment: Consulting Provider: Sara Chapman Reason for consultation: acute respiratory failure, mechanical ventilation Has provider been notified: Yes Discharge provider: Jim Quintana MD Summary Hospital Course Discharge Diagnosis: Discharge diagnoses 1. Respiratory failure requiring intubation and ventilator management. I think this is multifactorial. May have had aspiration during withdrawal. Also I think had some congestive heart failure with pulmonary edema. Renal failure and significant anemia probably compounded this as well. Patient also during this time frame appeared to be having significant withdrawal events and were required significant sedation. The seems that have had a non ST T wave MS without EKG evidence but positive troponins and CPKs. Assessment 2. GI bleeding. Patient describes melanotic stool prior to discharge unclear on time frame. After presentation to the hospital did have melanotic stool at least once documented. NG tube did not see lots of acute blood in the stomach but EGD did see a ulcer present there and that was felt to be most likely the source of his blood loss. The patient I think because of his multifactorial diseases and renal failure has a chronic anemia but his baseline hematocrit have been running in the 30 range. This dropped all the way to 14 on his presentation to the emergency room. He received multiple transfusions with approximately 10 units of packed red blood cells and the highest we got his hematocrit was to 25. Concern was raised that he might be bleeding somewhere retroperitoneally or elsewhere but there we are hesitant to do imaging with contrast because of his very precarious renal function. Assessment 3. Probable rhabdomyolysis secondary to thrashing and extreme distress during the 1st night of probable withdrawal. Assessment 4. Non ST T wave cardiac injury. Negative EKG for changes. Suspect that this was demand based or type 2. Currently with stable blood pressure on ventilator and falling troponin Assessment 5. Chronic anemia. Patient does not usually bleeding but I think this is secondary to his chronic renal disease and chronic diffuse health issues. Assessment number 6 history of ETOH abuse with several episodes of withdrawal in the past. Currently adequately sedated for his ventilator. Assessment 7 peripheral vascular and neurologic disease with chronic poorly healing lower extremity lesions particularly on left leg has been seen wound care here and will need to continue that I am certain. Assessment 8 infection elevated white count as noted above possible aspiration pneumonia. Does not look like a urinary tract infection. Not clear signs of intra-abdominal abscess mass her fluid. Assessment 9 nasal swab positive for MRSA. I think that it is most likely colonization. Assessment 10 chronic renal disease. Very low GFR limits medications and studies able to be done here without dialysis support. His transfer to [facility] a. will be helpful in that he will have a higher level of support available for both Cardiology as well as Nephrology issues. Hospital Course: Planned as above Status at Discharge Cognitive/behavioral status at discharge: confused and agitated Functional status at discharge: bed bound Overall status at discharge: patient is not back to baseline Exam Vital Signs (past 8 hours): - 01/25/19 06:00 01/25/19 07:00 01/25/19 08:00 Temperature 97.8 F Pulse Rate 56 L 56 L 56 L Respiratory Rate 15 16 16 Blood Pressure 138/61 134/65 137/66 Pulse Oximetry 96 97 98 01/25/19 09:00 01/25/19 10:00 01/25/19 11:12 Temperature 97.4 F L Pulse Rate 57 L 57 L 56 L Respiratory Rate 16 16 16 Blood Pressure 151/69 H 127/61 128/58 L Pulse Oximetry 99 100 98 01/25/19 11:40 01/25/19 11:55 01/25/19 12:00 Temperature 97.4 F L 98.2 F 98.2 F Pulse Rate 52 L 50 L 53 L Respiratory Rate 16 16 17 Blood Pressure 128/58 L 135/60 138/63 Pulse Oximetry 99 01/25/19 13:00 Temperature Pulse Rate 51 L Respiratory Rate 16 Blood Pressure 150/70 H Pulse Oximetry 100 Oxygen Delivery Method Mechanical Ventilation Oxygen Flow Rate 0 Narrative Exam Narrative: Sedated home on ventilator good vital signs and good oxygenation. Pallid clammy. Lungs with rales and decreased breath sounds throughout Regular rate and rhythm 2/6 systolic murmur unchanged. Enlarged left ventricle. On x-ray. Abdomen is look a little bit doughy and was not severely tender except for his complaint of mid epigastric pain on his admission. Noncontrast CT scan does not show large fluid collection abscess although there is suggestion of partial small-bowel obstruction. On imaging Neuro not assessable at this point secondary to his ventilator sedation. Dermatology he has got nonhealing chronic wounds in his lower extremity secondary to combination of neuropathies. Objective Labs Result Diagrams: 01/25/19 12:25 01/25/19 12:25 Labs: Laboratory Results - last 24 hr 01/22/19 01/24/19 01/24/19 21:12 15:52 16:00 WBC RBC Hgb Hct MCV MCH MCHC RDW Plt Count Neut % (Auto) Lymph % (Auto) [place] % (Auto) Eos % (Auto) Baso % (Auto) Neut # (Auto) Lymph # (Auto) [place] # (Auto) Eos # (Auto) Baso # (Auto) Total Counted Seg Neutrophils % Band Neutrophils % Lymphocytes % (Manual) Monocytes % (Manual) Myelocytes % Neutrophils # (Manual) RBC Morphology Polychromasia ABG pH 7.20 L* ABG pCO2 53.2 H ABG pO2 96 ABG HCO3 21 L ABG Total CO2 22 ABG O2 Saturation 95 ABG Base Excess -7.0 L FiO2 0.21 Sodium Potassium Chloride Carbon Dioxide BUN Creatinine Estimated GFR BUN/Creatinine Ratio Glucose Lactate Calcium Magnesium Total Bilirubin AST ALT Alkaline Phosphatase Total Creatine Kinase CK-MB (CK-2) CK-MB (CK-2) Rel Index Troponin I 0.162 H* Total Protein Albumin Globulin Albumin/Globulin Ratio Urine Color Urine Appearance Urine pH Ur Specific [place] Urine Protein Urine Glucose (UA) Urine Ketones Urine Occult Blood Urine Nitrate Urine Bilirubin Urine Urobilinogen Ur Leukocyte Esterase Urine RBC Urine WBC Ur Squamous Epith Cells Amorphous Sediment Urine Bacteria Ur Culture Indicated? Blood Type O Positive Antibody Screen Negative Crossmatch See Detail 01/24/19 01/24/19 01/24/19 18:18 18:30 18:30 WBC 18.8 H 14.7 H RBC 2.99 L 2.81 L Hgb 9.1 L 8.5 L Hct 27.0 L 25.2 L MCV 90.3 89.6 MCH 30.4 30.3 MCHC 33.7 33.8 RDW 15.5 H 15.2 H Plt Count 207 191 Neut % (Auto) Not Reportable Lymph % (Auto) Not Reportable [place] % (Auto) Not Reportable Eos % (Auto) Not Reportable Baso % (Auto) Not Reportable Neut # (Auto) Lymph # (Auto) Not Reportable [place] # (Auto) Not Reportable Eos # (Auto) Baso # (Auto) Not Reportable Total Counted 100 Seg Neutrophils % 85.0 H Band Neutrophils % 5.0 Lymphocytes % (Manual) 5.0 L Monocytes % (Manual) 3.0 Myelocytes % 2.0 H Neutrophils # (Manual) 39371 H RBC Morphology See below Polychromasia 1+ H ABG pH ABG pCO2 ABG pO2 ABG HCO3 ABG Total CO2 ABG O2 Saturation ABG Base Excess FiO2 Sodium 143 Potassium 4.4 Chloride 113 H Carbon Dioxide 20 L BUN 88 H Creatinine 2.60 H Estimated GFR 24.7 L BUN/Creatinine Ratio 33.8 H Glucose 299 H Lactate Calcium 7.1 L Magnesium 1.9 Total Bilirubin 0.5 AST 25 ALT 9 Alkaline Phosphatase 62 Total Creatine Kinase 556 H D CK-MB (CK-2) 4.27 H CK-MB (CK-2) Rel Index 0.8 L Troponin I 0.158 H* Total Protein 5.4 L Albumin 2.9 L Globulin 2.5 Albumin/Globulin Ratio 1.2 Urine Color Urine Appearance Urine pH Ur Specific [place] Urine Protein Urine Glucose (UA) Urine Ketones Urine Occult Blood Urine Nitrate Urine Bilirubin Urine Urobilinogen Ur Leukocyte Esterase Urine RBC Urine WBC Ur Squamous Epith Cells Amorphous Sediment Urine Bacteria Ur Culture Indicated? Blood Type Antibody Screen Crossmatch 01/24/19 01/24/19 01/24/19 18:30 18:45 19:08 WBC RBC Hgb Hct MCV MCH MCHC RDW Plt Count Neut % (Auto) Lymph % (Auto) [place] % (Auto) Eos % (Auto) Baso % (Auto) Neut # (Auto) Lymph # (Auto) [place] # (Auto) Eos # (Auto) Baso # (Auto) Total Counted Seg Neutrophils % Band Neutrophils % Lymphocytes % (Manual) Monocytes % (Manual) Myelocytes % Neutrophils # (Manual) RBC Morphology Polychromasia ABG pH 7.42 ABG pCO2 27.5 L ABG pO2 126 H ABG HCO3 18 L ABG Total CO2 19 L ABG O2 Saturation 99 ABG Base Excess -7.0 L FiO2 0.35 Sodium Potassium Chloride Carbon Dioxide BUN Creatinine Estimated GFR BUN/Creatinine Ratio Glucose Lactate 0.8 Calcium Magnesium Total Bilirubin AST ALT Alkaline Phosphatase Total Creatine Kinase CK-MB (CK-2) CK-MB (CK-2) Rel Index Troponin I Total Protein Albumin Globulin Albumin/Globulin Ratio Urine Color Yellow Urine Appearance Clear Urine pH 5.0 Ur Specific [place] <=1.005 Urine Protein Negative Urine Glucose (UA) Negative Urine Ketones Negative Urine Occult Blood 3+ H Urine Nitrate Negative Urine Bilirubin Negative Urine Urobilinogen 0.2 Ur Leukocyte Esterase Negative Urine RBC 1-5/hpf Urine WBC 0-1/hpf Ur Squamous Epith Cells 0-1 /hpf Amorphous Sediment 1+ Urine Bacteria None seen Ur Culture Indicated? Cult not indicated Blood Type Antibody Screen Crossmatch 01/24/19 01/24/19 01/24/19 19:35 22:13 22:13 WBC 14.4 H RBC 2.79 L Hgb 8.6 L 8.5 L Hct 25.5 L 24.8 L MCV 88.7 MCH 30.4 MCHC 34.3 RDW 15.2 H Plt Count 192 Neut % (Auto) Lymph % (Auto) [place] % (Auto) Eos % (Auto) Baso % (Auto) Neut # (Auto) Lymph # (Auto) [place] # (Auto) Eos # (Auto) Baso # (Auto) Total Counted Seg Neutrophils % Band Neutrophils % Lymphocytes % (Manual) Monocytes % (Manual) Myelocytes % Neutrophils # (Manual) RBC Morphology Polychromasia ABG pH ABG pCO2 ABG pO2 ABG HCO3 ABG Total CO2 ABG O2 Saturation ABG Base Excess FiO2 Sodium Potassium Chloride Carbon Dioxide BUN Creatinine Estimated GFR BUN/Creatinine Ratio Glucose Lactate Calcium Magnesium Total Bilirubin AST ALT Alkaline Phosphatase Total Creatine Kinase CK-MB (CK-2) CK-MB (CK-2) Rel Index Troponin I 0.195 H* Total Protein Albumin Globulin Albumin/Globulin Ratio Urine Color Urine Appearance Urine pH Ur Specific [place] Urine Protein Urine Glucose (UA) Urine Ketones Urine Occult Blood Urine Nitrate Urine Bilirubin Urine Urobilinogen Ur Leukocyte Esterase Urine RBC Urine WBC Ur Squamous Epith Cells Amorphous Sediment Urine Bacteria Ur Culture Indicated? Blood Type Antibody Screen Crossmatch 01/24/19 01/25/19 01/25/19 22:45 03:58 03:58 WBC 12.8 H RBC 2.69 L Hgb 8.1 L Hct 23.7 L MCV 87.9 MCH 30.0 MCHC 34.1 RDW 15.6 H Plt Count 181 Neut % (Auto) 85.9 H Lymph % (Auto) 5.9 L [place] % (Auto) 7.8 Eos % (Auto) 0.2 L Baso % (Auto) 0.2 Neut # (Auto) 46965 H Lymph # (Auto) 800 L [place] # (Auto) 1000 H Eos # (Auto) 0 Baso # (Auto) 0 Total Counted Seg Neutrophils % Band Neutrophils % Lymphocytes % (Manual) Monocytes % (Manual) Myelocytes % Neutrophils # (Manual) RBC Morphology Polychromasia ABG pH 7.44 ABG pCO2 26.6 L ABG pO2 110 H ABG HCO3 18 L ABG Total CO2 19 L ABG O2 Saturation 99 ABG Base Excess -6.0 L FiO2 30 Sodium 143 Potassium 3.4 Chloride 115 H Carbon Dioxide 21 L BUN 83 H Creatinine 2.60 H Estimated GFR 24.7 L BUN/Creatinine Ratio 31.9 H Glucose 267 H Lactate Calcium 7.6 L Magnesium Total Bilirubin 0.4 AST 21 ALT 9 Alkaline Phosphatase 61 Total Creatine Kinase CK-MB (CK-2) CK-MB (CK-2) Rel Index Troponin I 0.184 H* Total Protein 5.2 L Albumin 2.8 L Globulin 2.4 Albumin/Globulin Ratio 1.2 Urine Color Urine Appearance Urine pH Ur Specific [place] Urine Protein Urine Glucose (UA) Urine Ketones Urine Occult Blood Urine Nitrate Urine Bilirubin Urine Urobilinogen Ur Leukocyte Esterase Urine RBC Urine WBC Ur Squamous Epith Cells Amorphous Sediment Urine Bacteria Ur Culture Indicated? Blood Type Antibody Screen Crossmatch 01/25/19 01/25/19 01/25/19 04:30 06:58 06:58 WBC 11.9 H RBC 2.69 L Hgb 8.0 L Hct 23.9 L MCV 88.8 MCH 29.9 MCHC 33.7 RDW 15.6 H Plt Count 174 Neut % (Auto) 83.8 H Lymph % (Auto) 7.3 L [place] % (Auto) 8.2 Eos % (Auto) 0.5 L Baso % (Auto) 0.2 Neut # (Auto) 45708 H Lymph # (Auto) 900 L [place] # (Auto) 1000 H Eos # (Auto) 100 Baso # (Auto) 0 Total Counted Seg Neutrophils % Band Neutrophils % Lymphocytes % (Manual) Monocytes % (Manual) Myelocytes % Neutrophils # (Manual) RBC Morphology Polychromasia ABG pH 7.45 ABG pCO2 26.0 L ABG pO2 97 ABG HCO3 20 L ABG Total CO2 19 L ABG O2 Saturation 98 ABG Base Excess -6.0 L FiO2 25 Sodium 146 H Potassium 3.4 Chloride 117 H Carbon Dioxide 21 L BUN 83 H Creatinine 2.60 H Estimated GFR 24.7 L BUN/Creatinine Ratio 31.9 H Glucose 245 H Lactate Calcium 7.5 L Magnesium Total Bilirubin 0.4 AST 21 ALT 9 Alkaline Phosphatase 61 Total Creatine Kinase CK-MB (CK-2) CK-MB (CK-2) Rel Index Troponin I Total Protein 5.2 L Albumin 2.7 L Globulin 2.5 Albumin/Globulin Ratio 1.1 Urine Color Urine Appearance Urine pH Ur Specific [place] Urine Protein Urine Glucose (UA) Urine Ketones Urine Occult Blood Urine Nitrate Urine Bilirubin Urine Urobilinogen Ur Leukocyte Esterase Urine RBC Urine WBC Ur Squamous Epith Cells Amorphous Sediment Urine Bacteria Ur Culture Indicated? Blood Type Antibody Screen Crossmatch 01/25/19 01/25/19 01/25/19 09:50 12:25 12:25 WBC 12.0 H RBC 2.73 L Hgb 8.1 L Hct 24.2 L MCV 88.9 MCH 29.7 MCHC 33.4 RDW 15.8 H Plt Count 182 Neut % (Auto) 82.6 H Lymph % (Auto) 7.6 L [place] % (Auto) 8.4 Eos % (Auto) 1.1 L Baso % (Auto) 0.3 Neut # (Auto) 59256 H Lymph # (Auto) 900 L [place] # (Auto) 1000 H Eos # (Auto) 100 Baso # (Auto) 0 Total Counted Seg Neutrophils % Band Neutrophils % Lymphocytes % (Manual) Monocytes % (Manual) Myelocytes % Neutrophils # (Manual) RBC Morphology Polychromasia ABG pH 7.37 ABG pCO2 33.5 L ABG pO2 67 L ABG HCO3 19 L ABG Total CO2 20 L ABG O2 Saturation 93 L ABG Base Excess -6.0 L FiO2 21 Sodium 146 H Potassium 3.4 Chloride 117 H Carbon Dioxide 22 BUN 80 H Creatinine 2.50 H Estimated GFR 25.9 L BUN/Creatinine Ratio 32.0 H Glucose 222 H Lactate Calcium 7.3 L Magnesium Total Bilirubin AST ALT Alkaline Phosphatase Total Creatine Kinase CK-MB (CK-2) CK-MB (CK-2) Rel Index Troponin I Total Protein Albumin Globulin Albumin/Globulin Ratio Urine Color Urine Appearance Urine pH Ur Specific [place] Urine Protein Urine Glucose (UA) Urine Ketones Urine Occult Blood Urine Nitrate Urine Bilirubin Urine Urobilinogen Ur Leukocyte Esterase Urine RBC Urine WBC Ur Squamous Epith Cells Amorphous Sediment Urine Bacteria Ur Culture Indicated? Blood Type Antibody Screen Crossmatch 01/25/19 12:25 WBC RBC Hgb Hct MCV MCH MCHC RDW Plt Count Neut % (Auto) Lymph % (Auto) [place] % (Auto) Eos % (Auto) Baso % (Auto) Neut # (Auto) Lymph # (Auto) [place] # (Auto) Eos # (Auto) Baso # (Auto) Total Counted Seg Neutrophils % Band Neutrophils % Lymphocytes % (Manual) Monocytes % (Manual) Myelocytes % Neutrophils # (Manual) RBC Morphology Polychromasia ABG pH ABG pCO2 ABG pO2 ABG HCO3 ABG Total CO2 ABG O2 Saturation ABG Base Excess FiO2 Sodium Potassium Chloride Carbon Dioxide BUN Creatinine Estimated GFR BUN/Creatinine Ratio Glucose Lactate Calcium Magnesium Total Bilirubin AST ALT Alkaline Phosphatase Total Creatine Kinase CK-MB (CK-2) CK-MB (CK-2) Rel Index Troponin I 0.119 H Total Protein Albumin Globulin Albumin/Globulin Ratio Urine Color Urine Appearance Urine pH Ur Specific [place] Urine Protein Urine Glucose (UA) Urine Ketones Urine Occult Blood Urine Nitrate Urine Bilirubin Urine Urobilinogen Ur Leukocyte Esterase Urine RBC Urine WBC Ur Squamous Epith Cells Amorphous Sediment Urine Bacteria Ur Culture Indicated? Blood Type Antibody Screen Crossmatch Discharge Plan Discharge Plan [facility] Discharge orders & Medications Prescriptions: No Action doxazosin 4 mg Tablet 4 mg PO BEDTIME RF: 0 acetaminophen 325 mg Tablet 650 mg PO Q4HR PRN (Reason: As Needed For Fever/Mild Pain) Qty: 100 RF: 0 furosemide 40 mg Tablet 60 mg PO DAILY RF: 0 duloxetine 60 mg capsule,delayed release(DR/EC) 60 mg PO BID RF: 0 polyethylene glycol 3350 17 gram/dose Powder 17 g PO DAILY PRN (Reason: Constipation) RF: 0 cyclobenzaprine 5 mg tablet 5 mg PO TID PRN (Reason: muscle spasm) Qty: 10 RF: 0 silver sulfadiazine [SSD] 1 % cream 1 applic TOPICAL TID RF: 0 lorazepam 0.5 mg tablet 0.5 mg PO TID PRN (Reason: Anxiety) RF: 0 citalopram 20 MG tablet 20 mg PO DAILY RF: 0 glimepiride 1 mg tablet 1 mg PO DAILY RF: 0 lidocaine 5 % adhesive patch,medicated 1 patch TOP DAILY Qty: 30 RF: 0 Follow up/Referrals: Jim Quintana MD [Primary Care Provider] - Discharge Health Status Multidrug resistant organism: MRSA Precautions: [place] Diet/Activity/Treatments Diet: Nothing by Mouth Discharge Data Primary Care Provider: Jim Quintana Quality VTE Deep Vein Thrombosis/Pulmonary Embolism Present on Admission: No
--- NOTE | 2019-01-25 13:50 | PC.NURSE ---
Addendum entered by Radha Baca R.N. 01/25/19 15:45: Report called to [facility], TAMARA Eubanks. Accepting Pt into room 343. ACLS taking Pt out of unit @ 1546. Addendum entered by Radha Baca R.N. 01/25/19 14:54: ACLS arrived for transport of Pt to [facility], 1430, Report for transport. Attempted to call report into [facility], will retry at accepting RN is on break. Original Note: Nursing Assumed care of Pt, calm RR maintained on vent. Spo2 98% on current settings. RT into obtained blod gas and adjust per Dr Chapman. Dr Quintana into see Pt, update to family. H/H small dip from overnight, and 1 unit of PRBC given per Dr Quintana Order. Propofol gtt @ 20mcg/kg/min, care or suction has required increased. IV Dilaudid x2 this shift. HR marian, down to 40's at times. Dr Chapman into round on Pt and update given to family about transfer to [facility] in [place]. D/t SBO and no BM since EGD. Bt remain hypoactive with NG in place, to LIS. Soft wrist restraint while on vent.
--- NOTE | 2019-01-25 14:19 | PM.DS.1 ---
History of Present Illness History of Present Illness Chief complaint: SOB Narrative: 68-year-old patient with long history of severe alcoholism diabetes a kidney failure liver failure nonhealing wounds has refused alcohol treatment and has been manageable with opiates for his chronic pain syndrome. Patient also has depression patient has refused alcohol treatment and was mixing his scheduled opiates with alcohol and passing out falling in injured and so he is we have eliminated opiates and so patient has been taking aspirin and ibuprofen spite of our cautions about their GI toxicity and drinking ETOH with. he had dark stool 1st several days although he is a very unreliable historian. feeling worse weak and lightheaded which is a similar presentation to his previous intoxications generally leading to falls injuries and hospitalizations with follow-up correction care. Is admission for his GI bleed and initiation of transfusions patient appeared to go into classic alcohol withdrawal. Required high amounts of Ativan and Haldol for releases relief of agitation and severe thrashing in bed. Finally calmed down and was felt to be having increasing difficulty with breathing may have had an aspiration event during the that transitional for stay. Was thrashing so hard and so agitated that they ended up requiring restraints and during that time frame he had initiation of elevating troponins. Over the next 24-36 hours troponin climb 2 I 0.18. CPK and cardiac CPK elevated as well. Apparently in non ST T wave PR with no acute ischemic EKG changes. Progressively short of breath chest x-ray showing what the pulmonary edema. Diurese and then progressed to intubation because of progressing respiratory failure. Initial pH was 7.2 this resolved quickly with establishment of relaxation and mechanical ventilation. Over the ensuing 24 hour. Continue to have a very low hematocrit and spite of having approximately 9 units of packed red blood cells transfused on very slow degrees to have wishes hematocrit. Initially was at 14 and May was 6 units before we got consistently over 20. Seems to be still be dropping his hemoglobin and hematocrit and more transfused red blood cells and then we are finding evidence of acute current bleeding. May need further imaging. This in the opinion of the our hospitalist and surgeon would require contrast to be most helpful. Concern here is that he has got very significant renal disease the very low GFR and would be at risk for very rapid renal failure if that were to be exposed to contrast media. If he is going to have to have that imaging felt he needed to be in a place where there was the availability of nephrology and dialysis support. Patient also well negative for markers for sepsis had progressive white count into the mid 20s. Initiation of broad-spectrum antibiotics including Zosyn and initiated and significant improvement with respect to that. White count down in the low teens now. Patient's diabetes has been a chronic issue a fairly will manage with A1c in the 6.3 range but with all the stress and acute issues going on his glucose has been in the mid 200s. Has Lantus and a medium algorithm sliding scale processed for management of that at this point. Discharge Providers Provider Date of admission: 01/22/19 23:29 Discharge Date: 01/25/19 Primary care physician: Jim Quintana MD Consults: 01/23/19 00:56 Consult to General Surgery Routine Comment: Consulting Provider: Rosendo Curran Reason for consultation: Upper GI Bleed Has provider been notified: Yes 01/25/19 01:55 Consult to Hospitalist Service Routine Comment: Consulting Provider: Sara Chapman Reason for consultation: acute respiratory failure, mechanical ventilation Has provider been notified: Yes Discharge provider: Jim Quintana MD Exam Vital Signs (past 8 hours): - 01/25/19 07:00 01/25/19 08:00 01/25/19 09:00 Temperature 97.8 F Pulse Rate 56 L 56 L 57 L Respiratory Rate 16 16 16 Blood Pressure 134/65 137/66 151/69 H Pulse Oximetry 97 98 99 01/25/19 10:00 01/25/19 11:12 01/25/19 11:40 Temperature 97.4 F L 97.4 F L Pulse Rate 57 L 56 L 52 L Respiratory Rate 16 16 16 Blood Pressure 127/61 128/58 L 128/58 L Pulse Oximetry 100 98 01/25/19 11:55 01/25/19 12:00 01/25/19 13:00 Temperature 98.2 F 98.2 F Pulse Rate 50 L 53 L 51 L Respiratory Rate 16 17 16 Blood Pressure 135/60 138/63 150/70 H Pulse Oximetry 99 100 01/25/19 14:00 Temperature Pulse Rate 57 L Respiratory Rate 16 Blood Pressure 167/77 H Pulse Oximetry 100 Oxygen Delivery Method Mechanical Ventilation Oxygen Flow Rate 0 Objective Labs Result Diagrams: 01/25/19 12:25 01/25/19 12:25 Labs: Laboratory Results - last 24 hr 01/22/19 01/24/19 01/24/19 21:12 15:52 16:00 WBC RBC Hgb Hct MCV MCH MCHC RDW Plt Count Neut % (Auto) Lymph % (Auto) [place] % (Auto) Eos % (Auto) Baso % (Auto) Neut # (Auto) Lymph # (Auto) [place] # (Auto) Eos # (Auto) Baso # (Auto) Total Counted Seg Neutrophils % Band Neutrophils % Lymphocytes % (Manual) Monocytes % (Manual) Myelocytes % Neutrophils # (Manual) RBC Morphology Polychromasia ABG pH 7.20 L* ABG pCO2 53.2 H ABG pO2 96 ABG HCO3 21 L ABG Total CO2 22 ABG O2 Saturation 95 ABG Base Excess -7.0 L FiO2 0.21 Sodium Potassium Chloride Carbon Dioxide BUN Creatinine Estimated GFR BUN/Creatinine Ratio Glucose Lactate Calcium Magnesium Total Bilirubin AST ALT Alkaline Phosphatase Total Creatine Kinase CK-MB (CK-2) CK-MB (CK-2) Rel Index Troponin I 0.162 H* Total Protein Albumin Globulin Albumin/Globulin Ratio Urine Color Urine Appearance Urine pH Ur Specific [place] Urine Protein Urine Glucose (UA) Urine Ketones Urine Occult Blood Urine Nitrate Urine Bilirubin Urine Urobilinogen Ur Leukocyte Esterase Urine RBC Urine WBC Ur Squamous Epith Cells Amorphous Sediment Urine Bacteria Ur Culture Indicated? Blood Type O Positive Antibody Screen Negative Crossmatch See Detail 01/24/19 01/24/19 01/24/19 18:18 18:30 18:30 WBC 18.8 H 14.7 H RBC 2.99 L 2.81 L Hgb 9.1 L 8.5 L Hct 27.0 L 25.2 L MCV 90.3 89.6 MCH 30.4 30.3 MCHC 33.7 33.8 RDW 15.5 H 15.2 H Plt Count 207 191 Neut % (Auto) Not Reportable Lymph % (Auto) Not Reportable [place] % (Auto) Not Reportable Eos % (Auto) Not Reportable Baso % (Auto) Not Reportable Neut # (Auto) Lymph # (Auto) Not Reportable [place] # (Auto) Not Reportable Eos # (Auto) Baso # (Auto) Not Reportable Total Counted 100 Seg Neutrophils % 85.0 H Band Neutrophils % 5.0 Lymphocytes % (Manual) 5.0 L Monocytes % (Manual) 3.0 Myelocytes % 2.0 H Neutrophils # (Manual) 33385 H RBC Morphology See below Polychromasia 1+ H ABG pH ABG pCO2 ABG pO2 ABG HCO3 ABG Total CO2 ABG O2 Saturation ABG Base Excess FiO2 Sodium 143 Potassium 4.4 Chloride 113 H Carbon Dioxide 20 L BUN 88 H Creatinine 2.60 H Estimated GFR 24.7 L BUN/Creatinine Ratio 33.8 H Glucose 299 H Lactate Calcium 7.1 L Magnesium 1.9 Total Bilirubin 0.5 AST 25 ALT 9 Alkaline Phosphatase 62 Total Creatine Kinase 556 H D CK-MB (CK-2) 4.27 H CK-MB (CK-2) Rel Index 0.8 L Troponin I 0.158 H* Total Protein 5.4 L Albumin 2.9 L Globulin 2.5 Albumin/Globulin Ratio 1.2 Urine Color Urine Appearance Urine pH Ur Specific [place] Urine Protein Urine Glucose (UA) Urine Ketones Urine Occult Blood Urine Nitrate Urine Bilirubin Urine Urobilinogen Ur Leukocyte Esterase Urine RBC Urine WBC Ur Squamous Epith Cells Amorphous Sediment Urine Bacteria Ur Culture Indicated? Blood Type Antibody Screen Crossmatch 01/24/19 01/24/19 01/24/19 18:30 18:45 19:08 WBC RBC Hgb Hct MCV MCH MCHC RDW Plt Count Neut % (Auto) Lymph % (Auto) [place] % (Auto) Eos % (Auto) Baso % (Auto) Neut # (Auto) Lymph # (Auto) [place] # (Auto) Eos # (Auto) Baso # (Auto) Total Counted Seg Neutrophils % Band Neutrophils % Lymphocytes % (Manual) Monocytes % (Manual) Myelocytes % Neutrophils # (Manual) RBC Morphology Polychromasia ABG pH 7.42 ABG pCO2 27.5 L ABG pO2 126 H ABG HCO3 18 L ABG Total CO2 19 L ABG O2 Saturation 99 ABG Base Excess -7.0 L FiO2 0.35 Sodium Potassium Chloride Carbon Dioxide BUN Creatinine Estimated GFR BUN/Creatinine Ratio Glucose Lactate 0.8 Calcium Magnesium Total Bilirubin AST ALT Alkaline Phosphatase Total Creatine Kinase CK-MB (CK-2) CK-MB (CK-2) Rel Index Troponin I Total Protein Albumin Globulin Albumin/Globulin Ratio Urine Color Yellow Urine Appearance Clear Urine pH 5.0 Ur Specific [place] <=1.005 Urine Protein Negative Urine Glucose (UA) Negative Urine Ketones Negative Urine Occult Blood 3+ H Urine Nitrate Negative Urine Bilirubin Negative Urine Urobilinogen 0.2 Ur Leukocyte Esterase Negative Urine RBC 1-5/hpf Urine WBC 0-1/hpf Ur Squamous Epith Cells 0-1 /hpf Amorphous Sediment 1+ Urine Bacteria None seen Ur Culture Indicated? Cult not indicated Blood Type Antibody Screen Crossmatch 01/24/19 01/24/19 01/24/19 19:35 22:13 22:13 WBC 14.4 H RBC 2.79 L Hgb 8.6 L 8.5 L Hct 25.5 L 24.8 L MCV 88.7 MCH 30.4 MCHC 34.3 RDW 15.2 H Plt Count 192 Neut % (Auto) Lymph % (Auto) [place] % (Auto) Eos % (Auto) Baso % (Auto) Neut # (Auto) Lymph # (Auto) [place] # (Auto) Eos # (Auto) Baso # (Auto) Total Counted Seg Neutrophils % Band Neutrophils % Lymphocytes % (Manual) Monocytes % (Manual) Myelocytes % Neutrophils # (Manual) RBC Morphology Polychromasia ABG pH ABG pCO2 ABG pO2 ABG HCO3 ABG Total CO2 ABG O2 Saturation ABG Base Excess FiO2 Sodium Potassium Chloride Carbon Dioxide BUN Creatinine Estimated GFR BUN/Creatinine Ratio Glucose Lactate Calcium Magnesium Total Bilirubin AST ALT Alkaline Phosphatase Total Creatine Kinase CK-MB (CK-2) CK-MB (CK-2) Rel Index Troponin I 0.195 H* Total Protein Albumin Globulin Albumin/Globulin Ratio Urine Color Urine Appearance Urine pH Ur Specific [place] Urine Protein Urine Glucose (UA) Urine Ketones Urine Occult Blood Urine Nitrate Urine Bilirubin Urine Urobilinogen Ur Leukocyte Esterase Urine RBC Urine WBC Ur Squamous Epith Cells Amorphous Sediment Urine Bacteria Ur Culture Indicated? Blood Type Antibody Screen Crossmatch 01/24/19 01/25/19 01/25/19 22:45 03:58 03:58 WBC 12.8 H RBC 2.69 L Hgb 8.1 L Hct 23.7 L MCV 87.9 MCH 30.0 MCHC 34.1 RDW 15.6 H Plt Count 181 Neut % (Auto) 85.9 H Lymph % (Auto) 5.9 L [place] % (Auto) 7.8 Eos % (Auto) 0.2 L Baso % (Auto) 0.2 Neut # (Auto) 35896 H Lymph # (Auto) 800 L [place] # (Auto) 1000 H Eos # (Auto) 0 Baso # (Auto) 0 Total Counted Seg Neutrophils % Band Neutrophils % Lymphocytes % (Manual) Monocytes % (Manual) Myelocytes % Neutrophils # (Manual) RBC Morphology Polychromasia ABG pH 7.44 ABG pCO2 26.6 L ABG pO2 110 H ABG HCO3 18 L ABG Total CO2 19 L ABG O2 Saturation 99 ABG Base Excess -6.0 L FiO2 30 Sodium 143 Potassium 3.4 Chloride 115 H Carbon Dioxide 21 L BUN 83 H Creatinine 2.60 H Estimated GFR 24.7 L BUN/Creatinine Ratio 31.9 H Glucose 267 H Lactate Calcium 7.6 L Magnesium Total Bilirubin 0.4 AST 21 ALT 9 Alkaline Phosphatase 61 Total Creatine Kinase CK-MB (CK-2) CK-MB (CK-2) Rel Index Troponin I 0.184 H* Total Protein 5.2 L Albumin 2.8 L Globulin 2.4 Albumin/Globulin Ratio 1.2 Urine Color Urine Appearance Urine pH Ur Specific [place] Urine Protein Urine Glucose (UA) Urine Ketones Urine Occult Blood Urine Nitrate Urine Bilirubin Urine Urobilinogen Ur Leukocyte Esterase Urine RBC Urine WBC Ur Squamous Epith Cells Amorphous Sediment Urine Bacteria Ur Culture Indicated? Blood Type Antibody Screen Crossmatch 01/25/19 01/25/19 01/25/19 04:30 06:58 06:58 WBC 11.9 H RBC 2.69 L Hgb 8.0 L Hct 23.9 L MCV 88.8 MCH 29.9 MCHC 33.7 RDW 15.6 H Plt Count 174 Neut % (Auto) 83.8 H Lymph % (Auto) 7.3 L [place] % (Auto) 8.2 Eos % (Auto) 0.5 L Baso % (Auto) 0.2 Neut # (Auto) 32384 H Lymph # (Auto) 900 L [place] # (Auto) 1000 H Eos # (Auto) 100 Baso # (Auto) 0 Total Counted Seg Neutrophils % Band Neutrophils % Lymphocytes % (Manual) Monocytes % (Manual) Myelocytes % Neutrophils # (Manual) RBC Morphology Polychromasia ABG pH 7.45 ABG pCO2 26.0 L ABG pO2 97 ABG HCO3 20 L ABG Total CO2 19 L ABG O2 Saturation 98 ABG Base Excess -6.0 L FiO2 25 Sodium 146 H Potassium 3.4 Chloride 117 H Carbon Dioxide 21 L BUN 83 H Creatinine 2.60 H Estimated GFR 24.7 L BUN/Creatinine Ratio 31.9 H Glucose 245 H Lactate Calcium 7.5 L Magnesium Total Bilirubin 0.4 AST 21 ALT 9 Alkaline Phosphatase 61 Total Creatine Kinase CK-MB (CK-2) CK-MB (CK-2) Rel Index Troponin I Total Protein 5.2 L Albumin 2.7 L Globulin 2.5 Albumin/Globulin Ratio 1.1 Urine Color Urine Appearance Urine pH Ur Specific [place] Urine Protein Urine Glucose (UA) Urine Ketones Urine Occult Blood Urine Nitrate Urine Bilirubin Urine Urobilinogen Ur Leukocyte Esterase Urine RBC Urine WBC Ur Squamous Epith Cells Amorphous Sediment Urine Bacteria Ur Culture Indicated? Blood Type Antibody Screen Crossmatch 01/25/19 01/25/19 01/25/19 09:50 12:25 12:25 WBC 12.0 H RBC 2.73 L Hgb 8.1 L Hct 24.2 L MCV 88.9 MCH 29.7 MCHC 33.4 RDW 15.8 H Plt Count 182 Neut % (Auto) 82.6 H Lymph % (Auto) 7.6 L [place] % (Auto) 8.4 Eos % (Auto) 1.1 L Baso % (Auto) 0.3 Neut # (Auto) 78252 H Lymph # (Auto) 900 L [place] # (Auto) 1000 H Eos # (Auto) 100 Baso # (Auto) 0 Total Counted Seg Neutrophils % Band Neutrophils % Lymphocytes % (Manual) Monocytes % (Manual) Myelocytes % Neutrophils # (Manual) RBC Morphology Polychromasia ABG pH 7.37 ABG pCO2 33.5 L ABG pO2 67 L ABG HCO3 19 L ABG Total CO2 20 L ABG O2 Saturation 93 L ABG Base Excess -6.0 L FiO2 21 Sodium 146 H Potassium 3.4 Chloride 117 H Carbon Dioxide 22 BUN 80 H Creatinine 2.50 H Estimated GFR 25.9 L BUN/Creatinine Ratio 32.0 H Glucose 222 H Lactate Calcium 7.3 L Magnesium Total Bilirubin AST ALT Alkaline Phosphatase Total Creatine Kinase CK-MB (CK-2) CK-MB (CK-2) Rel Index Troponin I Total Protein Albumin Globulin Albumin/Globulin Ratio Urine Color Urine Appearance Urine pH Ur Specific [place] Urine Protein Urine Glucose (UA) Urine Ketones Urine Occult Blood Urine Nitrate Urine Bilirubin Urine Urobilinogen Ur Leukocyte Esterase Urine RBC Urine WBC Ur Squamous Epith Cells Amorphous Sediment Urine Bacteria Ur Culture Indicated? Blood Type Antibody Screen Crossmatch 01/25/19 12:25 WBC RBC Hgb Hct MCV MCH MCHC RDW Plt Count Neut % (Auto) Lymph % (Auto) [place] % (Auto) Eos % (Auto) Baso % (Auto) Neut # (Auto) Lymph # (Auto) [place] # (Auto) Eos # (Auto) Baso # (Auto) Total Counted Seg Neutrophils % Band Neutrophils % Lymphocytes % (Manual) Monocytes % (Manual) Myelocytes % Neutrophils # (Manual) RBC Morphology Polychromasia ABG pH ABG pCO2 ABG pO2 ABG HCO3 ABG Total CO2 ABG O2 Saturation ABG Base Excess FiO2 Sodium Potassium Chloride Carbon Dioxide BUN Creatinine Estimated GFR BUN/Creatinine Ratio Glucose Lactate Calcium Magnesium Total Bilirubin AST ALT Alkaline Phosphatase Total Creatine Kinase CK-MB (CK-2) CK-MB (CK-2) Rel Index Troponin I 0.119 H Total Protein Albumin Globulin Albumin/Globulin Ratio Urine Color Urine Appearance Urine pH Ur Specific [place] Urine Protein Urine Glucose (UA) Urine Ketones Urine Occult Blood Urine Nitrate Urine Bilirubin Urine Urobilinogen Ur Leukocyte Esterase Urine RBC Urine WBC Ur Squamous Epith Cells Amorphous Sediment Urine Bacteria Ur Culture Indicated? Blood Type Antibody Screen Crossmatch Discharge Plan Discharge Plan Patient Disposition: [facility] Other facility: [facility] Discharge orders & Medications Follow up/Referrals: Jim Quintana MD [Primary Care Provider] - Discharge Health Status Multidrug resistant organism: MRSA Precautions: [place] Diet/Activity/Treatments Diet: Nothing by Mouth Discharge Data Primary Care Provider: Jim Quintana Quality VTE Deep Vein Thrombosis/Pulmonary Embolism Present on Admission: No
[2019-01-25] MEDS: fentaNYL 100 MCG/2 ML INJ 50 MCG IV (14:21)
[2019-01-25] MEDS: POTASSIUM CHLORIDE 60 MEQ in SODIUM CHLORIDE 0.9% 500 ML 88.333 ML IV (14:23)
[2019-03-13 18:06] LABS: HCO3 ABG 18 mmol/L (22-26)
== END 2019-01-25 15:46 | disposition short-term general hospital (02) | DRG 377 ==
LOC: ED 23:29 → AC 23:30 → ICU 01-23 00:37
PROVIDERS: Internal Medicine; Nurse Practitioner Adult Health; Surgery; Admitting Provider Family Medicine; Emergency Provider Emergency Medicine; Family Provider Family Medicine; PCP Family Medicine; Visit Provider Family Medicine
PROC: 0DJ08ZZ Inspection of Upper Intestinal Tract, Via Natural or Artificial Opening Endoscopic (ICD-10-PCS; CPT 43235; principal; 2019-01-23 16:00)
DX: K26.4 Chronic or unspecified duodenal ulcer with hemorrhage (principal); J96.02 Acute respiratory failure with hypercapnia; J69.0 Pneumonitis due to inhalation of food and vomit; I21.4 Non-ST elevation (NSTEMI) myocardial infarction; D62 Acute posthemorrhagic anemia; F10.231 Alcohol dependence with withdrawal delirium; N18.4 Chronic kidney disease, stage 4 (severe); E87.2 Acidosis; I12.9 Hypertensive chronic kidney disease with stage 1 through stage 4 chronic kidney disease, or unspecified chronic kidney disease; Z22.322 Carrier or suspected carrier of Methicillin resistant Staphylococcus aureus; E11.22 Type 2 diabetes mellitus with diabetic chronic kidney disease; T79.6XXA Traumatic ischemia of muscle, initial encounter; S80.922A Unspecified superficial injury of left lower leg, initial encounter; S80.921A Unspecified superficial injury of right lower leg, initial encounter; E66.9 Obesity, unspecified; Z68.39 Body mass index [BMI] 39.0-39.9, adult; Z87.891 Personal history of nicotine dependence; F32.9 Major depressive disorder, single episode, unspecified; G89.29 Other chronic pain; I73.9 Peripheral vascular disease, unspecified; Z79.4 Long term (current) use of insulin
CPT/HCPCS: 36415; 36430; 36569; 36600; 43235; 70450; 71045; 74022; 74176; 76705; 80048; 80053; 81001; 81003; 82550; 82553; 82805; 82962; 83605; 83690; 83735; 83880; 84484; 85014; 85018; 85025; 85027; 85610; 85730; 86850; 86900; 86901; 87797; 93005; 94002; 94003; 94770; 94799; 96365; 96375; 99231; 99232; 99283; 99291; P9016; C9113; J0330; J0610; J0692; J0696; J1170; J1630; J1940; J2020; J2060; J2354; J2405; J2543; J2704; J2765; J3010; J3480; J7050

== ENCOUNTER → 2019-02-23 13:40 | Outpatient (ROUT) | payer MEDICARE, MEDICAID, SELFPAY ==
[2019-01-24 12:24] VITALS: BMI 38.7
[2019-01-25 14:14] VITALS: PULSE 56; RESP 16; O2SAT 100
[2019-02-23 14:03] LABS: Add Manual Diff / Slide Review NO; Basophils Absolute Auto 0 /uL (0-100); Basophils Percent Auto 0.5 % (0-2); Eosinophils Absolute Auto 300 /uL (0-450); Eosinophils Percent Auto 3.6 % (2-4); Hematocrit 25.3 % (41-53); Hemoglobin 8.4 g/dL (13.5-17.5); Lymphocytes Absolute Auto 1100 /uL (1100-4500); Lymphocytes Percent Auto 14.3 % (25-40); Mean Corpuscular HGB Conc 33.1 % (30-36); Mean Corpuscular Hemoglobin 30.3 PG (26-34); Mean Corpuscular Volume 91.6 fL (80-100); Monocytes Absolute Auto 500 /uL (0-900); Monocytes Percent Auto 6.7 % (3-14); Neutrophils Absolute Auto 5900 /uL (1500-7000); Neutrophils Percent Auto 74.9 % (50-75); Platelet Count 188 X10^3/uL (150-400); Red Blood Cell Count 2.76 X10^6/uL (4.5-5.9); Red Cell Distribution Width 16.5 % (11.6-14.8); White Blood Cell Count 7.9 X10^3/uL (4.5-11.0)
[2019-02-23 14:09] LABS: Alanine Aminotransferase 9 IU/L (<50); Albumin 3.5 g/dL (3.5-5.0); Albumin Globulin Ratio 1.3 (1.0-2.8); Alkaline Phosphatase 77 U/L (38-126); Aspartate Aminotransferase 13 IU/L (17-59); BUN Creatinine Ratio 22.7 (6-22); Bilirubin Total 0.5 mg/dL (0.2-1.3); Blood Urea Nitrogen 50 mg/dL (9-20); Carbon Dioxide 27 mmol/L (22-32); Chloride 105 mmol/L (98-107); Globulin 2.7 g/dL (1.7-4.1); Glucose 132 mg/dL (80-110); HEMOLYSIS < 15 (0-50); Potassium 4.7 mmol/L (3.4-5.1); Sodium 139 mmol/L (137-145); Total Protein 6.2 g/dL (6.3-8.2)
== END ==
PROVIDERS: Family Provider Family Medicine; PCP Family Medicine; Visit Provider Internal Medicine
DX: R06.02 Shortness of breath (principal); R06.2 Wheezing; R53.83 Other fatigue; I24.1 Dressler's syndrome
CPT/HCPCS: 80053; 85025

== ENCOUNTER 2019-03-04 10:23 | Emergency (ER) | payer MEDICARE, MEDICAID, SELFPAY ==
[2019-01-24 12:24] VITALS: BMI 38.7
[2019-01-25 14:14] VITALS: PULSE 56; RESP 16; O2SAT 100
--- NOTE | 2019-03-04 10:41 | ED_ITS ---
HPI - Recheck/Abnormal Lab/Rx General Chief Complaint: Recheck/Abnormal Lab/Rx Stated Complaint: Hx upper GI bleed Time Seen by Provider: 03/04/19 10:30 Source: patient Mode of arrival: EMS Limitations: no limitations History of Present Illness HPI narrative: Patient is a 68-year-old male with history of upper GI bleed presenting from the care center is with concern for persistent bleeding based on blood work. Patient says he is not nauseous vomiting he has not had any black stools in fact he ate breakfast he denies dizziness lightheadedness chest pain or shortness of breath he is completely asymptomatic. Outpatient blood work reveals hemoglobin of 8.9 hematocrit 27.8 on 03/01/2019 previously on February 03 he's hemoglobin of 8.9 and hematocrit 25.7. Related Data Home Medications Medication Instructions Recorded Confirmed citalopram 20 mg PO DAILY 12/25/17 01/23/19 glimepiride 1 mg PO DAILY 03/22/18 01/23/19 doxazosin 4 mg PO BEDTIME 06/07/18 01/23/19 furosemide 60 mg PO DAILY 09/27/18 01/23/19 duloxetine 60 mg PO BID 09/28/18 01/23/19 polyethylene glycol 3350 17 g PO DAILY PRN 09/28/18 01/23/19 lorazepam 0.5 mg PO TID PRN 11/12/18 01/23/19 silver sulfadiazine [SSD] 1 applic TOPICAL TID 11/12/18 01/23/19 Previous Rx's Medication Instructions Recorded acetaminophen 650 mg PO Q4HR PRN #100 tab 06/12/18 cyclobenzaprine 5 mg PO TID PRN #10 tab 11/10/18 lidocaine 1 patch TOP DAILY #30 each 12/19/18 Allergies Allergy/AdvReac Type Severity Reaction Status Date / Time latex Allergy Mild IRRITATION Verified 01/22/19 21:19 carisoprodol [From Soma] Allergy Verified 03/04/19 10:42 hydromorphone Allergy Verified 03/04/19 10:42 Sulfa (Sulfonamide AdvReac Mild N&V 1HOUR Verified 01/22/19 21:19 Antibiotics) AFTER RX, THINKS IT IS RELATED Review of Systems Review of Systems Narrative: GENERAL: Denies chills, fatigue, malaise, fever, sweats, travel HEENT: Denies sinus pain, ear pain, sore throat, difficulty swallowing, neck pain RESPIRATORY: Denies dyspnea, cough, wheezing, hemoptysis, sputum. CARDIOVASCULAR: Denies chest pain, palpitations, orthopnea, edema GASTROINTESTINAL: Denies nausea, vomiting, abdominal pain, diarrhea, constipation, melena. : Denies dysuria, frequency, incontinence, hematuria, urinary retention, flank pain. MUSCULOSKELETAL: Denies weakness, joint pain, or bony pain SKIN: No rash, no erythema, no pruritus NEUROLOGIC: Denies weakness, dizziness, headache, numbness, change in speech, co nfusion PSYCHIATRIC: No concerning psychosocial issues. 12 point review of systems is negative except for those stated above and HPI Patient History Medical History Alcoholism (Chronic) Anemia associated with chronic renal failure (Chronic) Chronic kidney disease, stage 4 (severe) (Chronic) Chronic pain (Chronic) Depression (Chronic) Diabetes type 2, controlled (Chronic) Duodenal ulcer (Acute) GI bleed (Resolved) Gout, arthropathy (Chronic) History of cervical fracture (Resolved) Hyperparathyroidism (Chronic) Hypertension (Chronic) Left leg pain (Chronic) Symptomatic anemia (Chronic) Surgical History H/O cervical spine surgery (Acute) History of colectomy (Resolved) Social History household members: friend(s) and other Smoking Status: Former smoker alcohol intake: current Smoking Status: Former smoker alcohol intake frequency: 0-2 drinks per day Alcohol type: beer Substance Use Type: does not use Exam Initial Vital Signs Initial Vital Signs: Vital Signs Temperature 98.2 F 03/04/19 10:44 Pulse Rate 58 L 03/04/19 10:44 Respiratory Rate 18 03/04/19 10:44 Blood Pressure 174/66 H 03/04/19 10:44 Pulse Oximetry 96 03/04/19 10:44 GENERAL: Alert well-appearing HEENT: Head atraumatic,EOMI, pupils reactive, CARDIOVASCULAR: Regular rate and rhythm without murmurs, rubs or gallops. RESPIRATORY: Breath sounds equal bilaterally, no wheezes rales or rhonchi. ABDOMEN: Soft, nontender. Normoactive bowel sounds all 4 quadrants. No guardin g or rebound. : No CVA tenderness EXTREMITIES: Normal range of motion, no clubbing or edema. Neurovascularly intact NEUROLOGICAL: Alert and oriented x4.Normal gait and speech. Cranial nerves II through XII grossly intact. SKIN: Warm, dry, no laceration, no petechiae, no rashes or lesions. Course Orders Ordered: ED Orders 03/04/19 10:43 Complete Blood Count AUTO DIFF Stat Vital Signs Vital signs: Vital Signs - 8 hr 03/04/19 10:44 03/04/19 11:08 03/04/19 11:32 Temperature 98.2 F Pulse Rate 58 L 52 L 64 Respiratory Rate 18 18 22 Blood Pressure 174/66 H 168/70 H Blood Pressure [Right Arm] 127/89 Pulse Oximetry 96 98 100 MDM - Recheck/Abnormal Lab/Rx Lab Data Attestation: I reviewed the patient's lab results. Result diagrams: 03/04/19 10:43 Labs: Lab Results 03/04/19 Range/Units 10:43 WBC 8.4 (4.5-11.0) X10^3/uL RBC 2.79 L (4.5-5.9) X10^6/uL Hgb 8.5 L (13.5-17.5) g/dL Hct 25.5 L (41-53) % MCV 91.3 (80-100) fL MCH 30.3 (26-34) PG MCHC 33.2 (30-36) % RDW 16.0 H (11.6-14.8) % Plt Count 167 (150-400) X10^3/uL Neut % (Auto) 73.4 (50-75) % Lymph % (Auto) 12.9 L (25-40) % [place] % (Auto) 8.8 (3-14) % Eos % (Auto) 4.5 H (2-4) % Baso % (Auto) 0.4 (0-2) % Neut # (Auto) 6200 (3043-2278) /uL Lymph # (Auto) 1100 (1751-6902) /uL [place] # (Auto) 700 (0-900) /uL Eos # (Auto) 400 (0-450) /uL Baso # (Auto) 0 (0-100) /uL MDM Narrative Medical decision making narrative: Patient is completely asymptomatic hemoglobin hematocrit actually remained stable from 02/23/2019 and minimally decreased from the . He has no sign of active bleeding at this time no indication for any blood transfusion. Recommend outpatient follow-up and re-evaluation. Patient agrees with this plan. Discharge Plan Departure Patient Disposition: Home Clinical Impression: Anemia Qualifiers: Anemia type: unspecified type Qualified Code(s): D64.9 - Anemia, unspecified Discharge Date/Time: 03/04/19 11:33 Instructions: Anemia Activity Restrictions/Additional Instructions: *You have been diagnosed with anemia *What to do: At this time there is minimal change in your blood work no indication for blood transfusion you are not having symptoms of active bleeding. At this time recommend repeat blood work as an outpatient have your PCP do this *Continue to take medications as directed *Follow up with your primary care provider in 2-3 days *Return to ER if you should have vomiting, black stools dizziness lightheadedness heart palpitations or any new, worsening or concerning symptoms Prescriptions: No Action doxazosin 4 mg Tablet 4 mg PO BEDTIME RF: 0 acetaminophen 325 mg Tablet 650 mg PO Q4HR PRN (Reason: As Needed For Fever/Mild Pain) Qty: 100 RF: 0 furosemide 40 mg Tablet 60 mg PO DAILY RF: 0 duloxetine 60 mg capsule,delayed release(DR/EC) 60 mg PO BID RF: 0 polyethylene glycol 3350 17 gram/dose Powder 17 g PO DAILY PRN (Reason: Constipation) RF: 0 cyclobenzaprine 5 mg tablet 5 mg PO TID PRN (Reason: muscle spasm) Qty: 10 RF: 0 silver sulfadiazine [SSD] 1 % cream 1 applic TOPICAL TID RF: 0 lorazepam 0.5 mg tablet 0.5 mg PO TID PRN (Reason: Anxiety) RF: 0 citalopram 20 MG tablet 20 mg PO DAILY RF: 0 glimepiride 1 mg tablet 1 mg PO DAILY RF: 0 lidocaine 5 % adhesive patch,medicated 1 patch TOP DAILY Qty: 30 RF: 0 Referrals: Jim Quintana MD [Primary Care Provider] -
[2019-03-04 10:44] VITALS: BP 174/66; PULSE 58; RESP 18; TEMP 36.8; O2SAT 96; BMI 35.9
[2019-03-04 10:56] LABS: Add Manual Diff / Slide Review NO; Basophils Absolute Auto 0 /uL (0-100); Basophils Percent Auto 0.4 % (0-2); Eosinophils Absolute Auto 400 /uL (0-450); Eosinophils Percent Auto 4.5 % (2-4); Hematocrit 25.5 % (41-53); Hemoglobin 8.5 g/dL (13.5-17.5); Lymphocytes Absolute Auto 1100 /uL (1100-4500); Lymphocytes Percent Auto 12.9 % (25-40); Mean Corpuscular HGB Conc 33.2 % (30-36); Mean Corpuscular Hemoglobin 30.3 PG (26-34); Mean Corpuscular Volume 91.3 fL (80-100); Monocytes Absolute Auto 700 /uL (0-900); Monocytes Percent Auto 8.8 % (3-14); Neutrophils Absolute Auto 6200 /uL (1500-7000); Neutrophils Percent Auto 73.4 % (50-75); Platelet Count 167 X10^3/uL (150-400); Red Blood Cell Count 2.79 X10^6/uL (4.5-5.9); White Blood Cell Count 8.4 X10^3/uL (4.5-11.0)
[2019-03-04 11:08] VITALS: BP 127/89; PULSE 52; RESP 18; O2SAT 98
[2019-03-04 11:32] VITALS: BP 168/70; PULSE 64; RESP 22; O2SAT 100
== END 2019-03-04 11:33 | disposition home or self-care (01) ==
LOC: ED 11:31
PROVIDERS: Emergency Provider Emergency Medicine; PCP Family Medicine
DX: D64.9 Anemia, unspecified (principal)
CPT/HCPCS: 36415; 85025; 99282; 99283

== ENCOUNTER 2019-03-10 17:25 | Inpatient (IN) | payer MEDICARE, MEDICAID, SELFPAY ==
[2019-01-24 12:24] VITALS: BMI 38.7
[2019-01-25 14:14] VITALS: PULSE 56; RESP 16; O2SAT 100
[2019-03-10 17:25] VITALS: BP 174/71; PULSE 93; RESP 18; TEMP 38.8; O2SAT 96; BMI 38.0
--- NOTE | 2019-03-10 17:32 | DI.RAD.S_ITS ---
PROCEDURE: XR CHEST 2V INDICATIONS: fever, vomiting TECHNIQUE: 2 views of the chest were acquired. COMPARISON: [facility], CR, XR CHEST 1V, 01/24/2019, 17:45. FINDINGS: Surgical changes and devices: Unchanged appearance of cervical and lower thoracic spinal fixation hardware Lungs and pleura: Scattered subsegmental atelectasis and/or scarring. No focal consolidation. No pleural effusions or pneumothorax. Mediastinum: Mediastinal contours are normal. Heart size is normal. Bones and chest wall: No suspicious bony abnormalities. Soft tissues appear unremarkable. IMPRESSION: No acute disease Dictated by: Stalin Champion M.D. on 03/10/2019 at 18:12 Approved by: Stalin Champion M.D. on 03/10/2019 at 18:13
--- NOTE | 2019-03-10 17:47 | ED_ITS ---
HPI - Nausea/Vomiting/Diarrhea <Nhan LUZ Courtney - Last Filed: 03/10/19 21:21> General Chief complaint: Nausea/Vomiting/Diarrhea Stated complaint: Vomiting Time Seen by Provider: 03/10/19 17:30 Source: EMS Mode of arrival: EMS Limitations: no limitations History of Present Illness HPI Narrative: This is a 68-year-old male, prior smoker, who presents to ED with [facility] with nausea and vomiting which started today. Patient reports liquid emesis of 4 to 5 times a day today. Patient denies abdominal pain, chest pain, breathing difficulty, urinary symptoms. Patient reports he always has pain since he had an accident and broke cervical spine and has 2 lidocaine patches on upper shoulder when he arrived to ED. patient denies fever but noted afebrile during triage. Patient states he was discharged from [facility] half-way after staying 3 weeks about a week ago after he was transferred from [facility] with diagnosis of GI bleed. Patient has a history of GI bleed, hypertension, alcoholism, chronic renal failure stage 4, duodenal ulcer, cervical fracture, depression, diabetes type 2 and hyper parathyroidism. Related Data Home Medications Medication Instructions Recorded Confirmed citalopram 20 mg PO DAILY 12/25/17 03/10/19 glimepiride 1 mg PO DAILY 03/22/18 03/10/19 doxazosin 4 mg PO BEDTIME 06/07/18 03/10/19 furosemide 60 mg PO DAILY 09/27/18 03/10/19 duloxetine 60 mg PO BID 09/28/18 03/10/19 polyethylene glycol 3350 17 g PO DAILY PRN 09/28/18 03/10/19 lorazepam 0.5 mg PO TID PRN 11/12/18 03/10/19 silver sulfadiazine [SSD] 1 applic TOPICAL TID 11/12/18 03/10/19 melatonin 10 mg PO BEDTIME PRN 03/10/19 03/10/19 pantoprazole 20 mg PO DAILY 03/10/19 03/10/19 Previous Rx's Medication Instructions Recorded lidocaine 1 patch TOP DAILY #30 each 12/19/18 Allergies Allergy/AdvReac Type Severity Reaction Status Date / Time latex Allergy Mild IRRITATION Verified 03/10/19 17:25 carisoprodol [From Soma] Allergy Verified 03/10/19 17:25 hydromorphone Allergy Verified 03/10/19 17:25 Sulfa (Sulfonamide AdvReac Mild N&V 1HOUR Verified 03/10/19 17:25 Antibiotics) AFTER RX, THINKS IT IS RELATED Review of Systems <LUZ Steward - Last Filed: 03/10/19 21:21> Review of Systems Narrative: General: Denies fever, chills, fatigue, malaise, sweats. HEENT: Denies sinus pain, ear pain, sore throat, difficulty swallowing, dizziness. Respiratory: Denies dyspnea, cough, wheezing, hemoptysis, sputum. Cardiovascular: Denies chest pain, palpitations, orthopnea, edema. Gastrointestinal: See HPI : Denies dysuria, frequency, incontinence, hematuria, urinary retention. Musculoskeletal: Reports chronic upper back pain and musculoskeletal pain without new myalgia or arthralgia. Skin: Denies rash, skin lesions, or other. Neurologic: Denies weakness, headache, numbness, change in speech, confusion, seizures, incoordination. Psychiatric: No concerning psychosocial issues. 12-point review of systems is negative except for those stated above. Patient History <LUZ Steward - Last Filed: 03/10/19 21:21> Medical History Alcoholism (Chronic) Anemia associated with chronic renal failure (Chronic) Chronic kidney disease, stage 4 (severe) (Chronic) Chronic pain (Chronic) Depression (Chronic) Diabetes type 2, controlled (Chronic) Duodenal ulcer (Acute) GI bleed (Resolved) Gout, arthropathy (Chronic) History of cervical fracture (Resolved) Hyperparathyroidism (Chronic) Hypertension (Chronic) Left leg pain (Chronic) Symptomatic anemia (Chronic) Surgical History H/O cervical spine surgery (Acute) History of colectomy (Resolved) Social History household members: friend(s) and other Smoking Status: Former smoker alcohol intake: former Smoking Status: Former smoker alcohol intake frequency: 0-2 drinks per day Alcohol type: beer Substance Use Type: does not use Exam <Nhan DEMARIO CourtneyP - Last Filed: 03/10/19 21:21> Narrative Exam Narrative: GEN: Alert, oriented x 3, pale appearing and well nourished, and dry heaving. Head: Normal cephalic, atraumatic. No scalp or temporal tenderness, palpable mass or rash. EYES: Pupils are equal, round, and reactive to light and accommodation. Extraocular muscles are intact bilaterally. There is no subconjunctival hemorrhage, exudate and sclera non-icteric. ENT: Bilateral auditory canals and tympanic membranes clear. Hearing grossly intact. Nose without bleeding, purulent discharge or deviation. Facial sinuses nontender to palpate. Mucous membrane moist, no mucosal lesion. Throat without erythema, tonsillar hypertrophy or exudate. Uvula in midline, airway patent. Neck: Trachea in midline. No JVD, non-tender without lymphadenopathy. No masses or thyroid megaly. Supple, non-tender and no meningeal signs. CARDIAC: Normal regular rate and rhythm with murmurs, no gallops, or rubs. No chest wall tenderness. No peripheral edema, cyanosis or pallor. Capillary refill is less than 2 seconds. RESPIRATORY: Lungs are decreased to auscultate bilaterally. No cough, audible wheezing but no inspiratory or expiratory wheezes to auscultate. No rales, or rhonchi. No stridor, respiratory distress, increase work of breathing, or accessary muscle used. ABD: Abdomen soft, obese, nontender. No guarding or rebound tenderness to palpate. Bowel sounds are normal in all 4 quadrants. There is no palpable masses or organomegaly. Urinary incontinence. EXT: Full painless ROM of all extremities with no loss of sensation, strength, effusion or edema. SKIN: Hot, dry, pale color for patient. No erythema, lesions or rash over visible areas. BACK: Chronic back pain. Uses wheelchair for mobility. NEUROLOGICAL: Alert and oriented to place, time and person. Sensation and motor function intact bilaterally. No facial droops, dysphasia. PSYCHIATRIC: Good judgement and reason, without hallucinations, abnormal affect or abnormal behaviors during the examination. Patient is not suicidal. Initial Vital Signs Initial Vital Signs: Vital Signs Temperature 101.9 F H 03/10/19 17:25 Pulse Rate 93 H 03/10/19 17:25 Respiratory Rate 18 03/10/19 17:25 Blood Pressure 174/71 H 03/10/19 17:25 Pulse Oximetry 96 03/10/19 17:25 <Yonny Reynoso DO - Last Filed: 03/11/19 01:42> Initial Vital Signs Initial Vital Signs: Vital Signs Temperature 101.9 F H 03/10/19 17:25 Pulse Rate 93 H 03/10/19 17:25 Respiratory Rate 18 03/10/19 17:25 Blood Pressure 174/71 H 03/10/19 17:25 Pulse Oximetry 96 03/10/19 17:25 Scores <Nhan Courtney [facility] - Last Filed: 03/10/19 21:21> GCS Emi coma scale eye opening: Spontaneous Emi coma scale verbal response: Orientated Emi coma scale motor response: Obey commands [place] coma scale total score: 15 Course <Nhan CourtneyDEMARIOP - Last Filed: 03/10/19 21:21> Orders Ordered: ED Orders 03/10/19 17:32 XR chest 2V Stat EKG-12 Lead Stat 03/10/19 17:40 B Type Natriuretic Peptide Stat Complete Blood Count AUTO DIFF Stat Comprehensive Metabolic Panel Stat Influenza A & B (PCR) Stat Lipase Stat Procalcitonin Stat Troponin & CK Cardiac Panel Stat 03/10/19 17:52 Lactate (Lactic Acid) Stat 03/10/19 18:15 Blood Culture Stat 03/10/19 18:24 CT abdomen pelvis w con Stat 03/10/19 20:30 Urine Culture Stat Urine Microscopic Stat Acetaminophen (Tylenol) 650 mg PO Q4HR PRN PRN Reason: As Needed For Fever/Mild Pain Citalopram Hydrobromide (Celexa) 20 mg PO DAILY DAVID Cyclobenzaprine HCl (Flexeril) 5 mg PO TID PRN PRN Reason: muscle spasm Doxazosin Mesylate (Cardura) 4 mg PO BEDTIME DAVID Levofloxacin (Levaquin) 750 mg in 150 mls @ 100 mls/hr IV Q24H DAVID Last Infusion: 03/10/19 23:02 Dose: 100 mls/hr Documented by: Infusion: 03/10/19 21:44 Dose: 100 mls/hr Documented by: Admin: 03/10/19 21:27 Dose: 100 mls/hr Documented by: BSMEN Sodium Chloride (Normal Saline 0.9%) 1,000 mls @ 150 mls/hr IV CONT DAVID Last Admin: 03/10/19 22:55 Dose: 150 mls/hr Documented by: MAURY Lidocaine (Lidoderm) 1 each TOP DAILY DAVID Ondansetron HCl (Zofran) 4 mg IV Q4HR DAVID Discontinued Medications Acetaminophen (Tylenol) 650 mg PO NOW ONE Stop: 03/10/19 18:45 Last Admin: 03/10/19 19:13 Dose: 650 mg Documented by: RIMA Sodium Chloride (Normal Saline 0.9%) 1,000 mls @ 125 mls/hr IV CONT DAVID Last Infusion: 03/10/19 21:43 Dose: 125 mls/hr Documented by: Admin: 03/10/19 18:42 Dose: 125 mls/hr Documented by: RIMA Ondansetron HCl (Zofran) 4 mg IV NOW ONE Stop: 03/10/19 17:38 Last Admin: 03/10/19 17:49 Dose: 4 mg Documented by: RIMA Vital Signs Vital signs: Vital Signs - 8 hr 03/10/19 19:26 03/10/19 19:27 Pulse Oximetry 86 L 94 <Yonny Reynoso DO - Last Filed: 03/11/19 01:42> Orders Ordered: ED Orders 03/10/19 17:32 XR chest 2V Stat EKG-12 Lead Stat 03/10/19 17:40 B Type Natriuretic Peptide Stat Complete Blood Count AUTO DIFF Stat Comprehensive Metabolic Panel Stat Influenza A & B (PCR) Stat Lipase Stat Procalcitonin Stat Troponin & CK Cardiac Panel Stat 03/10/19 17:52 Lactate (Lactic Acid) Stat 03/10/19 18:15 Blood Culture Stat 03/10/19 18:24 CT abdomen pelvis w con Stat 03/10/19 20:30 Urine Culture Stat Urine Microscopic Stat Acetaminophen (Tylenol) 650 mg PO Q4HR PRN PRN Reason: As Needed For Fever/Mild Pain Citalopram Hydrobromide (Celexa) 20 mg PO DAILY DAVID Cyclobenzaprine HCl (Flexeril) 5 mg PO TID PRN PRN Reason: muscle spasm Doxazosin Mesylate (Cardura) 4 mg PO BEDTIME DAVID Levofloxacin (Levaquin) 750 mg in 150 mls @ 100 mls/hr IV Q24H DAVID Last Infusion: 03/10/19 23:02 Dose: 100 mls/hr Documented by: Infusion: 03/10/19 21:44 Dose: 100 mls/hr Documented by: Admin: 03/10/19 21:27 Dose: 100 mls/hr Documented by: JORGE Sodium Chloride (Normal Saline 0.9%) 1,000 mls @ 150 mls/hr IV CONT DAVID Last Admin: 03/10/19 22:55 Dose: 150 mls/hr Documented by: MAURY Lidocaine (Lidoderm) 1 each TOP DAILY DAVID Ondansetron HCl (Zofran) 4 mg IV Q4HR DAVID Discontinued Medications Acetaminophen (Tylenol) 650 mg PO NOW ONE Stop: 03/10/19 18:45 Last Admin: 03/10/19 19:13 Dose: 650 mg Documented by: RIMA Sodium Chloride (Normal Saline 0.9%) 1,000 mls @ 125 mls/hr IV CONT DAVID Last Infusion: 03/10/19 21:43 Dose: 125 mls/hr Documented by: Admin: 03/10/19 18:42 Dose: 125 mls/hr Documented by: RIMA Ondansetron HCl (Zofran) 4 mg IV NOW ONE Stop: 03/10/19 17:38 Last Admin: 03/10/19 17:49 Dose: 4 mg Documented by: RIMA Vital Signs Vital signs: Vital Signs - 8 hr 03/10/19 19:26 03/10/19 19:27 Pulse Oximetry 86 L 94 MDM - Nausea/Vomiting/Diarrhea <Nhan ChavesLUZ Pacheco - Last Filed: 03/10/19 21:21> Differential Diagnosis Differential diagnosis: Likely gastroenteritis and other (UTI, pneumonia, influenza) Medical Records Attestation: I reviewed the patient's medical records. Lab Data Attestation: I reviewed the patient's lab results. Result diagrams: 03/10/19 17:40 03/10/19 17:40 Labs: Lab Results 03/10/19 03/10/19 03/10/19 Range/Units 17:40 17:40 17:40 WBC 16.4 H (4.5-11.0) X10^3/uL RBC 3.00 L (4.5-5.9) X10^6/uL Hgb 8.8 L (13.5-17.5) g/dL Hct 26.8 L (41-53) % MCV 89.4 (80-100) fL MCH 29.5 (26-34) PG MCHC 32.9 (30-36) % RDW 16.5 H (11.6-14.8) % Plt Count 249 (150-400) X10^3/uL Neut % (Auto) Not Reportable Lymph % (Auto) Not Reportable Brooke % (Auto) Not Reportable Eos % (Auto) Not Reportable Baso % (Auto) Not Reportable Lymph # (Auto) Not Reportable Brooke # (Auto) Not Reportable Baso # (Auto) Not Reportable Total Counted 100 Seg Neutrophils % 84.0 H (38-70) % Band Neutrophils % 7.0 (3-7) % Lymphocytes % (Manual) 4.0 L (25-45) % Monocytes % (Manual) 3.0 (2-11) % Eosinophils % (Manual) 2.0 (2-4) % Neutrophils # (Manual) 89829 H (2683-7739) /uL RBC Morphology Normal morphology Sodium 140 (137-145) mmol/L Potassium 4.0 (3.4-5.1) mmol/L Chloride 102 (98-107) mmol/L Carbon Dioxide 28 (22-32) mmol/L BUN 34 H (9-20) mg/dL Creatinine 2.00 H (0.66-1.25) mg/dL Estimated GFR 33.5 L (>60) mL/min BUN/Creatinine Ratio 17.0 (6-22) Glucose 135 H (80-110) mg/dL Lactate (0.7-2.1) mmol/L Calcium 8.3 L (8.4-10.2) mg/dL Total Bilirubin 0.7 (0.2-1.3) mg/dL AST 15 L (17-59) IU/L ALT 9 (<50) IU/L Alkaline Phosphatase 103 (38-126) U/L Total Creatine Kinase (55-170) U/L CK-MB (CK-2) CK-MB (CK-2) Rel Index Troponin I (0.01-0.034) ng/mL B-Natriuretic Peptide (<100) Total Protein 7.2 (6.3-8.2) g/dL Albumin 4.1 (3.5-5.0) g/dL Globulin 3.1 (1.7-4.1) g/dL Albumin/Globulin Ratio 1.3 (1.0-2.8) Lipase 44 (23-300) U/L Procalcitonin 0.09 (<0.5) ng/mL Urine RBC (0-5/HPF) Urine WBC (0-5/HPF) Urine Bacteria (None) Ur Culture Indicated? Ethyl Alcohol ( - 10) mg/dL Influenza A (RT-PCR) (NEGATIVE) Influenza B (RT-PCR) (NEGATIVE) 03/10/19 03/10/19 03/10/19 Range/Units 17:40 17:40 17:40 WBC (4.5-11.0) X10^3/uL RBC (4.5-5.9) X10^6/uL Hgb (13.5-17.5) g/dL Hct (41-53) % MCV (80-100) fL MCH (26-34) PG MCHC (30-36) % RDW (11.6-14.8) % Plt Count (150-400) X10^3/uL Neut % (Auto) Lymph % (Auto) Brooke % (Auto) Eos % (Auto) Baso % (Auto) Lymph # (Auto) Brooke # (Auto) Baso # (Auto) Total Counted Seg Neutrophils % (38-70) % Band Neutrophils % (3-7) % Lymphocytes % (Manual) (25-45) % Monocytes % (Manual) (2-11) % Eosinophils % (Manual) (2-4) % Neutrophils # (Manual) (9656-5190) /uL RBC Morphology Sodium (137-145) mmol/L Potassium (3.4-5.1) mmol/L Chloride (98-107) mmol/L Carbon Dioxide (22-32) mmol/L BUN (9-20) mg/dL Creatinine (0.66-1.25) mg/dL Estimated GFR (>60) mL/min BUN/Creatinine Ratio (6-22) Glucose (80-110) mg/dL Lactate (0.7-2.1) mmol/L Calcium (8.4-10.2) mg/dL Total Bilirubin (0.2-1.3) mg/dL AST (17-59) IU/L ALT (<50) IU/L Alkaline Phosphatase (38-126) U/L Total Creatine Kinase 52 L (55-170) U/L CK-MB (CK-2) TNP CK-MB (CK-2) Rel Index TNP Troponin I < 0.012 (0.01-0.034) ng/mL B-Natriuretic Peptide < 100 (<100) Total Protein (6.3-8.2) g/dL Albumin (3.5-5.0) g/dL Globulin (1.7-4.1) g/dL Albumin/Globulin Ratio (1.0-2.8) Lipase (23-300) U/L Procalcitonin (<0.5) ng/mL Urine RBC (0-5/HPF) Urine WBC (0-5/HPF) Urine Bacteria (None) Ur Culture Indicated? Ethyl Alcohol ( - 10) mg/dL Influenza A (RT-PCR) Flu a negative (NEGATIVE) Influenza B (RT-PCR) Flu b negative (NEGATIVE) 03/10/19 03/10/19 03/10/19 Range/Units 17:40 17:52 20:30 WBC (4.5-11.0) X10^3/uL RBC (4.5-5.9) X10^6/uL Hgb (13.5-17.5) g/dL Hct (41-53) % MCV (80-100) fL MCH (26-34) PG MCHC (30-36) % RDW (11.6-14.8) % Plt Count (150-400) X10^3/uL Neut % (Auto) Lymph % (Auto) Brooke % (Auto) Eos % (Auto) Baso % (Auto) Lymph # (Auto) Brooke # (Auto) Baso # (Auto) Total Counted Seg Neutrophils % (38-70) % Band Neutrophils % (3-7) % Lymphocytes % (Manual) (25-45) % Monocytes % (Manual) (2-11) % Eosinophils % (Manual) (2-4) % Neutrophils # (Manual) (9008-3945) /uL RBC Morphology Sodium (137-145) mmol/L Potassium (3.4-5.1) mmol/L Chloride (98-107) mmol/L Carbon Dioxide (22-32) mmol/L BUN (9-20) mg/dL Creatinine (0.66-1.25) mg/dL Estimated GFR (>60) mL/min BUN/Creatinine Ratio (6-22) Glucose (80-110) mg/dL Lactate 0.8 (0.7-2.1) mmol/L Calcium (8.4-10.2) mg/dL Total Bilirubin (0.2-1.3) mg/dL AST (17-59) IU/L ALT (<50) IU/L Alkaline Phosphatase (38-126) U/L Total Creatine Kinase (55-170) U/L CK-MB (CK-2) CK-MB (CK-2) Rel Index Troponin I (0.01-0.034) ng/mL B-Natriuretic Peptide (<100) Total Protein (6.3-8.2) g/dL Albumin (3.5-5.0) g/dL Globulin (1.7-4.1) g/dL Albumin/Globulin Ratio (1.0-2.8) Lipase (23-300) U/L Procalcitonin (<0.5) ng/mL Urine RBC 1-5/hpf (0-5/HPF) Urine WBC 10-30/hpf H (0-5/HPF) Urine Bacteria Many (>30) H (None) Ur Culture Indicated? Specimen cultured Ethyl Alcohol < 10 ( - 10) mg/dL Influenza A (RT-PCR) (NEGATIVE) Influenza B (RT-PCR) (NEGATIVE) Urine Dip Bedside Urine Glucose Negative Bedside Urine Bilirubin - Negative Bedside Urine Ketone - Negative Urine Specific [place] 1.010 Bedside Urine Occult Blood +/- Bedside Urine pH 6.0 Bedside Urine Protein + 30 Bedside Urine Urobilinogen - Negative Bedside Urine Nitrite - Negative Bedside Urine Leukocytes + 70 Esterase Imaging Data Chest x-ray: Radiologist's Impression: [address] [address] XRay Report Signed Patient: Cristóbal Tubbs WMR#: [id number] : 2Acct:[id number] Age/Sex: 68 / MDate of Service: 03/10/19 Loc: ED Accession Number: [id number] Procedure: XR chest 2V Ordering Provider: Nhan Courtney PROCEDURE: XR CHEST 2V INDICATIONS: fever, vomiting TECHNIQUE: 2 views of the chest were acquired. COMPARISON: [facility], CR, XR CHEST 1V, 01/24/2019, 17:45. FINDINGS: Surgical changes and devices: Unchanged appearance of cervical and lower thoracic spinal fixation hardware Lungs and pleura: Scattered subsegmental atelectasis and/or scarring. No focal consolidation. No pleural effusions or pneumothorax. Mediastinum: Mediastinal contours are normal. Heart size is normal. Bones and chest wall: No suspicious bony abnormalities. Soft tissues appear unremarkable. IMPRESSION: No acute disease Dictated by: Stalin Champion M.D. on 03/10/2019 at 18:12 Approved by: Stalin Champion M.D. on 03/10/2019 at 18:13 CT scan - abdomen/pelvis: Radiologist's Impression: [place] [address] CT Scan Report Signed Patient: Cristóbal Tubbs WMR#: [id number] : 2Acct:[id number] Age/Sex: 68 / MDate of Service: 03/10/19 Loc: ED Accession Number: [id number] Procedure: CT abdomen pelvis w con Ordering Provider: Nhan Courtney PROCEDURE: CT ABDOMEN PELVIS W CON INDICATIONS: fever, n/v, recent GI bleed TECHNIQUE: After the administration of intravenous contrast, 5 mm thick sections acquired from the diaphragm to the symphysis. 5 mm coronal and sagittal reformats were acquired. For radiation dose reduction, the following was used: automated exposure control, adjustment of mA and/or kV according to patient size. COMPARISON: [facility], CT, CT ABDOMEN PELVIS WO CON, 01/24/2019, 21:46. FINDINGS: Image quality: Excellent. ABDOMEN: Lung bases: Lung bases are clear. Heart size is normal. Coronary artery calc ifications are present. Solid organs: Liver is normal in size and enhancement. Gallbladder unrema rkable. Biliary system is non dilated. Pancreas enhances normally. Spleen is normal in size and enhancement. No adrenal nodules. Kidneys demonstrate normal size and enhancement, without hydronephrosis. Punctate nonobstructing right renal calculus image 44/2. Peritoneum and bowel: Bowel loops demonstrate normal wall thickness and caliber. No free fluid or air. Appendix is not clearly identified however no suspicious pericecal inflammatory changes are seen. Nodes and vessels: No retroperitoneal or mesenteric adenopathy by size criteria. Aorta and inferior vena cava are normal in size. Status post ventral hernia repair. There is a small left paramedian ventral hernia containing a bowel loop, although decreased in size since the prior study. No evidence of bowel obstruction. PELVIS: Circumferentially thickened bladder wall however grossly unchanged appearance Bilateral fat containing inguinal hernias. Bones: No suspicious bony lesions. No vertebral body compression fractures. IMPRESSION: Overall, no acute process. Appendix is not clearly identified however no suspicious pericecal inflammatory changes are seen. Circumferential bladder wall thickening. Recommend clinical correlation. This finding grossly unchanged. Additional chronic and incidental findings as above. Dictated by: Stalin Champion M.D. on 03/10/2019 at 19:50 Approved by: Stalin Champion M.D. on 03/10/2019 at 19:58 ECG Data Attestation: I personally reviewed and interpreted this ECG as follows: Prior ECG tracings: available for review Interpretation: SR rate at 77. Moderate intraventricular conduction delay. Normal [place]. [place] int 164, normal QRS, QT/QTc 416/[address] elevation or depression noted MDM Narrative Medical decision making narrative: This is a 68-year-old male who is chronically fragile presents to ED with [facility] with c/o nausea and vomiting times 4-5 episodes which started today. Patient denies abdominal pain, breathing difficulty, short of breath, chest pain and was unaware of fever. Patient was recently released to home from [facility] last after he was released from [facility] after hospitalized for 3 weeks with cardiac issues and intubated for 5 days, confusion, and weakness according to patient's sister. Patient did relatively well for 1-2 days but has been having fatigued since then. Looking at the patient's old records, the patient was hospitalized for transfusion and had gone through possible ETOH withdrawl. He ended up having elevated troponins with CPK and cardiac CPK. He was transfer to [facility] with NSTEMI and pulmonary edema. Today WBC is 16.4 with H/H of 8.8/26.8 as the patient's baseline with chronic anemia. Band neutrophil was 7 and manual neutrophil is highly elevated as 14,924. BUN today was 34 with creatinine of 2.0 with EGFR 33.5. Patient has chronic stage 4 kidney disease and this is actually better than previous GFR and creatinine level of 2.2 with GFR of 30 in the past. Calcium was 8.3. Troponin was negative. EKG with sinus rhythm with moderate intraventricular conduction delay which is similar from previous EKG. Flu was negative. Patient has urinary incontinence. Cath UA was obtained with normal saline. UA shows positive leuks, protein, blood with negative nitrite. Microscopic UA shows WBC and many bacteria and pending for culture. CXR indicates no focal infiltration but showed scattered subsegmental atelectasis and for old scarring. CT of Abd/pelvis shows no obvious appendectomy but no suspicious pericecal inflammatory changes, circumferential bladder or thickening which is no change from previous CTs. O2 Sat at rest was 86-87% in RA and has ERIKA O2 sat improved with 2 L of nasal cannula O2 up to 96%. Patient lives at a house with 2 roommates. Sister thinks patient has not been taking alcohol at least last 2 months. Added ETOH level from initial blood draw. Dr. Jefferson was contacted and she kindly accepted for the patient's care. Added IV Levaquin 750 mg daily as requested. <Yonny Reynoso, DO - Last Filed: 03/11/19 01:42> Lab Data Labs: Lab Results 03/10/19 03/10/19 03/10/19 Range/Units 17:40 17:40 17:40 WBC 16.4 H (4.5-11.0) X10^3/uL RBC 3.00 L (4.5-5.9) X10^6/uL Hgb 8.8 L (13.5-17.5) g/dL Hct 26.8 L (41-53) % MCV 89.4 (80-100) fL MCH 29.5 (26-34) PG MCHC 32.9 (30-36) % RDW 16.5 H (11.6-14.8) % Plt Count 249 (150-400) X10^3/uL Neut % (Auto) Not Reportable Lymph % (Auto) Not Reportable Brooke % (Auto) Not Reportable Eos % (Auto) Not Reportable Baso % (Auto) Not Reportable Lymph # (Auto) Not Reportable Brooke # (Auto) Not Reportable Baso # (Auto) Not Reportable Total Counted 100 Seg Neutrophils % 84.0 H (38-70) % Band Neutrophils % 7.0 (3-7) % Lymphocytes % (Manual) 4.0 L (25-45) % Monocytes % (Manual) 3.0 (2-11) % Eosinophils % (Manual) 2.0 (2-4) % Neutrophils # (Manual) 36441 H (1316-0845) /uL RBC Morphology Normal morphology Sodium 140 (137-145) mmol/L Potassium 4.0 (3.4-5.1) mmol/L Chloride 102 (98-107) mmol/L Carbon Dioxide 28 (22-32) mmol/L BUN 34 H (9-20) mg/dL Creatinine 2.00 H (0.66-1.25) mg/dL Estimated GFR 33.5 L (>60) mL/min BUN/Creatinine Ratio 17.0 (6-22) Glucose 135 H (80-110) mg/dL Lactate (0.7-2.1) mmol/L Calcium 8.3 L (8.4-10.2) mg/dL Total Bilirubin 0.7 (0.2-1.3) mg/dL AST 15 L (17-59) IU/L ALT 9 (<50) IU/L Alkaline Phosphatase 103 (38-126) U/L Total Creatine Kinase (55-170) U/L CK-MB (CK-2) CK-MB (CK-2) Rel Index Troponin I (0.01-0.034) ng/mL B-Natriuretic Peptide (<100) Total Protein 7.2 (6.3-8.2) g/dL Albumin 4.1 (3.5-5.0) g/dL Globulin 3.1 (1.7-4.1) g/dL Albumin/Globulin Ratio 1.3 (1.0-2.8) Lipase 44 (23-300) U/L Procalcitonin 0.09 (<0.5) ng/mL Urine RBC (0-5/HPF) Urine WBC (0-5/HPF) Urine Bacteria (None) Ur Culture Indicated? Ethyl Alcohol ( - 10) mg/dL Influenza A (RT-PCR) (NEGATIVE) Influenza B (RT-PCR) (NEGATIVE) 03/10/19 03/10/19 03/10/19 Range/Units 17:40 17:40 17:40 WBC (4.5-11.0) X10^3/uL RBC (4.5-5.9) X10^6/uL Hgb (13.5-17.5) g/dL Hct (41-53) % MCV (80-100) fL MCH (26-34) PG MCHC (30-36) % RDW (11.6-14.8) % Plt Count (150-400) X10^3/uL Neut % (Auto) Lymph % (Auto) Brooke % (Auto) Eos % (Auto) Baso % (Auto) Lymph # (Auto) Brooke # (Auto) Baso # (Auto) Total Counted Seg Neutrophils % (38-70) % Band Neutrophils % (3-7) % Lymphocytes % (Manual) (25-45) % Monocytes % (Manual) (2-11) % Eosinophils % (Manual) (2-4) % Neutrophils # (Manual) (2510-1657) /uL RBC Morphology Sodium (137-145) mmol/L Potassium (3.4-5.1) mmol/L Chloride (98-107) mmol/L Carbon Dioxide (22-32) mmol/L BUN (9-20) mg/dL Creatinine (0.66-1.25) mg/dL Estimated GFR (>60) mL/min BUN/Creatinine Ratio (6-22) Glucose (80-110) mg/dL Lactate (0.7-2.1) mmol/L Calcium (8.4-10.2) mg/dL Total Bilirubin (0.2-1.3) mg/dL AST (17-59) IU/L ALT (<50) IU/L Alkaline Phosphatase (38-126) U/L Total Creatine Kinase 52 L (55-170) U/L CK-MB (CK-2) TNP CK-MB (CK-2) Rel Index TNP Troponin I < 0.012 (0.01-0.034) ng/mL B-Natriuretic Peptide < 100 (<100) Total Protein (6.3-8.2) g/dL Albumin (3.5-5.0) g/dL Globulin (1.7-4.1) g/dL Albumin/Globulin Ratio (1.0-2.8) Lipase (23-300) U/L Procalcitonin (<0.5) ng/mL Urine RBC (0-5/HPF) Urine WBC (0-5/HPF) Urine Bacteria (None) Ur Culture Indicated? Ethyl Alcohol ( - 10) mg/dL Influenza A (RT-PCR) Flu a negative (NEGATIVE) Influenza B (RT-PCR) Flu b negative (NEGATIVE) 03/10/19 03/10/19 03/10/19 Range/Units 17:40 17:52 20:30 WBC (4.5-11.0) X10^3/uL RBC (4.5-5.9) X10^6/uL Hgb (13.5-17.5) g/dL Hct (41-53) % MCV (80-100) fL MCH (26-34) PG MCHC (30-36) % RDW (11.6-14.8) % Plt Count (150-400) X10^3/uL Neut % (Auto) Lymph % (Auto) [place] % (Auto) Eos % (Auto) Baso % (Auto) Lymph # (Auto) [place] # (Auto) Baso # (Auto) Total Counted Seg Neutrophils % (38-70) % Band Neutrophils % (3-7) % Lymphocytes % (Manual) (25-45) % Monocytes % (Manual) (2-11) % Eosinophils % (Manual) (2-4) % Neutrophils # (Manual) (5433-1268) /uL RBC Morphology Sodium (137-145) mmol/L Potassium (3.4-5.1) mmol/L Chloride (98-107) mmol/L Carbon Dioxide (22-32) mmol/L BUN (9-20) mg/dL Creatinine (0.66-1.25) mg/dL Estimated GFR (>60) mL/min BUN/Creatinine Ratio (6-22) Glucose (80-110) mg/dL Lactate 0.8 (0.7-2.1) mmol/L Calcium (8.4-10.2) mg/dL Total Bilirubin (0.2-1.3) mg/dL AST (17-59) IU/L ALT (<50) IU/L Alkaline Phosphatase (38-126) U/L Total Creatine Kinase (55-170) U/L CK-MB (CK-2) CK-MB (CK-2) Rel Index Troponin I (0.01-0.034) ng/mL B-Natriuretic Peptide (<100) Total Protein (6.3-8.2) g/dL Albumin (3.5-5.0) g/dL Globulin (1.7-4.1) g/dL Albumin/Globulin Ratio (1.0-2.8) Lipase (23-300) U/L Procalcitonin (<0.5) ng/mL Urine RBC 1-5/hpf (0-5/HPF) Urine WBC 10-30/hpf H (0-5/HPF) Urine Bacteria Many (>30) H (None) Ur Culture Indicated? Specimen cultured Ethyl Alcohol < 10 ( - 10) mg/dL Influenza A (RT-PCR) (NEGATIVE) Influenza B (RT-PCR) (NEGATIVE) Urine Dip Bedside Urine Glucose Negative Bedside Urine Bilirubin - Negative Bedside Urine Ketone - Negative Urine Specific [place] 1.010 Bedside Urine Occult Blood +/- Bedside Urine pH 6.0 Bedside Urine Protein + 30 Bedside Urine Urobilinogen - Negative Bedside Urine Nitrite - Negative Bedside Urine Leukocytes + 70 Esterase Discharge Plan Departure Patient Disposition: Admitted As Inpatient Clinical Impression: Acute UTI Fever Qualifiers: Fever type: unspecified Qualified Code(s): R50.9 - Fever, unspecified Nausea & vomiting Qualifiers: Vomiting type: unspecified Vomiting Intractability: unspecified Qualified Code(s): R11.2 - Nausea with vomiting, unspecified Discharge Date/Time: 03/10/19 21:46 Admit Date/Time: 03/10/19 20:51 Admit Provider: Arcelia Jefferson
[2019-03-10] MEDS: ONDANSETRON 4 MG/2 ML INJ IV (17:49)
[2019-03-10 17:54] LABS: Hemoglobin 8.8 g/dL (13.5-17.5)
[2019-03-10 17:56] LABS: Hematocrit 26.8 % (41-53); Mean Corpuscular HGB Conc 32.9 % (30-36); Mean Corpuscular Hemoglobin 29.5 PG (26-34); Mean Corpuscular Volume 89.4 fL (80-100); Platelet Count 249 X10^3/uL (150-400); Red Cell Distribution Width 16.5 % (11.6-14.8); White Blood Cell Count 16.4 X10^3/uL (4.5-11.0)
[2019-03-10 17:59] LABS: Add Manual Diff / Slide Review YES
[2019-03-10 18:01] LABS: Alanine Aminotransferase 9 IU/L (<50); Albumin 4.1 g/dL (3.5-5.0); Albumin Globulin Ratio 1.3 (1.0-2.8); Alkaline Phosphatase 103 U/L (38-126); Aspartate Aminotransferase 15 IU/L (17-59); Bilirubin Total 0.7 mg/dL (0.2-1.3); Blood Urea Nitrogen 34 mg/dL (9-20); Calcium 8.3 mg/dL (8.4-10.2); Carbon Dioxide 28 mmol/L (22-32); Chloride 102 mmol/L (98-107); Estimated Glomerular Filt Rate 33.5 mL/min (>60); Globulin 3.1 g/dL (1.7-4.1); Glucose 135 mg/dL (80-110); HEMOLYSIS < 15 (0-50); Lipase 44 U/L (23-300); Sodium 140 mmol/L (137-145); Total Protein 7.2 g/dL (6.3-8.2)
[2019-03-10 18:08] LABS: B Type Natriuretic Peptide < 100 (<100)
[2019-03-10 18:13] LABS: Neutrophils Absolute Manual 14924 /uL (3000-5900); RBC Morphology Normal Morphology; Total Cells Counted 100
[2019-03-10 18:14] LABS: Lactate (Lactic Acid) 0.8 mmol/L (0.7-2.1)
[2019-03-10 18:19] LABS: Influenza A - CEPHEID Flu A NEGATIVE (NEGATIVE); Influenza B - CEPHEID Flu B NEGATIVE (NEGATIVE); Procalcitonin 0.09 ng/mL (<0.5)
--- NOTE | 2019-03-10 18:24 | DI.CT.S_ITS ---
PROCEDURE: CT ABDOMEN PELVIS W CON INDICATIONS: fever, n/v, recent GI bleed TECHNIQUE: After the administration of intravenous contrast, 5 mm thick sections acquired from the diaphragm to the symphysis. 5 mm coronal and sagittal reformats were acquired. For radiation dose reduction, the following was used: automated exposure control, adjustment of mA and/or kV according to patient size. COMPARISON: [facility], CT, CT ABDOMEN PELVIS WO [facility], 01/24/2019, 21:46. FINDINGS: Image quality: Excellent. ABDOMEN: Lung bases: Lung bases are clear. Heart size is normal. Coronary artery calcifications are present. Solid organs: Liver is normal in size and enhancement. Gallbladder unremarkable. Biliary system is non dilated. Pancreas enhances normally. Spleen is normal in size and enhancement. No adrenal nodules. Kidneys demonstrate normal size and enhancement, without hydronephrosis. Punctate nonobstructing right renal calculus image 44/2. Peritoneum and bowel: Bowel loops demonstrate normal wall thickness and caliber. No free fluid or air. Appendix is not clearly identified however no suspicious pericecal inflammatory changes are seen. Nodes and vessels: No retroperitoneal or mesenteric adenopathy by size criteria. Aorta and inferior vena cava are normal in size. Status post ventral hernia repair. There is a small left paramedian ventral hernia containing a bowel loop, although decreased in size since the prior study. No evidence of bowel obstruction. PELVIS: Circumferentially thickened bladder wall however grossly unchanged appearance Bilateral fat containing inguinal hernias. Bones: No suspicious bony lesions. No vertebral body compression fractures. IMPRESSION: Overall, no acute process. Appendix is not clearly identified however no suspicious pericecal inflammatory changes are seen. Circumferential bladder wall thickening. Recommend clinical correlation. This finding grossly unchanged. Additional chronic and incidental findings as above. Dictated by: Stalin Champion M.D. on 03/10/2019 at 19:50 Approved by: Stalin Champion M.D. on 03/10/2019 at 19:58
--- NOTE | 2019-03-10 18:39 | PC.NURSE ---
pt incontinent of urine. assisted to remove clothes, condom cath placed with drainage bag for urine collection. pt tolerated well.
[2019-03-10] MEDS: SODIUM CHLORIDE 0.9% 1,000 ML 125 ML IV (18:42)
[2019-03-10] MEDS: ACETAMINOPHEN 325 MG TABLET 650 MG PO (19:13)
--- NOTE | 2019-03-10 19:17 | PC.NURSE ---
Pt resting in bed, reports he feels better. No urine in condom cath bag yet, IVF infusing, pt tolerating sips of water by mouth. Pt and family updated to plan of care.
[2019-03-10 19:26] VITALS: O2SAT 86
[2019-03-10 19:27] VITALS: O2SAT 94
[2019-03-10 19:33] LABS: Creatine Kinase 52 U/L (55-170)
[2019-03-10 19:45] LABS: Troponin I < 0.012 ng/mL (0.01-0.034)
[2019-03-10 21:00] LABS: Bacteria Urine Many (>30); Culture Indicated Urine Specimen Cultured; RBC Urine 1-5/HPF (0-5/HPF); WBC Urine 10-30/HPF (0-5/HPF)
[2019-03-10] MEDS: levoFLOXacin 750 MG/150 ML PIGGYBACK 100 MG IV (21:27)
[2019-03-10 21:34] LABS: Ethanol (ETOH) < 10 mg/dL
[2019-03-10 22:02] VITALS: BP 126/55; PULSE 76; RESP 17; TEMP 37.5; O2SAT 92
[2019-03-10 22:12] VITALS: BMI 38.0
--- NOTE | 2019-03-10 22:32 | PC.NURSE ---
Pt floor care to ICU room 103 from E.R. Pt is awake, alert, conversant. Sister accompanies pt and assists with medication reconciliation. Pt denies pain, denies nausea. Lidocaine patch to back. Able to assist with turning in bed. Inc. smear brown stool. Pedal pulse right foot present with doppler. Erythema to RLE. Coban wrap intact to LLE and unable to palpate pulse d/t wrap. Pt admits to neuropathy to feet BL. Is able to move feet BL upon command and states minimal sensation. Reports is wheelchair bound s/p cervical fracture. Appropriate mentation and conversation. Oriented to bed, call light and plan of care. Reports is continent of urine and can use urinal when needed. Scattered bruises to abdomen.
[2019-03-10] MEDS: SODIUM CHLORIDE 0.9% 1,000 ML 150 ML IV (22:55)
[2019-03-10 23:45] VITALS: BP 132/53; PULSE 78; RESP 16; TEMP 37.1; O2SAT 99
[2019-03-11] VITALS (8 sets, daily range): BP systolic 122–165; BP diastolic 53–76; PULSE 77–87; RESP 16–26; TEMP 37–37.7; O2SAT 91–97
[2019-03-11] MEDS: DOXAZOSIN 4 MG TABLET PO ×2 (00:05→20:27)
[2019-03-11 05:00] LABS: Add Manual Diff / Slide Review NO; Basophils Absolute Auto 0 /uL (0-100); Basophils Percent Auto 0.2 % (0-2); Eosinophils Absolute Auto 100 /uL (0-450); Eosinophils Percent Auto 0.6 % (2-4); Hematocrit 22.9 % (41-53); Hemoglobin 7.7 g/dL (13.5-17.5); Lymphocytes Absolute Auto 800 /uL (1100-4500); Lymphocytes Percent Auto 5.3 % (25-40); Mean Corpuscular HGB Conc 33.7 % (30-36); Mean Corpuscular Hemoglobin 30.5 PG (26-34); Mean Corpuscular Volume 90.5 fL (80-100); Monocytes Absolute Auto 1600 /uL (0-900); Monocytes Percent Auto 10.1 % (3-14); Neutrophils Absolute Auto 13400 /uL (1500-7000); Neutrophils Percent Auto 83.8 % (50-75); Platelet Count 210 X10^3/uL (150-400); Red Blood Cell Count 2.53 X10^6/uL (4.5-5.9); Red Cell Distribution Width 16.1 % (11.6-14.8)
[2019-03-11 05:08] LABS: Alanine Aminotransferase 8 IU/L (<50); Albumin 3.3 g/dL (3.5-5.0); Albumin Globulin Ratio 1.1 (1.0-2.8); Alkaline Phosphatase 79 U/L (38-126); Aspartate Aminotransferase 12 IU/L (17-59); BUN Creatinine Ratio 15.2 (6-22); Bilirubin Total 0.6 mg/dL (0.2-1.3); Blood Urea Nitrogen 32 mg/dL (9-20); Calcium 7.3 mg/dL (8.4-10.2); Carbon Dioxide 26 mmol/L (22-32); Chloride 102 mmol/L (98-107); Estimated Glomerular Filt Rate 31.7 mL/min (>60); Globulin 2.9 g/dL (1.7-4.1); Glucose 113 mg/dL (80-110); HEMOLYSIS < 15 (0-50); Potassium 3.9 mmol/L (3.4-5.1); Sodium 137 mmol/L (137-145); Total Protein 6.2 g/dL (6.3-8.2)
--- NOTE | 2019-03-11 07:52 | P.HP_ITS ---
History of Present Illness History of Present Illness Date Patient Seen: 03/11/19 Time Patient Seen: 07:52 Chief complaint: Vomiting Narrative: This 68-year-old male, prior smoker, with history of GI bleed, hypertension, alcoholism, chronic renal failure stage 4, duodenal ulcer, cervical fracture, depression, diabetes mellitus type 2, spinal cord injury with central cord syndrome with fusion of the thoracic spine is admitted from the ED with fever of unknown source and weakness. Chief complaint included emesis x 4- 5 for 1 day associated weakness that is chronic and worsening. Recently discharged from [facility] in the last week after 3 weeks of recovery from a GI bleed due to shallow duodenal ulcerations. He was transferred there from [facility] where he had been intubated and undergone transfusion for the same in addition to NSTEMI, alcohol withdrawal syndrome with delirium, acute pulmonary edema and tracheobronchitis. Enlarged ventricles were also noted during admission, neurology consulted regarding possible NPH, possible but thought not to be likely. Vital signs upon presentation to the ED included a temperature 101.9?, blood pressure 134/71, pulse 93, respirations 18, O2 saturation 96% with desats to 86%. Lab workup significant for an elevated WBC at 16.4 with absolute neutrophils at 13,400. H&H (7.7/22.9) and creatinine (2.10) were at baseline or slightly improved. Cathed urine culture showed leukocytes, protein, and blood, culture pending. EKG similar to previous EKG which showed moderate intraventricular conduction delay. Chest x-ray showed no acute changes. CT abdomen/pelvis significant for circumferential bladder thickening Denies abdominal pain, chest pain, difficulty breathing, bowel or bladder c hanges. Past Medical history: Diabetes mellitus 2 with neuropathy Hypertension Chronic kidney disease stage 4 Anemia Alcohol abuse Spinal cord injury with central cord syndrome Balance problems with frequent falls Muscle weakness Chronic pain, neck, back GI bleed secondary to duodenal ulcer Venous stasis with ulceration Gout Syphilis Chronic urinary tract infections Past surgical history: C3-T2 posterior spinal instrumentation and fusion C3-C7 laminectomy, 2013 T10-T12 posterior spinal instrumentation and fusion, 2013 Family history: Noncontributory Social history: , formally worked at the [email or web address]. Alcoholic. Patient History Medical History Alcoholism (Chronic) Anemia associated with chronic renal failure (Chronic) Chronic kidney disease, stage 4 (severe) (Chronic) Chronic pain (Chronic) Depression (Chronic) Diabetes type 2, controlled (Chronic) Duodenal ulcer (Acute) GI bleed (Resolved) Gout, arthropathy (Chronic) History of cervical fracture (Resolved) Hyperparathyroidism (Chronic) Hypertension (Chronic) Left leg pain (Chronic) Symptomatic anemia (Chronic) Surgical History H/O cervical spine surgery (Acute) History of colectomy (Resolved) Family & Social History Social History: household members friend(s),other Prior Living Arrangements House Safety & Behavioral: Feels Safe in Current Yes Environment Been Physically Hurt or No Threatened By a Person Suicidal Ideation Description None Suicide Plan Description No Plan Tobacco & Substance use: Smoking Status Former smoker alcohol intake former alcohol intake frequency 0-2 drinks per day Substance Use Type does not use Meds Home Medications and Allergies Home Medications Medication Instructions Recorded Confirmed Type citalopram 20 mg PO DAILY 12/25/17 03/10/19 History glimepiride 1 mg PO DAILY 03/22/18 03/10/19 History doxazosin 4 mg PO BEDTIME 06/07/18 03/10/19 History furosemide 60 mg PO DAILY 09/27/18 03/10/19 History duloxetine 60 mg PO BID 09/28/18 03/10/19 History polyethylene glycol 3350 17 g PO DAILY PRN 09/28/18 03/10/19 History lorazepam 0.5 mg PO TID PRN 11/12/18 03/10/19 History silver sulfadiazine [SSD] 1 applic TOPICAL TID 11/12/18 03/10/19 History lidocaine 1 patch TOP DAILY #30 each 12/19/18 03/10/19 Rx melatonin 10 mg PO BEDTIME PRN 03/10/19 03/10/19 History pantoprazole 20 mg PO DAILY 03/10/19 03/10/19 History Allergies Allergy/AdvReac Type Severity Reaction Status Date / Time latex Allergy Mild IRRITATION Verified 03/10/19 17:25 carisoprodol [From Soma] Allergy Verified 03/10/19 17:25 hydromorphone Allergy Verified 03/10/19 17:25 Sulfa (Sulfonamide AdvReac Mild N&V 1HOUR Verified 03/10/19 17:25 Antibiotics) AFTER RX, THINKS IT IS RELATED Review of Systems Review of Systems ROS Unobtainable: All systems reviewed & are unremarkable except as noted in HPI and below Exam Vital Signs (past 8 hours): - 03/11/19 00:05 03/11/19 04:00 Temperature 99.3 F Pulse Rate 78 77 Respiratory Rate 26 H Blood Pressure 132/53 L 128/63 Pulse Oximetry 91 Oxygen Delivery Method Nasal Cannula Oxygen Flow Rate 2 Narrative Exam Narrative: GENERAL: Alert and oriented, appearing stated age and in no ac [place] distress. HEENT: Head normocephalic/atraumatic. LUNGS: Diminished inspiratory effort but otherwise, clear to ausculation bilaterally, no wheezes, rhonchi or rales. CV: Normal S1 and S2 with regular rate and rhythm, no audible murmurs, rubs or gallops. ABDOMEN: Obese, non-tender, non-distended, no organomegaly. Positive bowel sounds. EXTREMITIES: Bilateral venous stasis with ulceration of left lower extremity ken in dressing. NEURO: No facial droop, no tremor, moves limbs symmetrically. PSYCH: Alert and oriented x 3. Objective Labs Result Diagrams: 03/11/19 11:30 03/11/19 11:30 Labs: Laboratory Results - last 24 hr 03/10/19 03/10/19 03/10/19 17:40 17:40 17:40 WBC 16.4 H RBC 3.00 L Hgb 8.8 L Hct 26.8 L MCV 89.4 MCH 29.5 MCHC 32.9 RDW 16.5 H Plt Count 249 Neut % (Auto) Not Reportable Lymph % (Auto) Not Reportable [place] % (Auto) Not Reportable Eos % (Auto) Not Reportable Baso % (Auto) Not Reportable Neut # (Auto) Lymph # (Auto) Not Reportable [place] # (Auto) Not Reportable Eos # (Auto) Baso # (Auto) Not Reportable Total Counted 100 Seg Neutrophils % 84.0 H Band Neutrophils % 7.0 Lymphocytes % (Manual) 4.0 L Monocytes % (Manual) 3.0 Eosinophils % (Manual) 2.0 Neutrophils # (Manual) 04954 H RBC Morphology Normal morphology Sodium 140 Potassium 4.0 Chloride 102 Carbon Dioxide 28 BUN 34 H Creatinine 2.00 H Estimated GFR 33.5 L BUN/Creatinine Ratio 17.0 Glucose 135 H Lactate Calcium 8.3 L Total Bilirubin 0.7 AST 15 L ALT 9 Alkaline Phosphatase 103 Total Creatine Kinase CK-MB (CK-2) CK-MB (CK-2) Rel Index Troponin I B-Natriuretic Peptide Total Protein 7.2 Albumin 4.1 Globulin 3.1 Albumin/Globulin Ratio 1.3 Lipase 44 Procalcitonin 0.09 Urine RBC Urine WBC Urine Bacteria Ur Culture Indicated? Ethyl Alcohol Influenza A (RT-PCR) Influenza B (RT-PCR) 03/10/19 03/10/19 03/10/19 17:40 17:40 17:40 WBC RBC Hgb Hct MCV MCH MCHC RDW Plt Count Neut % (Auto) Lymph % (Auto) [place] % (Auto) Eos % (Auto) Baso % (Auto) Neut # (Auto) Lymph # (Auto) [place] # (Auto) Eos # (Auto) Baso # (Auto) Total Counted Seg Neutrophils % Band Neutrophils % Lymphocytes % (Manual) Monocytes % (Manual) Eosinophils % (Manual) Neutrophils # (Manual) RBC Morphology Sodium Potassium Chloride Carbon Dioxide BUN Creatinine Estimated GFR BUN/Creatinine Ratio Glucose Lactate Calcium Total Bilirubin AST ALT Alkaline Phosphatase Total Creatine Kinase 52 L CK-MB (CK-2) TNP CK-MB (CK-2) Rel Index TNP Troponin I < 0.012 B-Natriuretic Peptide < 100 Total Protein Albumin Globulin Albumin/Globulin Ratio Lipase Procalcitonin Urine RBC Urine WBC Urine Bacteria Ur Culture Indicated? Ethyl Alcohol Influenza A (RT-PCR) Flu a negative Influenza B (RT-PCR) Flu b negative 03/10/19 03/10/19 03/10/19 17:40 17:52 20:30 WBC RBC Hgb Hct MCV MCH MCHC RDW Plt Count Neut % (Auto) Lymph % (Auto) [place] % (Auto) Eos % (Auto) Baso % (Auto) Neut # (Auto) Lymph # (Auto) [place] # (Auto) Eos # (Auto) Baso # (Auto) Total Counted Seg Neutrophils % Band Neutrophils % Lymphocytes % (Manual) Monocytes % (Manual) Eosinophils % (Manual) Neutrophils # (Manual) RBC Morphology Sodium Potassium Chloride Carbon Dioxide BUN Creatinine Estimated GFR BUN/Creatinine Ratio Glucose Lactate 0.8 Calcium Total Bilirubin AST ALT Alkaline Phosphatase Total Creatine Kinase CK-MB (CK-2) CK-MB (CK-2) Rel Index Troponin I B-Natriuretic Peptide Total Protein Albumin Globulin Albumin/Globulin Ratio Lipase Procalcitonin Urine RBC 1-5/hpf Urine WBC 10-30/hpf H Urine Bacteria Many (>30) H Ur Culture Indicated? Specimen cultured Ethyl Alcohol < 10 Influenza A (RT-PCR) Influenza B (RT-PCR) 03/11/19 03/11/19 04:40 04:40 WBC 16.0 H RBC 2.53 L Hgb 7.7 L Hct 22.9 L MCV 90.5 MCH 30.5 MCHC 33.7 RDW 16.1 H Plt Count 210 Neut % (Auto) 83.8 H Lymph % (Auto) 5.3 L [place] % (Auto) 10.1 Eos % (Auto) 0.6 L Baso % (Auto) 0.2 Neut # (Auto) 47928 H Lymph # (Auto) 800 L [place] # (Auto) 1600 H Eos # (Auto) 100 Baso # (Auto) 0 Total Counted Seg Neutrophils % Band Neutrophils % Lymphocytes % (Manual) Monocytes % (Manual) Eosinophils % (Manual) Neutrophils # (Manual) RBC Morphology Sodium 137 Potassium 3.9 Chloride 102 Carbon Dioxide 26 BUN 32 H Creatinine 2.10 H Estimated GFR 31.7 L BUN/Creatinine Ratio 15.2 Glucose 113 H Lactate Calcium 7.3 L Total Bilirubin 0.6 AST 12 L ALT 8 Alkaline Phosphatase 79 Total Creatine Kinase CK-MB (CK-2) CK-MB (CK-2) Rel Index Troponin I B-Natriuretic Peptide Total Protein 6.2 L Albumin 3.3 L Globulin 2.9 Albumin/Globulin Ratio 1.1 Lipase Procalcitonin Urine RBC Urine WBC Urine Bacteria Ur Culture Indicated? Ethyl Alcohol Influenza A (RT-PCR) Influenza B (RT-PCR) Assessment & Plan Assessment & Plan narrative: Assessment 1. Fever of unknown source. Patient has history of chronic urinary tract infections with indwelling catheter, catheterized urine did show leukocytes, cultures pending. CXR negative. Blood cultures negative to date, pending. Plan: Will cover with levofloxacin 750 mg IV q.day while awaiting results. Reassuring that chest x-ray was negative. Will trend CBC. Risk of multidrug resistant pathogens secondary to recent inpatient stay, will watch white count and fever closely, and if not trending down, will broaden coverage. Assessment 2: Profound weakness, acute on chronic. Multifactorial etiology including sequela from alcoholism, recent GI bleed, recent prolonged hospital stay, etc. Plan: PT/OT for strengthening gait training. Assessment 3: Diabetes mellitus 2 with neuropathy Plan: Diabetic diet, continue home glimepiride 1 mg p.o. q.day. Assessment 4: Hypertension Plan: Historically labile during times of anxiety, controlled with salt restricted diet and diuretics. Will continue furosemide 60 mg p.o. q.day and dietary salt restriction. Assessment 5: Chronic kidney disease stage 4 Plan: At baseline, will trend labs. Assessment 6: Anemia with recent GI bleed secondary to duodenal ulcer. Plan: Hemoglobin/hematocrit at baseline. Will continue to trend CBC. Continue Protonix 20 mg p.o. q.day. Assessment 7: Alcohol abuse Plan: Patient has been through recent inpatient alcohol withdrawal, no alcohol in the blood during admission. Assessment 8: Spinal cord injury with central cord syndrome Plan: Chronic, supportive therapy with PT/OT. Assessment 9: Balance problems with frequent falls Plan: PT/OT Assessment 10: Muscle weakness Plan: PT/OT Assessment 11: Chronic pain, neck, back Plan: Continue home lidocaine patches, duloxetine, and gabapentin. Assessment 12: Recent GI bleed secondary to duodenal ulcer, resolved on admission. Plan: Continue Protonix 40 mg p.o. q.day Assessment 13: Venous stasis with ulceration, left leg. Plan: Wound care consult. Assessment 14: Gout, chronic, not in flare. Plan: Watching closely. Assessment 15: Depression/anxiety, chronic Plan: continue home medications including duloxetine, lorezapam, and citaloparam. GI prophylaxis: Oral Protonix. DVT prophylaxis: Secondary to recent GI bleed, holding off on Lovenox. Will us e SCDs cautiously secondary to venous stasis ulcers. Code: Full code for now, PCP will address more fully tomorrow. Quality VTE Deep Vein Thrombosis/Pulmonary Embolism Present on Admission: No
--- NOTE | 2019-03-11 09:00 | PT.IIE ---
Surgical History (Last Reviewed 03/10/19 @ 19:15 by LUZ Steward) H/O cervical spine surgery (Acute) History of colectomy (Resolved) Medical History (Last Reviewed 03/10/19 @ 19:15 by LUZ Steward) Alcoholism (Chronic) Anemia associated with chronic renal failure (Chronic) Chronic kidney disease, stage 4 (severe) (Chronic) Chronic pain (Chronic) Depression (Chronic) Diabetes type 2, controlled (Chronic) Duodenal ulcer (Acute) GI bleed (Resolved) Gout, arthropathy (Chronic) History of cervical fracture (Resolved) Hyperparathyroidism (Chronic) Hypertension (Chronic) Left leg pain (Chronic) Symptomatic anemia (Chronic) Physical Therapy Inpatient Evaluation/Re-Eval M1 PT/OT-IP Prior Functional Status Start: 03/11/19 08:57 Freq: NEEDED Status: Active Protocol: Document 03/11/19 08:57 [facility] (Rec: 03/11/19 12:17 [facility] [id number]) Medical Review Prior Functional Status Medical History Reviewed Yes Diet/Fluid Consistency Regular Communication WNL Mobility and Gait Pt reports after leaving rehab about 1 week ago, he has not been walking much with the walker, he has mostly been using a w/c to get around. Activities of Daily Living and IADL's Pt reports he has been getting a bath aide 2x/week to helpw ith bathing but indep with dressing. Roommates help with cooking and cleaning Social History Household Members friend(s),other Living Arrangements House Number of Floors (Floors) Two Floors Number of Stairs To Enter/Railing? ramp entry, does not have to use basement so stays on 1 level Home Environment Standard Height Toilet,Tub/ Shower Home Equipment Tub Transfer Bench,Grab Bars Near Toilet,Grab Bars In Shower Employment Status Retired Additional Social History Comment Pt reports bed that HOB elevates M2 PT-IP Current Condition Start: 03/11/19 08:57 Freq: NEEDED Status: Active Protocol: Document 03/11/19 08:57 [facility] (Rec: 03/11/19 12:17 [facility] [id number]) Physical Therapy Current Condition Current Condition Evaluation Date 03/11/19 Treatment Diagnosis vomitting, weakness M3 PT-IP Subjective Start: 03/11/19 08:57 Freq: NEEDED Status: Active Protocol: Document 03/11/19 08:57 [facility] (Rec: 03/11/19 12:17 [facility] [email or web address]) Subjective Physical Therapy Visit Type Type Initial Evaluation Visit Start Time 08:22 Visit Stop Time 08:50 Total Visit Minutes 28 Number of INTERNAL CONTROLS MANAGER Visits 0 Physical Therapy Visit Comments Patient Comments pt hoping to go home after dc from hospital M4 PT-IP Mobility and Gait Start: 03/11/19 08:57 Freq: NEEDED Status: Active Protocol: Document 03/11/19 08:57 [facility] (Rec: 03/11/19 12:17 [facility] [id number]) PT-Bed Mobility Assessment Supine to Sit Supine to Sit Moderate Assistance,Head of Bed Elevated,Bedrails Scooting Scooting to Edge of Bed Contact Guard Assistance PT-Transfer Assessment Sit to and From Stand Sit to and from Stand Moderate Assistance,Use of Upper Extremities Equipment Transfer Assistive Device Gait Belt,Front Wheeled Walker Orthotic/Prosthetic Devices or Brace: No Transfers Transfer Destination Chair Transfer Technique Stand Step Pivot Transfer Ability Level of Assist Minimal Assistance Comments Mobility Comments Pt stood 1x then sat to rest then stood again and required CGA while being wiped prior to transfering. Gait Assessment Comments Gait Comments n/a PT-Balance Assessment Sitting Balance and Reactions Static Sitting Balance Ability Good Dynamic Sitting Balance Ability Good Standing Balance and Reactions Static Standing Balance Ability Poor Dynamic Standing Balance Ability Poor Device Used FWW M5 PT-IP Objective Assessments Start: 03/11/19 08:57 Freq: NEEDED Status: Active Protocol: Document 03/11/19 08:57 [facility] (Rec: 03/11/19 12:17 [facility] [id number]) Orientation Orientation/Cognition Level of Alertness Alert Strength Lower Extremity Strength Assessment Bilaterally Impaired M6 PT-IP Treatment Start: 03/11/19 08:57 Freq: NEEDED Status: Active Protocol: Document 03/11/19 08:57 [facility] (Rec: 03/11/19 12:17 [facility] [email or web address]) Physical Therapy Treatment Education Education Provided Safety M7 PT-IP Assessment and Plan Start: 03/11/19 08:57 Freq: NEEDED Status: Active Protocol: Document 03/11/19 08:57 [facility] (Rec: 03/11/19 12:17 [facility] [email or web address]) PT Summary Assessment and Plan Potential Rehabilitation Potential Good Status of Condition at Evaluation Evolving Summary Impairments Pain,Strength,Bed Mobility, Transfers,Gait,Activity Tolerance Assessment Summary Pt presented to ER d/t vomitting with inc weakness. He is overall weak today with dec ability to transfer safely and do bed mobility. He reuqired definate assist with both transfer and bed mobility and did not feel ready to try amb. Pt would benefit from skilled PT in order to address these needs as pt hopes to return home after hospitalization. Goals Bed Mobility Goal Standby Assistance Transfer Goal Standby Assistance Gait Goal Standby Assistance Gait Distance 100ft Days to Meet Goals 4 Frequency of Treatment Frequency Of Treatment Twice a Day Treatment Plan Physical Therapy Treatment Plan Bed Mobility Training,Transfer Training,Gait Training, Therapeutic Exercise,Balance Retraining,Discharge Planning, Neuromuscular Re-ed Other Recommendations and Next Treatment Try amb if tolerated, work on Focus sit to stand and transfers Recommendations To Nursing Amount of Assist Needed 1 Person Assist Discharge Recommendations PT Discharge Recommendations Home with Assistance,Home Health,SNF Rehab Other Discharge Recommendations home vs SNF depending on pt progress
[2019-03-11] MEDS: GLIMEPIRIDE 2 MG TABLET 1 MG PO (11:18)
[2019-03-11] MEDS: CITALOPRAM 20 MG TABLET PO (11:20)
[2019-03-11] MEDS: LIDOCAINE PATCH 1 EACH ADH..PATCH TOP (11:21)
[2019-03-11] MEDS: SILVER SULFADIAZINE 1% CREAM 50 GM 1 APPLIC TOP ×2 (11:22→20:51)
[2019-03-11] MEDS: DULOXETINE 30 MG CAPSULE 60 MG PO ×2 (11:33→20:30)
[2019-03-11] MEDS: FUROSEMIDE 40 MG TABLET 60 MG PO (11:33)
[2019-03-11] MEDS: PANTOPRAZOLE 20 MG TABLET PO (11:34)
[2019-03-11 11:44] LABS: Add Manual Diff / Slide Review NO; Basophils Absolute Auto 0 /uL (0-100); Basophils Percent Auto 0.2 % (0-2); Eosinophils Absolute Auto 100 /uL (0-450); Eosinophils Percent Auto 0.9 % (2-4); Hematocrit 23.4 % (41-53); Hemoglobin 7.9 g/dL (13.5-17.5); Lymphocytes Absolute Auto 800 /uL (1100-4500); Lymphocytes Percent Auto 5.2 % (25-40); Mean Corpuscular HGB Conc 33.5 % (30-36); Mean Corpuscular Hemoglobin 30.1 PG (26-34); Mean Corpuscular Volume 89.7 fL (80-100); Monocytes Absolute Auto 1400 /uL (0-900); Monocytes Percent Auto 9.1 % (3-14); Neutrophils Absolute Auto 13200 /uL (1500-7000); Neutrophils Percent Auto 84.6 % (50-75); Platelet Count 215 X10^3/uL (150-400); Red Blood Cell Count 2.61 X10^6/uL (4.5-5.9); White Blood Cell Count 15.7 X10^3/uL (4.5-11.0)
[2019-03-11 11:53] LABS: Alanine Aminotransferase 8 IU/L (<50); Albumin 3.5 g/dL (3.5-5.0); Albumin Globulin Ratio 1.2 (1.0-2.8); Alkaline Phosphatase 79 U/L (38-126); Aspartate Aminotransferase 15 IU/L (17-59); BUN Creatinine Ratio 16.2 (6-22); Bilirubin Total 0.5 mg/dL (0.2-1.3); Blood Urea Nitrogen 34 mg/dL (9-20); Calcium 7.4 mg/dL (8.4-10.2); Carbon Dioxide 27 mmol/L (22-32); Chloride 102 mmol/L (98-107); Estimated Glomerular Filt Rate 31.7 mL/min (>60); Globulin 2.9 g/dL (1.7-4.1); Glucose 121 mg/dL (80-110); HEMOLYSIS < 15 (0-50); Potassium 4.1 mmol/L (3.4-5.1); Sodium 137 mmol/L (137-145); Total Protein 6.4 g/dL (6.3-8.2)
--- NOTE | 2019-03-11 13:08 | PC.NURSE ---
pt able to work with pt and transfer to chair - he reports being wheel chair bound at home, recently d/c'd to home from [facility] approx a week ago after lenghy stay at [facility] for gi-bleed, room air, using urinal to void and denies pain other than left shoulder in which we placed a lidocaine patch- transferred to floor care and report given to caty Silva
--- NOTE | 2019-03-11 13:46 | PT.IPTN ---
Physical Therapy Treatment Note M2 PT-IP Current Condition Start: 03/11/19 08:57 Freq: NEEDED Status: Active Protocol: Document 03/11/19 08:57 [facility] (Rec: 03/11/19 12:17 [facility] [id number]) Physical Therapy Current Condition Current Condition Evaluation Date 03/11/19 Treatment Diagnosis vomitting, weakness M3 PT-IP Subjective Start: 03/11/19 08:57 Freq: NEEDED Status: Active Protocol: Document 03/11/19 13:46 [facility] (Rec: 03/11/19 14:13 [facility] [id number]) Subjective Physical Therapy Visit Type Type Treatment Note Visit Start Time 13:46 Visit Stop Time 14:03 Total Visit Minutes 17 Notes family present during tx. Number of RESEARCH AND EVALUATION ANALYST Visits 1 Physical Therapy Visit Comments Patient Comments I don't want to get up because it's hard to breath. With encouragment pt was willing to participate in bed ther ex. M4 PT-IP Mobility and Gait Start: 03/11/19 08:57 Freq: NEEDED Status: Active Protocol: Document 03/11/19 13:46 [facility] (Rec: 03/11/19 14:13 [facility] [id number]) PT-Bed Mobility Assessment Scooting Scooting Up and Down in Bed Standby Assistance PT-Transfer Assessment Comments Mobility Comments HOB was lowered so that pt could move towards HOB as feet were touching foot board of bed. Had pt count out loud to prevent him from holding his breath during exercises. Left pt in bed with all needs within reach and bed alarm on. present. Gait Assessment Comments Gait Comments n/a M5 PT-IP Objective Assessments Start: 03/11/19 08:57 Freq: NEEDED Status: Active Protocol: Document 03/11/19 08:57 [facility] (Rec: 03/11/19 12:17 [facility] [id number]) Orientation Orientation/Cognition Level of Alertness Alert Strength Lower Extremity Strength Assessment Bilaterally Impaired M6 PT-IP Treatment Start: 03/11/19 08:57 Freq: NEEDED Status: Active Protocol: Document 03/11/19 13:46 [facility] (Rec: 03/11/19 14:13 [facility] [id number]) Physical Therapy Treatment Exercises Exercises Ankle Pumps,Gluteal Sets,Quad Sets,Heel Slides M7 PT-IP Assessment and Plan Start: 03/11/19 08:57 Freq: NEEDED Status: Active Protocol: Document 03/11/19 13:46 [facility] (Rec: 03/11/19 14:13 [facility] [id number]) PT Summary Assessment and Plan Summary Assessment Summary Pt refused getting OOB or performing sit<>stand. Pt performed theraputic exercises in bed. Pt O2 on RA ranged from 92-94 during activity with HR ranging from 84-91 bpm . Pt would like to d/c home but may need SNF rehab depending on pt's progress with bed mobility and transfers and gait. Goals Bed Mobility Goal Standby Assistance Transfer Goal Standby Assistance Gait Goal Standby Assistance Gait Distance 100ft Days to Meet Goals 4 Frequency of Treatment Frequency Of Treatment Twice a Day Treatment Plan Physical Therapy Treatment Plan Bed Mobility Training,Transfer Training,Gait Training, Therapeutic Exercise,Balance Retraining,Discharge Planning, Neuromuscular Re-ed Other Recommendations and Next Treatment Try amb if tolerated, work on Focus sit to stand and transfers Recommendations To Nursing Amount of Assist Needed 1 Person Assist Discharge Recommendations PT Discharge Recommendations Home with Assistance,Home Health,SNF Rehab Other Discharge Recommendations home vs SNF depending on pt progress
[2019-03-11] MEDS: SODIUM CHLORIDE 0.9% 1,000 ML 150 ML IV ×2 (14:17→22:27)
--- NOTE | 2019-03-11 15:04 | CM.DANOTE ---
Found patient sitting up in bed and talking animatedly to family. He is a patient of Dr. Jefferson with a diagnosis of fever and UTI. Pt. looked pale but very jovial. Alert and oriented. Patient's discharge plan is to return home because he cannot afford any out of pocked SNF fees although he'd love to return to [facility] for a couple more weeks. Family is concerned about home because he was home less than 3 days before having to return to the hospital (patient admitted he started feeling poorly at the SNF). Although pt. wants to go home and reports his home is modified to fit his needs all are worried about his level of independence. Sister wondered if he'd be appropriate for Homar. Patient shows interest in being in an adult family home - for social support as well as some physical assistance. Pt. volunteered that since he had stopped drinking (as of 2018) living independently is easier and more of a possibility, but he it is lonely.
--- NOTE | 2019-03-11 15:07 | OT.IP.EVAL ---
Past Medical History (Last Reviewed 03/10/19 @ 19:15 by ULZ Steward) Alcoholism (Chronic) Anemia associated with chronic renal failure (Chronic) Chronic kidney disease, stage 4 (severe) (Chronic) Chronic pain (Chronic) Depression (Chronic) Diabetes type 2, controlled (Chronic) Duodenal ulcer (Acute) GI bleed (Resolved) Gout, arthropathy (Chronic) History of cervical fracture (Resolved) Hyperparathyroidism (Chronic) Hypertension (Chronic) Left leg pain (Chronic) Symptomatic anemia (Chronic) Surgical History (Last Reviewed 03/10/19 @ 19:15 by LUZ Steward) H/O cervical spine surgery (Acute) History of colectomy (Resolved) Occupational Therapy Inpatient Evaluation/Re-Eval M1 PT/OT-IP Prior Functional Status Start: 03/11/19 08:57 Freq: NEEDED Status: Active Protocol: Document 03/11/19 15:07 [facility] (Rec: 03/11/19 15:35 [facility] [id number]) Medical Review Prior Functional Status Medical History Reviewed Yes Diet/Fluid Consistency Regular Communication WNL Mobility and Gait Pt reports after leaving rehab about 5 days ago, he has not been walking much with the walker, he has mostly been using his manual w/c to get around the house. Bathroom doorway is not w/c accessible so pt uses counter and grab bars to get to sink, toilet, tub. Activities of Daily Living and IADL's Pt reports he has a bath aide 2x/week to help with bathing ( primarily hair washing) but is indep with dressing. Roommates help with cooking, cleaning, shopping, laundry. Pt states he still drives. Prior Functional Level (Other details) Pt rents his house and shares it with a couple that has a 6 month old baby. works, stays home with baby. Social History Household Members friend(s),other Living Arrangements House Number of Floors (Floors) Two Floors Number of Stairs To Enter/Railing? none-ramp; pt does not access lower level of home Home Environment Standard Height Toilet,Tub/ Shower,Ramp Home Equipment Four Wheel Walker,Manual Wheelchair,Tub Transfer Bench, Grab Bars Near Toilet,Grab Bars In Shower Employment Status Retired Additional Social History Comment pt has power bed at home M2 OT-IP Current Condition Start: 03/11/19 12:58 Freq: Status: Active Protocol: Document 03/11/19 15:07 [facility] (Rec: 03/11/19 15:35 [facility] [id number]) Occupational Therapy Current Condition Current Condition Evaluation Date 03/11/19 Post Operative Precautions Other Precautions fall risk M3 OT- IP Subjective and Pain Start: 03/11/19 12:58 Freq: Status: Active Protocol: Document 03/11/19 15:07 [facility] (Rec: 03/11/19 15:35 [facility] [id number]) OT- Subjective Occupational Therapy Visit Type Type Initial Evaluation Visit Start Time 14:39 Visit Stop Time 15:07 Total Visit Minutes 28 Notes Pt's sister here for part of assessment Occupational Therapy Visit Comments Patient/Caregiver Goals to return home, be able to transfer to w/c independently, be indep with all self care except shower OT Pain Assessment Pain When Pain Assessed After Treatment Pain Present Pain Present Pain Reported Location Neck and legs Intensity 8 Scale Used Numeric (1 - 10) Description Chronic Management Techniques Distraction M4 OT- IP ADL's Start: 03/11/19 12:58 Freq: Status: Active Protocol: Document 03/11/19 15:07 [facility] (Rec: 03/11/19 15:35 [facility] [id number]) OT [id number] General Evaluation Self-Feeding Ability Independent OT ADL-Grooming General Evaluation Grooming Ability Standby Assistance Areas Needing Assistance Face Washing Comments OT Grooming Comments pt states he has difficulty combing hair due to shoulder issues OT ADL-Oral Care Comments Oral Care Comments to be assessed OT ADL-Dressing General Eval Lower Body Dressing Ability Maximum Assistance Areas Needing Assistance Socks Assistive Devices Dressing Assistive Devices Computer Aided Design Technician Comments OT Dressing Comments further assessment to follow OT ADL-Toileting General Evaluation Toileting Ability Total Assistance Areas Needing Assistance Empty Catheter or Colostomy Comments OT Toileting Comments condom catheter at present OT ADL-Bathing Comments OT Bathing Comments to be assessed as mobility improves M5 OT- IP IADL's Start: 03/11/19 12:58 Freq: Status: Active Protocol: Document 03/11/19 15:07 [facility] (Rec: 03/11/19 15:35 [facility] [id number]) OT-Instrumental Activities of Daily Living Deficits IADL Deficits Identified Deficits Home Safety Awareness Awareness of Need for Assistance at Home Good Awareness Ability to Problem Solve Emergency Able to Problem Solve Situations Medication Management Medication Management No Deficits Identified Money Management Money Management No Deficits Identified Meal Preparation Meal Preparation Caregiver Provides Assist Meal Preparation Comments roommates assist Manager Molecular Manager Molecular Caregiver Provides Assist Manager Molecular Comments roommates assist Driving Driving Comments pt states he still drives, his roommates do not own a car M6 OT- IP Functional Cognition Start: 03/11/19 12:58 Freq: Status: Active Protocol: Document 03/11/19 15:07 [facility] (Rec: 03/11/19 15:35 [facility] [id number]) Cognitive Factors Limiting Selfcare Function Cognitive Ability Level of Alertness Alert Patient Orientation Name,Age,Birthday,Month,Date, Year,Day of Week,Place, Situation Attention Span Ability Capable of Focused Attention, Capable of Sustained Attention Ability to Follow Commands Able to Follow One Step Commands Cognitive Comments Cognitive Assessment Comments Pt needs min cues for exact date. Good historian. OT- Vision and Hearing OT- Hearing Assessment OT- Hearing Assessment WFL OT- Vision Assessment Visual Acuity WFL,Glasses For Reading M7 OT- IP Mobility and Balance Start: 03/11/19 12:58 Freq: Status: Active Protocol: Document 03/11/19 15:07 [facility] (Rec: 03/11/19 15:35 [facility] [id number]) OT-Transfer Assessment Comments Mobility Comments see P.T. notes OT- Gait Assessment Comments Gait Ability Comments pt has not yet ambulated with P.T. OT- Balance Assessment Comments Other Balance Tests/Deviations/Treatment see P.T. 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 R shldr active scaption limited to about 70 degrees. L shoulder AAROM for scaption limited to about 45 degrees by pain. Distal AROM WFL in BUE' s OT Strength Upper Extremity Strength Assessment Bilaterally Impaired Shoulder R 3-/5, L 2+/5 Elbow B 5/5 flex/ext Wrist B 5/5 ext Hand B software development leader 5/5 Hand Fine Chemicals Operator Strength Hand Dominance Left OT- Coordination Assessment Comments Coordination Comments BUE WFL but gross coordination limited by proximal shoulder pain OT-Muscle Tone Assessment Muscle Tone WNL Yes OT Sensation Assessment Comments Summary Comments BUE WNL per pt Edema Edema Absent M9 OT- IP Assessment and Plan Start: 03/11/19 12:58 Freq: Status: Active Protocol: Document 03/11/19 15:07 [facility] (Rec: 03/11/19 15:35 [facility] [id number]) OT Summary Assessment and Plan Potential Rehabilitation Potential Good Analytic Complexity at Evaluation Low Summary OT Impairments Pain,Balance,Functional Mobility,Dressing,Toileting, Bathing,Toilet Transfers, Shower Transfers Assessment Summary Low complexity OT assessment completed on this 68 yr old male admitted with vomiting and weakness. Pt home only 5 days from [facility] where he spent the last 3 weeks in rehab after GI bleed, NSTEMI 02/[address] [facility] Dx is UTI. Pt lives with roommates in house with ramp to enter main level. Pt uses manual w/c for mobility except bathroom not w /c accessible so he uses counter and grab bars to access toilet, tub/shower, sink. Pt states he is indep with eating, grooming, dressing, toileting. He has bath aid 2x week to assist with shower, primarily hair washing due to chronic B shoulder pain, ROM limitations . Roommates assist with all IADLS. Pt currently has performance deficits in all functional mobility/transfers, dressing and toileting. Pt will benefit from OT services here to address the goals below. Pt would like home discharge with HH vs return to SNF pending progress here. Further recommendations to follow as therapists continue to work with pt here. Goals Grooming Goal Independent Dressing Goal Independent Toileting Goal Independent Bathing Goal Minimal Assistance Toilet Transfer Goal Independent,Standard Toilet, Grab Bars Shower Transfer Goal Contact Guard Assistance OT-Other Goals Grooming to be done seated. Days to Meet Goals 7 Frequency of Treatment Frequency Of Treatment Once a Day Treatment Plan OT Treatment Plan ADL Training,Functional Mobility,Patient/Family Education,Discharge Planning Discharge Recommendations OT Discharge Recommendations Home with Assistance Other Discharge Recommendations vs SNF pending progress here
--- NOTE | 2019-03-11 15:16 | PC.NURSE ---
Patient was brought up to room 203 from ICU in bed, oriented to room and call light. Denies pain, nausea or vomiting. Urinal within reach. Patient has left leg wrapped in an intact dressing. IV fluids as ordered. Patient states he has not had any diarrhea, just a large soft BM yesterday and he reports he did not see any blood. Call light within reach. Bed alarm active for safety.
[2019-03-11] MEDS: ACETAMINOPHEN 325 MG TABLET 650 MG PO (17:47)
[2019-03-11] MEDS: CYCLOBENZAPRINE 5 MG TABLET PO (17:47)
--- NOTE | 2019-03-11 18:04 | PC.NURSE ---
Pt c/o 10/13 pain in neck and shoulders and was upset that he had no opiates ordered for him. He used the f word to describe Dr. Quintana; he thinks I'm addicted! I am not addicted! I have constant pain! He did take his Tylenol and Flexeril.
[2019-03-11] MEDS: MELATONIN 3 MG TABLET 9 MG PO (20:30)
--- NOTE | 2019-03-11 21:03 | CM.DPNOTE ---
DCP continued:EMR Reviewed: CM/RN sent expedited [facility] application into [facility] 03/11/2019 for help with either calibration engineer or help patient in the future set up assisted living or adult family home. Patient is ok D/C home with family or HH if PT stated it is necessary but will need more assistance as he get older and is interested in going to either an assisted living or adult family home in the near future. Annelise Torres RN
--- NOTE | 2019-03-11 21:16 | PC.NURSE ---
Pt states that [facility] is scheduled to visit Monday03/12/19 to do dressing change.
[2019-03-12] VITALS (13 sets, daily range): BP systolic 131–149; BP diastolic 59–67; PULSE 69–86; RESP 16–26; TEMP 36.5–38.3; O2SAT 92–98
--- NOTE | 2019-03-12 02:09 | PC.NURSE ---
Addendum entered by Sommer Lundberg R.N. 03/12/19 06:47: Slept most of night. Upon waking him this morning patient states he is having chronic neck pain and requested/medicated with Flexeril; refused Tylenol. Original Note: Patient is alert and oriented. Breath sounds diminished but CTA with RA sat of 96%. HRR; telemetry reading was SR. Denies nausea. BT present and abdomen is soft. Voiding per urinal; denies dysuria, frequency or urgency. Able to turn self in bed. Current activity is bedrest until advanced by PT. Dressing to left LE is CDI; patient states is chronic leg ulcer related to neuropathy which he has present in bilateral LE to mid calf. Venous stasis discoloration in LE. Refusing to wear SCD's. Fall risk score is high and bed alarm is activated.
[2019-03-12] MEDS: SODIUM CHLORIDE 0.9% 1,000 ML 150 ML IV ×2 (05:16→16:48)
[2019-03-12] MEDS: CYCLOBENZAPRINE 5 MG TABLET PO ×2 (06:26→18:57)
[2019-03-12] MEDS: DULOXETINE 30 MG CAPSULE 60 MG PO ×2 (10:43→20:45)
[2019-03-12] MEDS: GLIMEPIRIDE 2 MG TABLET 1 MG PO (10:44)
[2019-03-12] MEDS: PANTOPRAZOLE 20 MG TABLET PO (10:44)
[2019-03-12] MEDS: CITALOPRAM 20 MG TABLET PO (10:44)
[2019-03-12] MEDS: FUROSEMIDE 40 MG TABLET 60 MG PO (10:44)
[2019-03-12] MEDS: LIDOCAINE PATCH 1 EACH ADH..PATCH TOP (10:45)
--- NOTE | 2019-03-12 11:18 | PT.IPTN ---
Physical Therapy Treatment Note M2 PT-IP Current Condition Start: 03/11/19 08:57 Freq: NEEDED Status: Active Protocol: Document 03/11/19 08:57 [facility] (Rec: 03/11/19 12:17 [facility] [id number]) Physical Therapy Current Condition Current Condition Evaluation Date 03/11/19 Treatment Diagnosis vomitting, weakness M3 PT-IP Subjective Start: 03/11/19 08:57 Freq: NEEDED Status: Active Protocol: Document 03/12/19 11:18 CLB (Rec: 03/12/19 14:31 CLB [id number]) Subjective Physical Therapy Visit Type Type Treatment Note Visit Start Time 11:18 Visit Stop Time 11:59 Total Visit Minutes 41 Notes Co-treat with OT Number of HAM STRIPPER Visits 2 Physical Therapy Visit Comments Patient Comments Pt agreeable to do therapy. M4 PT-IP Mobility and Gait Start: 03/11/19 08:57 Freq: NEEDED Status: Active Protocol: Document 03/12/19 11:18 CLB (Rec: 03/12/19 14:31 CLB [id number]) PT-Bed Mobility Assessment Supine to Sit Supine to Sit Standby Assistance,Head of Bed Elevated,Bedrails Scooting Scooting to Edge of Bed Standby Assistance PT-Transfer Assessment Sit to and From Stand Sit to and from Stand Contact Guard Assistance, Minimal Assistance,Use of Upper Extremities Equipment Transfer Assistive Device Gait Belt Orthotic/Prosthetic Devices or Brace: No Transfers Transfer Destination Chair Transfer Technique Stand Step Pivot Transfer Ability Level of Assist Contact Guard Assistance Comments Mobility Comments Pt has hospital bed at home with rails and typically gets up with bed rail and HOB elevated. Pt then transfers to from bed so bed chair was used in similar position to [facility] home setting. Pt required CGA for transfer to chair with cues for hand position to slow descent. Pt's O2 during activity was 93%. Pt performed sit<>stand several times during tx due to chair follow with ambulation and improved with slow descent but as pt fatigued required Min A x1 sit-stand from chair. Pt ambulated with shoes on. Left pt in chair with call light and all needs within reach. Gait Assessment Gait Gait Assistance Required: Contact Guard Assist,Minimum Assistance,1 Person Assist Distance (Feet) 120 Able to Maintain Weight Bearing Status No During Gait Assistive Devices Assistive Device Gait Belt,Front Wheeled Walker Orthotic/Prosthetic Devices or Brace: No Gait Deviations General Gait Pattern Antalgic,Decreased Stride Length,Decreased Feet Clearance,Flexed Trunk,Wide Based Gait Factors Limiting Gait Function Factors Limiting Gait Function Decreased Activity Tolerance, Decreased Sensation,Decreased Strength,Limited Range of Motion,Pain,Poor Balance,Poor Safety Awareness Comments Gait Comments Pt ambulated in room ~10ft with chair follow requiring Min A, pt's shoes were donned and pt was able to ambulate in moya with chair follow another 100+feet CGA with increased steadiness requiring CGA. Chair follow was provided through for entire gait distance. M5 PT-IP Objective Assessments Start: 03/11/19 08:57 Freq: NEEDED Status: Active Protocol: Document 03/11/19 08:57 [facility] (Rec: 03/11/19 12:17 [facility] [id number]) Orientation Orientation/Cognition Level of Alertness Alert Strength Lower Extremity Strength Assessment Bilaterally Impaired M6 PT-IP Treatment Start: 03/11/19 08:57 Freq: NEEDED Status: Active Protocol: Document 03/12/19 11:18 CLB (Rec: 03/12/19 14:31 CLB [id number]) Physical Therapy Treatment Exercises Exercises Ankle Pumps,Quad Sets M7 PT-IP Assessment and Plan Start: 03/11/19 08:57 Freq: NEEDED Status: Active Protocol: Document 03/12/19 11:18 CLB (Rec: 03/12/19 14:31 CLB [id number]) PT Summary Assessment and Plan Potential Rehabilitation Potential Good Status of Condition at Evaluation Evolving Summary Impairments Pain,Strength,Bed Mobility, Transfers,Gait,Activity Tolerance Assessment Summary Pt improved with overall mobility and was able to transfer from bed to chair CGA then ambulate ~120ft with chair follow with Min A but improved gait quality after donning shoes requiring CGA. Spoke to PT as pt lacks motivation and requests to be seen once a day, educated pt on change. Goals Bed Mobility Goal Standby Assistance Transfer Goal Standby Assistance Gait Goal Standby Assistance Gait Distance 100ft Days to Meet Goals 4 Frequency of Treatment Frequency Of Treatment Once a Day Treatment Plan Physical Therapy Treatment Plan Bed Mobility Training,Transfer Training,Gait Training, Therapeutic Exercise,Balance Retraining,Discharge Planning, Neuromuscular Re-ed Other Recommendations and Next Treatment ambulation, sit-stand and Focus transfers Recommendations To Nursing Amount of Assist Needed 1 Person Assist Discharge Recommendations PT Discharge Recommendations Home with Assistance,Home Health,SNF Rehab Other Discharge Recommendations home vs SNF depending on pt progress
--- NOTE | 2019-03-12 11:32 | OT.IP.TRT ---
Occupational Therapy Treatment Note M2 OT-IP Current Condition Start: 03/11/19 12:58 Freq: Status: Active Protocol: Document 03/11/19 15:07 PJM (Rec: 03/11/19 15:35 PJ [id number]) Occupational Therapy Current Condition Current Condition Evaluation Date 03/11/19 Post Operative Precautions Other Precautions fall risk M3 OT- IP Subjective and Pain Start: 03/11/19 12:58 Freq: Status: Active Protocol: Document 03/12/19 11:32 PJM (Rec: 03/12/19 15:02 PJM [id number]) OT- Subjective Occupational Therapy Visit Type Type Treatment Note Visit Start Time 11:07 Visit Stop Time 11:32 Total Visit Minutes 25 Notes Partial co tx with P.T. for mobility with chair follow and 2PA for safety for first time ambulating here. Occupational Therapy Visit Comments Patient Comments I would like to to have more help at home or get into an adult family home or assisted living. Patient/Caregiver Goals to find a different living situation with more help and socialization OT Pain Assessment Pain When Pain Assessed After Treatment Pain Present Pain Present Pain Reported Location generalized chronic pain Intensity 7 Description Aching,Chronic M4 OT- IP ADL's Start: 03/11/19 12:58 Freq: Status: Active Protocol: Document 03/12/19 11:32 PJM (Rec: 03/12/19 15:02 PJM [id number]) OT ADL-Dressing General Eval Lower Body Dressing Ability Minimal Assistance Areas Needing Assistance Underpants/Brief Comments OT Dressing Comments Pt needed min assist to pull brief up in back with close CGA for standing balance with FWW. Pt needed min assist to get shoes on seated in recliner. OT ADL-Toileting General Evaluation Toileting Ability Independent Devices Toileting Assistive Devices Urinal Comments OT Toileting Comments in bed M5 OT- IP IADL's Start: 03/11/19 12:58 Freq: Status: Active Protocol: Document 03/11/19 15:07 PJM (Rec: 03/11/19 15:35 PJ [id number]) OT-Instrumental Activities of Daily Living Deficits IADL Deficits Identified Deficits Home Safety Awareness Awareness of Need for Assistance at Home Good Awareness Ability to Problem Solve Emergency Able to Problem Solve Situations Medication Management Medication Management No Deficits Identified Money Management Money Management No Deficits Identified Meal Preparation Meal Preparation Caregiver Provides Assist Meal Preparation Comments roommates assist Auto Body Straightener Auto Body Straightener Caregiver Provides Assist Auto Body Straightener Comments roommates assist Driving Driving Comments pt states he still drives, his roommates do not own a car M6 OT- IP Functional Cognition Start: 03/11/19 12:58 Freq: Status: Active Protocol: Document 03/11/19 15:07 PJM (Rec: 03/11/19 15:35 PJ [id number]) Cognitive Factors Limiting Selfcare Function Cognitive Ability Level of Alertness Alert Patient Orientation Name,Age,Birthday,Month,Date, Year,Day of Week,Place, Situation Attention Span Ability Capable of Focused Attention, Capable of Sustained Attention Ability to Follow Commands Able to Follow One Step Commands Cognitive Comments Cognitive Assessment Comments Pt needs min cues for exact date. Good historian. OT- Vision and Hearing OT- Hearing Assessment OT- Hearing Assessment WFL OT- Vision Assessment Visual Acuity WFL,Glasses For Reading M7 OT- IP Mobility and Balance Start: 03/11/19 12:58 Freq: Status: Active Protocol: Document 03/12/19 11:32 PJM (Rec: 03/12/19 15:02 [facility] [id number]) OT- Bed Mobility Assessment Rolling Type of Rolling Roll to Left Level of Assistance Standby Assistance,Head of Bed Elevated,Bedrails Scooting Scooting to Edge of Bed Independent OT-Transfer Assessment Sit to and From Stand Sit to and from Stand Contact Guard Assistance,1 Person Assistance Transfers Transfer Ability Contact Guard Assistance,1 Person Assistance Technique Transfer Destination Chair Transfer Technique Squat Pivot Devices Transfer Assistive Devices Gait Belt Comments Mobility Comments Pt normally has w/c facing side of bed and does 180 degree turn to get from w/c to bed without using walker. Pt has hospital bed with rails at home. OT- Gait Assessment Gait Gait Assistance Required: Contact Guard Assist Distance (Feet) 120 Assistive Devices Assistive Device Gait Belt,Front Wheeled Walker Comments Gait Ability Comments chair follow for safety OT- Balance Assessment Sitting Balance and Reactions Static Sitting Balance Ability Good Dynamic Sitting Balance Ability Good Standing Balance and Reactions Static Standing Balance Ability Good Dynamic Standing Balance Ability Fair M9 OT- IP Assessment and Plan Start: 03/11/19 12:58 Freq: Status: Active Protocol: Document 03/12/19 11:32 PJM (Rec: 03/12/19 15:02 [facility] [id number]) OT Summary Assessment and Plan Summary OT Impairments Pain,Strength,Balance, Functional Mobility,Dressing, Toileting,Bathing,Toilet Transfers,Shower Transfers Progress Towards Goals Progressing Toward Goals Assessment Summary Pt progressing with improved functional mobility and participation in dressing tasks today as noted above. Pt needs to be independent with dressing and bed to w/c transfers to return home as his roommates do not assist with any ADLs, only IADLS. Discussed with bilingual patient support caseworker who is assisting pt with applying for [employer] caregivers with termite inspector goal of transition to [facility] or assisted living situation. Recommend HH OT/PT/bath aide and assist with wound care when pt discharges home. Goals Grooming Goal Independent Dressing Goal Independent Toileting Goal Independent Bathing Goal Minimal Assistance Toilet Transfer Goal Independent,Standard Toilet, Grab Bars Shower Transfer Goal Contact Guard Assistance OT-Other Goals Grooming to be done seated. Days to Meet Goals 5 Frequency of Treatment Frequency Of Treatment Once a Day Treatment Plan OT Treatment Plan ADL Training,Functional Mobility,Patient/Family Education,Discharge Planning Discharge Recommendations OT Discharge Recommendations Home with Assistance Other Discharge Recommendations Home Health OT, PT, bath aide, wound care
--- NOTE | 2019-03-12 13:01 | P.PN_ITS ---
Subjective Subjective Date Patient Seen: 03/12/19 Time Patient Seen: 12:29 Interval history: Patient is chronically ill recent PR GI bleed this is who just has been discharged from nursing care within the last few days. Again has drop in his hematocrit down to 23 signs of infection in his urine which has been a problem for him prior. I think with his. I think with his multiple neurologic damage to other metabolic and medical problems including potential for bleeding which just occurred this patient is not suitable for rapid discharge. I many keep him on IV antibiotics and continue to watch for evidence of GI bleeding serial hematocrits close observation for blood pressure because he has had a recent PR. He has just to complex with too many issues that could cause him to present atypically and look less severely ill that he is at this point. Will co ntinue with the pantoprazole also some protection against bleeding Wound care will continue have dressings changed here because he is certainly at significant risk for secondary infection of his nonhealing chronic leg wounds which again are aggravated by his spinal cord damage neuropathy. Patient's recent hospitalization was found have a positive test for treponemal infection. Will do subsequent labs after Ortiz phi that with TPPA and RPR Patient lives in a trailer sometimes with a roommate. These S situations have not been good for him and that that's an environment susceptibility to drinking. Until last few days has been it [place] [facility]. Long history of opiate dependency alcohol dependency and subsequent depression. Patient not suicidal at this point Has sisters who care about him and feel as though he is overlooked often because of his extensive drinking history. Exam Vital Signs (past 8 hours): - 03/12/19 06:26 03/12/19 08:02 Temperature 98.4 F 97.8 F Pulse Rate 69 69 Respiratory Rate 20 16 Blood Pressure 141/67 H 131/59 L Pulse Oximetry 94 96 Oxygen Delivery Method Room Air Oxygen Flow Rate 0 Narrative Exam Narrative: Patient moderately alert recognizes me diffusely weak. Palate consistent with his very low hematocrit. Nonhealing leg wounds with disordered dressings need to be replaced and wound care initiated PERRLA EOMs intact Poor dentition Lungs with decreased breath sounds throughout some rhonchi Cardiovascular exam shows faint heart exam with 1/6 systolic murmur recent PR hospitalization and I think patient at risk if he becomes more infectious for reactivating or extending his recent PR Abdomen obese no mass no rebound or guarding Dependent edema with redness nonhealing wound lesions decreased sensation Neuro shows patient with decreased strength symmetrically throughout and decreased sensation particularly worse in the legs secondary to spinal cord injury Psych patent patient is stable at this point but has long history of depression and substance abuse and opiate abuse. Objective Labs Result Diagrams: 03/11/19 11:30 03/11/19 11:30 Assessment & Plan Assessment & Plan narrative: Assessment 1. Urinary tract infection with culture and sensitivity pending. Patient has been in extensive inpatient settings along indwelling catheters. Patient also has multiple medical conditions including neurologic dysfunction which I think could make it very difficult for him to present with the typical symptoms of early sepsis or progressive medical problems. Recent PR recent GI bleed with low current low hematocrit of 23 neurologic issues with severe deficiency in his legs also potentially contributing to nonhealing leg wounds so very complex patient with very severe consequences including major GI bleed a recent PR within the last month. Assessment 2. Anemia patient's hematocrit down to 23. He has had bleeding without symptoms within the last month requiring extensive transfusions. Will monitor look labs for morning. Will also get stool guaiacs Assessment 3. Diabetes patient poorly compliant but blood sugars in good control at this point will continue current regiment Assessment 4. Mi patient had a stress mediated PR non ST T wave with his last admission secondary to significant alcohol withdrawal per. Shows no sign of withdrawal at this time has not had any alcohol since the initiation of that last admission. Assessment 5. Alcohol abuse chronically. It I think based on his history not likely to have withdrawal at this time Assessment 6. Opiate dependence. Chronic pain issues difficult to manage. Assessment 7. Chronic renal failure is definitely at risk with lowering hematocrit. Probably also a contributor to his low hematocrit with the chronic renal failure or lower throat blood in function. Will monitor closely. Time Spent With Patient Time with patient: Greater than 35 minutes Quality VTE Deep Vein Thrombosis/Pulmonary Embolism Present on Admission: No
[2019-03-12] MEDS: ACETAMINOPHEN 325 MG TABLET 650 MG PO ×2 (15:55→18:57)
[2019-03-12] MEDS: SILVER SULFADIAZINE 1% CREAM 50 GM 1 APPLIC TOP (16:03)
[2019-03-12] MEDS: levoFLOXacin 750 MG/150 ML PIGGYBACK 100 MG IV (20:46)
[2019-03-12] MEDS: DOXAZOSIN 4 MG TABLET PO (20:49)
--- NOTE | 2019-03-12 22:05 | PC.NURSE ---
Pt refused having lidocaine patches removed, wants to wait until morning. New IV started in R FA.
[2019-03-12] MEDS: CEFTRIAXONE 1 GM/50 ML FROZ.PIGGY IV (22:48)
[2019-03-12] MEDS: MELATONIN 3 MG TABLET 9 MG PO (22:50)
[2019-03-13] VITALS (7 sets, daily range): BP systolic 139–154; BP diastolic 70–97; PULSE 72–82; RESP 18–24; TEMP 36.7–38.1; O2SAT 94–96
[2019-03-13] MEDS: SODIUM CHLORIDE 0.9% 1,000 ML 150 ML IV (02:38)
[2019-03-13] MEDS: ACETAMINOPHEN 325 MG TABLET 650 MG PO ×2 (03:38→14:26)
[2019-03-13 06:19] LABS: Add Manual Diff / Slide Review NO; Basophils Absolute Auto 0 /uL (0-100); Basophils Percent Auto 0.3 % (0-2); Eosinophils Absolute Auto 200 /uL (0-450); Eosinophils Percent Auto 2.4 % (2-4); Hematocrit 22.3 % (41-53); Hemoglobin 7.4 g/dL (13.5-17.5); Lymphocytes Absolute Auto 500 /uL (1100-4500); Lymphocytes Percent Auto 7.7 % (25-40); Mean Corpuscular HGB Conc 33.2 % (30-36); Mean Corpuscular Hemoglobin 29.7 PG (26-34); Mean Corpuscular Volume 89.7 fL (80-100); Monocytes Absolute Auto 700 /uL (0-900); Monocytes Percent Auto 10.4 % (3-14); Neutrophils Absolute Auto 5600 /uL (1500-7000); Neutrophils Percent Auto 79.2 % (50-75); Platelet Count 204 X10^3/uL (150-400); Red Blood Cell Count 2.49 X10^6/uL (4.5-5.9); Red Cell Distribution Width 15.9 % (11.6-14.8); White Blood Cell Count 7.1 X10^3/uL (4.5-11.0)
[2019-03-13 06:23] LABS: Alanine Aminotransferase 7 IU/L (<50); Albumin 3.2 g/dL (3.5-5.0); Albumin Globulin Ratio 1.1 (1.0-2.8); Alkaline Phosphatase 73 U/L (38-126); Aspartate Aminotransferase 14 IU/L (17-59); Bilirubin Total 0.4 mg/dL (0.2-1.3); Blood Urea Nitrogen 32 mg/dL (9-20); Calcium 7.5 mg/dL (8.4-10.2); Carbon Dioxide 25 mmol/L (22-32); Chloride 101 mmol/L (98-107); Estimated Glomerular Filt Rate 33.5 mL/min (>60); Glucose 104 mg/dL (80-110); HEMOLYSIS < 15 (0-50); Potassium 3.9 mmol/L (3.4-5.1); Sodium 134 mmol/L (137-145); Total Protein 6.2 g/dL (6.3-8.2)
[2019-03-13 06:40] LABS: B Type Natriuretic Peptide 127 (<100)
--- NOTE | 2019-03-13 09:00 | P.PN_ITS ---
Subjective Subjective Date Patient Seen: 03/13/19 Time Patient Seen: 08:18 Interval history: 68-year-old gentleman with recent DE and major GI bleed of up to 9 units transfused current urinary tract infection with weakness started on antibiotics which urine culture shows he is resistant to. Multiple episodes of incontinence to the night. Denies chest pain. This morning hematocrit down to 22. Patient has been getting IV fluids still will discontinue that. Because of his neuropathy issues and presentation I think he has risk for atypical presentation from my he was not complaining of chest pain with his last MRI with his last DE. Just initiated effective she antibiotics last night with IV Rocephin. Continue drop in hematocrit. Confused and inappropriate during the course of the evening. I'm patient's hospitalization several weeks ago had a positive VDRL and is getting confirmatory lab test done here a TP P a and a RPR which could affect his cognitive function patient's home situation involves him living with a roommate in a trailer. There's been historically issues with roommates bring an alcohol and I think with his current difficulty with stairs overall weakness infected leg severe anemia recent DE recent GI bleed I'd like to stop his IV fluids and continue him on his IV antibiotics 1 more day anticipating discharge if he improves with the above-mentioned issues in a day or 2. Exam Vital Signs (past 8 hours): - 03/13/19 03:25 03/13/19 03:38 03/13/19 04:43 Temperature 100.5 F H 100.5 F H 99.5 F Pulse Rate 82 Respiratory Rate 24 Blood Pressure 152/72 H Pulse Oximetry 94 Oxygen Delivery Method Room Air Oxygen Flow Rate 0 Narrative Exam Narrative: Disheveled poor dentition alert this morning PERRLA EOMs intact Diffusely obese Lungs clear Heart with regular rate and rhythm 1/6 systolic murmur Urinary incontinence with them in bed today next neurologic weakness and secondary to his severe neck fracture injury and residual loss Extremities nonhealing leg wound seen by wound care today there can and implement some care. Psych shows patient to be a little bit disoriented and unclear Heme shows hematocrit down to 2 to Objective Labs Result Diagrams: 03/13/19 06:00 03/13/19 06:00 Labs: Laboratory Results - last 24 hr 03/13/19 03/13/19 06:00 06:00 WBC 7.1 D RBC 2.49 L Hgb 7.4 L Hct 22.3 L MCV 89.7 MCH 29.7 MCHC 33.2 RDW 15.9 H Plt Count 204 Neut % (Auto) 79.2 H Lymph % (Auto) 7.7 L [place] % (Auto) 10.4 Eos % (Auto) 2.4 Baso % (Auto) 0.3 Neut # (Auto) 5600 Lymph # (Auto) 500 L [place] # (Auto) 700 Eos # (Auto) 200 Baso # (Auto) 0 Sodium 134 L Potassium 3.9 Chloride 101 Carbon Dioxide 25 BUN 32 H Creatinine 2.00 H Estimated GFR 33.5 L BUN/Creatinine Ratio 16.0 Glucose 104 Calcium 7.5 L Total Bilirubin 0.4 AST 14 L ALT 7 Alkaline Phosphatase 73 B-Natriuretic Peptide 127 H Total Protein 6.2 L Albumin 3.2 L Globulin 3.0 Albumin/Globulin Ratio 1.1 Assessment & Plan Assessment & Plan narrative: Assessment 1. Weakness and disorientation probably secondary to urinary tract infection which was resistant to his initial medications and just started on something that is culture sensitive to last night by IV. Think this aggravates his underlying mental status and medical status which is quite complex with recent massive GI bleed as well as recent DE in the process of that id will continue patient on his IV antibiotic today for his UTI he had lots urinary incontinence during the night probably secondary to that. Assessment 2 recent DE about 3 he weeks ago during withdrawal here at [facility] and GI bleed developed non ST T wave DE not having chest pain at this point his BNP was in good control on arrival with appropriate chest x-ray will continue to monitor but will discontinue IV fluids today except those for meds. Assessment 3. Recent GI bleed 9 units no clear focus was found although there was a small ulcer. Concerned that his hematocrit is down from 26 on admission to 22 no guaiacs at this point but will watch 1 more day Assessment 4. Diabetes with neuropathy I think this go factors in with his neck injury for his peripheral neuropathy issues which affected his risk for falls and as well as healing his leg lesion Assessment 5. Nonhealing leg ulcer consult looked at by wound care this morning will continue with their directed wound care dressings. Assessment 6. Chronic renal failure creatinine currently at 2 following hydration. That also affects his blood count will monitor and relook that again in the morning. Assessment 7. Alcohol abuse and dependency chronic and due has not had any for med least prior to his last admission according to his history in the shows no signs of withdrawal at this point will continue to monitor. Assessment 8. Chronic pain this aggravated by neck back legs neuropathy problem is been that patient has used alcohol excessively in this setting and 1 tried with pain medications particularly opiates and unable to manage those and is using them in half there are anticipated timeframe. I've tried he orthopedic consult neurology consult gabapentin and as well as many other non opiate pain meds. Time Spent With Patient Time with patient: Greater than 35 minutes Quality VTE Deep Vein Thrombosis/Pulmonary Embolism Present on Admission: No
[2019-03-13] MEDS: PANTOPRAZOLE 20 MG TABLET PO (10:00)
[2019-03-13] MEDS: FUROSEMIDE 40 MG TABLET 60 MG PO (10:00)
[2019-03-13] MEDS: CITALOPRAM 20 MG TABLET PO (10:00)
[2019-03-13] MEDS: GLIMEPIRIDE 2 MG TABLET 1 MG PO (10:00)
[2019-03-13] MEDS: DULOXETINE 30 MG CAPSULE 60 MG PO ×2 (10:00→21:40)
[2019-03-13] MEDS: LIDOCAINE PATCH 1 EACH ADH..PATCH 2 EACH TOP (10:01)
--- NOTE | 2019-03-13 10:32 | PT-IP ANOTE ---
Pt refused am treatment, stated hasn't gotten any sleep and wants to just rest but could work together in the afternoon.
--- NOTE | 2019-03-13 10:44 | PC.NURSE ---
Assess- Patient incontinent of urine x3 last night and then again at 0730. Bed, gown, and linen soaked. Patient had a brief on and tries to use the urinal but misses. He was on NS at 150cc/hr and has a urinary tract infection. He is Alert but forgetful at times. Refused to get up at breakfast, stating that he feels to weak. We will try to get Cristóbal up for lunch. His blood sugar this morning was 92. Lidocaine patches applied to each shoulder, he states that he refuses to have them taken off at night and basically wears them for 24 hours. Staff has been asking patient to have them off but he consistently wants to keep the patches in place. He has some bruising and rashes to his body and l.lower dressing of tegaderm to his l.outer ken. Wound Doctor in and took off coban dressings. He is happy with tegaderm that is in place. States that he may have arterial/venous ulcer. Patient took his medications whole with water and is resting comfortably now.
--- NOTE | 2019-03-13 11:55 | OT.IP.TRT ---
Current Diagnoses Fever, unspecified (03/10/19) Occupational Therapy Treatment Note M2 OT-IP Current Condition Start: 03/11/19 12:58 Freq: Status: Active Protocol: Document 03/11/19 15:07 PJM (Rec: 03/11/19 15:35 PJM [id number]) Occupational Therapy Current Condition Current Condition Evaluation Date 03/11/19 Post Operative Precautions Other Precautions fall risk M3 OT- IP Subjective and Pain Start: 03/11/19 12:58 Freq: Status: Active Protocol: Document 03/13/19 11:55 PJM (Rec: 03/13/19 16:19 PJ [email or web address]) OT- Subjective Occupational Therapy Visit Type Type Treatment Note Visit Start Time 11:23 Visit Stop Time 11:55 Total Visit Minutes 32 Notes Pt has decreased H&H today to 7.4/22.3. aware. Okay to proceed with tx per RN. Occupational Therapy Visit Comments Patient Comments I didn't get any sleep last night and I feel so weak today. M4 OT- IP ADL's Start: 03/11/19 12:58 Freq: Status: Active Protocol: Document 03/13/19 11:55 PJM (Rec: 03/13/19 16:19 PJM [email or web address]) OT [id number] General Evaluation Self-Feeding Ability Independent OT ADL-Grooming General Evaluation Grooming Ability Independent Areas Needing Assistance Retrieving/Set-up of Grooming Items,Face Washing Comments OT Grooming Comments in bed OT ADL-Oral Care General Eval Oral Care Ability Independent Areas of Assistance Retrieving/Set-Up of Items Comments Oral Care Comments in chair, CONTROL SYSTEM COMPUTER SCIENTIST to set up for pt after lunch OT ADL-Dressing General Eval Upper Body Dressing Ability Minimal Assistance Lower Body Dressing Ability Maximum Assistance Areas Needing Assistance Shoes Comments OT Dressing Comments Min assist with gown change; pt unable to reach feet from high bed here; has much lower bed at home. OT ADL-Bathing Bathing Type Bathing Type Sponge Bath Comments OT Bathing Comments Poor thoroughness and effort with upper body sponge bath noted. M7 OT- IP Mobility and Balance Start: 03/11/19 12:58 Freq: Status: Active Protocol: Document 03/13/19 11:55 PJM (Rec: 03/13/19 16:19 PJM [email or web address]) OT- Bed Mobility Assessment Supine to Sit Supine to Sit Assist Standby Assistance,Head of Bed Elevated,Bedrails Scooting Scooting to Edge of Bed Standby Assistance OT-Transfer Assessment Sit to and From Stand Sit to and from Stand Contact Guard Assistance,1 Person Assistance Transfers Transfer Ability Contact Guard Assistance Technique Transfer Destination Chair Transfer Technique Stand Step Pivot Devices Transfer Assistive Devices Gait Belt,Front Wheeled Walker Comments Mobility Comments Pt moving very slowly today due to fatigue OT- Balance Assessment Sitting Balance and Reactions Static Sitting Balance Ability Good Dynamic Sitting Balance Ability Good Standing Balance and Reactions Static Standing Balance Ability Fair Comments Other Balance Tests/Deviations/Treatment static standing balance with : FWW M9 OT- IP Assessment and Plan Start: 03/11/19 12:58 Freq: Status: Active Protocol: Document 03/13/19 11:55 PJM (Rec: 03/13/19 16:19 PJM [email or web address]) OT Summary Assessment and Plan Summary OT Impairments Balance,Functional Mobility, Dressing,Toileting,Bathing, Toilet Transfers,Shower Transfers Progress Towards Goals Slow Progress due to Medical Issues,Slow Progress due to Activity Tolerance Assessment Summary Pt needing encouragement to participate in self care tasks and mobility out of bed today due to fatigue and weakness. No dizziness or orthostasis noted. Functional abilities for bed mobility and stand pivot transfer to chair about the same as yesterday, except pt moving more slowly. Suspect pt will perform better in familiar environment with lower bed and he may be close to his baseline level of function in self care. Recommend OT services at d/c to further evaluate pt's self care, IADL function in home setting; especially bathroom transfers and showering. Frequency of Treatment Frequency Of Treatment Once a Day Treatment Plan OT Treatment Plan ADL Training,Functional Mobility,Patient/Family Education,Discharge Planning Discharge Recommendations OT Discharge Recommendations Home with Assistance,Home Health
--- NOTE | 2019-03-13 13:50 | PT.IPTN ---
Current Diagnoses Fever, unspecified (03/10/19) Physical Therapy Treatment Note M2 PT-IP Current Condition Start: 03/11/19 08:57 Freq: NEEDED Status: Active Protocol: Document 03/11/19 08:57 [facility] (Rec: 03/11/19 12:17 [facility] [id number]) Physical Therapy Current Condition Current Condition Evaluation Date 03/11/19 Treatment Diagnosis vomitting, weakness M3 PT-IP Subjective Start: 03/11/19 08:57 Freq: NEEDED Status: Active Protocol: Document 03/13/19 13:22 SP (Rec: 03/13/19 16:20 SP [id number]) Subjective Physical Therapy Visit Type Type Treatment Note Visit Start Time 13:22 Visit Stop Time 13:50 Total Visit Minutes 32 Notes Aide assist follow with w/c. Number of MATERIAL EXPEDITER Visits 3 Physical Therapy Visit Comments Patient Comments Pt agreeable to PT treatment this afternoon. Patient Goals Go for a walk. M4 PT-IP Mobility and Gait Start: 03/11/19 08:57 Freq: NEEDED Status: Active Protocol: Document 03/13/19 13:22 SP (Rec: 03/13/19 16:20 SP [id number]) PT-Bed Mobility Assessment Sit to Supine Sit to Supine Standby Assistance,Bedrails PT-Transfer Assessment Sit to and From Stand Sit to and from Stand Contact Guard Assistance, Moderate Assistance,1 Person Assistance,Use of Upper Extremities Equipment Transfer Assistive Device Gait Belt,Front Wheeled Walker Orthotic/Prosthetic Devices or Brace: No Transfers Transfer Destination Bed,Wheelchair Transfer Technique Stand Step Pivot Transfer Ability Level of Assist Contact Guard Assistance,1 Person Assistance,Use of Upper Extremities Comments Mobility Comments Pt was up sitting in chair when arrived. MATERIAL EXPEDITER asked PT aide to assist follow w/c secondary to decreased activity tolerance. Pt was able to complete sit to stand from chair requiring Mod A on secondary attempt to complete to standing with cuing for hip hinge forward. Pt commented This chair is really low and my shoulders hurt and haven't done this in a while. Pt heavy WB UE at first through fWW was ableto walk toward hallway approx 10 ft before required need to sit . Pt completed 3 more sit to stands from w/c CGA. Pt was ableto complete sitting to supiine with use of bed rail and cuing for centering himself for safety away from EOB. Pt had all needs in reach and nurse assistant distribution manager in room when left. Gait Assessment Gait Gait Assistance Required: Contact Guard Assist Distance (Feet) 110 Able to Maintain Weight Bearing Status No During Gait Assistive Devices Assistive Device Gait Belt,Front Wheeled Walker Orthotic/Prosthetic Devices or Brace: No Gait Deviations General Gait Pattern Antalgic,Decreased Stride Length,Decreased Feet Clearance,Flexed Trunk,Wide Based Gait Factors Limiting Gait Function Factors Limiting Gait Function Decreased Activity Tolerance, Decreased Sensation,Decreased Strength,Limited Range of Motion,Poor Balance,Poor Safety Awareness Comments Gait Comments Pt ambulated chair from room into hallway 10 ft, 40 ft, 60 ft with required seated rests secondary to decreased strengthen and endurance. Pt stated has to be able to walk up ramp at home and is usually challenging and can't do it right now. CGA required secondary to demosntration of little unsteady durign WB through LE and Moderate BUE WB into FWW. PT-Balance Assessment Sitting Balance and Reactions Static Sitting Balance Ability Good Dynamic Sitting Balance Ability Good Standing Balance and Reactions Static Standing Balance Ability Good Dynamic Standing Balance Ability Fair Device Used FWW M5 PT-IP Objective Assessments Start: 03/11/19 08:57 Freq: NEEDED Status: Active Protocol: Document 03/11/19 08:57 [facility] (Rec: 03/11/19 12:17 [facility] [id number]) Orientation Orientation/Cognition Level of Alertness Alert Strength Lower Extremity Strength Assessment Bilaterally Impaired M6 PT-IP Treatment Start: 03/11/19 08:57 Freq: NEEDED Status: Active Protocol: Document 03/13/19 13:22 SP (Rec: 03/13/19 16:20 SP [id number]) Physical Therapy Treatment Exercises Exercises Ankle Pumps,Seated Knee Flexion/Extension Education Education Provided Safety M7 PT-IP Assessment and Plan Start: 03/11/19 08:57 Freq: NEEDED Status: Active Protocol: Document 03/13/19 13:22 SP (Rec: 03/13/19 16:20 SP [id number]) PT Summary Assessment and Plan Potential Rehabilitation Potential Good Status of Condition at Evaluation Evolving Summary Impairments Pain,Strength,Bed Mobility, Transfers,Gait,Activity Tolerance Assessment Summary Pt demonstrated decreased activity tolerance required increased rest breaks seated between distances during gait using FWW CGA and w/c follow of assist of 1. Sit to stand initially from low chair Mod A , sitting to supine SBA with cuing center in bed. Pt lacks motivation and encouraged to progress into endurance gait, repeated sit to stands for strengthening to be ableto walk up ramp at home usign FWW . Pt ususally uses 4WW at home but did not trial secondary to Mod /heavy WB BUe on FWW and FWW provided good slow pacing. At this time, recommend SNF for discharge for skilled further strengthening, balance toward indepenedence functional mobility and PLOF using 4WW and ramp mgt. Goals Bed Mobility Goal Standby Assistance Transfer Goal Standby Assistance Gait Goal Standby Assistance Gait Distance 100ft Days to Meet Goals 4 Frequency of Treatment Frequency Of Treatment Once a Day Treatment Plan Physical Therapy Treatment Plan Bed Mobility Training,Transfer Training,Gait Training, Therapeutic Exercise,Balance Retraining,Discharge Planning, Neuromuscular Re-ed Other Recommendations and Next Treatment ambulation, sit-stand and Focus transfers Recommendations To Nursing Amount of Assist Needed 1 Person Assist Discharge Recommendations PT Discharge Recommendations Home with Assistance,Home Health,SNF Rehab Other Discharge Recommendations home vs SNF depending on pt progress
--- NOTE | 2019-03-13 15:02 | CM.DPC ---
DCP Cont: Noticed that application was expedited for [facility] evaluation. Called [facility] to find out if application was received, and if a [facility] case maker was assigned. Did get in with [facility], and found out that application was processed, and [facility] case maker will be Nila Ellsworth. Her phone number is: [phone]. Left her a message on her voice mail to inquire when she can see patient for evaluation. Also indicated that patient should be discharged tomorrow, and am working on getting patient home health. Called Alda at [facility], for patient had been recently discharged from facility. Asked her if he had anymore benefits. She stated that she would review case to see if he has any benefits left, and will call back. Also, is not clear if patient will need residential antibiotics. Will fax over clinical information to [facility] to review, for they do take Medicaid. Called Nixon at [facility] and gave him update. P: DCP will follow closely, and attempt to speak to Dr. Quintana tomorrow to see if patient can be discharged tomorrow, and plan for antibiotics. Kinsey Dotson RN/Patient Accounts Manager
[2019-03-13] MEDS: HYDROCODONE/ACET 5/325 TABLET 1 TAB PO (21:21)
[2019-03-13] MEDS: MELATONIN 3 MG TABLET 9 MG PO (21:21)
[2019-03-13] MEDS: CYCLOBENZAPRINE 5 MG TABLET PO (21:22)
[2019-03-13] MEDS: CEFTRIAXONE 1 GM/50 ML FROZ.PIGGY IV (21:22)
[2019-03-13] MEDS: DOXAZOSIN 4 MG TABLET PO (21:23)
[2019-03-14 01:12] VITALS: BP 152/75; PULSE 81; RESP 20; TEMP 37.6; O2SAT 92
[2019-03-14 03:30] VITALS: BP 146/72; PULSE 76; RESP 20; TEMP 37.6; O2SAT 92
[2019-03-14] MEDS: ACETAMINOPHEN 325 MG TABLET 650 MG PO (05:58)
[2019-03-14] MEDS: CYCLOBENZAPRINE 5 MG TABLET PO ×2 (05:58→21:25)
[2019-03-14 06:45] LABS: Add Manual Diff / Slide Review NO; Basophils Absolute Auto 0 /uL (0-100); Basophils Percent Auto 0.5 % (0-2); Eosinophils Absolute Auto 200 /uL (0-450); Eosinophils Percent Auto 3.3 % (2-4); Hematocrit 24.1 % (41-53); Hemoglobin 8.1 g/dL (13.5-17.5); Lymphocytes Absolute Auto 700 /uL (1100-4500); Lymphocytes Percent Auto 10.1 % (25-40); Mean Corpuscular HGB Conc 33.4 % (30-36); Mean Corpuscular Hemoglobin 29.8 PG (26-34); Mean Corpuscular Volume 89.2 fL (80-100); Monocytes Absolute Auto 1000 /uL (0-900); Monocytes Percent Auto 15.7 % (3-14); Neutrophils Absolute Auto 4600 /uL (1500-7000); Neutrophils Percent Auto 70.4 % (50-75); Platelet Count 237 X10^3/uL (150-400); White Blood Cell Count 6.5 X10^3/uL (4.5-11.0)
[2019-03-14 06:50] LABS: B Type Natriuretic Peptide 137 (<100)
[2019-03-14 06:55] LABS: Alanine Aminotransferase 9 IU/L (<50); Albumin 3.5 g/dL (3.5-5.0); Albumin Globulin Ratio 1.1 (1.0-2.8); Alkaline Phosphatase 81 U/L (38-126); Aspartate Aminotransferase 16 IU/L (17-59); BUN Creatinine Ratio 16.3 (6-22); Bilirubin Total 0.4 mg/dL (0.2-1.3); Blood Urea Nitrogen 31 mg/dL (9-20); Calcium 8.2 mg/dL (8.4-10.2); Carbon Dioxide 25 mmol/L (22-32); Chloride 99 mmol/L (98-107); Estimated Glomerular Filt Rate 35.5 mL/min (>60); Globulin 3.1 g/dL (1.7-4.1); Glucose 109 mg/dL (80-110); HEMOLYSIS < 15 (0-50); Potassium 3.8 mmol/L (3.4-5.1); Sodium 134 mmol/L (137-145); Total Protein 6.6 g/dL (6.3-8.2)
[2019-03-14 07:50] VITALS: BP 154/73; PULSE 72; RESP 18; TEMP 36.9; O2SAT 92
[2019-03-14] MEDS: GLIMEPIRIDE 2 MG TABLET 1 MG PO (09:01)
[2019-03-14] MEDS: SILVER SULFADIAZINE 1% CREAM 50 GM 1 APPLIC TOP (09:01)
[2019-03-14] MEDS: FUROSEMIDE 40 MG TABLET 60 MG PO (09:04)
[2019-03-14] MEDS: PANTOPRAZOLE 20 MG TABLET PO (09:05)
[2019-03-14] MEDS: CITALOPRAM 20 MG TABLET PO (09:05)
[2019-03-14] MEDS: SODIUM CHLORIDE 0.9% FLUSH 10 ML IV ×2 (09:05→21:25)
[2019-03-14] MEDS: DULOXETINE 30 MG CAPSULE 60 MG PO ×2 (09:05→21:24)
[2019-03-14] MEDS: LIDOCAINE PATCH 1 EACH ADH..PATCH 2 EACH TOP (09:05)
[2019-03-14 11:32] VITALS: BP 144/67; PULSE 67; RESP 18; TEMP 36.9; O2SAT 95
--- NOTE | 2019-03-14 12:41 | PM.PN.1 ---
Subjective Subjective Date Patient Seen: 03/14/19 Time Patient Seen: 12:05 Interval history: She is 68-year-old male admitted with severe weakness secondary to urinary tract infection sepsis like syndrome. Initially treated with antibiotics which urine culture eventually grew out bacteria to be resistant. That was switched to Rocephin he is getting that 24 hours of give him 1 more dose tonight IV and switch to oral anti antibiotics tomorrow at. 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 Long history of alcohol abuse and opiate dependency with chronic pain syndrome. Patient also found to have a positive VDRL when he was an undergoing delirium with his last hospitalization and recent treponemal studies during this admission still pending. He is able to ambulate today still feels quite weak but is a little more clear again 1 more day of IV antibiotics I think because of the initial resistance and the complexity of his whole situation hopefully discharge within the next day or 2 on oral antibiotics with home health appropriate follow-up following results of his treponemal studies as outpatient perhaps with IV infusion over long period of time. Home situation is difficult lives in a trailer has a roommate at times. Frequent people there are with alcohol exposure we which is terrible for this patient. Does have sisters to support him but he does not live with any of them Very high dependent see on others for his day-to-day functions given his nerve damage and overall poor health 14 point review of systems performed and negative except as outlined above Exam Vital Signs (past 8 hours): - 03/14/19 07:50 Temperature 98.5 F Pulse Rate 72 Respiratory Rate 18 Blood Pressure 154/73 H Pulse Oximetry 92 Oxygen Delivery Method Room Air Oxygen Flow Rate 0 Narrative Exam Narrative: Patient is sitting up speaking more clearly and a little more alert early today. PERRLA EOMs intact Extremely poor dentition Speech clear Lungs clear to auscultation percussion Heart shows regular rate rhythm without murmur Abdomen obese but no palpable mass rebound guarding. Bowel sounds are present Extremities showed nonhealing leg wound left leg with appropriate dressing today will need to continue with wound ongoing wound care perhaps some that can be done with outpatient home health. Neuro shows fairly severe deficits symmetrically with weakness and sensory both. 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 Skin normal without abnormalities except for the nonhealing left leg ulcer Objective Labs Result Diagrams: 03/14/19 06:20 03/14/19 06:20 Labs: Laboratory Results - last 24 hr 03/14/19 03/14/19 06:20 06:20 WBC 6.5 RBC 2.70 L Hgb 8.1 L Hct 24.1 L MCV 89.2 MCH 29.8 MCHC 33.4 RDW 16.0 H Plt Count 237 Neut % (Auto) 70.4 Lymph % (Auto) 10.1 L Grand % (Auto) 15.7 H Eos % (Auto) 3.3 Baso % (Auto) 0.5 Neut # (Auto) 4600 Lymph # (Auto) 700 L Grand # (Auto) 1000 H Eos # (Auto) 200 Baso # (Auto) 0 Sodium 134 L Potassium 3.8 Chloride 99 Carbon Dioxide 25 BUN 31 H Creatinine 1.90 H Estimated GFR 35.5 L BUN/Creatinine Ratio 16.3 Glucose 109 Calcium 8.2 L Total Bilirubin 0.4 AST 16 L ALT 9 Alkaline Phosphatase 81 B-Natriuretic Peptide 137 H Total Protein 6.6 Albumin 3.5 Globulin 3.1 Albumin/Globulin Ratio 1.1 Assessment & Plan Assessment & Plan narrative: Assessment 1. Severe weakness mom probably multifactorial but triggered prior primarily for this admission will by a urinary tract infection. Patient was just out of care home several days before he began to feel bad and had this recur. Initial treatment with quinolone should which urine culture grew out as resistant to. Switch to Rocephin and patient definitely improved over the last 12:48 p.m.. Anticipate 1 more dose today the IV Rocephin and then switched to oral antibiotics tomorrow and hopefully be able to discharge if he continues to improve. Assessment 2. Sigmoid severe anemia patient's hematocrit has stabilized at 24. No evidence of bleeding at this point. Had dropped initially on admission from 20/6 to 22 some of that was probably delusional. Patient had within the last month had and 9 units GI bleed which was poorly localized at that time. The core stabilizing and probably okay to go home on proton pump inhibitors when the time comes. Assessment 3 recent DC within the last month during patient's last hospitalization had non ST T wave DC during withdrawal which certainly lead to congestive heart failure during his hospitalization. He had a several week hospitalization followed by several weeks and care home and prior to this admission only had been out of [facility] for a few days. At this point denies chest pain and BNP shows no evidence of congestive heart failure initial chest x-ray clear. Vital signs are stable. Assessment 4. Renal failure patient's creatinine is down to 1.9. This is about his baseline have encouraged him to continue with hydration. Will monitor blood pressure control and try to avoid nephrotoxic meds 1 possible. Assessment 5. Occult dependence. Patient has not per his history had any alcohol since prior to his last admission. Stressed importance of avoiding that with the complexity of his overall health status. Refuses call treatment. Assessment 6. Neurologic damage with a diffuse weakness. He has combination of polyneuropathy plus C-spine nerve damage leading to lower extremity weakness and difficulty with function. This happened as a fall from his trailer when he fractured his neck. That fracture and resultant surgery seems stable at this point. Assessment 7. Chronic pain issues. Have tried numbers of tree nuts for this as the patient developed a quick tolerance and dependency on opiates are voiding nose. Currently on duloxetine and tried previous gabapentin. Assessment 8. Diabetes patient on medication for that I think that's a contributing factor to his polyneuropathy as well. Sugars are doing adequate at this point. Will continue with current regiment of medications for diabetes. Assessment 9. Positive screening test for treponemal infection. This was triggered in his hospice last hospitalization because of persistence of delirium. Apparently had a positive VDRL and was recommended to get treponemal validation tests with treponemal bloody antibodies and RPR and those are pending. Quality VTE Deep Vein Thrombosis/Pulmonary Embolism Present on Admission: No
--- NOTE | 2019-03-14 13:01 | CM.DPC ---
Addendum entered by Kinsey Dotson R.N. 03/14/19 13:44: Met with patient and sister. Patient stated, he would rather have [facility], he did not have the best experience with [facility]. Went ahead and called [facility], spoke to Viktoriya and asked her to cancel referral. Faxed [facility] orders, face to face, face sheet, H&P. Spoke to Milton at [facility], who stated, they are familiar with patient, and he would be high priority on their list for him to be seen. Let Milton know that he will need all disciplines except speech. Sister was inquiring about him going back to [facility]. Let her and patient know that this rn case management has not yet heard back from August in admissions at [facility], for she was going to research his Medicare coverage. Did update patient that he has a new [facility] rn case management, as well. At this time, it is looking likepatient should be going home with home [facility], and will be Pam. Original Note: DCP Cont: Spoke to Dr. Quintana regarding discharge. Stated, he would like patient to have another night of IV antibiotics before discharge. He stated, patient is medically compromised, with other co-moribities. At this time, he stated that patient should be able to discharge tomorrow with oral antibiotics. Had him sign face to face for home health. Will ask for RN, NATURAL RESOURCES EXTENSION EDUCATOR, P.T, O.T, bath aide. Have not yet heard back from [facility] rn case management. Called [facility] and asked about turn around time, when they can see patient, with anticipated discharge tomorrow. Stated that they should be able to see him this week end. Faxed over orders for home health, face sheet, face to face, and H&P over to [facility]. When patient is discharged, will fax discharge summary. P: DCP to continue to follow. Already have message out to [facility] rn case management, as indicated in previous note. Will DC with [facility], should be tomorrow. Kinsey Dotson RN/Javascript Engineer
--- NOTE | 2019-03-14 14:00 | OT.IP.TRT ---
Current Diagnoses Fever, unspecified (03/10/19) Occupational Therapy Treatment Note M2 OT-IP Current Condition Start: 03/11/19 12:58 Freq: Status: Active Protocol: Document 03/11/19 15:07 PJM (Rec: 03/11/19 15:35 PJM [id number]) Occupational Therapy Current Condition Current Condition Evaluation Date 03/11/19 Post Operative Precautions Other Precautions fall risk M3 OT- IP Subjective and Pain Start: 03/11/19 12:58 Freq: Status: Active Protocol: Document 03/14/19 14:00 PJM (Rec: 03/14/19 16:03 PJM [id number]) OT- Subjective Occupational Therapy Visit Type Type Administrative Note Visit Start Time 14:00 Notes OT tx attempted, but pt just finished with P.T. and too fatigued. Per chart notes, pt will d/c home tomorrow with services.
--- NOTE | 2019-03-14 15:56 | CM.DPC ---
DCP Cont: Spoke to Delmis Solitario through [facility] Telegraph Equipment Maintainer. Just found out that she is patient's case management coordinator, not Susy any longer. Nicole's phone number is: [phone]. Updated her on patient being discharged tomorrow. She will contact patient for a home assessment. She can also attempt to get him back into rehab if that is needed. She will not be in the office tomorrow. P: DCP to continue to follow. Patient should discharge home with [facility], and Nicole, case management coordinator will follow up with patient. Kinsey Dotson RN/Bullet Slug Casting Machine Operator
[2019-03-14 16:00] VITALS: BP 171/82; PULSE 72; RESP 20; TEMP 36.7; O2SAT 96
--- NOTE | 2019-03-14 16:20 | PT.IPTN ---
Current Diagnoses Fever, unspecified (03/10/19) Physical Therapy Treatment Note M2 PT-IP Current Condition Start: 03/11/19 08:57 Freq: NEEDED Status: Active Protocol: Document 03/11/19 08:57 [facility] (Rec: 03/11/19 12:17 [facility] [email or web address]) Physical Therapy Current Condition Current Condition Evaluation Date 03/11/19 Treatment Diagnosis vomitting, weakness M3 PT-IP Subjective Start: 03/11/19 08:57 Freq: NEEDED Status: Active Protocol: Document 03/14/19 16:07 SP (Rec: 03/14/19 16:47 SP [email or web address]) Subjective Physical Therapy Visit Type Type Treatment Note Visit Start Time 16:07 Visit Stop Time 16:20 Total Visit Minutes 17 Number of HAMMERER HELPER Visits 4 Physical Therapy Visit Comments Patient Comments Pt agreeable to PT treatment in PT, 2nd attempt. M4 PT-IP Mobility and Gait Start: 03/11/19 08:57 Freq: NEEDED Status: Active Protocol: Document 03/14/19 16:07 SP (Rec: 03/14/19 16:47 SP [email or web address]) PT-Bed Mobility Assessment Supine to Sit Supine to Sit Standby Assistance,Head of Bed Elevated,Bedrails Scooting Scooting to Edge of Bed Standby Assistance PT-Transfer Assessment Sit to and From Stand Sit to and from Stand Standby Assistance,Use of Upper Extremities Equipment Transfer Assistive Device Gait Belt,Front Wheeled Walker Orthotic/Prosthetic Devices or Brace: No Transfers Transfer Destination Chair Transfer Ability Level of Assist Standby Assistance,Use of Upper Extremities Comments Mobility Comments Pt was laying in bed when arrived. Pt was ableto complete supine to sitting with HOB elevated 15deg and use of bed rails, unable to complete from flat bed and states his bed rails are further down bed than here therefore easier to sit up with. Pt was able to don shoes himself in sitting and complete sit <> stand from EOB and sit in chair when came back from a walk SBA usign FWW for support. Initially heavy WB BUE on FWW first few steps then decrease as distance walking progressed with improved more upright posture post cuing. Pt was up in chair when left with alarm on and call light and needs within reach when left. Gait Assessment Gait Gait Assistance Required: Contact Guard Assist Distance (Feet) 110 Able to Maintain Weight Bearing Status No During Gait Assistive Devices Assistive Device Gait Belt,Front Wheeled Walker Orthotic/Prosthetic Devices or Brace: No Gait Deviations General Gait Pattern Antalgic,Decreased Stride Length,Decreased Feet Clearance,Flexed Trunk,Wide Based Gait Factors Limiting Gait Function Factors Limiting Gait Function Decreased Activity Tolerance, Decreased Sensation,Decreased Strength,Limited Range of Motion,Poor Balance,Poor Safety Awareness Comments Gait Comments Pt ambulated from L side of bed R into hallway and end of moya then turned and walked back to chair in room same distance 110 ft using FWW with 2 stopped stand rest breaks, w/c followed by therapist provding CGA but not needed. PT-Balance Assessment Sitting Balance and Reactions Static Sitting Balance Ability Good Dynamic Sitting Balance Ability Good Standing Balance and Reactions Static Standing Balance Ability Good Dynamic Standing Balance Ability Fair Device Used FWW M5 PT-IP Objective Assessments Start: 03/11/19 08:57 Freq: NEEDED Status: Active Protocol: Document 03/11/19 08:57 LR (Rec: 03/11/19 12:17 LR [email or web address]) Orientation Orientation/Cognition Level of Alertness Alert Strength Lower Extremity Strength Assessment Bilaterally Impaired M6 PT-IP Treatment Start: 03/11/19 08:57 Freq: NEEDED Status: Active Protocol: Document 03/14/19 16:07 SP (Rec: 03/14/19 16:47 SP [email or web address]) Physical Therapy Treatment Education Education Provided Safety M7 PT-IP Assessment and Plan Start: 03/11/19 08:57 Freq: NEEDED Status: Active Protocol: Document 03/14/19 16:07 SP (Rec: 03/14/19 16:47 SP [email or web address]) PT Summary Assessment and Plan Potential Rehabilitation Potential Good Status of Condition at Evaluation Evolving Summary Impairments Strength,Balance,Bed Mobility, Transfers,Gait,Activity Tolerance Assessment Summary Pt improved overall mobility, required HOB elevated 15 deg and use of bed rails to complete supine to sitting, SBA from lowest level EOB, pivoting back to chair using FWW SBA and gait walked full 110 distance w/c follow but not needed today with no seated rest break CGA Mod BUE WB on FWW decreased from heavy intially once standing. Pt requiries CGA during gait for safety due to flexed trunk with Mod WB on FWW, decreased stride and foot clearance. Recommend home with / assist and home health. Goals Bed Mobility Goal Standby Assistance Transfer Goal Standby Assistance Gait Goal Standby Assistance Gait Distance 100ft Days to Meet Goals 4 Frequency of Treatment Frequency Of Treatment Once a Day Treatment Plan Physical Therapy Treatment Plan Bed Mobility Training,Transfer Training,Gait Training, Therapeutic Exercise,Balance Retraining,Discharge Planning, Neuromuscular Re-ed Other Recommendations and Next Treatment ambulation, sit-stand and Focus transfers Recommendations To Nursing Amount of Assist Needed 1 Person Assist Discharge Recommendations PT Discharge Recommendations Home with 26/09 Assist,Home Health
[2019-03-14 20:00] VITALS: BP 154/76; PULSE 81; RESP 20; TEMP 36.8; O2SAT 98
[2019-03-14] MEDS: CEFTRIAXONE 1 GM/50 ML FROZ.PIGGY IV (21:24)
[2019-03-14] MEDS: HYDROCODONE/ACET 5/325 TABLET 1 TAB PO (21:24)
[2019-03-14] MEDS: DOXAZOSIN 4 MG TABLET PO (21:28)
[2019-03-15 00:55] VITALS: BP 148/69; PULSE 79; RESP 20; TEMP 36.8; O2SAT 93
[2019-03-15 03:55] VITALS: BP 149/77; PULSE 81; RESP 24; TEMP 36.7; O2SAT 93
[2019-03-15 06:40] LABS: Add Manual Diff / Slide Review NO; Basophils Absolute Auto 0 /uL (0-100); Basophils Percent Auto 0.6 % (0-2); Eosinophils Absolute Auto 300 /uL (0-450); Eosinophils Percent Auto 3.6 % (2-4); Hematocrit 23.6 % (41-53); Hemoglobin 7.8 g/dL (13.5-17.5); Lymphocytes Absolute Auto 800 /uL (1100-4500); Lymphocytes Percent Auto 10.8 % (25-40); Mean Corpuscular HGB Conc 32.9 % (30-36); Mean Corpuscular Hemoglobin 29.3 PG (26-34); Monocytes Absolute Auto 1200 /uL (0-900); Monocytes Percent Auto 17.2 % (3-14); Neutrophils Absolute Auto 4900 /uL (1500-7000); Neutrophils Percent Auto 67.8 % (50-75); Platelet Count 248 X10^3/uL (150-400); Red Blood Cell Count 2.65 X10^6/uL (4.5-5.9); Red Cell Distribution Width 16.2 % (11.6-14.8); White Blood Cell Count 7.2 X10^3/uL (4.5-11.0)
[2019-03-15 07:39] VITALS: BP 151/69; PULSE 77; RESP 18; TEMP 36.6; O2SAT 94
--- NOTE | 2019-03-15 08:22 | PM.DS.1 ---
History of Present Illness History of Present Illness Date Patient Seen: 03/15/19 Time Patient Seen: 07:41 Chief complaint: Vomiting Narrative: UTI, weakness, DM. recent(in last month) [place], GI bleed in las t month svere, better this am post 3 days of effective ABX, H+H stable Discharge Providers Provider Date of admission: 03/10/19 20:51 Discharge Date: 03/15/19 Primary care physician: Jim Quintana MD Consults: 03/11/19 08:11 Consult to Occupational Therapy Evaluate & Treat Comment: Physician Instructions: Evaluate and treat Consult to Physical Therapy Evaluate & Treat Comment: Physician Instructions: Evaluate and Treat 03/11/19 08:12 Consult to Discharge Planning Routine Comment: 03/11/19 12:01 Consult to Wound Care Routine Comment: Consulting Provider: [facility] 03/14/19 12:51 Consult to Home Health Routine Comment: Reason For Exam: Home Health, RN, P.T, O.T, 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 septic 3 days after D/C from group home care, IV tx had to be adjusted due to resistancen Drop in H+H suggested recurance of massive, 9 unit GI bleed. MIduring that timebut no signs during this admit Hospital Course: stable now with renal, h+h, UTI, no ETOH withdrawal Status at Discharge Cognitive/behavioral status at discharge: oriented and at baseline, oriented Time Spent with Patient Time spent: Greater than 30 minutes Exam Vital Signs (past 8 hours): - 03/15/19 00:55 03/15/19 03:55 Temperature 98.2 F 98.1 F Pulse Rate 79 81 Respiratory Rate 20 24 Blood Pressure 148/69 H 149/77 H Pulse Oximetry 93 93 Oxygen Delivery Method Room Air Oxygen Flow Rate 0 Const General: cooperative HENMT Head: normal to inspection Face and sinus: normal facial exam Teeth and gingiva: abnormal tooth or associated gingiva and poor dentition Neck Neck: normal visual inspection Other: minimal ROM Chest Chest: normal inspection of the chest Resp Effort & Inspection: normal respiratory effort and able to speak in complete sentences Auscultation: clear to auscultation bilaterally Cardio Palpation: normal PMI Rate: regular rate Rhythm: regular rhythm GI Inspection: normal to inspection and obesity Palpation: no hepatosplenomegaly Percussion: normal to percussion Auscultation: normal bowel sounds Back/Spine/Pelvis Back: back tenderness Cervical Spine: loss of normal cervical lordosis, cervical muscular tenderness and scars present Thoracic/Lumbar Spine: thoracic and lumbar spine normal to inspection and thoraco-lumbar ROM limited Skin Wounds: wounds noted Neuro General: alert, awake and oriented x3 Speech: speech normal Gait: staggering Motor: strength abnormal Sensory Exam: lower extremity DTR's: Rt Triceps: 3+, Lt Triceps: 3+, Rt Biceps: 3+ and Lt Biceps: 3+ Objective Labs Result Diagrams: 03/15/19 06:30 03/14/19 06:20 Labs: Laboratory Results - last 24 hr 03/15/19 06:30 WBC 7.2 RBC 2.65 L Hgb 7.8 L Hct 23.6 L MCV 89.0 MCH 29.3 MCHC 32.9 RDW 16.2 H Plt Count 248 Neut % (Auto) 67.8 Lymph % (Auto) 10.8 L Blair % (Auto) 17.2 H Eos % (Auto) 3.6 Baso % (Auto) 0.6 Neut # (Auto) 4900 Lymph # (Auto) 800 L Blair # (Auto) 1200 H Eos # (Auto) 300 Baso # (Auto) 0 Discharge Plan Discharge Plan Patient Disposition: Home Discharge orders & Medications Prescriptions: Continued doxazosin 4 mg Tablet 4 mg PO BEDTIME RF: 0 furosemide 40 mg Tablet 60 mg PO DAILY RF: 0 duloxetine 60 mg capsule,delayed release(DR/EC) 60 mg PO BID RF: 0 polyethylene glycol 3350 17 gram/dose Powder 17 g PO DAILY PRN (Reason: Constipation) RF: 0 silver sulfadiazine [SSD] 1 % cream 1 applic TOPICAL TID RF: 0 lorazepam 0.5 mg tablet 0.5 mg PO TID PRN (Reason: Anxiety) RF: 0 citalopram 20 MG tablet 20 mg PO DAILY RF: 0 glimepiride 1 mg tablet 1 mg PO DAILY RF: 0 lidocaine 5 % adhesive patch,medicated 1 patch TOP DAILY Qty: 30 RF: 0 pantoprazole 20 mg Tablet,Delayed Release (Dr/Ec) 20 mg PO DAILY RF: 0 melatonin 10 mg Tablet 10 mg PO BEDTIME PRN (Reason: insomnia) RF: 0 Follow up/Referrals: Jim Quintana MD [Primary Care Provider] - Discharge Health Status Health Concerns: ETOH, anemia, chronic renal failure, nonhealing leg ulcer, DM, polyneuropathy Care Plan Goals: home with home health Multidrug resistant organism: No MDRO Diet/Activity/Treatments Diet comment: reg ADA Activity: PT in home Skin/Wound/Dressing Care Other wound treatment: wound care per wound care clinic Discharge Data Primary Care Provider: Jim Quintana Quality VTE Deep Vein Thrombosis/Pulmonary Embolism Present on Admission: No
[2019-03-15] MEDS: GLIMEPIRIDE 2 MG TABLET 1 MG PO (08:49)
[2019-03-15] MEDS: FUROSEMIDE 40 MG TABLET 60 MG PO (08:51)
[2019-03-15] MEDS: CITALOPRAM 20 MG TABLET PO (08:51)
[2019-03-15] MEDS: PANTOPRAZOLE 20 MG TABLET PO (08:52)
[2019-03-15] MEDS: LIDOCAINE PATCH 1 EACH ADH..PATCH 2 EACH TOP (08:52)
[2019-03-15] MEDS: SILVER SULFADIAZINE 1% CREAM 50 GM 1 APPLIC TOP (08:52)
[2019-03-15] MEDS: DULOXETINE 30 MG CAPSULE 60 MG PO (08:57)
--- NOTE | 2019-03-15 10:35 | PT.IPTN ---
Current Diagnoses Fever, unspecified (03/10/19) Physical Therapy Treatment Note M2 PT-IP Current Condition Start: 03/11/19 08:57 Freq: NEEDED Status: Active Protocol: Document 03/11/19 08:57 [facility] (Rec: 03/11/19 12:17 [facility] [email or web address]) Physical Therapy Current Condition Current Condition Evaluation Date 03/11/19 Treatment Diagnosis vomitting, weakness M3 PT-IP Subjective Start: 03/11/19 08:57 Freq: NEEDED Status: Active Protocol: Document 03/15/19 10:07 SP (Rec: 03/15/19 11:55 SP [id number]) Subjective Physical Therapy Visit Type Type Treatment Note Visit Start Time 10:07 Visit Stop Time 10:35 Total Visit Minutes 28 Number of STAGE TECHNICIAN Visits 5 Physical Therapy Visit Comments Patient Comments Pt agreeable to working with PT. M4 PT-IP Mobility and Gait Start: 03/11/19 08:57 Freq: NEEDED Status: Active Protocol: Document 03/15/19 10:07 SP (Rec: 03/15/19 11:55 SP [id number]) PT-Bed Mobility Assessment Supine to Sit Supine to Sit Independent,Head of Bed Elevated,Bedrails Scooting Scooting to Edge of Bed Independent PT-Transfer Assessment Sit to and From Stand Sit to and from Stand Independent,Use of Upper Extremities Equipment Transfer Assistive Device Bed Rail,Gait Belt Orthotic/Prosthetic Devices or Brace: No Transfers Transfer Destination Chair,Toilet,Wheelchair Transfer Ability Level of Assist Independent,Use of Upper Extremities Comments Mobility Comments Pt was laying in bed when arrived. Pt was able to complete supine to sitting and scoot to EOB mod I with HOB elevated 40 deg and use of bed rails as has at home for support. Pt was able to don shoeshimself while seated at EOB good sitting balance and complete sit to stand to using bed rail and transitioning BUE to w/c for support as does at home. Encouraged paitient to pivot turn to R but has always gone to L and works for him with stable BLE. Pt is I in self propelling himself around room and complete step pivot transfer to toilet then to room chair using grab bar and w/c arm rest set up facing toilet as does at home with mod I demonstrated and good LE stability. Good safety skills applying w/c breaks pre transfer. Pt was up in chair with call light and all needs in reach when left. Gait Assessment Comments Gait Comments Did not asses today see previous treatments, doesn't do alot of walking at home, focused tx on self transfers and bed mobilty for assess independence. Stair Climbing Assessment Comments Stair Climbing Comments Has ramp at home. PT-Balance Assessment Sitting Balance and Reactions Static Sitting Balance Ability Good Dynamic Sitting Balance Ability Good Standing Balance and Reactions Static Standing Balance Ability Good Dynamic Standing Balance Ability Fair Device Used step pivot bed> w/c, w/c <> toilet, w/c> chair M5 PT-IP Objective Assessments Start: 03/11/19 08:57 Freq: NEEDED Status: Active Protocol: Document 03/11/19 08:57 [facility] (Rec: 03/11/19 12:17 [facility] [email or web address]) Orientation Orientation/Cognition Level of Alertness Alert Strength Lower Extremity Strength Assessment Bilaterally Impaired M6 PT-IP Treatment Start: 03/11/19 08:57 Freq: NEEDED Status: Active Protocol: Document 03/15/19 10:07 SP (Rec: 03/15/19 11:55 SP [id number]) Physical Therapy Treatment Exercises Exercises Ankle Pumps,Seated Knee Flexion/Extension Other Treatments Other Treatment Performed Seated knee flexion/ankle p umps pre transfer/gait for mobility self. M7 PT-IP Assessment and Plan Start: 03/11/19 08:57 Freq: NEEDED Status: Active Protocol: Document 03/15/19 10:07 SP (Rec: 03/15/19 11:55 SP [id number]) PT Summary Assessment and Plan Potential Rehabilitation Potential Good Status of Condition at Evaluation Evolving Summary Impairments Strength,Balance,Bed Mobility, Transfers,Gait,Activity Tolerance Assessment Summary Tx focused on self transfers using w/c mod I bed> w/c, w/c< > toilet, w/c chair step pivot using BUE on rail/grab bar/ w /c arms to complete sit to stand with stable LE and balance, no LOB or deviations noted. PT recommending home with assistance of roomates and home health to progress strengthening and functional mobility at home. STAGE TECHNICIAN spoke with nursing and child caregiver private home for DC planning. Goals Bed Mobility Goal Standby Assistance Transfer Goal Standby Assistance Gait Goal Standby Assistance Gait Distance 100ft Days to Meet Goals 4 Frequency of Treatment Frequency Of Treatment Once a Day Treatment Plan Physical Therapy Treatment Plan Bed Mobility Training,Transfer Training,Gait Training, Therapeutic Exercise,Balance Retraining,Discharge Planning, Neuromuscular Re-ed Other Recommendations and Next Treatment ambulation, sit-stand and Focus transfers Recommendations To Nursing Amount of Assist Needed Standby Assistance Discharge Recommendations PT Discharge Recommendations Home with Assistance,Home Health
--- NOTE | 2019-03-15 12:23 | CM.DPC ---
DCP Cont: Faxed discharge summary to [facility] at fax # [phone]. Fax confirmation scanned in. Rebeca Blackburn, [employer]
--- NOTE | 2019-03-15 12:33 | CM.DPC ---
DCP: continued: Case received. Pt is d/c'd to home setting. [facility] Met with pt and his sister and provided an updated [facility] brochure. Pt is aware the the [facility] [employer] Manager will be calling him to set up an appt. (see JOAO Freitas's prior notes for specifics). Home today as soon as TAMARA Clemente completes final paperwork. Both pt and his sister Dene say they are eager to get going.
--- NOTE | 2019-03-15 12:46 | PC.NURSE ---
DISCHARGE: SPOKE WITH DR. BEAULIEU OVER THE PHONE. HE WILL CALL IN A SCRIPT FOR ABX TO COVER UTI TO [facility]. PATIENT AND SISTER NOTIFIED OF SAME. THEY BOTH VERBALIZE UNDERSTANDING OF CALLING TO MAKE APPT'S FOR F/U WITH DR. BEAULIEU AND F/U WITH WOUND CARE CLINIC. THEY CONFIRM UNDERSTANDING OF ALL DC HOME INSTRUCTIONS. [facility] TO FOLLOW. PATIENT LEFT BY WC WITH SISTER TO ESCORT HOME, WITH ALL BELONGINGS AND PAPERWORK.
[2019-03-15 20:58] LABS: RPR Screen Nonreactive (Nonreactive)
== END 2019-03-15 13:00 | disposition home health service (06) | DRG 690 ==
LOC: ED 17:36 → AC 21:05 → ICU 03-11 09:07 → AC 03-11 15:11 → ICU 03-12 14:19
PROVIDERS: Admitting Provider Student in an Organized Health Care Education/Training Program; Emergency Provider Nurse Practitioner Family; PCP Family Medicine; Visit Provider Student in an Organized Health Care Education/Training Program
DX: N39.0 Urinary tract infection, site not specified (principal); L97.929 Non-pressure chronic ulcer of unspecified part of left lower leg with unspecified severity; Z16.23 Resistance to quinolones and fluoroquinolones; F11.20 Opioid dependence, uncomplicated; I13.0 Hypertensive heart and chronic kidney disease with heart failure and stage 1 through stage 4 chronic kidney disease, or unspecified chronic kidney disease; I50.22 Chronic systolic (congestive) heart failure; B96.20 Unspecified Escherichia coli [E. coli] as the cause of diseases classified elsewhere; I87.8 Other specified disorders of veins; E11.40 Type 2 diabetes mellitus with diabetic neuropathy, unspecified; N18.3 Chronic kidney disease, stage 3 (moderate); D64.9 Anemia, unspecified; G89.29 Other chronic pain; R29.6 Repeated falls; R53.1 Weakness; M10.9 Gout, unspecified; F32.9 Major depressive disorder, single episode, unspecified; F41.9 Anxiety disorder, unspecified; Z87.891 Personal history of nicotine dependence
CPT/HCPCS: 36415; 51798; 71046; 74177; 80053; 80320; 81003; 81015; 82550; 82962; 83605; 83690; 83880; 84145; 84484; 85025; 86592; 86780; 87040; 87077; 87086; 87186; 87502; 93005; 96361; 96365; 96375; 97110; 97116; 97162; 97165; 97530; 97535; 99284; 99285; J1956; J2405; Q9967

== ENCOUNTER → 2019-03-28 13:11 | Outpatient (CLI) | payer MEDICARE, MEDICAID, SELFPAY ==
[2019-01-25 14:14] VITALS: PULSE 56; RESP 16; O2SAT 100
[2019-03-10 22:12] VITALS: BMI 38.0
== END ==
PROVIDERS: PCP Family Medicine; Visit Provider Family Medicine
DX: I87.2 Venous insufficiency (chronic) (peripheral) (principal); L97.821 Non-pressure chronic ulcer of other part of left lower leg limited to breakdown of skin; E11.622 Type 2 diabetes mellitus with other skin ulcer; E11.51 Type 2 diabetes mellitus with diabetic peripheral angiopathy without gangrene; E11.40 Type 2 diabetes mellitus with diabetic neuropathy, unspecified
CPT/HCPCS: 97597; 99214

== ENCOUNTER → 2019-04-04 12:59 | Outpatient (CLI) | payer MEDICARE, MEDICAID, SELFPAY ==
[2019-01-25 14:14] VITALS: PULSE 56; RESP 16; O2SAT 100
[2019-03-10 22:12] VITALS: BMI 38.0
== END ==
PROVIDERS: PCP Family Medicine; Visit Provider Family Medicine
DX: I87.2 Venous insufficiency (chronic) (peripheral) (principal); L97.821 Non-pressure chronic ulcer of other part of left lower leg limited to breakdown of skin; I73.9 Peripheral vascular disease, unspecified; N18.3 Chronic kidney disease, stage 3 (moderate); L03.116 Cellulitis of left lower limb; R60.0 Localized edema
CPT/HCPCS: 99213; 99214

== ENCOUNTER → 2019-04-11 13:01 | Outpatient (CLI) | payer MEDICARE, MEDICAID, SELFPAY ==
[2019-01-25 14:14] VITALS: PULSE 56; RESP 16; O2SAT 100
== END ==
PROVIDERS: PCP Family Medicine; Referring Provider Family Medicine; Visit Provider Family Medicine
DX: I87.2 Venous insufficiency (chronic) (peripheral) (principal); L03.116 Cellulitis of left lower limb; I73.9 Peripheral vascular disease, unspecified; R60.0 Localized edema
CPT/HCPCS: 29581; 99213

== ENCOUNTER → 2019-04-18 12:59 | Outpatient (CLI) | payer MEDICARE, MEDICAID, SELFPAY ==
[2019-01-25 14:14] VITALS: PULSE 56; RESP 16; O2SAT 100
== END ==
PROVIDERS: PCP Family Medicine; Referring Provider Family Medicine; Visit Provider Family Medicine
DX: I87.2 Venous insufficiency (chronic) (peripheral) (principal); E11.622 Type 2 diabetes mellitus with other skin ulcer; I73.9 Peripheral vascular disease, unspecified; N18.3 Chronic kidney disease, stage 3 (moderate)
CPT/HCPCS: 29581; 97597; 99212

== ENCOUNTER → 2019-04-26 12:44 | Outpatient (CLI) | payer MEDICARE, MEDICAID, SELFPAY ==
[2019-01-25 14:14] VITALS: PULSE 56; RESP 16; O2SAT 100
== END ==
PROVIDERS: PCP Family Medicine; Referring Provider Family Medicine; Visit Provider Family Medicine
DX: E11.621 Type 2 diabetes mellitus with foot ulcer (principal); I87.2 Venous insufficiency (chronic) (peripheral); I73.9 Peripheral vascular disease, unspecified; E11.40 Type 2 diabetes mellitus with diabetic neuropathy, unspecified; R60.0 Localized edema
CPT/HCPCS: 99212; 99214

== ENCOUNTER 2019-06-13 16:16 | Emergency (ER) | payer MEDICARE, MEDICAID, SELFPAY ==
[2019-01-25 14:14] VITALS: PULSE 56; RESP 16; O2SAT 100
[2019-06-13 16:30] VITALS: BP 191/81; PULSE 87; RESP 24; TEMP 36.6; O2SAT 98; BMI 37.3
[2019-06-13 17:15] LABS: Add Manual Diff / Slide Review NO; Basophils Absolute Auto 0 /uL (0-100); Basophils Percent Auto 0.3 % (0-2); Eosinophils Absolute Auto 300 /uL (0-450); Eosinophils Percent Auto 3.6 % (2-4); Hemoglobin 9.2 g/dL (13.5-17.5); Lymphocytes Absolute Auto 1300 /uL (1100-4500); Lymphocytes Percent Auto 14.7 % (25-40); Mean Corpuscular HGB Conc 32.8 % (30-36); Mean Corpuscular Hemoglobin 30.3 PG (26-34); Mean Corpuscular Volume 92.4 fL (80-100); Monocytes Absolute Auto 800 /uL (0-900); Monocytes Percent Auto 9.5 % (3-14); Neutrophils Absolute Auto 6400 /uL (1500-7000); Neutrophils Percent Auto 71.9 % (50-75); Platelet Count 243 X10^3/uL (150-400); Red Blood Cell Count 3.05 X10^6/uL (4.5-5.9); Red Cell Distribution Width 14.8 % (11.6-14.8); White Blood Cell Count 8.9 X10^3/uL (4.5-11.0)
[2019-06-13 17:17] LABS: Hematocrit 28.1 % (41-53)
[2019-06-13] MEDS: CEFTRIAXONE 2 GM/50 ML FROZ.PIGGY IV (17:26)
[2019-06-13 17:27] LABS: Lactate (Lactic Acid) 1.1 mmol/L (0.7-2.1)
[2019-06-13 17:28] LABS: Alanine Aminotransferase 10 IU/L (<50); Albumin Globulin Ratio 1.1 (1.0-2.8); Alkaline Phosphatase 94 U/L (38-126); Aspartate Aminotransferase 20 IU/L (17-59); BUN Creatinine Ratio 20.5 (6-22); Bilirubin Total 0.3 mg/dL (0.2-1.3); Blood Urea Nitrogen 45 mg/dL (9-20); Calcium 8.6 mg/dL (8.4-10.2); Carbon Dioxide 27 mmol/L (22-32); Chloride 104 mmol/L (98-107); Globulin 3.5 g/dL (1.7-4.1); Glucose 160 mg/dL (80-110); HEMOLYSIS < 15 (0-50); Potassium 4.6 mmol/L (3.4-5.1); Sodium 138 mmol/L (137-145); Total Protein 7.5 g/dL (6.3-8.2)
--- NOTE | 2019-06-13 17:29 | ED_ITS ---
HPI - Wound/Laceration General Chief Complaint: Wound/Laceration Stated Complaint: sore on left leg Time Seen by Provider: 06/13/19 16:43 Source: patient Mode of arrival: Wheelchair Limitations: no limitations History of Present Illness HPI narrative: 68-year-old gentleman with a chronic left lower extremity wound, peripheral neuropathy and chronic lower extremity edema presents with increasing redness for 48 hours on the left side. He had previously been seen in wound care for some small wound on the medial aspect of the left ankle. Home health worker came out 2 days ago and help to take a shower and apparently did re-dress the wound. Over the ensuing time frame there was increasing redness he does not report significant pain due to his fairly dense peripheral neuropathy. He denies fevers, chills, tachypnea, abdominal pain, chest pain, vomiting, diarrhea. Related Data Home Medications Medication Instructions Recorded Confirmed citalopram 20 mg PO DAILY 12/25/17 03/10/19 glimepiride 1 mg PO DAILY 03/22/18 03/10/19 doxazosin 4 mg PO BEDTIME 06/07/18 03/10/19 furosemide 60 mg PO DAILY 09/27/18 03/10/19 duloxetine 60 mg PO BID 09/28/18 03/10/19 polyethylene glycol 3350 17 g PO DAILY PRN 09/28/18 03/10/19 lorazepam 0.5 mg PO TID PRN 11/12/18 03/10/19 silver sulfadiazine [SSD] 1 applic TOPICAL TID 11/12/18 03/10/19 melatonin 10 mg PO BEDTIME PRN 03/10/19 03/10/19 pantoprazole 20 mg PO DAILY 03/10/19 03/10/19 Previous Rx's Medication Instructions Recorded lidocaine 1 patch TOP DAILY #30 each 12/19/18 Allergies Allergy/AdvReac Type Severity Reaction Status Date / Time latex Allergy Mild IRRITATION Verified 06/13/19 16:39 carisoprodol [From Soma] Allergy Verified 06/13/19 16:39 hydromorphone Allergy Verified 06/13/19 16:39 Sulfa (Sulfonamide AdvReac Mild N&V 1HOUR Verified 06/13/19 16:39 Antibiotics) AFTER RX, THINKS IT IS RELATED Review of Systems Review of Systems Narrative: All systems reviewed and are unremarkable except as noted in HPI and below Patient History Social History household members: friend(s) and other Smoking Status: Former smoker alcohol intake: former Smoking Status: Former smoker alcohol intake frequency: 0-2 drinks per day Alcohol type: beer Substance Use Type: does not use Exam Narrative Exam Narrative: With General: in no acute distress. Able to give a complete and coherent history. Well-nourished well-developed HEENT: Moist mucous membranes, normal sclera with reactive pupils, Neck: No JVD, supple Respiratory: Lungs are clear to auscultation, no wheezing no rales no rhonchi. Full and symmetrical air movement Cardiac: Regular rate and rhythm, 3/6 systolic ejection murmur, no bruits Abdomen: Soft nontender good bowel tones, no flank pain Skin: Warm and dry, no rashes Neurologic: Grossly neurologically intact with no obvious asymmetries or a bnormalities Extremities: No trauma, well perfused, 2+ bilateral edema with chronic venous stasis changes bilaterally. Left leg with erythema extending from mid foot to just under the knee with excoriation and some minor skin cracks/breakdown on the medial aspect of the left ankle. No obvious area of abscess or drainage. No associated inguinal adenopathy Psych: Cooperative, appropriate insight and affect Initial Vital Signs Initial Vital Signs: Vital Signs Temperature 97.9 F 06/13/19 16:30 Pulse Rate 87 06/13/19 16:30 Respiratory Rate 24 06/13/19 16:30 Blood Pressure 191/81 H 06/13/19 16:30 Pulse Oximetry 98 06/13/19 16:30 Course Orders Ordered: ED Orders 06/13/19 17:00 Complete Blood Count AUTO DIFF Stat Comprehensive Metabolic Panel Stat Lactate (Lactic Acid) Stat 06/13/19 17:23 Blood Culture Stat Discontinued Medications Ceftriaxone Sodium/Dextrose (Rocephin) 2 gm in 50 mls @ 100 mls/hr IV NOW ONE Stop: 06/13/19 17:21 Last Admin: 06/13/19 17:26 Dose: 100 mls/hr Documented by: CECILY Silver Sulfadiazine (Silvadene) 1 applic TOP NOW ONE Stop: 06/13/19 17:47 Vital Signs Vital signs: Vital Signs - 8 hr 06/13/19 16:30 Temperature 97.9 F Pulse Rate 87 Respiratory Rate 24 Blood Pressure 191/81 H Pulse Oximetry 98 MDM - Wound/Laceration Medical Records Attestation: I reviewed the patient's medical records. Lab Data Attestation: I reviewed the patient's lab results. Lab results narrative: Chronic anemia renal failure has improved somewhat No evidence of overwhelming infection Creatinine stable at 2.2 Lactic acid is 1.1, no evidence of sepsis Result diagrams: 06/13/19 17:00 06/13/19 17:00 Labs: Lab Results 06/13/19 06/13/19 06/13/19 Range/Units 17:00 17:00 17:00 WBC 8.9 (4.5-11.0) X10^3/uL RBC 3.05 L (4.5-5.9) X10^6/uL Hgb 9.2 L (13.5-17.5) g/dL Hct 28.1 L (41-53) % MCV 92.4 (80-100) fL MCH 30.3 (26-34) PG MCHC 32.8 (30-36) % RDW 14.8 (11.6-14.8) % Plt Count 243 (150-400) X10^3/uL Neut % (Auto) 71.9 (50-75) % Lymph % (Auto) 14.7 L (25-40) % [place] % (Auto) 9.5 (3-14) % Eos % (Auto) 3.6 (2-4) % Baso % (Auto) 0.3 (0-2) % Neut # (Auto) 6400 (4861-1824) /uL Lymph # (Auto) 1300 (2908-9702) /uL [place] # (Auto) 800 (0-900) /uL Eos # (Auto) 300 (0-450) /uL Baso # (Auto) 0 (0-100) /uL Sodium 138 (137-145) mmol/L Potassium 4.6 (3.4-5.1) mmol/L Chloride 104 (98-107) mmol/L Carbon Dioxide 27 (22-32) mmol/L BUN 45 H (9-20) mg/dL Creatinine 2.20 H (0.66-1.25) mg/dL Estimated GFR 30.0 L (>60) mL/min BUN/Creatinine Ratio 20.5 (6-22) Glucose 160 H (80-110) mg/dL Lactate 1.1 (0.7-2.1) mmol/L Calcium 8.6 (8.4-10.2) mg/dL Total Bilirubin 0.3 (0.2-1.3) mg/dL AST 20 (17-59) IU/L ALT 10 (<50) IU/L Alkaline Phosphatase 94 (38-126) U/L Total Protein 7.5 (6.3-8.2) g/dL Albumin 4.0 (3.5-5.0) g/dL Globulin 3.5 (1.7-4.1) g/dL Albumin/Globulin Ratio 1.1 (1.0-2.8) MDM Narrative Medical decision making narrative: 68-year-old gentleman with chronic renal failure, peripheral edema, peripheral neuropathy and developing cellulitis of the left lower extremity. He is given 2 g of IV ceftriaxone in the emergency department and will be continued on Keflex and discharged home. Will ask him to reestablish care with the wound clinic to make sure that he is improving and that the lower extremities are appropriately dressed to prevent continued or new infection. There is no evidence of sepsis or DVT. Patient is safe for home discharge Discharge Plan Departure Patient Disposition: Home Clinical Impression: Bilateral edema of lower extremity Cellulitis Qualifiers: Site of cellulitis: extremity Site of cellulitis of extremity: lower extremity Laterality: left Qualified Code(s): L03.116 - Cellulitis of left lower limb Chronic kidney failure Qualifiers: Chronic kidney disease stage: unspecified stage Qualified Code(s): N18.9 - Chronic kidney disease, unspecified Instructions: DI for Wound Infection Activity Restrictions/Additional Instructions: Thank you for paying close attention and coming in appropriately early with concerns of developing infection in your left leg. You do have a cellulitis however it has not spread throughout your body, you are not septic in you do not need to stay in the hospital for treatment. You did get your 1st dose of antibiotics through your IV in the emergency department. You do need to complete 10 days of Keflex, antibiotic. Please call tomorrow to set up an appointment with wound care and reestablish treatment for your left lower extremity If the your leg begins actually hurting, you are developing a fever, increasing weakness or new signs of infection or the redness is obviously extending up your leg, please return to the ER Prescriptions: No Action doxazosin 4 mg Tablet 4 mg PO BEDTIME RF: 0 furosemide 40 mg Tablet 60 mg PO DAILY RF: 0 duloxetine 60 mg capsule,delayed release(DR/EC) 60 mg PO BID RF: 0 polyethylene glycol 3350 17 gram/dose Powder 17 g PO DAILY PRN (Reason: Constipation) RF: 0 silver sulfadiazine [SSD] 1 % cream 1 applic TOPICAL TID RF: 0 lorazepam 0.5 mg tablet 0.5 mg PO TID PRN (Reason: Anxiety) RF: 0 citalopram 20 MG tablet 20 mg PO DAILY RF: 0 glimepiride 1 mg tablet 1 mg PO DAILY RF: 0 lidocaine 5 % adhesive patch,medicated 1 patch TOP DAILY Qty: 30 RF: 0 pantoprazole 20 mg Tablet,Delayed Release (Dr/Ec) 20 mg PO DAILY RF: 0 melatonin 10 mg Tablet 10 mg PO BEDTIME PRN (Reason: insomnia) RF: 0 Referrals: Jim Quintana MD [Primary Care Provider] -
[2019-06-13] MEDS: SILVER SULFADIAZINE 1% CREAM 25 GM 1 APPLIC TOP (18:01)
[2019-06-13 18:53] VITALS: BP 196/98; PULSE 88; RESP 20; O2SAT 97
--- NOTE | 2019-06-14 13:07 | PC.NURSE ---
Received phone call from wound care (on behalf of pt) stating that abx script had not been sent. Discussed w/ Dr. Garcia who sent script to [facility] on [address]. Pt called and updated. Encouraged to f/u as needed and indicated and return for any needs or concerns.
== END 2019-06-13 18:52 | disposition home or self-care (01) ==
PROVIDERS: Emergency Provider Emergency Medicine; PCP Family Medicine
DX: R60.0 Localized edema (principal); L03.116 Cellulitis of left lower limb; N18.9 Chronic kidney disease, unspecified
CPT/HCPCS: 36415; 80053; 83605; 85025; 87040; 96365; 99284; J0696

== ENCOUNTER → 2019-06-17 13:56 | Outpatient (CLI) | payer MEDICARE, MEDICAID, SELFPAY ==
[2019-01-25 14:14] VITALS: PULSE 56; RESP 16; O2SAT 100
== END ==
PROVIDERS: PCP Family Medicine; Referring Provider Family Medicine; Visit Provider Family Medicine
DX: I87.2 Venous insufficiency (chronic) (peripheral) (principal); L97.821 Non-pressure chronic ulcer of other part of left lower leg limited to breakdown of skin; L03.116 Cellulitis of left lower limb; F10.20 Alcohol dependence, uncomplicated; R60.0 Localized edema; Z91.14 Patient's other noncompliance with medication regimen; Z91.19 Patient's noncompliance with other medical treatment and regimen
CPT/HCPCS: 87070; 87075; 87077; 87186; 87205; 97597; 99214

== ENCOUNTER → 2019-07-01 13:25 | Outpatient (CLI) | payer MEDICARE, MEDICAID, SELFPAY ==
[2019-01-25 14:14] VITALS: PULSE 56; RESP 16; O2SAT 100
== END ==
PROVIDERS: PCP Family Medicine; Referring Provider Family Medicine; Visit Provider Family Medicine
DX: I87.2 Venous insufficiency (chronic) (peripheral) (principal); L97.821 Non-pressure chronic ulcer of other part of left lower leg limited to breakdown of skin; F10.20 Alcohol dependence, uncomplicated; R60.0 Localized edema; Z91.14 Patient's other noncompliance with medication regimen; Z91.19 Patient's noncompliance with other medical treatment and regimen
CPT/HCPCS: 29581; 99214

== ENCOUNTER → 2019-07-22 14:06 | Outpatient (CLI) | payer MEDICARE, MEDICAID, SELFPAY ==
[2019-01-25 14:14] VITALS: PULSE 56; RESP 16; O2SAT 100
== END ==
PROVIDERS: PCP Family Medicine; Referring Provider Family Medicine; Visit Provider Family Medicine
DX: I87.2 Venous insufficiency (chronic) (peripheral) (principal); L97.821 Non-pressure chronic ulcer of other part of left lower leg limited to breakdown of skin; F10.20 Alcohol dependence, uncomplicated; R60.0 Localized edema; Z91.14 Patient's other noncompliance with medication regimen; Z91.19 Patient's noncompliance with other medical treatment and regimen
CPT/HCPCS: 29581; 99213

== ENCOUNTER → 2019-07-24 11:46 | Outpatient (CLI) | payer MEDICARE, MEDICAID, SELFPAY ==
[2019-01-25 14:14] VITALS: PULSE 56; RESP 16; O2SAT 100
[2019-07-24 13:30] LABS: Add Manual Diff / Slide Review NO; Basophils Absolute Auto 0 /uL (0-100); Basophils Percent Auto 0.4 % (0-2); Eosinophils Absolute Auto 200 /uL (0-450); Eosinophils Percent Auto 3.4 % (2-4); Hematocrit 23.5 % (41-53); Hemoglobin 7.9 g/dL (13.5-17.5); Lymphocytes Absolute Auto 600 /uL (1100-4500); Lymphocytes Percent Auto 8.8 % (25-40); Mean Corpuscular HGB Conc 33.8 % (30-36); Mean Corpuscular Hemoglobin 31.5 PG (26-34); Mean Corpuscular Volume 93.3 fL (80-100); Monocytes Absolute Auto 500 /uL (0-900); Monocytes Percent Auto 7.5 % (3-14); Neutrophils Absolute Auto 5400 /uL (1500-7000); Neutrophils Percent Auto 79.9 % (50-75); Platelet Count 211 X10^3/uL (150-400); Red Blood Cell Count 2.52 X10^6/uL (4.5-5.9); Red Cell Distribution Width 14.1 % (11.6-14.8); White Blood Cell Count 6.7 X10^3/uL (4.5-11.0)
[2019-07-24 13:33] LABS: Hemoglobin A1C% w Est Avg Glu 5.7 % (4.0-6.0)
[2019-07-24 13:42] LABS: Alanine Aminotransferase 9 IU/L (<50); Albumin 3.5 g/dL (3.5-5.0); Albumin Globulin Ratio 1.1 (1.0-2.8); Alkaline Phosphatase 102 U/L (38-126); Aspartate Aminotransferase 19 IU/L (17-59); BUN Creatinine Ratio 22.4 (6-22); Bilirubin Total 0.5 mg/dL (0.2-1.3); Blood Urea Nitrogen 48 mg/dL (9-20); Calcium 7.9 mg/dL (8.4-10.2); Carbon Dioxide 25 mmol/L (22-32); Chloride 95 mmol/L (98-107); Cholesterol 137 mg/dL (140-199); Globulin 3.1 g/dL (1.7-4.1); Glucose 235 mg/dL (80-110); HDL Cholesterol 47 mg/dL (40-60); HEMOLYSIS < 15 (0-50); LDL Cholesterol Calculated 79 mg/dL (<100); Potassium 4.4 mmol/L (3.4-5.1); Sodium 131 mmol/L (137-145); Total Protein 6.6 g/dL (6.3-8.2); Triglycerides 57 mg/dL (35-150); Uric Acid 6.5 mg/dL (3.5-8.5)
== END ==
PROVIDERS: PCP Family Medicine; Referring Provider Family Medicine; Visit Provider Family Medicine
DX: Z12.5 Encounter for screening for malignant neoplasm of prostate (principal); E16.2 Hypoglycemia, unspecified; N19 Unspecified kidney failure; I10 Essential (primary) hypertension; M10.9 Gout, unspecified; R60.0 Localized edema; D64.9 Anemia, unspecified; E11.9 Type 2 diabetes mellitus without complications
CPT/HCPCS: 36415; 80053; 80061; 83036; 84550; 85025; G0103

== ENCOUNTER 2019-08-07 23:24 | Inpatient (IN) | payer MEDICARE, MEDICAID, SELFPAY ==
[2019-01-25 14:14] VITALS: PULSE 56; RESP 16; O2SAT 100
[2019-08-07 23:30] VITALS: BP 148/64; PULSE 88; RESP 32; TEMP 37.3; O2SAT 95
--- NOTE | 2019-08-07 23:39 | ED_ITS ---
HPI - General Adult General Chief complaint: Weakness Stated complaint: UTI Time Seen by Provider: 08/07/19 23:25 History of Present Illness HPI narrative: 68-year-old gentleman with a history of alcoholism, chronic renal failure, duodenal ulcer and GI bleed, depression, diabetes chronic back pain and spinal surgery, presents with weakness increasing for 2 weeks and his family concerned that he ?might be developing a UTI.He does not complain of fevers, cough or chest pain. He notes that he is a bit dizzy when he sits up. He states that he has had 2 beers over the course of the entire day today. He denies any diarrhea or black stools and also denies any nausea vomiting or signs of GI bleeding. He has no specific belly pain but is complaining of his chronic back pain. When he arrives his left lower extremity is wrapped in a medical dressing with so much serous drainage that the dressing and his pant leg all the way to the knee are completely soaked to the point of dripping with fluid. Related Data Home Medications Medication Instructions Recorded Confirmed citalopram 20 mg PO DAILY 12/25/17 03/10/19 glimepiride 1 mg PO DAILY 03/22/18 03/10/19 doxazosin 4 mg PO BEDTIME 06/07/18 03/10/19 furosemide 60 mg PO DAILY 09/27/18 03/10/19 duloxetine 60 mg PO BID 09/28/18 03/10/19 polyethylene glycol 3350 17 g PO DAILY PRN 09/28/18 03/10/19 lorazepam 0.5 mg PO TID PRN 11/12/18 03/10/19 silver sulfadiazine [SSD] 1 applic TOPICAL TID 11/12/18 03/10/19 melatonin 10 mg PO BEDTIME PRN 03/10/19 03/10/19 pantoprazole 20 mg PO DAILY 03/10/19 03/10/19 Previous Rx's Medication Instructions Recorded lidocaine 1 patch TOP DAILY #30 each 12/19/18 cephalexin 500 mg PO TID #30 cap 06/14/19 Allergies Allergy/AdvReac Type Severity Reaction Status Date / Time latex Allergy Mild IRRITATION Verified 06/13/19 16:39 carisoprodol [From Soma] Allergy Verified 06/13/19 16:39 hydromorphone Allergy Verified 04/09/20 16:39 Sulfa (Sulfonamide AdvReac Mild N&V 1HOUR Verified 06/13/19 16:39 Antibiotics) AFTER RX, THINKS IT IS RELATED Review of Systems Review of Systems Narrative: Pertinent positive and negative findings as per HPI Remainder of review of systems is otherwise unremarkable for ENT: No sore throat, neck pain, ear pain : Dysuria, hematuria, flank pain MS: Muscle weakness, numbness, joint swelling or warmth Patient History Medical History Alcoholism (Chronic) Anemia associated with chronic renal failure (Chronic) Cellulitis of lower leg (Chronic) Chronic kidney disease, stage 4 (severe) (Chronic) Chronic pain (Chronic) Depression (Chronic) Diabetes type 2, controlled (Chronic) Duodenal ulcer (Acute) GI bleed (Resolved) Gout, arthropathy (Chronic) History of cervical fracture (Resolved) Hyperparathyroidism (Chronic) Hypertension (Chronic) Left leg pain (Chronic) Symptomatic anemia (Chronic) Surgical History H/O cervical spine surgery (Acute) History of colectomy (Resolved) History of fusion of cervical spine (Chronic) Social History household members: friend(s) and other Smoking Status: Former smoker alcohol intake: current Smoking Status: Former smoker alcohol intake frequency: 0-2 drinks per day Alcohol type: beer Substance Use Type: does not use Exam Narrative Exam Narrative: General: Pale and fatigued speak in full sentences HEENT: Dry t mucous membranes, normal sclera with reactive pupils, Neck: No JVD, supple Respiratory: Lungs are clear to auscultation, no wheezing no rales no rhonchi. Full and symmetrical air movement Cardiac: Regular rate and rhythm no murmurs no bruits Abdomen: Soft nontender good bowel tones, no flank pain Skin: Significant lower extremity edema. Left lower extremity with erythema under the dressing up to the level of the knee with significant serous drainage but no obvious ulceration. This appears slightly worse the chronic erythema and drainage of the left lower extremity that is being followed by wound care Neurologic: Globally weak with no obvious asymmetries or abnormalities Extremities: No trauma, Psych: Cooperative, fluent speech pattern : he is guaiac negative Initial Vital Signs Initial Vital Signs: Vital Signs Temperature 99.1 F 08/07/19 23:30 Pulse Rate 88 08/07/19 23:30 Respiratory Rate 32 H 08/07/19 23:30 Blood Pressure 148/64 H 08/07/19 23:30 Pulse Oximetry 95 08/07/19 23:30 Course Orders Ordered: ED Orders 08/07/19 23:37 EKG-12 Lead Routine 08/07/19 23:40 XR chest 1V Stat Blood Culture Stat Complete Blood Count AUTO DIFF Stat Comprehensive Metabolic Panel Stat Lactate (Lactic Acid) Stat Magnesium Stat Procalcitonin Stat Troponin I Stat 08/08/19 00:00 Ethanol (ETOH) Stat Urinalysis and Microscopic Stat Urine Culture Stat 08/08/19 00:41 Packed Cells Stat Type and Screen Stat 08/08/19 06:00 Basic Metabolic Panel Stat Hemoglobin and Hematocrit Stat Folic Acid (Folic Acid) 1 mg PO DAILY [facility] Pantoprazole Sodium 80 mg/ (Sodium Chloride) 100 mls @ 10 mls/hr IV CONT DAVID Last Infusion: 08/08/19 01:54 Dose: 8 mg/hr, 10 mls/hr Documented by: Admin: 08/08/19 01:43 Dose: 8 mg/hr, 10 mls/hr Documented by: EMMETT Morphine Sulfate (Morphine) 2 mg IV Q4HR PRN PRN Reason: Pain, Moderate (4-6) Last Admin: 08/08/19 02:37 Dose: 2 mg Documented by: LISSETH Multivitamins (Tab-A-Isidro) 1 tab PO DAILY [facility] Sodium Chloride (Normal Saline 0.9% Flush) 10 ml IV PRN PRN PRN Reason: Flush Last Admin: 08/08/19 04:53 Dose: 10 ml Documented by: LISSETH Thiamine HCl (Vitamin B-1) 100 mg PO DAILY DAVID Stop: 08/11/19 09:01 Discontinued Medications Fentanyl (Sublimaze) 100 mcg IV NOW ONE Stop: 08/08/19 01:04 Last Admin: 08/08/19 01:16 Dose: 100 mcg Documented by: EMMETT Furosemide (Lasix) 60 mg IV NOW ONE Stop: 08/08/19 01:04 Last Admin: 08/08/19 04:41 Dose: Not Given Documented by: LISSETH Furosemide (Lasix) 60 mg IV NOW ONE Stop: 08/08/19 04:41 Last Admin: 08/08/19 04:52 Dose: 60 mg Documented by: LISSETH Levofloxacin (Levaquin) 750 mg in 150 mls @ 100 mls/hr IV NOW ONE Stop: 08/08/19 02:40 Last Infusion: 08/08/19 01:54 Dose: 100 mls/hr Documented by: Admin: 08/08/19 01:24 Dose: 100 mls/hr Documented by: EMMETT Pantoprazole Sodium (Protonix) 40 mg IV NOW ONE Stop: 08/08/19 01:06 Last Admin: 08/08/19 01:18 Dose: 40 mg Documented by: EMMETT Vital Signs Vital signs: Vital Signs - 8 hr 08/07/19 23:30 08/08/19 00:47 Temperature 99.1 F Pulse Rate 88 68 Respiratory Rate 32 H 18 Blood Pressure 148/64 H Blood Pressure [Left Arm] 123/59 L Pulse Oximetry 95 95 Medical Decision Making Medical Records Medical records reviewed: Yes I reviewed the patient's medical records. Lab Data Lab results reviewed: Yes I reviewed the patient's lab results. Lab results narrative: No significant leukocytosis but there is a slight left shift Significant anemia, hemoglobin is typically in the 8-9 range and today is at 6.2 Slight increase in creatinine Urine with 1+ leukocyte esterase, 0-1 white blood cells and occasional bacteria. Result diagrams: 08/08/19 00:00 08/08/19 00:00 Labs: Lab Results 08/08/19 08/08/19 08/08/19 Range/Units 00:00 00:00 00:00 WBC 9.4 (4.5-11.0) X10^3/uL RBC 1.96 L (4.5-5.9) X10^6/uL Hgb 6.2 L* (13.5-17.5) g/dL Hct 18.2 L* (41-53) % MCV 92.7 (80-100) fL MCH 31.6 (26-34) PG MCHC 34.1 (30-36) % RDW 14.4 (11.6-14.8) % Plt Count 221 (150-400) X10^3/uL Neut % (Auto) 80.8 H (50-75) % Lymph % (Auto) 7.8 L (25-40) % [place] % (Auto) 8.7 (3-14) % Eos % (Auto) 2.3 (2-4) % Baso % (Auto) 0.4 (0-2) % Neut # (Auto) 7600 H (0105-6686) /uL Lymph # (Auto) 700 L (3739-5126) /uL [place] # (Auto) 800 (0-900) /uL Eos # (Auto) 200 (0-450) /uL Baso # (Auto) 0 (0-100) /uL Sodium 132 L (137-145) mmol/L Potassium 4.4 (3.4-5.1) mmol/L Chloride 98 (98-107) mmol/L Carbon Dioxide 27 (22-32) mmol/L BUN 56 H (9-20) mg/dL Creatinine 2.28 H (0.66-1.25) mg/dL Estimated GFR 28.8 L (>60) mL/min BUN/Creatinine Ratio 24.6 H (6-22) Glucose 214 H (80-110) mg/dL Lactate (0.7-2.1) mmol/L Calcium 8.4 (8.4-10.2) mg/dL Magnesium 2.2 (1.6-2.3) mg/dL Total Bilirubin 0.3 (0.2-1.3) mg/dL AST 18 (17-59) IU/L ALT 9 (<50) IU/L Alkaline Phosphatase 88 (38-126) U/L Troponin I 0.014 (0.01-0.034) ng/mL Total Protein 6.6 (6.3-8.2) g/dL Albumin 3.5 (3.5-5.0) g/dL Globulin 3.1 (1.7-4.1) g/dL Albumin/Globulin Ratio 1.1 (1.0-2.8) Procalcitonin 0.12 (<0.5) ng/mL Urine Color Urine Appearance Urine pH (4.5-8.0) Ur Specific [place] (1.000-1.035) Urine Protein (Negative) Urine Glucose (UA) (Negative) g/dL Urine Ketones (NEGATIVE) Urine Occult Blood (Negative) Urine Nitrate (Negative) Urine Bilirubin (NEGATIVE) Urine Urobilinogen (0.2) E.U./dL Ur Leukocyte Esterase (NEGATIVE) Urine RBC (0-5/HPF) Urine WBC (0-5/HPF) Ur Squamous Epith Cells (0-5/HPF) Urine Bacteria (None) Ur Culture Indicated? Ethyl Alcohol ( - 10) mg/dL Blood Type Antibody Screen Crossmatch 08/08/19 08/08/19 08/08/19 Range/Units 00:00 00:00 00:00 WBC (4.5-11.0) X10^3/uL RBC (4.5-5.9) X10^6/uL Hgb (13.5-17.5) g/dL Hct (41-53) % MCV (80-100) fL MCH (26-34) PG MCHC (30-36) % RDW (11.6-14.8) % Plt Count (150-400) X10^3/uL Neut % (Auto) (50-75) % Lymph % (Auto) (25-40) % [place] % (Auto) (3-14) % Eos % (Auto) (2-4) % Baso % (Auto) (0-2) % Neut # (Auto) (6378-8056) /uL Lymph # (Auto) (7060-5294) /uL [place] # (Auto) (0-900) /uL Eos # (Auto) (0-450) /uL Baso # (Auto) (0-100) /uL Sodium (137-145) mmol/L Potassium (3.4-5.1) mmol/L Chloride (98-107) mmol/L Carbon Dioxide (22-32) mmol/L BUN (9-20) mg/dL Creatinine (0.66-1.25) mg/dL Estimated GFR (>60) mL/min BUN/Creatinine Ratio (6-22) Glucose (80-110) mg/dL Lactate 1.2 (0.7-2.1) mmol/L Calcium (8.4-10.2) mg/dL Magnesium (1.6-2.3) mg/dL Total Bilirubin (0.2-1.3) mg/dL AST (17-59) IU/L ALT (<50) IU/L Alkaline Phosphatase (38-126) U/L Troponin I (0.01-0.034) ng/mL Total Protein (6.3-8.2) g/dL Albumin (3.5-5.0) g/dL Globulin (1.7-4.1) g/dL Albumin/Globulin Ratio (1.0-2.8) Procalcitonin (<0.5) ng/mL Urine Color Yellow Urine Appearance Clear Urine pH 5.0 (4.5-8.0) Ur Specific [place] <=1.005 (1.000-1.035) Urine Protein Trace H (Negative) Urine Glucose (UA) Negative (Negative) g/dL Urine Ketones Negative (NEGATIVE) Urine Occult Blood Negative (Negative) Urine Nitrate Negative (Negative) Urine Bilirubin Negative (NEGATIVE) Urine Urobilinogen 0.2 (0.2) E.U./dL Ur Leukocyte Esterase 1+ H (NEGATIVE) Urine RBC None seen (0-5/HPF) Urine WBC 1-5/hpf (0-5/HPF) Ur Squamous Epith Cells 0-1 /hpf (0-5/HPF) Urine Bacteria Occasional (0-1) D (None) Ur Culture Indicated? Specimen cultured Ethyl Alcohol < 10 ( - 10) mg/dL Blood Type Antibody Screen Crossmatch 08/08/19 Range/Units 00:41 WBC (4.5-11.0) X10^3/uL RBC (4.5-5.9) X10^6/uL Hgb (13.5-17.5) g/dL Hct (41-53) % MCV (80-100) fL MCH (26-34) PG MCHC (30-36) % RDW (11.6-14.8) % Plt Count (150-400) X10^3/uL Neut % (Auto) (50-75) % Lymph % (Auto) (25-40) % [place] % (Auto) (3-14) % Eos % (Auto) (2-4) % Baso % (Auto) (0-2) % Neut # (Auto) (8066-4068) /uL Lymph # (Auto) (4627-8643) /uL [place] # (Auto) (0-900) /uL Eos # (Auto) (0-450) /uL Baso # (Auto) (0-100) /uL Sodium (137-145) mmol/L Potassium (3.4-5.1) mmol/L Chloride (98-107) mmol/L Carbon Dioxide (22-32) mmol/L BUN (9-20) mg/dL Creatinine (0.66-1.25) mg/dL Estimated GFR (>60) mL/min BUN/Creatinine Ratio (6-22) Glucose (80-110) mg/dL Lactate (0.7-2.1) mmol/L Calcium (8.4-10.2) mg/dL Magnesium (1.6-2.3) mg/dL Total Bilirubin (0.2-1.3) mg/dL AST (17-59) IU/L ALT (<50) IU/L Alkaline Phosphatase (38-126) U/L Troponin I (0.01-0.034) ng/mL Total Protein (6.3-8.2) g/dL Albumin (3.5-5.0) g/dL Globulin (1.7-4.1) g/dL Albumin/Globulin Ratio (1.0-2.8) Procalcitonin (<0.5) ng/mL Urine Color Urine Appearance Urine pH (4.5-8.0) Ur Specific [place] (1.000-1.035) Urine Protein (Negative) Urine Glucose (UA) (Negative) g/dL Urine Ketones (NEGATIVE) Urine Occult Blood (Negative) Urine Nitrate (Negative) Urine Bilirubin (NEGATIVE) Urine Urobilinogen (0.2) E.U./dL Ur Leukocyte Esterase (NEGATIVE) Urine RBC (0-5/HPF) Urine WBC (0-5/HPF) Ur Squamous Epith Cells (0-5/HPF) Urine Bacteria (None) Ur Culture Indicated? Ethyl Alcohol ( - 10) mg/dL Blood Type O Positive Antibody Screen Negative Crossmatch See Detail Point of care testing: Microbiology review: Prior wound cultures of the leg Gram Stain Final 06/17/19-1726 No cells/ Organisms seen No cells or organisms seen White blood cells No WBC seen Aerobic Culture for wounds Final 06/20/19- 0854 Organism 1 Corynebacterium striatum Growth LIGHT Organism 2 Pseudomonas aeruginosa Growth SCANT 2. Pseudomonas aeruginosa M.I.C. RX --------- --- * Amikacin S * Cefepime S * Ciprofloxacin S * Gentamicin S * Imipenem S * Levofloxacin S * Meropenem S * Tobramycin S * Piperacillin/Tazobactam S Urine culture from March with UTI at that time: Urine Culture Final 03/12/193821 Organism 1 Escherichia coli Crystal Count >100,000 CFU/ml 1. Escherichia coli M.I.C. RX --------- --- * Amoxicillin/Clavulanate S * Ampicillin I * Ampicillin/Sulbactam S * Cefazolin S * Cefepime S * Ceftriaxone S * Ciprofloxacin R * Ertapenem S * Gentamicin S * Imipenem S * Levofloxacin R * Nitrofurantoin S * Tobramycin S * Trimethoprim/Sulfamethoxazole S * Piperacillin/Tazobactam S ECG Data Attestation: I personally reviewed and interpreted this ECG as follows: Interpretation: Sinus rhythm at a rate of [address] Inter[address] conduction delay Mild ST depression fromV3-V6 without reciprocal ST elevation MDM Narrative Medical decision making narrative: 68-year-old gentleman with multiple chronic medical problems presents with increasing weakness for 2 weeks. Today is found to have acute anemia presumably GI loss unknown time frame but does not appear to be actively bleeding currently. With some minor ST depression showing on his EKG will transfuse him with 2 units of packed red blood cells. Will also begin proton pump inhibitor drip. Similar presentation in January of 2019. He had an EGD at that time that showed a small shallow ulcer in the 2nd portion of the duodenum. Patient was supposed to been treated for H pylori, continue proton pump inhibitor and it also appears that he has continued nonsteroidals as well as alcohol. Concern for left lower extremity cellulitis as well as possible UTI. Based on prior cultures will begin ceftriaxone which will also provide coverage regarding GI bleed as well as Levaquin for Pseudomonas coverage. He currently is not showing any signs of sepsis or hemodynamic instability. Will contact surgery regarding the presumed recent if not current upper GI bleed and Dr. Santoyo for hospital admission as this patient's primary care provider is Dr. Quintana. 100am Reviewied with Dr Rodgers. Surgery team will consult in the morning 110am spoke with Dr. Santoyo. Bridging orders are done including CIWA orders should that become an issue. No acute signs of withdrawal or evident this time Patient is safe for transfer to the floor Discharge Plan Departure Patient Disposition: Admitted As Inpatient Clinical Impression: Acute UTI, Acute anemia, Cellulitis of left leg GI bleed Qualifiers: GI bleed type/associated pathology: unspecified gastrointestinal hemorrhage type Qualified Code(s): K92.2 - Gastrointestinal hemorrhage, unspecified Discharge Date/Time: 08/08/19 01:59 Admit Date/Time: 08/08/19 01:12 Admit Provider: Shawna Santoyo
--- NOTE | 2019-08-07 23:40 | DI.RAD.S_ITS ---
PROCEDURE: XR CHEST 1V INDICATIONS: dyspnea TECHNIQUE: One view of the chest was acquired. COMPARISON: [facility], CR, XR CHEST 2V, 03/10/2019, 17:55. [facility], CR, XR CHEST 1V, 01/24/2019, 17:45. FINDINGS: Surgical changes and devices: Stable over time, cervical and thoracolumbar fusion procedures. At the cervical fusion the inferior right and adjacent one levels superior left fixation screws appear fractured, previously the case in January of 2019. Lungs and pleura: Lungs are abnormal with what appears to be a chronic CHF pattern accentuated by reduced inspiration.. No pleural effusions or pneumothorax. Mediastinum: Mediastinal contours appear normal. Heart size is moderately globally enlarged. Bones and chest wall: No suspicious bony lesions. Overlying soft tissues appear unremarkable. IMPRESSION: Prior fusion procedures involving the spine with previous present cervical transverse pedicle screw fractures as discussed. Chronic CHF pattern, no definite acute exacerbation when this is taken into account. Chronic cardiomegaly. Dictated by: Tony Carrillo M.D. on 08/08/2019 at 8:21 Approved by: Tony Carrillo M.D. on 08/08/2019 at 8:24
[2019-08-08] VITALS (15 sets, daily range): BP systolic 111–155; BP diastolic 50–83; PULSE 68–95; RESP 14–20; TEMP 36.6–37.3; O2SAT 93–98; BMI 39.8
[2019-08-08 00:22] LABS: Add Manual Diff / Slide Review NO; Basophils Absolute Auto 0 /uL (0-100); Basophils Percent Auto 0.4 % (0-2); Eosinophils Absolute Auto 200 /uL (0-450); Eosinophils Percent Auto 2.3 % (2-4); Lymphocytes Absolute Auto 700 /uL (1100-4500); Lymphocytes Percent Auto 7.8 % (25-40); Mean Corpuscular HGB Conc 34.1 % (30-36); Mean Corpuscular Hemoglobin 31.6 PG (26-34); Mean Corpuscular Volume 92.7 fL (80-100); Monocytes Absolute Auto 800 /uL (0-900); Monocytes Percent Auto 8.7 % (3-14); Neutrophils Absolute Auto 7600 /uL (1500-7000); Neutrophils Percent Auto 80.8 % (50-75); Platelet Count 221 X10^3/uL (150-400); Red Blood Cell Count 1.96 X10^6/uL (4.5-5.9); Red Cell Distribution Width 14.4 % (11.6-14.8); White Blood Cell Count 9.4 X10^3/uL (4.5-11.0)
[2019-08-08 00:26] LABS: Lactate (Lactic Acid) 1.2 mmol/L (0.7-2.1)
[2019-08-08 00:28] LABS: Alanine Aminotransferase 9 IU/L (<50); Albumin 3.5 g/dL (3.5-5.0); Albumin Globulin Ratio 1.1 (1.0-2.8); Alkaline Phosphatase 88 U/L (38-126); Aspartate Aminotransferase 18 IU/L (17-59); BUN Creatinine Ratio 24.6 (6-22); Bilirubin Total 0.3 mg/dL (0.2-1.3); Blood Urea Nitrogen 56 mg/dL (9-20); Calcium 8.4 mg/dL (8.4-10.2); Carbon Dioxide 27 mmol/L (22-32); Chloride 98 mmol/L (98-107); Estimated Glomerular Filt Rate 28.8 mL/min (>60); Globulin 3.1 g/dL (1.7-4.1); Glucose 214 mg/dL (80-110); HEMOLYSIS < 15 (0-50); Hematocrit 18.2 % (41-53); Hemoglobin 6.2 g/dL (13.5-17.5); Magnesium 2.2 mg/dL (1.6-2.3); Potassium 4.4 mmol/L (3.4-5.1); Sodium 132 mmol/L (137-145); Total Protein 6.6 g/dL (6.3-8.2)
[2019-08-08 00:37] LABS: RBC Urine None Seen (0-5/HPF)
[2019-08-08 00:38] LABS: Appearance Urine UA CLEAR; Bilirubin Urine UA NEGATIVE (NEGATIVE); Color Urine UA YELLOW; Glucose Urine UA NEGATIVE (Negative); Ketones Urine UA NEGATIVE (NEGATIVE); Leukocyte Esterase Urine UA 1+ (NEGATIVE); Nitrite Urine UA NEGATIVE (Negative); Occult Blood Urine UA NEGATIVE (Negative); Protein Urine UA TRACE (Negative); Specific Gravity Urine UA <=1.005 (1.000-1.035); Urobilinogen Urine UA 0.2 E.U./dL (0.2)
[2019-08-08 00:39] LABS: Troponin I 0.014 ng/mL (0.01-0.034)
[2019-08-08 00:46] LABS: Procalcitonin 0.12 ng/mL (<0.5)
[2019-08-08 00:49] LABS: Bacteria Urine Occasional (0-1); Culture Indicated Urine Specimen Cultured; Squamous Epithelial Cell Urine 0-1 /HPF (0-5/HPF); WBC Urine 1-5/HPF (0-5/HPF)
[2019-08-08] MEDS: fentaNYL 100 MCG/2 ML INJ IV (01:16)
[2019-08-08] MEDS: PANTOPRAZOLE 40 MG VIAL IV ×2 (01:18→21:05)
[2019-08-08] MEDS: levoFLOXacin 750 MG/150 ML PIGGYBACK 100 MG IV (01:24)
[2019-08-08 01:31] LABS: Ethanol (ETOH) < 10 mg/dL
[2019-08-08] MEDS: PANTOPRAZOLE 80 MG in SODIUM CHLORIDE 0.9% 100 ML 10 ML IV (01:43)
[2019-08-08] MEDS: MORPHINE 2 MG/ML INJ IV ×4 (02:37→22:29)
--- NOTE | 2019-08-08 03:23 | PC.ADMIT ---
Addendum entered by Sommer Lundberg R.N. 08/08/19 06:34: Medicated for 7/10 left LE pain/spasms with Morphine. Patient very needy; frequently honing machine set up operator tool light asking for HOB or foot of bed to be raised or lowered despite repeated instructions on use of bed controls. Swearing frequently; when confronted with behavior apologizes. Original Note: Patient admitted around 0210 from ED per stretcher and transferred into bed with slider board and 4 assists. Patient is oriented except to date (mo/day/year). 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 Breath sounds CTA but did have some audible expiratory wheezes and states he can't breathe when HOB is down; RA sat is 98%. HRR. Denies nausea. BT present and abdomen is soft. Voiding per urinal; denies dysuria but complains of frequency/urgency. Is able to assist in repositioning. States at home he walks minimally but when he does uses a walker or cane. Is weak in all extremities. Noted to be red/moist in bilateral groins although skin is intact. Left LE is erythemic with scaly skin and lower 1/2 of leg appears to have superficial skin off with areas of weeping. Right LE is less erythemic and dry, scaly. 2+ bilateral LE edema. Having intermittent muscles twitches in left LE. 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 Complains of 7/10 pain which is generalized and chronic; medicated with Morphine. Blood infusion started upon admission (blood brought up by [facility] and infusion initiated) and is infusing without problem. Has Protonix gtt infusing as well. States he generally drinks 2 drinks daily with last drink being yesterday morning; CIWA is 0. Fall risk score is high (reports falling in past 3 months) so bed alarm is activated. Oriented to call light and bed controls. Is NPO at present time; verbalizes understanding. [email or web address] Claire Avgarrick Admission Note: The patient,Cristóbal Tubbs,68 y/o, was given written information regarding hospital policies, unit procedures and contact persons. Patient's smoking status: Former smoker. Vital Signs - 8 hr 08/07/19 23:30 08/08/19 00:47 08/08/19 01:50 Temperature 99.1 F 99.1 F Pulse Rate 88 68 89 Respiratory Rate 32 H 18 18 Blood Pressure 148/64 H Blood Pressure [Left Arm] 123/59 L 147/64 H Pulse Oximetry 95 95 96 08/08/19 01:56 08/08/19 02:15 08/08/19 02:20 Temperature 98 F 98.0 F Pulse Rate 95 H 89 89 Respiratory Rate 16 18 18 Blood Pressure 147/64 H 137/69 137/69 Blood Pressure [Left Arm] Pulse Oximetry 98 98
[2019-08-08] MEDS: FUROSEMIDE 100 MG/10 ML VIAL 60 MG IV (04:52)
[2019-08-08] MEDS: SODIUM CHLORIDE 0.9% FLUSH 10 ML IV ×2 (04:53→06:29)
[2019-08-08] MEDS: LORazepam 2 MG/ML INJ IV (08:57)
[2019-08-08] MEDS: THIAMINE 100 MG TABLET PO (08:57)
[2019-08-08] MEDS: FOLIC ACID 1 MG TABLET PO (08:57)
[2019-08-08] MEDS: MULTIVITAMIN 1 TABLET 1 TAB PO (08:57)
[2019-08-08 09:28] LABS: Hematocrit 22.2 % (41-53); Hemoglobin 7.8 g/dL (13.5-17.5)
[2019-08-08 09:38] LABS: BUN Creatinine Ratio 25.2 (6-22); Blood Urea Nitrogen 56 mg/dL (9-20); Calcium 8.5 mg/dL (8.4-10.2); Carbon Dioxide 25 mmol/L (22-32); Chloride 101 mmol/L (98-107); Estimated Glomerular Filt Rate 29.7 mL/min (>60); Glucose 160 mg/dL (80-110); HEMOLYSIS < 15 (0-50); Potassium 4.3 mmol/L (3.4-5.1); Sodium 134 mmol/L (137-145)
--- NOTE | 2019-08-08 10:29 | PC.NURSE ---
Assess- Patient rude, agitated, and yelling at nurses. This RN stepped out of room when patient was escalating and went back to check on him 15 minutes later. His complaints were pain to his left lower shing. Patient was medicated with IV Morphine at 0630 and complaining of pain at 0800. He does have an open and wheeping wound to his l.lower ken. This is open to air now with a chux pad in place. He has good pedal pulses x2, and r.ken is just dry and discolored with brown spotting. Patient has frequently been on his light asking the same questions over and over. He is sometimes on his light 2 minutes from previously calling. Explained to him that he needs to let staff know what he needs before putting his light on again so frequent. Patient does drink alcohol he states to numb his leg pain, as he put it. He states that he drinks 2 drinks per day. The behavior that he is indicating, would seem that he may drink more but does not want to tell the truth. His first CIWA score was an 8 and 1mg of iv ativan administered, just did a second CIWA score and this was a 1. So the ativan has been effective. Patient is NPO for a surgical consult and he also has a wound consult scheduled. Unsure of those times at present. Patient is comfortable and denies pain.
[2019-08-08] MEDS: INSULIN ASPART 100 UNIT/ML INSULN PEN SUBCUT ×2 (12:21→16:35)
--- NOTE | 2019-08-08 13:05 | PM.CN ---
History of Present Illness Consult details Date Patient Seen: 08/08/19 Time Patient Seen: 11:15 Chief complaint: UTI Reason for consult: Wound dressings Requesting provider: Shawna Santoyo Narrative: 68-year-old alcoholic male with LLE venous insufficiency ulcerations and well-controlled type 2 diabetes. He is s/p EVLA of the L GSV on 05/08/19. After the procedure, he had been healing well, until his care became complicated by his resumption of alcohol intake, non-adherence with administration of furosemide due to avoidance of nocturia, and non-compliance with his Velcro compression garments. His weight has increased at least 30# since 04/26/19 and this has been accompanied by a progressive increase in active serous drainage from the leg. On 07/21, I asked him to contact his PCP to discuss furosemide dose adjustments and to keep a diary of his daily weights and furosemide dose. He completed neither recommendation. It appears he is currently taking furosemide 80 mg daily. He presented to the ED last night after his family became concerned that he was becoming increasingly weak over the past 2 weeks. ED physician found his LLE dressings to be completely soaked and dripping with fluid. When removed, he had findings consistent with cellulitis and antibiotics are on-board. Meds Home Medications and Allergies Home Medications Medication Instructions Recorded Confirmed Type citalopram 20 mg PO DAILY 12/25/17 03/10/19 History glimepiride 1 mg PO DAILY 03/22/18 03/10/19 History doxazosin 4 mg PO BEDTIME 06/07/18 03/10/19 History furosemide 60 mg PO DAILY 09/27/18 03/10/19 History duloxetine 60 mg PO BID 09/28/18 03/10/19 History polyethylene glycol 3350 17 g PO DAILY PRN 09/28/18 03/10/19 History lorazepam 0.5 mg PO TID PRN 11/12/18 03/10/19 History silver sulfadiazine [SSD] 1 applic TOPICAL TID 11/12/18 03/10/19 History lidocaine 1 patch TOP DAILY #30 each 12/19/18 03/10/19 Rx melatonin 10 mg PO BEDTIME PRN 03/10/19 03/10/19 History pantoprazole 20 mg PO DAILY 03/10/19 03/10/19 History cephalexin 500 mg PO TID #30 cap 06/14/19 Rx Allergies Allergy/AdvReac Type Severity Reaction Status Date / Time latex Allergy Mild IRRITATION Verified 06/13/19 16:39 carisoprodol [From Soma] Allergy Verified 06/13/19 16:39 hydromorphone Allergy Verified 06/13/19 16:39 Sulfa (Sulfonamide AdvReac Mild N&V 1HOUR Verified 06/13/19 16:39 Antibiotics) AFTER RX, THINKS IT IS RELATED Review of Systems Review of Systems ROS: Yes All systems reviewed with the patient and are negative except as otherwise documented Constitutional Constitutional: Reports frequent falls ENT Ears, Nose, Mouth, and Throat: Yes hearing loss Cardiovascular Cardiovascular: Reports orthopnea Genitourinary Genitourinary: Reports nocturia and Reports urinary frequency Musculoskeletal Musculoskeletal: Reports back pain Neurologic Neurologic: Reports frequent falls Exam Vital Signs (past 8 hours): - 08/08/19 05:15 08/08/19 05:30 08/08/19 08:00 Temperature 98.2 F 98.2 F 98.7 F Pulse Rate 87 86 82 Respiratory Rate 14 14 18 Blood Pressure 111/50 L 121/55 L 138/60 Pulse Oximetry 97 08/08/19 12:00 08/08/19 12:24 Temperature 98.1 F Pulse Rate 82 82 Respiratory Rate 18 18 Blood Pressure 137/58 L 138/60 Pulse Oximetry 97 Oxygen Delivery Method Room Air Oxygen Flow Rate 0 Const General: cooperative, well developed, well groomed and anxious Nutritional Appearance: obese HENMT Ears: hearing grossly impaired on the left Eyes Sclera: sclerae normal Resp Effort & Inspection: normal respiratory effort and able to speak in complete sentences Cardio Rate: regular rate Rhythm: regular rhythm Pulses: posterior tibial pulses present (Doppler) on the left and dorsalis pedis present (Doppler) on the left Other: + BLE edema Skin General: erythema (LLE below knee), No induration and hot (LLE below knee) Wounds: wounds noted (Scattered, small, superficial openings LLE distal to knee.) Other: Copious active serous drainage Neuro General: patient alert, patient awake, patient oriented x3, moves all extremities, no focal motor deficits and CN's II-XI intact bilaterally Other: + LOPS bilateral feet. Extrem Other: No cyanosis or clubbing. No prior amputations. Objective Labs Result Diagrams: 08/08/19 09:09 08/08/19 09:09 Labs: Laboratory Results - last 24 hr 08/08/19 08/08/19 08/08/19 00:00 00:00 00:00 WBC 9.4 RBC 1.96 L Hgb 6.2 L* Hct 18.2 L* MCV 92.7 MCH 31.6 MCHC 34.1 RDW 14.4 Plt Count 221 Neut % (Auto) 80.8 H Lymph % (Auto) 7.8 L [place] % (Auto) 8.7 Eos % (Auto) 2.3 Baso % (Auto) 0.4 Neut # (Auto) 7600 H Lymph # (Auto) 700 L [place] # (Auto) 800 Eos # (Auto) 200 Baso # (Auto) 0 Sodium 132 L Potassium 4.4 Chloride 98 Carbon Dioxide 27 BUN 56 H Creatinine 2.28 H Estimated GFR 28.8 L BUN/Creatinine Ratio 24.6 H Glucose 214 H Lactate Calcium 8.4 Magnesium 2.2 Total Bilirubin 0.3 AST 18 ALT 9 Alkaline Phosphatase 88 Troponin I 0.014 Total Protein 6.6 Albumin 3.5 Globulin 3.1 Albumin/Globulin Ratio 1.1 Procalcitonin 0.12 Urine Color Urine Appearance Urine pH Ur Specific [place] Urine Protein Urine Glucose (UA) Urine Ketones Urine Occult Blood Urine Nitrate Urine Bilirubin Urine Urobilinogen Ur Leukocyte Esterase Urine RBC Urine WBC Ur Squamous Epith Cells Urine Bacteria Ur Culture Indicated? Ethyl Alcohol Blood Type Antibody Screen Crossmatch 08/08/19 08/08/19 08/08/19 00:00 00:00 00:00 WBC RBC Hgb Hct MCV MCH MCHC RDW Plt Count Neut % (Auto) Lymph % (Auto) [place] % (Auto) Eos % (Auto) Baso % (Auto) Neut # (Auto) Lymph # (Auto) [place] # (Auto) Eos # (Auto) Baso # (Auto) Sodium Potassium Chloride Carbon Dioxide BUN Creatinine Estimated GFR BUN/Creatinine Ratio Glucose Lactate 1.2 Calcium Magnesium Total Bilirubin AST ALT Alkaline Phosphatase Troponin I Total Protein Albumin Globulin Albumin/Globulin Ratio Procalcitonin Urine Color Yellow Urine Appearance Clear Urine pH 5.0 Ur Specific [place] <=1.005 Urine Protein Trace H Urine Glucose (UA) Negative Urine Ketones Negative Urine Occult Blood Negative Urine Nitrate Negative Urine Bilirubin Negative Urine Urobilinogen 0.2 Ur Leukocyte Esterase 1+ H Urine RBC None seen Urine WBC 1-5/hpf Ur Squamous Epith Cells 0-1 /hpf Urine Bacteria Occasional (0-1) D Ur Culture Indicated? Specimen cultured Ethyl Alcohol < 10 Blood Type Antibody Screen Crossmatch 08/08/19 08/08/19 08/08/19 00:41 09:09 09:09 WBC RBC Hgb 7.8 L Hct 22.2 L MCV MCH MCHC RDW Plt Count Neut % (Auto) Lymph % (Auto) [place] % (Auto) Eos % (Auto) Baso % (Auto) Neut # (Auto) Lymph # (Auto) [place] # (Auto) Eos # (Auto) Baso # (Auto) Sodium 134 L Potassium 4.3 Chloride 101 Carbon Dioxide 25 BUN 56 H Creatinine 2.22 H Estimated GFR 29.7 L BUN/Creatinine Ratio 25.2 H Glucose 160 H Lactate Calcium 8.5 Magnesium Total Bilirubin AST ALT Alkaline Phosphatase Troponin I Total Protein Albumin Globulin Albumin/Globulin Ratio Procalcitonin Urine Color Urine Appearance Urine pH Ur Specific [place] Urine Protein Urine Glucose (UA) Urine Ketones Urine Occult Blood Urine Nitrate Urine Bilirubin Urine Urobilinogen Ur Leukocyte Esterase Urine RBC Urine WBC Ur Squamous Epith Cells Urine Bacteria Ur Culture Indicated? Ethyl Alcohol Blood Type O Positive Antibody Screen Negative Crossmatch See Detail Assessment & Plan Assessment & Plan narrative: Assessment: Left leg with non-healing venous leg ulcerations in the context of excessive drainage due to fluid overload. Fluid overload 2/2 underdiuresis due to patient non-adherence with furosemide dosing. Secondary cellulitis of the LLE. Plan: Appropriate absorptive dressings ordered. He would benefit from fluid balance management as an inpatient, since he has failed attempts at home. He is likely to need close PCP follow up after discharge for continued therapy adjustments to maintain proper fluid balance. Expect his wounds to heal in quick order once his fluid status comes under improved control. Antibiotics for cellulitis per hospital team. Anticipate restart LE compression in outpatient wound care clinic after discharge.
[2019-08-08] MEDS: CITALOPRAM 20 MG TABLET PO (13:34)
[2019-08-08] MEDS: DULOXETINE 30 MG CAPSULE 60 MG PO (13:34)
[2019-08-08] MEDS: HYDROCODONE/ACET 5/325 TABLET 2 TAB PO (17:54)
--- NOTE | 2019-08-08 17:55 | PM.HP.1 ---
History of Present Illness History of Present Illness Date Patient Seen: 08/08/19 Time Patient Seen: 08:00 Chief complaint: UTI Narrative: This 68-year-old chronically ill male who lives in in a [place] in independent care with family presents to the emergency room brought by family for concerns of possible recurrent urinary tract infection. Patient has a very complicated past medical history in usually cared for by Dr. Quintana. He has had a history of lower extremity edema with chronic wounds and is seen the wound care clinic. Workup in the emergency department was remarkable for urine suspicious of urinary tract infection with concerns for worsening lower extremity edema and cellulitis as well as probable GI bleed. However patient was guaiac negative in the ER and his hematocrit really had only dropped from 23 as an outpatient on 07/23 17 when he was in the emergency department. He was transfused 2 units of blood was given IV Levaquin and was admitted to the hospital. Due to history of alcohol abuse and previous severe withdrawal he was placed on the CIWA protocol. He has been continually complaining of pain in his left lower leg as well as his left shoulder and requesting pain medications. He was given IV morphine without improvement. Past medical history: 1. Degenerative joint disease with previous surgeries on his spinal cord with history of fractures with chronic pain issues 2. Alcohol abuse, current 3. Narcotic dependent 4. Duodenal ulcer 2017 5. Gout 6. Recurrent UTI 7. Hypertension 8. Type 2 diabetes with previous episodes of hypoglycemia 9. Renal failure 10. Chronic anemia thought to be secondary to chronic disease as well as previous GI bleed Current medications glimepiride 1 mg daily, doxazosin 4 mg at bedtime, Duoloxitane 60 mg daily, citalopram 20 mg daily, lorazepam as needed, pantoprazole 40 mg daily, furosemide 80 mg daily, hydrocodone 1 tablet daily Allergies sulfa Past surgical history C2-T2 posterior spinal instrumentation and fusion 03/23/2013 C3-C7 laminectomy For 18 14 T10-T12 posterior spinal instrumentation Family history: No family history of bladder problems. No family history of chronic wounds. Social history: Patient is he has 3 children. He is currently reliving with family. 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 [employer] Health-related behavior: He drinks alcohol but says he has it under control is not drinking excessively He does not smoke cigarettes She does not use illicit drugs Review of systems: Negative for any bright red blood per rectum or black tarry stools Negative for any change in his bowel movement Negative for any nausea or vomiting Negative for any headache Negative for any chest pain or shortness of breath Patient does have neck pain and left shoulder pain in his left leg has been weeping and is painful he is not sure how long it has been weeping Patient History Medical History Alcoholism (Chronic) Anemia associated with chronic renal failure (Chronic) Cellulitis of lower leg (Chronic) Chronic kidney disease, stage 4 (severe) (Chronic) Chronic pain (Chronic) Depression (Chronic) Diabetes type 2, controlled (Chronic) Duodenal ulcer (Acute) GI bleed (Resolved) Gout, arthropathy (Chronic) History of cervical fracture (Resolved) Hyperparathyroidism (Chronic) Hypertension (Chronic) Left leg pain (Chronic) Symptomatic anemia (Chronic) Surgical History H/O cervical spine surgery (Acute) History of colectomy (Resolved) History of fusion of cervical spine (Chronic) Family & Social History Social History: household members friend(s),other Prior Living Arrangements Apartment/Condo Safety & Behavioral: Feels Safe in Current Yes Environment Been Physically Hurt or No Threatened By a Person Suicidal Ideation Description None Tobacco & Substance use: Tobacco type cigarettes Smoking Status Former smoker alcohol intake current alcohol intake frequency 0-2 drinks per day Substance Use Type does not use Meds Home Medications and Allergies Home Medications Medication Instructions Recorded Confirmed Type citalopram 20 mg PO DAILY 12/25/17 08/08/19 History glimepiride 1 mg PO DAILY 03/22/18 08/08/19 History doxazosin 4 mg PO BEDTIME 06/07/18 08/08/19 History furosemide 80 mg PO DAILY 09/27/18 08/08/19 History duloxetine 60 mg PO BID 09/28/18 08/08/19 History polyethylene glycol 3350 17 g PO DAILY PRN 09/28/18 08/08/19 History lorazepam 0.5 mg PO TID PRN 11/12/18 08/08/19 History silver sulfadiazine [SSD] 1 applic TOPICAL TID 11/12/18 03/10/19 History lidocaine 1 patch TOP DAILY #30 each 12/19/18 08/08/19 Rx melatonin 10 mg PO BEDTIME PRN 03/10/19 03/10/19 History cephalexin 500 mg PO TID #30 cap 06/14/19 08/08/19 Rx hydrocodone-acetaminophen 1 tab PO DAILY 08/08/19 08/08/19 History pantoprazole 40 mg PO DAILY 08/08/19 08/08/19 History Allergies Allergy/AdvReac Type Severity Reaction Status Date / Time latex Allergy Mild IRRITATION Verified 06/13/19 16:39 carisoprodol [From Soma] Allergy Verified 06/13/19 16:39 hydromorphone Allergy Verified 06/13/19 16:39 Sulfa (Sulfonamide AdvReac Mild N&V 1HOUR Verified 06/13/19 16:39 Antibiotics) AFTER RX, THINKS IT IS RELATED Exam Vital Signs (past 8 hours): - 08/08/19 12:00 08/08/19 12:24 08/08/19 15:54 Temperature 98.1 F 99.1 F Pulse Rate 82 82 84 Respiratory Rate 18 18 20 Blood Pressure 137/58 L 138/60 155/80 H Pulse Oximetry 97 93 Oxygen Delivery Method Room Air Oxygen Flow Rate 0 Narrative Exam Narrative: Patient is alert and oriented x3 and continually asking for pain medications during my interview. Afebrile vital signs are stable HEENT: Shows mucous [place]olin membranes moist and pink no lesions Neck: Supple without adenopathy or thyromegaly, no bruit or jugular venous distension Chest: Clear to auscultation without wheezes rhonchi or crackles Cor: Regular rate and rhythm with distant S1-S2 Abdomen: Positive bowel sounds, soft, nontender, nondistended, morbidly obese Extremities: 2+ pitting edema with diffuse venous stasis changes with losing erythema exfoliating skin but no evidence of necrosis. Pulses are intact Neurologic exam is nonfocal Tenderness to palpation over the left lateral trapezius and neck as well as anterior deltoid Objective Labs Result Diagrams: 08/08/19 09:09 08/08/19 09:09 Labs: Laboratory Results - last 24 hr 08/08/19 08/08/19 08/08/19 00:00 00:00 00:00 WBC 9.4 RBC 1.96 L Hgb 6.2 L* Hct 18.2 L* MCV 92.7 MCH 31.6 MCHC 34.1 RDW 14.4 Plt Count 221 Neut % (Auto) 80.8 H Lymph % (Auto) 7.8 L [place]cd[place] % (Auto) 8.7 Eos % (Auto) 2.3 Baso % (Auto) 0.4 Neut # (Auto) 7600 H Lymph # (Auto) 700 L [place] # (Auto) 800 Eos # (Auto) 200 Baso # (Auto) 0 Sodium 132 L Potassium 4.4 Chloride 98 Carbon Dioxide 27 BUN 56 H Creatinine 2.28 H Estimated GFR 28.8 L BUN/Creatinine Ratio 24.6 H Glucose 214 H Lactate Calcium 8.4 Magnesium 2.2 Total Bilirubin 0.3 AST 18 ALT 9 Alkaline Phosphatase 88 Troponin I 0.014 Total Protein 6.6 Albumin 3.5 Globulin 3.1 Albumin/Globulin Ratio 1.1 Procalcitonin 0.12 Urine Color Urine Appearance Urine pH Ur Specific Crawford Urine Protein Urine Glucose (UA) Urine Ketones Urine Occult Blood Urine Nitrate Urine Bilirubin Urine Urobilinogen Ur Leukocyte Esterase Urine RBC Urine WBC Ur Squamous Epith Cells Urine Bacteria Ur Culture Indicated? Ethyl Alcohol Blood Type Antibody Screen Crossmatch 08/08/19 08/08/19 08/08/19 00:00 00:00 00:00 WBC RBC Hgb Hct MCV MCH MCHC RDW Plt Count Neut % (Auto) Lymph % (Auto) [place]cd[place] % (Auto) Eos % (Auto) Baso % (Auto) Neut # (Auto) Lymph # (Auto) Mcd[place]ough # (Auto) Eos # (Auto) Baso # (Auto) Sodium Potassium Chloride Carbon Dioxide BUN Creatinine Estimated GFR BUN/Creatinine Ratio Glucose Lactate 1.2 Calcium Magnesium Total Bilirubin AST ALT Alkaline Phosphatase Troponin I Total Protein Albumin Globulin Albumin/Globulin Ratio Procalcitonin Urine Color Yellow Urine Appearance Clear Urine pH 5.0 Ur Specific Crawford <=1.005 Urine Protein Trace H Urine Glucose (UA) Negative Urine Ketones Negative Urine Occult Blood Negative Urine Nitrate Negative Urine Bilirubin Negative Urine Urobilinogen 0.2 Ur Leukocyte Esterase 1+ H Urine RBC None seen Urine WBC 1-5/hpf Ur Squamous Epith Cells 0-1 /hpf Urine Bacteria Occasional (0-1) D Ur Culture Indicated? Specimen cultured Ethyl Alcohol < 10 Blood Type Antibody Screen Crossmatch 08/08/19 08/08/19 08/08/19 00:41 09:09 09:09 WBC RBC Hgb 7.8 L Hct 22.2 L MCV MCH MCHC RDW Plt Count Neut % (Auto) Lymph % (Auto) Mcd[place]ough % (Auto) Eos % (Auto) Baso % (Auto) Neut # (Auto) Lymph # (Auto) Mcdonough # (Auto) Eos # (Auto) Baso # (Auto) Sodium 134 L Potassium 4.3 Chloride 101 Carbon Dioxide 25 BUN 56 H Creatinine 2.22 H Estimated GFR 29.7 L BUN/Creatinine Ratio 25.2 H Glucose 160 H Lactate Calcium 8.5 Magnesium Total Bilirubin AST ALT Alkaline Phosphatase Troponin I Total Protein Albumin Globulin Albumin/Globulin Ratio Procalcitonin Urine Color Urine Appearance Urine pH Ur Specific Crawford Urine Protein Urine Glucose (UA) Urine Ketones Urine Occult Blood Urine Nitrate Urine Bilirubin Urine Urobilinogen Ur Leukocyte Esterase Urine RBC Urine WBC Ur Squamous Epith Cells Urine Bacteria Ur Culture Indicated? Ethyl Alcohol Blood Type O Positive Antibody Screen Negative Crossmatch See Detail Assessment & Plan Assessment & Plan narrative: 68-year-old male admitted for acute anemia thought to be secondary to GI bleed Assessment 1. Anemia status post 2 units packed red blood cells with improvement in his hemoglobin hematocrit. No evidence of acute blood loss and in fact his stool guaiac was negative. I suspect that this is just a worsening of his chronic anemia but he is at high risk for possible GI bleed. I discussed this briefly with Dr. Shaw and at this time I do not think she needs to see him but she is willing to should it become more obvious that this is acute blood loss from his intestines. We will guaiac stools. We will continue on the pantoprazole. We will stop the aspirin which he has been taking. We will provide hydrocodone for pain but this will be a brief limited amount. Assessment 2. Probable UTI Plan: Will treat with Levaquin and wait for cultures Assessment 3. Chronic venous stasis changes with chronic wound left lower extremity Plan: Appreciate wound care consultation. Very difficult case because of his obesity and renal failure and anemia and fluid overload. We will continue outpatient Lasix and monitor as we elevate his legs and he will then need compression once we cleaned this up at this point we will continue on the Levaquin IV. We did not do wound culture because there were not any available areas to culture. He did not have a leukocytosis and will be hard to monitor clinical response due to his fluid overload and the chronicity of this wound. Assessment 4. Acute on chronic renal failure really overall stable Plan at this point we will continue to monitor closely. We will diurese carefully. Will give Levaquin at pharmacy dosing from renal failure Assessment 5. Histor of duodenal ulcer with no evidence of acute exacerbation Plan: Continue on Protonix. Continue off NSAIDs. Will continue to monitor and will guaiac stools Assessment 6. Alcohol abuse with history of acute delirium tremens Plan: [facility] protocol. Serum alcohol level was negative on admit Assessment 7. Chronic pain issues Plan: At this time will provide hydrocodone as needed for pain Assessment 8. Type 2 diabetes Plan: Will hold glimepiride. Will monitor blood sugars. Will provide sliding scale insulin. Code status is full code
[2019-08-08] MEDS: CEFTRIAXONE 1 GM/50 ML FROZ.PIGGY IV (18:32)
[2019-08-08] MEDS: DOXAZOSIN 4 MG TABLET PO (21:05)
[2019-08-09] VITALS (13 sets, daily range): BP systolic 121–153; BP diastolic 59–83; PULSE 75–91; RESP 14–20; TEMP 36.4–37.1; O2SAT 94–97
--- NOTE | 2019-08-09 01:39 | PC.NURSE ---
Addendum entered by Sommer Lundberg R.N. 08/09/19 06:16: States back pain is getting worse and now severity is 5/10; medicated with Vicodin per patient request rather than IV Morphine. Addendum entered by Sommer Lundberg R.N. 08/09/19 05:47: Slept most of shift. Pleasant and cooperative this shift. CIWA is 0. Denies leg pain but states has chronic back pain and rates pain as 3/10 but is tolerable and declines pain medication. Original Note: Patient has been asleep since start of shift so not awakened earlier. Is oriented to person and place but not on date or why he is in the hospital. Is deaf in left ear. Breath sounds CTA with RA sat of 97% but has some audible expiratory wheezing and unable to lie flat as states then he can't breathe. HRR. Denies nausea. BT present and abdomen is soft. Voiding per urinal; denies dysuria but does have some frequency. Dressing to left LE is CDI; leg is elevated on pillows. Other skin unchanged from admission. States pain is better controlled tonight and rates severity as 5/10 but states it is tolerable and was actually falling asleep mid sentence. CIWA score is 0. Seizure pads in place. Assisted to reposition q2h when awake.
[2019-08-09] MEDS: HYDROCODONE/ACET 5/325 TABLET 2 TAB PO ×4 (06:15→23:42)
[2019-08-09 06:24] LABS: Add Manual Diff / Slide Review NO; Basophils Absolute Auto 0 /uL (0-100); Basophils Percent Auto 0.4 % (0-2); Eosinophils Absolute Auto 200 /uL (0-450); Eosinophils Percent Auto 1.9 % (2-4); Hematocrit 21.4 % (41-53); Hemoglobin 7.5 g/dL (13.5-17.5); Lymphocytes Absolute Auto 700 /uL (1100-4500); Lymphocytes Percent Auto 8.8 % (25-40); Mean Corpuscular HGB Conc 35.2 % (30-36); Mean Corpuscular Hemoglobin 33.1 PG (26-34); Mean Corpuscular Volume 93.9 fL (80-100); Monocytes Absolute Auto 800 /uL (0-900); Monocytes Percent Auto 10.1 % (3-14); Neutrophils Absolute Auto 6400 /uL (1500-7000); Neutrophils Percent Auto 78.8 % (50-75); Platelet Count 201 X10^3/uL (150-400); Red Blood Cell Count 2.28 X10^6/uL (4.5-5.9); Red Cell Distribution Width 14.5 % (11.6-14.8); White Blood Cell Count 8.1 X10^3/uL (4.5-11.0)
[2019-08-09 06:27] LABS: Alanine Aminotransferase 8 IU/L (<50); Albumin 3.4 g/dL (3.5-5.0); Alkaline Phosphatase 91 U/L (38-126); Aspartate Aminotransferase 21 IU/L (17-59); BUN Creatinine Ratio 21.6 (6-22); Bilirubin Total 0.5 mg/dL (0.2-1.3); Blood Urea Nitrogen 53 mg/dL (9-20); Calcium 8.2 mg/dL (8.4-10.2); Carbon Dioxide 27 mmol/L (22-32); Chloride 100 mmol/L (98-107); Estimated Glomerular Filt Rate 26.5 mL/min (>60); Globulin 3.3 g/dL (1.7-4.1); Glucose 165 mg/dL (80-110); HEMOLYSIS < 15 (0-50); Potassium 4.1 mmol/L (3.4-5.1); Sodium 133 mmol/L (137-145); Total Protein 6.7 g/dL (6.3-8.2)
[2019-08-09] MEDS: INSULIN ASPART 100 UNIT/ML INSULN PEN SUBCUT ×3 (08:37→17:02)
[2019-08-09] MEDS: MULTIVITAMIN 1 TABLET 1 TAB PO (08:51)
[2019-08-09] MEDS: FOLIC ACID 1 MG TABLET PO (08:51)
[2019-08-09] MEDS: CITALOPRAM 20 MG TABLET PO (08:52)
[2019-08-09] MEDS: THIAMINE 100 MG TABLET PO (08:52)
[2019-08-09] MEDS: DULOXETINE 30 MG CAPSULE 60 MG PO (08:52)
[2019-08-09] MEDS: FUROSEMIDE 40 MG TABLET 80 MG PO (08:52)
[2019-08-09] MEDS: SODIUM CHLORIDE 0.9% FLUSH 10 ML IV ×2 (08:53→20:41)
[2019-08-09 10:22] LABS: Add Manual Diff / Slide Review NO; Basophils Absolute Auto 0 /uL (0-100); Basophils Percent Auto 0.5 % (0-2); Eosinophils Absolute Auto 200 /uL (0-450); Eosinophils Percent Auto 2.4 % (2-4); Hematocrit 21.7 % (41-53); Hemoglobin 7.5 g/dL (13.5-17.5); Lymphocytes Absolute Auto 700 /uL (1100-4500); Lymphocytes Percent Auto 8.2 % (25-40); Mean Corpuscular HGB Conc 34.5 % (30-36); Mean Corpuscular Hemoglobin 32.4 PG (26-34); Mean Corpuscular Volume 93.8 fL (80-100); Monocytes Absolute Auto 800 /uL (0-900); Monocytes Percent Auto 9.7 % (3-14); Neutrophils Absolute Auto 6400 /uL (1500-7000); Neutrophils Percent Auto 79.2 % (50-75); Platelet Count 208 X10^3/uL (150-400); Red Blood Cell Count 2.31 X10^6/uL (4.5-5.9); Red Cell Distribution Width 14.3 % (11.6-14.8); White Blood Cell Count 8.1 X10^3/uL (4.5-11.0)
[2019-08-09 10:36] LABS: BUN Creatinine Ratio 22.6 (6-22); Blood Urea Nitrogen 55 mg/dL (9-20); Calcium 8.3 mg/dL (8.4-10.2); Carbon Dioxide 26 mmol/L (22-32); Chloride 99 mmol/L (98-107); Estimated Glomerular Filt Rate 26.8 mL/min (>60); Glucose 160 mg/dL (80-110); HEMOLYSIS < 15 (0-50); Potassium 4.4 mmol/L (3.4-5.1); Sodium 133 mmol/L (137-145)
--- NOTE | 2019-08-09 12:12 | PT-IP ANOTE ---
Pt is receiving transfusion for 2 units d/t earlier CBC (RBC: 2.31L, Hgb: 7.5, Hct :21.7). On hold for PT until tomorrow.
[2019-08-09] MEDS: PIPERACILLIN-TAZO 2.25 GM/50 ML FROZ.PIGGY IV ×3 (13:01→23:45)
--- NOTE | 2019-08-09 13:16 | OT.IPNOTE ---
Pt getting transfusion today, therefore to check on OT eval for tomorrow.
--- NOTE | 2019-08-09 13:20 | P.PN_ITS ---
Subjective Subjective Date Patient Seen: 08/09/19 Time Patient Seen: 13:21 Interval history: Patient feeling better today. Still tired. Has not been up moving around much. States that he is only drinking 2 beers a day. Apparently that is not what family would say. Otherwise no significant new changes or complaints. Exam Vital Signs (past 8 hours): - 08/09/19 05:35 08/09/19 08:50 08/09/19 11:29 Temperature 98.8 F 97.6 F 97.8 F Pulse Rate 82 77 75 Respiratory Rate 20 18 16 Blood Pressure 136/83 127/63 133/73 Pulse Oximetry 96 96 08/09/19 12:05 Temperature 97.9 F Pulse Rate 81 Respiratory Rate 14 Blood Pressure 134/64 Pulse Oximetry Oxygen Delivery Method Room Air Oxygen Flow Rate 0 Narrative Exam Narrative: Alert smiling obese male sitting in bed no acute distress Mucous membranes moist. Neck supple without adenopathy. Lungs clear. Heart regular rate and rhythm without murmurs clicks rubs or gallops. Abdomen soft positive bowel sounds nontender. Extremities. Left leg shows some erythema but mostly in bandage. No obvious wounds available for evaluation. Moderate edema. Objective Labs Result Diagrams: 08/09/19 10:10 08/09/19 10:10 Labs: Laboratory Results - last 24 hr 08/08/19 08/09/19 08/09/19 00:41 05:34 05:34 WBC 8.1 RBC 2.28 L Hgb 7.5 L Hct 21.4 L MCV 93.9 MCH 33.1 MCHC 35.2 RDW 14.5 Plt Count 201 Neut % (Auto) 78.8 H Lymph % (Auto) 8.8 L [place] % (Auto) 10.1 Eos % (Auto) 1.9 L Baso % (Auto) 0.4 Neut # (Auto) 6400 Lymph # (Auto) 700 L [place] # (Auto) 800 Eos # (Auto) 200 Baso # (Auto) 0 Sodium 133 L Potassium 4.1 Chloride 100 Carbon Dioxide 27 BUN 53 H Creatinine 2.45 H Estimated GFR 26.5 L BUN/Creatinine Ratio 21.6 Glucose 165 H Calcium 8.2 L Total Bilirubin 0.5 AST 21 ALT 8 Alkaline Phosphatase 91 Total Protein 6.7 Albumin 3.4 L Globulin 3.3 Albumin/Globulin Ratio 1.0 Blood Type O Positive Antibody Screen Negative Crossmatch See Detail 08/09/19 08/09/19 10:10 10:10 WBC 8.1 RBC 2.31 L Hgb 7.5 L Hct 21.7 L MCV 93.8 MCH 32.4 MCHC 34.5 RDW 14.3 Plt Count 208 Neut % (Auto) 79.2 H Lymph % (Auto) 8.2 L [place] % (Auto) 9.7 Eos % (Auto) 2.4 Baso % (Auto) 0.5 Neut # (Auto) 6400 Lymph # (Auto) 700 L [place] # (Auto) 800 Eos # (Auto) 200 Baso # (Auto) 0 Sodium 133 L Potassium 4.4 Chloride 99 Carbon Dioxide 26 BUN 55 H Creatinine 2.43 H Estimated GFR 26.8 L BUN/Creatinine Ratio 22.6 H Glucose 160 H Calcium 8.3 L Total Bilirubin AST ALT Alkaline Phosphatase Total Protein Albumin Globulin Albumin/Globulin Ratio Blood Type Antibody Screen Crossmatch Assessment & Plan Assessment & Plan narrative: Assessment 1 anemia does not appear to be a GI bleed but only got a stress small bump with 2 units. Will replace with 2 more units. Combination of risk because of his drinking and poor self care and for help with oxygenation to left leg wound. At this point will stay off aspirin. Hopefully home in the next day or 2. UTI. Culture negative. Discontinue antibiotics for that. Chronic venous stasis change with chronic wound left leg. Appreciate wound care consultation. Will continue antibiotics. Continue care. Would really like long term placement for help with healing due to patient's inability to self- care but patient is refusing that. Will do our best to get him as good as possible for he leaves and then hope we can get some time before each returns. Discussed with patient. Renal failure. Stable. Alcohol abuse. Prior biggest issue. Patient is not currently looking like he is going to withdraw. Has had significant withdrawal in the past. Not interested in quitting we had this discussion today. History of duodenal ulcer. Off aspirin on Protonix. Will follow. Pain issue. Continue hydrocodone will discontinue morphine today. Type 2 diabetes will cover with sliding scale. Code status full Disposition. Would hope that we can get him discharge in the next couple days. Really needs to be probably in long term care until leg is better healed but that probably isn't going to happen. And will have to do our best. Due to the fact he is not going to quit drinking it appears as if he would be a significant issue with recurrence which I expect [place]. No other change. 40 minutes spent coordination care and direct interaction with him.
--- NOTE | 2019-08-09 14:33 | CM.IDA ---
Initial DCP Assessment Note: Patient is a 68 yo male, resident of [place]. Patient has been admitted inpatient for UTI (resolved) and chronic left leg wound- requiring IV abx, anemia, h/o heavy ETOH use, chronic pain, Type II diabetes, and renal failure. PCP: Jim Quintana Payer: TAMIA/MARIS Reviewed chart, met w/patient and introduced role. Patient states he lives in an apt w/ a couple, they have a 6 month old. Patient calls roommate Kimber my caregiver P# [phone]. Patient explains he is mostly w/c bound but is able to take care of most ADLs independently. Patient has appreciated assist from [facility] RN/MARTIN and would like to resume this service. Patient receiving blood today so PT/OT on hold until tomorrow; SLUMS pending Questioned patient about management of his wound at home, pt presented to the ED w/wound dressing that was saturated to the point of dripping and patient states I haven't been feeling well and can't bend down. Patient denies having an alcohol problem and states he drinks 2 beers daily. Discussed SNF upon DC to assist in the management of current leg wound and other care needs and patient refused, stating he is going home w/HH upon DC. 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 Patient states his sister knows all about that and patient admits he missed a recent appt w/them because I was here (clinic?) Updated TAMARA Choi and Dr Schaefer, Olive expects patient will remain here for an additional 24-48 then DC home w/[facility] resumed. [place] from [place] at [facility]; pt is current on their service, they will need a resumption order and DC summary upon DC. Additional conversation w/patient's sister Rosa and/or dtr (DPOA?) might be helpful if patient is agreeable to this. NOELLE Stone Discharge Planning/Care Management CM Discharge Assessment Start: 08/09/19 14:29 Freq: Status: Active Protocol: Document 08/09/19 14:30 CARMITA (Rec: 08/09/19 14:33 CARMITA [id number]) Discharge Planning Assessment Assigned Oil Deliverer NOELLE Caro DPOA/Assigned Designee Name Rosa Tubbs, sister Adrien Wood, dtr Contact Information Rosa: [phone] ruddy: [phone] Advance Directives? Yes Advance Directives on File No History Provided By Patient Prior Living Arrangements Apartment/Condo Household Members friend(s),other Independent with ADL's No: mostly w/c bound Is patient alert and oriented? Yes Barriers to Discharge Yes Discharge Plan Home with Home Health Transportation Arrangement Family likely can provide transport
--- NOTE | 2019-08-09 15:11 | PT-IP ANOTE ---
checked on pt and pt still receiving blood transfusion. will f/u tomorrow
--- NOTE | 2019-08-09 15:37 | PC.NURSE ---
Patient has been appropriate this shift. BS 161 at lunch time and insulin given. First unit of blood done at 1512 and patient tolerated this well. VSS. Dressing to left leg is cdi, with some old ss drainage. He repositions himself in bed and is doing well. Appetite good. Given 2 vicodin for pain relief and helpful. Patients IVx3 wnl.
[2019-08-09] MEDS: LORazepam 2 MG/ML INJ 1 MG IV (20:36)
[2019-08-09] MEDS: DOXAZOSIN 4 MG TABLET PO (20:36)
[2019-08-09] MEDS: PANTOPRAZOLE 40 MG VIAL IV (20:37)
--- NOTE | 2019-08-09 20:51 | PC.NURSE ---
ELEVATED LEFT LEG UP ON PILLOWS. PRBCS COMPLETED.NORCO FOR LEG AND BACK PAIN,ATIVAN GIVEN FOR AGITATION.
[2019-08-10] MEDS: LORazepam 2 MG/ML INJ 1 MG IV (01:36)
[2019-08-10 05:02] VITALS: BP 147/81; PULSE 74; RESP 18; TEMP 36.2; O2SAT 93
[2019-08-10] MEDS: PIPERACILLIN/TAZO 2.25 GM in SODIUM CHLORIDE 0.9% 50 ML 100 ML IV (06:19)
[2019-08-10] MEDS: FOLIC ACID 1 MG TABLET PO (08:16)
[2019-08-10] MEDS: FUROSEMIDE 40 MG TABLET 80 MG PO (08:16)
[2019-08-10] MEDS: MULTIVITAMIN 1 TABLET 1 TAB PO (08:17)
[2019-08-10] MEDS: INSULIN ASPART 100 UNIT/ML INSULN PEN SUBCUT ×4 (08:17→20:53)
[2019-08-10] MEDS: CITALOPRAM 20 MG TABLET PO (08:17)
[2019-08-10] MEDS: THIAMINE 100 MG TABLET PO (08:18)
[2019-08-10] MEDS: DULOXETINE 30 MG CAPSULE 60 MG PO (08:18)
[2019-08-10] MEDS: SODIUM CHLORIDE 0.9% FLUSH 10 ML IV ×3 (08:18→20:53)
[2019-08-10 08:47] VITALS: BP 132/76; PULSE 72; RESP 18; TEMP 36.2; O2SAT 93
[2019-08-10 12:00] VITALS: BP 141/81; PULSE 74; RESP 18; TEMP 36.5; O2SAT 94
--- NOTE | 2019-08-10 12:12 | PT.IIE ---
Current Diagnoses Cellulitis of left lower limb (08/08/19) Surgical History (Last Reviewed 08/08/19 @ 00:48 by Sweta Garcia MD) H/O cervical spine surgery (Acute) History of colectomy (Resolved) History of fusion of cervical spine (Chronic) Medical History (Last Reviewed 08/08/19 @ 00:48 by Sweta Garcia MD) Alcoholism (Chronic) Anemia associated with chronic renal failure (Chronic) Cellulitis of lower leg (Chronic) Chronic kidney disease, stage 4 (severe) (Chronic) Chronic pain (Chronic) Depression (Chronic) Diabetes type 2, controlled (Chronic) Duodenal ulcer (Acute) GI bleed (Resolved) Gout, arthropathy (Chronic) History of cervical fracture (Resolved) Hyperparathyroidism (Chronic) Hypertension (Chronic) Left leg pain (Chronic) Symptomatic anemia (Chronic) Physical Therapy Inpatient Evaluation/Re-Eval M1 PT/OT-IP Prior Functional Status Start: 08/09/19 08:40 Freq: NEEDED Status: Active Protocol: Document 08/10/19 12:12 AB (Rec: 08/10/19 14:12 AB [id number]) Medical Review Prior Functional Status Medical History Reviewed Yes Communication able to make needs known Mobility and Gait pt stated that he is modified independent with bed mobility, transfers and has not been ambulating much; uses a manual w/c for mobility indoors and uses a 4WW for outdoor mobility if pt goes out Activities of Daily Living and IADL's has a bath aide that comes in once per week to assist him [facility] comes in to assist him 2x/week Social History Household Members friend(s),other Living Arrangements Apartment/Condo Number of Floors (Floors) One Floor Number of Stairs To Enter/Railing? ramp to enter Home Environment Standard Height Toilet,Tub/ Shower Home Equipment Four Wheel Walker,Manual Wheelchair,Tub Transfer Bench, Hand Held Shower,Grab Bars Near Toilet,Grab Bars In Shower Additional Social History Comment stated that he has renters that assists with house chores pt has an adjustable bed M2 PT-IP Current Condition Start: 08/09/19 08:40 Freq: NEEDED Status: Active Protocol: Document 08/10/19 12:12 AB (Rec: 08/10/19 14:12 AB [id number]) Physical Therapy Current Condition Current Condition Evaluation Date 08/10/19 Treatment Diagnosis UTI; GI bleed; ETOH; difficulty in walking Onset Date 08/08/19 Precautions Other Precautions falls M3 PT-IP Subjective Start: 08/09/19 08:40 Freq: NEEDED Status: Active Protocol: Document 08/10/19 12:12 AB (Rec: 08/10/19 14:12 AB [id number]) Subjective Physical Therapy Visit Type Type Initial Evaluation Visit Start Time 12:12 Visit Stop Time 12:37 Total Visit Minutes 25 Number of POLICY DIRECTOR Visits 0 Physical Therapy Visit Comments Patient Comments agreeable to do PT M4 PT-IP Mobility and Gait Start: 08/09/19 08:40 Freq: NEEDED Status: Active Protocol: Document 08/10/19 12:12 AB (Rec: 08/10/19 14:12 AB [id number]) PT-Bed Mobility Assessment Supine to Sit Supine to Sit Standby Assistance,Head of Bed Elevated PT-Transfer Assessment Sit to and From Stand Sit to and from Stand Maximum Assistance,1 Person Assistance,2 Person Assistance ,Use of Upper Extremities Equipment Transfer Assistive Device Gait Belt,Front Wheeled Walker Orthotic/Prosthetic Devices or Brace: No Transfers Transfer Destination Chair Transfer Technique Stand Step Pivot Transfer Ability Level of Assist Maximum Assistance,2 Person Assistance,Use of Upper Extremities Comments Mobility Comments completed supine to sit with HOB elevated SBA. informed nurse regarding LE wound and nurse wrapped LLE. pt completed sit to stand max A x 1-2 and max cues. pt c/o LLE spasm and LLE tends to go into flexion even during standing and requires max A x 2 for step transfer to the chair using FWW. positioned pt on chair. Left pt with nursing. Gait Assessment Comments Gait Comments unable at this time PT-Balance Assessment Sitting Balance and Reactions Static Sitting Balance Ability Good Dynamic Sitting Balance Ability Good Standing Balance and Reactions Static Standing Balance Ability Poor Dynamic Standing Balance Ability Poor Device Used FWW M5 PT-IP Objective Assessments Start: 08/09/19 08:40 Freq: NEEDED Status: Active Protocol: Document 08/10/19 12:12 AB (Rec: 08/10/19 14:12 AB [id number]) Orientation Orientation/Cognition Level of Alertness Alert Orientation Name,Age,Place Language Function Ability No Deficits Noted Safety Awareness Decreased Safety Awareness Gross Range of Motion Lower Extremity ROM Assessment Within Functional Limits Strength Lower Extremity Strength Assessment Left Impaired Hip 3+/5 Knee 3+/5 Sensation Assessment Sensation Gross Sensation Right LE Impaired,Left LE Impaired Light Touch Impaired Proprioception (Position) Impaired Sensation Description Numbness Muscle Tone Muscle Tone WNL No Muscle Tone Location Left Lower Extremity Type of Tone Flexor Severity of Tone Mild Manifistation of Tone Fluctuation M6 PT-IP Treatment Start: 08/09/19 08:40 Freq: NEEDED Status: Active Protocol: Document 08/10/19 12:12 AB (Rec: 08/10/19 14:12 AB [id number]) Physical Therapy Treatment Education Education Provided Safety M7 PT-IP Assessment and Plan Start: 08/09/19 08:40 Freq: NEEDED Status: Active Protocol: Document 08/10/19 12:12 AB (Rec: 08/10/19 14:12 AB [id number]) PT Summary Assessment and Plan Potential Rehabilitation Potential Fair Status of Condition at Evaluation Evolving Summary Impairments Pain,ROM,Strength,Balance, Coordination,Sensation,Tone, Cognition,Bed Mobility, Transfers,Gait,Activity Tolerance Assessment Summary Pt admitted for GI bleed, UTI and ETOH and requires 2 person max A with mobility and max cues and has decrease safety awareness. pt will need SNF rehab to improve strength and function. Goals Bed Mobility Goal Independent Transfer Goal Minimal Assistance,Front Wheeled Walker Gait Goal Minimal Assistance,Front Wheel Walker Gait Distance 25 Days to Meet Goals 10 Frequency of Treatment Frequency Of Treatment Once a Day Treatment Plan Physical Therapy Treatment Plan Bed Mobility Training,Transfer Training,Gait Training, Therapeutic Exercise,Balance Retraining,Discharge Planning, Neuromuscular Re-ed, Coordination Retraining Recommendations To Nursing Amount of Assist Needed 2 Person Assist Discharge Recommendations PT Discharge Recommendations SNF Rehab Transportation Needs at Discharge Wheelchair/Cabulance
[2019-08-10] MEDS: PIPERACILLIN-TAZO 2.25 GM/50 ML FROZ.PIGGY IV ×3 (12:34→23:26)
[2019-08-10] MEDS: HYDROCODONE/ACET 5/325 TABLET 2 TAB PO ×3 (12:35→22:19)
--- NOTE | 2019-08-10 12:37 | OT.IP.EVAL ---
Current Diagnoses Cellulitis of left lower limb (08/08/19) Past Medical History (Last Reviewed 08/08/19 @ 00:48 by Sweta Garcia MD) Alcoholism (Chronic) Anemia associated with chronic renal failure (Chronic) Cellulitis of lower leg (Chronic) Chronic kidney disease, stage 4 (severe) (Chronic) Chronic pain (Chronic) Depression (Chronic) Diabetes type 2, controlled (Chronic) Duodenal ulcer (Acute) GI bleed (Resolved) Gout, arthropathy (Chronic) History of cervical fracture (Resolved) Hyperparathyroidism (Chronic) Hypertension (Chronic) Left leg pain (Chronic) Symptomatic anemia (Chronic) Surgical History (Last Reviewed 08/08/19 @ 00:48 by Sweta Garcia MD) H/O cervical spine surgery (Acute) History of colectomy (Resolved) History of fusion of cervical spine (Chronic) Occupational Therapy Inpatient Evaluation/Re-Eval M1 PT/OT-IP Prior Functional Status Start: 08/10/19 14:45 Freq: NEEDED Status: Active Protocol: Document 08/10/19 12:13 [facility] (Rec: 08/10/19 15:06 [facility] [id number]) Medical Review Prior Functional Status Medical History Reviewed Yes Communication able to make needs known Mobility and Gait pt stated that he is modified independent with bed mobility, transfers and has not been ambulating much; uses a manual w/c for mobility indoors and uses a 4WW for outdoor mobility if pt goes out Activities of Daily Living and IADL's has a bath aide that comes in once per week to assist him [facility] comes in to assist him 2x/week Pt states that he us able to do his own dressing and toileting needs on his own , in addition to paying bills and for his medication needs. Social History Household Members friend(s),other Living Arrangements Apartment/Condo Number of Floors (Floors) One Floor Number of Stairs To Enter/Railing? ramp to enter Home Environment Standard Height Toilet,Tub/ Shower Home Equipment Four Wheel Walker,Manual Wheelchair,Tub Transfer Bench, Hand Held Shower,Grab Bars Near Toilet,Grab Bars In Shower Additional Social History Comment stated that he has renters that assists with house chores pt has an adjustable bed M2 OT-IP Current Condition Start: 08/10/19 14:45 Freq: Status: Active Protocol: Document 08/10/19 12:13 [facility] (Rec: 08/10/19 15:06 [facility] [id number]) Occupational Therapy Current Condition Current Condition Evaluation Date 08/10/19 Treatment Diagnosis Cellulitis, weakness Diagnosis Onset Date 08/09/19 Weight Bearing Status Weight Bearing Status Weight Bear as Tolerated M3 OT- IP Subjective and Pain Start: 08/10/19 14:45 Freq: Status: Active Protocol: Document 08/10/19 12:13 [facility] (Rec: 08/10/19 15:06 [facility] [id number]) OT- Subjective Occupational Therapy Visit Type Type Initial Evaluation Visit Start Time 12:13 Visit Stop Time 12:37 Total Visit Minutes 24 Occupational Therapy Visit Comments Patient Comments Pt very sleepy and but willing to do OT eval. Patient/Caregiver Goals To go home and do home health . OT Pain Assessment Pain When Pain Assessed At Rest Pain Present Pain Present Pain Reported Location Left Lower Leg Intensity 7 M4 OT- IP ADL's Start: 08/10/19 14:45 Freq: Status: Active Protocol: Document 08/10/19 12:13 [facility] (Rec: 08/10/19 15:06 [facility] [id number]) OT CDS-Wafm-Rjoiopt Comments OT Self-Feeding Comments Not at meal time, pt states did it on his own. OT ADL-Grooming Comments OT Grooming Comments Pt able to wash his face after set-up. OT ADL-Dressing General Eval Lower Body Dressing Ability Maximum Assistance Areas Needing Assistance Socks,Shoes Comments OT Dressing Comments Pt needing MAX A for socks and velcro shoes at this time. OT ADL-Toileting Comments OT Toileting Comments Pt not having to use the bathroom at this time. OT ADL-Bathing Comments OT Bathing Comments Not at this time. M5 OT- IP IADL's Start: 08/10/19 14:45 Freq: Status: Active Protocol: Document 08/10/19 12:13 [facility] (Rec: 08/10/19 15:06 [facility] [id number]) OT-Instrumental Activities of Daily Living Home Safety Awareness Home Safety Comments Pt very sleepy and confused at this time and will need to reassess when pt is more awake . At this time pt will amber assist for all needs. Medication Management Medication Management Comments Pt states did his own. Money Management Money Management Comments Pt states did his own. Meal Preparation Meal Preparation Comments Pt states renters assist at times for IADL needs. Funeral Director And Embalmer Funeral Director And Embalmer Caregiver Provides Assist M6 OT- IP Functional Cognition Start: 08/10/19 14:45 Freq: Status: Active Protocol: Document 08/10/19 12:13 [facility] (Rec: 08/10/19 15:06 [facility] [id number]) Cognitive Factors Limiting Selfcare Function Cognitive Ability Level of Alertness Drowsy Patient Orientation Name,Year,Place Attention Span Ability Capable of Focused Attention, Unable to Sustain Attention Ability to Follow Commands Able to Follow One Step Commands with Increased Time, Able to Follow One Step Commands with Repetition Memory Description Short Term Impaired Safety Awareness Underestimates Need for Assistance Problem Solving Ability Unable to Identify Errors, Needs Assist to Identify Solutions Cognitive Tests SLUMS Pt very drowsy and having a hard time to stay awake and therefore may have to re-test pt tomorrow to compare results . Pt scored 8/24 out of 30 total as had to stop the assessment as physician came to look at his leg wound. Pt having the most problem with short term memory tasks. Cognitive Comments Cognitive Assessment Comments Pt needing simple concrete commands. Pt very sleepy and drowsy and having a hard time staying awake during cognitive assessment. Pt tends to like to joke around and easily distracted. 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 OT- Vision and Hearing OT- Hearing Assessment OT- Hearing Assessment WFL M7 OT- IP Mobility and Balance Start: 08/10/19 14:45 Freq: Status: Active Protocol: Document 08/10/19 12:13 [facility] (Rec: 08/10/19 15:06 [facility] [id number]) OT- Bed Mobility Assessment Supine to Sit Supine to Sit Assist Standby Assistance OT-Transfer Assessment Sit to and From Stand Sit to and from Stand Maximum Assistance,1 Person Assistance,2 Person Assistance Transfers Transfer Ability Maximum Assistance,2 Person Assistance Technique Transfer Destination Bed,Chair Devices Transfer Assistive Devices Gait Belt,Front Wheeled Walker Comments Mobility Comments Pt able to get to the edge of the bed with HOB up with SBA. MAX A X 1-2 to stand and MAX AX 2 to transfer to the recliner as pt unsteady on his feet and needing assist to help turn the FWW. OT- Balance Assessment Sitting Balance and Reactions Static Sitting Balance Ability Good Dynamic Sitting Balance Ability Fair Standing Balance and Reactions Static Standing Balance Ability Poor Dynamic Standing Balance Ability Poor M8 OT- IP Objective Assessments Start: 08/10/19 14:45 Freq: Status: Active Protocol: Document 08/10/19 12:13 [facility] (Rec: 08/10/19 15:06 [facility] [id number]) OT Gross Range of Motion Upper Extremity Range of Motion Assessment Bilaterally Impaired OT Strength Upper Extremity Strength Assessment Bilaterally Impaired Comments Strength Comments BUE 3-/5 for shoulders and from elbow to distal 5/5. OT-Muscle Tone Assessment Muscle Tone WNL Yes M9 OT- IP Assessment and Plan Start: 08/10/19 14:45 Freq: Status: Active Protocol: Document 08/10/19 12:13 [facility] (Rec: 08/10/19 15:06 [facility] [id number]) OT Summary Assessment and Plan Potential Rehabilitation Potential Good Analytic Complexity at Evaluation Low Summary OT Impairments Range of Motion,Strength, Balance,Functional Cognition, Functional Mobility,Grooming, Dressing,Toileting,Bathing, Toilet Transfers,Shower Transfers,Activity Tolerance Progress Towards Goals Slow Progress due to Pain,Slow Progress due to Medical Issues,Slow Progress due to Activity Tolerance,Slow Progress due to Cognition Assessment Summary Pt low complexity and main barriers are pain, decreased balance, and now needing extensive assist x2 for mobility and now MAX A for LB dressing needs. Goals Self-Feeding Goal Independent Grooming Goal Independent Dressing Goal Independent Toileting Goal Independent Bathing Goal Moderate Assistance Toilet Transfer Goal Independent Shower Transfer Goal Minimal Assistance Days to Meet Goals 15 Frequency of Treatment Frequency Of Treatment Once a Day Treatment Plan OT Treatment Plan ADL Training,Functional Cognition Training,Functional Mobility,Patient/Family Education,Discharge Planning Other Treatment Recommendations and [place] [facility] [place] Treatment Focus and FWW. Discharge Recommendations OT Discharge Recommendations SNF Rehab Home Equipment Needs Defer to SNF Transportation Needs at Discharge Wheelchair/Cabulance
--- NOTE | 2019-08-10 13:13 | PM.PN.1 ---
Subjective Subjective Date Patient Seen: 08/10/19 Time Patient Seen: 13:13 Interval history: Patient has had an uneventful night. He does feel tired, too tired to participate in therapy this morning. Reports that he is tolerating his diet with no nausea or vomiting. Left lower leg dressing is seeping and needs to be changed. Reports that pain is controlled. Denies any withdrawal symptoms such as insomnia, tremens, GI upset, headache, sweating, or palpitations. His last drink was 5 days ago. He is on a CIWA protocol and has received 1 mg of ativan at 1:36 am this morning. Exam Vital Signs (past 8 hours): - 08/10/19 08:47 08/10/19 12:00 Temperature 97.1 F L 97.7 F Pulse Rate 72 74 Respiratory Rate 18 18 Blood Pressure 132/76 141/81 H Pulse Oximetry 93 94 Oxygen Delivery Method Room Air Oxygen Flow Rate 0 Narrative Exam Narrative: GENERAL: Alert and oriented, appearing stated age and in no acute distress. HEENT: Head normocephalic/atraumatic. LUNGS: Clear to ausculation bilaterally, no wheezes, rhonchi or rales. CV: Normal S1 and S2 with regular rate and rhythm, no audible murmurs, rubs or gallops. ABDOMEN: Soft, morbidly obese, non-tender, non-distended, organomegaly difficult to assess secondary to body habitus. Positive bowel sounds. EXTREMITIES: Left lower extremity with 5+ pitting edema to knees and dry, crusted skin that is weeping serosanguineous fluid from distal to the knee to just superior to the ankle. Skin on the back of the gastrocnemius is shiny red and weeping. Welll crusted ulcers on the tibial plateau x2. Right lower extremity has dry, flaking skin with 3+pitting edema to the level of the knee. NEURO: Cranial nerves II through XII grossly intact, no focal deficits. PSYCH: Alert and oriented x 3. SKIN: No concerning lesions. Objective Labs Result Diagrams: 08/09/19 10:10 08/09/19 10:10 Labs: Laboratory Results - last 24 hr 08/08/19 00:41 Blood Type O Positive Antibody Screen Negative Crossmatch See Detail Assessment & Plan Assessment & Plan narrative: 68-year-old male admitted for acute anemia, normocytic/normochromic, HD#2 Assessment 1. Acute anemia, normocytic/normochromic, suspect upper GI bleed in this alcoholic male with a severely low hemoglobin/hematocrit and elevated BUN and history of previous duodenal ulcer with hemorrhage. Patient does have other significant comorbidities and his anemia of chronic disease could be contributing to a mixed component as well. Guaiac was negative, but this may turn positive if retested. If not, may consider further work-up with vitamin and iron studies. Patient is status post 4 units of packed RBCs, and now has stable vital signs including a normal blood pressure and heart rate. He is tolerating a low-carb diet with no nausea or vomiting. CBC pending this am. He does not endorse hematemesis but is certainly at risk for variceal bleeding, may need octreotide if that is the case. Plan: If H/H continues to drop, will need to place patient NPO and proceed with an emergent EGD to rule out a bleeding lesion. Goal Hbg >8. In the meantime, will increase Protonix to 40 mg IV b.i.d. and follow labs closely, adding INR today. Will guaic next stool as well. Continuing to hold aspirin. Assessment 2. Chronic venous stasis, bilateral axilla extremities with left lower extremity cellulitis x 6 months Plan: Zosyn, gentle lasix, leg elevation. Wound care consulting, daily dressing changes. Assessment 3. Acute on chronic renal failure, stable Plan: Pharmacy assisting with renal dosing. Continuing with careful diuresis and trend of labs. Assessment 4. History of duodenal ulcer with hemorrhage, 2017, requiring 8 units of packed red blood cells Plan: Please see #1. Assessment 5. Alcohol abuse with history of acute delirium tremens Plan: [facility] protocol. Serum alcohol level was negative on admit. Assessment 6. Chronic pain syndrome secondary to closed cervical fracture Plan: Hydrocodone. Assessment 7. Diabetes mellitus type 2 Plan: Holding glimepiride. Will monitor blood sugars and provide sliding scale insulin. Assessment 8. Hypertension, chronic. Plan: Continue home medications. Assessment 9. Balance, chronic. Plan: PT/OT. GI prophylaxis: Protonix DVT prophylaxis: SCDs Code: Full
[2019-08-10 14:23] LABS: Add Manual Diff / Slide Review NO; Basophils Absolute Auto 0 /uL (0-100); Basophils Percent Auto 0.6 % (0-2); Eosinophils Absolute Auto 300 /uL (0-450); Eosinophils Percent Auto 4.2 % (2-4); Hematocrit 25.2 % (41-53); Hemoglobin 8.8 g/dL (13.5-17.5); Lymphocytes Absolute Auto 400 /uL (1100-4500); Lymphocytes Percent Auto 5.1 % (25-40); Mean Corpuscular HGB Conc 34.9 % (30-36); Mean Corpuscular Hemoglobin 32.4 PG (26-34); Mean Corpuscular Volume 92.9 fL (80-100); Monocytes Absolute Auto 700 /uL (0-900); Monocytes Percent Auto 8.8 % (3-14); Neutrophils Absolute Auto 6800 /uL (1500-7000); Neutrophils Percent Auto 81.3 % (50-75); Platelet Count 212 X10^3/uL (150-400); Red Blood Cell Count 2.71 X10^6/uL (4.5-5.9); Red Cell Distribution Width 14.4 % (11.6-14.8); White Blood Cell Count 8.4 X10^3/uL (4.5-11.0)
[2019-08-10 14:30] LABS: Prothrombin Time 11.3 SECONDS (10.1-12.7)
--- NOTE | 2019-08-10 14:33 | CM.DPC ---
DCP continued: EMR reviewed: CM/Rn met with patient at the bedside to discuss his D/c plan. Patient stated he still does not want SNF and will go home at D/C with [facility]. CM asked if it was okay to talk with his family Sister Rosa or Daughter about D/C plans. Patient stated he didn't want CM to bother his family right now. CM department will follow up with patient again tomorrow to see if he will be willing to discuss D/C planning or allow CM to follow up with his family for safe D/C plan. [facility] will resume at D/C but will need a D/C summary and a HH resumption order. Annelise Aguilar RN
[2019-08-10 14:38] LABS: Alanine Aminotransferase 9 IU/L (<50); Albumin 3.6 g/dL (3.5-5.0); Albumin Globulin Ratio 1.1 (1.0-2.8); Alkaline Phosphatase 83 U/L (38-126); Aspartate Aminotransferase 24 IU/L (17-59); BUN Creatinine Ratio 22.1 (6-22); Bilirubin Total 0.5 mg/dL (0.2-1.3); Blood Urea Nitrogen 59 mg/dL (9-20); Calcium 7.8 mg/dL (8.4-10.2); Carbon Dioxide 27 mmol/L (22-32); Chloride 98 mmol/L (98-107); Globulin 3.3 g/dL (1.7-4.1); Glucose 155 mg/dL (80-110); HEMOLYSIS < 15 (0-50); Potassium 4.4 mmol/L (3.4-5.1); Sodium 132 mmol/L (137-145); Total Protein 6.9 g/dL (6.3-8.2)
[2019-08-10 16:02] VITALS: BP 137/60; PULSE 66; RESP 18; TEMP 36; O2SAT 95
--- NOTE | 2019-08-10 16:02 | PC.NURSE ---
Dressing: Dressing to LLE was removed earlier this morning by . This marine underwriter covered part of the leg with temporary dressing after that but was unable to do full dressing change r/t time limitations. This marine underwriter let edel shift RN know that dressing change still needs to be done (supplies in room, given printed out sheet with dressing change orders). Patient asleep in chair at shift change. Call light and belongings within reach, chair alarm on.
[2019-08-10 20:00] VITALS: BP 144/67; PULSE 69; RESP 20; TEMP 36.1; O2SAT 96
[2019-08-10] MEDS: DOXAZOSIN 4 MG TABLET PO (20:52)
[2019-08-10] MEDS: PANTOPRAZOLE 40 MG VIAL IV (20:53)
[2019-08-10 23:25] VITALS: BP 146/71; PULSE 75; RESP 18; TEMP 36.6; O2SAT 96
[2019-08-11] MEDS: HYDROCODONE/ACET 5/325 TABLET 2 TAB PO ×5 (01:19→18:08)
[2019-08-11 05:21] VITALS: BP 159/94; PULSE 84; RESP 18; TEMP 36.4; O2SAT 94
[2019-08-11 05:32] LABS: Add Manual Diff / Slide Review NO; Basophils Absolute Auto 0 /uL (0-100); Basophils Percent Auto 0.5 % (0-2); Eosinophils Absolute Auto 300 /uL (0-450); Eosinophils Percent Auto 4.8 % (2-4); Hematocrit 25.3 % (41-53); Hemoglobin 8.7 g/dL (13.5-17.5); Lymphocytes Absolute Auto 600 /uL (1100-4500); Lymphocytes Percent Auto 8.4 % (25-40); Mean Corpuscular HGB Conc 34.2 % (30-36); Mean Corpuscular Hemoglobin 31.9 PG (26-34); Mean Corpuscular Volume 93.4 fL (80-100); Monocytes Absolute Auto 700 /uL (0-900); Monocytes Percent Auto 9.9 % (3-14); Neutrophils Absolute Auto 5200 /uL (1500-7000); Neutrophils Percent Auto 76.4 % (50-75); Platelet Count 225 X10^3/uL (150-400); Red Blood Cell Count 2.71 X10^6/uL (4.5-5.9); Red Cell Distribution Width 14.8 % (11.6-14.8); White Blood Cell Count 6.8 X10^3/uL (4.5-11.0)
[2019-08-11] MEDS: PIPERACILLIN-TAZO 2.25 GM/50 ML FROZ.PIGGY IV ×4 (05:35→23:51)
[2019-08-11 05:43] LABS: BUN Creatinine Ratio 22.7 (6-22); Blood Urea Nitrogen 63 mg/dL (9-20); Calcium 7.8 mg/dL (8.4-10.2); Carbon Dioxide 27 mmol/L (22-32); Chloride 98 mmol/L (98-107); Glucose 146 mg/dL (80-110); HEMOLYSIS < 15 (0-50); Potassium 4.2 mmol/L (3.4-5.1); Sodium 133 mmol/L (137-145)
[2019-08-11] MEDS: INSULIN ASPART 100 UNIT/ML INSULN PEN SUBCUT ×3 (08:06→17:13)
[2019-08-11] MEDS: SODIUM CHLORIDE 0.9% FLUSH 10 ML IV ×4 (08:07→21:05)
[2019-08-11] MEDS: FUROSEMIDE 40 MG TABLET 80 MG PO (08:12)
[2019-08-11] MEDS: DULOXETINE 30 MG CAPSULE 60 MG PO (08:12)
[2019-08-11] MEDS: CITALOPRAM 20 MG TABLET PO (08:12)
[2019-08-11] MEDS: FOLIC ACID 1 MG TABLET PO (08:12)
[2019-08-11] MEDS: MULTIVITAMIN 1 TABLET 1 TAB PO (08:13)
[2019-08-11] MEDS: PANTOPRAZOLE 40 MG VIAL IV ×2 (08:13→21:16)
[2019-08-11] MEDS: THIAMINE 100 MG TABLET PO (08:21)
[2019-08-11 09:00] VITALS: BP 142/78; PULSE 78; RESP 20; TEMP 36.7; O2SAT 95
[2019-08-11 12:01] VITALS: BP 146/74; PULSE 74; RESP 18; TEMP 36.5; O2SAT 96
--- NOTE | 2019-08-11 12:07 | P.PN_ITS ---
Subjective Subjective Date Patient Seen: 08/11/19 Time Patient Seen: 12:07 Interval history: Uneventful night. Has not required any additional Ativan per [facility] protocol. Reports that he has not been sleeping very well. Pain 8/10, This is baseline for me. Reports that wound care has not been by to see him yet. Denies any nausea or vomiting, tolerating a full diet. Has not had a bowel movement in 3 days, feels that he is ready to have one. Denies shortness of breath. Exam Vital Signs (past 8 hours): - 08/11/19 05:21 08/11/19 09:00 08/11/19 12:01 Temperature 97.6 F 98.0 F 97.7 F Pulse Rate 84 78 74 Respiratory Rate 18 20 18 Blood Pressure 159/94 H 142/78 H 146/74 H Pulse Oximetry 94 95 96 Oxygen Delivery Method Room Air Oxygen Flow Rate 0 Narrative Exam Narrative: GENERAL: Alert and oriented, appearing stated age and in no acute distress. HEENT: Head normocephalic/atraumatic. LUNGS: Clear to ausculation bilaterally, no wheezes, rhonchi or rales. CV: Normal S1 and S2 with regular rate and rhythm, 3/5 holosystolic murmur, no rubs or gallops. ABDOMEN: Soft, morbidly obese, non-tender, non-distended, organomegaly difficult to assess secondary to body habitus. Positive bowel sounds. EXTREMITIES: Left lower extremity with 5+ pitting edema to knees and dry, crusted skin that is weeping serosanguineous fluid from distal to the knee to just superior to the ankle. Skin on the back of the gastrocnemius is shiny red and weeping. Welll crusted ulcers on the tibial plateau x2. Right lower extremity has dry, flaking skin with 3+pitting edema to the level of the knee. NEURO: Cranial nerves II through XII grossly intact, no focal deficits. PSYCH: Alert and oriented x 3. SKIN: As above. Objective Labs Result Diagrams: 08/11/19 05:20 08/11/19 05:20 Labs: Laboratory Results - last 24 hr 08/10/19 08/10/19 08/10/19 14:05 14:05 14:05 WBC 8.4 RBC 2.71 L Hgb 8.8 L Hct 25.2 L MCV 92.9 MCH 32.4 MCHC 34.9 RDW 14.4 Plt Count 212 Neut % (Auto) 81.3 H Lymph % (Auto) 5.1 L [place] % (Auto) 8.8 Eos % (Auto) 4.2 H Baso % (Auto) 0.6 Neut # (Auto) 6800 Lymph # (Auto) 400 L [place] # (Auto) 700 Eos # (Auto) 300 Baso # (Auto) 0 PT 11.3 INR 1.0 Sodium 132 L Potassium 4.4 Chloride 98 Carbon Dioxide 27 BUN 59 H Creatinine 2.67 H Estimated GFR 24.0 L BUN/Creatinine Ratio 22.1 H Glucose 155 H Calcium 7.8 L Total Bilirubin 0.5 AST 24 ALT 9 Alkaline Phosphatase 83 Total Protein 6.9 Albumin 3.6 Globulin 3.3 Albumin/Globulin Ratio 1.1 08/11/19 08/11/19 05:20 05:20 WBC 6.8 RBC 2.71 L Hgb 8.7 L Hct 25.3 L MCV 93.4 MCH 31.9 MCHC 34.2 RDW 14.8 Plt Count 225 Neut % (Auto) 76.4 H Lymph % (Auto) 8.4 L [place] % (Auto) 9.9 Eos % (Auto) 4.8 H Baso % (Auto) 0.5 Neut # (Auto) 5200 Lymph # (Auto) 600 L [place] # (Auto) 700 Eos # (Auto) 300 Baso # (Auto) 0 PT INR Sodium 133 L Potassium 4.2 Chloride 98 Carbon Dioxide 27 BUN 63 H Creatinine 2.77 H Estimated GFR 23.0 L BUN/Creatinine Ratio 22.7 H Glucose 146 H Calcium 7.8 L Total Bilirubin AST ALT Alkaline Phosphatase Total Protein Albumin Globulin Albumin/Globulin Ratio Assessment & Plan Assessment & Plan narrative: 68-year-old male admitted for acute anemia, normocytic/normochromic, HD#3 Assessment 1. Acute anemia, normocytic/normochromic, suspect upper GI bleed in this alcoholic male versus mixed anemia of chronic disease/alcoholism. H/H and vital signs stable over the last 2 days. Plan: Goal Hbg >8. Continue Protonix 40 mg IV b.i.d. Will trend labs, repeat guaic pending. Continuing to hold aspirin. Will add iron and vitamin studies to look for underlying causes of patient's severe anemia (besides blood loss). Assessment 2. Systolic murmur, new, possibly due to anemia. Plan: Echo. Assessment 3. Chronic venous stasis, bilateral lower level extremities with left lower extremity cellulitis x 6 months Plan: Zosyn, gentle lasix, leg elevation. Wound care consulting, daily dressing changes. Will coordinate care to ensure that wound care is rounding on patient. Assessment 4. Acute on chronic renal failure, Cr trending up. Plan: Pharmacy assisting with renal dosing. Continuing with careful diuresis and trend of labs. Assessment 5. History of duodenal ulcer with hemorrhage, 2017, requiring 8 units of packed red blood cells Plan: Please see #1. Assessment 6. Alcohol abuse with history of acute delirium tremens Plan: [facility] protocol. Serum alcohol level negative on admit. Assessment 7. Chronic pain syndrome secondary to closed cervical fracture Plan: Hydrocodone. Assessment 8. Diabetes mellitus type 2 Plan: Holding glimepiride. Will monitor blood sugars and provide sliding scale insulin. Assessment 9. Hypertension, chronic. Plan: Continue home medications. Assessment 10. Balance, chronic. Plan: PT/OT. GI prophylaxis: Protonix DVT prophylaxis: SCDs Code: Full
--- NOTE | 2019-08-11 13:24 | OT.IP.TRT ---
Current Diagnoses Cellulitis of left lower limb (08/08/19) Occupational Therapy Treatment Note M2 OT-IP Current Condition Start: 08/10/19 14:45 Freq: Status: Active Protocol: Document 08/10/19 12:13 [facility] (Rec: 08/10/19 15:06 [facility] [id number]) Occupational Therapy Current Condition Current Condition Evaluation Date 08/10/19 Treatment Diagnosis Cellulitis, weakness Diagnosis Onset Date 08/09/19 Weight Bearing Status Weight Bearing Status Weight Bear as Tolerated M3 OT- IP Subjective and Pain Start: 08/10/19 14:45 Freq: Status: Active Protocol: Document 08/11/19 13:13 [facility] (Rec: 08/11/19 13:24 [facility]GR [email or web address]) OT- Subjective Occupational Therapy Visit Type Type Progress Note Visit Start Time 12:55 Visit Stop Time 13:08 Total Visit Minutes 13 OT Pain Assessment Pain When Pain Assessed At Rest Pain Present Pain Present Denied Pain M4 OT- IP ADL's Start: 08/10/19 14:45 Freq: Status: Active Protocol: Document 08/11/19 13:13 [facility] (Rec: 08/11/19 13:24 CGR [id number]) OT QBY-Cwly-Ltepbid Comments OT Self-Feeding Comments Not meal time OT ADL-Grooming General Evaluation Grooming Ability Standby Assistance Areas Needing Assistance Retrieving/Set-up of Grooming Items,Face Washing Comments OT Grooming Comments seated in chair OT ADL-Oral Care General Eval Oral Care Ability Standby Assistance Areas of Assistance Brushing Teeth,Retrieving/Set- Up of Items Comments Oral Care Comments seated in chair. OT ADL-Dressing Comments OT Dressing Comments not performed OT ADL-Toileting Comments OT Toileting Comments pt declined need OT ADL-Bathing Comments OT Bathing Comments pt declined M5 OT- IP IADL's Start: 08/10/19 14:45 Freq: Status: Active Protocol: Document 08/10/19 12:13 [facility] (Rec: 08/10/19 15:06 [facility] [id number]) OT-Instrumental Activities of Daily Living Home Safety Awareness Home Safety Comments Pt very sleepy and confused at this time and will need to reassess when pt is more awake . At this time pt will amber assist for all needs. Medication Management Medication Management Comments Pt states did his own. Money Management Money Management Comments Pt states did his own. Meal Preparation Meal Preparation Comments Pt states renters assist at times for IADL needs. Cash Application Clerk Cash Application Clerk Caregiver Provides Assist M6 OT- IP Functional Cognition Start: 08/10/19 14:45 Freq: Status: Active Protocol: Document 08/11/19 13:13 [facility] (Rec: 08/11/19 13:24 [facility]GR [id number]) Cognitive Factors Limiting Selfcare Function Cognitive Ability Level of Alertness Alert Cognitive Tests SLUMS Pt participated in SLUMS again today with poor memory recall and other minor errors but overall a significant improvement from the last assessment. Pt scored 24/30. Cognitive Comments Cognitive Assessment Comments Pt appears to have improved cognition on this date. OT- Vision and Hearing OT- Hearing Assessment OT- Hearing Assessment WFL M7 OT- IP Mobility and Balance Start: 08/10/19 14:45 Freq: Status: Active Protocol: Document 08/10/19 12:13 [facility] (Rec: 08/10/19 15:06 [facility] [id number]) OT- Bed Mobility Assessment Supine to Sit Supine to Sit Assist Standby Assistance OT-Transfer Assessment Sit to and From Stand Sit to and from Stand Maximum Assistance,1 Person Assistance,2 Person Assistance Transfers Transfer Ability Maximum Assistance,2 Person Assistance Technique Transfer Destination Bed,Chair Devices Transfer Assistive Devices Gait Belt,Front Wheeled Walker Comments Mobility Comments Pt able to get to the edge of the bed with HOB up with SBA. MAX A X 1-2 to stand and MAX AX 2 to transfer to the recliner as pt unstady on his feet and needing assist to help turn the FWW. OT- Balance Assessment Sitting Balance and Reactions Static Sitting Balance Ability Good Dynamic Sitting Balance Ability Fair Standing Balance and Reactions Static Standing Balance Ability Poor Dynamic Standing Balance Ability Poor M8 OT- IP Objective Assessments Start: 08/10/19 14:45 Freq: Status: Active Protocol: Document 08/10/19 12:13 [facility] (Rec: 08/10/19 15:06 [facility] [id number]) OT Gross Range of Motion Upper Extremity Range of Motion Assessment Bilaterally Impaired OT Strength Upper Extremity Strength Assessment Bilaterally Impaired Comments Strength Comments BUE 3-/5 for shoulders and from elbow to distal 5/5. OT-Muscle Tone Assessment Muscle Tone WNL Yes M9 OT- IP Assessment and Plan Start: 08/10/19 14:45 Freq: Status: Active Protocol: Document 08/11/19 13:13 [facility] (Rec: 08/11/19 13:24 [facility]GR [email or web address]) OT Summary Assessment and Plan Potential Rehabilitation Potential Good Analytic Complexity at Evaluation Low Summary OT Impairments Range of Motion,Strength, Balance,Functional Cognition, Functional Mobility,Grooming, Dressing,Toileting,Bathing, Toilet Transfers,Shower Transfers,Activity Tolerance Progress Towards Goals Slow Progress due to Pain,Slow Progress due to Medical Issues,Slow Progress due to Activity Tolerance,Slow Progress due to Cognition Assessment Summary Pt participated in updated SLUMS and seated ADLs. Pt with increased cognition from last testing. Pt will likely continue to benefit from OT services. Per chart, pt is refusing SNF. Goals Self-Feeding Goal Independent Grooming Goal Independent Dressing Goal Independent Toileting Goal Independent Bathing Goal Moderate Assistance Toilet Transfer Goal Independent Shower Transfer Goal Minimal Assistance Days to Meet Goals 14 Frequency of Treatment Frequency Of Treatment Once a Day Treatment Plan OT Treatment Plan ADL Training,Functional Cognition Training,Functional Mobility,Patient/Family Education,Discharge Planning Other Treatment Recommendations and Next Transfer to [facility] with MODA X 1 Treatment Focus and FWW. Discharge Recommendations OT Discharge Recommendations SNF Rehab Home Equipment Needs Defer to SNF Transportation Needs at Discharge Wheelchair/Cabulance
--- NOTE | 2019-08-11 14:35 | PT.IPTN ---
Current Diagnoses Cellulitis of left lower limb (08/08/19) Physical Therapy Treatment Note M2 PT-IP Current Condition Start: 08/09/19 08:40 Freq: NEEDED Status: Active Protocol: Document 08/10/19 12:12 AB (Rec: 08/10/19 14:12 AB [id number]) Physical Therapy Current Condition Current Condition Evaluation Date 08/10/19 Treatment Diagnosis UTI; GI bleed; ETOH; difficulty in walking Onset Date 08/08/19 Precautions Other Precautions falls M3 PT-IP Subjective Start: 08/09/19 08:40 Freq: NEEDED Status: Active Protocol: Document 08/11/19 14:35 LJ (Rec: 08/11/19 14:35 LJ [id number]) Subjective Physical Therapy Visit Type Type Patient Refusal Notes checked with pt x3 and he refused each time M4 PT-IP Mobility and Gait Start: 08/09/19 08:40 Freq: NEEDED Status: Active Protocol: Document 08/10/19 12:12 AB (Rec: 08/10/19 14:12 AB [id number]) PT-Bed Mobility Assessment Supine to Sit Supine to Sit Standby Assistance,Head of Bed Elevated PT-Transfer Assessment Sit to and From Stand Sit to and from Stand Maximum Assistance,1 Person Assistance,2 Person Assistance ,Use of Upper Extremities Equipment Transfer Assistive Device Gait Belt,Front Wheeled Walker Orthotic/Prosthetic Devices or Brace: No Transfers Transfer Destination Chair Transfer Technique Stand Step Pivot Transfer Ability Level of Assist Maximum Assistance,2 Person Assistance,Use of Upper Extremities Comments Mobility Comments completed supine to sit with HOB elevated SBA. informed nurse regarding LE wound and nurse wrapped LLE. pt completed sit to stand max A x 1-2 and max cues. pt c/o LLE spasm and LLE tends to go into flexion even during standing and requires max A x 2 for step transfer to the chair using FWW. positioned pt on chair. Left pt with nursing. Gait Assessment Comments Gait Comments unable at this time PT-Balance Assessment Sitting Balance and Reactions Static Sitting Balance Ability Good Dynamic Sitting Balance Ability Good Standing Balance and Reactions Static Standing Balance Ability Poor Dynamic Standing Balance Ability Poor Device Used FWW M5 PT-IP Objective Assessments Start: 08/09/19 08:40 Freq: NEEDED Status: Active Protocol: Document 08/10/19 12:12 AB (Rec: 08/10/19 14:12 AB [id number]) Orientation Orientation/Cognition Level of Alertness Alert Orientation Name,Age,Place Language Function Ability No Deficits Noted Safety Awareness Decreased Safety Awareness Gross Range of Motion Lower Extremity ROM Assessment Within Functional Limits Strength Lower Extremity Strength Assessment Left Impaired Hip 3+/5 Knee 3+/5 Sensation Assessment Sensation Gross Sensation Right LE Impaired,Left LE Impaired Light Touch Impaired Proprioception (Position) Impaired Sensation Description Numbness Muscle Tone Muscle Tone WNL No Muscle Tone Location Left Lower Extremity Type of Tone Flexor Severity of Tone Mild Manifistation of Tone Fluctuation M6 PT-IP Treatment Start: 08/09/19 08:40 Freq: NEEDED Status: Active Protocol: Document 08/10/19 12:12 AB (Rec: 08/10/19 14:12 AB [id number]) Physical Therapy Treatment Education Education Provided Safety M7 PT-IP Assessment and Plan Start: 08/09/19 08:40 Freq: NEEDED Status: Active Protocol: Document 08/10/19 12:12 AB (Rec: 08/10/19 14:12 AB [id number]) PT Summary Assessment and Plan Potential Rehabilitation Potential Fair Status of Condition at Evaluation Evolving Summary Impairments Pain,ROM,Strength,Balance, Coordination,Sensation,Tone, Cognition,Bed Mobility, Transfers,Gait,Activity Tolerance Assessment Summary Pt admitted for GI bleed, UTI and ETOH and requires 2 person max A with mobility and max cues and has decrease safety awareness. pt will need SNF rehab to improve strength and function. Goals Bed Mobility Goal Independent Transfer Goal Minimal Assistance,Front Wheeled Walker Gait Goal Minimal Assistance,Front Wheel Walker Gait Distance 25 Days to Meet Goals 10 Frequency of Treatment Frequency Of Treatment Once a Day Treatment Plan Physical Therapy Treatment Plan Bed Mobility Training,Transfer Training,Gait Training, Therapeutic Exercise,Balance Retraining,Discharge Planning, Neuromuscular Re-ed, Coordination Retraining Recommendations To Nursing Amount of Assist Needed 2 Person Assist Discharge Recommendations PT Discharge Recommendations SNF Rehab Transportation Needs at Discharge Wheelchair/Cabulance
--- NOTE | 2019-08-11 15:40 | PC.NURSE ---
Shift summary: Late entry A&O X3. Forgetful. Lungs CTA, dim posterior bases. HRR, distant and difficult to auscultate. 2+ pitting edema to BLE's. Dressing from LLE taken off approx. 1430. LLE cleansed with normal saline and patted dry. Left open to air and covered with clean towel while waiting for charge nurse to get Exudry from materials. Patito shift RN that dressing change needs to be finished. Has intermittent spasms in LLE, as well as chronic back/neck/shoulder pain- medicated twice with PRN Vicodin. BT+, flatus+. Abd soft, nontender. Voiding independently per urinal. Able to make needs known and calls appropriately. Up in chair at this hour. Call light and belongings within reach, chair alarm on.
[2019-08-11 16:05] VITALS: BP 142/75; PULSE 66; RESP 18; TEMP 36.6; O2SAT 99
[2019-08-11] MEDS: LORazepam 2 MG/ML INJ 1 MG IV (19:20)
[2019-08-11 20:00] VITALS: BP 167/73; PULSE 78; RESP 18; TEMP 36.4; O2SAT 99
[2019-08-11] MEDS: DOXAZOSIN 4 MG TABLET PO (21:17)
[2019-08-11 23:10] VITALS: BP 136/68; PULSE 73; RESP 18; TEMP 36.7; O2SAT 95
[2019-08-12 04:49] VITALS: BP 158/61; PULSE 76; RESP 18; TEMP 36.6; O2SAT 95
[2019-08-12] MEDS: PIPERACILLIN-TAZO 2.25 GM/50 ML FROZ.PIGGY IV (05:46)
[2019-08-12 06:37] LABS: Reticulocyte Count, Percent 2.7 % (0.87-2.60)
[2019-08-12] MEDS: HYDROCODONE/ACET 5/325 TABLET 2 TAB PO ×2 (06:38→11:18)
[2019-08-12 06:43] LABS: Add Manual Diff / Slide Review NO; Basophils Absolute Auto 0 /uL (0-100); Basophils Percent Auto 0.6 % (0-2); Eosinophils Absolute Auto 300 /uL (0-450); Hematocrit 25.4 % (41-53); Hemoglobin 8.8 g/dL (13.5-17.5); Lymphocytes Absolute Auto 700 /uL (1100-4500); Lymphocytes Percent Auto 10.1 % (25-40); Mean Corpuscular HGB Conc 34.8 % (30-36); Mean Corpuscular Hemoglobin 32.4 PG (26-34); Mean Corpuscular Volume 93.3 fL (80-100); Monocytes Absolute Auto 800 /uL (0-900); Monocytes Percent Auto 11.7 % (3-14); Neutrophils Absolute Auto 4800 /uL (1500-7000); Neutrophils Percent Auto 73.6 % (50-75); Platelet Count 230 X10^3/uL (150-400); Red Blood Cell Count 2.72 X10^6/uL (4.5-5.9); Red Cell Distribution Width 14.6 % (11.6-14.8); White Blood Cell Count 6.5 X10^3/uL (4.5-11.0)
[2019-08-12 06:59] LABS: Iron 30 ug/dL (49-181)
[2019-08-12 07:04] LABS: Lipase 36 U/L (23-300)
[2019-08-12 07:07] LABS: Bilirubin Direct 0.1 mg/dL (0.0-0.4); Bilirubin Total 0.4 mg/dL (0.2-1.3)
[2019-08-12 07:08] LABS: Albumin 3.6 g/dL (3.5-5.0); BUN Creatinine Ratio 25.8 (6-22); Blood Urea Nitrogen 69 mg/dL (9-20); Calcium 7.8 mg/dL (8.4-10.2); Carbon Dioxide 26 mmol/L (22-32); Chloride 97 mmol/L (98-107); Glucose 127 mg/dL (80-110); HEMOLYSIS < 15 (0-50); Phosphorous 5.3 mg/dL (2.3-3.7); Potassium 4.1 mmol/L (3.4-5.1); Sodium 132 mmol/L (137-145)
[2019-08-12 07:09] LABS: Total Iron Binding Capacity 244 ug/dL (261-462); Transferrin 177 mg/dL (206-381)
[2019-08-12 07:41] LABS: Ferritin 271 ng/mL (18-464)
[2019-08-12 07:50] VITALS: BP 140/69; PULSE 74; RESP 16; TEMP 36.3; O2SAT 95
[2019-08-12 09:03] LABS: Folate > 20.0 ng/mL (2.76-20.0); Vitamin B12 664 pg/mL (239-931)
--- NOTE | 2019-08-12 09:13 | PT.IPTN ---
Current Diagnoses Cellulitis of left lower limb (08/08/19) Physical Therapy Treatment Note M2 PT-IP Current Condition Start: 08/09/19 08:40 Freq: NEEDED Status: Active Protocol: Document 08/10/19 12:12 AB (Rec: 08/10/19 14:12 AB [id number]) Physical Therapy Current Condition Current Condition Evaluation Date 08/10/19 Treatment Diagnosis UTI; GI bleed; ETOH; difficulty in walking Onset Date 08/08/19 Precautions Other Precautions falls M3 PT-IP Subjective Start: 08/09/19 08:40 Freq: NEEDED Status: Active Protocol: Document 08/12/19 08:55 [facility] (Rec: 08/12/19 09:59 CLB [id number]) Subjective Physical Therapy Visit Type Type Treatment Note Visit Start Time 08:55 Visit Stop Time 09:13 Total Visit Minutes 18 Number of 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 M4 PT-IP Mobility and Gait Start: 08/09/19 08:40 Freq: NEEDED Status: Active Protocol: Document 08/12/19 08:55 [facility] (Rec: 08/12/19 09:59 CLB [id number]) PT-Bed Mobility Assessment Supine to Sit Supine to Sit Standby Assistance,Head of Bed Elevated Sit to Supine Sit to Supine Minimal Assistance,Head of Bed Elevated PT-Transfer Assessment Sit to and From Stand Sit to and from Stand Maximum Assistance,1 Person Assistance,Use of Upper Extremities Equipment Transfer Assistive Device Gait Belt,Front Wheeled Walker Transfers Transfer Destination Bedside Commode Transfer Technique Stand Step Pivot Transfer Ability Level of Assist Maximum Assistance,1 Person Assistance,Use of Upper Extremities Comments Mobility Comments Pt required SBA for supine to sit then Max A for sit-stand with bed raised. Pt transferred to BSC requiring Max A with posterior LOB that was corrected with GB. Pt required assist with pericare by SLOT HOST. Pt Stood requiring Max A and Max A for standing balance. Pt required a seated break after pericare before transferring back to bed. Pt transferred back to bed requiring Max A. Pt required Min A of LE's sit-supine. Pt was able to use bed rails from HOB to scoot himself up in bed. Pt left in bed with all needs within reach, bed alarm on and SLOT HOST present. Gait Assessment Comments Gait Comments unable at this time M5 PT-IP Objective Assessments Start: 08/09/19 08:40 Freq: NEEDED Status: Active Protocol: Document 08/10/19 12:12 AB (Rec: 08/10/19 14:12 AB [id number]) Orientation Orientation/Cognition Level of Alertness Alert Orientation Name,Age,Place Language Function Ability No Deficits Noted Safety Awareness Decreased Safety Awareness Gross Range of Motion Lower Extremity ROM Assessment Within Functional Limits Strength Lower Extremity Strength Assessment Left Impaired Hip 3+/5 Knee 3+/5 Sensation Assessment Sensation Gross Sensation Right LE Impaired,Left LE Impaired Light Touch Impaired Proprioception (Position) Impaired Sensation Description Numbness Muscle Tone Muscle Tone WNL No Muscle Tone Location Left Lower Extremity Type of Tone Flexor Severity of Tone Mild Manifistation of Tone Fluctuation M6 PT-IP Treatment Start: 08/09/19 08:40 Freq: NEEDED Status: Active Protocol: Document 08/10/19 12:12 AB (Rec: 08/10/19 14:12 AB [id number]) Physical Therapy Treatment Education Education Provided Safety M7 PT-IP Assessment and Plan Start: 08/09/19 08:40 Freq: NEEDED Status: Active Protocol: Document 08/12/19 08:55 [facility] (Rec: 08/12/19 09:59 [facility]B [id number]) PT Summary Assessment and Plan Potential Rehabilitation Potential Fair Status of Condition at Evaluation Evolving Summary Impairments Pain,ROM,Strength,Balance, Coordination,Sensation,Tone, Cognition,Bed Mobility, Transfers,Gait,Activity Tolerance Assessment Summary Pt requiring SBA-Min A of LE's in and out of bed. Pt requiring Max A x1 for sit- stand, transfer and staning balance. Pt would benefit from SNF rehab to improve strength and functional mobility. Goals Bed Mobility Goal Independent Transfer Goal Minimal Assistance,Front Wheeled Walker Gait Goal Minimal Assistance,Front Wheel Walker Gait Distance 25 Days to Meet Goals 10 Frequency of Treatment Frequency Of Treatment Once a Day Treatment Plan Physical Therapy Treatment Plan Bed Mobility Training,Transfer Training,Gait Training, Therapeutic Exercise,Balance Retraining,Discharge Planning, Neuromuscular Re-ed, Coordination Retraining Recommendations To Nursing Amount of Assist Needed 2 Person Assist Discharge Recommendations PT Discharge Recommendations SNF Rehab Transportation Needs at Discharge Wheelchair/Cabulance
--- NOTE | 2019-08-12 09:32 | CM.DPC ---
DCP/continued: Reviewed chart. Spoke with Dr. Schaefer this AM. He reports patient medically stable for discharge today. Patient refusing SNF. [facility] to [facility] those [facility]. Pl[facility] to [facility], he confirms patient on service. Order obtained to resume services and [employer] asked ALIVIA/Rebeca to fax to [place]. Met with patient he is aware and agreeable to plan. Pam brochure provided. RN updated. Patient reports that his sister will pick him up. P: Home today [facility]. NOELLE Funes
[2019-08-12] MEDS: FUROSEMIDE 40 MG TABLET 80 MG PO (09:33)
[2019-08-12] MEDS: FOLIC ACID 1 MG TABLET PO (09:33)
[2019-08-12] MEDS: DULOXETINE 30 MG CAPSULE 60 MG PO (09:33)
[2019-08-12] MEDS: CITALOPRAM 20 MG TABLET PO (09:33)
[2019-08-12] MEDS: MULTIVITAMIN 1 TABLET 1 TAB PO (09:34)
[2019-08-12] MEDS: SODIUM CHLORIDE 0.9% FLUSH 10 ML IV (09:34)
[2019-08-12] MEDS: INSULIN ASPART 100 UNIT/ML INSULN PEN SUBCUT (09:36)
--- NOTE | 2019-08-12 10:52 | PC.NURSE ---
Spoke with Helga and wound care center about Dr Schaefer wanting Dr Lei to see patient today before discharge. Per Helga patient is to continue to wear his juxtalite stockings as he currently does and to call their office and schedule a follow up appt in the next few days. Informed patients nurse Renetta to relay this information to the patient.
--- NOTE | 2019-08-12 12:22 | PC.NURSE ---
Day shift: Pt left unit via WC to car driven by his sister. Taken by this typewriter tester. Paperwork is signed and all questions answered. Pt has personal belonings as well as the meds he had down in pharmacy. scripts sent electronic.
--- NOTE | 2019-08-12 17:52 | PM.DS.1 ---
History of Present Illness History of Present Illness Chief complaint: UTI Discharge Providers Provider Date of admission: 08/08/19 01:12 Discharge Date: 08/12/19 Primary care physician: Jim Quintana MD Consults: 08/08/19 02:29 Consult to Pastoral Services Routine Comment: patient request 08/08/19 08:19 Consult to Dietitian, Adult Routine Comment: Reason For Exam: infection, ETOH Abuse 08/08/19 08:56 Consult to Wound Care Urgent Comment: Consulting Provider: [facility] 08/08/19 08:57 Consult to Wound Care Routine Comment: Consulting Provider: [facility] 08/09/19 08:13 Consult to Occupational Therapy Evaluate & Treat Comment: Physician Instructions: Evaluate and treat Consult to Physical Therapy Evaluate & Treat Comment: Physician Instructions: Evaluate and Treat 08/12/19 09:13 Consult to Home Health Routine Comment: Discharge today from [facility] 08-12-19 Reason For Exam: Resume Home Health with Pam Discharge provider: Luke Schaefer MD Summary Hospital Course Discharge Diagnosis: Anemia, iron deficiency requiring blood replacement Chronic venous stasis changes left lower leg with cellulitis Acute on chronic renal failure. History of duodenal ulcer Alcohol abuse Chronic pain back Diabetes Hospital Course: Anemia. Patient was admitted and 2 units of packed red blood was given. Patient had guaiac-negative and had no evidence of dark blood per rectum or nausea vomiting or hematemesis. He was tolerating food within 12 hours. Had no complaints of pain during his admission. After 2 units is hematocrit was still 21. And he was given 2 more units. Reasoning behind treating above 21 was his issues with alcohol his poor care and the belief that he is at high risk for returning with GI bleed. He then ras to 25. He continued to be stable throughout the rest of his admission No wear during the course of his admission did he have any further blood loss. Iron studies showed this was consistent with an iron deficiency. Was started on iron on day of discharge. Was felt that he had bled and stop bleeding prior to admission. There was never any evidence of any significant bleeding and he was otherwise stable. He will be discharged on his usual PPI and requested not to drink. Question of UTI on admission. Ruled out with cultures no further treatment. Chronic venous stasis changes with cellulitis. Patient was admitted and found to have chronic wounds. Some of this is secondary to poor care. Patient had wound care consulted and they have been following feels if it will heal well without further care. Recommended antibiotics. He was initially placed on imipenem and on day of discharge switch to Augmentin. Wound care will be following as an outpatient. Patient was significantly improved as far as erythema ago. No other changes. Acute on chronic renal failure. Patient has been in chronic renal failure for some time. He has been stable and will need to be closely watched as outpatient especially with his usual diuresis. He requires a diuresis secondary to his issues with his leg and will need to be followed. No treatment at this time but if continues to worsen will need nephrology. Difficult case since patient is not caring from self well. Would be difficult to get him to a neurologist but may be something that Dr. Quintana will have to do as an outpatient. History of duodenal ulcer. Will continue his PPI. No evidence of bleeding. Would recommend he discontinue his anti-inflammatories. Alcohol abuse. Central issue for him. No evidence of withdrawal during is hospitalization. Apparently had quit 2 or 3 days prior to being hospitalized. He states that he will not drink further. But he really likes drinking and he is not sure he can go without it. Will have to see. We discussed as we have previously treatment he is not interested. Chronic pain issues. Patient will provide hydrocodone. He will go home on [address] a [address] Him and Dr. Quintana can work out further treatment options. Type 2 diabetes. Stable throughout. Will go back to glimepiride on discharge. Disposition. Patient's biggest issue is is alcohol abuse. I think it is highly likely he will return either due to issues a surrounding his leg or worsening renal failure or GI bleed. Patient will follow-up with Dr. Quintana in 1 week. Status at Discharge Cognitive/behavioral status at discharge: oriented Functional status at discharge: independent ambulation Time Spent with Patient Time spent: Greater than 30 minutes Exam Vital Signs (past 8 hours): Oxygen Delivery Method Room Air Oxygen Flow Rate 0 Narrative Exam Narrative: Alert obese male actually looking pretty acquisition consultant this morning. Eyes within normal limits. Posterior pharynx is unremarkable. No oral lesions. Mucous membranes moist. Neck supple without adenopathy JVD or bruits. Lungs are clear. Heart regular rate and rhythm without murmur blurred abdomen was obese soft positive bowel sounds completely nontender. Extremities with 1+ edema. Left leg is in wrapping but seems to be less erythematous than last time I saw. Difficult to tell what wounds are like. Neurologic exam is nonfocal. He is actually quite happy today. Interactive appropriate good eye contact Objective Labs Result Diagrams: 08/12/19 06:15 08/12/19 06:15 Labs: Laboratory Results - last 24 hr 08/12/19 08/12/19 08/12/19 06:15 06:15 06:15 WBC RBC Hgb Hct MCV MCH MCHC RDW Plt Count Neut % (Auto) Lymph % (Auto) [place] % (Auto) Eos % (Auto) Baso % (Auto) Neut # (Auto) Lymph # (Auto) [place] # (Auto) Eos # (Auto) Baso # (Auto) Percent Retic 2.7 H Sodium Potassium Chloride Carbon Dioxide BUN Creatinine Estimated GFR BUN/Creatinine Ratio Glucose Calcium Phosphorus 5.3 H Magnesium 2.0 Iron TIBC Transferrin Ferritin Total Bilirubin Direct Bilirubin Albumin 3.6 Lipase 36 Vitamin B12 Folate 08/12/19 08/12/19 08/12/19 06:15 06:15 06:15 WBC 6.5 RBC 2.72 L Hgb 8.8 L Hct 25.4 L MCV 93.3 MCH 32.4 MCHC 34.8 RDW 14.6 Plt Count 230 Neut % (Auto) 73.6 Lymph % (Auto) 10.1 L [place] % (Auto) 11.7 Eos % (Auto) 4.0 Baso % (Auto) 0.6 Neut # (Auto) 4800 Lymph # (Auto) 700 L [place] # (Auto) 800 Eos # (Auto) 300 Baso # (Auto) 0 Percent Retic Sodium Potassium Chloride Carbon Dioxide BUN Creatinine Estimated GFR BUN/Creatinine Ratio Glucose Calcium Phosphorus Magnesium Iron 30 L TIBC 244 L Transferrin 177 L Ferritin 271 Total Bilirubin 0.4 Direct Bilirubin 0.1 Albumin Lipase Vitamin B12 664 Folate > 20.0 H 08/12/19 06:15 WBC RBC Hgb Hct MCV MCH MCHC RDW Plt Count Neut % (Auto) Lymph % (Auto) [place] % (Auto) Eos % (Auto) Baso % (Auto) Neut # (Auto) Lymph # (Auto) [place] # (Auto) Eos # (Auto) Baso # (Auto) Percent Retic Sodium 132 L Potassium 4.1 Chloride 97 L Carbon Dioxide 26 BUN 69 H Creatinine 2.67 H Estimated GFR 24.0 L BUN/Creatinine Ratio 25.8 H Glucose 127 H Calcium 7.8 L Phosphorus Magnesium Iron TIBC Transferrin Ferritin Total Bilirubin Direct Bilirubin Albumin Lipase Vitamin B12 Folate Discharge Plan Discharge Plan Patient Disposition: Home Discharge orders & Medications Prescriptions: New multivitamin [Tab-A-Isidro] Tablet 1 tab PO DAILY Qty: 90 RF: 1 ferrous gluconate 324 mg (38 mg iron) tablet 324 mg PO BID Qty: 60 RF: 0 amoxicillin-pot clavulanate [Augmentin] 875-125 mg tablet 1 tab PO BID Qty: 20 RF: 0 Continued doxazosin 4 mg Tablet 4 mg PO BEDTIME RF: 0 furosemide 40 mg Tablet 80 mg PO DAILY RF: 0 duloxetine 60 mg capsule,delayed release(DR/EC) 60 mg PO BID RF: 0 polyethylene glycol 3350 17 gram/dose Powder 17 g PO DAILY PRN (Reason: Constipation) RF: 0 silver sulfadiazine [SSD] 1 % cream 1 applic TOPICAL TID RF: 0 lorazepam 0.5 mg tablet 0.5 mg PO TID PRN (Reason: Anxiety) RF: 0 citalopram 20 MG tablet 20 mg PO DAILY RF: 0 glimepiride 1 mg tablet 1 mg PO DAILY RF: 0 lidocaine 5 % adhesive patch,medicated 1 patch TOP DAILY Qty: 30 RF: 0 melatonin 10 mg Tablet 10 mg PO BEDTIME PRN (Reason: insomnia) RF: 0 pantoprazole 40 mg Tablet,Delayed Release (Dr/Ec) 40 mg PO DAILY RF: 0 hydrocodone-acetaminophen 5-325 mg Tablet 1 tab PO DAILY RF: 0 Discontinued cephalexin 500 mg capsule 500 mg PO TID Qty: 30 RF: 0 Follow up/Referrals: Jim Quintana MD [Primary Care Provider] - 08/16/19 (please call for appointment monday) Discharge Health Status Multidrug resistant organism: No MDRO Diet/Activity/Treatments Diet: Diet as Tolerated and Carb-consistent/Diabetic Diet comment: NO ALCOHOL Activity: as tolerated Skin/Wound/Dressing Care Report to your healthcare provider any signs of infection, such as:: chills, fever, night sweats, increased pain and unusual redness Dressing: as per wound care Visit Report/Discharge Packet Instructions: Anemia, DI for Alcohol Abuse, Gastrointestinal Bleeding Visit Report Forms: Patient Portal/API, Stroke Signs & Symptoms Discharge Data Primary Care Provider: Jim Quintana Discharges patient from system. Discharge Date/Time: 08/12/19 12:23
[2019-08-13 10:40] LABS: Calcium 7.2 mg/dL (8.6-10.2); Parathyroid Hormone, Intact 148 pg/mL (15-65)
[2019-08-15 16:36] LABS: 1,25-Dihydroxy, Vitamin D-2 <10 pg/mL (.)
== END 2019-08-12 12:23 | disposition home health service (06) | DRG 603 ==
LOC: ED 08-08 00:59 → AC 08-08 01:13
PROVIDERS: Family Medicine; Student in an Organized Health Care Education/Training Program; Admitting Provider Family Medicine; Emergency Provider Emergency Medicine; PCP Family Medicine; Referring Provider Surgery; Visit Provider Family Medicine
DX: L03.116 Cellulitis of left lower limb (principal); L97.929 Non-pressure chronic ulcer of unspecified part of left lower leg with unspecified severity; N18.4 Chronic kidney disease, stage 4 (severe); N17.9 Acute kidney failure, unspecified; E11.622 Type 2 diabetes mellitus with other skin ulcer; E11.22 Type 2 diabetes mellitus with diabetic chronic kidney disease; I87.8 Other specified disorders of veins; D50.9 Iron deficiency anemia, unspecified; E87.70 Fluid overload, unspecified; E66.9 Obesity, unspecified; Z68.39 Body mass index [BMI] 39.0-39.9, adult; I12.9 Hypertensive chronic kidney disease with stage 1 through stage 4 chronic kidney disease, or unspecified chronic kidney disease; F10.10 Alcohol abuse, uncomplicated; G89.29 Other chronic pain; Z87.891 Personal history of nicotine dependence; Z79.84 Long term (current) use of oral hypoglycemic drugs; Z79.891 Long term (current) use of opiate analgesic; Z87.440 Personal history of urinary (tract) infections
CPT/HCPCS: 36415; 36430; 71045; 80048; 80053; 80320; 81001; 82040; 82247; 82248; 82310; 82607; 82652; 82728; 82746; 82962; 83540; 83550; 83605; 83690; 83735; 83970; 84100; 84145; 84466; 84484; 85014; 85018; 85025; 85045; 85610; 86850; 86900; 86901; 87040; 87086; 93005; 93010; 96365; 96375; 97129; 97162; 97165; 97530; 99285; 99291; 99292; P9016; C9113; J1940; J1956; J2060; J2270; J2543; J3010

== ENCOUNTER → 2019-08-29 10:40 | Outpatient (CLI) | payer MEDICARE, MEDICAID, SELFPAY ==
[2019-01-25 14:14] VITALS: PULSE 56; RESP 16; O2SAT 100
[2019-08-08 02:20] VITALS: BMI 39.8
== END ==
PROVIDERS: PCP Family Medicine; Referring Provider Family Medicine; Visit Provider Family Medicine
DX: I87.2 Venous insufficiency (chronic) (peripheral) (principal); L97.821 Non-pressure chronic ulcer of other part of left lower leg limited to breakdown of skin; F10.20 Alcohol dependence, uncomplicated; R60.0 Localized edema; Z91.14 Patient's other noncompliance with medication regimen; Z91.19 Patient's noncompliance with other medical treatment and regimen; N18.4 Chronic kidney disease, stage 4 (severe); D63.8 Anemia in other chronic diseases classified elsewhere; L24.89 Irritant contact dermatitis due to other agents; N25.81 Secondary hyperparathyroidism of renal origin
CPT/HCPCS: 87070; 87075; 87077; 87186; 87205; 97597; 99214

== ENCOUNTER → 2019-09-05 13:36 | Outpatient (CLI) | payer MEDICARE, MEDICAID, SELFPAY ==
[2019-01-25 14:14] VITALS: PULSE 56; RESP 16; O2SAT 100
[2019-08-08 02:20] VITALS: BMI 39.8
[2019-09-05 15:23] LABS: Add Manual Diff / Slide Review NO; Basophils Absolute Auto 0 /uL (0-100); Basophils Percent Auto 0.3 % (0-2); Eosinophils Absolute Auto 200 /uL (0-450); Eosinophils Percent Auto 2.8 % (2-4); Hematocrit 25.8 % (41-53); Hemoglobin 8.9 g/dL (13.5-17.5); Lymphocytes Absolute Auto 700 /uL (1100-4500); Lymphocytes Percent Auto 8.1 % (25-40); Mean Corpuscular HGB Conc 34.6 % (30-36); Mean Corpuscular Hemoglobin 31.8 PG (26-34); Mean Corpuscular Volume 91.9 fL (80-100); Monocytes Absolute Auto 600 /uL (0-900); Monocytes Percent Auto 7.2 % (3-14); Neutrophils Absolute Auto 7100 /uL (1500-7000); Neutrophils Percent Auto 81.6 % (50-75); Platelet Count 220 X10^3/uL (150-400); Red Cell Distribution Width 14.3 % (11.6-14.8); White Blood Cell Count 8.6 X10^3/uL (4.5-11.0)
[2019-09-05 15:59] LABS: Alanine Aminotransferase 12 IU/L (<50); Albumin 3.9 g/dL (3.5-5.0); Albumin Globulin Ratio 1.2 (1.0-2.8); Alkaline Phosphatase 102 U/L (38-126); Aspartate Aminotransferase 24 IU/L (17-59); BUN Creatinine Ratio 21.9 (6-22); Bilirubin Total 0.5 mg/dL (0.2-1.3); Blood Urea Nitrogen 54 mg/dL (9-20); Calcium 8.2 mg/dL (8.4-10.2); Carbon Dioxide 25 mmol/L (22-32); Chloride 95 mmol/L (98-107); Estimated Glomerular Filt Rate 26.3 mL/min (>60); Globulin 3.3 g/dL (1.7-4.1); Glucose 137 mg/dL (80-110); HEMOLYSIS < 15 (0-50); Potassium 4.2 mmol/L (3.4-5.1); Sodium 133 mmol/L (137-145); Total Protein 7.2 g/dL (6.3-8.2)
[2019-09-05 16:26] LABS: C-Reactive Protein Quant 1.2 mg/dL (<1.0)
[2019-09-05 16:29] LABS: Erythrocyte Sedimentation Rate 72 MM/HR (0-15)
[2019-09-05 16:34] LABS: Ferritin 248 ng/mL (18-464)
[2019-09-05 16:48] LABS: Iron 81 ug/dL (49-181)
== END ==
PROVIDERS: PCP Family Medicine; Referring Provider Internal Medicine; Visit Provider Family Medicine
DX: L08.9 Local infection of the skin and subcutaneous tissue, unspecified (principal); D63.1 Anemia in chronic kidney disease; N18.9 Chronic kidney disease, unspecified
CPT/HCPCS: 36415; 80053; 82728; 83540; 85025; 85651; 86140

== ENCOUNTER → 2019-09-05 13:39 | Outpatient (CLI) | payer MEDICARE, MEDICAID, SELFPAY ==
[2019-01-25 14:14] VITALS: PULSE 56; RESP 16; O2SAT 100
[2019-08-08 02:20] VITALS: BMI 39.8
== END ==
PROVIDERS: PCP Family Medicine; Referring Provider Family Medicine; Visit Provider Family Medicine
DX: I87.2 Venous insufficiency (chronic) (peripheral) (principal); L97.821 Non-pressure chronic ulcer of other part of left lower leg limited to breakdown of skin; F10.20 Alcohol dependence, uncomplicated; R60.0 Localized edema; Z91.14 Patient's other noncompliance with medication regimen; Z91.19 Patient's noncompliance with other medical treatment and regimen; N18.4 Chronic kidney disease, stage 4 (severe); D63.8 Anemia in other chronic diseases classified elsewhere; N25.81 Secondary hyperparathyroidism of renal origin; L03.116 Cellulitis of left lower limb; B96.5 Pseudomonas (aeruginosa) (mallei) (pseudomallei) as the cause of diseases classified elsewhere
CPT/HCPCS: 97597; 99214

== ENCOUNTER 2019-09-06 20:14 | Emergency (ER) | payer MEDICARE, MEDICAID, SELFPAY ==
[2019-01-25 14:14] VITALS: PULSE 56; RESP 16; O2SAT 100
[2019-08-08 02:20] VITALS: BMI 39.8
[2019-09-06 20:22] VITALS: BP 190/86; PULSE 87; O2SAT 96
[2019-09-06 20:23] VITALS: BP 190/86; PULSE 86; RESP 21; TEMP 37.3; O2SAT 96
--- NOTE | 2019-09-06 20:38 | ED_ITS ---
HPI - Extremity Problem General Chief complaint: Extremity Problem,Nontraumatic Stated complaint: states left foot infection Time Seen by Provider: 09/06/19 20:36 Source: patient Mode of arrival: Wheelchair Limitations: no limitations History of Present Illness HPI Narrative: 68-year-old male with multiple medical problems here for evaluation of feeling fatigue and lightheadedness and concerned that potentially the ulcers on his left lower extremity have worsened. He did see wound care yesterday for these ulcers. He states that he did have a culture obtained. States the wound care provider is considering putting a PICC line and starting him on antibiotics but this is yet to be done. He states that earlier today he started to feel somewhat fatigued in weaker. He thinks that this is been happening over the past couple days. No other specific symptoms. He does live alone and states that he wanted to get his leg checked out. Related Data Home Medications Medication Instructions Recorded Confirmed citalopram 20 mg PO DAILY 12/25/17 08/08/19 glimepiride 1 mg PO DAILY 03/22/18 08/08/19 doxazosin 4 mg PO BEDTIME 06/07/18 08/08/19 furosemide 80 mg PO DAILY 09/27/18 08/08/19 duloxetine 60 mg PO BID 09/28/18 08/08/19 polyethylene glycol 3350 17 g PO DAILY PRN 09/28/18 08/08/19 lorazepam 0.5 mg PO TID PRN 11/12/18 08/08/19 silver sulfadiazine [SSD] 1 applic TOPICAL TID 11/12/18 08/09/19 melatonin 10 mg PO BEDTIME PRN 03/10/19 08/09/19 hydrocodone-acetaminophen 1 tab PO DAILY 08/08/19 08/08/19 pantoprazole 40 mg PO DAILY 08/08/19 08/08/19 Previous Rx's Medication Instructions Recorded lidocaine 1 patch TOP DAILY #30 each 12/19/18 ferrous gluconate 324 mg PO BID #60 tab 08/12/19 multivitamin [Tab-A-Isidro] 1 tab PO DAILY #90 tab 08/12/19 Allergies Allergy/AdvReac Type Severity Reaction Status Date / Time latex Allergy Mild IRRITATION Verified 06/13/19 16:39 carisoprodol [From Soma] Allergy Verified 06/13/19 16:39 hydromorphone Allergy Verified 06/13/19 16:39 Sulfa (Sulfonamide AdvReac Mild N&V 1HOUR Verified 06/13/19 16:39 Antibiotics) AFTER RX, THINKS IT IS RELATED Review of Systems Constitutional Constitutional: Denies fever(s), Denies headache(s) and Reports weakness ENT Ears, Nose, Mouth, and Throat: Denies vertigo, Denies dizziness and Denies headache(s) Cardiovascular Cardiovascular: Denies chest pain, Denies lightheadedness and Denies dyspnea Respiratory Respiratory: Denies cough and Denies dyspnea Gastrointestinal Gastrointestinal: Denies abdominal pain, Denies nausea and Denies vomiting Musculoskeletal Musculoskeletal: Denies arthralgias Integumentary/Breasts Skin/Breast: Reports lesions Neurologic Neurologic: Denies abnormal movements, Denies confusion, Denies vertigo, Denies dizziness, Denies headache(s) and Reports weakness Psychiatric Psychiatric: Denies confusion Hematologic/Lymphatic Hematologic/Lymphatic: Denies easy bleeding and Denies easy bruising Patient History Medical History Alcoholism (Chronic) Anemia associated with chronic renal failure (Chronic) Cellulitis of lower leg (Chronic) Chronic kidney disease, stage 4 (severe) (Chronic) Chronic pain (Chronic) Depression (Chronic) Diabetes type 2, controlled (Chronic) Duodenal ulcer (Acute) GI bleed (Resolved) Gout, arthropathy (Chronic) History of cervical fracture (Resolved) Hyperparathyroidism (Chronic) Hypertension (Chronic) Left leg pain (Chronic) Symptomatic anemia (Chronic) Surgical History (Updated 09/03/19 @ 15:25 by Luke Stinson MD) H/O cervical spine surgery (Acute) History of colectomy (Resolved) History of fusion of cervical spine (Chronic) Social History household members: friend(s) and other Smoking Status: Former smoker alcohol intake: current Smoking Status: Former smoker alcohol intake frequency: 0-2 drinks per day Alcohol type: beer Substance Use Type: does not use Exam Initial Vital Signs Initial Vital Signs: Vital Signs Temperature 99.1 F 09/06/19 20:23 Pulse Rate 86 09/06/19 20:23 Respiratory Rate 21 09/06/19 20:23 Blood Pressure 190/86 H 09/06/19 20:23 Pulse Oximetry 96 09/06/19 20:23 Const General: cooperative and comfortable Limitations: mental status not altered HENMT Head: normal to inspection and normocephalic Resp Effort & Inspection: normal respiratory effort Auscultation: clear to auscultation bilaterally Cardio Rate: regular rate Rhythm: regular rhythm Heart Sounds: murmur Skin Other: Patient with redness and ulcers that are weeping on his left lower extremity from just distal to his knee to his left foot. Neuro General: patient alert and patient awake Extrem General: No calf tenderness Psych Appearance: grossly normal and well kempt Course Orders Ordered: ED Orders 09/06/19 21:10 BMP [Basic Metabolic Panel] Stat Complete Blood Count AUTO DIFF Stat Vital Signs Vital signs: Vital Signs - 8 hr 09/06/19 20:23 Temperature 99.1 F Pulse Rate 86 Respiratory Rate 21 Blood Pressure 190/86 H Pulse Oximetry 96 MDM - Extremity (Nontraumatic) Lab Data Attestation: I reviewed the patient's lab results. Result diagrams: 09/06/19 21:10 09/06/19 21:10 Labs: Lab Results 09/06/19 09/06/19 Range/Units 21:10 21:10 WBC 10.6 (4.5-11.0) X10^3/uL RBC 2.53 L (4.5-5.9) X10^6/uL Hgb 7.9 L (13.5-17.5) g/dL Hct 23.1 L (41-53) % MCV 91.6 (80-100) fL MCH 31.1 (26-34) PG MCHC 34.0 (30-36) % RDW 14.7 (11.6-14.8) % Plt Count 207 (150-400) X10^3/uL Neut % (Auto) 75.9 H (50-75) % Lymph % (Auto) 12.0 L (25-40) % [place] % (Auto) 8.3 (3-14) % Eos % (Auto) 3.4 (2-4) % Baso % (Auto) 0.4 (0-2) % Neut # (Auto) 8000 H (5695-4502) /uL Lymph # (Auto) 1300 (0635-1279) /uL [place] # (Auto) 900 (0-900) /uL Eos # (Auto) 400 (0-450) /uL Baso # (Auto) 0 (0-100) /uL Sodium 127 L (137-145) mmol/L Potassium 4.2 (3.4-5.1) mmol/L Chloride 93 L (98-107) mmol/L Carbon Dioxide 23 (22-32) mmol/L BUN 52 H (9-20) mg/dL Creatinine 2.60 H (0.66-1.25) mg/dL Estimated GFR 24.7 L (>60) mL/min BUN/Creatinine Ratio 20.0 (6-22) Glucose 65 L (80-110) mg/dL Calcium 8.0 L (8.4-10.2) mg/dL Point of Care Testing Glucose POC 105 MDM Narrative Medical decision making narrative: Patient states that his left lower extremity today looks just like it did yesterday. Have more suspicion that these are chronic venous stasis/diabetic ulcers and not an infection. Given the fact that his wound care provider is considering starting him on antibiotics and a culture was obtained yesterday I feel that we should wait on starting any antibiotics. I feel that this would complicate the picture for his wound care provider. Patient is somewhat anemic today however is not hypotensive. Not tachycardic. I do not feel that patient warrants a transfusion although I did talk with him about this. Informed him that this could potentially be why he has been somewhat more fatigued. Informed him that he should be re-evaluated at the beginning of next week to make sure his blood counts are not dropping further. I did inform him that he could return to the emergency department or contact his primary provider for this. Patient's kidney function is at baseline. Patient w as hypoglycemic. He was given food. This did increase his blood sugar. This could also be the cause of his worsening fatigue today. He is not on insulin. Patient does have multiple medical problems that all seem to be chronic. Do not feel that there is an emergent condition today. I have low suspicion for CVA. He was given strict return precautions. He expressed understanding and agreemen t. Discharge Plan Departure Patient Disposition: Home Clinical Impression: Hypoglycemia, Ulcer of left lower extremity, limited to breakdown of skin Anemia Qualifiers: Anemia type: unspecified type Qualified Code(s): D64.9 - Anemia, unspecified Chronic kidney disease Qualifiers: Chronic kidney disease stage: unspecified stage Qualified Code(s): N18.9 - Chronic kidney disease, unspecified Instructions: DI for Hypoglycemia Activity Restrictions/Additional Instructions: Continue all of your medications as directed. I do recommend that at the beginning of next week you contact your primary provider about a follow-up to have your blood counts recheck to make sure that you do not become more anemic. Your blood sugar was also low today. I recommend that you check your blood sugars at home and continue with her medications as directed. Keep all of your wound care appointments. Return to the emergency department for any new symptoms. Prescriptions: No Action doxazosin 4 mg Tablet 4 mg PO BEDTIME RF: 0 furosemide 40 mg Tablet 80 mg PO DAILY RF: 0 duloxetine 60 mg capsule,delayed release(DR/EC) 60 mg PO BID RF: 0 polyethylene glycol 3350 17 gram/dose Powder 17 g PO DAILY PRN (Reason: Constipation) RF: 0 silver sulfadiazine [SSD] 1 % cream 1 applic TOPICAL TID RF: 0 lorazepam 0.5 mg tablet 0.5 mg PO TID PRN (Reason: Anxiety) RF: 0 citalopram 20 MG tablet 20 mg PO DAILY RF: 0 glimepiride 1 mg tablet 1 mg PO DAILY RF: 0 lidocaine 5 % adhesive patch,medicated 1 patch TOP DAILY Qty: 30 RF: 0 melatonin 10 mg Tablet 10 mg PO BEDTIME PRN (Reason: insomnia) RF: 0 pantoprazole 40 mg Tablet,Delayed Release (Dr/Ec) 40 mg PO DAILY RF: 0 hydrocodone-acetaminophen 5-325 mg Tablet 1 tab PO DAILY RF: 0 multivitamin [Tab-A-Isidro] Tablet 1 tab PO DAILY Qty: 90 RF: 1 ferrous gluconate 324 mg (38 mg iron) tablet 324 mg PO BID Qty: 60 RF: 0 Referrals: Jim Quintana MD [Primary Care Provider] -
[2019-09-06 21:23] LABS: Add Manual Diff / Slide Review NO; Basophils Absolute Auto 0 /uL (0-100); Basophils Percent Auto 0.4 % (0-2); Eosinophils Absolute Auto 400 /uL (0-450); Eosinophils Percent Auto 3.4 % (2-4); Hematocrit 23.1 % (41-53); Hemoglobin 7.9 g/dL (13.5-17.5); Lymphocytes Absolute Auto 1300 /uL (1100-4500); Mean Corpuscular Hemoglobin 31.1 PG (26-34); Mean Corpuscular Volume 91.6 fL (80-100); Monocytes Absolute Auto 900 /uL (0-900); Monocytes Percent Auto 8.3 % (3-14); Neutrophils Absolute Auto 8000 /uL (1500-7000); Neutrophils Percent Auto 75.9 % (50-75); Platelet Count 207 X10^3/uL (150-400); Red Blood Cell Count 2.53 X10^6/uL (4.5-5.9); Red Cell Distribution Width 14.7 % (11.6-14.8); White Blood Cell Count 10.6 X10^3/uL (4.5-11.0)
[2019-09-06 21:31] LABS: Blood Urea Nitrogen 52 mg/dL (9-20); Carbon Dioxide 23 mmol/L (22-32); Chloride 93 mmol/L (98-107); Estimated Glomerular Filt Rate 24.7 mL/min (>60); Glucose 65 mg/dL (80-110); HEMOLYSIS < 15 (0-50); Potassium 4.2 mmol/L (3.4-5.1); Sodium 127 mmol/L (137-145)
[2019-09-06 22:29] VITALS: O2SAT 95
[2019-09-06 22:30] VITALS: PULSE 93; O2SAT 96
[2019-09-06 22:31] VITALS: BP 161/69
--- NOTE | 2019-09-06 22:31 | PC.NURSE ---
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
[2019-09-06 22:32] VITALS: BP 161/69; PULSE 88; RESP 22; O2SAT 97
== END 2019-09-06 22:43 | disposition home or self-care (01) ==
PROVIDERS: Emergency Provider Emergency Medicine; PCP Family Medicine
DX: E11.621 Type 2 diabetes mellitus with foot ulcer (principal); E11.649 Type 2 diabetes mellitus with hypoglycemia without coma; D64.9 Anemia, unspecified; N18.9 Chronic kidney disease, unspecified
CPT/HCPCS: 36415; 80048; 82962; 85025; 99282; 99283

== ENCOUNTER 2019-09-07 23:07 | Emergency (ER) | payer MEDICARE, MEDICAID, SELFPAY ==
[2019-01-25 14:14] VITALS: PULSE 56; RESP 16; O2SAT 100
[2019-08-08 02:20] VITALS: BMI 39.8
--- NOTE | 2019-09-07 23:13 | ED_ITS ---
HPI - General Adult General Chief complaint: Fall Stated complaint: GLF x 2 Time Seen by Provider: 09/07/19 23:10 Source: patient Mode of arrival: EMS Limitations: no limitations History of Present Illness HPI narrative: 68-year-old male who evaluated the emergency department yesterday for weakness returns stand to the ER today by EMS after he sustained 2 falls today. He states the 1st fall was earlier this morning. There is no injuries. He states that he tripped and fell over. He refused EMS by home health provider that time. This evening he stated that he was trying to transition from the commode that he has in his house when he lost his balance and fell over. He called EMS to bring him into the emergency department. Upon my evaluation patient reports no injuries from the event. He actually states that he feels better that what he did yesterday when he was here in the ER. He has a follow- up with his wound care later this week. He has been taking his medications. Patient stated that he really does not want to be here in the emergency department for the stated that he could not give a direct answer as to why he called EMS to bring him in if he did not want to be here. Related Data Home Medications Medication Instructions Recorded Confirmed citalopram 20 mg PO DAILY 12/25/17 08/08/19 glimepiride 1 mg PO DAILY 03/22/18 08/08/19 doxazosin 4 mg PO BEDTIME 06/07/18 08/08/19 furosemide 80 mg PO DAILY 09/27/18 08/08/19 duloxetine 60 mg PO BID 09/28/18 08/08/19 polyethylene glycol 3350 17 g PO DAILY PRN 09/28/18 08/08/19 lorazepam 0.5 mg PO TID PRN 11/12/18 08/08/19 silver sulfadiazine [SSD] 1 applic TOPICAL TID 11/12/18 08/09/19 melatonin 10 mg PO BEDTIME PRN 03/10/19 08/09/19 hydrocodone-acetaminophen 1 tab PO DAILY 08/08/19 08/08/19 pantoprazole 40 mg PO DAILY 08/08/19 08/08/19 Previous Rx's Medication Instructions Recorded lidocaine 1 patch TOP DAILY #30 each 12/19/18 ferrous gluconate 324 mg PO BID #60 tab 08/12/19 multivitamin [Tab-A-Isidro] 1 tab PO DAILY #90 tab 08/12/19 Allergies Allergy/AdvReac Type Severity Reaction Status Date / Time latex Allergy Mild IRRITATION Verified 06/13/19 16:39 carisoprodol [From Soma] Allergy Verified 06/13/19 16:39 hydromorphone Allergy Verified 06/13/19 16:39 Sulfa (Sulfonamide AdvReac Mild N&V 1HOUR Verified 06/13/19 16:39 Antibiotics) AFTER RX, THINKS IT IS RELATED Review of Systems Constitutional Constitutional: Denies chills, Denies fatigue, Denies fever(s), Reports frequent falls and Denies headache(s) Eyes Eyes: Denies change in vision ENT Ears, Nose, Mouth, and Throat: Denies vertigo, Denies dizziness and Denies headache(s) Cardiovascular Cardiovascular: Denies chest pain, Denies syncope, Denies rapid heart rate and Denies dyspnea Respiratory Respiratory: Denies cough and Denies dyspnea Gastrointestinal Gastrointestinal: Denies abdominal pain and Denies change in bowel habits Musculoskeletal Musculoskeletal: Denies arthralgias, Denies myalgias and Denies tingling Integumentary/Breasts Comments: Chronic wounds left lower extremity Neurologic Neurologic: Denies abnormal speech, Denies behavioral changes, Denies confusion, Denies vertigo, Denies dizziness, Denies syncope, Reports frequent falls, Denies headache(s) and Denies tingling Psychiatric Psychiatric: Denies behavioral changes and Denies confusion Endocrine Endocrine: Denies fatigue Allergic/Immunologic Allergic/Immunologic: Denies urticaria Patient History Medical History Alcoholism (Chronic) Anemia associated with chronic renal failure (Chronic) Cellulitis of lower leg (Chronic) Chronic kidney disease, stage 4 (severe) (Chronic) Chronic pain (Chronic) Depression (Chronic) Diabetes type 2, controlled (Chronic) Duodenal ulcer (Acute) GI bleed (Resolved) Gout, arthropathy (Chronic) History of cervical fracture (Resolved) Hyperparathyroidism (Chronic) Hypertension (Chronic) Left leg pain (Chronic) Symptomatic anemia (Chronic) Surgical History H/O cervical spine surgery (Acute) History of colectomy (Resolved) History of fusion of cervical spine (Chronic) Social History household members: friend(s) and other Smoking Status: Former smoker alcohol intake: current Smoking Status: Former smoker alcohol intake frequency: 0-2 drinks per day Alcohol type: beer Substance Use Type: does not use Exam Initial Vital Signs Initial Vital Signs: Vital Signs Temperature 99.0 F 09/07/19 23:14 Pulse Rate 86 09/07/19 23:14 Respiratory Rate 32 H 09/07/19 23:14 Blood Pressure 186/86 H 09/07/19 23:14 Pulse Oximetry 96 09/07/19 23:14 Const General: cooperative and comfortable Limitations: mental status not altered HENMT Head: normal to inspection and normocephalic Resp Effort & Inspection: normal respiratory effort Auscultation: clear to auscultation bilaterally Cardio Rate: regular rate Rhythm: regular rhythm Skin Other: Patient has the bandage around his left lower extremity that we placed approximately 24 hours ago. Neuro General: patient alert, patient awake and patient oriented x3 Cranial Nerves: CN's II-XI intact bilaterally Cognition: normal cognition Speech: speech normal Motor: muscle tone normal throughout Extrem General: normal to inspection and capillary refill normal Psych Appearance: grossly normal and well kempt Scores GCS Emi coma scale eye opening: Spontaneous Emi coma scale verbal response: Orientated [place] coma scale motor response: Obey commands Emi coma scale total score: 15 Course Orders Ordered: ED Orders 09/07/19 23:05 Complete Blood Count AUTO DIFF Stat Comprehensive Metabolic Panel Stat Lipase Stat Procalcitonin Stat Troponin I Stat 09/07/19 23:15 RT Consult Eval and Treat Now 09/07/19 23:21 EKG-12 Lead Stat 09/07/19 23:30 XR chest 1V Stat Lactate (Lactic Acid) Stat Type and Screen Stat 09/07/19 23:40 Urine Microscopic Stat 09/08/19 00:12 NT-proBNP (BNP-Adult 18+) Stat Vital Signs Vital signs: Vital Signs - 8 hr 09/07/19 23:14 09/07/19 23:19 09/07/19 23:30 Temperature 99.0 F 99.0 F Pulse Rate 86 87 90 Respiratory Rate 32 H 30 H Blood Pressure 186/86 H 186/89 H Pulse Oximetry 96 96 95 09/07/19 23:31 09/08/19 00:00 09/08/19 00:01 Temperature Pulse Rate 90 90 88 Respiratory Rate Blood Pressure 186/88 H 178/81 H Pulse Oximetry 95 09/08/19 00:30 Temperature Pulse Rate 85 Respiratory Rate 30 H Blood Pressure 191/86 H Pulse Oximetry 96 Medical Decision Making Medical Records Medical records reviewed: Yes I reviewed the patient's medical records. Lab Data Lab results reviewed: Yes I reviewed the patient's lab results. Result diagrams: 09/07/19 23:05 09/07/19 23:05 Labs: Lab Results 09/07/19 09/07/19 09/07/19 Range/Units 23:05 23:05 23:05 WBC 12.9 H (4.5-11.0) X10^3/uL RBC 2.66 L (4.5-5.9) X10^6/uL Hgb 8.2 L (13.5-17.5) g/dL Hct 24.4 L (41-53) % MCV 91.6 (80-100) fL MCH 30.9 (26-34) PG MCHC 33.7 (30-36) % RDW 14.4 (11.6-14.8) % Plt Count 237 (150-400) X10^3/uL Neut % (Auto) 81.9 H (50-75) % Lymph % (Auto) 7.9 L (25-40) % Mill[place] % (Auto) 7.0 (3-14) % Eos % (Auto) 2.2 (2-4) % Baso % (Auto) 1.0 (0-2) % Neut # (Auto) 40993 H (0850-5877) /uL Lymph # (Auto) 1000 L (1453-7260) /uL Millard # (Auto) 900 (0-900) /uL Eos # (Auto) 300 (0-450) /uL Baso # (Auto) 100 (0-100) /uL Sodium 121 L (137-145) mmol/L Potassium 4.6 (3.4-5.1) mmol/L Chloride 88 L (98-107) mmol/L Carbon Dioxide 20 L (22-32) mmol/L BUN 50 H (9-20) mg/dL Creatinine 2.22 H (0.66-1.25) mg/dL Estimated GFR 29.7 L (>60) mL/min BUN/Creatinine Ratio 22.5 H (6-22) Glucose 86 (80-110) mg/dL Lactate (0.7-2.1) mmol/L Calcium 7.8 L (8.4-10.2) mg/dL Total Bilirubin 0.6 (0.2-1.3) mg/dL AST 44 (17-59) IU/L ALT 13 (<50) IU/L Alkaline Phosphatase 87 (38-126) U/L Troponin I 0.033 (0.01-0.034) ng/mL NT-Pro-B Natriuret Pep (<125) pg/mL Total Protein 7.3 (6.3-8.2) g/dL Albumin 3.9 (3.5-5.0) g/dL Globulin 3.4 (1.7-4.1) g/dL Albumin/Globulin Ratio 1.1 (1.0-2.8) Lipase 70 (23-300) U/L Procalcitonin 0.09 (<0.5) ng/mL Urine RBC (0-5/HPF) Urine WBC (0-5/HPF) Urine Bacteria (None) Ur Culture Indicated? COVID-19 PCR (Negative) Blood Type Antibody Screen 09/07/19 09/07/19 09/07/19 Range/Units 23:05 23:17 23:30 WBC (4.5-11.0) X10^3/uL RBC (4.5-5.9) X10^6/uL Hgb (13.5-17.5) g/dL Hct (41-53) % MCV (80-100) fL MCH (26-34) PG MCHC (30-36) % RDW (11.6-14.8) % Plt Count (150-400) X10^3/uL Neut % (Auto) (50-75) % Lymph % (Auto) (25-40) % [place] % (Auto) (3-14) % Eos % (Auto) (2-4) % Baso % (Auto) (0-2) % Neut # (Auto) (2882-7996) /uL Lymph # (Auto) (2469-2978) /uL Millard # (Auto) (0-900) /uL Eos # (Auto) (0-450) /uL Baso # (Auto) (0-100) /uL Sodium (137-145) mmol/L Potassium (3.4-5.1) mmol/L Chloride (98-107) mmol/L Carbon Dioxide (22-32) mmol/L BUN (9-20) mg/dL Creatinine (0.66-1.25) mg/dL Estimated GFR (>60) mL/min BUN/Creatinine Ratio (6-22) Glucose (80-110) mg/dL Lactate 1.5 (0.7-2.1) mmol/L Calcium (8.4-10.2) mg/dL Total Bilirubin (0.2-1.3) mg/dL AST (17-59) IU/L ALT (<50) IU/L Alkaline Phosphatase (38-126) U/L Troponin I (0.01-0.034) ng/mL NT-Pro-B Natriuret Pep 1260 H (<125) pg/mL Total Protein (6.3-8.2) g/dL Albumin (3.5-5.0) g/dL Globulin (1.7-4.1) g/dL Albumin/Globulin Ratio (1.0-2.8) Lipase (23-300) U/L Procalcitonin (<0.5) ng/mL Urine RBC (0-5/HPF) Urine WBC (0-5/HPF) Urine Bacteria (None) Ur Culture Indicated? COVID-19 PCR Negative (Negative) Blood Type Antibody Screen 09/07/19 09/07/19 Range/Units 23:30 23:40 WBC (4.5-11.0) X10^3/uL RBC (4.5-5.9) X10^6/uL Hgb (13.5-17.5) g/dL Hct (41-53) % MCV (80-100) fL MCH (26-34) PG MCHC (30-36) % RDW (11.6-14.8) % Plt Count (150-400) X10^3/uL Neut % (Auto) (50-75) % Lymph % (Auto) (25-40) % [place] % (Auto) (3-14) % Eos % (Auto) (2-4) % Baso % (Auto) (0-2) % Neut # (Auto) (1612-4327) /uL Lymph # (Auto) (5688-8709) /uL Millard # (Auto) (0-900) /uL Eos # (Auto) (0-450) /uL Baso # (Auto) (0-100) /uL Sodium (137-145) mmol/L Potassium (3.4-5.1) mmol/L Chloride (98-107) mmol/L Carbon Dioxide (22-32) mmol/L BUN (9-20) mg/dL Creatinine (0.66-1.25) mg/dL Estimated GFR (>60) mL/min BUN/Creatinine Ratio (6-22) Glucose (80-110) mg/dL Lactate (0.7-2.1) mmol/L Calcium (8.4-10.2) mg/dL Total Bilirubin (0.2-1.3) mg/dL AST (17-59) IU/L ALT (<50) IU/L Alkaline Phosphatase (38-126) U/L Troponin I (0.01-0.034) ng/mL NT-Pro-B Natriuret Pep (<125) pg/mL Total Protein (6.3-8.2) g/dL Albumin (3.5-5.0) g/dL Globulin (1.7-4.1) g/dL Albumin/Globulin Ratio (1.0-2.8) Lipase (23-300) U/L Procalcitonin (<0.5) ng/mL Urine RBC 0-1/hpf (0-5/HPF) Urine WBC 0-1/hpf (0-5/HPF) Urine Bacteria None seen (None) Ur Culture Indicated? Cult not indicated COVID-19 PCR (Negative) Blood Type O Positive Antibody Screen Negative Urine Dip Bedside Urine Glucose Negative Bedside Urine Bilirubin - Negative Bedside Urine Ketone - Negative Urine Specific [place] 1.01 Bedside Urine Occult Blood + Bedside Urine pH 5.5 Bedside Urine Protein + 30 Bedside Urine Urobilinogen - Negative Bedside Urine Nitrite - Negative Bedside Urine Leukocytes - Negative Esterase Point of care testing: Urine Dip Bedside Urine Glucose Negative Bedside Urine Bilirubin - Negative Bedside Urine Ketone - Negative Urine Specific [place] 1.01 Bedside Urine Occult Blood + Bedside Urine pH 5.5 Bedside Urine Protein + 30 Bedside Urine Urobilinogen - Negative Bedside Urine Nitrite - Negative Bedside Urine Leukocytes - Negative Esterase Imaging Data Chest x-ray: Attestation: I personally reviewed and interpreted this imaging study as follows: My Impression: No pneumonia, no pneumothorax ECG Data Attestation: I personally reviewed and interpreted this ECG as follows: Prior ECG tracings: not available for review Interpretation: Sinus rhythm Ventricular rate 91 Normal axis Normal QRS Normal QTC No ST T wave changes MDM Narrative Medical decision making narrative: Patient arrived by EMS. He is alert and oriented x3. GCS of 15. Not clinically intoxicated. My bed and has the capacity to make decisions. He states that he is not sure why he is here in the emergency department although he was the 1 who contacted EMS he stated that he really did not want to be here. Reports no injuries from the fall. This does appear to be a mechanical fall. Patient did have a slight temperature upon arrival and according to nurse during triage had some bilateral wheezing which I did not appreciate on my exam. He is covered was negative. Chest x-ray is unremarkable. He does have electrolyte abnormalities today. He does have a low sodium. His anemia is slightly better than what it was yesterday. Today he had does have a leukocytosis which he did not have yesterday. Review of the culture that was taken from his left lower extremity does show scant Pseudomonas growth. Had a long discussion with the patient regarding his symptoms. We did discuss the findings of the laboratory results today. Patient stated that he did not want to stay in the hospital. He stated that he did not want to be admitted. He did not want to be in the emergency department any longer. We did discuss the risks of a low-sodium to include seizures/. We also discussed that the potential infection in his left lower extremity which could potentially be causing his weakness over the past couple days requires IV antibiotics. He stated that he understood all this and still did not want to stay in the ER. I informed him that unfortunately I was unable to set up any outpatient treatment for him. Again he expressed understanding and wanted to go home. He did sign Against Medical Advice paperwork. He was informed that he could return to the emergency department at any point if he felt like his symptoms were worsening and I encouraged him to do this. He expressed understanding and agreement. Discharge Plan Departure Patient Disposition: Left Against Medical Advice Clinical Impression: Hyponatremia Anemia Qualifiers: Anemia type: unspecified type Qualified Code(s): D64.9 - Anemia, unspecified Cellulitis Qualifiers: Site of cellulitis: unspecified site Qualified Code(s): L03.90 - Cellulitis, unspecified Discharge Date/Time: 09/08/19 01:49 Instructions: How to Prevent Falls Activity Restrictions/Additional Instructions: Despite our discussion today regarding your electrolyte issues to include a low sodium which if this gets worse can lead to seizures/ and also a discussion regarding the possible infection in your left leg that would require IV antibiotics that if this gets worse can lead to a severe illness and potentially you have decided to go home and follow-up with your primary provider and also your wound care provider. Please continue all of your medications as directed. I recommend that you limited your water intake over the next couple days. Also you can eat a high sodium diet for the next couple days to increase the sodium in your blood. You can return to the emergency department at any point for new or worsening symptoms or to complete her workup. Prescriptions: No Action doxazosin 4 mg Tablet 4 mg PO BEDTIME RF: 0 furosemide 40 mg Tablet 80 mg PO DAILY RF: 0 duloxetine 60 mg capsule,delayed release(DR/EC) 60 mg PO BID RF: 0 polyethylene glycol 3350 17 gram/dose Powder 17 g PO DAILY PRN (Reason: Constipation) RF: 0 silver sulfadiazine [SSD] 1 % cream 1 applic TOPICAL TID RF: 0 lorazepam 0.5 mg tablet 0.5 mg PO TID PRN (Reason: Anxiety) RF: 0 citalopram 20 MG tablet 20 mg PO DAILY RF: 0 glimepiride 1 mg tablet 1 mg PO DAILY RF: 0 lidocaine 5 % adhesive patch,medicated 1 patch TOP DAILY Qty: 30 RF: 0 melatonin 10 mg Tablet 10 mg PO BEDTIME PRN (Reason: insomnia) RF: 0 pantoprazole 40 mg Tablet,Delayed Release (Dr/Ec) 40 mg PO DAILY RF: 0 hydrocodone-acetaminophen 5-325 mg Tablet 1 tab PO DAILY RF: 0 multivitamin [Tab-A-Isidro] Tablet 1 tab PO DAILY Qty: 90 RF: 1 ferrous gluconate 324 mg (38 mg iron) tablet 324 mg PO BID Qty: 60 RF: 0 Referrals: Jim Quintana MD [Primary Care Provider] - Stand Alone Forms: Against Medical Advice
[2019-09-07 23:14] VITALS: BP 186/86; PULSE 86; RESP 32; TEMP 37.2; O2SAT 96
[2019-09-07 23:19] VITALS: BP 186/89; PULSE 87; RESP 30; TEMP 37.2; O2SAT 96
[2019-09-07 23:27] LABS: Add Manual Diff / Slide Review NO; Basophils Absolute Auto 100 /uL (0-100); Eosinophils Absolute Auto 300 /uL (0-450); Eosinophils Percent Auto 2.2 % (2-4); Hematocrit 24.4 % (41-53); Hemoglobin 8.2 g/dL (13.5-17.5); Lymphocytes Absolute Auto 1000 /uL (1100-4500); Lymphocytes Percent Auto 7.9 % (25-40); Mean Corpuscular HGB Conc 33.7 % (30-36); Mean Corpuscular Hemoglobin 30.9 PG (26-34); Mean Corpuscular Volume 91.6 fL (80-100); Monocytes Absolute Auto 900 /uL (0-900); Neutrophils Absolute Auto 10600 /uL (1500-7000); Neutrophils Percent Auto 81.9 % (50-75); Platelet Count 237 X10^3/uL (150-400); Red Blood Cell Count 2.66 X10^6/uL (4.5-5.9); Red Cell Distribution Width 14.4 % (11.6-14.8); White Blood Cell Count 12.9 X10^3/uL (4.5-11.0)
[2019-09-07 23:30] VITALS: PULSE 90; O2SAT 95
--- NOTE | 2019-09-07 23:30 | DI.RAD.S_ITS ---
PROCEDURE: XR CHEST 1V INDICATIONS: Eval for pneumonia TECHNIQUE: One view of the chest was acquired. COMPARISON: None. FINDINGS: Surgical changes and devices: Multilevel cervical fusion and thoracolumbar fusion Lungs and pleura: Lungs are clear. No pleural effusions or pneumothorax. Mediastinum: Mediastinal contours appear normal. Unchanged cardiomegaly. Bones and chest wall: No suspicious bony lesions. Overlying soft tissues appear unremarkable. IMPRESSION: Cardiomegaly. No evidence acute pulmonary process. Dictated by: Quinn Alexander M.D. on 09/08/2019 at 7:07 Approved by: Quinn Alexander M.D. on 09/08/2019 at 7:10
[2019-09-07 23:31] VITALS: BP 186/88; PULSE 90; O2SAT 95
[2019-09-07 23:40] LABS: Alanine Aminotransferase 13 IU/L (<50); Albumin 3.9 g/dL (3.5-5.0); Albumin Globulin Ratio 1.1 (1.0-2.8); Alkaline Phosphatase 87 U/L (38-126); Aspartate Aminotransferase 44 IU/L (17-59); BUN Creatinine Ratio 22.5 (6-22); Bilirubin Total 0.6 mg/dL (0.2-1.3); Blood Urea Nitrogen 50 mg/dL (9-20); Calcium 7.8 mg/dL (8.4-10.2); Carbon Dioxide 20 mmol/L (22-32); Chloride 88 mmol/L (98-107); Estimated Glomerular Filt Rate 29.7 mL/min (>60); Globulin 3.4 g/dL (1.7-4.1); Glucose 86 mg/dL (80-110); Lipase 70 U/L (23-300); Sodium 121 mmol/L (137-145); Total Protein 7.3 g/dL (6.3-8.2)
[2019-09-07 23:42] LABS: HEMOLYSIS 81 (0-50)
[2019-09-07 23:44] LABS: Potassium 4.6 mmol/L (3.4-5.1)
[2019-09-07 23:47] LABS: Bacteria Urine None Seen
[2019-09-07 23:50] LABS: Lactate (Lactic Acid) 1.5 mmol/L (0.7-2.1)
[2019-09-07 23:52] LABS: Troponin I 0.033 ng/mL (0.01-0.034)
[2019-09-07 23:56] LABS: Procalcitonin 0.09 ng/mL (<0.5)
[2019-09-07 23:59] LABS: Culture Indicated Urine Cult Not Indicated; RBC Urine 0-1/HPF (0-5/HPF); WBC Urine 0-1/HPF (0-5/HPF)
[2019-09-08] VITALS: PULSE 90
[2019-09-08 00:01] VITALS: BP 178/81; PULSE 88
--- NOTE | 2019-09-08 00:27 | PC.NURSE ---
Pt yelling HELLO from room multiple times. call roew given and at side. states hes uncomfortable and wants to go home states he doesn't understand why its taking so long. advised pt he has been here for 1hr and 20 min. pt refusing to keep mask on. given multiple new masks after pt repeatedly ripped mask ear strings off. Agitiated and pulling off engine monitor. Dr Bal aware and in to speak to patient.
[2019-09-08 00:30] VITALS: BP 191/86; PULSE 85; RESP 30; O2SAT 96
[2019-09-08 00:36] LABS: NT-proBNP (BNP-Adult 18+) 1260 pg/mL (<125)
[2019-09-08 00:36] LABS: COVID19 -Nasal RAPID Negative (Negative)
== END 2019-09-08 01:49 | disposition left against medical advice (07) ==
PROVIDERS: Emergency Provider Emergency Medicine; PCP Family Medicine
DX: E87.1 Hypo-osmolality and hyponatremia (principal); D64.9 Anemia, unspecified; L03.90 Cellulitis, unspecified; R29.6 Repeated falls; R06.2 Wheezing; R50.9 Fever, unspecified
CPT/HCPCS: 36415; 71045; 80053; 81003; 81015; 83605; 83690; 83880; 84145; 84484; 85025; 86850; 86900; 86901; 87635; 93005; 93010; 99284

== ENCOUNTER → 2019-09-09 12:06 | Outpatient (CLI) | payer MEDICARE, MEDICAID, SELFPAY ==
[2019-01-25 14:14] VITALS: PULSE 56; RESP 16; O2SAT 100
[2019-08-08 02:20] VITALS: BMI 39.8
--- NOTE | 2019-09-09 | DI.RAD.S_ITS ---
PROCEDURE: FL GUIDED PICC PLACEMENT INDICATIONS: Chronic kidney disease, stage 4 (severe) COMPARISON: None. FINDINGS: PICC was placed by the intravenous therapy team from the right side. Fluoroscopic spot film demonstrates the tip of PICC projecting to the area of distal SVC area. IMPRESSION: Tip of PICC projects to the area of distal SVC area Dictated by: Tony Carrillo M.D. on 09/09/2019 at 13:59 Approved by: Tony Carrillo M.D. on 09/09/2019 at 13:59
== END ==
PROVIDERS: PCP Family Medicine; Referring Provider Family Medicine; Visit Provider Family Medicine
DX: Z45.2 Encounter for adjustment and management of vascular access device (principal); N18.4 Chronic kidney disease, stage 4 (severe)
CPT/HCPCS: 36573; 76000

== ENCOUNTER 2019-09-10 18:07 | Inpatient (IN) | payer MEDICARE, MEDICAID, SELFPAY ==
[2019-01-25 14:14] VITALS: PULSE 56; RESP 16; O2SAT 100
[2019-08-08 02:20] VITALS: BMI 39.8
[2019-09-10] VITALS (8 sets, daily range): BP systolic 128–139; BP diastolic 60–74; PULSE 86–97; RESP 18–24; TEMP 36.4–37.2; O2SAT 96–98; BMI 37.6
--- NOTE | 2019-09-10 18:31 | DI.RAD.S_ITS ---
PROCEDURE: XR TIBIA FUBULA RT 2V INDICATIONS: Right leg pain TECHNIQUE: 2 views of the tibia and fibula were acquired. COMPARISON: None. FINDINGS: Bones: No fractures or dislocations. Deformity of remote posterior malleolar fracture. The arthroplasty components are in place without evidence of hardware loosening. No suspicious bony lesions. Soft tissues: No suspicious soft tissue calcifications or masses. Heavy vascular calcification. IMPRESSION: Intact right tibia and fibula. Dictated by: Rahel Comer M.D. on 09/10/2019 at 19:34 Approved by: Rahel Comer M.D. on 09/10/2019 at 19:37
[2019-09-10] MEDS: HYDROMORPHONE 1 MG INJ IV (18:53)
[2019-09-10 19:14] LABS: Add Manual Diff / Slide Review NO; Basophils Absolute Auto 0 /uL (0-100); Basophils Percent Auto 0.3 % (0-2); Eosinophils Absolute Auto 400 /uL (0-450); Eosinophils Percent Auto 3.7 % (2-4); Hematocrit 23.5 % (41-53); Hemoglobin 7.9 g/dL (13.5-17.5); Lymphocytes Absolute Auto 700 /uL (1100-4500); Lymphocytes Percent Auto 5.8 % (25-40); Mean Corpuscular HGB Conc 33.7 % (30-36); Mean Corpuscular Hemoglobin 31.2 PG (26-34); Mean Corpuscular Volume 92.6 fL (80-100); Monocytes Absolute Auto 900 /uL (0-900); Monocytes Percent Auto 7.6 % (3-14); Neutrophils Absolute Auto 9400 /uL (1500-7000); Neutrophils Percent Auto 82.6 % (50-75); Platelet Count 245 X10^3/uL (150-400); Red Blood Cell Count 2.53 X10^6/uL (4.5-5.9); Red Cell Distribution Width 14.8 % (11.6-14.8); White Blood Cell Count 11.4 X10^3/uL (4.5-11.0)
[2019-09-10] MEDS: MORPHINE 4 MG/ML INJ IV ×2 (19:17→20:36)
[2019-09-10 19:21] LABS: INR 0.9 (0.9-1.3); Prothrombin Time 10.8 SECONDS (10.1-12.7)
[2019-09-10 19:26] LABS: Alanine Aminotransferase 18 IU/L (<50); Albumin 3.7 g/dL (3.5-5.0); Albumin Globulin Ratio 1.2 (1.0-2.8); Alkaline Phosphatase 107 U/L (38-126); Aspartate Aminotransferase 40 IU/L (17-59); BUN Creatinine Ratio 25.7 (6-22); Bilirubin Total 0.4 mg/dL (0.2-1.3); Blood Urea Nitrogen 61 mg/dL (9-20); Calcium 8.2 mg/dL (8.4-10.2); Carbon Dioxide 26 mmol/L (22-32); Chloride 95 mmol/L (98-107); Estimated Glomerular Filt Rate 27.5 mL/min (>60); Globulin 3.1 g/dL (1.7-4.1); Glucose 160 mg/dL (80-110); HEMOLYSIS < 15 (0-50); Potassium 4.8 mmol/L (3.4-5.1); Sodium 129 mmol/L (137-145); Total Protein 6.8 g/dL (6.3-8.2)
--- NOTE | 2019-09-10 19:28 | ED.EXTPRO ---
HPI - Extremity Problem General Chief complaint: Extremity Problem,Nontraumatic Stated complaint: right leg pain, known infection Time Seen by Provider: 09/10/19 18:17 Source: patient Mode of arrival: Ambulatory Limitations: no limitations History of Present Illness HPI Narrative: The patient is diabetic with a peripheral neuropathy. He is currently under treatment for ulcers in both lower extremities. He has bandages on the ulcers. He fell asleep in his wheelchair yesterday. He presents now with severe pain to the right tibia area. He already has numbness in both lower extremities, there is no change in the numbness. There is erythema of both lower extremities, with multiple ulcers, he has had no change that since. He has a PICC line in place. Wound care has started him on Cefepime. A recent left leg culture grew Pseudomonas aeruginosa. The patient has no fever or chills. He has been seen by wound care regularly. He is unaware of any significant change in the clinical findings on the lower extremities. Related Data Home Medications Medication Instructions Recorded Confirmed citalopram 20 mg PO DAILY 12/25/17 08/08/19 glimepiride 1 mg PO DAILY 03/22/18 08/08/19 doxazosin 4 mg PO BEDTIME 06/07/18 08/08/19 furosemide 80 mg PO DAILY 09/27/18 08/08/19 duloxetine 60 mg PO BID 09/28/18 08/08/19 polyethylene glycol 3350 17 g PO DAILY PRN 09/28/18 08/08/19 lorazepam 0.5 mg PO TID PRN 11/12/18 08/08/19 silver sulfadiazine [SSD] 1 applic TOPICAL TID 11/12/18 08/09/19 melatonin 10 mg PO BEDTIME PRN 03/10/19 08/09/19 hydrocodone-acetaminophen 1 tab PO DAILY 08/08/19 08/08/19 pantoprazole 40 mg PO DAILY 08/08/19 08/08/19 Previous Rx's Medication Instructions Recorded lidocaine 1 patch TOP DAILY #30 each 12/19/18 ferrous gluconate 324 mg PO BID #60 tab 08/12/19 multivitamin [Tab-A-Isidro] 1 tab PO DAILY #90 tab 08/12/19 Allergies Allergy/AdvReac Type Severity Reaction Status Date / Time latex Allergy Mild IRRITATION Verified 06/13/19 16:39 carisoprodol [From Soma] Allergy Verified 06/13/19 16:39 hydromorphone Allergy Verified 06/13/19 16:39 Sulfa (Sulfonamide AdvReac Mild N&V 1HOUR Verified 06/13/19 16:39 Antibiotics) AFTER RX, THINKS IT IS RELATED Review of Systems Review of Systems ROS Unobtainable: All systems reviewed & are unremarkable except as noted in HPI and below Constitutional Constitutional: Denies chills, Denies fever(s), Reports lethargy and Denies weakness ENT Ears, Nose, Mouth, and Throat: Denies change in voice, Denies neck pain and Denies sore throat Cardiovascular Cardiovascular: Denies chest pain, Denies irregular heart rhythm, Denies lightheadedness, Denies dyspnea and Denies orthopnea Respiratory Respiratory: Denies cough, Denies dyspnea and Denies wheezing Gastrointestinal Gastrointestinal: Denies abdominal pain, Denies change in bowel habits, Denies diarrhea, Denies nausea and Denies vomiting Genitourinary Comments: No urinary complaints. Musculoskeletal Musculoskeletal: Denies back pain and Denies neck pain Comments: Right leg pain, see HPI Integumentary/Breasts Skin/Breast: Denies pruritus, Denies erythema, Denies rash and Denies wounds Comments: Bilateral lower extremity ulcers, see HPI Neurologic Neurologic: Denies confusion and Denies weakness Comments: Diabetic neuropathy both lower extremities. No acute motor deficits. Psychiatric Psychiatric: Denies anxiety and Denies confusion Allergic/Immunologic Allergic/Immunologic: Denies wheezing Patient History Medical History Alcoholism (Chronic) Anemia associated with chronic renal failure (Chronic) Cellulitis of lower leg (Chronic) Chronic kidney disease, stage 4 (severe) (Chronic) Chronic pain (Chronic) Depression (Chronic) Diabetes type 2, controlled (Chronic) Duodenal ulcer (Acute) GI bleed (Resolved) Gout, arthropathy (Chronic) History of cervical fracture (Resolved) Hyperparathyroidism (Chronic) Hypertension (Chronic) Left leg pain (Chronic) Symptomatic anemia (Chronic) Surgical History H/O cervical spine surgery (Acute) History of colectomy (Resolved) History of fusion of cervical spine (Chronic) Social History household members: friend(s) and other Smoking Status: Former smoker alcohol intake: current Smoking Status: Former smoker alcohol intake frequency: 0-2 drinks per day Alcohol type: beer Substance Use Type: does not use Exam Initial Vital Signs Initial Vital Signs: Vital Signs Temperature 98.9 F 09/10/19 18:45 Const General: cooperative and well developed Nutritional Appearance: well nourished HENCA Throat: posterior oropharynx normal Eyes Conjunctivae: conjunctivae normal Sclera: sclerae normal Neck Neck: No JVD Chest Chest: normal inspection of the chest Resp Effort & Inspection: normal respiratory effort and able to speak in complete sentences Auscultation: clear to auscultation bilaterally, no rales, no rhonchi and no wheezes Cardio Rate: regular rate Rhythm: regular rhythm Heart Sounds: S1 normal, S2 normal, no click, no gallops, no murmurs and no rubs Pulses: normal peripheral pulses GI Inspection: non-distended and obesity Palpation: soft, no hepatosplenomegaly and No tender Auscultation: normal bowel sounds Back/Spine/Pelvis Back: No CVA tenderness Skin Other: Stasis dermatitis changes to both lower extremities. Multiple shallow ulcers to the right tib-fib area. Ulcer to the left lateral lower extremity. Apparently discharge. Erythema with warmth throughout the left tib-fib area. Edema to both lower extremities. No erythema on the feet. Neuro General: patient alert, patient oriented x3, gait normal and no focal motor deficits Speech: speech normal Other: Light touch deficit both lower extremities. Extrem General: full ROM and no calf tenderness Other: Edema both lower extremities. Stasis dermatitis changes bilaterally, superficial ulcers to the right lower extremity. The left lower extremity reveals significant more intense erythema with warmth, and purulent discharge from a ulcer to the left lateral leg. No erythema to the feet. Diminished dorsalis pedis pulses. Capillary refill is 3 seconds bilaterally. Course Course Course Narrative: The patient is diabetic with decreased renal function. He has stasis dermatitis changes and edema to both lower extremities, as well as diabetic neuropathy. Arterial ultrasound 2019 showed no critical lower extremity blockage. He is currently receiving IV cefepime for the left leg ulcer, culture revealed Pseudomonas aeruginosa. No x-rays or further evaluation of the site was obviously obtained. I discussed the case with the on-call physician covering this patient, Dr. Schaefer. Dr. Schaefer agreed to admission. Cultures were repeated of the lower extremities. Blood culture obtained. He was given a dose of Unasyn after consultation with the admitting physician. Orders Ordered: ED Orders 09/10/19 18:25 Wound Culture and Gram Stain Stat 09/10/19 18:31 XR tibia fibula RT 2V Stat 09/10/19 19:04 Complete Blood Count AUTO DIFF Stat Comprehensive Metabolic Panel Stat Ethanol (ETOH) Stat Prothrombin Time INR Stat 09/10/19 19:25 Blood Culture Stat 09/10/19 20:05 XR tibia fibula LT 2V Stat Discontinued Medications Acetaminophen (Tylenol) 975 mg PO NOW ONE Stop: 09/10/19 20:28 Last Admin: 09/10/19 20:37 Dose: 975 mg Documented by: EMILY Hydromorphone HCl (Dilaudid) 1 mg IV NOW ONE Stop: 09/10/19 18:46 Last Admin: 09/10/19 19:11 Dose: Not Given Documented by: EMILY Ampicillin Sodium/Sulbactam (Sodium 3 gm/ Sodium Chloride) 100 mls @ 100 mls/hr IV NOW ONE Stop: 09/10/19 20:24 Last Admin: 09/10/19 20:35 Dose: 100 mls/hr Documented by: EMILY Morphine Sulfate (Morphine) 4 mg IV NOW ONE Stop: 09/10/19 19:12 Last Admin: 09/10/19 19:17 Dose: 4 mg Documented by: EMILY Morphine Sulfate (Morphine) 4 mg IV NOW ONE Stop: 09/10/19 20:27 Last Admin: 09/10/19 20:36 Dose: 4 mg Documented by: EMILY Vital Signs Vital signs: Vital Signs - 8 hr 09/10/19 18:45 09/10/19 19:07 09/10/19 19:30 Temperature 98.9 F Pulse Rate 89 86 Blood Pressure Pulse Oximetry 98 96 09/10/19 19:43 09/10/19 19:45 09/10/19 20:00 Temperature Pulse Rate 92 H Blood Pressure 128/62 132/60 Pulse Oximetry 96 MDM - Extremity (Nontraumatic) Lab Data Result diagrams: 09/10/19 19:04 09/10/19 19:04 Labs: Lab Results 09/10/19 09/10/19 09/10/19 Range/Units 19:04 19:04 19:04 WBC 11.4 H (4.5-11.0) X10^3/uL RBC 2.53 L (4.5-5.9) X10^6/uL Hgb 7.9 L (13.5-17.5) g/dL Hct 23.5 L (41-53) % MCV 92.6 (80-100) fL MCH 31.2 (26-34) PG MCHC 33.7 (30-36) % RDW 14.8 (11.6-14.8) % Plt Count 245 (150-400) X10^3/uL Neut % (Auto) 82.6 H (50-75) % Lymph % (Auto) 5.8 L (25-40) % [place] % (Auto) 7.6 (3-14) % Eos % (Auto) 3.7 (2-4) % Baso % (Auto) 0.3 (0-2) % Neut # (Auto) 9400 H (6913-0799) /uL Lymph # (Auto) 700 L (1168-4690) /uL [place] # (Auto) 900 (0-900) /uL Eos # (Auto) 400 (0-450) /uL Baso # (Auto) 0 (0-100) /uL PT 10.8 (10.1-12.7) SECONDS INR 0.9 (0.9-1.3) Sodium 129 L (137-145) mmol/L Potassium 4.8 (3.4-5.1) mmol/L Chloride 95 L (98-107) mmol/L Carbon Dioxide 26 (22-32) mmol/L BUN 61 H (9-20) mg/dL Creatinine 2.37 H (0.66-1.25) mg/dL Estimated GFR 27.5 L (>60) mL/min BUN/Creatinine Ratio 25.7 H (6-22) Glucose 160 H (80-110) mg/dL Calcium 8.2 L (8.4-10.2) mg/dL Total Bilirubin 0.4 (0.2-1.3) mg/dL AST 40 (17-59) IU/L ALT 18 (<50) IU/L Alkaline Phosphatase 107 (38-126) U/L Total Protein 6.8 (6.3-8.2) g/dL Albumin 3.7 (3.5-5.0) g/dL Globulin 3.1 (1.7-4.1) g/dL Albumin/Globulin Ratio 1.2 (1.0-2.8) Ethyl Alcohol ( - 10) mg/dL 09/10/19 Range/Units 19:04 WBC (4.5-11.0) X10^3/uL RBC (4.5-5.9) X10^6/uL Hgb (13.5-17.5) g/dL Hct (41-53) % MCV (80-100) fL MCH (26-34) PG MCHC (30-36) % RDW (11.6-14.8) % Plt Count (150-400) X10^3/uL Neut % (Auto) (50-75) % Lymph % (Auto) (25-40) % [place] % (Auto) (3-14) % Eos % (Auto) (2-4) % Baso % (Auto) (0-2) % Neut # (Auto) (8065-8409) /uL Lymph # (Auto) (8107-8025) /uL [place] # (Auto) (0-900) /uL Eos # (Auto) (0-450) /uL Baso # (Auto) (0-100) /uL PT (10.1-12.7) SECONDS INR (0.9-1.3) Sodium (137-145) mmol/L Potassium (3.4-5.1) mmol/L Chloride (98-107) mmol/L Carbon Dioxide (22-32) mmol/L BUN (9-20) mg/dL Creatinine (0.66-1.25) mg/dL Estimated GFR (>60) mL/min BUN/Creatinine Ratio (6-22) Glucose (80-110) mg/dL Calcium (8.4-10.2) mg/dL Total Bilirubin (0.2-1.3) mg/dL AST (17-59) IU/L ALT (<50) IU/L Alkaline Phosphatase (38-126) U/L Total Protein (6.3-8.2) g/dL Albumin (3.5-5.0) g/dL Globulin (1.7-4.1) g/dL Albumin/Globulin Ratio (1.0-2.8) Ethyl Alcohol < 10 ( - 10) mg/dL Urine Dip Bedside Urine Glucose Negative Bedside Urine Bilirubin - Negative Bedside Urine Ketone - Negative Urine Specific [place] 1.010 Bedside Urine Occult Blood - Negative Bedside Urine pH 5.5 Bedside Urine Protein +/- 15 Bedside Urine Urobilinogen - Negative Bedside Urine Nitrite - Negative Bedside Urine Leukocytes - Negative Esterase Imaging Data Right tib-fib x-ray:: Radiologist's Impression: No acute findings. Left tib-fib x-ray:: Radiologist's Impression: No radiographic evidence of osteomyelitis. Vascular calcifications are noted. Critical Care Time Critical Care Time Critical Care Time: Yes Total Critical Care Time: 45 Attestation: Time included initial evaluation of patient, review of past medical records, review of lab and x-ray data, and clinical decision making. Time also included discussed the case with the patient as well as consult in the admitting physician. Discharge Plan Departure Patient Disposition: Admitted As Inpatient Clinical Impression: Cellulitis of left leg, Diabetic neuropathy, Diabetic ulcer of left lower leg, Diabetic ulcer of right lower leg, Chronic stasis dermatitis, Renal failure, chronic, Anemia due to chronic kidney disease, Diabetes Admit Date/Time: 09/10/19 20:57 Admit Provider: Luke Schaefer
--- NOTE | 2019-09-10 20:05 | DI.RAD.S_ITS ---
PROCEDURE: XR TIBIA FIBULA RT 2V INDICATIONS: Cellulitis. Diabetic ulcers. TECHNIQUE: 2 views of the tibia and fibula were acquired. COMPARISON: [facility], CR, XR TIBIA FIBULA RT 2V, 09/10/2019, 18:41. FINDINGS: Bones: No fractures or dislocations. Remote fibular fracture deformity. No suspicious bony lesions. No visible periostitis. Moderate degenerative changes at the knee joint. Soft tissues: No suspicious soft tissue calcifications or masses. Arterial and venous stasis calcifications. No soft tissue gas. IMPRESSION: 1. No radiographic evidence of osteomyelitis. MRI is more sensitive. 2. Arterial and venous stasis calcifications. 3. Moderate degeneration of the knee joint. Dictated by: Rahel Comer M.D. on 09/10/2019 at 21:12 Approved by: Rahel Comer M.D. on 09/10/2019 at 21:14
[2019-09-10] MEDS: AMPICILLIN/SULBACTAM 3 GM 3 GM in SODIUM CHLORIDE 0.9% 100 ML IV (20:35)
[2019-09-10] MEDS: ACETAMINOPHEN 325 MG TABLET 975 MG PO (20:37)
[2019-09-10 20:49] LABS: Ethanol (ETOH) < 10 mg/dL
--- NOTE | 2019-09-10 22:02 | P.HP_ITS ---
History of Present Illness History of Present Illness Date Patient Seen: 09/10/19 Time Patient Seen: 22:03 Date of Onset of Symptoms: 09/09/19 Chief complaint: right leg pain, known infection Narrative: Patient is a 68-year-old male patient of Dr. Quintana who my crosscover for. He apparently has been in his usual state health until the last few days when he has had increasing pain in his right leg. He has recently seen by his wound care doctor for a Pseudomonas positive culture and was placed on cefepime which he got his 1st dose yesterday. Parent least had increasing pain in his right side because of some questionable trauma was brought in today. He has apparently been having issues with his left leg and is wondering what the cause is. No other changes. Has not fallen. Denies is only drinking 2 beers a day. He has otherwise had no fevers or chills no chest pain. No shortness of breath no abdominal pain. His leg is been hurting on a consistent basis but he does not feels left 1 quite as much. His low rate 1 more. He has had some trauma apparently with his wheelchair. Otherwise he has been feeling well. Brought in today for increasing cellulitis in the left leg. Past medical history. Did it degenerative joint disease with previous surgeries on spinal cord with history of fractures with chronic pain issues, alcohol abuse, narcotic dependency, duodenal ulcer, gout, history of recurrent UTI, hypertension, type 2 diabetes, renal failure, chronic anemia thought to be secondary to chronic disease as well as previous GI bleed. 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 Does not smoke, no use illicit drugs, Patient History Medical History Alcoholism (Chronic) Anemia associated with chronic renal failure (Chronic) Cellulitis of lower leg (Chronic) Chronic kidney disease, stage 4 (severe) (Chronic) Chronic pain (Chronic) Depression (Chronic) Diabetes type 2, controlled (Chronic) Duodenal ulcer (Acute) GI bleed (Resolved) Gout, arthropathy (Chronic) History of cervical fracture (Resolved) Hyperparathyroidism (Chronic) Hypertension (Chronic) Left leg pain (Chronic) Symptomatic anemia (Chronic) Surgical History H/O cervical spine surgery (Acute) History of colectomy (Resolved) History of fusion of cervical spine (Chronic) Family & Social History Social History: household members friend(s),other Safety & Behavioral: Feels Safe in Current Yes Environment Been Physically Hurt or No Threatened By a Person Tobacco & Substance use: Tobacco type cigarettes Smoking Status Former smoker alcohol intake current alcohol intake frequency 0-2 drinks per day Substance Use Type does not use Meds Home Medications and Allergies Home Medications Medication Instructions Recorded Confirmed Type citalopram 20 mg PO DAILY 12/25/17 08/08/19 History glimepiride 1 mg PO DAILY 03/22/18 08/08/19 History doxazosin 4 mg PO BEDTIME 06/07/18 08/08/19 History furosemide 80 mg PO DAILY 09/27/18 08/08/19 History duloxetine 60 mg PO BID 09/28/18 08/08/19 History polyethylene glycol 3350 17 g PO DAILY PRN 09/28/18 08/08/19 History lorazepam 0.5 mg PO TID PRN 11/12/18 08/08/19 History silver sulfadiazine [SSD] 1 applic TOPICAL TID 11/12/18 08/09/19 History lidocaine 1 patch TOP DAILY #30 each 12/19/18 08/08/19 Rx melatonin 10 mg PO BEDTIME PRN 03/10/19 08/09/19 History hydrocodone-acetaminophen 1 tab PO DAILY 08/08/19 08/08/19 History pantoprazole 40 mg PO DAILY 08/08/19 08/08/19 History ferrous gluconate 324 mg PO BID #60 tab 08/12/19 Rx multivitamin [Tab-A-Isidro] 1 tab PO DAILY #90 tab 08/12/19 Rx Allergies Allergy/AdvReac Type Severity Reaction Status Date / Time latex Allergy Mild IRRITATION Verified 06/13/19 16:39 carisoprodol [From Soma] Allergy Verified 06/13/19 16:39 hydromorphone Allergy Verified 06/13/19 16:39 Sulfa (Sulfonamide AdvReac Mild N&V 1HOUR Verified 06/13/19 16:39 Antibiotics) AFTER RX, THINKS IT IS RELATED Review of Systems Review of Systems ROS: Yes All systems reviewed with the patient and are negative except as otherwise documented Exam Vital Signs (past 8 hours): - 09/10/19 18:45 09/10/19 19:07 09/10/19 19:30 Temperature 98.9 F Pulse Rate 89 86 Blood Pressure Pulse Oximetry 98 96 09/10/19 19:43 09/10/19 19:45 09/10/19 20:00 Temperature Pulse Rate 92 H Blood Pressure 128/62 132/60 Pulse Oximetry 96 Narrative Exam Narrative: Alert obese male sitting in bed in no acute distress. Mucous membranes moist neck supple without adenopathy JVD or bruits. Lungs are clear. Heart regular rate and rhythm. Abdomen is soft positive bowel sound obese. Extremities show left leg with marked erythema basically from knee to ankle. Warm to the touch. He has got multiple blisters with some drainage. Wound on the left side seems to be more extensive but not full thickness. Does have some tenderness in the calf but otherwise is unremarkable. Right leg has tenderness along the anterior ken but no warmth. Slight erythema. Right arm has PICC line. Appears normal. Neurologic exam is nonfocal. He is alert oriented interactive. Objective Labs Result Diagrams: 09/10/19 19:04 09/10/19 19:04 Labs: Laboratory Results - last 24 hr 09/10/19 09/10/19 09/10/19 19:04 19:04 19:04 WBC 11.4 H RBC 2.53 L Hgb 7.9 L Hct 23.5 L MCV 92.6 MCH 31.2 MCHC 33.7 RDW 14.8 Plt Count 245 Neut % (Auto) 82.6 H Lymph % (Auto) 5.8 L [place] % (Auto) 7.6 Eos % (Auto) 3.7 Baso % (Auto) 0.3 Neut # (Auto) 9400 H Lymph # (Auto) 700 L [place] # (Auto) 900 Eos # (Auto) 400 Baso # (Auto) 0 PT 10.8 INR 0.9 Sodium 129 L Potassium 4.8 Chloride 95 L Carbon Dioxide 26 BUN 61 H Creatinine 2.37 H Estimated GFR 27.5 L BUN/Creatinine Ratio 25.7 H Glucose 160 H Calcium 8.2 L Total Bilirubin 0.4 AST 40 ALT 18 Alkaline Phosphatase 107 Total Protein 6.8 Albumin 3.7 Globulin 3.1 Albumin/Globulin Ratio 1.2 Ethyl Alcohol 09/10/19 19:04 WBC RBC Hgb Hct MCV MCH MCHC RDW Plt Count Neut % (Auto) Lymph % (Auto) [place] % (Auto) Eos % (Auto) Baso % (Auto) Neut # (Auto) Lymph # (Auto) [place] # (Auto) Eos # (Auto) Baso # (Auto) PT INR Sodium Potassium Chloride Carbon Dioxide BUN Creatinine Estimated GFR BUN/Creatinine Ratio Glucose Calcium Total Bilirubin AST ALT Alkaline Phosphatase Total Protein Albumin Globulin Albumin/Globulin Ratio Ethyl Alcohol < 10 Assessment & Plan Assessment & Plan narrative: Cellulitis left leg. We worsening. Difficult to tell but will consult Wound. Culture was recently done with Pseudomonas has gotten his previous dose of his antibiotics. Will add staph coverage with Unasyn. Due to his creatinine prefer not to use vancomycin. May need to consider something that has more longstanding once a day options. But will discuss with wound care tomorrow. Will have them look at it and see what they think is for is whether it is that much worse or not. Left leg pain. X-ray show no fracture. Will follow. May need to consider physical therapy. Type 2 diabetes. Will hold his oral medicine start as discharge. With his previous history is been very reluctant to put him on a consistent medicine that will drop his sugar up because he is been inconsistent with his diet. Will see how he does over the next 24 hours. History of alcohol abuse. He denies that at this time but will place him on precautions and follow. Patient has had very significant withdrawals in the past. Chronic renal failure. Stable. Will gently hydrate today. Code status full, GI prophylaxis stable. DVT prophylaxis will place on Lovenox. Probably is higher risk will Disposition. Depending on response suspect 48-72 hours
[2019-09-10] MEDS: SODIUM CHLORIDE 0.9% 1,000 ML 75 ML IV (23:32)
[2019-09-10] MEDS: THIAMINE 100 MG TABLET PO (23:41)
[2019-09-11] VITALS (13 sets, daily range): BP systolic 102–166; BP diastolic 61–74; PULSE 72–93; RESP 14–20; TEMP 36.6–37.1; O2SAT 96–98
[2019-09-11] MEDS: ACETAMINOPHEN 325 MG TABLET 650 MG PO ×3 (00:17→21:37)
[2019-09-11] MEDS: LORazepam 0.5 MG TABLET PO (00:18)
--- NOTE | 2019-09-11 00:31 | PC.NURSE ---
Admit note: Cristóbal brought from ER to rm 215 via hospital bed, able to pivot transfer with 2 max assist to bed, incontinent of loose stool and urine on clothing & brief. Soiled clothing removed, pants placed in separate bag, encouraged patient to have his sister take home to launder tomorrow. VS stable. LE's red, blanchable, he reports pain and spasms to RLE. 21 sores observed to RLE in different stages, some dry, some purpura, draining blister, some dry. LLE with one open sore to lateral lower leg. IV antibiotic infusing when patient arrived, finishing shortly after. NS now infusing to PICC line RUE (he states was placed yesterday in the ER. Oriented to room & call button system, fall precautions in place, instructed to call nurse for any needs/concerns.
--- NOTE | 2019-09-11 06:13 | PC.NURSE ---
Patient was restless this night and awake most of the shift, very anxious and uncomfortable. Patient had wound open on Left lower leg. I applied talfa and curlex and irrigated w/ sterile saline. Patient leg ulcers and erythema still within markings. Patient has not ambulated on this shift, but was up and sat on the side of the bed. CIWA protocol 0. BS check at [id number].
[2019-09-11 06:15] LABS: Add Manual Diff / Slide Review NO; Basophils Absolute Auto 0 /uL (0-100); Basophils Percent Auto 0.3 % (0-2); Eosinophils Absolute Auto 400 /uL (0-450); Eosinophils Percent Auto 3.3 % (2-4); Hematocrit 21.9 % (41-53); Hemoglobin 7.3 g/dL (13.5-17.5); Lymphocytes Absolute Auto 500 /uL (1100-4500); Lymphocytes Percent Auto 4.6 % (25-40); Mean Corpuscular HGB Conc 33.4 % (30-36); Mean Corpuscular Hemoglobin 31.3 PG (26-34); Mean Corpuscular Volume 93.8 fL (80-100); Monocytes Absolute Auto 1000 /uL (0-900); Monocytes Percent Auto 9.2 % (3-14); Neutrophils Absolute Auto 9300 /uL (1500-7000); Neutrophils Percent Auto 82.6 % (50-75); Platelet Count 216 X10^3/uL (150-400); Red Blood Cell Count 2.33 X10^6/uL (4.5-5.9); Red Cell Distribution Width 14.7 % (11.6-14.8); White Blood Cell Count 11.2 X10^3/uL (4.5-11.0)
[2019-09-11 06:24] LABS: BUN Creatinine Ratio 23.8 (6-22); Blood Urea Nitrogen 63 mg/dL (9-20); Calcium 7.7 mg/dL (8.4-10.2); Carbon Dioxide 25 mmol/L (22-32); Chloride 97 mmol/L (98-107); Estimated Glomerular Filt Rate 24.2 mL/min (>60); Glucose 171 mg/dL (80-110); HEMOLYSIS < 15 (0-50); Potassium 4.7 mmol/L (3.4-5.1); Sodium 129 mmol/L (137-145)
[2019-09-11] MEDS: ENOXAPARIN 30 MG/0.3 ML SYRINGE SUBCUT (08:12)
[2019-09-11] MEDS: MULTIVITAMIN 1 TABLET 1 TAB PO (08:12)
[2019-09-11] MEDS: PANTOPRAZOLE 40 MG TABLET PO (08:12)
[2019-09-11] MEDS: FUROSEMIDE 40 MG TABLET 80 MG PO (08:12)
[2019-09-11] MEDS: HYDROCODONE/ACET 5/325 TABLET 1 TAB PO (08:12)
[2019-09-11] MEDS: FOLIC ACID 1 MG TABLET PO (08:12)
[2019-09-11] MEDS: DULOXETINE 30 MG CAPSULE 60 MG PO ×2 (08:12→21:36)
[2019-09-11] MEDS: THIAMINE 100 MG TABLET PO (08:16)
[2019-09-11] MEDS: CEFEPIME 1 GM in SODIUM CHLORIDE 0.9% 100 ML 200 ML IV (09:37)
--- NOTE | 2019-09-11 13:20 | P.PN_ITS ---
Subjective Subjective Date Patient Seen: 09/11/19 Time Patient Seen: 08:40 Interval history: Patient seen in follow-up of cellulitis. Patient has not had any significant increased pain or change. He is otherwise feeling pretty well. Was a little more confused today. Who but felt like he woke up in a little bit of of fall. He otherwise has no significant new complaints or problems. He has not had any blood in his stool no black or tarry stools. Overall he has been doing well. Has had a history of feels as if is alcohol content has been decreased. No other changes. No abdominal pain. No chest pain. Exam Vital Signs (past 8 hours): - 09/11/19 08:00 09/11/19 11:41 09/11/19 11:59 Temperature 98.1 F 98.0 F 98.1 F Pulse Rate 93 H 86 73 Respiratory Rate 18 18 16 Blood Pressure 102/73 157/74 H 149/70 H Pulse Oximetry 97 09/11/19 12:00 Temperature 98.0 F Pulse Rate 86 Respiratory Rate 18 Blood Pressure 157/74 H Pulse Oximetry 97 Oxygen Delivery Method Room Air Oxygen Flow Rate 0 Narrative Exam Narrative: Alert male in no acute distress mildly fatigued in appearance. Mucous membranes are moist. Neck supple without adenopathy. Lungs are clear. Heart regular rate and rhythm. Abdomen is soft positive bowel sounds nontender. Extremities bilateral erythema in the shins I do think the left leg looks slightly better. Objective Labs Result Diagrams: 09/11/19 06:05 09/11/19 06:05 Labs: Laboratory Results - last 24 hr 09/10/19 09/10/19 09/10/19 19:04 19:04 19:04 WBC 11.4 H RBC 2.53 L Hgb 7.9 L Hct 23.5 L MCV 92.6 MCH 31.2 MCHC 33.7 RDW 14.8 Plt Count 245 Neut % (Auto) 82.6 H Lymph % (Auto) 5.8 L [place] % (Auto) 7.6 Eos % (Auto) 3.7 Baso % (Auto) 0.3 Neut # (Auto) 9400 H Lymph # (Auto) 700 L [place] # (Auto) 900 Eos # (Auto) 400 Baso # (Auto) 0 PT 10.8 INR 0.9 Sodium 129 L Potassium 4.8 Chloride 95 L Carbon Dioxide 26 BUN 61 H Creatinine 2.37 H Estimated GFR 27.5 L BUN/Creatinine Ratio 25.7 H Glucose 160 H Calcium 8.2 L Total Bilirubin 0.4 AST 40 ALT 18 Alkaline Phosphatase 107 Total Protein 6.8 Albumin 3.7 Globulin 3.1 Albumin/Globulin Ratio 1.2 Ethyl Alcohol Blood Type Antibody Screen Crossmatch 09/10/19 09/11/19 09/11/19 19:04 06:05 06:05 WBC 11.2 H RBC 2.33 L Hgb 7.3 L Hct 21.9 L MCV 93.8 MCH 31.3 MCHC 33.4 RDW 14.7 Plt Count 216 Neut % (Auto) 82.6 H Lymph % (Auto) 4.6 L [place] % (Auto) 9.2 Eos % (Auto) 3.3 Baso % (Auto) 0.3 Neut # (Auto) 9300 H Lymph # (Auto) 500 L [place] # (Auto) 1000 H Eos # (Auto) 400 Baso # (Auto) 0 PT INR Sodium 129 L Potassium 4.7 Chloride 97 L Carbon Dioxide 25 BUN 63 H Creatinine 2.65 H Estimated GFR 24.2 L BUN/Creatinine Ratio 23.8 H Glucose 171 H Calcium 7.7 L Total Bilirubin AST ALT Alkaline Phosphatase Total Protein Albumin Globulin Albumin/Globulin Ratio Ethyl Alcohol < 10 Blood Type Antibody Screen Crossmatch 09/11/19 10:15 WBC RBC Hgb Hct MCV MCH MCHC RDW Plt Count Neut % (Auto) Lymph % (Auto) [place] % (Auto) Eos % (Auto) Baso % (Auto) Neut # (Auto) Lymph # (Auto) [place] # (Auto) Eos # (Auto) Baso # (Auto) PT INR Sodium Potassium Chloride Carbon Dioxide BUN Creatinine Estimated GFR BUN/Creatinine Ratio Glucose Calcium Total Bilirubin AST ALT Alkaline Phosphatase Total Protein Albumin Globulin Albumin/Globulin Ratio Ethyl Alcohol Blood Type O Positive Antibody Screen Negative Crossmatch See Detail Assessment & Plan Assessment & Plan narrative: Anemia. Significant decrease but no evidence of bleeding that we can see. Will guaiac stools. Give 2 units of blood and recheck tomorrow. If stable hopefully will be able to go home depending on findings. Patient has had long-standing anemia which is felt to be secondary to probably chronic disease in his alcoholism. But we will see what he responds. Hypertension. Patient has had poor control. Will add lisinopril and re- evaluate. Slow buildup as outpatient. Cellulitis left leg. Maybe it is slightly improved. I discussed with pharmacy about coverage she really has only had 1 day of IV antibiotics. I think will stay on the same 1 culture shows Pseudomonas. Will contact Dr. obregon now see what his recommendation is but hopefully can go home tomorrow with continued IV antibiotics per Dr. tariq. Type 2 diabetes. Sliding scale. History of alcohol abuse. Hoping he does not withdrawal patient denies active use will hard to tell what that means. Will continue CIWA protocol and follow from there. Chronic renal failure. Stable. Disposition. Hopefully in discharge tomorrow. After blood is given and see if he stable. 35 minutes spent discussing with pharmacy discharge planning. And care coordination Quality VTE Deep Vein Thrombosis/Pulmonary Embolism Present on Admission: No
[2019-09-11] MEDS: lisinopriL 5 MG TABLET PO (13:37)
--- NOTE | 2019-09-11 15:43 | CM.IDA ---
Initial DCP Assessment Note: Patient is a 68 yo male, resident of [place]. Patient presents w/cellulitis and anemia, getting blood transfusion today and receiving IV abx PCP: Jim Damicoer: TAMIA/MARIS Reviewed chart. Met w/patient and his sister Rosa, explained SW role. Patient familiar to this LEAN MANUFACTURING SPECIALIST from prior hospitalizations. Patient is groggy and tends to drift off during our greeting. Patient gives this LEAN MANUFACTURING SPECIALIST to speak w/his sister Rosa re: dispo planning. Rosa explains outside of patient's room that his roommates recently moved out so he is currently living alone. Sister provides transportation to appointments. Rosa explains she is worried about patient and wishes he were not living alone. Patient denies alcohol use at this time but Rosa suspects differently, she suspects daily beer drinking but unsure how much patient consumes. Patient now has [facility] in-home cgs that started last month. They see patient approx 3 days weekly, Rosa unsure how many cg hours patient gets on these days. Rosa states [facility] CM is Lanny (last name?). Rosa has already spoken w/Lanny this morning, she has requested a reassessment for patient to be considered for additional caregiver hours, Rosa also suggests longterm care planning assist since patient may not be able to afford his current apt for much longer, since his roommates recently moved. Requested that [employer] fax H+P to [facility] attn Ammonium Nitrate Crystallizer. Discussion held w/sister about patient and his baseline cognition; this LEAN MANUFACTURING SPECIALIST suggested that patient seemed to lack insight into the severity of his health care and senior living care needs and sister agreed. This LEAN MANUFACTURING SPECIALIST suggested Rosa consider a report to APS if she felt it were appropriate for self neglect. Rosa hesitant and states she will need to discuss w/patient's children. This LEAN MANUFACTURING SPECIALIST suggested a PT assessment might be helpful during patient's hospitalization and she agreed. Will discuss w/Dr Schaefer . Possible DC home w/ annmarie KELLEY and [facility] cgs . Following closely. NOELLE Stone Discharge Planning/Care Management CM Discharge Assessment Start: 09/11/19 15:40 Freq: Status: Active Protocol: Document 09/11/19 15:41 CARMITA (Rec: 07/08/20 15:43 JW [id number]) Discharge Planning Assessment Assigned Brusher Warp NOELLE Caro DPOA/Assigned Designee Name Rosa Tubbs, Contact Information [phone] Advance Directives? Yes Advance Directives on File No History Provided By Patient,Family Member Prior Living Arrangements Apartment/Condo Household Members other Type of transporation used prior to Relies on Others admit Independent with ADL's No Is patient alert and oriented? No Needs Assistance With Meal Prep,Managing Medications ,Home Chores / Shopping Caregiver for Another No Barriers to Discharge Yes
--- NOTE | 2019-09-11 16:20 | DIET.PN ---
Dietary Progress Note Assessment: 68y M admitted for bilateral lower leg cellulitis referred to nutrition for same. Pt was living c roomates who recently moved out. Pt had past spinal cord injury so is homebound in wheelchair. Pt receives $190 in EBT benefits for food each month along c Meals on Wheels providing one meal/d x7d/w. Pt admits his diet is terrible r/t food insecurity. Pt has [facility] caregivers who can shop for him as well as a sister who visits once per week. Pt barrier includes not being at store to make good decisions for self. Usual Day: B: 2 yogurts L: [employer] delivery, pt is most often still hungry after lunch D: does not disclose to RD, stating this is the most difficult meal. Pt most recent A1c in July 2019 was 5.7, kidney function is poor likely related to poor diet quality and reliance on highly processed, low cost food. Pt's chronic wounds complicate nutrition status as weeping wounds leak proteins. Pt open to food and nutrition resources for healthful budget eating. HT: 180.3cm WT: 122kg UBW: 125kg BMI: 37.5 Labs: WBC 11.2 H, Hgb 7.3 L, Na 129 L, Cr 2.65 H, eGFR 24.2 L Yahir: 14 high risk for skin breakdown Nutrition Diagnosis: undesirable food choices r/t food insecurity and pt homebound aeb pt admitted for chronic wound cellulitis, pt reports running out of money for food despite 1meal/day provided by [facility] service, pt reports $190 EBT monthly food budget. Interventions: 1. Created healthy, budget friendly shopping list for pt with focus on both unprocessed foods (to limit phosphorus, sodium re renal) and healthier frozen meals. Encouraged pt to shop using [email or web address] (pts preferred store) mobile [employer] or online, not to check out (as EBT cannot be charged online), and to give this shopping list to sister or caregiver so he can make more detailed shopping choices. 2. Included several recipes for easy prep of food ingredients on shopping list including wound supporting chili and 8 ways to top oatmeal. 3. Recc ONS Luis Enrique bid to support wound healing 4. Recc pt request cases of Ensure ONS from [employer] which they do provide free of charge as meal replacement/snack option. Pt's A1c is 5.7 so acceptable for pt to consume up to 1 Ensure/d at this time. Diet Order: CCD4 EER: 80g PRO (0.7g/kg per renal and wound healing), 1800kcal Monitoring/Evaluations: f/u as requested
[2019-09-11] MEDS: INSULIN ASPART 100 UNIT/ML INSULN PEN SUBCUT ×2 (17:12→21:38)
[2019-09-11] MEDS: DOXAZOSIN 4 MG TABLET PO (21:36)
--- NOTE | 2019-09-11 23:37 | PC.NURSE ---
Dressing change performed to BLE at 2200. Both lower legs washed with saline. ABD pads applied to wounds on anterior legs, wrapped in roll gauze, held with Tubifast. All wound beds were red and weepy, with serosanguinous drainage.
[2019-09-12] VITALS (7 sets, daily range): BP systolic 114–133; BP diastolic 46–77; PULSE 71–79; RESP 16–20; TEMP 36.4–36.9; O2SAT 95–99
--- NOTE | 2019-09-12 01:32 | PC.NURSE ---
Blood transfusion was done on previous shift with no documentation of completion. Time entered for the beginning of NOC shift and is not the actual end time for the transfusion.
[2019-09-12 05:25] LABS: Add Manual Diff / Slide Review NO; Basophils Absolute Auto 0 /uL (0-100); Basophils Percent Auto 0.4 % (0-2); Eosinophils Absolute Auto 400 /uL (0-450); Eosinophils Percent Auto 4.5 % (2-4); Hemoglobin 8.1 g/dL (13.5-17.5); Lymphocytes Absolute Auto 800 /uL (1100-4500); Lymphocytes Percent Auto 8.4 % (25-40); Mean Corpuscular HGB Conc 33.4 % (30-36); Mean Corpuscular Hemoglobin 31.2 PG (26-34); Mean Corpuscular Volume 93.6 fL (80-100); Monocytes Absolute Auto 900 /uL (0-900); Monocytes Percent Auto 9.6 % (3-14); Neutrophils Absolute Auto 7300 /uL (1500-7000); Neutrophils Percent Auto 77.1 % (50-75); Platelet Count 215 X10^3/uL (150-400); Red Cell Distribution Width 15.2 % (11.6-14.8); White Blood Cell Count 9.5 X10^3/uL (4.5-11.0)
[2019-09-12 05:38] LABS: BUN Creatinine Ratio 28.3 (6-22); Blood Urea Nitrogen 76 mg/dL (9-20); Calcium 7.8 mg/dL (8.4-10.2); Carbon Dioxide 23 mmol/L (22-32); Chloride 97 mmol/L (98-107); Estimated Glomerular Filt Rate 23.8 mL/min (>60); Glucose 141 mg/dL (80-110); HEMOLYSIS 22 (0-50); Potassium 4.5 mmol/L (3.4-5.1); Sodium 129 mmol/L (137-145)
[2019-09-12 05:43] LABS: Hematocrit 24.3 % (41-53)
[2019-09-12] MEDS: DULOXETINE 30 MG CAPSULE 60 MG PO ×2 (08:50→21:14)
[2019-09-12] MEDS: PANTOPRAZOLE 40 MG TABLET PO (08:50)
[2019-09-12] MEDS: CEFEPIME 1 GM in SODIUM CHLORIDE 0.9% 100 ML 200 ML IV (08:50)
[2019-09-12] MEDS: lisinopriL 5 MG TABLET PO (08:50)
[2019-09-12] MEDS: FUROSEMIDE 40 MG TABLET 80 MG PO (08:51)
[2019-09-12] MEDS: FOLIC ACID 1 MG TABLET PO (08:51)
[2019-09-12] MEDS: MULTIVITAMIN 1 TABLET 1 TAB PO (08:51)
[2019-09-12] MEDS: HYDROCODONE/ACET 5/325 TABLET 1 TAB PO (08:51)
[2019-09-12] MEDS: INSULIN ASPART 100 UNIT/ML INSULN PEN SUBCUT ×3 (08:52→17:24)
[2019-09-12] MEDS: ENOXAPARIN 30 MG/0.3 ML SYRINGE SUBCUT (08:53)
[2019-09-12] MEDS: DAPTOmycin 500 MG in SODIUM CHLORIDE 0.9% 50 ML 100 ML IV (10:15)
[2019-09-12] MEDS: THIAMINE 100 MG TABLET PO (10:17)
--- NOTE | 2019-09-12 13:26 | P.PN_ITS ---
Subjective Subjective Date Patient Seen: 09/12/19 Time Patient Seen: 13:26 Interval history: Patient overall is feeling a little better on his right leg. Left leg feels worst him. No other changes. Feeling weak. Has been requiring help to transfer get out of bed. Has not had any falls. Patient was in the emergency room this week several times doing to falls. Probably was related to his right leg initial injury. No other changes. He has had no chest pain. He has not had a bowel movement. Not having any abdominal pain. No nausea or vomiting. No other changes. Exam Vital Signs (past 8 hours): - 09/12/19 08:00 09/12/19 08:50 09/12/19 11:39 Temperature 97.7 F 97.5 F L Pulse Rate 74 71 Respiratory Rate 20 18 Blood Pressure 132/66 132/77 114/63 Pulse Oximetry 95 97 Oxygen Delivery Method Room Air Oxygen Flow Rate 0 Narrative Exam Narrative: Alert male much less fatigued in appearance in no acute distress. Mucous membranes moist. Neck supple without adenopathy. Lungs are clear. Heart regular rate and rhythm without murmurs. Abdomen is soft positive bowel sounds obese. No definitive tenderness today. Right leg actually shows decreased erythema. Left ken seems to have increased erythema warmth. No other changes. Neurologic exam unchanged. Objective Labs Result Diagrams: 09/12/19 05:12 09/12/19 05:12 Labs: Laboratory Results - last 24 hr 09/11/19 09/12/19 09/12/19 10:15 05:12 05:12 WBC 9.5 RBC 2.60 L Hgb 8.1 L Hct 24.3 L MCV 93.6 MCH 31.2 MCHC 33.4 RDW 15.2 H Plt Count 215 Neut % (Auto) 77.1 H Lymph % (Auto) 8.4 L [place] % (Auto) 9.6 Eos % (Auto) 4.5 H Baso % (Auto) 0.4 Neut # (Auto) 7300 H Lymph # (Auto) 800 L [place] # (Auto) 900 Eos # (Auto) 400 Baso # (Auto) 0 Sodium 129 L Potassium 4.5 Chloride 97 L Carbon Dioxide 23 BUN 76 H Creatinine 2.69 H Estimated GFR 23.8 L BUN/Creatinine Ratio 28.3 H Glucose 141 H Calcium 7.8 L Blood Type O Positive Antibody Screen Negative Crossmatch See Detail Assessment & Plan Assessment & Plan narrative: Cellulitis. Legs bilateral Responding poorly to outpatient antibiotics and complicated by the fact that he has now positive MRSA. I discussed with pharmacy. Due to his renal failure it would not be ideal to go on vancomycin. Due to the fact that is getting worse do need to cover. Probably not contamination. Discussed with pharmacist. [place] would be once a day so that as outpatient at least they would only be on once a day antibiotics. We discussed and elected for daptomycin. I also believe that he will make poor choices and be in a position to fail treatment if he is not getting treated in any [place] [facility] [place] type rehab setting. We discussed this with patient he is comfortable with that and will agree to go to [place] [facility] at least for initial treatment to the 1st hopefully 2 weeks. Anemia. Guaiac is not been defined yet does not appear to be bleeding in any location. I suspect that is secondary to chronic disease alcoholism but we need guaiac before we can define. Did not get as much of a increases I was hoping period going to hold further transfusions but will see what happens by tomorrow. Certainly patient is at high risk. Due to his lifestyle and alcoholism. Will continue multivitamin replacement. Previous workup has not shown any definitive cause other than chronic disease Hypertension. Actually doing well with current NOAH-inhibitor. Blood pressure is very good at actually will continue to follow. Will need to be followed as an outpatient with labs. Type 2 diabetes. Currently on sliding scale. Have concern over treatment in unable to use metformin. Other treatment options all have risk of hypoglycemia which due to his drinking and self-care which has proven to be poor is difficult situation. Will need to see how he does. Will consider low-dose treatment as discharge. Chronic renal failure. Patient has been referred to cigarette lighter repairer. At this point there has been no change. Will follow. History of alcohol abuse. Primary cause of multiple problems. Patient denies significant abuse recently. He certainly in seems to be doing better with loss for exposure but does except that he is still drinking. It appeared as if this weekend he had significant problems 2nd to that but will have to follow. Refuses treatment we discussed that. Generalized weakness. Patient is significantly weak at this point probably a progressive cause period complicated by his drinking, lack of movement at home, anemia and now cellulitis. Will need physical therapy and rehab I do not believe be safe to go home at this time. Will see how things go over the next 24-48 hours. Disposition. Patient with complicated cellulitis with Pseudomonas and MRSA. Renal failure and was not improving as outpatient with risks due to his lifestyle. Need to make sure we have appropriate antibiotics. I discussed with logistics planner a think rehab or [place] [facility] would be the best option for him for some time. Until we get ahead of the infection. Also Dr Lei agrees that is going to be difficult to cure with his past history. Quality VTE Deep Vein Thrombosis/Pulmonary Embolism Present on Admission: No
--- NOTE | 2019-09-12 13:26 | PM.HP.1 ---
History of Present Illness History of Present Illness Chief complaint: right leg pain, known infection Narrative: Patient is a 68-year-old male patient of Dr. Quintana who my crosscover for. He apparently has been in his usual state health until the last few days when he has had increasing pain in his right leg. He has recently seen by his wound care doctor for a Pseudomonas positive culture and was placed on cefepime which he got his 1st dose yesterday. Parent least had increasing pain in his right side because of some questionable trauma was brought in today. He has apparently been having issues with his left leg and is wondering what the cause is. No other changes. Has not fallen. Denies is only drinking 2 beers a day. He has otherwise had no fevers or chills no chest pain. No shortness of breath no abdominal pain. His leg is been hurting on a consistent basis but he does not feels left 1 quite as much. His low rate 1 more. He has had some trauma apparently with his wheelchair. Otherwise he has been feeling well. Brought in today for increasing cellulitis in the left leg. Past medical history. Did it degenerative joint disease with previous surgeries on spinal cord with history of fractures with chronic pain issues, alcohol abuse, narcotic dependency, duodenal ulcer, gout, history of recurrent UTI, hypertension, type 2 diabetes, renal failure, chronic anemia thought to be secondary to chronic disease as well as previous GI bleed. 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 Does not smoke, no use illicit drugs, Patient History Medical History Alcoholism (Chronic) Anemia associated with chronic renal failure (Chronic) Cellulitis of lower leg (Chronic) Chronic kidney disease, stage 4 (severe) (Chronic) Chronic pain (Chronic) Depression (Chronic) Diabetes type 2, controlled (Chronic) Duodenal ulcer (Acute) GI bleed (Resolved) Gout, arthropathy (Chronic) History of cervical fracture (Resolved) Hyperparathyroidism (Chronic) Hypertension (Chronic) Left leg pain (Chronic) Symptomatic anemia (Chronic) Surgical History H/O cervical spine surgery (Acute) History of colectomy (Resolved) History of fusion of cervical spine (Chronic) Family & Social History Social History: household members other Prior Living Arrangements Apartment/Condo Safety & Behavioral: Feels Safe in Current Yes Environment Been Physically Hurt or No Threatened By a Person Suicidal Ideation Description None Tobacco & Substance use: Tobacco type cigarettes Smoking Status Former smoker alcohol intake current alcohol intake frequency 0-2 drinks per day Substance Use Type does not use Meds Home Medications and Allergies Home Medications Medication Instructions Recorded Confirmed Type citalopram 20 mg PO DAILY 12/25/17 09/11/19 History glimepiride 1 mg PO DAILY 03/22/18 09/12/19 History doxazosin 4 mg PO BEDTIME 06/07/18 09/12/19 History furosemide 80 mg PO DAILY 09/27/18 09/12/19 History duloxetine 60 mg PO BID 09/28/18 09/12/19 History polyethylene glycol 3350 17 g PO DAILY PRN 09/28/18 09/12/19 History lorazepam 0.5 mg PO TID PRN 11/12/18 09/12/19 History silver sulfadiazine [SSD] 1 applic TOPICAL TID 11/12/18 09/12/19 History lidocaine 1 patch TOP DAILY #30 each 12/19/18 09/12/19 Rx hydrocodone-acetaminophen 1 tab PO BEDTIME 08/08/19 09/12/19 History pantoprazole 40 mg PO DAILY 08/08/19 09/12/19 History multivitamin [Tab-A-Isidro] 1 tab PO DAILY #90 tab 08/12/19 09/12/19 Rx allopurinol [Zyloprim] 200 mg PO DAILY 09/12/19 09/12/19 History atorvastatin [Lipitor] 40 mg PO BEDTIME 09/12/19 09/12/19 History ferrous gluconate 324 mg PO DAILY 09/12/19 09/12/19 History melatonin 6 mg PO BEDTIME 09/12/19 09/12/19 History Allergies Allergy/AdvReac Type Severity Reaction Status Date / Time latex Allergy Mild IRRITATION Verified 06/13/19 16:39 carisoprodol [From Soma] Allergy Verified 06/13/19 16:39 hydromorphone Allergy Verified 06/13/19 16:39 Sulfa (Sulfonamide AdvReac Mild N&V 1HOUR Verified 06/13/19 16:39 Antibiotics) AFTER RX, THINKS IT IS RELATED Exam Vital Signs (past 8 hours): - 09/12/19 08:00 09/12/19 08:50 09/12/19 11:39 Temperature 97.7 F 97.5 F L Pulse Rate 74 71 Respiratory Rate 20 18 Blood Pressure 132/66 132/77 114/63 Pulse Oximetry 95 97 Oxygen Delivery Method Room Air Oxygen Flow Rate 0 Objective Labs Result Diagrams: 09/12/19 05:12 09/12/19 05:12 Labs: Laboratory Results - last 24 hr 09/11/19 09/12/19 09/12/19 10:15 05:12 05:12 WBC 9.5 RBC 2.60 L Hgb 8.1 L Hct 24.3 L MCV 93.6 MCH 31.2 MCHC 33.4 RDW 15.2 H Plt Count 215 Neut % (Auto) 77.1 H Lymph % (Auto) 8.4 L [place] % (Auto) 9.6 Eos % (Auto) 4.5 H Baso % (Auto) 0.4 Neut # (Auto) 7300 H Lymph # (Auto) 800 L [place] # (Auto) 900 Eos # (Auto) 400 Baso # (Auto) 0 Sodium 129 L Potassium 4.5 Chloride 97 L Carbon Dioxide 23 BUN 76 H Creatinine 2.69 H Estimated GFR 23.8 L BUN/Creatinine Ratio 28.3 H Glucose 141 H Calcium 7.8 L Blood Type O Positive Antibody Screen Negative Crossmatch See Detail Quality VTE Deep Vein Thrombosis/Pulmonary Embolism Present on Admission: No
--- NOTE | 2019-09-12 13:34 | PT-IP ANOTE ---
attempted eval but pt refused. obtained home set up info and PLOF info but when asked to mobilize, pt refused and stated that he does not want to move.
--- NOTE | 2019-09-12 14:00 | PT.IIE ---
Addendum entered and electronically signed by Zuly Tapia PT 09/12/19 15:54: Talked to nurse prior to PT eval. Nurse d/c bed rest order but bed rest order still appears on computer screen. informed nurse and nurse changed order to up ad rosemary but bed rest order continues to be on screen despite d/c and change in activity order. Original Note: Surgical History (Last Reviewed 09/10/19 @ 22:07 by Luke Schaefer MD) H/O cervical spine surgery (Acute) History of colectomy (Resolved) History of fusion of cervical spine (Chronic) Medical History (Last Reviewed 09/10/19 @ 22:07 by Luke Schaefer MD) Alcoholism (Chronic) Anemia associated with chronic renal failure (Chronic) Cellulitis of lower leg (Chronic) Chronic kidney disease, stage 4 (severe) (Chronic) Chronic pain (Chronic) Depression (Chronic) Diabetes type 2, controlled (Chronic) Duodenal ulcer (Acute) GI bleed (Resolved) Gout, arthropathy (Chronic) History of cervical fracture (Resolved) Hyperparathyroidism (Chronic) Hypertension (Chronic) Left leg pain (Chronic) Symptomatic anemia (Chronic) Physical Therapy Inpatient Evaluation/Re-Eval M1 PT/OT-IP Prior Functional Status Start: 09/12/19 15:17 Freq: NEEDED Status: Active Protocol: Document 09/12/19 14:00 AB (Rec: 09/12/19 15:31 AB [email or web address]) Medical Review Prior Functional Status Medical History Reviewed Yes Communication able to make needs known Mobility and Gait pt stated that he is modifed independent with bed mobility and partial stand pivot transfer without AD; pt is usually on his manual w/c and does not ambulate much; stated that the last time he walked was 1 week ago and just a short walk in his house has a bath aide that comes once a week and [facility] 2x[facility]week for about an hour Social History Household Members other Living Arrangements Apartment/Condo Number of Floors (Floors) One Floor Number of Stairs To Enter/Railing? ramp to enter Home Environment Standard Height Toilet,Tub/ Shower,Ramp Home Equipment Four Wheel Walker,Manual Wheelchair,Tub Transfer Bench, Hand Held Shower,Grab Bars Near Toilet,Grab Bars In Shower Additional Social History Comment stated that he has an adjustable bed with bilateral bed rails M2 PT-IP Current Condition Start: 09/12/19 15:17 Freq: NEEDED Status: Active Protocol: Document 09/12/19 14:00 AB (Rec: 09/12/19 15:31 AB [email or web address]) Physical Therapy Current Condition Current Condition Evaluation Date 09/12/19 Treatment Diagnosis LE cellulitis; generalized weakness Onset Date 09/10/19 Precautions Other Precautions contact precautions: BLE: MRSA M3 PT-IP Subjective Start: 09/12/19 15:17 Freq: NEEDED Status: Active Protocol: Document 09/12/19 14:00 AB (Rec: 09/12/19 15:31 AB [email or web address]) Subjective Physical Therapy Visit Type Type Initial Evaluation Visit Start Time 14:00 Visit Stop Time 14:33 Total Visit Minutes 33 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 Physical Therapy Visit Comments Patient Comments agreed to do PT Therapy Pain Assessment Pain When Pain Assessed At Rest Pain Present Pain Present Pain Reported Location Bilateral Shoulder Intensity 7 Scale Used Numeric (0 - 10) Pain Management Techniques Timing of Activity with Medications Neck Intensity 7 Scale Used Numeric (0 - 10) Pain Management Techniques Timing of Activity with Medications Bilateral Leg Intensity 7 Scale Used Numeric (0 - 10) Pain Management Techniques Timing of Activity with Medications M4 PT-IP Mobility and Gait Start: 09/12/19 15:17 Freq: NEEDED Status: Active Protocol: Document 09/12/19 14:00 AB (Rec: 09/12/19 15:31 AB [email or web address]) PT-Bed Mobility Assessment Sit to Supine Sit to Supine Maximum Assistance,1 Person Assistance,2 Person Assistance ,Bedrails PT-Transfer Assessment Sit to and From Stand Sit to and from Stand Maximum Assistance,2 Person Assistance,Use of Upper Extremities Equipment Transfer Assistive Device Gait Belt,Front Wheeled Walker Transfers Transfer Destination Bed Transfer Technique Stand Step Pivot Transfer Ability Level of Assist Moderate Assistance,Maximum Assistance,2 Person Assistance ,Use of Upper Extremities Comments Mobility Comments completed sit to stand from chair max A x 2 and max cues. pt was able to maintain standing using FWW for support max A x 2 and completed step transfer using FWW max A x 2 and max cues. pt wanted to stay in bed. completed sit to supine max A x 1-2 and max cues. positioned pt in bed. call light and table placed within reach. Gait Assessment Comments Gait Comments unable at this time PT-Balance Assessment Sitting Balance and Reactions Static Sitting Balance Ability Fair Dynamic Sitting Balance Ability Fair Standing Balance and Reactions Static Standing Balance Ability Poor Dynamic Standing Balance Ability Poor Device Used FWW M5 PT-IP Objective Assessments Start: 09/12/19 15:17 Freq: NEEDED Status: Active Protocol: Document 09/12/19 14:00 AB (Rec: 09/12/19 15:31 AB [email or web address]) Orientation Orientation/Cognition Level of Alertness Alert Orientation Name Safety Awareness Decreased Safety Awareness Comments but with some confusion Gross Range of Motion Lower Extremity ROM Assessment Within Functional Limits Strength Lower Extremity Strength Assessment Bilaterally Impaired Hip 3+/5 Knee 4-/5 Sensation Assessment Sensation Gross Sensation Right LE Impaired,Left LE Impaired Light Touch Impaired Proprioception (Position) Impaired Sensation Description Numbness Comments Sensation Comments stated that he only feels 50% on BLE M6 PT-IP Treatment Start: 09/12/19 15:17 Freq: NEEDED Status: Active Protocol: Document 09/12/19 14:00 AB (Rec: 09/12/19 15:31 AB [email or web address]) Physical Therapy Treatment Education Education Provided Safety M7 PT-IP Assessment and Plan Start: 09/12/19 15:17 Freq: NEEDED Status: Active Protocol: Document 09/12/19 14:00 AB (Rec: 09/12/19 15:31 AB [email or web address]) PT Summary Assessment and Plan Potential Rehabilitation Potential Fair Status of Condition at Evaluation Evolving Summary Impairments Pain,ROM,Strength,Balance, Coordination,Sensation,Tone, Cognition,Bed Mobility, Transfers,Gait,Activity Tolerance Assessment Summary pt requiring max A x 2 with bed mobility and transfers and unable to ambulate at this time. pt with decrease activity tolerance affecting mobility and has decrease safety awareness. pt will require SNF rehab to improve strength and mobility. Goals Bed Mobility Goal Minimal Assistance Transfer Goal Minimal Assistance,Front Wheeled Walker Gait Goal Moderate Assistance,Front Wheel Walker Gait Distance 25 Days to Meet Goals 10 Frequency of Treatment Frequency Of Treatment Once a Day Treatment Plan Physical Therapy Treatment Plan Bed Mobility Training,Transfer Training,Gait Training, Therapeutic Exercise,Balance Retraining,Discharge Planning, Neuromuscular Re-ed, Coordination Retraining Recommendations To Nursing Amount of Assist Needed 2 Person Assist Discharge Recommendations PT Discharge Recommendations SNF Rehab Transportation Needs at Discharge Wheelchair/Cabulance
--- NOTE | 2019-09-12 15:43 | CM.DPNOTE ---
DCP Cont According to Dr Schaefer, patient will require ongoing IV abx, SNF is recommended to complete the course and patient aware and agreeable to such, requests [facility]. Sister Rosa notified and in agreement that SNF is best choice for DC. Placed call to Alda at [facility], they will accept patient, DC anticipated [id number]. IV dapto will not be feasible, August asks if there is an alternative IV abx? Placed call to Dr Schaefer, requested rapid COVID test and requested he investigate alternative IV abx options for SNF DC. Following closely. Dr Jefferson is scheduled to round on this patient Monday. NOELLE Stone
[2019-09-12] MEDS: ACETAMINOPHEN 325 MG TABLET 650 MG PO (17:25)
[2019-09-12 17:34] LABS: COVID19 -Nasal RAPID Negative (Negative)
[2019-09-12] MEDS: LORazepam 0.5 MG TABLET PO (18:50)
--- NOTE | 2019-09-12 20:53 | PC.NURSE ---
2049 - Pt c/o feeling confused. Able to answer all orientation questions. Reinforced treatment plan. Pt c/o backside hurts reports burning Pt able to roll to right side lying. Claudette-care and barrier cream applied. Bruising to buttock noted. Skin intact. Educated to repositioning and skin integrity. Reassurance provided. Call light in reach. Bed alarm on.
[2019-09-12] MEDS: DOXAZOSIN 4 MG TABLET PO (21:14)
--- NOTE | 2019-09-12 23:25 | PC.NURSE ---
pt refused milk of mag. q2turn. urinal. BLE elevated.
[2019-09-13] MEDS: LORazepam 0.5 MG TABLET PO ×2 (00:27→04:56)
[2019-09-13 00:47] LABS: Add Manual Diff / Slide Review NO; Basophils Absolute Auto 0 /uL (0-100); Basophils Percent Auto 0.5 % (0-2); Eosinophils Absolute Auto 400 /uL (0-450); Eosinophils Percent Auto 4.6 % (2-4); Hematocrit 23.7 % (41-53); Hemoglobin 7.9 g/dL (13.5-17.5); Lymphocytes Absolute Auto 900 /uL (1100-4500); Lymphocytes Percent Auto 9.9 % (25-40); Mean Corpuscular HGB Conc 33.3 % (30-36); Mean Corpuscular Hemoglobin 31.2 PG (26-34); Mean Corpuscular Volume 93.5 fL (80-100); Monocytes Absolute Auto 900 /uL (0-900); Monocytes Percent Auto 10.1 % (3-14); Neutrophils Absolute Auto 6600 /uL (1500-7000); Neutrophils Percent Auto 74.9 % (50-75); Platelet Count 219 X10^3/uL (150-400); Red Blood Cell Count 2.54 X10^6/uL (4.5-5.9); Red Cell Distribution Width 14.9 % (11.6-14.8); White Blood Cell Count 8.9 X10^3/uL (4.5-11.0)
[2019-09-13 00:59] LABS: BUN Creatinine Ratio 28.9 (6-22); Blood Urea Nitrogen 83 mg/dL (9-20); Calcium 7.9 mg/dL (8.4-10.2); Carbon Dioxide 23 mmol/L (22-32); Chloride 96 mmol/L (98-107); Estimated Glomerular Filt Rate 22.1 mL/min (>60); Glucose 174 mg/dL (80-110); HEMOLYSIS < 15 (0-50); Potassium 4.7 mmol/L (3.4-5.1); Sodium 128 mmol/L (137-145)
[2019-09-13] MEDS: ACETAMINOPHEN 325 MG TABLET 650 MG PO (01:04)
[2019-09-13 05:00] VITALS: BP 153/68; PULSE 77; RESP 16; TEMP 36.7; O2SAT 94
--- NOTE | 2019-09-13 05:53 | PC.NURSE ---
Pt frequently calling out, requesting to be sat up or to be put in his wheelchair. Needs reminders to orient to situation and day. At times pt is pleasant, at times agitated/frustrated.
--- NOTE | 2019-09-13 07:31 | PM.DS.1 ---
History of Present Illness History of Present Illness Date Patient Seen: 09/13/19 Time Patient Seen: 07:31 Chief complaint: right leg pain, known infection Narrative: Patient is a 68-year-old male patient of Dr. Quintana. He apparently has been in his usual state health until the last few days when he has had increasing pain in his right leg. He has recently seen by his wound care doctor for a Pseudomonas positive culture and was placed on cefepime which he got his 1st dose yesterday. Parent had increasing pain in his right side because of some questionable trauma and was brought in today. He has apparently been having issues with his left leg and is wondering what the cause is. No other changes. Has not fallen. Denies is only drinking 2 beers a day. He has otherwise had no fevers or chills no chest pain. No shortness of breath no abdominal pain. His leg has been hurting on a consistent basis but he does not feel the left one quite as much. He has had some trauma apparently with his wheelchair. Otherwise he has been feeling well. Brought in today for increasing cellulitis in the left leg. Past medical history. Degenerative joint disease with previous surgeries on spinal cord with history of fractures and chronic pain issues, alcohol abuse, narcotic dependency, duodenal ulcer, gout, history of recurrent UTI, hypertension, type 2 diabetes, renal failure, chronic anemia thought to be secondary to chronic disease as well as previous GI bleed. Past surgical history. C2-T2 posterior spinal instrumentation and fusion, C3-C7 laminectomy, posterior spinal instrumentation 10 to 12 T or thoracic spine, Family history. 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 Does not smoke, no use of illicit drugs, Discharge Providers Provider Date of admission: 09/10/19 20:57 Discharge Date: 09/13/19 Primary care physician: Jim Quintana MD Consults: 09/10/19 22:07 Consult to Dietitian, Adult Routine Comment: Reason For Exam: his 09/10/19 22:43 Consult to Dietitian, Adult Routine Comment: Reason For Exam: bilateral LE cellulitus 09/11/19 08:39 Consult to Wound Care Routine Comment: Consulting Provider: [facility] 07/09/20 08:42 Consult to Physical Therapy Evaluate & Treat Comment: Physician Instructions: Evaluate and Treat Discharge provider: Arcelia Jefferson MD Summary Hospital Course Discharge Diagnosis: 1. Anemia, normocytic/normochromic, likely multifactorial from chronic disease and alcoholism 2. Hypertension, chronic 3. Left leg cellulitis with leg ulcers, Pseudomonas and MRSA 4. Diabetes mellitus type 2 5. Alcohol abuse 6. Chronic kidney disease, Stage 4 7. Generalized weakness 8. Hyponatremnia/hypochloremia, chronic Hospital Course: Patient was admitted for complications of chronic alcohol abuse with multiple falls over the weekend and worsening cellulitis of his left leg. Ultimately wound culture showed Pseudomonas and MRSA. He received 2 units of pack red blood cells to improve healing. Wound care was consulted and all parties agreed that he will be a challenging case with respect to healing secondary to his chronic disease, continued alcohol abuse, and uncontrolled diabetes in the setting of chronic renal failure. Secondary to his generalized weakness, ongoing alcohol abuse, and challenging social situation, he will be discharged to a [place] [facility] facility for the next 1-2 weeks. Follow-up with PCP thereafter. He will continue on IV vancomycin and cefepime at the SNF. Patient did have uncontrolled blood pressures throughout his stay, lisinopril 5 mg p.o. q.day was added and blood pressure will need to be re-evaluated after discharge. In addition, vancomycin trough will need to be taken on 09/16/2019. Sodium did fall below his baseline of 132 and will also need to be checked in the outpatient setting. Time spent on Discharge and Coordination of post-hospital care: 35 minutes Exam Vital Signs (past 8 hours): - 09/13/19 05:00 Temperature 98.0 F Pulse Rate 77 Respiratory Rate 16 Blood Pressure 153/68 H Pulse Oximetry 94 Oxygen Delivery Method Room Air Oxygen Flow Rate 0 Narrative Exam Narrative: GENERAL: Alert and oriented, appearing stated age and in no acute distress. HEENT: Head normocephalic/atraumatic. LUNGS: Clear to ausculation bilaterally, no wheezes, rhonchi or rales. CV: Normal S1 and S2 with regular rate and rhythm, 3/5 holosystolic murmur, no rubs or gallops. ABDOMEN: Soft, morbidly obese, non-tender, non-distended, organomegaly difficult to assess secondary to body habitus. Positive bowel sounds. EXTREMITIES: Bilateral lower extremities with dressings in place from ankle to knee, clean, dry intact. NEURO: Cranial nerves II through XII grossly intact, no focal deficits. PSYCH: Alert and oriented x 3. SKIN: As above. Objective Labs Result Diagrams: 09/13/19 00:41 09/13/19 00:41 Labs: Laboratory Results - last 24 hr 09/12/19 09/13/19 09/13/19 15:50 00:41 00:41 WBC 8.9 RBC 2.54 L Hgb 7.9 L Hct 23.7 L MCV 93.5 MCH 31.2 MCHC 33.3 RDW 14.9 H Plt Count 219 Neut % (Auto) 74.9 Lymph % (Auto) 9.9 L Sheridan % (Auto) 10.1 Eos % (Auto) 4.6 H Baso % (Auto) 0.5 Neut # (Auto) 6600 Lymph # (Auto) 900 L Sheridan # (Auto) 900 Eos # (Auto) 400 Baso # (Auto) 0 Sodium 128 L Potassium 4.7 Chloride 96 L Carbon Dioxide 23 BUN 83 H Creatinine 2.87 H Estimated GFR 22.1 L BUN/Creatinine Ratio 28.9 H Glucose 174 H Calcium 7.9 L COVID-19 PCR Negative Discharge Plan Discharge Plan Patient Disposition: SNF Transfer to: [facility] Discharge orders & Medications Prescriptions: New acetaminophen 325 mg Tablet 650 mg PO Q6HR PRN (Reason: Fever/Mild Pain (1-3)) Qty: 30 RF: 0 folic acid 1 mg Tablet 1 mg PO DAILY Qty: 30 RF: 0 lisinopril 5 mg Tablet 5 mg PO DAILY Qty: 30 RF: 0 cefepime in dextrose 5 % 1 gram/50 mL Piggyback 1 gm IV DAILY Qty: 30 RF: 0 multivitamin [Tab-A-Isidro] Tablet 1 tab PO DAILY Qty: 30 RF: 0 magnesium hydroxide [Milk of Magnesia] 400 mg/5 mL Suspension 30 ml PO DAILY PRN (Reason: Constipation) Qty: 270 RF: 0 vancomycin-water inject (PEG) 1 gram/200 mL Piggyback 1,000 mg IV Q24H MDD per pharmacy Qty: 73997 RF: 0 hydrocodone-acetaminophen 5-325 mg Tablet 1 tab PO DAILY Qty: 30 RF: 0 lorazepam 0.5 mg Tablet 0.5 mg PO Q4HR PRN (Reason: Anxiety) Qty: 90 RF: 0 Continued doxazosin 4 mg Tablet 4 mg PO BEDTIME RF: 0 furosemide 40 mg Tablet 80 mg PO DAILY RF: 0 duloxetine 60 mg capsule,delayed release(DR/EC) 60 mg PO BID RF: 0 polyethylene glycol 3350 17 gram/dose Powder 17 g PO DAILY PRN (Reason: Constipation) RF: 0 silver sulfadiazine [SSD] 1 % cream 1 applic TOPICAL TID RF: 0 lorazepam 0.5 mg tablet 0.5 mg PO TID PRN (Reason: Anxiety) RF: 0 citalopram 20 MG tablet 20 mg PO DAILY RF: 0 glimepiride 1 mg tablet 1 mg PO DAILY RF: 0 lidocaine 5 % adhesive patch,medicated 1 patch TOP DAILY Qty: 30 RF: 0 pantoprazole 40 mg Tablet,Delayed Release (Dr/Ec) 40 mg PO DAILY RF: 0 hydrocodone-acetaminophen 5-325 mg Tablet 1 tab PO BEDTIME RF: 0 multivitamin [Tab-A-Isidro] Tablet 1 tab PO DAILY Qty: 90 RF: 1 ferrous gluconate 324 mg (38 mg iron) tablet 324 mg PO DAILY RF: 0 allopurinol [Zyloprim] 100 mg tablet 200 mg PO DAILY RF: 0 atorvastatin [Lipitor] 40 mg tablet 40 mg PO BEDTIME RF: 0 melatonin 3 mg Tablet 6 mg PO BEDTIME RF: 0 Follow up/Referrals: Jim Quintana MD [Primary Care Provider] - ([facility] TO SCHEDULE F/U APPOINTMENT) Discharge Health Status Multidrug resistant organism: MRSA Precautions: [place] Diet/Activity/Treatments Diet: Carb-consistent/Diabetic and Low-protein/Renal Food texture: Regular Activity: wheelchair assist Oxygen: to keep sats > 88% Skin/Wound/Dressing Care Skin care: per wound care/SNF Report to your healthcare provider any signs of infection, such as:: chills, fever, night sweats, increased pain, unusual drainage and unusual redness Dressing: per wound care/SNF Special Rehabilitation Services Restrictions to mobility: fall risk, EtOH Visit Report/Discharge Packet Instructions: DI for Cellulitis -- Adult, DI for Prescription Opioid Use Discharge Data Primary Care Provider: Jim Quintana Discharges patient from system. Discharge Date/Time: 09/13/19 14:35 Quality VTE Deep Vein Thrombosis/Pulmonary Embolism Present on Admission: No
[2019-09-13] MEDS: CEFEPIME 1 GM in SODIUM CHLORIDE 0.9% 100 ML 200 ML IV (08:43)
[2019-09-13] MEDS: INSULIN ASPART 100 UNIT/ML INSULN PEN SUBCUT ×2 (08:44→12:28)
[2019-09-13] MEDS: DULOXETINE 30 MG CAPSULE 60 MG PO (08:45)
[2019-09-13] MEDS: FUROSEMIDE 40 MG TABLET 80 MG PO (08:45)
[2019-09-13] MEDS: PANTOPRAZOLE 40 MG TABLET PO (08:45)
[2019-09-13] MEDS: HYDROCODONE/ACET 5/325 TABLET 1 TAB PO (08:45)
[2019-09-13] MEDS: ENOXAPARIN 30 MG/0.3 ML SYRINGE SUBCUT (08:46)
[2019-09-13] MEDS: FOLIC ACID 1 MG TABLET PO (08:46)
[2019-09-13] MEDS: lisinopriL 5 MG TABLET PO (08:46)
[2019-09-13] MEDS: MULTIVITAMIN 1 TABLET 1 TAB PO (08:46)
[2019-09-13] MEDS: SODIUM CHLORIDE 0.9% FLUSH 10 ML IV (08:47)
[2019-09-13 09:00] VITALS: BP 156/55; PULSE 78; RESP 20; TEMP 36.5; O2SAT 96
[2019-09-13] MEDS: THIAMINE 100 MG TABLET PO (10:34)
[2019-09-13] MEDS: VANCOMYCIN 1,000 MG/200 ML PIGGYBACK 200 MG IV (10:34)
[2019-09-13 12:00] VITALS: BP 111/41; PULSE 76; RESP 18; TEMP 36.8; O2SAT 97
--- NOTE | 2019-09-13 14:01 | PC.NURSE ---
Addendum entered by Chyna Llanos R.N. 09/13/19 14:41: PATIENT LEFT BY WC W/ TRANSPORT STAFF FROM [facility] W/ DC PACKET AND ALL BELONGINGS. Addendum entered by Chyna Llanos R.N. 09/13/19 14:21: REPORT GIVEN TO MALIK AT [facility]. PICC LINE LEFT IN PLACE FOR IV ABX. Original Note: PATIENT'S DRSGS TO BLE CHANGED. CLEANSED LEGS WITH SOAP AND WATER TO DRY FLAKEY SKIN. ERYTHEMA WITHIN INK MARGINS. ULCERATIONS CLEANSED GENTLY W/ GAUZE AND NS. WOUND BASES YELLOW W/ SCANT BLEEDING AFTER DRSG GENTLY REMOVED WITHOUT RESISTANCE. NO ODOR TO WOUNDS. OLD DRSGS SATURATED WITH YELLOW SEROUS DRAINAGE. APPLIED EXUDRY, KERLIX AND TUBULAR STOCKINETTE. PATIENT GIVEN BED BATH AND UP TO W/ 2P ASSIST. READY FOR DC TO [facility]. PACKET COMPLETED.
--- NOTE | 2019-09-13 15:27 | CM.DPNOTE ---
DC Note DC to [facility] today via w/c van. patient and family remain aware and agreeable to plan. Dr Jefferson has completed signed med list, Rx and PASRR completed, all faxed to [facility] w/c /u scheduled for 1312, TAMARA Clemente made aware JW
== END 2019-09-13 14:35 | DRG 603 ==
LOC: ED 18:35 → AC 21:09
PROVIDERS: Admitting Provider Family Medicine; Emergency Provider Emergency Medicine; PCP Family Medicine; Referring Provider Emergency Medicine; Visit Provider Family Medicine
DX: L03.116 Cellulitis of left lower limb (principal); N18.4 Chronic kidney disease, stage 4 (severe); L97.821 Non-pressure chronic ulcer of other part of left lower leg limited to breakdown of skin; L97.811 Non-pressure chronic ulcer of other part of right lower leg limited to breakdown of skin; E87.1 Hypo-osmolality and hyponatremia; E11.22 Type 2 diabetes mellitus with diabetic chronic kidney disease; D63.1 Anemia in chronic kidney disease; I12.9 Hypertensive chronic kidney disease with stage 1 through stage 4 chronic kidney disease, or unspecified chronic kidney disease; B96.5 Pseudomonas (aeruginosa) (mallei) (pseudomallei) as the cause of diseases classified elsewhere; B95.62 Methicillin resistant Staphylococcus aureus infection as the cause of diseases classified elsewhere; F10.10 Alcohol abuse, uncomplicated; F32.9 Major depressive disorder, single episode, unspecified; Z87.891 Personal history of nicotine dependence; W19.XXXA Unspecified fall, initial encounter; Z11.59 Encounter for screening for other viral diseases
CPT/HCPCS: 36415; 36430; 36573; 36592; 71045; 73590; 80048; 80053; 80320; 81003; 81015; 82962; 83605; 83690; 83880; 84145; 84484; 85025; 85610; 86850; 86900; 86901; 87040; 87070; 87075; 87077; 87147; 87186; 87205; 87635; 93005; 96365; 96375; 96376; 96523; 97162; 99284; 99291; P9016; J0295; J0692; J0878; J1170; J1642; J1650; J2270

== ENCOUNTER → 2019-09-16 13:17 | Outpatient (ROUT) | payer MEDICARE, MEDICAID, SELFPAY ==
[2019-01-25 14:14] VITALS: PULSE 56; RESP 16; O2SAT 100
[2019-09-10 22:03] VITALS: BMI 37.6
[2019-09-16 14:47] LABS: Vancomycin Trough 13.7 ug/mL (10-20)
[2019-09-16 15:22] LABS: BUN Creatinine Ratio 34.9 (6-22); Blood Urea Nitrogen 87 mg/dL (9-20); Calcium 8.7 mg/dL (8.4-10.2); Carbon Dioxide 23 mmol/L (22-32); Chloride 104 mmol/L (98-107); Glucose 117 mg/dL (80-110); HEMOLYSIS < 15 (0-50); Potassium 4.4 mmol/L (3.4-5.1); Sodium 136 mmol/L (137-145)
== END ==
PROVIDERS: PCP Family Medicine; Visit Provider Internal Medicine
DX: A49.02 Methicillin resistant Staphylococcus aureus infection, unspecified site (principal)
CPT/HCPCS: 80048; 80202

== ENCOUNTER → 2019-09-17 09:51 | Outpatient (ROUT) | payer MEDICARE, MEDICAID, SELFPAY ==
[2019-01-25 14:14] VITALS: PULSE 56; RESP 16; O2SAT 100
[2019-09-10 22:03] VITALS: BMI 37.6
[2019-09-17 10:51] LABS: Vancomycin Trough 16.9 ug/mL (10-20)
== END ==
PROVIDERS: PCP Family Medicine; Visit Provider Nurse Practitioner
DX: Z79.899 Other long term (current) drug therapy (principal)
CPT/HCPCS: 80202

== ENCOUNTER → 2019-09-19 15:14 | Outpatient (CLI) | payer MEDICARE, MEDICAID, SELFPAY ==
[2019-01-25 14:14] VITALS: PULSE 56; RESP 16; O2SAT 100
[2019-09-10 22:03] VITALS: BMI 37.6
== END ==
PROVIDERS: PCP Family Medicine; Referring Provider Family Medicine; Visit Provider Family Medicine
DX: I87.2 Venous insufficiency (chronic) (peripheral) (principal); L97.821 Non-pressure chronic ulcer of other part of left lower leg limited to breakdown of skin; L97.811 Non-pressure chronic ulcer of other part of right lower leg limited to breakdown of skin; F10.20 Alcohol dependence, uncomplicated; N18.4 Chronic kidney disease, stage 4 (severe); D63.8 Anemia in other chronic diseases classified elsewhere; L03.116 Cellulitis of left lower limb; L03.115 Cellulitis of right lower limb; B96.5 Pseudomonas (aeruginosa) (mallei) (pseudomallei) as the cause of diseases classified elsewhere; B95.62 Methicillin resistant Staphylococcus aureus infection as the cause of diseases classified elsewhere
CPT/HCPCS: 97597; 99214

== ENCOUNTER → 2019-09-20 09:02 | Outpatient (ROUT) | payer MEDICARE, MEDICAID, SELFPAY ==
[2019-01-25 14:14] VITALS: PULSE 56; RESP 16; O2SAT 100
[2019-09-10 22:03] VITALS: BMI 37.6
[2019-09-20 10:09] LABS: Vancomycin Trough 18.3 ug/mL (10-20)
== END ==
PROVIDERS: PCP Family Medicine; Visit Provider Internal Medicine
DX: Z79.899 Other long term (current) drug therapy (principal)
CPT/HCPCS: 80202

== ENCOUNTER → 2019-09-23 11:16 | Outpatient (ROUT) | payer MEDICARE, MEDICAID, SELFPAY ==
[2019-01-25 14:14] VITALS: PULSE 56; RESP 16; O2SAT 100
[2019-09-10 22:03] VITALS: BMI 37.6
[2019-09-23 11:33] LABS: BUN Creatinine Ratio 23.7 (6-22); Blood Urea Nitrogen 56 mg/dL (9-20); Calcium 8.4 mg/dL (8.4-10.2); Carbon Dioxide 28 mmol/L (22-32); Chloride 101 mmol/L (98-107); Estimated Glomerular Filt Rate 27.7 mL/min (>60); Glucose 127 mg/dL (80-110); HEMOLYSIS < 15 (0-50); Potassium 4.2 mmol/L (3.4-5.1); Sodium 136 mmol/L (137-145)
[2019-09-23 11:37] LABS: Vancomycin Trough 18.7 ug/mL (10-20)
[2019-09-24 16:08] LABS: COVID19 Sendout Not Detected (Not Detected)
== END ==
PROVIDERS: PCP Family Medicine; Visit Provider Internal Medicine
DX: Z11.59 Encounter for screening for other viral diseases (principal)
CPT/HCPCS: 80048; 80202; 87635

== ENCOUNTER → 2019-09-26 16:19 | Outpatient (CLI) | payer MEDICARE, MEDICAID, SELFPAY ==
[2019-01-25 14:14] VITALS: PULSE 56; RESP 16; O2SAT 100
[2019-09-10 22:03] VITALS: BMI 37.6
== END ==
PROVIDERS: PCP Family Medicine; Referring Provider Family Medicine; Visit Provider Family Medicine
DX: I87.2 Venous insufficiency (chronic) (peripheral) (principal); L97.821 Non-pressure chronic ulcer of other part of left lower leg limited to breakdown of skin; L97.811 Non-pressure chronic ulcer of other part of right lower leg limited to breakdown of skin
CPT/HCPCS: 99213

== ENCOUNTER → 2019-09-27 10:10 | Outpatient (ROUT) | payer MEDICARE, MEDICAID, SELFPAY ==
[2019-01-25 14:14] VITALS: PULSE 56; RESP 16; O2SAT 100
[2019-09-10 22:03] VITALS: BMI 37.6
[2019-09-27 10:42] LABS: Vancomycin Trough 18.2 ug/mL (10-20)
== END ==
PROVIDERS: PCP Family Medicine; Visit Provider Internal Medicine
DX: Z79.899 Other long term (current) drug therapy (principal)
CPT/HCPCS: 80202

== ENCOUNTER → 2019-10-01 11:02 | Outpatient (ROUT) | payer MEDICARE, MEDICAID, SELFPAY ==
[2019-01-25 14:14] VITALS: PULSE 56; RESP 16; O2SAT 100
[2019-09-10 22:03] VITALS: BMI 37.6
[2019-10-01 11:13] LABS: Add Manual Diff / Slide Review NO; Basophils Absolute Auto 100 /uL (0-100); Basophils Percent Auto 1.2 % (0-2); Eosinophils Absolute Auto 500 /uL (0-450); Eosinophils Percent Auto 8.6 % (2-4); Hematocrit 30.2 % (41-53); Lymphocytes Absolute Auto 600 /uL (1100-4500); Lymphocytes Percent Auto 10.2 % (25-40); Mean Corpuscular Hemoglobin 30.7 PG (26-34); Mean Corpuscular Volume 92.9 fL (80-100); Monocytes Absolute Auto 500 /uL (0-900); Monocytes Percent Auto 8.6 % (3-14); Neutrophils Absolute Auto 4400 /uL (1500-7000); Neutrophils Percent Auto 71.4 % (50-75); Platelet Count 222 X10^3/uL (150-400); Red Blood Cell Count 3.25 X10^6/uL (4.5-5.9); Red Cell Distribution Width 14.8 % (11.6-14.8); White Blood Cell Count 6.1 X10^3/uL (4.5-11.0)
[2019-10-01 11:30] LABS: BUN Creatinine Ratio 26.8 (6-22); Blood Urea Nitrogen 61 mg/dL (9-20); Calcium 8.5 mg/dL (8.4-10.2); Carbon Dioxide 28 mmol/L (22-32); Chloride 99 mmol/L (98-107); Estimated Glomerular Filt Rate 28.8 mL/min (>60); Glucose 147 mg/dL (80-110); HEMOLYSIS 20 (0-50); Potassium 4.9 mmol/L (3.4-5.1); Sodium 134 mmol/L (137-145)
[2019-10-01 11:36] LABS: Vancomycin Trough 17.8 ug/mL (10-20)
== END ==
PROVIDERS: PCP Family Medicine; Visit Provider Internal Medicine
DX: Z79.899 Other long term (current) drug therapy (principal)
CPT/HCPCS: 80048; 80202; 85025

== ENCOUNTER → 2019-10-01 15:11 | Outpatient (CLI) | payer MEDICARE, MEDICAID, SELFPAY ==
[2019-01-25 14:14] VITALS: PULSE 56; RESP 16; O2SAT 100
[2019-09-10 22:03] VITALS: BMI 37.6
== END ==
PROVIDERS: PCP Family Medicine; Referring Provider Family Medicine; Visit Provider Family Medicine
DX: I87.2 Venous insufficiency (chronic) (peripheral) (principal); L97.821 Non-pressure chronic ulcer of other part of left lower leg limited to breakdown of skin; F10.20 Alcohol dependence, uncomplicated; N18.4 Chronic kidney disease, stage 4 (severe); D63.8 Anemia in other chronic diseases classified elsewhere
CPT/HCPCS: 29581; 99213

== ENCOUNTER → 2019-10-02 13:57 | Outpatient (CLI) | payer MEDICARE, MEDICAID, SELFPAY ==
[2019-01-25 14:14] VITALS: PULSE 56; RESP 16; O2SAT 100
[2019-09-10 22:03] VITALS: BMI 37.6
[2019-10-02 14:24] VITALS: BP 101/76; PULSE 72; RESP 16; TEMP 36.4; O2SAT 96
[2019-10-02] MEDS: DARBEPOETIN 200 MCG/0.4 ML SYRINGE SUBCUT (14:26)
== END ==
PROVIDERS: PCP Family Medicine; Referring Provider Family Medicine; Visit Provider Internal Medicine
DX: E11.22 Type 2 diabetes mellitus with diabetic chronic kidney disease (principal); I12.9 Hypertensive chronic kidney disease with stage 1 through stage 4 chronic kidney disease, or unspecified chronic kidney disease; N18.9 Chronic kidney disease, unspecified; D63.1 Anemia in chronic kidney disease
CPT/HCPCS: 96372; J0881

== ENCOUNTER → 2019-10-04 13:12 | Outpatient (ROUT) | payer MEDICARE, MEDICAID, SELFPAY ==
[2019-01-25 14:14] VITALS: PULSE 56; RESP 16; O2SAT 100
[2019-09-10 22:03] VITALS: BMI 37.6
[2019-10-04 13:36] LABS: BUN Creatinine Ratio 27.7 (6-22); Blood Urea Nitrogen 65 mg/dL (9-20); Calcium 8.6 mg/dL (8.4-10.2); Carbon Dioxide 29 mmol/L (22-32); Chloride 99 mmol/L (98-107); Estimated Glomerular Filt Rate 27.8 mL/min (>60); Glucose 121 mg/dL (80-110); HEMOLYSIS 22 (0-50); Potassium 4.8 mmol/L (3.4-5.1); Sodium 135 mmol/L (137-145)
[2019-10-04 13:40] LABS: Vancomycin Trough 16.4 ug/mL (10-20)
== END ==
PROVIDERS: PCP Family Medicine; Visit Provider Internal Medicine
DX: Z79.899 Other long term (current) drug therapy (principal)
CPT/HCPCS: 80048; 80202

== ENCOUNTER → 2019-10-07 10:49 | Outpatient (CLI) | payer MEDICARE, MEDICAID, SELFPAY ==
[2019-01-25 14:14] VITALS: PULSE 56; RESP 16; O2SAT 100
[2019-09-10 22:03] VITALS: BMI 37.6
== END ==
PROVIDERS: PCP Family Medicine; Referring Provider Family Medicine; Visit Provider Family Medicine
DX: I87.2 Venous insufficiency (chronic) (peripheral) (principal); L97.821 Non-pressure chronic ulcer of other part of left lower leg limited to breakdown of skin; F10.20 Alcohol dependence, uncomplicated; N18.4 Chronic kidney disease, stage 4 (severe); D63.8 Anemia in other chronic diseases classified elsewhere
CPT/HCPCS: 29581; 99212; 99213

== ENCOUNTER → 2019-10-11 12:24 | Outpatient (ROUT) | payer MEDICARE, MEDICAID, SELFPAY ==
[2019-01-25 14:14] VITALS: PULSE 56; RESP 16; O2SAT 100
[2019-09-10 22:03] VITALS: BMI 37.6
[2019-10-11 13:01] LABS: BUN Creatinine Ratio 25.1 (6-22); Blood Urea Nitrogen 57 mg/dL (9-20); Calcium 8.6 mg/dL (8.4-10.2); Carbon Dioxide 26 mmol/L (22-32); Chloride 99 mmol/L (98-107); Estimated Glomerular Filt Rate 28.9 mL/min (>60); Glucose 172 mg/dL (80-110); HEMOLYSIS 26 (0-50); Potassium 4.6 mmol/L (3.4-5.1); Sodium 134 mmol/L (137-145)
[2019-10-11 13:06] LABS: Vancomycin Trough 17.2 ug/mL (10-20)
== END ==
PROVIDERS: PCP Family Medicine; Visit Provider Internal Medicine
DX: L03.116 Cellulitis of left lower limb (principal); B96.5 Pseudomonas (aeruginosa) (mallei) (pseudomallei) as the cause of diseases classified elsewhere; B95.62 Methicillin resistant Staphylococcus aureus infection as the cause of diseases classified elsewhere
CPT/HCPCS: 80048; 80202

== ENCOUNTER → 2019-10-14 14:02 | Outpatient (CLI) | payer MEDICARE, MEDICAID, SELFPAY ==
[2019-01-25 14:14] VITALS: PULSE 56; RESP 16; O2SAT 100
[2019-09-10 22:03] VITALS: BMI 37.6
== END ==
PROVIDERS: PCP Family Medicine; Referring Provider Family Medicine; Visit Provider Family Medicine
DX: I87.2 Venous insufficiency (chronic) (peripheral) (principal); L97.821 Non-pressure chronic ulcer of other part of left lower leg limited to breakdown of skin; F10.20 Alcohol dependence, uncomplicated; N18.4 Chronic kidney disease, stage 4 (severe); D63.8 Anemia in other chronic diseases classified elsewhere
CPT/HCPCS: 29581; 99213

== ENCOUNTER → 2019-10-15 12:02 | Outpatient (ROUT) | payer MEDICARE, MEDICAID, SELFPAY ==
[2019-01-25 14:14] VITALS: PULSE 56; RESP 16; O2SAT 100
[2019-09-10 22:03] VITALS: BMI 37.6
[2019-10-15 12:10] LABS: Add Manual Diff / Slide Review NO; Basophils Absolute Auto 100 /uL (0-100); Eosinophils Absolute Auto 400 /uL (0-450); Eosinophils Percent Auto 6.7 % (2-4); Hematocrit 33.6 % (41-53); Hemoglobin 11.1 g/dL (13.5-17.5); Lymphocytes Absolute Auto 800 /uL (1100-4500); Lymphocytes Percent Auto 12.3 % (25-40); Mean Corpuscular HGB Conc 32.9 % (30-36); Mean Corpuscular Hemoglobin 30.3 PG (26-34); Monocytes Absolute Auto 600 /uL (0-900); Monocytes Percent Auto 8.9 % (3-14); Neutrophils Absolute Auto 4800 /uL (1500-7000); Neutrophils Percent Auto 71.1 % (50-75); Platelet Count 195 X10^3/uL (150-400); Red Blood Cell Count 3.65 X10^6/uL (4.5-5.9); Red Cell Distribution Width 15.5 % (11.6-14.8); White Blood Cell Count 6.7 X10^3/uL (4.5-11.0)
== END ==
PROVIDERS: PCP Family Medicine; Visit Provider Internal Medicine
DX: D64.9 Anemia, unspecified (principal)
CPT/HCPCS: 85025

== ENCOUNTER → 2019-10-16 10:59 | Outpatient (ROUT) | payer MEDICARE, MEDICAID, SELFPAY ==
[2019-01-25 14:14] VITALS: PULSE 56; RESP 16; O2SAT 100
[2019-09-10 22:03] VITALS: BMI 37.6
[2019-10-16 11:14] LABS: Add Manual Diff / Slide Review NO; Basophils Absolute Auto 100 /uL (0-100); Eosinophils Absolute Auto 500 /uL (0-450); Eosinophils Percent Auto 7.2 % (2-4); Hematocrit 33.3 % (41-53); Hemoglobin 10.9 g/dL (13.5-17.5); Lymphocytes Absolute Auto 900 /uL (1100-4500); Mean Corpuscular HGB Conc 32.6 % (30-36); Monocytes Absolute Auto 600 /uL (0-900); Monocytes Percent Auto 9.1 % (3-14); Neutrophils Absolute Auto 4500 /uL (1500-7000); Neutrophils Percent Auto 68.7 % (50-75); Platelet Count 184 X10^3/uL (150-400); Red Blood Cell Count 3.62 X10^6/uL (4.5-5.9); Red Cell Distribution Width 15.5 % (11.6-14.8); White Blood Cell Count 6.5 X10^3/uL (4.5-11.0)
[2019-10-16 11:21] LABS: Albumin 4.2 g/dL (3.5-5.0); HEMOLYSIS 38 (0-50)
[2019-10-16 11:33] LABS: HEMOLYSIS < 15 (0-50); Iron 53 ug/dL (49-181)
[2019-10-16 11:44] LABS: Percent Iron Saturation 21 % (20-50); Total Iron Binding Capacity 256 ug/dL (261-462); Transferrin 171 mg/dL (206-381)
[2019-10-16 11:56] LABS: Ferritin 166 ng/mL (18-464)
[2019-10-16 16:41] LABS: BUN Creatinine Ratio 26.5 (6-22); Blood Urea Nitrogen 63 mg/dL (9-20); Calcium 8.4 mg/dL (8.4-10.2); Carbon Dioxide 24 mmol/L (22-32); Chloride 98 mmol/L (98-107); Estimated Glomerular Filt Rate 27.4 mL/min (>60); Glucose 133 mg/dL (80-110); Phosphorous 5.6 mg/dL (2.3-3.7); Potassium 4.7 mmol/L (3.4-5.1); Sodium 134 mmol/L (137-145)
== END ==
PROVIDERS: PCP Family Medicine; Visit Provider Internal Medicine
DX: N19 Unspecified kidney failure (principal); D64.9 Anemia, unspecified
CPT/HCPCS: 80069; 82043; 82570; 82728; 83540; 83550; 83970; 85025

== ENCOUNTER → 2019-10-21 15:57 | Outpatient (CLI) | payer MEDICARE, MEDICAID, SELFPAY ==
[2019-01-25 14:14] VITALS: PULSE 56; RESP 16; O2SAT 100
[2019-09-10 22:03] VITALS: BMI 37.6
== END ==
PROVIDERS: PCP Family Medicine; Referring Provider Family Medicine; Visit Provider Family Medicine
DX: I87.2 Venous insufficiency (chronic) (peripheral) (principal); L97.821 Non-pressure chronic ulcer of other part of left lower leg limited to breakdown of skin; F10.20 Alcohol dependence, uncomplicated; N18.4 Chronic kidney disease, stage 4 (severe); D63.8 Anemia in other chronic diseases classified elsewhere
CPT/HCPCS: 29581; 99213

== ENCOUNTER → 2019-10-23 12:57 | Outpatient (CLI) | payer MEDICARE, MEDICAID, SELFPAY ==
[2019-01-25 14:14] VITALS: PULSE 56; RESP 16; O2SAT 100
[2019-09-10 22:03] VITALS: BMI 37.6
[2019-10-23 13:30] VITALS: BP 128/66; PULSE 71; RESP 16; TEMP 36.7; O2SAT 98
--- NOTE | 2019-10-23 13:52 | P.PNONC_ITS ---
PN -Subjective Interval history: Mr. Tubbs presents today for follow-up of his anemia of chronic renal insufficiency. He was previously on Aranesp in 2018 and had a good response to this. In January 2019 he had a GI bleed for which he was hospitalized for 4 weeks and transfuse a total of 9 units. Upper endoscopy and colonoscopy were d one. More recently has had problems with cellulitis. He was rehospitalized with worsening cellulitis and was at a care facility for a period of time. He was seen in the office on September 17 and at that time had a hemoglobin of 7.9 hematocrit 23.7 with normal white count and platelets. He had a normal her RDW and and normal red cell indices. He was diagnosed with anemia of chronic renal insufficiency and started on Aranesp. He got a 200 mcg dose on September 17 and October 01. He comes today for a follow-up assessment. From his perspective is feeling fairly good. He still has chronic pain in his neck and back which has not changed. He has generalized weakness and fatigue which is a little better than it was. He has not had any bleeding issues. He denies localized weakness, fever, chills, nausea, vomiting, cough or shortness of breath. All other systems are negative. Past medical history 1. Previous surgeries include removal of a vein from his leg, cervical spine fusion after fractures, thoracic spine surgery, colostomy due to diverticulitis, arm fractures and a total knee replacement 2. High blood pressure 3. Adult onset diabetes 4. Remote history of peptic ulcer disease with no current symptoms 5. He denies rheumatic fever, tuberculosis, heart attacks, strokes, pneumonia or any kind of cancer 6. No family history of blood disorders 7. He is . He is accompanied by caregiver. He is not a smoker and has been a drinker in the past but not currently. - Patient Self-Reported Symptoms SR Skin issues: Blistering or peeling SR Genitourinary issues: Sexual difficulties Home Medications and Allergies Home Medications Medication Instructions Recorded Confirmed Type citalopram 20 mg PO DAILY 12/25/17 10/23/19 History glimepiride 1 mg PO DAILY 03/22/18 10/23/19 History doxazosin 4 mg PO BEDTIME 06/07/18 10/23/19 History furosemide 80 mg PO DAILY 09/27/18 10/23/19 History duloxetine 60 mg PO BID 09/28/18 10/23/19 History polyethylene glycol 3350 17 g PO DAILY PRN 09/28/18 10/23/19 History lorazepam 0.5 mg PO TID PRN 11/12/18 10/23/19 History silver sulfadiazine [SSD] 1 applic TOPICAL TID 11/12/18 10/23/19 History lidocaine 1 patch TOP DAILY #30 each 12/19/18 10/23/19 Rx hydrocodone-acetaminophen 1 tab PO BEDTIME 08/08/19 10/23/19 History pantoprazole 40 mg PO DAILY 08/08/19 10/23/19 History multivitamin [Tab-A-Isidro] 1 tab PO DAILY #90 tab 08/12/19 10/23/19 Rx allopurinol [Zyloprim] 200 mg PO DAILY 09/12/19 10/23/19 History atorvastatin [Lipitor] 40 mg PO BEDTIME 09/12/19 10/23/19 History ferrous gluconate 324 mg PO DAILY 09/12/19 10/23/19 History melatonin 6 mg PO BEDTIME 09/12/19 10/23/19 History acetaminophen 650 mg PO Q6HR PRN #30 tab 09/13/19 10/23/19 Rx cefepime in dextrose 5 % 1 gm IV DAILY #30 ea 09/13/19 10/23/19 Rx folic acid 1 mg PO DAILY #30 tab 09/13/19 10/23/19 Rx hydrocodone-acetaminophen 1 tab PO DAILY #30 tab 09/13/19 10/23/19 Rx lisinopril 5 mg PO DAILY #30 tab 09/13/19 10/23/19 Rx lorazepam 0.5 mg PO Q4HR PRN #90 tab 09/13/19 10/23/19 Rx magnesium hydroxide [Milk of 30 ml PO DAILY PRN #270 ml 09/13/19 10/23/19 Rx Magnesia] multivitamin [Tab-A-Isidro] 1 tab PO DAILY #30 tab 09/13/19 10/23/19 Rx Allergies Allergy/AdvReac Type Severity Reaction Status Date / Time latex Allergy Mild IRRITATION Verified 06/13/19 16:39 carisoprodol [From Soma] Allergy Verified 06/13/19 16:39 hydromorphone Allergy Verified 06/13/19 16:39 Sulfa (Sulfonamide AdvReac Mild N&V 1HOUR Verified 06/13/19 16:39 Antibiotics) AFTER RX, THINKS IT IS RELATED Exam Vital signs: Vital Signs Temp Pulse Resp BP Pulse Ox 10/23/19 13:30 98.0 F 71 16 128/66 98 Intake and Output 10/22/19 10/23/19 10/23/19 23:59 07:59 15:59 Other: Weight 122 kg Patient Weight 10/23/19 23:59 Weight 122 kg Narrative: He was awake, alert and oriented x3. He was fully and ambulatory in no acute distress. He was in a wheelchair. Results - Imaging Additional studies: Procedures Closure of skin and subcutaneous tissue of other sites (08/29/13) Colonoscopy (06/05/13) Control Bleeding in Gastrointestinal Tract, Via Natural or Artificial Opening Endoscopic (08/26/16) Excision of Duodenum, Via Natural or Artificial Opening Endoscopic, Diagnostic (01/22/19) Injection or infusion of other therapeutic or prophylactic substance (03/23/13) Insertion of Endotracheal Airway into Trachea, Via Natural or Artificial Opening (01/22/19) Insertion of Infusion Device into Superior Vena Cava, Percutaneous Approach (01/22/19) Other endoscopy of small intestine (06/05/13) Other nonoperative respiratory measurements (06/09/11) Respiratory Ventilation, Less than 24 Consecutive Hours (01/22/19) Total knee replacement (04/09/14) Transfusion of Nonautologous Red Blood Cells into Peripheral Vein, Percutaneous Approach (08/08/19) Transfusion of packed cells (07/09/13) Assessment and Plan (1) Anemia due to chronic kidney disease Status: Acute Mr. Rahman is responding well to his treatments. We will adjust his Aranesp to an every 3 week schedule. He will receive treatment today, in 3 weeks, 6 weeks and 9 weeks. I plan to see him in 12 weeks in conjunction with an Aranesp injection. Will try to adjust the program so that he has the fewest number of visits possible. He is not having any toxicities from his treatment and he will call if any other problems or issues should arise in the interim.
[2019-10-23] MEDS: DARBEPOETIN 200 MCG/0.4 ML SYRINGE SUBCUT (13:57)
== END ==
PROVIDERS: PCP Family Medicine; Referring Provider Family Medicine; Visit Provider Internal Medicine
DX: E11.22 Type 2 diabetes mellitus with diabetic chronic kidney disease (principal); I12.9 Hypertensive chronic kidney disease with stage 1 through stage 4 chronic kidney disease, or unspecified chronic kidney disease; N18.4 Chronic kidney disease, stage 4 (severe); D63.1 Anemia in chronic kidney disease; Z79.84 Long term (current) use of oral hypoglycemic drugs
CPT/HCPCS: 83036; 85025; 96372; 99213; J0881

== ENCOUNTER → 2019-11-04 11:11 | Outpatient (CLI) | payer MEDICARE, MEDICAID, SELFPAY ==
[2019-01-25 14:14] VITALS: PULSE 56; RESP 16; O2SAT 100
[2019-09-10 22:03] VITALS: BMI 37.6
== END ==
PROVIDERS: PCP Family Medicine; Referring Provider Family Medicine; Visit Provider Family Medicine
DX: I87.2 Venous insufficiency (chronic) (peripheral) (principal); L97.821 Non-pressure chronic ulcer of other part of left lower leg limited to breakdown of skin; N18.4 Chronic kidney disease, stage 4 (severe); D63.8 Anemia in other chronic diseases classified elsewhere
CPT/HCPCS: 29581; 87070; 87075; 87077; 87147; 87186; 87205; 99213

== ENCOUNTER 2019-11-13 17:05 | Inpatient (IN) | payer MEDICARE, MEDICAID, SELFPAY ==
[2019-01-25 14:14] VITALS: PULSE 56; RESP 16; O2SAT 100
[2019-09-10 22:03] VITALS: BMI 37.6
[2019-11-13] VITALS (11 sets, daily range): BP systolic 159–179; BP diastolic 74–84; PULSE 87–96; RESP 18–30; TEMP 37.5–38.7; O2SAT 93–97; BMI 42.2
--- NOTE | 2019-11-13 17:14 | DI.RAD.S_ITS ---
PROCEDURE: XR CHEST 1V INDICATIONS: suspected sepsis TECHNIQUE: One view of the chest was acquired. COMPARISON: [facility], CR, XR CHEST 1V, 09/07/2019, 23:55. FINDINGS: Surgical changes and devices: Surgical stabilization of the cervical spine and thoracolumbar spine. Lungs and pleura: Indistinct central vasculature. Thickening of the interstitial markings. No pleural effusions or pneumothorax. Mediastinum: Mediastinal contours appear normal. Heart size is diffusely enlarged though stable. Bones and chest wall: No suspicious bony lesions. Degenerative changes in the right shoulder. Overlying soft tissues appear unremarkable. IMPRESSION: 1. Central vascular and interstitial congestion suspicious for CHF in the setting of cardiomegaly. Underlying infection is not easily excluded. Dictated by: Rahel Comer M.D. on 11/13/2019 at 18:17 Approved by: Rahel Comer M.D. on 11/13/2019 at 18:18
[2019-11-13 17:39] LABS: Add Manual Diff / Slide Review NO; Basophils Absolute Auto 100 /uL (0-100); Basophils Percent Auto 0.4 % (0-2); Eosinophils Absolute Auto 100 /uL (0-450); Hematocrit 32.2 % (41-53); Hemoglobin 10.1 g/dL (13.5-17.5); Lymphocytes Absolute Auto 500 /uL (1100-4500); Lymphocytes Percent Auto 3.7 % (25-40); Mean Corpuscular HGB Conc 31.5 % (30-36); Mean Corpuscular Hemoglobin 29.7 PG (26-34); Mean Corpuscular Volume 94.3 fL (80-100); Monocytes Absolute Auto 1200 /uL (0-900); Monocytes Percent Auto 8.4 % (3-14); Neutrophils Absolute Auto 12700 /uL (1500-7000); Neutrophils Percent Auto 86.5 % (50-75); Platelet Count 202 X10^3/uL (150-400); Red Blood Cell Count 3.41 X10^6/uL (4.5-5.9); Red Cell Distribution Width 16.4 % (11.6-14.8); White Blood Cell Count 14.7 X10^3/uL (4.5-11.0)
--- NOTE | 2019-11-13 17:46 | ED.WEAKNESS ---
HPI - Weakness <Miroslava Jennifer, DO - Last Filed: 11/14/19 06:58> General Chief complaint: Weakness Stated complaint: weakness Time Seen by Provider: 11/13/19 17:09 Source: patient and EMS Mode of arrival: EMS Limitations: no limitations History of Present Illness HPI Narrative: Patient is a 61-year-old male with history of diabetic peripheral neuropathy ulcers on lower extremities presenting with generalized weakness today. He is not ambulatory and gets around by wheelchair but continuously transfer himself to in from chairs in bed. He says today he does feels extremely weak and fell off the toilet today. He is unsure if he hit is head he is not on any anti-platelet or anticoagulation medication. He denies any nausea or vomiting no focal weakness. He has no chest pain or shortness of breath. He overall just does not feel well. He is febrile in the ED. EMS reports calls on him frequently. MD Complaint: generalized weakness Onset (ago): day(s) Related Data Home Medications Medication Instructions Recorded Confirmed citalopram 20 mg PO DAILY 12/25/17 11/14/19 glimepiride 1 mg PO DAILY 03/22/18 11/14/19 doxazosin 4 mg PO BEDTIME 06/07/18 11/14/19 furosemide 80 mg PO DAILY 09/27/18 11/14/19 duloxetine 60 mg PO BID 09/28/18 11/14/19 polyethylene glycol 3350 17 g PO DAILY PRN 09/28/18 11/14/19 lorazepam 0.5 mg PO TID PRN 11/12/18 11/14/19 silver sulfadiazine [SSD] 1 applic TOPICAL TID 11/12/18 11/14/19 hydrocodone-acetaminophen 1 tab PO BEDTIME 08/08/19 11/14/19 pantoprazole 40 mg PO DAILY 08/08/19 11/14/19 allopurinol [Zyloprim] 200 mg PO DAILY 09/12/19 11/14/19 atorvastatin [Lipitor] 40 mg PO BEDTIME 09/12/19 11/14/19 ferrous gluconate 324 mg PO DAILY 09/12/19 11/14/19 melatonin 6 mg PO BEDTIME 09/12/19 11/14/19 Previous Rx's Medication Instructions Recorded lidocaine 1 patch TOP DAILY #30 each 12/19/18 multivitamin [Tab-A-Isidro] 1 tab PO DAILY #90 tab 08/12/19 acetaminophen 650 mg PO Q6HR PRN #30 tab 09/13/19 cefepime in dextrose 5 % 1 gm IV DAILY #30 ea 09/13/19 folic acid 1 mg PO DAILY #30 tab 09/13/19 hydrocodone-acetaminophen 1 tab PO DAILY #30 tab 09/13/19 lisinopril 5 mg PO DAILY #30 tab 09/13/19 lorazepam 0.5 mg PO Q4HR PRN #90 tab 09/13/19 magnesium hydroxide [Milk of 30 ml PO DAILY PRN #270 ml 09/13/19 Magnesia] multivitamin [Tab-A-Isidro] 1 tab PO DAILY #30 tab 09/13/19 Allergies Allergy/AdvReac Type Severity Reaction Status Date / Time latex Allergy Mild IRRITATION Verified 11/13/19 17:13 carisoprodol [From Soma] Allergy Verified 11/13/19 17:13 hydromorphone Allergy Verified 11/13/19 17:13 Sulfa (Sulfonamide AdvReac Mild N&V 1HOUR Verified 11/13/19 17:13 Antibiotics) AFTER RX, THINKS IT IS RELATED Review of Systems <Miroslava Rodriguez, DO - Last Filed: 11/14/19 06:58> Review of Systems ROS Unobtainable: All systems reviewed & are unremarkable except as noted in HPI and below Constitutional Constitutional: Denies chills, Reports fever(s) and Denies headache(s) Eyes Eyes: Denies change in vision, Denies eye discharge, Denies irritation and Denies loss of vision ENT Ears, Nose, Mouth, and Throat: Denies headache(s) Cardiovascular Cardiovascular: Denies chest pain, Denies syncope, Denies edema, Denies irregular heart rhythm, Reports leg ulcers, Denies lightheadedness, Denies palpitations, Denies dyspnea, Denies dyspnea on exertion and Denies orthopnea Respiratory Respiratory: Denies cough, Denies dyspnea, Denies dyspnea on exertion and Denies wheezing Gastrointestinal Gastrointestinal: Denies abdominal pain, Denies change in bowel habits, Denies diarrhea, Denies nausea and Denies vomiting Genitourinary Genitourinary: Denies oliguria and Reports difficulty urinating Musculoskeletal Musculoskeletal: Denies deformity and Denies muscle cramps Integumentary/Breasts Skin/Breast: Reports as per HPI Neurologic Neurologic: Denies syncope, Denies headache(s) and Denies loss of vision Endocrine Endocrine: Denies palpitations Allergic/Immunologic Allergic/Immunologic: Denies wheezing Patient History <Miroslava Rodriguez DO - Last Filed: 11/14/19 06:58> Medical History Alcoholism (Chronic) Anemia associated with chronic renal failure (Chronic) Cellulitis of lower leg (Chronic) Chronic kidney disease, stage 4 (severe) (Chronic) Chronic pain (Chronic) Depression (Chronic) Diabetes type 2, controlled (Chronic) Duodenal ulcer (Acute) GI bleed (Resolved) Gout, arthropathy (Chronic) History of cervical fracture (Resolved) Hyperparathyroidism (Chronic) Hypertension (Chronic) Left leg pain (Chronic) Symptomatic anemia (Chronic) Surgical History H/O cervical spine surgery (Acute) History of colectomy (Resolved) History of fusion of cervical spine (Chronic) Social History household members: none Smoking Status: Former smoker alcohol intake: current Smoking Status: Former smoker alcohol intake frequency: 0-2 drinks per day Alcohol type: beer Substance Use Type: does not use Exam <Miroslava Rodriguez DO - Last Filed: 11/14/19 06:58> Initial Vital Signs Initial Vital Signs: Vital Signs Temperature 101.7 F H 11/13/19 17:10 Pulse Rate 94 H 11/13/19 17:10 Respiratory Rate 18 11/13/19 17:10 Blood Pressure 177/81 H 11/13/19 17:10 Pulse Oximetry 95 11/13/19 17:10 GENERAL: Overweight chronically ill appearing male and in no acute distress. HEENT: Head atraumatic,EOMI, pupils reactive, face symmetric, moist mucous membranes CARDIOVASCULAR: Regular rate and rhythm without murmurs, rubs or gallops. RESPIRATORY: Breath sounds equal bilaterally, no wheezes rales or rhonchi. ABDOMEN: Soft, nontender. Normoactive bowel sounds all 4 quadrants. No guarding or rebound. EXTREMITIES: Normal range of motion, no clubbing or edema. Neurovascularly intact NEUROLOGICAL: Alert and oriented x4 SKIN: Warm, dry, no laceration, no petechiae, no rashes or lesions. Dressings in lower extremities in place <Sweta Garcia MD - Last Filed: 11/13/19 20:30> Initial Vital Signs Initial Vital Signs: Vital Signs Temperature 101.7 F H 11/13/19 17:10 Pulse Rate 94 H 11/13/19 17:10 Respiratory Rate 18 11/13/19 17:10 Blood Pressure 177/81 H 11/13/19 17:10 Pulse Oximetry 95 11/13/19 17:10 Scores <Miroslava Rodriguez DO - Last Filed: 11/14/19 06:58> ABCD2 Citation: Lancet. 2006Apr 01;369(0447):283-92. Validation and refinement of scores to predict very early stroke risk after transient ischaemic attack. Danica SC1, Rehan PM, Anthony MN, Jorge MF, Jolanta JS, Ermelinda AL, Lorenzo S. Course <Miroslava Rodriguez DO - Last Filed: 11/14/19 06:58> Orders Ordered: Acetaminophen (Tylenol) 650 mg PO Q6HR PRN PRN Reason: Fever/Mild Pain (1-3) Last Admin: 11/14/19 04:16 Dose: 650 mg Documented by: Admin: 11/13/19 21:56 Dose: 650 mg Documented by: QI Calcium Carbonate (Tums) 1,000 mg PO Q4HR PRN PRN Reason: Dyspepsia Clonidine HCl (Catapres) 0.1 mg PO Q4HR PRN PRN Reason: Alcohol Withdrawal Dextrose (D50w) 25 gm IV PRN PRN PRN Reason: Hypoglycemia Folic Acid (Folic Acid) 1 mg PO DAILY DAVID Haloperidol (Haldol) 2 mg IV Q1HR PRN PRN Reason: Hallucinations Haloperidol (Haldol) 2 mg PO Q1HR PRN PRN Reason: Hallucinations Sodium Chloride (Normal Saline 0.9%) 1,000 mls @ 150 mls/hr IV CONT DAVID Last Admin: 11/14/19 05:33 Dose: 150 mls/hr Documented by: Infusion: 11/14/19 03:20 Dose: 150 mls/hr Documented by: Admin: 11/13/19 20:39 Dose: 150 mls/hr Documented by: GUALBERTO Vancomycin HCl (Vancomycin) 1,000 mg in 200 mls @ 200 mls/hr IV Q24H [facility] Last Admin: 11/13/19 21:47 Dose: 200 mls/hr Documented by: QI Ceftriaxone Sodium/Dextrose (Rocephin) 2 gm in 50 mls @ 100 mls/hr IV Q24H [facility] Insulin Aspart (Novolog Flexpen) [facility]; Protocol Last Admin: 11/13/19 21:53 Dose: Not Given Documented by: QI Lorazepam (Ativan) 0 mg IV CIWAPRN PRN; Protocol PRN Reason: Alcohol Withdrawal Magnesium Hydroxide (Milk Of Magnesia) 30 ml PO DAILY PRN PRN Reason: Constipation Multivitamins (Tab-A-Isidro) 1 tab PO DAILY [facility] Naloxone HCl (Narcan) 0.2 mg IV Q2MIN PRN PRN Reason: Opiate Reversal Ondansetron HCl (Zofran) 4 mg IV Q8HR PRN PRN Reason: Nausea And Vomiting Pantoprazole Sodium (Protonix) 20 mg PO 0600 [facility] Last Admin: 11/14/19 05:29 Dose: 20 mg Documented by: DILCIA Thiamine HCl (Vitamin B-1) 100 mg PO DAILY [facility] Stop: 11/17/19 09:01 Vancomycin HCl (Vancomycin Trough) 1 request MISC NOW ONE Stop: 11/16/19 20:01 Discontinued Medications Acetaminophen (Tylenol) 975 mg PO NOW ONE Stop: 11/13/19 18:20 Last Admin: 11/13/19 18:23 Dose: 975 mg Documented by: RIMA Acetaminophen (Tylenol) 975 mg PO NOW ONE Stop: 11/13/19 18:25 Last Admin: 11/13/19 18:41 Dose: Not Given Documented by: RIMA Ceftriaxone Sodium/Dextrose (Rocephin) 2 gm in 50 mls @ 100 mls/hr IV NOW ONE Stop: 11/13/19 20:45 Last Infusion: 11/13/19 21:25 Dose: 100 mls/hr Documented by: Admin: 11/13/19 20:40 Dose: 100 mls/hr Documented by: GUALBERTO Vancomycin HCl (Vancomycin Per Pharmacy) 1 request MISC NOW ONE Stop: 11/13/19 20:17 Last Admin: 11/13/19 21:48 Dose: Not Given Documented by: QI Vancomycin HCl (Vancomycin Per Pharmacy) 1 request MISC NOW ONE Stop: 11/13/19 20:47 Last Admin: 11/13/19 21:50 Dose: Not Given Documented by: QI Vital Signs Vital signs: Vital Signs - 8 hr 11/13/19 17:10 11/13/19 17:11 11/13/19 17:30 Temperature 101.7 F H Pulse Rate 94 H 93 H 94 H Respiratory Rate 18 Blood Pressure 177/81 H 179/84 H Pulse Oximetry 95 96 95 11/13/19 18:09 11/13/19 18:30 11/13/19 19:00 Temperature Pulse Rate 94 H 95 H Respiratory Rate 30 H Blood Pressure Pulse Oximetry 94 96 95 11/13/19 19:19 11/13/19 19:30 11/13/19 20:00 Temperature 99.8 F H Pulse Rate 96 H 87 Respiratory Rate 23 22 Blood Pressure Pulse Oximetry 95 95 <Sweta Garcia MD - Last Filed: 11/13/19 20:30> Orders Ordered: Acetaminophen (Tylenol) 650 mg PO Q6HR PRN PRN Reason: Fever/Mild Pain (1-3) Last Admin: 11/14/19 04:16 Dose: 650 mg Documented by: Admin: 11/13/19 21:56 Dose: 650 mg Documented by: QI Calcium Carbonate (Tums) 1,000 mg PO Q4HR PRN PRN Reason: Dyspepsia Clonidine HCl (Catapres) 0.1 mg PO Q4HR PRN PRN Reason: Alcohol Withdrawal Dextrose (D50w) 25 gm IV PRN PRN PRN Reason: Hypoglycemia Folic Acid (Folic Acid) 1 mg PO DAILY DAVID Haloperidol (Haldol) 2 mg IV Q1HR PRN PRN Reason: Hallucinations Haloperidol (Haldol) 2 mg PO Q1HR PRN PRN Reason: Hallucinations Sodium Chloride (Normal Saline 0.9%) 1,000 mls @ 150 mls/hr IV CONT DAVID Last Admin: 11/14/19 05:33 Dose: 150 mls/hr Documented by: Infusion: 11/14/19 03:20 Dose: 150 mls/hr Documented by: Admin: 11/13/19 20:39 Dose: 150 mls/hr Documented by: GUALBERTO Vancomycin HCl (Vancomycin) 1,000 mg in 200 mls @ 200 mls/hr IV Q24H [facility] Last Admin: 11/13/19 21:47 Dose: 200 mls/hr Documented by: QI Ceftriaxone Sodium/Dextrose (Rocephin) 2 gm in 50 mls @ 100 mls/hr IV Q24H [facility] Insulin Aspart (Novolog Flexpen) 0 unit SUBCUT ACHS [facility]; Protocol Last Admin: 11/13/19 21:53 Dose: Not Given Documented by: QI Lorazepam (Ativan) 0 mg IV CIWAPRN PRN; Protocol PRN Reason: Alcohol Withdrawal Magnesium Hydroxide (Milk Of Magnesia) 30 ml PO DAILY PRN PRN Reason: Constipation Multivitamins (Tab-A-Isidro) 1 tab PO DAILY [facility] Naloxone HCl (Narcan) 0.2 mg IV Q2MIN PRN PRN Reason: Opiate Reversal Ondansetron HCl (Zofran) 4 mg IV Q8HR PRN PRN Reason: Nausea And Vomiting Pantoprazole Sodium (Protonix) 20 mg PO 0600 [facility] Last Admin: 11/14/19 05:29 Dose: 20 mg Documented by: DILCIA Thiamine HCl (Vitamin B-1) 100 mg PO DAILY [facility] Stop: 11/17/19 09:01 Vancomycin HCl (Vancomycin Trough) 1 request MISC NOW ONE Stop: 11/16/19 20:01 Discontinued Medications Acetaminophen (Tylenol) 975 mg PO NOW ONE Stop: 11/13/19 18:20 Last Admin: 11/13/19 18:23 Dose: 975 mg Documented by: RIMA Acetaminophen (Tylenol) 975 mg PO NOW ONE Stop: 11/13/19 18:25 Last Admin: 11/13/19 18:41 Dose: Not Given Documented by: RIMA Ceftriaxone Sodium/Dextrose (Rocephin) 2 gm in 50 mls @ 100 mls/hr IV NOW ONE Stop: 11/13/19 20:45 Last Infusion: 11/13/19 21:25 Dose: 100 mls/hr Documented by: Admin: 11/13/19 20:40 Dose: 100 mls/hr Documented by: GUALBERTO Vancomycin HCl (Vancomycin Per Pharmacy) 1 request MISC NOW ONE Stop: 11/13/19 20:17 Last Admin: 11/13/19 21:48 Dose: Not Given Documented by: QI Vancomycin HCl (Vancomycin Per Pharmacy) 1 request MISC NOW ONE Stop: 11/13/19 20:47 Last Admin: 11/13/19 21:50 Dose: Not Given Documented by: QI Vital Signs Vital signs: Vital Signs - 8 hr 11/13/19 17:10 11/13/19 17:11 11/13/19 17:30 Temperature 101.7 F H Pulse Rate 94 H 93 H 94 H Respiratory Rate 18 Blood Pressure 177/81 H 179/84 H Pulse Oximetry 95 96 95 11/13/19 18:09 11/13/19 18:30 11/13/19 19:00 Temperature Pulse Rate 94 H 95 H Respiratory Rate 30 H Blood Pressure Pulse Oximetry 94 96 95 11/13/19 19:19 11/13/19 19:30 11/13/19 20:00 Temperature 99.8 F H Pulse Rate 96 H 87 Respiratory Rate 23 22 Blood Pressure Pulse Oximetry 95 95 MDM - Weakness <Miroslava Rodriguez, - Last Filed: 11/14/19 06:58> Lab Data Result diagrams: 11/14/19 05:49 11/14/19 05:49 Labs: Lab Results 11/13/19 11/13/19 11/13/19 Range/Units 17:20 17:20 17:22 WBC 14.7 H (4.5-11.0) X10^3/uL RBC 3.41 L (4.5-5.9) X10^6/uL Hgb 10.1 L (13.5-17.5) g/dL Hct 32.2 L (41-53) % MCV 94.3 (80-100) fL MCH 29.7 (26-34) PG MCHC 31.5 (30-36) % RDW 16.4 H (11.6-14.8) % Plt Count 202 (150-400) X10^3/uL Neut % (Auto) 86.5 H (50-75) % Lymph % (Auto) 3.7 L (25-40) % [place] % (Auto) 8.4 (3-14) % Eos % (Auto) 1.0 L (2-4) % Baso % (Auto) 0.4 (0-2) % Neut # (Auto) 94579 H (3422-6243) /uL Lymph # (Auto) 500 L (0869-1233) /uL [place] # (Auto) 1200 H (0-900) /uL Eos # (Auto) 100 (0-450) /uL Baso # (Auto) 100 (0-100) /uL PT (10.1-12.7) SECONDS INR (0.9-1.3) APTT (26.4-36.2) SECONDS D-Dimer (<230) ng/mL Sodium (137-145) mmol/L Potassium (3.4-5.1) mmol/L Chloride (98-107) mmol/L Carbon Dioxide (22-32) mmol/L BUN (9-20) mg/dL Creatinine (0.66-1.25) mg/dL Estimated GFR (>60) mL/min BUN/Creatinine Ratio (6-22) Glucose (80-110) mg/dL Lactate (0.7-2.1) mmol/L Calcium (8.4-10.2) mg/dL Ferritin (18-464) ng/mL Total Bilirubin (0.2-1.3) mg/dL AST (17-59) IU/L ALT (<50) IU/L Alkaline Phosphatase (38-126) U/L Lactate Dehydrogenase (313-618) U/L C-Reactive Protein (<1.0) mg/dL Total Protein (6.3-8.2) g/dL Albumin (3.5-5.0) g/dL Globulin (1.7-4.1) g/dL Albumin/Globulin Ratio (1.0-2.8) Lipase (23-300) U/L Procalcitonin (<0.5) ng/mL Urine RBC 0-1/hpf (0-5/HPF) Urine WBC 5-10/hpf H (0-5/HPF) Urine Bacteria Moderate (10-30) H (None) Ur Culture Indicated? Specimen cultured COVID-19 PCR Negative (Negative) 11/13/19 11/13/19 11/13/19 Range/Units 17:22 17:22 17:22 WBC (4.5-11.0) X10^3/uL RBC (4.5-5.9) X10^6/uL Hgb (13.5-17.5) g/dL Hct (41-53) % MCV (80-100) fL MCH (26-34) PG MCHC (30-36) % RDW (11.6-14.8) % Plt Count (150-400) X10^3/uL Neut % (Auto) (50-75) % Lymph % (Auto) (25-40) % [place] % (Auto) (3-14) % Eos % (Auto) (2-4) % Baso % (Auto) (0-2) % Neut # (Auto) (7495-0752) /uL Lymph # (Auto) (5184-6796) /uL [place] # (Auto) (0-900) /uL Eos # (Auto) (0-450) /uL Baso # (Auto) (0-100) /uL PT 11.1 (10.1-12.7) SECONDS INR 1.0 (0.9-1.3) APTT 41 H D (26.4-36.2) SECONDS D-Dimer (<230) ng/mL Sodium 132 L (137-145) mmol/L Potassium 4.6 (3.4-5.1) mmol/L Chloride 97 L (98-107) mmol/L Carbon Dioxide 26 (22-32) mmol/L BUN 64 H (9-20) mg/dL Creatinine 2.85 H (0.66-1.25) mg/dL Estimated GFR 22.2 L (>60) mL/min BUN/Creatinine Ratio 22.5 H (6-22) Glucose 101 (80-110) mg/dL Lactate (0.7-2.1) mmol/L Calcium 8.6 (8.4-10.2) mg/dL Ferritin (18-464) ng/mL Total Bilirubin 0.6 (0.2-1.3) mg/dL AST 20 (17-59) IU/L ALT 9 (<50) IU/L Alkaline Phosphatase 108 (38-126) U/L Lactate Dehydrogenase (313-618) U/L C-Reactive Protein (<1.0) mg/dL Total Protein 7.4 (6.3-8.2) g/dL Albumin 4.0 (3.5-5.0) g/dL Globulin 3.4 (1.7-4.1) g/dL Albumin/Globulin Ratio 1.2 (1.0-2.8) Lipase 53 (23-300) U/L Procalcitonin 0.15 (<0.5) ng/mL Urine RBC (0-5/HPF) Urine WBC (0-5/HPF) Urine Bacteria (None) Ur Culture Indicated? COVID-19 PCR (Negative) 11/13/19 11/13/19 11/13/19 Range/Units 17:22 17:22 17:22 WBC (4.5-11.0) X10^3/uL RBC (4.5-5.9) X10^6/uL Hgb (13.5-17.5) g/dL Hct (41-53) % MCV (80-100) fL MCH (26-34) PG MCHC (30-36) % RDW (11.6-14.8) % Plt Count (150-400) X10^3/uL Neut % (Auto) (50-75) % Lymph % (Auto) (25-40) % [place] % (Auto) (3-14) % Eos % (Auto) (2-4) % Baso % (Auto) (0-2) % Neut # (Auto) (0200-6590) /uL Lymph # (Auto) (9812-5784) /uL [place] # (Auto) (0-900) /uL Eos # (Auto) (0-450) /uL Baso # (Auto) (0-100) /uL PT (10.1-12.7) SECONDS INR (0.9-1.3) APTT (26.4-36.2) SECONDS D-Dimer 457 H (<230) ng/mL Sodium (137-145) mmol/L Potassium (3.4-5.1) mmol/L Chloride (98-107) mmol/L Carbon Dioxide (22-32) mmol/L BUN (9-20) mg/dL Creatinine (0.66-1.25) mg/dL Estimated GFR (>60) mL/min BUN/Creatinine Ratio (6-22) Glucose (80-110) mg/dL Lactate 1.6 (0.7-2.1) mmol/L Calcium (8.4-10.2) mg/dL Ferritin 284 (18-464) ng/mL Total Bilirubin (0.2-1.3) mg/dL AST (17-59) IU/L ALT (<50) IU/L Alkaline Phosphatase (38-126) U/L Lactate Dehydrogenase 470 (313-618) U/L C-Reactive Protein (<1.0) mg/dL Total Protein (6.3-8.2) g/dL Albumin (3.5-5.0) g/dL Globulin (1.7-4.1) g/dL Albumin/Globulin Ratio (1.0-2.8) Lipase (23-300) U/L Procalcitonin (<0.5) ng/mL Urine RBC (0-5/HPF) Urine WBC (0-5/HPF) Urine Bacteria (None) Ur Culture Indicated? COVID-19 PCR (Negative) 11/13/19 Range/Units 17:22 WBC (4.5-11.0) X10^3/uL RBC (4.5-5.9) X10^6/uL Hgb (13.5-17.5) g/dL Hct (41-53) % MCV (80-100) fL MCH (26-34) PG MCHC (30-36) % RDW (11.6-14.8) % Plt Count (150-400) X10^3/uL Neut % (Auto) (50-75) % Lymph % (Auto) (25-40) % [place] % (Auto) (3-14) % Eos % (Auto) (2-4) % Baso % (Auto) (0-2) % Neut # (Auto) (3835-3645) /uL Lymph # (Auto) (5616-7349) /uL [place] # (Auto) (0-900) /uL Eos # (Auto) (0-450) /uL Baso # (Auto) (0-100) /uL PT (10.1-12.7) SECONDS INR (0.9-1.3) APTT (26.4-36.2) SECONDS D-Dimer (<230) ng/mL Sodium (137-145) mmol/L Potassium (3.4-5.1) mmol/L Chloride (98-107) mmol/L Carbon Dioxide (22-32) mmol/L BUN (9-20) mg/dL Creatinine (0.66-1.25) mg/dL Estimated GFR (>60) mL/min BUN/Creatinine Ratio (6-22) Glucose (80-110) mg/dL Lactate (0.7-2.1) mmol/L Calcium (8.4-10.2) mg/dL Ferritin (18-464) ng/mL Total Bilirubin (0.2-1.3) mg/dL AST (17-59) IU/L ALT (<50) IU/L Alkaline Phosphatase (38-126) U/L Lactate Dehydrogenase (313-618) U/L C-Reactive Protein 6.0 H (<1.0) mg/dL Total Protein (6.3-8.2) g/dL Albumin (3.5-5.0) g/dL Globulin (1.7-4.1) g/dL Albumin/Globulin Ratio (1.0-2.8) Lipase (23-300) U/L Procalcitonin (<0.5) ng/mL Urine RBC (0-5/HPF) Urine WBC (0-5/HPF) Urine Bacteria (None) Ur Culture Indicated? COVID-19 PCR (Negative) Urine Dip Bedside Urine Glucose Negative Bedside Urine Bilirubin - Negative Bedside Urine Ketone - Negative Urine Specific [place] 1.010 Bedside Urine Occult Blood +/- Bedside Urine pH 6.0 Bedside Urine Protein +/- 15 Bedside Urine Urobilinogen - Negative Bedside Urine Nitrite - Negative Bedside Urine Leukocytes +/- 15 Esterase MDM Narrative Medical decision making narrative: Patient signed out to Dr. Garcia <Sweta aGrcia MD - Last Filed: 11/13/19 20:30> Medical Records Attestation: I reviewed the patient's medical records. Lab Data Attestation: I reviewed the patient's lab results. Labs: Lab Results 11/13/19 11/13/19 11/13/19 Range/Units 17:20 17:20 17:22 WBC 14.7 H (4.5-11.0) X10^3/uL RBC 3.41 L (4.5-5.9) X10^6/uL Hgb 10.1 L (13.5-17.5) g/dL Hct 32.2 L (41-53) % MCV 94.3 (80-100) fL MCH 29.7 (26-34) PG MCHC 31.5 (30-36) % RDW 16.4 H (11.6-14.8) % Plt Count 202 (150-400) X10^3/uL Neut % (Auto) 86.5 H (50-75) % Lymph % (Auto) 3.7 L (25-40) % [place] % (Auto) 8.4 (3-14) % Eos % (Auto) 1.0 L (2-4) % Baso % (Auto) 0.4 (0-2) % Neut # (Auto) 45400 H (0960-0910) /uL Lymph # (Auto) 500 L (7752-8385) /uL [place] # (Auto) 1200 H (0-900) /uL Eos # (Auto) 100 (0-450) /uL Baso # (Auto) 100 (0-100) /uL PT (10.1-12.7) SECONDS INR (0.9-1.3) APTT (26.4-36.2) SECONDS D-Dimer (<230) ng/mL Sodium (137-145) mmol/L Potassium (3.4-5.1) mmol/L Chloride (98-107) mmol/L Carbon Dioxide (22-32) mmol/L BUN (9-20) mg/dL Creatinine (0.66-1.25) mg/dL Estimated GFR (>60) mL/min BUN/Creatinine Ratio (6-22) Glucose (80-110) mg/dL Lactate (0.7-2.1) mmol/L Calcium (8.4-10.2) mg/dL Ferritin (18-464) ng/mL Total Bilirubin (0.2-1.3) mg/dL AST (17-59) IU/L ALT (<50) IU/L Alkaline Phosphatase (38-126) U/L Lactate Dehydrogenase (313-618) U/L C-Reactive Protein (<1.0) mg/dL Total Protein (6.3-8.2) g/dL Albumin (3.5-5.0) g/dL Globulin (1.7-4.1) g/dL Albumin/Globulin Ratio (1.0-2.8) Lipase (23-300) U/L Procalcitonin (<0.5) ng/mL Urine RBC 0-1/hpf (0-5/HPF) Urine WBC 5-10/hpf H (0-5/HPF) Urine Bacteria Moderate (10-30) H (None) Ur Culture Indicated? Specimen cultured COVID-19 PCR Negative (Negative) 11/13/19 11/13/19 11/13/19 Range/Units 17:22 17:22 17:22 WBC (4.5-11.0) X10^3/uL RBC (4.5-5.9) X10^6/uL Hgb (13.5-17.5) g/dL Hct (41-53) % MCV (80-100) fL MCH (26-34) PG MCHC (30-36) % RDW (11.6-14.8) % Plt Count (150-400) X10^3/uL Neut % (Auto) (50-75) % Lymph % (Auto) (25-40) % Summit % (Auto) (3-14) % Eos % (Auto) (2-4) % Baso % (Auto) (0-2) % Neut # (Auto) (3822-2502) /uL Lymph # (Auto) (8786-0826) /uL Summit # (Auto) (0-900) /uL Eos # (Auto) (0-450) /uL Baso # (Auto) (0-100) /uL PT 11.1 (10.1-12.7) SECONDS INR 1.0 (0.9-1.3) APTT 41 H D (26.4-36.2) SECONDS D-Dimer (<230) ng/mL Sodium 132 L (137-145) mmol/L Potassium 4.6 (3.4-5.1) mmol/L Chloride 97 L (98-107) mmol/L Carbon Dioxide 26 (22-32) mmol/L BUN 64 H (9-20) mg/dL Creatinine 2.85 H (0.66-1.25) mg/dL Estimated GFR 22.2 L (>60) mL/min BUN/Creatinine Ratio 22.5 H (6-22) Glucose 101 (80-110) mg/dL Lactate (0.7-2.1) mmol/L Calcium 8.6 (8.4-10.2) mg/dL Ferritin (18-464) ng/mL Total Bilirubin 0.6 (0.2-1.3) mg/dL AST 20 (17-59) IU/L ALT 9 (<50) IU/L Alkaline Phosphatase 108 (38-126) U/L Lactate Dehydrogenase (313-618) U/L C-Reactive Protein (<1.0) mg/dL Total Protein 7.4 (6.3-8.2) g/dL Albumin 4.0 (3.5-5.0) g/dL Globulin 3.4 (1.7-4.1) g/dL Albumin/Globulin Ratio 1.2 (1.0-2.8) Lipase 53 (23-300) U/L Procalcitonin 0.15 (<0.5) ng/mL Urine RBC (0-5/HPF) Urine WBC (0-5/HPF) Urine Bacteria (None) Ur Culture Indicated? COVID-19 PCR (Negative) 11/13/19 11/13/19 11/13/19 Range/Units 17:22 17:22 17:22 WBC (4.5-11.0) X10^3/uL RBC (4.5-5.9) X10^6/uL Hgb (13.5-17.5) g/dL Hct (41-53) % MCV (80-100) fL MCH (26-34) PG MCHC (30-36) % RDW (11.6-14.8) % Plt Count (150-400) X10^3/uL Neut % (Auto) (50-75) % Lymph % (Auto) (25-40) % [place] % (Auto) (3-14) % Eos % (Auto) (2-4) % Baso % (Auto) (0-2) % Neut # (Auto) (9488-8930) /uL Lymph # (Auto) (8597-6208) /uL Summit # (Auto) (0-900) /uL Eos # (Auto) (0-450) /uL Baso # (Auto) (0-100) /uL PT (10.1-12.7) SECONDS INR (0.9-1.3) APTT (26.4-36.2) SECONDS D-Dimer 457 H (<230) ng/mL Sodium (137-145) mmol/L Potassium (3.4-5.1) mmol/L Chloride (98-107) mmol/L Carbon Dioxide (22-32) mmol/L BUN (9-20) mg/dL Creatinine (0.66-1.25) mg/dL Estimated GFR (>60) mL/min BUN/Creatinine Ratio (6-22) Glucose (80-110) mg/dL Lactate 1.6 (0.7-2.1) mmol/L Calcium (8.4-10.2) mg/dL Ferritin 284 (18-464) ng/mL Total Bilirubin (0.2-1.3) mg/dL AST (17-59) IU/L ALT (<50) IU/L Alkaline Phosphatase (38-126) U/L Lactate Dehydrogenase 470 (313-618) U/L C-Reactive Protein (<1.0) mg/dL Total Protein (6.3-8.2) g/dL Albumin (3.5-5.0) g/dL Globulin (1.7-4.1) g/dL Albumin/Globulin Ratio (1.0-2.8) Lipase (23-300) U/L Procalcitonin (<0.5) ng/mL Urine RBC (0-5/HPF) Urine WBC (0-5/HPF) Urine Bacteria (None) Ur Culture Indicated? COVID-19 PCR (Negative) 11/13/19 Range/Units 17:22 WBC (4.5-11.0) X10^3/uL RBC (4.5-5.9) X10^6/uL Hgb (13.5-17.5) g/dL Hct (41-53) % MCV (80-100) fL MCH (26-34) PG MCHC (30-36) % RDW (11.6-14.8) % Plt Count (150-400) X10^3/uL Neut % (Auto) (50-75) % Lymph % (Auto) (25-40) % [place] % (Auto) (3-14) % Eos % (Auto) (2-4) % Baso % (Auto) (0-2) % Neut # (Auto) (5996-1463) /uL Lymph # (Auto) (8537-7407) /uL Summit # (Auto) (0-900) /uL Eos # (Auto) (0-450) /uL Baso # (Auto) (0-100) /uL PT (10.1-12.7) SECONDS INR (0.9-1.3) APTT (26.4-36.2) SECONDS D-Dimer (<230) ng/mL Sodium (137-145) mmol/L Potassium (3.4-5.1) mmol/L Chloride (98-107) mmol/L Carbon Dioxide (22-32) mmol/L BUN (9-20) mg/dL Creatinine (0.66-1.25) mg/dL Estimated GFR (>60) mL/min BUN/Creatinine Ratio (6-22) Glucose (80-110) mg/dL Lactate (0.7-2.1) mmol/L Calcium (8.4-10.2) mg/dL Ferritin (18-464) ng/mL Total Bilirubin (0.2-1.3) mg/dL AST (17-59) IU/L ALT (<50) IU/L Alkaline Phosphatase (38-126) U/L Lactate Dehydrogenase (313-618) U/L C-Reactive Protein 6.0 H (<1.0) mg/dL Total Protein (6.3-8.2) g/dL Albumin (3.5-5.0) g/dL Globulin (1.7-4.1) g/dL Albumin/Globulin Ratio (1.0-2.8) Lipase (23-300) U/L Procalcitonin (<0.5) ng/mL Urine RBC (0-5/HPF) Urine WBC (0-5/HPF) Urine Bacteria (None) Ur Culture Indicated? COVID-19 PCR (Negative) Urine Dip Bedside Urine Glucose Negative Bedside Urine Bilirubin - Negative Bedside Urine Ketone - Negative Urine Specific [place] 1.010 Bedside Urine Occult Blood +/- Bedside Urine pH 6.0 Bedside Urine Protein +/- 15 Bedside Urine Urobilinogen - Negative Bedside Urine Nitrite - Negative Bedside Urine Leukocytes +/- 15 Esterase Imaging Data Chest x-ray: Radiologist Impression: IMPRESSION: 1. Central vascular and interstitial congestion suspicious for CHF in the setting of cardiomegaly. Underlying infection is not easily excluded. Dictated by: Rahel Comer M.D. on 11/13/2019 at 18:17 CT scan - head: Radiologist Impression: FINDINGS: Image quality: Excellent. CSF spaces: Basal cisterns are patent. No extra-axial fluid collections. The ventricles are symmetric in size and shape. Brain: No intracranial bleeds or masses. There is moderate cerebral volume loss for age, with resultant ventricular and sulcal prominence. This appears stable. There are periventricular and deep white matter chronic small vessel ischemic changes. There is intracranial internal carotid artery atherosclerosis. Skull and face: Calvarium and visualized facial bones appear intact, without suspicious lesions. Stable postsurgical changes from previous left mastoidectomy. Opacification of the left middle ear, unchanged. Sinuses: Minimal mucosal thickening of the bilateral maxillary sinuses. Remainder of the paranasal sinuses appear clear. Mastoid air cells are well-aerated. IMPRESSION: 1. Stable CT evaluation of the head without acute intracranial abnormalities. 2. Stable appearance of moderate age related senescent changes and sequela of chronic small vessel ischemic disease. 3. Stable postoperative changes from left mastoidectomy with left middle ear opacification. 4. Minimal bilateral maxillary sinus disease. Dictated by: Peter Ramirez M.D. on 11/13/2019 at 18:34 [facility] Narrative Medical decision making narrative: 69-year-old gentleman presents because he was so weak he fell off his toilet at home and then was too weak to get up. On further questioning is definitely confused, his head CT is unremarkable. Had chronic wound problems with both lower extremities apparently left greater than right. He does have a wound care dressing on and once removed the left leg is significantly erythematous with some drainage with significant odor very consistent with an infection. Of December cultures from the leg showed Proteus as well as methicillin resistance Staph. Urine looks like it is infected with white cells and bacteria, culture has been sent. Blood cultures have been obtained. Initial lactic acid is 1.6. Review of additional labs indicates leukocytosis as well as worsening renal function with creatinine jumping from 2.38-2.85. C reactive protein is slightly elevated however procalcitonin is not. Chest x-ray suggests mild fluid overload/heart failure, he has got by basilar crackles, body habitus makes jugular venous distention difficult to fully assess, both lower extremities wrapped in pressure dressings with moderate edema. Covid screen is negative today In summary a 69-year-old gentleman lives by himself with increasing weakness to the point he fell off his toilet was unable to get off the floor, increasing confusion, increased creatinine, left lower extremity cellulitis with chronic wound issues and probable UTI as well. Will begin with ceftriaxone and vancomycin, using recent wound cultures for antibiotic guidance, assuming the urine and left lower extremity are the source of the fever. He is not hypotensive, mildly tachycardic, with concerns for mild fluid overload will not bolus with large amounts of fluids but will repeat lactic acid. Will plan on hospital admission. Dr. Quintana is his primary care physician will contact Dr. Jefferson for admission today 830pm care is reviewed with Dr. Jefferson. Patient will be admitted to her service. He is safe for transfer to the floor. Discharge Plan Departure Patient Disposition: Admitted As Inpatient Clinical Impression: Cellulitis of left lower extremity, Weakness, Acute renal insufficiency, Acute confusion Urinary tract infection Qualifiers: Urinary tract infection type: acute cystitis Hematuria presence: without hematuria Qualified Code(s): N30.00 - Acute cystitis without hematuria Discharge Date/Time: 11/13/19 21:20 Referrals: Jim Quintana MD [Primary Care Provider] - Admit Date/Time: 11/13/19 20:29 Admit Provider: Arcelia Jefferson
--- NOTE | 2019-11-13 17:49 | DI.CT.S_ITS ---
PROCEDURE: CT HEAD/BRAIN WO CON INDICATIONS: weakness TECHNIQUE: Noncontrast 4.5 mm thick angled axial sections acquired from the foramen magnum to the vertex, with coronal and sagittal reformats. For radiation dose reduction, the following was used: automated exposure control, adjustment of mA and/or kV according to patient size. COMPARISON: [facility], CT, CT HEAD/BRAIN WO CON, 01/24/2019, 21:46. FINDINGS: Image quality: Excellent. CSF spaces: Basal cisterns are patent. No extra-axial fluid collections. The ventricles are symmetric in size and shape. Brain: No intracranial bleeds or masses. There is moderate cerebral volume loss for age, with resultant ventricular and sulcal prominence. This appears stable. There are periventricular and deep white matter chronic small vessel ischemic changes. There is intracranial internal carotid artery atherosclerosis. Skull and face: Calvarium and visualized facial bones appear intact, without suspicious lesions. Stable postsurgical changes from previous left mastoidectomy. Opacification of the left middle ear, unchanged. Sinuses: Minimal mucosal thickening of the bilateral maxillary sinuses. Remainder of the paranasal sinuses appear clear. Mastoid air cells are well-aerated. IMPRESSION: 1. Stable CT evaluation of the head without acute intracranial abnormalities. 2. Stable appearance of moderate age related senescent changes and sequela of chronic small vessel ischemic disease. 3. Stable postoperative changes from left mastoidectomy with left middle ear opacification. 4. Minimal bilateral maxillary sinus disease. Dictated by: Peter Ramirez M.D. on 11/13/2019 at 18:34 Approved by: Peter Ramirez M.D. on 11/13/2019 at 18:36
[2019-11-13 18:00] LABS: Prothrombin Time 11.1 SECONDS (10.1-12.7)
[2019-11-13 18:03] LABS: PTT Partial Thromboplastin Tim 41 SECONDS (26.4-36.2)
[2019-11-13 18:04] LABS: RBC Urine 0-1/HPF (0-5/HPF); WBC Urine 5-10/HPF (0-5/HPF)
[2019-11-13 18:05] LABS: Bacteria Urine Moderate (10-30); Culture Indicated Urine Specimen Cultured
[2019-11-13 18:06] LABS: Lactate Dehydrogenase 470 U/L (313-618)
[2019-11-13 18:07] LABS: Lactate (Lactic Acid) 1.6 mmol/L (0.7-2.1)
[2019-11-13 18:08] LABS: Alanine Aminotransferase 9 IU/L (<50); Albumin Globulin Ratio 1.2 (1.0-2.8); Alkaline Phosphatase 108 U/L (38-126); Aspartate Aminotransferase 20 IU/L (17-59); BUN Creatinine Ratio 22.5 (6-22); Bilirubin Total 0.6 mg/dL (0.2-1.3); Blood Urea Nitrogen 64 mg/dL (9-20); Calcium 8.6 mg/dL (8.4-10.2); Carbon Dioxide 26 mmol/L (22-32); Chloride 97 mmol/L (98-107); Estimated Glomerular Filt Rate 22.2 mL/min (>60); Globulin 3.4 g/dL (1.7-4.1); Glucose 101 mg/dL (80-110); HEMOLYSIS < 15 (0-50); Lipase 53 U/L (23-300); Potassium 4.6 mmol/L (3.4-5.1); Sodium 132 mmol/L (137-145); Total Protein 7.4 g/dL (6.3-8.2)
[2019-11-13 18:11] LABS: COVID19 -Nasal RAPID Negative (Negative)
[2019-11-13 18:12] LABS: D Dimer 457 ng/mL (<230)
--- NOTE | 2019-11-13 18:16 | PC.NURSE ---
pt states he was sitting on the toilet today, tried to get up when he lost his footing causing him to fall. denies injury from todays fall. pt c/o bilateral shoulder pain since fall last week. pt asking for pain medication for shoulder pain.
[2019-11-13] MEDS: ACETAMINOPHEN 325 MG TABLET 975 MG PO (18:23)
[2019-11-13 18:25] LABS: Procalcitonin 0.15 ng/mL (<0.5)
[2019-11-13 18:42] LABS: Ferritin 284 ng/mL (18-464)
--- NOTE | 2019-11-13 20:17 | PC.NURSE ---
Addendum entered by Magda Rose R.N. 11/13/19 21:05: Pt right leg wrapped with cling roll, abd pad and telfa. Original Note: PT has chronic bi lateral Lower leg wounds, RN and Dr removed wound care dressing pt arrived with, Pt states has been seeing wound care for past year with Left leg wounds worse than the right. Left leg is erythemic with drainage and strong odor present. Right leg is erythemic with blistering. Pt wounds washed to right leg and re wrapped in ER per Dr Garcia.
[2019-11-13] MEDS: SODIUM CHLORIDE 0.9% 1,000 ML 150 ML IV (20:39)
[2019-11-13] MEDS: CEFTRIAXONE 2 GM/50 ML FROZ.PIGGY IV (20:40)
[2019-11-13] MEDS: VANCOMYCIN 1,000 MG/200 ML PIGGYBACK 200 MG IV (21:47)
[2019-11-13] MEDS: ACETAMINOPHEN 325 MG TABLET 650 MG PO (21:56)
[2019-11-14] VITALS (8 sets, daily range): BP systolic 130–178; BP diastolic 57–92; PULSE 76–97; RESP 16–20; TEMP 36.7–38; O2SAT 95–98
--- NOTE | 2019-11-14 03:28 | PM.HP.1 ---
History of Present Illness History of Present Illness Date Patient Seen: 11/14/19 Time Patient Seen: 03:28 Chief complaint: weakness Narrative: This 68-year-old male, prior smoker, with history of alcoholism, chronic renal failure stage 4, diabetes mellitus type 2, and chronic lower extremity cellulitis is admitted from the ED with profound weakness, UTI, and cellulitis. Chief complaint included weakness that is chronic and worsening; fell off the toilet prior to presentation and was unable to get back up. Vital signs upon presentation to the ED included a temperature of 101.7?, blood pressure 177/81, pulse 95, respirations 18, O2 saturation 95%. Lab workup significant for an elevated WBC at 16.7 with a left shift. H&H (10.1/22.9). Creatinine up from baseline of 2.38 to 2.85. CRP was elevated at 6; lactate and procalcitonin notably negative. D-dimer elevated at 57. Urinalysis showed pyuria, culture pending. Chest x-ray showed central vascular interstitial congestion, likely CHF in setting of cardiomegaly. CT head negative. Covid negative. In the ED, lower extremity wounds were found to be foul smelling, purulent, and with unchanged bandages. Prior wound cultures showed Proteus and MRSA. Wounds were redressed and ceftriaxone and vancomycin administered prior to transfer to the floor. Denies abdominal pain, chest pain, difficulty breathing, or bowel changes. Does endorse that he is becoming more incontinent of urine and dribbles all the time. Past Medical history: Diabetes mellitus 2 with neuropathy Hypertension Chronic kidney disease stage 4 Anemia Alcohol abuse Spinal cord injury with central cord syndrome Balance problems with frequent falls Muscle weakness Chronic pain, neck, back GI bleed secondary to duodenal ulcer Venous stasis with ulceration Gout Syphilis Chronic urinary tract infections Past surgical history: C3-T2 posterior spinal instrumentation and fusion C3-C7 laminectomy, 2013 T10-T12 posterior spinal instrumentation and fusion, 2013 Family history: Noncontributory Social history: , formerly worked at the [employer]. Alcoholic. Patient History Medical History Alcoholism (Chronic) Anemia associated with chronic renal failure (Chronic) Cellulitis of lower leg (Chronic) Chronic kidney disease, stage 4 (severe) (Chronic) Chronic pain (Chronic) Depression (Chronic) Diabetes type 2, controlled (Chronic) Duodenal ulcer (Acute) GI bleed (Resolved) Gout, arthropathy (Chronic) History of cervical fracture (Resolved) Hyperparathyroidism (Chronic) Hypertension (Chronic) Left leg pain (Chronic) Symptomatic anemia (Chronic) Surgical History H/O cervical spine surgery (Acute) History of colectomy (Resolved) History of fusion of cervical spine (Chronic) Family & Social History Social History: household members none Prior Living Arrangements Apartment/Condo Safety & Behavioral: Feels Safe in Current Yes Environment Been Physically Hurt or No Threatened By a Person Suicidal Ideation Description None Tobacco & Substance use: Tobacco type cigarettes Smoking Status Former smoker alcohol intake current alcohol intake frequency 0-2 drinks per day Substance Use Type does not use Meds Home Medications and Allergies Home Medications Medication Instructions Recorded Confirmed Type citalopram 20 mg PO DAILY 12/25/17 11/14/19 History glimepiride 1 mg PO DAILY 03/22/18 11/14/19 History doxazosin 4 mg PO BEDTIME 06/07/18 11/14/19 History furosemide 80 mg PO DAILY 09/27/18 11/14/19 History duloxetine 60 mg PO BID 09/28/18 11/14/19 History polyethylene glycol 3350 17 g PO DAILY PRN 09/28/18 11/14/19 History lorazepam 0.5 mg PO TID PRN 11/12/18 11/14/19 History silver sulfadiazine [SSD] 1 applic TOPICAL TID 11/12/18 11/14/19 History lidocaine 1 patch TOP DAILY #30 each 12/19/18 11/14/19 Rx hydrocodone-acetaminophen 1 tab PO BEDTIME 08/08/19 11/14/19 History pantoprazole 40 mg PO DAILY 08/08/19 11/14/19 History multivitamin [Tab-A-Isidro] 1 tab PO DAILY #90 tab 08/12/19 11/14/19 Rx allopurinol [Zyloprim] 200 mg PO DAILY 09/12/19 11/14/19 History atorvastatin [Lipitor] 40 mg PO BEDTIME 09/12/19 11/14/19 History ferrous gluconate 324 mg PO DAILY 09/12/19 11/14/19 History melatonin 6 mg PO BEDTIME 09/12/19 11/14/19 History acetaminophen 650 mg PO Q6HR PRN #30 tab 09/13/19 11/14/19 Rx cefepime in dextrose 5 % 1 gm IV DAILY #30 ea 09/13/19 11/14/19 Rx folic acid 1 mg PO DAILY #30 tab 09/13/19 11/14/19 Rx hydrocodone-acetaminophen 1 tab PO DAILY #30 tab 09/13/19 11/14/19 Rx lisinopril 5 mg PO DAILY #30 tab 09/13/19 11/14/19 Rx lorazepam 0.5 mg PO Q4HR PRN #90 tab 09/13/19 11/14/19 Rx magnesium hydroxide [Milk of 30 ml PO DAILY PRN #270 ml 09/13/19 11/14/19 Rx Magnesia] multivitamin [Tab-A-Isidro] 1 tab PO DAILY #30 tab 09/13/19 11/14/19 Rx Allergies Allergy/AdvReac Type Severity Reaction Status Date / Time latex Allergy Mild IRRITATION Verified 11/13/19 17:13 carisoprodol [From Soma] Allergy Verified 11/13/19 17:13 hydromorphone Allergy Verified 11/13/19 17:13 Sulfa (Sulfonamide AdvReac Mild N&V 1HOUR Verified 11/13/19 17:13 Antibiotics) AFTER RX, THINKS IT IS RELATED Exam Vital Signs (past 8 hours): - 11/13/19 19:30 11/13/19 20:00 11/13/19 20:30 Temperature Pulse Rate 96 H 87 90 Respiratory Rate 23 22 23 Blood Pressure 159/74 H Pulse Oximetry 95 95 93 11/13/19 21:35 11/14/19 00:00 11/14/19 01:54 Temperature 99.5 F 98.2 F 98.9 F Pulse Rate 88 78 86 Respiratory Rate 19 20 16 Blood Pressure 161/80 H 130/64 161/78 H Pulse Oximetry 97 95 98 Oxygen Delivery Method Room Air Oxygen Flow Rate 0 Narrative Exam Narrative: GENERAL: Alert and oriented, appearing stated age and in no acute distress. HEENT: Head normocephalic/atraumatic. Pupils equal, round, and reactive to light and accomodation. Extraocular muscles intact. Tympanic membranes clear. Nasal mucosa moist, septum midline. Oral mucosa dry, poor dentition, no lesions. Neck soft and supple, no lymphadenopathy. LUNGS: Clear to ausculation bilaterally, no wheezes, rhonchi or rales. CV: Normal S1 and S2 with regular rate and rhythm, 3/5 systolic murmur. No rubs or gallops. ABDOMEN: Soft, non-tender, non-distended, no organomegaly. Positive bowel sounds. EXTREMITIES: Bilateral lower extremity venous stasis with left lower extremity ulceration, dressing in place. Clean dry and intact. NEURO: Cranial nerves II through XII grossly intact, no focal deficits. PSYCH: Alert and oriented x 3. Objective Labs Result Diagrams: 11/14/19 05:49 11/14/19 05:49 Labs: Laboratory Results - last 24 hr 11/13/19 11/13/19 11/13/19 17:20 17:20 17:22 WBC 14.7 H RBC 3.41 L Hgb 10.1 L Hct 32.2 L MCV 94.3 MCH 29.7 MCHC 31.5 RDW 16.4 H Plt Count 202 Neut % (Auto) 86.5 H Lymph % (Auto) 3.7 L [place] % (Auto) 8.4 Eos % (Auto) 1.0 L Baso % (Auto) 0.4 Neut # (Auto) 99285 H Lymph # (Auto) 500 L [place] # (Auto) 1200 H Eos # (Auto) 100 Baso # (Auto) 100 PT INR APTT D-Dimer Sodium Potassium Chloride Carbon Dioxide BUN Creatinine Estimated GFR BUN/Creatinine Ratio Glucose Lactate Calcium Ferritin Total Bilirubin AST ALT Alkaline Phosphatase Lactate Dehydrogenase C-Reactive Protein Total Protein Albumin Globulin Albumin/Globulin Ratio Lipase Procalcitonin Urine RBC 0-1/hpf Urine WBC 5-10/hpf H Urine Bacteria Moderate (10-30) H Ur Culture Indicated? Specimen cultured COVID-19 PCR Negative 11/13/19 11/13/19 11/13/19 17:22 17:22 17:22 WBC RBC Hgb Hct MCV MCH MCHC RDW Plt Count Neut % (Auto) Lymph % (Auto) [place] % (Auto) Eos % (Auto) Baso % (Auto) Neut # (Auto) Lymph # (Auto) [place] # (Auto) Eos # (Auto) Baso # (Auto) PT 11.1 INR 1.0 APTT 41 H D D-Dimer Sodium 132 L Potassium 4.6 Chloride 97 L Carbon Dioxide 26 BUN 64 H Creatinine 2.85 H Estimated GFR 22.2 L BUN/Creatinine Ratio 22.5 H Glucose 101 Lactate Calcium 8.6 Ferritin Total Bilirubin 0.6 AST 20 ALT 9 Alkaline Phosphatase 108 Lactate Dehydrogenase C-Reactive Protein Total Protein 7.4 Albumin 4.0 Globulin 3.4 Albumin/Globulin Ratio 1.2 Lipase 53 Procalcitonin 0.15 Urine RBC Urine WBC Urine Bacteria Ur Culture Indicated? COVID-19 PCR 11/13/19 11/13/19 11/13/19 17:22 17:22 17:22 WBC RBC Hgb Hct MCV MCH MCHC RDW Plt Count Neut % (Auto) Lymph % (Auto) [place] % (Auto) Eos % (Auto) Baso % (Auto) Neut # (Auto) Lymph # (Auto) [place] # (Auto) Eos # (Auto) Baso # (Auto) PT INR APTT D-Dimer 457 H Sodium Potassium Chloride Carbon Dioxide BUN Creatinine Estimated GFR BUN/Creatinine Ratio Glucose Lactate 1.6 Calcium Ferritin 284 Total Bilirubin AST ALT Alkaline Phosphatase Lactate Dehydrogenase 470 C-Reactive Protein Total Protein Albumin Globulin Albumin/Globulin Ratio Lipase Procalcitonin Urine RBC Urine WBC Urine Bacteria Ur Culture Indicated? COVID-19 PCR 11/13/19 17:22 WBC RBC Hgb Hct MCV MCH MCHC RDW Plt Count Neut % (Auto) Lymph % (Auto) [place] % (Auto) Eos % (Auto) Baso % (Auto) Neut # (Auto) Lymph # (Auto) [place] # (Auto) Eos # (Auto) Baso # (Auto) PT INR APTT D-Dimer Sodium Potassium Chloride Carbon Dioxide BUN Creatinine Estimated GFR BUN/Creatinine Ratio Glucose Lactate Calcium Ferritin Total Bilirubin AST ALT Alkaline Phosphatase Lactate Dehydrogenase C-Reactive Protein 6.0 H Total Protein Albumin Globulin Albumin/Globulin Ratio Lipase Procalcitonin Urine RBC Urine WBC Urine Bacteria Ur Culture Indicated? COVID-19 PCR Assessment & Plan Assessment & Plan narrative: 1. UTI with urinary retention and incontinence, acute -PSA 1.17 on 08/23/19 Plan: Based on lower extremity wound cultures positive for Proteus and MRSA, UTI will be covered with vancomycin and ceftriaxone. Will trend labs and temperature. Wells in place for now, will try to wean today. 2. Profound weakness, acute on chronic. Multifactorial etiology including sequela from alcoholism, acute UTI, recent GI bleed, recent prolonged hospital stay, etc. Plan: PT/OT for strengthening and gait training. 3. Bilateral lower extremity venous stasis with ulceration, left > right. -Historical wound cultures positive for Proteus and MRSA. -11/14/19 wound cultures pending. Plan: Ceftriaxone and vancomycin. Wound care and nutrition consult. 4. Acute on chronic heart failure with preserved ejection fraction -Echo on 02/04/19 showed EF of 55%. PLAN: Will continue home lasix 80 mg PO qd and recheck BMP and BNP in am. 5. Diabetes mellitus 2 with neuropathy Plan: Diabetic diet, continue home glimepiride 1 mg p.o. q.day. Sliding scale insulin if needed per protocol. 6. Hypertension Plan: Will continue lisinopril 5 mg p.o. q.day and furosemide 80 mg p.o. q.day. 7. Chronic kidney disease stage 4, acute on chronic Plan: Pharmacy consulting for medication adjustments. Patient did receive gentle fluid bolus in ED. Will trend labs. 8. Anemia, normocytic/normochromic. Plan: Hemoglobin/hematocrit overall improved. Continue home iron, will continue to trend CBC. 9. Alcohol abuse -Recent inpatient detoxification. Plan: CIWA protocol 10. Spinal cord injury with central cord syndrome Plan: Chronic, supportive therapy with PT/OT. 11. Chronic pain, neck, back Plan: Continue home lidocaine patches, hydrocodone, duloxetine, and gabapentin. 12: Gout, chronic, not in flare. Plan: Continue allopurinol 200 mg p.o. q.day. 13: Depression/anxiety, chronic Plan: continue home medications including duloxetine, lorezapam, and citaloparam. GI prophylaxis: Oral Protonix. DVT prophylaxis: Lovenox. Code: Full
[2019-11-14] MEDS: ACETAMINOPHEN 325 MG TABLET 650 MG PO ×2 (04:16→10:55)
--- NOTE | 2019-11-14 04:52 | PC.NURSE ---
Addendum entered by Bibi Arias R.N. 11/14/19 06:07: Wells placed per Dr. Jefferson. Med req also verified per computer info per Dr. Jefferson. Pt did not know types or dosages of his meds, my sister sets out a cup of pills and I take them. Addendum entered by Bibi Arias R.N. 11/14/19 05:11: Unable to do med req on pt - he does not know dosages and types of meds he takes. Retaining urine, request made for straight cath to Dr. Jefferson. Original Note: Pt has remained pleasant and cooperative throughout the shift. Frequently urinating small amounts. CIWA = 0. C/O bilateral shoulder pain, call to provider for medication stronger than Tylenol.
[2019-11-14] MEDS: PANTOPRAZOLE 20 MG TABLET PO (05:29)
[2019-11-14] MEDS: SODIUM CHLORIDE 0.9% 1,000 ML 150 ML IV ×3 (05:33→15:00)
[2019-11-14 06:20] LABS: BUN Creatinine Ratio 22.9 (6-22); Blood Urea Nitrogen 61 mg/dL (9-20); Calcium 7.9 mg/dL (8.4-10.2); Carbon Dioxide 23 mmol/L (22-32); Chloride 100 mmol/L (98-107); Glucose 132 mg/dL (80-110); HEMOLYSIS < 15 (0-50); Magnesium 1.7 mg/dL (1.6-2.3); Potassium 3.9 mmol/L (3.4-5.1); Sodium 132 mmol/L (137-145)
[2019-11-14 06:29] LABS: NT-proBNP (BNP-Adult 18+) 2700 pg/mL (<125)
[2019-11-14 06:30] LABS: Add Manual Diff / Slide Review NO; Basophils Absolute Auto 100 /uL (0-100); Basophils Percent Auto 0.4 % (0-2); Eosinophils Absolute Auto 200 /uL (0-450); Eosinophils Percent Auto 1.1 % (2-4); Hematocrit 29.9 % (41-53); Hemoglobin 9.5 g/dL (13.5-17.5); Lymphocytes Absolute Auto 500 /uL (1100-4500); Lymphocytes Percent Auto 3.3 % (25-40); Mean Corpuscular HGB Conc 31.9 % (30-36); Mean Corpuscular Hemoglobin 29.9 PG (26-34); Mean Corpuscular Volume 93.8 fL (80-100); Monocytes Absolute Auto 1100 /uL (0-900); Monocytes Percent Auto 7.5 % (3-14); Neutrophils Absolute Auto 13100 /uL (1500-7000); Neutrophils Percent Auto 87.7 % (50-75); Platelet Count 186 X10^3/uL (150-400); Red Blood Cell Count 3.19 X10^6/uL (4.5-5.9); Red Cell Distribution Width 16.2 % (11.6-14.8); White Blood Cell Count 14.9 X10^3/uL (4.5-11.0)
--- NOTE | 2019-11-14 08:10 | PC.NURSE ---
Addendum entered by Steph Ramsey R.N. 11/14/19 12:04: Patients dressing to his l.ankle/foot changed, area was bleeding. Non stick telfa applied with some kurlex and tape. He worked with physical therapy and is now back to bed. BS 151, and 1u of insulin given. Addendum entered by Steph Ramsey R.N. 11/14/19 11:03: Given two tylenol for complaints of discomfort and burning at catheter tip. Will ask when they do rounds if patient can have oxycodone for pain and some pyridium for burning. Patient has been appropriate this shift. Original Note: Patient is groggy this morning, asked for pain medication but he is too sleepy at this time. Patient has a lot of skin issues. Cellulitis to his r.knee area, and a skin ulcer to his left lower foot area. L.ankle is wrapped in kurlex. Patients blood sugar this am 157, will give patient his insulin before eating his breakfast. He also has some dry skin, moisture in folds, and swollen testicles. Please see skin assessment under Physical assessment in computer. Had to set some boundaries right away with patient when territory manager also in room. Patient has a hx of being sexually inappropriate and he calls on his light frequently. Explained to him that he needs to let us know his wants and needs before we leave his room, instead of being on his light again right when we leave, he has a hx of doing this also in the past. Right now patient is sleeping, his pedal pulses are weak bilaterally. Will continue to monitor patients behavior.
[2019-11-14] MEDS: INSULIN ASPART 100 UNIT/ML INSULN PEN SUBCUT ×3 (08:25→17:04)
[2019-11-14] MEDS: THIAMINE 100 MG TABLET PO (08:25)
[2019-11-14] MEDS: FOLIC ACID 1 MG TABLET PO (08:25)
[2019-11-14] MEDS: MULTIVITAMIN 1 TABLET 1 TAB PO (08:25)
[2019-11-14 08:45] LABS: Lactate (Lactic Acid) < 0.5 mmol/L (0.7-2.1)
--- NOTE | 2019-11-14 09:16 | CM.DANOTE ---
Addendum entered by Alina Garcia LPN 11/14/19 15:47: Most recent COVID-19: negative result test: 11/13/1719 Addendum entered by Alina Garcia LPN 11/14/19 15:42: See that OT and PT did see pt and today are recommending a short snf stay before a return home to his current situation. In case of need have left a for [facility] ([facility]) in case of need. Will followup on this tomorrow. Addendum entered by Alina Garcia LPN 11/14/19 11:56: Pt also confirms he has [employer]. Original Note: Discharge Planning/Care Management DCP: assessment: case received, EMR including last 2 admissions to reviewed and then met with pt. Introduced self and role. Pt is a 69 year old male who admitted last night to care of Dr. Jefferson. PCP: Dr. Claire Quintana Payer: Medicare and Medicaid. Pt confirms he did return home from [facility] after about a 3 week stay. (sent there from September 12 for Rehab/Recovery under Medicare snf stay). He has been at home ever since with resumption of SON[facility] caregiver: [facility] caregiving agency: His caregiver Martine Scott sees him Monday-Monday, 2-5 hours a day. He confirms she helps him with housecleaning, laundry, fixes breakfast and lunch and helps him with bathing. She also helps him with medications. He reports his POA sister Rosa/Ken Quinteros sets up his medications in a mediset and then Martine checks to make sure I took everything correctly . Pt also says he goes to the wound care clinic and that Pam are currently seeing him. Ever since I left [facility]. Pt is hopeful that he will be able to return home at d/c with above services. IF snf stay was needed he would go to [facility]. I know them all and they are very nice there. Pt uses [employer] transport and Rosa also provides transport. He drives [employer] but currently license is . Advanced directive, confirm from FAMILY Start: 11/13/19 22:01 Freq: Q24H Status: Active Protocol: Document 11/13/19 22:47 GMP (Rec: 11/13/19 22:47 GMP [id number]) Advance Directive, confirm on record Time 22:47 Person contacted pt Copy received No CM Discharge Assessment Start: 11/14/19 09:12 Freq: Status: Active Protocol: Document 11/14/19 09:13 ITV (Rec: 11/14/19 09:16 ITV [id number]) Discharge Planning Assessment Advance Directives? Advance Directives on File History Provided By Patient,Medical Record Has Patient been admitted in last 30 No days? Prior Living Arrangements Apartment/Condo Comment lives in a duplex Household Members none Independent with ADL's No Is patient alert and oriented? Yes Needs Assistance With Bathing,Meal Prep,Managing Medications,Home Chores / Shopping Comment current with [facility] Already Rented / Owned Wheelchair,FWW / Walker Whiteboard Updated in Patient Room with Yes name and ext. # of Master Cosmetologist Review Status In Process
--- NOTE | 2019-11-14 10:59 | DIET.PN ---
Dietary Progress Note Assessment: 69y M prior smoker, with history of alcoholism, chronic renal failure stage 4, diabetes mellitus type 2, and chronic lower extremity cellulitis is admitted from the ED with weakness, UTI, and cellulitis, referred to nutrition for same. HT: 177.8cm WT: 121kg UBW: 122kg BMI: 38.3 Labs: hgb 9.5 L, WBC 14.9 H, Na 132 L, BUN 61 H, Cr 2.66 H, eGFR 24 L, phos 4.0 H, bnp 2700 H Pt is weight stable since last admit in September 22, does not want to gain weight as he knows this decreases his ability to self transfer and puts added stress on LE cellulitis. Pt has home health and feels this is improving his quality of life and ability to consume food and take meds as directed. Pt is food insecure, receives Meals on Wheels daily for lunch and has <$200 in food benefits/mo. Pt is home bound so unable to do food bank. Usual Day: B: yogurt (pt phos is elevate but less so than last admit). L: MOW delivered D: pt reports trying to eat something, but this is most difficult meal for him secondary to food insecurity and chronic etoh use. This RD worked extensively c pt regarding food resources, recipes for wound healing c handouts. Pt feels this has been helpful, though barriers still present. MNA: 14 Yahir: 15 positive for skin breakdown Interventions: 1. ONS Luis Enrique bid Diet Order: CCD EER: 72g PRO (0.6g/kg per renal) Monitoring/Evaluations:
--- NOTE | 2019-11-14 12:05 | OT.IP.EVAL ---
Past Medical History (Last Reviewed 11/13/19 @ 17:50 by Miroslava Rodriguez DO) Alcoholism (Chronic) Anemia associated with chronic renal failure (Chronic) Cellulitis of lower leg (Chronic) Chronic kidney disease, stage 4 (severe) (Chronic) Chronic pain (Chronic) Depression (Chronic) Diabetes type 2, controlled (Chronic) Duodenal ulcer (Acute) GI bleed (Resolved) Gout, arthropathy (Chronic) History of cervical fracture (Resolved) Hyperparathyroidism (Chronic) Hypertension (Chronic) Left leg pain (Chronic) Symptomatic anemia (Chronic) Surgical History (Last Reviewed 11/13/19 @ 17:50 by Miroslava Rodriguez DO) H/O cervical spine surgery (Acute) History of colectomy (Resolved) History of fusion of cervical spine (Chronic) Occupational Therapy Inpatient Evaluation/Re-Eval M1 PT/OT-IP Prior Functional Status Start: 11/14/19 12:42 Freq: NEEDED Status: Active Protocol: Document 11/14/19 12:42 [facility] (Rec: 11/14/19 13:11 [facility] [id number]) Medical Review Prior Functional Status Medical History Reviewed Yes Communication Independent. Mobility and Gait Pt states mainly use of manual wc in the house to get around . Activities of Daily Living and IADL's Pt states able to dress himself, do grooming while standing at the kitchen sink, and use the toilet on his own. Pt has a caregiver who assist with showering, fixing meals, laundry, and for make sure that he has taken his medications which his sister fixes for him in a mediset. Social History Household Members none Living Arrangements Apartment/Condo Number of Floors (Floors) One Floor Number of Stairs To Enter/Railing? ramp Home Environment Standard Height Toilet,Tub/ Shower,Ramp Home Equipment Four Wheel Walker,Manual Wheelchair,Tub Transfer Bench, Hand Held Shower,Long Handled Sponge,Shellfish Meat Separator Operator,Sock Aid,Bed Rails,Grab Bars Near Toilet, Grab Bars In Shower Additional Social History Comment Pt has an adjustable bed and has left bed rail. M2 OT-IP Current Condition Start: 11/14/19 12:42 Freq: Status: Active Protocol: Document 11/14/19 12:42 [facility] (Rec: 11/14/19 13:11 [facility] [id number]) Occupational Therapy Current Condition Current Condition Evaluation Date 11/14/19 Treatment Diagnosis UTI,cellulitus, decreased self care and mobility Diagnosis Onset Date 11/13/19 M3 OT- IP Subjective and Pain Start: 11/14/19 12:42 Freq: Status: Active Protocol: Document 11/14/19 12:42 [facility] (Rec: 11/14/19 13:11 [facility] [id number]) OT- Subjective Occupational Therapy Visit Type Type Initial Evaluation Visit Start Time 11:13 Visit Stop Time 12:05 Total Visit Minutes 52 Occupational Therapy Visit Comments Patient Comments Pt in bed but willing to try to get up with OT and PT for therapy evals. Patient/Caregiver Goals To go home. OT Pain Assessment Pain When Pain Assessed At Rest Pain Present Pain Present Pain Reported Location Neck Intensity 7 Scale Used Numeric (0 - 10) M4 OT- IP ADL's Start: 11/14/19 12:42 Freq: Status: Active Protocol: Document 11/14/19 12:42 [facility] (Rec: 11/14/19 13:11 [facility] [id number]) OT [id number] Comments OT Self-Feeding Comments NOt at meal time. OT ADL-Grooming General Evaluation Grooming Ability Independent Comments OT Grooming Comments CGA while standing in front of the sink. OT ADL-Oral Care General Eval Oral Care Ability Independent OT ADL-Dressing General Eval Lower Body Dressing Ability Moderate Assistance Comments OT Dressing Comments MODA to naty shoes and pt able to take off his shoes on his own. OT ADL-Toileting General Evaluation Toileting Ability Total Assistance. Pt states his wc does not fit in the bathroom and has to stand outside of the doorway and use of grab bar and sink to help get to the toilet. Comments OT Toileting Comments Wells in place. OT ADL-Bathing Comments OT Bathing Comments NOt performed. M5 OT- IP IADL's Start: 11/14/19 12:42 Freq: Status: Active Protocol: Document 11/14/19 12:42 [facility] (Rec: 11/14/19 13:11 [facility] [id number]) OT-Instrumental Activities of Daily Living Medication Management Medication Management Caregiver Provides Supervision Money Management Money Management Caregiver Provides Assistance Meal Preparation Meal Preparation Caregiver Provides Assist Appliances Sample Maker Appliances Sample Maker Caregiver Provides Assist M6 OT- IP Functional Cognition Start: 11/14/19 12:42 Freq: Status: Active Protocol: Document 11/14/19 12:42 [facility] (Rec: 11/14/19 13:11 [facility] [id number]) Cognitive Factors Limiting Selfcare Function Cognitive Ability Level of Alertness Alert Patient Orientation Name,Place,Situation Ability to Follow Commands Able to Follow One Step Commands Memory Description Short Term Impaired Cognitive Comments Cognitive Assessment Comments Pt able to follow one step commands. Pt a little confused on his set-up at home, mainly how her transfers from bed to wc and back. Pt able to perform but not able to states in words. OT- Vision and Hearing OT- Hearing Assessment OT- Hearing Assessment WFL M7 OT- IP Mobility and Balance Start: 11/14/19 12:42 Freq: Status: Active Protocol: Document 11/14/19 12:42 [facility] (Rec: 11/14/19 13:11 [facility] [id number]) OT- Bed Mobility Assessment Supine to Sit Supine to Sit Assist Standby Assistance,Head of Bed Elevated,Bedrails Sit to Supine Sit to Supine Assist Standby Assistance Scooting Scooting to Edge of Bed Standby Assistance OT-Transfer Assessment Sit to and From Stand Sit to and from Stand Contact Guard Assistance, Moderate Assistance,1 Person Assistance Transfers Transfer Ability Contact Guard Assistance, Moderate Assistance,2 Person Assistance Technique Transfer Destination Bed,Wheelchair Devices Transfer Assistive Devices None,Gait Belt Comments Mobility Comments Pt when coming from the bed needing CGA to stand and transfer with wc directing in front of him to help hang to the armrests of the wc. Pt turns to the left from the bed . However, during the transfer back to bed, pt needing MODA x2 to stand and able to turn to the right to get to the bed while holding to the bed rail to assist. OT- Gait Assessment Comments Gait Ability Comments Pt only did transfer at this time. OT- Balance Assessment Sitting Balance and Reactions Static Sitting Balance Ability Good Dynamic Sitting Balance Ability Fair Standing Balance and Reactions Static Standing Balance Ability Poor M8 OT- IP Objective Assessments Start: 11/14/19 12:42 Freq: Status: Active Protocol: Document 11/14/19 12:42 [facility] (Rec: 11/14/19 13:11 [facility] [id number]) OT Gross Range of Motion Upper Extremity Range of Motion Assessment Bilaterally Impaired ROM Impairments Pt from bilateral elbow to distal WFL, BUE shoulder flexion limited to 0-20. OT Strength Comments Strength Comments BUE from elbow to distal 5/5. BUE shoulder 2-/5. OT-Muscle Tone Assessment Muscle Tone WNL Yes M9 OT- IP Assessment and Plan Start: 11/14/19 12:42 Freq: Status: Active Protocol: Document 11/14/19 12:42 [facility] (Rec: 11/14/19 13:11 [facility] [id number]) OT Summary Assessment and Plan Potential Rehabilitation Potential Good Analytic Complexity at Evaluation Low Summary OT Impairments Pain,Range of Motion,Strength, Balance,Functional Mobility, Grooming,Dressing,Toileting, Bathing,Toilet Transfers, Shower Transfers,Activity Tolerance Progress Towards Goals Slow Progress due to Pain,Slow Progress due to Medical Issues,Slow Progress due to Activity Tolerance Assessment Summary Pt low complexity and main barriers are not consistent with his mobility/transfers form CGA x1 to MODA X 2. Pt now needing more assist for ADl's as well. Pt would benefit from skilled rehab prior to going home. Goals Self-Feeding Goal Independent Grooming Goal Independent Dressing Goal Independent Toileting Goal Independent Toilet Transfer Goal Independent Days to Meet Goals 10 Frequency of Treatment Frequency Of Treatment Once a Day Treatment Plan OT Treatment Plan ADL Training,Functional Cognition Training,Functional Mobility,Patient/Family Education,Discharge Planning Other Treatment Recommendations and Next SLUMS to compare scores from 6 Treatment Focus /09/22 which he scored 24/30. Discharge Recommendations OT Discharge Recommendations SNF Rehab Transportation Needs at Discharge Wheelchair/Cabulance
--- NOTE | 2019-11-14 13:50 | PT.IIE ---
Surgical History (Last Reviewed 11/13/19 @ 17:50 by Miroslava Rodriguez DO) H/O cervical spine surgery (Acute) History of colectomy (Resolved) History of fusion of cervical spine (Chronic) Medical History (Last Reviewed 11/13/19 @ 17:50 by Miroslava Rodriguez DO) Alcoholism (Chronic) Anemia associated with chronic renal failure (Chronic) Cellulitis of lower leg (Chronic) Chronic kidney disease, stage 4 (severe) (Chronic) Chronic pain (Chronic) Depression (Chronic) Diabetes type 2, controlled (Chronic) Duodenal ulcer (Acute) GI bleed (Resolved) Gout, arthropathy (Chronic) History of cervical fracture (Resolved) Hyperparathyroidism (Chronic) Hypertension (Chronic) Left leg pain (Chronic) Symptomatic anemia (Chronic) Physical Therapy Inpatient Evaluation/Re-Eval M1 PT/OT-IP Prior Functional Status Start: 11/14/19 12:42 Freq: NEEDED Status: Active Protocol: Document 11/14/19 13:19 [facility] (Rec: 11/14/19 13:50 AW [id number]) Medical Review Prior Functional Status Medical History Reviewed Yes Communication Independent. Mobility and Gait Pt states mainly use of manual wc in the house to get around . He is able to perform transfers on his own but his w /c does not fit in the bathroom. He takes the w/c to the bathroom, stands in the doorframe, and uses a grab bar on his left side to transfer to the toilet on the left. He states he spends most of the day in the bed or in the w/c Activities of Daily Living and IADL's Pt states able to dress himself, do grooming while standing at the kitchen sink, and use the toilet on his own. Pt has a caregiver who assist with showering, fixing meals, laundry, and for make sure that he has taken his medications whcih his sister fixes for him in a mediset. Caregiver works with him 2-5 hours per day M-F. Patient just manages on the weekends. Prior Functional Level (Other details) [facility] is currently contracted with PT and OT. Unclear on other services involved. Pt states he has a [employer]. Social History Household Members none Living Arrangements Apartment/Condo Number of Floors (Floors) One Floor Number of Stairs To Enter/Railing? ramp Home Environment Standard Height Toilet,Tub/ Shower,Ramp Home Equipment Four Wheel Walker,Manual Wheelchair,Tub Transfer Bench, Hand Held Shower,Long Handled Sponge,Bull Gang Worker,Sock Aid,Bed Rails,Grab Bars Near Toilet, Grab Bars In Shower Additional Social History Comment Pt has an adjustable bed and has left bed rail. M2 PT-IP Current Condition Start: 11/14/19 08:45 Freq: NEEDED Status: Active Protocol: Document 11/14/19 13:19 AW (Rec: 11/14/19 13:50 AW [email or web address]) Physical Therapy Current Condition Current Condition Evaluation Date 11/14/19 Treatment Diagnosis UTI, LE cellulitis, generalized weakness, difficulty in walking Precautions Other Precautions high falls risk M3 PT-IP Subjective Start: 11/14/19 08:45 Freq: NEEDED Status: Active Protocol: Document 11/14/19 13:19 [facility] (Rec: 11/14/19 13:50 AW [email or web address]) Subjective Physical Therapy Visit Type Type Initial Evaluation Visit Start Time 11:15 Visit Stop Time 11:52 Total Visit Minutes 37 Notes Co-eval with OT due to need for max A x 2 at last hospital encounter Physical Therapy Visit Comments Patient Comments Pt is willing to participate with therapies Patient Goals Pt states he prefers to avoid SNF rehab if possible but is willing if necessary. Therapy Pain Assessment Pain When Pain Assessed During Mobility Pain Present Pain Present Pain Reported Location Neck Intensity 7 Scale Used Numeric (0 - 10) M4 PT-IP Mobility and Gait Start: 11/14/19 08:45 Freq: NEEDED Status: Active Protocol: Document 11/14/19 13:19 AW (Rec: 11/14/19 13:50 AW [email or web address]) PT-Bed Mobility Assessment Supine to Sit Supine to Sit Standby Assistance,Head of Bed Elevated,Bedrails Sit to Supine Sit to Supine Standby Assistance,Bedrails Scooting Scooting to Edge of Bed Standby Assistance PT-Transfer Assessment Sit to and From Stand Sit to and from Stand Moderate Assistance,2 Person Assistance,Use of Upper Extremities Equipment Transfer Assistive Device Gait Belt Transfers Transfer Destination Wheelchair Transfer Technique Squat Pivot Transfer Ability Level of Assist Moderate Assistance,2 Person Assistance Comments Mobility Comments Pt was reclined in the bed as PT and OT arrived. With HOB fully upright, pt was able to complete supine to sit and scoot toward EOB SBA. With w/c directly in front of him, pt was able to reach forward to the w/c arms and turn 180 degrees to his left side to transfer to the w/c CGA x 2. He sat and propelled himself using BLE around the room, ending up at the sink. He was able to stand at the sink by reaching for the counter to pull himself up min A x 1. He stood for hygiene with forearms on the counter while he brushed his teeth. As he stood, his legs buckled occasionally with need for increased support on the counter. He sat back on the w/ c and propelled himself back to the bed. PT and OT noticed bright red blood on his left heel dressing. RN requested pt return to bed for wound care. Pt attempted to stand from the w/c directly across from the bed but needed mod A x 2 to stand before turning to the right to transfer to the bed. Pt completed sit to supine with HOB flat SBA with use of bed rails. Pt was positioned on the bed with heels floated and left with OT/RN for further treatment. Gait Assessment Comments Gait Comments Pt unable. Stair Climbing Assessment Comments Stair Climbing Comments Not assessed. No stairs at home. PT-Balance Assessment Sitting Balance and Reactions Static Sitting Balance Ability Good Dynamic Sitting Balance Ability Fair Standing Balance and Reactions Static Standing Balance Ability Poor Dynamic Standing Balance Ability Poor Device Used none M5 PT-IP Objective Assessments Start: 11/14/19 08:45 Freq: NEEDED Status: Active Protocol: Document 11/14/19 13:19 AW (Rec: 11/14/19 13:50 AW [id number]) Orientation Orientation/Cognition Level of Alertness Alert Orientation Name,Month,Place,Situation Language Function Ability No Deficits Noted Safety Awareness Decreased Safety Awareness Gross Range of Motion Upper Extremity ROM Assessment Bilaterally Impaired Impairments limited OH ROM Lower Extremity ROM Assessment Bilaterally Impaired Impairments soft tissue/habitus limitations Strength Lower Extremity Strength Assessment Bilaterally Impaired Hip 3+/5 Knee 4-/5 Coordination Assessment Gross Coordination Gross Coordination WNL Sensation Assessment Sensation Gross Sensation Right LE Impaired,Left LE Impaired Light Touch Impaired Proprioception (Position) Impaired Comments Sensation Comments BLE neuropathy with stocking distribution. Left is more affected than right. M6 PT-IP Treatment Start: 11/14/19 08:45 Freq: NEEDED Status: Active Protocol: Document 11/14/19 13:19 AW (Rec: 11/14/19 13:50 AW [email or web address]) Physical Therapy Treatment Education Education Provided Precautions,Safety Other Treatments Other Treatment Performed Provided education on role of PT, plan of care, and initiated discharge planning conversation. M7 PT-IP Assessment and Plan Start: 11/14/19 08:45 Freq: NEEDED Status: Active Protocol: Document 11/14/19 13:19 AW (Rec: 11/14/19 13:50 AW [id number]) PT Summary Assessment and Plan Potential Rehabilitation Potential Fair Status of Condition at Evaluation Evolving Summary Impairments Pain,ROM,Strength,Balance, Sensation,Bed Mobility, Transfers,Gait,Activity Tolerance Assessment Summary Cristóbal is a 69 yo man seen for PT evaluation with admitting diagnosis of UTI and LE cellulitis. He depends on a wheelchair for household mobility and is typically able to transfer independently. He reports he is able to walk in his home and up/down his ramp with HH PT. He has caregiver support for 2-5 hours daily during the week but is alone on the weekends. On evaluation , pt's independence with transfers was variable and definitely deteriorated with increased activity and fatigue . Pt would not likely be safe to discharge home in his current state as he requires more assist than he does at baseline. Pt would benefit from SNF rehab to regain strength and independence with functional mobility before returning home with potential resumption of home health services. PT will continue to assess and refine discharge recommendation. Goals Bed Mobility Goal Independent Transfer Goal Standby Assistance Gait Goal Standby Assistance,Four Wheel Walker Gait Distance 25 Days to Meet Goals 5 Frequency of Treatment Frequency Of Treatment Once a Day Treatment Plan Physical Therapy Treatment Plan Bed Mobility Training,Transfer Training,Gait Training, Therapeutic Exercise,Balance Retraining,Post Op Education, Discharge Planning,Hot or Cold Pack,Neuromuscular Re-ed Other Recommendations and Next Treatment transfers; ther ex for BLE; Focus gait with chair follow as tolerated Recommendations To Nursing Amount of Assist Needed 2 Person Assist Discharge Recommendations PT Discharge Recommendations SNF Rehab Other Discharge Recommendations SNF vs home with resumed HH Transportation Needs at Discharge Wheelchair/Cabulance
[2019-11-14] MEDS: FUROSEMIDE 40 MG TABLET 80 MG PO (14:58)
[2019-11-14] MEDS: lisinopriL 5 MG TABLET PO (14:58)
[2019-11-14] MEDS: PANTOPRAZOLE 40 MG TABLET PO (14:58)
[2019-11-14] MEDS: HYDROCODONE/ACET 5/325 TABLET 1 TAB PO ×2 (14:59→19:58)
--- NOTE | 2019-11-14 16:36 | PC.NURSE ---
Assumed care at 1500. Pt resting in bed during bedside hand-off. Denies pain. Elevated BP noted. Rec VTO to stop IVF.
[2019-11-14] MEDS: VANCOMYCIN 1,000 MG/200 ML PIGGYBACK 200 MG IV (19:57)
[2019-11-14] MEDS: MELATONIN 3 MG TABLET 6 MG PO (19:58)
[2019-11-14] MEDS: DULOXETINE 30 MG CAPSULE 60 MG PO (19:58)
[2019-11-14] MEDS: DOXAZOSIN 4 MG TABLET PO (20:03)
[2019-11-14] MEDS: CEFTRIAXONE 2 GM/50 ML FROZ.PIGGY IV (21:58)
[2019-11-15 04:00] VITALS: BP 134/51; PULSE 79; RESP 14; TEMP 36.9; O2SAT 99
[2019-11-15 06:27] LABS: Add Manual Diff / Slide Review NO; Basophils Absolute Auto 0 /uL (0-100); Basophils Percent Auto 0.3 % (0-2); Eosinophils Absolute Auto 200 /uL (0-450); Eosinophils Percent Auto 1.9 % (2-4); Hematocrit 28.5 % (41-53); Hemoglobin 9.2 g/dL (13.5-17.5); Lymphocytes Absolute Auto 600 /uL (1100-4500); Lymphocytes Percent Auto 5.7 % (25-40); Mean Corpuscular HGB Conc 32.4 % (30-36); Mean Corpuscular Hemoglobin 30.6 PG (26-34); Mean Corpuscular Volume 94.3 fL (80-100); Monocytes Absolute Auto 900 /uL (0-900); Monocytes Percent Auto 8.3 % (3-14); Neutrophils Absolute Auto 8900 /uL (1500-7000); Neutrophils Percent Auto 83.8 % (50-75); Platelet Count 181 X10^3/uL (150-400); Red Blood Cell Count 3.02 X10^6/uL (4.5-5.9); Red Cell Distribution Width 16.8 % (11.6-14.8); White Blood Cell Count 10.6 X10^3/uL (4.5-11.0)
[2019-11-15 06:37] LABS: BUN Creatinine Ratio 22.5 (6-22); Blood Urea Nitrogen 64 mg/dL (9-20); Calcium 8.1 mg/dL (8.4-10.2); Carbon Dioxide 24 mmol/L (22-32); Chloride 102 mmol/L (98-107); Estimated Glomerular Filt Rate 22.2 mL/min (>60); Glucose 138 mg/dL (80-110); HEMOLYSIS < 15 (0-50); Magnesium 1.9 mg/dL (1.6-2.3); Phosphorous 4.4 mg/dL (2.3-3.7); Sodium 135 mmol/L (137-145)
[2019-11-15 06:40] LABS: D Dimer 702 ng/mL (<230)
[2019-11-15 06:44] LABS: NT-proBNP (BNP-Adult 18+) 3300 pg/mL (<125)
--- NOTE | 2019-11-15 06:51 | PM.PN.1 ---
Subjective Subjective Date Patient Seen: 11/15/19 Time Patient Seen: 06:51 Interval history: Uneventful night. Wells still in, IV fluids hep-locked. Patient denies any chest pain or shortness of breath. Participating in Wound Care, PT, and OT. Appetite is good and he denies any nausea or vomiting. Exam Vital Signs (past 8 hours): - 11/14/19 23:20 11/15/19 04:00 Temperature 99.1 F 98.5 F Pulse Rate 81 79 Respiratory Rate 20 14 Blood Pressure 145/57 H 134/51 L Pulse Oximetry 96 99 Oxygen Delivery Method Room Air Oxygen Flow Rate 0 Narrative Exam Narrative: Alert and oriented, appearing stated age and in no acute distress. HEENT: Head normocephalic/atraumatic. Pupils equal, round, and reactive to light and accomodation. Extraocular muscles intact. Tympanic membranes clear. Nasal mucosa moist, septum midline. Oral mucosa dry, poor dentition, no lesions. Neck soft and supple, no lymphadenopathy. LUNGS: Clear to ausculation bilaterally, no wheezes, rhonchi or rales. CV: Normal S1 and S2 with regular rate and rhythm, 3/5 systolic murmur. No rubs or gallops. ABDOMEN: Soft, non-tender, non-distended, no organomegaly. Positive bowel sounds. EXTREMITIES: Bilateral lower extremity venous stasis with dry scaling skin. Almost completely healed left lower extremity ulcer. Clean dry and intact. NEURO: Cranial nerves II through XII grossly intact, no focal deficits. PSYCH: Alert and oriented x 3. Objective Labs Result Diagrams: 11/15/19 05:22 11/15/19 05:22 Labs: Laboratory Results - last 24 hr 11/14/19 11/15/19 11/15/19 08:25 05:00 05:22 WBC 10.6 RBC 3.02 L Hgb 9.2 L Hct 28.5 L MCV 94.3 MCH 30.6 MCHC 32.4 RDW 16.8 H Plt Count 181 Neut % (Auto) 83.8 H Lymph % (Auto) 5.7 L Appling % (Auto) 8.3 Eos % (Auto) 1.9 L Baso % (Auto) 0.3 Neut # (Auto) 8900 H Lymph # (Auto) 600 L Appling # (Auto) 900 Eos # (Auto) 200 Baso # (Auto) 0 D-Dimer 702 H Sodium Potassium Chloride Carbon Dioxide BUN Creatinine Estimated GFR BUN/Creatinine Ratio Glucose Lactate < 0.5 L Calcium Phosphorus Magnesium NT-Pro-B Natriuret Pep 11/15/19 05:22 WBC RBC Hgb Hct MCV MCH MCHC RDW Plt Count Neut % (Auto) Lymph % (Auto) Appling % (Auto) Eos % (Auto) Baso % (Auto) Neut # (Auto) Lymph # (Auto) Appling # (Auto) Eos # (Auto) Baso # (Auto) D-Dimer Sodium 135 L Potassium 4.0 Chloride 102 Carbon Dioxide 24 BUN 64 H Creatinine 2.85 H Estimated GFR 22.2 L BUN/Creatinine Ratio 22.5 H Glucose 138 H Lactate Calcium 8.1 L Phosphorus 4.4 H Magnesium 1.9 NT-Pro-B Natriuret Pep 3300 H Assessment & Plan Assessment & Plan narrative: HD#2 1. UTI with urinary retention and incontinence, acute -PSA 1.17 on 08/23/19 -WBC trending down, 16.9 --> 10.6 -Overnight fever, 100.4 on 11/14/19 -Preliminary urine culture shows Gram-negative bacteria. Plan: Continue vancomycin and ceftriaxone. Will trend labs and temperature. 2. Profound weakness, acute on chronic. Multifactorial etiology including sequela from alcoholism, acute UTI, recent GI bleed, recent prolonged hospital stay, etc. -Much improved. Plan: PT/OT for strengthening and gait training. 3. Bilateral lower extremity venous stasis with ulceration, left > right. -Historical wound cultures positive for Proteus and MRSA. -11/14/19 wound cultures pending. -Elevated d-dimer in ED 457, now 702 Plan: Ceftriaxone and vancomycin. Wound care and nutrition consult. Elevated d-dimer could be explained by patient's significant and chronic leg ulcers on top his UTI; however, as his level is rising, will rule DVT with duplex ultrasound. Holding off on CTA as patient has no dyspnea or chest pain. 4. Acute on chronic heart failure with preserved ejection fraction -Echo on 02/04/19 showed EF of 55%. -BNP 2700 --> 3300 -Making urine. PLAN: Will change home lasix to torsemide 40 mg p.o. q.day and recheck BMP and BNP in am. 5. Diabetes mellitus 2 with neuropathy Plan: Diabetic diet, continue home glimepiride 1 mg p.o. q.day. Sliding scale insulin if needed per protocol. 6. Hypertension Plan: Will continue home lisinopril 5 mg p.o. q.day. Switching to torsemide as above. 7. Chronic kidney disease stage 4, acute on chronic Plan: Pharmacy consulting for medication adjustments. Patient did receive gentle fluid bolus in ED. Will trend labs. 8. Hyperphosphatemia, likely secondary to chronic renal disease PLAN: Will continue to trend and check parathyroid hormone and vitamin-D levels to ensure no alternative etiology. 9. Anemia, normocytic/normochromic, stable Plan: Hemoglobin/hematocrit overall improved. Continue home iron, will continue to trend CBC. 10. Alcohol abuse -Recent inpatient detoxification. Plan: [facility] protocol 11. Spinal cord injury with central cord syndrome Plan: Chronic, supportive therapy with PT/OT. 12. Chronic pain, neck, back Plan: Continue home lidocaine patches, hydrocodone, duloxetine, and gabapentin. 13: Gout, chronic, not in flare. Plan: Continue allopurinol 200 mg p.o. q.day. 14: Depression/anxiety, chronic Plan: continue home medications including duloxetine, lorezapam, and citaloparam. GI prophylaxis: Oral Protonix. DVT prophylaxis: Lovenox. Code: Full Disposition: Hopeful for discharge to home tomorrow.
--- NOTE | 2019-11-15 07:19 | DI.US.S_ITS ---
PROCEDURE: US PERIPH VENOUS LOW EXTREM BI INDICATIONS: ELEVATED D-DIMER, clinical concern for DVT TECHNIQUE: Real-time imaging, as well as color and pulse Doppler interrogation, were performed of the deep veins of both legs from the inguinal ligament to the popliteal fossa. COMPARISON: None. FINDINGS: Right: The common femoral, femoral and popliteal veins are normally compressible, and free of intraluminal thrombus. Color and pulse Doppler demonstrate normal phasic intravascular flow. There is normal augmentation response to distal compression maneuver. Left: The common femoral, femoral and popliteal veins are normally compressible, and free of intraluminal thrombus. Color and pulse Doppler demonstrate normal phasic intravascular flow. There is normal augmentation response to distal compression maneuver. A prominent lymph node is seen within the left groin. The left lower extremity demonstrates generalized soft tissue edema. IMPRESSION: Negative for deep venous thrombosis. Dictated by: Matthew Ware M.D. on 11/15/2019 at 8:34 Approved by: Matthew Ware M.D. on 11/15/2019 at 8:35
[2019-11-15 08:05] VITALS: BP 154/70; PULSE 71; RESP 16; TEMP 36.2; O2SAT 96
[2019-11-15] MEDS: SILVER SULFADIAZINE 1% CREAM 25 GM 1 APPLIC TOP (08:38)
[2019-11-15] MEDS: INSULIN ASPART 100 UNIT/ML INSULN PEN SUBCUT ×2 (08:38→11:51)
[2019-11-15] MEDS: ENOXAPARIN 30 MG/0.3 ML SYRINGE SUBCUT (08:39)
[2019-11-15] MEDS: lisinopriL 5 MG TABLET PO (08:40)
[2019-11-15] MEDS: LIDOCAINE PATCH 1 EACH ADH..PATCH TOP (08:40)
[2019-11-15] MEDS: HYDROCODONE/ACET 5/325 TABLET 1 TAB PO ×2 (08:40→20:14)
[2019-11-15] MEDS: CITALOPRAM 20 MG TABLET PO (08:41)
[2019-11-15] MEDS: FOLIC ACID 1 MG TABLET PO (08:42)
[2019-11-15] MEDS: DULOXETINE 30 MG CAPSULE 60 MG PO ×2 (08:42→20:14)
[2019-11-15] MEDS: TORSEMIDE 10 MG TABLET 40 MG PO (08:42)
[2019-11-15] MEDS: MULTIVITAMIN 1 TABLET 1 TAB PO (08:42)
[2019-11-15] MEDS: PANTOPRAZOLE 40 MG TABLET PO (08:42)
[2019-11-15] MEDS: allopurinoL 100 MG TABLET 200 MG PO (08:42)
[2019-11-15] MEDS: FERROUS GLUCONATE 324 MG TABLET PO (08:42)
[2019-11-15] MEDS: THIAMINE 100 MG TABLET PO (08:42)
[2019-11-15] MEDS: GLIMEPIRIDE 2 MG TABLET 1 MG PO (08:42)
[2019-11-15] MEDS: SODIUM CHLORIDE 0.9% FLUSH 10 ML IV ×2 (08:43→20:15)
--- NOTE | 2019-11-15 10:33 | OT.IP.TRT ---
Current Diagnoses Cellulitis of left lower limb (11/13/19) Occupational Therapy Treatment Note M2 OT-IP Current Condition Start: 11/14/19 12:42 Freq: Status: Active Protocol: Document 11/14/19 12:42 [facility] (Rec: 11/14/19 13:11 [facility] [id number]) Occupational Therapy Current Condition Current Condition Evaluation Date 11/14/19 Treatment Diagnosis UTI,cellulitus, decreased self care and mobility Diagnosis Onset Date 11/13/19 M3 OT- IP Subjective and Pain Start: 11/14/19 12:42 Freq: Status: Active Protocol: Document 11/15/19 11:50 CGR (Rec: 11/15/19 12:00 CGR [email or web address]) OT- Subjective Occupational Therapy Visit Type Type Progress Note Visit Start Time 10:10 Visit Stop Time 10:33 Total Visit Minutes 23 Occupational Therapy Visit Comments Patient Comments I would like to brush my teeth but I feel weak. OT Pain Assessment Pain When Pain Assessed At Rest Pain Present Pain Present Denied Pain M4 OT- IP ADL's Start: 11/14/19 12:42 Freq: Status: Active Protocol: Document 11/15/19 11:50 CGR (Rec: 11/15/19 12:00 CGR [email or web address]) OT [id number] Comments OT Self-Feeding Comments not meal time OT ADL-Grooming General Evaluation Grooming Ability Standby Assistance Areas Needing Assistance Retrieving/Set-up of Grooming Items,Combing/Brushing Hair, Face Washing Comments OT Grooming Comments All activities performed seated EOB SBA for face washing total assist for brushing hair and pt does not have the shld ROM to perform OT ADL-Oral Care General Eval Oral Care Ability Standby Assistance Comments Oral Care Comments seated EOB OT ADL-Dressing Comments OT Dressing Comments not performed OT ADL-Toileting General Evaluation Toileting Ability Total Assistance Comments OT Toileting Comments pt with higgins OT ADL-Bathing Comments OT Bathing Comments not performed on this date M5 OT- IP IADL's Start: 11/14/19 12:42 Freq: Status: Active Protocol: Document 11/14/19 12:42 [facility] (Rec: 11/14/19 13:11 [facility] [id number]) OT-Instrumental Activities of Daily Living Medication Management Medication Management Caregiver Provides Supervision Money Management Money Management Caregiver Provides Assistance Meal Preparation Meal Preparation Caregiver Provides Assist [employer] Delivery Driver Auto [employer] Delivery Driver Caregiver Provides Assist M6 OT- IP Functional Cognition Start: 11/14/19 12:42 Freq: Status: Active Protocol: Document 11/14/19 12:42 [facility] (Rec: 11/14/19 13:11 [facility] [id number]) Cognitive Factors Limiting Selfcare Function Cognitive Ability Level of Alertness Alert Patient Orientation Name,Place,Situation Ability to Follow Commands Able to Follow One Step Commands Memory Description Short Term Impaired Cognitive Comments Cognitive Assessment Comments Pt able to follow one step commands. Pt a little confused on his set-up at home, mainly how her transfers from bwd to wc and back. Pt able to perform but not able to states in words. OT- Vision and Hearing OT- Hearing Assessment OT- Hearing Assessment WFL M7 OT- IP Mobility and Balance Start: 11/14/19 12:42 Freq: Status: Active Protocol: Document 11/15/19 11:50 CGR (Rec: 11/15/19 12:00 CGR [email or web address]) OT- Bed Mobility Assessment Rolling Type of Rolling Roll to Left Level of Assistance Standby Assistance Supine to Sit Supine to Sit Assist Standby Assistance,Head of Bed Elevated,Bedrails Sit to Supine Sit to Supine Assist Standby Assistance Scooting Scooting to Edge of Bed Standby Assistance Scooting Up and Down in Bed Standby Assistance,Bedrails OT-Transfer Assessment Comments Mobility Comments Attempted sit to stand for scooting to HOB prior to returning to supine but pt with poor initiation and then states too weak to perform at this time and returned to bed for scooting self up with bed in trendelenberg without physical assist. OT- Gait Assessment Comments Gait Ability Comments did not occur OT- Balance Assessment Sitting Balance and Reactions Static Sitting Balance Ability Good Dynamic Sitting Balance Ability Fair Standing Balance and Reactions Static Standing Balance Ability Poor Dynamic Standing Balance Ability Poor M8 OT- IP Objective Assessments Start: 11/14/19 12:42 Freq: Status: Active Protocol: Document 11/14/19 12:42 [facility] (Rec: 11/14/19 13:11 [facility] [id number]) OT Gross Range of Motion Upper Extremity Range of Motion Assessment Bilaterally Impaired ROM Impairments Pt from bilateral elbow to distal WFL, BUE shoulder flexion limited to 0-20. OT Strength Comments Strength Comments BUE from elbow to distal 5/5. BUE shoulder 2-/5. OT-Muscle Tone Assessment Muscle Tone WNL Yes M9 OT- IP Assessment and Plan Start: 11/14/19 12:42 Freq: Status: Active Protocol: Document 11/15/19 11:50 CGR (Rec: 11/15/19 12:00 CGR [email or web address]) OT Summary Assessment and Plan Potential Rehabilitation Potential Good Analytic Complexity at Evaluation Low Summary OT Impairments Pain,Range of Motion,Strength, Balance,Functional Mobility, Grooming,Dressing,Toileting, Bathing,Toilet Transfers, Shower Transfers,Activity Tolerance Progress Towards Goals Slow Progress due to Pain,Slow Progress due to Medical Issues,Slow Progress due to Activity Tolerance Assessment Summary Pt presents today stating he feels weak and unable to transfer at this time. Pt performed ADLs seated EOB and requested to get back into bed at end of session. Pt's shld ROM prevent him from brushing his own hair. Pt would benefit from SNF upon discharge. Goals Self-Feeding Goal Independent Grooming Goal Independent Dressing Goal Independent Toileting Goal Independent Toilet Transfer Goal Independent Days to Meet Goals 10 Frequency of Treatment Frequency Of Treatment Once a Day Treatment Plan OT Treatment Plan ADL Training,Functional Cognition Training,Functional Mobility,Patient/Family Education,Discharge Planning Other Treatment Recommendations and Next SLUMS to compare scores from 6 Treatment Focus /09/22 which he scored 24/30. Discharge Recommendations OT Discharge Recommendations SNF Rehab Transportation Needs at Discharge Wheelchair/Cabulance
--- NOTE | 2019-11-15 11:23 | PT.IPTN ---
Current Diagnoses Cellulitis of left lower limb (11/13/19) Physical Therapy Treatment Note M2 PT-IP Current Condition Start: 11/14/19 08:45 Freq: NEEDED Status: Active Protocol: Document 11/14/19 13:19 AW (Rec: 11/14/19 13:50 AW [email or web address]) Physical Therapy Current Condition Current Condition Evaluation Date 11/14/19 Treatment Diagnosis UTI, LE cellulitis, generalized weakness, difficulty in walking Precautions Other Precautions high falls risk M3 PT-IP Subjective Start: 11/14/19 08:45 Freq: NEEDED Status: Active Protocol: Document 11/15/19 11:23 AB (Rec: 11/15/19 12:20 AB [id number]) Subjective Physical Therapy Visit Type Type Treatment Note Visit Start Time 11:23 Visit Stop Time 11:45 Total Visit Minutes 22 Number of ODD JOBS DAY WORKER Visits 0 Physical Therapy Visit Comments Patient Comments pt is agreeble to do PT but refused to do ambulation M4 PT-IP Mobility and Gait Start: 11/14/19 08:45 Freq: NEEDED Status: Active Protocol: Document 11/15/19 11:23 AB (Rec: 11/15/19 12:20 AB [id number]) PT-Bed Mobility Assessment Supine to Sit Supine to Sit Standby Assistance,Head of Bed Elevated,Bedrails PT-Transfer Assessment Sit to and From Stand Sit to and from Stand Moderate Assistance,Maximum Assistance,1 Person Assistance ,Use of Upper Extremities Equipment Transfer Assistive Device Gait Belt,Front Wheeled Walker Orthotic/Prosthetic Devices or Brace: No Transfers Transfer Destination Chair Transfer Technique Stand Step Pivot Transfer Ability Level of Assist Moderate Assistance,1 Person Assistance,Use of Upper Extremities Comments Mobility Comments pt completed supine to sit with HOB elevated and pt used bed rail to assist: SBA/ pt was able to sit on EOB SBA. completed sit to stand from EOB mod to max A x 1 and another person CGA for safety. pt completed stand step transfer using FWW mod A and cues. required max A for controlled descent to chair. positioned pt on chair. call light and table placed within reach. M5 PT-IP Objective Assessments Start: 11/14/19 08:45 Freq: NEEDED Status: Active Protocol: Document 11/14/19 13:19 AW (Rec: 11/14/19 13:50 AW [email or web address]) Orientation Orientation/Cognition Level of Alertness Alert Orientation Name,Month,Place,Situation Language Function Ability No Deficits Noted Safety Awareness Decreased Safety Awareness Gross Range of Motion Upper Extremity ROM Assessment Bilaterally Impaired Impairments limited OH ROM Lower Extremity ROM Assessment Bilaterally Impaired Impairments soft tissue/habitus limitations Strength Lower Extremity Strength Assessment Bilaterally Impaired Hip 3+/5 Knee 4-/5 Coordination Assessment Gross Coordination Gross Coordination WNL Sensation Assessment Sensation Gross Sensation Right LE Impaired,Left LE Impaired Light Touch Impaired Proprioception (Position) Impaired Comments Sensation Comments BLE neuropathy with stocking distribution. Left is more affected than right. M6 PT-IP Treatment Start: 11/14/19 08:45 Freq: NEEDED Status: Active Protocol: Document 11/15/19 11:23 AB (Rec: 11/15/19 12:20 AB [id number]) Physical Therapy Treatment Education Education Provided Safety M7 PT-IP Assessment and Plan Start: 11/14/19 08:45 Freq: NEEDED Status: Active Protocol: Document 11/15/19 11:23 AB (Rec: 11/15/19 12:20 AB [email or web address]) PT Summary Assessment and Plan Potential Rehabilitation Potential Good Summary Impairments Strength,Balance,Sensation, Tone,Cognition,Bed Mobility, Transfers,Gait,Activity Tolerance Progress Towards Goals Slow Progress due to Activity Tolerance Assessment Summary pt requiring mod to max A x 1- 2 and cues for mobility. pt has decrease activity tolerance affecting independence. pt will require SNF rehab to improve strength and function. Goals Bed Mobility Goal Independent Transfer Goal Standby Assistance Gait Goal Standby Assistance,Front Wheel Walker,Four Wheel Walker Gait Distance 25 Days to Meet Goals 5 Frequency of Treatment Frequency Of Treatment Once a Day Treatment Plan Physical Therapy Treatment Plan Bed Mobility Training,Transfer Training,Gait Training, Therapeutic Exercise,Balance Retraining,Post Op Education, Discharge Planning,Hot or Cold Pack,Neuromuscular Re-ed Other Recommendations and Next Treatment transfers; ther ex for BLE; Focus gait with chair follow as tolerated Recommendations To Nursing Amount of Assist Needed 2 Person Assist Discharge Recommendations PT Discharge Recommendations SNF Rehab Transportation Needs at Discharge Wheelchair/Cabulance
[2019-11-15 12:00] VITALS: BP 133/64; PULSE 65; RESP 18; TEMP 36.4; O2SAT 97
--- NOTE | 2019-11-15 12:46 | PC.NURSE ---
Patient has been appropriate today with no behavioral issues. He is up in the chair and given 1 vicodin for discomfort. from wound care clinic into see patient and just recommended 2 allevyn dressings to be applied to r.foot. These both have been applied and patient does not really have a skin ulcer, it is more a couple of small red open areas from sloughing of skin. BS in the 140s and 130s. Patient given 1u of insulin each time. Patient is going to have higgins taken out soon. Resting comfortably in his chair.
[2019-11-15] MEDS: cephALEXin 250 MG CAPSULE PO ×2 (13:28→20:15)
[2019-11-15] MEDS: TRIMETH/SULFA 80/400 (SS) TABLET 1 TAB PO ×2 (13:28→20:15)
--- NOTE | 2019-11-15 15:33 | CM.DPC ---
DCP: continued: EMR reviewed this morning and see that Dr. Jefferson would like to see pt placed into an assisted living facility. Barriers to this plan are the limitation of facilities that will accept Medicaid patients and pt's very adamant refusal to do this. Did check with the [facility]isted facility [facility] that will take Medicaid: [facility]: the director Daniel and the admissions liaison Manuel both confirm that they have only a female bed open and no other openings in the foreseeable future Did confirm with [facility] that they would accept pt back for a Medicare snf stay if needed but this would not be a skilled nursing option. Had a lengthy discussion this afternoon with pt and his sister Rosa: [phone]. Both confirm that pt has been doing much better at home since getting his SONIA hours doubled after his recent stay at [facility]. Rosa is also working with pt's [facility] case packer and sealer Hudson: direct line: [phone] to get certified to take on 20 hours of SONIA care. Pt confirms Rosa took the lead in helping him get all the paperwork in for his SONIA eligibility and he says he is thankful to have her helping him. Discussed his current alcohol use. Pt states he is down to 2 12 oz beers a day and says I was drinking more, I was falling and I knew I had to cut down. CIWA has been checked daily: thus far: O Encouraged pt to consider cutting this even more as he is so strongly wishing to keep his own place and autonomy. He admits that calling [facility] as much as he does is an indicator that he is not managing well at home and agrees to reconsider this part of his daily routine. Rosa encourages same. Have spoken now with S[employer] Laminator Hudson who is very familiar with pt, although because of COVID she has never met him in person. She speaks regularly with Rosa and will do all she can to get pt whatever hours he is eligilble to receive. Will fax clinical notes to her now at her [place] office: fax: [phone]. Rosa and pt confirm pt has an appt coming up with Dr. Quintana/PCP. Rosa will be taking pt and pt says he wants to look at all his medications and see if he can decrease anything. He is aware that Dr. Quintana will be retiring soon and is looking forward to having this appt with him. P: at this point: from DC planning standpoint: d/c dispo options for pt when he is medically stable for d/c are: [facility] for short term snf stay and then home with [facility] and [facility] to resume vs a direct d/c home with that in place. Have discussed all this with [employer] colleague Gemma today. She is familiar with pt from prior admissions and agrees that options as stated are appropriate and that boarding pt in the hospital in hope that he will accept an assisted setting and one will accept him would not seem to be a realistic option. Gemma will be on tomorrow in the CM dept and will be available to Dr. Jefferson for further discussion. JOAO Euceda, who will be following this pt over the weekend for d/c planning will also be able to review the notes and assist with any needed information for Dr. Jefferson or rounding partner.
[2019-11-15 15:40] VITALS: BP 127/52; PULSE 71; RESP 16; TEMP 36.4; O2SAT 98
[2019-11-15] MEDS: MELATONIN 3 MG TABLET 6 MG PO (20:14)
[2019-11-15] MEDS: DOXAZOSIN 4 MG TABLET PO (20:17)
[2019-11-15 20:45] VITALS: BP 132/62; PULSE 68; RESP 16; TEMP 36.3; O2SAT 99
[2019-11-16 00:05] VITALS: BP 102/52; PULSE 69; RESP 16; TEMP 36.2; O2SAT 97
[2019-11-16 04:25] VITALS: BP 121/64; PULSE 69; RESP 16; TEMP 36.1; O2SAT 95
--- NOTE | 2019-11-16 06:17 | PM.DS.1 ---
History of Present Illness History of Present Illness Chief complaint: weakness Narrative: This 68-year-old male, prior smoker, with history of alcoholism, chronic renal failure stage 4, diabetes mellitus type 2, and chronic lower extremity cellulitis is admitted from the ED with profound weakness, UTI, and cellulitis. Chief complaint included weakness that is chronic and worsening; fell off the toilet prior to presentation and was unable to get back up. Vital signs upon presentation to the ED included a temperature of 101.7?, blood pressure 177/81, pulse 95, respirations 18, O2 saturation 95%. Lab workup significant for an elevated WBC at 16.7 with a left shift. H&H (10.1/22.9). Creatinine up from baseline of 2.38 to 2.85. CRP was elevated at 6; lactate and procalcitonin notably negative. D-dimer elevated at 57. Urinalysis showed pyuria, culture pending. Chest x-ray showed central vascular interstitial congestion, likely CHF in setting of cardiomegaly. CT head negative. Covid negative. In the ED, lower extremity wounds were found to be foul smelling, purulent, and with unchanged bandages. Prior wound cultures showed Proteus and MRSA. Wounds were redressed and ceftriaxone and vancomycin administered prior to transfer to the floor. Denies abdominal pain, chest pain, difficulty breathing, or bowel changes. Does endorse that he is becoming more incontinent of urine and dribbles all the time. Discharge Providers Provider Date of admission: 11/13/19 20:29 Discharge Date: 11/16/19 Primary care physician: Jim Quintana MD Consults: 11/13/19 20:42 Consult to Discharge Planning Routine Comment: Consult to Occupational Therapy Evaluate & Treat Comment: Physician Instructions: Evaluate and treat Consult to Physical Therapy Evaluate & Treat Comment: Physician Instructions: Evaluate and Treat 11/13/19 20:50 Consult to Dietitian, Adult Routine Comment: Reason For Exam: DM II, cellulitis, UTI 11/13/19 20:53 Consult to Wound Care Routine Comment: Consulting Provider: Jennifer Wound Care Discharge provider: Arcelia Jefferson MD Summary Hospital Course Discharge Diagnosis: 1. UTI with urinary retention and incontinence, acute 2. Profound weakness, acute on chronic. 3. Bilateral lower extremity venous stasis with ulceration, left > right. 4. Acute on chronic heart failure with preserved ejection fraction 5. Diabetes mellitus 2 with neuropathy 6. Hypertension 7. Chronic kidney disease stage 4, acute on chronic 8. Hyperphosphatemia, likely secondary to chronic renal disease 9. Anemia, normocytic/normochromic, stable 10. Alcohol abuse 11. Spinal cord injury with central cord syndrome 12. Chronic pain, neck, back 13: Gout, chronic, not in flare. 14: Depression/anxiety, chronic Hospital Course: Patient had a fairly unremarkable hospital stay. He was placed initially on vancomycin and ceftriaxone secondary to his previous lower extremity wound culture showing MRSA and Proteus; however, after his lower extremity ulcers were carefully examined, they were in a good state of healing (ie. almost completely resolved) and primary source of infection was thought to be due to patient's UTI. Urine culture showed E coli with positive ESBL. Bactrim and Keflex chosen based on sensitivities and cross coverage for bilateral lower extremity well-healing ulcers. Patient is tolerating oral medications well. Eating well, no nausea or vomiting. He is ambulating with 4 wheel walker and assistance but still very weak, PT/OT has recommended transfer to SNF prior to discharge to home for continued strengthening exercises as he is a high fall risk. Arrangements have been made for [facility] short-term stay. Discharge planning has been in contact with patient's high school social studies tutor and sister to facilitate transfer back to home when he is cleared. He already has a follow-up appointment scheduled with his PCP, Dr. Quintana, in the next 2 weeks. Outpatient furosemide was changed to torsemide during inpatient stay with excellent reduction in BNP. He will need BMP/BNP check at outpatient follow-up. On day of discharge, he is afebrile with stable vital signs throughout. Time spent on Discharge and Coordination of post-hospital care: 35 minutes Status at Discharge Cognitive/behavioral status at discharge: oriented Functional status at discharge: uses cane/walker Overall status at discharge: patient is progressing back to baseline Exam Vital Signs (past 8 hours): - 11/16/19 00:05 11/16/19 04:25 Temperature 97.2 F L 97.0 F L Pulse Rate 69 69 Respiratory Rate 16 16 Blood Pressure 102/52 L 121/64 Pulse Oximetry 97 95 Oxygen Delivery Method Room Air Oxygen Flow Rate 0 Narrative Exam Narrative: GENERAL: Alert and oriented, appearing stated age and in no acute distress. HEENT: Head normocephalic/atraumatic. Pupils equal, round, and reactive to light and accomodation. Extraocular muscles intact. Tympanic membranes clear. Nasal mucosa moist, septum midline. Oral mucosa dry, poor dentition, no lesions. Neck soft and supple, no lymphadenopathy. LUNGS: Clear to ausculation bilaterally, no wheezes, rhonchi or rales. CV: Normal S1 and S2 with regular rate and rhythm, 3/5 systolic murmur. No rubs or gallops. ABDOMEN: Soft, non-tender, non-distended, no organomegaly. Positive bowel sounds. EXTREMITIES: Bilateral lower extremity venous stasis with dry scaling skin. Almost completely healed left lower extremity ulcer. Clean dry and intact. NEURO: Cranial nerves II through XII grossly intact, no focal deficits. PSYCH: Alert and oriented x 3. Objective Labs Result Diagrams: 11/16/19 06:00 11/16/19 06:00 Labs: Laboratory Results - last 24 hr 11/15/19 11/15/19 11/15/19 05:00 05:22 05:22 WBC 10.6 RBC 3.02 L Hgb 9.2 L Hct 28.5 L MCV 94.3 MCH 30.6 MCHC 32.4 RDW 16.8 H Plt Count 181 Neut % (Auto) 83.8 H Lymph % (Auto) 5.7 L [place] % (Auto) 8.3 Eos % (Auto) 1.9 L Baso % (Auto) 0.3 Neut # (Auto) 8900 H Lymph # (Auto) 600 L [place] # (Auto) 900 Eos # (Auto) 200 Baso # (Auto) 0 D-Dimer 702 H Sodium 135 L Potassium 4.0 Chloride 102 Carbon Dioxide 24 BUN 64 H Creatinine 2.85 H Estimated GFR 22.2 L BUN/Creatinine Ratio 22.5 H Glucose 138 H Calcium 8.1 L Phosphorus 4.4 H Magnesium 1.9 NT-Pro-B Natriuret Pep 3300 H Discharge Plan Discharge Plan Patient Disposition: SNF Transfer to: [facility] Discharge orders & Medications Prescriptions: New sulfamethoxazole-trimethoprim 400-80 mg Tablet 1 tab PO BID Qty: 18 RF: 0 cephalexin 250 mg Capsule 250 mg PO TID Qty: 27 RF: 0 torsemide 10 mg Tablet 40 mg PO DAILY Qty: 30 RF: 0 Continued doxazosin 4 mg Tablet 4 mg PO BEDTIME RF: 0 duloxetine 60 mg capsule,delayed release(DR/EC) 60 mg PO BID RF: 0 polyethylene glycol 3350 17 gram/dose Powder 17 g PO DAILY PRN (Reason: Constipation) RF: 0 silver sulfadiazine [SSD] 1 % cream 1 applic TOPICAL TID RF: 0 lorazepam 0.5 mg tablet 0.5 mg PO TID PRN (Reason: Anxiety) RF: 0 citalopram 20 MG tablet 20 mg PO DAILY RF: 0 glimepiride 1 mg tablet 1 mg PO DAILY RF: 0 lidocaine 5 % adhesive patch,medicated 1 patch TOP DAILY Qty: 30 RF: 0 pantoprazole 40 mg Tablet,Delayed Release (Dr/Ec) 40 mg PO DAILY RF: 0 hydrocodone-acetaminophen 5-325 mg Tablet 1 tab PO BEDTIME RF: 0 multivitamin [Tab-A-Isidro] Tablet 1 tab PO DAILY Qty: 90 RF: 1 ferrous gluconate 324 mg (38 mg iron) tablet 324 mg PO DAILY RF: 0 allopurinol [Zyloprim] 100 mg tablet 200 mg PO DAILY RF: 0 atorvastatin [Lipitor] 40 mg tablet 40 mg PO BEDTIME RF: 0 melatonin 3 mg Tablet 6 mg PO BEDTIME RF: 0 acetaminophen 325 mg Tablet 650 mg PO Q6HR PRN (Reason: Fever/Mild Pain (1-3)) Qty: 30 RF: 0 folic acid 1 mg Tablet 1 mg PO DAILY Qty: 30 RF: 0 lisinopril 5 mg Tablet 5 mg PO DAILY Qty: 30 RF: 0 multivitamin [Tab-A-Isidro] Tablet 1 tab PO DAILY Qty: 30 RF: 0 magnesium hydroxide [Milk of Magnesia] 400 mg/5 mL Suspension 30 ml PO DAILY PRN (Reason: Constipation) Qty: 270 RF: 0 hydrocodone-acetaminophen 5-325 mg Tablet 1 tab PO DAILY Qty: 30 RF: 0 lorazepam 0.5 mg Tablet 0.5 mg PO Q4HR PRN (Reason: Anxiety) Qty: 90 RF: 0 Discontinued furosemide 40 mg Tablet 80 mg PO DAILY RF: 0 cefepime in dextrose 5 % 1 gram/50 mL Piggyback 1 gm IV DAILY Qty: 30 RF: 0 Follow up/Referrals: Jim Quintana MD [Primary Care Provider] - Discharge Health Status Multidrug resistant organism: MRSA Precautions: Contact Diet/Activity/Treatments Diet: Carb-consistent/Diabetic Food texture: Regular Activity: wheelchair, advance per PT Skin/Wound/Dressing Care Skin care: wound care for leg wounds Report to your healthcare provider any signs of infection, such as:: chills, fever, increased pain and unusual drainage Special Rehabilitation Services Reason for rehabilitation: Recovery r/t decondition Rehab type: Physical therapy, Occupational therapy and Home health Restrictions to mobility: as above, fall risk Discharge Data Primary Care Provider: Jim Quintana
[2019-11-16 06:25] LABS: Add Manual Diff / Slide Review NO; Basophils Absolute Auto 0 /uL (0-100); Basophils Percent Auto 0.6 % (0-2); Eosinophils Absolute Auto 300 /uL (0-450); Eosinophils Percent Auto 4.6 % (2-4); Hematocrit 29.1 % (41-53); Hemoglobin 9.4 g/dL (13.5-17.5); Lymphocytes Absolute Auto 500 /uL (1100-4500); Lymphocytes Percent Auto 6.5 % (25-40); Mean Corpuscular HGB Conc 32.5 % (30-36); Mean Corpuscular Hemoglobin 30.4 PG (26-34); Mean Corpuscular Volume 93.5 fL (80-100); Monocytes Absolute Auto 800 /uL (0-900); Neutrophils Absolute Auto 5400 /uL (1500-7000); Neutrophils Percent Auto 77.3 % (50-75); Platelet Count 199 X10^3/uL (150-400); Red Blood Cell Count 3.11 X10^6/uL (4.5-5.9); Red Cell Distribution Width 16.8 % (11.6-14.8)
[2019-11-16 06:32] LABS: BUN Creatinine Ratio 26.3 (6-22); Blood Urea Nitrogen 77 mg/dL (9-20); Calcium 8.5 mg/dL (8.4-10.2); Carbon Dioxide 27 mmol/L (22-32); Chloride 101 mmol/L (98-107); Estimated Glomerular Filt Rate 21.5 mL/min (>60); Glucose 131 mg/dL (80-110); HEMOLYSIS < 15 (0-50); Magnesium 1.9 mg/dL (1.6-2.3); Potassium 4.4 mmol/L (3.4-5.1); Sodium 134 mmol/L (137-145)
[2019-11-16 06:40] LABS: NT-proBNP (BNP-Adult 18+) 1780 pg/mL (<125)
[2019-11-16 08:00] VITALS: BP 122/59; PULSE 66; RESP 20; TEMP 36.6; O2SAT 98
--- NOTE | 2019-11-16 08:00 | CM.DPC ---
Addendum entered by Kinsey Dotson R.N. 11/16/19 08:27: Alda from [facility] called back and set up time of pear picker at 11:00. Updated nurse, irina Escoto board, and patient. Also, updated patient's sister, Rosa, as well. Patient is not wanting to stay long at [facility], and is wanting to go home on Monday. Original Note: DCP Cont: Patient is to be discharged today to [facility]. Notes indicate that sister has been working on increasing [facility] caregiving hours, for plan is for patient to return home with [facility] caregivers after [facility]. Have already completed PASSR, Dr. Jefferson signed printed med list, and prescriptions are completed. Have left a message with [facility] regarding discharge. Discharge summary completed. P: Will follow up with [facility] today to arrange transportation. Will fax med list, PASSR, and discharge summary to [facility]. Kinsey Dotson RN/Community Health Advisor
[2019-11-16] MEDS: CITALOPRAM 20 MG TABLET PO (08:59)
[2019-11-16] MEDS: DULOXETINE 30 MG CAPSULE 60 MG PO (08:59)
[2019-11-16] MEDS: cephALEXin 250 MG CAPSULE PO (08:59)
[2019-11-16] MEDS: ENOXAPARIN 30 MG/0.3 ML SYRINGE SUBCUT (08:59)
[2019-11-16] MEDS: allopurinoL 100 MG TABLET 200 MG PO (08:59)
[2019-11-16] MEDS: HYDROCODONE/ACET 5/325 TABLET 1 TAB PO (09:00)
[2019-11-16] MEDS: THIAMINE 100 MG TABLET PO (09:00)
[2019-11-16] MEDS: FERROUS GLUCONATE 324 MG TABLET PO (09:00)
[2019-11-16] MEDS: SODIUM CHLORIDE 0.9% FLUSH 10 ML IV (09:00)
[2019-11-16] MEDS: FOLIC ACID 1 MG TABLET PO (09:00)
[2019-11-16] MEDS: LIDOCAINE PATCH 1 EACH ADH..PATCH TOP (09:01)
[2019-11-16] MEDS: lisinopriL 5 MG TABLET PO (09:01)
[2019-11-16] MEDS: PANTOPRAZOLE 40 MG TABLET PO (09:01)
[2019-11-16] MEDS: MULTIVITAMIN 1 TABLET 1 TAB PO (09:01)
[2019-11-16] MEDS: GLIMEPIRIDE 2 MG TABLET 1 MG PO (09:03)
[2019-11-16] MEDS: TRIMETH/SULFA 80/400 (SS) TABLET 1 TAB PO (09:04)
[2019-11-16] MEDS: TORSEMIDE 10 MG TABLET 40 MG PO (09:04)
--- NOTE | 2019-11-16 10:28 | PT.IPTN ---
Current Diagnoses Cellulitis of left lower limb (11/13/19) Physical Therapy Treatment Note M2 PT-IP Current Condition Start: 11/14/19 08:45 Freq: NEEDED Status: Active Protocol: Document 11/14/19 13:19 AW (Rec: 11/14/19 13:50 AW [email or web address]) Physical Therapy Current Condition Current Condition Evaluation Date 11/14/19 Treatment Diagnosis UTI, LE cellulitis, generalized weakness, difficulty in walking Precautions Other Precautions high falls risk M3 PT-IP Subjective Start: 11/14/19 08:45 Freq: NEEDED Status: Active Protocol: Document 11/16/19 10:00 KS (Rec: 11/16/19 11:22 KS [email or web address]) Subjective Physical Therapy Visit Type Type Treatment Note Visit Start Time 10:00 Visit Stop Time 10:28 Total Visit Minutes 28 Number of HYPERBARIC TECH Visits 1 Physical Therapy Visit Comments Patient Comments pt is agreeble to do PT but refused to do ambulation M4 PT-IP Mobility and Gait Start: 11/14/19 08:45 Freq: NEEDED Status: Active Protocol: Document 11/16/19 10:00 KS (Rec: 11/16/19 11:22 KS [email or web address]) PT-Bed Mobility Assessment Supine to Sit Supine to Sit Standby Assistance,Head of Bed Elevated,Bedrails Scooting Scooting to Edge of Bed Contact Guard Assistance PT-Transfer Assessment Sit to and From Stand Sit to and from Stand Minimal Assistance,1 Person Assistance,Use of Upper Extremities Equipment Transfer Assistive Device Gait Belt,Front Wheeled Walker Orthotic/Prosthetic Devices or Brace: No Transfers Transfer Destination Chair Transfer Technique Stand Step Pivot Transfer Ability Level of Assist Minimal Assistance,1 Person Assistance,Use of Upper Extremities Comments Mobility Comments Pt in bed upon arrival from therapy and agreed to transfer to chair. Pt SBA for sup<>sit w/ HOB elevated and CGA w/ cues for scooting to EOB. Min A for sit<>stand w/ FWW and stand step pivot to chair for FWW management. Pt refused marching in place. Pt stand<> sit w/ Min A d/t poor control w/ descent. Pt reclined in chair w/ all needs in reach. Gait Assessment Gait Gait Assistance Required: Contact Guard Assist,Minimum Assistance Distance (Feet) 2 Assistive Devices Assistive Device Front Wheeled Walker Factors Limiting Gait Function Factors Limiting Gait Function Decreased Activity Tolerance, Decreased Sensation,Decreased Strength,Incoordination,Poor Balance,Poor Safety Awareness Comments Gait Comments Please refer to mobility section for details. Stand step pivot transfer only. PT-Balance Assessment Sitting Balance and Reactions Static Sitting Balance Ability Good Dynamic Sitting Balance Ability Fair Standing Balance and Reactions Static Standing Balance Ability Poor Dynamic Standing Balance Ability Poor Device Used none M5 PT-IP Objective Assessments Start: 11/14/19 08:45 Freq: NEEDED Status: Active Protocol: Document 11/14/19 13:19 AW (Rec: 11/14/19 13:50 AW [email or web address]) Orientation Orientation/Cognition Level of Alertness Alert Orientation Name,Month,Place,Situation Language Function Ability No Deficits Noted Safety Awareness Decreased Safety Awareness Gross Range of Motion Upper Extremity ROM Assessment Bilaterally Impaired Impairments limited OH ROM Lower Extremity ROM Assessment Bilaterally Impaired Impairments soft tissue/habitus limitations Strength Lower Extremity Strength Assessment Bilaterally Impaired Hip 3+/5 Knee 4-/5 Coordination Assessment Gross Coordination Gross Coordination WNL Sensation Assessment Sensation Gross Sensation Right LE Impaired,Left LE Impaired Light Touch Impaired Proprioception (Position) Impaired Comments Sensation Comments BLE neuropathy with stocking distribution. Left is more affected than right. M6 PT-IP Treatment Start: 11/14/19 08:45 Freq: NEEDED Status: Active Protocol: Document 11/16/19 10:00 KS (Rec: 11/16/19 11:22 KS [email or web address]) Physical Therapy Treatment Education Education Provided Safety M7 PT-IP Assessment and Plan Start: 11/14/19 08:45 Freq: NEEDED Status: Active Protocol: Document 11/16/19 10:00 KS (Rec: 11/16/19 11:22 KS [email or web address]) PT Summary Assessment and Plan Potential Rehabilitation Potential Good Summary Impairments Strength,Balance,Sensation, Tone,Cognition,Bed Mobility, Transfers,Gait,Activity Tolerance Progress Towards Goals Slow Progress due to Activity Tolerance Assessment Summary Pt SBA to CGA w/ cues for bed mobility, Min A and cues for sit<>stand, stand step pivot transfer, and stand<>sit for slow descent. Pt will require SNF to improve functional independence and mobility. Goals Bed Mobility Goal Independent Transfer Goal Standby Assistance Gait Goal Standby Assistance,Front Wheel Walker,Four Wheel Walker Gait Distance 25 Days to Meet Goals 5 Frequency of Treatment Frequency Of Treatment Once a Day Treatment Plan Physical Therapy Treatment Plan Bed Mobility Training,Transfer Training,Gait Training, Therapeutic Exercise,Balance Retraining,Post Op Education, Discharge Planning,Hot or Cold Pack,Neuromuscular Re-ed Other Recommendations and Next Treatment transfers; ther ex for BLE; Focus gait with chair follow as tolerated Recommendations To Nursing Amount of Assist Needed 2 Person Assist Discharge Recommendations PT Discharge Recommendations SNF Rehab Transportation Needs at Discharge Wheelchair/Cabulance
--- NOTE | 2019-11-16 11:22 | PC.NURSE ---
SNF Transfer: IV's dc'd intact. Tele dc'd. All patient belongings collected and sent with him, including home meds from pharmacy. Transferred into wheelchair, transfer packet given to transport staff. Taken out by SNF transport. Report called to Arcelia at [facility].
[2019-11-17 08:31] LABS: Calcium 8.5 mg/dL (8.6-10.2); Parathyroid Hormone, Intact 149 pg/mL (15-65)
[2019-11-22 09:15] LABS: 1,25-Dihydroxy, Vitamin D-2 <10 pg/mL (.)
== END 2019-11-16 11:24 | DRG 689 ==
LOC: ED 19:26 → AC 20:30
PROVIDERS: Emergency Medicine; Admitting Provider Student in an Organized Health Care Education/Training Program; Emergency Provider Emergency Medicine; PCP Family Medicine; Referring Provider Emergency Medicine; Visit Provider Student in an Organized Health Care Education/Training Program
DX: N39.0 Urinary tract infection, site not specified (principal); I50.33 Acute on chronic diastolic (congestive) heart failure; L03.116 Cellulitis of left lower limb; L97.929 Non-pressure chronic ulcer of unspecified part of left lower leg with unspecified severity; L97.919 Non-pressure chronic ulcer of unspecified part of right lower leg with unspecified severity; I13.0 Hypertensive heart and chronic kidney disease with heart failure and stage 1 through stage 4 chronic kidney disease, or unspecified chronic kidney disease; N18.4 Chronic kidney disease, stage 4 (severe); L03.115 Cellulitis of right lower limb; Z16.12 Extended spectrum beta lactamase (ESBL) resistance; E11.40 Type 2 diabetes mellitus with diabetic neuropathy, unspecified; E11.22 Type 2 diabetes mellitus with diabetic chronic kidney disease; E83.39 Other disorders of phosphorus metabolism; B96.29 Other Escherichia coli [E. coli] as the cause of diseases classified elsewhere; R33.9 Retention of urine, unspecified; R32 Unspecified urinary incontinence; S14.129D Central cord syndrome at unspecified level of cervical spinal cord, subsequent encounter; F32.9 Major depressive disorder, single episode, unspecified; F41.9 Anxiety disorder, unspecified; R53.1 Weakness; R79.1 Abnormal coagulation profile; M10.9 Gout, unspecified; I87.8 Other specified disorders of veins; Z87.891 Personal history of nicotine dependence; Z79.84 Long term (current) use of oral hypoglycemic drugs; W18.11XA Fall from or off toilet without subsequent striking against object, initial encounter
CPT/HCPCS: 36415; 70450; 71045; 80048; 80053; 81003; 81015; 82310; 82652; 82728; 82962; 83605; 83615; 83690; 83735; 83880; 83970; 84100; 84145; 85025; 85379; 85610; 85730; 86140; 87040; 87077; 87086; 87186; 87635; 93005; 93970; 96365; 97162; 97165; 97530; 97535; 99284; J0696; J1650

== ENCOUNTER → 2019-12-02 12:14 | Outpatient (ROUT) | payer MEDICARE, MEDICAID, SELFPAY ==
[2019-01-25 14:14] VITALS: PULSE 56; RESP 16; O2SAT 100
[2019-11-13 22:02] VITALS: BMI 42.2
== END ==
PROVIDERS: PCP Family Medicine; Visit Provider Family Medicine
DX: S81.809A Unspecified open wound, unspecified lower leg, initial encounter (principal)
CPT/HCPCS: 87070; 87075; 87077; 87186; 87205

== ENCOUNTER → 2019-12-09 14:15 | Outpatient (CLI) | payer MEDICARE, MEDICAID, SELFPAY ==
[2019-01-25 14:14] VITALS: PULSE 56; RESP 16; O2SAT 100
[2019-11-13 22:02] VITALS: BMI 42.2
== END ==
PROVIDERS: PCP Family Medicine; Referring Provider Family Medicine; Visit Provider Family Medicine
DX: I87.2 Venous insufficiency (chronic) (peripheral) (principal); L97.821 Non-pressure chronic ulcer of other part of left lower leg limited to breakdown of skin; F10.20 Alcohol dependence, uncomplicated; N18.4 Chronic kidney disease, stage 4 (severe); D63.8 Anemia in other chronic diseases classified elsewhere; B96.5 Pseudomonas (aeruginosa) (mallei) (pseudomallei) as the cause of diseases classified elsewhere
CPT/HCPCS: 29581; 99213; 99214

== ENCOUNTER → 2019-12-16 15:52 | Outpatient (CLI) | payer MEDICARE, MEDICAID, SELFPAY ==
[2019-01-25 14:14] VITALS: PULSE 56; RESP 16; O2SAT 100
[2019-11-13 22:02] VITALS: BMI 42.2
== END ==
PROVIDERS: PCP Family Medicine; Referring Provider Family Medicine; Visit Provider Family Medicine
DX: I87.2 Venous insufficiency (chronic) (peripheral) (principal); L97.821 Non-pressure chronic ulcer of other part of left lower leg limited to breakdown of skin; L97.811 Non-pressure chronic ulcer of other part of right lower leg limited to breakdown of skin; F10.20 Alcohol dependence, uncomplicated; N18.4 Chronic kidney disease, stage 4 (severe); D63.8 Anemia in other chronic diseases classified elsewhere
CPT/HCPCS: 29581; 97597; 99214

== ENCOUNTER → 2019-12-23 15:44 | Outpatient (CLI) | payer MEDICARE, MEDICAID, SELFPAY ==
[2019-01-25 14:14] VITALS: PULSE 56; RESP 16; O2SAT 100
[2019-11-13 22:02] VITALS: BMI 42.2
== END ==
PROVIDERS: PCP Family Medicine; Referring Provider Family Medicine; Visit Provider Family Medicine
DX: I87.2 Venous insufficiency (chronic) (peripheral) (principal); L97.821 Non-pressure chronic ulcer of other part of left lower leg limited to breakdown of skin; F10.20 Alcohol dependence, uncomplicated; N18.4 Chronic kidney disease, stage 4 (severe); D63.8 Anemia in other chronic diseases classified elsewhere; L08.9 Local infection of the skin and subcutaneous tissue, unspecified
CPT/HCPCS: 87070; 87075; 87077; 87147; 87186; 87205; 97597; 99214

== ENCOUNTER → 2019-12-30 14:51 | Outpatient (CLI) | payer MEDICARE, MEDICAID, SELFPAY ==
[2019-01-25 14:14] VITALS: PULSE 56; RESP 16; O2SAT 100
[2019-11-13 22:02] VITALS: BMI 42.2
== END ==
PROVIDERS: PCP Family Medicine; Referring Provider Family Medicine; Visit Provider Family Medicine
DX: I87.2 Venous insufficiency (chronic) (peripheral) (principal); L97.821 Non-pressure chronic ulcer of other part of left lower leg limited to breakdown of skin; L97.811 Non-pressure chronic ulcer of other part of right lower leg limited to breakdown of skin; F10.20 Alcohol dependence, uncomplicated; N18.4 Chronic kidney disease, stage 4 (severe); D63.8 Anemia in other chronic diseases classified elsewhere; L08.9 Local infection of the skin and subcutaneous tissue, unspecified; B95.62 Methicillin resistant Staphylococcus aureus infection as the cause of diseases classified elsewhere; Z79.2 Long term (current) use of antibiotics
CPT/HCPCS: 97597; 99214

== ENCOUNTER → 2020-01-01 | Outpatient (CLI) | payer MEDICARE, MEDICAID, SELFPAY ==
[2019-01-25 14:14] VITALS: PULSE 56; RESP 16; O2SAT 100
[2019-11-13 22:02] VITALS: BMI 42.2
[2020-01-01 11:40] VITALS: BP 129/78; PULSE 83; RESP 18; TEMP 36.6; O2SAT 100
[2020-01-01] MEDS: DARBEPOETIN 200 MCG/0.4 ML SYRINGE SUBCUT (12:24)
== END ==
LOC: ONC 11:30
PROVIDERS: PCP Family Medicine; Referring Provider Family Medicine; Visit Provider Internal Medicine
DX: E11.22 Type 2 diabetes mellitus with diabetic chronic kidney disease (principal); I12.9 Hypertensive chronic kidney disease with stage 1 through stage 4 chronic kidney disease, or unspecified chronic kidney disease; N18.9 Chronic kidney disease, unspecified; D63.1 Anemia in chronic kidney disease; Z79.84 Long term (current) use of oral hypoglycemic drugs
CPT/HCPCS: 36415; 96372; J0881

== ENCOUNTER → 2020-01-06 14:32 | Outpatient (CLI) | payer MEDICARE, MEDICAID, SELFPAY ==
[2019-01-25 14:14] VITALS: PULSE 56; RESP 16; O2SAT 100
[2019-11-13 22:02] VITALS: BMI 42.2
== END ==
PROVIDERS: PCP Student in an Organized Health Care Education/Training Program; Referring Provider Student in an Organized Health Care Education/Training Program; Visit Provider Family Medicine
DX: I87.2 Venous insufficiency (chronic) (peripheral) (principal); L97.821 Non-pressure chronic ulcer of other part of left lower leg limited to breakdown of skin; L97.811 Non-pressure chronic ulcer of other part of right lower leg limited to breakdown of skin
CPT/HCPCS: 29581

== ENCOUNTER → 2020-01-09 12:57 | Outpatient (CLI) | payer MEDICARE, MEDICAID, SELFPAY ==
[2019-01-25 14:14] VITALS: PULSE 56; RESP 16; O2SAT 100
[2019-11-13 22:02] VITALS: BMI 42.2
--- NOTE | 2020-01-09 12:59 | DI.RAD.S_ITS ---
PROCEDURE: XR SHOULDER RT MIN 2V INDICATIONS: Shoulder pain TECHNIQUE: 3 views of the shoulder were acquired. COMPARISON: [facility], CR, XR CHEST 2V, 03/10/2019, 17:55. [facility], CR, XR SHOULDER LT MIN 2V, 01/09/2020, 13:09. [facility], CR, XR SHOULDER RT MIN 2V, 09/24/2018, 14:45. [facility], CR, XR SHOULDER RT MIN 2V, 12/19/2018, 15:43. FINDINGS: Bones: Suspect scapular fracture involving the base of the acromion. No suspicious bony lesions. Severe glenohumeral joint and acromioclavicular joint degeneration. Superior migration of the humeral head. Visualized ribs appear intact. Soft tissues: No suspicious soft tissue calcifications. IMPRESSION: 1. Scapular fracture is suspected. CT or MRI is suggested for further evaluation. 2. Severe degenerative joint disease. 3. Superior migration of humeral head is highly suggestive of rotator cuff tendinopathy. Dictated by: Carol Chun M.D. on 01/09/2020 at 16:20 Approved by: Carol Chun M.D. on 01/09/2020 at 16:24
--- NOTE | 2020-01-09 12:59 | DI.RAD.S_ITS ---
PROCEDURE: XR SHOULDER LT MIN 2V INDICATIONS: Shoulder pain TECHNIQUE: 3 views of the shoulder were acquired. COMPARISON: [facility], CR, XR CHEST 1V, 11/13/2019, 17:53. [facility], CR, XR SHOULDER LT MIN 2V, 09/24/2018, 14:45. [facility], CR, XR SHOULDER LT MIN 2V, 12/19/2018, 15:43. FINDINGS: Bones: No fractures or dislocations. No suspicious bony lesions. Visualized ribs appear intact. There is moderate degenerative joint disease at the acromioclavicular and glenohumeral joints. Superior migration of humeral head. Soft tissues: No suspicious soft tissue calcifications. Interstitial infiltrates in visualized left lung. IMPRESSION: 1. Moderate degenerative joint disease. 2. Superior migration of humeral head consistent with rotator cuff tendinopathy. 3. Interstitial infiltrate in visualized left lung. Chest x-ray is suggested for further evaluation if clinically indicated. Dictated by: Carol Chun M.D. on 01/09/2020 at 16:18 Approved by: Carol Chun M.D. on 01/09/2020 at 16:20
[2020-01-09 13:29] LABS: Add Manual Diff / Slide Review NO; Basophils Absolute Auto 0 /uL (0-100); Basophils Percent Auto 0.4 % (0-2); Eosinophils Absolute Auto 200 /uL (0-450); Eosinophils Percent Auto 2.7 % (2-4); Hematocrit 27.3 % (41-53); Hemoglobin 8.6 g/dL (13.5-17.5); Lymphocytes Absolute Auto 700 /uL (1100-4500); Lymphocytes Percent Auto 11.2 % (25-40); Mean Corpuscular HGB Conc 31.5 % (30-36); Mean Corpuscular Hemoglobin 31.1 PG (26-34); Mean Corpuscular Volume 98.8 fL (80-100); Monocytes Absolute Auto 700 /uL (0-900); Monocytes Percent Auto 12.2 % (3-14); Neutrophils Absolute Auto 4400 /uL (1500-7000); Neutrophils Percent Auto 73.5 % (50-75); Platelet Count 196 X10^3/uL (150-400); Red Blood Cell Count 2.76 X10^6/uL (4.5-5.9); Red Cell Distribution Width 19.3 % (11.6-14.8)
== END ==
PROVIDERS: PCP Student in an Organized Health Care Education/Training Program; Referring Provider Internal Medicine; Visit Provider Student in an Organized Health Care Education/Training Program
DX: M25.512 Pain in left shoulder (principal); D63.1 Anemia in chronic kidney disease; N18.9 Chronic kidney disease, unspecified; M25.511 Pain in right shoulder
CPT/HCPCS: 36415; 73030; 85025

== ENCOUNTER → 2020-01-13 14:26 | Outpatient (CLI) | payer MEDICARE, MEDICAID, SELFPAY ==
[2019-01-25 14:14] VITALS: PULSE 56; RESP 16; O2SAT 100
[2019-11-13 22:02] VITALS: BMI 42.2
== END ==
PROVIDERS: PCP Student in an Organized Health Care Education/Training Program; Referring Provider Student in an Organized Health Care Education/Training Program; Visit Provider Family Medicine
DX: I87.2 Venous insufficiency (chronic) (peripheral) (principal); L97.821 Non-pressure chronic ulcer of other part of left lower leg limited to breakdown of skin; L97.811 Non-pressure chronic ulcer of other part of right lower leg limited to breakdown of skin; F10.20 Alcohol dependence, uncomplicated; N18.4 Chronic kidney disease, stage 4 (severe); D63.8 Anemia in other chronic diseases classified elsewhere
CPT/HCPCS: 11042; 87070; 87075; 87077; 87186; 87205

== ENCOUNTER → 2020-01-15 10:01 | Outpatient (CLI) | payer MEDICARE, MEDICAID, SELFPAY ==
[2019-01-25 14:14] VITALS: PULSE 56; RESP 16; O2SAT 100
[2019-11-13 22:02] VITALS: BMI 42.2
[2020-01-15 10:19] VITALS: BP 131/66; PULSE 67; RESP 20; TEMP 36.4; O2SAT 98
[2020-01-15] MEDS: DARBEPOETIN 200 MCG/0.4 ML SYRINGE SUBCUT (11:02)
== END ==
PROVIDERS: PCP Student in an Organized Health Care Education/Training Program; Referring Provider Internal Medicine; Visit Provider Internal Medicine
DX: E11.22 Type 2 diabetes mellitus with diabetic chronic kidney disease (principal); I12.9 Hypertensive chronic kidney disease with stage 1 through stage 4 chronic kidney disease, or unspecified chronic kidney disease; N18.4 Chronic kidney disease, stage 4 (severe); D63.1 Anemia in chronic kidney disease; L03.90 Cellulitis, unspecified; Z79.84 Long term (current) use of oral hypoglycemic drugs
CPT/HCPCS: 36415; 80053; 82607; 82728; 82746; 83540; 83550; 96372; 99213; J0881

== ENCOUNTER → 2020-01-22 13:05 | Outpatient (CLI) | payer MEDICARE, MEDICAID, SELFPAY ==
[2019-01-25 14:14] VITALS: PULSE 56; RESP 16; O2SAT 100
[2019-11-13 22:02] VITALS: BMI 42.2
--- NOTE | 2020-01-22 13:07 | DI.CT.S_ITS ---
PROCEDURE: CT UE RT WO CON INDICATIONS: Suspicion for RIGHT scapular fracture on XR TECHNIQUE: Noncontrast 1-1.5 mm thick sections acquired from the acromioclavicular joint to the inferior scapula, with coronal and sagittal reformatting. COMPARISON: [facility], CR, XR SHOULDER RT MIN 2V, 01/09/2020, 13:09. FINDINGS: Image quality: Excellent. Bones: There is a chronic nonunited fracture through the spine of the right scapula. There is mild posterior displacement of the distal component which includes the acromion. No acute fractures identified. There is fragmentation along the lateral aspect of the acromion with corticated margins compatible with chronic changes. There is mild degeneration along the acromioclavicular joint. Soft tissue thickening with associated bony erosions are demonstrated along the acromion and distal clavicle along the acromioclavicular joint. There is moderate glenohumeral joint degeneration. The humeral head demonstrates superior migration relative to the glenoid with eburnation along the inferior aspect of the acromion. There is severe narrowing of the subacromial space. Soft tissues: There is a small glenohumeral joint effusion. There is full-thickness tearing of the supraspinatus likely involving the majority of the tendon. There is also tearing of the distal subscapularis and infraspinatus which are not well evaluated on CT. There is severe fatty atrophy of the supraspinatus, infraspinatus, and subscapularis muscles as well as moderate to severe fatty atrophy of the teres minor muscle. The teres minor tendon appears grossly intact. IMPRESSION: 1. 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 2. Mild acromioclavicular joint degeneration with periarticular bony erosions and soft tissue thickening suggestive of and inflammatory arthropathy. 3. Moderate glenohumeral joint degeneration with superior migration of the humeral head and eburnation along the inferior acromion. 4. Rotator cuff tearing including full-thickness tearing involving the majority of the supraspinatus. Rotator cuff is incompletely evaluated on CT but there is severe fatty atrophy of the rotator cuff musculature. 5. Small glenohumeral joint effusion. Dictated by: Edgard Keller M.D. on 01/22/2020 at 14:23 Approved by: Edgard Keller M.D. on 01/22/2020 at 14:37
== END ==
PROVIDERS: PCP Student in an Organized Health Care Education/Training Program; Referring Provider Student in an Organized Health Care Education/Training Program; Visit Provider Student in an Organized Health Care Education/Training Program
DX: S42.19 Fracture of other part of scapula (principal); M19.011 Primary osteoarthritis, right shoulder; S46.011D Strain of muscle(s) and tendon(s) of the rotator cuff of right shoulder, subsequent encounter; M25.411 Effusion, right shoulder
CPT/HCPCS: 73200

== ENCOUNTER 2020-01-26 09:16 | Emergency (ER) | payer MEDICARE, MEDICAID, SELFPAY ==
[2020-01-24 15:17] VITALS: PULSE 56; RESP 16; O2SAT 100; BMI 42.2
[2020-01-26 09:19] VITALS: BP 168/78; PULSE 84; RESP 18; TEMP 36.6; O2SAT 97; BMI 40.1
--- NOTE | 2020-01-26 09:43 | ED.ABDPAIN ---
HPI - Abdominal Pain General Chief Complaint: Abdominal Pain Stated Complaint: HX Bowel obstuction Time Seen by Provider: 01/26/20 09:43 Source: patient and EMS Mode of arrival: EMS Limitations: no limitations History of Present Illness HPI narrative: This is a 69-year-old male comes to the emergency department with concern for constipation. Patient states that he has not had a bowel movement in the last 10 days and he has not had any stool coming out for 7 days. He states it feels like there is stool right at the rectal vault. He has not had any fevers, no nausea or vomiting. He does have lower abdominal discomfort. He has also noted a feels like he is having some difficulty with urination he feels that is likely related to the constipation. Patient has been passing gas regularly. He states he does take narcotics and he suspects this is causing his constipation. He states he also took a dose of Imodium last week and that likely contributed as well. Does have a history of prior cervical fracture he does use a wheelchair although he does have use of his lower extremities. He also has a history of a colectomy with colostomy which was reversed approximately 20 years ago for bowel perforation. Patient also takes medications for diabetes with neuropathy, hypertension, chronic kidney disease stage 4 as well as obesity and osteoarthritis. He denies any other abdominal surgeries. Related Data Home Medications Medication Instructions Recorded Confirmed citalopram 20 mg PO DAILY 12/25/17 01/24/20 glimepiride 1 mg PO DAILY 03/22/18 01/24/20 doxazosin 4 mg PO BEDTIME 06/07/18 01/24/20 duloxetine 60 mg PO BID 09/28/18 01/24/20 polyethylene glycol 3350 17 g PO DAILY PRN 09/28/18 01/24/20 silver sulfadiazine [SSD] 1 applic TOPICAL TID 11/12/18 01/24/20 pantoprazole 40 mg PO DAILY 08/08/19 01/24/20 allopurinol [Zyloprim] 200 mg PO DAILY 09/12/19 01/24/20 melatonin 6 mg PO BEDTIME 09/12/19 01/24/20 Previous Rx's Medication Instructions Recorded lidocaine 1 patch TOP DAILY #30 each 12/19/18 acetaminophen 650 mg PO Q6HR PRN #30 tab 09/13/19 lisinopril 5 mg PO DAILY #30 tab 09/13/19 lorazepam 0.5 mg PO Q4HR PRN #90 tab 09/13/19 magnesium hydroxide [Milk of 30 ml PO DAILY PRN #270 ml 09/13/19 Magnesia] multivitamin [Tab-A-Isidro] 1 tab PO DAILY #30 tab 09/13/19 torsemide 40 mg PO DAILY #30 tab 11/16/19 gabapentin 300 mg capsule 300 mg PO BEDTIME #90 cap 01/01/20 hydrocodone 7.5 mg-acetaminophen 1 tab PO BID PRN #60 tab 01/01/20 325 mg tablet levofloxacin 750 mg tablet 750 mg PO Q OTHER DAY 8 Days #4 tab 01/24/20 docusate sodium [Colace] 100 mg PO DAILY #10 cap 01/26/20 Allergies Allergy/AdvReac Type Severity Reaction Status Date / Time latex Allergy Mild IRRITATION Verified 01/24/20 15:55 carisoprodol [From Soma] Allergy Verified 01/24/20 15:55 hydromorphone Allergy Verified 01/24/20 15:55 Sulfa (Sulfonamide AdvReac Mild N&V 1HOUR Verified 01/24/20 15:55 Antibiotics) AFTER RX, THINKS IT IS RELATED Review of Systems Review of Systems ROS Unobtainable: All systems reviewed & are unremarkable except as noted in HPI and below Patient History Medical History Cellulitis of left leg Chronic kidney disease, stage 4 (severe) Depression Duodenal ulcer History of cervical fracture Hyperparathyroidism Surgical History H/O cervical spine surgery History of colectomy History of fusion of cervical spine Social History household members: none Smoking Status: Former smoker alcohol intake: current Smoking Status: Former smoker alcohol intake frequency: 0-2 drinks per day Alcohol type: beer Substance Use Type: does not use Exam Narrative Exam Narrative: GENERAL: Alert and oriented x three, obese male in moderate distress. HEENT: Head normocephalic, atraumatic, EOMI, pupils reactive, face symmetric, moist mucous membranes NECK: Supple, full range of motion CARDIOVASCULAR: Regular rate and rhythm without murmurs, rubs or gallops. RESPIRATORY: Breath sounds equal bilaterally, no wheezes rales or rhonchi. ABDOMEN: Soft, mildly tender on bilateral lower abdomen. Mildly distended. Normoactive bowel sounds all 4 quadrants. No guarding or rebound, rigidity, no mass : No CVA tenderness EXTREMITIES: Normal range of motion, no clubbing or edema. Neurovascularly intact NEUROLOGICAL: Cranial nerves II through XII grossly intact. Moving all extremities SKIN: Warm, dry, no petechiae. Patient does have excoriation and skin breakdown through the initial layers on his bilateral buttocks and sacral region. And there is erythema of the scrotum as well as gluteal cleft. There is no subcutaneous tissue exposed. There is no erythema extending from the area or foul odor or discharge noted. Initial Vital Signs Initial Vital Signs: Vital Signs Temperature 97.8 F 01/26/20 09:19 Pulse Rate 84 01/26/20 09:19 Respiratory Rate 18 01/26/20 09:19 Blood Pressure 168/78 H 01/26/20 09:19 Pulse Oximetry 97 01/26/20 09:19 Course Course Course Narrative: Discussed with patient he has had a partial bowel obstruction the past bright his imaging, I would like to obtain imaging but patient states he really thinks he is just constipated and feels like he has stool quite close. Plan to do x-ray, he is agreeable to labs in case we were unsuccessful and he would like to try an suppository or enema if possible before any CT imaging. Patient's labs appear stable, he had a bowel movement here in the department that was quite large prior to enema, so further intervention was deferred. It was noted that patient has skin breakdown, he has had these issues in the past and has a appointment tomorrow with wound care. He has barrier ointment at home and was treated here in the department. He states he noticed symptoms in the last week. Orders Ordered: ED Orders 01/26/20 10:22 Complete Blood Count AUTO DIFF Stat Comprehensive Metabolic Panel Stat Lipase Stat Discontinued Medications Sodium Chloride (Normal Saline 0.9%) 500 mls @ 1,000 mls/hr IV BOLUS ONE Stop: 01/26/20 10:24 Mineral Oil (Mineral Oil 1 Each Enema) 1 each SD NOW ONE Stop: 01/26/20 10:01 Last Admin: 01/26/20 10:31 Dose: 1 each Documented by: JUAN Morphine Sulfate (Morphine 4 Mg/Ml Inj) 4 mg IV NOW ONE Stop: 01/26/20 10:02 Last Admin: 01/26/20 10:25 Dose: 4 mg Documented by: JUAN Vital Signs Vital signs: Vital Signs - 8 hr 01/26/20 09:19 Temperature 97.8 F Pulse Rate 84 Respiratory Rate 18 Blood Pressure 168/78 H Pulse Oximetry 97 MDM - Abdominal Pain Lab Data Attestation: I reviewed the patient's lab results. Lab results narrative: Patient's anemia appears improved to prior, hyponatremia is slightly worse at 1:32 a.m., his renal function appears improved but in the baseline range and glucose is 154 Result diagrams: 01/26/20 10:22 01/26/20 10:22 Labs: Lab Results 01/26/20 01/26/20 Range/Units 10:22 10:22 WBC 10.9 (4.5-11.0) X10^3/uL RBC 3.43 L (4.5-5.9) X10^6/uL Hgb 10.9 L (13.5-17.5) g/dL Hct 33.5 L (41-53) % MCV 97.6 (80-100) fL MCH 31.8 (26-34) PG MCHC 32.6 (30-36) % RDW 17.8 H (11.6-14.8) % Plt Count 293 (150-400) X10^3/uL Neut % (Auto) 82.4 H (50-75) % Lymph % (Auto) 6.3 L (25-40) % [place] % (Auto) 9.1 (3-14) % Eos % (Auto) 1.8 L (2-4) % Baso % (Auto) 0.4 (0-2) % Neut # (Auto) 9000 H (1288-2895) /uL Lymph # (Auto) 700 L (2592-2622) /uL [place] # (Auto) 1000 H (0-900) /uL Eos # (Auto) 200 (0-450) /uL Baso # (Auto) 0 (0-100) /uL Sodium 132 L (137-145) mmol/L Potassium 4.7 (3.4-5.1) mmol/L Chloride 97 L (98-107) mmol/L Carbon Dioxide 26 (22-32) mmol/L BUN 40 H (9-20) mg/dL Creatinine 2.31 H (0.66-1.25) mg/dL Estimated GFR 28.3 L (>60) mL/min BUN/Creatinine Ratio 17.3 (6-22) Glucose 154 H (80-110) mg/dL Calcium 8.7 (8.4-10.2) mg/dL Total Bilirubin 0.8 (0.2-1.3) mg/dL AST 21 (17-59) IU/L ALT 9 (<50) IU/L Alkaline Phosphatase 129 H (38-126) U/L Total Protein 7.7 (6.3-8.2) g/dL Albumin 4.2 (3.5-5.0) g/dL Globulin 3.5 (1.7-4.1) g/dL Albumin/Globulin Ratio 1.2 (1.0-2.8) Lipase 29 (23-300) U/L Imaging Data Abdominal x-ray: Radiologist's Impression: [address] [id number] ReportSigned Patient: Cristóbal Tubbs WMR#: [id number]: 2Acct:[id number]/Sex: 69 / MDate of Service: 01/26/20Loc: EDAccession Number: [id number] Procedure: XR abdomen min 2V Ordering Provider: Raquel Charles D.O. PROCEDURE: XR ABDOMEN MIN 2V INDICATIONS: no BM x 10 days, + flatus TECHNIQUE: 2 views of the abdomen were acquired. COMPARISON: [facility], CR, ABDOMEN ACUTE SERIES, 07/06/2014, 23:23. [facility], CT, CT ABDOMEN PELVIS W CON, 03/10/2019, 18:48. FINDINGS: Surgical changes and devices: There lower thoracic spine postoperative changes. Bowel: No pneumoperitoneum. The bowel gas pattern is normal. A moderate amount of stool is seen within the colon. Soft tissues: No masses; visualized solid organ contours appear normal in size. No suspicious abdominal calcifications. Bones: No suspicious bony abnormalities. IMPRESSION: There is a moderate amount of stool seen within the colon. Please correlate with an underlying history of constipation. Lower thoracic spine postoperative change Dictated by: Matthew Ware M.D. on 01/26/2020 at 9:22 Approved by: Matthew Ware M.D. on 01/26/2020 at 9:23 Discharge Plan Departure Patient Disposition: Home Clinical Impression: Abdominal pain, Constipation Instructions: DI for Constipation Activity Restrictions/Additional Instructions: Follow-up at your appointment tomorrow with wound care. Continue using barrier cream after washing yourself an each bowel movement. I would recommend taking a stool softener regularly when you are taking narcotic. You may take Colace 1-2 tablets daily. Prescription to [facility]. Return to the ER for fevers, new or worsening abdominal pain, persistent vomiting, if you are not having any bowel movements, not passing gas, for having difficulty with urination or other new or concerning symptoms. Prescriptions: New docusate sodium [Colace] 100 mg capsule 100 mg PO DAILY Qty: 10 RF: 0 No Action levofloxacin 750 mg tablet 750 mg PO Q OTHER DAY 8 Days Qty: 4 RF: 0 gabapentin 300 mg capsule 300 mg PO BEDTIME Qty: 90 RF: 0 hydrocodone-acetaminophen 7.5-325 mg tablet 1 tab PO BID PRN (Reason: pain) Qty: 60 RF: 0 doxazosin 4 mg Tablet 4 mg PO BEDTIME RF: 0 duloxetine 60 mg capsule,delayed release(DR/EC) 60 mg PO BID RF: 0 polyethylene glycol 3350 17 gram/dose Powder 17 g PO DAILY PRN (Reason: Constipation) RF: 0 silver sulfadiazine [SSD] 1 % cream 1 applic TOPICAL TID RF: 0 torsemide 10 mg Tablet 40 mg PO DAILY Qty: 30 RF: 0 citalopram 20 MG tablet 20 mg PO DAILY RF: 0 glimepiride 1 mg tablet 1 mg PO DAILY RF: 0 lidocaine 5 % adhesive patch,medicated 1 patch TOP DAILY Qty: 30 RF: 0 pantoprazole 40 mg Tablet,Delayed Release (Dr/Ec) 40 mg PO DAILY RF: 0 allopurinol [Zyloprim] 100 mg tablet 200 mg PO DAILY RF: 0 melatonin 3 mg Tablet 6 mg PO BEDTIME RF: 0 acetaminophen 325 mg Tablet 650 mg PO Q6HR PRN (Reason: Fever/Mild Pain (1-3)) Qty: 30 RF: 0 lisinopril 5 mg Tablet 5 mg PO DAILY Qty: 30 RF: 0 multivitamin [Tab-A-Isidro] Tablet 1 tab PO DAILY Qty: 30 RF: 0 magnesium hydroxide [Milk of Magnesia] 400 mg/5 mL Suspension 30 ml PO DAILY PRN (Reason: Constipation) Qty: 270 RF: 0 lorazepam 0.5 mg Tablet 0.5 mg PO Q4HR PRN (Reason: Anxiety) Qty: 90 RF: 0 Referrals: Mariano Keller MD [Primary Care Provider] -
--- NOTE | 2020-01-26 10:00 | DI.RAD.S_ITS ---
PROCEDURE: XR ABDOMEN MIN 2V INDICATIONS: no BM x 10 days, + flatus TECHNIQUE: 2 views of the abdomen were acquired. COMPARISON: [facility], CR, ABDOMEN ACUTE SERIES, 07/06/2014, 23:23. [facility], CT, CT ABDOMEN PELVIS W CON, 03/10/2019, 18:48. FINDINGS: Surgical changes and devices: There lower thoracic spine postoperative changes. Bowel: No pneumoperitoneum. The bowel gas pattern is normal. A moderate amount of stool is seen within the colon. Soft tissues: No masses; visualized solid organ contours appear normal in size. No suspicious abdominal calcifications. Bones: No suspicious bony abnormalities. IMPRESSION: There is a moderate amount of stool seen within the colon. Please correlate with an underlying history of constipation. Lower thoracic spine postoperative change Dictated by: Matthew Ware M.D. on 01/26/2020 at 9:22 Approved by: Matthew Ware M.D. on 01/26/2020 at 9:23
[2020-01-26] MEDS: MORPHINE 4 MG/ML INJ IV (10:25)
[2020-01-26 10:27] VITALS: PULSE 87; O2SAT 100
[2020-01-26 10:30] VITALS: PULSE 89; O2SAT 98
[2020-01-26 10:31] LABS: Add Manual Diff / Slide Review NO; Basophils Absolute Auto 0 /uL (0-100); Basophils Percent Auto 0.4 % (0-2); Eosinophils Absolute Auto 200 /uL (0-450); Eosinophils Percent Auto 1.8 % (2-4); Hematocrit 33.5 % (41-53); Hemoglobin 10.9 g/dL (13.5-17.5); Lymphocytes Absolute Auto 700 /uL (1100-4500); Lymphocytes Percent Auto 6.3 % (25-40); Mean Corpuscular HGB Conc 32.6 % (30-36); Mean Corpuscular Hemoglobin 31.8 PG (26-34); Mean Corpuscular Volume 97.6 fL (80-100); Monocytes Absolute Auto 1000 /uL (0-900); Monocytes Percent Auto 9.1 % (3-14); Neutrophils Absolute Auto 9000 /uL (1500-7000); Neutrophils Percent Auto 82.4 % (50-75); Platelet Count 293 X10^3/uL (150-400); Red Blood Cell Count 3.43 X10^6/uL (4.5-5.9); Red Cell Distribution Width 17.8 % (11.6-14.8); White Blood Cell Count 10.9 X10^3/uL (4.5-11.0)
[2020-01-26] MEDS: MINERAL OIL 1 EACH ENEMA PR (10:31)
[2020-01-26 10:48] LABS: Alanine Aminotransferase 9 IU/L (<50); Albumin 4.2 g/dL (3.5-5.0); Albumin Globulin Ratio 1.2 (1.0-2.8); Alkaline Phosphatase 129 U/L (38-126); Aspartate Aminotransferase 21 IU/L (17-59); BUN Creatinine Ratio 17.3 (6-22); Bilirubin Total 0.8 mg/dL (0.2-1.3); Blood Urea Nitrogen 40 mg/dL (9-20); Calcium 8.7 mg/dL (8.4-10.2); Carbon Dioxide 26 mmol/L (22-32); Chloride 97 mmol/L (98-107); Estimated Glomerular Filt Rate 28.3 mL/min (>60); Globulin 3.5 g/dL (1.7-4.1); Glucose 154 mg/dL (80-110); HEMOLYSIS < 15 (0-50); Lipase 29 U/L (23-300); Potassium 4.7 mmol/L (3.4-5.1); Sodium 132 mmol/L (137-145); Total Protein 7.7 g/dL (6.3-8.2)
--- NOTE | 2020-01-26 10:52 | PC.NURSE ---
Pt rolled for enema, has produced large hard stool. Dr Charles informed, enema cancelled. Skin breakdown present bilateral perianal area, Dr Charles informed, to room, barrier cream ordered.
[2020-01-26 11:00] VITALS: PULSE 89
== END 2020-01-26 11:38 | disposition home or self-care (01) ==
PROVIDERS: Emergency Provider Emergency Medicine; PCP Student in an Organized Health Care Education/Training Program
DX: R10.9 Unspecified abdominal pain (principal); K59.00 Constipation, unspecified; E66.9 Obesity, unspecified
CPT/HCPCS: 36415; 74019; 80053; 83690; 85025; 96374; 99283; 99284; J2270

== ENCOUNTER → 2020-01-27 14:27 | Outpatient (CLI) | payer MEDICARE, MEDICAID, SELFPAY ==
[2020-01-24 15:17] VITALS: PULSE 56; RESP 16; O2SAT 100; BMI 42.2
== END ==
PROVIDERS: PCP Student in an Organized Health Care Education/Training Program; Referring Provider Student in an Organized Health Care Education/Training Program; Visit Provider Family Medicine
DX: I87.2 Venous insufficiency (chronic) (peripheral) (principal); L97.821 Non-pressure chronic ulcer of other part of left lower leg limited to breakdown of skin; L97.811 Non-pressure chronic ulcer of other part of right lower leg limited to breakdown of skin
CPT/HCPCS: 29581

== ENCOUNTER → 2020-01-28 14:04 | Outpatient (CLI) | payer MEDICARE, MEDICAID, SELFPAY ==
[2019-01-25 14:14] VITALS: PULSE 56; RESP 16; O2SAT 100
[2019-11-13 22:02] VITALS: BMI 42.2
[2020-01-24 15:17] VITALS: PULSE 56; RESP 16; O2SAT 100; BMI 42.2
--- NOTE | 2020-01-28 14:09 | DI.US.S_ITS ---
PROCEDURE: US RENAL COMPLETE INDICATIONS: CHRONIC KIDNEY DISEASE, STAGE 4(SEVERE) TECHNIQUE: Real-time scanning was performed of the kidneys and bladder, with image documentation. COMPARISON: [facility], CT, CT ABDOMEN PELVIS W CON, 03/10/2019, 18:48. FINDINGS: Kidneys: Kidneys are normal in size. Right kidney measures 13.2 cm long; left kidney measures 13 cm long. Right renal cortical thickness is 1.4 cm; left renal cortical thickness is 1.8 cm. Renal cortical echotexture is normal. No hydronephrosis or nephrolithiasis. No suspicious solid mass lesions. Bladder: Pre-void bladder volume is 459 mL. Post-void residual is 184 mL. Pre-void images demonstrate no intraluminal masses or stones. On pre-void images, bilateral ureteral jets are noted with color Doppler interrogation. (Of note, ureteral jets may not be detectable in up to 25% of cases due to insufficient differences in specific gravity between ureteral and bladder urine). Miscellaneous: No free pelvic fluid. IMPRESSION: 1. Grossly normal appearance of the kidneys bilaterally 2. 184 cc postvoid residual. Dictated by: Jose Miguel Song [facility] Interpreted: Carol Chun MD on 01/28/2020 at 15:02 Approved by: Carol Chun M.D. on 01/28/2020 at 18:49
== END ==
PROVIDERS: PCP Student in an Organized Health Care Education/Training Program; Referring Provider Internal Medicine Nephrology; Visit Provider Internal Medicine Nephrology
DX: N18.4 Chronic kidney disease, stage 4 (severe) (principal)
CPT/HCPCS: 76770

== ENCOUNTER → 2020-02-03 14:52 | Outpatient (CLI) | payer MEDICARE, MEDICAID, SELFPAY ==
[2020-01-24 15:17] VITALS: PULSE 56; RESP 16; O2SAT 100; BMI 42.2
== END ==
PROVIDERS: PCP Student in an Organized Health Care Education/Training Program; Referring Provider Student in an Organized Health Care Education/Training Program; Visit Provider Family Medicine
DX: I87.2 Venous insufficiency (chronic) (peripheral) (principal); L97.821 Non-pressure chronic ulcer of other part of left lower leg limited to breakdown of skin; L97.811 Non-pressure chronic ulcer of other part of right lower leg limited to breakdown of skin; L08.9 Local infection of the skin and subcutaneous tissue, unspecified; F10.20 Alcohol dependence, uncomplicated
CPT/HCPCS: 87070; 87077; 87186; 87205; 97597; 99214

== ENCOUNTER → 2020-02-10 16:20 | Outpatient (CLI) | payer MEDICARE, MEDICAID, SELFPAY ==
[2020-01-24 15:17] VITALS: PULSE 56; RESP 16; O2SAT 100; BMI 42.2
== END ==
PROVIDERS: PCP Student in an Organized Health Care Education/Training Program; Referring Provider Student in an Organized Health Care Education/Training Program; Visit Provider Family Medicine
DX: I87.2 Venous insufficiency (chronic) (peripheral) (principal); L97.821 Non-pressure chronic ulcer of other part of left lower leg limited to breakdown of skin; L97.811 Non-pressure chronic ulcer of other part of right lower leg limited to breakdown of skin; F10.20 Alcohol dependence, uncomplicated; N18.4 Chronic kidney disease, stage 4 (severe); D63.8 Anemia in other chronic diseases classified elsewhere; L08.9 Local infection of the skin and subcutaneous tissue, unspecified; B96.4 Proteus (mirabilis) (morganii) as the cause of diseases classified elsewhere; Z79.2 Long term (current) use of antibiotics
CPT/HCPCS: 97597; 99213

== ENCOUNTER → 2020-02-13 11:39 | Outpatient (CLI) | payer MEDICARE, MEDICAID, SELFPAY ==
[2019-01-25 14:14] VITALS: PULSE 56; RESP 16; O2SAT 100
[2019-11-13 22:02] VITALS: BMI 42.2
[2020-01-24 15:17] VITALS: PULSE 56; RESP 16; O2SAT 100; BMI 42.2
[2020-02-13 11:56] VITALS: BP 141/70; PULSE 74; RESP 16; TEMP 36.4; O2SAT 96
[2020-02-13 12:20] LABS: Add Manual Diff / Slide Review NO; Basophils Absolute Auto 0 /uL (0-100); Basophils Percent Auto 0.5 % (0-2); Eosinophils Absolute Auto 400 /uL (0-450); Hematocrit 29.3 % (41-53); Hemoglobin 9.5 g/dL (13.5-17.5); Lymphocytes Absolute Auto 500 /uL (1100-4500); Lymphocytes Percent Auto 7.4 % (25-40); Mean Corpuscular HGB Conc 32.6 % (30-36); Mean Corpuscular Hemoglobin 31.3 PG (26-34); Monocytes Absolute Auto 700 /uL (0-900); Monocytes Percent Auto 9.4 % (3-14); Neutrophils Absolute Auto 5700 /uL (1500-7000); Neutrophils Percent Auto 77.7 % (50-75); Platelet Count 218 X10^3/uL (150-400); Red Blood Cell Count 3.05 X10^6/uL (4.5-5.9); Red Cell Distribution Width 15.2 % (11.6-14.8); White Blood Cell Count 7.3 X10^3/uL (4.5-11.0)
[2020-02-13] MEDS: DARBEPOETIN 200 MCG/0.4 ML SYRINGE SUBCUT (12:48)
== END ==
PROVIDERS: PCP Student in an Organized Health Care Education/Training Program; Referring Provider Internal Medicine; Visit Provider Internal Medicine
DX: N18.9 Chronic kidney disease, unspecified (principal); D63.1 Anemia in chronic kidney disease
CPT/HCPCS: 85025; 96372; J0881

== ENCOUNTER → 2020-02-17 15:03 | Outpatient (CLI) | payer MEDICARE, MEDICAID, SELFPAY ==
[2020-01-24 15:17] VITALS: PULSE 56; RESP 16; O2SAT 100; BMI 42.2
== END ==
PROVIDERS: PCP Student in an Organized Health Care Education/Training Program; Referring Provider Student in an Organized Health Care Education/Training Program; Visit Provider Family Medicine
DX: I87.2 Venous insufficiency (chronic) (peripheral) (principal); L97.821 Non-pressure chronic ulcer of other part of left lower leg limited to breakdown of skin; L97.811 Non-pressure chronic ulcer of other part of right lower leg limited to breakdown of skin; F10.20 Alcohol dependence, uncomplicated; N18.4 Chronic kidney disease, stage 4 (severe); D63.8 Anemia in other chronic diseases classified elsewhere
CPT/HCPCS: 97597

== ENCOUNTER → 2020-02-19 15:57 | Outpatient (CLI) | payer MEDICARE, MEDICAID, SELFPAY ==
[2020-01-24 15:17] VITALS: PULSE 56; RESP 16; O2SAT 100; BMI 42.2
--- NOTE | 2020-02-19 15:59 | DI.ECHO.S_ITS ---
[facility] +[facility]+ : : [address] : [place] : : : : [id number] : : : : Phone: [phone]+ Echocardiogram Report + + :Name: NAUN CHASE Study Date: 02/19/2020 Height: 70 in : :[facility] Weight: 275 lb : : Gender: Male BSA: 2.4 m2 : :: 1950 Age: 69 yrs BP: 171/84 mmHg: :Reason For Study: Heart Failure : :Ordering Physician: LAUREN, : :CHRISTOFER Performed By: Cecy Miguel : :Referring: CHRISTOFER AGUILAR : + + Interpretation Summary Patient was scanned in supine position due to recent injury to left shoulder and being unable to put weight on that side. Patient also had sore ribs. Left ventricular systolic function is normal. The ejection fraction is estimated to be 65-70%. LVEF has not significantly changed. There are no obvious focal wall motion abnormalities noted but poor endocardial definition reduces the sensitivity for the detection of such. Diastolic parameters suggest a relaxation abnormality of the left ventricle, consistent with probable normal filling pressures. The right ventricle grossly appears normal in size with probable normal systolic function. Pulmonary artery pressures cannot be estimated because of the lack of a measurable TR jet velocity but the IVC suggests a CVP of around 3 mmHg. The left atrium is severely dilated. Right atrium not well visualized. There is mild mitral stenosis. The mitral valve mean gradient is 5.4 mmHg. There is moderate to severely reduced leaflet mobility. There is moderate to severe aortic stenosis. The peak aortic velocity is 3.9 m/sec. The aortic valve mean gradient is 43 mmHg. The calculated aortic valve area is 0.94 cm2. Compared to the prior echo study, the aortic stenosis is a new finding. There is no other significant valvular heart disease. The aortic root is normal size. No acute findings that would suggest congestive heart failure. Suggest repeating study when patient is able to lay on left shoulder to improve quality of study. Procedure: A two-dimensional transthoracic echocardiogram with color flow and Doppler was performed. The study quality was technically difficult. The study quality was technically limited. Comparison is made with the echocardiogram of 09/19/2014. A contrast injection of Definity was performed to improve assessment of LV function. Contrast was injected into an intravenous site in the left arm. Most of the acoustic windows were suboptimal, but the best imaging was obtained from the subcostal window. The patient was in sinus rhythm with heart rates between 78-90 bpm during the exam. Left Ventricle: The left ventricle is grossly normal size. Left ventricular systolic function is normal. The ejection fraction is estimated to be 65-70%. There are no obvious focal wall motion abnormalities noted but poor endocardial definition reduces the sensitivity for the detection of such. Diastolic parameters suggest a relaxation abnormality of the left ventricle, consistent with probable normal filling pressures. Right Ventricle: The right ventricle grossly appears normal in size with probable normal systolic function. Atria: The left atrium is severely dilated. Right atrium not well visualized. There is no Doppler evidence for an interatrial shunt. Mitral Valve: The mitral valve leaflets are mildly calcified. There is mild mitral annular calcification. There is mild mitral stenosis. The mitral valve mean gradient is 5.4 mmHg. There is trace mitral regurgitation. Aortic Valve: The aortic valve is moderately calcified. There is moderate to severely reduced leaflet mobility. There is moderate to severe aortic stenosis. The peak aortic velocity is 3.9 m/sec. The aortic valve mean gradient is 43 mmHg. The calculated aortic valve area is 0.94 cm2. Compared to the prior echo study, the aortic stenosis is a new finding. No aortic regurgitation is present. Tricuspid Valve: The tricuspid valve is not well visualized. Pulmonary artery pressures cannot be estimated because of the lack of a measurable TR jet velocity but the IVC suggests a CVP of around 3 mmHg. Pulmonic Valve: The pulmonic valve is not well visualized. There is no other significant valvular heart disease. Great Vessels: The aortic root is normal size. The ascending aorta could not be visualized. The IVC is of normal diameter and collapses greater than 50% with a sniff. This suggests a low right atrial pressure of 3 mm Hg. Pericardium/ Pleura There is no pericardial effusion. There is no pleural effusion. MMode/2D Measurements & Calculations LVOT diam: 2.1 cm LA A2 area: 33.2 cm2 LA A4 area: 34.0 cm2 LA length (vol): 6.7 cm LA vol: 143.1 ml LA vol index: 59.9 ml/m2 IVC diam: 1.7 cm RVD1 (basal): 3.9 cm TAPSE: 3.2 cm Doppler Measurements & Calculations Ao V2 max: 388.1 cm/sec LVOT Max Richard: 106.7 cm/sec Ao V2 mean: 304.1 cm/sec LV V1 max P.6 mmHg Ao max P.4 mmHg LV V1 VTI: 23.3 cm Ao mean P.4 mmHg LEE(I,D): 0.91 cm2 Ao V2 VTI: 87.8 cm LEE(V,D): 0.94 cm2 sev ratio: 0.27 LEE indexed to BSA (cm^2/m^2): 0.38 MV E max richard: 106.4 cm/sec PA V2 max: 123.2 cm/sec MV A max richard: 163.1 cm/sec PA V2 mean: 77.7 cm/sec MV E/A: 0.65 PA mean P.1 mmHg Med Peak E' Richard: 10.2 cm/sec PA pr(Accel): 39.6 mmHg E/E' med: 10.4 Lat Peak E' Richard: 7.8 cm/sec E/E' lat: 13.6 E/e' average: 12.0 MV dec time: 0.21 sec MVA(VTI): 2.0 cm2 MV V2 mean: 103.5 cm/sec SV(LVOT): 79.6 ml MV mean P.4 mmHg MV V2 VTI: 40.6 cm Reading Physician:06:23 PM
== END ==
PROVIDERS: PCP Student in an Organized Health Care Education/Training Program; Referring Provider Student in an Organized Health Care Education/Training Program; Visit Provider Student in an Organized Health Care Education/Training Program
DX: I08.0 Rheumatic disorders of both mitral and aortic valves (principal); I50.9 Heart failure, unspecified; R60.9 Edema, unspecified
CPT/HCPCS: 93306; Q9957

== ENCOUNTER → 2020-02-24 13:50 | Outpatient (CLI) | payer MEDICARE, MEDICAID, SELFPAY ==
[2020-01-24 15:17] VITALS: PULSE 56; RESP 16; O2SAT 100; BMI 42.2
== END ==
PROVIDERS: PCP Student in an Organized Health Care Education/Training Program; Referring Provider Student in an Organized Health Care Education/Training Program; Visit Provider Family Medicine
DX: I87.2 Venous insufficiency (chronic) (peripheral) (principal); L97.821 Non-pressure chronic ulcer of other part of left lower leg limited to breakdown of skin; L97.811 Non-pressure chronic ulcer of other part of right lower leg limited to breakdown of skin; R60.0 Localized edema
CPT/HCPCS: 29581

== ENCOUNTER → 2020-02-26 13:17 | Outpatient (CLI) | payer MEDICARE, MEDICAID, SELFPAY ==
[2019-01-25 14:14] VITALS: PULSE 56; RESP 16; O2SAT 100
[2019-11-13 22:02] VITALS: BMI 42.2
[2020-01-24 15:17] VITALS: PULSE 56; RESP 16; O2SAT 100; BMI 42.2
[2020-02-26 13:49] VITALS: BP 169/89; PULSE 90; RESP 20; TEMP 36.8; O2SAT 96
[2020-02-26] MEDS: DARBEPOETIN 200 MCG/0.4 ML SYRINGE SUBCUT (14:56)
== END ==
PROVIDERS: PCP Student in an Organized Health Care Education/Training Program; Referring Provider Internal Medicine; Visit Provider Internal Medicine
DX: E11.22 Type 2 diabetes mellitus with diabetic chronic kidney disease (principal); I12.9 Hypertensive chronic kidney disease with stage 1 through stage 4 chronic kidney disease, or unspecified chronic kidney disease; N18.4 Chronic kidney disease, stage 4 (severe); D63.1 Anemia in chronic kidney disease; L03.90 Cellulitis, unspecified; R60.9 Edema, unspecified
CPT/HCPCS: 80053; 82728; 85025; 96372; 99213; J0881

== ENCOUNTER 2020-02-28 10:53 | Emergency (ER) | payer MEDICARE, MEDICAID, SELFPAY ==
[2020-01-24 15:17] VITALS: PULSE 56; RESP 16; O2SAT 100; BMI 42.2
[2020-02-28] VITALS (26 sets, daily range): BP systolic 97–185; BP diastolic 57–93; PULSE 86–100; RESP 18–40; TEMP 36.4; O2SAT 91–99; BMI 40.1
--- NOTE | 2020-02-28 10:59 | ED_ITS ---
HPI - SOB/Dyspnea General Chief Complaint: Shortness of Breath/Dyspnea Stated Complaint: SOB Time Seen by Provider: 02/28/20 10:55 Source: patient and EMS Mode of arrival: EMS Limitations: no limitations History of Present Illness HPI Narrative: 69-year-old male nonsmoker with history of chronic kidney disease, aortic stenosis and hyperlipidemia presents with a chief complaint of worsening shortness of breath over the past few days. He denies any significant change when he lies flat and states he does not walk. He denies any runny nose, sore throat or cough. He denies any fever or chills. He has had no nausea, vomiting or diarrhea. He denies any exposure to persons known to have COVID. He denies any change in medications. MD Complaint: shortness of breath Onset (ago): day(s) Severity: moderate Consistency/Duration: constant Relieving factors: nothing Exacerbating factors: nothing Associated symptoms: denies other symptoms Treatment prior to arrival: none Related Data Home oxygen amount: none Home Medications Medication Instructions Recorded Confirmed doxazosin 4 mg PO BEDTIME 06/07/18 02/26/20 duloxetine 60 mg PO BID 09/28/18 02/26/20 polyethylene glycol 3350 17 g PO DAILY PRN 09/28/18 02/26/20 silver sulfadiazine [SSD] 1 applic TOPICAL TID 11/12/18 02/26/20 pantoprazole 40 mg PO DAILY 08/08/19 02/26/20 allopurinol [Zyloprim] 200 mg PO DAILY 09/12/19 02/26/20 melatonin 6 mg PO BEDTIME 09/12/19 02/26/20 Previous Rx's Medication Instructions Recorded lidocaine 1 patch TOP DAILY #30 each 12/19/18 acetaminophen 650 mg PO Q6HR PRN #30 tab 09/13/19 lisinopril 5 mg PO DAILY #30 tab 09/13/19 lorazepam 0.5 mg PO Q4HR PRN #90 tab 09/13/19 multivitamin [Tab-A-Isidro] 1 tab PO DAILY #30 tab 09/13/19 docusate sodium [Colace] 100 mg PO DAILY #10 cap 01/26/20 torsemide 20 mg tablet 40 mg PO DAILY PRN #60 tab 01/27/20 citalopram 20 mg tablet 20 mg PO DAILY #90 tab 02/12/20 hydrocodone 7.5 mg-acetaminophen 1 tab PO BID PRN #60 tab 02/25/20 325 mg tablet Allergies Allergy/AdvReac Type Severity Reaction Status Date / Time latex Allergy Mild IRRITATION Verified 02/28/20 10:57 carisoprodol [From Soma] Allergy Verified 02/28/20 10:57 hydromorphone Allergy Verified 02/28/20 10:57 Sulfa (Sulfonamide AdvReac Mild N&V 1HOUR Verified 02/28/20 10:57 Antibiotics) AFTER RX, THINKS IT IS RELATED Review of Systems Constitutional Constitutional: Denies chills, Denies fatigue, Denies fever(s), Denies frequent falls, Denies lethargy and Denies weakness Eyes Eyes: Denies change in vision, Denies eye discharge, Denies irritation and Denies loss of vision ENT Ears, Nose, Mouth, and Throat: Denies change in voice, Denies dizziness, Denies neck pain, Denies sore throat and Denies throat swelling Cardiovascular Cardiovascular: Denies chest pain, Denies irregular heart rhythm, Denies lightheadedness, Denies palpitations, Reports dyspnea, Denies dyspnea on ex ertion and Denies orthopnea Respiratory Respiratory: Denies cough, Reports dyspnea, Denies dyspnea on exertion and Denies wheezing Gastrointestinal Gastrointestinal: Denies abdominal pain, Denies change in bowel habits, Denies diarrhea, Denies nausea and Denies vomiting Musculoskeletal Musculoskeletal: Denies neck pain and Denies numbness Integumentary/Breasts Skin/Breast: Denies pruritus, Denies erythema, Denies rash and Denies wounds Neurologic Neurologic: Denies behavioral changes, Denies confusion, Denies dizziness, Denies frequent falls, Denies loss of vision, Denies numbness and Denies weak ness Psychiatric Psychiatric: Denies anxiety, Denies behavioral changes, Denies confusion, Denies depression, Denies homicidal ideation and Denies suicidal ideation Endocrine Endocrine: Denies fatigue, Denies flushing and Denies palpitations Hematologic/Lymphatic Hematologic/Lymphatic: Denies easy bruising Allergic/Immunologic Allergic/Immunologic: Denies urticaria, Denies throat swelling and Denies wheezing Patient History Medical History Cellulitis of left leg Chronic kidney disease, stage 4 (severe) Depression Duodenal ulcer History of cervical fracture Hyperparathyroidism Surgical History H/O cervical spine surgery History of colectomy History of fusion of cervical spine Social History household members: none Smoking Status: Former smoker alcohol intake: current Smoking Status: Former smoker alcohol intake frequency: 0-2 drinks per day Alcohol type: beer Substance Use Type: does not use Exam Narrative Exam Narrative: GENERAL: [69] year old patient appears stated age. Well- nourished, well-developed patient, in mild distress. HEAD: Atraumatic. Normocephalic. EYES: Pupils equal round and reactive. Extraocular motions intact. No scleral icterus. No injection or drainage. ENT: Nose without bleeding, purulent drainage. Throat without erythema, tonsillar hypertrophy or exudate. Airway patent. NECK: Trachea midline. Non tender CARDIOVASCULAR: Regular rate and rhythm without murmurs, gallops, or rubs. RESPIRATORY: Decreased breath sounds bilaterally with mild expiratory wheeze, particularly in [place]. No rhonchi or rales noted GASTROINTESTINAL: Abdomen soft, non-tender, nondistended. EXTREMITIES: No edema or joint tenderness. BACK: Nontender without deformity or crepitance. No flank tenderness. NEURO: AOx3. SKIN: No rash or erythema of visible areas Initial Vital Signs Initial Vital Signs: Vital Signs Pulse Rate 95 H 02/28/20 10:56 Pulse Oximetry 98 02/28/20 10:56 Course Course Course Narrative: Patient does have desaturations when he falls asleep into the mid 80s but quickly bounces to the mid 90s when aroused Orders Ordered: ED Orders 02/28/20 10:59 XR chest 1V Stat EKG-12 Lead Stat Measure peak expiratory flow ONCE RT Consult Eval and Treat Now 02/28/20 11:00 COVID19 Stat 02/28/20 11:25 Complete Blood Count AUTO DIFF Stat Comprehensive Metabolic Panel Stat D Dimer Stat Ferritin Stat Lactate (Lactic Acid) Stat Lactate Dehydrogenase Stat NT-proBNP (BNP-Adult 18+) Stat Procalcitonin Stat Troponin & CK Cardiac Panel Stat 02/28/20 12:36 US periph venous low extrem bi Stat 02/28/20 12:56 Blood Culture Stat 02/28/20 13:34 EKG-12 Lead Stat 12/25/20 14:03 Arterial Blood Gas Stat 02/28/20 14:19 Troponin I Stat Discontinued Medications Albuterol/Ipratropium (Albuterol/Ipratropium 3 Ml Ampul) 3 ml INH NOW ONE Stop: 02/28/20 11:41 Last Admin: 02/28/20 11:59 Dose: 3 ml Documented by: NEETA Heparin Sodium (Porcine) (Heparin 5,000 Unit/Ml Vial) 7,500 unit IV NOW ONE Stop: 02/28/20 16:02 Last Admin: 02/28/20 16:13 Dose: 7,500 unit Documented by: EMILY Lactated Ringer's (Lactated Ringers) 1,000 mls @ 150 mls/hr IV CONT DAVID Last Infusion: 02/28/20 17:11 Dose: 0 mls/hr Documented by: Admin: 02/28/20 12:42 Dose: 150 mls/hr Documented by: EMILY Ceftriaxone Sodium/Dextrose (Rocephin) 2 gm in 50 mls @ 100 mls/hr IV NOW ONE Stop: 02/28/20 15:30 Last Infusion: 02/28/20 15:54 Dose: 0 mls/hr Documented by: Admin: 02/28/20 15:20 Dose: 100 mls/hr Documented by: EMILY Heparin Sodium/Dextrose (Heparin Drip) 25,000 unit in 500 mls @ 20 mls/hr IV CONT DAVID; Protocol Last Titration: 02/28/20 17:11 Dose: 0 units/hr, 0 mls/hr Documented by: Admin: 02/28/20 16:13 Dose: 1,000 units/hr, 20 mls/hr Documented by: EMILY Methylprednisolone (Methylprednisolone 125 Mg/2 Ml Vial) 125 mg IV NOW ONE Stop: 02/28/20 11:15 Last Admin: 02/28/20 11:35 Dose: 125 mg Documented by: EMILY Torsemide (Torsemide 10 Mg Tablet) 40 mg PO NOW ONE Stop: 02/28/20 14:13 Last Admin: 02/28/20 14:46 Dose: 40 mg Documented by: EMILY Consultations Consultation #1: discussed with our hospitalist and he recommends transfer given complexity of fluid balance including presentation consistent with CHF, but renal failure and aortic stenosis. Patient will likely need advanced imaging to rule out PE. Needs facility with nephrology and likely cardiology Consultation #2: call to nephrology ([facility]) happy to be involved in consult if needed. Consultation #3: hospitalist happy to accept ([facility]). Recommends Heparin for treatment of possible PE. Vital Signs Vital signs: Vital Signs - 8 hr 02/28/20 12:00 02/28/20 12:01 02/28/20 12:30 Pulse Rate 88 87 94 H Respiratory Rate 40 H 32 H 30 H Blood Pressure 147/74 H 157/70 H Pulse Oximetry 96 95 96 02/28/20 13:00 02/28/20 13:01 02/28/20 13:30 Pulse Rate 94 H 86 94 H Respiratory Rate 32 H 29 H 34 H Blood Pressure 112/57 L 126/61 Pulse Oximetry 96 97 98 02/28/20 14:00 02/28/20 14:23 02/28/20 14:26 Pulse Rate 92 H 100 H 95 H Respiratory Rate 32 H 30 H 29 H Blood Pressure 185/89 H 163/76 H Pulse Oximetry 97 97 98 02/28/20 14:30 02/28/20 15:00 02/28/20 15:01 Pulse Rate 92 H 93 H 93 H Respiratory Rate 26 H 35 H 35 H Blood Pressure 153/63 H 155/77 H Pulse Oximetry 98 93 92 02/28/20 15:28 02/28/20 15:30 02/28/20 15:31 Pulse Rate 94 H 96 H 100 H Respiratory Rate 29 H 29 H 34 H Blood Pressure 153/80 H 164/93 H Pulse Oximetry 98 99 99 02/28/20 16:00 02/28/20 16:01 02/28/20 16:30 Pulse Rate 91 H 93 H 95 H Respiratory Rate 30 H 30 H 32 H Blood Pressure 150/81 H Pulse Oximetry 99 98 95 02/28/20 16:31 02/28/20 17:00 02/28/20 17:01 Pulse Rate 93 H 91 H 91 H Respiratory Rate 32 H 29 H 30 H Blood Pressure 164/81 H 146/77 H Pulse Oximetry 95 93 95 MDM - SOB/Dyspnea Lab Data Result diagrams: 02/28/20 11:25 02/28/20 11:25 Labs: Lab Results 02/28/20 02/28/20 02/28/20 Range/Units 11:00 11:25 11:25 WBC 13.9 H (4.5-11.0) X10^3/uL RBC 3.44 L (4.5-5.9) X10^6/uL Hgb 10.3 L (13.5-17.5) g/dL Hct 32.8 L (41-53) % MCV 95.3 (80-100) fL MCH 29.9 (26-34) PG MCHC 31.4 (30-36) % RDW 15.5 H (11.6-14.8) % Plt Count 235 (150-400) X10^3/uL Neut % (Auto) 86.5 H (50-75) % Lymph % (Auto) 3.8 L (25-40) % [place] % (Auto) 9.6 (3-14) % Eos % (Auto) 0.0 L (2-4) % Baso % (Auto) 0.1 (0-2) % Neut # (Auto) 56440 H (6555-8051) /uL Lymph # (Auto) 500 L (6728-4331) /uL [place] # (Auto) 1300 H (0-900) /uL Eos # (Auto) 0 (0-450) /uL Baso # (Auto) 0 (0-100) /uL D-Dimer (<230) ng/mL ABG pH (7.35-7.45) ABG pCO2 (35-45) mmHg ABG pO2 (80-100) mmHg ABG HCO3 (22-26) mmol/L ABG Total CO2 (21-31) mmol/L ABG O2 Saturation (95-100) % ABG Base Excess (-2-2) mmol/L FiO2 Sodium 131 L (137-145) mmol/L Potassium 4.1 (3.4-5.1) mmol/L Chloride 96 L (98-107) mmol/L Carbon Dioxide 27 (22-32) mmol/L BUN 60 H (9-20) mg/dL Creatinine 3.25 H (0.66-1.25) mg/dL Estimated GFR 19.1 L (>60) mL/min BUN/Creatinine Ratio 18.5 (6-22) Glucose 183 H (80-110) mg/dL Lactate (0.7-2.1) mmol/L Calcium 8.6 (8.4-10.2) mg/dL Ferritin (18-464) ng/mL Total Bilirubin 0.5 (0.2-1.3) mg/dL AST 25 (17-59) IU/L ALT 11 (<50) IU/L Alkaline Phosphatase 109 (38-126) U/L Lactate Dehydrogenase (313-618) U/L Total Creatine Kinase (55-170) U/L CK-MB (CK-2) (<2.37) ng/mL CK-MB (CK-2) Rel Index (1.5-5.0) % Troponin I (0.01-0.034) ng/mL NT-Pro-B Natriuret Pep (<125) pg/mL Total Protein 7.5 (6.3-8.2) g/dL Albumin 3.8 (3.5-5.0) g/dL Globulin 3.7 (1.7-4.1) g/dL Albumin/Globulin Ratio 1.0 (1.0-2.8) Procalcitonin (<0.5) ng/mL COVID-19 PCR Negative (Negative) 02/28/20 02/28/20 02/28/20 Range/Units 11:25 11:25 11:25 WBC (4.5-11.0) X10^3/uL RBC (4.5-5.9) X10^6/uL Hgb (13.5-17.5) g/dL Hct (41-53) % MCV (80-100) fL MCH (26-34) PG MCHC (30-36) % RDW (11.6-14.8) % Plt Count (150-400) X10^3/uL Neut % (Auto) (50-75) % Lymph % (Auto) (25-40) % [place] % (Auto) (3-14) % Eos % (Auto) (2-4) % Baso % (Auto) (0-2) % Neut # (Auto) (8321-0462) /uL Lymph # (Auto) (0274-4532) /uL [place] # (Auto) (0-900) /uL Eos # (Auto) (0-450) /uL Baso # (Auto) (0-100) /uL D-Dimer 2581 H (<230) ng/mL ABG pH (7.35-7.45) ABG pCO2 (35-45) mmHg ABG pO2 (80-100) mmHg ABG HCO3 (22-26) mmol/L ABG Total CO2 (21-31) mmol/L ABG O2 Saturation (95-100) % ABG Base Excess (-2-2) mmol/L FiO2 Sodium (137-145) mmol/L Potassium (3.4-5.1) mmol/L Chloride (98-107) mmol/L Carbon Dioxide (22-32) mmol/L BUN (9-20) mg/dL Creatinine (0.66-1.25) mg/dL Estimated GFR (>60) mL/min BUN/Creatinine Ratio (6-22) Glucose (80-110) mg/dL Lactate 1.2 (0.7-2.1) mmol/L Calcium (8.4-10.2) mg/dL Ferritin (18-464) ng/mL Total Bilirubin (0.2-1.3) mg/dL AST (17-59) IU/L ALT (<50) IU/L Alkaline Phosphatase (38-126) U/L Lactate Dehydrogenase (313-618) U/L Total Creatine Kinase (55-170) U/L CK-MB (CK-2) (<2.37) ng/mL CK-MB (CK-2) Rel Index (1.5-5.0) % Troponin I (0.01-0.034) ng/mL NT-Pro-B Natriuret Pep (<125) pg/mL Total Protein (6.3-8.2) g/dL Albumin (3.5-5.0) g/dL Globulin (1.7-4.1) g/dL Albumin/Globulin Ratio (1.0-2.8) Procalcitonin 3.31 H (<0.5) ng/mL COVID-19 PCR (Negative) 02/28/20 02/28/20 02/28/20 Range/Units 11:25 11:25 14:03 WBC (4.5-11.0) X10^3/uL RBC (4.5-5.9) X10^6/uL Hgb (13.5-17.5) g/dL Hct (41-53) % MCV (80-100) fL MCH (26-34) PG MCHC (30-36) % RDW (11.6-14.8) % Plt Count (150-400) X10^3/uL Neut % (Auto) (50-75) % Lymph % (Auto) (25-40) % [place] % (Auto) (3-14) % Eos % (Auto) (2-4) % Baso % (Auto) (0-2) % Neut # (Auto) (1988-5509) /uL Lymph # (Auto) (2002-2993) /uL [place] # (Auto) (0-900) /uL Eos # (Auto) (0-450) /uL Baso # (Auto) (0-100) /uL D-Dimer (<230) ng/mL ABG pH 7.40 (7.35-7.45) ABG pCO2 34.2 L (35-45) mmHg ABG pO2 76 L (80-100) mmHg ABG HCO3 21 L (22-26) mmol/L ABG Total CO2 22 (21-31) mmol/L ABG O2 Saturation 95 (95-100) % ABG Base Excess -4.0 L (-2-2) mmol/L FiO2 21 Sodium (137-145) mmol/L Potassium (3.4-5.1) mmol/L Chloride (98-107) mmol/L Carbon Dioxide (22-32) mmol/L BUN (9-20) mg/dL Creatinine (0.66-1.25) mg/dL Estimated GFR (>60) mL/min BUN/Creatinine Ratio (6-22) Glucose (80-110) mg/dL Lactate (0.7-2.1) mmol/L Calcium (8.4-10.2) mg/dL Ferritin 290 (18-464) ng/mL Total Bilirubin (0.2-1.3) mg/dL AST (17-59) IU/L ALT (<50) IU/L Alkaline Phosphatase (38-126) U/L Lactate Dehydrogenase 425 (313-618) U/L Total Creatine Kinase 131 (55-170) U/L CK-MB (CK-2) 3.58 H (<2.37) ng/mL CK-MB (CK-2) Rel Index 2.7 (1.5-5.0) % Troponin I 0.107 H (0.01-0.034) ng/mL NT-Pro-B Natriuret Pep 21418 H (<125) pg/mL Total Protein (6.3-8.2) g/dL Albumin (3.5-5.0) g/dL Globulin (1.7-4.1) g/dL Albumin/Globulin Ratio (1.0-2.8) Procalcitonin (<0.5) ng/mL COVID-19 PCR (Negative) 02/27/ Range/Units 14:19 WBC (4.5-11.0) X10^3/uL RBC (4.5-5.9) X10^6/uL Hgb (13.5-17.5) g/dL Hct (41-53) % MCV (80-100) fL MCH (26-34) PG MCHC (30-36) % RDW (11.6-14.8) % Plt Count (150-400) X10^3/uL Neut % (Auto) (50-75) % Lymph % (Auto) (25-40) % [place] % (Auto) (3-14) % Eos % (Auto) (2-4) % Baso % (Auto) (0-2) % Neut # (Auto) (2188-6818) /uL Lymph # (Auto) (3853-3135) /uL [place] # (Auto) (0-900) /uL Eos # (Auto) (0-450) /uL Baso # (Auto) (0-100) /uL D-Dimer (<230) ng/mL ABG pH (7.35-7.45) ABG pCO2 (35-45) mmHg ABG pO2 (80-100) mmHg ABG HCO3 (22-26) mmol/L ABG Total CO2 (21-31) mmol/L ABG O2 Saturation (95-100) % ABG Base Excess (-2-2) mmol/L FiO2 Sodium (137-145) mmol/L Potassium (3.4-5.1) mmol/L Chloride (98-107) mmol/L Carbon Dioxide (22-32) mmol/L BUN (9-20) mg/dL Creatinine (0.66-1.25) mg/dL Estimated GFR (>60) mL/min BUN/Creatinine Ratio (6-22) Glucose (80-110) mg/dL Lactate (0.7-2.1) mmol/L Calcium (8.4-10.2) mg/dL Ferritin (18-464) ng/mL Total Bilirubin (0.2-1.3) mg/dL AST (17-59) IU/L ALT (<50) IU/L Alkaline Phosphatase (38-126) U/L Lactate Dehydrogenase (313-618) U/L Total Creatine Kinase (55-170) U/L CK-MB (CK-2) (<2.37) ng/mL CK-MB (CK-2) Rel Index (1.5-5.0) % Troponin I 0.091 H (0.01-0.034) ng/mL NT-Pro-B Natriuret Pep (<125) pg/mL Total Protein (6.3-8.2) g/dL Albumin (3.5-5.0) g/dL Globulin (1.7-4.1) g/dL Albumin/Globulin Ratio (1.0-2.8) Procalcitonin (<0.5) ng/mL COVID-19 PCR (Negative) Urine Dip Bedside Urine Glucose Negative Bedside Urine Bilirubin - Negative Bedside Urine Ketone - Negative Urine Specific [place] 1.015 Bedside Urine Occult Blood +++ Bedside Urine pH 6.0 Bedside Urine Protein ++ 100 Bedside Urine Urobilinogen - Negative Bedside Urine Nitrite - Negative Bedside Urine Leukocytes ++ 125 Esterase Discharge Plan Departure Patient Disposition: [facility] Clinical Impression: Acute CHF Qualifiers: Heart failure type: unspecified Qualified Code(s): I50.9 - Heart failure, unspecified Pulmonary edema Qualifiers: Chronicity: acute Qualified Code(s): J81.0 - Acute pulmonary edema Prescriptions: No Action torsemide 20 mg tablet 40 mg PO DAILY PRN (Reason: edema) Qty: 60 RF: 2 citalopram 20 mg tablet 20 mg PO DAILY Qty: 90 RF: 3 hydrocodone-acetaminophen 7.5-325 mg tablet 1 tab PO BID PRN (Reason: pain) Qty: 60 RF: 0 doxazosin 4 mg Tablet 4 mg PO BEDTIME RF: 0 duloxetine 60 mg capsule,delayed release(DR/EC) 60 mg PO BID RF: 0 polyethylene glycol 3350 17 gram/dose Powder 17 g PO DAILY PRN (Reason: Constipation) RF: 0 silver sulfadiazine [SSD] 1 % cream 1 applic TOPICAL TID RF: 0 lidocaine 5 % adhesive patch,medicated 1 patch TOP DAILY Qty: 30 RF: 0 pantoprazole 40 mg Tablet,Delayed Release (Dr/Ec) 40 mg PO DAILY RF: 0 allopurinol [Zyloprim] 100 mg tablet 200 mg PO DAILY RF: 0 melatonin 3 mg Tablet 6 mg PO BEDTIME RF: 0 acetaminophen 325 mg Tablet 650 mg PO Q6HR PRN (Reason: Fever/Mild Pain (1-3)) Qty: 30 RF: 0 lisinopril 5 mg Tablet 5 mg PO DAILY Qty: 30 RF: 0 multivitamin [Tab-A-Isidro] Tablet 1 tab PO DAILY Qty: 30 RF: 0 lorazepam 0.5 mg Tablet 0.5 mg PO Q4HR PRN (Reason: Anxiety) Qty: 90 RF: 0 docusate sodium [Colace] 100 mg capsule 100 mg PO DAILY Qty: 10 RF: 0 Referrals: Mariano Keller MD [Primary Care Provider] -
--- NOTE | 2020-02-28 10:59 | DI.RAD.S_ITS ---
PROCEDURE: XR CHEST 1V INDICATIONS: shortness of breath TECHNIQUE: One view of the chest was acquired. COMPARISON: [facility], CR, XR CHEST 1V, 11/13/2019, 17:53. FINDINGS: Surgical changes and devices: Stable appearance of surgical fixation hardware of the cervical spine and lumbar spine. The lower fixation screws of the cervical spine are fractured as before. Lungs and pleura: Diffuse interstitial prominence and suggestion of pulmonary vascular congestion. No definite effusion. No pneumothorax. No focal consolidation. Mediastinum: Mediastinal contours appear stable. Heart size is enlarged. Bones and chest wall: No suspicious bony lesions. Overlying soft tissues appear unremarkable. IMPRESSION: Findings compatible with mild pulmonary edema/CHF. Infectious/inflammatory process not excluded if clinically appropriate. No focal consolidation seen. Dictated by: Peter Ramirez M.D. on 02/28/2020 at 11:58 Approved by: Peter Ramirez M.D. on 02/28/2020 at 12:00
[2020-02-28] MEDS: methylPREDNISolone 125 MG/2 ML VIAL IV (11:35)
[2020-02-28 11:37] LABS: COVID19 -Nasal RAPID Negative (Negative)
[2020-02-28 11:42] LABS: Add Manual Diff / Slide Review NO; Basophils Absolute Auto 0 /uL (0-100); Basophils Percent Auto 0.1 % (0-2); Eosinophils Absolute Auto 0 /uL (0-450); Hematocrit 32.8 % (41-53); Hemoglobin 10.3 g/dL (13.5-17.5); Lymphocytes Absolute Auto 500 /uL (1100-4500); Lymphocytes Percent Auto 3.8 % (25-40); Mean Corpuscular HGB Conc 31.4 % (30-36); Mean Corpuscular Hemoglobin 29.9 PG (26-34); Mean Corpuscular Volume 95.3 fL (80-100); Monocytes Absolute Auto 1300 /uL (0-900); Monocytes Percent Auto 9.6 % (3-14); Neutrophils Absolute Auto 12100 /uL (1500-7000); Neutrophils Percent Auto 86.5 % (50-75); Platelet Count 235 X10^3/uL (150-400); Red Blood Cell Count 3.44 X10^6/uL (4.5-5.9); Red Cell Distribution Width 15.5 % (11.6-14.8); White Blood Cell Count 13.9 X10^3/uL (4.5-11.0)
[2020-02-28 11:49] LABS: Lactate (Lactic Acid) 1.2 mmol/L (0.7-2.1)
[2020-02-28 11:52] LABS: Alanine Aminotransferase 11 IU/L (<50); Albumin 3.8 g/dL (3.5-5.0); Alkaline Phosphatase 109 U/L (38-126); Aspartate Aminotransferase 25 IU/L (17-59); BUN Creatinine Ratio 18.5 (6-22); Bilirubin Total 0.5 mg/dL (0.2-1.3); Blood Urea Nitrogen 60 mg/dL (9-20); Calcium 8.6 mg/dL (8.4-10.2); Carbon Dioxide 27 mmol/L (22-32); Chloride 96 mmol/L (98-107); Estimated Glomerular Filt Rate 19.1 mL/min (>60); Globulin 3.7 g/dL (1.7-4.1); Glucose 183 mg/dL (80-110); HEMOLYSIS < 15 (0-50); Lactate Dehydrogenase 425 U/L (313-618); Potassium 4.1 mmol/L (3.4-5.1); Sodium 131 mmol/L (137-145); Total Protein 7.5 g/dL (6.3-8.2)
[2020-02-28 11:55] LABS: D Dimer 2581 ng/mL (<230)
[2020-02-28] MEDS: ALBUTEROL/IPRATROPIUM 3 ML AMPUL INH (11:59)
[2020-02-28 12:14] LABS: Procalcitonin 3.31 ng/mL (<0.5)
[2020-02-28 12:27] LABS: Ferritin 290 ng/mL (18-464)
--- NOTE | 2020-02-28 12:30 | PC.NURSE ---
the patient's 02 saturation began to drop to 89% on RA because he fell asleep. He was encouraged to take some deep breathes and his 02 sat came up to 96-98%. Every time he falls asleep his sat drops to high 80s. He was placed on 2 Liters Nasal cannula. His 02 sat is 97% while the patient sleeps.
--- NOTE | 2020-02-28 12:36 | DI.US.S_ITS ---
PROCEDURE: US PERIPH VENOUS LOW EXTREM BI INDICATIONS: SOB, critical dimer, sedentary TECHNIQUE: Real-time imaging, as well as color and pulse Doppler interrogation, were performed of the deep veins of both legs from the inguinal ligament to the popliteal fossa. COMPARISON: Merged With [facility], CR, XR CHEST 1V, 02/28/2020, 11:21. Merged With [facility], US, US PERIPH VENOUS LOW EXTREM BI, 11/15/2019, 8:50. FINDINGS: Right: The common femoral, femoral and popliteal veins are normally compressible, and free of intraluminal thrombus. Color and pulse Doppler demonstrate normal phasic intravascular flow. There is normal augmentation response to distal compression maneuver. Left: The common femoral, femoral and popliteal veins are normally compressible, and free of intraluminal thrombus. Color and pulse Doppler demonstrate normal phasic intravascular flow. There is normal augmentation response to distal compression maneuver. IMPRESSION: No findings of deep venous thrombosis. Dictated by: Matthew Ware M.D. on 02/28/2020 at 13:20 Approved by: Matthew Ware M.D. on 02/28/2020 at 13:21
[2020-02-28] MEDS: LACTATED RINGERS 1,000 ML 150 ML IV (12:42)
[2020-02-28 12:55] LABS: Creatine Kinase 131 U/L (55-170)
[2020-02-28 13:08] LABS: NT-proBNP (BNP-Adult 18+) 13400 pg/mL (<125); Troponin I 0.107 ng/mL (0.01-0.034)
[2020-02-28 13:10] LABS: CKMB % Relative Index 2.7 % (1.5-5.0); Creatine Kinase MB 3.58 ng/mL (<2.37)
--- NOTE | 2020-02-28 13:12 | PC.NURSE ---
the patient continues to take off his oxygen. When he does that his 02 saturation level drop to mid 80s. With 02 his saturation bumps back up to mid 90s. provider aware.
[2020-02-28 14:12] LABS: Fractionated Inspired Oxygen 21; HCO3 ABG 21 mmol/L (22-26); Oxygen Saturation ABG 95 % (95-100); PCO2 ABG 34.2 mmHg (35-45); PO2 ABG 76 mmHg (80-100); TCO2 ABG 22 mmol/L (21-31)
[2020-02-28] MEDS: TORSEMIDE 10 MG TABLET 40 MG PO (14:46)
[2020-02-28 14:49] LABS: Troponin I 0.091 ng/mL (0.01-0.034)
[2020-02-28] MEDS: CEFTRIAXONE 2 GM/50 ML FROZ.PIGGY IV (15:20)
[2020-02-28] MEDS: HEPARIN DRIP 25,000 UNIT/500 ML IV.SOLN 20 UNIT IV (16:13)
[2020-02-28] MEDS: HEPARIN 5,000 UNIT/ML VIAL 7500 UNIT IV (16:13)
--- NOTE | 2020-02-28 17:06 | PC.NURSE ---
patient was straight cathed at 1645 and 900mls was obtained. The patient immediately felt better.
--- NOTE | 2020-02-28 21:06 | PC.NURSE ---
Iv fluids were running in transit. LR and Heparin.
[2020-02-29 20:49] LABS: Acinetobacter baumannii Not Detected (Not Detect); Candida albicans Not Detected (Not Detect); Candida glabrata Not Detected (Not Detect); Candida krusei Not Detected (Not Detect); Candida parapsilosis Not Detected (Not Detect); Candida tropicalis Not Detected (Not Detect); E. coli Not Detected (Not Detect); Enterobacter cloacae complex Not Detected (Not Detect); Enterobacteriaceae species Not Detected (Not Detect); Enterococcus species Not Detected (Not Detect); Haemophilus influenzae Not Detected (Not Detect); Listeria monocytogenes Not Detected (Not Detect); Neisseria meningitidis Not Detected (Not Detect); Proteus species Not Detected (Not Detect); Pseudomonas aeruginosa Not Detected (Not Detect); Serratia marcescens Not Detected (Not Detect); Staphylococcus species Detected (Not Detect); Streptococcus agalactiae (Gr B Not Detected (Not Detect); Streptococcus pneumonia Not Detected (Not Detect); Streptococcus pyogenes (Gr A) Not Detected (Not Detect); Streptococcus species Not Detected (Not Detect)
== END 2020-02-28 17:11 | disposition short-term general hospital (02) ==
PROVIDERS: Emergency Provider Emergency Medicine; PCP Student in an Organized Health Care Education/Training Program
DX: I50.9 Heart failure, unspecified (principal); J81.0 Acute pulmonary edema; N18.4 Chronic kidney disease, stage 4 (severe); Z20.828 Contact with and (suspected) exposure to other viral communicable diseases
CPT/HCPCS: 36415; 36600; 51798; 71045; 80053; 81003; 82550; 82553; 82728; 82805; 83605; 83615; 83880; 84145; 84484; 85025; 85379; 87040; 87150; 87205; 87635; 93005; 93970; 94150; 94640; 96361; 96365; 96367; 96375; 99284; 99285; J0696; J1644; J2930

== ENCOUNTER → 2020-03-11 12:27 | Outpatient (CLI) | payer MEDICARE, MEDICAID, SELFPAY ==
[2020-01-24 15:17] VITALS: PULSE 56; RESP 16; O2SAT 100; BMI 42.2
[2020-03-11 12:55] VITALS: BP 117/63; PULSE 63; RESP 18; TEMP 36.5
[2020-03-11] MEDS: DARBEPOETIN 200 MCG/0.4 ML SYRINGE SUBCUT (13:14)
== END ==
PROVIDERS: PCP Student in an Organized Health Care Education/Training Program; Referring Provider Internal Medicine; Visit Provider Internal Medicine
DX: E11.22 Type 2 diabetes mellitus with diabetic chronic kidney disease (principal); I12.9 Hypertensive chronic kidney disease with stage 1 through stage 4 chronic kidney disease, or unspecified chronic kidney disease; N18.4 Chronic kidney disease, stage 4 (severe); D63.1 Anemia in chronic kidney disease
CPT/HCPCS: 36415; 85025; 96372; J0881; M1145

== ENCOUNTER 2020-03-14 08:43 | Emergency (ER) | payer MEDICARE, MEDICAID, SELFPAY ==
[2020-01-24 15:17] VITALS: PULSE 56; RESP 16; O2SAT 100; BMI 42.2
[2020-03-14 08:46] VITALS: PULSE 72; O2SAT 99
[2020-03-14 08:48] VITALS: BP 199/93; PULSE 76; RESP 18; TEMP 36.9; O2SAT 98; BMI 41.3
--- NOTE | 2020-03-14 08:53 | ED.MALEGU ---
HPI - Male Genitourinary General Chief complaint: Urogenital-Male Stated complaint: UTI/Cath burning Time Seen by Provider: 03/14/20 08:44 Source: patient and EMS Mode of arrival: EMS Limitations: no limitations History of Present Illness HPI Narrative: This is a 69-year-old male who comes emergency department with complaint of his testicles feeling like they are burning on the outside. Patient states that he does not feel like there is any pain deep inside the testicles. He did have a Wells catheter placed several days ago before discharge from the hospital at [facility]. He states it has been leaking some urine from around the Wells catheter and that the area has stayed wet frequently. He does note that if he moves around a lot causes more pain and if he still the pain resolves. Patient has not appreciated any swelling. He denies any fevers. No chest pain, no shortness of breath. No abdominal, suprapubic or flank pain. Patient denies any penile pain or pain at the urethra. Patient states that he has had catheters in the past and this [address] for about 4 days. He states that was placed because he was retaining urine and that he has a UTI. He states he is currently on antibiotics but is unsure of the name. He has been constipated but is passing gas regularly. Related Data Home Medications Medication Instructions Recorded Confirmed doxazosin 4 mg PO BEDTIME 06/07/18 02/26/20 duloxetine 60 mg PO BID 09/28/18 02/26/20 polyethylene glycol 3350 17 g PO DAILY PRN 09/28/18 02/26/20 silver sulfadiazine [SSD] 1 applic TOPICAL TID 11/12/18 02/26/20 pantoprazole 40 mg PO DAILY 08/08/19 02/26/20 allopurinol [Zyloprim] 200 mg PO DAILY 09/12/19 02/26/20 melatonin 6 mg PO BEDTIME 09/12/19 02/26/20 Previous Rx's Medication Instructions Recorded lidocaine 1 patch TOP DAILY #30 each 12/19/18 acetaminophen 650 mg PO Q6HR PRN #30 tab 09/13/19 lisinopril 5 mg PO DAILY #30 tab 09/13/19 lorazepam 0.5 mg PO Q4HR PRN #90 tab 09/13/19 multivitamin [Tab-A-Isidro] 1 tab PO DAILY #30 tab 09/13/19 docusate sodium [Colace] 100 mg PO DAILY #10 cap 01/26/20 torsemide 20 mg tablet 40 mg PO DAILY PRN #60 tab 01/27/20 citalopram 20 mg tablet 20 mg PO DAILY #90 tab 02/12/20 hydrocodone 7.5 mg-acetaminophen 1 tab PO BID PRN #60 tab 02/25/20 325 mg tablet glimepiride 1 mg tablet 1 mg PO DAILY #90 tab 03/13/20 nystatin 1 applic TOPICAL TID #30 g 03/14/20 zinc oxide [Boudreauxs Butt Paste] 1 applic TOPICAL 6XD PRN #56 g 03/14/20 Allergies Allergy/AdvReac Type Severity Reaction Status Date / Time latex Allergy Mild IRRITATION Verified 03/14/20 08:47 carisoprodol [From Soma] Allergy Verified 03/14/20 08:47 hydromorphone Allergy Verified 03/14/20 08:47 Sulfa (Sulfonamide AdvReac Mild N&V 1HOUR Verified 03/14/20 08:47 Antibiotics) AFTER RX, THINKS IT IS RELATED Review of Systems Review of Systems ROS Unobtainable: All systems reviewed & are unremarkable except as noted in HPI and below Patient History Medical History Cellulitis of left leg Chronic kidney disease, stage 4 (severe) Depression Duodenal ulcer History of cervical fracture Hyperparathyroidism Surgical History H/O cervical spine surgery History of colectomy History of fusion of cervical spine Social History household members: none Smoking Status: Former smoker alcohol intake: current Smoking Status: Former smoker alcohol intake frequency: 0-2 drinks per day Alcohol type: beer Substance Use Type: does not use Exam Narrative Exam Narrative: GENERAL: Alert and oriented x three, obese, well-appearing male in mild distress. HEENT: Head normocephalic, atraumatic, EOMI, pupils reactive, face symmetric, moist mucous membranes NECK: Supple, full range of motion CARDIOVASCULAR: Regular rate and rhythm without murmurs, rubs or gallops. RESPIRATORY: Breath sounds equal bilaterally, no wheezes rales or rhonchi. ABDOMEN: Soft, nontender. Normoactive bowel sounds all 4 quadrants. No guarding or rebound, rigidity, no mass : No CVA tenderness. Male: normal external examination except for some mild erythema of bilateral testicles, no obvious skin breakdown noted, no penile discharge or lesions, Wells catheter is in place and draining urine, testicles non-tender, no inguinal hernias noted. EXTREMITIES: Normal range of motion, no clubbing or edema. Neurovascularly intact NEUROLOGICAL: Cranial nerves II through XII grossly intact. Moving all extremities SKIN: Warm, dry, no petechiae, no rashes or lesions other than noted above. Initial Vital Signs Initial Vital Signs: Vital Signs Pulse Rate 72 03/14/20 08:46 Pulse Oximetry 99 03/14/20 08:46 Course Orders Ordered: ED Orders 03/14/20 08:53 Urinalysis and Microscopic Stat Vital Signs Vital signs: Vital Signs - 8 hr 03/14/20 08:46 03/14/20 08:48 03/14/20 09:00 Temperature 98.5 F Pulse Rate 72 76 69 Respiratory Rate 18 Blood Pressure 199/93 H Pulse Oximetry 99 98 96 03/14/20 09:04 03/14/20 10:06 Temperature Pulse Rate 70 74 Respiratory Rate 18 Blood Pressure 182/79 H 142/79 H Pulse Oximetry 99 97 MDM - Male Genitourinary Lab Data Labs: Lab Results 03/14/20 Range/Units 08:53 Urine Color Yellow Urine Appearance Clear Urine pH 6.0 (4.5-8.0) Ur Specific [place] <=1.005 (1.000-1.035) Urine Protein Trace H (Negative) Urine Glucose (UA) Negative (Negative) g/dL Urine Ketones Negative (NEGATIVE) Urine Occult Blood 3+ H (Negative) Urine Nitrate Negative (Negative) Urine Bilirubin Negative (NEGATIVE) Urine Urobilinogen 0.2 (0.2) E.U./dL Ur Leukocyte Esterase Trace H (NEGATIVE) Urine RBC 5-10/hpf H (0-5/HPF) Urine WBC 1-5/hpf (0-5/HPF) Ur Squamous Epith Cells 0-1 /hpf (0-5/HPF) Urine Bacteria None seen (None) Ur Culture Indicated? Cult not indicated MDM Narrative Medical decision making narrative: For I suspect that patient is having some skin irritation and potentially could have skin breakdown from chronically wet briefs with urine leakage. Area was cleansed by nursing and a barrier ointment was placed. Discharge Plan Departure Patient Disposition: Home Clinical Impression: Irritation of perirectal skin, Skin irritation Activity Restrictions/Additional Instructions: Follow-up with your physician in the next 4-5 days for recheck. Continue your home antibiotics. Your urine was sent for culture and is pending. Mix the zinc oxide and nystatin together to make a barrier ointment. Use a barrier ointment 3-6 times daily. Wash the area with warm water, pat dry and then apply the ointment. If you note that the area is wet or moist I would recommend that you go ahead and wash, dry the area and apply the ointment more frequently. Prescriptions sent to [facility]. Check your testicles and groin daily for any skin changes. Return to the ER for fevers, breakdown of skin, rapidly worsening pain, new chest pain, shortness of breath, abdominal pain, swelling of your testicles or pain deep in your testicles, if you are unable to urinate or there is no urine draining from her catheter or other new or concerning symptoms. Prescriptions: New zinc oxide [Boudreauxs Butt Paste] 40 % ointment 1 applic topical 6XD PRN (Reason: skin irritation) Qty: 56 RF: 0 nystatin 100,000 unit/gram cream 1 applic topical TID Qty: 30 RF: 0 No Action torsemide 20 mg tablet 40 mg PO DAILY PRN (Reason: edema) Qty: 60 RF: 2 citalopram 20 mg tablet 20 mg PO DAILY Qty: 90 RF: 3 hydrocodone-acetaminophen 7.5-325 mg tablet 1 tab PO BID PRN (Reason: pain) Qty: 60 RF: 0 glimepiride 1 mg tablet 1 mg PO DAILY Qty: 90 RF: 1 doxazosin 4 mg Tablet 4 mg PO BEDTIME RF: 0 duloxetine 60 mg capsule,delayed release(DR/EC) 60 mg PO BID RF: 0 polyethylene glycol 3350 17 gram/dose Powder 17 g PO DAILY PRN (Reason: Constipation) RF: 0 silver sulfadiazine [SSD] 1 % cream 1 applic TOPICAL TID RF: 0 lidocaine 5 % adhesive patch,medicated 1 patch TOP DAILY Qty: 30 RF: 0 pantoprazole 40 mg Tablet,Delayed Release (Dr/Ec) 40 mg PO DAILY RF: 0 allopurinol [Zyloprim] 100 mg tablet 200 mg PO DAILY RF: 0 melatonin 3 mg Tablet 6 mg PO BEDTIME RF: 0 acetaminophen 325 mg Tablet 650 mg PO Q6HR PRN (Reason: Fever/Mild Pain (1-3)) Qty: 30 RF: 0 lisinopril 5 mg Tablet 5 mg PO DAILY Qty: 30 RF: 0 multivitamin [Tab-A-Isidro] Tablet 1 tab PO DAILY Qty: 30 RF: 0 lorazepam 0.5 mg Tablet 0.5 mg PO Q4HR PRN (Reason: Anxiety) Qty: 90 RF: 0 docusate sodium [Colace] 100 mg capsule 100 mg PO DAILY Qty: 10 RF: 0 Referrals: Mariano Keller MD [Primary Care Provider] -
[2020-03-14 09:00] VITALS: PULSE 69; O2SAT 96
[2020-03-14 09:04] VITALS: BP 182/79; PULSE 70; O2SAT 99
[2020-03-14 09:16] LABS: Appearance Urine UA CLEAR; Bacteria Urine None Seen; Bilirubin Urine UA NEGATIVE (NEGATIVE); Color Urine UA YELLOW; Glucose Urine UA NEGATIVE (Negative); Ketones Urine UA NEGATIVE (NEGATIVE); Leukocyte Esterase Urine UA TRACE (NEGATIVE); Nitrite Urine UA NEGATIVE (Negative); Occult Blood Urine UA 3+ (Negative); Protein Urine UA TRACE (Negative); Specific Gravity Urine UA <=1.005 (1.000-1.035); Urobilinogen Urine UA 0.2 E.U./dL (0.2)
[2020-03-14 09:40] LABS: Culture Indicated Urine Cult Not Indicated; RBC Urine 5-10/HPF (0-5/HPF); Squamous Epithelial Cell Urine 0-1 /HPF (0-5/HPF); WBC Urine 1-5/HPF (0-5/HPF)
[2020-03-14 10:06] VITALS: BP 142/79; PULSE 74; RESP 18; O2SAT 97
== END 2020-03-14 10:32 | disposition home or self-care (01) ==
PROVIDERS: Emergency Provider Emergency Medicine; PCP Student in an Organized Health Care Education/Training Program
DX: K62.89 Other specified diseases of anus and rectum (principal); R23.8 Other skin changes; K59.00 Constipation, unspecified; N18.4 Chronic kidney disease, stage 4 (severe); E66.9 Obesity, unspecified; Z68.41 Body mass index [BMI] 40.0-44.9, adult
CPT/HCPCS: 81001; 99281; 99282

== ENCOUNTER 2020-03-19 10:52 | Outpatient (CLI) | payer OTHER, MEDICARE, MEDICAID, SELFPAY ==
[2020-01-24 15:17] VITALS: PULSE 56; RESP 16; O2SAT 100; BMI 42.2
--- NOTE | 2020-03-19 13:35 | OT.OP.EVAL ---
Visit Care Team Role Provider Type Mariano Keller MD Attending Provider Physician Primary Care Provider Referring Provider Specialty: Internal Medicine Address: [address] [place] [address], [address], [address] Email: [email or web address]
== END 2020-05-01 09:09 | disposition home or self-care (01) ==
LOC: OT 10:55
PROVIDERS: PCP Student in an Organized Health Care Education/Training Program; Referring Provider Student in an Organized Health Care Education/Training Program; Visit Provider Student in an Organized Health Care Education/Training Program
DX: Z87.81 Personal history of (healed) traumatic fracture (principal); I87.2 Venous insufficiency (chronic) (peripheral); E66.01 Morbid (severe) obesity due to excess calories
CPT/HCPCS: 97166; 97535

== ENCOUNTER → 2020-03-23 12:41 | Outpatient (CLI) | payer MEDICARE, MEDICAID, SELFPAY ==
[2020-03-23 12:36] VITALS: PULSE 56; RESP 16; O2SAT 100; BMI 42.2
[2020-03-23 13:03] LABS: Add Manual Diff / Slide Review NO; Basophils Absolute Auto 0 /uL (0-100); Basophils Percent Auto 0.6 % (0-2); Eosinophils Absolute Auto 400 /uL (0-450); Hemoglobin 10.7 g/dL (13.5-17.5); Lymphocytes Absolute Auto 800 /uL (1100-4500); Lymphocytes Percent Auto 8.4 % (25-40); Mean Corpuscular HGB Conc 32.4 % (30-36); Mean Corpuscular Hemoglobin 29.7 PG (26-34); Mean Corpuscular Volume 91.8 fL (80-100); Monocytes Absolute Auto 700 /uL (0-900); Monocytes Percent Auto 8.1 % (3-14); Neutrophils Absolute Auto 7100 /uL (1500-7000); Neutrophils Percent Auto 78.9 % (50-75); Platelet Count 222 X10^3/uL (150-400); Red Blood Cell Count 3.59 X10^6/uL (4.5-5.9)
[2020-03-23 13:18] LABS: Albumin 3.9 g/dL (3.5-5.0); BUN Creatinine Ratio 22.5 (6-22); Blood Urea Nitrogen 53 mg/dL (9-20); Calcium 8.5 mg/dL (8.4-10.2); Carbon Dioxide 34 mmol/L (22-32); Chloride 95 mmol/L (98-107); Estimated Glomerular Filt Rate 27.6 mL/min (>60); Glucose 168 mg/dL (80-110); HEMOLYSIS < 15 (0-50); Potassium 4.3 mmol/L (3.4-5.1); Sodium 133 mmol/L (137-145)
== END ==
PROVIDERS: Internal Medicine; PCP Student in an Organized Health Care Education/Training Program; Referring Provider Student in an Organized Health Care Education/Training Program; Visit Provider Internal Medicine Nephrology
DX: N18.4 Chronic kidney disease, stage 4 (severe) (principal); D63.1 Anemia in chronic kidney disease
CPT/HCPCS: 36415; 80069; 85025

== ENCOUNTER → 2020-03-25 10:22 | Outpatient (CLI) | payer MEDICARE, MEDICAID, SELFPAY ==
[2020-03-23 12:36] VITALS: PULSE 56; RESP 16; O2SAT 100; BMI 42.2
[2020-03-25 11:06] VITALS: BP 138/82; PULSE 66; RESP 18; TEMP 36.8
[2020-03-25] MEDS: DARBEPOETIN 500 MCG/ML SUBCUT (11:12)
== END ==
PROVIDERS: PCP Student in an Organized Health Care Education/Training Program; Referring Provider Student in an Organized Health Care Education/Training Program; Visit Provider Internal Medicine
DX: E11.22 Type 2 diabetes mellitus with diabetic chronic kidney disease (principal); I12.9 Hypertensive chronic kidney disease with stage 1 through stage 4 chronic kidney disease, or unspecified chronic kidney disease; N18.4 Chronic kidney disease, stage 4 (severe); D63.1 Anemia in chronic kidney disease
CPT/HCPCS: 87070; 87077; 87102; 87147; 87186; 87205; 96372; 99214; J0881; M1145

== ENCOUNTER → 2020-03-25 13:37 | Outpatient (CLI) | payer MEDICARE, MEDICAID, SELFPAY ==
[2020-03-23 12:36] VITALS: PULSE 56; RESP 16; O2SAT 100; BMI 42.2
== END ==
PROVIDERS: PCP Student in an Organized Health Care Education/Training Program; Referring Provider Student in an Organized Health Care Education/Training Program; Visit Provider Family Medicine
DX: I87.2 Venous insufficiency (chronic) (peripheral) (principal); E11.622 Type 2 diabetes mellitus with other skin ulcer; L97.821 Non-pressure chronic ulcer of other part of left lower leg limited to breakdown of skin; D63.8 Anemia in other chronic diseases classified elsewhere; L03.116 Cellulitis of left lower limb; F10.20 Alcohol dependence, uncomplicated
CPT/HCPCS: 87070; 87075; 87077; 87102; 87147; 87186; 87205; 99214

== ENCOUNTER → 2020-04-06 15:09 | Outpatient (CLI) | payer MEDICARE, MEDICAID, SELFPAY | PROVIDERS: PCP Student in an Organized Health Care Education/Training Program; Referring Provider Student in an Organized Health Care Education/Training Program; Visit Provider Family Medicine | DX: I87.2 Venous insufficiency (chronic) (peripheral) (principal); L97.821 Non-pressure chronic ulcer of other part of left lower leg limited to breakdown of skin; L97.811 Non-pressure chronic ulcer of other part of right lower leg limited to breakdown of skin; F10.20 Alcohol dependence, uncomplicated; B95.62 Methicillin resistant Staphylococcus aureus infection as the cause of diseases classified elsewhere | CPT/HCPCS: 29581; 99214 ==

== ENCOUNTER → 2020-04-28 13:01 | Outpatient (CLI) | payer MEDICARE, MEDICAID, SELFPAY ==
[2020-03-23 12:36] VITALS: PULSE 56; RESP 16; O2SAT 100; BMI 42.2
[2020-04-28 13:18] VITALS: BP 155/77; PULSE 77; RESP 18; TEMP 36.6; O2SAT 99
[2020-04-28 13:20] LABS: Add Manual Diff / Slide Review NO; Basophils Absolute Auto 0 /uL (0-100); Basophils Percent Auto 0.3 % (0-2); Eosinophils Absolute Auto 500 /uL (0-450); Eosinophils Percent Auto 5.3 % (2-4); Hemoglobin 9.9 g/dL (13.5-17.5); Lymphocytes Absolute Auto 600 /uL (1100-4500); Lymphocytes Percent Auto 6.5 % (25-40); Mean Corpuscular HGB Conc 32.1 % (30-36); Mean Corpuscular Hemoglobin 28.4 PG (26-34); Mean Corpuscular Volume 88.6 fL (80-100); Monocytes Absolute Auto 700 /uL (0-900); Monocytes Percent Auto 7.4 % (3-14); Neutrophils Absolute Auto 7800 /uL (1500-7000); Neutrophils Percent Auto 80.5 % (50-75); Platelet Count 210 X10^3/uL (150-400); Red Cell Distribution Width 17.1 % (11.6-14.8); White Blood Cell Count 9.8 X10^3/uL (4.5-11.0)
[2020-04-28 13:31] LABS: Alanine Aminotransferase 11 IU/L (<50); Albumin 3.8 g/dL (3.5-5.0); Albumin Globulin Ratio 1.2 (1.0-2.8); Alkaline Phosphatase 129 U/L (38-126); Aspartate Aminotransferase 21 IU/L (17-59); BUN Creatinine Ratio 25.4 (6-22); Bilirubin Total 0.5 mg/dL (0.2-1.3); Blood Urea Nitrogen 58 mg/dL (9-20); Calcium 7.7 mg/dL (8.4-10.2); Carbon Dioxide 29 mmol/L (22-32); Chloride 97 mmol/L (98-107); Estimated Glomerular Filt Rate 28.7 mL/min (>60); Globulin 3.1 g/dL (1.7-4.1); Glucose 158 mg/dL (80-110); HEMOLYSIS < 15 (0-50); Potassium 3.7 mmol/L (3.4-5.1); Sodium 133 mmol/L (137-145); Total Protein 6.9 g/dL (6.3-8.2)
[2020-04-28 13:51] LABS: HEMOLYSIS < 15 (0-50); Iron 40 ug/dL (49-181)
[2020-04-28] MEDS: DARBEPOETIN 500 MCG/ML SUBCUT (13:52)
[2020-04-28 14:01] LABS: Percent Iron Saturation 17 % (20-50); Total Iron Binding Capacity 239 ug/dL (261-462); Transferrin 159 mg/dL (206-381)
== END ==
PROVIDERS: PCP Student in an Organized Health Care Education/Training Program; Referring Provider Student in an Organized Health Care Education/Training Program; Visit Provider Internal Medicine
DX: E11.22 Type 2 diabetes mellitus with diabetic chronic kidney disease (principal); I12.9 Hypertensive chronic kidney disease with stage 1 through stage 4 chronic kidney disease, or unspecified chronic kidney disease; N18.4 Chronic kidney disease, stage 4 (severe); D63.1 Anemia in chronic kidney disease
CPT/HCPCS: 80053; 83540; 83550; 85025; 96372; J0881

== ENCOUNTER 2020-05-03 14:46 | Emergency (ER) | payer MEDICARE, MEDICAID, SELFPAY ==
[2020-03-23 12:36] VITALS: PULSE 56; RESP 16; O2SAT 100; BMI 42.2
--- NOTE | 2020-05-03 14:56 | DI.RAD.S_ITS ---
PROCEDURE: XR CHEST 1V INDICATIONS: Shortness of breath TECHNIQUE: One view of the chest was acquired. COMPARISON: [facility], , XR CHEST 1V, 02/28/2020, 11:21. FINDINGS: Surgical changes and devices: Cervical thoracic fusion hardware is present, as before. Fractured hardware within the lower aspect of the hardware is present, as before. Lungs and pleura: Lungs are clear. No pleural effusions or pneumothorax. Mediastinum: Mediastinal contours appear normal. Heart size is enlarged. Bones and chest wall: No suspicious bony lesions. Overlying soft tissues appear unremarkable. IMPRESSION: 1. No acute process. 2. No change in fractured cervical thoracic fusion hardware. Dictated by: Varun Mcwilliams M.D. on 05/03/2020 at 14:38 Approved by: Varun Mcwilliams M.D. on 05/03/2020 at 14:38
[2020-05-03 14:58] VITALS: BP 126/58; PULSE 73; RESP 16; TEMP 36.4; O2SAT 96; BMI 40.1
--- NOTE | 2020-05-03 14:59 | ED.GENADULT ---
HPI - General Adult General Chief complaint: Weakness Stated complaint: UTI Time Seen by Provider: 05/03/20 14:47 Source: patient, family and EMS Mode of arrival: EMS Limitations: no limitations History of Present Illness HPI narrative: Patient is a 69-year-old male. Has several chronic medical issues. Does spend most of his day in a wheelchair. He does have bilateral lower extremity swelling that has been getting worse over the past couple days. He does see a rod placer because of this. Patient is brought to the emergency department today by EMS for evaluation of weakness over the past couple days. He does express some shortness of breath with exertion. States that today he slid out of his wheelchair. He states he was bending over and fell out. His family bedside states that he has a difficult time getting around because of the swelling in his lower extremity. He just had his to water pills increased at the end of last week because of the swelling. He does have chronic lower extremity ulcers. He denies any chest pain. No abdominal symptoms. He does have some dysuria and has had urinary tract infections in the past. Related Data Home Medications Medication Instructions Recorded Confirmed doxazosin 4 mg PO BEDTIME 06/07/18 04/29/20 duloxetine 60 mg PO BID 09/28/18 04/29/20 polyethylene glycol 3350 17 g PO DAILY PRN 09/28/18 04/29/20 silver sulfadiazine [SSD] 1 applic TOPICAL TID 11/12/18 04/29/20 melatonin 6 mg PO BEDTIME 09/12/19 04/29/20 amlodipine [Norvasc] 10 mg PO DAILY 03/25/20 04/29/20 carvedilol [Coreg] 12.5 mg PO BID 03/25/20 04/29/20 Previous Rx's Medication Instructions Recorded docusate sodium [Colace] 100 mg PO DAILY #10 cap 01/26/20 citalopram 20 mg tablet 20 mg PO DAILY #90 tab 02/12/20 glimepiride 1 mg tablet 1 mg PO DAILY #90 tab 03/13/20 zinc oxide [Boudreauxs Butt Paste] 1 applic TOPICAL 6XD PRN #56 g 03/14/20 finasteride 5 mg tablet 5 mg PO DAILY #90 tab 03/23/20 torsemide 20 mg tablet 40 mg PO DAILY PRN #60 tab 04/20/20 allopurinol 100 mg tablet 200 mg PO DAILY #180 tab 04/24/20 hydrocodone 7.5 mg-acetaminophen 1 tab PO BID PRN #60 tab 04/29/20 325 mg tablet lidocaine 5 % topical patch 1 patch TOP DAILY #15 ea 04/29/20 lorazepam 0.5 mg tablet 0.5 mg PO DAILY PRN #20 tab 04/29/20 nitrofurantoin monohyd/m-cryst 100 mg PO Q12H 5 Days #10 cap 05/03/20 [Macrobid] Allergies Allergy/AdvReac Type Severity Reaction Status Date / Time latex Allergy Mild IRRITATION Verified 04/29/20 13:38 carisoprodol [From Soma] Allergy Verified 04/29/20 13:38 hydromorphone Allergy Verified 04/29/20 13:38 Sulfa (Sulfonamide AdvReac Mild N&V 1HOUR Verified 04/29/20 13:38 Antibiotics) AFTER RX, THINKS IT IS RELATED Review of Systems Constitutional Constitutional: Denies fever(s) and Denies headache(s) ENT Ears, Nose, Mouth, and Throat: Denies headache(s) Cardiovascular Cardiovascular: Denies chest pain and Reports dyspnea on exertion Respiratory Respiratory: Reports dyspnea on exertion Gastrointestinal Gastrointestinal: Denies abdominal pain, Denies nausea and Denies vomiting Genitourinary Genitourinary: Reports dysuria Genitourinary: Reports dysuria Integumentary/Breasts Skin/Breast: Reports lesions and Reports rash Neurologic Neurologic: Denies behavioral changes and Denies headache(s) Psychiatric Psychiatric: Denies behavioral changes Hematologic/Lymphatic On Anticoagulants: No Allergic/Immunologic Allergic/Immunologic: Denies urticaria Patient History Medical History Arthritis BPH w urinary obs/LUTS Cellulitis of left leg Chronic kidney disease, stage 4 (severe) Chronic UTI Depression Diabetes Duodenal ulcer History of cervical fracture History of urinary retention Hyperparathyroidism Osteoarthritis Peripheral vascular disease Renal disease Urge incontinence Surgical History (Updated 04/22/20 @ 08:52 by Loretta Quiroga) H/O cervical spine surgery History of back surgery History of colectomy History of colon surgery History of fusion of cervical spine History of knee replacement Family History (System 04/22/20 @ 08:52 by Loretta Quiroga) Mother Kidney failure Diabetes mellitus Social History marital status: number of children: 4 household members: none occupational status: employed Smoking Status: Former smoker alcohol intake: current caffeine: Yes Smoking Status: Former smoker alcohol intake frequency: 0-2 drinks per day Alcohol type: beer Substance Use Type: does not use Exam Initial Vital Signs Initial Vital Signs: Vital Signs Temperature 97.6 F 05/03/20 14:58 Pulse Rate 73 05/03/20 14:58 Respiratory Rate 16 05/03/20 14:58 Blood Pressure 126/58 L 05/03/20 14:58 Pulse Oximetry 96 05/03/20 14:58 Const General: cooperative Limitations: mental status not altered HENMT Head: normal to inspection and normocephalic Resp Effort & Inspection: normal respiratory effort Auscultation: clear to auscultation bilaterally Cardio Rate: regular rate Heart Sounds: murmur GI Inspection: non-distended Palpation: soft Skin Other: Patient does have crusting and ulceration to the upper portion of his right posterior thigh. No surrounding erythema Neuro General: patient alert, patient awake and patient oriented x3 Cognition: normal cognition Speech: speech normal Extrem Other: Patient does have significant bilateral lower extremity edema Psych Appearance: disheveled Course Orders Ordered: ED Orders 05/03/20 14:56 XR chest 1V Stat Complete Blood Count AUTO DIFF Stat Comprehensive Metabolic Panel Stat Lipase Stat EKG-12 Lead Stat 05/03/20 14:58 NT-proBNP (BNP-Adult 18+) Stat Troponin & CK Cardiac Panel Stat 05/03/20 16:42 Urine Culture Stat Urine Microscopic Stat Discontinued Medications Nitrofurantoin Macrocrystals (Nitrofurantoin Er 100 Mg Capsule) 100 mg PO NOW ONE Stop: 05/03/20 17:33 Last Admin: 05/03/20 17:36 Dose: 100 mg Documented by: MANJULA Vital Signs Vital signs: Vital Signs - 8 hr 05/03/20 14:58 05/03/20 15:00 05/03/20 15:30 Temperature 97.6 F Pulse Rate 73 74 72 Respiratory Rate 16 22 17 Blood Pressure 126/58 L 136/64 141/64 H Pulse Oximetry 96 96 96 05/03/20 17:00 05/03/20 17:50 Temperature 98.2 F Pulse Rate 73 79 Respiratory Rate 16 20 Blood Pressure 160/78 H 153/69 H Pulse Oximetry 95 95 Medical Decision Making Lab Data Lab results reviewed: Yes I reviewed the patient's lab results. Result diagrams: 05/03/20 14:56 05/03/20 14:56 Labs: Lab Results 05/03/20 05/03/20 05/03/20 Range/Units 14:56 14:56 14:58 WBC 9.5 (4.5-11.0) X10^3/uL RBC 3.60 L (4.5-5.9) X10^6/uL Hgb 10.3 L (13.5-17.5) g/dL Hct 32.2 L (41-53) % MCV 89.5 (80-100) fL MCH 28.6 (26-34) PG MCHC 31.9 (30-36) % RDW 17.3 H (11.6-14.8) % Plt Count 227 (150-400) X10^3/uL Neut % (Auto) 78.3 H (50-75) % Lymph % (Auto) 6.4 L (25-40) % [place] % (Auto) 9.5 (3-14) % Eos % (Auto) 5.4 H (2-4) % Baso % (Auto) 0.4 (0-2) % Neut # (Auto) 7400 H (7965-9631) /uL Lymph # (Auto) 600 L (2833-2347) /uL [place] # (Auto) 900 (0-900) /uL Eos # (Auto) 500 H (0-450) /uL Baso # (Auto) 0 (0-100) /uL Sodium 136 L (137-145) mmol/L Potassium 3.5 (3.4-5.1) mmol/L Chloride 99 (98-107) mmol/L Carbon Dioxide 29 (22-32) mmol/L BUN 54 H (9-20) mg/dL Creatinine 2.82 H (0.66-1.25) mg/dL Estimated GFR 22.5 L (>60) mL/min BUN/Creatinine Ratio 19.1 (6-22) Glucose 174 H (80-110) mg/dL Calcium 7.9 L (8.4-10.2) mg/dL Total Bilirubin 0.6 (0.2-1.3) mg/dL AST 22 (17-59) IU/L ALT 12 (<50) IU/L Alkaline Phosphatase 131 H (38-126) U/L Total Creatine Kinase 113 (55-170) U/L CK-MB (CK-2) 3.22 H (<2.37) ng/mL CK-MB (CK-2) Rel Index 2.8 (1.5-5.0) % Troponin I < 0.012 (0.01-0.034) ng/mL NT-Pro-B Natriuret Pep 1600 H (<125) pg/mL Total Protein 7.0 (6.3-8.2) g/dL Albumin 3.9 (3.5-5.0) g/dL Globulin 3.1 (1.7-4.1) g/dL Albumin/Globulin Ratio 1.3 (1.0-2.8) Lipase 33 (23-300) U/L Urine RBC (0-5/HPF) Urine WBC (0-5/HPF) Ur Squamous Epith Cells (0-5/HPF) Urine Bacteria (None) Ur Culture Indicated? 05/03/20 Range/Units 16:42 WBC (4.5-11.0) X10^3/uL RBC (4.5-5.9) X10^6/uL Hgb (13.5-17.5) g/dL Hct (41-53) % MCV (80-100) fL MCH (26-34) PG MCHC (30-36) % RDW (11.6-14.8) % Plt Count (150-400) X10^3/uL Neut % (Auto) (50-75) % Lymph % (Auto) (25-40) % [place] % (Auto) (3-14) % Eos % (Auto) (2-4) % Baso % (Auto) (0-2) % Neut # (Auto) (5924-2351) /uL Lymph # (Auto) (4574-7024) /uL [place] # (Auto) (0-900) /uL Eos # (Auto) (0-450) /uL Baso # (Auto) (0-100) /uL Sodium (137-145) mmol/L Potassium (3.4-5.1) mmol/L Chloride (98-107) mmol/L Carbon Dioxide (22-32) mmol/L BUN (9-20) mg/dL Creatinine (0.66-1.25) mg/dL Estimated GFR (>60) mL/min BUN/Creatinine Ratio (6-22) Glucose (80-110) mg/dL Calcium (8.4-10.2) mg/dL Total Bilirubin (0.2-1.3) mg/dL AST (17-59) IU/L ALT (<50) IU/L Alkaline Phosphatase (38-126) U/L Total Creatine Kinase (55-170) U/L CK-MB (CK-2) (<2.37) ng/mL CK-MB (CK-2) Rel Index (1.5-5.0) % Troponin I (0.01-0.034) ng/mL NT-Pro-B Natriuret Pep (<125) pg/mL Total Protein (6.3-8.2) g/dL Albumin (3.5-5.0) g/dL Globulin (1.7-4.1) g/dL Albumin/Globulin Ratio (1.0-2.8) Lipase (23-300) U/L Urine RBC 0-1/hpf (0-5/HPF) Urine WBC 30-100/hpf H (0-5/HPF) Ur Squamous Epith Cells 0-1 /hpf (0-5/HPF) Urine Bacteria Many (>30) H (None) Ur Culture Indicated? Specimen cultured Urine Dip Bedside Urine Glucose Negative Bedside Urine Bilirubin - Negative Bedside Urine Ketone - Negative Urine Specific [place] 1.020 Bedside Urine Occult Blood +/- Bedside Urine pH 6 Bedside Urine Protein - Negative Bedside Urine Urobilinogen - Negative Bedside Urine Nitrite + Positive Bedside Urine Leukocytes ++ 125 Esterase Point of care testing: Urine Dip Bedside Urine Glucose Negative Bedside Urine Bilirubin - Negative Bedside Urine Ketone - Negative Urine Specific [place] 1.020 Bedside Urine Occult Blood +/- Bedside Urine pH 6 Bedside Urine Protein - Negative Bedside Urine Urobilinogen - Negative Bedside Urine Nitrite + Positive Bedside Urine Leukocytes ++ 125 Esterase Imaging Data Chest x-ray: Radiologist's Impression: [address] [id number] ReportSigned Patient: Cristóbal Tubbs WMR#: [id number]: [id number]/Sex: 69 / MDate of Service: 05/03/20Loc: EDAccession Number: [id number] Procedure: XR chest 1V Ordering Provider: Jim Bal D.O. PROCEDURE: XR CHEST 1V INDICATIONS: Shortness of breath TECHNIQUE: One view of the chest was acquired. COMPARISON: [facility], CR, XR CHEST 1V, 02/28/2020, 11:21. FINDINGS: Surgical changes and devices: Cervical thoracic fusion hardware is present, as before. Fractured hardware within the lower aspect of the hardware is present, as before. Lungs and pleura: Lungs are clear. No pleural effusions or pneumothorax. Mediastinum: Mediastinal contours appear normal. Heart size is enlarged. Bones and chest wall: No suspicious bony lesions. Overlying soft tissues appear unremarkable. IMPRESSION: 1. No acute process. 2. No change in fractured cervical thoracic fusion hardware. Dictated by: Varun Mcwilliams M.D. on 05/03/2020 at 14:38 Approved by: Varun Mcwilliams M.D. on 05/03/2020 at 14:38 ECG Data Attestation: I personally reviewed and interpreted this ECG as follows: Prior ECG tracings: available for review Interpretation: Sinus rhythm Ventricular rate of 73 Normal axis Normal QRS QTC [address] T wave changes Similar to EKG from February 2020 MDM Narrative Medical decision making narrative: Patient has chronic lower extremity swelling and ulcers. He does see wound care and has an appointment with him tomorrow. He does have what appear to be pressure sores on his buttocks that were found today. They do not appear to be infected. He does have a nitrite positive urine and states that he feels like he has urinary tract infection. Review of his prior urine culture shows E coli that does have resistance to many antibiotics however does appear to be susceptible to Macrobid. His urine was cultured today. Will send him home with Macrobid based on prior cultures. Was given a dose here in the ER and a prescription for the remainder of the course was electronically transmitted to the pharmacy of his choice. He is going to talk with wound care about his pressure ulcers tomorrow. He is going to contact his primary doctor and also his other specialists for further evaluation of his other issues. He expressed understanding and agreement plan. Discharge Plan Departure Patient Disposition: Home Clinical Impression: Urinary tract infection, Pressure sore, Bilateral edema of lower extremity Instructions: DI for Urinary Tract Infection (UTI) Activity Restrictions/Additional Instructions: Recommend that you continue all of your medications as directed. [facility]. Recommend you keep all of your scheduled medical appointments. You also have what appears to be the beginnings of pressure sores and I do recommend that when you see wound care tomorrow you bring this up to them so they can evaluated. Return to the emergency department for any new or worsening symptoms Prescriptions: New nitrofurantoin monohyd/m-cryst [Macrobid] 100 mg capsule 100 mg PO Q12H 5 Days Qty: 10 RF: 0 No Action citalopram 20 mg tablet 20 mg PO DAILY Qty: 90 RF: 3 glimepiride 1 mg tablet 1 mg PO DAILY Qty: 90 RF: 1 torsemide 20 mg tablet 40 mg PO DAILY PRN (Reason: edema) Qty: 60 RF: 2 allopurinol [Zyloprim] 100 mg tablet 200 mg PO DAILY Qty: 180 RF: 1 lorazepam 0.5 mg tablet 0.5 mg PO DAILY PRN (Reason: Anxiety) Qty: 20 RF: 5 hydrocodone-acetaminophen 7.5-325 mg tablet 1 tab PO BID PRN (Reason: pain) Qty: 60 RF: 0 lidocaine 5 % adhesive patch,medicated 1 patch TOP DAILY Qty: 15 RF: 11 doxazosin 4 mg Tablet 4 mg PO BEDTIME RF: 0 duloxetine 60 mg capsule,delayed release(DR/EC) 60 mg PO BID RF: 0 polyethylene glycol 3350 17 gram/dose Powder 17 g PO DAILY PRN (Reason: Constipation) RF: 0 silver sulfadiazine [SSD] 1 % cream 1 applic TOPICAL TID RF: 0 carvedilol [Coreg] 12.5 mg Tablet 12.5 mg PO BID RF: 0 amlodipine [Norvasc] 10 mg Tablet 10 mg PO DAILY RF: 0 melatonin 3 mg Tablet 6 mg PO BEDTIME RF: 0 docusate sodium [Colace] 100 mg capsule 100 mg PO DAILY Qty: 10 RF: 0 zinc oxide [Boudreauxs Butt Paste] 40 % ointment 1 applic topical 6XD PRN (Reason: skin irritation) Qty: 56 RF: 0 finasteride 5 mg tablet 5 mg PO DAILY Qty: 90 RF: 3 Referrals: Mariaon Keller MD [Primary Care Provider] -
[2020-05-03 15:00] VITALS: BP 136/64; PULSE 74; RESP 22; O2SAT 96
[2020-05-03 15:02] LABS: Add Manual Diff / Slide Review NO; Basophils Absolute Auto 0 /uL (0-100); Basophils Percent Auto 0.4 % (0-2); Eosinophils Absolute Auto 500 /uL (0-450); Eosinophils Percent Auto 5.4 % (2-4); Hematocrit 32.2 % (41-53); Hemoglobin 10.3 g/dL (13.5-17.5); Lymphocytes Absolute Auto 600 /uL (1100-4500); Lymphocytes Percent Auto 6.4 % (25-40); Mean Corpuscular HGB Conc 31.9 % (30-36); Mean Corpuscular Hemoglobin 28.6 PG (26-34); Mean Corpuscular Volume 89.5 fL (80-100); Monocytes Absolute Auto 900 /uL (0-900); Monocytes Percent Auto 9.5 % (3-14); Neutrophils Absolute Auto 7400 /uL (1500-7000); Neutrophils Percent Auto 78.3 % (50-75); Platelet Count 227 X10^3/uL (150-400); Red Cell Distribution Width 17.3 % (11.6-14.8); White Blood Cell Count 9.5 X10^3/uL (4.5-11.0)
[2020-05-03 15:13] LABS: Creatine Kinase 113 U/L (55-170)
[2020-05-03 15:13] LABS: Alanine Aminotransferase 12 IU/L (<50); Albumin 3.9 g/dL (3.5-5.0); Albumin Globulin Ratio 1.3 (1.0-2.8); Alkaline Phosphatase 131 U/L (38-126); Aspartate Aminotransferase 22 IU/L (17-59); BUN Creatinine Ratio 19.1 (6-22); Bilirubin Total 0.6 mg/dL (0.2-1.3); Blood Urea Nitrogen 54 mg/dL (9-20); Calcium 7.9 mg/dL (8.4-10.2); Carbon Dioxide 29 mmol/L (22-32); Chloride 99 mmol/L (98-107); Estimated Glomerular Filt Rate 22.5 mL/min (>60); Globulin 3.1 g/dL (1.7-4.1); Glucose 174 mg/dL (80-110); HEMOLYSIS < 15 (0-50); Lipase 33 U/L (23-300); Potassium 3.5 mmol/L (3.4-5.1); Sodium 136 mmol/L (137-145)
[2020-05-03 15:24] LABS: NT-proBNP (BNP-Adult 18+) 1600 pg/mL (<125); Troponin I < 0.012 ng/mL (0.01-0.034)
[2020-05-03 15:28] LABS: CKMB % Relative Index 2.8 % (1.5-5.0); Creatine Kinase MB 3.22 ng/mL (<2.37)
[2020-05-03 15:30] VITALS: BP 141/64; PULSE 72; RESP 17; O2SAT 96
--- NOTE | 2020-05-03 15:38 | PC.NURSE ---
broken skin on right gluteal cleft, perinium, and left gluteal cleft. redness around the area and dry flaking skin around wound noted. Dr. Bal notified. Cleaned and padded dressing placed to site for cushion. Clean brief placed.
[2020-05-03 17:00] VITALS: BP 160/78; PULSE 73; RESP 16; O2SAT 95
[2020-05-03 17:10] LABS: RBC Urine 0-1/HPF (0-5/HPF); WBC Urine 30-100/HPF (0-5/HPF)
[2020-05-03 17:11] LABS: Bacteria Urine Many (>30); Culture Indicated Urine Specimen Cultured; Squamous Epithelial Cell Urine 0-1 /HPF (0-5/HPF)
[2020-05-03] MEDS: NITROFURANTOIN ER 100 MG CAPSULE PO (17:36)
[2020-05-03 17:50] VITALS: BP 153/69; PULSE 79; RESP 20; TEMP 36.8; O2SAT 95
== END 2020-05-03 18:31 | disposition home or self-care (01) ==
PROVIDERS: Emergency Provider Emergency Medicine; PCP Student in an Organized Health Care Education/Training Program
DX: N39.0 Urinary tract infection, site not specified (principal); L89.309 Pressure ulcer of unspecified buttock, unspecified stage; R60.0 Localized edema; R06.02 Shortness of breath; R30.0 Dysuria; R21 Rash and other nonspecific skin eruption
CPT/HCPCS: 71045; 80053; 81003; 81015; 82550; 82553; 83690; 83880; 84484; 85025; 87077; 87086; 87186; 93005; 99283; 99284

== ENCOUNTER → 2020-05-04 11:19 | Outpatient (CLI) | payer MEDICARE, MEDICAID, SELFPAY ==
[2020-05-04 11:08] VITALS: PULSE 56; RESP 16; O2SAT 100; BMI 42.2
== END ==
PROVIDERS: PCP Student in an Organized Health Care Education/Training Program; Referring Provider Student in an Organized Health Care Education/Training Program; Visit Provider Family Medicine
DX: I87.2 Venous insufficiency (chronic) (peripheral) (principal); L97.821 Non-pressure chronic ulcer of other part of left lower leg limited to breakdown of skin; L97.811 Non-pressure chronic ulcer of other part of right lower leg limited to breakdown of skin; F10.20 Alcohol dependence, uncomplicated; N18.4 Chronic kidney disease, stage 4 (severe); D63.8 Anemia in other chronic diseases classified elsewhere; Z60.2 Problems related to living alone; Z59.8 Other problems related to housing and economic circumstances; Z86.14 Personal history of Methicillin resistant Staphylococcus aureus infection; L08.9 Local infection of the skin and subcutaneous tissue, unspecified; N39.0 Urinary tract infection, site not specified; R60.0 Localized edema
CPT/HCPCS: 29581; 99215

== ENCOUNTER 2020-05-04 13:09 | Emergency (ER) | payer MEDICARE, MEDICAID, SELFPAY ==
[2020-05-04 11:08] VITALS: PULSE 56; RESP 16; O2SAT 100; BMI 42.2
[2020-05-04 13:10] VITALS: BP 160/74; PULSE 73; RESP 26; TEMP 36.6; O2SAT 97
--- NOTE | 2020-05-04 13:37 | DI.RAD.S_ITS ---
PROCEDURE: XR CHEST 1V INDICATIONS: sob TECHNIQUE: One view of the chest was acquired. COMPARISON: [facility], CR, XR CHEST 1V, 05/03/2020, 15:13. FINDINGS: Surgical changes and devices: Spinal fusion device in visualized portion of cervical spine is seen with fixation screws bilaterally at possibly T1 and T2 levels, suggest clinical correlation. Fixation hardware in lower thoracic and lumbar spine is also seen. Lungs and pleura: Lungs are clear. No pleural effusions or pneumothorax. Mediastinum: Mediastinal contours appear normal. Heart size is markedly enlarged. Bones and chest wall: No suspicious bony lesions. Overlying soft tissues appear unremarkable. IMPRESSION: No acute cardiopulmonary pathology. Fractured fixation hardware in lower cervical/upper thoracic spine, suggest clinical correlation. Dictated by: Ervin Love M.D. on 05/04/2020 at 14:27 Approved by: Ervin Love M.D. on 05/04/2020 at 14:28
--- NOTE | 2020-05-04 13:54 | ED_ITS ---
HPI - SOB/Dyspnea <Raquel Schrader, SQL SERVER DEVELOPER-BC - Last Filed: 05/04/20 16:32> General Chief Complaint: Shortness of Breath/Dyspnea Stated Complaint: Failure At Home Time Seen by Provider: 05/04/20 13:32 Source: patient and family Mode of arrival: Wheelchair Limitations: no limitations History of Present Illness HPI Narrative: The patient is a 69-year-old male former smoker with history of pressure sores, bilateral lower extremity edema, depression, hypertension and chronic kidney disease who presents with a chief complaint of being told to come to the emergency department for ?failure at home.He was seen in this emergency department yesterday and diagnosed with urinary tract infection. He was started on Macrobid according to old cultures. He then followed up with his wound care provider today, who stated that he should come to the emergency department because he is ?failing at home.The patient states that he has gained significant amount of weight the past few weeks, has been taking his torsemide. He states he feels no difference between yesterday and today. He denies any ch est pain or worsening shortness of breath. He states he is fatigued for usual. He states that he has been sitting in his wheelchair at home and not getting up to bed for the past few days to weeks. He is accompanied by his sister who states that he is slightly weaker today than yesterday. Yesterday the patient received a thorough evaluation, CBC CMP EKG, had a negative troponin BNP and urinalysis. The patient is adamant that he does not feel acutely worse today or any acute changes today. He states he is only here ?to get checked out.The patient's sister states that wound care was going to prescribe antibiotics for his wounds on his legs. Related Data Home Medications Medication Instructions Recorded Confirmed doxazosin 4 mg PO BEDTIME 06/07/18 04/29/20 duloxetine 60 mg PO BID 09/28/18 04/29/20 polyethylene glycol 3350 17 g PO DAILY PRN 09/28/18 04/29/20 silver sulfadiazine [SSD] 1 applic TOPICAL TID 11/12/18 04/29/20 melatonin 6 mg PO BEDTIME 09/12/19 04/29/20 amlodipine [Norvasc] 10 mg PO DAILY 03/25/20 04/29/20 carvedilol [Coreg] 12.5 mg PO BID 03/25/20 04/29/20 Previous Rx's Medication Instructions Recorded docusate sodium [Colace] 100 mg PO DAILY #10 cap 01/26/20 citalopram 20 mg tablet 20 mg PO DAILY #90 tab 02/12/20 glimepiride 1 mg tablet 1 mg PO DAILY #90 tab 03/13/20 zinc oxide [Boudreauxs Butt Paste] 1 applic TOPICAL 6XD PRN #56 g 03/14/20 finasteride 5 mg tablet 5 mg PO DAILY #90 tab 03/23/20 torsemide 20 mg tablet 40 mg PO DAILY PRN #60 tab 04/20/20 allopurinol 100 mg tablet 200 mg PO DAILY #180 tab 04/24/20 hydrocodone 7.5 mg-acetaminophen 1 tab PO BID PRN #60 tab 04/29/20 325 mg tablet lidocaine 5 % topical patch 1 patch TOP DAILY #15 ea 04/29/20 lorazepam 0.5 mg tablet 0.5 mg PO DAILY PRN #20 tab 04/29/20 nitrofurantoin monohyd/m-cryst 100 mg PO Q12H 5 Days #10 cap 05/03/20 [Macrobid] Allergies Allergy/AdvReac Type Severity Reaction Status Date / Time latex Allergy Mild IRRITATION Verified 05/04/20 13:39 carisoprodol [From Soma] Allergy Verified 05/04/20 13:39 hydromorphone Allergy Verified 05/04/20 13:39 Sulfa (Sulfonamide AdvReac Mild N&V 1HOUR Verified 05/04/20 13:39 Antibiotics) AFTER RX, THINKS IT IS RELATED Review of Systems <KEVIN South- - Last Filed: 05/04/20 16:32> Review of Systems Narrative: GENERAL: Denies chills, fatigue, malaise, fever, sweats. HEENT: Denies sinus pain, ear pain, sore throat, difficulty swallowing, dizziness. RESPIRATORY: See HPI CARDIOVASCULAR: Denies chest pain, palpitations, orthopnea, edema, GASTROINTESTINAL: Denies nausea, vomiting, abdominal pain, diarrhea, cons tipation, melena. : See HPI MUSCULOSKELETAL: denies weakness, joint pain, or bony pain SKIN: See HPI NEUROLOGIC: Denies weakness, headache, numbness, change in speech, confusion, seizures, incoordination. PSYCHIATRIC: No concerning psychosocial issues. 12 point review of systems is negative except for those stated above Patient History <MATEUSZ South - Last Filed: 05/04/20 16:32> Medical History Arthritis BPH w urinary obs/LUTS Cellulitis of left leg Chronic kidney disease, stage 4 (severe) Chronic UTI Depression Diabetes Duodenal ulcer History of cervical fracture History of urinary retention Hyperparathyroidism Osteoarthritis Peripheral vascular disease Renal disease Urge incontinence Surgical History H/O cervical spine surgery History of back surgery History of colectomy History of colon surgery History of fusion of cervical spine History of knee replacement Family History (System 04/22/20 @ 08:52 by Loretta Quiroga) Mother Kidney failure Diabetes mellitus Social History marital status: number of children: 4 household members: none occupational status: employed Smoking Status: Former smoker alcohol intake: current caffeine: Yes Smoking Status: Former smoker alcohol intake frequency: 0-2 drinks per day Alcohol type: beer Substance Use Type: does not use Exam <MATEUSZ South - Last Filed: 05/04/20 16:32> Narrative Exam Narrative: GENERAL: This is a discharge hold patient, in no acute distress HEAD: Atraumatic. Normocephalic. No temporal or scalp tenderness. EYES: Pupils equal round and reactive. Extraocular motions intact. No scleral icterus. No injection or drainage. ENT: Nose without bleeding, purulent drainage or septal hematoma. Wearing a mask. Airway patent. NECK: Trachea midline. No JVD or lymphadenopathy. Supple, nontender, no meningeal signs. CARDIOVASCULAR: Regular rate and rhythm RESPIRATORY: Diffuse expiratory wheezes to auscultation. Breath sounds equal bilaterally. No cough throughout your stay. GASTROINTESTINAL: Abdomen soft, non-tender, nondistended. No hepato- splenomegaly, or palpable masses. No guarding. EXTREMITIES: Leg wraps intact bilateral lower extremities. Significant edema noted. BACK: Nontender without deformity or crepitance. No flank tenderness. NEURO: AOx3. No obvious cranial nerve deficit. SKIN: Leg wraps intact bilateral lower extremities Initial Vital Signs Initial Vital Signs: Vital Signs Temperature 97.9 F 05/04/20 13:10 Pulse Rate 73 05/04/20 13:10 Respiratory Rate 26 H 05/04/20 13:10 Blood Pressure 160/74 H 05/04/20 13:10 Pulse Oximetry 97 05/04/20 13:10 <Jim Bal DO - Last Filed: 05/04/20 17:44> Initial Vital Signs Initial Vital Signs: Vital Signs Temperature 97.9 F 05/04/20 13:10 Pulse Rate 73 05/04/20 13:10 Respiratory Rate 26 H 05/04/20 13:10 Blood Pressure 160/74 H 05/04/20 13:10 Pulse Oximetry 97 05/04/20 13:10 Scores <MATEUSZ South - Last Filed: 05/04/20 16:32> [facility] [place] coma scale eye opening: Spontaneous [place] coma scale verbal response: Orientated [place] coma scale motor response: Obey commands [place] coma scale total score: 15 Course <MATEUSZ South - Last Filed: 05/04/20 16:32> Orders Ordered: ED Orders 05/04/20 13:36 Consult to [facility] - Power Sweeper Operator Stat Consult to Respiratory Therapy Evaluate & Treat EKG-12 Lead Stat 05/04/20 13:37 XR chest 1V Stat 05/04/20 14:17 Complete Blood Count AUTO DIFF Stat Comprehensive Metabolic Panel Stat Lactate (Lactic Acid) Stat Magnesium Stat NT-proBNP (BNP-Adult 18+) Stat Partial Thromboplastin Time Stat Procalcitonin Stat Prothrombin Time INR Stat Troponin & CK Cardiac Panel Stat Reevaluation(s) Reevaluation #1: Case management in with patient. Case management states that they are very familiar with this patient. Time: 15:30 Vital Signs Vital signs: Vital Signs - 8 hr 05/04/20 13:10 05/04/20 15:30 Temperature 97.9 F Pulse Rate 73 74 Respiratory Rate 26 H 24 Blood Pressure 160/74 H 136/83 Pulse Oximetry 97 98 <Jim Bal DO - Last Filed: 05/04/20 17:44> Orders Ordered: ED Orders 05/04/20 13:36 Consult to [facility] - Power Sweeper Operator Stat Consult to Respiratory Therapy Evaluate & Treat EKG-12 Lead Stat 05/04/20 13:37 XR chest 1V Stat 05/04/20 14:17 Complete Blood Count AUTO DIFF Stat Comprehensive Metabolic Panel Stat Lactate (Lactic Acid) Stat Magnesium Stat NT-proBNP (BNP-Adult 18+) Stat Partial Thromboplastin Time Stat Procalcitonin Stat Prothrombin Time INR Stat Troponin & CK Cardiac Panel Stat Vital Signs Vital signs: Vital Signs - 8 hr 05/04/20 13:10 05/04/20 15:30 Temperature 97.9 F Pulse Rate 73 74 Respiratory Rate 26 H 24 Blood Pressure 160/74 H 136/83 Pulse Oximetry 97 98 MDM - SOB/Dyspnea <KEVIN South-BC - Last Filed: 05/04/20 16:32> Lab Data Attestation: I reviewed the patient's lab results. Result diagrams: 05/04/20 14:17 05/04/20 14:17 Labs: Lab Results 05/04/20 05/04/20 05/04/20 Range/Units 14:17 14:17 14:17 WBC 8.6 (4.5-11.0) X10^3/uL RBC 3.54 L (4.5-5.9) X10^6/uL Hgb 10.0 L (13.5-17.5) g/dL Hct 31.5 L (41-53) % MCV 89.1 (80-100) fL MCH 28.2 (26-34) PG MCHC 31.6 (30-36) % RDW 17.4 H (11.6-14.8) % Plt Count 214 (150-400) X10^3/uL Neut % (Auto) 73.7 (50-75) % Lymph % (Auto) 8.8 L (25-40) % Haralson % (Auto) 12.6 (3-14) % Eos % (Auto) 4.4 H (2-4) % Baso % (Auto) 0.5 (0-2) % Neut # (Auto) 6300 (5279-0192) /uL Lymph # (Auto) 800 L (4206-3873) /uL Haralson # (Auto) 1100 H (0-900) /uL Eos # (Auto) 400 (0-450) /uL Baso # (Auto) 0 (0-100) /uL PT 11.8 (10.1-12.7) SECONDS INR 1.0 (0.9-1.3) APTT 43 H (26.4-36.2) SECONDS Sodium (137-145) mmol/L Potassium (3.4-5.1) mmol/L Chloride (98-107) mmol/L Carbon Dioxide (22-32) mmol/L BUN (9-20) mg/dL Creatinine (0.66-1.25) mg/dL Estimated GFR (>60) mL/min BUN/Creatinine Ratio (6-22) Glucose (80-110) mg/dL Lactate (0.7-2.1) mmol/L Calcium (8.4-10.2) mg/dL Magnesium 1.5 L (1.6-2.3) mg/dL Total Bilirubin (0.2-1.3) mg/dL AST (17-59) IU/L ALT (<50) IU/L Alkaline Phosphatase (38-126) U/L Total Creatine Kinase 150 (55-170) U/L CK-MB (CK-2) 4.22 H (<2.37) ng/mL CK-MB (CK-2) Rel Index 2.8 (1.5-5.0) % Troponin I < 0.012 (0.01-0.034) ng/mL NT-Pro-B Natriuret Pep 2000 H (<125) pg/mL Total Protein (6.3-8.2) g/dL Albumin (3.5-5.0) g/dL Globulin (1.7-4.1) g/dL Albumin/Globulin Ratio (1.0-2.8) Procalcitonin 0.34 (<0.5) ng/mL 05/04/20 05/04/20 Range/Units 14:17 14:17 WBC (4.5-11.0) X10^3/uL RBC (4.5-5.9) X10^6/uL Hgb (13.5-17.5) g/dL Hct (41-53) % MCV (80-100) fL MCH (26-34) PG MCHC (30-36) % RDW (11.6-14.8) % Plt Count (150-400) X10^3/uL Neut % (Auto) (50-75) % Lymph % (Auto) (25-40) % Haralson % (Auto) (3-14) % Eos % (Auto) (2-4) % Baso % (Auto) (0-2) % Neut # (Auto) (3906-9249) /uL Lymph # (Auto) (9505-0533) /uL Haralson # (Auto) (0-900) /uL Eos # (Auto) (0-450) /uL Baso # (Auto) (0-100) /uL PT (10.1-12.7) SECONDS INR (0.9-1.3) APTT (26.4-36.2) SECONDS Sodium 134 L (137-145) mmol/L Potassium 3.9 (3.4-5.1) mmol/L Chloride 96 L (98-107) mmol/L Carbon Dioxide 27 (22-32) mmol/L BUN 54 H (9-20) mg/dL Creatinine 3.04 H (0.66-1.25) mg/dL Estimated GFR 20.6 L (>60) mL/min BUN/Creatinine Ratio 17.8 (6-22) Glucose 136 H (80-110) mg/dL Lactate 0.9 (0.7-2.1) mmol/L Calcium 7.9 L (8.4-10.2) mg/dL Magnesium (1.6-2.3) mg/dL Total Bilirubin 0.7 (0.2-1.3) mg/dL AST 24 (17-59) IU/L ALT 12 (<50) IU/L Alkaline Phosphatase 137 H (38-126) U/L Total Creatine Kinase (55-170) U/L CK-MB (CK-2) (<2.37) ng/mL CK-MB (CK-2) Rel Index (1.5-5.0) % Troponin I (0.01-0.034) ng/mL NT-Pro-B Natriuret Pep (<125) pg/mL Total Protein 6.8 (6.3-8.2) g/dL Albumin 3.8 (3.5-5.0) g/dL Globulin 3.0 (1.7-4.1) g/dL Albumin/Globulin Ratio 1.3 (1.0-2.8) Procalcitonin (<0.5) ng/mL Imaging Data Chest x-ray: Radiologist's Impression: [address] [place] [id number] ReportSigned Patient: Cristóbal Tubbs WMR#: [id number]: 1950cct:[id number]/Sex: 69 / MDate of Service: 05/04/20Loc: EDAccession Number: [id number] Procedure: XR chest 1V Ordering Provider: Raquel Schrader PROCEDURE: XR CHEST 1V INDICATIONS: sob TECHNIQUE: One view of the chest was acquired. COMPARISON: [facility], , XR CHEST 1V, 05/03/2020, 15:13. FINDINGS: Surgical changes and devices: Spinal fusion device in visualized portion of cervical spine is seen with fixation screws bilaterally at possibly T1 and T2 levels, suggest clinical correlation. Fixation hardware in lower thoracic and lumbar spine is also seen. Lungs and pleura: Lungs are clear. No pleural effusions or pneumothorax. Mediastinum: Mediastinal contours appear normal. Heart size is markedly enlarged. Bones and chest wall: No suspicious bony lesions. Overlying soft tissues appear unremarkable. IMPRESSION: No acute cardiopulmonary pathology. Fractured fixation hardware in lower cervical/upper thoracic spine, suggest clinical correlation. Dictated by: Ervin Love M.D. on 05/04/2020 at 14:27 Approved by: Ervin Love M.D. on 05/04/2020 at 14:28 ECG Data Attestation: I personally reviewed and interpreted this ECG as follows: Interpretation: Normal sinus rhythm. Ventricular rate 71. P.r. interval 144. QRS 116. veiwed by Dr Bal MDM Narrative Medical decision making narrative: The patient is a 69-year-old male with very complicated medical history who presents to the emergency department with a chief complaint of ?failure at home. Lab work was done, chest x-ray taken to evaluate for the possibility of an acute decompensation from yesterday. His labs and imaging illustrate chronic illness rather than an acute decompensation. I reviewed the patient's images and lab work with Dr Bal who evaluated the patient yesterday. Spoke with case management, who has seen this patient multiple times, states that he has declines assistance in the past but agrees to meet with the patient anyway. Today his renal function is stable, though creatinine elevated at baseline. Troponin is negative. No elevated lactate. I discussed at length that I recommend following up with resources provided by case management. I did encourage the patient to follow up with primary care provider in the next 48-72 hours, consider elevation in care. Discussed at length coming back to the ER for acute concerns. Patient discussed with Dr Bal pending care management dispo <Jim Bal, DO - Last Filed: 05/04/20 17:44> Lab Data Labs: Lab Results 05/04/20 05/04/20 05/04/20 Range/Units 14:17 14:17 14:17 WBC 8.6 (4.5-11.0) X10^3/uL RBC 3.54 L (4.5-5.9) X10^6/uL Hgb 10.0 L (13.5-17.5) g/dL Hct 31.5 L (41-53) % MCV 89.1 (80-100) fL MCH 28.2 (26-34) PG MCHC 31.6 (30-36) % RDW 17.4 H (11.6-14.8) % Plt Count 214 (150-400) X10^3/uL Neut % (Auto) 73.7 (50-75) % Lymph % (Auto) 8.8 L (25-40) % [place] % (Auto) 12.6 (3-14) % Eos % (Auto) 4.4 H (2-4) % Baso % (Auto) 0.5 (0-2) % Neut # (Auto) 6300 (8158-2724) /uL Lymph # (Auto) 800 L (4912-2179) /uL [place] # (Auto) 1100 H (0-900) /uL Eos # (Auto) 400 (0-450) /uL Baso # (Auto) 0 (0-100) /uL PT 11.8 (10.1-12.7) SECONDS INR 1.0 (0.9-1.3) APTT 43 H (26.4-36.2) SECONDS Sodium (137-145) mmol/L Potassium (3.4-5.1) mmol/L Chloride (98-107) mmol/L Carbon Dioxide (22-32) mmol/L BUN (9-20) mg/dL Creatinine (0.66-1.25) mg/dL Estimated GFR (>60) mL/min BUN/Creatinine Ratio (6-22) Glucose (80-110) mg/dL Lactate (0.7-2.1) mmol/L Calcium (8.4-10.2) mg/dL Magnesium 1.5 L (1.6-2.3) mg/dL Total Bilirubin (0.2-1.3) mg/dL AST (17-59) IU/L ALT (<50) IU/L Alkaline Phosphatase (38-126) U/L Total Creatine Kinase 150 (55-170) U/L CK-MB (CK-2) 4.22 H (<2.37) ng/mL CK-MB (CK-2) Rel Index 2.8 (1.5-5.0) % Troponin I < 0.012 (0.01-0.034) ng/mL NT-Pro-B Natriuret Pep 2000 H (<125) pg/mL Total Protein (6.3-8.2) g/dL Albumin (3.5-5.0) g/dL Globulin (1.7-4.1) g/dL Albumin/Globulin Ratio (1.0-2.8) Procalcitonin 0.34 (<0.5) ng/mL 05/04/20 05/04/20 Range/Units 14:17 14:17 WBC (4.5-11.0) X10^3/uL RBC (4.5-5.9) X10^6/uL Hgb (13.5-17.5) g/dL Hct (41-53) % MCV (80-100) fL MCH (26-34) PG MCHC (30-36) % RDW (11.6-14.8) % Plt Count (150-400) X10^3/uL Neut % (Auto) (50-75) % Lymph % (Auto) (25-40) % [place] % (Auto) (3-14) % Eos % (Auto) (2-4) % Baso % (Auto) (0-2) % Neut # (Auto) (2336-3580) /uL Lymph # (Auto) (8920-4359) /uL [place]on # (Auto) (0-900) /uL Eos # (Auto) (0-450) /uL Baso # (Auto) (0-100) /uL PT (10.1-12.7) SECONDS INR (0.9-1.3) APTT (26.4-36.2) SECONDS Sodium 134 L (137-145) mmol/L Potassium 3.9 (3.4-5.1) mmol/L Chloride 96 L (98-107) mmol/L Carbon Dioxide 27 (22-32) mmol/L BUN 54 H (9-20) mg/dL Creatinine 3.04 H (0.66-1.25) mg/dL Estimated GFR 20.6 L (>60) mL/min BUN/Creatinine Ratio 17.8 (6-22) Glucose 136 H (80-110) mg/dL Lactate 0.9 (0.7-2.1) mmol/L Calcium 7.9 L (8.4-10.2) mg/dL Magnesium (1.6-2.3) mg/dL Total Bilirubin 0.7 (0.2-1.3) mg/dL AST 24 (17-59) IU/L ALT 12 (<50) IU/L Alkaline Phosphatase 137 H (38-126) U/L Total Creatine Kinase (55-170) U/L CK-MB (CK-2) (<2.37) ng/mL CK-MB (CK-2) Rel Index (1.5-5.0) % Troponin I (0.01-0.034) ng/mL NT-Pro-B Natriuret Pep (<125) pg/mL Total Protein 6.8 (6.3-8.2) g/dL Albumin 3.8 (3.5-5.0) g/dL Globulin 3.0 (1.7-4.1) g/dL Albumin/Globulin Ratio 1.3 (1.0-2.8) Procalcitonin (<0.5) ng/mL Discharge Plan Departure Patient Disposition: Home Clinical Impression: Chronic kidney disease, stage 4 (severe), Weakness Urinary tract infection Qualifiers: Urinary tract infection type: site unspecified Hematuria presence: without hematuria Qualified Code(s): N39.0 - Urinary tract infection, site not specified Activity Restrictions/Additional Instructions: Thank you for trusting us with your care today. As discussed, it is very important that you follow-up with recommendations and prescriptions provided by your microarray specialist. Please follow-up with primary care provider as well. I would like you to get seen in the next 48-72 hours. I highly encourage you to follow through with resources provided by case management. Please come back to the emergency department for any acute concerns such as chest pain, concern of heart attack stroke etcetera Prescriptions: No Action citalopram 20 mg tablet 20 mg PO DAILY Qty: 90 RF: 3 glimepiride 1 mg tablet 1 mg PO DAILY Qty: 90 RF: 1 torsemide 20 mg tablet 40 mg PO DAILY PRN (Reason: edema) Qty: 60 RF: 2 allopurinol [Zyloprim] 100 mg tablet 200 mg PO DAILY Qty: 180 RF: 1 lorazepam 0.5 mg tablet 0.5 mg PO DAILY PRN (Reason: Anxiety) Qty: 20 RF: 5 hydrocodone-acetaminophen 7.5-325 mg tablet 1 tab PO BID PRN (Reason: pain) Qty: 60 RF: 0 lidocaine 5 % adhesive patch,medicated 1 patch TOP DAILY Qty: 15 RF: 11 doxazosin 4 mg Tablet 4 mg PO BEDTIME RF: 0 duloxetine 60 mg capsule,delayed release(DR/EC) 60 mg PO BID RF: 0 polyethylene glycol 3350 17 gram/dose Powder 17 g PO DAILY PRN (Reason: Constipation) RF: 0 silver sulfadiazine [SSD] 1 % cream 1 applic TOPICAL TID RF: 0 nitrofurantoin monohyd/m-cryst [Macrobid] 100 mg capsule 100 mg PO Q12H 5 Days Qty: 10 RF: 0 carvedilol [Coreg] 12.5 mg Tablet 12.5 mg PO BID RF: 0 amlodipine [Norvasc] 10 mg Tablet 10 mg PO DAILY RF: 0 melatonin 3 mg Tablet 6 mg PO BEDTIME RF: 0 docusate sodium [Colace] 100 mg capsule 100 mg PO DAILY Qty: 10 RF: 0 zinc oxide [Boudreauxs Butt Paste] 40 % ointment 1 applic topical 6XD PRN (Reason: skin irritation) Qty: 56 RF: 0 finasteride 5 mg tablet 5 mg PO DAILY Qty: 90 RF: 3 Referrals: Mariano Keller MD [Primary Care Provider] - <Jim Bal DO - Last Filed: 05/04/20 17:44> Cosign ED Attending Cosignature Attestation: Dr. Bal: Patient remained stable dur ing his time here in the ER waiting for his ride home. He has been seen by social work and there was some social item set up. Patient will be discharged home.
[2020-05-04 14:20] LABS: Add Manual Diff / Slide Review NO; Basophils Absolute Auto 0 /uL (0-100); Basophils Percent Auto 0.5 % (0-2); Eosinophils Absolute Auto 400 /uL (0-450); Eosinophils Percent Auto 4.4 % (2-4); Hematocrit 31.5 % (41-53); Lymphocytes Absolute Auto 800 /uL (1100-4500); Lymphocytes Percent Auto 8.8 % (25-40); Mean Corpuscular HGB Conc 31.6 % (30-36); Mean Corpuscular Hemoglobin 28.2 PG (26-34); Mean Corpuscular Volume 89.1 fL (80-100); Monocytes Absolute Auto 1100 /uL (0-900); Monocytes Percent Auto 12.6 % (3-14); Neutrophils Absolute Auto 6300 /uL (1500-7000); Neutrophils Percent Auto 73.7 % (50-75); Platelet Count 214 X10^3/uL (150-400); Red Blood Cell Count 3.54 X10^6/uL (4.5-5.9); Red Cell Distribution Width 17.4 % (11.6-14.8); White Blood Cell Count 8.6 X10^3/uL (4.5-11.0)
[2020-05-04 14:22] LABS: Lactate (Lactic Acid) 0.9 mmol/L (0.7-2.1)
[2020-05-04 14:23] LABS: Prothrombin Time 11.8 SECONDS (10.1-12.7)
[2020-05-04 14:25] LABS: PTT Partial Thromboplastin Tim 43 SECONDS (26.4-36.2)
[2020-05-04 14:33] LABS: Creatine Kinase 150 U/L (55-170); Magnesium 1.5 mg/dL (1.6-2.3)
[2020-05-04 14:34] LABS: Alanine Aminotransferase 12 IU/L (<50); Albumin 3.8 g/dL (3.5-5.0); Albumin Globulin Ratio 1.3 (1.0-2.8); Alkaline Phosphatase 137 U/L (38-126); Aspartate Aminotransferase 24 IU/L (17-59); BUN Creatinine Ratio 17.8 (6-22); Bilirubin Total 0.7 mg/dL (0.2-1.3); Blood Urea Nitrogen 54 mg/dL (9-20); Calcium 7.9 mg/dL (8.4-10.2); Carbon Dioxide 27 mmol/L (22-32); Chloride 96 mmol/L (98-107); Estimated Glomerular Filt Rate 20.6 mL/min (>60); Glucose 136 mg/dL (80-110); HEMOLYSIS < 15 (0-50); Potassium 3.9 mmol/L (3.4-5.1); Sodium 134 mmol/L (137-145); Total Protein 6.8 g/dL (6.3-8.2)
[2020-05-04 14:46] LABS: NT-proBNP (BNP-Adult 18+) 2000 pg/mL (<125); Troponin I < 0.012 ng/mL (0.01-0.034)
[2020-05-04 14:48] LABS: CKMB % Relative Index 2.8 % (1.5-5.0); Creatine Kinase MB 4.22 ng/mL (<2.37)
[2020-05-04 14:51] LABS: Procalcitonin 0.34 ng/mL (<0.5)
[2020-05-04 15:30] VITALS: BP 136/83; PULSE 74; RESP 24; O2SAT 98
--- NOTE | 2020-05-04 17:07 | CM.DPNOTE ---
Addendum entered by Reshma Solorzano R.N. 05/05/20 14:57: Addendum for clarification... Negrita Refuge is patient's SONIA CM Original Note: Pt. arrived to ED via WC from wound care because there was concern about his ability to remain independent. Talked to patient who is A&OX4 and currently being treated for a UTI and chronic wounds. Pt. very clear about his desire to return home. Spoke to pt. about his living situation. He admits that although likes living independently he has concerns about continuing to do so care home. He is worried that his rent is being raised beyond his ability to pay and he feels his safety would be better if he lived with others. He is not interested in an [facility]AN[facility] but would consider an adult family home - if there weren't a bunch of people living there - maybe just 3 or so. Pt. also continuest to drink a couple beers a day, and sometimes I drink accessively. Pt. reports decrease in drinking but isn't really interested in quitting. Pt. also expressed interest in establishing a POLST. He states, I'm 69 and don't have any problems with the idea of dying. I just want to be sure I live like I want and like I want. I spoke to sister Rosa ([phone]) about all of the above. She states that she is just not willing and able to phyusically help him any longer and she doesn't believe that the patient can do this independently. (Patient disagrees and thinks he can Manage). I provided Rosa with Health Home Program information and [facility] contact information ([phone]). I also asked her if she had considered renting lift equipment or a more supportive wheelchair for patient. Rosa said that she had contacted [employer] about a better wheelchair but hadn't had the chance to finish up the paperwork to get all that moving. I encouraged her to do so. Sister and patient had also not remembered to get the paperwork in for his [employer] bus and so that will be stopped for at least 3 weeks while paperwork is processed. I encouraged her to reach out to Medicaid to see if they could facilitate transport to appointments while paperwork is completed. I arranged a ride with [facility] in his WC but they won't be available to take him until tomorrow morning. Patient wanting to go home tonight. Pt. is decisional. Spoke to Cyndy Cat about [facility] and it was agreed that the ED could utilize that as an option tonight if unable to keep patient here. I spoke to Rosa and updated her on all of the above. She is bringing pt. WC here for dishcarge. I also advised her to follow up with Dr. Keller and if she couldn't get a timely appointment to contact [employer] desk at [phone] tomorrow and we might be able to help get one sooner. Also left a message for Negrita Rajiv with ED [employer] phone number and my [phone] office number for follow up.
== END 2020-05-04 18:45 | disposition home or self-care (01) ==
PROVIDERS: Emergency Provider Nurse Practitioner Family; PCP Student in an Organized Health Care Education/Training Program
DX: N18.4 Chronic kidney disease, stage 4 (severe) (principal); R53.1 Weakness; N39.0 Urinary tract infection, site not specified; R06.02 Shortness of breath
CPT/HCPCS: 36415; 71045; 80053; 82550; 82553; 83605; 83735; 83880; 84145; 84484; 85025; 85610; 85730; 93005; 99283; 99284

== ENCOUNTER 2020-05-05 14:17 | Inpatient (IN) | payer MEDICARE, MEDICAID, SELFPAY ==
[2020-05-04 11:08] VITALS: PULSE 56; RESP 16; O2SAT 100; BMI 42.2
[2020-05-05] VITALS (12 sets, daily range): BP systolic 146–157; BP diastolic 65–76; PULSE 71–80; RESP 20–25; TEMP 36.6; O2SAT 89–96; BMI 40.1
--- NOTE | 2020-05-05 16:23 | CM.DPNOTE ---
Addendum entered by Reshma Solorzano R.N. 05/05/20 16:52: Raquel Schrader and Dr. Montoya were updated about [facility] efforts to arrange outpatient resources. Original Note: Spoke with Melo the Pam nurse that brought pt. to . She explained she did so because she didn't know what else to do. She felt he wasn't safe at home and this was her only option. I explained that ED would assess pt. and if he met medical necessity he would be admitted. Currently his wish is to go home so if he is medically stable he will be discharged home. She understood. I spoke to Karen at [facility] in [place] and filed a claim on patient (Intake ID#[id number]) due to my concerns about pt. self neglect and vulnerable state. I spoke with Dr. Keller's nurse - who has spent today looking at resources for patient and updating sister Rosa. We agree that as long as patient wants to go home, he should be discharged home. When he is ready to relocate to a more assistive environment Jesus with [facility] ([phone]) said the [facility] would be able to accept patient. Modesta has explained to pt. sister Rosa that to be admitted to he will need to have a medical diagnosis. His current living conditions cannot be altered by or his PCP. I informed Modesta that patient expressed a wish to complete a POLST yesterday. I also explained that yesterday I provided sister with information and phone number for [employer] in home lift equipment and a lift WC.
--- NOTE | 2020-05-05 18:56 | ED.RECABL ---
HPI - Recheck/Abnormal Lab/Rx General Chief Complaint: Recheck/Abnormal Lab/Rx Stated Complaint: Sent by home health nurse Time Seen by Provider: 05/05/20 18:56 Source: patient and EMS Mode of arrival: EMS Limitations: no limitations History of Present Illness HPI narrative: This is a 69-year-old male who sent by his home health care wanting placement for correction. They state they do not feel that he safe to live home alone. The patient is nonambulatory. He has a history of hypertension, diabetes, lower extremity edema, chronic kidney disease. Patient states at that this time he has no acute concerns. He states he does not wish to be in a correction. He states he would rather in the streets than be forced into a correction. Denies any suicidal ideation or intent. Patient has been evaluated by social Work several times for this particular situation. When asked why he was transported today he states because home health care wanted him to come although he is clear he does not wish to go to a correction. He denies any lightheadedness or passing out. He has chronic neck pain from cervical fractures 6 years ago which he states has not changed or worsened. He denies any chest pain or pressure. No shortness of breath. He denies any nausea or vomiting he denies any new GI or urinary symptoms. He states he has swelling in his lower extremities which may be slightly worse. Related Data Home Medications Medication Instructions Recorded Confirmed doxazosin 4 mg PO BEDTIME 06/07/18 05/06/20 duloxetine 60 mg PO BID 09/28/18 05/06/20 polyethylene glycol 3350 17 g PO DAILY PRN 09/28/18 05/06/20 silver sulfadiazine [SSD] 1 applic TOPICAL TID 11/12/18 05/06/20 melatonin 6 mg PO BEDTIME 09/12/19 05/06/20 amlodipine [Norvasc] 10 mg PO DAILY 03/25/20 04/29/20 carvedilol [Coreg] 12.5 mg PO BID 03/25/20 04/29/20 Previous Rx's Medication Instructions Recorded docusate sodium [Colace] 100 mg PO DAILY #10 cap 01/26/20 citalopram 20 mg tablet 20 mg PO DAILY #90 tab 02/12/20 glimepiride 1 mg tablet 1 mg PO DAILY #90 tab 03/13/20 zinc oxide [Boudreauxs Butt Paste] 1 applic TOPICAL 6XD PRN #56 g 03/14/20 finasteride 5 mg tablet 5 mg PO DAILY #90 tab 03/23/20 torsemide 20 mg tablet 40 mg PO DAILY PRN #60 tab 04/20/20 allopurinol 100 mg tablet 200 mg PO DAILY #180 tab 04/24/20 hydrocodone 7.5 mg-acetaminophen 1 tab PO BID PRN #60 tab 04/29/20 325 mg tablet lidocaine 5 % topical patch 1 patch TOP DAILY #15 ea 04/29/20 lorazepam 0.5 mg tablet 0.5 mg PO DAILY PRN #20 tab 04/29/20 nitrofurantoin monohyd/m-cryst 100 mg PO Q12H 5 Days #10 cap 05/03/20 [Macrobid] Allergies Allergy/AdvReac Type Severity Reaction Status Date / Time latex Allergy Mild IRRITATION Verified 05/04/20 13:39 carisoprodol [From Soma] Allergy Verified 05/04/20 13:39 hydromorphone Allergy Verified 05/04/20 13:39 Sulfa (Sulfonamide AdvReac Mild N&V 1HOUR Verified 05/04/20 13:39 Antibiotics) AFTER RX, THINKS IT IS RELATED Review of Systems Review of Systems ROS Unobtainable: All systems reviewed & are unremarkable except as noted in HPI and below Patient History Medical History Arthritis BPH w urinary obs/LUTS Cellulitis of left leg Chronic kidney disease, stage 4 (severe) Chronic UTI Depression Diabetes Duodenal ulcer History of cervical fracture History of urinary retention Hyperparathyroidism Osteoarthritis Peripheral vascular disease Renal disease Urge incontinence Surgical History H/O cervical spine surgery History of back surgery History of colectomy History of colon surgery History of fusion of cervical spine History of knee replacement Family History Mother Kidney failure Diabetes mellitus Social History marital status: number of children: 4 household members: none occupational status: employed Smoking Status: Former smoker alcohol intake: current caffeine: Yes Smoking Status: Former smoker alcohol intake frequency: 0-2 drinks per day Alcohol type: beer Substance Use Type: does not use Exam Narrative Exam Narrative: GENERAL: Alert and oriented, obese male mild distress. HEENT: Head normocephalic, atraumatic, EOMI, pupils reactive, face symmetric, moist mucous membranes NECK: Supple, full range of motion CARDIOVASCULAR: Regular rate and rhythm without murmurs, rubs or gallops. RESPIRATORY: Breath sounds equal bilaterally, no wheezes rales or rhonchi. ABDOMEN: Soft, nontender. Normoactive bowel sounds all 4 quadrants. No guarding or rebound, rigidity, no mass : No CVA tenderness EXTREMITIES: Patient has bilateral lower extremity edema.. Neurovascularly intact NEUROLOGICAL: Cranial nerves II through XII grossly intact. Moving all extremities. SKIN: Warm, dry, no petechiae, no rashes or lesions appreciated. Initial Vital Signs Initial Vital Signs: Vital Signs Temperature 97.9 F 05/05/20 14:18 Pulse Rate 75 05/05/20 14:18 Respiratory Rate 20 05/05/20 14:18 Blood Pressure 155/76 H 05/05/20 14:18 Pulse Oximetry 95 05/05/20 14:18 Course Orders Ordered: ED Orders 05/05/20 19:15 XR chest 1V Stat 05/05/20 19:44 Complete Blood Count AUTO DIFF Stat Comprehensive Metabolic Panel Stat Lipase Stat NT-proBNP (BNP-Adult 18+) Stat Troponin I Stat 05/05/20 20:18 COVID19 Stat 05/05/20 22:34 Urinalysis and Microscopic Stat Urine Culture Stat Acetaminophen (Acetaminophen 325 Mg Tablet) 650 mg PO Q6HR PRN PRN Reason: Fever/Mild Pain (1-3) Last Admin: 05/06/20 01:39 Dose: 650 mg Documented by: SALOMÓN Hydrocodone Bitart/Acetaminophen (Hydrocodone/Acet 10/325 Tablet) 1 tab PO BID PRN PRN Reason: Pain, Moderate (4-6) Last Admin: 05/06/20 01:50 Dose: 1 tab Documented by: SALOMÓN Citalopram Hydrobromide (Citalopram 10 Mg Tablet) 20 mg PO DAILY DAVID Docusate Sodium (Docusate 100 Mg Capsule) 100 mg PO DAILY DAVID Doxazosin Mesylate (Doxazosin 4 Mg Tablet) 4 mg PO BEDTIME [facility] Duloxetine HCl (Duloxetine 30 Mg Capsule) 60 mg PO BID [facility] Last Admin: 05/06/20 01:52 Dose: Not Given Documented by: SALOMÓN Enoxaparin Sodium (Enoxaparin 30 Mg/0.3 Ml Syringe) 30 mg SUBCUT DAILY [facility] Sodium Chloride (Normal Saline 0.9%) 1,000 mls @ 150 mls/hr IV CONT [facility] Last Infusion: 05/05/20 23:46 Dose: 150 mls/hr Documented by: Infusion: 05/05/20 23:05 Dose: 0 mls/hr Documented by: Admin: 05/05/20 23:03 Dose: 150 mls/hr Documented by: JORGE Sodium Chloride (Normal Saline 0.9%) 1,000 mls @ 100 mls/hr IV CONT [facility] Last Admin: 05/06/20 01:00 Dose: 100 mls/hr Documented by: SALOMÓN Lidocaine (Lidocaine Patch 1 Each Adh..Patch) 1 each TOP DAILY [facility] Lorazepam (Lorazepam 0.5 Mg Tablet) 0.5 mg PO DAILY PRN PRN Reason: Anxiety Last Admin: 05/06/20 01:39 Dose: 0.5 mg Documented by: SALOMÓN Melatonin (Melatonin 3 Mg Tablet) 6 mg PO BEDTIME [facility] Last Admin: 05/06/20 02:23 Dose: Not Given Documented by: SALOMÓN Naloxone HCl (Naloxone 0.4 Mg/Ml Vial) 0.2 mg IV Q2MIN PRN PRN Reason: Opiate Reversal Polyethylene Glycol (Polyethylene Glycol 3350 17 Gm Powd.Pack) 17 gm PO DAILY PRN PRN Reason: Constipation Silver Sulfadiazine (Silver Sulfadiazine 1% Cream 25 Gm) 1 applic TOP TID [facility] Last Admin: 05/06/20 01:52 Dose: Not Given Documented by: SALOMÓN Discontinued Medications Calcium Gluconate 9.3 meq/ (Sodium Chloride) 70 mls @ 140 mls/hr IV NOW ONE Stop: 05/05/20 21:42 Last Infusion: 05/05/20 22:07 Dose: 0 mls/hr Documented by: Admin: 05/05/20 21:29 Dose: 140 mls/hr Documented by: JORGE Ceftriaxone Sodium/Dextrose (Rocephin) 1 gm in 50 mls @ 100 mls/hr IV NOW ONE Stop: 05/05/20 23:26 Last Infusion: 05/05/20 23:36 Dose: 0 mls/hr Documented by: Admin: 05/05/20 23:03 Dose: 100 mls/hr Documented by: JORGE Melatonin (Melatonin 3 Mg Tablet) 6 mg PO BEDTIME DAVID Non-Formulary Medication (Hydrocodone-Acetaminophen) 1 tab PO BID PRN PRN Reason: pain Non-Formulary Medication (Citalopram) 20 mg PO DAILY DAVID Potassium Chloride (Potassium Chloride 20 Meq/15 Ml Udc) 40 meq PO NOW ONE Stop: 05/05/20 21:14 Last Admin: 05/05/20 21:29 Dose: 40 meq Documented by: JORGE Reevaluation(s) Time: 23:30 Consultations Consultation #1: Spoke with ALTAF Mosquera who accepts or slowly worsening acute on chronic renal failure, UTI, mild to moderate electrolyte abnormalities and multiple social issues. Time: 23:30 Vital Signs Vital signs: Vital Signs - 8 hr 05/05/20 20:59 05/05/20 21:00 05/05/20 21:01 Pulse Rate 79 73 74 Respiratory Rate Blood Pressure 147/65 H Pulse Oximetry 92 95 95 05/05/20 21:30 05/05/20 21:31 05/05/20 22:00 Pulse Rate 72 72 74 Respiratory Rate 24 Blood Pressure 150/75 H Pulse Oximetry 89 L 92 94 05/05/20 22:14 05/05/20 22:30 05/05/20 23:00 Pulse Rate 80 73 71 Respiratory Rate 24 25 H 24 Blood Pressure 148/67 H 146/68 H Pulse Oximetry 95 95 96 05/05/20 23:30 Pulse Rate 75 Respiratory Rate 23 Blood Pressure Pulse Oximetry 96 MDM - Recheck/Abnormal Lab/Rx Lab Data Attestation: I reviewed the patient's lab results. Result diagrams: 05/05/20 19:44 05/05/20 19:44 Labs: Lab Results 05/05/20 05/05/20 05/05/20 Range/Units 19:44 19:44 19:44 WBC 8.5 (4.5-11.0) X10^3/uL RBC 3.30 L (4.5-5.9) X10^6/uL Hgb 9.5 L (13.5-17.5) g/dL Hct 29.2 L (41-53) % MCV 88.5 (80-100) fL MCH 28.6 (26-34) PG MCHC 32.4 (30-36) % RDW 17.7 H (11.6-14.8) % Plt Count 195 (150-400) X10^3/uL Neut % (Auto) 74.1 (50-75) % Lymph % (Auto) 8.2 L (25-40) % [place] % (Auto) 13.0 (3-14) % Eos % (Auto) 4.4 H (2-4) % Baso % (Auto) 0.3 (0-2) % Neut # (Auto) 6300 (0790-0137) /uL Lymph # (Auto) 700 L (9529-0309) /uL [place] # (Auto) 1100 H (0-900) /uL Eos # (Auto) 400 (0-450) /uL Baso # (Auto) 0 (0-100) /uL Sodium 132 L (137-145) mmol/L Potassium 3.3 L (3.4-5.1) mmol/L Chloride 96 L (98-107) mmol/L Carbon Dioxide 28 (22-32) mmol/L BUN 56 H (9-20) mg/dL Creatinine 3.22 H (0.66-1.25) mg/dL Estimated GFR 19.3 L (>60) mL/min BUN/Creatinine Ratio 17.4 (6-22) Glucose 111 H (80-110) mg/dL Calcium 7.6 L (8.4-10.2) mg/dL Total Bilirubin 0.8 (0.2-1.3) mg/dL AST 28 (17-59) IU/L ALT 12 (<50) IU/L Alkaline Phosphatase 128 H (38-126) U/L Troponin I < 0.012 (0.01-0.034) ng/mL NT-Pro-B Natriuret Pep 1850 H (<125) pg/mL Total Protein 6.6 (6.3-8.2) g/dL Albumin 3.7 (3.5-5.0) g/dL Globulin 2.9 (1.7-4.1) g/dL Albumin/Globulin Ratio 1.3 (1.0-2.8) Lipase 25 (23-300) U/L Urine Color Urine Appearance Urine pH (4.5-8.0) Ur Specific Paxton (1.000-1.035) Urine Protein (Negative) Urine Glucose (UA) (Negative) g/dL Urine Ketones (NEGATIVE) Urine Occult Blood (Negative) Urine Nitrate (Negative) Urine Bilirubin (NEGATIVE) Urine Urobilinogen (0.2) E.U./dL Ur Leukocyte Esterase (NEGATIVE) Urine RBC (0-5/HPF) Urine WBC (0-5/HPF) Urine Bacteria (None) Ur Culture Indicated? Urine Creatinine mg/dL SARS-CoV-2 (PCR) (Negative) 05/05/20 05/05/20 05/05/20 Range/Units 20:18 22:34 22:34 WBC (4.5-11.0) X10^3/uL RBC (4.5-5.9) X10^6/uL Hgb (13.5-17.5) g/dL Hct (41-53) % MCV (80-100) fL MCH (26-34) PG MCHC (30-36) % RDW (11.6-14.8) % Plt Count (150-400) X10^3/uL Neut % (Auto) (50-75) % Lymph % (Auto) (25-40) % [place] % (Auto) (3-14) % Eos % (Auto) (2-4) % Baso % (Auto) (0-2) % Neut # (Auto) (9982-1034) /uL Lymph # (Auto) (7341-7813) /uL [place] # (Auto) (0-900) /uL Eos # (Auto) (0-450) /uL Baso # (Auto) (0-100) /uL Sodium (137-145) mmol/L Potassium (3.4-5.1) mmol/L Chloride (98-107) mmol/L Carbon Dioxide (22-32) mmol/L BUN (9-20) mg/dL Creatinine (0.66-1.25) mg/dL Estimated GFR (>60) mL/min BUN/Creatinine Ratio (6-22) Glucose (80-110) mg/dL Calcium (8.4-10.2) mg/dL Total Bilirubin (0.2-1.3) mg/dL AST (17-59) IU/L ALT (<50) IU/L Alkaline Phosphatase (38-126) U/L Troponin I (0.01-0.034) ng/mL NT-Pro-B Natriuret Pep (<125) pg/mL Total Protein (6.3-8.2) g/dL Albumin (3.5-5.0) g/dL Globulin (1.7-4.1) g/dL Albumin/Globulin Ratio (1.0-2.8) Lipase (23-300) U/L Urine Color Yellow Urine Appearance Sl cloudy Urine pH 5.0 (4.5-8.0) Ur Specific [place] 1.010 (1.000-1.035) Urine Protein Negative (Negative) Urine Glucose (UA) Negative (Negative) g/dL Urine Ketones Negative (NEGATIVE) Urine Occult Blood 1+ H (Negative) Urine Nitrate Positive (Negative) Urine Bilirubin Negative (NEGATIVE) Urine Urobilinogen 0.2 (0.2) E.U./dL Ur Leukocyte Esterase 2+ H (NEGATIVE) Urine RBC 0-1/hpf (0-5/HPF) Urine WBC 30-100/hpf H (0-5/HPF) Urine Bacteria Many (>30) H (None) Ur Culture Indicated? Specimen cultured Urine Creatinine 41.9 mg/dL SARS-CoV-2 (PCR) Negative (Negative) Imaging Data Chest x-ray: Radiologist's Impression: [address] [id number] ReportSigned Patient: Cristóbal Tubbs WMR#: [id number]: [id number]:[id number]/Sex: 69 / MDate of Service: 05/05/20Loc: EDAccession Number: [id number] Procedure: XR chest 1V Ordering Provider: Raquel Charles D.O. PROCEDURE: XR CHEST 1V INDICATIONS: medical clearance TECHNIQUE: One view of the chest was acquired. COMPARISON: [facility], , XR CHEST 1V, 05/04/2020, 13:55. FINDINGS: Surgical changes and devices: Cervical and lumbar partially visualized surgical fixation hardware as before Scattered subsegmental atelectasis and/or scarring. No focal consolidation. Low lung volumes. No pleural effusions or pneumothorax. Mediastinum: Mediastinal contours appear normal. Heart size is normal. Bones and chest wall: No suspicious bony lesions. Overlying soft tissues appear unremarkable. IMPRESSION: Scattered subsegmental atelectasis and/or scarring. No focal consolidation. Dictated by: Stalin Champion M.D. on 05/05/2020 at 19:46 Approved by: Stalin Champion M.D. on 05/05/2020 at 19:47 [facility] Narrative Medical decision making narrative: This is a 69-year-old male sent from his home by home health care for concerns for being able to live independently safely. Patient states that he came today because he was asked to come by his home health care workers, he himself has no complaints. He is aware of their wishes but states he wishes to live at his home. He is not able to ambulate independently. He states he has home health care during daytime hours. He has had multiple meetings with social Work here at the hospital. Today labs do show a slowly worsening renal dysfunction, patient also appears to have a UTI. He does not appear septic. He has electrolyte abnormalities including hypocalcemia and a mild hypokalemia. With what appears to be a fairly stable baseline anemia. Patient's BNP is elevated at 18 50, he has chronic bilateral lower extremity edema to the appears significantly worse from baseline. And his troponin is negative. Pulmonary edema and diuretics were not initiated. Patient was given initial dose of antibiotics, hydration and discussed with ALTAF Mosquera who accepts for observation. Discharge Plan Departure Patient Disposition: Admitted as Observation Clinical Impression: Acute UTI, Acute on chronic kidney failure, Hypocalcemia Admit Date/Time: 05/05/20 23:30 Admit Provider: Radha Mosquera
--- NOTE | 2020-05-05 19:15 | DI.RAD.S_ITS ---
PROCEDURE: XR CHEST 1V INDICATIONS: medical clearance TECHNIQUE: One view of the chest was acquired. COMPARISON: [facility], CR, XR CHEST 1V, 05/04/2020, 13:55. FINDINGS: Surgical changes and devices: Cervical and lumbar partially visualized surgical fixation hardware as before Scattered subsegmental atelectasis and/or scarring. No focal consolidation. Low lung volumes. No pleural effusions or pneumothorax. Mediastinum: Mediastinal contours appear normal. Heart size is normal. Bones and chest wall: No suspicious bony lesions. Overlying soft tissues appear unremarkable. IMPRESSION: Scattered subsegmental atelectasis and/or scarring. No focal consolidation. Dictated by: Stalin Champion M.D. on 05/05/2020 at 19:46 Approved by: Stalin Champion M.D. on 05/05/2020 at 19:47
[2020-05-05 20:08] LABS: Alanine Aminotransferase 12 IU/L (<50); Albumin 3.7 g/dL (3.5-5.0); Albumin Globulin Ratio 1.3 (1.0-2.8); Alkaline Phosphatase 128 U/L (38-126); Aspartate Aminotransferase 28 IU/L (17-59); BUN Creatinine Ratio 17.4 (6-22); Bilirubin Total 0.8 mg/dL (0.2-1.3); Blood Urea Nitrogen 56 mg/dL (9-20); Calcium 7.6 mg/dL (8.4-10.2); Carbon Dioxide 28 mmol/L (22-32); Chloride 96 mmol/L (98-107); Estimated Glomerular Filt Rate 19.3 mL/min (>60); Globulin 2.9 g/dL (1.7-4.1); Glucose 111 mg/dL (80-110); HEMOLYSIS < 15 (0-50); Lipase 25 U/L (23-300); Potassium 3.3 mmol/L (3.4-5.1); Sodium 132 mmol/L (137-145); Total Protein 6.6 g/dL (6.3-8.2)
[2020-05-05 20:20] LABS: NT-proBNP (BNP-Adult 18+) 1850 pg/mL (<125); Troponin I < 0.012 ng/mL (0.01-0.034)
[2020-05-05 20:22] LABS: Add Manual Diff / Slide Review NO; Basophils Absolute Auto 0 /uL (0-100); Basophils Percent Auto 0.3 % (0-2); Eosinophils Absolute Auto 400 /uL (0-450); Eosinophils Percent Auto 4.4 % (2-4); Hematocrit 29.2 % (41-53); Hemoglobin 9.5 g/dL (13.5-17.5); Lymphocytes Absolute Auto 700 /uL (1100-4500); Lymphocytes Percent Auto 8.2 % (25-40); Mean Corpuscular HGB Conc 32.4 % (30-36); Mean Corpuscular Hemoglobin 28.6 PG (26-34); Mean Corpuscular Volume 88.5 fL (80-100); Monocytes Absolute Auto 1100 /uL (0-900); Neutrophils Absolute Auto 6300 /uL (1500-7000); Neutrophils Percent Auto 74.1 % (50-75); Platelet Count 195 X10^3/uL (150-400); Red Cell Distribution Width 17.7 % (11.6-14.8); White Blood Cell Count 8.5 X10^3/uL (4.5-11.0)
[2020-05-05 20:35] LABS: COVID19 -Nasal RAPID Negative (Negative)
[2020-05-05] MEDS: CALCIUM GLUCONATE 9.3 MEQ in SODIUM CHLORIDE 0.9% 50 ML 140 ML IV (21:29)
[2020-05-05] MEDS: POTASSIUM CHLORIDE 20 MEQ/15 ML UDC 40 MEQ PO (21:29)
--- NOTE | 2020-05-05 22:49 | PC.NURSE ---
2220 During turning for depends change and cleaning, multiple areas of maceration/redness noted on bilat buttock/scrotum with multiple stool-soiled dressings. Pt unable assist in turning, swung fist at nurse when asked.
[2020-05-05 22:52] LABS: Appearance Urine UA SL CLOUDY; Bilirubin Urine UA NEGATIVE (NEGATIVE); Color Urine UA YELLOW; Glucose Urine UA NEGATIVE (Negative); Ketones Urine UA NEGATIVE (NEGATIVE); Leukocyte Esterase Urine UA 2+ (NEGATIVE); Nitrite Urine UA POSITIVE (Negative); Occult Blood Urine UA 1+ (Negative); Protein Urine UA NEGATIVE (Negative); Urobilinogen Urine UA 0.2 E.U./dL (0.2)
[2020-05-05 23:00] LABS: Bacteria Urine Many (>30); Culture Indicated Urine Specimen Cultured; RBC Urine 0-1/HPF (0-5/HPF); WBC Urine 30-100/HPF (0-5/HPF)
[2020-05-05] MEDS: CEFTRIAXONE 1 GM/50 ML FROZ.PIGGY IV (23:03)
[2020-05-05] MEDS: SODIUM CHLORIDE 0.9% 1,000 ML 150 ML IV (23:03)
[2020-05-06] VITALS (10 sets, daily range): BP systolic 116–138; BP diastolic 55–83; PULSE 63–79; RESP 18–22; TEMP 36.4–37.3; O2SAT 93–100
--- NOTE | 2020-05-06 00:30 | PM.HP.1 ---
History of Present Illness History of Present Illness Date Patient Seen: 05/06/20 Time Patient Seen: 00:30 Chief complaint: Sent by home health nurse Narrative: This is a 69-year-old male Cristóbal Tubbs who was sent by his home health care wanting placement for retirement. They state they do not feel that he safe. The patient is nonambulatory. He has a history of hypertension, diabetes, lower extremity edema, chronic kidney disease. Patient states that this time he has no acute concerns. He states he does not wish to be in a retirement. He states he would rather in the streets. Patient has been evaluated by social Work several times for this particular situation. When asked why he was transported today he states because home health care wanted him to come although he is clear he does not wish to go to a retirement. He denies any lightheadedness or passing out. He has chronic neck pain from cervical fractures 6 years ago which he states has not changed or worsened. He denies any chest pain or pressure. No shortness of breath. He denies any nausea or vomiting he denies any new GI or urinary symptoms. He states he has swelling in his lower extremities which may be slightly worse. Upon admit to the floor patient was extremely drowsy and had difficulty staying awake to answer questions patient only complained of chronic bilateral shoulder discomfort, patient denied chest pain, shortness of breath, nausea, abdominal pain, vomiting, fever, body aches, chills. Patient's admit vitals temp 97.9?, BP 157/75, HR 71, RR 21, 96% on room air. Labs HGB 9.5, HCT 29.2, sodium 132, chloride 96, BUN 56, potassium 3.3, creatinine 3.22, glucose 111, calcium 7.6, alk-phos 128, estimated GFR 19.3, lipase negative, proBNP 18 50, creatinine clearance calculated at 30 mL per minute, corrected calcium 8.6 mg/dL. U/A: Positive nitrates, leuko esterase 2+, WBC 30-100, Bacteria Many, sent for culture. CXR:Scattered subsegmental atelectasis and/or scarring. No focal consolidation. Patient History Medical History Arthritis BPH w urinary obs/LUTS Cellulitis of left leg Chronic kidney disease, stage 4 (severe) Chronic UTI Depression Diabetes Duodenal ulcer History of cervical fracture History of urinary retention Hyperparathyroidism Osteoarthritis Peripheral vascular disease Renal disease Urge incontinence Surgical History H/O cervical spine surgery History of back surgery History of colectomy History of colon surgery History of fusion of cervical spine History of knee replacement Family & Social History Family History Mother Kidney failure Diabetes mellitus Social History: household members none Safety & Behavioral: Feels Safe in Current Yes Environment Been Physically Hurt or No Threatened By a Person Tobacco & Substance use: Tobacco type cigarettes Smoking Status Former smoker alcohol intake current alcohol intake frequency 0-2 drinks per day Substance Use Type does not use Meds Home Medications and Allergies Home Medications Medication Instructions Recorded Confirmed Type doxazosin 4 mg PO BEDTIME 06/07/18 05/06/20 History duloxetine 60 mg PO BID 09/28/18 05/06/20 History polyethylene glycol 3350 17 g PO DAILY PRN 09/28/18 05/06/20 History silver sulfadiazine [SSD] 1 applic TOPICAL TID 11/12/18 05/06/20 History melatonin 6 mg PO BEDTIME 09/12/19 05/06/20 History docusate sodium [Colace] 100 mg PO DAILY #10 cap 01/26/20 05/06/20 Rx citalopram 20 mg tablet 20 mg PO DAILY #90 tab 02/12/20 05/06/20 Rx glimepiride 1 mg tablet 1 mg PO DAILY #90 tab 03/13/20 05/06/20 Rx zinc oxide [Boudreauxs Butt Paste] 1 applic TOPICAL 6XD PRN #56 g 03/14/20 05/06/20 Rx finasteride 5 mg tablet 5 mg PO DAILY #90 tab 03/23/20 04/29/20 Rx amlodipine [Norvasc] 10 mg PO DAILY 03/25/20 04/29/20 History carvedilol [Coreg] 12.5 mg PO BID 03/25/20 04/29/20 History torsemide 20 mg tablet 40 mg PO DAILY PRN #60 tab 04/20/20 05/06/20 Rx allopurinol 100 mg tablet 200 mg PO DAILY #180 tab 04/24/20 04/29/20 Rx hydrocodone 7.5 mg-acetaminophen 1 tab PO BID PRN #60 tab 04/29/20 05/06/20 Rx 325 mg tablet lidocaine 5 % topical patch 1 patch TOP DAILY #15 ea 04/29/20 05/06/20 Rx lorazepam 0.5 mg tablet 0.5 mg PO DAILY PRN #20 tab 04/29/20 05/06/20 Rx nitrofurantoin monohyd/m-cryst 100 mg PO Q12H 5 Days #10 cap 05/03/20 05/06/20 Rx [Macrobid] Allergies Allergy/AdvReac Type Severity Reaction Status Date / Time latex Allergy Mild IRRITATION Verified 05/04/20 13:39 carisoprodol [From Soma] Allergy Verified 05/04/20 13:39 hydromorphone Allergy Verified 05/04/20 13:39 Sulfa (Sulfonamide AdvReac Mild N&V 1HOUR Verified 05/04/20 13:39 Antibiotics) AFTER RX, THINKS IT IS RELATED Review of Systems Review of Systems ROS: Yes All systems reviewed with the patient and are negative except as otherwise documented Musculoskeletal Musculoskeletal: Reports myalgias (Generalized to bilateral shoulders) Exam Vital Signs (past 8 hours): - 05/05/20 20:59 05/05/20 21:00 05/05/20 21:01 Pulse Rate 79 73 74 Respiratory Rate Blood Pressure 147/65 H Pulse Oximetry 92 95 95 05/05/20 21:30 05/05/20 21:31 05/05/20 22:00 Pulse Rate 72 72 74 Respiratory Rate 24 Blood Pressure 150/75 H Pulse Oximetry 89 L 92 94 05/05/20 22:14 05/05/20 22:30 05/05/20 23:00 Pulse Rate 80 73 71 Respiratory Rate 24 25 H 24 Blood Pressure 148/67 H 146/68 H Pulse Oximetry 95 95 96 05/05/20 23:30 05/05/20 23:41 Pulse Rate 75 71 Respiratory Rate 23 21 Blood Pressure 157/75 H Pulse Oximetry 96 96 Oxygen Delivery Method Room Air Narrative Exam Narrative: General: Patient is a well-developed, obese male in no distress at this time sleeping heavily. HEENT: Normocephalic, atraumatic, extraocular muscles intact, oral pharynx is clear and mucous membranes are moist. Neck is supple and symmetric, trachea is midline, no adenopathy, no thyroid enlargement, nontender, no masses palpated. Negative for JVD Chest: Normal AP diameter and contour without kyphoscoliosis, no nasal flaring, retractions, or tachypneic labored Lungs: Auscultation of all lung leone are clear without adventitious sounds, wheezes, rhonchi, or rales. Cardio: S1 & S2 with regular rate and rhythm without rubs, or gallops, no carotid bruit, no cardiac pulsations present. +2 Murmur Abdomen: Soft nontender, negative for organomegaly, or masses. Bowel sounds are present in all 4 quadrants without guarding or rebound, no CVA tenderness. Musculoskeletal: Patient patient has bilateral venous insufficiency, erythematous, +1 edema bilaterally, open seeping wound on the right foot 2nd distal toe medial side, bilateral feet & legs are wrapped to the knee. Skin: see above Neuro: sleepy orientated x3, strength is +5/5 in all extremities, sensation to touch intact, no gross deficits noted of cranial nerves. Psych: Patient has a well-kept appearance, appropriate affect, mental status attitude thought context and judgment are appropriate for age. Objective Labs Result Diagrams: 05/05/20 19:44 05/05/20 19:44 Labs: Laboratory Results - last 24 hr 05/05/20 05/05/20 05/05/20 19:44 19:44 19:44 WBC 8.5 RBC 3.30 L Hgb 9.5 L Hct 29.2 L MCV 88.5 MCH 28.6 MCHC 32.4 RDW 17.7 H Plt Count 195 Neut % (Auto) 74.1 Lymph % (Auto) 8.2 L Divide % (Auto) 13.0 Eos % (Auto) 4.4 H Baso % (Auto) 0.3 Neut # (Auto) 6300 Lymph # (Auto) 700 L Divide # (Auto) 1100 H Eos # (Auto) 400 Baso # (Auto) 0 Sodium 132 L Potassium 3.3 L Chloride 96 L Carbon Dioxide 28 BUN 56 H Creatinine 3.22 H Estimated GFR 19.3 L BUN/Creatinine Ratio 17.4 Glucose 111 H Calcium 7.6 L Total Bilirubin 0.8 AST 28 ALT 12 Alkaline Phosphatase 128 H Troponin I < 0.012 NT-Pro-B Natriuret Pep 1850 H Total Protein 6.6 Albumin 3.7 Globulin 2.9 Albumin/Globulin Ratio 1.3 Lipase 25 Urine Color Urine Appearance Urine pH Ur Specific [place] Urine Protein Urine Glucose (UA) Urine Ketones Urine Occult Blood Urine Nitrate Urine Bilirubin Urine Urobilinogen Ur Leukocyte Esterase Urine RBC Urine WBC Urine Bacteria Ur Culture Indicated? SARS-CoV-2 (PCR) 05/05/20 05/05/20 20:18 22:34 WBC RBC Hgb Hct MCV MCH MCHC RDW Plt Count Neut % (Auto) Lymph % (Auto) Divide % (Auto) Eos % (Auto) Baso % (Auto) Neut # (Auto) Lymph # (Auto) Divide # (Auto) Eos # (Auto) Baso # (Auto) Sodium Potassium Chloride Carbon Dioxide BUN Creatinine Estimated GFR BUN/Creatinine Ratio Glucose Calcium Total Bilirubin AST ALT Alkaline Phosphatase Troponin I NT-Pro-B Natriuret Pep Total Protein Albumin Globulin Albumin/Globulin Ratio Lipase Urine Color Yellow Urine Appearance Sl cloudy Urine pH 5.0 Ur Specific [place] 1.010 Urine Protein Negative Urine Glucose (UA) Negative Urine Ketones Negative Urine Occult Blood 1+ H Urine Nitrate Positive Urine Bilirubin Negative Urine Urobilinogen 0.2 Ur Leukocyte Esterase 2+ H Urine RBC 0-1/hpf Urine WBC 30-100/hpf H Urine Bacteria Many (>30) H Ur Culture Indicated? Specimen cultured SARS-CoV-2 (PCR) Negative Assessment & Plan Assessment & Plan narrative: 1. UTI, complicated, stable condition, present on admission - rule out sepsis, cystitis vs. pyelonephritis vs. epididymitis vs. prostatitis vs.nephrolithiasis, acute, present on admission -admit vitals temp 97.9?, BP 157/75, HR 71, RR 21, 96% on room air. Labs HGB 9.5, HCT 29.2, sodium 132, chloride 96, BUN 56, potassium 3.3, creatinine 3.22, glucose 111, calcium 7.6, alk-phos 128, estimated GFR 19.3, lipase negative, proBNP 18 50, creatinine clearance calculated at 30 mL per minute, corrected calcium 8.6 mg/dL. U/A: Positive nitrates, leuko esterase 2+, WBC 30-100, Bacteria Many, sent for culture. CXR:Scattered subsegmental atelectasis and/or scarring. No focal consolidation. SOFA score:3 - vital signs q.4 hours, intake and output monitored Q shift, weight measure daily, diet: Clear liquids patient may advance as tolerated -IV fluid normal saline 100 cc/HR, gentle rehydration- reassess in am and determine to increase fluids or restriction depending on volume status.92%-O2 saturation - check orthostatics upon admission and once per shift, activity as tolerated, strict I&O, daily weights, call for urinary output less than 200 mL per shift, temp >38.5, systolic <100 or Heart rate >110 or an SaO2 less than 92%, -labs ordered: A.m. daily: CBC, CMP, PT. ProBNP, Mag blood cultures x2 and urine culture pending -due to last cultures sensitivity with resistance to Rocephin and patient has allergy to sulfa will order meropenem 1 g IV q.8 hours, if patient not improving in 48-72 hours will consider ordering: labs UA with microscopy, Mag, phosphate, FeNa, urinary Na, urine osmolality, urine specific gravity, and urine sediment, renal/ abdominal ultrasound and/or CT abdominal pelvis -prevention vaccine: Recommend verification patient has received yearly flu vaccine, shingles, pneumonia 2. Acute kidney injury, acute on chronic, present on admission, condition guarded -monitor renal labs, will cautiously consider diuresis if needed. 3. Hypokalemia, acute, present on admission -patient provided 40 mEq of potassium in ER will monitor recheck electrolytes in a.m. 4. Chronic venous stasis changes with chronic wound left lower extremity - Very difficult case because of his obesity and renal failure and anemia also outpatient use of Lasix may have contributed to acute kidney injury in attempts to control fluid overload and edema. We will monitor as we elevate his legs and request wound care consult. We did not do wound culture because there were not any available areas to culture. He did not have a leukocytosis and will be hard to monitor clinical response due to his fluid overload and the chronicity of this wound. 5. History of duodenal ulcer with no evidence of acute exacerbation - Continue on Protonix. Continue off NSAIDs. Will continue to monitor and will guaiac stools 6. Diabetes type 2 not insulin dependent, acute on chronic, controlled, present on admission -Holding patient's metformin will do a.c. and hs blood sugar checks and patient placed on insulin scale while inpatient 7. Chronic pain issues - At this time will provide hydrocodone as needed for pain Code status: Full code Surrogate/plan of care:Sister Rosa MCDONNELL PCR: Negative VTE prophylaxis: Lovenox 30 mg and SCDs Scores SOFA PaO2/FIO2: >=400 mmHg Platelets: >= 150 Bilirubin: < 1.2 mg/dL Hypotension: MAP >= 70 mmHg Emi Coma Scale: 13-14 Renal: Creatinine 2.0-3.4 mg/dL SOFA Score: 3 Wells' Criteria for PE Clinical signs and symptoms of DVT: No PE is #1 Dx or equally likely: No Heart rate > 100: No Immobilization at least 3 days or surg in previous 4 weeks: Yes History of PE or DVT: No Hemoptysis: No Malignancy w/Treatment within 6 months or palliative: No Wells' PE Score total: 1.5
[2020-05-06] MEDS: SODIUM CHLORIDE 0.9% 1,000 ML 100 ML IV ×2 (01:00→12:32)
--- NOTE | 2020-05-06 01:20 | PC.NURSE ---
0015 Pt arrived on unit via stretcher from ED. He is alert and oriented x2, unsure of why he is here and disoriented to what day it is. His eyes are open, he is calm, cooperative and talkative. He has a right hand PIV with NS infusing at 150mL/h, and is on room air. He is unable to lie flat due to SOB and audible wheeze. Both of his lower extremities have what looks like an UNABOOT wrap; I was told in report he has a stage II ulcer, unclear of which leg, and is being taken care of by the WOUND CLINIC. He c/o bilateral shoulder pain 09/12. States, I don't know why I was brought it. I wasn't aware of anything wrong. I responded with, Well, what I was told in report is that [facility] needed an extra set of eyes on your care management because 'they are having difficulty managing your care.' Pt seemed satisfied with that answer. No s/s of distress.
[2020-05-06 01:23] LABS: Creatinine Urine Random 41.9 mg/dL
[2020-05-06] MEDS: LORazepam 0.5 MG TABLET PO ×2 (01:39→23:25)
[2020-05-06] MEDS: ACETAMINOPHEN 325 MG TABLET 650 MG PO (01:39)
[2020-05-06] MEDS: HYDROCODONE/ACET 10/325 TABLET 1 TAB PO ×3 (01:50→21:20)
[2020-05-06] MEDS: MEROPENEM 500 MG in SODIUM CHLORIDE 0.9% 100 ML 200 ML IV ×2 (06:36→19:59)
[2020-05-06 06:52] LABS: Hematocrit 28.7 % (41-53); Hemoglobin 9.1 g/dL (13.5-17.5); Mean Corpuscular HGB Conc 31.8 % (30-36); Mean Corpuscular Hemoglobin 28.8 PG (26-34); Mean Corpuscular Volume 90.3 fL (80-100); Platelet Count 176 X10^3/uL (150-400); Red Blood Cell Count 3.18 X10^6/uL (4.5-5.9); Red Cell Distribution Width 17.6 % (11.6-14.8); White Blood Cell Count 8.2 X10^3/uL (4.5-11.0)
[2020-05-06 06:53] LABS: Add Manual Diff / Slide Review YES
[2020-05-06 07:00] LABS: Alanine Aminotransferase 11 IU/L (<50); Albumin 3.2 g/dL (3.5-5.0); Albumin Globulin Ratio 1.1 (1.0-2.8); BUN Creatinine Ratio 18.6 (6-22); Bilirubin Total 0.5 mg/dL (0.2-1.3); Blood Urea Nitrogen 58 mg/dL (9-20); Calcium 7.3 mg/dL (8.4-10.2); Carbon Dioxide 28 mmol/L (22-32); Chloride 100 mmol/L (98-107); Estimated Glomerular Filt Rate 20.1 mL/min (>60); Globulin 2.8 g/dL (1.7-4.1); Glucose 151 mg/dL (80-110); Sodium 134 mmol/L (137-145)
[2020-05-06 07:06] LABS: Hemoglobin A1C% w Est Avg Glu 6.6 % (4.0-6.0)
[2020-05-06 07:08] LABS: NT-proBNP (BNP-Adult 18+) 1970 pg/mL (<125)
[2020-05-06 07:12] LABS: HEMOLYSIS 67 (0-50)
[2020-05-06 07:13] LABS: Alkaline Phosphatase 92 U/L (38-126); Aspartate Aminotransferase 33 IU/L (17-59); Magnesium 1.4 mg/dL (1.6-2.3); Potassium 3.7 mmol/L (3.4-5.1)
[2020-05-06 07:27] LABS: Prostate Specific Antigen 0.796 ng/mL (0.10-4.00)
[2020-05-06 07:30] LABS: Anisocytosis 1+; Neutrophils Absolute Manual 6314 /uL (3000-5900); Nucleated Red Blood Cells 1 #/Diff; Polychromasia 1+; Total Cells Counted 100; Toxic Vacuolation Present
[2020-05-06 07:31] LABS: Toxic Granulation Present
[2020-05-06] MEDS: DULOXETINE 30 MG CAPSULE 60 MG PO ×2 (09:01→21:19)
[2020-05-06] MEDS: MAGNESIUM SULFATE 2 GM/50 ML PIGGYBACK IV (09:01)
[2020-05-06] MEDS: DOCUSATE 100 MG CAPSULE PO (09:02)
[2020-05-06] MEDS: ENOXAPARIN 30 MG/0.3 ML SYRINGE SUBCUT (09:02)
[2020-05-06] MEDS: LIDOCAINE PATCH 1 EACH ADH..PATCH TOP (09:02)
[2020-05-06] MEDS: CITALOPRAM 10 MG TABLET 20 MG PO (09:02)
[2020-05-06] MEDS: INSULIN ASPART 100 UNIT/ML INSULN PEN SUBCUT ×3 (09:05→17:41)
--- NOTE | 2020-05-06 10:47 | CM.DANOTE ---
Addendum entered by NOELLE Vinson 05/06/20 15:49: ADD: Return call from Negrita SCOTT CM [facility] has an opening and planning to call pt's sister Rosa to set up an in-person assessment to determine if they can accept pt (unsure how quickly this will happen?) Return call from [facility], they staffed pt and decline accepting him at this time. Call from Jesus at [facility], pt is currently open to service and if he remains OBS Status and discharges home no need for Resume Orders. Maryan continuing to review for accepting pt under his Medicaid and will update LARS tomorrow Thurs on decision. LARS faxed [facility] pt's med list and RN notes but PT/OT and MD prog note not available yet at this time and will need to be faxed in the morning. LARS updated pt bedside on potential SNF reviews and possible option if they can accept. Pt agreeable. BF Original Note: Patient is a 69 year old male who was admitted on 05/05/20 for UTI and renal failure upon admission. Pt has [facility] and [facility] for insurance and his PCP is Dr. Mariano Keller. EMR was reviewed. Per MD, pt likely could be ready for d/c today or tomorrow. Per Clinical Informatics Spec Reshma, pt has multiple ED visits to [facility] over the past few days and was seen by Manager Justice in the ED on Monday05/04/20 and confirmed that pt still resides in [facility] in [place] but no longer has roommates but does have increased [facility] support and and has wound care at the clinic. JOAO Justice also discussed resources with pt and sister/DPOA Rosa and sister has been in the process of completing pwk for home DME like lift chair and [employer] for pt's ongoing outpt appointments with wound care and PCP. Discussion started with pt and sister regarding possible [facility] placement as pt continues to strongly refuse half-way care at SNF or Assisted Living. Pt seemed somewhat open to the idea of Adult Family Home though. From ED, JOAO Justice contacted HH, PCP office, APS report made, and SONIA SHEPHERD involved. Pt discharged home Monday evening but returned to ED yesterday 05/05/20 and was eventually admitted to the Acute Care floor. PT/OT ordered and pending. SW met bedside with pt and explained role and pt confirms above information and pt states that he would consider SNF short stay rehab if really needed. SW also discussed more indepth the option of possible AF[facility] for additional support as well as still having a sense of independence and pt seems fairly interested but has questions regarding rules at AF[facility] that SW could not answer. Pt also agreeable with d/c home if stable and no other options available at time of d/c and pt aware that he may be medically stable for d/c today potentially. LARS called pt's assigned SONIA Rees [phone] and she is very aware of pt as she spoke to JOAO Justice yesterday. She confirms that she faxed pt's half-way care assessment/daily rate/pt info to [facility] in [place] and is still waiting to hear if they have an open Male Medicaid Bed and would be willing to accept his rate and Negrita states [facility] is typically quick to respond and Negrita will keep LARS updated on [facility]. Negrita states that if [facility] is not an option, she has given a list of AFH/JANET for sister/DPOA to begin calling facilities for openings under Medicaid. LARS informed Negrita that pt likely will not be kept in the hospital for manager long term care placement but will attempt SNF. SW called [facility] and discussed pt situation and they confirm they are willing to review and have openings and would determine if pt would qualify for COVID waiver vs attempting to access his Medicaid for short stay SNF as pt is OBS Status. SW called [facility] with new referral as well as they also can utilize COVID waiver. LARS faxed referral to [facility] and [facility] for review. Plan: SW to follow closely for SNF review and return call from SONIA Rees towards determining plan at d/c of possible [facility] in [place] vs SNF under COVID waiver vs return home with and SONIA RIVERO while LTC plan being worked out. NOELLE Vinson
--- NOTE | 2020-05-06 11:25 | CM.DPNOTE ---
Faxed clinicals to [facility] Attn: Shawna Garvin on 05/06/20 per Reshma. Fax confirmation received. Evy Collins CM Asst.
--- NOTE | 2020-05-06 14:05 | CM.DPNOTE ---
Faxed H&P to Negrita at [facility] [phone] per Gemma on 05/06/20. Will fax PN if one becomes available. Fax confirmation received. Evy Collins CM Asst.
--- NOTE | 2020-05-06 15:38 | PC.NURSE ---
Pt's home medications verified with pt's sister over the phone, all but new antibiotics rx'd by wound care MD were verified. Called office to receive abx rx: doxycycline 100mg start date 05/04 BID x 10 days, and cefuroxime axetil 500mg start 3/ BID x 10 days. Pt reports never starting these two medications.
--- NOTE | 2020-05-06 15:41 | PC.NURSE ---
Credit Director from Wound Care department brought wound care orders to me recommending we follow the orders for wound care. Paper copy left in chart.
--- NOTE | 2020-05-06 15:44 | PC.NURSE ---
0900- Dr. Jan fajardo'khalif Lidocaine patch to be cut in half, 1/2 placed on each shoulder.
--- NOTE | 2020-05-06 16:18 | PC.NURSE ---
Addendum entered by Becki Najera R.N. 05/06/20 21:56: Multiple staff members to assist pt back into bed. Pt has difficulty turning self in bed following use of bedpan for large bowel movement. Barrier cream applied to excoriated buttocks and scrotum. Rationale provided to pt re pt's frequent requests for juice with diabetes and elevated blood sugars. Requires reinforcement. Small amounts juice given to pt diluted with larger quantities water this shift. Lidocaine patches x 2 removed from pt's back @ hs. No further c/o pain. Addendum entered by Becki Najera R.N. 05/06/20 18:05: P.T. mobilizes pt to chair and places waffle cushion under pt. Addendum entered by Becki Najera R.N. 05/06/20 16:40: Rationale for scd's provided to pt. Pt states preference is to not wear these. Encouraged ankle waving while awake and pt provides return demonstration. Original Note: Pt awake, alert resting quietly in bed. Slight end expiratory wheeze audible, but breath sounds are clear to auscultation throughout all lung leone. Pt c/o BL shoulder pain, chronic, 09/12. Administered norco as per pt's request. Pt follows commands appropriately and is mentating appropriately. BL coban wraps intact to BL LE's. These dressings are clean and intact. Pt admits to neuropathy to feet BL, but is able to wiggle exposed toes. Toes to feet BL are dry and flaky, but equally warm and pale to touch.
--- NOTE | 2020-05-06 16:27 | DIET.PN ---
Dietary Progress Note Assessment: 69y M c CKD4 and chronic venous stasis admitted for acute kidney injury sent by home health for help c placement referred to nutrition for hx of DM. Pts A1c has increased to 6.6 from 5.7 in July 23 but still remains well controlled c metformin and diet. Pt's weight hx shows multiple submissions of 127.006kg over past 5mo, recc accurate weight be taken. Pt lives in apartment c HH once daily, pt receives MOW and eats this for midday meal. Pt often has yogurt for breakfast and his sister or daughter will bring him dinner. HT: 177.8cm WT: 127kg UBW: 120-132kg BMI: 40.2 Labs: eGFR 20.1 L (baseline 25-30), Cr 3.11 H (baseline 2.2-2.9), Mg 1.4 L Interventions: 1. Recc accurate weight from bedscale when able. 2. Sending pt a CCD blueberry smoothie c breakfast to support protein and fiber needs. Diet Order: HH/CCD3 EER: 2200kcal (18kcal/kg per obese), 75g PRO (0.6g/kg per CKD) Monitoring/Evaluations: renal fxn
--- NOTE | 2020-05-06 16:47 | OT.IP.EVAL ---
Past Medical History (Last Reviewed 05/06/20 @ 00:30 by KEVIN MccartyMINOO) Arthritis BPH w urinary obs/LUTS Cellulitis of left leg Chronic kidney disease, stage 4 (severe) Chronic UTI Depression Diabetes Duodenal ulcer History of cervical fracture History of urinary retention Hyperparathyroidism Osteoarthritis Peripheral vascular disease Renal disease Urge incontinence Surgical History (Last Reviewed 05/06/20 @ 00:30 by MATEUSZ Mccarty) H/O cervical spine surgery History of back surgery History of colectomy History of colon surgery History of fusion of cervical spine History of knee replacement Occupational Therapy Inpatient Evaluation/Re-Eval M1 PT/OT-IP Prior Functional Status Start: 05/06/20 18:27 Freq: NEEDED Status: Active Protocol: Document 05/06/20 16:47 [facility] (Rec: 05/06/20 19:03 [facility] [id number]) Medical Review Prior Functional Status Medical History Reviewed Yes Communication Pt able to communicate his needs. Mobility and Gait Pt states usually just transfers to his wc stand pivot or use of FWW to transfer to his wc. Activities of Daily Living and IADL's Pt states able to do all his basic ADl's and needs assist with showers, meals, laundry, and his sister assists with his medications. Social History Household Members none Living Arrangements Apartment/Condo Number of Floors (Floors) One Floor Number of Stairs To Enter/Railing? Pt has a ramp to get into his apartment. Home Environment Standard Height Toilet,Tub/ Shower Home Equipment Front Wheel Walker,Four Wheel Walker,Manual Wheelchair,Tub Transfer Bench,Hand Held Shower,Long Handled Sponge, State Inspector,Sock Aid,Lift Recliner ,Bed Rails,Grab Bars Near Toilet,Grab Bars In Shower M2 OT-IP Current Condition Start: 05/06/20 18:27 Freq: Status: Active Protocol: Document 05/06/20 16:47 [facility] (Rec: 05/06/20 19:03 [facility] [id number]) Occupational Therapy Current Condition Current Condition Evaluation Date 05/06/20 Treatment Diagnosis UTI, decreased mobility Diagnosis Onset Date 05/05/20 M3 OT- IP Subjective and Pain Start: 05/06/20 18:27 Freq: Status: Active Protocol: Document 05/06/20 16:47 [facility] (Rec: 05/06/20 19:03 [facility] [id number]) OT- Subjective Occupational Therapy Visit Type Type Initial Evaluation Visit Start Time 16:47 Visit Stop Time 17:27 Total Visit Minutes 40 Occupational Therapy Visit Comments Patient Comments Pt agreed to get up for dinner to the recliner. Patient/Caregiver Goals To go home. OT Pain Assessment Pain When Pain Assessed At Rest Pain Present Pain Present Pain Reported Location Bilateral Shoulder Intensity 6 Scale Used Numeric (0 - 10) M4 OT- IP ADL's Start: 05/06/20 18:27 Freq: Status: Active Protocol: Document 05/06/20 16:47 [facility] (Rec: 05/06/20 19:03 [facility] [id number]) OT [id number] Comments OT Self-Feeding Comments NOt at meal time. OT ADL-Grooming General Evaluation Grooming Ability Minimal Assistance Areas Needing Assistance Retrieving/Set-up of Grooming Items,Combing/Brushing Hair Comments OT Grooming Comments Assist to brush his hair due to decreased AROM in BUE. OT ADL-Oral Care General Eval Oral Care Ability Independent OT ADL-Dressing General Eval Lower Body Dressing Ability Total Assistance Areas Needing Assistance Socks,Shoes Comments OT Dressing Comments Assist to naty socks and velcro shoes at this time. OT ADL-Toileting Comments OT Toileting Comments Pt not having to go. Nursing aid able to assist to clean pt off as brief a little soiled/ wet. Pt states his has a toilet paper aid but not successful to using it well. Pt states, I can clean myself up good but not great. OT ADL-Bathing Comments OT Bathing Comments NOt performed. M5 OT- IP IADL's Start: 05/06/20 18:27 Freq: Status: Active Protocol: Document 05/06/20 16:47 [facility] (Rec: 05/06/20 19:03 [facility] [id number]) OT-Instrumental Activities of Daily Living Medication Management Medication Management Caregiver Administers Money Management Money Management Comments Pt states does his own pain management needs. Meal Preparation Meal Preparation Caregiver Provides Assist Rolling Mill Operator Helper Rolling Mill Operator Helper Caregiver Provides Assist Driving Driving Comments Pt states still drives but has not in awhile. M6 OT- IP Functional Cognition Start: 05/06/20 18:27 Freq: Status: Active Protocol: Document 05/06/20 16:47 [facility] (Rec: 05/06/20 19:03 [facility] [id number]) Cognitive Factors Limiting Selfcare Function Cognitive Ability Level of Alertness Alert Patient Orientation Name,Place Attention Span Ability Capable of Focused Attention, Capable of Sustained Attention Ability to Follow Commands Able to Follow One Step Commands Cognitive Tests SLUMS To retest SLUMS, pt scored 24/ 30 6/7/20 Cognitive Comments Cognitive Assessment Comments Pt tends to like to joke around a lot. Pt able to answer all home safety questionnaire with 80% accuracy. To reassess SLUMS to see if pt at his baseline. OT- Vision and Hearing OT- Hearing Assessment OT- Hearing Assessment WFL OT- Vision Assessment Visual Acuity WFL M7 OT- IP Mobility and Balance Start: 05/06/20 18:27 Freq: Status: Active Protocol: Document 05/06/20 16:47 [facility] (Rec: 05/06/20 19:03 [facility] [id number]) OT- Bed Mobility Assessment Supine to Sit Supine to Sit Assist Standby Assistance,Bedrails OT-Transfer Assessment Sit to and From Stand Sit to and from Stand Moderate Assistance,Maximum Assistance,2 Person Assistance Transfers Transfer Ability Moderate Assistance,2 Person Assistance Technique Transfer Destination Bed,Chair Transfer Technique Stand Step Pivot Devices Transfer Assistive Devices Gait Belt,Front Wheeled Walker Comments Mobility Comments SBA with HOB up and bed rail to get to the edge of the bed, Sit to stand MODA X 2 to MAX A X 2 pending on the height pt sitting on. Transfer MOD A X2 for balance, steadying the Fww and to help ease pt down to the recliner. OT- Gait Assessment Comments Gait Ability Comments Transfer only at this time. OT- Balance Assessment Sitting Balance and Reactions Static Sitting Balance Ability Good Dynamic Sitting Balance Ability Fair Standing Balance and Reactions Static Standing Balance Ability Poor M8 OT- IP Objective Assessments Start: 05/06/20 18:27 Freq: Status: Active Protocol: Document 05/06/20 16:47 [facility] (Rec: 05/06/20 19:03 [facility] [id number]) OT Gross Range of Motion Upper Extremity Range of Motion Assessment Bilaterally Impaired OT Strength Upper Extremity Strength Assessment Bilaterally Impaired Comments Strength Comments 2-/5 to 4-/5 from proximal to distal for BUE. OT- Coordination Assessment Comments Coordination Comments Increased time to open package for toothbrush. Assist to open toothpaste cap. OT-Muscle Tone Assessment Muscle Tone WNL Yes M9 OT- IP Assessment and Plan Start: 05/06/20 18:27 Freq: Status: Active Protocol: Document 05/06/20 16:47 [facility] (Rec: 05/06/20 19:03 [facility] [id number]) OT Summary Assessment and Plan Potential Rehabilitation Potential Good Analytic Complexity at Evaluation Low Summary OT Impairments Pain,Strength,Balance, Functional Cognition, Functional Mobility,Grooming, Dressing,Toileting,Bathing, Toilet Transfers,Shower Transfers,Activity Tolerance Progress Towards Goals Slow Progress due to Medical Issues,Slow Progress due to Activity Tolerance,Slow Progress due to Cognition Assessment Summary Pt low complexity and main barriers are decreased balance , strength, activity tolerance and now needing two person assist to stand and transfer. Pt not at his baseline as prior able to do all his transfers on his own and all his basic ADL's. Pt would benefit from skilled rehab. Goals Self-Feeding Goal Independent Grooming Goal Independent Dressing Goal Independent Toileting Goal Independent Bathing Goal Moderate Assistance Toilet Transfer Goal Independent Shower Transfer Goal Minimal Assistance Days to Meet Goals 15 Frequency of Treatment Frequency Of Treatment Once a Day Treatment Plan OT Treatment Plan ADL Training,Functional Cognition Training,Functional Mobility,Patient/Family Education,Discharge Planning Other Treatment Recommendations and Next Transfer to [facility] with MODA x 1 Treatment Focus Discharge Recommendations OT Discharge Recommendations SNF Rehab Home Equipment Needs defer to SNF Transportation Needs at Discharge Wheelchair/Cabulance
[2020-05-06] MEDS: MELATONIN 3 MG TABLET 6 MG PO (21:19)
[2020-05-06] MEDS: DOXAZOSIN 4 MG TABLET PO (21:19)
[2020-05-07] VITALS (9 sets, daily range): BP systolic 131–140; BP diastolic 57–85; PULSE 73–76; RESP 16–22; TEMP 36.4–37.1; O2SAT 93–99
[2020-05-07] MEDS: MEROPENEM 500 MG in SODIUM CHLORIDE 0.9% 100 ML 200 ML IV ×2 (06:03→18:51)
[2020-05-07 06:26] LABS: Add Manual Diff / Slide Review NO; Basophils Absolute Auto 0 /uL (0-100); Basophils Percent Auto 0.4 % (0-2); Eosinophils Absolute Auto 300 /uL (0-450); Eosinophils Percent Auto 4.6 % (2-4); Hematocrit 27.1 % (41-53); Hemoglobin 8.6 g/dL (13.5-17.5); Lymphocytes Absolute Auto 800 /uL (1100-4500); Lymphocytes Percent Auto 11.1 % (25-40); Mean Corpuscular HGB Conc 31.9 % (30-36); Mean Corpuscular Hemoglobin 28.8 PG (26-34); Mean Corpuscular Volume 90.5 fL (80-100); Monocytes Absolute Auto 1200 /uL (0-900); Monocytes Percent Auto 16.4 % (3-14); Neutrophils Absolute Auto 4900 /uL (1500-7000); Neutrophils Percent Auto 67.5 % (50-75); Platelet Count 171 X10^3/uL (150-400); Red Blood Cell Count 2.99 X10^6/uL (4.5-5.9); White Blood Cell Count 7.2 X10^3/uL (4.5-11.0)
[2020-05-07 06:33] LABS: BUN Creatinine Ratio 18.4 (6-22); Blood Urea Nitrogen 56 mg/dL (9-20); Calcium 7.2 mg/dL (8.4-10.2); Carbon Dioxide 28 mmol/L (22-32); Chloride 102 mmol/L (98-107); Estimated Glomerular Filt Rate 20.6 mL/min (>60); Glucose 124 mg/dL (80-110); HEMOLYSIS < 15 (0-50); Magnesium 1.8 mg/dL (1.6-2.3); Potassium 3.3 mmol/L (3.4-5.1); Sodium 136 mmol/L (137-145)
[2020-05-07] MEDS: DOCUSATE 100 MG CAPSULE PO (08:29)
[2020-05-07] MEDS: ENOXAPARIN 30 MG/0.3 ML SYRINGE SUBCUT (08:29)
[2020-05-07] MEDS: LIDOCAINE PATCH 1 EACH ADH..PATCH TOP (08:29)
[2020-05-07] MEDS: INSULIN ASPART 100 UNIT/ML INSULN PEN SUBCUT ×2 (08:29→12:56)
[2020-05-07] MEDS: CITALOPRAM 10 MG TABLET 20 MG PO (08:29)
[2020-05-07] MEDS: DULOXETINE 30 MG CAPSULE 60 MG PO ×2 (08:29→20:46)
--- NOTE | 2020-05-07 10:36 | PT.IIE ---
Surgical History (Last Reviewed 05/06/20 @ 00:30 by MATEUSZ Mccarty) H/O cervical spine surgery History of back surgery History of colectomy History of colon surgery History of fusion of cervical spine History of knee replacement Medical History (Last Reviewed 05/06/20 @ 00:30 by MATEUSZ Mccarty) Arthritis BPH w urinary obs/LUTS Cellulitis of left leg Chronic kidney disease, stage 4 (severe) Chronic UTI Depression Diabetes Duodenal ulcer History of cervical fracture History of urinary retention Hyperparathyroidism Osteoarthritis Peripheral vascular disease Renal disease Urge incontinence Physical Therapy Inpatient Evaluation/Re-Eval M1 PT/OT-IP Prior Functional Status Start: 05/06/20 18:27 Freq: NEEDED Status: Active Protocol: Document 05/07/20 10:36 AW (Rec: 05/07/20 12:41 AW [id number]) Medical Review Prior Functional Status Medical History Reviewed Yes Communication Pt able to communicate his needs. Mobility and Gait Pt states usually just transfers to his wc by stand pivot. He places his w/c directly in front of him, reaches across to contact the arms and then turns 180 degrees to sit on the chair. He will occasionally use a FWW to transfer if feeling particularly weak. Activities of Daily Living and IADL's Pt states able to do all his basic ADl's and needs assist with showers, meals, laundry, and his sister assist with his medications. Prior Functional Level (Other details) Pt has multiple caregivers including one who works 4 hours/day during the week and another who works 2.5 hours per night to help get the pt to bed. His sister is a [employer] caregiver who provides additional assist. Pt admits to falling a few times since he was last here in November . He typically slides forward from his chair to the floor. He has a Life Alert which he uses if no caregiver is present after a fall. Pt states he is currently working on getting a power w/c. Social History Household Members none Living Arrangements Apartment/Condo Number of Floors (Floors) One Floor Number of Stairs To Enter/Railing? Pt has a ramp to get into his apartment. Home Environment Standard Height Toilet,Tub/ Shower Home Equipment Front Wheel Walker,Four Wheel Walker,Manual Wheelchair,Tub Transfer Bench,Hand Held Shower,Long Handled Sponge, Deputy Attorney General,Sock Aid,Lift Recliner ,Bed Rails,Grab Bars Near Toilet,Grab Bars In Shower M2 PT-IP Current Condition Start: 05/07/20 08:34 Freq: NEEDED Status: Active Protocol: Document 05/07/20 10:36 AW (Rec: 05/07/20 12:41 AW [id number]) Physical Therapy Current Condition Current Condition Evaluation Date 05/07/20 Treatment Diagnosis UTI; chronic BLE wounds; impaired mobility Onset Date 05/06/20 Precautions Other Precautions falls, BLE wrapped in coban over wound dressings M3 PT-IP Subjective Start: 05/07/20 08:34 Freq: NEEDED Status: Active Protocol: Document 05/07/20 10:36 AW (Rec: 05/07/20 12:41 AW [id number]) Subjective Physical Therapy Visit Type Type Initial Evaluation Visit Start Time 09:53 Visit Stop Time 10:39 Total Visit Minutes 43 Notes Co-tx with OT Number of SEROLOGY TEACHER Visits 0 Physical Therapy Visit Comments Patient Comments I don't know why I'm here and why they're pushing these antibiotics on me. Patient Goals Improve ability to participate in his own care. Therapy Pain Assessment Pain When Pain Assessed During Mobility Pain Present Pain Present Denied Pain M4 PT-IP Mobility and Gait Start: 05/07/20 08:34 Freq: NEEDED Status: Active Protocol: Document 05/07/20 10:36 AW (Rec: 05/07/20 12:41 AW [id number]) PT-Bed Mobility Assessment Supine to Sit Supine to Sit Contact Guard Assistance,Head of Bed Elevated,Bedrails Scooting Scooting to Edge of Bed Moderate Assistance PT-Transfer Assessment Sit to and From Stand Sit to and from Stand Minimal Assistance,1 Person Assistance,Use of Upper Extremities Equipment Transfer Assistive Device None,Gait Belt,Front Wheeled Walker Orthotic/Prosthetic Devices or Brace: No Transfers Transfer Destination Chair Transfer Technique Stand Pivot Transfer Ability Level of Assist Minimal Assistance,Moderate Assistance,2 Person Assistance Comments Mobility Comments Pt was lying with HOB elevated as PT arrived. He requested HOB be raised near maximally before attempting to transfer to sitting EOB. He did so with heavy use of the bed features and CGA for stability. Sitting EOB, pt struggled to scoot forward. OT arrived. PT and OT provided mod assist for scooting. OT assisted to don pt's shoes before first stand. With bariatric FWW, pt stood for briefs change and pericare . Sit to stand was min assist x 1. Pt stood with FWW ~3 minutes for hygiene assist before needing to sit on the bed again due to weakness and SOB. After a brief rest period for pt to catch his breath, pt transferred to the chair set up directly in front of him. He reached forward for the chair arms, lifted his hips off the bed and pivoted to his left 180 degrees in half-standing. He needed 2 person assist (one min, one mod) to position and assist due to poor control of descent during the transfer. PT and OT provided mod assist to scoot pt's hips toward back of chair. He was positioned upright with call light and all needs within reach. Gait Assessment Comments Gait Comments Unable Stair Climbing Assessment Comments Stair Climbing Comments No stairs at home. PT-Balance Assessment Sitting Balance and Reactions Static Sitting Balance Ability Fair Dynamic Sitting Balance Ability Fair Standing Balance and Reactions Static Standing Balance Ability Poor Dynamic Standing Balance Ability Poor Device Used FWW M5 PT-IP Objective Assessments Start: 05/07/20 08:34 Freq: NEEDED Status: Active Protocol: Document 05/07/20 10:36 AW (Rec: 05/07/20 12:41 AW [id number]) Orientation Orientation/Cognition Level of Alertness Alert Orientation Name,Month,Place,Situation Language Function Ability No Deficits Noted Safety Awareness Decreased Safety Awareness Gross Range of Motion Lower Extremity ROM Assessment Bilaterally Impaired Impairments Lower BLE wrapped in coban limiting ankle ROM Strength Lower Extremity Strength Assessment Bilaterally Impaired Hip 3+/5 Knee 4-/5 Sensation Assessment Sensation Gross Sensation Right LE Impaired,Left LE Impaired Light Touch Impaired Sensation Description Numbness Comments Sensation Comments bilateral feet (left more affected than right) M6 PT-IP Treatment Start: 05/07/20 08:34 Freq: NEEDED Status: Active Protocol: Document 05/07/20 10:36 AW (Rec: 05/07/20 12:41 AW [id number]) Physical Therapy Treatment Exercises Exercises Ankle Pumps,Quad Sets,Heel Slides Education Education Provided Safety M7 PT-IP Assessment and Plan Start: 05/07/20 08:34 Freq: NEEDED Status: Active Protocol: Document 05/07/20 10:36 AW (Rec: 05/07/20 12:41 AW [id number]) PT Summary Assessment and Plan Potential Rehabilitation Potential Fair Status of Condition at Evaluation Evolving Summary Impairments ROM,Strength,Balance,Sensation ,Bed Mobility,Transfers,Gait, Activity Tolerance Assessment Summary Cristóbal is a 69 yo man seen for PT evaluation with admitting diagnosis of UTI. Pt has multiple caregivers at home but reports he is typically able to transfer without assist. At evaluation, pt has decreased strength and balance necessitating 2-person assist for transfers. He is not at his functional baseline and would benefit from SNF rehab to increase his mobility independence and his ability to participate in his own care . Pt is resistant to this recommendation. PT will continue to assess. Goals Bed Mobility Goal Independent Transfer Goal Standby Assistance,Front Wheeled Walker Gait Goal Standby Assistance,Front Wheel Walker Gait Distance 25 Days to Meet Goals 5 Frequency of Treatment Frequency Of Treatment Once a Day Treatment Plan Physical Therapy Treatment Plan Bed Mobility Training,Transfer Training,Gait Training, Therapeutic Exercise,Balance Retraining,Discharge Planning Other Recommendations and Next Treatment transfers; gait with FWW/chair Focus follow as tolerated Precautions Other Precautions falls, BLE wrapped in coban over wound dressings Recommendations To Nursing Amount of Assist Needed 2 Person Assist Discharge Recommendations PT Discharge Recommendations SNF Rehab Transportation Needs at Discharge Wheelchair/Cabulance
--- NOTE | 2020-05-07 10:40 | OT.IP.TRT ---
Occupational Therapy Treatment Note M2 OT-IP Current Condition Start: 05/06/20 18:27 Freq: Status: Active Protocol: Document 05/06/20 16:47 [facility] (Rec: 05/06/20 19:03 [facility] [id number]) Occupational Therapy Current Condition Current Condition Evaluation Date 05/06/20 Treatment Diagnosis UTI, decreased mobility Diagnosis Onset Date 05/05/20 M3 OT- IP Subjective and Pain Start: 05/06/20 18:27 Freq: Status: Active Protocol: Document 05/07/20 13:24 [facility] (Rec: 05/07/20 13:38 [facility] [id number]) OT- Subjective Occupational Therapy Visit Type Type Treatment Note Visit Start Time 10:13 Visit Stop Time 10:40 Total Visit Minutes 27 Occupational Therapy Visit Comments Patient Comments Pt agreed to get up, PT also present as pt needing extensive assist for mobility and ADl needs. Patient/Caregiver Goals To go home. OT Pain Assessment Pain When Pain Assessed At Rest Pain Present Pain Present Denied Pain M4 OT- IP ADL's Start: 05/06/20 18:27 Freq: Status: Active Protocol: Document 05/07/20 13:24 [facility] (Rec: 05/07/20 13:38 [facility] [id number]) OT [id number] Comments OT Self-Feeding Comments NOt at meal time. OT ADL-Dressing General Eval Lower Body Dressing Ability Total Assistance Areas Needing Assistance Socks,Shoes Comments OT Dressing Comments Assist to don socks and velcro shoe at this time. OT ADL-Toileting General Evaluation Toileting Ability Maximum Assistance Comments OT Toileting Comments Pt states able to do on his own at home but wanting assist as unable to do on his own. OT ADL-Bathing Comments OT Bathing Comments NOt performed. M5 OT- IP IADL's Start: 05/06/20 18:27 Freq: Status: Active Protocol: Document 05/06/20 16:47 [facility] (Rec: 05/06/20 19:03 [facility] [id number]) OT-Instrumental Activities of Daily Living Medication Management Medication Management Caregiver Administers Money Management Money Management Comments Pt states does his own pain management needs. Meal Preparation Meal Preparation Caregiver Provides Assist Grain Sampler Grain Sampler Caregiver Provides Assist Driving Driving Comments Pt states still drives but has not in awhile. M6 OT- IP Functional Cognition Start: 05/06/20 18:27 Freq: Status: Active Protocol: Document 05/07/20 13:24 [facility] (Rec: 05/07/20 13:38 [facility] [id number]) Cognitive Factors Limiting Selfcare Function Cognitive Ability Level of Alertness Alert Patient Orientation Name,Place Attention Span Ability Capable of Focused Attention, Capable of Sustained Attention Ability to Follow Commands Able to Follow One Step Commands Safety Awareness Underestimates Need for Assistance Cognitive Comments Cognitive Assessment Comments Pt has decreased insight to his needs. M7 OT- IP Mobility and Balance Start: 05/06/20 18:27 Freq: Status: Active Protocol: Document 05/07/20 13:24 [facility] (Rec: 05/07/20 13:38 [facility] [id number]) OT- Bed Mobility Assessment Supine to Sit Supine to Sit Assist Contact Guard Assistance,Head of Bed Elevated,Bedrails OT-Transfer Assessment Transfers Transfer Ability Minimal Assistance,Moderate Assistance,2 Person Assistance Technique Transfer Destination Bed,Chair Transfer Technique Stand Step Pivot Devices Transfer Assistive Devices Gait Belt,Front Wheeled Walker Comments Mobility Comments Pt agreed to try to transfer to recliner as he does at home . Pt stool with Min/MODA x2 and grabbed the armrest of the recliner and then turned to the right to sit, but ended up sliding uncontrolled to the recliner. Pt admits at home he has fallen before. OT- Gait Assessment Comments Gait Ability Comments Transfers only at this time. OT- Balance Assessment Sitting Balance and Reactions Static Sitting Balance Ability Good Dynamic Sitting Balance Ability Fair Standing Balance and Reactions Static Standing Balance Ability Poor M8 OT- IP Objective Assessments Start: 05/06/20 18:27 Freq: Status: Active Protocol: Document 05/06/20 16:47 [facility] (Rec: 05/06/20 19:03 [facility] [id number]) OT Gross Range of Motion Upper Extremity Range of Motion Assessment Bilaterally Impaired OT Strength Upper Extremity Strength Assessment Bilaterally Impaired Comments Strength Comments 2-/5 to 4-/5 from proximal to distal for BUE. OT- Coordination Assessment Comments Coordination Comments Increased time to open package for toothbrush. Assist to open toothpaste cap. OT-Muscle Tone Assessment Muscle Tone WNL Yes M9 OT- IP Assessment and Plan Start: 05/06/20 18:27 Freq: Status: Active Protocol: Document 05/07/20 13:24 [facility] (Rec: 05/07/20 13:38 [facility] [id number]) OT Summary Assessment and Plan Potential Rehabilitation Potential Good Analytic Complexity at Evaluation Low Summary OT Impairments Pain,Strength,Balance, Functional Cognition, Functional Mobility,Grooming, Dressing,Toileting,Bathing, Toilet Transfers,Shower Transfers,Activity Tolerance Progress Towards Goals Slow Progress due to Medical Issues,Slow Progress due to Activity Tolerance,Slow Progress due to Cognition Assessment Summary Pt still needing 1-2 person assist for mobility needs. Pt insistent that he is able to care for himself at home and not wanting to go to skilled rehab. However pt has not been able to do his hygiene, brief management, and needing assist for transfers. Pt would benefit from skilled rehab. Goals Self-Feeding Goal Independent Grooming Goal Independent Dressing Goal Independent Toileting Goal Independent Bathing Goal Moderate Assistance Toilet Transfer Goal Independent Shower Transfer Goal Minimal Assistance Days to Meet Goals 14 Frequency of Treatment Frequency Of Treatment Once a Day Treatment Plan OT Treatment Plan ADL Training,Functional Cognition Training,Functional Mobility,Patient/Family Education,Discharge Planning Other Treatment Recommendations and Next [facility] [place] [facility] [place] MODA x 1 Treatment Focus Discharge Recommendations OT Discharge Recommendations SNF Rehab Home Equipment Needs defer to SNF Transportation Needs at Discharge Wheelchair/Cabulance
[2020-05-07] MEDS: SODIUM CHLORIDE 0.9% 1,000 ML 100 ML IV ×2 (11:03→17:12)
[2020-05-07] MEDS: HYDROCODONE/ACET 10/325 TABLET 1 TAB PO ×2 (13:29→18:51)
--- NOTE | 2020-05-07 14:15 | CM.DPNOTE ---
DCP cont Long discussion at bedside today between patient, Dr Montoya, RN Marylin and this LAWN SERVICE SUPERVISOR re: medical POC and DCP options. Patient is concerned about his recurrent UTIs and wonders if there is a cure for these infections, patient hesitant to agree to continued IV abx if these things(infections) continue to happen, and asks what is the point?. Patient inevitably agreeable to continued IV abx at SNF (for 4 additional days) , PICC being placed this evening. Patient will DC on the current dosing of IV Meropenem. Reviewed above / August at [facility] she can accept patient for admission tomorrow morning. Dr Montoya and CM Hernesto Solorzano updated on plan JW
--- NOTE | 2020-05-07 14:30 | P.PN_ITS ---
Subjective Subjective Date Patient Seen: 05/07/20 Time Patient Seen: 14:31 Interval history: Cristóbal Tubbs is a 69-year-old male with a past medical history CKD 4, BPH with chronic urinary obstruction, diabetes, depression, frequent urinary tract infections, and chronic venous stasis who was sent in by his caretakers for inability to care for him at home, he was ultimately admitted with a UTI under observation status. His urine today grew an ESBL E coli, he was initially started on meropenem, and today is day 2 of therapy. Current plan is to continue a 7 day course of IV antibiotics for definitive treatment. His culture shows resistance to all medications other than carbapenem antibiotics. Patient initially refusing to continue IV therapy, however after prolonged discussion agreeable to continue treating ESBL E. coli as there are no oral alternatives at this time. Denies symptoms today including fever, chills, nausea, vomiting. He states he actually feels quite well. Exam Vital Signs (past 8 hours): - 05/07/20 07:30 05/07/20 09:00 05/07/20 13:01 Temperature 97.7 F 97.8 F Pulse Rate 74 76 Respiratory Rate 17 22 Blood Pressure 133/60 139/85 Pulse Oximetry 93 96 98 05/07/20 13:26 Temperature Pulse Rate Respiratory Rate Blood Pressure Pulse Oximetry 98 Oxygen Delivery Method Room Air Oxygen Flow Rate 0 Narrative Exam Narrative: General: Patient is a well-developed, obese male in no distress at this time sleeping heavily. HEENT: Normocephalic, atraumatic, extraocular muscles intact, oral pharynx is clear and mucous membranes are moist. Neck is supple and symmetric, trachea is midline, no adenopathy, no thyroid enlargement, nontender, no masses palpated. Negative for JVD Chest: Normal AP diameter and contour without kyphoscoliosis, no nasal flaring, retractions, or tachypneic labored Lungs: Auscultation of all lung leone are clear without adventitious sounds, wheezes, rhonchi, or rales. Cardio: S1 & S2 with regular rate and rhythm without rubs, or gallops, no carotid bruit, no cardiac pulsations present. +2 Murmur Abdomen: Soft nontender, negative for organomegaly, or masses. Bowel sounds are present in all 4 quadrants without guarding or rebound, no CVA tenderness. Musculoskeletal: Patient patient has bilateral venous insufficiency, +1 edema bilaterally, open seeping wound on the right foot 2nd distal toe medial side, bilateral feet & legs are wrapped to the knee. Skin: see above Neuro: sleepy orientated x3, strength is +5/5 in all extremities, sensation to touch intact, no gross deficits noted of cranial nerves. Psych: Patient has a well-kept appearance, appropriate affect, mental status attitude thought context and judgment are appropriate for age. Objective Labs Result Diagrams: 05/07/20 06:05 05/07/20 06:05 Labs: Laboratory Results - last 24 hr 05/07/20 05/07/20 06:05 06:05 WBC 7.2 RBC 2.99 L Hgb 8.6 L Hct 27.1 L MCV 90.5 MCH 28.8 MCHC 31.9 RDW 18.0 H Plt Count 171 Neut % (Auto) 67.5 Lymph % (Auto) 11.[address] [place] % (Auto) 16.4 H Eos % (Auto) 4.6 H Baso % (Auto) 0.4 Neut # (Auto) 4900 Lymph # (Auto) [address] [place] # (Auto) 1200 H Eos # (Auto) 300 Baso # (Auto) 0 Sodium 136 L Potassium 3.3 L Chloride 102 Carbon Dioxide 28 BUN 56 H Creatinine 3.04 H Estimated GFR 20.6 L BUN/Creatinine Ratio 18.4 Glucose 124 H Calcium 7.2 L Magnesium 1.8 PFSH Medical History Arthritis BPH w urinary obs/LUTS Cellulitis of left leg Chronic kidney disease, stage 4 (severe) Chronic UTI Depression Diabetes Duodenal ulcer History of cervical fracture History of urinary retention Hyperparathyroidism Osteoarthritis Peripheral vascular disease Renal disease Urge incontinence Surgical History H/O cervical spine surgery History of back surgery History of colectomy History of colon surgery History of fusion of cervical spine History of knee replacement Family History Mother Kidney failure Diabetes mellitus Social History marital status: number of children: 4 household members: none occupational status: employed Smoking Status: Former smoker alcohol intake: current caffeine: Yes Assessment & Plan Assessment & Plan narrative: Cristóbal Tubbs is a 69-year-old male with a past medical history CKD 4, BPH with chronic urinary obstruction, diabetes, depression, frequent urinary tract infections, and chronic venous stasis who was sent in by his caretakers for inability to care for him at home, he was ultimately admitted with a UTI under observation status. His urine today grew an ESBL E coli, he was initially started on meropenem, and today is day 2/7 of therapy. 1. UTI, complicated, stable condition, present on admission - cultures growing ESBL E. Coli, recommended treatment course is 7 days of carba penem therapy. There are no oral alternatives, and culture shows resistance to most antibiotics other than carbapenem. - today is day 2/7. Plan to transfer to SNF once able for completion of antibio tics. End date is 05/12. 2. Acute kidney injury, acute on CKD stage IV, present on admission, condition guarded -monitor renal labs, will cautiously consider diuresis if needed. -Creatinine continues to improve slightly, previous baseline around 2.3. Today Creatinine is 3.04. 3. Hypokalemia, acute, present on admission, improved. -patient provided 40 mEq of potassium in ER. 4. Chronic venous stasis changes with chronic wound left lower extremity - no active infection, though taking doxycycline as an outpatient. Recommend outpatient wound care follow up. Meropenem will more than adequately cover LE wound. 5. History of duodenal ulcer with no evidence of acute exacerbation - Continue on Protonix. Continue off NSAIDs. 6. Diabetes type 2 not insulin dependent, acute on chronic, controlled, present on admission -Holding patient's metformin will do a.c. and hs blood sugar checks and patient placed on insulin scale while inpatient 7. Chronic pain - At this time will continue home medications. 8. HTN - continue home medications, other than home diuretic at this time. COVID-19 COVID-19 status: Negative
--- NOTE | 2020-05-07 15:34 | PC.NURSE ---
Bilat compression wraps changed, used ABD pads in replace of Mextra superabsorbent (none available) and gauze between toes in replace of interdry (none available), foam to cover base of toes. Skin appears as scaly, red, bilaterally. L leg has scattered macerated weeping areas, weeping small amount of serous fluid. Base of toes draining scant amount of serous fluid. R medial ankle macerated open area weeping scant serous fluid. Coban 2 Lite compression wraps placed over dressings.
--- NOTE | 2020-05-07 16:33 | PC.NURSE ---
Addendum entered by Becki Najera R.N. 05/07/20 21:41: Pt has consistently rated BL shoulder pain 7/10. Reports this pain is chronic and this is baseline. States only time is pain free is during sleep. Lidocaine patches removed as ordered. Now resting quietly in bed with eyes closed. No signs of distress or discomfort. Addendum entered by Becki Najera R.N. 05/07/20 19:26: In house DI RN has placed right forearm midline and okay to use per Maile. Removed right hand iv and infusing iv fluids through midline right forearm without difficulty. Pt requests ativan and pain meds for BL shoulder pain 7-8/10. These were given. Coban wraps in place to BL LE's. States neuropathy to toes to feet BL, but pt is able to wiggle toes upon command. Brisk capillary refill. Original Note: Staff members assist pt back into bed for ABE RN to place midline.
[2020-05-07] MEDS: LORazepam 0.5 MG TABLET PO (18:49)
[2020-05-07] MEDS: carvediloL 12.5 MG TABLET PO (20:45)
[2020-05-07] MEDS: DOXAZOSIN 4 MG TABLET PO (20:45)
[2020-05-07] MEDS: MELATONIN 3 MG TABLET 6 MG PO (20:46)
[2020-05-07] MEDS: HEPARIN 5,000 UNIT/ML VIAL 7500 UNIT SUBCUT (20:47)
[2020-05-08] VITALS (7 sets, daily range): BP systolic 121–141; BP diastolic 63–73; PULSE 62–73; RESP 16–18; TEMP 36.6–37; O2SAT 93–95
[2020-05-08] MEDS: SODIUM CHLORIDE 0.9% 1,000 ML 100 ML IV (01:59)
--- NOTE | 2020-05-08 02:20 | PC.NURSE ---
Addendum entered by Becki Najera R.N. 05/08/20 02:39: Discussion with LUZ tovar pt's statement left hand is puffy. Also this property underwriter noted indentations into BL upper thighs from brief. Shared with hospitalist pt's profound dyspnea with any activity and exertion. Verbal order to stop normal saline and this was done. Original Note: Pt permitted to sleep until awakens spontaneously. BUSINESS SOLUTION ANALYST checks pt's brief and states this is wet and requires changing. Max assist to turn pt in bed with two staff members. Decision made by staff to move pt into Lyndsey bed to allow for self turning bed. Pt in agreement. Pt is dyspneic with exertion and is very difficult to mobilize. Pt is able to stand and pivot into recliner while old bed removed and new bed installed. Returned to Lyndsey bed and turned onto left side and supported with pillows. Pt's buttocks is reddened and open. Barrier cream applied. Clear breath sounds throughout although faint end expiratory wheeze audible @ rest as per last evening and the prior evening shift assessment. Coban wraps in place to BL LE's. Dry flaky skin to exposed toes BL. Brisk capillary refill. IV fluids continue to infuse to right forearm without difficulty. Pt is generally edematous.
[2020-05-08] MEDS: HEPARIN 5,000 UNIT/ML VIAL 7500 UNIT SUBCUT (06:58)
[2020-05-08 07:14] LABS: Hematocrit 27.6 % (41-53); Hemoglobin 8.8 g/dL (13.5-17.5); Mean Corpuscular HGB Conc 31.9 % (30-36); Mean Corpuscular Hemoglobin 28.9 PG (26-34); Mean Corpuscular Volume 90.6 fL (80-100); Platelet Count 179 X10^3/uL (150-400); Red Blood Cell Count 3.05 X10^6/uL (4.5-5.9); Red Cell Distribution Width 18.4 % (11.6-14.8)
[2020-05-08 07:16] LABS: Add Manual Diff / Slide Review YES
[2020-05-08] MEDS: MEROPENEM 500 MG in SODIUM CHLORIDE 0.9% 100 ML 200 ML IV (07:35)
[2020-05-08 07:44] LABS: BUN Creatinine Ratio 21.7 (6-22); Blood Urea Nitrogen 56 mg/dL (9-20); Calcium 7.3 mg/dL (8.4-10.2); Carbon Dioxide 26 mmol/L (22-32); Chloride 103 mmol/L (98-107); Estimated Glomerular Filt Rate 24.9 mL/min (>60); Glucose 133 mg/dL (80-110); HEMOLYSIS 26 (0-50); Magnesium 1.6 mg/dL (1.6-2.3); Potassium 3.8 mmol/L (3.4-5.1); Sodium 135 mmol/L (137-145)
[2020-05-08 08:13] LABS: Microcytosis 2+; Neutrophils Absolute Manual 6160 /uL (3000-5900); Total Cells Counted 100
[2020-05-08 08:14] LABS: Basophilic Stippling 1+; Hypochromasia 2+
[2020-05-08] MEDS: INSULIN ASPART 100 UNIT/ML INSULN PEN SUBCUT ×2 (08:28→12:31)
[2020-05-08] MEDS: carvediloL 12.5 MG TABLET PO (08:29)
[2020-05-08] MEDS: AMLODIPINE 5 MG TABLET 10 MG PO (08:29)
[2020-05-08] MEDS: DOCUSATE 100 MG CAPSULE PO (08:30)
[2020-05-08] MEDS: CITALOPRAM 10 MG TABLET 20 MG PO (08:30)
[2020-05-08] MEDS: DULOXETINE 30 MG CAPSULE 60 MG PO (08:30)
[2020-05-08] MEDS: HYDROCODONE/ACET 10/325 TABLET 1 TAB PO (08:30)
[2020-05-08] MEDS: LIDOCAINE PATCH 1 EACH ADH..PATCH TOP (08:31)
--- NOTE | 2020-05-08 11:57 | PT.IPTN ---
Current Diagnoses Urinary tract infection, site not specified (05/07/20) Physical Therapy Treatment Note M2 PT-IP Current Condition Start: 05/07/20 08:34 Freq: NEEDED Status: Active Protocol: Document 05/07/20 10:36 AW (Rec: 05/07/20 12:41 AW [id number]) Physical Therapy Current Condition Current Condition Evaluation Date 05/07/20 Treatment Diagnosis UTI; chronic BLE wounds; impaired mobility Onset Date 05/06/20 Precautions Other Precautions falls, BLE wrapped in coban over wound dressings M3 PT-IP Subjective Start: 05/07/20 08:34 Freq: NEEDED Status: Active Protocol: Document 05/08/20 11:34 CLB (Rec: 05/08/20 13:09 CLB [id number]) Subjective Physical Therapy Visit Type Type Treatment Note Visit Start Time 11:34 Visit Stop Time 11:57 Total Visit Minutes 23 Number of AUTOMATIC ENGRAVER Visits 1 Physical Therapy Visit Comments Patient Comments Pt willing to transfer to chair Therapy Pain Assessment Pain When Pain Assessed During Mobility Pain Present Pain Present Denied Pain M4 PT-IP Mobility and Gait Start: 05/07/20 08:34 Freq: NEEDED Status: Active Protocol: Document 05/08/20 11:34 CLB (Rec: 05/08/20 13:09 CLB [id number]) PT-Bed Mobility Assessment Supine to Sit Supine to Sit Standby Assistance,Head of Bed Elevated,Bedrails Scooting Scooting to Edge of Bed Contact Guard Assistance PT-Transfer Assessment Sit to and From Stand Sit to and from Stand Moderate Assistance,2 Person Assistance,Use of Upper Extremities Equipment Transfer Assistive Device Gait Belt,Front Wheeled Walker Orthotic/Prosthetic Devices or Brace: No Transfers Transfer Destination Chair Transfer Technique Stand Step Pivot Transfer Ability Level of Assist Minimal Assistance,Moderate Assistance,2 Person Assistance Comments Mobility Comments Pt required SBA for supine to sit and CGA for scooting to EOB. Pt then required assist with donning shoes. Pt unable to come to full stand at first attempt, pt then used momentum with rocking and Mod A x2 for full stand. Pt stood CGA while CORPORATE STAFF ACCOUNTANT assisted with pericare and Min A for step pivot transfer to chair then required CGA for stand-sit. Pt performed seated marches and knee flx/ext. Pt left in chair with CORPORATE STAFF ACCOUNTANT present. Gait Assessment Comments Gait Comments Unable Stair Climbing Assessment Comments Stair Climbing Comments No stairs at home. PT-Balance Assessment Sitting Balance and Reactions Static Sitting Balance Ability Fair Dynamic Sitting Balance Ability Fair Standing Balance and Reactions Static Standing Balance Ability Poor Dynamic Standing Balance Ability Poor Device Used FWW M5 PT-IP Objective Assessments Start: 05/07/20 08:34 Freq: NEEDED Status: Active Protocol: Document 05/07/20 10:36 AW (Rec: 05/07/20 12:41 AW [id number]) Orientation Orientation/Cognition Level of Alertness Alert Orientation Name,Month,Place,Situation Language Function Ability No Deficits Noted Safety Awareness Decreased Safety Awareness Gross Range of Motion Lower Extremity ROM Assessment Bilaterally Impaired Impairments Lower BLE wrapped in coban limiting ankle ROM Strength Lower Extremity Strength Assessment Bilaterally Impaired Hip 3+/5 Knee 4-/5 Sensation Assessment Sensation Gross Sensation Right LE Impaired,Left LE Impaired Light Touch Impaired Sensation Description Numbness Comments Sensation Comments bilateral feet (left more affected than right) M6 PT-IP Treatment Start: 05/07/20 08:34 Freq: NEEDED Status: Active Protocol: Document 05/08/20 11:34 CLB (Rec: 05/08/20 13:09 CLB [id number]) Physical Therapy Treatment Exercises Exercises Seated Knee Flexion/Extension Other Treatments Other Treatment Performed seated marches M7 PT-IP Assessment and Plan Start: 05/07/20 08:34 Freq: NEEDED Status: Active Protocol: Document 05/08/20 11:34 CLB (Rec: 05/08/20 13:09 CLB [id number]) PT Summary Assessment and Plan Potential Rehabilitation Potential Fair Status of Condition at Evaluation Evolving Summary Impairments ROM,Strength,Balance,Sensation ,Bed Mobility,Transfers,Gait, Activity Tolerance Assessment Summary Pt improving with bed mobility but continues to required Mod A x2 for sit-stand and Min A for transfers. Due to decreased activity tolerance pt requires frequent rest breaks during tx. Goals Bed Mobility Goal Independent Transfer Goal Standby Assistance,Front Wheeled Walker Gait Goal Standby Assistance,Front Wheel Walker Gait Distance 25 Days to Meet Goals 5 Frequency of Treatment Frequency Of Treatment Once a Day Treatment Plan Physical Therapy Treatment Plan Bed Mobility Training,Transfer Training,Gait Training, Therapeutic Exercise,Balance Retraining,Discharge Planning Other Recommendations and Next Treatment transfers; gait with FWW/chair Focus follow as tolerated Precautions Other Precautions falls, BLE wrapped in coban over wound dressings Recommendations To Nursing Amount of Assist Needed 2 Person Assist Discharge Recommendations PT Discharge Recommendations SNF Rehab
--- NOTE | 2020-05-08 12:38 | PC.NURSE ---
Addendum entered by Melissa Rodríguez R.N. 05/08/20 14:29: Patient up to wheelchair for transfer to SNF. Midline remains intact in R forearm. Patient belongings including global lead, phone and wallet placed in bag. Room checked, shoes are on. Patient denies having belongings in safe or pharmacy. Patient discharged via wheelchair with facility designee. Addendum entered by Melissa Rodríguez R.N. 05/08/20 13:02: Called report to Arcelia at [facility]. Original Note: Patient A/O x 4. Patient on room air, 93-95%,denies SOB or increased WOB with activity, lungs CTA. Bilateral LE in coban 2 lite wraps intact. No drainage noted. Pulses equal bilaterally. MD consulted, 1+ non pitting edema is baseline. Patient saline locked, receiving IV ABX, tolerating. Patient c/o generalized pain. [place] PRN administered. Patient resting with eyes closed. Transferred 1 p assist to chair for lunch. BT active x 4, last BM 3/4. Chair alarm on. Patient denies further needs at this time.
--- NOTE | 2020-05-08 13:54 | CM.DPNOTE ---
Addendum entered by NOELLE Stone 05/08/20 16:14: Discussed patient's wound care w/August at [facility] this afternoon after patient had left the building, no wound care orders are present in the chart. TAMARA Torres had discussed patient's care via nurse to nurse report, however, orders that are documented are helpful per [facility]. Discussed w/ Dr Spencer who did not see concise wound care orders for patient documented ... required input from the day nurse who had gone for the day so DC Summary would not be updated w/wound care orders. Reviewed recent appt. dates w/wound care/Dr Flores and August felt she could call Helga, wound care cement grinding mill operator, on Monday to ask about either scheduling patient for f/u at wound care vs having patient seen by their in house wound care provider Addendum entered by NOELLE Stone 05/08/20 14:19: Provided IMM to patient. Placed call to SONIA Carlos# [phone], had to , updating her on patient's dispo today. Original Note: DC Note DC order placed today by Dr Spencer, to [facility] via w/c. Patient has his PICC in place and remains agreeable to DC to SNF w/ongoing IV abx. Faxed completed and signed med list and PASRR to [facility]. Updated TAMARA Torres that p/u time is 1415, provided nurse to nurse contact/ Jasmin [phone] Plan: DC to [facility] via w/c today, for ongoing IV abx x4 days and therapies JW
--- NOTE | 2020-05-08 14:30 | PM.DS.1 ---
History of Present Illness History of Present Illness Chief complaint: Sent by home health nurse Discharge Providers Provider Date of admission: 05/07/20 14:29 Discharge Date: 05/08/20 Primary care physician: Mariano Keller MD Consults: 05/05/20 14:31 Consult to PHARMACEUTICAL PROCESS ENGINEER - Loss Claim Clerk Stat Comment: 05/06/20 00:49 Consult to Dietitian, Adult Routine Comment: Reason For Exam: H/O DM 05/06/20 05:07 Consult to Wound Care Routine Comment: Stage II left leg ulceration Consulting Provider: Deborah- Wound Care 05/06/20 14:40 Consult to Occupational Therapy Evaluate & Treat Comment: Physician Instructions: Evaluate and treat Consult to Physical Therapy Evaluate & Treat Comment: Physician Instructions: Evaluate and Treat Discharge provider: Mariano Spencer MD Summary Hospital Course Discharge Diagnosis: 1. MDR E. coli UTI 2. Acute kidney injury, acute on CKD stage IV 3. Hypokalemia, acute, present on admission, improved. 4. Chronic venous stasis changes with chronic wound left lower extremity 5. DM2 6.HTN Hospital Course: Cristóbal Tubbs is a 69-year-old male with a past medical history CKD 4, BPH with chronic urinary obstruction, diabetes, depression, frequent urinary tract infections, and chronic venous stasis who was sent in by his caretakers for inability to care for him at home, he was ultimately admitted with a UTI under observation status. His urine an ESBL E coli, he was initially started on meropenem, and today is day 3 of therapy. Current plan is to continue a 7 day course of IV antibiotics for definitive treatment. His culture shows resistance to all antibiotics other than carbapenem. Patient initially refused to continue IV therapy, however after prolonged discussion by Dr. Montoya he agreeable to continue treating ESBL E. coli as there are no oral alternatives. on day of discharge he denied fever, chills, nausea, vomiting. He stated he felt quite well 1. MDR E. coli UTI He was started on meropenem. During his hospital course he remained afebrile. On the day of discharge he was asymptomatic, afebrile, hemodynamically stable and felt ready for discharge to continue with antibiotic therapy as an outpatient. 2. Acute kidney injury, acute on CKD stage IV With treatment of his infection and IV fluids his creatinine improved. His creatinine on admission was 3.22 and by discharge it had improved to 2.58. 3. Hypokalemia With repletion of his potassium his low K of 3.3 on admission had improved to 3.8 on the day of discharge 4. Chronic venous stasis changes with chronic wound left lower extremity He was instructed on having outpatient wound care. 5. DM2 During his hospitalization he was on SSI. His glucoses ranged from 111 TO 151. On the morning of discharge his glucose was 133. 6.HTN During his admission his blood pressures were reasonably controlled on his medical therapy with blood pressures ranging from 117/62 to 140/66 and 131/74 on day of discharge. Status at Discharge Cognitive/behavioral status at discharge: oriented, at baseline, oriented and calm Time Spent with Patient Time spent: Greater than 30 minutes Exam Vital Signs (past 8 hours): - 05/08/20 07:38 05/08/20 08:29 05/08/20 11:58 Temperature 97.8 F 98.0 F Pulse Rate 67 63 62 Respiratory Rate 18 16 Blood Pressure 141/73 H 121/73 131/63 Pulse Oximetry 93 95 Oxygen Delivery Method Room Air Oxygen Flow Rate 0 Objective Labs Result Diagrams: 05/08/20 07:00 05/08/20 07:00 Labs: Laboratory Results - last 24 hr 05/08/20 05/08/20 07:00 07:00 WBC 8.0 RBC 3.05 L Hgb 8.8 L Hct 27.6 L MCV 90.6 MCH 28.9 MCHC 31.9 RDW 18.4 H Plt Count 179 Neut % (Auto) Not Reportable Lymph % (Auto) Not Reportable [place] % (Auto) Not Reportable Eos % (Auto) Not Reportable Baso % (Auto) Not Reportable Lymph # (Auto) Not Reportable [place] # (Auto) Not Reportable Baso # (Auto) Not Reportable Total Counted 100 Seg Neutrophils % 59.0 Band Neutrophils % 18.0 H Lymphocytes % (Manual) 6.0 L Atypical Lymphs % 3.0 H Monocytes % (Manual) 7.0 Eosinophils % (Manual) 6.0 H Metamyelocytes % 1.0 H Neutrophils # (Manual) 6160 H RBC Morphology See below Hypochromasia 2+ H Basophilic Stippling 1+ H Microcytosis 2+ H Sodium 135 L Potassium 3.8 Chloride 103 Carbon Dioxide 26 BUN 56 H Creatinine 2.58 H Estimated GFR 24.9 L BUN/Creatinine Ratio 21.7 Glucose 133 H Calcium 7.3 L Magnesium 1.6 PFSH Medical History (Updated 06/25/20 @ 07:59 by Mariano Keller MD) Arthritis BPH w urinary obs/LUTS Cellulitis of left leg Chronic kidney disease, stage 4 (severe) Chronic UTI Depression Diabetes Duodenal ulcer History of cervical fracture Hyperparathyroidism Osteoarthritis Peripheral vascular disease Renal disease Surgical History (System 06/09/20 @ 11:21 by Pascale Cottrell) H/O cervical spine surgery History of back surgery History of colectomy History of colon surgery History of fusion of cervical spine History of knee replacement Family History Mother Kidney failure Diabetes mellitus Social History (System 06/09/20 @ 11:21 by Pascale Cottrell) marital status: number of children: 4 household members: none occupational status: employed Smoking Status: Former smoker alcohol intake: current caffeine: Yes Discharge Plan Discharge Plan Patient Disposition: SNF Transfer to: [facility] Discharge orders & Medications Prescriptions: New acetaminophen 325 mg Tablet 650 mg PO Q6HR PRN (Reason: Fever/Mild Pain (1-3)) Qty: 100 RF: 0 Continued citalopram 20 mg tablet 20 mg PO DAILY Qty: 90 RF: 3 glimepiride 1 mg tablet 1 mg PO DAILY Qty: 90 RF: 1 torsemide 20 mg tablet 40 mg PO DAILY PRN (Reason: edema) Qty: 60 RF: 2 allopurinol [Zyloprim] 100 mg tablet 200 mg PO DAILY Qty: 180 RF: 1 lidocaine 5 % adhesive patch,medicated 1 patch TOP DAILY Qty: 15 RF: 11 doxazosin [Cardura] 4 mg Tablet 4 mg PO BEDTIME RF: 0 duloxetine 60 mg capsule,delayed release(DR/EC) 60 mg PO BID RF: 0 polyethylene glycol 3350 17 gram/dose Powder 17 g PO DAILY PRN (Reason: Constipation) RF: 0 docusate sodium 100 mg Capsule 100 mg PO PRN PRN (Reason: Constipation) RF: 0 carvedilol [Coreg] 12.5 mg Tablet 12.5 mg PO BID RF: 0 amlodipine [Norvasc] 10 mg Tablet 10 mg PO DAILY RF: 0 melatonin 3 mg Tablet 6 mg PO BEDTIME RF: 0 zinc oxide [Boudreauxs Butt Paste] 40 % ointment 1 applic topical 6XD PRN (Reason: skin irritation) Qty: 56 RF: 0 Discontinued lorazepam 0.5 mg tablet 0.5 mg PO DAILY PRN (Reason: Anxiety) Qty: 20 RF: 5 hydrocodone-acetaminophen 7.5-325 mg tablet 1 tab PO BID PRN (Reason: pain) Qty: 60 RF: 0 nitrofurantoin monohyd/m-cryst [Macrobid] 100 mg capsule 100 mg PO Q12H 5 Days Qty: 10 RF: 0 cefuroxime axetil 500 mg Tablet 500 mg PO BID RF: 0 doxycycline monohydrate [Monodox] 100 mg capsule 100 mg PO BID RF: 0 No Action amoxicillin-pot clavulanate [Augmentin] 875-125 mg tablet 1 tab PO BID 7 Days Qty: 14 RF: 0 hydralazine 10 mg tablet 10 mg PO TID RF: 0 pantoprazole 40 mg tablet,delayed release (DR/EC) 40 mg PO DAILY RF: 0 hydrocodone-acetaminophen 5-325 mg tablet 1 tab PO Q8H PRN (Reason: pain) Qty: 90 RF: 0 Follow up/Referrals: Mariano Keller MD [Primary Care Provider] - Discharge Health Status Multidrug resistant organism: Other Precautions: Contact Diet/Activity/Treatments Diet: Diet as Tolerated and Carb-consistent/Diabetic Liquid consistency: Normal/Thin Food texture: Regular Discharge Data Primary Care Provider: Mariano Keller
== END 2020-05-08 14:30 | disposition home health service (06) | DRG 690 ==
LOC: ED 23:25 → AC 23:31
PROVIDERS: Internal Medicine; Admitting Provider Nurse Practitioner Family; Emergency Provider Emergency Medicine; PCP Student in an Organized Health Care Education/Training Program; Referring Provider Emergency Medicine; Visit Provider Nurse Practitioner Family
DX: N39.0 Urinary tract infection, site not specified (principal); Z16.11 Resistance to penicillins; Z16.19 Resistance to other specified beta lactam antibiotics; Z16.23 Resistance to quinolones and fluoroquinolones; N17.9 Acute kidney failure, unspecified; N18.4 Chronic kidney disease, stage 4 (severe); Z68.41 Body mass index [BMI] 40.0-44.9, adult; L97.821 Non-pressure chronic ulcer of other part of left lower leg limited to breakdown of skin; L97.811 Non-pressure chronic ulcer of other part of right lower leg limited to breakdown of skin; E11.22 Type 2 diabetes mellitus with diabetic chronic kidney disease; B96.29 Other Escherichia coli [E. coli] as the cause of diseases classified elsewhere; E87.6 Hypokalemia; E66.9 Obesity, unspecified; R53.1 Weakness; R06.02 Shortness of breath; I12.9 Hypertensive chronic kidney disease with stage 1 through stage 4 chronic kidney disease, or unspecified chronic kidney disease; S81.802D Unspecified open wound, left lower leg, subsequent encounter; I87.8 Other specified disorders of veins; G89.29 Other chronic pain; Z87.891 Personal history of nicotine dependence; Z20.822 Contact with and (suspected) exposure to COVID-19; F10.20 Alcohol dependence, uncomplicated; D63.8 Anemia in other chronic diseases classified elsewhere; Z60.2 Problems related to living alone; Z59.8 Other problems related to housing and economic circumstances; Z86.14 Personal history of Methicillin resistant Staphylococcus aureus infection; R60.0 Localized edema
CPT/HCPCS: 29581; 36415; 71045; 80048; 80053; 81001; 82550; 82553; 82570; 82962; 83036; 83605; 83690; 83735; 83880; 84145; 84153; 84484; 85007; 85025; 85610; 85730; 87077; 87086; 87186; 87635; 93005; 96365; 96367; 97162; 97165; 97530; 97535; 99215; 99282; 99284; C9803; G0378; J0610; J1642; J1644; J1650; J2185; J3475

== ENCOUNTER → 2020-05-20 08:28 | Outpatient (CLI) | payer MEDICARE, MEDICAID, SELFPAY ==
[2020-03-23 12:36] VITALS: BMI 42.2
[2020-05-04 11:08] VITALS: PULSE 56; RESP 16; O2SAT 100
[2020-05-05 23:37] VITALS: BMI 40.1
[2020-05-20 08:45] VITALS: BP 132/74; PULSE 71; RESP 18; TEMP 36.6; O2SAT 97
[2020-05-20] MEDS: DARBEPOETIN 500 MCG/ML SUBCUT (08:56)
== END ==
PROVIDERS: PCP Student in an Organized Health Care Education/Training Program; Referring Provider Student in an Organized Health Care Education/Training Program; Visit Provider Internal Medicine
DX: E11.22 Type 2 diabetes mellitus with diabetic chronic kidney disease (principal); I12.9 Hypertensive chronic kidney disease with stage 1 through stage 4 chronic kidney disease, or unspecified chronic kidney disease; N18.4 Chronic kidney disease, stage 4 (severe); D63.1 Anemia in chronic kidney disease; Z87.898 Personal history of other specified conditions; R33.9 Retention of urine, unspecified
CPT/HCPCS: 51798; 96372; 99213; J0881

== ENCOUNTER → 2020-06-11 10:38 | Outpatient (CLI) | payer MEDICARE, MEDICAID, SELFPAY ==
[2020-05-05 23:37] VITALS: BMI 40.1
[2020-06-11 11:36] LABS: Albumin 3.5 g/dL (3.5-5.0); BUN Creatinine Ratio 22.1 (6-22); Blood Urea Nitrogen 56 mg/dL (9-20); Calcium 7.8 mg/dL (8.4-10.2); Carbon Dioxide 27 mmol/L (22-32); Chloride 99 mmol/L (98-107); Estimated Glomerular Filt Rate 25.5 mL/min (>60); Glucose 133 mg/dL (80-110); HEMOLYSIS < 15 (0-50); Phosphorous 4.3 mg/dL (2.3-3.7); Potassium 4.3 mmol/L (3.4-5.1); Sodium 136 mmol/L (137-145)
[2020-06-11 11:56] LABS: Add Manual Diff / Slide Review NO; Basophils Absolute Auto 0 /uL (0-100); Basophils Percent Auto 0.5 % (0-2); Eosinophils Absolute Auto 700 /uL (0-450); Eosinophils Percent Auto 7.4 % (2-4); Hematocrit 29.6 % (41-53); Hemoglobin 9.3 g/dL (13.5-17.5); Lymphocytes Absolute Auto 800 /uL (1100-4500); Lymphocytes Percent Auto 9.5 % (25-40); Mean Corpuscular HGB Conc 31.3 % (30-36); Mean Corpuscular Hemoglobin 27.9 PG (26-34); Monocytes Absolute Auto 900 /uL (0-900); Monocytes Percent Auto 9.9 % (3-14); Neutrophils Absolute Auto 6500 /uL (1500-7000); Neutrophils Percent Auto 72.7 % (50-75); Platelet Count 231 X10^3/uL (150-400); Red Blood Cell Count 3.32 X10^6/uL (4.5-5.9); Red Cell Distribution Width 18.7 % (11.6-14.8); White Blood Cell Count 8.9 X10^3/uL (4.5-11.0)
[2020-06-12 06:41] LABS: Parathyroid Hormone Int 199 pg/mL (15-65)
== END ==
PROVIDERS: PCP Student in an Organized Health Care Education/Training Program; Referring Provider Internal Medicine Nephrology; Visit Provider Internal Medicine Nephrology
DX: N18.4 Chronic kidney disease, stage 4 (severe) (principal)
CPT/HCPCS: 36415; 80069; 83970; 85025

== ENCOUNTER → 2020-06-24 13:20 | Outpatient (CLI) | payer MEDICARE, MEDICAID, SELFPAY ==
[2020-05-05 23:37] VITALS: BMI 40.1
[2020-06-24] MEDS: DARBEPOETIN 500 MCG/ML SUBCUT (14:03)
== END ==
PROVIDERS: PCP Student in an Organized Health Care Education/Training Program; Referring Provider Internal Medicine; Visit Provider Internal Medicine
DX: E11.22 Type 2 diabetes mellitus with diabetic chronic kidney disease (principal); I12.9 Hypertensive chronic kidney disease with stage 1 through stage 4 chronic kidney disease, or unspecified chronic kidney disease; N18.4 Chronic kidney disease, stage 4 (severe); D63.1 Anemia in chronic kidney disease; K92.2 Gastrointestinal hemorrhage, unspecified; Z79.84 Long term (current) use of oral hypoglycemic drugs
CPT/HCPCS: 96372; 99214; J0881

== ENCOUNTER → 2020-06-25 10:45 | Outpatient (CLI) | payer MEDICARE, SELFPAY ==
[2020-05-05 23:37] VITALS: BMI 40.1
[2020-06-25] MEDS: COVID-19 VACC #1, MRNA(MOD) 100 MCG/0.5 ML VIAL IM (10:52)
== END ==
PROVIDERS: PCP Student in an Organized Health Care Education/Training Program; Visit Provider Internal Medicine
DX: Z23 Encounter for immunization (principal)
CPT/HCPCS: 0011A; 91301

== ENCOUNTER → 2020-07-01 11:47 | Outpatient (ROUT) | payer MEDICARE, SELFPAY ==
[2020-05-05 23:37] VITALS: BMI 40.1
== END ==
PROVIDERS: PCP Student in an Organized Health Care Education/Training Program; Visit Provider Student in an Organized Health Care Education/Training Program
DX: L89.310 Pressure ulcer of right buttock, unstageable (principal)
CPT/HCPCS: 87070; 87075; 87077; 87147; 87186; 87205

== ENCOUNTER → 2020-07-23 10:36 | Outpatient (CLI) | payer MEDICARE, MEDICAID, SELFPAY ==
[2020-05-05 23:37] VITALS: BMI 40.1
[2020-07-23] MEDS: COVID-19 VACC #2, MRNA(MOD) 100 MCG/0.5 ML VIAL IM (10:47)
== END ==
PROVIDERS: PCP Student in an Organized Health Care Education/Training Program; Visit Provider Internal Medicine
DX: Z23 Encounter for immunization (principal)
CPT/HCPCS: 0012A; 91301

== ENCOUNTER → 2020-07-29 13:00 | Outpatient (CLI) | payer MEDICARE, MEDICAID, SELFPAY ==
[2020-05-05 23:37] VITALS: BMI 40.1
[2020-07-29] MEDS: EPOETIN ALFA-EPBX 40,000 UNIT/ML VIAL 40000 UNIT SUBCUT (14:23)
== END ==
PROVIDERS: PCP Student in an Organized Health Care Education/Training Program; Referring Provider Student in an Organized Health Care Education/Training Program; Visit Provider Internal Medicine
DX: E11.22 Type 2 diabetes mellitus with diabetic chronic kidney disease (principal); I12.9 Hypertensive chronic kidney disease with stage 1 through stage 4 chronic kidney disease, or unspecified chronic kidney disease; N18.4 Chronic kidney disease, stage 4 (severe); D63.1 Anemia in chronic kidney disease; Z79.84 Long term (current) use of oral hypoglycemic drugs
CPT/HCPCS: 96372; 99213; Q5106

== ENCOUNTER 2020-08-05 04:08 | Emergency (ER) | payer MEDICARE, MEDICAID, SELFPAY ==
[2020-05-05 23:37] VITALS: BMI 40.1
[2020-08-05 04:10] VITALS: O2SAT 100
[2020-08-05 04:11] VITALS: BP 110/52; PULSE 69; O2SAT 95
--- NOTE | 2020-08-05 04:13 | ED_ITS ---
HPI - Abdominal Pain General Chief Complaint: Abdominal Pain Stated Complaint: ABD Pain Time Seen by Provider: 08/05/20 04:15 Source: patient Mode of arrival: Ambulatory Limitations: no limitations History of Present Illness HPI narrative: 69-year-old male former smoker with history of chronic kidney disease, chronic pain, hypertension presents by EMS for evaluation of abdominal pain for the past 5 days. He has been taking pain medications for his shoulder and has had decreased bowel movements over the past few days. He denies any nausea or vomiting. He denies any fever or chills. He states his pain is mod erate and he has not taken any stool softener or or other laxative. He is otherwise well and free of complaint. He denies any obvious provocation, palliation or radiation. MD complaint: abdominal pain Onset (ago): day(s) Pain Consistency: constant Location: diffuse Severity: mild Quality: cramping Radiation: none Relieving factors: nothing Exacerbating factors: nothing Associated symptoms: nausea Related Data Home Medications Medication Instructions Recorded Confirmed doxazosin [Cardura] 4 mg PO BEDTIME 06/07/18 07/29/20 duloxetine 60 mg PO BID 09/28/18 07/29/20 polyethylene glycol 3350 17 g PO DAILY PRN 09/28/18 07/29/20 melatonin 6 mg PO BEDTIME 09/12/19 07/29/20 carvedilol [Coreg] 12.5 mg PO BID 03/25/20 07/29/20 docusate sodium 100 mg PO PRN PRN 05/06/20 07/29/20 Previous Rx's Medication Instructions Recorded citalopram 20 mg tablet 20 mg PO DAILY #90 tab 02/12/20 glimepiride 1 mg tablet 1 mg PO DAILY #90 tab 03/13/20 zinc oxide [Boudreauxs Butt Paste] 1 applic TOPICAL 6XD PRN #56 g 03/14/20 torsemide 20 mg tablet 40 mg PO DAILY PRN #60 tab 04/20/20 allopurinol 100 mg tablet 200 mg PO DAILY #180 tab 04/24/20 lidocaine 5 % topical patch 1 patch TOP DAILY #15 ea 04/29/20 acetaminophen 650 mg PO Q6HR PRN #100 tab 05/08/20 Diabetic Footwear #1 ea 07/17/20 amlodipine 10 mg tablet 10 mg PO DAILY #90 tab 07/17/20 hydralazine 10 mg tablet 10 mg PO TID #270 tab 07/17/20 pantoprazole 40 mg tablet,delayed 40 mg PO DAILY #90 tab 07/17/20 release atorvastatin 40 mg tablet 40 mg PO BEDTIME #90 tab 07/21/20 hydrocodone 5 mg-acetaminophen 325 1 tab PO Q8H PRN #90 tab 07/27/20 mg tablet cefuroxime axetil 500 mg PO BID #14 tab 08/05/20 Allergies Allergy/AdvReac Type Severity Reaction Status Date / Time latex Allergy Mild IRRITATION Verified 06/23/20 14:31 carisoprodol [From Soma] Allergy Verified 06/23/20 14:31 hydromorphone Allergy Verified 06/23/20 14:31 Sulfa (Sulfonamide AdvReac Mild N&V 1HOUR Verified 06/23/20 14:31 Antibiotics) AFTER RX, THINKS IT IS RELATED Review of Systems Constitutional Constitutional: Denies chills, Denies fatigue, Denies fever(s), Denies frequent falls, Denies lethargy and Denies weakness Eyes Eyes: Denies change in vision, Denies eye discharge, Denies irritation and Denies loss of vision ENT Ears, Nose, Mouth, and Throat: Denies change in voice, Denies dizziness, Denies neck pain, Denies sore throat and Denies throat swelling Cardiovascular Cardiovascular: Denies chest pain, Denies irregular heart rhythm, Denies lightheadedness, Denies palpitations, Denies dyspnea, Denies dyspnea on exertion and Denies orthopnea Respiratory Respiratory: Denies cough, Denies dyspnea, Denies dyspnea on exertion and Denies wheezing Gastrointestinal Gastrointestinal: Reports abdominal pain, Denies change in bowel habits, Reports constipation, Denies diarrhea, Denies nausea and Denies vomiting Musculoskeletal Musculoskeletal: Denies neck pain and Denies numbness Integumentary/Breasts Skin/Breast: Denies pruritus, Denies erythema, Denies rash and Denies wounds Neurologic Neurologic: Denies behavioral changes, Denies confusion, Denies dizziness, Denies frequent falls, Denies loss of vision, Denies numbness and Denies weakness Psychiatric Psychiatric: Denies anxiety, Denies behavioral changes, Denies confusion, Denies depression, Denies homicidal ideation and Denies suicidal ideation Endocrine Endocrine: Denies fatigue, Denies flushing and Denies palpitations Hematologic/Lymphatic Hematologic/Lymphatic: Denies easy bruising Allergic/Immunologic Allergic/Immunologic: Denies urticaria, Denies throat swelling and Denies wheezing Patient History Medical History Arthritis BPH w urinary obs/LUTS Cellulitis of left leg Chronic kidney disease, stage 4 (severe) Chronic UTI Depression Diabetes Duodenal ulcer History of cervical fracture Hyperparathyroidism Osteoarthritis Peripheral vascular disease Renal disease Surgical History H/O cervical spine surgery History of back surgery History of colectomy History of colon surgery History of fusion of cervical spine History of knee replacement Family History Mother Kidney failure Diabetes mellitus Social History marital status: number of children: 4 household members: none occupational status: employed Smoking Status: Former smoker alcohol intake: current caffeine: Yes Smoking Status: Former smoker alcohol intake frequency: 0-2 drinks per day Alcohol type: beer Substance Use Type: does not use Exam Narrative Exam Narrative: GENERAL: [69] year old patient appears stated age. Well- nourished, well-developed patient, in no obvious distress, resting comfortably HEAD: Atraumatic. Normocephalic. EYES: Pupils equal round and reactive. Extraocular motions intact. No scleral icterus. No injection or drainage. ENT: Nose without bleeding, purulent drainage. Throat without erythema, tonsillar hypertrophy or exudate. Airway patent. NECK: Trachea midline. Non tender CARDIOVASCULAR: Regular rate and rhythm without murmurs, gallops, or rubs. RESPIRATORY: Clear to auscultation. Breath sounds equal bilaterally. No wheezes, rales, or rhonchi. GASTROINTESTINAL: Abdomen soft, protuberant, decreased bowel sounds, nontender on exam EXTREMITIES: No edema or joint tenderness. BACK: Nontender without deformity or crepitance. No flank tenderness. NEURO: AOx3. SKIN: No rash or erythema of visible areas Initial Vital Signs Initial Vital Signs: Vital Signs Pulse Oximetry 100 08/05/20 04:10 Course Orders Ordered: Discontinued Medications Bisacodyl (Bisacodyl 10 Mg Supp) 10 mg AK NOW ONE Stop: 08/05/20 05:10 Last Admin: 08/05/20 05:30 Dose: 10 mg Documented by: MICHELE Sodium Chloride (Normal Saline 0.9%) 1,000 mls @ 125 mls/hr IV CONT DAVID Last Admin: 08/05/20 05:23 Dose: Not Given Documented by: MICHELE Reevaluation(s) Reevaluation #1: patient resting comfortably, laughing and joking. Very unlikely to be bowel obstruction. Vital Signs Vital signs: Vital Signs - 8 hr 08/05/20 04:10 08/05/20 04:11 08/05/20 04:15 Temperature 98.4 F Pulse Rate 69 69 Respiratory Rate 18 Blood Pressure 110/52 L 110/52 L Pulse Oximetry 100 95 95 08/05/20 04:36 Temperature Pulse Rate 70 Respiratory Rate Blood Pressure Pulse Oximetry 94 MDM - Abdominal Pain Medical Records Medical records narrative: increased crampy abdominal pain over the past few days with decreased BM. Patient has been on pain meds for shoulder pain and not taking stool softeners. No N/V. No fever or chills. Given lack of pain on exam, vomiting, or other patient and I share the opinion that this is unlikely an obstruction. He has urine which suggests UTI, ABX given. Patient given return precautions and questions answered to apparent satisfaction. Lab Data Labs: Lab Results 08/05/20 Range/Units 06:08 Urine RBC 0-1/hpf (0-5/HPF) Urine WBC 30-100/hpf H (0-5/HPF) Ur Squamous Epith Cells 0-1 /hpf (0-5/HPF) Urine Bacteria Many (>30) H (None) Ur Culture Indicated? Specimen cultured Point of care testing: Urine Dip Bedside Urine Glucose Negative Bedside Urine Bilirubin - Negative Bedside Urine Ketone - Negative Urine Specific [place] 1.010 Bedside Urine Occult Blood - Negative Bedside Urine pH 6.0 Bedside Urine Protein - Negative Bedside Urine Urobilinogen - Negative Bedside Urine Nitrite - Negative Bedside Urine Leukocytes ++ 125 Esterase Imaging Data Abdominal x-ray: Radiologist's Impression: Scattered air-fluid levels with nondilated loops of small bowel within mid abdomen Discharge Plan Departure Patient Disposition: Home Clinical Impression: Acute UTI Constipation Qualifiers: Constipation type: drug induced constipation Qualified Code(s): K59.03 - Drug induced constipation Instructions: DI for Urinary Tract Infection (UTI), DI for Constipation Activity Restrictions/Additional Instructions: *You have been diagnosed with [abdominal pain secondary to constipation (no evidence of obstruction) and urinary tract infection] *What to do: *Please continue to take your regular medications as directed. [x ] New medication prescriptions sent to your pharmacy: [[facility] in [place]] [ ] New medication written as a paper prescription [ ] No new medications given *Please follow up with your primary care provider in 2-3 days, call for an appointment. Let them know you were seen in the Emergency Department and that we ask that you be seen in follow up. We will electronically transmit a record of today's note if your PCP is in our system *If you do not have a primary care provider please contact the [facility] Resource line at [phone]. They will ask some questions about your medical history and help get you set up with a doctor in the community. *Return to Emergency Department if you should have any new, worsening or concerning symptoms, such as [fever greater than 101 F, shaking chills, worsening pain, persistent vomiting or other bothersome symptoms] *Take over the counter medications as directed: 1. Metamucil - is a bulk forming laxative and adds fiber 2. Colace - softens your stool 3. Dulcolax suppository - stimulates your bowels *Drink plenty of water and eat foods high in fiber Prescriptions: New cefuroxime axetil 500 mg tablet 500 mg PO BID Qty: 14 RF: 0 No Action citalopram 20 mg tablet 20 mg PO DAILY Qty: 90 RF: 3 glimepiride 1 mg tablet 1 mg PO DAILY Qty: 90 RF: 1 torsemide 20 mg tablet 40 mg PO DAILY PRN (Reason: edema) Qty: 60 RF: 2 allopurinol [Zyloprim] 100 mg tablet 200 mg PO DAILY Qty: 180 RF: 1 hydralazine 10 mg tablet 10 mg PO TID Qty: 270 RF: 3 pantoprazole 40 mg tablet,delayed release (DR/EC) 40 mg PO DAILY Qty: 90 RF: 3 amlodipine [Norvasc] 10 mg tablet 10 mg PO DAILY Qty: 90 RF: 3 (DME) Diabetic Footwear See Rx Instructions .Route .MEDSUPPLY Qty: 1 RF: 0 atorvastatin 40 mg tablet 40 mg PO BEDTIME Qty: 90 RF: 3 hydrocodone-acetaminophen 5-325 mg tablet 1 tab PO Q8H PRN (Reason: pain) Qty: 90 RF: 0 lidocaine 5 % adhesive patch,medicated 1 patch TOP DAILY Qty: 15 RF: 11 doxazosin [Cardura] 4 mg Tablet 4 mg PO BEDTIME RF: 0 duloxetine 60 mg capsule,delayed release(DR/EC) 60 mg PO BID RF: 0 polyethylene glycol 3350 17 gram/dose Powder 17 g PO DAILY PRN (Reason: Constipation) RF: 0 docusate sodium 100 mg Capsule 100 mg PO PRN PRN (Reason: Constipation) RF: 0 acetaminophen 325 mg Tablet 650 mg PO Q6HR PRN (Reason: Fever/Mild Pain (1-3)) Qty: 100 RF: 0 carvedilol [Coreg] 12.5 mg Tablet 12.5 mg PO BID RF: 0 melatonin 3 mg Tablet 6 mg PO BEDTIME RF: 0 zinc oxide [Boudreauxs Butt Paste] 40 % ointment 1 applic topical 6XD PRN (Reason: skin irritation) Qty: 56 RF: 0 Referrals: Mariano Keller MD [Primary Care Provider] -
--- NOTE | 2020-08-05 04:14 | DI.RAD.S_ITS ---
PROCEDURE: XR ACUTE ABDOMEN SERIES INDICATIONS: Abdominal pain TECHNIQUE: One view chest and two views of the abdomen were acquired. COMPARISON: [facility], , XR ACUTE ABDOMEN SERIES, 01/22/2019, 22:01. FINDINGS: Surgical changes and devices: Cervical as well as lower thoracic fusion rods are noted. Fractured cervical fixation screws are present which are unchanged. Chest: Lungs demonstrate bilateral pulmonary opacities. Heart size is normal. No pleural effusions. No pneumoperitoneum. Abdomen: Bowel gas pattern is nonspecific. There are nondilated loops of small bowel with scattered fluid levels. No suspicious calcifications. Visualized solid organ contours appear normal. Bones: No suspicious bony lesions. IMPRESSION: 1. Nonspecific gas pattern with nondilated loops of small bowel with scattered fluid levels. This could represent ileus. Developing partial small bowel obstruction cannot be definitively excluded. Other differential diagnosis would include enteritis. The above findings are concordant with preliminary report. Dictated by: Ayanna Lux M.D. on 08/05/2020 at 8:55 Approved by: Ayanna Lux M.D. on 08/05/2020 at 8:57
[2020-08-05 04:15] VITALS: BP 110/52; PULSE 69; RESP 18; TEMP 36.9; O2SAT 95; BMI 43.3
[2020-08-05 04:36] VITALS: PULSE 70; O2SAT 94
[2020-08-05] MEDS: BISACODYL 10 MG SUPP PR (05:30)
[2020-08-05 06:17] LABS: RBC Urine 0-1/HPF (0-5/HPF); Squamous Epithelial Cell Urine 0-1 /HPF (0-5/HPF); WBC Urine 30-100/HPF (0-5/HPF)
[2020-08-05 06:18] LABS: Bacteria Urine Many (>30); Culture Indicated Urine Specimen Cultured
[2020-08-05 08:56] VITALS: BP 130/67; PULSE 69; RESP 20; O2SAT 96
== END 2020-08-05 08:41 | disposition home or self-care (01) ==
PROVIDERS: Emergency Provider Emergency Medicine; PCP Student in an Organized Health Care Education/Training Program
DX: N39.0 Urinary tract infection, site not specified (principal); K59.03 Drug induced constipation
CPT/HCPCS: 74022; 81003; 81015; 87077; 87086; 87186; 99284

== ENCOUNTER → 2020-08-26 12:56 | Outpatient (CLI) | payer MEDICARE, MEDICAID, SELFPAY ==
[2020-05-05 23:37] VITALS: BMI 40.1
[2020-08-26 13:07] VITALS: BP 136/72; PULSE 72; RESP 16; TEMP 37; O2SAT 93
[2020-08-26] MEDS: EPOETIN ALFA-EPBX 40,000 UNIT/ML VIAL 40000 UNIT SUBCUT (13:28)
--- NOTE | 2020-08-26 13:45 | PHA.NOTE ---
EPO Injection: Patient is here for EPO 40,000 units SubQ injection every 2 weeks. Today Hgb/Hct = 8.1/25.3, BP = 136/72 Plan to give EPO dose as written today.
== END ==
PROVIDERS: PCP Student in an Organized Health Care Education/Training Program; Referring Provider Internal Medicine; Visit Provider Internal Medicine
DX: E11.22 Type 2 diabetes mellitus with diabetic chronic kidney disease (principal); I12.9 Hypertensive chronic kidney disease with stage 1 through stage 4 chronic kidney disease, or unspecified chronic kidney disease; N18.4 Chronic kidney disease, stage 4 (severe); D63.1 Anemia in chronic kidney disease
CPT/HCPCS: 96372; Q5106

== ENCOUNTER 2020-08-30 16:30 | Emergency (ER) | payer MEDICARE, MEDICAID, SELFPAY ==
[2020-05-05 23:37] VITALS: BMI 40.1
[2020-08-30 16:30] VITALS: BP 101/45; PULSE 85; RESP 22; TEMP 37.4; O2SAT 95; BMI 42.8
[2020-08-30 17:12] LABS: Alanine Aminotransferase 9 IU/L (<50); Albumin 3.6 g/dL (3.5-5.0); Alkaline Phosphatase 106 U/L (38-126); Aspartate Aminotransferase 19 IU/L (17-59); BUN Creatinine Ratio 16.7 (6-22); Bilirubin Total 0.5 mg/dL (0.2-1.3); Blood Urea Nitrogen 41 mg/dL (9-20); Calcium 8.7 mg/dL (8.4-10.2); Carbon Dioxide 23 mmol/L (22-32); Chloride 104 mmol/L (98-107); Estimated Glomerular Filt Rate 26.3 mL/min (>60); Globulin 3.5 g/dL (1.7-4.1); Glucose 121 mg/dL (80-110); HEMOLYSIS < 15 (0-50); Lipase 72 U/L (23-300); Potassium 4.4 mmol/L (3.4-5.1); Sodium 136 mmol/L (137-145); Total Protein 7.1 g/dL (6.3-8.2)
[2020-08-30 17:13] LABS: Add Manual Diff / Slide Review NO; Basophils Absolute Auto 100 /uL (0-100); Basophils Percent Auto 0.6 % (0-2); Eosinophils Absolute Auto 400 /uL (0-450); Eosinophils Percent Auto 3.8 % (2-4); Hemoglobin 8.9 g/dL (13.5-17.5); Lymphocytes Absolute Auto 900 /uL (1100-4500); Lymphocytes Percent Auto 9.5 % (25-40); Mean Corpuscular HGB Conc 31.7 % (30-36); Mean Corpuscular Hemoglobin 29.2 PG (26-34); Mean Corpuscular Volume 92.1 fL (80-100); Monocytes Absolute Auto 900 /uL (0-900); Monocytes Percent Auto 9.3 % (3-14); Neutrophils Absolute Auto 7500 /uL (1500-7000); Neutrophils Percent Auto 76.8 % (50-75); Platelet Count 228 X10^3/uL (150-400); Red Blood Cell Count 3.05 X10^6/uL (4.5-5.9); Red Cell Distribution Width 19.1 % (11.6-14.8); White Blood Cell Count 9.8 X10^3/uL (4.5-11.0)
--- NOTE | 2020-08-30 17:14 | PC.NURSE ---
Pt states I just pee'd and I'm ready to go home now. Pt continuously states that he can't get comfortable in our beds and now that he has urinated he wants to go back home and is requesting us to arrange a BLS transport for him. chain saw mechanic notified
[2020-08-30 17:28] LABS: Bacteria Urine None Seen; RBC Urine None Seen (0-5/HPF)
[2020-08-30 17:35] LABS: Amorphous Sediment Urine 1+; Culture Indicated Urine Cult Not Indicated; Squamous Epithelial Cell Urine 1-5 /HPF (0-5/HPF); WBC Urine 1-5/HPF (0-5/HPF)
--- NOTE | 2020-08-30 17:44 | PC.NURSE ---
Other staff and I assisted pt to a WC per his request and for his comfort and noticed that the pt had had a large BM. Pt states that he was embarrassed and did not want to tell us that he was incontinent of bowel and that was why he wanted to go home. We got him cleaned up and he is feeling much better. He is agreeable to wait to see the MD now.
--- NOTE | 2020-08-30 18:43 | ED_ITS ---
HPI - General Adult General Chief complaint: Abdominal Pain Stated complaint: Feeling Unwell Time Seen by Provider: 08/30/20 16:45 Source: patient and EMS Mode of arrival: EMS Limitations: no limitations History of Present Illness HPI narrative: Patient is a 69-year-old male who is brought in by EMS for initially a stated complaint of feeling unwell. He stated that he called EMS because he was having some abdominal discomfort. After arrival here to the emergency department he did have a bowel movement which improved/ resolved his symptoms for which he called EMS. By the time I with went into evaluate the patient his labs had returned he states he was feeling well enough to be discharged home. Related Data Home Medications Medication Instructions Recorded Confirmed doxazosin [Cardura] 4 mg PO BEDTIME 06/07/18 08/26/20 duloxetine 60 mg PO BID 09/28/18 08/26/20 melatonin 6 mg PO BEDTIME 09/12/19 08/26/20 carvedilol [Coreg] 12.5 mg PO BID 03/25/20 08/26/20 docusate sodium 100 mg PO PRN PRN 05/06/20 08/26/20 Previous Rx's Medication Instructions Recorded citalopram 20 mg tablet 20 mg PO DAILY #90 tab 02/12/20 glimepiride 1 mg tablet 1 mg PO DAILY #90 tab 03/13/20 zinc oxide [Boudreauxs Butt Paste] 1 applic TOPICAL 6XD PRN #56 g 03/14/20 torsemide 20 mg tablet 40 mg PO DAILY PRN #60 tab 04/20/20 allopurinol 100 mg tablet 200 mg PO DAILY #180 tab 04/24/20 lidocaine 5 % topical patch 1 patch TOP DAILY #15 ea 04/29/20 acetaminophen 650 mg PO Q6HR PRN #100 tab 05/08/20 Diabetic Footwear #1 ea 07/17/20 amlodipine 10 mg tablet 10 mg PO DAILY #90 tab 07/17/20 hydralazine 10 mg tablet 10 mg PO TID #270 tab 07/17/20 pantoprazole 40 mg tablet,delayed 40 mg PO DAILY #90 tab 07/17/20 release atorvastatin 40 mg tablet 40 mg PO BEDTIME #90 tab 07/21/20 polyethylene glycol 3350 17 17 g PO DAILY PRN #850 g 08/07/20 gram/dose oral powder fosfomycin tromethamine 3 gram 3 g PO .Q72HR #3 ea 08/17/20 oral packet hydrocodone 5 mg-acetaminophen 325 1 tab PO Q8H PRN #90 tab 08/26/20 mg tablet hydroxyzine HCl 25 mg tablet 25 mg PO BEDTIME PRN #30 tab 08/26/20 Allergies Allergy/AdvReac Type Severity Reaction Status Date / Time latex Allergy Mild IRRITATION Verified 08/30/20 16:47 carisoprodol [From Soma] Allergy Verified 08/30/20 16:47 hydromorphone Allergy Verified 08/30/20 16:47 Sulfa (Sulfonamide AdvReac Mild N&V 1HOUR Verified 08/30/20 16:47 Antibiotics) AFTER RX, THINKS IT IS RELATED Review of Systems Constitutional Constitutional: Denies fever(s) Comments: Feeling unwell Cardiovascular Cardiovascular: Reports system reviewed and no additional complaints, except as documented Respiratory Respiratory: Reports system reviewed and no additional complaints, except as documented Gastrointestinal Gastrointestinal: Reports abdominal pain, Denies nausea and Denies vomiting Integumentary/Breasts Skin/Breast: Reports system reviewed and no additional complaints, except as documented Hematologic/Lymphatic On Anticoagulants: No Patient History Medical History Arthritis BPH w urinary obs/LUTS Cellulitis of left leg Chronic kidney disease, stage 4 (severe) Chronic UTI Depression Diabetes Duodenal ulcer History of cervical fracture Hyperparathyroidism Osteoarthritis Peripheral vascular disease Renal disease Surgical History H/O cervical spine surgery History of back surgery History of colectomy History of colon surgery History of fusion of cervical spine History of knee replacement Family History Mother Kidney failure Diabetes mellitus Social History marital status: number of children: 4 household members: none occupational status: employed Smoking Status: Former smoker alcohol intake: current caffeine: Yes Smoking Status: Former smoker alcohol intake frequency: 3 or more drinks per day Alcohol type: beer Substance Use Type: does not use Exam Initial Vital Signs Initial Vital Signs: Vital Signs Temperature 99.3 F 08/30/20 16:30 Pulse Rate 85 06/27/21 16:30 Respiratory Rate 22 08/30/20 16:30 Blood Pressure 101/45 L 08/30/20 16:30 Pulse Oximetry 95 08/30/20 16:30 Const General: cooperative and comfortable Limitations: mental status not altered HENMT Head: normal to inspection and normocephalic Resp Effort & Inspection: normal respiratory effort Cardio Rate: regular rate GI Inspection: distended Palpation: soft Skin Lesions: no lesions Rashes: no rashes Neuro General: patient alert and patient awake Cognition: normal cognition Speech: speech normal Extrem General: normal to inspection and capillary refill normal Psych Appearance: grossly normal and well kempt Course Orders Ordered: ED Orders 08/30/20 16:44 Complete Blood Count AUTO DIFF Stat Comprehensive Metabolic Panel Stat Lipase Stat 08/30/20 16:58 EKG-12 Lead Stat 08/30/20 17:21 Urine Microscopic Stat Vital Signs Vital signs: Vital Signs - 8 hr 08/30/20 21:14 Pulse Rate 79 Respiratory Rate 17 Blood Pressure 114/56 L Pulse Oximetry 95 Medical Decision Making Lab Data Lab results reviewed: Yes I reviewed the patient's lab results. Result diagrams: 08/30/20 16:44 08/30/20 16:44 Labs: Lab Results 08/30/20 08/30/20 08/30/20 Range/Units 16:44 16:44 17:21 WBC 9.8 (4.5-11.0) X10^3/uL RBC 3.05 L (4.5-5.9) X10^6/uL Hgb 8.9 L (13.5-17.5) g/dL Hct 28.0 L (41-53) % MCV 92.1 (80-100) fL MCH 29.2 (26-34) PG MCHC 31.7 (30-36) % RDW 19.1 H (11.6-14.8) % Plt Count 228 (150-400) X10^3/uL Neut % (Auto) 76.8 H (50-75) % Lymph % (Auto) 9.5 L (25-40) % [place] % (Auto) 9.3 (3-14) % Eos % (Auto) 3.8 (2-4) % Baso % (Auto) 0.6 (0-2) % Neut # (Auto) 7500 H (4935-4122) /uL Lymph # (Auto) 900 L (0817-0309) /uL Webster # (Auto) 900 (0-900) /uL Eos # (Auto) 400 (0-450) /uL Baso # (Auto) 100 (0-100) /uL Sodium 136 L (137-145) mmol/L Potassium 4.4 (3.4-5.1) mmol/L Chloride 104 (98-107) mmol/L Carbon Dioxide 23 (22-32) mmol/L BUN 41 H (9-20) mg/dL Creatinine 2.46 H (0.66-1.25) mg/dL Estimated GFR 26.3 L (>60) mL/min BUN/Creatinine Ratio 16.7 (6-22) Glucose 121 H (80-110) mg/dL Calcium 8.7 (8.4-10.2) mg/dL Total Bilirubin 0.5 (0.2-1.3) mg/dL AST 19 (17-59) IU/L ALT 9 (<50) IU/L Alkaline Phosphatase 106 (38-126) U/L Total Protein 7.1 (6.3-8.2) g/dL Albumin 3.6 (3.5-5.0) g/dL Globulin 3.5 (1.7-4.1) g/dL Albumin/Globulin Ratio 1.0 (1.0-2.8) Lipase 72 (23-300) U/L Urine RBC None seen (0-5/HPF) Urine WBC 1-5/hpf (0-5/HPF) Ur Squamous Epith Cells 1-5 /hpf (0-5/HPF) Amorphous Sediment 1+ Urine Bacteria None seen (None) Ur Culture Indicated? Cult not indicated Urine Dip Bedside Urine Glucose Negative Bedside Urine Bilirubin - Negative Bedside Urine Ketone - Negative Urine Specific [place] 1.010 Bedside Urine Occult Blood - Negative Bedside Urine pH 6 Bedside Urine Protein + 30 Bedside Urine Urobilinogen - Negative Bedside Urine Nitrite - Negative Bedside Urine Leukocytes - Negative Esterase Point of care testing: Urine Dip Bedside Urine Glucose Negative Bedside Urine Bilirubin - Negative Bedside Urine Ketone - Negative Urine Specific [place] 1.010 Bedside Urine Occult Blood - Negative Bedside Urine pH 6 Bedside Urine Protein + 30 Bedside Urine Urobilinogen - Negative Bedside Urine Nitrite - Negative Bedside Urine Leukocytes - Negative Esterase [facility] Narrative Medical decision making narrative: after having a bowel movement here in the emergency department he states he was feeling much better and like to be discharged home. He does have a distended abdomen but this is not new for him. He has a large hernia from a prior surgery that he states has not changed. He is afebrile. Will discharge home without further workup. He was given return precautions. He expressed understanding and agreement. Discharge Plan Departure Patient Disposition: Home Clinical Impression: Abdominal pain, Constipation Instructions: DI for Abdominal Pain-Adult, DI for Constipation Activity Restrictions/Additional Instructions: I recommend that you contact your primary doctor for a follow-up. Also recommend that you return to the emergency department for any new or worsening symptoms. Prescriptions: No Action citalopram 20 mg tablet 20 mg PO DAILY Qty: 90 RF: 3 glimepiride 1 mg tablet 1 mg PO DAILY Qty: 90 RF: 1 torsemide 20 mg tablet 40 mg PO DAILY PRN (Reason: edema) Qty: 60 RF: 2 allopurinol [Zyloprim] 100 mg tablet 200 mg PO DAILY Qty: 180 RF: 1 hydralazine 10 mg tablet 10 mg PO TID Qty: 270 RF: 3 pantoprazole 40 mg tablet,delayed release (DR/EC) 40 mg PO DAILY Qty: 90 RF: 3 amlodipine [Norvasc] 10 mg tablet 10 mg PO DAILY Qty: 90 RF: 3 (DME) Diabetic Footwear See Rx Instructions .Route .MEDSUPPLY Qty: 1 RF: 0 atorvastatin 40 mg tablet 40 mg PO BEDTIME Qty: 90 RF: 3 polyethylene glycol 3350 17 gram/dose powder 17 g PO DAILY PRN (Reason: Constipation) Qty: 850 RF: 1 fosfomycin tromethamine 3 gram packet 3 g PO .Q72HR Qty: 3 RF: 0 hydroxyzine HCl 25 mg tablet 25 mg PO BEDTIME PRN (Reason: itching) Qty: 30 RF: 0 hydrocodone-acetaminophen 5-325 mg tablet 1 tab PO Q8H PRN (Reason: pain) Qty: 90 RF: 0 lidocaine 5 % adhesive patch,medicated 1 patch TOP DAILY Qty: 15 RF: 11 doxazosin [Cardura] 4 mg Tablet 4 mg PO BEDTIME RF: 0 duloxetine 60 mg capsule,delayed release(DR/EC) 60 mg PO BID RF: 0 docusate sodium 100 mg Capsule 100 mg PO PRN PRN (Reason: Constipation) RF: 0 acetaminophen 325 mg Tablet 650 mg PO Q6HR PRN (Reason: Fever/Mild Pain (1-3)) Qty: 100 RF: 0 carvedilol [Coreg] 12.5 mg Tablet 12.5 mg PO BID RF: 0 melatonin 3 mg Tablet 6 mg PO BEDTIME RF: 0 zinc oxide [Boudreauxs Butt Paste] 40 % ointment 1 applic topical 6XD PRN (Reason: skin irritation) Qty: 56 RF: 0 Referrals: Mariano Keller MD [Primary Care Provider] -
[2020-08-30 21:14] VITALS: BP 114/56; PULSE 79; RESP 17; O2SAT 95
== END 2020-08-30 21:48 | disposition home or self-care (01) ==
PROVIDERS: Emergency Medicine; Emergency Provider Emergency Medicine; PCP Student in an Organized Health Care Education/Training Program
DX: R10.9 Unspecified abdominal pain (principal); K59.00 Constipation, unspecified
CPT/HCPCS: 36415; 80053; 81003; 81015; 83690; 85025; 93005; 99283

== ENCOUNTER → 2020-09-09 13:02 | Outpatient (CLI) | payer MEDICARE, MEDICAID, SELFPAY ==
[2020-05-05 23:37] VITALS: BMI 40.1
[2020-09-09] MEDS: EPOETIN ALFA-EPBX 40,000 UNIT/ML VIAL 40000 UNIT SUBCUT (14:55)
== END ==
PROVIDERS: PCP Student in an Organized Health Care Education/Training Program; Referring Provider Internal Medicine; Visit Provider Internal Medicine
DX: E11.22 Type 2 diabetes mellitus with diabetic chronic kidney disease (principal); I12.9 Hypertensive chronic kidney disease with stage 1 through stage 4 chronic kidney disease, or unspecified chronic kidney disease; N18.4 Chronic kidney disease, stage 4 (severe); D63.1 Anemia in chronic kidney disease
CPT/HCPCS: 36415; 80069; 82306; 83970; 85025; 96372; 99214; Q5106

== ENCOUNTER → 2020-09-22 15:41 | Outpatient (CLI) | payer MEDICARE, MEDICAID, SELFPAY ==
[2020-05-05 23:37] VITALS: BMI 40.1
[2020-09-22 15:52] LABS: RBC Urine None Seen (0-5/HPF)
[2020-09-22 16:19] LABS: Appearance Urine UA CLEAR; Bilirubin Urine UA NEGATIVE (NEGATIVE); Color Urine UA YELLOW; Glucose Urine UA TRACE g/dL (Negative); Ketones Urine UA NEGATIVE (NEGATIVE); Leukocyte Esterase Urine UA TRACE (NEGATIVE); Nitrite Urine UA NEGATIVE (Negative); Occult Blood Urine UA NEGATIVE (Negative); Protein Urine UA TRACE (Negative); Urobilinogen Urine UA 0.2 E.U./dL (0.2); pH Urine UA 5.5 (4.5-8.0)
[2020-09-22 16:32] LABS: Amorphous Sediment Urine 1+; Bacteria Urine Occasional (0-1); Culture Indicated Urine Specimen Cultured; Squamous Epithelial Cell Urine 1-5 /HPF (0-5/HPF); WBC Urine 1-5/HPF (0-5/HPF)
== END ==
PROVIDERS: PCP Student in an Organized Health Care Education/Training Program; Referring Provider Student in an Organized Health Care Education/Training Program; Visit Provider Student in an Organized Health Care Education/Training Program
DX: N39.0 Urinary tract infection, site not specified (principal)
CPT/HCPCS: 81001; 87086

== ENCOUNTER → 2020-09-23 12:33 | Outpatient (CLI) | payer MEDICARE, MEDICAID, SELFPAY ==
[2020-05-05 23:37] VITALS: BMI 40.1
[2020-09-23 13:03] VITALS: BP 149/70; PULSE 78; RESP 18; O2SAT 96
[2020-09-23] MEDS: EPOETIN ALFA-EPBX 40,000 UNIT/ML VIAL 40000 UNIT SUBCUT (13:05)
--- NOTE | 2020-09-23 17:09 | ONC.PHA ---
EPO Injection: Patient is here for EPO 40,000 units SubQ injection every 2 weeks. Today Hgb/Hct = 9.8/30.4, BP = 140/71 Plan to give EPO dose as written for today. Vital Signs Pulse Rate 78 Respiratory Rate 18 Blood Pressure 149/70 Pulse Oximetry 96 Allergies Allergy/AdvReac Type Severity Reaction Status Date / Time latex Allergy Mild IRRITATION Verified 08/30/20 16:47 carisoprodol [From Soma] Allergy Verified 08/30/20 16:47 hydromorphone Allergy Verified 08/30/20 16:47 Sulfa (Sulfonamide AdvReac Mild N&V 1HOUR Verified 08/30/20 16:47 Antibiotics) AFTER RX, THINKS IT IS RELATED
== END ==
PROVIDERS: PCP Student in an Organized Health Care Education/Training Program; Referring Provider Internal Medicine Medical Oncology; Visit Provider Internal Medicine Medical Oncology
DX: N18.4 Chronic kidney disease, stage 4 (severe) (principal); E11.22 Type 2 diabetes mellitus with diabetic chronic kidney disease; I12.9 Hypertensive chronic kidney disease with stage 1 through stage 4 chronic kidney disease, or unspecified chronic kidney disease; D63.1 Anemia in chronic kidney disease
CPT/HCPCS: 36415; 85025; 96372; Q5106

== ENCOUNTER → 2020-10-06 10:22 | Outpatient (CLI) | payer MEDICARE, MEDICAID, SELFPAY ==
[2020-05-05 23:37] VITALS: BMI 40.1
[2020-10-06 10:50] LABS: Bacteria Urine None Seen; RBC Urine None Seen (0-5/HPF)
[2020-10-06 11:54] LABS: Add Manual Diff / Slide Review NO; Basophils Absolute Auto 0 /uL (0-100); Basophils Percent Auto 0.3 % (0-2); Eosinophils Absolute Auto 600 /uL (0-450); Eosinophils Percent Auto 6.1 % (2-4); Hematocrit 29.4 % (41-53); Hemoglobin 9.5 g/dL (13.5-17.5); Lymphocytes Absolute Auto 700 /uL (1100-4500); Lymphocytes Percent Auto 6.7 % (25-40); Mean Corpuscular HGB Conc 32.2 % (30-36); Mean Corpuscular Hemoglobin 29.6 PG (26-34); Monocytes Absolute Auto 700 /uL (0-900); Monocytes Percent Auto 6.6 % (3-14); Neutrophils Absolute Auto 8000 /uL (1500-7000); Neutrophils Percent Auto 80.3 % (50-75); Platelet Count 166 X10^3/uL (150-400); Red Blood Cell Count 3.19 X10^6/uL (4.5-5.9); Red Cell Distribution Width 17.1 % (11.6-14.8); White Blood Cell Count 9.9 X10^3/uL (4.5-11.0)
[2020-10-06 12:33] LABS: Appearance Urine UA CLEAR; Bilirubin Urine UA NEGATIVE (NEGATIVE); Color Urine UA YELLOW; Glucose Urine UA TRACE g/dL (Negative); Ketones Urine UA NEGATIVE (NEGATIVE); Leukocyte Esterase Urine UA NEGATIVE (NEGATIVE); Nitrite Urine UA NEGATIVE (Negative); Occult Blood Urine UA NEGATIVE (Negative); Protein Urine UA 1+ (Negative); Urobilinogen Urine UA 0.2 E.U./dL (0.2); pH Urine UA 5.5 (4.5-8.0)
[2020-10-06 12:49] LABS: Culture Indicated Urine Cult Not Indicated; Squamous Epithelial Cell Urine 1-5 /HPF (0-5/HPF); WBC Urine 0-1/HPF (0-5/HPF)
== END ==
PROVIDERS: Internal Medicine; PCP Student in an Organized Health Care Education/Training Program; Referring Provider Student in an Organized Health Care Education/Training Program; Visit Provider Student in an Organized Health Care Education/Training Program
DX: I10 Essential (primary) hypertension (principal); D63.1 Anemia in chronic kidney disease; N18.9 Chronic kidney disease, unspecified; N39.0 Urinary tract infection, site not specified
CPT/HCPCS: 36415; 81001; 85025

== ENCOUNTER → 2020-10-07 12:57 | Outpatient (CLI) | payer MEDICARE, MEDICAID, SELFPAY ==
[2020-05-05 23:37] VITALS: BMI 40.1
[2020-10-07 13:17] VITALS: BP 157/66; PULSE 72; RESP 17; TEMP 37; O2SAT 97
[2020-10-07] MEDS: EPOETIN ALFA-EPBX 40,000 UNIT/ML VIAL 40000 UNIT SUBCUT (13:46)
--- NOTE | 2020-10-07 17:20 | ONC.PHA ---
EPO Injection: Patient is here for EPO 40,000 units SubQ injection every 2 weeks. Labs on 10/06/2020: Hgb/Hct = 9.5/29.4 Today BP = 157/66 Plan to give EPO dose as ordered for today. Vital Signs Temperature 98.6 F Pulse Rate 72 Respiratory Rate 17 Blood Pressure 157/66 Pulse Oximetry 97 Allergies Allergy/AdvReac Type Severity Reaction Status Date / Time latex Allergy Mild IRRITATION Verified 08/30/20 16:47 carisoprodol [From Soma] Allergy Verified 08/30/20 16:47 hydromorphone Allergy Verified 08/30/20 16:47 Sulfa (Sulfonamide AdvReac Mild N&V 1HOUR Verified 08/30/20 16:47 Antibiotics) AFTER RX, THINKS IT IS RELATED
== END ==
PROVIDERS: PCP Student in an Organized Health Care Education/Training Program; Referring Provider Internal Medicine Medical Oncology; Visit Provider Internal Medicine Medical Oncology
DX: E11.22 Type 2 diabetes mellitus with diabetic chronic kidney disease (principal); I12.9 Hypertensive chronic kidney disease with stage 1 through stage 4 chronic kidney disease, or unspecified chronic kidney disease; N18.4 Chronic kidney disease, stage 4 (severe); D63.1 Anemia in chronic kidney disease
CPT/HCPCS: 96372; Q5106

== ENCOUNTER → 2020-10-21 13:47 | Outpatient (CLI) | payer MEDICARE, MEDICAID, SELFPAY ==
[2020-05-05 23:37] VITALS: BMI 40.1
[2020-10-21 14:02] VITALS: BP 138/65; PULSE 60; RESP 18; TEMP 35.9; O2SAT 97
[2020-10-21] MEDS: EPOETIN ALFA-EPBX 40,000 UNIT/ML VIAL 40000 UNIT SUBCUT (14:09)
--- NOTE | 2020-10-21 17:23 | ONC.PHA ---
EPO Injection: Patient is here for EPO 40,000 units SubQ injection every 2 weeks. Today labs: Hgb/Hct = 9.7/30.8 Today BP = 140/80 Plan to give EPO dose as ordered for this week. Vital Signs Temperature 96.6 F Pulse Rate 60 Respiratory Rate 18 Blood Pressure 138/65 Pulse Oximetry 97 Allergies Allergy/AdvReac Type Severity Reaction Status Date / Time latex Allergy Mild IRRITATION Verified 10/21/20 12:58 carisoprodol [From Soma] Allergy Verified 10/21/20 12:58 hydromorphone Allergy Verified 10/21/20 12:58 Sulfa (Sulfonamide AdvReac Mild N&V 1HOUR Verified 10/21/20 12:58 Antibiotics) AFTER RX, THINKS IT IS RELATED
== END ==
PROVIDERS: PCP Student in an Organized Health Care Education/Training Program; Referring Provider Internal Medicine Medical Oncology; Visit Provider Internal Medicine Medical Oncology
DX: E11.22 Type 2 diabetes mellitus with diabetic chronic kidney disease (principal); I12.9 Hypertensive chronic kidney disease with stage 1 through stage 4 chronic kidney disease, or unspecified chronic kidney disease; N18.4 Chronic kidney disease, stage 4 (severe); D63.1 Anemia in chronic kidney disease
CPT/HCPCS: 96372; Q5106

== ENCOUNTER → 2020-11-04 10:31 | Outpatient (CLI) | payer MEDICARE, MEDICAID, SELFPAY ==
[2020-05-05 23:37] VITALS: BMI 40.1
[2020-11-04 11:18] VITALS: BP 131/62; PULSE 63; RESP 16; TEMP 36; O2SAT 96
[2020-11-04] MEDS: EPOETIN ALFA-EPBX 40,000 UNIT/ML VIAL 40000 UNIT SUBCUT (11:36)
--- NOTE | 2020-11-04 17:09 | ONC.PHA ---
EPO Injection: Patient is here for EPO 40,000 units SubQ injection every 2 weeks. Reviewed 11/03/2020 labs: Hgb/Hct = 10.2/31.4 Today BP = 131/62 Plan to give EPO dose as ordered for tday. Vital Signs Temperature 96.8 F Pulse Rate 63 Respiratory Rate 16 Blood Pressure 131/62 Pulse Oximetry 96 Weight 137.3 kg Allergies Allergy/AdvReac Type Severity Reaction Status Date / Time latex Allergy Mild IRRITATION Verified 10/22/20 10:18 carisoprodol [From Soma] Allergy Verified 10/22/20 10:18 hydromorphone Allergy Verified 10/22/20 10:18 Sulfa (Sulfonamide AdvReac Mild N&V 1HOUR Verified 10/22/20 10:18 Antibiotics) AFTER RX, THINKS IT IS RELATED
== END ==
PROVIDERS: PCP Student in an Organized Health Care Education/Training Program; Referring Provider Internal Medicine Medical Oncology; Visit Provider Internal Medicine Medical Oncology
DX: E11.22 Type 2 diabetes mellitus with diabetic chronic kidney disease (principal); I12.9 Hypertensive chronic kidney disease with stage 1 through stage 4 chronic kidney disease, or unspecified chronic kidney disease; N18.4 Chronic kidney disease, stage 4 (severe); D63.1 Anemia in chronic kidney disease
CPT/HCPCS: 96372; 99213; Q5106

== ENCOUNTER 2020-11-16 23:44 | Emergency (ER) | payer MEDICARE, MEDICAID, SELFPAY ==
[2020-05-05 23:37] VITALS: BMI 40.1
[2020-11-17 00:02] VITALS: BP 152/68; PULSE 70; RESP 16; TEMP 37.1; O2SAT 96; BMI 41.3
--- NOTE | 2020-11-17 01:33 | PC.NURSE ---
Pt is screaming at staff, interacting with patients families and asking for a ride. Pt called police and said he was being held against his will. This RN spoke with officer and it was agreed that his options have been given. Pt offered a wheelchair out to the lobby.
--- NOTE | 2020-11-17 03:21 | ED.EXTPRO ---
HPI - Extremity Problem General Chief complaint: Extremity Problem,Nontraumatic Stated complaint: Ankle Pain Time Seen by Provider: 11/17/20 03:21 Source: patient Mode of arrival: Ambulatory History of Present Illness HPI Narrative: 70-year-old gentleman with a history of chronic kidney disease, BPH, chronic UTI, diabetes, depression, chronic pain and regular prescription narcotic use presents via EMS complaining of right lower extremity pain. He states that it started this evening. He reports no fevers or chills. No specific trauma. There are significant volumes on the evening of his arrival and extended wait times. At 1-1/2 hours he began verbally assaulting the nurse complaining that he had been waiting for 6 hours and needed to be seen immediately. She explained him the nature of triage and waiting for care in the emergency department. He became more demanding and more belligerent. Stated that he wanted to leave and was told that he could certainly do so and then he demanded that we drive him home as well as provide him with food and multiple blankets. Attempts were made to help him get home, uses made as comfortable as possible with multiple blankets. By the time I am able to see and evaluate this gentleman he no longer has any pain or other complaints. He states that the 2 gentleman that are able to give him a ride home are both in the emergency department. This is not the case. Related Data Home Medications Medication Instructions Recorded Confirmed melatonin 3 mg tablet 6 mg PO BEDTIME 09/12/19 11/04/20 docusate sodium 100 mg capsule 100 mg PO PRN PRN 05/06/20 11/04/20 Previous Rx's Medication Instructions Recorded citalopram 20 mg tablet 20 mg PO DAILY #90 tab 02/12/20 zinc oxide 40 % topical ointment 1 applic TOPICAL 6XD PRN #56 g 03/14/20 (Boudreauxs Butt Paste) lidocaine 5 % topical patch 1 patch TOP DAILY #15 ea 04/29/20 acetaminophen 325 mg tablet 650 mg PO Q6HR PRN #100 tab 05/08/20 Diabetic Footwear #1 ea 07/17/20 amlodipine 10 mg tablet (Norvasc) 10 mg PO DAILY #90 tab 07/17/20 hydralazine 10 mg tablet 10 mg PO TID #270 tab 07/17/20 pantoprazole 40 mg tablet,delayed 40 mg PO DAILY #90 tab 07/17/20 release atorvastatin 40 mg tablet 40 mg PO BEDTIME #90 tab 07/21/20 polyethylene glycol 3350 17 17 g PO DAILY PRN #850 g 08/07/20 gram/dose oral powder hydroxyzine HCl 25 mg tablet 25 mg PO BEDTIME PRN #30 tab 08/26/20 carvedilol 12.5 mg tablet (Coreg) 12.5 mg PO BID #180 tab 09/03/20 doxazosin 4 mg tablet See Rx Instructions .ROUTE 09/03/20 .COMPLEX #90 tab torsemide 20 mg tablet 40 mg PO DAILY PRN #60 tab 09/03/20 hydrocodone 5 mg-acetaminophen 325 1 tab PO Q8H PRN #90 tab 10/22/20 mg tablet allopurinol 100 mg tablet 200 mg PO DAILY #180 tab 10/26/20 (Zyloprim) duloxetine 60 mg capsule,delayed 60 mg PO BID #180 cap 11/12/20 release Allergies Allergy/AdvReac Type Severity Reaction Status Date / Time latex Allergy Mild IRRITATION Verified 10/22/20 10:18 carisoprodol [From Soma] Allergy Verified 10/22/20 10:18 hydromorphone Allergy Verified 10/22/20 10:18 Sulfa (Sulfonamide AdvReac Mild N&V 1HOUR Verified 10/22/20 10:18 Antibiotics) AFTER RX, THINKS IT IS RELATED Review of Systems Review of Systems Narrative: Remainder of complete review of systems is otherwise unremarkable except for that included in the HPI. Patient History Medical History Arthritis BPH w urinary obs/LUTS Cellulitis of left leg Chronic kidney disease, stage 4 (severe) Chronic UTI Depression Diabetes Duodenal ulcer History of cervical fracture History of UTI Hyperparathyroidism Osteoarthritis Peripheral vascular disease Renal disease Surgical History H/O cervical spine surgery History of back surgery History of colectomy History of colon surgery History of fusion of cervical spine History of knee replacement Family History Mother Kidney failure Diabetes mellitus Social History marital status: number of children: 4 household members: none occupational status: employed Smoking Status: Former smoker alcohol intake: current caffeine: Yes Smoking Status: Former smoker alcohol intake frequency: 3 or more drinks per day Alcohol type: beer Substance Use Type: does not use Exam Narrative Exam Narrative: General: Asleep, slightly confused as he is awoken from sleep, in no acute distress Respiratory: Able to speak in full sentences, no obvious respiratory distress Skin: No obvious rashes, chronic venous stasis changes without cellulitis Extremity: No bruising contusion or deformity Neurologic: Grossly intact no obvious asymmetries or abnormalities Psych: Confrontational, demanding Initial Vital Signs Initial Vital Signs: Vital Signs Temperature 98.7 F 11/17/20 00:02 Pulse Rate 70 11/17/20 00:02 Respiratory Rate 16 11/17/20 00:02 Blood Pressure 152/68 H 11/17/20 00:02 Pulse Oximetry 96 11/17/20 00:02 Course Vital Signs Vital signs: Vital Signs - 8 hr 11/17/20 00:02 11/17/20 06:40 Temperature 98.7 F 98.2 F Pulse Rate 70 80 Respiratory Rate 16 20 Blood Pressure 152/68 H 146/67 H Pulse Oximetry 96 93 MDM - Extremity (Nontraumatic) Lab Data Labs: Point of Care Testing Glucose POC 267 MDM Narrative Medical decision making narrative: 70-year-old gentleman presents via ambulance transfer complaining of severe right leg pain that has entirely resolved during his emergency room weight. He currently is sound asleep and asymptomatic. Difficult to arouse. Despite his reports that his friends are in the emergency department I believe they are not. I believe 1 of the friends was here with his mother and both his mother and that friend are COVID positive. At this time, I believe there is no way for this gentleman to leave the emergency department of his own volition. Will try waking him in another couple of hours and see if he is able to find ride. No medical emergency at this time. Discharge Plan Departure Patient Disposition: Home Clinical Impression: Acute leg pain Qualifiers: Laterality: right Qualified Code(s): M79.604 - Pain in right leg Instructions: DI for Leg Pain Activity Restrictions/Additional Instructions: I am glad your leg pain was completely resolved by the time of our exam. Please follow up with your primary care doctor Prescriptions: No Action citalopram 20 mg tablet 20 mg PO DAILY Qty: 90 RF: 3 hydralazine 10 mg tablet 10 mg PO TID Qty: 270 RF: 3 pantoprazole 40 mg tablet,delayed release (DR/EC) 40 mg PO DAILY Qty: 90 RF: 3 amlodipine [Norvasc] 10 mg tablet 10 mg PO DAILY Qty: 90 RF: 3 (DME) Diabetic Footwear See Rx Instructions .Route .MEDSUPPLY Qty: 1 RF: 0 atorvastatin 40 mg tablet 40 mg PO BEDTIME Qty: 90 RF: 3 polyethylene glycol 3350 17 gram/dose powder 17 g PO DAILY PRN (Reason: Constipation) Qty: 850 RF: 1 torsemide 20 mg tablet 40 mg PO DAILY PRN (Reason: edema) Qty: 60 RF: 2 carvedilol [Coreg] 12.5 mg tablet 12.5 mg PO BID Qty: 180 RF: 3 doxazosin 4 mg tablet See Rx Instructions .ROUTE .COMPLEX Qty: 90 RF: 3 hydrocodone-acetaminophen 5-325 mg tablet 1 tab PO Q8H PRN (Reason: pain) Qty: 90 RF: 0 allopurinol [Zyloprim] 100 mg tablet 200 mg PO DAILY Qty: 180 RF: 1 duloxetine 60 mg capsule,delayed release(DR/EC) 60 mg PO BID Qty: 180 RF: 1 hydroxyzine HCl 25 mg tablet 25 mg PO BEDTIME PRN (Reason: itching) Qty: 30 RF: 0 lidocaine 5 % adhesive patch,medicated 1 patch TOP DAILY Qty: 15 RF: 11 docusate sodium 100 mg Capsule 100 mg PO PRN PRN (Reason: Constipation) RF: 0 acetaminophen 325 mg Tablet 650 mg PO Q6HR PRN (Reason: Fever/Mild Pain (1-3)) Qty: 100 RF: 0 melatonin 3 mg Tablet 6 mg PO BEDTIME RF: 0 zinc oxide [Boudreauxs Butt Paste] 40 % ointment 1 applic topical 6XD PRN (Reason: skin irritation) Qty: 56 RF: 0 Referrals: Mariano Keller MD [Primary Care Provider] -
--- NOTE | 2020-11-17 06:39 | PC.NURSE ---
Pt is contrite this morning this morning, states he had been drinking last night and I get mouthy.
[2020-11-17 06:40] VITALS: BP 146/67; PULSE 80; RESP 20; TEMP 36.8; O2SAT 93
== END 2020-11-17 07:28 | disposition home or self-care (01) ==
PROVIDERS: Emergency Provider Emergency Medicine; PCP Student in an Organized Health Care Education/Training Program
DX: M79.604 Pain in right leg (principal)
CPT/HCPCS: 82962; 99282

== ENCOUNTER → 2021-01-11 14:57 | Outpatient (CLI) | payer MEDICARE, MEDICAID, SELFPAY ==
[2020-05-05 23:37] VITALS: BMI 40.1
[2021-01-11 15:39] LABS: Hemoglobin A1C% w Est Avg Glu 8.5 % (4.0-6.0)
== END ==
PROVIDERS: PCP Student in an Organized Health Care Education/Training Program; Referring Provider Student in an Organized Health Care Education/Training Program; Visit Provider Student in an Organized Health Care Education/Training Program
DX: E11.9 Type 2 diabetes mellitus without complications (principal)
CPT/HCPCS: 36415; 83036

== ENCOUNTER → 2021-02-24 11:21 | Outpatient (CLI) | payer MEDICARE, MEDICAID, SELFPAY ==
[2020-05-05 23:37] VITALS: BMI 40.1
== END ==
PROVIDERS: PCP Student in an Organized Health Care Education/Training Program; Referring Provider Internal Medicine Medical Oncology; Visit Provider Internal Medicine Medical Oncology
DX: E11.22 Type 2 diabetes mellitus with diabetic chronic kidney disease (principal); I12.9 Hypertensive chronic kidney disease with stage 1 through stage 4 chronic kidney disease, or unspecified chronic kidney disease; N18.4 Chronic kidney disease, stage 4 (severe); D63.1 Anemia in chronic kidney disease

== ENCOUNTER → 2021-03-23 12:35 | Outpatient (CLI) | payer MEDICARE, MEDICAID, SELFPAY ==
[2020-05-05 23:37] VITALS: BMI 40.1
[2021-03-23 12:48] LABS: Add Manual Diff / Slide Review NO; Basophils Absolute Auto 0 /uL (0-100); Basophils Percent Auto 0.5 % (0-2); Eosinophils Absolute Auto 400 /uL (0-450); Eosinophils Percent Auto 4.7 % (2-4); Hematocrit 24.6 % (41-53); Hemoglobin 8.1 g/dL (13.5-17.5); Lymphocytes Absolute Auto 700 /uL (1100-4500); Lymphocytes Percent Auto 7.4 % (25-40); Mean Corpuscular HGB Conc 32.9 % (30-36); Mean Corpuscular Hemoglobin 31.9 PG (26-34); Mean Corpuscular Volume 97.2 fL (80-100); Monocytes Absolute Auto 800 /uL (0-900); Monocytes Percent Auto 8.8 % (3-14); Neutrophils Absolute Auto 7300 /uL (1500-7000); Neutrophils Percent Auto 78.6 % (50-75); Platelet Count 185 X10^3/uL (150-400); Red Blood Cell Count 2.53 X10^6/uL (4.5-5.9); Red Cell Distribution Width 15.5 % (11.6-14.8); White Blood Cell Count 9.3 X10^3/uL (4.5-11.0)
[2021-03-23 13:42] LABS: HEMOLYSIS < 15 (0-50); Iron 53 ug/dL (49-181)
[2021-03-23 13:48] LABS: Ferritin 811 ng/mL (18-464)
[2021-03-23 13:52] LABS: Percent Iron Saturation 24 % (20-50); Total Iron Binding Capacity 223 ug/dL (261-462); Transferrin 160 mg/dL (206-381)
== END ==
PROVIDERS: Internal Medicine Medical Oncology; PCP Student in an Organized Health Care Education/Training Program; Referring Provider Student in an Organized Health Care Education/Training Program; Visit Provider Student in an Organized Health Care Education/Training Program
DX: N18.4 Chronic kidney disease, stage 4 (severe) (principal); D63.1 Anemia in chronic kidney disease
CPT/HCPCS: 36415; 82728; 83540; 83550; 85025

== ENCOUNTER → 2021-03-23 12:45 | Outpatient (CLI) | payer MEDICARE, MEDICAID, SELFPAY ==
[2020-05-05 23:37] VITALS: BMI 40.1
[2021-03-23 13:08] VITALS: BP 114/63; PULSE 65; RESP 20; TEMP 37.2; O2SAT 96
[2021-03-23] MEDS: EPOETIN ALFA-EPBX 40,000 UNIT/ML VIAL 40000 UNIT SUBCUT (14:04)
== END ==
PROVIDERS: PCP Student in an Organized Health Care Education/Training Program; Referring Provider Internal Medicine Medical Oncology; Visit Provider Internal Medicine Medical Oncology
DX: E11.22 Type 2 diabetes mellitus with diabetic chronic kidney disease (principal); I12.9 Hypertensive chronic kidney disease with stage 1 through stage 4 chronic kidney disease, or unspecified chronic kidney disease; N18.4 Chronic kidney disease, stage 4 (severe); D63.1 Anemia in chronic kidney disease
CPT/HCPCS: 36415; 82728; 83540; 83550; 85025; 96372; Q5106

== ENCOUNTER 2021-03-24 09:25 | Inpatient (IN) | payer MEDICARE, MEDICAID, SELFPAY ==
[2020-05-05 23:37] VITALS: BMI 40.1
[2021-03-24] VITALS (42 sets, daily range): BP systolic 105–165; BP diastolic 58–96; PULSE 80–120; RESP 16–51; TEMP 36.5–38.9; O2SAT 91–100; BMI 42.7
--- NOTE | 2021-03-24 09:27 | DI.RAD.S_ITS ---
PROCEDURE: XR CHEST 1V INDICATIONS: fatigue, sepsis TECHNIQUE: One view of the chest was acquired. COMPARISON: [facility], CR, XR CHEST 1V, 05/05/2020, 19:27. FINDINGS: Surgical changes and devices: Cervical fusion hardware. Lower thoracic fusion hardware. Lungs and pleura: Low lung volumes. Crowding of the interstitium and central bronchovascular markings. No new dense consolidations, effusion, or pneumothorax. Mediastinum: Stable moderate cardiomegaly. Normal aortic contour. Carotid central vasculature. Bones and chest wall: No suspicious bony lesions. Overlying soft tissues appear unremarkable. IMPRESSION: 1. Given very low lung volumes, no acute pulmonary parenchymal process. 2. Stable cardiomegaly. Dictated by: Rahel Comer M.D. on 03/24/2021 at 10:22 Approved by: Rahel Comer M.D. on 03/24/2021 at 10:24
--- NOTE | 2021-03-24 09:29 | DI.CT.S_ITS ---
PROCEDURE: CT HEAD/BRAIN WO CON INDICATIONS: trauma, fall with possible head injury TECHNIQUE: Noncontrast 4.5 mm thick angled axial sections acquired from the foramen magnum to the vertex, with coronal and sagittal reformats. For radiation dose reduction, the following was used: automated exposure control, adjustment of mA and/or kV according to patient size. COMPARISON: [facility], CT, HEAD WITHOUT CONTRAST, 03/22/2013, 23:49. [facility], CT, CT HEAD/BRAIN WO CON, 03/31/2018, 13:29. [facility], CT, CT HEAD/BRAIN WO CON, 09/27/2018, 22:11. [facility], CT, CT HEAD/BRAIN WO CON, 11/13/2019, 18:01. FINDINGS: Image quality: This examination is limited by involuntary motion artifact. CSF spaces: Basal cisterns are patent. No extra-axial fluid collections. Stable symmetric prominence of the lateral ventricles can be seen. Brain: No intracranial bleeds or masses. There is cerebral volume loss for age, with resultant ventricular and sulcal prominence. There are periventricular and deep white matter chronic small vessel ischemic changes. There is intracranial internal carotid artery atherosclerosis. Skull and face: Calvarium and visualized facial bones appear intact, without suspicious lesions. Sinuses: No significant paranasal sinus disease is seen. Prior left mastoidectomy. The right mastoid air cells are unremarkable. IMPRESSION: No acute intracranial hemorrhage is seen. No acute intracranial process is seen. Stable abnormal prominence of the lateral ventricles. Please consider normal pressure hydrocephalus. Remote left mastoidectomy. Dictated by: Matthew Ware M.D. on 03/24/2021 at 9:30 Approved by: Matthew Ware M.D. on 03/24/2021 at 9:32
--- NOTE | 2021-03-24 09:29 | DI.CT.S_ITS ---
PROCEDURE: CT CERVICAL SPINE WO CON INDICATIONS: fall with chest and back injuries, possible head injury TECHNIQUE: Noncontrast 3 mm thick sections acquired from the skull base to the T4 level. Sagittal and coronal reformats were then constructed. For radiation dose reduction, the following was used: automated exposure control, adjustment of mA and/or kV according to patient size. COMPARISON: [facility], CT, C-SPINE WITHOUT CONTRAST, 01/24/2017, 11:09. [facility], CT, CT CERVICAL SPINE WO CON, 12/25/2017, 11:26. FINDINGS: Image quality: There are motion artifacts. Bones: No fractures or dislocations. Moderate degenerative disc disease at C3-C4, C4-C5, C5-C6 and C6-C7. Postsurgical changes with laminectomy and posterior fusion. Visualized superior ribs are intact. Soft tissues: Prevertebral soft tissues are normal in thickness. No paravertebral hematomas. No apical pneumothoraces. IMPRESSION: 1. Motion artifacts degrading images. No definitive cervical spine fracture. 2. Degenerative and postsurgical changes. Dictated by: Carol Chun M.D. on 03/24/2021 at 10:35 Approved by: Carol Chun M.D. on 03/24/2021 at 10:41
--- NOTE | 2021-03-24 09:29 | DI.CT.S_ITS ---
PROCEDURE: CT CHEST ABD PEL W CON INDICATIONS: trauma, fall with chest, back, abdomen injuries TECHNIQUE: After the administration of intravenous contrast, 5 mm thick sections acquired from the lung apices to the symphysis. 2.5 mm thick coronal and sagittal reformats were acquired. Additional 7 mm thick coronal maximum intensity projection (MIP) reformats acquired through the lungs. Optional 10-minute delayed imaging may be performed from the kidneys to the bladder. For radiation dose reduction, the following was used: automated exposure control, adjustment of mA and/or kV according to patient size. COMPARISON: None. FINDINGS: Image quality: Image degraded by patient motion artifact. CHEST: Lungs: No pulmonary contusions or lacerations. Lung volumes are diminished. Minimal diffuse ground-glass opacities likely related to hypoventilatory state. Patchy dependent atelectasis bilaterally. No substantial pleural effusion. No pneumothorax seen. Central and peripheral airways appear patent and normal in caliber. Mediastinum: No mediastinal hematomas. Heart size is normal. No pericardial effusion. Coronary atherosclerosis. Thoracic aorta and pulmonary arteries demonstrate normal size and enhancement. No mediastinal or hilar adenopathy. Esophagus is normal in caliber. No hiatal hernia. Chest wall: No acute rib fractures. Age-indeterminate but likely chronic healing rib fracture deformities of the lateral left upper ribs. No overlying soft tissue contusion. Visualized sternum appears intact without fracture. No substernal fluid collections. Bilateral gynecomastia. No axillary or supraclavicular adenopathy. Thyroid gland is unremarkable. Advanced degenerative changes of the bilateral shoulders and acromioclavicular joint. ABDOMEN: Solid organs: Liver is normal in size and enhancement, without lacerations. Possible tiny punctate densities in the dependent portions of the gallbladder. No wall thickening. No pericholecystic fluid. Biliary system is non-dilated. Pancreas enhances normally, without transection. Spleen is normal in size and enhancement, without lacerations. No adrenal hematomas. Both kidneys enhance normally, without hydronephrosis or lacerations. Bilateral ureters are normal in course and caliber. Peritoneum and bowel: No free fluid or air. Unenhanced bowel loops demonstrate normal wall thickness and caliber. Moderate amount of fecal material seen throughout the colon. Moderate amount of fecal material seen in the rectum. Nodes and vessels: No retroperitoneal or mesenteric adenopathy. Scattered atherosclerotic calcifications of the abdominal aorta and iliac vessels without aneurysmal dilatation. The inferior vena cava appears patent. Miscellaneous: There is a ventral hernia in the lower aspect of the anterior abdominal wall containing a small segment of transverse colon. No evidence for wall thickening. No obstruction proximally. No acute inflammatory changes. There is also mild diastasis recti. PELVIS: Genitourinary: Urinary bladder is decompressed by Wells catheter. Miscellaneous: Small fat containing right inguinal hernia without acute inflammation. No pelvic adenopathy. Mild subcutaneous soft tissue stranding of the back which may be related to dependent positioning. This is most pronounced near the lower thoracic spine and upper lumbar spine. No focal fluid collection. Bones: Pelvic ring and hip joints appear intact. No acute vertebral compression fractures. Severe degenerative changes of the bilateral hips. This is more severe on the right. There are postsurgical changes from prior lower thoracic spinal fusion. Postsurgical changes from posterior cervical spinal fusion. IMPRESSION: 1. CT chest, abdomen, and pelvis without evidence for acute traumatic injuries to the solid or hollow organs. No evidence for acute vascular injury. No acute fracture seen. 2. Tiny punctate density in the dependent portion of the gallbladder which may represent gallstones. No CT evidence for acute cholecystitis. 3. Moderate coronary and aortic atherosclerosis. 4. Transverse colon containing ventral abdominal hernia without evidence for acute inflammatory changes or obstruction proximally. 5. Small right fat containing inguinal hernia without acute inflammation. 6. Minimal diffuse ground-glass opacities likely related to hypoventilatory changes given decreased lung volumes and dependent bilateral atelectasis. Findings were discussed with Dr. Renyoso telephonically at 10:46 a.m.. Dictated by: Peter Ramriez M.D. on 03/24/2021 at 10:36 Approved by: Peter Ramirez M.D. on 03/24/2021 at 11:15
--- NOTE | 2021-03-24 09:29 | ED.AMS ---
HPI - Altered Mental Status General Chief Complaint: Trauma Stated Complaint: Pale, tachycardia Time Seen by Provider: 03/24/21 09:27 History of Present Illness HPI narrative: 70-year-old male former smoker with history of chronic kidney disease, chronic pain, hypertension presents by EMS for evaluation of unwitnessed fall last night with injuries including chest, back and shoulders. His caregiver came to check in this morning and found him to be very ill appearing, altered, pale, diaphoretic, distended abdomen, and short of breath. He is a poor historian at baseline and certainly confused and worse than normal. He contributes little to this line of questioning. He denies much in the way of any symptoms other than back pain. He is activated as a modified trauma given his age and suspicion of injuries. Related Data Home Medications Medication Instructions Recorded Confirmed melatonin 3 mg tablet 6 mg PO BEDTIME 09/12/19 02/24/21 docusate sodium 100 mg capsule 100 mg PO PRN PRN 05/06/20 02/24/21 Previous Rx's Medication Instructions Recorded lidocaine 5 % topical patch 1 patch TOP DAILY #15 ea 04/29/20 acetaminophen 325 mg tablet 650 mg PO Q6HR PRN #100 tab 05/08/20 Diabetic Footwear #1 ea 07/17/20 amlodipine 10 mg tablet (Norvasc) 10 mg PO DAILY #90 tab 07/17/20 hydralazine 10 mg tablet 10 mg PO TID #270 tab 07/17/20 pantoprazole 40 mg tablet,delayed 40 mg PO DAILY #90 tab 07/17/20 release atorvastatin 40 mg tablet 40 mg PO BEDTIME #90 tab 07/21/20 polyethylene glycol 3350 17 17 g PO DAILY PRN #850 g 08/07/20 gram/dose oral powder carvedilol 12.5 mg tablet (Coreg) 12.5 mg PO BID #180 tab 09/03/20 doxazosin 4 mg tablet See Rx Instructions .ROUTE 09/03/20 .COMPLEX #90 tab allopurinol 100 mg tablet 200 mg PO DAILY #180 tab 10/26/20 (Zyloprim) duloxetine 60 mg capsule,delayed 60 mg PO BID #180 cap 11/12/20 release nystatin 100,000 unit/gram topical 1 applic TOPICAL TID #30 g 11/26/20 cream hydroxyzine HCl 25 mg tablet 25 mg PO BEDTIME PRN #30 tab 11/27/20 glipizide 2.5 mg tablet, extended 2.5 mg PO DAILY #90 tab 01/13/21 release 24 hr torsemide 20 mg tablet 40 mg PO DAILY #60 tab 02/11/21 citalopram 20 mg tablet 20 mg PO DAILY #90 tab 03/03/21 Home scale #1 ea 03/16/21 hydrocodone 5 mg-acetaminophen 325 1 tab PO Q8H PRN #90 tab 03/18/21 mg tablet Allergies Allergy/AdvReac Type Severity Reaction Status Date / Time latex Allergy Mild IRRITATION Verified 03/24/21 10:26 carisoprodol [From Soma] Allergy Verified 03/24/21 10:26 hydromorphone Allergy Verified 03/24/21 10:26 Sulfa (Sulfonamide AdvReac Mild N&V 1HOUR Verified 03/24/21 10:26 Antibiotics) AFTER RX, THINKS IT IS RELATED Review of Systems Review of Systems ROS Unobtainable: Unobtainable due to mental status/LOC Patient History Medical History Arthritis BPH w urinary obs/LUTS Cellulitis of left leg Chronic kidney disease, stage 4 (severe) Chronic UTI Depression Diabetes Duodenal ulcer History of cervical fracture History of UTI Hyperparathyroidism Osteoarthritis Peripheral vascular disease Renal disease Surgical History H/O cervical spine surgery History of back surgery History of colectomy History of colon surgery History of fusion of cervical spine History of knee replacement Family History Mother Kidney failure Diabetes mellitus Social History marital status: number of children: 4 household members: none occupational status: employed Smoking Status: Former smoker alcohol intake: current caffeine: Yes Smoking Status: Former smoker alcohol intake frequency: 3 or more drinks per day Alcohol type: beer Substance Use Type: does not use Exam Narrative Exam Narrative: GENERAL: [70] year old patient appears older than stated age. Appears quite ill, pale, diaphoretic, altered w/GCS 14 (confused) HEAD: Atraumatic. Normocephalic. EYES: Pupils equal round and reactive. No hyphema. Extraocular motions intact. No scleral icterus. No injection or drainage. ENT: Dry mucous membranes. Nose without bleeding, purulent drainage. Throat without erythema, tonsillar hypertrophy or exudate. Airway patent. NECK: Trachea midline. Non tender, no stepoffs, or crepitance CARDIOVASCULAR: Tachycardic and irregular rhythm without murmurs, gallops, or rubs. Bruising noted overlying sternum, dark purple and red suggesting it is new, tender to palpate RESPIRATORY: Rapid shallow breathing with poor effort, decreased breath sounds in all [place] GASTROINTESTINAL: Abdomen distended, bowel sounds present in all quadrants, large ventral hernia (chronic) patient reports minimal tenderness EXTREMITIES: circumferential erythema of B/L LE c/w likely chronic venous stasis, no crepitance or obvious necrosis. B/L LE foot swelling BACK: Nontender without deformity or crepitance. No flank tenderness. NEURO: Cranial nerves 2-12 grossly intact SKIN: Pale and diaphoretic No rash or erythema of visible areas Initial Vital Signs Initial Vital Signs: Vital Signs Temperature 98.8 F 03/24/21 09:29 Pulse Rate 102 H 03/24/21 09:29 Respiratory Rate 38 H 03/24/21 09:29 Blood Pressure 137/77 03/24/21 09:29 Pulse Oximetry 93 03/24/21 09:29 Course Orders Ordered: ED Orders 03/24/21 09:27 XR chest 1V Stat EKG-12 Lead Stat 03/24/21 09:29 CT cervical spine wo con Stat CT chest abd pel w con Stat CT head/brain wo con Stat 03/24/21 09:35 COVID19 -Nasal swab/Pre-Proc Stat 03/24/21 09:38 Complete Blood Count AUTO DIFF Stat Comprehensive Metabolic Panel Stat D Dimer Stat Lactate (Lactic Acid) Stat NT-proBNP (BNP-Adult 18+) Stat Procalcitonin Stat Troponin & CK Cardiac Panel Stat 03/24/21 09:40 ABG [Arterial Blood Gas] Stat Blood Culture Stat Ethanol (ETOH) Stat Type and Screen Stat 03/24/21 09:52 Urinalysis and Microscopic Stat Urine Drug Screen, Rapid Stat 03/24/21 09:57 Respiratory Panel (Film Array) Stat 03/24/21 12:35 Wound Culture and Gram Stain Stat Acetaminophen (Acetaminophen 325 Mg Tablet) 650 mg PO Q6HR PRN PRN Reason: Fever/Mild Pain (1-3) Enoxaparin Sodium (Enoxaparin 40 Mg/0.4 Ml Syringe) 30 mg SUBCUT DAILY [facility] Meropenem 2 gm/ Sodium (Chloride) 100 mls @ 200 mls/hr IV Q12H [facility] Ondansetron HCl (Ondansetron 4 Mg/2 Ml Inj) 4 mg IV Q8HR PRN PRN Reason: Nausea And Vomiting Discontinued Medications Acetaminophen (Acetaminophen Susp 650 Mg/20.3 Ml Udc) 650 mg PO NOW ONE Stop: 03/24/21 11:29 Last Admin: 03/24/21 11:31 Dose: 650 mg Documented by: KENDRICK Lactated Ringer's (Lactated Ringers) 500 mls @ 1,000 mls/hr IV BOLUS ONE Stop: 03/24/21 10:05 Last Infusion: 03/24/21 11:03 Dose: 0 mls/hr Documented by: Admin: 03/24/21 09:47 Dose: 1,000 mls/hr Documented by: CECILY Ertapenem 0.5 gm/ Sodium (Chloride) 100 mls @ 200 mls/hr IV NOW ONE Stop: 03/24/21 10:06 Last Infusion: 03/24/21 11:17 Dose: 0 mls/hr Documented by: Admin: 03/24/21 10:39 Dose: 200 mls/hr Documented by: KENDRICK Thiamine HCl 200 mg/ Sodium (Chloride) 102 mls @ 408 mls/hr IV NOW ONE Stop: 03/24/21 11:53 Last Infusion: 03/24/21 13:00 Dose: 0 mls/hr Documented by: Admin: 03/24/21 12:44 Dose: 408 mls/hr Documented by: KENDRICK Meropenem 2 gm/ Sodium (Chloride) 100 mls @ 200 mls/hr IV Q8H [facility] Last Admin: 03/24/21 14:28 Dose: Not Given Documented by: KENDRICK Morphine Sulfate (Morphine 4 Mg/Ml Inj) 4 mg IV NOW ONE Stop: 03/24/21 11:38 Last Admin: 03/24/21 11:44 Dose: 4 mg Documented by: KENDRICK Ondansetron HCl (Ondansetron 4 Mg/2 Ml Inj) 4 mg IV NOW ONE Stop: 03/24/21 11:38 Last Admin: 03/24/21 11:44 Dose: 4 mg Documented by: KENDRICK Vancomycin HCl (Vancomycin Per Pharmacy) 1 request MISC NOW ONE Stop: 03/24/21 12:45 Last Admin: 03/24/21 14:28 Dose: Not Given Documented by: KENDRICK Reevaluation(s) Reevaluation #1: There is some improvement in work of breathing after BiPAP is placed. Labs are noted prior to imaging, 500 cc of fluid administered prior to the IV contrast. It is recognized that we are below the cutoff for recommended use of IV contrast, however given his critical illness, recent trauma, fresh bruises on chest, abdomen it is my feeling that he will need advanced imaging despite the known risk of administration of contrast in the setting of kidney disease. Vital Signs Vital signs: Vital Signs - 8 hr 03/24/21 09:29 03/24/21 09:45 03/24/21 09:46 Temperature 98.8 F Pulse Rate 102 H 98 H 97 H Respiratory Rate 38 H 34 H 35 H Blood Pressure 137/77 132/65 Pulse Oximetry 93 99 98 03/24/21 10:00 03/24/21 10:15 03/24/21 10:22 Temperature 100.9 F H 101.8 F H 102.0 F H Pulse Rate 120 H 93 H 96 H Respiratory Rate 40 H 35 H 39 H Blood Pressure 140/80 165/76 H 139/63 Pulse Oximetry 91 100 93 03/24/21 10:30 03/24/21 10:37 03/24/21 10:45 Temperature 102.0 F H 101.8 F H Pulse Rate 96 H 96 H 93 H Respiratory Rate 20 16 31 H Blood Pressure 150/86 H Pulse Oximetry 100 99 97 03/24/21 10:46 03/24/21 11:00 03/24/21 11:01 Temperature 101.8 F H 101.7 F H 101.7 F H Pulse Rate 92 H 96 H 95 H Respiratory Rate 33 H 33 H 38 H Blood Pressure 132/86 145/63 H Pulse Oximetry 96 99 99 03/24/21 11:15 03/24/21 11:30 03/24/21 11:31 Temperature 101.7 F H 101.5 F H 101.5 F H Pulse Rate 95 H 95 H Respiratory Rate Blood Pressure 147/70 H 150/86 H Pulse Oximetry 97 95 03/24/21 11:45 03/24/21 12:00 03/24/21 12:15 Temperature 101.5 F H 101.3 F H 101.1 F H Pulse Rate 94 H 88 86 Respiratory Rate 33 H 30 H 30 H Blood Pressure 141/72 H 120/67 119/60 Pulse Oximetry 96 96 97 03/24/21 12:23 03/24/21 12:30 Temperature 100.9 F H Pulse Rate 95 H 94 H Respiratory Rate 38 H 22 Blood Pressure 145/63 H 127/60 Pulse Oximetry 99 100 MDM - Altered Mental Status Lab Data Result diagrams: 03/24/21 09:38 03/24/21 09:38 Labs: Lab Results 03/24/21 03/24/21 03/24/21 Range/Units 09:35 09:38 09:38 WBC 30.8 H* D (4.5-11.0) X10^3/uL RBC 2.86 L (4.5-5.9) X10^6/uL Hgb 9.1 L (13.5-17.5) g/dL Hct 27.9 L (41-53) % MCV 97.6 (80-100) fL MCH 31.8 (26-34) PG MCHC 32.5 (30-36) % RDW 15.7 H (11.6-14.8) % Plt Count 210 (150-400) X10^3/uL Neut % (Auto) Not Reportable Lymph % (Auto) Not Reportable [place] % (Auto) Not Reportable Eos % (Auto) Not Reportable Baso % (Auto) Not Reportable Lymph # (Auto) Not Reportable [place] # (Auto) Not Reportable Baso # (Auto) Not Reportable Total Counted 100 Seg Neutrophils % 84.0 H (38-70) % Band Neutrophils % 11.0 H (3-7) % Lymphocytes % (Manual) 1.0 L (25-45) % Atypical Lymphs % 1.0 H ( - 0) % Monocytes % (Manual) 3.0 (2-11) % Neutrophils # (Manual) 53496 H (3528-1049) /uL RBC Morphology Not Reportable Anisocytosis 2+ H D-Dimer 1008 H (<230) ng/mL ABG pH (7.35-7.45) ABG pCO2 (35-45) mmHg ABG pO2 (80-100) mmHg ABG HCO3 (22-26) mmol/L ABG Total CO2 (21-31) mmol/L ABG O2 Saturation (95-100) % ABG Base Excess (-2-2) mmol/L FiO2 Sodium (137-145) mmol/L Potassium (3.4-5.1) mmol/L Chloride (98-107) mmol/L Carbon Dioxide (22-32) mmol/L BUN (9-20) mg/dL Creatinine (0.66-1.25) mg/dL Estimated GFR (>60) mL/min BUN/Creatinine Ratio (6-22) Glucose (80-110) mg/dL Lactate (0.7-2.1) mmol/L Calcium (8.4-10.2) mg/dL Total Bilirubin (0.2-1.3) mg/dL AST (17-59) IU/L ALT (<50) IU/L Alkaline Phosphatase (38-126) U/L Total Creatine Kinase (55-170) U/L CK-MB (CK-2) (<2.37) ng/mL CK-MB (CK-2) Rel Index (1.5-5.0) % Troponin I (0.01-0.034) ng/mL NT-Pro-B Natriuret Pep (<125) pg/mL Total Protein (6.3-8.2) g/dL Albumin (3.5-5.0) g/dL Globulin (1.7-4.1) g/dL Albumin/Globulin Ratio (1.0-2.8) Procalcitonin (<0.5) ng/mL Urine Color Urine Appearance Urine pH (4.5-8.0) Ur Specific [place] (1.000-1.035) Urine Protein (Negative) Urine Glucose (UA) (Negative) g/dL Urine Ketones (NEGATIVE) Urine Occult Blood (Negative) Urine Nitrate (Negative) Urine Bilirubin (NEGATIVE) Urine Urobilinogen (0.2) E.U./dL Ur Leukocyte Esterase (NEGATIVE) Urine RBC (0-5/HPF) Urine WBC (0-5/HPF) Ur Squamous Epith Cells (0-5/HPF) Urine Bacteria (None) Ur Culture Indicated? U Opiates 300ng/mL cut (Negative) Ur Oxycodone Screen (Negative) Urine Methadone Screen (Negative) Ur Barbiturates Screen (Negative) U Tricyclic Antidepress (Negative) Ur Phencyclidine Scrn (Negative) Ur Amphetamines Screen (Negative) U Methamphetamines Scrn (Negative) Ur MDMA Scrn (Ecstasy) (Negative) U Benzodiazepines Scrn (Negative) Urine Cocaine Screen (Negative) U Marijuana (THC) Screen (Negative) Ethyl Alcohol ( - 10) mg/dL Chlamy pneumoniae PCR (Not Detect) Adenovirus (PCR) (Not Detect) B. pertussis DNA (PCR) (Not Detecte) B.parapertussis DNA PCR (Not Detecte) Coronavirus OC43 (PCR) (Not Detect) Coronavirus HKU1 (PCR) (Not Detect) Coronavirus 229E (PCR) (Not Detect) SARS-CoV-2 (PCR) Negative (Negative) Coronavirus NL63 (PCR) (Not Detect) Human Metapneumovir PCR (Not Detect) Influenza Type A (PCR) (Not Detect) Influenza Type B (PCR) (Not Detect) M. pneumoniae (PCR) (Not Detect) Parainfluenza 1 (PCR) (Not Detect) Parainfluenza 2 (PCR) (Not Detect) Parainfluenza 3 (PCR) (Not Detect) Parainfluenza 4 (PCR) (Not Detect) RSV (PCR) (Not Detect) Entero/Rhino (PCR) (Not Detect) Blood Type Antibody Screen 03/24/21 03/24/21 03/24/21 Range/Units 09:38 09:38 09:40 WBC (4.5-11.0) X10^3/uL RBC (4.5-5.9) X10^6/uL Hgb (13.5-17.5) g/dL Hct (41-53) % MCV (80-100) fL MCH (26-34) PG MCHC (30-36) % RDW (11.6-14.8) % Plt Count (150-400) X10^3/uL Neut % (Auto) Lymph % (Auto) [place] % (Auto) Eos % (Auto) Baso % (Auto) Lymph # (Auto) [place] # (Auto) Baso # (Auto) Total Counted Seg Neutrophils % (38-70) % Band Neutrophils % (3-7) % Lymphocytes % (Manual) (25-45) % Atypical Lymphs % ( - 0) % Monocytes % (Manual) (2-11) % Neutrophils # (Manual) (4289-0987) /uL RBC Morphology Anisocytosis D-Dimer (<230) ng/mL ABG pH (7.35-7.45) ABG pCO2 (35-45) mmHg ABG pO2 (80-100) mmHg ABG HCO3 (22-26) mmol/L ABG Total CO2 (21-31) mmol/L ABG O2 Saturation (95-100) % ABG Base Excess (-2-2) mmol/L FiO2 Sodium 134 L (137-145) mmol/L Potassium 4.3 (3.4-5.1) mmol/L Chloride 99 (98-107) mmol/L Carbon Dioxide 21 L (22-32) mmol/L BUN 81 H (9-20) mg/dL Creatinine 3.15 H (0.66-1.25) mg/dL Estimated GFR 19.7 L (>60) mL/min BUN/Creatinine Ratio 25.7 H (6-22) Glucose 209 H (80-110) mg/dL Lactate 1.5 (0.7-2.1) mmol/L Calcium 9.2 (8.4-10.2) mg/dL Total Bilirubin 0.8 (0.2-1.3) mg/dL AST 32 (17-59) IU/L ALT 11 (<50) IU/L Alkaline Phosphatase 127 H (38-126) U/L Total Creatine Kinase 255 H (55-170) U/L CK-MB (CK-2) 3.87 H (<2.37) ng/mL CK-MB (CK-2) Rel Index 1.5 (1.5-5.0) % Troponin I 0.094 H (0.01-0.034) ng/mL NT-Pro-B Natriuret Pep 41299 H (<125) pg/mL Total Protein 8.6 H (6.3-8.2) g/dL Albumin 4.4 (3.5-5.0) g/dL Globulin 4.2 H (1.7-4.1) g/dL Albumin/Globulin Ratio 1.0 (1.0-2.8) Procalcitonin 20.5 H (<0.5) ng/mL Urine Color Urine Appearance Urine pH (4.5-8.0) Ur Specific [place] (1.000-1.035) Urine Protein (Negative) Urine Glucose (UA) (Negative) g/dL Urine Ketones (NEGATIVE) Urine Occult Blood (Negative) Urine Nitrate (Negative) Urine Bilirubin (NEGATIVE) Urine Urobilinogen (0.2) E.U./dL Ur Leukocyte Esterase (NEGATIVE) Urine RBC (0-5/HPF) Urine WBC (0-5/HPF) Ur Squamous Epith Cells (0-5/HPF) Urine Bacteria (None) Ur Culture Indicated? U Opiates 300ng/mL cut (Negative) Ur Oxycodone Screen (Negative) Urine Methadone Screen (Negative) Ur Barbiturates Screen (Negative) U Tricyclic Antidepress (Negative) Ur Phencyclidine Scrn (Negative) Ur Amphetamines Screen (Negative) U Methamphetamines Scrn (Negative) Ur MDMA Scrn (Ecstasy) (Negative) U Benzodiazepines Scrn (Negative) Urine Cocaine Screen (Negative) U Marijuana (THC) Screen (Negative) Ethyl Alcohol ( - 10) mg/dL Chlamy pneumoniae PCR (Not Detect) Adenovirus (PCR) (Not Detect) B. pertussis DNA (PCR) (Not Detecte) B.parapertussis DNA PCR (Not Detecte) Coronavirus OC43 (PCR) (Not Detect) Coronavirus HKU1 (PCR) (Not Detect) Coronavirus 229E (PCR) (Not Detect) SARS-CoV-2 (PCR) (Negative) Coronavirus NL63 (PCR) (Not Detect) Human Metapneumovir PCR (Not Detect) Influenza Type A (PCR) (Not Detect) Influenza Type B (PCR) (Not Detect) M. pneumoniae (PCR) (Not Detect) Parainfluenza 1 (PCR) (Not Detect) Parainfluenza 2 (PCR) (Not Detect) Parainfluenza 3 (PCR) (Not Detect) Parainfluenza 4 (PCR) (Not Detect) RSV (PCR) (Not Detect) Entero/Rhino (PCR) (Not Detect) Blood Type O Positive Antibody Screen Negative 03/24/21 03/24/21 03/24/21 Range/Units 09:40 09:40 09:52 WBC (4.5-11.0) X10^3/uL RBC (4.5-5.9) X10^6/uL Hgb (13.5-17.5) g/dL Hct (41-53) % MCV (80-100) fL MCH (26-34) PG MCHC (30-36) % RDW (11.6-14.8) % Plt Count (150-400) X10^3/uL Neut % (Auto) Lymph % (Auto) [place] % (Auto) Eos % (Auto) Baso % (Auto) Lymph # (Auto) [place] # (Auto) Baso # (Auto) Total Counted Seg Neutrophils % (38-70) % Band Neutrophils % (3-7) % Lymphocytes % (Manual) (25-45) % Atypical Lymphs % ( - 0) % Monocytes % (Manual) (2-11) % Neutrophils # (Manual) (5059-6182) /uL RBC Morphology Anisocytosis D-Dimer (<230) ng/mL ABG pH 7.34 L (7.35-7.45) ABG pCO2 36.8 (35-45) mmHg ABG pO2 63 L (80-100) mmHg ABG HCO3 20 L (22-26) mmol/L ABG Total CO2 21 (21-31) mmol/L ABG O2 Saturation 90 L (95-100) % ABG Base Excess -6.0 L (-2-2) mmol/L FiO2 21 Sodium (137-145) mmol/L Potassium (3.4-5.1) mmol/L Chloride (98-107) mmol/L Carbon Dioxide (22-32) mmol/L BUN (9-20) mg/dL Creatinine (0.66-1.25) mg/dL Estimated GFR (>60) mL/min BUN/Creatinine Ratio (6-22) Glucose (80-110) mg/dL Lactate (0.7-2.1) mmol/L Calcium (8.4-10.2) mg/dL Total Bilirubin (0.2-1.3) mg/dL AST (17-59) IU/L ALT (<50) IU/L Alkaline Phosphatase (38-126) U/L Total Creatine Kinase (55-170) U/L CK-MB (CK-2) (<2.37) ng/mL CK-MB (CK-2) Rel Index (1.5-5.0) % Troponin I (0.01-0.034) ng/mL NT-Pro-B Natriuret Pep (<125) pg/mL Total Protein (6.3-8.2) g/dL Albumin (3.5-5.0) g/dL Globulin (1.7-4.1) g/dL Albumin/Globulin Ratio (1.0-2.8) Procalcitonin (<0.5) ng/mL Urine Color Yellow Urine Appearance Clear Urine pH 5.0 (4.5-8.0) Ur Specific [place] 1.015 (1.000-1.035) Urine Protein 1+ H (Negative) Urine Glucose (UA) Negative (Negative) g/dL Urine Ketones Negative (NEGATIVE) Urine Occult Blood Trace-lysed (Negative) Urine Nitrate Negative (Negative) Urine Bilirubin Negative (NEGATIVE) Urine Urobilinogen 0.2 (0.2) E.U./dL Ur Leukocyte Esterase Negative (NEGATIVE) Urine RBC None seen (0-5/HPF) Urine WBC 1-5/hpf (0-5/HPF) Ur Squamous Epith Cells 1-5 /hpf (0-5/HPF) Urine Bacteria Moderate (10-30) H (None) Ur Culture Indicated? Cult not indicated U Opiates 300ng/mL cut (Negative) Ur Oxycodone Screen (Negative) Urine Methadone Screen (Negative) Ur Barbiturates Screen (Negative) U Tricyclic Antidepress (Negative) Ur Phencyclidine Scrn (Negative) Ur Amphetamines Screen (Negative) U Methamphetamines Scrn (Negative) Ur MDMA Scrn (Ecstasy) (Negative) U Benzodiazepines Scrn (Negative) Urine Cocaine Screen (Negative) U Marijuana (THC) Screen (Negative) Ethyl Alcohol < 10 ( - 10) mg/dL Chlamy pneumoniae PCR (Not Detect) Adenovirus (PCR) (Not Detect) B. pertussis DNA (PCR) (Not Detecte) B.parapertussis DNA PCR (Not Detecte) Coronavirus OC43 (PCR) (Not Detect) Coronavirus HKU1 (PCR) (Not Detect) Coronavirus 229E (PCR) (Not Detect) SARS-CoV-2 (PCR) (Negative) Coronavirus NL63 (PCR) (Not Detect) Human Metapneumovir PCR (Not Detect) Influenza Type A (PCR) (Not Detect) Influenza Type B (PCR) (Not Detect) M. pneumoniae (PCR) (Not Detect) Parainfluenza 1 (PCR) (Not Detect) Parainfluenza 2 (PCR) (Not Detect) Parainfluenza 3 (PCR) (Not Detect) Parainfluenza 4 (PCR) (Not Detect) RSV (PCR) (Not Detect) Entero/Rhino (PCR) (Not Detect) Blood Type Antibody Screen 03/24/21 03/24/21 Range/Units 09:52 09:57 WBC (4.5-11.0) X10^3/uL RBC (4.5-5.9) X10^6/uL Hgb (13.5-17.5) g/dL Hct (41-53) % MCV (80-100) fL MCH (26-34) PG MCHC (30-36) % RDW (11.6-14.8) % Plt Count (150-400) X10^3/uL Neut % (Auto) Lymph % (Auto) [place] % (Auto) Eos % (Auto) Baso % (Auto) Lymph # (Auto) [place] # (Auto) Baso # (Auto) Total Counted Seg Neutrophils % (38-70) % Band Neutrophils % (3-7) % Lymphocytes % (Manual) (25-45) % Atypical Lymphs % ( - 0) % Monocytes % (Manual) (2-11) % Neutrophils # (Manual) (2722-8165) /uL RBC Morphology Anisocytosis D-Dimer (<230) ng/mL ABG pH (7.35-7.45) ABG pCO2 (35-45) mmHg ABG pO2 (80-100) mmHg ABG HCO3 (22-26) mmol/L ABG Total CO2 (21-31) mmol/L ABG O2 Saturation (95-100) % ABG Base Excess (-2-2) mmol/L FiO2 Sodium (137-145) mmol/L Potassium (3.4-5.1) mmol/L Chloride (98-107) mmol/L Carbon Dioxide (22-32) mmol/L BUN (9-20) mg/dL Creatinine (0.66-1.25) mg/dL Estimated GFR (>60) mL/min BUN/Creatinine Ratio (6-22) Glucose (80-110) mg/dL Lactate (0.7-2.1) mmol/L Calcium (8.4-10.2) mg/dL Total Bilirubin (0.2-1.3) mg/dL AST (17-59) IU/L ALT (<50) IU/L Alkaline Phosphatase (38-126) U/L Total Creatine Kinase (55-170) U/L CK-MB (CK-2) (<2.37) ng/mL CK-MB (CK-2) Rel Index (1.5-5.0) % Troponin I (0.01-0.034) ng/mL NT-Pro-B Natriuret Pep (<125) pg/mL Total Protein (6.3-8.2) g/dL Albumin (3.5-5.0) g/dL Globulin (1.7-4.1) g/dL Albumin/Globulin Ratio (1.0-2.8) Procalcitonin (<0.5) ng/mL Urine Color Urine Appearance Urine pH (4.5-8.0) Ur Specific [place] (1.000-1.035) Urine Protein (Negative) Urine Glucose (UA) (Negative) g/dL Urine Ketones (NEGATIVE) Urine Occult Blood (Negative) Urine Nitrate (Negative) Urine Bilirubin (NEGATIVE) Urine Urobilinogen (0.2) E.U./dL Ur Leukocyte Esterase (NEGATIVE) Urine RBC (0-5/HPF) Urine WBC (0-5/HPF) Ur Squamous Epith Cells (0-5/HPF) Urine Bacteria (None) Ur Culture Indicated? U Opiates 300ng/mL cut Positive H (Negative) Ur Oxycodone Screen Negative (Negative) Urine Methadone Screen Negative (Negative) Ur Barbiturates Screen Negative (Negative) U Tricyclic Antidepress Negative (Negative) Ur Phencyclidine Scrn Negative (Negative) Ur Amphetamines Screen Negative (Negative) U Methamphetamines Scrn Negative (Negative) Ur MDMA Scrn (Ecstasy) Negative (Negative) U Benzodiazepines Scrn Negative (Negative) Urine Cocaine Screen Negative (Negative) U Marijuana (THC) Screen Negative (Negative) Ethyl Alcohol ( - 10) mg/dL Chlamy pneumoniae PCR Not detected (Not Detect) Adenovirus (PCR) Not detected (Not Detect) B. pertussis DNA (PCR) Not detected (Not Detecte) B.parapertussis DNA PCR Not detected (Not Detecte) Coronavirus OC43 (PCR) Not detected (Not Detect) Coronavirus HKU1 (PCR) Not detected (Not Detect) Coronavirus 229E (PCR) Not detected (Not Detect) SARS-CoV-2 (PCR) Not detected (Negative) Coronavirus NL63 (PCR) Not detected (Not Detect) Human Metapneumovir PCR Not detected (Not Detect) Influenza Type A (PCR) Not detected (Not Detect) Influenza Type B (PCR) Not detected (Not Detect) M. pneumoniae (PCR) Not detected (Not Detect) Parainfluenza 1 (PCR) Not detected (Not Detect) Parainfluenza 2 (PCR) Not detected (Not Detect) Parainfluenza 3 (PCR) Not detected (Not Detect) Parainfluenza 4 (PCR) Not detected (Not Detect) RSV (PCR) Not detected (Not Detect) Entero/Rhino (PCR) Not detected (Not Detect) Blood Type Antibody Screen Imaging Data Chest x-ray: Radiologist's Impression: Cristóbal Tubbs??70??M??1950 ? Allergy/Adv: latex, carisoprodol, hydromorphone, Sulfa (Sulfonamide Antibiotics) (More??) Close Head CT (Signed) Matthew Ware - 03/24/21 Chest/Abdomen/Pelvis CT 03/24/[address] (Signed) Ann-Marie Chun - 03/24/21 Chest X-Ray (Signed) Rahel Comer - 03/24/21 Chest/Abdomen X-ray (Signed) Ayanna Lux - 08/05/20 Chest X-Ray (Signed) Stalin Champion - 05/05/20 Chest X-Ray (Signed) Ervin Love - 05/04/20 Chest X-Ray (Signed) Varun Mcwilliams - 05/03/20 Vascular Ultrasound (Signed) Matthew Ware - 02/28/20 Chest X-Ray (Signed) Peter Ramirez - 02/28/20 Telemetry Strips 02/28/20 Echocardiogram Ultrasound (Signed) Barrie Chauhan - 02/19/20 Renal Ultrasound (Signed) Ann-Marie Chun - 01/28/20 Abdomen X-Ray (Signed) Matthew Ware - 01/26/[address] (Signed) Keller,Edgard - 01/22/20 Shoulder X-Ray (Signed) Ann-Marie Chun - 01/09/20 Shoulder X-Ray (Signed) Ann-Marie Chun - 01/09/20 Vascular Ultrasound (Signed) Matthew Ware - 11/15/19 Telemetry Strips 11/13/19 Telemetry Strips 11/13/[address] (Signed) AshleyPeter - 11/13/19 Chest X-Ray (Signed) Rahel Comer - 11/13/19 Tibia/Fibula X-Ray (Signed) Rahel Comer - 09/10/19 Tibia/Fibula X-Ray (Signed) Rahel Comer - 09/10/19 PICC Line Insertion (Signed) Tony Carrillo - 09/09/19 Chest X-Ray (Signed) Quinn Alexander - 09/07/19 Chest X-Ray (Signed) Tony Carrillo - 08/07/19 Telemetry Strips 03/10/19 Telemetry Strips 03/10/19 Abdomen/Pelvis CT (Signed) Stalin Champion - 03/10/19 Launch?[place] [address] XRay Report Signed Patient: Cristóbal Tubbs MR#: [id number] : 1950 Acct:[id number] Age/Sex: 70 / M Date of Service: 03/24/21 Loc: ED Accession Number: [id number] ?? Procedure: XR chest 1V Ordering Provider: Yonny Reynoso D.O. PROCEDURE:? XR CHEST 1V ? INDICATIONS:? fatigue, sepsis ? TECHNIQUE:? One view of the chest was acquired.? ? COMPARISON:? [facility], , XR CHEST 1V, 05/05/2020, 19:27. ? FINDINGS:? ? Surgical changes and devices:? Cervical fusion hardware.? Lower thoracic fusion hardware. ? Lungs and pleura:? Low lung volumes.? Crowding of the interstitium and central bronchovascular markings.? No new dense consolidations, effusion, or pneumothorax. ? Mediastinum:? Stable moderate cardiomegaly.? Normal aortic contour.? Carotid central vasculature. ? Bones and chest wall:? No suspicious bony lesions.? Overlying soft tissues appear unremarkable.? ? IMPRESSION:? 1. Given very low lung volumes, no acute pulmonary parenchymal process. 2. Stable cardiomegaly.? ? ? Dictated by: Rahel Comer M.D. on 03/24/2021 at 10:22 ? ? Approved by: Rahel Comer M.D. on 03/24/2021 at 10:24 ? CT scan - head: Radiologist's Impression: [address] [address] [address] Scan Report Signed Patient: Cristóbal Tubbs MR#: [id number] : 1950 Acct:[id number] Age/Sex: 70 / M Date of Service: 03/24/21 Loc: ED Accession Number: [id number] ?? Procedure: CT head/brain wo con Ordering Provider: Yonny Reynoso D.O. PROCEDURE:? CT HEAD/BRAIN WO CON ? INDICATIONS:? trauma, fall with possible head injury ? TECHNIQUE:? Noncontrast 4.5 mm thick angled axial sections acquired from the foramen magnum to the vertex, with coronal and sagittal reformats.? For radiation dose reduction, the following was used:? automated exposure control, adjustment of mA and/or kV according to patient size.? ? COMPARISON:? [facility], CT, HEAD WITHOUT CONTRAST, 03/22/2013, 23:49.? [facility], CT, CT HEAD/BRAIN WO CON, 03/31/2018, 13:29.? [facility], CT, CT HEAD/BRAIN WO CON, 09/27/2018, 22:11.? [facility], CT, CT HEAD/BRAIN WO CON, 11/13/2019, 18:01. ? FINDINGS:? Image quality:? This examination is limited by involuntary motion artifact.? ? CSF spaces:? Basal cisterns are patent.? No extra-axial fluid collections.? Stable symmetric prominence of the lateral ventricles can be seen. ? Brain:? No intracranial bleeds or masses.? There is cerebral volume loss for age, with resultant ventricular and sulcal prominence.? There are periventricular and deep white matter chronic small vessel ischemic changes.? There is intracranial internal carotid artery atherosclerosis.? ? Skull and face:? Calvarium and visualized facial bones appear intact, without suspicious lesions.? ? Sinuses:? No significant paranasal sinus disease is seen.? Prior left mastoidectomy.? The right mastoid air cells are unremarkable. ? ? IMPRESSION:? No acute intracranial hemorrhage is seen.? ? No acute intracranial process is seen.? ? Stable abnormal prominence of the lateral ventricles.? Please consider normal pressure hydrocephalus. ? Remote left mastoidectomy. ? ? Dictated by: Matthew Ware M.D. on 03/24/2021 at 9:30 ? ? Approved by: Matthew Ware M.D. on 03/24/2021 at 9:32 ? CT - cervical spine: Radiologist's Impression: Cristóbal Tubbs??70??M??1950 ? Allergy/Adv: latex, carisoprodol, hydromorphone, Sulfa (Sulfonamide Antibiotics) (More??) Close Head CT (Signed) Matthew Ware - 03/24/21 Chest/Abdomen/Pelvis CT 03/24/[address] (Signed) Ann-Marie Chun - 03/24/21 Chest X-Ray (Signed) Rahel Comer - 03/24/21 Chest/Abdomen X-ray (Signed) Ayanna Lux - 08/05/20 Chest X-Ray (Signed) Stalin Champion - 05/05/20 Chest X-Ray (Signed) Ervin Love - 05/04/20 Chest X-Ray (Signed) Varun Mcwilliams - 05/03/20 Vascular Ultrasound (Signed) Matthew Ware - 02/28/20 Chest X-Ray (Signed) Peter Ramirez - 02/28/20 Telemetry Strips 02/28/20 Echocardiogram Ultrasound (Signed) Barrie Chauhan - 02/19/20 Renal Ultrasound (Signed) Ann-Marie Chun - 01/28/20 Abdomen X-Ray (Signed) Matthew Ware - 01/26/[address] (Signed) Edgard Keller - 01/22/20 Shoulder X-Ray (Signed) Ann-Marie Chun - 01/09/20 Shoulder X-Ray (Signed) Ann-Marie Chun - 01/09/20 Vascular Ultrasound (Signed) Matthew Ware - 11/15/19 Telemetry Strips 11/13/19 Telemetry Strips 11/13/[address] (Signed) RamirezPeter - 11/13/19 Chest X-Ray (Signed) Rahel Comer - 11/13/19 Tibia/Fibula X-Ray (Signed) Rahel Comer - 09/10/19 Tibia/Fibula X-Ray (Signed) Rahel Comer - 09/10/19 PICC Line Insertion (Signed) Tony Carrillo - 09/09/19 Chest X-Ray (Signed) BenjaminMacon - 09/07/19 Chest X-Ray (Signed) Tony Carrillo - 08/07/19 Telemetry Strips 03/10/19 Telemetry Strips 03/10/19 Abdomen/Pelvis CT (Signed) Stalin Champion - 03/10/19 Launch?[place] [address] CT Scan Report Signed Patient: Cristóbal Tubbs MR#: [id number] : 1950 Acct:[id number] Age/Sex: 70 / M Date of Service: 03/24/21 Loc: ED Accession Number: [id number] ?? Procedure: CT cervical spine wo con Ordering Provider: Yonny Reynoso D.O. PROCEDURE:? CT CERVICAL SPINE WO CON ? INDICATIONS:? fall with chest and back injuries, possible head injury ? TECHNIQUE:? Noncontrast 3 mm thick sections acquired from the skull base to the T4 level.? Sagittal and coronal reformats were then constructed.? For radiation dose reduction, the following was used:? automated exposure control, adjustment of mA and/or kV according to patient size.? ? COMPARISON:? [facility], CT, C-SPINE WITHOUT CONTRAST, 01/24/2017, 11:09.? [facility], CT, CT CERVICAL SPINE WO CON, 12/25/2017, 11:26. ? FINDINGS:? Image quality:? There are motion artifacts.? ? Bones:? No fractures or dislocations.? Moderate degenerative disc disease at C3-C4, C4-C5, C5-C6 and C6-C7.? Postsurgical changes with laminectomy and posterior fusion.? Visualized superior ribs are intact.? ? Soft tissues:? Prevertebral soft tissues are normal in thickness.? No paravertebral hematomas.? No apical pneumothoraces.? ? ? IMPRESSION:? ? 1. Motion artifacts degrading images.? No definitive cervical spine fracture. 2. Degenerative and postsurgical changes.? Dictated by: Carol Chun M.D. on 03/24/2021 at 10:35 ? ? Approved by: Carol Chun M.D. on 03/24/2021 at 10:41 ? Discharge Plan Departure Patient Disposition: Admitted As Inpatient Clinical Impression: Acute hypoxemic respiratory failure, Sepsis, Acute metabolic encephalopathy, Chest wall contusion Admit Date/Time: 03/24/21 12:43 Admit Provider: Mark Gonzales
[2021-03-24 09:43] LABS: Hematocrit 27.9 % (41-53); Hemoglobin 9.1 g/dL (13.5-17.5); Mean Corpuscular HGB Conc 32.5 % (30-36); Mean Corpuscular Hemoglobin 31.8 PG (26-34); Mean Corpuscular Volume 97.6 fL (80-100); Red Blood Cell Count 2.86 X10^6/uL (4.5-5.9); Red Cell Distribution Width 15.7 % (11.6-14.8)
[2021-03-24 09:44] LABS: Add Manual Diff / Slide Review YES; Platelet Count 210 X10^3/uL (150-400)
[2021-03-24 09:47] LABS: White Blood Cell Count 30.8 X10^3/uL (4.5-11.0)
[2021-03-24] MEDS: LACTATED RINGERS 500 ML 1000 ML IV (09:47)
--- NOTE | 2021-03-24 09:48 | PC.NURSE ---
unable to scan LR, spoke with pharm and we don't carry 500ml/bag.
[2021-03-24 09:49] LABS: Alanine Aminotransferase 11 IU/L (<50); Albumin 4.4 g/dL (3.5-5.0); Alkaline Phosphatase 127 U/L (38-126); Aspartate Aminotransferase 32 IU/L (17-59); BUN Creatinine Ratio 25.7 (6-22); Bilirubin Total 0.8 mg/dL (0.2-1.3); Blood Urea Nitrogen 81 mg/dL (9-20); Calcium 9.2 mg/dL (8.4-10.2); Carbon Dioxide 21 mmol/L (22-32); Chloride 99 mmol/L (98-107); Creatine Kinase 255 U/L (55-170); D Dimer 1008 ng/mL (<230); Estimated Glomerular Filt Rate 19.7 mL/min (>60); Globulin 4.2 g/dL (1.7-4.1); Glucose 209 mg/dL (80-110); HEMOLYSIS 17 (0-50); Lactate (Lactic Acid) 1.5 mmol/L (0.7-2.1); Potassium 4.3 mmol/L (3.4-5.1); Sodium 134 mmol/L (137-145); Total Protein 8.6 g/dL (6.3-8.2)
[2021-03-24 09:56] LABS: COVID19 -Nasal RAPID Negative (Negative)
[2021-03-24 10:01] LABS: NT-proBNP (BNP-Adult 18+) 10100 pg/mL (<125); Troponin I 0.094 ng/mL (0.01-0.034)
[2021-03-24 10:04] LABS: CKMB % Relative Index 1.5 % (1.5-5.0); Creatine Kinase MB 3.87 ng/mL (<2.37)
[2021-03-24 10:05] LABS: Procalcitonin 20.5 ng/mL (<0.5)
[2021-03-24 10:18] LABS: Appearance Urine UA CLEAR; Bilirubin Urine UA NEGATIVE (NEGATIVE); Color Urine UA YELLOW; Glucose Urine UA NEGATIVE (Negative); Ketones Urine UA NEGATIVE (NEGATIVE); Leukocyte Esterase Urine UA NEGATIVE (NEGATIVE); Nitrite Urine UA NEGATIVE (Negative); Occult Blood Urine UA TRACE-LYSED (Negative); Protein Urine UA 1+ (Negative); Specific Gravity Urine UA 1.015 (1.000-1.035); Urobilinogen Urine UA 0.2 E.U./dL (0.2)
[2021-03-24 10:18] LABS: Anisocytosis 2+; Neutrophils Absolute Manual 29260 /uL (3000-5900); Total Cells Counted 100
[2021-03-24 10:35] LABS: Bacteria Urine Moderate (10-30); Culture Indicated Urine Cult Not Indicated; RBC Urine None Seen (0-5/HPF); Squamous Epithelial Cell Urine 1-5 /HPF (0-5/HPF); WBC Urine 1-5/HPF (0-5/HPF)
[2021-03-24] MEDS: ERTAPENEM 0.5 GM in SODIUM CHLORIDE 0.9% 100 ML 200 ML IV (10:39)
[2021-03-24 11:04] LABS: Adenovirus Not Detected (Not Detect); B. parapertussis Not Detected (Not Detecte); Bordetella pertussis Not Detected (Not Detecte); Chlamydophila pneumoniae Not Detected (Not Detect); Coronavirus 229E Not Detected (Not Detect); Coronavirus HKU1 Not Detected (Not Detect); Coronavirus NL 63 Not Detected (Not Detect); Coronavirus OC43 Not Detected (Not Detect); Human Metapneumovirus Not Detected (Not Detect); Human Rhinovirus/Enterovirus Not Detected (Not Detect); Influenza A Not Detected (Not Detect); Influenza B Not Detected (Not Detect); Mycoplasma pneumoniae Not Detected (Not Detect); Parainfluenza Virus 1 Not Detected (Not Detect); Parainfluenza Virus 2 Not Detected (Not Detect); Parainfluenza Virus 3 Not Detected (Not Detect); Parainfluenza Virus 4 Not Detected (Not Detect); Respiratory Syncytial Virus Not Detected (Not Detect); SARS- CoV-2 Not Detected (Not Detecte)
[2021-03-24] MEDS: ACETAMINOPHEN SUSP 650 MG/20.3 ML UDC PO (11:31)
[2021-03-24] MEDS: MORPHINE 4 MG/ML INJ IV (11:44)
[2021-03-24] MEDS: ONDANSETRON 4 MG/2 ML INJ IV (11:44)
[2021-03-24 12:08] LABS: Fractionated Inspired Oxygen 21; HCO3 ABG 20 mmol/L (22-26); Oxygen Saturation ABG 90 % (95-100); PCO2 ABG 36.8 mmHg (35-45); PO2 ABG 63 mmHg (80-100); TCO2 ABG 21 mmol/L (21-31); pH ABG 7.34 (7.35-7.45)
[2021-03-24 12:10] LABS: Ethanol (ETOH) < 10 mg/dL
[2021-03-24 12:37] LABS: Ur Creatinine Normal (Normal); Ur Specific Gravity Normal (Normal); Urine Amphetamines Negative (Negative); Urine Cocaine Negative (Negative); Urine Methamphetamines Negative (Negative); Urine Tetrahydrocannabinol Negative (Negative); Urine pH Normal (Normal)
[2021-03-24 12:38] LABS: UR Morphine/Opiate cutoff 300 Positive (Negative); Urine Barbiturates Negative (Negative); Urine Benzodiazepines Negative (Negative); Urine MDMA Negative (Negative); Urine Methadone Negative (Negative); Urine Oxycodone Negative (Negative); Urine Phencyclidine Negative (Negative); Urine Tricyclic Antidepressant Negative (Negative)
[2021-03-24] MEDS: THIAMINE 200 MG in SODIUM CHLORIDE 0.9% 100 ML 408 ML IV (12:44)
--- NOTE | 2021-03-24 12:46 | DI.CT.S_ITS ---
PROCEDURE: CT LE RT WO CON INDICATIONS: cellulitis eval for abscess, gas TECHNIQUE: Noncontrast 3-mm axial sections acquired from the distal femur through the foot, with coronal and sagittal reformats.. COMPARISON: None. FINDINGS: Image quality: Beam hardening artifact from the patient's knee arthroplasty. Bones: Knee arthroplasty without evidence of hardware compromise. Diffuse osteopenia. No acute, displaced fracture. Soft tissues: Vascular calcifications. No subcutaneous emphysematous change. No joint effusion. Reticulated and confluent soft tissue density in the subcutaneous fat, compatible with edema/cellulitis. No fluid collection is appreciated to suggest an abscess. Fatty atrophy of the posterior compartment calf musculature. IMPRESSION: Lower extremity edema with possible cellulitis. Dictated by: Piyush Minor M.D. on 03/24/2021 at 13:50 Approved by: Piyush Minor M.D. on 03/24/2021 at 13:53
--- NOTE | 2021-03-24 12:46 | DI.CT.S_ITS ---
PROCEDURE: CT LE LT W CON INDICATIONS: cellulitis eval for abscess. gas TECHNIQUE: Noncontrast 3-mm axial sections acquired from the distal femur through the foot, with coronal and sagittal reformats. COMPARISON: None. FINDINGS: Image quality: Some images are degraded by motion artifact. Bones: No acute, displaced fracture or dislocation. Diffuse osteopenia. 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 A 1.5 x 2.3 cm intra-articular bodies seen posterior to the proximal fibula. Soft tissues: Diffuse vascular calcifications. No subcutaneous emphysematous change. Reticulated and confluent soft tissue density in the subcutaneous fat, compatible with edema. New line fatty atrophy of the posterior compartment calf musculature. IMPRESSION: Diffuse soft tissue edema, concerning for cellulitis. Dictated by: Piyush Minor M.D. on 03/24/2021 at 13:55 Approved by: Piyush Minor M.D. on 03/24/2021 at 13:59
[2021-03-24 14:37] LABS: Erythrocyte Sedimentation Rate > 140 MM/HR (0-15)
[2021-03-24 14:49] LABS: C-Reactive Protein Quant 21.5 mg/dL (<1.0)
[2021-03-24 16:04] LABS: Troponin I 0.098 ng/mL (0.01-0.034)
[2021-03-24] MEDS: VANCOMYCIN 2,500 MG in SODIUM CHLORIDE 0.9% 500 ML 200 MG IV (17:00)
[2021-03-24] MEDS: OXYCODONE IR 5 MG TABLET PO (18:18)
[2021-03-24] MEDS: ACETAMINOPHEN 325 MG TABLET 650 MG PO (18:19)
[2021-03-24] MEDS: LORazepam 2 MG/ML INJ IV ×2 (18:35→19:52)
--- NOTE | 2021-03-24 19:39 | P.HP_ITS ---
History of Present Illness History of Present Illness Date Patient Seen: 03/24/21 Time Patient Seen: 16:00 Chief complaint: Pale, tachycardia Narrative: Mr. Tubbs is a 70M with PMH former smoker, CKD stage 4, alcohol abuse, morbid obesity who presents after a fall. He has chronic leg wounds. He had caregiver who came to check on him and found him on the floor and very ill appearing. He is unable to state what happened. He drinks significantly. He has had pain in his legs In the ED workup was done vitals initially notalbe for respiratory rate in the 30s, sats in the 80s, he was placed on BIPAP and then heated high flow. Labs notable for WBC 30.8, hgb 9.1, creatinine 3.15. Lactate 1.5. trop 0.094. BNP 10,100. Procal 20.5. UA did not show any clear infection. Chest xray showed no acute infection. CT head showed no bleeding. CT c-spine negative. CT torso shows no acute process to explain presentation. He was ordered for vancomycin and meropenem. He was not able to get full IV sepsis fluid bolus given his respiratory status and concern for being volume overload. CT legs showed no abscess. He was admitted for further treatment. Patient History Medical History Arthritis BPH w urinary obs/LUTS Cellulitis of left leg Chronic kidney disease, stage 4 (severe) Chronic UTI Depression Diabetes Duodenal ulcer History of cervical fracture History of UTI Hyperparathyroidism Osteoarthritis Peripheral vascular disease Renal disease Surgical History H/O cervical spine surgery History of back surgery History of colectomy History of colon surgery History of fusion of cervical spine History of knee replacement Family & Social History Family History Mother Kidney failure Diabetes mellitus Social History: household members none Prior Living Arrangements Apartment/Condo Safety & Behavioral: Feels Safe in Current Unwilling to Answer Environment Been Physically Hurt or Unwilling to Answer Threatened By a Person Suicidal Ideation Description None Suicide Plan Description No Plan Tobacco & Substance use: Tobacco type cigarettes Smoking Status Former smoker alcohol intake current alcohol intake frequency 3 or more drinks per day Substance Use Type does not use,opiates Meds Home Medications and Allergies Home Medications Medication Instructions Recorded Confirmed Type melatonin 3 mg tablet 6 mg PO BEDTIME 09/12/19 02/24/21 History lidocaine 5 % topical patch 1 patch TOP DAILY #15 ea 04/29/20 02/24/21 Rx docusate sodium 100 mg capsule 100 mg PO PRN PRN 05/06/20 02/24/21 History acetaminophen 325 mg tablet 650 mg PO Q6HR PRN #100 tab 05/08/20 02/24/21 Rx Diabetic Footwear #1 ea 07/17/20 02/24/21 Rx amlodipine 10 mg tablet (Norvasc) 10 mg PO DAILY #90 tab 07/17/20 02/24/21 Rx hydralazine 10 mg tablet 10 mg PO TID #270 tab 07/17/20 02/24/21 Rx pantoprazole 40 mg tablet,delayed 40 mg PO DAILY #90 tab 07/17/20 02/24/21 Rx release atorvastatin 40 mg tablet 40 mg PO BEDTIME #90 tab 07/21/20 02/24/21 Rx polyethylene glycol 3350 17 17 g PO DAILY PRN #850 g 08/07/20 02/24/21 Rx gram/dose oral powder carvedilol 12.5 mg tablet (Coreg) 12.5 mg PO BID #180 tab 09/03/20 02/24/21 Rx doxazosin 4 mg tablet See Rx Instructions .ROUTE 09/03/20 02/24/21 Rx .COMPLEX #90 tab allopurinol 100 mg tablet 200 mg PO DAILY #180 tab 10/26/20 02/24/21 Rx (Zyloprim) duloxetine 60 mg capsule,delayed 60 mg PO BID #180 cap 11/12/20 02/24/21 Rx release nystatin 100,000 unit/gram topical 1 applic TOPICAL TID #30 g 11/26/20 02/24/21 Rx cream hydroxyzine HCl 25 mg tablet 25 mg PO BEDTIME PRN #30 tab 11/27/20 02/24/21 Rx glipizide 2.5 mg tablet, extended 2.5 mg PO DAILY #90 tab 01/13/21 02/24/21 Rx release 24 hr torsemide 20 mg tablet 40 mg PO DAILY #60 tab 02/11/21 02/24/21 Rx citalopram 20 mg tablet 20 mg PO DAILY #90 tab 03/03/21 Rx Home scale #1 ea 01/11/22 Rx hydrocodone 5 mg-acetaminophen 325 1 tab PO Q8H PRN #90 tab 03/18/21 Rx mg tablet Allergies Allergy/AdvReac Type Severity Reaction Status Date / Time latex Allergy Mild IRRITATION Verified 03/24/21 10:26 carisoprodol [From Soma] Allergy Verified 03/24/21 10:26 hydromorphone Allergy Verified 03/24/21 10:26 Sulfa (Sulfonamide AdvReac Mild N&V 1HOUR Verified 03/24/21 10:26 Antibiotics) AFTER RX, THINKS IT IS RELATED Review of Systems Review of Systems Narrative: 14 systems reviewed and negative aside from what is noted in HPI Exam Vital Signs (past 8 hours): - 03/24/21 11:45 03/24/21 12:00 03/24/21 12:15 Temperature 101.5 F H 101.3 F H 101.1 F H Pulse Rate 94 H 88 86 Respiratory Rate 33 H 30 H 30 H Blood Pressure 141/72 H 120/67 119/60 Pulse Oximetry 96 96 97 03/24/21 12:23 03/24/21 12:30 03/24/21 12:45 Temperature 100.9 F H 100.8 F H Pulse Rate 95 H 94 H 87 Respiratory Rate 38 H 22 26 H Blood Pressure 145/63 H 127/60 137/65 Pulse Oximetry 99 100 95 03/24/21 13:00 03/24/21 13:15 03/24/21 13:36 Temperature 100.6 F H 100.4 F H 100.0 F H Pulse Rate 83 86 87 Respiratory Rate 22 27 H 51 H Blood Pressure 124/66 123/69 Pulse Oximetry 98 97 98 03/24/21 13:37 03/24/21 13:45 03/24/21 14:00 Temperature 100.0 F H 100.0 F H 99.9 F H Pulse Rate 84 80 80 Respiratory Rate 24 22 21 Blood Pressure 126/58 L 134/60 120/61 Pulse Oximetry 97 98 98 03/24/21 14:15 03/24/21 14:27 03/24/21 15:12 Temperature 99.7 F H 99.6 F Pulse Rate 83 92 H Respiratory Rate 21 20 Blood Pressure 121/67 Pulse Oximetry 96 100 03/24/21 16:50 03/24/21 16:52 03/24/21 18:02 Temperature 99.5 F Pulse Rate 89 88 90 Respiratory Rate 26 H 18 25 H Blood Pressure 127/96 H Pulse Oximetry 99 98 99 03/24/21 18:18 03/24/21 19:06 Temperature 99.5 F Pulse Rate 89 Respiratory Rate 25 H Blood Pressure 122/60 Pulse Oximetry Fraction of Inspired Oxygen 40 Oxygen Delivery Method Heated High Flow Oxygen Flow Rate 40 Narrative Exam Narrative: GEN: altered, ill appearing, in pain HEENT: moist mucous membranes, PERRL NECK: trachea midline, no JVD CV: regular rate and rhythm PULM: coarse breath sounds bilaterally ABD: soft, nontender, nondistended, no organomegaly EXT; bilateral swelling, venous stasis changes with superimposed erythema, pain, swelling, maceratin, and foul smelling NEURO: aletere, moving all extremities PSYCH: unable to obtain Objective Labs Result Diagrams: 03/24/21 09:38 03/24/21 09:38 Labs: Laboratory Results - last 24 hr 03/24/21 03/24/21 03/24/21 09:35 09:38 09:38 WBC 30.8 H* D RBC 2.86 L Hgb 9.1 L Hct 27.9 L MCV 97.6 MCH 31.8 MCHC 32.5 RDW 15.7 H Plt Count 210 Neut % (Auto) Not Reportable Lymph % (Auto) Not Reportable [place] % (Auto) Not Reportable Eos % (Auto) Not Reportable Baso % (Auto) Not Reportable Lymph # (Auto) Not Reportable [place] # (Auto) Not Reportable Baso # (Auto) Not Reportable Total Counted 100 Seg Neutrophils % 84.0 H Band Neutrophils % 11.0 H Lymphocytes % (Manual) 1.0 L Atypical Lymphs % 1.0 H Monocytes % (Manual) 3.0 Neutrophils # (Manual) 66299 H RBC Morphology Not Reportable Anisocytosis 2+ H ESR D-Dimer 1008 H ABG pH ABG pCO2 ABG pO2 ABG HCO3 ABG Total CO2 ABG O2 Saturation ABG Base Excess FiO2 Sodium Potassium Chloride Carbon Dioxide BUN Creatinine Estimated GFR BUN/Creatinine Ratio Glucose Lactate Calcium Total Bilirubin AST ALT Alkaline Phosphatase Total Creatine Kinase CK-MB (CK-2) CK-MB (CK-2) Rel Index Troponin I C-Reactive Protein NT-Pro-B Natriuret Pep Total Protein Albumin Globulin Albumin/Globulin Ratio Procalcitonin Urine Color Urine Appearance Urine pH Ur Specific [place] Urine Protein Urine Glucose (UA) Urine Ketones Urine Occult Blood Urine Nitrate Urine Bilirubin Urine Urobilinogen Ur Leukocyte Esterase Urine RBC Urine WBC Ur Squamous Epith Cells Urine Bacteria Ur Culture Indicated? Nasal Screen MRSA (PCR) U Opiates 300ng/mL cut Ur Oxycodone Screen Urine Methadone Screen Ur Barbiturates Screen U Tricyclic Antidepress Ur Phencyclidine Scrn Ur Amphetamines Screen U Methamphetamines Scrn Ur MDMA Scrn (Ecstasy) U Benzodiazepines Scrn Urine Cocaine Screen U Marijuana (THC) Screen Ethyl Alcohol Chlamy pneumoniae PCR Adenovirus (PCR) B. pertussis DNA (PCR) B.parapertussis DNA PCR Coronavirus OC43 (PCR) Coronavirus HKU1 (PCR) Coronavirus 229E (PCR) SARS-CoV-2 (PCR) Negative Coronavirus NL63 (PCR) Human Metapneumovir PCR Influenza Type A (PCR) Influenza Type B (PCR) M. pneumoniae (PCR) Parainfluenza 1 (PCR) Parainfluenza 2 (PCR) Parainfluenza 3 (PCR) Parainfluenza 4 (PCR) RSV (PCR) Entero/Rhino (PCR) Blood Type Antibody Screen 03/24/21 03/24/21 03/24/21 09:38 09:38 09:40 WBC RBC Hgb Hct MCV MCH MCHC RDW Plt Count Neut % (Auto) Lymph % (Auto) [place] % (Auto) Eos % (Auto) Baso % (Auto) Lymph # (Auto) [place] # (Auto) Baso # (Auto) Total Counted Seg Neutrophils % Band Neutrophils % Lymphocytes % (Manual) Atypical Lymphs % Monocytes % (Manual) Neutrophils # (Manual) RBC Morphology Anisocytosis ESR D-Dimer ABG pH ABG pCO2 ABG pO2 ABG HCO3 ABG Total CO2 ABG O2 Saturation ABG Base Excess FiO2 Sodium 134 L Potassium 4.3 Chloride 99 Carbon Dioxide 21 L BUN 81 H Creatinine 3.15 H Estimated GFR 19.7 L BUN/Creatinine Ratio 25.7 H Glucose 209 H Lactate 1.5 Calcium 9.2 Total Bilirubin 0.8 AST 32 ALT 11 Alkaline Phosphatase 127 H Total Creatine Kinase 255 H CK-MB (CK-2) 3.87 H CK-MB (CK-2) Rel Index 1.5 Troponin I 0.094 H C-Reactive Protein NT-Pro-B Natriuret Pep 38213 H Total Protein 8.6 H Albumin 4.4 Globulin 4.2 H Albumin/Globulin Ratio 1.0 Procalcitonin 20.5 H Urine Color Urine Appearance Urine pH Ur Specific [place] Urine Protein Urine Glucose (UA) Urine Ketones Urine Occult Blood Urine Nitrate Urine Bilirubin Urine Urobilinogen Ur Leukocyte Esterase Urine RBC Urine WBC Ur Squamous Epith Cells Urine Bacteria Ur Culture Indicated? Nasal Screen MRSA (PCR) U Opiates 300ng/mL cut Ur Oxycodone Screen Urine Methadone Screen Ur Barbiturates Screen U Tricyclic Antidepress Ur Phencyclidine Scrn Ur Amphetamines Screen U Methamphetamines Scrn Ur MDMA Scrn (Ecstasy) U Benzodiazepines Scrn Urine Cocaine Screen U Marijuana (THC) Screen Ethyl Alcohol Chlamy pneumoniae PCR Adenovirus (PCR) B. pertussis DNA (PCR) B.parapertussis DNA PCR Coronavirus OC43 (PCR) Coronavirus HKU1 (PCR) Coronavirus 229E (PCR) SARS-CoV-2 (PCR) Coronavirus NL63 (PCR) Human Metapneumovir PCR Influenza Type A (PCR) Influenza Type B (PCR) M. pneumoniae (PCR) Parainfluenza 1 (PCR) Parainfluenza 2 (PCR) Parainfluenza 3 (PCR) Parainfluenza 4 (PCR) RSV (PCR) Entero/Rhino (PCR) Blood Type O Positive Antibody Screen Negative 03/24/21 03/24/21 03/24/21 09:40 09:40 09:52 WBC RBC Hgb Hct MCV MCH MCHC RDW Plt Count Neut % (Auto) Lymph % (Auto) [place] % (Auto) Eos % (Auto) Baso % (Auto) Lymph # (Auto) [place] # (Auto) Baso # (Auto) Total Counted Seg Neutrophils % Band Neutrophils % Lymphocytes % (Manual) Atypical Lymphs % Monocytes % (Manual) Neutrophils # (Manual) RBC Morphology Anisocytosis ESR D-Dimer ABG pH 7.34 L ABG pCO2 36.8 ABG pO2 63 L ABG HCO3 20 L ABG Total CO2 21 ABG O2 Saturation 90 L ABG Base Excess -6.0 L FiO2 21 Sodium Potassium Chloride Carbon Dioxide BUN Creatinine Estimated GFR BUN/Creatinine Ratio Glucose Lactate Calcium Total Bilirubin AST ALT Alkaline Phosphatase Total Creatine Kinase CK-MB (CK-2) CK-MB (CK-2) Rel Index Troponin I C-Reactive Protein NT-Pro-B Natriuret Pep Total Protein Albumin Globulin Albumin/Globulin Ratio Procalcitonin Urine Color Yellow Urine Appearance Clear Urine pH 5.0 Ur Specific [place] 1.015 Urine Protein 1+ H Urine Glucose (UA) Negative Urine Ketones Negative Urine Occult Blood Trace-lysed Urine Nitrate Negative Urine Bilirubin Negative Urine Urobilinogen 0.2 Ur Leukocyte Esterase Negative Urine RBC None seen Urine WBC 1-5/hpf Ur Squamous Epith Cells 1-5 /hpf Urine Bacteria Moderate (10-30) H Ur Culture Indicated? Cult not indicated Nasal Screen MRSA (PCR) U Opiates 300ng/mL cut Ur Oxycodone Screen Urine Methadone Screen Ur Barbiturates Screen U Tricyclic Antidepress Ur Phencyclidine Scrn Ur Amphetamines Screen U Methamphetamines Scrn Ur MDMA Scrn (Ecstasy) U Benzodiazepines Scrn Urine Cocaine Screen U Marijuana (THC) Screen Ethyl Alcohol < 10 Chlamy pneumoniae PCR Adenovirus (PCR) B. pertussis DNA (PCR) B.parapertussis DNA PCR Coronavirus OC43 (PCR) Coronavirus HKU1 (PCR) Coronavirus 229E (PCR) SARS-CoV-2 (PCR) Coronavirus NL63 (PCR) Human Metapneumovir PCR Influenza Type A (PCR) Influenza Type B (PCR) M. pneumoniae (PCR) Parainfluenza 1 (PCR) Parainfluenza 2 (PCR) Parainfluenza 3 (PCR) Parainfluenza 4 (PCR) RSV (PCR) Entero/Rhino (PCR) Blood Type Antibody Screen 03/24/21 03/24/21 03/24/21 09:52 09:57 14:15 WBC RBC Hgb Hct MCV MCH MCHC RDW Plt Count Neut % (Auto) Lymph % (Auto) [place] % (Auto) Eos % (Auto) Baso % (Auto) Lymph # (Auto) [place] # (Auto) Baso # (Auto) Total Counted Seg Neutrophils % Band Neutrophils % Lymphocytes % (Manual) Atypical Lymphs % Monocytes % (Manual) Neutrophils # (Manual) RBC Morphology Anisocytosis ESR > 140 H D-Dimer ABG pH ABG pCO2 ABG pO2 ABG HCO3 ABG Total CO2 ABG O2 Saturation ABG Base Excess FiO2 Sodium Potassium Chloride Carbon Dioxide BUN Creatinine Estimated GFR BUN/Creatinine Ratio Glucose Lactate Calcium Total Bilirubin AST ALT Alkaline Phosphatase Total Creatine Kinase CK-MB (CK-2) CK-MB (CK-2) Rel Index Troponin I C-Reactive Protein NT-Pro-B Natriuret Pep Total Protein Albumin Globulin Albumin/Globulin Ratio Procalcitonin Urine Color Urine Appearance Urine pH Ur Specific [place] Urine Protein Urine Glucose (UA) Urine Ketones Urine Occult Blood Urine Nitrate Urine Bilirubin Urine Urobilinogen Ur Leukocyte Esterase Urine RBC Urine WBC Ur Squamous Epith Cells Urine Bacteria Ur Culture Indicated? Nasal Screen MRSA (PCR) U Opiates 300ng/mL cut Positive H Ur Oxycodone Screen Negative Urine Methadone Screen Negative Ur Barbiturates Screen Negative U Tricyclic Antidepress Negative Ur Phencyclidine Scrn Negative Ur Amphetamines Screen Negative U Methamphetamines Scrn Negative Ur MDMA Scrn (Ecstasy) Negative U Benzodiazepines Scrn Negative Urine Cocaine Screen Negative U Marijuana (THC) Screen Negative Ethyl Alcohol Chlamy pneumoniae PCR Not detected Adenovirus (PCR) Not detected B. pertussis DNA (PCR) Not detected B.parapertussis DNA PCR Not detected Coronavirus OC43 (PCR) Not detected Coronavirus HKU1 (PCR) Not detected Coronavirus 229E (PCR) Not detected SARS-CoV-2 (PCR) Not detected Coronavirus NL63 (PCR) Not detected Human Metapneumovir PCR Not detected Influenza Type A (PCR) Not detected Influenza Type B (PCR) Not detected M. pneumoniae (PCR) Not detected Parainfluenza 1 (PCR) Not detected Parainfluenza 2 (PCR) Not detected Parainfluenza 3 (PCR) Not detected Parainfluenza 4 (PCR) Not detected RSV (PCR) Not detected Entero/Rhino (PCR) Not detected Blood Type Antibody Screen 03/24/21 03/24/21 03/24/21 14:15 14:15 15:00 WBC RBC Hgb Hct MCV MCH MCHC RDW Plt Count Neut % (Auto) Lymph % (Auto) [place] % (Auto) Eos % (Auto) Baso % (Auto) Lymph # (Auto) [place] # (Auto) Baso # (Auto) Total Counted Seg Neutrophils % Band Neutrophils % Lymphocytes % (Manual) Atypical Lymphs % Monocytes % (Manual) Neutrophils # (Manual) RBC Morphology Anisocytosis ESR D-Dimer ABG pH ABG pCO2 ABG pO2 ABG HCO3 ABG Total CO2 ABG O2 Saturation ABG Base Excess FiO2 Sodium Potassium Chloride Carbon Dioxide BUN Creatinine Estimated GFR BUN/Creatinine Ratio Glucose Lactate Calcium Total Bilirubin AST ALT Alkaline Phosphatase Total Creatine Kinase CK-MB (CK-2) CK-MB (CK-2) Rel Index Troponin I 0.098 H C-Reactive Protein 21.5 H NT-Pro-B Natriuret Pep Total Protein Albumin Globulin Albumin/Globulin Ratio Procalcitonin Urine Color Urine Appearance Urine pH Ur Specific [place] Urine Protein Urine Glucose (UA) Urine Ketones Urine Occult Blood Urine Nitrate Urine Bilirubin Urine Urobilinogen Ur Leukocyte Esterase Urine RBC Urine WBC Ur Squamous Epith Cells Urine Bacteria Ur Culture Indicated? Nasal Screen MRSA (PCR) Positive for mrsa H U Opiates 300ng/mL cut Ur Oxycodone Screen Urine Methadone Screen Ur Barbiturates Screen U Tricyclic Antidepress Ur Phencyclidine Scrn Ur Amphetamines Screen U Methamphetamines Scrn Ur MDMA Scrn (Ecstasy) U Benzodiazepines Scrn Urine Cocaine Screen U Marijuana (THC) Screen Ethyl Alcohol Chlamy pneumoniae PCR Adenovirus (PCR) B. pertussis DNA (PCR) B.parapertussis DNA PCR Coronavirus OC43 (PCR) Coronavirus HKU1 (PCR) Coronavirus 229E (PCR) SARS-CoV-2 (PCR) Coronavirus NL63 (PCR) Human Metapneumovir PCR Influenza Type A (PCR) Influenza Type B (PCR) M. pneumoniae (PCR) Parainfluenza 1 (PCR) Parainfluenza 2 (PCR) Parainfluenza 3 (PCR) Parainfluenza 4 (PCR) RSV (PCR) Entero/Rhino (PCR) Blood Type Antibody Screen Assessment & Plan Assessment & Plan narrative: Mr. Tubbs is admitted with sepsis, acute hypoxemic respiratory failure, found to have acute cellulitis. 1. Sepsis, celluitis, possible osteomyelitis -patient has bilateral erythematous, painful legs -wound culture pending, blood culture pending -organ dysfunction with encephalopathy and abhi -currently treat with vancomycin, meropenem pending cultures -ESR >assay -CT shows no abscess -MRI bilaterally feet to eval for osteomyelitis 2. Acute metabolic encephalopathy -presume from sepsis, also consider wernicke's encephalopathy -treat sepsis as above -treat wernicke's with high dose thiamine 3. Acute hypoxemic respiratory failure -etiology not clear, possibly related to congestive heart failure -ordered for ECHO -avoid diuresis for now given severe sepsis 4. ABHI on CKD stage 4 -secondary to sepsis -did get vancomycin and did get IV contrast with CT scan -monitor renal function closely -higgins for urine output -follow closely to see if need dialysis, no indication currently 5. Elevatated troponin -likely from demand ischemia -continue to trend troponins 6. Alcohol abuse -[facility] -MVI, thiamine, folate -continue ativan PRN CODE: presumed full PROXY: sister, Rosa I have utilized all available resources to reconcile the patient's home medications. Time Spent With Patient Critical Care time: I spent a total of [] minutes of critical care time on this patient's care today; this time is exclusive of procedural time. Quality MIPS - Admit I confirm the patient?s Advance Care Plan is present, Code status is documented, Surrogate decision maker is in patient?s record [If Yes, STOP here]: Yes
--- NOTE | 2021-03-24 19:46 | PC.NURSE ---
PT ADMITTED THIS AFTERNOON TO 229- ICU STATUS REQUIRING BIPAP IN ED AND [facility] - INTERMITTENTLY CONFUSED AND TAKING OFF LEADS ETC- CIWA SCORE 10 THEN DECREASED TO 7 2MG IV LORAZ GIVEN WELL PO OXYCODONE/TYLENOL FOR PAIN- SISTER AT BEDSIDE- PT CONFUSED AND NOT SO COOPERATIVE
[2021-03-24] MEDS: MEROPENEM 2 GM in SODIUM CHLORIDE 0.9% 100 ML 200 ML IV (21:33)
[2021-03-24] MEDS: LACTATED RINGERS 1,000 ML 100 ML IV (21:34)
[2021-03-24 21:36] LABS: Troponin I 0.087 ng/mL (0.01-0.034)
--- NOTE | 2021-03-24 22:05 | P.TELICUCN_ITS ---
History of Present Illness Consult details Date Patient Seen: 03/24/21 Chief complaint: Pale, tachycardia :: This patient was seen via real time interactive two-way audiovisual telecommunic ation. Narrative: 70 y.o. male w/ PMHx of CKD3, EtOH abuse, morbid obesity and chronic LE wounds who was found down appearing unwell. [place] [address] with a normal, ABHI superimposed on CKD3 with a creatinine of 3.15 (baseline of 2.5, moderate on 2019 2-D echo, an elevated troponin of 0.094 which has fallen, CK of 255, a D-dimer of 1008 [place] [address]. Urine tox was (+) for opioids. MRSA swab has returned (+). pCXR are inconsistent with an infectious source; source appears to be his LE wounds or urine (urine micro with bacteria). Pulmonary CTA was (-) for a PE. He has been cultured fito stated on vancomycin and meropenem. FORMERLY [facility] Medical History Arthritis BPH w urinary obs/LUTS Cellulitis of left leg Chronic kidney disease, stage 4 (severe) Chronic UTI Depression Diabetes Duodenal ulcer History of cervical fracture History of UTI Hyperparathyroidism Osteoarthritis Peripheral vascular disease Renal disease Surgical History H/O cervical spine surgery History of back surgery History of colectomy History of colon surgery History of fusion of cervical spine History of knee replacement Family History Mother Kidney failure Diabetes mellitus Social History marital status: number of children: 4 household members: none occupational status: employed Smoking Status: Former smoker alcohol intake: current caffeine: Yes Current Medications Current Medications Medications: Home Medications melatonin 3 mg tablet 6 mg PO BEDTIME 09/12/19 [History Confirmed 02/24/21] lidocaine 5 % topical patch 1 patch TOP DAILY #15 ea 04/29/20 [Rx Confirmed 02/24/21] docusate sodium 100 mg capsule 100 mg PO PRN PRN 05/06/20 [History Confirmed 02/24/21] acetaminophen 325 mg tablet 650 mg PO Q6HR PRN #100 tab 05/08/20 [Rx Confirmed 02/24/21] Diabetic Footwear #1 ea 07/17/20 [Rx Confirmed 02/24/21] amlodipine 10 mg tablet (Norvasc) 10 mg PO DAILY #90 tab 07/17/20 [Rx Confirmed 02/24/21] hydralazine 10 mg tablet 10 mg PO TID #270 tab 07/17/20 [Rx Confirmed 02/24/21] pantoprazole 40 mg tablet,delayed release 40 mg PO DAILY #90 tab 07/17/20 [Rx Confirmed 02/24/21] atorvastatin 40 mg tablet 40 mg PO BEDTIME #90 tab 07/21/20 [Rx Confirmed 02/24/21] polyethylene glycol 3350 17 gram/dose oral powder 17 g PO DAILY PRN #850 g 08/07/20 [Rx Confirmed 02/24/21] carvedilol 12.5 mg tablet (Coreg) 12.5 mg PO BID #180 tab 09/03/20 [Rx Confirmed 02/24/21] doxazosin 4 mg tablet See Rx Instructions .ROUTE .COMPLEX #90 tab 09/03/20 [Rx Confirmed 02/24/21] allopurinol 100 mg tablet (Zyloprim) 200 mg PO DAILY #180 tab 10/26/20 [Rx Confirmed 02/24/21] duloxetine 60 mg capsule,delayed release 60 mg PO BID #180 cap 11/12/20 [Rx Confirmed 02/24/21] nystatin 100,000 unit/gram topical cream 1 applic TOPICAL TID #30 g 11/26/20 [Rx Confirmed 02/24/21] hydroxyzine HCl 25 mg tablet 25 mg PO BEDTIME PRN #30 tab 11/27/20 [Rx Confirmed 02/24/21] glipizide 2.5 mg tablet, extended release 24 hr 2.5 mg PO DAILY #90 tab 01/13/21 [Rx Confirmed 02/24/21] torsemide 20 mg tablet 40 mg PO DAILY #60 tab 02/11/21 [Rx Confirmed 02/24/21] citalopram 20 mg tablet 20 mg PO DAILY #90 tab 03/03/21 [Rx] Home scale #1 ea 03/16/21 [Rx] hydrocodone 5 mg-acetaminophen 325 mg tablet 1 tab PO Q8H PRN #90 tab 03/18/21 [Rx] Visit Medications (administered) Generic Name Dose Route Start Last Admin Trade Name Freq PRN Reason Stop Dose Admin Acetaminophen 650 mg 03/24/21 13:28 03/24/21 18:19 Acetaminophen 325 Mg Tablet PO 650 mg Q6HR PRN Administration Fever/Mild Pain (1-3) Meropenem 2 gm/ Sodium 100 mls @ 200 mls/hr 03/24/21 19:00 03/24/21 21:33 Chloride IV 200 mls/hr Q12H DAVID Administration Insulin Human Lispro 0 unit 03/24/21 21:00 03/24/21 21:58 Insulin Lispro 100 Unit/Ml 3ml Vial SUBCUT Not Given ACHS DAVID Protocol Lorazepam 0 mg 03/24/21 18:02 03/24/21 19:52 Lorazepam 2 Mg/Ml Inj IV 2 mg CIWAPRN PRN Administration Alcohol Withdrawal Protocol Oxycodone HCl 5 mg 03/24/21 16:11 03/24/21 18:18 Oxycodone Ir 5 Mg Tablet PO 5 mg Q4HR PRN Administration Pain, Moderate (4-6) Exam Vital Signs (past 8 hours): - 03/24/21 14:15 03/24/21 14:27 03/24/21 15:12 Temperature 99.7 F H 99.6 F Pulse Rate 83 92 H Respiratory Rate 21 20 Blood Pressure 121/67 Pulse Oximetry 96 100 03/24/21 16:50 03/24/21 16:52 03/24/21 18:02 Temperature 99.5 F Pulse Rate 89 88 90 Respiratory Rate 26 H 18 25 H Blood Pressure 127/96 H Pulse Oximetry 99 98 99 03/24/21 18:18 03/24/21 19:06 03/24/21 19:30 Temperature 99.5 F Pulse Rate 89 88 Respiratory Rate 25 H 20 Blood Pressure 122/60 116/61 Pulse Oximetry 100 Fraction of Inspired Oxygen 40 Oxygen Delivery Method Heated High Flow Oxygen Flow Rate 40 Const General: ill appearing Nutritional Appearance: obese Resp Other: HFNC 40L 30% Cardio Rate: regular rate Objective Labs Result Diagrams: 03/24/21 09:38 03/24/21 09:38 Labs: Laboratory Results - last 24 hr 03/24/21 03/24/21 03/24/21 09:35 09:38 09:38 WBC 30.8 H* D RBC 2.86 L Hgb 9.1 L Hct 27.9 L MCV 97.6 MCH 31.8 MCHC 32.5 RDW 15.7 H Plt Count 210 Neut % (Auto) Not Reportable Lymph % (Auto) Not Reportable Mcduffie % (Auto) Not Reportable Eos % (Auto) Not Reportable Baso % (Auto) Not Reportable Lymph # (Auto) Not Reportable Mcduffie # (Auto) Not Reportable Baso # (Auto) Not Reportable Total Counted 100 Seg Neutrophils % 84.0 H Band Neutrophils % 11.0 H Lymphocytes % (Manual) 1.0 L Atypical Lymphs % 1.0 H Monocytes % (Manual) 3.0 Neutrophils # (Manual) 59148 H RBC Morphology Not Reportable Anisocytosis 2+ H ESR D-Dimer 1008 H ABG pH ABG pCO2 ABG pO2 ABG HCO3 ABG Total CO2 ABG O2 Saturation ABG Base Excess FiO2 Sodium Potassium Chloride Carbon Dioxide BUN Creatinine Estimated GFR BUN/Creatinine Ratio Glucose Lactate Calcium Total Bilirubin AST ALT Alkaline Phosphatase Total Creatine Kinase CK-MB (CK-2) CK-MB (CK-2) Rel Index Troponin I C-Reactive Protein NT-Pro-B Natriuret Pep Total Protein Albumin Globulin Albumin/Globulin Ratio Procalcitonin Urine Color Urine Appearance Urine pH Ur Specific Zalma Urine Protein Urine Glucose (UA) Urine Ketones Urine Occult Blood Urine Nitrate Urine Bilirubin Urine Urobilinogen Ur Leukocyte Esterase Urine RBC Urine WBC Ur Squamous Epith Cells Urine Bacteria Ur Culture Indicated? Nasal Screen MRSA (PCR) U Opiates 300ng/mL cut Ur Oxycodone Screen Urine Methadone Screen Ur Barbiturates Screen U Tricyclic Antidepress Ur Phencyclidine Scrn Ur Amphetamines Screen U Methamphetamines Scrn Ur MDMA Scrn (Ecstasy) U Benzodiazepines Scrn Urine Cocaine Screen U Marijuana (THC) Screen Ethyl Alcohol Chlamy pneumoniae PCR Adenovirus (PCR) B. pertussis DNA (PCR) B.parapertussis DNA PCR Coronavirus OC43 (PCR) Coronavirus HKU1 (PCR) Coronavirus 229E (PCR) SARS-CoV-2 (PCR) Negative Coronavirus NL63 (PCR) Human Metapneumovir PCR Influenza Type A (PCR) Influenza Type B (PCR) M. pneumoniae (PCR) Parainfluenza 1 (PCR) Parainfluenza 2 (PCR) Parainfluenza 3 (PCR) Parainfluenza 4 (PCR) RSV (PCR) Entero/Rhino (PCR) Blood Type Antibody Screen 03/24/21 03/24/21 03/24/21 09:38 09:38 09:40 WBC RBC Hgb Hct MCV MCH MCHC RDW Plt Count Neut % (Auto) Lymph % (Auto) Mcduffie % (Auto) Eos % (Auto) Baso % (Auto) Lymph # (Auto) Mcduffie # (Auto) Baso # (Auto) Total Counted Seg Neutrophils % Band Neutrophils % Lymphocytes % (Manual) Atypical Lymphs % Monocytes % (Manual) Neutrophils # (Manual) RBC Morphology Anisocytosis ESR D-Dimer ABG pH ABG pCO2 ABG pO2 ABG HCO3 ABG Total CO2 ABG O2 Saturation ABG Base Excess FiO2 Sodium 134 L Potassium 4.3 Chloride 99 Carbon Dioxide 21 L BUN 81 H Creatinine 3.15 H Estimated GFR 19.7 L BUN/Creatinine Ratio 25.7 H Glucose 209 H Lactate 1.5 Calcium 9.2 Total Bilirubin 0.8 AST 32 ALT 11 Alkaline Phosphatase 127 H Total Creatine Kinase 255 H CK-MB (CK-2) 3.87 H CK-MB (CK-2) Rel Index 1.5 Troponin I 0.094 H C-Reactive Protein NT-Pro-B Natriuret Pep 66261 H Total Protein 8.6 H Albumin 4.4 Globulin 4.2 H Albumin/Globulin Ratio 1.0 Procalcitonin 20.5 H Urine Color Urine Appearance Urine pH Ur Specific Zalma Urine Protein Urine Glucose (UA) Urine Ketones Urine Occult Blood Urine Nitrate Urine Bilirubin Urine Urobilinogen Ur Leukocyte Esterase Urine RBC Urine WBC Ur Squamous Epith Cells Urine Bacteria Ur Culture Indicated? Nasal Screen MRSA (PCR) U Opiates 300ng/mL cut Ur Oxycodone Screen Urine Methadone Screen Ur Barbiturates Screen U Tricyclic Antidepress Ur Phencyclidine Scrn Ur Amphetamines Screen U Methamphetamines Scrn Ur MDMA Scrn (Ecstasy) U Benzodiazepines Scrn Urine Cocaine Screen U Marijuana (THC) Screen Ethyl Alcohol Chlamy pneumoniae PCR Adenovirus (PCR) B. pertussis DNA (PCR) B.parapertussis DNA PCR Coronavirus OC43 (PCR) Coronavirus HKU1 (PCR) Coronavirus 229E (PCR) SARS-CoV-2 (PCR) Coronavirus NL63 (PCR) Human Metapneumovir PCR Influenza Type A (PCR) Influenza Type B (PCR) M. pneumoniae (PCR) Parainfluenza 1 (PCR) Parainfluenza 2 (PCR) Parainfluenza 3 (PCR) Parainfluenza 4 (PCR) RSV (PCR) Entero/Rhino (PCR) Blood Type O Positive Antibody Screen Negative 03/24/21 03/24/21 03/24/21 09:40 09:40 09:52 WBC RBC Hgb Hct MCV MCH MCHC RDW Plt Count Neut % (Auto) Lymph % (Auto) Mcduffie % (Auto) Eos % (Auto) Baso % (Auto) Lymph # (Auto) Mcduffie # (Auto) Baso # (Auto) Total Counted Seg Neutrophils % Band Neutrophils % Lymphocytes % (Manual) Atypical Lymphs % Monocytes % (Manual) Neutrophils # (Manual) RBC Morphology Anisocytosis ESR D-Dimer ABG pH 7.34 L ABG pCO2 36.8 ABG pO2 63 L ABG HCO3 20 L ABG Total CO2 21 ABG O2 Saturation 90 L ABG Base Excess -6.0 L FiO2 21 Sodium Potassium Chloride Carbon Dioxide BUN Creatinine Estimated GFR BUN/Creatinine Ratio Glucose Lactate Calcium Total Bilirubin AST ALT Alkaline Phosphatase Total Creatine Kinase CK-MB (CK-2) CK-MB (CK-2) Rel Index Troponin I C-Reactive Protein NT-Pro-B Natriuret Pep Total Protein Albumin Globulin Albumin/Globulin Ratio Procalcitonin Urine Color Yellow Urine Appearance Clear Urine pH 5.0 Ur Specific Zalma 1.015 Urine Protein 1+ H Urine Glucose (UA) Negative Urine Ketones Negative Urine Occult Blood Trace-lysed Urine Nitrate Negative Urine Bilirubin Negative Urine Urobilinogen 0.2 Ur Leukocyte Esterase Negative Urine RBC None seen Urine WBC 1-5/hpf Ur Squamous Epith Cells 1-5 /hpf Urine Bacteria Moderate (10-30) H Ur Culture Indicated? Cult not indicated Nasal Screen MRSA (PCR) U Opiates 300ng/mL cut Ur Oxycodone Screen Urine Methadone Screen Ur Barbiturates Screen U Tricyclic Antidepress Ur Phencyclidine Scrn Ur Amphetamines Screen U Methamphetamines Scrn Ur MDMA Scrn (Ecstasy) U Benzodiazepines Scrn Urine Cocaine Screen U Marijuana (THC) Screen Ethyl Alcohol < 10 Chlamy pneumoniae PCR Adenovirus (PCR) B. pertussis DNA (PCR) B.parapertussis DNA PCR Coronavirus OC43 (PCR) Coronavirus HKU1 (PCR) Coronavirus 229E (PCR) SARS-CoV-2 (PCR) Coronavirus NL63 (PCR) Human Metapneumovir PCR Influenza Type A (PCR) Influenza Type B (PCR) M. pneumoniae (PCR) Parainfluenza 1 (PCR) Parainfluenza 2 (PCR) Parainfluenza 3 (PCR) Parainfluenza 4 (PCR) RSV (PCR) Entero/Rhino (PCR) Blood Type Antibody Screen 03/24/21 03/24/21 03/24/21 09:52 09:57 14:15 WBC RBC Hgb Hct MCV MCH MCHC RDW Plt Count Neut % (Auto) Lymph % (Auto) Mcduffie % (Auto) Eos % (Auto) Baso % (Auto) Lymph # (Auto) Mcduffie # (Auto) Baso # (Auto) Total Counted Seg Neutrophils % Band Neutrophils % Lymphocytes % (Manual) Atypical Lymphs % Monocytes % (Manual) Neutrophils # (Manual) RBC Morphology Anisocytosis ESR > 140 H D-Dimer ABG pH ABG pCO2 ABG pO2 ABG HCO3 ABG Total CO2 ABG O2 Saturation ABG Base Excess FiO2 Sodium Potassium Chloride Carbon Dioxide BUN Creatinine Estimated GFR BUN/Creatinine Ratio Glucose Lactate Calcium Total Bilirubin AST ALT Alkaline Phosphatase Total Creatine Kinase CK-MB (CK-2) CK-MB (CK-2) Rel Index Troponin I C-Reactive Protein NT-Pro-B Natriuret Pep Total Protein Albumin Globulin Albumin/Globulin Ratio Procalcitonin Urine Color Urine Appearance Urine pH Ur Specific Zalma Urine Protein Urine Glucose (UA) Urine Ketones Urine Occult Blood Urine Nitrate Urine Bilirubin Urine Urobilinogen Ur Leukocyte Esterase Urine RBC Urine WBC Ur Squamous Epith Cells Urine Bacteria Ur Culture Indicated? Nasal Screen MRSA (PCR) U Opiates 300ng/mL cut Positive H Ur Oxycodone Screen Negative Urine Methadone Screen Negative Ur Barbiturates Screen Negative U Tricyclic Antidepress Negative Ur Phencyclidine Scrn Negative Ur Amphetamines Screen Negative U Methamphetamines Scrn Negative Ur MDMA Scrn (Ecstasy) Negative U Benzodiazepines Scrn Negative Urine Cocaine Screen Negative U Marijuana (THC) Screen Negative Ethyl Alcohol Chlamy pneumoniae PCR Not detected Adenovirus (PCR) Not detected B. pertussis DNA (PCR) Not detected B.parapertussis DNA PCR Not detected Coronavirus OC43 (PCR) Not detected Coronavirus HKU1 (PCR) Not detected Coronavirus 229E (PCR) Not detected SARS-CoV-2 (PCR) Not detected Coronavirus NL63 (PCR) Not detected Human Metapneumovir PCR Not detected Influenza Type A (PCR) Not detected Influenza Type B (PCR) Not detected M. pneumoniae (PCR) Not detected Parainfluenza 1 (PCR) Not detected Parainfluenza 2 (PCR) Not detected Parainfluenza 3 (PCR) Not detected Parainfluenza 4 (PCR) Not detected RSV (PCR) Not detected Entero/Rhino (PCR) Not detected Blood Type Antibody Screen 03/24/21 03/24/21 03/24/21 14:15 14:15 15:00 WBC RBC Hgb Hct MCV MCH MCHC RDW Plt Count Neut % (Auto) Lymph % (Auto) Mcduffie % (Auto) Eos % (Auto) Baso % (Auto) Lymph # (Auto) Mcduffie # (Auto) Baso # (Auto) Total Counted Seg Neutrophils % Band Neutrophils % Lymphocytes % (Manual) Atypical Lymphs % Monocytes % (Manual) Neutrophils # (Manual) RBC Morphology Anisocytosis ESR D-Dimer ABG pH ABG pCO2 ABG pO2 ABG HCO3 ABG Total CO2 ABG O2 Saturation ABG Base Excess FiO2 Sodium Potassium Chloride Carbon Dioxide BUN Creatinine Estimated GFR BUN/Creatinine Ratio Glucose Lactate Calcium Total Bilirubin AST ALT Alkaline Phosphatase Total Creatine Kinase CK-MB (CK-2) CK-MB (CK-2) Rel Index Troponin I 0.098 H C-Reactive Protein 21.5 H NT-Pro-B Natriuret Pep Total Protein Albumin Globulin Albumin/Globulin Ratio Procalcitonin Urine Color Urine Appearance Urine pH Ur Specific Zalma Urine Protein Urine Glucose (UA) Urine Ketones Urine Occult Blood Urine Nitrate Urine Bilirubin Urine Urobilinogen Ur Leukocyte Esterase Urine RBC Urine WBC Ur Squamous Epith Cells Urine Bacteria Ur Culture Indicated? Nasal Screen MRSA (PCR) Positive for mrsa H U Opiates 300ng/mL cut Ur Oxycodone Screen Urine Methadone Screen Ur Barbiturates Screen U Tricyclic Antidepress Ur Phencyclidine Scrn Ur Amphetamines Screen U Methamphetamines Scrn Ur MDMA Scrn (Ecstasy) U Benzodiazepines Scrn Urine Cocaine Screen U Marijuana (THC) Screen Ethyl Alcohol Chlamy pneumoniae PCR Adenovirus (PCR) B. pertussis DNA (PCR) B.parapertussis DNA PCR Coronavirus OC43 (PCR) Coronavirus HKU1 (PCR) Coronavirus 229E (PCR) SARS-CoV-2 (PCR) Coronavirus NL63 (PCR) Human Metapneumovir PCR Influenza Type A (PCR) Influenza Type B (PCR) M. pneumoniae (PCR) Parainfluenza 1 (PCR) Parainfluenza 2 (PCR) Parainfluenza 3 (PCR) Parainfluenza 4 (PCR) RSV (PCR) Entero/Rhino (PCR) Blood Type Antibody Screen 03/24/21 21:07 WBC RBC Hgb Hct MCV MCH MCHC RDW Plt Count Neut % (Auto) Lymph % (Auto) Mcduffie % (Auto) Eos % (Auto) Baso % (Auto) Lymph # (Auto) Mcduffie # (Auto) Baso # (Auto) Total Counted Seg Neutrophils % Band Neutrophils % Lymphocytes % (Manual) Atypical Lymphs % Monocytes % (Manual) Neutrophils # (Manual) RBC Morphology Anisocytosis ESR D-Dimer ABG pH ABG pCO2 ABG pO2 ABG HCO3 ABG Total CO2 ABG O2 Saturation ABG Base Excess FiO2 Sodium Potassium Chloride Carbon Dioxide BUN Creatinine Estimated GFR BUN/Creatinine Ratio Glucose Lactate Calcium Total Bilirubin AST ALT Alkaline Phosphatase Total Creatine Kinase CK-MB (CK-2) CK-MB (CK-2) Rel Index Troponin I 0.087 H C-Reactive Protein NT-Pro-B Natriuret Pep Total Protein Albumin Globulin Albumin/Globulin Ratio Procalcitonin Urine Color Urine Appearance Urine pH Ur Specific Zalma Urine Protein Urine Glucose (UA) Urine Ketones Urine Occult Blood Urine Nitrate Urine Bilirubin Urine Urobilinogen Ur Leukocyte Esterase Urine RBC Urine WBC Ur Squamous Epith Cells Urine Bacteria Ur Culture Indicated? Nasal Screen MRSA (PCR) U Opiates 300ng/mL cut Ur Oxycodone Screen Urine Methadone Screen Ur Barbiturates Screen U Tricyclic Antidepress Ur Phencyclidine Scrn Ur Amphetamines Screen U Methamphetamines Scrn Ur MDMA Scrn (Ecstasy) U Benzodiazepines Scrn Urine Cocaine Screen U Marijuana (THC) Screen Ethyl Alcohol Chlamy pneumoniae PCR Adenovirus (PCR) B. pertussis DNA (PCR) B.parapertussis DNA PCR Coronavirus OC43 (PCR) Coronavirus HKU1 (PCR) Coronavirus 229E (PCR) SARS-CoV-2 (PCR) Coronavirus NL63 (PCR) Human Metapneumovir PCR Influenza Type A (PCR) Influenza Type B (PCR) M. pneumoniae (PCR) Parainfluenza 1 (PCR) Parainfluenza 2 (PCR) Parainfluenza 3 (PCR) Parainfluenza 4 (PCR) RSV (PCR) Entero/Rhino (PCR) Blood Type Antibody Screen Assessment & Plan Assessment and plan (1) Acute hypoxemic respiratory failure: Problem details: Unclear cause--may be cardiac given moderate found on 2019 echo. No PE or s ignificant pneumonia found on Chest CT Status: Acute Plan: -Continue HFNC (2) Sepsis: Status: Acute Plan: -Continue vancomycin/meropenem pending culture data (3) Acute renal failure superimposed on stage 3 chronic kidney disease: Status: Acute Plan: -Hold outpt diuretic -I had ordered some IVF given IV contrast load but I discontinued this after further chart review -Changed morphine to hydromorphone -May need renal replacement which would necessitate transfer (4) Morbid obesity due to excess calories: Problem details: Impacted overall health. Status: Chronic Plan: -Follow -May need nocturnal NIPPV although there is no documented ERIKA hx -Minimize potentially sedating meds (5) Opioid dependence, uncomplicated: Status: Acute Plan: -Follow; may complicate EtOH issue (6) Diabetic ulcer of left lower leg: Status: Chronic Plan: -see sepsis; MRI has been ordered (7) Diabetic ulcer of right lower leg: Status: Chronic Plan: -see sepsis; MRI has been ordered (8) Chronic stasis dermatitis: Status: Chronic Plan: -Follow -Ordered LE doppler given clinical history (9) BPH w urinary obs/LUTS: Status: Chronic Plan: -Resume alpha1 martin when feasible (10) Aortic stenosis, moderate: Problem details: new on 2019 echo Status: Chronic Plan: -Follow up on echo (11) Type 2 diabetes mellitus with kidney complication: Status: Acute Plan: -SUBQ insulin regimen -Check HgbA1c (12) Alcohol abuse: Status: Acute Plan: -Thiamine/MVI/CIWA Time Spent With Patient Critical Care time: I spent a total of 35 minutes of critical care time on this patient's care today; this time is exclusive of procedural time.
[2021-03-24] MEDS: THIAMINE 500 MG in SODIUM CHLORIDE 0.9% 50 ML 200 ML IV (22:25)
[2021-03-25] VITALS (25 sets, daily range): BP systolic 110–182; BP diastolic 58–92; PULSE 74–85; RESP 16–31; TEMP 35.7–36.8; O2SAT 93–100
[2021-03-25] MEDS: HYDROMORPHONE 0.5 MG INJ IV ×3 (00:05→20:13)
[2021-03-25 04:58] LABS: BUN Creatinine Ratio 25.5 (6-22); Blood Urea Nitrogen 82 mg/dL (9-20); Calcium 8.4 mg/dL (8.4-10.2); Carbon Dioxide 23 mmol/L (22-32); Chloride 101 mmol/L (98-107); Estimated Glomerular Filt Rate 19.2 mL/min (>60); Glucose 152 mg/dL (80-110); HEMOLYSIS < 15 (0-50); Potassium 4.1 mmol/L (3.4-5.1); Sodium 132 mmol/L (137-145)
[2021-03-25 05:12] LABS: Hematocrit 24.5 % (41-53); Hemoglobin 7.9 g/dL (13.5-17.5); Mean Corpuscular HGB Conc 32.3 % (30-36); Mean Corpuscular Hemoglobin 31.8 PG (26-34); Mean Corpuscular Volume 98.5 fL (80-100); Platelet Count 171 X10^3/uL (150-400); Red Blood Cell Count 2.49 X10^6/uL (4.5-5.9); Red Cell Distribution Width 15.8 % (11.6-14.8); White Blood Cell Count 21.8 X10^3/uL (4.5-11.0)
[2021-03-25 05:13] LABS: Add Manual Diff / Slide Review YES
[2021-03-25 05:39] LABS: Enterococcus species Not Detected (Not Detect); Listeria monocytogenes Not Detected (Not Detect); Staphylococcus species Not Detected (Not Detect); Streptococcus agalactiae (Gr B Not Detected (Not Detect); Streptococcus pneumonia Not Detected (Not Detect); Streptococcus pyogenes (Gr A) Not Detected (Not Detect); Streptococcus species Detected (Not Detect)
[2021-03-25 05:40] LABS: Acinetobacter baumannii Not Detected (Not Detect); Candida albicans Not Detected (Not Detect); Candida glabrata Not Detected (Not Detect); Candida krusei Not Detected (Not Detect); Candida parapsilosis Not Detected (Not Detect); Candida tropicalis Not Detected (Not Detect); E. coli Not Detected (Not Detect); Enterobacter cloacae complex Not Detected (Not Detect); Enterobacteriaceae species Not Detected (Not Detect); Haemophilus influenzae Not Detected (Not Detect); Neisseria meningitidis Not Detected (Not Detect); Proteus species Not Detected (Not Detect); Pseudomonas aeruginosa Not Detected (Not Detect); Serratia marcescens Not Detected (Not Detect)
[2021-03-25] MEDS: THIAMINE 500 MG in SODIUM CHLORIDE 0.9% 50 ML 200 ML IV ×3 (06:09→21:40)
[2021-03-25 06:34] LABS: Hemoglobin A1C% w Est Avg Glu 6.6 % (4.0-6.0)
--- NOTE | 2021-03-25 06:49 | PC.NURSE ---
Shift Note-Patient was very agitated and confused at start of shift, CIWA 11, IV Ativan given per protocol, was effective, brought CIWA down to 4, but he slept fitfully, mild tremors, IV Dilaudid also given for FLACC 5-6/10. 2-3+ edema to BLEs, weeping blisters and sores, warm, cap refill <2, elevated on chux. SR, afebrile via core temp, SpO2 mostly >95%, has significant apnea, occasionally > 10 seconds, on HHF 40L/25%. Thiamine and Meropenum given as scheduled. UOP 425ml clear heidy.
--- NOTE | 2021-03-25 07:00 | DI.US.S_ITS ---
PROCEDURE: [facility] VENOUS LOW EXTREM BI INDICATIONS: ELEVATED D-DIMER TECHNIQUE: Real-time imaging, as well as color and pulse Doppler interrogation, were performed of the deep veins of both legs from the inguinal ligament to the popliteal fossa. COMPARISON: [facility], , [facility]OUS LOW EXTREM BI, 02/28/2020, 13:38. FINDINGS: Suboptimal evaluation due to body habitus and patient movement. Right: The common femoral and femoral veins appear free of intraluminal thrombus. Color and pulse Doppler demonstrate normal phasic intravascular flow. The patient was unable to compress the common femoral and femoral veins. The popliteal vein is not well visualized. Left: The common femoral, femoral and popliteal veins appears free of intraluminal thrombus. The technologist was unable to compress the common femoral and femoral veins. Color and pulse Doppler demonstrate normal phasic intravascular flow. Normal compressibility and augmentation of the popliteal vein. Prominent right inguinal lymph node, which contains a fatty philly and measures 1.1 cm in short axis. IMPRESSION: Suboptimal examination with no gross evidence of DVT. Dictated by: Piyush Minor M.D. on 03/25/2021 at 10:29 Approved by: Piyush Minor M.D. on 03/25/2021 at 10:33
[2021-03-25 07:03] LABS: Neutrophils Absolute Manual 19184 /uL (3000-5900); Total Cells Counted 100
[2021-03-25 07:04] LABS: Anisocytosis 2+
[2021-03-25] MEDS: MEROPENEM 2 GM in SODIUM CHLORIDE 0.9% 100 ML 200 ML IV (07:20)
[2021-03-25] MEDS: CLINDAMYCIN 900 MG/50 ML PIGGYBACK 50 MG IV ×2 (08:39→15:15)
[2021-03-25] MEDS: FOLIC ACID 1 MG TABLET PO (08:39)
[2021-03-25] MEDS: ENOXAPARIN 40 MG/0.4 ML SYRINGE 30 MG SUBCUT (08:39)
[2021-03-25] MEDS: MULTIVITAMIN 1 TABLET 1 TAB PO (08:39)
[2021-03-25] MEDS: INSULIN LISPRO 100 UNIT/ML 3ML VIAL SUBCUT ×2 (08:40→13:41)
--- NOTE | 2021-03-25 09:42 | RT ---
DC'd heated high flow patient is currently on 2L NC with oxygen saturations of greater than 92%. Patient would benefit from BIPAP NOC RT and RN witnessed long periods of apnea
[2021-03-25] MEDS: OXYCODONE IR 5 MG TABLET PO (10:27)
[2021-03-25 16:05] LABS: Vancomycin Random 16.3 ug/mL (10-40)
[2021-03-25] MEDS: MEROPENEM 500 MG in SODIUM CHLORIDE 0.9% 100 ML 200 ML IV (18:20)
--- NOTE | 2021-03-25 18:30 | PC.NURSE ---
Addendum entered by Stalin Link R.N. 03/25/21 18:32: Pt placed on CPAP with O2 bleed in per RT due to de sats to 70s% intermittently with sleep. Will monitor. Original Note: Indwelling catheter dc'd at 1150. Pt has been mostly sleeping today and has had poor PO intake. Pt has not voided. Bladder scan done at 1815 showing 80 ML in. Reviewed VS, labs, home meds with hospitalist. Awaiting orders.
[2021-03-25] MEDS: FUROSEMIDE 100 MG/10 ML VIAL 80 MG IV (18:47)
--- NOTE | 2021-03-25 19:45 | PM.PN.1 ---
Subjective Subjective Date Patient Seen: 03/25/21 Time Patient Seen: 08:00 Interval history: Today he states he feels uncomfortable. Otherwise he can not tell me significantly how he feels. Exam Vital Signs (past 8 hours): - 03/25/21 12:00 03/25/21 12:30 03/25/21 13:00 Temperature Pulse Rate 78 74 76 Respiratory Rate 31 H 21 20 Blood Pressure Pulse Oximetry 99 99 03/25/21 13:30 03/25/21 14:00 03/25/21 14:30 Temperature Pulse Rate 75 76 76 Respiratory Rate 17 18 17 Blood Pressure Pulse Oximetry 99 98 99 03/25/21 15:00 03/25/21 18:04 Temperature 98.1 F Pulse Rate 76 76 Respiratory Rate 20 20 Blood Pressure 141/72 H Pulse Oximetry 98 100 Fraction of Inspired Oxygen 25 Oxygen Delivery Method Nasal Cannula Oxygen Flow Rate 0 Narrative Exam Narrative: GEN: altered, ill appearing, in pain HEENT: moist mucous membranes, PERRL NECK: trachea midline, no JVD CV: regular rate and rhythm PULM: coarse breath sounds bilaterally ABD: soft, nontender, nondistended, no organomegaly EXT; bilateral swelling, venous stasis changes with superimposed erythema, pain, swelling, maceration, and foul smelling NEURO: aletere, moving all extremities PSYCH: anxious Objective Labs Result Diagrams: 03/25/21 04:15 03/25/21 04:15 Labs: Laboratory Results - last 24 hr 03/24/21 03/24/21 03/25/21 09:40 21:07 04:15 WBC 21.8 H RBC 2.49 L Hgb 7.9 L Hct 24.5 L MCV 98.5 MCH 31.8 MCHC 32.3 RDW 15.8 H Plt Count 171 Neut % (Auto) Not Reportable Lymph % (Auto) Not Reportable [place] % (Auto) Not Reportable Eos % (Auto) Not Reportable Baso % (Auto) Not Reportable Lymph # (Auto) Not Reportable [place] # (Auto) Not Reportable Baso # (Auto) Not Reportable Total Counted 100 Seg Neutrophils % 88.0 H Lymphocytes % (Manual) 5.0 L D Monocytes % (Manual) 6.0 Basophils % (Manual) 1.0 Neutrophils # (Manual) 13802 H RBC Morphology Not Reportable Anisocytosis 2+ H Sodium Potassium Chloride Carbon Dioxide BUN Creatinine Estimated GFR BUN/Creatinine Ratio Glucose Hemoglobin A1c Calcium Troponin I 0.087 H Random Vancomycin A. baumannii (PCR) Not detected Juliane albicans (PCR) Not detected C. glabrata (PCR) Not detected C. krusei (PCR) Not detected C. parapsilosis (PCR) Not detected C. tropicalis (PCR) Not detected Enterobacteriac sp PCR Not detected E. cloacae complex PCR Not detected Enterococcus sp PCR Not detected E. coli (PCR) Not detected H. influenzae (PCR) Not detected Klebsiella oxytoca PCR Not detected Klebsiella pneumoniae Not detected List. monocytogenes PCR Not detected N. meningitidis (PCR) Not detected Proteus species (PCR) Not detected Serratia marcescens PCR Not detected Staphylococcus sp PCR Not detected Staph aureus (PCR) Not detected mecA-Methicil Res Gene Not Reportable Streptococcus sp PCR Detected H Group A Strep (PCR) Not detected Strep agalactiae (PCR) Not detected Strep pneumoniae (PCR) Not detected P. aeruginosa (PCR) Not detected Curt/B-Vanco Res Genes Not Reportable KPC-Carbap Res Gene PCR Not Reportable 03/25/21 03/25/21 03/25/21 04:15 04:15 15:12 WBC RBC Hgb Hct MCV MCH MCHC RDW Plt Count Neut % (Auto) Lymph % (Auto) [place] % (Auto) Eos % (Auto) Baso % (Auto) Lymph # (Auto) [place] # (Auto) Baso # (Auto) Total Counted Seg Neutrophils % Lymphocytes % (Manual) Monocytes % (Manual) Basophils % (Manual) Neutrophils # (Manual) RBC Morphology Anisocytosis Sodium 132 L Potassium 4.1 Chloride 101 Carbon Dioxide 23 BUN 82 H Creatinine 3.22 H Estimated GFR 19.2 L BUN/Creatinine Ratio 25.5 H Glucose 152 H Hemoglobin A1c 6.6 H Calcium 8.4 Troponin I Random Vancomycin 16.3 A. baumannii (PCR) Juliane albicans (PCR) C. glabrata (PCR) C. krusei (PCR) C. parapsilosis (PCR) C. tropicalis (PCR) Enterobacteriac sp PCR E. cloacae complex PCR Enterococcus sp PCR E. coli (PCR) H. influenzae (PCR) Klebsiella oxytoca PCR Klebsiella pneumoniae List. monocytogenes PCR N. meningitidis (PCR) Proteus species (PCR) Serratia marcescens PCR Staphylococcus sp PCR Staph aureus (PCR) mecA-Methicil Res Gene Streptococcus sp PCR Group A Strep (PCR) Strep agalactiae (PCR) Strep pneumoniae (PCR) P. aeruginosa (PCR) Curt/B-Vanco Res Genes KPC-Carbap Res Gene PCR PFSH Medical History Arthritis BPH w urinary obs/LUTS Cellulitis of left leg Chronic kidney disease, stage 4 (severe) Chronic UTI Depression Diabetes Duodenal ulcer History of cervical fracture History of UTI Hyperparathyroidism Osteoarthritis Peripheral vascular disease Renal disease Surgical History H/O cervical spine surgery History of back surgery History of colectomy History of colon surgery History of fusion of cervical spine History of knee replacement Family History Mother Kidney failure Diabetes mellitus Social History marital status: number of children: 4 household members: none occupational status: employed Smoking Status: Former smoker alcohol intake: current caffeine: Yes Assessment & Plan Assessment & Plan narrative: 1. Sepsis, celluitis, possible osteomyelitis, improved -patient has bilateral erythematous, painful legs -wound culture pending, blood culture pending -organ dysfunction with encephalopathy and abhi -currently treat with vancomycin, meropenem pending cultures -ESR >assay -CT shows no abscess -MRI bilaterally feet to eval for osteomyelitis 2. Acute metabolic encephalopathy -presume from sepsis, also consider wernicke's encephalopathy -treat sepsis as above -treat wernicke's with high dose thiamine 3. Acute hypoxemic respiratory failure, improved -etiology not clear, possibly related to congestive heart failure or aortic stenosis -ordered for ECHO -avoid diuresis for now given severe sepsis 4. ABHI on CKD stage 4 -secondary to sepsis -did get vancomycin and did get IV contrast with CT scan -monitor renal function closely -higgins for urine output -follow closely to see if need dialysis, no indication currently -start lasix for now 5. Elevatated troponin -likely from demand ischemia -continue to trend troponins 6. Alcohol abuse -[facility] protocol -MVI, thiamine, folate -continue ativan PRN Time Spent With Patient Critical Care time: I spent a total of [] minutes of critical care time on this patient's care today; this time is exclusive of procedural time.
[2021-03-25] MEDS: LORazepam 2 MG/ML INJ IV (20:14)
[2021-03-26] VITALS: BP 132/98; PULSE 79; RESP 13; O2SAT 98
[2021-03-26] MEDS: CLINDAMYCIN 900 MG/50 ML PIGGYBACK 50 MG IV ×2 (00:02→09:05)
[2021-03-26] MEDS: OXYCODONE IR 5 MG TABLET PO (00:03)
[2021-03-26] MEDS: LORazepam 2 MG/ML INJ IV ×3 (01:42→20:04)
[2021-03-26 02:26] VITALS: BP 132/98; PULSE 77; RESP 18
[2021-03-26 03:45] VITALS: BP 136/63; PULSE 79; RESP 19
--- NOTE | 2021-03-26 03:47 | PC.NURSE ---
Addendum entered by Nereida Almanza R.N. 03/26/21 05:43: Patient is now dozing, continues to 'twitch' frequently, bladder scanned for 252ml, Dr Clement informed about Creatinin 4.03, UOP, VS, and patients mentation overnight, no new orders received at this time. Original Note: Shift Note-Patient has been very restless, confused, can not state where he is, and continually attempting to get OOB, unable to comprehend or follow most directions, CIWA 9-12 most of the time, medicated with IV Ativan per protocol. Moaning and thrashing, pulling at lines and tubing. Not specific about c/o pain, sometimes says abdomen or legs medicated with IV Dilaudid, PO oxycodone given once, but needed much prompting to swallow safely. Was not keeping C-pap on effectively, placed on HFNC 3-4L, SpO2 >93%, minimal episodes of severe apnea. SR, VSS, incont urine.
[2021-03-26 04:00] VITALS: BP 136/63; PULSE 79; RESP 21; O2SAT 91
[2021-03-26] MEDS: HYDROMORPHONE 0.5 MG INJ IV (04:01)
[2021-03-26 05:01] LABS: Hemoglobin 7.6 g/dL (13.5-17.5); Mean Corpuscular HGB Conc 32.3 % (30-36); Mean Corpuscular Hemoglobin 31.9 PG (26-34); Mean Corpuscular Volume 98.7 fL (80-100); Platelet Count 184 X10^3/uL (150-400); Red Blood Cell Count 2.38 X10^6/uL (4.5-5.9); Red Cell Distribution Width 15.5 % (11.6-14.8); White Blood Cell Count 20.9 X10^3/uL (4.5-11.0)
[2021-03-26 05:10] LABS: BUN Creatinine Ratio 21.3 (6-22); Blood Urea Nitrogen 86 mg/dL (9-20); Calcium 8.3 mg/dL (8.4-10.2); Carbon Dioxide 20 mmol/L (22-32); Chloride 101 mmol/L (98-107); Estimated Glomerular Filt Rate 14.8 mL/min (>60); Glucose 140 mg/dL (80-110); HEMOLYSIS < 15 (0-50); Magnesium 1.9 mg/dL (1.6-2.3); Potassium 4.5 mmol/L (3.4-5.1); Sodium 134 mmol/L (137-145)
[2021-03-26 05:14] LABS: Hematocrit 23.5 % (41-53)
[2021-03-26] MEDS: THIAMINE 500 MG in SODIUM CHLORIDE 0.9% 50 ML 200 ML IV (05:28)
--- NOTE | 2021-03-26 07:21 | DI.US.S_ITS ---
PROCEDURE: US RENAL COMPLETE INDICATIONS: ABHI TECHNIQUE: Real-time scanning was performed of the kidneys and bladder, with image documentation. COMPARISON: [facility], , RENAL COMPLETE, 01/28/2020, 14:21. FINDINGS: Kidneys: Kidneys are normal in size. Right kidney measures 11.4 cm long; left kidney measures 12.7 cm long. Right renal cortical thickness is 1.3 cm; left renal cortical thickness is 1.2 cm. Renal cortical echotexture is normal. No hydronephrosis or nephrolithiasis. No suspicious solid mass lesions. Bladder: Bladder is decompressed with Wells catheter. Not well evaluated. IMPRESSION: Limited visualization of the kidneys. No hydronephrosis. Dictated by: Emmanuel Echavarria M.D. on 03/26/2021 at 11:58 Approved by: Emmanuel Echavarria M.D. on 03/26/2021 at 12:02
[2021-03-26] MEDS: SODIUM CHLORIDE 0.9% 1,000 ML 100 ML IV (07:47)
[2021-03-26] MEDS: MEROPENEM 500 MG in SODIUM CHLORIDE 0.9% 100 ML 200 ML IV (07:47)
[2021-03-26 08:00] VITALS: BP 144/75; PULSE 81; RESP 21; TEMP 36.3; O2SAT 93
--- NOTE | 2021-03-26 08:25 | DI.RAD.S_ITS ---
PROCEDURE: XR CHEST 1V INDICATIONS: sob TECHNIQUE: One view of the chest was acquired. COMPARISON: [facility], CT, CT CHEST ABD PEL W CON, 03/24/2021, 10:04. [facility], CR, XR CHEST 1V, 03/24/2021, 9:48. [facility], CR, XR CHEST 1V, 05/05/2020, 19:27. FINDINGS: Surgical changes and devices: Cervical spine fixation hardware. Prior screw fractures. Thoracolumbar spine hardware. Lungs and pleura: Patchy airspace opacity with a central predominance, increased. No significant pleural effusion detected. No pneumothorax. Mediastinum: Mediastinal contours appear grossly stable. Heart size is enlarged. Bones and chest wall: No suspicious bony lesions. Overlying soft tissues appear unremarkable. IMPRESSION: Moderate fluid overload/CHF. Cardiomegaly. Dictated by: Emmanuel Echavarria M.D. on 03/26/2021 at 8:58 Approved by: Emmanuel Echavarria M.D. on 03/26/2021 at 9:00
[2021-03-26] MEDS: SODIUM CHLORIDE 0.9% FLUSH 10 ML IV ×2 (09:12→20:05)
[2021-03-26 09:13] LABS: Creatinine Urine Random 58.3 mg/dL; Sodium Urine Random 20 mmol/L (30-90)
--- NOTE | 2021-03-26 10:20 | PC.NURSE ---
Addendum entered by Stalin Link R.N. 03/26/21 17:20: Pt is resting comfortably at this time. Family at bedside. Education given regarding end of life care and available interventions to promote comfort. Family has declined a type copyist visit at this time. Spoke with pt's sister, Rosa, who states their preference on homes is [place]. Original Note: Rec'd pt in bed resting eyes closed. Pt is noted to be mouth and abd breathing. Pt is audibly wheezing. Pt does moan, cry, and withdraw from touch to all extremities. He states no when touched and this is clear. He is otherwise not verbalizing or participating in assessment. AM meds and breakfast held due to lethargy and lack of participation in assessment. O2 sats are greater than 92% on 4L high flow nasal cannula. Pt does have occassional, brief desats to 85% during sleep and snoring. Reviewed case with hospitalist including assessment, VS, lab results, intake and output. Received orders for ABG, CXR. Plan to evaluate those results and potentially place pt on bipap. CXR results reviewed with hospitalist. Orders received to discontinue IVFs. Hospitalist called to pt's sister and discussed assessment findings and clarified goals of care. Orders received for limited intervention/comfort measures.
[2021-03-26] MEDS: LORazepam 2 MG/ML INJ 1 MG IV ×3 (10:30→13:48)
[2021-03-26] MEDS: MORPHINE 2 MG/ML INJ 4 MG IV ×4 (11:13→13:49)
[2021-03-26] MEDS: SCOPOLAMINE 1 PATCH TOP (12:43)
--- NOTE | 2021-03-26 14:34 | CM.IDA ---
Initial DCP Assessment Note Pt is a 70 yo male, resident of [place], brought it by EMS after being found down in his apt, found to be septic w/ possible celluitis vs osteomyelitis, Acute hypoxemic respiratory failure and Acute metabolic encephalopathy PCP: Mariano Keller Payer: TAMIA/MARIS Reviewed chart, pt discussed in multidisciplinary rounds this morning. Patient familiar to this PRESTIDIGITATOR from prior admissions. Patient lives alone in an apt in [place], receives [facility] care givers approx 3 times weekly. Receives meals on wheels and receives some assist from his sister Rosa. According to chart; patient remains withdrawn today, moaning and crying when touched. Goals of care have been reviewed with sister and patient made comfort w/limited interventions. Will follow closely as medical POC unfolds; its possible patient may need SNF stay if he survives this hospitalization. It's unlikely that patient would have enough care to return home w/hospice service. NOELLE Caro Discharge Planning/Care Management CM Discharge Assessment Start: 03/26/21 14:27 Freq: Status: Active Protocol: Document 03/26/21 14:27 CARMITA (Rec: 03/26/21 14:34 CARMITA [id number]) Discharge Planning Assessment Assigned Configuration Management Consultant NOELLE Tate DPOA/Assigned Designee Name sister Riggs Contact Information [phone] Advance Directives? Yes Advance Directives on File Yes Prior Living Arrangements Apartment/Condo Household Members none Type of transporation used prior to Relies on Others admit Independent with ADL's No Is patient alert and oriented? No: Currently not oriented Needs Assistance With Bathing,Grooming,Meal Prep, Toileting,Managing Medications ,Home Chores / Shopping Barriers to Discharge Yes Comment Unclear at this time, patient has been transitioned to limited interventions/comfort today Transportation Arrangement TBD
--- NOTE | 2021-03-26 14:44 | PM.PN.1 ---
Subjective Subjective Date Patient Seen: 03/26/21 Time Patient Seen: 08:00 Interval history: This morning he was altered, worse than yesterday. He was in more respiratory distress. He was not able to arouse to commands. Family was called, sister, and his prognosis was discussed with her, that he came in with sepsis, that he has worsening renal function, worsening mental function, worsening respiratory function, and congestive heart failure. She notes he has been declining prior to coming in. After discussion of goals of care it was agreed that CPR was not appropriate or indicated as it would occur secondary to multiorgan failure. She was in agreement that the priority should be to keep him comfortable. Exam Vital Signs (past 8 hours): - 03/26/21 08:00 Temperature 97.4 F L Pulse Rate 81 Respiratory Rate 21 Blood Pressure 144/75 H Pulse Oximetry 93 Fraction of Inspired Oxygen 25 Oxygen Delivery Method High Flow Nasal Cannula Oxygen Flow Rate 2 Narrative Exam Narrative: GEN: altered, ill appearing, in pain HEENT: moist mucous membranes, PERRL NECK: trachea midline, no JVD CV: regular rate and rhythm PULM: coarse breath sounds bilaterally with crackles EXT; bilateral swelling, venous stasis changes with superimposed erythema, pain, swelling, maceration, and foul smelling NEURO: aletered, obtunded Objective Labs Result Diagrams: 03/26/21 04:25 03/26/21 04:25 Labs: Laboratory Results - last 24 hr 03/25/21 03/26/21 03/26/21 15:12 04:25 04:25 WBC 20.9 H RBC 2.38 L Hgb 7.6 L Hct 23.5 L MCV 98.7 MCH 31.9 MCHC 32.3 RDW 15.5 H Plt Count 184 Sodium 134 L Potassium 4.5 Chloride 101 Carbon Dioxide 20 L BUN 86 H Creatinine 4.03 H Estimated GFR 14.8 L BUN/Creatinine Ratio 21.3 Glucose 140 H Calcium 8.3 L Magnesium 1.9 Ur Random Sodium Urine Creatinine Random Vancomycin 16.3 03/26/21 09:00 WBC RBC Hgb Hct MCV MCH MCHC RDW Plt Count Sodium Potassium Chloride Carbon Dioxide BUN Creatinine Estimated GFR BUN/Creatinine Ratio Glucose Calcium Magnesium Ur Random Sodium 20 L Urine Creatinine 58.3 Random Vancomycin [facility] Medical History Arthritis BPH w urinary obs/LUTS Cellulitis of left leg Chronic kidney disease, stage 4 (severe) Chronic UTI Depression Diabetes Duodenal ulcer History of cervical fracture History of UTI Hyperparathyroidism Osteoarthritis Peripheral vascular disease Renal disease Surgical History H/O cervical spine surgery History of back surgery History of colectomy History of colon surgery History of fusion of cervical spine History of knee replacement Family History Mother Kidney failure Diabetes mellitus Social History marital status: number of children: 4 household members: none occupational status: employed Smoking Status: Former smoker alcohol intake: current caffeine: Yes Assessment & Plan Assessment & Plan narrative: 1. Sepsis, celluitis, possible osteomyelitis with bacteremia -patient has bilateral erythematous, painful legs -wound culture showed gram negative rods, blood culture with strep species -organ dysfunction with encephalopathy and abhi -currently treat with vancomycin, meropenem, clinda pending cultures -ESR >assay -CT shows no abscess -MRI bilaterally feet to eval for osteomyelitis unable to obtain 2. Acute metabolic encephalopathy -presume from sepsis, also consider wernicke's encephalopathy -treat sepsis as above -treat wernicke's with high dose thiamine 3. Acute hypoxemic respiratory failure, worsening -etiology llikely related to worsening renal function and sepsis -diuresis was attempted and resulted in worsening renal function and worsening respiratory function 4. ABHI on CKD stage 4 -secondary to sepsis -did get vancomycin and did get IV contrast with CT scan -monitor renal function closely -dialysis not within goals of care 5. Elevatated troponin -likely from demand ischemia -continue to trend troponins 6. Alcohol abuse -[facility] protocol -MVI, thiamine, folate -continue ativan PRN Discussion was had on 03/26 with sister who is POA. He has declined in terms of his respiratory status with worsening CHF, worsening renal function, worsening mental status. 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 He has very poor prognosis. CPR and intubation are unlikely to improve his health given his multiorgan failure. He is appropriate for comfort care and family is in agreement. Comfort measures were ordered. Time Spent With Patient Critical Care time: I spent a total of [] minutes of critical care time on this patient's care today; this time is exclusive of procedural time.
--- NOTE | 2021-03-26 15:58 | P.DN_ITS ---
Discharge Summary History of Illness Chief Complaint: Trauma Narrative: Mr. Tubbs is a 70M with H former smoker, CKD stage 4, alcohol abuse, morbid obesity who presents after a fall. He has chronic leg wounds. He had caregiver who came to check on him and found him on the floor and very ill appearing. He is unable to state what happened. He drinks significantly. He has had pain in his legs In the ED workup was done vitals initially notalbe for respiratory rate in the 30s, sats in the 80s, he was placed on BIPAP and then heated high flow. Labs notable for WBC 30.8, hgb 9.1, creatinine 3.15. Lactate 1.5. trop 0.094. BNP 10,100. Procal 20.5. UA did not show any clear infection. Chest xray showed no acute infection. CT head showed no bleeding. CT c-spine negative. CT torso shows no acute process to explain presentation. He was ordered for vancomycin and meropenem. He was not able to get full IV sepsis fluid bolus given his respiratory status and concern for being volume overload. CT legs showed no abscess. He was admitted for further treatment. Hospital Course Date of Admission: 03/24/21 12:43 Primary care provider: Mariano Keller MD Consults: 03/26/21 10:03 Consult to Discharge Planning Routine Comment: Consult to Hospice Referral Urgent Comment: Discharge Diagnosis: 1. Sepsis, cellulitis 2. Acute metabolic encephalopathy 3. Acute hypoxemic respiratory failure, acute diastolic CHF exacerbation, aortic stenosis 4. ABHI on CKD stage 4 5. Elevated troponin secondary to demand ischemia 6. Alcohol abuse Hospital Course: Mr. Tubbs came in to the hospital with sepsis from cellulitis. He also was found to have acute respiratory failure, acute CHF exacerbation, and acute kidney injury. He at baseline had been declining and in quite poor health. He was treated with IV antibiotics and his volume status was attempted to be controlled. However he worsened with worsening encephalopathy, CHF, and kidney injury. His prognosis was quite poor, and after discussion with his family deci juvencio was made to have patient be on comfort care. He at 2124 on 03/26 comfortable with family at bedside. Objective Labs Result Diagrams: 03/26/21 04:25 03/26/21 04:25
[2021-03-26] MEDS: MORPHINE 4 MG/ML INJ IV ×2 (16:20→20:03)
--- NOTE | 2021-03-26 22:15 | PC.NURSE ---
1999 Patient medicated for maintenance of pain control. Family with patient, and relates that they want to make sure we stay ahead of pain. Patient starting to move LLE. 2113 Family using call light to state that they think that patient has . No heart rate and no respirations. Coordinator Jessica notified. 2124 Dr. Velasquez notified of patients .
== END 2021-03-26 21:14 | disposition expired | DRG 871 ==
LOC: ED 10:56 → AC 12:44 → ICU 14:10
PROVIDERS: Internal Medicine Critical Care Medicine; Admitting Provider Internal Medicine; Emergency Provider Emergency Medicine; PCP Student in an Organized Health Care Education/Training Program; Referring Provider Emergency Medicine; Visit Provider Internal Medicine
DX: A41.9 Sepsis, unspecified organism (principal); G93.41 Metabolic encephalopathy; J96.01 Acute respiratory failure with hypoxia; I50.33 Acute on chronic diastolic (congestive) heart failure; N17.9 Acute kidney failure, unspecified; N18.4 Chronic kidney disease, stage 4 (severe); L03.116 Cellulitis of left lower limb; L03.115 Cellulitis of right lower limb; F11.20 Opioid dependence, uncomplicated; Z68.41 Body mass index [BMI] 40.0-44.9, adult; L97.929 Non-pressure chronic ulcer of unspecified part of left lower leg with unspecified severity; I24.8 Other forms of acute ischemic heart disease; N13.8 Other obstructive and reflux uropathy; R65.20 Severe sepsis without septic shock; E11.22 Type 2 diabetes mellitus with diabetic chronic kidney disease; F10.10 Alcohol abuse, uncomplicated; I12.9 Hypertensive chronic kidney disease with stage 1 through stage 4 chronic kidney disease, or unspecified chronic kidney disease; E66.9 Obesity, unspecified; E11.622 Type 2 diabetes mellitus with other skin ulcer; N40.1 Benign prostatic hyperplasia with lower urinary tract symptoms; I35.0 Nonrheumatic aortic (valve) stenosis; S20.219A Contusion of unspecified front wall of thorax, initial encounter; M54.9 Dorsalgia, unspecified; W19.XXXA Unspecified fall, initial encounter; Z20.822 Contact with and (suspected) exposure to COVID-19; Z79.84 Long term (current) use of oral hypoglycemic drugs; Z87.891 Personal history of nicotine dependence
CPT/HCPCS: 36415; 36600; 70450; 71045; 71260; 72125; 73700; 74177; 76770; 80048; 80053; 80202; 80305; 80320; 81001; 82550; 82553; 82570; 82728; 82805; 82962; 83036; 83540; 83550; 83605; 83735; 83880; 84145; 84300; 84484; 85007; 85025; 85027; 85379; 85651; 86140; 86850; 86900; 86901; 87040; 87070; 87075; 87077; 87147; 87150; 87186; 87205; 87633; 87635; 87797; 93005; 93010; 93970; 94660; 94760; 94762; 96361; 96365; 96372; 96375; 99285; 99291; 99292; C9803; J0878; J1170; J1335; J1650; J1815; J1940; J2060; J2185; J2270; J2405; Q5106